=== PATIENT | male | born 1975 | race Caucasian/White ===

== ENCOUNTER 2016-05-02 13:30 | Inpatient (IN) | payer MEDICARE, MEDICAID ==
--- NOTE | 2016-05-02 14:08 | ED ---
General Adult HPI - General Chief complaint: Psychiatric Symptoms Stated complaint: mental health Time Seen by Provider: 05/02/16 14:00 Source: patient, RN notes reviewed Mode of arrival: ambulatory Limitations: no limitations - History of Present Illness Initial comments: Patient 41-year-old male who presents emergency room today with a chief complaint of suicidal ideation. He does admit this been hearing voices. He states started approximately 2-3 days ago. He states the voices are telling him that he can get away with murder. He states not having thoughts of specifically harming anyone. He states he is having thoughts of hurting himself. He states he would take a bunch of pills. Patient has been on his medications as prescribed. He states that he does have a therapist psychiatrist that he does see. Patient denies any other physical complaints. Patient denies any recent fever, chills, shortness of breath, chest pain, back pain, abdominal pain, nausea or vomiting, numbness or tingling, dysuria or hematuria, constipation or diarrhea, headaches or visual changes, or any other complaints. - Related Data Home Medications Medication Instructions Recorded Confirmed Mirtazapine [Remeron] 45 mg PO HS 02/28/16 05/02/16 Atorvastatin [Lipitor] 20 mg PO DAILY 05/02/16 05/02/16 Omeprazole 40 mg PO DAILY 05/02/16 05/02/16 Venlafaxine HCl ER [Effexor XR] 300 mg PO DAILY 05/02/16 05/02/16 Allergies Allergy/AdvReac Type Severity Reaction Status Date / Time codeine Allergy Swelling Verified 05/02/16 14:31 furosemide [From Lasix] Allergy Rash/Hives Verified 05/02/16 14:31 haloperidol [From Haldol] Allergy Unknown Verified 05/02/16 14:31 haloperidol lactate Allergy Unknown Verified 05/02/16 14:31 [From Haldol] prochlorperazine edisylate Allergy Swelling Verified 05/02/16 14:31 [From Compazine] prochlorperazine maleate Allergy Swelling Verified 05/02/16 14:31 [From Compazine] milk AdvReac Severe Diarrhea Verified 05/02/16 14:31 Milk Containing Products AdvReac Severe Diarrhea Verified 05/02/16 14:31 Review of Systems ROS Statement: Those systems with pertinent positive or pertinent negative responses have been documented in the HPI. ROS Other: All systems not noted in ROS Statement are negative. Past Medical History Past Medical History: COPD, Seizure Disorder Additional Past Medical History / Comment(s): History of seizures-per patient, his last seizure was in 2011, Hepatitis C, Degenerative disc disease in back, possible arthritis in knees, hips and arms. History of Any Multi-Drug Resistant Organisms: None Reported Past Surgical History: Appendectomy Additional Past Surgical History / Comment(s): Appendectomy-1996, eye surgery- 1998 Past Anesthesia/Blood Transfusion Reactions: No Reported Reaction Past Psychological History: Anxiety, Bipolar, Depression Smoking Status: Current every day smoker Past Alcohol Use History: Rare Additional Past Alcohol Use History / Comment(s): Patient reports he drinks approximately 4 times a year-last drink per patient was this passed wednesday. 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 pt states that he is buying them off the street - Past Family History Brother(s) Additional Family Medical History / Comment(s): Chronic alcoholism Sister(s) Additional Family Medical History / Comment(s): Chronic alcoholism Daughter(s) Additional Family Medical History / Comment(s): One daughter healthy Son(s) Additional Family Medical History / Comment(s): One son healthy Father History Unknown: Yes Family Medical History: AICD/Pacemaker, Myocardial Infarction ([place]) Additional Family Medical History / Comment(s): Schizophrenia. Per patient, his father at the age of 59 Mother History Unknown: Yes Family Medical History: No Reported History Additional Family Medical History / Comment(s): HPV General Exam - General Exam Comments Initial Comments: General: The patient is awake and alert, in no distress, and does not appear acutely ill. Eye: Pupils are equal, round and reactive to light, extra-ocular movements are intact. No nystagmus. There is normal conjunctiva bilaterally. No signs of icterus. Ears, nose, mouth and throat: There are moist mucous membranes and no oral lesions. Neck: The neck is supple, there is no tenderness or JVD. Cardiovascular: There is a regular rate and rhythm. No murmur, rub or gallop is appreciated. Respiratory: Lungs are clear to auscultation, respirations are non-labored, breath sounds are equal. No wheezes, stridor, rales, or rhonchi. Musculoskeletal: Normal ROM, no tenderness. Strength 5/5. Sensation intact. Pulses equal bilaterally 2+. Neurological: A&O x 3. CN II-XII intact, There are no obvious motor or sensory deficits. Coordination appears grossly intact. Speech is normal. Skin: Skin is warm and dry and no rashes or lesions are noted. Psychiatric: Cooperative, appropriate mood & affect, normal judgment. Limitations: no limitations Course Vital Signs 05/02/16 13:49 Temperature 98.5 F Pulse Rate 102 H Respiratory 20 Rate Blood Pressure 130/79 O2 Sat by Pulse 99 Oximetry Medical Decision Making - Medical Decision Making Patient's been seen by mental health. They recommend the patient be admitted. - Lab Data Lab Results 05/02/16 Range/Units 14:19 Urine Opiates Screen Not Detected (NotDetected) Ur Oxycodone Screen Not Detected (NotDetected) Urine Methadone Screen Not Detected (NotDetected) Ur Propoxyphene Screen Not Detected (NotDetected) Ur Barbiturates Screen Not Detected (NotDetected) U Tricyclic Antidepress Not Detected (NotDetected) Ur Phencyclidine Scrn Not Detected (NotDetected) Ur Amphetamines Screen Not Detected (NotDetected) U Methamphetamines Scrn Not Detected (NotDetected) U Benzodiazepines Scrn Detected H (NotDetected) Urine Cocaine Screen Not Detected (NotDetected) U Marijuana (THC) Screen Not Detected (NotDetected) Disposition Clinical Impression: Suicidal ideation Disposition: TRANSFER TO PSYCH HOSP/UNIT Condition: Stable Referrals: None,Stated [Primary Care Provider] - 1-2 days Time of Disposition: 15:46
[2016-05-02] MEDS ORDERED: ZIPRASIDONE 20 MG VIAL IM PRN (17:31)
[2016-05-02] MEDS ORDERED: MAGNESIUM HYDROXIDE 2,400 MG/10 ML CUP PO PRN (17:31)
[2016-05-02] MEDS ORDERED: ACETAMINOPHEN TAB 325 MG TAB PO PRN (17:31)
[2016-05-02] MEDS ORDERED: MAG HYDROX/AL HYDROX/SIMETH 30 ML CUP PO PRN (17:31)
[2016-05-02] MEDS: NICOTINE 14MG/24HR PATCH TRANSDERM SCH (18:13)
[2016-05-02] MEDS ORDERED: LORazepam 2 MG/ML SYRINGE IM PRN (23:39)
[2016-05-02] MEDS: MIRTAZAPINE 15 MG TAB PO SCH (23:41)
[2016-05-03] MEDS: LORazepam 1 MG TAB PO PRN ×3 (00:23→16:14)
[2016-05-03] MEDS: PANTOPRAZOLE 40 MG TABLET PO SCH (08:30)
[2016-05-03] MEDS: ATORVASTATIN 20 MG TAB PO SCH (08:30)
[2016-05-03] MEDS: NICOTINE 14MG/24HR PATCH TRANSDERM SCH (08:30)
[2016-05-03] MEDS: VENLAFAXINE HCL ER 150 MG CAP PO SCH (08:31)
[2016-05-03 10:56] LABS: Basophils # (A) 0.1 k/uL (0-0.2); Basophils % (A) 1 %; CH 29.3; CHCM 33.1; Eosinophils # (A) 0.7 k/uL (0-0.7); Eosinophils % (A) 5 %; HGB 13.7 gm/dL (13.0-17.5); Luc # (Auto) 0.14; Luc % (Auto) 1; Lymphocytes # (A) 3.1 k/uL (1.0-4.8); Lymphocytes % (A) 22 %; MCH 28.4 pg (25.0-35.0); MCHC 31.9 g/dL (31.0-37.0); MCV 88.9 fL (80.0-100.0); Mean Platelet Volume 9.6; Monocytes # (A) 0.7 k/uL (0-1.0); Monocytes % (A) 5 %; Neutrophils # (A) 9.4 k/uL (1.3-7.7); Neutrophils % (A) 67 %; RBC 4.84 m/uL (4.30-5.90); RDW 13.3 % (11.5-15.5); WBC 14.1 k/uL (3.8-10.6); WBC (Perox) 14.46
[2016-05-03 11:06] LABS: ALT 67 U/L (21-72); AST 34 U/L (17-59); Alkaline Phosphatase 146 U/L (38-126); Anion Gap 11 mmol/L; Blood Urea Nitrogen 13 mg/dL (9-20); Calcium 9.5 mg/dL (8.4-10.2); Carbon Dioxide 25 mmol/L (22-30); Chloride 107 mmol/L (98-107); Glucose 100 mg/dL (74-99); Non-African American GFR(MDRD) >60 (>60 ml/min/1.73 sqM); Potassium 4.2 mmol/L (3.5-5.1); Sodium 143 mmol/L (137-145); Total Bilirubin 0.4 mg/dL (0.2-1.3); Total Protein 7.1 g/dL (6.3-8.2)
--- NOTE | 2016-05-03 16:06 | P.HP ---
Psychiatric H&P - . H&P Date: 05/03/16 History & Physical: Allergies Allergy/AdvReac Type Severity Reaction Status Date / Time codeine Allergy Swelling Verified 05/03/16 08:58 furosemide [From Lasix] Allergy Rash/Hives Verified 05/03/16 08:58 haloperidol [From Haldol] Allergy Unknown Verified 05/03/16 08:58 haloperidol lactate Allergy Unknown Verified 05/03/16 08:58 [From Haldol] prochlorperazine edisylate Allergy Swelling Verified 05/03/16 08:58 [From Compazine] prochlorperazine maleate Allergy Swelling Verified 05/03/16 08:58 [From Compazine] milk AdvReac Severe Diarrhea Verified 05/03/16 08:58 Milk Containing Products AdvReac Severe Diarrhea Verified 05/03/16 08:58 Vital Signs Temp 98.1 F 05/03/16 06:31 Pulse 91 05/03/16 06:31 Resp 16 05/03/16 06:31 BP 125/74 05/03/16 06:31 Pulse Ox 99 05/02/16 13:49 Intake & Output 05/02/16 05/03/16 05/03/16 18:59 06:59 18:59 Weight 120.9 kg 121.6 kg Laboratory Last Values WBC 14.1 k/uL (3.8-10.6) H 05/03/16 10:32 RBC 4.84 m/uL (4.30-5.90) 05/03/16 10:32 Hgb 13.7 gm/dL (13.0-17.5) 05/03/16 10:32 Hct 43.0 % (39.0-53.0) 05/03/16 10:32 MCV 88.9 fL (80.0-100.0) 05/03/16 10:32 MCH 28.4 pg (25.0-35.0) 05/03/16 10:32 MCHC 31.9 g/dL (31.0-37.0) 05/03/16 10:32 RDW 13.3 % (11.5-15.5) 05/03/16 10:32 Plt Count 193 k/uL (150-450) 05/03/16 10:32 Neutrophils % 67 % 05/03/16 10:32 Lymphocytes % 22 % 05/03/16 10:32 Monocytes % 5 % 05/03/16 10:32 Eosinophils % 5 % 05/03/16 10:32 Basophils % 1 % 05/03/16 10:32 Neutrophils # 9.4 k/uL (1.3-7.7) H 05/03/16 10:32 Lymphocytes # 3.1 k/uL (1.0-4.8) 05/03/16 10:32 Monocytes # 0.7 k/uL (0-1.0) 05/03/16 10:32 Eosinophils # 0.7 k/uL (0-0.7) 05/03/16 10:32 Basophils # 0.1 k/uL (0-0.2) 05/03/16 10:32 Sodium 143 mmol/L (137-145) 05/03/16 10:32 Potassium 4.2 mmol/L (3.5-5.1) 05/03/16 10:32 Chloride 107 mmol/L (98-107) 05/03/16 10:32 Carbon Dioxide 25 mmol/L (22-30) 05/03/16 10:32 Anion Gap 11 mmol/L 05/03/16 10:32 BUN 13 mg/dL (9-20) 05/03/16 10:32 Creatinine 0.92 mg/dL (0.66-1.25) 05/03/16 10:32 Est GFR (MDRD) Af Amer >60 (>60 ml/min/1.73 sqM) 05/03/16 10:32 Est GFR (MDRD) Non-Af >60 (>60 ml/min/1.73 sqM) 05/03/16 10:32 Glucose 100 mg/dL (74-99) H 05/03/16 10:32 Calcium 9.5 mg/dL (8.4-10.2) 05/03/16 10:32 Total Bilirubin 0.4 mg/dL (0.2-1.3) 05/03/16 10:32 AST 34 U/L (17-59) 05/03/16 10:32 ALT 67 U/L (21-72) 05/03/16 10:32 Alkaline Phosphatase 146 U/L (38-126) H 05/03/16 10:32 Total Protein 7.1 g/dL (6.3-8.2) 05/03/16 10:32 Albumin 4.0 g/dL (3.5-5.0) 05/03/16 10:32 TSH 1.160 mIU/L (0.465-4.680) 05/03/16 10:32 Urine Opiates Screen Not Detected (NotDetected) 05/02/16 14:19 Ur Oxycodone Screen Not Detected (NotDetected) 05/02/16 14:19 Urine Methadone Screen Not Detected (NotDetected) 05/02/16 14:19 Ur Propoxyphene Screen Not Detected (NotDetected) 05/02/16 14:19 Ur Barbiturates Screen Not Detected (NotDetected) 05/02/16 14:19 U Tricyclic Antidepress Not Detected (NotDetected) 05/02/16 14:19 Ur Phencyclidine Scrn Not Detected (NotDetected) 05/02/16 14:19 Ur Amphetamines Screen Not Detected (NotDetected) 05/02/16 14:19 U Methamphetamines Scrn Not Detected (NotDetected) 05/02/16 14:19 U Benzodiazepines Scrn Detected (NotDetected) H 05/02/16 14:19 Urine Cocaine Screen Not Detected (NotDetected) 05/02/16 14:19 U Marijuana (THC) Screen Not Detected (NotDetected) 05/02/16 14:19 05/03/16 15:56 IDENTIFYING DATA: 41-year-old male patient HPI: Patient admitted to the inpatient psychiatric unit [facility] on a voluntary basis with depression and thoughts of suicide. Patient states he is that he's been depressed for over the last months time. He says life stressors are being away from his kids and his kids had recently gotten in a car accident, they are okay. He relays that he was starting to have thoughts of suicide. He admits to racing thoughts and has been hearing things like his name being called and voices telling him that he can get away with it and it won 't show up on his drug test. He states that the voices do not command him to do bad things. He says he is also feels like he's had no filter lately and he' s been impulsive. He does describe racing thoughts at night and difficulty with sleep. PAST PSYCHIATRIC HISTORY: Patient doesn't history of bipolar disorder, he states the depressive episodes greatly outnumber the manic episodes by about 10- 1. He is most recently been on Effexor XR 300 mg daily and Remeron 45 motives at bedtime. He was on Depakote in the past which she did not like because of side effects. Most recently is seeing Dr. Deena castanead at [facility] and a counselor Debby. He was on Suboxone and he's been off of that for about a month, he was tapered off. He has tried Seroquel in the past which did help him with sleep he took up to 300 mg which made him feel groggy. PMH: COPD, degenerative disc disease, gastroesophageal reflux disease, hypertension, hypercholesterolemia ALLERGIES: Codeine, Haldol, Lasix, Compazine, milk containing products MEDICATIONS: Tylenol when necessary, Maalox when necessary, Lipitor, Ativan when necessary, milk of magnesia when necessary, Remeron, Effexor XR, Habitrol, Geodon when necessary CHEMICAL DEPENDENCY HISTORY: Patient reports history of heroin use daily in the past, he's been clean for about 2 years. He plans on keeping his sobriety. FAMILY PSYCHIATRIC HISTORY: Dad with schizophrenia. FAMILY CHEMICAL DEPENDENCY HISTORY: Brothers with alcoholism SOCIAL HISTORY: He reports that he has 2 children who are in [place] with her mom. They are 18 and 16. He does keep in some contact with his daughter. He is , his is in snf. He does keep in contact with her. He has 2 previous marriages which ended in divorce. He lives in his own apartment. He is currently on disability for mental health. MENTAL STATUS EXAM: He is alert and cooperative with the interview. His speech is fluent, not rapid or pressured. Thought processes are organized. His mood is described as "pretty decent." He denies any thoughts of harm to self or others. He denies any current hallucinations. He does state that in his apartment he thought he saw a ghost/shadow. He also reports some recent auditory hallucinations as above in the history of present illness. Cognitively , he appears very grossly intact. His insight is adequate, judgment shows evidence of recent impairment. STRENGTHS/WEAKNESSES: Strengths-seeking treatment; weaknesses-coping skills INTELLECTUAL FUNCTIONING: average IMPRESSIONS: AXIS I : Bipolar disorder, depressed with recent psychosis symptoms; history of opioid use disorder AXIS II: deferred AXIS III: COPD, degenerative disc disease, gastroesophageal reflux disease, hypertension, hypercholesterolemia AXIS IV: family AXIS V: 30 PLAN: patient admitted to the inpatient psychiatric unit [facility] on a voluntary basis with depression and thoughts of suicide. We'll monitor regarding any suicidal ideations. He'll be on SP 15 minute precautions. Baseline laboratory workup will be done the patient and medical consultation will be ordered. We will maintain Effexor XR and Remeron is current for depression. We will add Abilify 5 mg at bedtime to help with mood stability, augmentation regarding depression and recent psychosis symptoms. We will trial Abilify instead of Seroquel due to concerns of drug interaction with Seroquel prolonged QT interval. We will look into support systems. Dr. Paniagua will initiate care this patient starting tomorrow. Estimated length of stay is 5-7 days. Prognosis is guarded.
--- NOTE | 2016-05-03 19:53 | CONS ---
DATE OF CONSULTATION: 05/02/2016 SUBJECTIVE: A 41-year-old white male who presents with suicidal ideations for medical management consult. He states that he has been living alone by himself and he became very depressed, hearing voices telling him to hurt himself or others at which time he was brought to the hospital for admission. Medications the psychiatrist has him on includes: 1. Remeron 45 q.h.s. 2. Effexor-XR 300 daily. 3. He takes omeprazole 40 daily. 4. Lipitor 20 for dyslipidemia. 5. He smokes he is requesting nicotine patch. ALLERGIES: CODEINE, LASIX, HALDOL, COMPAZINE, MILK. REVIEW OF SYSTEMS: 14 point review of systems negative except as stated in the HPI. PAST MEDICAL HISTORY: History of nicotine addiction, seizure disorder, COPD, hepatitis C and lumbar degenerative disc disease, osteoarthritis of knees, hips and arms. SURGERIES: Appendectomy, and eye surgery, history of anxiety, bipolar depression. FAMILY HISTORY: Brother with alcoholism, sister with alcoholism. Daughter is healthy. Son is healthy. Father AICD pacemaker myocardial infarction. VITAL SIGNS: Temperature 98.2, pulse is 90s to 100 hundreds, respiratory rate 16 to 20, blood pressure 120s to 130s over 70s. O2 99% on room air. CARDIOVASCULAR: S1, S2. LUNGS: Mild wheeze x4. ENDOCRINE: BMI is over 40. PSYCHIATRY: Giving appropriate answers. VASCULAR: Normal dorsalis pedis, posterior tibial, and radial pulse. ASSESSMENT: 1. Suicidal ideations. 2. Chronic obstructive pulmonary disease. 3. Nicotine addiction. 4. Gastroesophageal reflux disease. 5. Dyslipidemia. 6. Possible chronic obstructive pulmonary disease. Nicotine patch. Monitor for other medical problems. Continue on Lipitor and Prilosec p.r.n. He appears to be stable at this time.
[2016-05-03] MEDS: MIRTAZAPINE 15 MG TAB PO SCH (20:53)
[2016-05-03] MEDS: IBUPROFEN 400 MG TAB PO PRN (20:53)
[2016-05-03] MEDS: ARIPiprazole 5 MG TAB PO SCH (20:53)
[2016-05-04] MEDS: LORazepam 1 MG TAB PO PRN ×2 (02:14→10:23)
[2016-05-04] MEDS: ATORVASTATIN 20 MG TAB PO SCH (09:44)
[2016-05-04] MEDS: VENLAFAXINE HCL ER 150 MG CAP PO SCH (09:46)
[2016-05-04] MEDS: NICOTINE 14MG/24HR PATCH TRANSDERM SCH (09:46)
[2016-05-04] MEDS: IBUPROFEN 400 MG TAB PO PRN ×2 (09:46→21:06)
[2016-05-04] MEDS: PANTOPRAZOLE 40 MG TABLET PO SCH (09:46)
--- NOTE | 2016-05-04 16:17 | P.PN ---
Progress Note - Text CLINICAL PROBLEMS: Mr. Phillips is a 41-year-old male who presented to unit voluntarily with complaints of depression and thoughts of suicide. I reviewed the medical records from [facility]. He has a diagnosis of opiate use disorder, major depression, sedative, hypnotic and anxiolytic use disorder as well as unspecified housing and economic problems. His outpatient psychiatrist tapered and discontinued Suboxone on 04/21/2016 because Mr. Ralph's urine drug screen was persistently positive for nonprescribed benzodiazepines. He stated that he sought admission because he was feeling more depressed and lonely. He stated if he didn't take action he was afraid that he may act out and hurt himself. He denied that his presentation was related to the taper of Suboxone. 24 HOUR EVENTS: He remains on suicide precautions with 15 minute checks. He has not shown any self-harm or aggressive behaviors. He has been compliant with treatment. EXAMINATION: He presented as a casually groomed moderately obese 41-year-old male wearing a john over his head. He maintained eye contact and attended to the interview. He had no distinguishing features or prominent physical abnormalities. He had a blunted but bright facial expression. He was alert and oriented to person, place and time. He showed no abnormality of psychomotor behavior he had a slow and steady gait. His speech was spontaneous with normal rate, rhythm and volume. His affect was depressed but stable and appropriate. He denied current suicidal ideation or wishes. He denied homicidal ideation. He expressed depressive cognitions including hopelessness and helplessness. He denied obsessions or ruminations. He denied ideas of reference and did not express paranoid ideation. He expressed no delusional beliefs. His thinking was abstract and his clothes associations were coherent and logical. He denied hallucinations and did not appear to be responding to internal stimuli. PERTINENT DATA: His urine drug screen was positive for benzodiazepines. His alkaline phosphatase was elevated 146. Dr. Mccallum started Abilify for augmentation of his antidepressants; he denied side effects to the Abilify. ASSESSMENT: He is a 41-year-old man who has a history of opiate use disorder and sedatives, hypnotic and anxiolytic use disorder. He presented with complaints of depression and suicidal ideation that he attributes to loneliness and lack of social supports. Of depression and suicidal ideation rapidly remitted following admission. He is minimizing his substance use and denies he has a problem with benzodiazepines. PLAN: Continue Abilify 5 mg at bedtime, Remeron 45 mg at bedtime and Effexor 300 mg daily. Continue 15 minute checks. Encourage participation in therapeutic groups and activities. Evaluate clinical status and response to treatment on a daily basis.
[2016-05-04] MEDS: MIRTAZAPINE 15 MG TAB PO SCH (21:06)
[2016-05-04] MEDS: ARIPiprazole 5 MG TAB PO SCH (21:06)
[2016-05-05] MEDS: LORazepam 1 MG TAB PO PRN (02:40)
[2016-05-05 03:11] VITALS: BP 141/81; PULSE 84; RESP 20; TEMP 97.8
[2016-05-05] MEDS: VENLAFAXINE HCL ER 150 MG CAP PO SCH (08:34)
[2016-05-05] MEDS: ATORVASTATIN 20 MG TAB PO SCH (08:34)
[2016-05-05] MEDS: NICOTINE 14MG/24HR PATCH TRANSDERM SCH (08:34)
[2016-05-05] MEDS: PANTOPRAZOLE 40 MG TABLET PO SCH (08:34)
--- NOTE | 2016-05-05 11:18 | P.DS ---
Providers Date of admission: 05/02/16 16:38 Attending physician: Bandar Paniagua MD Consults: 05/02/16 17:31 Consult Physician Routine Consulting Provider: Bandar Camacho Consult Reason/Comments: follow up H & P Do you want consulting provider notified?: Yes 05/04/16 14:23 Consult Physician Routine Consulting Provider: Bandar Camacho Consult Reason/Comments: Patient requesting opiate pain medication for back pain. Do you want consulting provider notified?: Yes Primary care physician: Stated None - Discharge Diagnosis(es) (1) Sedative, hypnotic or anxiolytic abuse Current Visit: Yes Status: Chronic (2) Suicidal ideation Current Visit: Yes Status: Resolved (3) Major depressive disorder Current Visit: No Status: Resolved (4) Opiate abuse, episodic Current Visit: No Status: Chronic Hospital Course: He is a 41-year-old male who presented to the ED with complaints of depression and thoughts of suicide. He complained of being depressed for several months prior to admission and the depression becoming worse over the holidays. He attributes loneliness, social isolation and estrangement from his children as the contributors to his depression. He is established with [facility]. His diagnoses include opiate use disorder, major depression, sedative, hypnotic and anxiolytic use disorder as well as unspecified housing and economic problems. His outpatient psychiatrist recently tapered and discontinued Suboxone because his urine drug screen not persistently positive for nonprescribed benzodiazepines. We admitted him to the psychiatric unit care of this typewriter repairer. He received a biopsychosocial assessment. The windows consultant alarm adjuster completed a physical exam and medical history. The alarm adjuster diagnoses included chronic obstructive pulmonary disease, gastroesophageal reflux disease and dyslipidemia. We continued his outpatient prescriptions of mirtazapine 45 mg at bedtime and venlafaxine 300 mg daily. We added Abilify 5 mg at bedtime for augmentation of his antidepressants. He participated in therapeutic groups and activities. He posed no management problem and demonstrated no disruptive or self-harm behaviors. His mood quickly improved. At the time of discharge he denied feeling depressed or having thoughts of or suicide. He wished to be discharged apart because he enrolled in a computer class at [facility]. He plans to continue mental health treatment through [facility]. Patient Condition at Discharge: Good Plan - Discharge Summary New Discharge Prescriptions: ARIPiprazole [Abilify] 5 mg PO HS #30 tab Nicotine 14Mg/24Hr Patch [Habitrol] 1 patch TRANSDERM DAILY #7 patch Discharge Medication List Mirtazapine [Remeron] 45 mg PO HS 02/28/16 [History] Atorvastatin [Lipitor] 20 mg PO DAILY 05/02/16 [History] Omeprazole 40 mg PO DAILY 05/02/16 [History] Venlafaxine HCl ER [Effexor XR] 300 mg PO DAILY 05/02/16 [History] ARIPiprazole [Abilify] 5 mg PO HS #30 tab 05/05/16 [Rx] Nicotine 14Mg/24Hr Patch [Habitrol] 1 patch TRANSDERM DAILY #7 patch 05/05/16 [ Rx] Follow up Appointment(s)/Referral(s): None,Stated [Primary Care Provider] - 1-2 days Discharge Disposition: HOME SELF-CARE
== END 2016-05-05 13:34 | disposition home or self-care (01) | DRG 897 ==
LOC: EC 13:30 → 3MHU 16:38
PROVIDERS: ADMIT Psychiatry & Neurology Psychiatry; ATTEND Psychiatry & Neurology Psychiatry
DX: F13.10 Sedative, hypnotic or anxiolytic abuse, uncomplicated (principal); F11.10 Opioid abuse, uncomplicated; R45.851 Suicidal ideations; F31.9 Bipolar disorder, unspecified; J44.9 Chronic obstructive pulmonary disease, unspecified; K21.9 Gastro-esophageal reflux disease without esophagitis; E78.5 Hyperlipidemia, unspecified; E78.00 Pure hypercholesterolemia, unspecified; I10 Essential (primary) hypertension; F17.200 Nicotine dependence, unspecified, uncomplicated; M17.0 Bilateral primary osteoarthritis of knee; M16.0 Bilateral primary osteoarthritis of hip; G40.909 Epilepsy, unspecified, not intractable, without status epilepticus; B19.20 Unspecified viral hepatitis C without hepatic coma; M51.36 Other intervertebral disc degeneration, lumbar region; Z59.9 Problem related to housing and economic circumstances, unspecified; Z63.8 Other specified problems related to primary support group; Z81.8 Family history of other mental and behavioral disorders
CPT/HCPCS: 80053; 80306; 82075; 84443; 85025; 99285

== ENCOUNTER 2016-05-20 05:46 | Emergency (ER) | payer OTHER ==
[2016-05-20 05:52] VITALS: BP 130/76; PULSE 108; RESP 18; TEMP 98
--- NOTE | 2016-05-20 06:25 | ED ---
General Adult HPI - General Chief complaint: Extremity Injury, Upper Stated complaint: hand injury Time Seen by Provider: 05/20/16 06:20 Source: patient, RN notes reviewed, old records reviewed Mode of arrival: ambulatory Limitations: no limitations - History of Present Illness Initial comments: This is a 41-year-old male here for evaluation of hand pain. Patient didn't suffer right hand injury. Patient denies any other injury or trauma. Patient admits some alcohol intoxication but nothing specific. Patient has done this is before with no fractures noted. Patient took nothing for pain, injury happened a few hours prior to arrival - Related Data Home Medications Medication Instructions Recorded Confirmed Mirtazapine [Remeron] 45 mg PO HS 02/28/16 05/02/16 Atorvastatin [Lipitor] 20 mg PO DAILY 05/02/16 05/02/16 Omeprazole 40 mg PO DAILY 05/02/16 05/02/16 Venlafaxine HCl ER [Effexor XR] 300 mg PO DAILY 05/02/16 05/02/16 Previous Rx's Medication Instructions Recorded ARIPiprazole [Abilify] 5 mg PO HS #30 tab 05/05/16 Nicotine 14Mg/24Hr Patch [Habitrol] 1 patch TRANSDERM DAILY #7 patch 05/05/16 Allergies Allergy/AdvReac Type Severity Reaction Status Date / Time codeine Allergy Swelling Verified 05/20/16 05:52 furosemide [From Lasix] Allergy Rash/Hives Verified 05/20/16 05:52 haloperidol [From Haldol] Allergy Unknown Verified 05/20/16 05:52 haloperidol lactate Allergy Unknown Verified 05/20/16 05:52 [From Haldol] prochlorperazine edisylate Allergy Swelling Verified 05/20/16 05:52 [From Compazine] prochlorperazine maleate Allergy Swelling Verified 05/20/16 05:52 [From Compazine] milk AdvReac Severe Diarrhea Verified 05/20/16 05:52 Milk Containing Products AdvReac Severe Diarrhea Verified 05/20/16 05:52 Review of Systems ROS Statement: Those systems with pertinent positive or pertinent negative responses have been documented in the HPI. ROS Other: All systems not noted in ROS Statement are negative. Past Medical History Past Medical History: COPD, Seizure Disorder Additional Past Medical History / Comment(s): History of seizures-per patient, his last seizure was in 2011, Hepatitis C, Degenerative disc disease in back, possible arthritis in knees, hips and arms. History of Any Multi-Drug Resistant Organisms: None Reported Past Surgical History: Appendectomy Additional Past Surgical History / Comment(s): Appendectomy-1996, eye surgery- 1998 Past Anesthesia/Blood Transfusion Reactions: No Reported Reaction Past Psychological History: Anxiety, Bipolar, Depression Smoking Status: Current every day smoker Past Alcohol Use History: Rare Additional Past Alcohol Use History / Comment(s): Patient reports he drinks approximately 4 times a year-last drink per patient was this passed wednesday. 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 pt states that he is buying them off the street - Past Family History Brother(s) Additional Family Medical History / Comment(s): Chronic alcoholism Sister(s) Additional Family Medical History / Comment(s): Chronic alcoholism Daughter(s) Additional Family Medical History / Comment(s): One daughter healthy Son(s) Additional Family Medical History / Comment(s): One son healthy Father History Unknown: Yes Family Medical History: AICD/Pacemaker, Myocardial Infarction ([place]) Additional Family Medical History / Comment(s): Schizophrenia. Per patient, his father at the age of 59 Mother History Unknown: Yes Family Medical History: No Reported History Additional Family Medical History / Comment(s): HPV General Exam - General Exam Comments Initial Comments: Mild bruising right hand Limitations: no limitations General appearance: alert, in no apparent distress Head exam: Present: atraumatic, normocephalic, normal inspection Eye exam: Present: normal appearance, PERRL, EOMI. Absent: scleral icterus, conjunctival injection, periorbital swelling ENT exam: Present: normal exam, mucous membranes moist Neck exam: Present: normal inspection. Absent: tenderness, meningismus, lymphadenopathy Respiratory exam: Present: normal lung sounds bilaterally. Absent: respiratory distress, wheezes, rales, rhonchi, stridor Cardiovascular Exam: Present: regular rate, normal rhythm, normal heart sounds. Absent: systolic murmur, diastolic murmur, rubs, gallop, clicks GI/Abdominal exam: Present: soft, normal bowel sounds. Absent: distended, tenderness, guarding, rebound, rigid Extremities exam: Present: normal inspection, full ROM, normal capillary refill. Absent: tenderness, pedal edema, joint swelling, calf tenderness Back exam: Present: normal inspection Neurological exam: Present: alert, oriented X3, CN II-XII intact Psychiatric exam: Present: normal affect, normal mood Skin exam: Present: warm, dry, intact, normal color. Absent: rash Course Vital Signs 05/20/16 05:50 Temperature 98 F Pulse Rate 108 H Respiratory 18 Rate Blood Pressure 130/76 O2 Sat by Pulse 98 Oximetry Medical Decision Making - Medical Decision Making 41 LDR for evaluation of hand pain. Patient is right hand contusion, x-ray negative for fracture. Patient will be discharged home Motrin and Tylenol for pain - Radiology Data Radiology results: report reviewed (X-ray hand is negative for fracture), image reviewed Disposition Clinical Impression: Contusion of right hand Disposition: HOME SELF-CARE Condition: Good Instructions: Contusion in Adults (ED) Referrals: None,Stated [Primary Care Provider] - 1-2 days
--- NOTE | 2016-05-20 06:59 | XR ---
EXAMINATION TYPE: XR hand complete RT DATE OF EXAM: 05/20/2016 6:16 AM COMPARISON: NONE HISTORY: Pain TECHNIQUE: 3 views FINDINGS: I see no acute fracture nor dislocation. There is slight deformity of fifth metacarpal rela buddy to old healed fracture. There are no erosions. IMPRESSION: No acute abnormality of the right hand.
== END 2016-05-20 06:37 | disposition home or self-care (01) ==
LOC: EC 05:46
DX: S60.221A Contusion of right hand, initial encounter (principal); X58.XXXA Exposure to other specified factors, initial encounter; F32.9 Major depressive disorder, single episode, unspecified; Z79.899 Other long term (current) drug therapy; Z88.5 Allergy status to narcotic agent; Z88.8 Allergy status to other drugs, medicaments and biological substances; G40.909 Epilepsy, unspecified, not intractable, without status epilepticus; J44.9 Chronic obstructive pulmonary disease, unspecified; F41.9 Anxiety disorder, unspecified; F17.200 Nicotine dependence, unspecified, uncomplicated
CPT/HCPCS: 99284

== ENCOUNTER → 2016-06-04 | Outpatient (CLI) | payer OTHER ==
--- NOTE | 2016-06-04 10:45 | ECHOF ---
Referral Reason:R42 dizziness R06.02 sob MEASUREMENTS -------- HEIGHT: 177.8 cm WEIGHT: 120.2 kg BP: 141/85 RVIDd: 2.9 cm (< 3.3) IVSd: 1.0 cm (0.6 - 1.1) LVIDd: 2.9 cm (3.9 - 5.3) LVPWd: 1.2 cm (0.6 - 1.1) IVSs: 1.6 cm LVIDs: 2.1 cm LVPWs: 1.7 cm LA Diam: 3.4 cm (2.7 - 3.8) Ao Diam: 3.1 cm (2.0 - 3.7) AV Cusp: 2.3 cm (1.5 - 2.6) MV EXCURSION: 13.666 mm (> 18.000) MV EF SLOPE: 55 mm/s (70 - 150) EPSS: 0.6 cm MV E Suman: 0.77 m/s MV DecT: 253 ms MV A Suman: 0.93 m/s MV E/A Ratio: 0.83 FINDINGS -------- Sinus rhythm. This was a technically good study. The left ventricular size is normal. There is borderline concentric left ventricular hypertrophy. Overall left ventricular systolic function is normal with, an EF between 60 - 65 %. The right ventricle is normal in size and function. The left atrium is normal in size. The right atrium is normal in size. The aortic valve is trileaflet and appears structurally normal. Mild mitral annular calcification present. The tricuspid valve appears structurally normal. No regurgitation noted The pulmonic valve was not well visualized. CONCLUSIONS -------- 1. Sinus rhythm. 2. Mild mitral annular calcification present. 3. The tricuspid valve appears structurally normal. 4. The pulmonic valve was not well visualized. 5. This was a technically good study. 6. The left ventricular size is normal. 7. There is borderline concentric left ventricular hypertrophy. 8. Overall left ventricular systolic function is normal with, an EF between 60 - 65 %. 9. The right ventricle is normal in size and function. 10. The left atrium is normal in size. 11. The right atrium is normal in size. 12. The aortic valve is trileaflet and appears structurally normal. CLINICAL MARKETING MANAGER: Esther Fitzgerald [facility]
== END | disposition home or self-care (01) ==
LOC: RADECHMAIN 08:35
PROVIDERS: ATTEND Nurse Practitioner
DX: I34.0 Nonrheumatic mitral (valve) insufficiency (principal)
CPT/HCPCS: 93306

== ENCOUNTER 2016-07-01 00:44 | Inpatient (IN) | payer OTHER ==
[2016-07-01] MEDS ORDERED: ONDANSETRON 4 MG/2 ML VIAL IVP STA ×2 (00:58→02:28)
[2016-07-01] MEDS ORDERED: MORPHINE SULFATE 4 MG/ML SYRINGE IV STA ×2 (00:58→02:28)
[2016-07-01] MEDS ORDERED: RX INFO: IV CONTRAST WAS GIVEN 1 EACH MISC MISCELLANE PRN (00:58)
[2016-07-01] MEDS ORDERED: SODIUM CHLORIDE 0.9% 1,000 ML IV STA (00:58)
[2016-07-01 01:11] LABS: ALT 251 U/L (21-72); AST 187 U/L (17-59); Alkaline Phosphatase 366 U/L (38-126); Anion Gap 13 mmol/L; Blood Urea Nitrogen 16 mg/dL (9-20); Calcium 9.6 mg/dL (8.4-10.2); Carbon Dioxide 26 mmol/L (22-30); Chloride 105 mmol/L (98-107); Glucose 176 mg/dL (74-99); Non-African American GFR(MDRD) >60 (>60 ml/min/1.73 sqM); Potassium 3.5 mmol/L (3.5-5.1); Sodium 144 mmol/L (137-145); Total Bilirubin 1.9 mg/dL (0.2-1.3); Total Protein 7.5 g/dL (6.3-8.2)
[2016-07-01 01:23] LABS: CH 29.8; CHCM 33.7; HCT 45.3 % (39.0-53.0); HDW 2.36; HGB 15.1 gm/dL (13.0-17.5); MCH 29.5 pg (25.0-35.0); MCHC 33.3 g/dL (31.0-37.0); MCV 88.8 fL (80.0-100.0); Mean Platelet Volume 9.6; RDW 14.1 % (11.5-15.5); WBC (Perox) 31.69
--- NOTE | 2016-07-01 01:23 | ED ---
Abdominal Pain HPI - General Chief Complaint: Abdominal Pain Stated Complaint: Vomiting,abd pain Time Seen by Provider: 07/01/16 00:52 Source: patient, EMS Mode of arrival: EMS Limitations: no limitations - History of Present Illness Initial Comments: This patient is a 41-year-old man who presents to be evaluated for diffuse abdominal pain that started approximately 4 hours ago. The patient states that it came on while he was at rest. He indicates his entire abdomen. She states it feels like a severe cramping or aching. He states that its worse if he tries to move or if he touches his abdomen. Patient has not discovered anything that helps it. He has had some associated nausea but no vomiting. Patient has not noted any change in urination today. He has not had any change in bowel movements, he states the last one was just after the pain had started. MD Complaint: abdominal pain Onset/Timin -: hour(s) Location: diffuse Radiation: none Severity: severe Quality: cramping Consistency: constant Improves With: nothing Worsens With: nothing Associated Symptoms: nausea - Related Data Home Medications Medication Instructions Recorded Confirmed Mirtazapine [Remeron] 45 mg PO HS 02/28/16 05/02/16 Atorvastatin [Lipitor] 20 mg PO DAILY 05/02/16 05/02/16 Omeprazole 40 mg PO DAILY 05/02/16 05/02/16 Venlafaxine HCl ER [Effexor XR] 300 mg PO DAILY 05/02/16 05/02/16 Previous Rx's Medication Instructions Recorded ARIPiprazole [Abilify] 5 mg PO HS #30 tab 05/05/16 Nicotine 14Mg/24Hr Patch [Habitrol] 1 patch TRANSDERM DAILY #7 patch 05/05/16 Allergies Allergy/AdvReac Type Severity Reaction Status Date / Time codeine Allergy Swelling Verified 05/20/16 05:52 furosemide [From Lasix] Allergy Rash/Hives Verified 05/20/16 05:52 haloperidol [From Haldol] Allergy Unknown Verified 05/20/16 05:52 haloperidol lactate Allergy Unknown Verified 05/20/16 05:52 [From Haldol] prochlorperazine edisylate Allergy Swelling Verified 05/20/16 05:52 [From Compazine] prochlorperazine maleate Allergy Swelling Verified 05/20/16 05:52 [From Compazine] milk AdvReac Severe Diarrhea Verified 05/20/16 05:52 Milk Containing Products AdvReac Severe Diarrhea Verified 05/20/16 05:52 Review of Systems ROS Statement: Those systems with pertinent positive or pertinent negative responses have been documented in the HPI. ROS Other: All systems not noted in ROS Statement are negative. Constitutional: Denies: fever, chills Respiratory: Denies: cough, dyspnea Cardiovascular: Denies: chest pain, palpitations, edema, syncope Gastrointestinal: Reports: abdominal pain, nausea. Denies: vomiting, diarrhea, constipation, melena, hematochezia Genitourinary: Denies: dysuria, hematuria, testicular pain, testicular mass Musculoskeletal: Denies: back pain Skin: Denies: rash Neurological: Denies: headache, weakness, numbness Past Medical History Past Medical History: COPD, Seizure Disorder Additional Past Medical History / Comment(s): History of seizures-per patient, his last seizure was in 2011, Hepatitis C, Degenerative disc disease in back, possible arthritis in knees, hips and arms. History of Any Multi-Drug Resistant Organisms: None Reported Past Surgical History: Appendectomy Additional Past Surgical History / Comment(s): Appendectomy-1996, eye surgery- 1998 Past Anesthesia/Blood Transfusion Reactions: No Reported Reaction Past Psychological History: Anxiety, Bipolar, Depression Smoking Status: Current every day smoker Past Alcohol Use History: Rare Additional Past Alcohol Use History / Comment(s): Patient reports he drinks approximately 4 times a year-last drink per patient was this passed wednesday. 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 pt states that he is buying them off the street - Past Family History Brother(s) Additional Family Medical History / Comment(s): Chronic alcoholism Sister(s) Additional Family Medical History / Comment(s): Chronic alcoholism Daughter(s) Additional Family Medical History / Comment(s): One daughter healthy Son(s) Additional Family Medical History / Comment(s): One son healthy Father History Unknown: Yes Family Medical History: AICD/Pacemaker, Myocardial Infarction ([place]) Additional Family Medical History / Comment(s): Schizophrenia. Per patient, his father at the age of 59 Mother History Unknown: Yes Family Medical History: No Reported History Additional Family Medical History / Comment(s): HPV General Exam Limitations: no limitations General appearance: alert, in no apparent distress Head exam: Present: atraumatic, normocephalic Eye exam: Present: normal appearance. Absent: scleral icterus, conjunctival injection Respiratory exam: Present: normal lung sounds bilaterally. Absent: respiratory distress, wheezes, rales, rhonchi, stridor Cardiovascular Exam: Present: regular rate, normal rhythm, normal heart sounds. Absent: systolic murmur, diastolic murmur, rubs, gallop GI/Abdominal exam: Present: distended, tenderness (There is mild diffuse tenderness), guarding, diminished bowel sounds. Absent: rebound, mass, pulsatile mass, hernia Extremities exam: Present: normal inspection, normal capillary refill. Absent: pedal edema, calf tenderness Back exam: Present: normal inspection. Absent: CVA tenderness (R), CVA tenderness (L) Neurological exam: Present: alert Skin exam: Present: warm, dry, intact, normal color. Absent: rash, cyanosis, diaphoretic, erythema, petechiae, pallor, mottled Course Vital Signs 07/01/16 07/01/16 07/01/16 00:47 03:53 04:49 Temperature 97.4 F L Pulse Rate 98 103 H 98 Pulse Rate [ Pulse Oximetery ] Respiratory 18 18 16 Rate Blood Pressure 124/65 144/77 Blood Pressure [Left Arm] O2 Sat by Pulse 97 97 97 Oximetry 07/01/16 05:51 Temperature 97.0 F L Pulse Rate Pulse Rate [ 100 Pulse Oximetery ] Respiratory 16 Rate Blood Pressure Blood Pressure 137/95 [Left Arm] O2 Sat by Pulse 94 L Oximetry Medical Decision Making - Lab Data Result diagrams: 07/01/16 00:52 07/01/16 00:52 Lab Results 07/01/16 07/01/16 Range/Units 00:52 00:52 WBC 32.7 H* (3.8-10.6) k/uL RBC 5.10 (4.30-5.90) m/uL Hgb 15.1 (13.0-17.5) gm/dL Hct 45.3 (39.0-53.0) % MCV 88.8 (80.0-100.0) fL MCH 29.5 (25.0-35.0) pg MCHC 33.3 (31.0-37.0) g/dL RDW 14.1 (11.5-15.5) % Plt Count 378 (150-450) k/uL Neutrophils % (Manual) 63.0 % Band Neutrophils % 9.0 % Lymphocytes % (Manual) 17.0 % Monocytes % (Manual) 7.0 % Eosinophils % (Manual) 4.0 % Neutrophils # (Manual) 23.5 H (1.3-7.7) k/uL Lymphocytes # (Manual) 5.6 H (1.0-4.8) k/uL Monocytes # (Manual) 2.3 H (0-1.0) k/uL Eosinophils # (Manual) 1.3 H (0-0.7) k/uL Nucleated RBCs 0 (0-0) /100 WBC Manual Slide Review Performed Large Platelets Present Polychromasia Present Poikilocytosis (manual Present Anisocytosis (manual) Present Sodium 144 (137-145) mmol/L Potassium 3.5 (3.5-5.1) mmol/L Chloride 105 (98-107) mmol/L Carbon Dioxide 26 (22-30) mmol/L Anion Gap 13 mmol/L BUN 16 (9-20) mg/dL Creatinine 1.00 (0.66-1.25) mg/dL Est GFR (MDRD) Af Amer >60 (>60 ml/min/1.73 sqM) Est GFR (MDRD) Non-Af >60 (>60 ml/min/1.73 sqM) Glucose 176 H (74-99) mg/dL Calcium 9.6 (8.4-10.2) mg/dL Total Bilirubin 1.9 H (0.2-1.3) mg/dL AST 187 H (17-59) U/L ALT 251 H (21-72) U/L Alkaline Phosphatase 366 H (38-126) U/L Total Protein 7.5 (6.3-8.2) g/dL Albumin 4.3 (3.5-5.0) g/dL Amylase 7961 H* (30-110) U/L Lipase >59627 H (23-300) U/L Disposition Clinical Impression: Abdominal pain, Pancreatitis Disposition: ADMITTED IP TO THIS [facility] Condition: Fair
[2016-07-01 01:33] LABS: Amylase 7961 U/L (30-110)
[2016-07-01 01:47] LABS: WBC 32.7 k/uL (3.8-10.6)
[2016-07-01 01:50] LABS: Add Differential Manual Differential
[2016-07-01 01:52] LABS: Large Platelets Present; Nucleated Red Blood Cells 0 /100 WBC (0-0); Total Cells Counted 100
[2016-07-01 01:53] LABS: Polychromasia Present
[2016-07-01 01:54] LABS: Manual Review Performed
--- NOTE | 2016-07-01 02:13 | CT ---
EXAM: CT Abdomen and Pelvis With Intravenous Contrast. CLINICAL HISTORY: Reason: Pain TECHNIQUE: Axial computed tomography images of the abdomen and pelvis with intravenous contrast. CTDI is 44.30 mGy and DLP is 2090.20 mGy-cm COMPARISON: 12/24/15 right upper quadrant ultrasound FINDINGS: Lower thorax: Calcified granuloma is seen anteriorly at the right lung base. ABDOMEN: Liver: There is again diffuse hepatic steatosis along with mild cardiomegaly. Gallbladder and bile ducts: Unremarkable. No calcified stones. No ductal dilation. Pancreas: There is now diffuse peripancreatic inflammatory change with edematous appearance of the pancreas consistent with acute pancreatitis. Small amounts of peripancreatic fluid are present, tracking along the anterior pararenal fascia right greater than left. There is no ry evidence of pancreatic necrosis seen at this time. Spleen: Unremarkable. No splenomegaly. Adrenals: Unremarkable. No mass. Kidneys and ureters: Unremarkable. No hydronephrosis. No solid mass. PELVIS: Bladder: Unremarkable. No mass. Reproductive: Unremarkable as visualized. Appendix: No findings to suggest acute appendicitis. ABDOMEN + PELVIS: Stomach and bowel: Unremarkable. No obstruction. No mucosal thickening. Peritoneum: Unremarkable. No significant fluid collection. No free air. Lymph nodes: Unremarkable. No enlarged lymph nodes. Vasculature: Unremarkable. No aortic aneurysm. Bones: Slight anterior loss of height at T10-T12 appears chronic. No acute fracture. IMPRESSION: Findings consistent with acute pancreatitis. No associated ry necrosis or pseudocyst formation seen at this time.
[2016-07-01] MEDS ORDERED: SODIUM CHLORIDE 0.9% 500 ML IV STA (02:28)
[2016-07-01] MEDS ORDERED: ONDANSETRON 4 MG/2 ML VIAL IVP PRN (03:06)
[2016-07-01] MEDS ORDERED: NALOXONE 0.4 MG/ML 1 ML VIAL IV PRN (03:06)
[2016-07-01] MEDS ORDERED: LORazepam 2 MG/ML SYRINGE IV STA ×2 (03:42→05:32)
[2016-07-01] MEDS: HYDROmorphone 1 MG/ML 1 ML SYRINGE IV PRN ×5 (03:44→23:58)
[2016-07-01 04:00] LABS: Appearance,Urine Clear (Clear); Bilirubin,Urine Negative (Negative); Glucose,Urine (UA) Negative (Negative); Ketones,Urine Negative (Negative); Leukocyte Esterase,Urine Negative (Negative); Nitrite,Urine Negative (Negative); Particle Count 1606; Protein,Urine 1+ (Negative); RBC,Urine 1 /hpf (0-5); Squamous Epithelial Cell,Urine <1 /hpf (0-4); UA Billing (MACRO vs. MICRO) MICRO; WBC,Urine 1 /hpf (0-5)
[2016-07-01 04:15] LABS: Specific Gravity,Urine >1.050 (1.001-1.035)
[2016-07-01] MEDS ORDERED: HYDROmorphone 1 MG/ML 1 ML SYRINGE IVP STA (05:32)
[2016-07-01] MEDS: SODIUM CHLORIDE 0.9% 1,000 ML IV SCH ×4 (05:45→23:57)
[2016-07-01 05:58] VITALS: BMI 38.7
[2016-07-01] MEDS: PANTOPRAZOLE 40 MG/10 ML VIAL IV SCH (08:36)
[2016-07-01 08:52] LABS: Basophils % (A) 0 %; CH 29.7; CHCM 32.8; Eosinophils # (A) 0.1 k/uL (0-0.7); Eosinophils % (A) 0 %; HCT 49.2 % (39.0-53.0); HDW 2.32; HGB 15.6 gm/dL (13.0-17.5); Luc # (Auto) 0.12; Luc % (Auto) 1; Lymphocytes # (A) 0.9 k/uL (1.0-4.8); Lymphocytes % (A) 3 %; MCH 28.8 pg (25.0-35.0); MCHC 31.7 g/dL (31.0-37.0); MCV 90.9 fL (80.0-100.0); Mean Platelet Volume 8.2; Monocytes % (A) 4 %; Neutrophils # (A) 23.6 k/uL (1.3-7.7); Neutrophils % (A) 92 %; RBC 5.41 m/uL (4.30-5.90); RDW 14.2 % (11.5-15.5); WBC (Perox) 26.66
[2016-07-01 08:55] LABS: WBC 25.7 k/uL (3.8-10.6)
[2016-07-01 08:59] LABS: ALT 269 U/L (21-72); AST 203 U/L (17-59); Alkaline Phosphatase 320 U/L (38-126); Anion Gap 15 mmol/L; Blood Urea Nitrogen 16 mg/dL (9-20); Calcium 9.1 mg/dL (8.4-10.2); Carbon Dioxide 24 mmol/L (22-30); Chloride 102 mmol/L (98-107); Glucose 193 mg/dL (74-99); Non-African American GFR(MDRD) >60 (>60 ml/min/1.73 sqM); Potassium 3.8 mmol/L (3.5-5.1); Sodium 141 mmol/L (137-145); Total Bilirubin 2.3 mg/dL (0.2-1.3); Total Protein 7.3 g/dL (6.3-8.2)
[2016-07-01 09:34] LABS: Amylase 1791 U/L (30-110)
[2016-07-01] MEDS ORDERED: SODIUM CHLORIDE 0.9% 1,000 ML IV ONE (09:44)
--- NOTE | 2016-07-01 09:48 | P.CONS ---
History of Present Illness - Reason for Consult Consult date: 07/01/16 pancreatitis Requesting physician: Hilton Manzanares - History of Present Illness 41-year-old male with a history of intravenous drug abuse, hepatitis C, prescription drug abuse, seizure disorder, bipolar depression, nicotine cigarette dependency, COPD, and degenerative joint disease. Presents with acute abdominal pain nausea vomiting without fever. Admission white count 32.7. 9% bandemia. Current white count 25.7. Hemoglobin 15.6. Amylase 7961. Lipase greater than 20,000. Total bilirubin 1.9. AST 187. ALT 251. Alkaline phosphatase 366. Glucose 176. BUN 16. Creatinine 1.0. No history of pancreatitis. Quantitative measurement hepatitis C RNA not detected in 2016. Denies alcoholism or changes in medications. CT abdomen and pelvis IV contrast reported unremarkable gallbladder and bile ducts. No calcified stones. Peripancreatic inflammatory changes with edematous. Of the pancreas consistent with acute pancreatitis. Small amount of pancreatic pancreatic fluid tracking along the bilateral anterior pararenal fascia greater on right. No splenomegaly. Review of Systems Constitutional: Denies fever, chills, sweats, weight gain, or loss. HEENT: Negative for migraines, blurred vision or loss, earaches, drainage, tinnitus, oral mucosal lesions, dysphagia, or odynophagia. Cardiac: Negative for chest pain, arrhythmias, or palpitation. Respiratory: COPD. Nicotine cigarette dependency. Negative for shortness of breath, hemoptysis, cough, or sputum production. Gastrointestinal: See HPI for pertinent findings. Genitourinary: Negative for hematuria, urgency, frequency, polyuria, dysuria, or penile discharge. Musculoskeletal: Degenerative joint disease. Neurologic: Seizure disorder. Negative for stroke or TIA. Endocrine: Negative for thyroid problems. Skin: Negative for rash or itching. Psychiatric: Bipolar depression. All systems: negative (See HPI) Past Medical History Past Medical History: COPD, Seizure Disorder Additional Past Medical History / Comment(s): History of seizures-per patient, his last seizure was in 2011, Hepatitis C, Degenerative disc disease in back, possible arthritis in knees, hips and arms. History of Any Multi-Drug Resistant Organisms: None Reported Past Surgical History: Appendectomy Additional Past Surgical History / Comment(s): Appendectomy-1996, eye surgery- 1998 Past Anesthesia/Blood Transfusion Reactions: No Reported Reaction Past Psychological History: Anxiety, Bipolar, Depression Smoking Status: Current every day smoker Past Alcohol Use History: Rare Additional Past Alcohol Use History / Comment(s): Patient reports he drinks approximately 4 times a year-last drink per patient was this passed wednesday. 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 pt states that he is buying them off the street - Past Family History Brother(s) Additional Family Medical History / Comment(s): Chronic alcoholism Sister(s) Additional Family Medical History / Comment(s): Chronic alcoholism Daughter(s) Additional Family Medical History / Comment(s): One daughter healthy Son(s) Additional Family Medical History / Comment(s): One son healthy Father History Unknown: Yes Family Medical History: AICD/Pacemaker, Myocardial Infarction ([place]) Additional Family Medical History / Comment(s): Schizophrenia. Per patient, his father at the age of 59 Mother History Unknown: Yes Family Medical History: No Reported History Additional Family Medical History / Comment(s): HPV Medications and Allergies Home Medications Medication Instructions Recorded Confirmed Type Atorvastatin [Lipitor] 20 mg PO HS 05/02/16 07/01/16 History Omeprazole 40 mg PO HS 05/02/16 07/01/16 History Ibuprofen [Motrin] 800 mg PO Q8HR PRN 07/01/16 07/01/16 History Lisinopril [Zestril] 5 mg PO HS 07/01/16 07/01/16 History Mirtazapine [Remeron] 45 mg PO HS 07/01/16 07/01/16 History OLANZapine [ZyPREXA] 5 mg PO DAILY 07/01/16 07/01/16 History Allergies Allergy/AdvReac Type Severity Reaction Status Date / Time codeine Allergy Swelling Verified 07/01/16 09:27 furosemide [From Lasix] Allergy Rash/Hives Verified 07/01/16 09:27 haloperidol [From Haldol] Allergy Unknown Verified 07/01/16 09:27 haloperidol lactate Allergy Unknown Verified 07/01/16 09:27 [From Haldol] prochlorperazine edisylate Allergy Swelling Verified 07/01/16 09:27 [From Compazine] prochlorperazine maleate Allergy Swelling Verified 07/01/16 09:27 [From Compazine] milk AdvReac Severe Diarrhea Verified 07/01/16 09:27 Milk Containing Products AdvReac Severe Diarrhea Verified 07/01/16 09:27 Physical Exam Vitals: Vital Signs Temp Pulse Pulse Resp BP BP Pulse Ox 07/01/16 07:00 98.1 F 102 H 18 137/88 98 07/01/16 05:51 97.0 F L 100 16 137/95 94 L 07/01/16 04:49 98 16 97 07/01/16 03:53 103 H 18 144/77 97 Intake and Output 06/30/16 07/01/16 07/01/16 22:59 06:59 14:59 Other: Voiding Method Toilet Weight 122.4 kg General appearance: The patient is alert, oriented, in no acute distress. HET: Head is normocephalic and atraumatic. Pupils are equal and reactive. Oropharynx is clear without lesions. Neck: Supple without lymphadenopathy. Trachea midline. Heart: S1 S2. Regular rate and rhythm. Lungs: No crackles or wheezes are heard. Abdomen: Soft, obese, diffuse mild tenderness upper abdomen and epigastrium, nondistended with bowel sounds. No peritoneal signs. No palpable organomegaly or masses. Extremities: Normal skin color and turgor. No cyanosis, rash, ulceration, clubbing, or edema. Radial and pedal pulses are 2/4 bilaterally. Neurological: No focal deficits. Strength and sensation are grossly intact. Results CBC & Chem 7: 07/01/16 08:36 07/01/16 00:52 Labs: Abnormal Lab Results - Last 24 Hours (Table) 07/01/16 07/01/16 Range/Units 03:47 08:36 WBC 25.7 H* (3.8-10.6) k/uL Neutrophils # 23.6 H (1.3-7.7) k/uL Lymphocytes # 0.9 L (1.0-4.8) k/uL Ur Specific [place] >1.050 H (1.001-1.035) Urine Protein 1+ H (Negative) CT scan - abdomen: report reviewed (Reviewed by Dr. Herring) Assessment and Plan (1) Acute pancreatitis Narrative/Plan: 41-year-old male admitted with acute severe pancreatitis with leukocytosis and elevated transaminases hyperbilirubinemia suspected secondary to edema no evidence of biliary duct dilatation or cholelithiasis. Pancreatic enzymes leukocytosis improving. Status: Acute (2) Obesity (BMI 30-39.9) Status: Chronic (3) History of hepatitis C Status: Chronic (4) Opiate abuse, episodic Status: Chronic (5) Major depressive disorder Status: Chronic Plan: 1. Supportive measures. 2. Aggressive IV hydration. 1 L bolus of normal saline 1. Maintenance normal saline 150 mL an hour. 3. GI prophylaxis. Glycemic control. 4. Will check triglyceride level. 5. ERCP/MRCP not planned at this time. We'll continue to follow closely. No further imaging advised at this time. 6. General surgery consulted. Thank you for this kind referral and the opportunity to participate in the care of your patient. This consultation was discussed with Dr. Herring. The impression and plan of care have been directed as dictated.
[2016-07-01] MEDS: ACETAMINOPHEN IV (For NPO) 1,000 MG in EMPTY BAG 1 BAG IVPB SCH ×3 (10:16→23:09)
--- NOTE | 2016-07-01 11:43 | HP ---
DATE OF ADMISSION: CHIEF COMPLAINT: Abdominal pain and acute pancreatitis. HISTORY OF PRESENT ILLNESS: This is another admission for this 41-year-old white male who has an extensive history of substance abuse as well psychiatric disorders. He came to the emergency room with epigastric pain and his lipase was over ( ). REVIEW OF SYSTEMS: He denies any neurologic deficits, cough, hemoptysis, chest pain, murmurs, rheumatic fever, vomiting, diarrhea, hematemesis, melena, hematochezia, jaundice, hepatitis, etc. He has had no renal disease or diabetes. Past medical history, family history and personal and social histories are all essentially unremarkable. He is on Abilify 5 mg at bedtime, atorvastatin 20 at bedtime, mirtazapine 45 mg once a day, nicotine patch, venlafaxine 300 mg in the morning and 150s night, Prilosec 40 mg a day. PHYSICAL EXAMINATION: Blood pressure is 145/100 with the pulse of 90, respirations 38 and he is afebrile. GENERAL: He appeared to be pale and in quite a bit of discomfort. Head, ears, eyes, nose, mouth, and throat were normal. Chest is clear. Cardiac exam is normal,. The abdomen is tender over the epigastric and there are no masses. Extremities are normal. Neurologically, he is intact. IMPRESSION: 1. Pancreatitis. 2. History of narcotic and IV drug abuse. PLAN: 1. Bed rest. 2. N.p.o. 3. IV fluids. 4. HIV and ( ) profile.
--- NOTE | 2016-07-01 11:57 | P.HPIM ---
History of Present Illness H&P Date: 07/01/16 Chief Complaint: Vomiting abdominal pain 41-year-old male who activated EMS system presented to the emergency room on the day of admission to be evaluated for a chief complaint of developing persistent diffuse abdominal pain patient points to the epigastric area as to the reference point. Patient stated it started in the epigastric area then spread across the abdominal wall pain was unbearable. He stated it occurred approximately 4-6 hours prior to coming into the emergency room felt like a severe cramp in his abdomen patient stated seemed to get worse if he tried to move or touched his abdomen. Patient stated he felt nauseated poor oral intake but did not actually vomit. Patient additionally states that there have been no change in bowel habits had not been experiencing any loose stool or constipation issues patient has a significant past to mental history schizoaffective disorder states that he does see a [facility] psychiatrist Dr. Escamilla there has been no changes in his medication. Additionally patient has a history of chronic alcohol abuse with opiate prescription drug abuse. According to the patient he has been in treatment for opiate addiction. States he has not taken any opiates in the last several days and he usually buys them off the street he gives a history of IV heroin use but states he has not used heroin for at least 2 years he has no primary care provider according to the patient is last hospitalization to the mental health unit was in April 2016 for suicide ideation with depression. He states he's been compliant with following up with his psychiatrist in the outpatient setting. Patient does state that he lives in his own apartment and is on disability due to mental illness Patient is a current every day smoker 1 pack a day states he does not drink alcohol when questioning Patient gives no significant past surgical history stated that he did have an appendectomy in 1996 had eye surgery in 1998 Does have a history of IV drug use heroin last used 2 years ago with hepatitis C. Quantitative measurement hepatitis C RNA not detected 2016 On admission the white count was elevated at 32 lipase was greater than 20, 000. Amylase 7961 CAT scan of the abdomen pelvis with IV contrast the report unremarkable gallbladder and bile duct. No calcified stones. No splenomegaly. The pancreas was consistent with acute pancreatitis. The AST and ALT and alk phos were elevated in the emergency room the patient was afebrile Review of Systems Essentially unremarkable except as mentioned in the present illness Past Medical History Past Medical History: COPD, Seizure Disorder Additional Past Medical History / Comment(s): History of seizures-per patient, his last seizure was in 2011, Hepatitis C, Degenerative disc disease in back, possible arthritis in knees, hips and arms. History of Any Multi-Drug Resistant Organisms: None Reported Past Surgical History: Appendectomy Additional Past Surgical History / Comment(s): Appendectomy-1996, eye surgery- 1998 Past Anesthesia/Blood Transfusion Reactions: No Reported Reaction Past Psychological History: Anxiety, Bipolar, Depression Smoking Status: Current every day smoker Past Alcohol Use History: Rare Additional Past Alcohol Use History / Comment(s): Patient reports he drinks approximately 4 times a year-last drink per patient was this passed wednesday. 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 pt states that he is buying them off the street - Past Family History Brother(s) Additional Family Medical History / Comment(s): Chronic alcoholism Sister(s) Additional Family Medical History / Comment(s): Chronic alcoholism Daughter(s) Additional Family Medical History / Comment(s): One daughter healthy Son(s) Additional Family Medical History / Comment(s): One son healthy Father History Unknown: Yes Family Medical History: AICD/Pacemaker, Myocardial Infarction ([place]) Additional Family Medical History / Comment(s): Schizophrenia. Per patient, his father at the age of 59 Mother History Unknown: Yes Family Medical History: No Reported History Additional Family Medical History / Comment(s): HPV Medications and Allergies Home Medications Medication Instructions Recorded Confirmed Type Atorvastatin [Lipitor] 20 mg PO HS 05/02/16 07/01/16 History Omeprazole 40 mg PO HS 05/02/16 07/01/16 History Ibuprofen [Motrin] 800 mg PO Q8HR PRN 07/01/16 07/01/16 History Lisinopril [Zestril] 5 mg PO HS 07/01/16 07/01/16 History Mirtazapine [Remeron] 45 mg PO HS 07/01/16 07/01/16 History OLANZapine [ZyPREXA] 5 mg PO DAILY 07/01/16 07/01/16 History Allergies Allergy/AdvReac Type Severity Reaction Status Date / Time codeine Allergy Swelling Verified 07/01/16 09:27 furosemide [From Lasix] Allergy Rash/Hives Verified 07/01/16 09:27 haloperidol [From Haldol] Allergy Unknown Verified 07/01/16 09:27 haloperidol lactate Allergy Unknown Verified 07/01/16 09:27 [From Haldol] prochlorperazine edisylate Allergy Swelling Verified 07/01/16 09:27 [From Compazine] prochlorperazine maleate Allergy Swelling Verified 07/01/16 09:27 [From Compazine] milk AdvReac Severe Diarrhea Verified 07/01/16 09:27 Milk Containing Products AdvReac Severe Diarrhea Verified 07/01/16 09:27 Physical Exam Vitals: Vital Signs Temp Pulse Pulse Resp BP BP Pulse Ox 07/01/16 07:00 98.1 F 102 H 18 137/88 98 07/01/16 05:51 97.0 F L 100 16 137/95 94 L 07/01/16 04:49 98 16 97 07/01/16 03:53 103 H 18 144/77 97 Intake and Output 06/30/16 07/01/16 07/01/16 22:59 06:59 14:59 Other: Voiding Method Toilet Weight 122.4 kg GENERAL APPEARANCE: 41-year-old male patient is alert, oriented, in no acute distress. Easily agitated when attempting to interview the patient calms with reassurance VITAL SIGNS: Reviewed HEENT: Head is normocephalic and atraumatic. Pupils are equal and reactive. The nares are patent. Oropharynx is clear without lesions. NECK: Supple without lymphadenopathy. Traches midline. HEART: S1, S2. Regular rate and rhythm. No murmur noted denying chest pain LUNGS: No crackles or wheezes are heard. Adequate air movement bilaterally ABDOMEN: Soft, diffuse mild tenderness across the upper abdomen nonradiating, nondistended with good bowel sounds. No peritoneal signs. No palpable organomegaly or masses. EXTREMITIES: Normal skin color and turgor. No cyanosis, rash, ulceration, clubbing or edema. Radial pedal pulses are 2/4 bilaterally. NEUROLOGICAL: No focal deficits. Strength and sensation are grossly intact. Skin warm and dry no rash noted multiple skin tattoos on the arms and neck chest Results CBC & Chem 7: 07/01/16 08:36 07/01/16 08:36 Labs: Abnormal Lab Results - Last 24 Hours (Table) 07/01/16 07/01/16 07/01/16 Range/Units 03:47 08:36 08:36 WBC 25.7 H* (3.8-10.6) k/uL Neutrophils # 23.6 H (1.3-7.7) k/uL Lymphocytes # 0.9 L (1.0-4.8) k/uL Glucose 193 H (74-99) mg/dL Total Bilirubin 2.3 H (0.2-1.3) mg/dL AST 203 H (17-59) U/L ALT 269 H (21-72) U/L Alkaline Phosphatase 320 H (38-126) U/L Amylase 1791 H* (30-110) U/L Lipase 6596 H (23-300) U/L Ur Specific [place] >1.050 H (1.001-1.035) Urine Protein 1+ H (Negative) Thrombosis Risk Factor Assmnt - Choose All That Apply Each Factor Represents 1 point: Age 41-60 years Other Risk Factors: No Other congenital or acquired thrombophilia - If yes, enter type in comment: No Thrombosis Risk Factor Assessment Total Risk Factor Score: 1 Thrombosis Risk Factor Assessment Level: Low Risk Assessment and Plan Plan: impression Present on admission diffuse abdominal pain elevated lipase amylase consistent with acute severe pancreatitis Obesity BMI 38 Chronic hepatitis C Major depressive disorder History of opiate abuse prescription drugs episodic last used 2 weeks prior per patient history Current every day smoker 1 pack a day History of alcoholism in remission Present on admission leukocytosis and elevated transaminase Echocardiogram done May 2016 left ventricular systolic function normal EF between 65 and 60% no pulmonary hypertension Present on admission hyperbilirubinemia suspected secondary to edema no evidence of biliary duct dilatation or cholelithiasis History of chronic sedative, hypnotic or anxiolytic abuse History of a prior urine drug screen persistently positive for non-prescribed benzodiazepine last checked 05/02/2016 Mood disorder Essential hypertension Plan IV fluid at 115 hour Surgical eval pending GIs recommendations reviewed ERCP P MRCP not planned at this time We'll check triglyceride level GI prophylaxis Resume home meds as appropriate Further recommendations pending will follow The above dictated assessment and findings were discussed with dr mehta Impression and the plan of care have been dictated as directed. Ana Meredith nurse practitioner acting as a scribe for dr mehta
[2016-07-01 13:50] LABS: Cholesterol 141 mg/dL (<200); HDL Cholesterol 39 mg/dL (40-60); Triglycerides 153 mg/dL (<150)
--- NOTE | 2016-07-01 15:58 | P.GSCN ---
History of Present Illness Consult date: 07/01/16 Reason for Consult: Acute pancreatitis Requesting physician: Isael Soria History of present illness: Patient is a 41-year-old white male, patient of Dr. Manzanares in the outpatient setting, with medical history significant for hepatitis C diagnosed and treated approximately 5-6 years ago, IV drug abuse, prescription drug abuse, and seizure disorder. Patient presented to the emergency department with acute epigastric and right upper quadrant abdominal pain associated with nausea and vomiting. Patient reports that symptoms started at 9 PM last night. Patient denies history of similar symptoms. CT of abdomen and pelvis with evidence of acute pancreatitis. Admission labs with evidence of leukocytosis with white count of 32.7, amylase 7961, lipase greater than 20,000, total bilirubin 1.9, AST 187, ALT 251, alkaline phosphatase 366. No evidence of fevers. Patient does report cold and hot sweats. Surgical consult requested for acute pancreatitis. Past Medical History Past Medical History: COPD, Seizure Disorder Additional Past Medical History / Comment(s): History of seizures-per patient, his last seizure was in 2011, Hepatitis C, Degenerative disc disease in back, possible arthritis in knees, hips and arms. History of Any Multi-Drug Resistant Organisms: None Reported Past Surgical History: Appendectomy Additional Past Surgical History / Comment(s): Appendectomy-1996, eye surgery- 1998 Past Anesthesia/Blood Transfusion Reactions: No Reported Reaction Past Psychological History: Anxiety, Bipolar, Depression Smoking Status: Current every day smoker Past Alcohol Use History: Rare Additional Past Alcohol Use History / Comment(s): Patient reports he drinks approximately 4 times a year-last drink per patient was this passed wednesday. 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 pt states that he is buying them off the street - Past Family History Brother(s) Additional Family Medical History / Comment(s): Chronic alcoholism Sister(s) Additional Family Medical History / Comment(s): Chronic alcoholism Daughter(s) Additional Family Medical History / Comment(s): One daughter healthy Son(s) Additional Family Medical History / Comment(s): One son healthy Father History Unknown: Yes Family Medical History: AICD/Pacemaker, Myocardial Infarction ([place]) Additional Family Medical History / Comment(s): Schizophrenia. Per patient, his father at the age of 59 Mother History Unknown: Yes Family Medical History: No Reported History Additional Family Medical History / Comment(s): HPV Medications and Allergies Home Medications Medication Instructions Recorded Confirmed Type Atorvastatin [Lipitor] 20 mg PO HS 05/02/16 07/01/16 History Omeprazole 40 mg PO HS 05/02/16 07/01/16 History Ibuprofen [Motrin] 800 mg PO Q8HR PRN 07/01/16 07/01/16 History Lisinopril [Zestril] 5 mg PO HS 07/01/16 07/01/16 History Mirtazapine [Remeron] 45 mg PO HS 07/01/16 07/01/16 History OLANZapine [ZyPREXA] 5 mg PO DAILY 07/01/16 07/01/16 History Allergies Allergy/AdvReac Type Severity Reaction Status Date / Time codeine Allergy Swelling Verified 07/01/16 09:27 furosemide [From Lasix] Allergy Rash/Hives Verified 07/01/16 09:27 haloperidol [From Haldol] Allergy Unknown Verified 07/01/16 09:27 haloperidol lactate Allergy Unknown Verified 07/01/16 09:27 [From Haldol] prochlorperazine edisylate Allergy Swelling Verified 07/01/16 09:27 [From Compazine] prochlorperazine maleate Allergy Swelling Verified 07/01/16 09:27 [From Compazine] milk AdvReac Severe Diarrhea Verified 07/01/16 09:27 Milk Containing Products AdvReac Severe Diarrhea Verified 07/01/16 09:27 Surgical - Exam Vital Signs Temp Pulse Resp BP Pulse Ox 97.4 F L 98 18 124/65 97 07/01/16 00:47 07/01/16 00:47 07/01/16 00:47 07/01/16 00:47 07/01/16 00:47 GENERAL: Pt awake and alert, lying in bed, well-nourished, and in no acute distress. HEAD: Atraumatic, normocephalic. EYES: Pupils equal and round. Sclera anicteric. ENT: Moist mucous membranes. LUNGS: Breath sounds clear to auscultation bilaterally. No wheezes, rales, or rhonchi. HEART: Heart S1, S2, no S3 or S4. Regular rate and rhythm. No murmurs, rubs or gallops. ABDOMEN: Soft, moderate epigastric and right upper quadrant tenderness, mildly distended, normoactive bowel sounds. No guarding, no rebound. EXTREMITIES: Palpable peripheral pulses. NEUROLOGICAL: Pt oriented x 3. Results - Labs 07/01/16 08:36 07/01/16 08:36 Abnormal Lab Results - Last 24 Hours (Table) 07/01/16 07/01/16 07/01/16 Range/Units 03:47 08:36 08:36 WBC 25.7 H* (3.8-10.6) k/uL Neutrophils # 23.6 H (1.3-7.7) k/uL Lymphocytes # 0.9 L (1.0-4.8) k/uL Glucose 193 H (74-99) mg/dL Total Bilirubin 2.3 H (0.2-1.3) mg/dL AST 203 H (17-59) U/L ALT 269 H (21-72) U/L Alkaline Phosphatase 320 H (38-126) U/L Triglycerides (<150) mg/dL HDL Cholesterol (40-60) mg/dL Amylase 1791 H* (30-110) U/L Lipase 6596 H (23-300) U/L Ur Specific [place] >1.050 H (1.001-1.035) Urine Protein 1+ H (Negative) 07/01/16 Range/Units 08:36 WBC (3.8-10.6) k/uL Neutrophils # (1.3-7.7) k/uL Lymphocytes # (1.0-4.8) k/uL Glucose (74-99) mg/dL Total Bilirubin (0.2-1.3) mg/dL AST (17-59) U/L ALT (21-72) U/L Alkaline Phosphatase (38-126) U/L Triglycerides 153 H (<150) mg/dL HDL Cholesterol 39 L (40-60) mg/dL Amylase (30-110) U/L Lipase (23-300) U/L Ur Specific [place] (1.001-1.035) Urine Protein (Negative) Diabetes panel 07/01/16 07/01/16 Range/Units 08:36 08:36 Sodium 141 (137-145) mmol/L Potassium 3.8 (3.5-5.1) mmol/L Chloride 102 (98-107) mmol/L Carbon Dioxide 24 (22-30) mmol/L BUN 16 (9-20) mg/dL Creatinine 1.00 (0.66-1.25) mg/dL Glucose 193 H (74-99) mg/dL Calcium 9.1 (8.4-10.2) mg/dL AST 203 H (17-59) U/L ALT 269 H (21-72) U/L Alkaline Phosphatase 320 H (38-126) U/L Total Protein 7.3 (6.3-8.2) g/dL Albumin 4.2 (3.5-5.0) g/dL Triglycerides 153 H (<150) mg/dL HDL Cholesterol 39 L (40-60) mg/dL Calcium panel 07/01/16 Range/Units 08:36 Calcium 9.1 (8.4-10.2) mg/dL Albumin 4.2 (3.5-5.0) g/dL Pituitary panel 07/01/16 Range/Units 08:36 Sodium 141 (137-145) mmol/L Potassium 3.8 (3.5-5.1) mmol/L Chloride 102 (98-107) mmol/L Carbon Dioxide 24 (22-30) mmol/L BUN 16 (9-20) mg/dL Creatinine 1.00 (0.66-1.25) mg/dL Glucose 193 H (74-99) mg/dL Calcium 9.1 (8.4-10.2) mg/dL Adrenal panel 07/01/16 Range/Units 08:36 Sodium 141 (137-145) mmol/L Potassium 3.8 (3.5-5.1) mmol/L Chloride 102 (98-107) mmol/L Carbon Dioxide 24 (22-30) mmol/L BUN 16 (9-20) mg/dL Creatinine 1.00 (0.66-1.25) mg/dL Glucose 193 H (74-99) mg/dL Calcium 9.1 (8.4-10.2) mg/dL Total Bilirubin 2.3 H (0.2-1.3) mg/dL AST 203 H (17-59) U/L ALT 269 H (21-72) U/L Alkaline Phosphatase 320 H (38-126) U/L Total Protein 7.3 (6.3-8.2) g/dL Albumin 4.2 (3.5-5.0) g/dL - Imaging US - abdomen: report reviewed (Acute pancreatitis. No associated ry necrosis or pseudocyst formation seen at this time.) Assessment and Plan Plan: Impression: 1. Acute pancreatitis. Plan: Continue to monitor patient. Obtain ultrasound of gallbladder. Continue nothing by mouth diet except medications, ice chips, popsicles. Continue IV hydration. Continue supportive treatment and pain management. Continue GI and DVT prophylaxis. Continue to follow with primary and gastrointestinal service. Repeat CBC, CMP, amylase and lipase in a.m. The above impression and plan have been discussed and directed by Dr. Hicks. Chris MOLINA acting as scribe for Dr. Hicks.
--- NOTE | 2016-07-01 17:19 | US ---
EXAMINATION TYPE: US gallbladder DATE OF EXAM: 07/01/2016 5:01 PM COMPARISON: NONE CLINICAL HISTORY: Abdominal pain. Severe epigastric pain EXAM MEASUREMENTS: Liver Length: 17.5 cm Gallbladder Wall: 0.3 cm CBD: 0.9 cm Right Kidney: 11.8 x 4.9 x 5.7 cm TECHNOLOGIST IMPRESSION: Pancreas: not visualized due to bowel gas and body habitus Liver: measures upper limits of normal, difficult to penetrate, somewhat coarse echotexture Gallbladder: multiple small stones seen that did not fully move out of the neck area with patient ro lled LLD and [place]. Evidence for sonographic Dahl's sign: Yes CBD: dilated at 0.9 cm Right Kidney: No hydronephrosis or masses seen IMPRESSION: Numerous gallstones. Intrahepatic bile ducts are not dilated but the common bile duct benita sures 9 mm. This could relate to chronic gallbladder dysfunction. Acute common bile duct obstruction cannot be excluded.
[2016-07-01] MEDS: MIRTAZAPINE 45 MG TABLET PO SCH (20:00)
[2016-07-01] MEDS ORDERED: NON-FORMULARY DRUG (Omeprazole [Omeprazole] 40 MG) PO SCH (21:00)
[2016-07-02] MEDS: HYDROmorphone 1 MG/ML 1 ML SYRINGE IV PRN ×7 (03:01→22:30)
[2016-07-02] MEDS: ACETAMINOPHEN IV (For NPO) 1,000 MG in EMPTY BAG 1 BAG IVPB SCH (05:25)
[2016-07-02] MEDS: SODIUM CHLORIDE 0.9% 1,000 ML IV SCH ×3 (07:00→22:28)
[2016-07-02 08:06] LABS: CH 29.8; CHCM 32.6; HCT 45.8 % (39.0-53.0); HDW 2.26; Immature Gran Flag Marked; MCH 30.1 pg (25.0-35.0); MCHC 32.7 g/dL (31.0-37.0); Mean Platelet Volume 9.6; RBC 4.98 m/uL (4.30-5.90); RDW 14.2 % (11.5-15.5); WBC (Perox) 34.04
[2016-07-02 08:12] LABS: WBC 32.6 k/uL (3.8-10.6)
[2016-07-02 08:16] LABS: ALT 143 U/L (21-72); AST 74 U/L (17-59); Alkaline Phosphatase 180 U/L (38-126); Anion Gap 14 mmol/L; Carbon Dioxide 19 mmol/L (22-30); Chloride 103 mmol/L (98-107); Glucose 142 mg/dL (74-99); Non-African American GFR(MDRD) >60 (>60 ml/min/1.73 sqM); Potassium 3.8 mmol/L (3.5-5.1); Sodium 136 mmol/L (137-145); Total Bilirubin 2.5 mg/dL (0.2-1.3); Total Protein 6.4 g/dL (6.3-8.2)
[2016-07-02 08:20] LABS: INR 1.5 (<1.1); Prothrombin Time 14.8 sec (9.0-12.0)
[2016-07-02 08:25] LABS: Amylase 1199 U/L (30-110)
[2016-07-02 08:54] LABS: Add Differential Manual Differential; Blood Urea Nitrogen 17 mg/dL (9-20)
[2016-07-02 08:57] LABS: Band Neutrophils % 9.5 %; Nucleated Red Blood Cells 0 /100 WBC (0-0); Total Cells Counted 200
[2016-07-02 08:59] LABS: Toxic Vacuolation Present
[2016-07-02 09:00] LABS: Polychromasia Present; Toxic Granulation Present
[2016-07-02] MEDS: PANTOPRAZOLE 40 MG/10 ML VIAL IV SCH (09:00)
[2016-07-02] MEDS: OLANZapine 5 MG TAB PO SCH (09:00)
[2016-07-02] MEDS ORDERED: SODIUM CHLORIDE 0.9% 1,000 ML IV ONE (10:04)
--- NOTE | 2016-07-02 10:44 | P.PN ---
Subjective Principal diagnosis: Severe pancreatitis 41-year-old male admitted with severe pancreatitis, leukocytosis with elevated transaminases and hyperbilirubinemia. Patient has a history of hepatitis C, bipolar disorder as well as prescription narcotic abuse questionable alcoholism. CT on admission reported no evidence of cholelithiasis or biliary ductal abnormalities. Total bilirubin today is 2.5 however transaminases are improving AST 74. ALT 143. Alkaline phosphatase 180. Patient has been afebrile. Lipase improved to 3315. Amylase 1199. Lactic acid 2.4. Patient reporting dark colored urine and voiding small amounts. Still reports abdominal pain. INR is 1.5. Ultrasound abdomen yesterday reported evidence of cholelithiasis that did not move beyond the neck of the gallbladder. CBD dilated at 0.9 cm. White count persistently elevated currently 32.6. Objective - Vital Signs Vital signs: Vital Signs Temp 98.3 F 07/02/16 07:00 Pulse 121 H 07/02/16 08:00 Resp 20 07/02/16 08:00 BP 141/95 07/02/16 07:00 Pulse Ox 95 07/02/16 07:00 Intake & Output 07/01/16 07/02/16 07/02/16 18:59 06:59 18:59 Intake Total 1850 Balance 1850 Intake: Intake, IV Titration 1850 Amount ACETAMINOPHEN IV (For NPO 200 ) 1,000 mg In Empty Bag 1 bag @ 400 mls/hr IVPB Q6HR VINAYAK Rx#:[id number] Sodium Chloride 0.9% 1, 1650 000 ml @ 100 mls/hr IV . Q10H STA Rx#:[id number] Other: Voiding Method Toilet Urinal # Voids 2 1 - Exam General appearance: The patient is alert, oriented, in no acute distress. HET: Head is normocephalic and atraumatic. Pupils are equal and reactive. Oropharynx is clear without lesions. Neck: Supple without lymphadenopathy. Trachea midline. Heart: S1 S2. Regular rate and rhythm. Lungs: No crackles or wheezes are heard. Abdomen: Soft, diffuse tenderness bilateral upper abdomen midepigastrium with bowel sounds. No peritoneal signs. No palpable organomegaly or masses. Extremities: Normal skin color and turgor. No cyanosis, rash, ulceration, clubbing, or edema. Radial and pedal pulses are 2/4 bilaterally. Neurological: No focal deficits. Strength and sensation are grossly intact. - Labs CBC & Chem 7: 07/02/16 07:42 07/02/16 07:42 Labs: Abnormal Lab Results - Last 24 Hours (Table) 07/01/16 07/02/16 07/02/16 Range/Units 08:36 07:42 07:42 WBC 32.6 H* (3.8-10.6) k/uL Neutrophils # (Manual) 29.8 H (1.3-7.7) k/uL Monocytes # (Manual) 1.8 H (0-1.0) k/uL PT (9.0-12.0) sec Sodium 136 L (137-145) mmol/L Carbon Dioxide 19 L (22-30) mmol/L Glucose 142 H (74-99) mg/dL Plasma Lactic Acid [place] (0.7-2.0) mmol/L Calcium 8.0 L (8.4-10.2) mg/dL Total Bilirubin 2.5 H (0.2-1.3) mg/dL AST 74 H (17-59) U/L ALT 143 H (21-72) U/L Alkaline Phosphatase 180 H (38-126) U/L Triglycerides 153 H (<150) mg/dL HDL Cholesterol 39 L (40-60) mg/dL Amylase 1199 H* (30-110) U/L Lipase 3315 H (23-300) U/L 07/02/16 07/02/16 Range/Units 07:53 09:15 WBC (3.8-10.6) k/uL Neutrophils # (Manual) (1.3-7.7) k/uL Monocytes # (Manual) (0-1.0) k/uL PT 14.8 H (9.0-12.0) sec Sodium (137-145) mmol/L Carbon Dioxide (22-30) mmol/L Glucose (74-99) mg/dL Plasma Lactic Acid [place] 2.4 H* (0.7-2.0) mmol/L Calcium (8.4-10.2) mg/dL Total Bilirubin (0.2-1.3) mg/dL AST (17-59) U/L ALT (21-72) U/L Alkaline Phosphatase (38-126) U/L Triglycerides (<150) mg/dL HDL Cholesterol (40-60) mg/dL Amylase (30-110) U/L Lipase (23-300) U/L Assessment and Plan (1) Acute pancreatitis Narrative/Plan: 41-year-old male admitted with acute severe pancreatitis with leukocytosis and elevated transaminases hyperbilirubinemia initially suspected secondary to pancreatic edema. Possible sepsis. Interim ultrasound reported evidence of cholelithiasis and common bile duct dilatation 0.9 cm without intrahepatic dilatation or definitive CBD stone. Persistent leukocytosis with hyperbilirubinemia and improved transaminases. Etiology of pancreatitis is unclear possibly related to passage of gallstone possible underlying cholangitis despite absence of fever. With inconsistent reliability of patient' s history unsure if medications or alcohol prior to admission has contributed to his overall presentation. Status: Acute (2) Obesity (BMI 30-39.9) Status: Chronic (3) History of hepatitis C Status: Chronic (4) Opiate abuse, episodic Status: Chronic (5) Major depressive disorder Status: Chronic (6) Elevated lactic acid level Status: Acute Plan: 1. Infectious disease consultation has been requested. Case was discussed with Dr. Escamilla. We'll await his evaluation this afternoon to determine if antibiotics and/or ERCP is necessary. Dr. Escamilla we'll discuss his evaluation and recommendations with Dr. Herring later today. 2. Continue with nothing by mouth status except medications. 3. 0.9 normal saline 1 L bolus continue with IV fluids at 150 mL an hour. 4. Will obtain hepatitis C quantitative measurement to assess for reactivity. 5. We'll continue to follow with you. Assessment and plan a care discussed with Dr. Herring.
--- NOTE | 2016-07-02 14:11 | P.PN ---
Subjective Principal diagnosis: Acute pancreatitis Patient is a 41-year-old white male admitted with acute pancreatitis. Ultrasound of gallbladder with evidence of numerous gallstones not moving beyond the neck of the gallbladder.. Intrahepatic bile ducts are not dilated but the common bile duct measures 9 mm. Patient continues to report epigastric and right upper quadrant pain. Denies nausea or vomiting. Afebrile. Urine output dark. White count increased to 32.6 with neutrophil bandemia of 9.5. Total bilirubin increased to 2.5. Transaminases decreased. Plasma lactic acid venous 2.4. Amylase and lipase decreased. Gastrointestinal service has seen and evaluated patient, recommendations noted. Infectious disease consult in place, patient has been started on IV Zosyn. Objective - Vital Signs Vital signs: Vital Signs Temp 98.3 F 07/02/16 07:00 Pulse 121 H 07/02/16 08:00 Resp 20 07/02/16 08:00 BP 141/95 07/02/16 07:00 Pulse Ox 95 07/02/16 07:00 Intake & Output 07/01/16 07/02/16 07/02/16 18:59 06:59 18:59 Intake Total 1850 Output Total 150 Balance 1850 -150 Intake: Intake, IV Titration 1850 Amount ACETAMINOPHEN IV (For NPO 200 ) 1,000 mg In Empty Bag 1 bag @ 400 mls/hr IVPB Q6HR [facility]AK Rx#:[id number] Sodium Chloride 0.9% 1, 1650 000 ml @ 100 mls/hr IV . Q10H STA Rx#:[id number] Output: Urine 150 Other: Voiding Method Toilet Urinal # Voids 2 1 1 - Exam GENERAL: Pt awake and alert, lying in bed, well-nourished, and in no acute distress. ABDOMEN: Soft, moderate epigastric and right upper quadrant tenderness, mildly distended, normoactive bowel sounds. No guarding, no rebound. EXTREMITIES: Palpable peripheral pulses. NEUROLOGICAL: Pt oriented x 3. - Labs CBC & Chem 7: 07/02/16 07:42 07/02/16 07:42 Labs: Abnormal Lab Results - Last 24 Hours (Table) 07/01/16 07/02/16 07/02/16 Range/Units 08:36 07:42 07:42 WBC 32.6 H* (3.8-10.6) k/uL Neutrophils # (Manual) 29.8 H (1.3-7.7) k/uL Monocytes # (Manual) 1.8 H (0-1.0) k/uL PT (9.0-12.0) sec Sodium 136 L (137-145) mmol/L Carbon Dioxide 19 L (22-30) mmol/L Glucose 142 H (74-99) mg/dL Plasma Lactic Acid Mynor (0.7-2.0) mmol/L Calcium 8.0 L (8.4-10.2) mg/dL Total Bilirubin 2.5 H (0.2-1.3) mg/dL AST 74 H (17-59) U/L ALT 143 H (21-72) U/L Alkaline Phosphatase 180 H (38-126) U/L Triglycerides 153 H (<150) mg/dL HDL Cholesterol 39 L (40-60) mg/dL Amylase 1199 H* (30-110) U/L Lipase 3315 H (23-300) U/L 07/02/16 07/02/16 Range/Units 07:53 09:15 WBC (3.8-10.6) k/uL Neutrophils # (Manual) (1.3-7.7) k/uL Monocytes # (Manual) (0-1.0) k/uL PT 14.8 H (9.0-12.0) sec Sodium (137-145) mmol/L Carbon Dioxide (22-30) mmol/L Glucose (74-99) mg/dL Plasma Lactic Acid Mynor 2.4 H* (0.7-2.0) mmol/L Calcium (8.4-10.2) mg/dL Total Bilirubin (0.2-1.3) mg/dL AST (17-59) U/L ALT (21-72) U/L Alkaline Phosphatase (38-126) U/L Triglycerides (<150) mg/dL HDL Cholesterol (40-60) mg/dL Amylase (30-110) U/L Lipase (23-300) U/L Assessment and Plan Plan: Impression: 1. Sepsis suspect secondary to acute pancreatitis with cholelithiasis; possible choledocholithiasis with possible ascending cholangitis. Plan: Continue to monitor patient. Continue IV antibiotics per infectious disease recommendations. Continue nothing by mouth diet except medications, ice chips, popsicles. Continue IV hydration. Continue supportive treatment and pain management. Continue GI prophylaxis. Continue to follow with primary service, gastrointestinal service and infectious disease service. Patient will need laparoscopic cholecystectomy when medically stable. Repeat CBC, CMP, amylase and lipase in a.m. The above impression and plan have been discussed and directed by Dr. Hicks. Chris MOLINA acting as scribe for Dr. Hicks.
[2016-07-02] MEDS: PIPERACILLIN-TAZOBACTAM 3.375 GM in DEXTROSE/WATER 1 50ML.BAG IVPB SCH (15:04)
--- NOTE | 2016-07-02 15:45 | P.PN ---
Subjective 41-year-old being seen this morning on rounds sitting up on the edge of the bed easily agitated nursing reports the patient is requiring IV dilaudid 1 mg every 3 hours when necessary for severe pain patient states he's having right upper quadrant abdominal pain patient points to the abdomen as to the reference point no nausea no vomiting patient remains afebrile temp this morning is 96.9. IV fluid at 150 an hour patients being followed currently by GI and surgical and infectious disease service all recommendations noted appreciated and reviewed Imaging studies reviewed The labs were reviewed the amylase is down to 1199 lipase down to 3315 Objective - Vital Signs Vital signs: Vital Signs Temp 96.9 F L 07/02/16 15:00 Pulse 136 H 07/02/16 15:00 Resp 20 07/02/16 15:00 BP 157/80 07/02/16 15:00 Pulse Ox 96 07/02/16 15:00 Intake & Output 07/01/16 07/02/16 07/02/16 18:59 06:59 18:59 Intake Total 1850 Output Total 400 Balance 1850 -400 Intake: Intake, IV Titration 1850 Amount ACETAMINOPHEN IV (For NPO 200 ) 1,000 mg In Empty Bag 1 bag @ 400 mls/hr IVPB Q6HR [facility]AK Rx#:[id number] Sodium Chloride 0.9% 1, 1650 000 ml @ 100 mls/hr IV . Q10H STA Rx#:[id number] Output: Urine 400 Other: Voiding Method Toilet Urinal # Voids 2 1 1 - Exam Physical exam 41-year-old male sitting up on the edge the bed does not appear in any acute distress is oriented 3 Lungs essentially clear adequate air movement on room air no cough no shortness of breath Heart S1-S2 audible and regular denying chest pain no murmur Abdomen soft diffuse tenderness to the epigastric and right upper quadrant mildly distended bowel tones present no guarding no rebound Extremities no evidence of any edema - Labs CBC & Chem 7: 07/02/16 07:42 07/02/16 07:42 Labs: Abnormal Lab Results - Last 24 Hours (Table) 07/02/16 07/02/16 07/02/16 Range/Units 07:42 07:42 07:53 WBC 32.6 H* (3.8-10.6) k/uL Neutrophils # (Manual) 29.8 H (1.3-7.7) k/uL Monocytes # (Manual) 1.8 H (0-1.0) k/uL PT 14.8 H (9.0-12.0) sec Sodium 136 L (137-145) mmol/L Carbon Dioxide 19 L (22-30) mmol/L Glucose 142 H (74-99) mg/dL Plasma Lactic Acid Mynor (0.7-2.0) mmol/L Calcium 8.0 L (8.4-10.2) mg/dL Total Bilirubin 2.5 H (0.2-1.3) mg/dL AST 74 H (17-59) U/L ALT 143 H (21-72) U/L Alkaline Phosphatase 180 H (38-126) U/L Amylase 1199 H* (30-110) U/L Lipase 3315 H (23-300) U/L 07/02/16 Range/Units 09:15 WBC (3.8-10.6) k/uL Neutrophils # (Manual) (1.3-7.7) k/uL Monocytes # (Manual) (0-1.0) k/uL PT (9.0-12.0) sec Sodium (137-145) mmol/L Carbon Dioxide (22-30) mmol/L Glucose (74-99) mg/dL Plasma Lactic Acid Mynor 2.4 H* (0.7-2.0) mmol/L Calcium (8.4-10.2) mg/dL Total Bilirubin (0.2-1.3) mg/dL AST (17-59) U/L ALT (21-72) U/L Alkaline Phosphatase (38-126) U/L Amylase (30-110) U/L Lipase (23-300) U/L Assessment and Plan Plan: impression Present on admission diffuse abdominal pain elevated lipase amylase consistent with acute severe pancreatitis Obesity BMI 38 Chronic hepatitis C Major depressive disorder History of opiate abuse prescription drugs episodic last used 2 weeks prior per patient history Current every day smoker 1 pack a day History of alcoholism in remission Present on admission leukocytosis and elevated transaminase Echocardiogram done May 2016 left ventricular systolic function normal EF between 65 and 60% no pulmonary hypertension Present on admission hyperbilirubinemia suspected secondary to edema no evidence of biliary duct dilatation or cholelithiasis History of chronic sedative, hypnotic or anxiolytic abuse History of a prior urine drug screen persistently positive for non-prescribed benzodiazepine last checked 05/02/2016 Mood disorder Essential hypertension Present on admission leukocytosis tachycardic elevated lactic acid suspect sepsis due to severe acute pancreatitis with unclear etiology Plan IV fluid at 150 hour Surgical eval noted GIs recommendations reviewed ERCP MRCP not planned at this time Repeat labs GI prophylaxis Resume home meds as appropriate Further recommendations pending will follow Dr. Escamilla infectious disease initiated IV Zosyn await further input The above dictated assessment and findings were discussed with dr mehta Impression and the plan of care have been dictated as directed. Ana Meredith nurse practitioner acting as a scribe for dr mehta
--- NOTE | 2016-07-02 17:22 | PN ---
DATE OF SERVICE: 07/02/2016 CHIEF COMPLAINT: Pancreatitis. HISTORY OF PRESENT ILLNESS: This gentleman is still complaining of pain and actually says it is worse. He has had no vomiting and no fever, chills, etc. Labs are improving. Blood sugars are good. 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 CHEST: Chest clear. IMPRESSION: Acute on chronic pancreatitis. PLAN: Slowly progress activity and diet.
[2016-07-02 20:08] LABS: Glucose,Whole Blood 180 mg/dL (75-99)
[2016-07-02] MEDS ORDERED: FLUMAZENIL 0.1 MG/ML 5 ML VIAL IVP STA (20:13)
[2016-07-02 20:58] LABS: ALT 96 U/L (21-72); AST 77 U/L (17-59); Alkaline Phosphatase 124 U/L (38-126); Anion Gap 13 mmol/L; Blood Urea Nitrogen 13 mg/dL (9-20); Calcium 7.7 mg/dL (8.4-10.2); Carbon Dioxide 19 mmol/L (22-30); Chloride 99 mmol/L (98-107); Glucose 172 mg/dL (74-99); Magnesium 1.3 mg/dL (1.6-2.3); Non-African American GFR(MDRD) >60 (>60 ml/min/1.73 sqM); Sodium 131 mmol/L (137-145); Total Bilirubin 2.7 mg/dL (0.2-1.3); Total Protein 6.1 g/dL (6.3-8.2)
[2016-07-02 21:06] LABS: Potassium 5.3 mmol/L (3.5-5.1)
[2016-07-02 22:09] LABS: Basophils # (A) 0.1 k/uL (0-0.2); Basophils % (A) 1 %; CH 30.2; CHCM 33.4; Eosinophils # (A) 0.3 k/uL (0-0.7); Eosinophils % (A) 1 %; HCT 41.5 % (39.0-53.0); HDW 2.24; HGB 12.9 gm/dL (13.0-17.5); Immature Gran Flag Marked; Luc # (Auto) 0.33; Luc % (Auto) 1; Lymphocytes # (A) 1.5 k/uL (1.0-4.8); Lymphocytes % (A) 5 %; MCH 28.1 pg (25.0-35.0); MCV 90.6 fL (80.0-100.0); Mean Platelet Volume 10.9; Monocytes # (A) 1.2 k/uL (0-1.0); Monocytes % (A) 5 %; Neutrophils # (A) 23.7 k/uL (1.3-7.7); Neutrophils % (A) 87 %; RBC 4.58 m/uL (4.30-5.90); RDW 14.3 % (11.5-15.5); WBC (Perox) 26.05
[2016-07-02 22:10] LABS: WBC 27.1 k/uL (3.8-10.6)
[2016-07-02 22:21] LABS: Amorphous Sediment,Urine Rare /hpf; Appearance,Urine Clear (Clear); Bilirubin,Urine Negative (Negative); Glucose,Urine (UA) Negative (Negative); Ketones,Urine Trace (Negative); Leukocyte Esterase,Urine Negative (Negative); Nitrite,Urine Negative (Negative); Particle Count 7246; Protein,Urine 2+ (Negative); RBC,Urine 4 /hpf (0-5); Squamous Epithelial Cell,Urine 1 /hpf (0-4); UA Billing (MACRO vs. MICRO) MICRO; WBC,Urine 1 /hpf (0-5)
[2016-07-02] MEDS: MAGNESIUM SULFATE-D5W PMX 1 GM in DEXTROSE/WATER 1 100ML.BAG IVPB SCH ×2 (22:27→23:27)
[2016-07-02] MEDS: MIRTAZAPINE 45 MG TABLET PO SCH (22:27)
[2016-07-02 22:47] LABS: Manual Review Performed; Nucleated Red Blood Cells 0 /100 WBC (0-0); Total Cells Counted 100
[2016-07-03 00:33] LABS: ABG Base Excess -1.6 mmol/L; ABG HCO3 21 mmol/L (21-25); ABG PCO2 28 mmHg (35-45); ABG PH 7.49 (7.35-7.45); ABG PO2 67 mmHg (83-108); ABG TCO2 22 mmol/L (19-24)
[2016-07-03] MEDS: MAGNESIUM SULFATE-D5W PMX 1 GM in DEXTROSE/WATER 1 100ML.BAG IVPB SCH (00:49)
[2016-07-03] MEDS: PIPERACILLIN-TAZOBACTAM 3.375 GM in DEXTROSE/WATER 1 50ML.BAG IVPB SCH ×2 (00:49→08:30)
[2016-07-03] MEDS: HYDROmorphone 1 MG/ML 1 ML SYRINGE IV PRN (03:31)
[2016-07-03 04:43] LABS: CH 29.6; HCT 40.8 % (39.0-53.0); HDW 2.18; Immature Gran Flag Moderate; MCH 29.4 pg (25.0-35.0); MCHC 31.7 g/dL (31.0-37.0); MCV 92.8 fL (80.0-100.0); Mean Platelet Volume 8.9; RDW 14.1 % (11.5-15.5); WBC 24.5 k/uL (3.8-10.6); WBC (Perox) 26.48
[2016-07-03 04:52] LABS: ALT 91 U/L (21-72); AST 44 U/L (17-59); Alkaline Phosphatase 121 U/L (38-126); Anion Gap 10 mmol/L; Blood Urea Nitrogen 11 mg/dL (9-20); Calcium 7.6 mg/dL (8.4-10.2); Carbon Dioxide 21 mmol/L (22-30); Chloride 102 mmol/L (98-107); Glucose 134 mg/dL (74-99); Magnesium 2.1 mg/dL (1.6-2.3); Non-African American GFR(MDRD) >60 (>60 ml/min/1.73 sqM); Phosphorous 1.9 mg/dL (2.5-4.5); Potassium 3.6 mmol/L (3.5-5.1); Sodium 133 mmol/L (137-145); Total Bilirubin 2.2 mg/dL (0.2-1.3); Total Protein 5.3 g/dL (6.3-8.2)
[2016-07-03 05:03] LABS: Amylase 624 U/L (30-110)
[2016-07-03] MEDS: SODIUM CHLORIDE 0.9% 1,000 ML IV SCH ×3 (06:19→16:06)
[2016-07-03] MEDS: SODIUM PHOSPHATE 10 MMOL in SODIUM CHLORIDE 0.9% 250 ML IVPB SCH ×2 (06:20→08:30)
--- NOTE | 2016-07-03 07:04 | XR ---
INDICATION: Shortness of breath COMPARISON: CXR 02/28/16 FINDINGS: Single frontal view of the chest demonstrates hypoventilatory lungs with bibasilar atelectasis and bronchovascular crowding. There is cardiomegaly. There is no acute congestion. There is no pneumothorax. Trace left pleural effusion is suggested. There are no acute osseous findings. IMPRESSION: 1. Cardiomegaly. 2. Hypoventilatory lungs with bibasilar atelectasis and possible trace left pleural effusion.
--- NOTE | 2016-07-03 07:30 | CONS ---
DATE OF CONSULTATION: DATE OF SERVICE: 07/02/2016 REASON FOR CONSULTATION: Acute pancreatitis, leukocytosis and antibiotic recommendation. HISTORY OF PRESENT ILLNESS: The patient is a 41-year-old male presenting to the ER at [facility] on 07/01/2016 after midnight. The patient presented with abdominal pain. The patient said the pain started in the evening after eating a few of the hot dogs. Pain was sudden in onset and has been in the epigastric area describing to be sharp almost 9 out of 10. The patient has associated nausea and vomiting with it and no diarrhea. Patient did have some chills, but no high-grade fever. Subsequently, the patient presented to the ER where the patient has been evaluated the ER physician. Initial workup did show the patient's amylase was more than 7961 with lipase of more than 20,000. He did have an elevated liver enzymes with a bilirubin of 1.9. He did have an elevated white count 32.7. CT of abdomen and pelvis yesterday showed acute pancreatitis. Gallbladder was reported to be normal. Patient has been hydrated, but no antibiotic was started. He did have initial drop in his white count to 25.7; however, this morning the patient's white count did jump to 32.6. The patient remains to be afebrile. He continued complaining of abdominal pain, but has decreased intensity to about 7 out of 10 and no further vomiting. The patient denies having any chest pain or shortness of breath or cough. Currently the patient has been made n.p.o. I was asked to see the patient for further recommendation regarding need for antibiotic therapy. REVIEW OF SYSTEMS: CONSTITUTIONAL: Positive for weakness and chills. EYES: No complaint. ENT: No complaint. RESPIRATORY: No complaint. CARDIOVASCULAR: No complaint. : No complaint. GASTROINTESTINAL: As per HPI. MUSCULOSKELETAL: No complaint. INTEGUMENTARY: No complaint. PSYCHOLOGICAL: No complaint. ENDOCRINE: No complaint. NEUROLOGICAL: No complaint. Past medical history is significant for COPD, seizure disorder, chronic hepatitis C, osteoarthritis of the back. PAST SURGICAL HISTORY: Appendectomy and eye surgery. SOCIAL HISTORY: The patient is a current every day smoker, but denies any drinking or drug use. FAMILY HISTORY: Brother has history of chronic alcoholism , Father with history of [place] and schizophrenia. Allergies to CODEINE, LASIX, HALOPERIDOL. Medications include the patient is currently on IV fluid, Protonix, Zofran, Zyprexa, Narcan, Remeron, Dilaudid. On examination, blood pressure is 157/80 with a pulse 136, temperature 96.9. He is 96% on room air. General description is a middle-aged male lying in bed in no distress. No tachypnea or accessory muscle of respiration use. HEENT examination shows no pallor or scleral icterus. Oral mucous membrane is dry. NECK: Trachea central. No thyromegaly. LUNGS: Unlabored breathing. Clear to auscultation anteriorly. HEART: S1, S2, tachycardic. ABDOMEN: Soft. Patient is tender in the epigastric area. No guarding. Slight rigidity. No organomegaly. EXTREMITIES: No edema of feet. SKIN EXAMINATION: No rashes. No masses palpable. NEUROLOGICAL: The patient is awake, alert, oriented x3. Mood and affect normal. LABS: Hemoglobin is 15, white count 32.6. BUN of 17, creatinine 0.88. Electrolytes have been normal. Bilirubin is 2.5, AST 74, ALT 143, down from initial 251. His amylase is down to 1199 from admission of 7961 with lipase of 3315 down from initial high of more than 20,000. The CT of abdomen and pelvis with evidence of acute pancreatitis; however the gallbladder ultrasound showing multiple small stones they did not move out of the neck area with patient rolled. The intrahepatic bile ducts not dilated, but common bile duct measures 9 mm. DIAGNOSTIC IMPRESSION AND PLAN: Patient admitted to the hospital with abdominal pain with evidence of pancreatitis, more likely gallstone pancreatitis, now with the ultrasound of the gallbladder suggestive of multiple gallstones and question of possible acute cholecystitis the patient who did have a significant elevated white count, I am concern for possible cholangitis the likely organism will probably be the enteric gram-negative or likely anaerobes. PLAN: 1. Blood cultures x2 stat. 2. Patient started on Zosyn 3.375 grams q8 hours. 3. If the patient LFT remained elevated tomorrow, the patient will benefit from ERCP and possible cholecystectomy during this admission. 4. Aggressive IV fluid. 5. Will follow up on the clinical condition to further adjust the medication if needed. Thank you for this consultation. Will follow this patient along with you. Plan of care discussed in detail with the GI team. PINA
[2016-07-03 08:06] LABS: ABG Base Excess -2.8 mmol/L; ABG HCO3 21 mmol/L (21-25); ABG PCO2 30 mmHg (35-45); ABG PH 7.45 (7.35-7.45); ABG PO2 66 mmHg (83-108); ABG TCO2 22 mmol/L (19-24)
[2016-07-03 08:10] LABS: Add Differential Manual Differential
[2016-07-03 08:11] LABS: Manual Review Performed; Nucleated Red Blood Cells 0 /100 WBC (0-0); Total Cells Counted 100; Toxic Granulation Present
[2016-07-03 08:12] LABS: Toxic Vacuolation Present
[2016-07-03] MEDS: PANTOPRAZOLE 40 MG/10 ML VIAL IV SCH (08:31)
--- NOTE | 2016-07-03 08:47 | P.PN ---
Subjective Principal diagnosis: Severe pancreatitis 41-year-old male admitted with severe pancreatitis, leukocytosis with elevated transaminases and hyperbilirubinemia. Patient has a history of hepatitis C, bipolar disorder as well as prescription narcotic abuse questionable alcoholism. CT on admission reported no evidence of cholelithiasis or biliary ductal abnormalities. Yesterday patient had persistent leukocytosis without fever with elevated lactic acid. Infectious disease consultation recommendations are appreciated. Antibiotics started yesterday. Leukocytosis improved. ERCP discussed yesterday with infectious disease and decided to tentatively hold for another 24 hours pending repeat chemistries. Apparently yesterday evening he had an outside visitor bring him and undisclosed amount of drugs. According to the nursing staff patient consumed multiple tablets of Xanax not sure if he took any other substances. Urine screen positive for benzodiazepines. Received Romazicon. Patient was transferred to the ICU where he is currently tachycardic, tachypneic with a respiratory rate between 50 and 60, diaphoretic. Liver and pancreatic enzymes improving. Afebrile. Objective - Vital Signs Vital signs: Vital Signs Temp 98.8 F 07/03/16 08:00 Pulse 133 H 07/03/16 08:00 Resp 41 H 07/03/16 08:00 BP 141/91 07/03/16 08:00 Pulse Ox 93 L 07/03/16 08:08 Intake & Output 07/02/16 07/03/16 07/03/16 18:59 06:59 18:59 Intake Total 2435.0 687.5 Output Total 400 580 135 Balance -400 1855.0 552.5 Weight 129 kg Intake: IV 2375.0 687.5 Magnesium Sulfate-D5w Pmx 300 1 gm In Dextrose/Water 1 100ml.bag @ 100 mls/hr IVPB Q1H VINAYAK Rx#: [id number] Piperacillin-Tazobactam 3 50.0 12.5 .375 gm In Dextrose/Water 1 50ml.bag @ 12.5 mls/hr IVPB Q8HR VINAYAK Rx#: [id number] Sodium Chloride 0.9% 1, 1900 300 000 ml @ 150 mls/hr IV . Q6H40M VINAYAK Rx#:[id number] Sodium Phosphate 10 mmol 125 375 In Sodium Chloride 0.9% 250 ml @ 125 mls/hr IVPB Q2H VINAYAK Rx#:[id number] Oral 60 Output: Urine 400 580 135 Other: Voiding Method Urinal Indwelling Catheter # Voids 1 - Exam General appearance: The patient is anxious with elevated rest for a rate. Diaphoretic HET: Head is normocephalic and atraumatic. Pupils are equal and reactive. Oropharynx is clear without lesions. Neck: Supple without lymphadenopathy. Trachea midline. Heart: S1 S2. Regular rate and rhythm. Tachycardic. Lungs: Increased respiratory rate poor inspiratory effort shallow breathing.. Abdomen: Soft, diffuse tenderness bilateral upper abdomen midepigastrium with bowel sounds. No peritoneal signs. No palpable organomegaly or masses. Extremities: Normal skin color and turgor. No cyanosis, rash, ulceration, clubbing, or edema. Radial and pedal pulses are 2/4 bilaterally. Walker with celeste urine. Neurological: No focal deficits. Strength and sensation are grossly intact. - Labs CBC & Chem 7: 07/03/16 04:24 07/03/16 04:24 Labs: Abnormal Lab Results - Last 24 Hours (Table) 07/02/16 07/02/16 07/02/16 Range/Units 07:42 07:42 09:15 WBC 32.6 H* (3.8-10.6) k/uL Hgb (13.0-17.5) gm/dL Neutrophils # (1.3-7.7) k/uL Neutrophils # (Manual) 29.8 H (1.3-7.7) k/uL Lymphocytes # (Manual) (1.0-4.8) k/uL Monocytes # (0-1.0) k/uL Monocytes # (Manual) 1.8 H (0-1.0) k/uL ABG pH (7.35-7.45) ABG pCO2 (35-45) mmHg ABG pO2 (83-108) mmHg Sodium 136 L (137-145) mmol/L Potassium (3.5-5.1) mmol/L Carbon Dioxide 19 L (22-30) mmol/L Glucose 142 H (74-99) mg/dL POC Glucose (mg/dL) (75-99) mg/dL Plasma Lactic Acid Mynor 2.4 H* (0.7-2.0) mmol/L Calcium 8.0 L (8.4-10.2) mg/dL Phosphorus (2.5-4.5) mg/dL Magnesium (1.6-2.3) mg/dL Total Bilirubin 2.5 H (0.2-1.3) mg/dL AST 74 H (17-59) U/L ALT 143 H (21-72) U/L Alkaline Phosphatase 180 H (38-126) U/L Total Protein (6.3-8.2) g/dL Albumin (3.5-5.0) g/dL Amylase 1199 H* (30-110) U/L Lipase 3315 H (23-300) U/L Urine Protein (Negative) Urine Ketones (Negative) Urine Blood (Negative) Amorphous Sediment (None) /hpf Urine Opiates Screen (NotDetected) U Benzodiazepines Scrn (NotDetected) 07/02/16 07/02/16 07/02/16 Range/Units 19:54 20:25 20:25 WBC (3.8-10.6) k/uL Hgb (13.0-17.5) gm/dL Neutrophils # (1.3-7.7) k/uL Neutrophils # (Manual) (1.3-7.7) k/uL Lymphocytes # (Manual) (1.0-4.8) k/uL Monocytes # (0-1.0) k/uL Monocytes # (Manual) (0-1.0) k/uL ABG pH (7.35-7.45) ABG pCO2 (35-45) mmHg ABG pO2 (83-108) mmHg Sodium 131 L (137-145) mmol/L Potassium 5.3 H (3.5-5.1) mmol/L Carbon Dioxide 19 L (22-30) mmol/L Glucose 172 H (74-99) mg/dL POC Glucose (mg/dL) 180 H (75-99) mg/dL Plasma Lactic Acid Mynor 2.5 H* (0.7-2.0) mmol/L Calcium 7.7 L (8.4-10.2) mg/dL Phosphorus (2.5-4.5) mg/dL Magnesium 1.3 L (1.6-2.3) mg/dL Total Bilirubin 2.7 H (0.2-1.3) mg/dL AST 77 H (17-59) U/L ALT 96 H (21-72) U/L Alkaline Phosphatase (38-126) U/L Total Protein 6.1 L (6.3-8.2) g/dL Albumin 3.3 L (3.5-5.0) g/dL Amylase (30-110) U/L Lipase (23-300) U/L Urine Protein (Negative) Urine Ketones (Negative) Urine Blood (Negative) Amorphous Sediment (None) /hpf Urine Opiates Screen (NotDetected) U Benzodiazepines Scrn (NotDetected) 07/02/16 07/02/16 07/02/16 Range/Units 21:20 21:20 21:23 WBC 27.1 H* (3.8-10.6) k/uL Hgb 12.9 L (13.0-17.5) gm/dL Neutrophils # 23.7 H (1.3-7.7) k/uL Neutrophils # (Manual) 25.7 H (1.3-7.7) k/uL Lymphocytes # (Manual) (1.0-4.8) k/uL Monocytes # 1.2 H (0-1.0) k/uL Monocytes # (Manual) (0-1.0) k/uL ABG pH (7.35-7.45) ABG pCO2 (35-45) mmHg ABG pO2 (83-108) mmHg Sodium (137-145) mmol/L Potassium (3.5-5.1) mmol/L Carbon Dioxide (22-30) mmol/L Glucose (74-99) mg/dL POC Glucose (mg/dL) (75-99) mg/dL Plasma Lactic Acid Mynor (0.7-2.0) mmol/L Calcium (8.4-10.2) mg/dL Phosphorus (2.5-4.5) mg/dL Magnesium (1.6-2.3) mg/dL Total Bilirubin (0.2-1.3) mg/dL AST (17-59) U/L ALT (21-72) U/L Alkaline Phosphatase (38-126) U/L Total Protein (6.3-8.2) g/dL Albumin (3.5-5.0) g/dL Amylase (30-110) U/L Lipase (23-300) U/L Urine Protein 2+ H (Negative) Urine Ketones Trace H (Negative) Urine Blood Moderate H (Negative) Amorphous Sediment Rare H (None) /hpf Urine Opiates Screen Detected H (NotDetected) U Benzodiazepines Scrn Detected H (NotDetected) 07/03/16 07/03/16 07/03/16 Range/Units 00:24 04:24 04:24 WBC 24.5 H (3.8-10.6) k/uL Hgb (13.0-17.5) gm/dL Neutrophils # (1.3-7.7) k/uL Neutrophils # (Manual) 22.1 H (1.3-7.7) k/uL Lymphocytes # (Manual) 0.5 L (1.0-4.8) k/uL Monocytes # (0-1.0) k/uL Monocytes # (Manual) 2.0 H (0-1.0) k/uL ABG pH 7.49 H (7.35-7.45) ABG pCO2 28 L (35-45) mmHg ABG pO2 67 L (83-108) mmHg Sodium 133 L (137-145) mmol/L Potassium (3.5-5.1) mmol/L Carbon Dioxide 21 L (22-30) mmol/L Glucose 134 H (74-99) mg/dL POC Glucose (mg/dL) (75-99) mg/dL Plasma Lactic Acid Mynor (0.7-2.0) mmol/L Calcium 7.6 L (8.4-10.2) mg/dL Phosphorus 1.9 L (2.5-4.5) mg/dL Magnesium (1.6-2.3) mg/dL Total Bilirubin 2.2 H (0.2-1.3) mg/dL AST (17-59) U/L ALT 91 H (21-72) U/L Alkaline Phosphatase (38-126) U/L Total Protein 5.3 L (6.3-8.2) g/dL Albumin 2.7 L (3.5-5.0) g/dL Amylase 624 H* (30-110) U/L Lipase 1202 H (23-300) U/L Urine Protein (Negative) Urine Ketones (Negative) Urine Blood (Negative) Amorphous Sediment (None) /hpf Urine Opiates Screen (NotDetected) U Benzodiazepines Scrn (NotDetected) 07/03/16 Range/Units 07:45 WBC (3.8-10.6) k/uL Hgb (13.0-17.5) gm/dL Neutrophils # (1.3-7.7) k/uL Neutrophils # (Manual) (1.3-7.7) k/uL Lymphocytes # (Manual) (1.0-4.8) k/uL Monocytes # (0-1.0) k/uL Monocytes # (Manual) (0-1.0) k/uL ABG pH (7.35-7.45) ABG pCO2 30 L (35-45) mmHg ABG pO2 66 L (83-108) mmHg Sodium (137-145) mmol/L Potassium (3.5-5.1) mmol/L Carbon Dioxide (22-30) mmol/L Glucose (74-99) mg/dL POC Glucose (mg/dL) (75-99) mg/dL Plasma Lactic Acid Mynor (0.7-2.0) mmol/L Calcium (8.4-10.2) mg/dL Phosphorus (2.5-4.5) mg/dL Magnesium (1.6-2.3) mg/dL Total Bilirubin (0.2-1.3) mg/dL AST (17-59) U/L ALT (21-72) U/L Alkaline Phosphatase (38-126) U/L Total Protein (6.3-8.2) g/dL Albumin (3.5-5.0) g/dL Amylase (30-110) U/L Lipase (23-300) U/L Urine Protein (Negative) Urine Ketones (Negative) Urine Blood (Negative) Amorphous Sediment (None) /hpf Urine Opiates Screen (NotDetected) U Benzodiazepines Scrn (NotDetected) Microbiology - Last 24 Hours (Table) 07/02/16 21:20 Urine Culture - Preliminary Urine,Catheterized Assessment and Plan (1) Acute pancreatitis Narrative/Plan: 41-year-old male admitted with acute severe pancreatitis with leukocytosis and elevated transaminases hyperbilirubinemia initially suspected secondary to pancreatic edema. Possible sepsis. Interim ultrasound reported evidence of cholelithiasis and common bile duct dilatation 0.9 cm without intrahepatic dilatation or definitive CBD stone. Persistent leukocytosis with hyperbilirubinemia and improved transaminases. Etiology of pancreatitis is unclear possibly related to passage of gallstone possible medication possible drug induced possible alcohol; inconsistent reliability of patient's history and recent events over the last 24 hours consuming multiple tablets of Xanax. Acute cholangitis is felt to be less likely his overall presentation seems to be consistent with acute severe pancreatitis. Status: Acute (2) Obesity (BMI 30-39.9) Status: Chronic (3) History of hepatitis C Status: Chronic (4) Opiate abuse, episodic Status: Chronic (5) Major depressive disorder Status: Chronic (6) Elevated lactic acid level Status: Acute (7) Benzodiazepine (tranquilizer) overdose Narrative/Plan: Positive benzodiazepine urine screen Status: Acute (8) Acute respiratory distress Narrative/Plan: Benzodiazepine overdose Status: Acute Plan: 1. ERCP not indicated at this time considering enzymes are improving. Antibiotics per infectious disease. Blood cultures pending. 2. ICU/line welder monitoring. 3. Bedside sitter. Recommend psychiatry consult. Assessment and plan of care discussed with Dr. Herring.
[2016-07-03] MEDS ORDERED: Potassium Replacement Protocol 1 EACH MISC MISCELLANE PRN (08:56)
[2016-07-03] MEDS ORDERED: POTASSIUM CHLORIDE ER 20 MEQ TAB.ER PO ONE (09:00)
--- NOTE | 2016-07-03 09:00 | P.CNPUL ---
History of Present Illness Consult date: 07/03/16 Reason for consult: dyspnea, hypoxemia, other Chief complaint: Abdominal pain vomiting History of present illness: 41-year-old male who presented for abdominal pain. He presented to the emergency department. This was on July 01. He apparently came on suddenly while he was at rest. Entire it involved his entire abdomen. He described as severe cramping or aching pain. Anyway the patient was admitted to the hospital with a diagnosis of pancreatitis. I was called last night because the patient was on the floor. He apparently was thought to have taken some medications from home including some Xanax. An 18 was called. He was very groggy and sleepy. Dylan call me from the [facility] the patient was very lethargic. She is given some Romazicon and he woke woke up. She was concerned because the patient fell back asleep again of his various sonorous respirations very lethargic. I was obviously concerned because additional doses of Romazicon might stimulator potentiate seizure disorder. Therefore we decided to move the patient to the ICU for further observation. Currently the patient's on at 50% Venturi mask. He very agitated. He is pulling off the mask frequently. It a blood gases showed a pO2 of 66 a pCO2 of 30 0.45.Thisisconsistentwitharespiratoryalkalosisandhypoxemia.Thebloodgaswasapparen tlydoneonroomair. AsI[id number]. He' sbeenseenbyGI.Hisamylaseandlipasearereturningtonormal.Heapparentlyisanondrinker. ThereisapparentlynostoneandsoERCPisnotbeingconsideredatthistime. Heisveryconfused. ApparentlyaccordingtoJaimetakesalotofXanaxathome. Review of Systems The review of systems is very unreliable at this time. ROS unobtainable: due to mental status (Mental status related to prevent adequate review of systems.) Past Medical History Past Medical History: COPD, Seizure Disorder Additional Past Medical History / Comment(s): History of seizures-per patient, his last seizure was in 2011, Hepatitis C, Degenerative disc disease in back, possible arthritis in knees, hips and arms. History of Any Multi-Drug Resistant Organisms: None Reported Past Surgical History: Appendectomy Additional Past Surgical History / Comment(s): Appendectomy-1996, eye surgery- 1998 Past Anesthesia/Blood Transfusion Reactions: No Reported Reaction Past Psychological History: Anxiety, Bipolar, Depression Smoking Status: Current every day smoker Past Alcohol Use History: Rare Additional Past Alcohol Use History / Comment(s): Patient reports he drinks approximately 4 times a year-last drink per patient was this passed wednesday. 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 pt states that he is buying them off the street - Past Family History Brother(s) Additional Family Medical History / Comment(s): Chronic alcoholism Sister(s) Additional Family Medical History / Comment(s): Chronic alcoholism Daughter(s) Additional Family Medical History / Comment(s): One daughter healthy Son(s) Additional Family Medical History / Comment(s): One son healthy Father History Unknown: Yes Family Medical History: AICD/Pacemaker, Myocardial Infarction (MA) Additional Family Medical History / Comment(s): Schizophrenia. Per patient, his father at the age of 59 Mother History Unknown: Yes Family Medical History: No Reported History Additional Family Medical History / Comment(s): HPV Medications and Allergies Home Medications Medication Instructions Recorded Confirmed Type Atorvastatin [Lipitor] 20 mg PO HS 05/02/16 07/01/16 History Omeprazole 40 mg PO HS 05/02/16 07/01/16 History Ibuprofen [Motrin] 800 mg PO Q8HR PRN 07/01/16 07/01/16 History Lisinopril [Zestril] 5 mg PO HS 07/01/16 07/01/16 History Mirtazapine [Remeron] 45 mg PO HS 07/01/16 07/01/16 History OLANZapine [ZyPREXA] 5 mg PO DAILY 07/01/16 07/01/16 History Allergies Allergy/AdvReac Type Severity Reaction Status Date / Time codeine Allergy Swelling Verified 07/01/16 09:27 furosemide [From Lasix] Allergy Rash/Hives Verified 07/01/16 09:27 haloperidol [From Haldol] Allergy Unknown Verified 07/01/16 09:27 haloperidol lactate Allergy Unknown Verified 07/01/16 09:27 [From Haldol] prochlorperazine edisylate Allergy Swelling Verified 07/01/16 09:27 [From Compazine] prochlorperazine maleate Allergy Swelling Verified 07/01/16 09:27 [From Compazine] milk AdvReac Severe Diarrhea Verified 07/01/16 09:27 Milk Containing Products AdvReac Severe Diarrhea Verified 07/01/16 09:27 Physical Exam Osteopathic Statement: *. No significant issues noted on an osteopathic structural exam other than those noted in the History and Physical/Consult. Vitals: Vital Signs Temp Pulse Pulse Resp BP BP Pulse Ox 07/03/16 08:08 93 L 07/03/16 08:00 98.8 F 133 H 41 H 141/91 96 07/03/16 07:00 138 H 39 H 152/82 93 L 07/03/16 06:00 136 H 54 H 144/68 92 L 07/03/16 05:00 137 H 40 H 144/77 92 L 07/03/16 04:00 98.4 F 134 H 41 H 136/78 93 L 07/03/16 03:00 136 H 58 H 140/83 93 L 07/03/16 02:00 135 H 56 H 153/85 92 L 07/03/16 01:00 140 H 38 H 142/76 92 L 07/03/16 00:00 98.6 F 137 H 42 H 158/83 93 L 07/02/16 23:00 137 H 21 130/83 93 L 07/02/16 22:00 137 H 38 H 140/81 95 07/02/16 21:13 99.9 F H 133 H 34 H 141/86 94 L 07/02/16 19:50 100.5 F H 142 H 48 H 127/97 94 L 07/02/16 16:00 136 H 20 07/02/16 15:00 96.9 F L 136 H 20 157/80 96 Intake and Output 07/02/16 07/03/16 07/03/16 22:59 06:59 14:59 Intake Total 310 2125.0 687.5 Output Total 225 455 135 Balance 85 1670.0 552.5 Intake: IV 250 2125.0 687.5 Magnesium Sulfate-D5w Pmx 100 200 1 gm In Dextrose/Water 1 100ml.bag @ 100 mls/hr IVPB Q1H VINAYAK Rx#: [id number] Piperacillin-Tazobactam 3 50.0 12.5 .375 gm In Dextrose/Water 1 50ml.bag @ 12.5 mls/hr IVPB Q8HR VINAYAK Rx#: [id number] Sodium Chloride 0.9% 1, 150 1750 300 000 ml @ 150 mls/hr IV . Q6H40M VINAYAK Rx#:[id number] Sodium Phosphate 10 mmol 125 375 In Sodium Chloride 0.9% 250 ml @ 125 mls/hr IVPB Q2H VINAYAK Rx#:[id number] Oral 60 Output: Urine 225 455 135 Other: Voiding Method Urinal Indwelling Catheter Weight 129 kg Very agitated. Very tachypneic and dyspneic appearing. Respiratory rates probably in the 30s. HEENT examination is grossly unremarkable. Mixed membranes are dry. His get a mask in place but he keeps on getting It off. Next Neck supple. Cardiovascular examination reveals tachycardia. Heart rates in the 130s. Lungs reveal a few scattered rhonchi. Abdomen soft. Extremities are intact. Results - Laboratory Findings CBC and BMP: 07/03/16 04:24 07/03/16 04:24 ABG ABG pH 7.45 (7.35-7.45) 07/03/16 07:45 ABG pCO2 30 mmHg (35-45) L 07/03/16 07:45 ABG pO2 66 mmHg (83-108) L 07/03/16 07:45 ABG O2 Saturation 94.0 % (94-97) 07/03/16 07:45 PT/INR, D-dimer PT 14.8 sec (9.0-12.0) H 07/02/16 07:53 INR 1.5 (<1.1) 07/02/16 07:53 Abnormal lab findings: Abnormal Labs 07/01/16 07/01/16 07/01/16 03:47 08:36 08:36 WBC 25.7 H* Hgb Neutrophils # 23.6 H Neutrophils # (Manual) Lymphocytes # 0.9 L Lymphocytes # (Manual) Monocytes # Monocytes # (Manual) PT ABG pH ABG pCO2 ABG pO2 Sodium Potassium Carbon Dioxide Glucose 193 H POC Glucose (mg/dL) Plasma Lactic Acid Mynor Calcium Phosphorus Magnesium Total Bilirubin 2.3 H AST 203 H ALT 269 H Alkaline Phosphatase 320 H Total Protein Albumin Triglycerides HDL Cholesterol Amylase 1791 H* Lipase 6596 H Ur Specific Foley >1.050 H Urine Protein 1+ H Urine Ketones Urine Blood Amorphous Sediment Urine Opiates Screen U Benzodiazepines Scrn 07/01/16 07/02/16 07/02/16 08:36 07:42 07:42 WBC 32.6 H* Hgb Neutrophils # Neutrophils # (Manual) 29.8 H Lymphocytes # Lymphocytes # (Manual) Monocytes # Monocytes # (Manual) 1.8 H PT ABG pH ABG pCO2 ABG pO2 Sodium 136 L Potassium Carbon Dioxide 19 L Glucose 142 H POC Glucose (mg/dL) Plasma Lactic Acid Mynor Calcium 8.0 L Phosphorus Magnesium Total Bilirubin 2.5 H AST 74 H ALT 143 H Alkaline Phosphatase 180 H Total Protein Albumin Triglycerides 153 H HDL Cholesterol 39 L Amylase 1199 H* Lipase 3315 H Ur Specific Foley Urine Protein Urine Ketones Urine Blood Amorphous Sediment Urine Opiates Screen U Benzodiazepines Scrn 07/02/16 07/02/16 07/02/16 07:53 09:15 19:54 WBC Hgb Neutrophils # Neutrophils # (Manual) Lymphocytes # Lymphocytes # (Manual) Monocytes # Monocytes # (Manual) PT 14.8 H ABG pH ABG pCO2 ABG pO2 Sodium Potassium Carbon Dioxide Glucose POC Glucose (mg/dL) 180 H Plasma Lactic Acid Mynor 2.4 H* Calcium Phosphorus Magnesium Total Bilirubin AST ALT Alkaline Phosphatase Total Protein Albumin Triglycerides HDL Cholesterol Amylase Lipase Ur Specific Foley Urine Protein Urine Ketones Urine Blood Amorphous Sediment Urine Opiates Screen U Benzodiazepines Scrn 07/02/16 07/02/16 07/02/16 20:25 20:25 21:20 WBC Hgb Neutrophils # Neutrophils # (Manual) Lymphocytes # Lymphocytes # (Manual) Monocytes # Monocytes # (Manual) PT ABG pH ABG pCO2 ABG pO2 Sodium 131 L Potassium 5.3 H Carbon Dioxide 19 L Glucose 172 H POC Glucose (mg/dL) Plasma Lactic Acid Mynor 2.5 H* Calcium 7.7 L Phosphorus Magnesium 1.3 L Total Bilirubin 2.7 H AST 77 H ALT 96 H Alkaline Phosphatase Total Protein 6.1 L Albumin 3.3 L Triglycerides HDL Cholesterol Amylase Lipase Ur Specific Foley Urine Protein 2+ H Urine Ketones Trace H Urine Blood Moderate H Amorphous Sediment Rare H Urine Opiates Screen U Benzodiazepines Scrn 07/02/16 07/02/16 07/03/16 21:20 21:23 00:24 WBC 27.1 H* Hgb 12.9 L Neutrophils # 23.7 H Neutrophils # (Manual) 25.7 H Lymphocytes # Lymphocytes # (Manual) Monocytes # 1.2 H Monocytes # (Manual) PT ABG pH 7.49 H ABG pCO2 28 L ABG pO2 67 L Sodium Potassium Carbon Dioxide Glucose POC Glucose (mg/dL) Plasma Lactic Acid Mynor Calcium Phosphorus Magnesium Total Bilirubin AST ALT Alkaline Phosphatase Total Protein Albumin Triglycerides HDL Cholesterol Amylase Lipase Ur Specific Foley Urine Protein Urine Ketones Urine Blood Amorphous Sediment Urine Opiates Screen Detected H U Benzodiazepines Scrn Detected H 07/03/16 07/03/16 07/03/16 04:24 04:24 07:45 WBC 24.5 H Hgb Neutrophils # Neutrophils # (Manual) 22.1 H Lymphocytes # Lymphocytes # (Manual) 0.5 L Monocytes # Monocytes # (Manual) 2.0 H PT ABG pH ABG pCO2 30 L ABG pO2 66 L Sodium 133 L Potassium Carbon Dioxide 21 L Glucose 134 H POC Glucose (mg/dL) Plasma Lactic Acid Mynor Calcium 7.6 L Phosphorus 1.9 L Magnesium Total Bilirubin 2.2 H AST ALT 91 H Alkaline Phosphatase Total Protein 5.3 L Albumin 2.7 L Triglycerides HDL Cholesterol Amylase 624 H* Lipase 1202 H Ur Specific Foley Urine Protein Urine Ketones Urine Blood Amorphous Sediment Urine Opiates Screen U Benzodiazepines Scrn - Diagnostic Findings Chest x-ray: image reviewed (Chest x-ray labs and medications are all reviewed.) Assessment and Plan (1) Abdominal pain Status: Acute (2) Acute pancreatitis Status: Acute (3) Acute respiratory distress Status: Acute (4) Benzodiazepine (tranquilizer) overdose Status: Acute (5) Elevated lactic acid level Status: Acute (6) History of hepatitis C Status: Chronic (7) Opiate abuse, episodic Status: Chronic (8) Sedative, hypnotic or anxiolytic abuse Status: Chronic Plan: Plan Medications x-rays and labs all be reviewed. Additional recommendations suggestions are forthcoming. The patient is behaving like somebody with sepsis or systemic inflammatory response syndrome. We'll make sure he is cultures. We 'll check his medications. Additional recommendations suggestions are forthcoming. Apparently amylase and lipase levels are coming down. GI plans to do nothing at this point other than just observe. Time with Patient: Greater than 30
[2016-07-03] MEDS: OLANZapine 5 MG TAB PO SCH (09:38)
[2016-07-03] MEDS ORDERED: hydrALAZINE HCL 20 MG/ML 1 ML VIAL IVP PRN (10:14)
[2016-07-03] MEDS: ENOXAPARIN 40 MG/0.4 ML SYRINGE SQ SCH (11:03)
--- NOTE | 2016-07-03 12:07 | P.PN ---
Subjective Principal diagnosis: Acute pancreatitis Patient is a 41-year-old white male admitted with acute pancreatitis, cholelithiasis, and sepsis. Patient is evaluated in the intensive care unit where he was transferred last night for acute metabolic encephalopathy and respiratory distress after consuming an uncertain amount of Xanax that a friend had brought in for him. When asked why patient consumed Xanax he states "I just wanted to sleep." Patient did receive Romazicon prior to being transferred to the intensive care unit. Upon examination, patient is lying in bed currently agitated, states " I want to go home." Patient appears to be in respiratory distress and desaturates easily. Patient is currently on a 50% Ventimask. Patient reports improvement in abdominal pain currently rating the pain 4 out of 10. Patient denies nausea or vomiting. T-max 100.5 at 8 PM last night. WBC decreased to 24.5. Bandemia of 9. Bilirubin, and transaminases improved. Amylase and lipase improved. Urine output adequate. Gastrointestinal service has no plans for ERCP at this time. Objective - Vital Signs Vital signs: Vital Signs Temp 98.8 F 07/03/16 08:00 Pulse 134 H 07/03/16 11:00 Resp 42 H 07/03/16 11:00 BP 154/98 07/03/16 11:00 Pulse Ox 95 07/03/16 11:00 Intake & Output 07/02/16 07/03/16 07/03/16 18:59 06:59 18:59 Intake Total 2435.0 1175.0 Output Total 400 580 280 Balance -400 1855.0 895.0 Weight 129 kg Intake: IV 2375.0 1175.0 Magnesium Sulfate-D5w Pmx 300 1 gm In Dextrose/Water 1 100ml.bag @ 100 mls/hr IVPB Q1H [facility] Rx#: [id number] Piperacillin-Tazobactam 3 50.0 50.0 .375 gm In Dextrose/Water 1 50ml.bag @ 12.5 mls/hr IVPB Q8HR [facility]AYAK Rx#: [id number] Sodium Chloride 0.9% 1, 1900 750 000 ml @ 150 mls/hr IV . Q6H40M VINAYAK Rx#:[id number] Sodium Phosphate 10 mmol 125 375 In Sodium Chloride 0.9% 250 ml @ 125 mls/hr IVPB Q2H VINAYAK Rx#:[id number] Oral 60 Output: Urine 400 580 280 Other: Voiding Method Urinal Indwelling Catheter Indwelling Catheter # Voids 1 - Exam GENERAL: Pt awake and alert, lying in bed, appears in mild respiratory distress.. Cardiac: Heart sounds S1 and S2. Regular rate and rhythm. Tachycardia. Lungs: Lung sounds were coarse rhonchi and expiratory wheezing. Tachypnic. ABDOMEN: Soft, mild epigastric and right upper quadrant tenderness, mildly distended, normoactive bowel sounds. No guarding, no rebound. EXTREMITIES: Palpable peripheral pulses. NEUROLOGICAL: Pt oriented x 3. - Labs CBC & Chem 7: 07/03/16 04:24 07/03/16 04:24 Labs: Abnormal Lab Results - Last 24 Hours (Table) 07/02/16 07/02/16 07/02/16 Range/Units 19:54 20:25 20:25 WBC (3.8-10.6) k/uL Hgb (13.0-17.5) gm/dL Neutrophils # (1.3-7.7) k/uL Neutrophils # (Manual) (1.3-7.7) k/uL Lymphocytes # (Manual) (1.0-4.8) k/uL Monocytes # (0-1.0) k/uL Monocytes # (Manual) (0-1.0) k/uL ABG pH (7.35-7.45) ABG pCO2 (35-45) mmHg ABG pO2 (83-108) mmHg Sodium 131 L (137-145) mmol/L Potassium 5.3 H (3.5-5.1) mmol/L Carbon Dioxide 19 L (22-30) mmol/L Glucose 172 H (74-99) mg/dL POC Glucose (mg/dL) 180 H (75-99) mg/dL Plasma Lactic Acid Mynor 2.5 H* (0.7-2.0) mmol/L Calcium 7.7 L (8.4-10.2) mg/dL Phosphorus (2.5-4.5) mg/dL Magnesium 1.3 L (1.6-2.3) mg/dL Total Bilirubin 2.7 H (0.2-1.3) mg/dL AST 77 H (17-59) U/L ALT 96 H (21-72) U/L Total Protein 6.1 L (6.3-8.2) g/dL Albumin 3.3 L (3.5-5.0) g/dL Amylase (30-110) U/L Lipase (23-300) U/L Urine Protein (Negative) Urine Ketones (Negative) Urine Blood (Negative) Amorphous Sediment (None) /hpf Urine Opiates Screen (NotDetected) U Benzodiazepines Scrn (NotDetected) 07/02/16 07/02/16 07/02/16 Range/Units 21:20 21:20 21:23 WBC 27.1 H* (3.8-10.6) k/uL Hgb 12.9 L (13.0-17.5) gm/dL Neutrophils # 23.7 H (1.3-7.7) k/uL Neutrophils # (Manual) 25.7 H (1.3-7.7) k/uL Lymphocytes # (Manual) (1.0-4.8) k/uL Monocytes # 1.2 H (0-1.0) k/uL Monocytes # (Manual) (0-1.0) k/uL ABG pH (7.35-7.45) ABG pCO2 (35-45) mmHg ABG pO2 (83-108) mmHg Sodium (137-145) mmol/L Potassium (3.5-5.1) mmol/L Carbon Dioxide (22-30) mmol/L Glucose (74-99) mg/dL POC Glucose (mg/dL) (75-99) mg/dL Plasma Lactic Acid Mynor (0.7-2.0) mmol/L Calcium (8.4-10.2) mg/dL Phosphorus (2.5-4.5) mg/dL Magnesium (1.6-2.3) mg/dL Total Bilirubin (0.2-1.3) mg/dL AST (17-59) U/L ALT (21-72) U/L Total Protein (6.3-8.2) g/dL Albumin (3.5-5.0) g/dL Amylase (30-110) U/L Lipase (23-300) U/L Urine Protein 2+ H (Negative) Urine Ketones Trace H (Negative) Urine Blood Moderate H (Negative) Amorphous Sediment Rare H (None) /hpf Urine Opiates Screen Detected H (NotDetected) U Benzodiazepines Scrn Detected H (NotDetected) 07/03/16 07/03/16 07/03/16 Range/Units 00:24 04:24 04:24 WBC 24.5 H (3.8-10.6) k/uL Hgb (13.0-17.5) gm/dL Neutrophils # (1.3-7.7) k/uL Neutrophils # (Manual) 22.1 H (1.3-7.7) k/uL Lymphocytes # (Manual) 0.5 L (1.0-4.8) k/uL Monocytes # (0-1.0) k/uL Monocytes # (Manual) 2.0 H (0-1.0) k/uL ABG pH 7.49 H (7.35-7.45) ABG pCO2 28 L (35-45) mmHg ABG pO2 67 L (83-108) mmHg Sodium 133 L (137-145) mmol/L Potassium (3.5-5.1) mmol/L Carbon Dioxide 21 L (22-30) mmol/L Glucose 134 H (74-99) mg/dL POC Glucose (mg/dL) (75-99) mg/dL Plasma Lactic Acid Mynor (0.7-2.0) mmol/L Calcium 7.6 L (8.4-10.2) mg/dL Phosphorus 1.9 L (2.5-4.5) mg/dL Magnesium (1.6-2.3) mg/dL Total Bilirubin 2.2 H (0.2-1.3) mg/dL AST (17-59) U/L ALT 91 H (21-72) U/L Total Protein 5.3 L (6.3-8.2) g/dL Albumin 2.7 L (3.5-5.0) g/dL Amylase 624 H* (30-110) U/L Lipase 1202 H (23-300) U/L Urine Protein (Negative) Urine Ketones (Negative) Urine Blood (Negative) Amorphous Sediment (None) /hpf Urine Opiates Screen (NotDetected) U Benzodiazepines Scrn (NotDetected) 07/03/16 Range/Units 07:45 WBC (3.8-10.6) k/uL Hgb (13.0-17.5) gm/dL Neutrophils # (1.3-7.7) k/uL Neutrophils # (Manual) (1.3-7.7) k/uL Lymphocytes # (Manual) (1.0-4.8) k/uL Monocytes # (0-1.0) k/uL Monocytes # (Manual) (0-1.0) k/uL ABG pH (7.35-7.45) ABG pCO2 30 L (35-45) mmHg ABG pO2 66 L (83-108) mmHg Sodium (137-145) mmol/L Potassium (3.5-5.1) mmol/L Carbon Dioxide (22-30) mmol/L Glucose (74-99) mg/dL POC Glucose (mg/dL) (75-99) mg/dL Plasma Lactic Acid Mynor (0.7-2.0) mmol/L Calcium (8.4-10.2) mg/dL Phosphorus (2.5-4.5) mg/dL Magnesium (1.6-2.3) mg/dL Total Bilirubin (0.2-1.3) mg/dL AST (17-59) U/L ALT (21-72) U/L Total Protein (6.3-8.2) g/dL Albumin (3.5-5.0) g/dL Amylase (30-110) U/L Lipase (23-300) U/L Urine Protein (Negative) Urine Ketones (Negative) Urine Blood (Negative) Amorphous Sediment (None) /hpf Urine Opiates Screen (NotDetected) U Benzodiazepines Scrn (NotDetected) Microbiology - Last 24 Hours (Table) 07/02/16 21:20 Urine Culture - Preliminary Urine,Catheterized Assessment and Plan Plan: Impression: 1. Sepsis suspect secondary to acute pancreatitis with cholelithiasis; possible choledocholithiasis with possible ascending cholangitis. 2. Acute hypoxic respiratory failure. 3. Plan: Continue to monitor patient. Continue IV antibiotics per infectious disease recommendations. Continue ICU management by supervisor green end department. Diet per gastrointestinal service. Continue supportive treatment and pain management. Patient will need laparoscopic cholecystectomy when medically stable. The above impression and plan have been discussed and directed by Dr. Hicks. Chris MOLINA acting as scribe for Dr. Hicks.
--- NOTE | 2016-07-03 13:18 | PN ---
CHIEF COMPLAINT: Pancreatitis and respiratory failure. HISTORY OF PRESENT ILLNESS: This gentleman had a friend visitor yesterday and shortly thereafter became fairly lethargic, minimally responsive and hypoxic. He was moved to the ICU. He is now starting to wake up a little bit more. PHYSICAL EXAM: Chest is clear. Cardiac exam demonstrates tachycardia. ABDOMEN: Soft. IMPRESSION: 1. Mental status changes. 2. Probable drug ingestion. 3. Pancreatitis. PLAN: Continue to monitor him until he is stable ( ) unit.
[2016-07-03] MEDS ORDERED: LORazepam 2 MG/ML SYRINGE IV PRN (14:16)
[2016-07-03] MEDS ORDERED: CALCIUM CARBONATE 500 MG CHEWABLE PO PRN (15:27)
[2016-07-03] MEDS ORDERED: POTASSIUM CHLORIDE ER 20 MEQ TAB.ER PO STA (15:59)
[2016-07-03] MEDS: MEROPENEM 1 GM in SODIUM CHLORIDE 0.9% 100 ML IVPB SCH (16:06)
--- NOTE | 2016-07-03 17:11 | CONS ---
DATE OF CONSULTATION: 07/03/2016 REASON FOR CONSULTATION: Patient has history of mental illness. As the patient was confused, most of the history is from medical record and from his mother who was sitting at his bedside. Patient is a 41 white, male with extensive history of substance abuse and mental illness. Patient has been seen at [facility] by Dr. Escamilla and he did receive Vivitrol injection on June 23 for his addiction to opium. Patient was able to wake up and open his eyes, but he was talking about having a monster in front of him expressing visual hallucination, paranoia. He wants to leave AGAINST MEDICAL ADVICE; however, petition was filed by social media developer to guarantee that the patient will be on the ICU until he will be medically stable. Mother stated that the patient has 3 or 4 previous suicidal attempts and most of the attempt was for dropped either heroine, methadone or Fentanyl patch. 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 Patient presented to the emergency room on July 01. At that time he was complaining of abdominal pain and he was admitted for pancreatitis; however, on July 02 patient was visited by an outside visitor who brought with him some Xanax and according to the patient's mother she stated that patient told her this morning, that he took at least 5 Xanax each one, 2 mg dose. He told his mother that he was not sleeping for 2 days since his admission to the hospital and he was trying to relax, but according to her, he did not have any intention to kill himself. His psychotropic medication includin. Zyprexa 5 mg in the morning. 2. Remeron or mirtazapine 45 mg at bedtime. PAST PSYCHIATRIC HISTORY: Patient had at least between 5 to 6 previous inpatient psychiatric hospitalizations, most of admission for depression or suicide attempt. In 2007, patient overdosed on oxycodone and he was intubated due to his overdose. It was June 12, 2007. According to the patient's mother, his current outpatient treatment is very effective especially when he stayed clean from opium and sedative hypnotic. His last psychiatric admission was in our unit. He was admitted on May 02, [address] Bandar Paniagua and discharged May 04. Discharge diagnoses during his last visitation, it was sedative hypnotic abuse. At that time he was complaining of feeling depressed and lonely around the holidays and he was discharged on Remeron and Effexor. However, Dr. Escamilla discontinued the Effexor and start him on Zyprexa as augmentation with the Remeron. In the past, patient tried Abilify augmentation and it seems that they did address his sedative hypnotic use disorder during this last hospitalization in April 2016. Brief social history: Patient is currently . This is his third . His previous marriage ended by divorce and he has two children from the previous marriage, but he is not allowed to see them. They are age 18 and 15. He has 2 brothers. Currently he denied any legal program; however, he was incarcerated for drug related program. Family history of psychiatric illness: Father had schizophrenia. Brother is alcoholic and schizophrenic. Currently patient is living on his own and he is on Social Security disability. Regarding substance abuse history: Extensive history of opium use, methamphetamine, sedative, hypnotic. There is history of [facility] substance abuse treatment program in 2006 PAST MEDICAL HISTORY: There is history of COPD, history of seizure described by the patient's last seizure 2011, hepatitis C and degenerative disease, degenerative disc disease in his back, arthritis. Currently he has pancreatitis. His home medication: 1. Lipitor 20 mg at bedtime. 2. Prilosec 40 mg. 3. Motrin 800 every 4 hours p.r.n. 4. Restoril 5 mg at bedtime. 5. Remeron or Mirtazapine 45 mg at bedtime. 6. Zyprexa 5 mg daily in the morning. ALLERGIES: HALDOL, LASIX, CODEINE AND COMPAZINE, MILK. Mental status examination as the patient was confused and able to wake up when I called his name but not able to participate in complete mental status examination. Patient seems currently having visual hallucinations, but he was not agitated or combative when I saw him. IMPRESSION: 1. Accurate delirious reaction, multifactorial and metabolic, medication. 2. 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 3. Sedative hypnotic use disorder. 4. Opium use disorder. PLAN: I would hold on his psychotropic medication Zyprexa and Remeron until he will be able to be less confused, and more alert. Currently patient does not need any inpatient psychiatric hospitalization so if he is medically cleared, he can be referred back to [facility]. In the meantime, I will cover the patient for any withdrawal symptoms from Xanax and I will put him on low dose of Ativan IV for 1 or 2 days, then I do recommend to wean him off Ativan in 2 days and check his vital signs each shift. When he is medically cleared, you can restart him back on Remeron and Zyprexa. Thank you for this consult.
[2016-07-03] MEDS ORDERED: POTASSIUM CHLORIDE ORAL LIQUID 40 MEQ/30 ML CUP PO ONE (19:10)
--- NOTE | 2016-07-03 19:58 | PN ---
DATE OF SERVICE: 07/03/2016 Reason for follow-up: Acute pancreatitis with a question of possible cholangitis. INTERVAL HISTORY: The patient apparently took some drugs provided to him by his friend last night as the patient said he wanted to calm down. He did have a low fever of 100.5. The patient was tachypneic and tachycardic, hence the patient was transferred to the ICU where the patient is currently hemodynamically stable, not on any pressor support. Patient though denies having any chest pain. He has some shortness of breath though. His abdominal pain has improved. No nausea, no vomiting and no diarrhea. On examination, blood pressure 146/89 with a pulse of 134, temperature of 99, T-max of 100.5. He is 97% on Venti mask. General description is a middle-age male lying in the bed in no distress. RESPIRATORY SYSTEM: Unlabored breathing with decreased breath sounds at the base. No wheeze. HEART: S1, S2, tachycardic. ABDOMEN: Soft slightly distended. No guarding or rigidity. LABS: Hemoglobin is 13, His liver enzymes have improved as well with a BUN of 11, creatinine 0.80. Blood culture obtained yesterday has been negative so far. DIAGNOSTIC IMPRESSION AND PLAN: Patient with sepsis in a patient who did have component of low grade fever of 100.5. Did have an elevated white count, tachypnea and tachycardia meeting criteria for systemic inflammatory response syndrome, source is likely acute pancreatitis with a question of possible cholangitis. At this time antibiotics will be broadened up to Meropenem. The patient's respiratory status needs to be watched closely as the patient may be doing into acute respiratory distress syndrome. Cultures will be monitored closely. Continue supportive care. Overall prognosis remains to be guarded. MTDD
[2016-07-04] MEDS: MEROPENEM 1 GM in SODIUM CHLORIDE 0.9% 100 ML IVPB SCH ×3 (00:11→15:53)
[2016-07-04] MEDS: SODIUM CHLORIDE 0.9% 1,000 ML IV SCH ×4 (00:11→17:19)
[2016-07-04 07:05] LABS: Anion Gap 9 mmol/L; Blood Urea Nitrogen 13 mg/dL (9-20); CH 29.6; CHCM 31.9; Calcium 7.5 mg/dL (8.4-10.2); Carbon Dioxide 23 mmol/L (22-30); Chloride 105 mmol/L (98-107); Glucose 134 mg/dL (74-99); HCT 34.2 % (39.0-53.0); HDW 2.33; HGB 11.2 gm/dL (13.0-17.5); MCH 30.5 pg (25.0-35.0); MCHC 32.7 g/dL (31.0-37.0); MCV 93.3 fL (80.0-100.0); Magnesium 2.3 mg/dL (1.6-2.3); Mean Platelet Volume 10.3; Non-African American GFR(MDRD) >60 (>60 ml/min/1.73 sqM); Potassium 3.9 mmol/L (3.5-5.1); RBC 3.66 m/uL (4.30-5.90); RDW 14.2 % (11.5-15.5); Sodium 137 mmol/L (137-145)
[2016-07-04] MEDS ORDERED: Phosphorus Replacement Protoco 1 EACH MISC MISCELLANE PRN (08:49)
[2016-07-04] MEDS: ENOXAPARIN 40 MG/0.4 ML SYRINGE SQ SCH (08:50)
[2016-07-04] MEDS: PANTOPRAZOLE 40 MG/10 ML VIAL IV SCH (08:50)
[2016-07-04] MEDS: POTASSIUM CHLORIDE ORAL LIQUID 40 MEQ/30 ML CUP PO SCH ×2 (08:52→09:18)
[2016-07-04] MEDS ORDERED: POTASSIUM PHOSPHATE 10 MMOL in SODIUM CHLORIDE 0.9% 250 ML IV SCH (09:00)
[2016-07-04] MEDS: ACETAMINOPHEN TAB 325 MG TAB PO PRN ×2 (09:23→18:16)
[2016-07-04] MEDS: POTASSIUM PHOSPHATE 10 MMOL in SODIUM CHLORIDE 0.9% 250 ML IV SCH ×2 (09:52→11:54)
--- NOTE | 2016-07-04 11:30 | P.PN ---
Subjective Principal diagnosis: Gallstone pancreatitis Patient remains in the ICU. Per the nursing staff and also the inclinometer tester patient is doing better today. Patient himself states that he is having less pain. He is tachycardic and tachypneic however. He is still having fevers this morning of 11.7. Urine in the Walker catheter appears dark in color. White blood cell count is improved to 17. Morning liver enzymes are pending. Objective - Vital Signs Vital signs: Vital Signs Temp 101.7 F H 07/04/16 09:00 Pulse 128 H 07/04/16 11:00 Resp 41 H 07/04/16 11:00 BP 119/80 07/04/16 11:00 Pulse Ox 95 07/04/16 11:00 Intake & Output 07/03/16 07/04/16 07/04/16 18:59 06:59 18:59 Intake Total 2325.0 2050 650 Output Total 785 1012 525 Balance 1540.0 1038 125 Weight 131 kg Intake: IV 2325.0 2050 400 Meropenem 1 gm In Sodium 100 100 100 Chloride 0.9% 100 ml @ 200 mls/hr IVPB Q8HR [facility] Rx#:[id number] Piperacillin-Tazobactam 3 50.0 .375 gm In Dextrose/Water 1 50ml.bag @ 12.5 mls/hr IVPB Q8HR [facility]AK Rx#: [id number] Sodium Chloride 0.9% 1, 1800 1950 300 000 ml @ 150 mls/hr IV . Q6H40M [facility]AK Rx#:[id number] Sodium Phosphate 10 mmol 375 In Sodium Chloride 0.9% 250 ml @ 125 mls/hr IVPB Q2H [facility]AK Rx#:[id number] Intake, IV Titration 250 Amount Potassium Phosphate 10 250 mmol In Sodium Chloride 0 .9% 250 ml @ 125 mls/hr IV Q2H [facility]INAYAK Rx#:[id number] Output: Urine 785 1012 525 Other: Voiding Method Indwelling Catheter Indwelling Catheter Indwelling Catheter # Bowel Movements 1 - Exam Abdomen: Soft, distended, mild epigastric tenderness - Labs CBC & Chem 7: 07/04/16 05:33 07/04/16 05:33 Labs: Abnormal Lab Results - Last 24 Hours (Table) 07/04/16 07/04/16 07/04/16 Range/Units 05:33 05:33 05:33 WBC 17.0 H (3.8-10.6) k/uL RBC 3.66 L (4.30-5.90) m/uL Hgb 11.2 L (13.0-17.5) gm/dL Hct 34.2 L (39.0-53.0) % Glucose 134 H (74-99) mg/dL Calcium 7.5 L (8.4-10.2) mg/dL Phosphorus 1.3 L (2.5-4.5) mg/dL Microbiology - Last 24 Hours (Table) 07/02/16 21:20 Urine Culture - Final Urine,Catheterized 07/02/16 15:35 Blood Culture - Preliminary Blood No Growth after 24 hours 07/02/16 12:41 Blood Culture - Preliminary Blood No Growth after 24 hours Assessment and Plan Plan: Continue nothing by mouth. Continue supportive care. Follow liver enzymes. If fevers continue would need to reconsider ERCP and also possible repeat CAT scan of the abdomen.
--- NOTE | 2016-07-04 11:30 | P.PN ---
Subjective Principal diagnosis: Pancreatitis This is a 41-year-old male who presented for abdominal pain. He presented to the emergency department. This was on July 01. He described as severe cramping or aching pain. Anyway the patient was admitted to the hospital with a diagnosis of pancreatitis. He was initially on the regular medical floor. Apparently while there he took some Xanax that he had from home and became very lethargic. An A team was called and he was subsequently given Romazicon and transferred to the intensive care unit. His urine drug screen was positive for opiates and benzodiazepines. Arterial blood gases revealed a pO2 of 66, pCO2 30 pH 7.45 on room air. He is seen again today 07/04/2016 in follow-up. He is more awake and alert. He is in no acute distress. His abdominal discomfort has improved. His amylase and lipase are trending down. The patient does have a fever of 101.7. His white count has come down to 17.0 from 24.5 yesterday. He's been hemodynamically stable. He is tolerating a clear liquid diet. Objective - Vital Signs Vital signs: Vital Signs Temp 101.7 F H 07/04/16 09:00 Pulse 128 H 07/04/16 11:00 Resp 41 H 07/04/16 11:00 BP 119/80 07/04/16 11:00 Pulse Ox 95 07/04/16 11:00 Intake & Output 07/03/16 07/04/16 07/04/16 18:59 06:59 18:59 Intake Total 2325.0 2050 650 Output Total 785 1012 525 Balance 1540.0 1038 125 Weight 131 kg Intake: IV 2325.0 2050 400 Meropenem 1 gm In Sodium 100 100 100 Chloride 0.9% 100 ml @ 200 mls/hr IVPB Q8HR [facility] Rx#:[id number] Piperacillin-Tazobactam 3 50.0 .375 gm In Dextrose/Water 1 50ml.bag @ 12.5 mls/hr IVPB Q8HR [facility]AK Rx#: [id number] Sodium Chloride 0.9% 1, 1800 1950 300 000 ml @ 150 mls/hr IV . Q6H40M [facility]AK Rx#:[id number] Sodium Phosphate 10 mmol 375 In Sodium Chloride 0.9% 250 ml @ 125 mls/hr IVPB Q2H [facility] Rx#:[id number] Intake, IV Titration 250 Amount Potassium Phosphate 10 250 mmol In Sodium Chloride 0 .9% 250 ml @ 125 mls/hr IV Q2H [facility]AK Rx#:[id number] Output: Urine 785 1012 525 Other: Voiding Method Indwelling Catheter Indwelling Catheter Indwelling Catheter # Bowel Movements 1 - Exam GENERAL EXAM: Alert, fairly comfortable in no apparent distress. HEAD: Normocephalic. EYES: Normal reaction of pupils, equal size. NOSE: Clear with pink turbinates. THROAT: No erythema or exudates. NECK: No masses, no JVD. CHEST: No chest wall deformity. LUNGS: Equal air entry with no crackles, wheeze, rhonchi or dullness. CVS: S1 and S2 normal with no audible murmurs, regular rhythm. ABDOMEN: Slightly distended and tender, normal bowel sounds, no guarding or rigidity. SPINE: No scoliosis or deformity SKIN: No rashes CENTRAL NERVOUS SYSTEM: No focal deficits, tone is normal in all 4 extremities. Extremities: There is no significant peripheral edema. No clubbing, no cyanosis. Peripheral pulses are intact. - Labs CBC & Chem 7: 07/04/16 05:33 07/04/16 05:33 Labs: Abnormal Lab Results - Last 24 Hours (Table) 07/04/16 07/04/16 07/04/16 Range/Units 05:33 05:33 05:33 WBC 17.0 H (3.8-10.6) k/uL RBC 3.66 L (4.30-5.90) m/uL Hgb 11.2 L (13.0-17.5) gm/dL Hct 34.2 L (39.0-53.0) % Glucose 134 H (74-99) mg/dL Calcium 7.5 L (8.4-10.2) mg/dL Phosphorus 1.3 L (2.5-4.5) mg/dL Microbiology - Last 24 Hours (Table) 07/02/16 21:20 Urine Culture - Final Urine,Catheterized 07/02/16 15:35 Blood Culture - Preliminary Blood No Growth after 24 hours 07/02/16 12:41 Blood Culture - Preliminary Blood No Growth after 24 hours Assessment and Plan Plan: Impression: #1 Acute abdominal pain secondary to acute pancreatitis. #2 Acute hypoxic respiratory failure secondary to benzodiazepine overdose. #3 History of opiate and benzodiazepine abuse. #4 History of hepatitis C. #5 History of schizoaffective disorder versus major depression, recurrent and severe. #6 Chronic and ongoing tobacco dependence. Plan: The patient was seen and evaluated by Dr. Guillermo. He is much more awake and alert today. He is actually asking to go home. He denies any worsening abdominal discomfort. We will advance his diet. Surgical and GI services are following as well. He is cleared for transfer to the regular medical floor today. We'll continue to follow and make further recommendations based on his clinical status.
[2016-07-04 12:15] LABS: ALT 66 U/L (21-72); AST 40 U/L (17-59); Alkaline Phosphatase 112 U/L (38-126); Total Bilirubin 1.6 mg/dL (0.2-1.3); Total Protein 5.1 g/dL (6.3-8.2)
[2016-07-04] MEDS ORDERED: IPRATROPIUM-ALBUTEROL 3 ML NEB INHALATION PRN (12:47)
[2016-07-04] MEDS ORDERED: SODIUM PHOSPHATE 10 MMOL in SODIUM CHLORIDE 0.9% 250 ML IVPB ONE (15:48)
[2016-07-04] MEDS ORDERED: POTASSIUM PHOSPHATE 10 MMOL in SODIUM CHLORIDE 0.9% 250 ML IV ONE (15:48)
[2016-07-04] MEDS: IPRATROPIUM-ALBUTEROL 3 ML NEB INHALATION SCH ×2 (16:08→21:42)
--- NOTE | 2016-07-04 17:38 | PN ---
DATE OF SERVICE: 07/04/2016 CHIEF COMPLAINT: Pancreatitis and drug overdose. HISTORY OF PRESENT ILLNESS: This gentleman continues to be tachycardic, but alert. He has been seen by psych, apparently, is to be committed once he is stable. REVIEW OF SYSTEMS: He is awake and alert, but agitated. PHYSICAL EXAMINATION: Vital signs normal except for his tachycardia which were around one hundred to 120 beats a minute. Chest is clear and cardiac exam is otherwise normal. Abdomen soft. IMPRESSION: 1. Pancreatitis. 2. History of drug abuse. 3. Psychosis. PLAN: Continue to monitor in Intensive Care Unit until he is stable and can be moved out to a regular floor bed and then to the psych unit.
[2016-07-05] MEDS: MEROPENEM 1 GM in SODIUM CHLORIDE 0.9% 100 ML IVPB SCH ×4 (00:24→23:23)
[2016-07-05] MEDS: SODIUM CHLORIDE 0.9% 1,000 ML IV SCH ×4 (01:22→23:24)
[2016-07-05 07:45] LABS: ALT 64 U/L (21-72); AST 62 U/L (17-59); Alkaline Phosphatase 117 U/L (38-126); Anion Gap 10 mmol/L; Blood Urea Nitrogen 7 mg/dL (9-20); Calcium 7.5 mg/dL (8.4-10.2); Carbon Dioxide 22 mmol/L (22-30); Chloride 102 mmol/L (98-107); Glucose 118 mg/dL (74-99); Magnesium 2.1 mg/dL (1.6-2.3); Non-African American GFR(MDRD) >60 (>60 ml/min/1.73 sqM); Phosphorous 1.4 mg/dL (2.5-4.5); Potassium 3.6 mmol/L (3.5-5.1); Sodium 134 mmol/L (137-145); Total Bilirubin 1.2 mg/dL (0.2-1.3); Total Protein 5.1 g/dL (6.3-8.2)
[2016-07-05 07:56] LABS: Basophils # (A) 0.1 k/uL (0-0.2); Basophils % (A) 1 %; CH 29.5; CHCM 31.6; Eosinophils # (A) 0.1 k/uL (0-0.7); Eosinophils % (A) 1 %; HCT 34.5 % (39.0-53.0); HDW 2.34; HGB 10.8 gm/dL (13.0-17.5); Luc # (Auto) 0.44; Luc % (Auto) 2; Lymphocytes # (A) 1.3 k/uL (1.0-4.8); Lymphocytes % (A) 7 %; MCH 29.5 pg (25.0-35.0); MCHC 31.4 g/dL (31.0-37.0); MCV 93.8 fL (80.0-100.0); Mean Platelet Volume 9.1; Monocytes # (A) 1.2 k/uL (0-1.0); Monocytes % (A) 6 %; Neutrophils # (A) 16.9 k/uL (1.3-7.7); Neutrophils % (A) 84 %; RBC 3.68 m/uL (4.30-5.90); RDW 14.2 % (11.5-15.5); WBC 20.1 k/uL (3.8-10.6); WBC (Perox) 20.46
[2016-07-05] MEDS: ACETAMINOPHEN TAB 325 MG TAB PO PRN ×2 (07:56→20:33)
[2016-07-05] MEDS: ENOXAPARIN 40 MG/0.4 ML SYRINGE SQ SCH (07:57)
[2016-07-05] MEDS: PANTOPRAZOLE 40 MG/10 ML VIAL IV SCH (07:57)
[2016-07-05] MEDS: IPRATROPIUM-ALBUTEROL 3 ML NEB INHALATION SCH ×4 (08:24→19:36)
[2016-07-05] MEDS ORDERED: RX INFO: IV CONTRAST WAS GIVEN 1 EACH MISC MISCELLANE PRN (10:04)
[2016-07-05] MEDS ORDERED: IOHEXOL 350 MG/ML 25 ML BOTTLE (ORAL USE) PO PRN (10:04)
--- NOTE | 2016-07-05 10:06 | P.PN ---
Subjective Principal diagnosis: Gallstone pancreatitis Patient was transferred out of the ICU. He states he is feeling better. Has less pain. Shortness of breath seems improved. His vital signs are slightly better. White blood cell count up slightly. Liver enzymes are improved. He is hungry for solid food. He is tolerating his full liquid diet. Still having significant fevers however. Objective - Vital Signs Vital signs: Vital Signs Temp 101.8 F H 07/05/16 07:00 Pulse 100 07/05/16 08:35 Resp 32 H 07/05/16 07:00 BP 158/84 07/05/16 07:00 Pulse Ox 97 07/05/16 07:00 Intake & Output 07/04/16 07/05/16 07/05/16 17:59 06:59 18:59 Intake Total Output Total Balance Weight Intake: IV Meropenem 1 gm In Sodium Chloride 0.9% 100 ml @ 200 mls/hr IVPB Q8HR [facility] Rx#:[id number] Sodium Chloride 0.9% 1, 000 ml @ 150 mls/hr IV . Q6H40M [facility] Rx#:[id number] Intake, IV Titration Amount Potassium Phosphate 10 mmol In Sodium Chloride 0 .9% 250 ml @ 125 mls/hr IV Q2H [facility] Rx#:[id number] Potassium Phosphate 10 mmol In Sodium Chloride 0 .9% 250 ml @ 125 mls/hr IV Q2H [facility] Rx#:[id number] Sodium Chloride 0.9% 1, 000 ml @ 150 mls/hr IV . Q6H40M [facility]AK Rx#:[id number] Oral Output: Urine Other: Voiding Method Toilet # Voids # Bowel Movements - Exam Abdomen: Soft, distended, moderate upper abdominal tenderness persists - Labs CBC & Chem 7: 07/05/16 06:53 07/05/16 06:53 Labs: Abnormal Lab Results - Last 24 Hours (Table) 07/04/16 07/05/16 07/05/16 Range/Units 05:33 06:53 06:53 WBC 20.1 H (3.8-10.6) k/uL RBC 3.68 L (4.30-5.90) m/uL Hgb 10.8 L (13.0-17.5) gm/dL Hct 34.5 L (39.0-53.0) % Neutrophils # 16.9 H (1.3-7.7) k/uL Monocytes # 1.2 H (0-1.0) k/uL Sodium 134 L (137-145) mmol/L BUN 7 L (9-20) mg/dL Glucose 134 H 118 H (74-99) mg/dL Calcium 7.5 L 7.5 L (8.4-10.2) mg/dL Phosphorus 1.4 L (2.5-4.5) mg/dL Total Bilirubin 1.6 H (0.2-1.3) mg/dL AST 62 H (17-59) U/L Total Protein 5.1 L 5.1 L (6.3-8.2) g/dL Albumin 2.5 L 2.4 L (3.5-5.0) g/dL Microbiology - Last 24 Hours (Table) 07/02/16 15:35 Blood Culture - Preliminary Blood No Growth after 48 hours 07/02/16 12:41 Blood Culture - Preliminary Blood No Growth after 48 hours Assessment and Plan (1) Acute pancreatitis Narrative/Plan: Continue full liquid diet. Repeat abdominal CAT scan with pancreatic protocol tomorrow. Repeat labs in a.m. Status: Acute
--- NOTE | 2016-07-05 11:34 | P.PN ---
Subjective Progress note dated 07/05/2016 41-year-old with a history of pancreatitis. Doing better. Was transferred out of the ICU. He still is mildly to Tachycardic. Blood pressure stable. Feeling better. Wants to eat. Less abdominal pain. Denies alcohol abuse. Apparently took quite a bit of Xanax here in the hospital. It was apparently in one of this some backs or something like that. He was given Romazicon and seem to improve a bit. Subtotally transferred to the ICU. Transferred out yesterday. Objective - Vital Signs Vital signs: Vital Signs Temp 98.9 F 07/05/16 09:30 Pulse 100 07/05/16 08:35 Resp 32 H 07/05/16 07:00 BP 158/84 07/05/16 07:00 Pulse Ox 97 07/05/16 07:00 Intake & Output 07/04/16 07/05/16 07/05/16 17:59 06:59 18:59 Intake Total Output Total Balance Weight Intake: IV Meropenem 1 gm In Sodium Chloride 0.9% 100 ml @ 200 mls/hr IVPB Q8HR [facility] Rx#:[id number] Sodium Chloride 0.9% 1, 000 ml @ 150 mls/hr IV . Q6H40M [facility] Rx#:[id number] Intake, IV Titration Amount Potassium Phosphate 10 mmol In Sodium Chloride 0 .9% 250 ml @ 125 mls/hr IV Q2H [facility] Rx#:[id number] Potassium Phosphate 10 mmol In Sodium Chloride 0 .9% 250 ml @ 125 mls/hr IV Q2H [facility] Rx#:[id number] Sodium Chloride 0.9% 1, 000 ml @ 150 mls/hr IV . Q6H40M [facility] Rx#:[id number] Oral Output: Urine Other: Voiding Method Toilet # Voids # Bowel Movements - Exam No acute distress, oriented 3. Mildly tachypnea. HEENT examination is unremarkable. Mucous membranes are moist. Neck supple full range of motion. No adenopathy. His cardiovascular examination reveals mild tachycardia. Heart rate about 100 200 of 5 bpm. It Is regular. Lungs clear breath sounds equal. No wheezes rhonchi or crackles. Abdomen soft bowel sounds are heard. Extremities are intact. No cyanosis clubbing or edema. - Labs CBC & Chem 7: 07/05/16 06:53 07/05/16 06:53 Labs: Abnormal Lab Results - Last 24 Hours (Table) 07/04/16 07/05/16 07/05/16 Range/Units 05:33 06:53 06:53 WBC 20.1 H (3.8-10.6) k/uL RBC 3.68 L (4.30-5.90) m/uL Hgb 10.8 L (13.0-17.5) gm/dL Hct 34.5 L (39.0-53.0) % Neutrophils # 16.9 H (1.3-7.7) k/uL Monocytes # 1.2 H (0-1.0) k/uL Sodium 134 L (137-145) mmol/L BUN 7 L (9-20) mg/dL Glucose 134 H 118 H (74-99) mg/dL Calcium 7.5 L 7.5 L (8.4-10.2) mg/dL Phosphorus 1.4 L (2.5-4.5) mg/dL Total Bilirubin 1.6 H (0.2-1.3) mg/dL AST 62 H (17-59) U/L Total Protein 5.1 L 5.1 L (6.3-8.2) g/dL Albumin 2.5 L 2.4 L (3.5-5.0) g/dL Microbiology - Last 24 Hours (Table) 07/02/16 15:35 Blood Culture - Preliminary Blood No Growth after 48 hours 07/02/16 12:41 Blood Culture - Preliminary Blood No Growth after 48 hours Assessment and Plan (1) Abdominal pain Status: Acute (2) Acute pancreatitis Status: Acute (3) Acute respiratory distress Status: Acute (4) Benzodiazepine (tranquilizer) overdose Status: Acute (5) Elevated lactic acid level Status: Acute (6) History of hepatitis C Status: Chronic (7) Opiate abuse, episodic Status: Chronic (8) Sedative, hypnotic or anxiolytic abuse Status: Chronic Plan: Plan Medications x-rays and labs all be reviewed. Additional recommendations suggestions are forthcoming. The patient is behaving like somebody with sepsis or systemic inflammatory response syndrome. We'll make sure he is cultures. We 'll check his medications. Additional recommendations suggestions are forthcoming. Apparently amylase and lipase levels are coming down. GI plans to do nothing at this point other than just observe. Plan dated 07/05/2016 Medications labs x-rays are reviewed. Continue to see as needed. Labs are reviewed. Vital signs are more stable. Seen by surgery. Additional recommendations suggestions are forthcoming Time with Patient: Less than 30
[2016-07-05] MEDS: SODIUM PHOSPHATE 10 MMOL in SODIUM CHLORIDE 0.9% 250 ML IVPB SCH ×3 (11:51→17:03)
[2016-07-05] MEDS ORDERED: POTASSIUM CHLORIDE ER 20 MEQ TAB.ER PO SCH (12:00)
[2016-07-05] MEDS: HYDROmorphone 1 MG/ML 1 ML SYRINGE IV PRN (16:29)
--- NOTE | 2016-07-05 17:06 | P.PN ---
Subjective Principal diagnosis: pancreatitis 41-year-old male with a history of intravenous drug abuse, hepatitis C, prescription drug abuse, seizure disorder, bipolar depression, nicotine cigarette dependency, COPD, and degenerative joint disease. Presents with acute abdominal pain nausea vomiting without fever. Admission white count 32.7 : 9% bandemia. The patient is been evaluated by gastroenterology as well as surgery. The patient is without evidence of extensive pancreatitis. Evaluations reveal evidence of cholelithiasis however without evidence of any obstructive process. He did have evidence of mildly elevated liver enzymes at admission that have now normalized. Bilirubin is normal. Follow-up amylase and lipase were pending. Because of his fever there was concerns antibiotic therapy was initiated with meropenem. Patient did require some time in intensive care unit after a visitor brought him drugs and he became unresponsive. He is now better. He is given a clear picture of pancreatitis, the serious nature of this disorder and what he may expect over the next short period of time. Objective - Vital Signs Vital signs: Vital Signs Temp 99.1 F 07/05/16 15:00 Pulse 102 H 07/05/16 15:39 Resp 45 H 07/05/16 15:00 BP 142/85 07/05/16 15:00 Pulse Ox 94 L 07/05/16 15:00 Intake & Output 07/04/16 07/05/16 07/05/16 17:59 06:59 18:59 Intake Total Output Total 600 Balance -600 Weight Intake: IV Meropenem 1 gm In Sodium Chloride 0.9% 100 ml @ 200 mls/hr IVPB Q8HR [facility] Rx#:[id number] Sodium Chloride 0.9% 1, 000 ml @ 150 mls/hr IV . Q6H40M [facility] Rx#:[id number] Intake, IV Titration Amount Potassium Phosphate 10 mmol In Sodium Chloride 0 .9% 250 ml @ 125 mls/hr IV Q2H [facility] Rx#:[id number] Potassium Phosphate 10 mmol In Sodium Chloride 0 .9% 250 ml @ 125 mls/hr IV Q2H [facility] Rx#:[id number] Sodium Chloride 0.9% 1, 000 ml @ 150 mls/hr IV . Q6H40M [facility] Rx#:[id number] Oral Output: Urine 600 Other: Voiding Method Toilet # Voids # Bowel Movements - Exam 41-year-old male who suffers from obesity seems uncomfortable, has some mild wheezing and is not taking good deep breaths complaining of some ongoing abdominal pain. HEENT: Anicteric conjunctiva are pink and moist nasal mucosa grossly intact without significant lesions, there is no thrush. Neck: The neck is supple without significant lymphadenopathy or thyromegaly. Lungs: There is symmetrical air entry, there is evidence of expiratory wheezes, no bronchial sounds. No dullness or egophony. Heart: Regular rate and rhythm with an audible S1-S2, no S3 no S4. There is no significant murmur click or rub, PMI was nondisplaced. Abdomen: Obese with palpable fluid, it is soft and nonrigid. He has distinct epigastric tenderness. No organomegaly was noted. No flank tenderness. No bruising to the abdominal wall as noted. Extremities: The upper extremities have excellent pulses they are symmetric, no significant petechiae or telangiectasia. No splinter hemorrhages were noted. The lower extremities have only trace edema The peripheral pulses were 2+ and symmetric. Neuro: Awake alert oriented to person place and time. There are no acute new gross focal sensory motor deficits. - Labs CBC & Chem 7: 07/05/16 06:53 07/05/16 06:53 Labs: Abnormal Lab Results - Last 24 Hours (Table) 07/05/16 07/05/16 Range/Units 06:53 06:53 WBC 20.1 H (3.8-10.6) k/uL RBC 3.68 L (4.30-5.90) m/uL Hgb 10.8 L (13.0-17.5) gm/dL Hct 34.5 L (39.0-53.0) % Neutrophils # 16.9 H (1.3-7.7) k/uL Monocytes # 1.2 H (0-1.0) k/uL Sodium 134 L (137-145) mmol/L BUN 7 L (9-20) mg/dL Glucose 118 H (74-99) mg/dL Calcium 7.5 L (8.4-10.2) mg/dL Phosphorus 1.4 L (2.5-4.5) mg/dL AST 62 H (17-59) U/L Total Protein 5.1 L (6.3-8.2) g/dL Albumin 2.4 L (3.5-5.0) g/dL Microbiology - Last 24 Hours (Table) 07/02/16 12:41 Blood Culture - Preliminary Blood No Growth after 72 hours 07/04/16 10:01 Blood Culture - Preliminary Blood No Growth after 24 hours 07/04/16 10:01 Blood Culture - Preliminary Blood No Growth after 24 hours 07/02/16 15:35 Blood Culture - Preliminary Blood No Growth after 48 hours Laboratory Results WBC 20.1 k/uL (3.8-10.6) H 07/05/16 06:53 RBC 3.68 m/uL (4.30-5.90) L 07/05/16 06:53 Hgb 10.8 gm/dL (13.0-17.5) L 07/05/16 06:53 Hct 34.5 % (39.0-53.0) L 07/05/16 06:53 MCV 93.8 fL (80.0-100.0) 07/05/16 06:53 MCH 29.5 pg (25.0-35.0) 07/05/16 06:53 MCHC 31.4 g/dL (31.0-37.0) 07/05/16 06:53 RDW 14.2 % (11.5-15.5) 07/05/16 06:53 Plt Count 243 k/uL (150-450) 07/05/16 06:53 Neutrophils % 84 % 07/05/16 06:53 Neutrophils % (Manual) 81.0 % 07/03/16 04:24 Band Neutrophils % 9.0 % 07/03/16 04:24 Lymphocytes % 7 % 07/05/16 06:53 Lymphocytes % (Manual) 2.0 % 07/03/16 04:24 Monocytes % 6 % 07/05/16 06:53 Monocytes % (Manual) 8.0 % 07/03/16 04:24 Eosinophils % 1 % 07/05/16 06:53 Eosinophils % (Manual) 4.0 % 07/01/16 00:52 Basophils % 1 % 07/05/16 06:53 Neutrophils # 16.9 k/uL (1.3-7.7) H 07/05/16 06:53 Neutrophils # (Manual) 22.1 k/uL (1.3-7.7) H 07/03/16 04:24 Lymphocytes # 1.3 k/uL (1.0-4.8) 07/05/16 06:53 Lymphocytes # (Manual) 0.5 k/uL (1.0-4.8) L 07/03/16 04:24 Monocytes # 1.2 k/uL (0-1.0) H 07/05/16 06:53 Monocytes # (Manual) 2.0 k/uL (0-1.0) H 07/03/16 04:24 Eosinophils # 0.1 k/uL (0-0.7) 07/05/16 06:53 Eosinophils # (Manual) 1.3 k/uL (0-0.7) H 07/01/16 00:52 Basophils # 0.1 k/uL (0-0.2) 07/05/16 06:53 Nucleated RBCs 0 /100 WBC (0-0) 07/03/16 04:24 Manual Slide Review Performed 07/03/16 04:24 Toxic Granulation Present 07/03/16 04:24 Toxic Vacuolation Present 07/03/16 04:24 Large Platelets Present 07/01/16 00:52 Polychromasia Present 07/02/16 07:42 Poikilocytosis (manual Present 07/02/16 07:42 Anisocytosis (manual) Present 07/02/16 07:42 PT 14.8 sec (9.0-12.0) H 07/02/16 07:53 INR 1.5 (<1.1) 07/02/16 07:53 Sample Site LEFT RADIAL 07/03/16 07:45 ABG pH 7.45 (7.35-7.45) 07/03/16 07:45 ABG pCO2 30 mmHg (35-45) L 07/03/16 07:45 ABG pO2 66 mmHg (83-108) L 07/03/16 07:45 ABG HCO3 21 mmol/L (21-25) 07/03/16 07:45 ABG Total CO2 22 mmol/L (19-24) 07/03/16 07:45 ABG O2 Saturation 94.0 % (94-97) 07/03/16 07:45 ABG Base Excess -2.8 mmol/L 07/03/16 07:45 FiO2 21 % 07/03/16 07:45 Sodium 134 mmol/L (137-145) L 07/05/16 06:53 Potassium 3.6 mmol/L (3.5-5.1) 07/05/16 06:53 Chloride 102 mmol/L (98-107) 07/05/16 06:53 Carbon Dioxide 22 mmol/L (22-30) 07/05/16 06:53 Anion Gap 10 mmol/L 07/05/16 06:53 BUN 7 mg/dL (9-20) L 07/05/16 06:53 Creatinine 0.86 mg/dL (0.66-1.25) 07/05/16 06:53 Est GFR (MDRD) Af Amer >60 (>60 ml/min/1.73 sqM) 07/05/16 06:53 Est GFR (MDRD) Non-Af >60 (>60 ml/min/1.73 sqM) 07/05/16 06:53 Glucose 118 mg/dL (74-99) H 07/05/16 06:53 POC Glucose (mg/dL) 180 mg/dL (75-99) H 07/02/16 19:54 POC Glu Holiday Detector Operator СВЕТЛАНА Vaishali Benito 07/02/16 19:54 Plasma Lactic Acid [place] 1.3 mmol/L (0.7-2.0) 07/03/16 04:24 Calcium 7.5 mg/dL (8.4-10.2) L 07/05/16 06:53 Phosphorus 1.4 mg/dL (2.5-4.5) L 07/05/16 06:53 Magnesium 2.1 mg/dL (1.6-2.3) 07/05/16 06:53 Total Bilirubin 1.2 mg/dL (0.2-1.3) 07/05/16 06:53 AST 62 U/L (17-59) H 07/05/16 06:53 ALT 64 U/L (21-72) 07/05/16 06:53 Alkaline Phosphatase 117 U/L (38-126) 07/05/16 06:53 Total Protein 5.1 g/dL (6.3-8.2) L 07/05/16 06:53 Albumin 2.4 g/dL (3.5-5.0) L 07/05/16 06:53 Triglycerides 153 mg/dL (<150) H 07/01/16 08:36 Cholesterol 141 mg/dL (<200) 07/01/16 08:36 LDL Cholesterol, Calc 71 mg/dL (0-99) 07/01/16 08:36 HDL Cholesterol 39 mg/dL (40-60) L 07/01/16 08:36 Amylase 624 U/L (30-110) H* 07/03/16 04:24 Lipase 1202 U/L (23-300) H 07/03/16 04:24 Urine Color Yellow 07/02/16 21:20 Urine Appearance Clear (Clear) 07/02/16 21:20 Urine pH 6.0 (5.0-8.0) 07/02/16 21:20 Ur Specific [place] 1.030 (1.001-1.035) 07/02/16 21:20 Urine Protein 2+ (Negative) H 07/02/16 21:20 Urine Glucose (UA) Negative (Negative) 07/02/16 21:20 Urine Ketones Trace (Negative) H 07/02/16 21:20 Urine Blood Moderate (Negative) H 07/02/16 21:20 Urine Nitrate Negative (Negative) 07/02/16 21:20 Urine Bilirubin Negative (Negative) 07/02/16 21:20 Urine Urobilinogen 4.0 mg/dL (<2.0) 07/02/16 21:20 Ur Leukocyte Esterase Negative (Negative) 07/02/16 21:20 Urine RBC 4 /hpf (0-5) 07/02/16 21:20 Urine WBC 1 /hpf (0-5) 07/02/16 21:20 Ur Squamous Epith Cells 1 /hpf (0-4) 07/02/16 21:20 Amorphous Sediment Rare /hpf (None) H 07/02/16 21:20 Urine Opiates Screen Detected (NotDetected) H 07/02/16 21:20 Ur Oxycodone Screen Not Detected (NotDetected) 07/02/16 21:20 Urine Methadone Screen Not Detected (NotDetected) 07/02/16 21:20 Ur Propoxyphene Screen Not Detected (NotDetected) 07/02/16 21:20 Ur Barbiturates Screen Not Detected (NotDetected) 07/02/16 21:20 U Tricyclic Antidepress Not Detected (NotDetected) 07/02/16 21:20 Ur Phencyclidine Scrn Not Detected (NotDetected) 07/02/16 21:20 Ur Amphetamines Screen Not Detected (NotDetected) 07/02/16 21:20 U Methamphetamines Scrn Not Detected (NotDetected) 07/02/16 21:20 U Benzodiazepines Scrn Detected (NotDetected) H 07/02/16 21:20 Urine Cocaine Screen Not Detected (NotDetected) 07/02/16 21:20 U Marijuana (THC) Screen Not Detected (NotDetected) 07/02/16 21:20 Microbiology 07/02/16 12:41 Blood Blood Culture - Preliminary No Growth after 72 hours 07/04/16 10:01 Blood Blood Culture - Preliminary No Growth after 24 hours 07/04/16 10:01 Blood Blood Culture - Preliminary No Growth after 24 hours 07/02/16 15:35 Blood Blood Culture - Preliminary No Growth after 48 hours 07/02/16 21:20 Urine,Catheterized Urine Culture - Final Assessment and Plan (1) Acute pancreatitis Narrative/Plan: 41-year-old male who has a history of extensive substance abuse presents to Hospital with evidence of acute pancreatitis. It is very severe. This is noted by his fever and leukocytosis at admission. And now has evidence of a low calcium and evidence of some fluid sequestration to the abdominal cavity. Patient is having ongoing symptoms does appear to be slightly improved from what was described from a day ago. He's been evaluated by gastroenterology and it appears the patient has acute severe pancreatitis. Does not appear to have cholangitis. Fortunately the patient's liver enzymes and bilirubin have all improved. CT to admission showed evidence of the significant pancreatitis. However no evidence of necrosis or pseudocyst formation was seen. The patient continues to have difficulties reimaging should be performed to further evaluate any change of the structure of the organ. Meropenem is being utilized this point in time with concerns to infection of the pancreas as well as potential for cholangitis. The patient's biochemistry is improving but still had some fever last night. It is still most likely that his fevers and the basis of his acute severe pancreatitis. Status: Acute (2) Fever Status: Acute
--- NOTE | 2016-07-05 22:26 | PN ---
CHIEF COMPLAINT: Acute pancreatitis and drug abuse. HISTORY OF PRESENT ILLNESS: The gentleman is doing well. He has had no new problems. He is complaining of a lot of pain and we cannot give him narcotic analgesics. He has been seen by psychiatry. PHYSICAL EXAMINATION: Chest is clear. CARDIAC: Exam is normal. The abdomen is soft, nontender. IMPRESSION: 1. Pancreatitis. 2. Substance abuse. 3. Acute psychosis. PLAN: Continue on current program and work on discharge plan. He may be going to psych.
[2016-07-06] MEDS ORDERED: IOHEXOL 350 MG/ML 25 ML BOTTLE (ORAL USE) PO PRN (07:00)
[2016-07-06 07:58] VITALS: BP 168/85; RESP 35; TEMP 100.1
[2016-07-06] MEDS: IPRATROPIUM-ALBUTEROL 3 ML NEB INHALATION SCH ×2 (08:10→11:10)
[2016-07-06 08:11] LABS: CH 29.3; HCT 32.1 % (39.0-53.0); HDW 2.48; Hypochromasia Slight; MCH 29.6 pg (25.0-35.0); MCHC 31.2 g/dL (31.0-37.0); MCV 94.8 fL (80.0-100.0); Mean Platelet Volume 8.3; RBC 3.38 m/uL (4.30-5.90); RDW 14.4 % (11.5-15.5); WBC 23.4 k/uL (3.8-10.6)
[2016-07-06 08:22] LABS: Amylase 99 U/L (30-110); Anion Gap 9 mmol/L; Blood Urea Nitrogen 4 mg/dL (9-20); Calcium 7.4 mg/dL (8.4-10.2); Carbon Dioxide 23 mmol/L (22-30); Chloride 102 mmol/L (98-107); Glucose 114 mg/dL (74-99); Magnesium 1.9 mg/dL (1.6-2.3); Non-African American GFR(MDRD) >60 (>60 ml/min/1.73 sqM); Phosphorous 1.4 mg/dL (2.5-4.5); Potassium 3.3 mmol/L (3.5-5.1); Sodium 134 mmol/L (137-145)
--- NOTE | 2016-07-06 08:22 | CT ---
EXAMINATION TYPE: CT pancreas biphase DATE OF EXAM: 07/06/2016 7:44 AM COMPARISON: NONE HISTORY: fever, pancreatiitis, CT DLP: DLP 2419.6 mGycm CONTRAST: Biphasic contrast enhanced CT of the abdomen with attention to the pancreas was performed following t he injection of 100 cc Omnipaque 300. FINDINGS: LUNG BASES-: Small left greater than right pleural effusions with basilar atelectasis or infiltrates. Right basilar granuloma identified. LIVER/GB: No calcified gallstones. No space occupying hepatic lesion. Biliary tree is of normal ca liber. There is evidence of hepatic steatosis. PANCREAS: The pancreas is edematous primarily at its neck and body. There is nonenhancing low-attenua tion pancreatic tissue again involving the neck and body of the pancreas which could reflect early ne crosis. No evidence for air or abscess collection at this time. Increasing Peripancreatic stranding a nd fluid is again evident. No discrete pseudocyst at this point in time. Fluid is seen within the par acolic gutters. There is no evidence for thrombosis or pseudoaneurysm formation. SPLEEN: No splenic enlargement. No lesion seen. ADRENALS: No nodule. No thickening. KIDNEYS/BLADDER: No hydronephrosis. No nephrolithiasis. No disctinct renal mass. Urinary bladder g rossly unremarkable. BOWEL: Normal appendix. Normal bowel caliber. No inflammation. LYMPH NODES: No greater than 1cm abdominal or pelvic lymph nodes are appreciated. AORTA: No significant abnormality. OSSEOUS STRUCTURES: No significant abnormality is seen. OTHER: No significant additional abnormality is seen. IMPRESSION: 1. Findings compatible with progressive acute pancreatitis. As noted there is nonenhancing pancreatic tissue at its neck and body and early changes of necrosis would be difficult to exclude. No evidence for air or abscess at this time. 2. Increasing basilar effusions and basilar compressive atelectasis and/or infiltrates. 3. Fatty liver.
[2016-07-06] MEDS: MEROPENEM 1 GM in SODIUM CHLORIDE 0.9% 100 ML IVPB SCH (08:24)
[2016-07-06] MEDS: ENOXAPARIN 40 MG/0.4 ML SYRINGE SQ SCH (08:24)
[2016-07-06] MEDS: PANTOPRAZOLE 40 MG/10 ML VIAL IV SCH (08:25)
[2016-07-06] MEDS: ACETAMINOPHEN TAB 325 MG TAB PO PRN (08:41)
[2016-07-06] MEDS: SODIUM CHLORIDE 0.9% 1,000 ML IV SCH (10:10)
[2016-07-06 11:21] VITALS: PULSE 118
--- NOTE | 2016-07-06 12:38 | P.PN ---
Subjective 41-year-old male with a history of intravenous drug abuse, hepatitis C, prescription drug abuse, seizure disorder, bipolar depression, nicotine cigarette dependency, COPD, and degenerative joint disease. Presents with acute abdominal pain nausea vomiting without fever. Admission white count 32.7 : 9% bandemia. The patient is been evaluated by gastroenterology as well as surgery. The patient is without evidence of extensive pancreatitis. Evaluations reveal evidence of cholelithiasis however without evidence of any obstructive process. He did have evidence of mildly elevated liver enzymes at admission that have now normalized. Bilirubin is normal. Follow-up amylase and lipase were pending. Because of his fever there was concerns antibiotic therapy was initiated with meropenem. Patient did require some time in intensive care unit after a visitor brought him drugs and he became unresponsive. He is now better. He is given a clear picture of pancreatitis, the serious nature of this disorder and what he may expect over the next short period of time. The patient was initially on the regular medical floor. Apparently while there he took some Xanax that he had from home and became very lethargic. An A team was called and he was subsequently given Romazicon and transferred to the intensive care unit. His urine drug screen was positive for opiates and benzodiazepines. A patient had change in mental status with a combination of drugs and ultimately got transferred to the intensive care unit where he was monitored and then moved back to the medical floor. Currently is awake and alert and is talking and there is no confusion at all. He is on no oxygen. No shortness of breath. No chest pain. He has mild abdominal pain. No nausea. No vomiting. CAT scan of the abdomen and the pancreas was done and it showed some early pancreatic necrotic changes and general surgeries on the case in view of this nonenhancing pancreatic tissue at the neck and the body that is very much suggestive of necrosis. No evidence of any abscesses at this point. There is some increased bibasilar effusions and compression atelectatic changes in lung bases along with some fatty liver. Objective - Vital Signs Vital signs: Vital Signs Temp 100.1 F H 07/06/16 07:00 Pulse 118 H 07/06/16 11:21 Resp 35 H 07/06/16 07:00 BP 168/85 07/06/16 07:00 Pulse Ox 95 07/06/16 08:10 Intake & Output 07/05/16 07/06/16 07/06/16 18:59 06:59 18:59 Intake Total 1947 Output Total 600 1650 Balance -600 297 Weight 131 kg Intake: IV 1725 Sodium Chloride 0.9% 1, 1725 000 ml @ 150 mls/hr IV . Q6H40M [facility] Rx#:[id number] Oral 222 Output: Urine 600 1650 Other: Voiding Method Toilet Toilet Toilet Urinal Urinal # Voids 1 - Exam GENERAL EXAM: Alert, fairly comfortable in no apparent distress. HEAD: Normocephalic. EYES: Normal reaction of pupils, equal size. NOSE: Clear with pink turbinates. THROAT: No erythema or exudates. NECK: No masses, no JVD. CHEST: No chest wall deformity. LUNGS: Equal air entry with no crackles, wheeze, rhonchi or dullness. CVS: S1 and S2 normal with no audible murmurs, regular rhythm. ABDOMEN: Slightly distended and tender, normal bowel sounds, no guarding or rigidity. SPINE: No scoliosis or deformity SKIN: No rashes CENTRAL NERVOUS SYSTEM: No focal deficits, tone is normal in all 4 extremities. Extremities: There is no significant peripheral edema. No clubbing, no cyanosis. Peripheral pulses are intact. - Labs CBC & Chem 7: 07/06/16 07:42 07/06/16 07:42 Labs: Abnormal Lab Results - Last 24 Hours (Table) 07/06/16 07/06/16 Range/Units 07:42 07:42 WBC 23.4 H (3.8-10.6) k/uL RBC 3.38 L (4.30-5.90) m/uL Hgb 10.0 L (13.0-17.5) gm/dL Hct 32.1 L (39.0-53.0) % Sodium 134 L (137-145) mmol/L Potassium 3.3 L (3.5-5.1) mmol/L BUN 4 L (9-20) mg/dL Glucose 114 H (74-99) mg/dL Calcium 7.4 L (8.4-10.2) mg/dL Phosphorus 1.4 L (2.5-4.5) mg/dL Microbiology - Last 24 Hours (Table) 07/02/16 15:35 Blood Culture - Preliminary Blood No Growth after 72 hours 07/02/16 12:41 Blood Culture - Preliminary Blood No Growth after 72 hours 07/04/16 10:01 Blood Culture - Preliminary Blood No Growth after 24 hours 07/04/16 10:01 Blood Culture - Preliminary Blood No Growth after 24 hours Assessment and Plan Plan: Impression: #1 Acute abdominal pain secondary to acute pancreatitis. The CAT scan from today shows some nonenhancing pancreatic tissue of the neck in the body and this could potentially be early changes of necrosis. Clinically however the patient has mild abdominal pain and he is tolerating clear liquid diet. Gen. surgeries on the case. Lipase is down to 182 #2 Acute hypoxic respiratory failure secondary to benzodiazepine overdose. #3 History of opiate and benzodiazepine abuse. #4 History of hepatitis C. #5 History of schizoaffective disorder versus major depression, recurrent and severe. #6 Chronic and ongoing tobacco dependence. Plan Clinically stable. Advance diet as tolerated as recommended by general surgery. The pulmonary status is stable and there is some minor atelectatic changes in the lung bases bilaterally. Continued IV Merrem. We'll follow up this patient as needed depending on his overall clinical progress.
--- NOTE | 2016-07-06 13:10 | P.DS ---
Providers Date of admission: 07/01/16 03:06 Expected date of discharge: 07/06/16 Attending physician: Hilton Manzanares Consults: 07/02/16 09:28 Consult Physician Urgent Consulting Provider: Rocio Escamilla Consult Reason/Comments: ?abx recs Do you want consulting provider notified?: Yes 07/02/16 21:29 Consult Physician Routine Consulting Provider: Rudy Guillermo Consult Reason/Comments: icu management Do you want consulting provider notified?: Already Contacted 07/03/16 09:25 Consult Physician Routine Consulting Provider: Niurka Rodriguez Consult Reason/Comments: Psych consult-sees [facility] outpatient, OD on xanax, petitioned by mother Do you want consulting provider notified?: Already Contacted Primary care physician: Stated None Hospital Course: 41-year-old male with a history of intravenous drug abuse, hepatitis C, prescription drug abuse, seizure disorder, bipolar depression, nicotine cigarette dependency, COPD, and degenerative joint disease. Presents with acute abdominal pain nausea vomiting without fever. Admission white count 32.7 : 9% bandemia. The patient is been evaluated by gastroenterology as well as surgery. The patient is without evidence of extensive pancreatitis. Evaluations reveal evidence of cholelithiasis however without evidence of any obstructive process. He did have evidence of mildly elevated liver enzymes at admission that have now normalized. Bilirubin is normal. Follow-up amylase and lipase were pending. Because of his fever there was concerns antibiotic therapy was initiated with meropenem. Patient did require some time in intensive care unit after a visitor brought him drugs and he became unresponsive. He is now better. He was given a clear picture of pancreatitis, the serious nature of this disorder and what he may expect over the next short period of time. Patient did have a CAT scan of the pancreas on July 06 there was no discrete pseudocyst noted the findings were compatible with progressive acute pancreatitis. Also nonenhancing pancreatic tissue at the neck and body of the pancreas and early changes of necrosis would be difficult to exclude has been participating in the plan of care and recommended after reviewing the CAT scan of the pancreas that the patient be transferred to a tertiary center for higher level care given the CAT scan not being able to rule out necrosis involving the pancreas. The casey saw operator did set up for transfer to [facility] in [place] Impression discharge diagnosis Acute hypoxic respiratory failure secondary to benzodiazepine unintentional overdose visitor brought in Xanax gait to patient unknown amount necessitating a transfer to the intensive care unit History of opiate and benzodiazepine abuse Schizoaffective disorder Chronic and ongoing tobacco dependency Present on admission diffuse abdominal pain elevated lipase amylase consistent with acute severe pancreatitis Obesity BMI 38 Chronic hepatitis C Major depressive disorder History of opiate abuse prescription drugs episodic last used 2 weeks prior per patient history Current every day smoker 1 pack a day History of alcoholism in remission Present on admission leukocytosis and elevated transaminase Echocardiogram done May 2016 left ventricular systolic function normal EF between 65 and 60% no pulmonary hypertension Present on admission hyperbilirubinemia suspected secondary to edema no evidence of biliary duct dilatation or cholelithiasis History of chronic sedative, hypnotic or anxiolytic abuse History of a prior urine drug screen persistently positive for non-prescribed benzodiazepine last checked 05/02/2016 Mood disorder Essential hypertension Present on admission leukocytosis tachycardic elevated lactic acid suspect sepsis due to severe acute pancreatitis with unclear etiology Episodes of fever unclear etiology likely due to an acute severe pancreatitis CAT scan of the abdomen shows no evidence for pseudocyst formation The above dictated assessment and findings were discussed with dr manzanares . Impression and the plan of care have been dictated as directed. Ana Meredith nurse practitioner acting as a scribe for dr manzanares Patient Condition at Discharge: Fair Plan - Discharge Summary Discharge Medication List Atorvastatin [Lipitor] 20 mg PO HS 05/02/16 [History] Omeprazole 40 mg PO HS 05/02/16 [History] Ibuprofen [Motrin] 800 mg PO Q8HR PRN 07/01/16 [History] Lisinopril [Zestril] 5 mg PO HS 07/01/16 [History] Mirtazapine [Remeron] 45 mg PO HS 07/01/16 [History] OLANZapine [ZyPREXA] 5 mg PO DAILY 07/01/16 [History] Follow up Appointment(s)/Referral(s): None,Stated [Primary Care Provider] - 1-2 days Hilton Manzanares MD [STAFF PHYSICIAN] - 1 Week Patient Instructions/Handouts: Abdominal Pain (ED) Discharge Disposition: DC/[facility] INTERMEDIATE CARE FAC
--- NOTE | 2016-07-06 13:53 | P.PN ---
Subjective Principal diagnosis: Acute pancreatitis Patient is a 41-year-old male admitted with gallstone pancreatitis. Patient is evaluated on the medical floor. Patient complains of right upper and right lower abdominal pain, currently rated 8 out of 10 with activity, 0 out of 10 with rest. Denies nausea or vomiting. Reports improvement in breathing. Tolerated full liquid diet. WBC increased to 23.4. T-max the last 24 hours 100.1. Patient remains tachycardic. Repeat CT of pancreas from this morning with evidence of progressive acute pancreatitis with possible early changes of necrosis to pancreatic neck and body without evidence of free air or abscess. Objective - Vital Signs Vital signs: Vital Signs Temp 100.1 F H 07/06/16 07:00 Pulse 118 H 07/06/16 11:21 Resp 35 H 07/06/16 07:00 BP 168/85 07/06/16 07:00 Pulse Ox 95 07/06/16 08:10 Intake & Output 07/05/16 07/06/16 07/06/16 18:59 06:59 18:59 Intake Total 1947 Output Total 600 1650 Balance -600 297 Weight 131 kg Intake: IV 1725 Sodium Chloride 0.9% 1, 1725 000 ml @ 150 mls/hr IV . Q6H40M [facility] Rx#:[id number] Oral 222 Output: Urine 600 1650 Other: Voiding Method Toilet Toilet Toilet Urinal Urinal # Voids 1 - Exam GENERAL: Pt awake and alert, lying in bed, appears in no acute distress. Cardiac: Heart sounds S1 and S2. Regular rate and rhythm. Tachycardia. Lungs: Lung sounds were coarse rhonchi and expiratory wheezing. ABDOMEN: Soft, mild right upper and right lower quadrant tenderness, mildly distended, normoactive bowel sounds. No guarding, no rebound. EXTREMITIES: Palpable peripheral pulses. NEUROLOGICAL: Pt oriented x 3. - Labs CBC & Chem 7: 07/06/16 07:42 07/06/16 07:42 Labs: Abnormal Lab Results - Last 24 Hours (Table) 07/06/16 07/06/16 Range/Units 07:42 07:42 WBC 23.4 H (3.8-10.6) k/uL RBC 3.38 L (4.30-5.90) m/uL Hgb 10.0 L (13.0-17.5) gm/dL Hct 32.1 L (39.0-53.0) % Sodium 134 L (137-145) mmol/L Potassium 3.3 L (3.5-5.1) mmol/L BUN 4 L (9-20) mg/dL Glucose 114 H (74-99) mg/dL Calcium 7.4 L (8.4-10.2) mg/dL Phosphorus 1.4 L (2.5-4.5) mg/dL Microbiology - Last 24 Hours (Table) 07/04/16 10:01 Blood Culture - Preliminary Blood No Growth after 48 hours 07/04/16 10:01 Blood Culture - Preliminary Blood No Growth after 48 hours 07/02/16 15:35 Blood Culture - Preliminary Blood No Growth after 72 hours 07/02/16 12:41 Blood Culture - Preliminary Blood No Growth after 72 hours Assessment and Plan Plan: Impression: 1. Sepsis suspect secondary to acute pancreatitis with cholelithiasis and possible necrotic pancreatic neck and head. Plan: Recommend transfer to [facility] for tertiary care. Did discuss case with Ana Meredith, nurse practitioner for Dr. Manzanares. Continue IV antibiotics per infectious disease recommendations. Continue supportive treatment and pain management. Patient agreeable to transfer. The above impression and plan have been discussed and directed by Dr. Hicks. Chris MOLINA acting as scribe for Dr. Hicks.
--- NOTE | 2016-07-06 14:40 | PN ---
CHIEF COMPLAINT: 1. Acute pancreatitis. 2. Substance abuse. 3. Status post drug overdose. 4. Acute psychosis? HISTORY OF PRESENT ILLNESS: The gentleman is doing a bit better and pain is improved. He is probably to the point where he can go home, but it was thought that he was going to be committed to the psych unit. We will look into this. REVIEW OF SYSTEMS: He is having less pain. He has no chest pain or shortness of breath. He has had no vomiting. PHYSICAL EXAMINATION: He is a little bit tender over the epigastrium, but it is improving. IMPRESSION: 1. Pancreatitis. 2. Drug abuse. 3. Acute psychosis. PLAN: Either home or to the psych unit today and this will be arranged by the nurse practitioner.
--- NOTE | 2016-07-06 15:20 | P.PN ---
Progress Note - Text Interval history: The patient was seen for psychiatric follow-up ,mother was at his bed side ,talked with his RN ,patient denies any depressive symptoms , denies any psychotic features ,stated that his current psychotropic medications are effective ,he reports that he had been using Xanax"At least once a week , taking between 10 mg to 20 mg at a time",patient did not report his sedative- hypnotic use to his outpatient psychiatrist Mental status exam: The patient is a male,laying in bed calmly eye contact is appropriate speech is fluent. He is cooperative. He reports abdominal pain . He states he has no suicidal ideation intent or plan. No homicidal ideation intent or plan. He is endorsing no symptoms of psychosis hypomania or zoe or depression and there is no evidence of those symptoms. Thought process is linear and goal-directed. He is oriented to person place and date. No psychomotor agitation observed. Plan: The patient will continue on his current medication ,was instructed to seek senior care residential treatment for SA after medical clearance ,otherwise patient can follow-up with [facility]
[2016-07-06 15:52] LABS: Hepatits C Virus RNA, Quant <12 IU/mL (<12); LOG HCV IU/mL <1.08 (<1.08)
--- NOTE | 2016-07-06 16:21 | PN ---
DATE OF SERVICE: 07/06/2016 REASON FOR FOLLOWUP: Acute pancreatitis. INTERVAL HISTORY: The patient did spike a fever of 100.1 this morning. The patient has been afebrile since then. The patient overall is feeling better. His abdominal pain has improved. No nausea. No vomiting. The patient denies having any chest pain or shortness of breath or cough. On examination, blood pressure is 168/85 with a pulse of 129, temperature of 100.1. He is 95% on room air. General description is a middle-aged male lying in bed in no distress. RESPIRATORY SYSTEM: Unlabored breathing. Clear to auscultation anteriorly. HEART: S1, S2. Regular rate and rhythm. ABDOMEN: Soft. No significant tenderness, guarding or rigidity. LABS: Hemoglobin is 10 with a white count of 23.4, BUN of 4, creatinine 0.81. Blood cultures from 07/02 as well as 07/04 remain negative. The patient did have a pancreas CT which did show findings compatible with previous acute pancreatitis with some early changes of necrosis, but no evidence of air or abscess. DIAGNOSTIC IMPRESSION AND PLAN: Patient with acute severe pancreatitis, likely gallstone-related. Patient at this time is to continue on meropenem, as the patient has shown clinical improvement. If the patient spikes any fever or any further jump in the white count ( ) adjust antibiotics further. Continue supportive care.
[2016-07-06] MEDS ORDERED: MIRTAZAPINE 45 MG TABLET PO SCH (21:00)
[2016-07-06] MEDS ORDERED: OLANZapine 5 MG TAB PO SCH (21:00)
== END 2016-07-06 16:07 | disposition short-term general hospital (02) | DRG 871 ==
LOC: EC 00:44 → 4MS4W 03:06 → 6ICU 07-02 21:12 → 5MS5E 07-04 18:28
PROVIDERS: ADMIT Family Medicine; ATTEND Family Medicine
DX: A41.9 Sepsis, unspecified organism (principal); J96.01 Acute respiratory failure with hypoxia; G93.41 Metabolic encephalopathy; K85.91 Acute pancreatitis with uninfected necrosis, unspecified; F11.20 Opioid dependence, uncomplicated; F23 Brief psychotic disorder; J98.11 Atelectasis; I10 Essential (primary) hypertension; K80.20 Calculus of gallbladder without cholecystitis without obstruction; B18.2 Chronic viral hepatitis C; G40.909 Epilepsy, unspecified, not intractable, without status epilepticus; J44.9 Chronic obstructive pulmonary disease, unspecified; F25.9 Schizoaffective disorder, unspecified; F31.9 Bipolar disorder, unspecified; F41.9 Anxiety disorder, unspecified; K76.0 Fatty (change of) liver, not elsewhere classified; F10.21 Alcohol dependence, in remission; R00.0 Tachycardia, unspecified; R74.8 Abnormal levels of other serum enzymes; E66.9 Obesity, unspecified; F17.210 Nicotine dependence, cigarettes, uncomplicated; E80.6 Other disorders of bilirubin metabolism; T42.4X1A Poisoning by benzodiazepines, accidental (unintentional), initial encounter; F22 Delusional disorders; F19.10 Other psychoactive substance abuse, uncomplicated; R74.0 Nonspecific elevation of levels of transaminase and lactic acid dehydrogenase [LDH]; M16.10 Unilateral primary osteoarthritis, unspecified hip; M17.10 Unilateral primary osteoarthritis, unspecified knee; R53.1 Weakness; Z88.5 Allergy status to narcotic agent; Z88.8 Allergy status to other drugs, medicaments and biological substances; Z68.38 Body mass index [BMI] 38.0-38.9, adult; Z79.899 Other long term (current) drug therapy; Z81.8 Family history of other mental and behavioral disorders; Z82.49 Family history of ischemic heart disease and other diseases of the circulatory system; Z91.5 Personal history of self-harm; Z91.011 Allergy to milk products; Z81.1 Family history of alcohol abuse and dependence; Z90.49 Acquired absence of other specified parts of digestive tract; Z86.69 Personal history of other diseases of the nervous system and sense organs; Z79.1 Long term (current) use of non-steroidal anti-inflammatories (NSAID); Z63.5 Disruption of family by separation and divorce; Y92.230 Patient room in hospital as the place of occurrence of the external cause
CPT/HCPCS: 36415; 36600; 71010; 74160; 74177; 76705; 80048; 80053; 80061; 80306; 81001; 82150; 82805; 83605; 83690; 83735; 84100; 84132; 85025; 85027; 85610; 87040; 87086; 87522; 94640; 94760; 96361; 96374; 96375; 96376; 99285

== ENCOUNTER 2016-07-25 15:35 | Emergency (ER) | payer OTHER ==
[2016-07-25] MEDS ORDERED: SODIUM CHLORIDE 0.9% 500 ML IV ONE (17:37)
[2016-07-25] MEDS ORDERED: SODIUM CHLORIDE 0.9% 1,000 ML IV SCH (17:45)
[2016-07-25 18:01] LABS: CH 28.1; CHCM 31.4; HCT 30.6 % (39.0-53.0); HDW 2.83; HGB 9.5 gm/dL (13.0-17.5); Hypochromasia Slight; Immature Gran Flag Moderate; MCH 27.6 pg (25.0-35.0); MCHC 30.9 g/dL (31.0-37.0); Mean Platelet Volume 7.1; RBC 3.42 m/uL (4.30-5.90); RDW 14.2 % (11.5-15.5); WBC (Perox) 19.16
[2016-07-25 18:07] LABS: ALT 55 U/L (21-72); AST 76 U/L (17-59); Alkaline Phosphatase 141 U/L (38-126); Anion Gap 10 mmol/L; Blood Urea Nitrogen 6 mg/dL (9-20); Calcium 8.6 mg/dL (8.4-10.2); Carbon Dioxide 31 mmol/L (22-30); Chloride 94 mmol/L (98-107); Glucose 117 mg/dL (74-99); Non-African American GFR(MDRD) >60 (>60 ml/min/1.73 sqM); Potassium 4.1 mmol/L (3.5-5.1); Sodium 135 mmol/L (137-145); Total Bilirubin 0.5 mg/dL (0.2-1.3); Total Protein 6.7 g/dL (6.3-8.2)
--- NOTE | 2016-07-25 18:11 | ED ---
General Adult HPI - General Chief complaint: Skin/Abscess/Foreign Body Stated complaint: fever, weakness Time Seen by Provider: 07/25/16 16:12 Source: patient, family, EMS, RN notes reviewed, old records reviewed Mode of arrival: EMS Limitations: no limitations - History of Present Illness Initial comments: Chief complaint and history of present illness a 41-year-old male brought emergency room by ambulance. The patient had some blood in the tube this evacuating the area of the bed of the pancreas. Last month patient was admitted to hospital with acute severe pancreatitis with the possibility of necrosis of the pancreas. He was transferred to [facility] where he had a drain placed. This for the past several days the patient's been having slight greenish colored fluid and off milky colored fluid into the collecting bag. Today developed a temperature of 100 per his mother and it was noted that the patient had appeared to be some bloody colored material in the container. The visiting nurse had been in contact with the operating surgeon at [facility]. He instructed her as to how to clear the draining apparatus with normal saline. Small clots removed and then a large amount of grayish yellow fluid was evacuated. This is different in color than he had before. It appears to be pus without odor. - Related Data Home Medications Medication Instructions Recorded Confirmed Atorvastatin [Lipitor] 20 mg PO HS 05/02/16 07/25/16 Lisinopril [Zestril] 5 mg PO HS 07/01/16 07/25/16 Mirtazapine [Remeron] 45 mg PO HS 07/01/16 07/25/16 OLANZapine [ZyPREXA] 5 mg PO HS 07/01/16 07/25/16 Methocarbamol [Robaxin] 500 mg PO QID 07/25/16 07/25/16 oxyCODONE HCL 15 mg PO Q4H PRN 07/25/16 07/25/16 oxyCODONE HCL 20 mg PO Q4H PRN 07/25/16 07/25/16 Allergies Allergy/AdvReac Type Severity Reaction Status Date / Time codeine Allergy Swelling Verified 07/25/16 15:51 furosemide [From Lasix] Allergy Rash/Hives Verified 07/25/16 15:51 haloperidol [From Haldol] Allergy Unknown Verified 07/25/16 15:51 haloperidol lactate Allergy Unknown Verified 07/25/16 15:51 [From Haldol] prochlorperazine edisylate Allergy Swelling Verified 07/25/16 15:51 [From Compazine] prochlorperazine maleate Allergy Swelling Verified 07/25/16 15:51 [From Compazine] milk AdvReac Severe Diarrhea Verified 07/25/16 15:51 Milk Containing Products AdvReac Severe Diarrhea Verified 07/25/16 15:51 Review of Systems ROS Statement: Those systems with pertinent positive or pertinent negative responses have been documented in the HPI. Review of systems; patient is not complaining of any visual acuity or headache chest pain or shortness of breath he has persistent discomfort in the abdomen. Earlier today he appeared as though his drain was not functioning and material is coming around the drain through the opening in the skin. Once his home visiting nurse fixed the draining tube a large amount of grayish-colored material was removed he reports as a difficulty had before. It does appear to be puslike without significant odor. Past medical problems significant for polysubstance include abuse including benzodiazepines and opiates. Past medical problems psychological history includes schizoaffective disorder, chronic tobacco abuse and chronic hipc and pancreatitis. Patient was also diagnosed with cholelithiasis. Patient in transfer down [facility] [place] had a drain placed in the pancreatic bed and was discharged with a diagnosis of necrotic pancreas and cholelithiasis. Patient has ALLERGIES to codeine Lasix hollow. All Compazine and milk products. Continue to smoke cigarettes pack per day. Past history of alcoholism. Family history noncontributory ROS Other: All systems not noted in ROS Statement are negative. Past Medical History Past Medical History: COPD, Seizure Disorder Additional Past Medical History / Comment(s): History of seizures-per patient, his last seizure was in 2011, Hepatitis C, Degenerative disc disease in back, possible arthritis in knees, hips and arms. History of Any Multi-Drug Resistant Organisms: None Reported Past Surgical History: Appendectomy Additional Past Surgical History / Comment(s): Appendectomy-1996, eye surgery- 1998 Past Anesthesia/Blood Transfusion Reactions: No Reported Reaction Past Psychological History: Anxiety, Bipolar, Depression Smoking Status: Current every day smoker Past Alcohol Use History: Rare Additional Past Alcohol Use History / Comment(s): Patient reports he drinks approximately 4 times a year-last drink per patient was this passed wednesday. 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 pt states that he is buying them off the street - Past Family History Brother(s) Additional Family Medical History / Comment(s): Chronic alcoholism Sister(s) Additional Family Medical History / Comment(s): Chronic alcoholism Daughter(s) Additional Family Medical History / Comment(s): One daughter healthy Son(s) Additional Family Medical History / Comment(s): One son healthy Father History Unknown: Yes Family Medical History: AICD/Pacemaker, Myocardial Infarction (MD) Additional Family Medical History / Comment(s): Schizophrenia. Per patient, his father at the age of 59 Mother History Unknown: Yes Family Medical History: No Reported History Additional Family Medical History / Comment(s): HPV General Exam - General Exam Comments Initial Comments: General: The patient is awake and alert, he reportedly had a fever at home recorded by his mother at 100.1. Patient had significant amount of drainage from his previously placed pancreatic bed tube. Vital signs here 98.8 pulse 111 her story rate 20 pulse ox 90% room air with a blood pressure 129/70. Eye: Pupils are equal, round and reactive to light, extra-ocular movements are intact ; there is normal conjunctiva bilaterally. No signs of icterus. Ears, nose, mouth and throat: There are moist mucous membranes and no oral lesions. Neck: The neck is supple, there is no tenderness . Cardiovascular: Tachycardic heart rate, 111. No murmur, rub or gallop is appreciated. Respiratory: Lungs are clear to auscultation, respirations are non-labored, breath sounds are equal. No wheezes, stridor, rales, or rhonchi. Gastrointestinal: Epigastric discomfort. The patient has a draining tube into the bed of his pancreas. He reports he was diagnosed as having a necrotic pancreas. Initially it was draining greenish colored fluid now it's turned to a brownish whitish pus like material without odor. Also some small blood clots. Back: There is no tenderness to palpation in the midline. There is no obvious deformity. No rashes noted. Musculoskeletal: Normal ROM, no tenderness, There is no pedal edema. There is no calf tenderness or swelling. Sensation intact. Neurological: No neurological deficits appreciated. Skin: Skin is warm and dry and no rashes or lesions are noted. Psychiatric: Past history of depression, schizophrenia. No complaints at this time. Limitations: no limitations Course Vital Signs 07/25/16 07/25/16 15:40 19:10 Temperature 98.8 F 99.8 F H Pulse Rate 111 H 103 H Respiratory 20 16 Rate Blood Pressure 129/70 130/60 O2 Sat by Pulse 93 L 93 L Oximetry Medical Decision Making - Medical Decision Making Medical decision making; patient's white count is 19 hemoglobin 9.5 medical 30, potassium 4.1 with a BUN is 61 creatinine 0.73 to GFR greater than 60. AST mildly elevated at 76. Amylase normal 106 lipase normal at 90. Patient's chest x-ray is done one view Shows no acute pulmonary pathology. Awaiting radiologist's final impression. The patient's repeat vital signs shows temperature 99.8 pulse 103 respiratory rate 16 pulse ox 93% room air blood pressure 130/60 The case discussed with dr veloz at [facility] he accepts the patient for transfer. Ranges the made by ambulance to go. The patient has been started on Zosyn IV antibiotics. - Lab Data Result diagrams: 07/25/16 17:45 07/25/16 17:45 Lab Results 07/25/16 07/25/16 07/25/16 Range/Units 17:45 17:45 17:45 WBC 19.0 H (3.8-10.6) k/uL RBC 3.42 L (4.30-5.90) m/uL Hgb 9.5 L (13.0-17.5) gm/dL Hct 30.6 L (39.0-53.0) % MCV 89.5 D (80.0-100.0) fL MCH 27.6 (25.0-35.0) pg MCHC 30.9 L (31.0-37.0) g/dL RDW 14.2 (11.5-15.5) % Plt Count 509 H D (150-450) k/uL Neutrophils % (Manual) 64.0 % Band Neutrophils % 7.5 % Lymphocytes % (Manual) 18.5 % Monocytes % (Manual) 4.0 % Eosinophils % (Manual) 2.5 % Metamyelocytes % 2.5 % Myelocytes % 1.0 % Neutrophils # (Manual) 13.6 H (1.3-7.7) k/uL Lymphocytes # (Manual) 3.5 (1.0-4.8) k/uL Monocytes # (Manual) 0.8 (0-1.0) k/uL Eosinophils # (Manual) 0.5 (0-0.7) k/uL Nucleated RBCs 0 (0-0) /100 WBC Manual Slide Review Performed Toxic Granulation Present Hypochromasia Slight Sodium 135 L (137-145) mmol/L Potassium 4.1 (3.5-5.1) mmol/L Chloride 94 L (98-107) mmol/L Carbon Dioxide 31 H (22-30) mmol/L Anion Gap 10 mmol/L BUN 6 L (9-20) mg/dL Creatinine 0.73 (0.66-1.25) mg/dL Est GFR (MDRD) Af Amer >60 (>60 ml/min/1.73 sqM) Est GFR (MDRD) Non-Af >60 (>60 ml/min/1.73 sqM) Glucose 117 H (74-99) mg/dL Calcium 8.6 (8.4-10.2) mg/dL Total Bilirubin 0.5 (0.2-1.3) mg/dL AST 76 H (17-59) U/L ALT 55 (21-72) U/L Alkaline Phosphatase 141 H (38-126) U/L Total Protein 6.7 (6.3-8.2) g/dL Albumin 3.0 L (3.5-5.0) g/dL Amylase 106 (30-110) U/L Lipase 90 (23-300) U/L Disposition Clinical Impression: Post-operative infection Disposition: OTHER INSTITUTION NOT DEFINED Condition: Serious - Out of Hospital Transfer - Req. Specs Out of Hospital Transfer - Requested Specifics: Other Emergency Center (Being sent to [facility] emergency room)
[2016-07-25] MEDS ORDERED: HYDROmorphone 1 MG/ML 1 ML SYRINGE IVP STA (18:13)
[2016-07-25 18:18] LABS: Add Differential Manual Differential
[2016-07-25 18:23] LABS: Band Neutrophils % 7.5 %; Manual Review Performed; Metamyelocytes % 2.5 %; Nucleated Red Blood Cells 0 /100 WBC (0-0); Total Cells Counted 200; Toxic Granulation Present
[2016-07-25 18:24] LABS: MCV 89.5 fL (80.0-100.0)
[2016-07-25 18:55] LABS: Amylase 106 U/L (30-110)
[2016-07-25] MEDS ORDERED: PIPERACILLIN-TAZOBACTAM 3.375 GM in DEXTROSE/WATER 1 50ML.BAG IVPB STA (19:20)
--- NOTE | 2016-07-25 20:00 | XR ---
EXAMINATION TYPE: XR chest 1V DATE OF EXAM: 07/25/2016 7:56 PM COMPARISON: 02/28/2016 and 07/03/2016. HISTORY: Fever and weakness. TECHNIQUE: Single frontal view of the chest is obtained. FINDINGS: There is no focal air space opacity, pleural effusion, or pneumothorax seen. The cardiac silhouette size is within normal limits. The osseous structures are intact. IMPRESSION: No acute cardiopulmonary process.
[2016-07-25 20:11] VITALS: BP 101/60; PULSE 101; RESP 18; TEMP 99.6
== END 2016-07-25 20:30 | disposition other institution (70) ==
LOC: EC 15:35
DX: T81.4XXA Infection following a procedure, initial encounter (principal); J44.9 Chronic obstructive pulmonary disease, unspecified; G40.909 Epilepsy, unspecified, not intractable, without status epilepticus; F41.9 Anxiety disorder, unspecified; F31.9 Bipolar disorder, unspecified; F17.200 Nicotine dependence, unspecified, uncomplicated; Z79.899 Other long term (current) drug therapy; Z88.5 Allergy status to narcotic agent; Z91.011 Allergy to milk products; Z88.8 Allergy status to other drugs, medicaments and biological substances
CPT/HCPCS: 36415; 80053; 82150; 83690; 85025; 87040; 87070; 87205; 87077; 87186; 71010; 99285; 96365; 96375; 96361 ×3; J1170; J2543

== ENCOUNTER 2016-08-04 18:22 | Emergency (ER) | payer OTHER ==
[2016-08-04] MEDS ORDERED: ACETAMINOPHEN IV (For NPO) 1,000 MG in EMPTY BAG 1 BAG IVPB STA (19:10)
[2016-08-04] MEDS ORDERED: ONDANSETRON 4 MG/2 ML VIAL IVP STA (19:11)
[2016-08-04] MEDS ORDERED: MORPHINE SULFATE 4 MG/ML SYRINGE IV STA ×2 (19:11→21:17)
--- NOTE | 2016-08-04 19:16 | ED ---
General Adult HPI - General Chief complaint: Abdominal Pain Stated complaint: Abdominal pain Time Seen by Provider: 08/04/16 18:56 Source: patient, RN notes reviewed Mode of arrival: wheelchair Limitations: no limitations - History of Present Illness Initial comments: Patient is a pleasant 41-year-old male presenting to emergency Department with complaints of abdominal discomfort. Patient was discharged proximal he 1 week ago from [facility] for pancreatitis. Patient did have a drain placed however is unclear exactly why. Patient believes this was in the region of the pancreas. Patient has had slight decreased output today from the drain tube. Patient normally has 5-600 mL per day of output. Patient had fever yesterday of 101. Patient has had myalgias and chills. Patient has had nausea and decreased oral intake. No dysuria. No cough. No diarrhea. - Related Data Home Medications Medication Instructions Recorded Confirmed Atorvastatin [Lipitor] 20 mg PO HS 05/02/16 08/04/16 Lisinopril [Zestril] 5 mg PO HS 07/01/16 08/04/16 Mirtazapine [Remeron] 45 mg PO HS 07/01/16 08/04/16 OLANZapine [ZyPREXA] 5 mg PO HS 07/01/16 08/04/16 Methocarbamol [Robaxin-750] 750 mg PO QID 08/04/16 08/04/16 oxyCODONE HCL 10 mg PO Q6H PRN 08/04/16 08/04/16 Allergies Allergy/AdvReac Type Severity Reaction Status Date / Time codeine Allergy Swelling Verified 08/04/16 19:22 furosemide [From Lasix] Allergy Rash/Hives Verified 08/04/16 19:22 haloperidol [From Haldol] Allergy Unknown Verified 08/04/16 19:22 haloperidol lactate Allergy Unknown Verified 08/04/16 19:22 [From Haldol] prochlorperazine edisylate Allergy Swelling Verified 08/04/16 19:22 [From Compazine] prochlorperazine maleate Allergy Swelling Verified 08/04/16 19:22 [From Compazine] milk AdvReac Severe Diarrhea Verified 08/04/16 19:22 Milk Containing Products AdvReac Severe Diarrhea Verified 08/04/16 19:22 Review of Systems ROS Statement: Those systems with pertinent positive or pertinent negative responses have been documented in the HPI. ROS Other: All systems not noted in ROS Statement are negative. Constitutional: Reports: fever, chills Eyes: Denies: eye pain ENT: Denies: ear pain Respiratory: Denies: cough, dyspnea Cardiovascular: Denies: chest pain Endocrine: Reports: fatigue Gastrointestinal: Reports: abdominal pain, nausea. Denies: vomiting, diarrhea Genitourinary: Denies: dysuria Musculoskeletal: Denies: back pain Skin: Denies: rash Neurological: Denies: weakness Past Medical History Past Medical History: COPD, Seizure Disorder Additional Past Medical History / Comment(s): History of seizures-per patient, his last seizure was in 2011, Hepatitis C, Degenerative disc disease in back, possible arthritis in knees, hips and arms. , pancreastitis History of Any Multi-Drug Resistant Organisms: None Reported Past Surgical History: Appendectomy Additional Past Surgical History / Comment(s): Appendectomy-1996, eye surgery- 1998 Past Anesthesia/Blood Transfusion Reactions: No Reported Reaction Past Psychological History: Anxiety, Bipolar, Depression Smoking Status: Current every day smoker Past Alcohol Use History: None Reported Additional Past Alcohol Use History / Comment(s): Patient reports he drinks approximately 4 times a year-last drink per patient was this passed wednesday. 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 pt states that he is buying them off the street - Past Family History Brother(s) Additional Family Medical History / Comment(s): Chronic alcoholism Sister(s) Additional Family Medical History / Comment(s): Chronic alcoholism Daughter(s) Additional Family Medical History / Comment(s): One daughter healthy Son(s) Additional Family Medical History / Comment(s): One son healthy Father History Unknown: Yes Family Medical History: AICD/Pacemaker, Myocardial Infarction ([place]) Additional Family Medical History / Comment(s): Schizophrenia. Per patient, his father at the age of 59 Mother History Unknown: Yes Family Medical History: No Reported History Additional Family Medical History / Comment(s): HPV General Exam Limitations: no limitations General appearance: alert, in no apparent distress Head exam: Present: atraumatic Eye exam: Present: normal appearance, PERRL ENT exam: Present: normal oropharynx Neck exam: Present: normal inspection Respiratory exam: Present: normal lung sounds bilaterally Cardiovascular Exam: Present: tachycardia GI/Abdominal exam: Present: soft, tenderness (Left side of the abdomen), other ( Drain tube with white fluid which patient states has been persistent). Absent: distended, guarding, rebound, rigid Extremities exam: Present: normal inspection. Absent: pedal edema, calf tenderness Neurological exam: Present: alert Psychiatric exam: Present: normal affect, normal mood Skin exam: Absent: rash Course Vital Signs 08/04/16 18:31 Temperature 102.5 F H Pulse Rate 122 H Respiratory 16 Rate Blood Pressure 133/81 O2 Sat by Pulse 94 L Oximetry - Reevaluation(s) Reevaluation #1: 08/04/16 21:21 Patient reexamined and has continued symptoms. Patient updated on results and plan. EKG Findings - EKG Comments: EKG Findings:: Sinus tachycardia 110. AK 126. QRS 86. QT 328. QTC 443. Normal axis. Normal QRS. Normal ST-T. Medical Decision Making - Medical Decision Making Case discussed with Saloni at [facility] as well as Dr. Grande, who will accept transfer. - Lab Data Result diagrams: 08/04/16 19:30 08/04/16 19:30 Lab Results 08/04/16 08/04/16 08/04/16 Range/Units 19:30 19:30 19:30 WBC 21.7 H (3.8-10.6) k/uL RBC 3.96 L (4.30-5.90) m/uL Hgb 11.2 L (13.0-17.5) gm/dL Hct 34.1 L (39.0-53.0) % MCV 86.1 (80.0-100.0) fL MCH 28.2 (25.0-35.0) pg MCHC 32.7 (31.0-37.0) g/dL RDW 14.7 (11.5-15.5) % Plt Count 591 H (150-450) k/uL Neutrophils % 80 % Lymphocytes % 9 % Monocytes % 8 % Eosinophils % 1 % Basophils % 0 % Neutrophils # 17.3 H (1.3-7.7) k/uL Lymphocytes # 2.0 (1.0-4.8) k/uL Monocytes # 1.7 H (0-1.0) k/uL Eosinophils # 0.2 (0-0.7) k/uL Basophils # 0.1 (0-0.2) k/uL Hypochromasia Moderate PT (9.0-12.0) sec INR (<1.1) APTT (22.0-30.0) sec Sodium 131 L (137-145) mmol/L Potassium 4.2 (3.5-5.1) mmol/L Chloride 93 L (98-107) mmol/L Carbon Dioxide 24 (22-30) mmol/L Anion Gap 14 mmol/L BUN 7 L (9-20) mg/dL Creatinine 0.74 (0.66-1.25) mg/dL Est GFR (MDRD) Af Amer >60 (>60 ml/min/1.73 sqM) Est GFR (MDRD) Non-Af >60 (>60 ml/min/1.73 sqM) Glucose 123 H (74-99) mg/dL Plasma Lactic Acid Mynor 2.1 H (0.7-2.0) mmol/L Calcium 8.9 (8.4-10.2) mg/dL Total Bilirubin 0.6 (0.2-1.3) mg/dL AST 33 (17-59) U/L ALT 31 (21-72) U/L Alkaline Phosphatase 129 H (38-126) U/L Total Protein 7.5 (6.3-8.2) g/dL Albumin 3.4 L (3.5-5.0) g/dL Amylase 184 H (30-110) U/L Lipase 348 H (23-300) U/L Urine Color Urine Appearance (Clear) Urine pH (5.0-8.0) Ur Specific [place] (1.001-1.035) Urine Protein (Negative) Urine Glucose (UA) (Negative) Urine Ketones (Negative) Urine Blood (Negative) Urine Nitrite (Negative) Urine Bilirubin (Negative) Urine Urobilinogen (<2.0) mg/dL Ur Leukocyte Esterase (Negative) Urine RBC (0-5) /hpf Urine WBC (0-5) /hpf Ur Squamous Epith Cells (0-4) /hpf 08/04/16 08/04/16 Range/Units 19:30 19:30 WBC (3.8-10.6) k/uL RBC (4.30-5.90) m/uL Hgb (13.0-17.5) gm/dL Hct (39.0-53.0) % MCV (80.0-100.0) fL MCH (25.0-35.0) pg MCHC (31.0-37.0) g/dL RDW (11.5-15.5) % Plt Count (150-450) k/uL Neutrophils % % Lymphocytes % % Monocytes % % Eosinophils % % Basophils % % Neutrophils # (1.3-7.7) k/uL Lymphocytes # (1.0-4.8) k/uL Monocytes # (0-1.0) k/uL Eosinophils # (0-0.7) k/uL Basophils # (0-0.2) k/uL Hypochromasia PT 13.5 H (9.0-12.0) sec INR 1.4 (<1.1) APTT 25.0 (22.0-30.0) sec Sodium (137-145) mmol/L Potassium (3.5-5.1) mmol/L Chloride (98-107) mmol/L Carbon Dioxide (22-30) mmol/L Anion Gap mmol/L BUN (9-20) mg/dL Creatinine (0.66-1.25) mg/dL Est GFR (MDRD) Af Amer (>60 ml/min/1.73 sqM) Est GFR (MDRD) Non-Af (>60 ml/min/1.73 sqM) Glucose (74-99) mg/dL Plasma Lactic Acid Mynor (0.7-2.0) mmol/L Calcium (8.4-10.2) mg/dL Total Bilirubin (0.2-1.3) mg/dL AST (17-59) U/L ALT (21-72) U/L Alkaline Phosphatase (38-126) U/L Total Protein (6.3-8.2) g/dL Albumin (3.5-5.0) g/dL Amylase (30-110) U/L Lipase (23-300) U/L Urine Color Yellow Urine Appearance Clear (Clear) Urine pH 6.0 (5.0-8.0) Ur Specific [place] 1.007 (1.001-1.035) Urine Protein Trace H (Negative) Urine Glucose (UA) Negative (Negative) Urine Ketones Negative (Negative) Urine Blood Moderate H (Negative) Urine Nitrite Negative (Negative) Urine Bilirubin Negative (Negative) Urine Urobilinogen <2.0 (<2.0) mg/dL Ur Leukocyte Esterase Negative (Negative) Urine RBC 60 H (0-5) /hpf Urine WBC 5 (0-5) /hpf Ur Squamous Epith Cells 1 (0-4) /hpf - Radiology Data Radiology results: image reviewed (Computed tomography scan of the abdomen pelvis shows findings consistent with pancreatic necrosis with 10 x 8 x 7 cm fluid collection between the pancreas and the stomach. Chest x-ray shows no acute process.) Disposition Clinical Impression: Acute pancreatitis with infected necrosis Disposition: OTHER INSTITUTION NOT DEFINED Condition: Serious - Out of Hospital Transfer - Req. Specs Out of Hospital Transfer - Requested Specifics: Other Emergency Center
[2016-08-04] MEDS: SODIUM CHLORIDE 0.9% 500 ML IV SCH ×3 (19:39→22:50)
[2016-08-04 19:53] LABS: Basophils # (A) 0.1 k/uL (0-0.2); Basophils % (A) 0 %; CH 27.2; CHCM 31.7; Eosinophils # (A) 0.2 k/uL (0-0.7); Eosinophils % (A) 1 %; HCT 34.1 % (39.0-53.0); HGB 11.2 gm/dL (13.0-17.5); Hypochromasia Moderate; Luc # (Auto) 0.38; Luc % (Auto) 2; Lymphocytes % (A) 9 %; MCH 28.2 pg (25.0-35.0); MCHC 32.7 g/dL (31.0-37.0); MCV 86.1 fL (80.0-100.0); Mean Platelet Volume 7.1; Monocytes # (A) 1.7 k/uL (0-1.0); Monocytes % (A) 8 %; Neutrophils # (A) 17.3 k/uL (1.3-7.7); Neutrophils % (A) 80 %; RBC 3.96 m/uL (4.30-5.90); RDW 14.7 % (11.5-15.5); WBC 21.7 k/uL (3.8-10.6); WBC (Perox) 21.55
[2016-08-04 20:00] LABS: INR 1.4 (<1.1); Prothrombin Time 13.5 sec (9.0-12.0)
--- NOTE | 2016-08-04 20:33 | XR ---
EXAMINATION TYPE: XR chest 2V DATE OF EXAM: 08/04/2016 8:16 PM COMPARISON: July 25, 2016 HISTORY: Pain, fever TECHNIQUE: Frontal and lateral views of the chest are obtained. FINDINGS: There is no focal air space opacity, pleural effusion, or pneumothorax seen. The cardiac silhouette size is within normal limits. The osseous structures are intact. IMPRESSION: No acute cardiopulmonary process.
[2016-08-04 20:39] LABS: ALT 31 U/L (21-72); AST 33 U/L (17-59); Alkaline Phosphatase 129 U/L (38-126); Amylase 184 U/L (30-110); Anion Gap 14 mmol/L; Blood Urea Nitrogen 7 mg/dL (9-20); Calcium 8.9 mg/dL (8.4-10.2); Carbon Dioxide 24 mmol/L (22-30); Chloride 93 mmol/L (98-107); Glucose 123 mg/dL (74-99); Non-African American GFR(MDRD) >60 (>60 ml/min/1.73 sqM); Potassium 4.2 mmol/L (3.5-5.1); Sodium 131 mmol/L (137-145); Total Bilirubin 0.6 mg/dL (0.2-1.3); Total Protein 7.5 g/dL (6.3-8.2)
[2016-08-04 21:10] LABS: Appearance,Urine Clear (Clear); Bilirubin,Urine Negative (Negative); Glucose,Urine (UA) Negative (Negative); Ketones,Urine Negative (Negative); Leukocyte Esterase,Urine Negative (Negative); Nitrite,Urine Negative (Negative); Particle Count 1811; Protein,Urine Trace (Negative); RBC,Urine 60 /hpf (0-5); Specific Gravity,Urine 1.007 (1.001-1.035); Squamous Epithelial Cell,Urine 1 /hpf (0-4); UA Billing (MACRO vs. MICRO) MICRO; Urobilinogen,Urine <2.0 mg/dL (<2.0); WBC,Urine 5 /hpf (0-5)
--- NOTE | 2016-08-04 21:14 | CT ---
EXAMINATION TYPE: CT ABDOMEN PELVIS WO CON DATE OF EXAM: 08/04/2016 8:14 PM COMPARISON: NONE HISTORY: History of pancreatitis with drainage tube. Mid abdominal pain. CT DLP: 1230.00 mGycm. One view Automated exposure control for dose reduction was used. TECHNIQUE: Helical acquisition of images was performed from the lung bases through the pelvis. FINDINGS: LUNG BASES: No acute findings. LIVER/GB: The liver and biliary tree is unremarkable. PANCREAS: There is now an 10 x 8 x 7 cm fluid/gas attenuation collection emanating anteriorly from th e pancreatic parenchyma, at the bottom of which lies the percutaneous pigtail catheter which has been introduced in the interim from a left anterior approach. There is redemonstration of the inflammatory edematous changes throughout the extraperitoneal spaces of the abdomen and extending down into the pelvis, as seen on the prior study. SPLEEN: No splenic enlargement. No lesion seen. ADRENALS: No nodule. No thickening. KIDNEYS/BLADDER: No hydronephrosis. No nephrolithiasis. No distinct renal mass. Urinary bladder grossly unremarkable. BOWEL: Normal appendix. Normal bowel caliber. No inflammation. LYMPH NODES: No greater than 1cm abdominal or pelvic lymph nodes are appreciated. AORTA: No significant abnormality. OSSEOUS STRUCTURES: No significant abnormality is seen. Limitations of noncontrast CT include limited sensitivity for focal visceral lesions and for intravas cular pathology. IMPRESSION: FINDINGS CONSISTENT WITH PANCREATIC NECROSIS WITH 10 X 8 X 7 CM FLUID COLLECTION SITUATED BETWEEN THE PANCREAS AND THE STOMACH.
[2016-08-04] MEDS ORDERED: FAMOTIDINE 20 MG/2 ML VIAL IV STA (21:20)
[2016-08-04 21:27] VITALS: RESP 18
[2016-08-04] MEDS ORDERED: PIPERACILLIN-TAZOBACTAM 3.375 GM in DEXTROSE/WATER 1 50ML.BAG IVPB STA (21:28)
[2016-08-04 22:23] VITALS: BP 118/67; PULSE 90; TEMP 100.2
== END 2016-08-04 22:52 | disposition other institution (70) ==
LOC: EC 18:22
DX: K85.92 Acute pancreatitis with infected necrosis, unspecified (principal); F31.9 Bipolar disorder, unspecified; F41.9 Anxiety disorder, unspecified; F17.200 Nicotine dependence, unspecified, uncomplicated; Z79.899 Other long term (current) drug therapy; Z88.5 Allergy status to narcotic agent; Z88.8 Allergy status to other drugs, medicaments and biological substances; Z91.011 Allergy to milk products
CPT/HCPCS: 99285; 96365; 96375 ×4; 96376; 96361; 36415; 93005; 80053; 82150; 83605; 83690; 85025; 85610; 85730; 81001; 87040; 87086; 71020; 74176; J2270; J2405; J2543; J0131

== ENCOUNTER 2016-08-16 18:33 | Emergency (ER) | payer OTHER ==
[2016-08-16] MEDS ORDERED: HYDROmorphone 1 MG/ML 1 ML SYRINGE IVP STA (18:40)
[2016-08-16] MEDS ORDERED: ONDANSETRON 4 MG/2 ML VIAL IVP STA (18:40)
[2016-08-16] MEDS ORDERED: SODIUM CHLORIDE 0.9% 1,000 ML IV STA ×2 (18:40→18:47)
[2016-08-16] MEDS ORDERED: ACETAMINOPHEN IV (For NPO) 1,000 MG in SALINE 100 100ML.BAG IVPB STA (18:40)
--- NOTE | 2016-08-16 18:51 | ED ---
General Adult HPI - General Source: patient, RN notes reviewed Mode of arrival: EMS Limitations: no limitations <Leopoldo Caballero - Last Filed: 08/16/16 20:05> <Anish Dueñas - Last Filed: 08/16/16 21:53> - General Chief complaint: Abdominal Pain Stated complaint: abd pain Time Seen by Provider: 08/16/16 18:37 - History of Present Illness Initial comments: 41-year-old male who presents emergency room today by EMS, the chief complaint of increased abdominal pain. He does admit that it started last night. Patient does admit that it's worse in the lower quadrants. Patient admits to symptoms of nausea, vomiting, diarrhea. Denies any signs of blood. Denies any other complaints currently. Patient denies any recent fever, chills, shortness of breath, chest pain, back pain, numbness or tingling, dysuria or hematuria, constipation, headaches or visual changes, or any other complaints. (Leopoldo Caballero) - Related Data Home Medications Medication Instructions Recorded Confirmed Atorvastatin [Lipitor] 20 mg PO HS 05/02/16 08/16/16 Lisinopril [Zestril] 5 mg PO HS 07/01/16 08/16/16 Mirtazapine [Remeron] 45 mg PO HS 07/01/16 08/16/16 OLANZapine [ZyPREXA] 5 mg PO HS 07/01/16 08/16/16 Methocarbamol [Robaxin-750] 750 mg PO QID 08/04/16 08/16/16 oxyCODONE HCL 10 mg PO Q6H PRN 08/04/16 08/16/16 Previous Rx's Medication Instructions Recorded Amoxicillin/Potassium Clav 1 each PO Q12HR #20 tab 08/16/16 [Augmentin 875-125 Tablet] Azithromycin [Zithromax] 500 mg PO DAILY 5 Days 08/16/16 Ibuprofen [Motrin] 400 mg PO Q4H #10 tab 08/16/16 Allergies Allergy/AdvReac Type Severity Reaction Status Date / Time codeine Allergy Swelling Verified 08/16/16 19:04 furosemide [From Lasix] Allergy Rash/Hives Verified 08/16/16 19:04 haloperidol [From Haldol] Allergy Unknown Verified 08/16/16 19:04 haloperidol lactate Allergy Unknown Verified 08/16/16 19:04 [From Haldol] prochlorperazine edisylate Allergy Swelling Verified 08/16/16 19:04 [From Compazine] prochlorperazine maleate Allergy Swelling Verified 08/16/16 19:04 [From Compazine] milk AdvReac Severe Diarrhea Verified 08/16/16 19:04 Milk Containing Products AdvReac Severe Diarrhea Verified 08/16/16 19:04 Review of Systems ROS Other: All systems not noted in ROS Statement are negative. <Leopoldo Caballreo - Last Filed: 08/16/16 20:05> ROS Other: All systems not noted in ROS Statement are negative. <Anish Dueñas - Last Filed: 08/16/16 21:53> ROS Statement: Those systems with pertinent positive or pertinent negative responses have been documented in the HPI. Past Medical History Past Medical History: COPD, Seizure Disorder Additional Past Medical History / Comment(s): History of seizures-per patient, his last seizure was in 2011, Hepatitis C, Degenerative disc disease in back, possible arthritis in knees, hips and arms. , pancreastitis History of Any Multi-Drug Resistant Organisms: None Reported Past Surgical History: Appendectomy Additional Past Surgical History / Comment(s): Appendectomy-1996, eye surgery- 1998 Past Anesthesia/Blood Transfusion Reactions: No Reported Reaction Past Psychological History: Anxiety, Bipolar, Depression Smoking Status: Current every day smoker Past Alcohol Use History: None Reported Additional Past Alcohol Use History / Comment(s): Patient reports he drinks approximately 4 times a year-last drink per patient was this passed wednesday. 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 pt states that he is buying them off the street - Past Family History Brother(s) Additional Family Medical History / Comment(s): Chronic alcoholism Sister(s) Additional Family Medical History / Comment(s): Chronic alcoholism Daughter(s) Additional Family Medical History / Comment(s): One daughter healthy Son(s) Additional Family Medical History / Comment(s): One son healthy Father History Unknown: Yes Family Medical History: AICD/Pacemaker, Myocardial Infarction ([place]) Additional Family Medical History / Comment(s): Schizophrenia. Per patient, his father at the age of 59 Mother History Unknown: Yes Family Medical History: No Reported History Additional Family Medical History / Comment(s): HPV <Leopoldo Caballero - Last Filed: 08/16/16 20:05> General Exam Limitations: no limitations <Leopoldo Caballero - Last Filed: 08/16/16 20:05> <Anish Dueñas - Last Filed: 08/16/16 21:53> - General Exam Comments Initial Comments: General: The patient is awake and alert, in no distress, and does not appear acutely ill. Eye: Pupils are equal, round and reactive to light, extra-ocular movements are intact. No nystagmus. There is normal conjunctiva bilaterally. No signs of icterus. Ears, nose, mouth and throat: There are moist mucous membranes and no oral lesions. Neck: The neck is supple, there is no tenderness or JVD. Cardiovascular: There is a regular rate and rhythm. No murmur, rub or gallop is appreciated. Respiratory: Lungs are clear to auscultation, respirations are non-labored, breath sounds are equal. No wheezes, stridor, rales, or rhonchi. Gastrointestinal: Abdomen soft on palpation. Normal bowel sounds. Patient does have tenderness left upper quadrant. Tender in both left and right lower quadrants. No guarding. No CVA tenderness. Musculoskeletal: Normal ROM, no tenderness. Strength 5/5. Sensation intact. Pulses equal bilaterally 2+. Neurological: A&O x 3. CN II-XII intact, There are no obvious motor or sensory deficits. Coordination appears grossly intact. Speech is normal. Skin: Skin is warm and dry and no rashes or lesions are noted. Psychiatric: Cooperative, appropriate mood & affect, normal judgment. (Leopoldo Caballero) Course <Leopoldo Caballero - Last Filed: 08/16/16 20:05> <Anish Dueñas - Last Filed: 08/16/16 21:53> Vital Signs 08/16/16 08/16/16 08/16/16 18:41 19:24 20:45 Temperature 102.6 F H 98.8 F Pulse Rate 120 H 109 H 105 H Respiratory 20 18 16 Rate Blood Pressure 132/72 143/82 124/82 O2 Sat by Pulse 96 94 L 96 Oximetry - Reevaluation(s) Reevaluation #1: 08/16/16 20:[address] of the abdomen and pelvis currently pending at this time. Case discussed and signed the admitting physician Dr. Dueñas. (Leopoldo Caballero) Medical Decision Making - Lab Data Result diagrams: 08/16/16 19:10 <Leopoldo Caballero - Last Filed: 08/16/16 20:05> - Lab Data Result diagrams: 08/16/16 19:10 08/16/16 19:10 <Anish Dueñas - Last Filed: 08/16/16 21:53> - Medical Decision Making Medical decision making. I examined the patient patient's history includes nausea vomiting 3 times since last night fever increased since last night 102 here and came down to 98 after antipyretic use. The patient reports she took Tylenol at home. Pain is increased since last night. Again as noted the fever started last night. The patient has a history of chronic necrotic pancreas. He 's had a drain placed in the bed of the pancreas for several months. He sees a surgeon at [facility]. The patient's labs showed an increased white count today at 23.5. The patient had Zosyn started while in emergency room. Hemoglobin 11.8 hematocrit of 39 with platelets of 500. INR 1.3. Potassium 3.8 , BUN 8 creatinine 0.6 with GFR greater than 60. Amylase 166 lipase 634. Urine essentially clean and free of infection. Patient did have CAT scan of the abdomen and it was reviewed by the radiologist entire report was reviewed his final impression is recorded here. Impression; there has been interval increase in inflammatory change in the mesenteric fat and descending colon, correlate for colitis. There may be secondary inflammatory changes of the patient's pancreatitis and pancreatic fluid collection. As read by Dr. Goff. The patient's case discussed with Dr. Rivers at [facility] patient be transferred via ambulance to the emergency room. Dr. Dueñas (Anish Dueñas) - Lab Data Lab Results 08/16/16 08/16/16 08/16/16 Range/Units 19:10 19:10 19:10 WBC 23.5 H (3.8-10.6) k/uL RBC 4.56 (4.30-5.90) m/uL Hgb 11.8 L (13.0-17.5) gm/dL Hct 39.4 (39.0-53.0) % MCV 86.4 (80.0-100.0) fL MCH 25.9 (25.0-35.0) pg MCHC 30.0 L (31.0-37.0) g/dL RDW 15.6 H (11.5-15.5) % Plt Count 506 H (150-450) k/uL Neutrophils % (Manual) 80.0 % Lymphocytes % (Manual) 10.0 % Monocytes % (Manual) 10.0 % Neutrophils # (Manual) 18.8 H (1.3-7.7) k/uL Lymphocytes # (Manual) 2.4 (1.0-4.8) k/uL Monocytes # (Manual) 2.4 H (0-1.0) k/uL Nucleated RBCs 0 (0-0) /100 WBC Manual Slide Review Performed Polychromasia Present Hypochromasia Marked Anisocytosis (manual) Present Target Cells Present PT (9.0-12.0) sec INR (<1.1) APTT (22.0-30.0) sec Sodium 136 L (137-145) mmol/L Potassium 3.8 (3.5-5.1) mmol/L Chloride 101 (98-107) mmol/L Carbon Dioxide 25 (22-30) mmol/L Anion Gap 10 mmol/L BUN 8 L (9-20) mg/dL Creatinine 0.60 L (0.66-1.25) mg/dL Est GFR (MDRD) Af Amer >60 (>60 ml/min/1.73 sqM) Est GFR (MDRD) Non-Af >60 (>60 ml/min/1.73 sqM) Glucose 112 H (74-99) mg/dL Plasma Lactic Acid Mynor 1.3 (0.7-2.0) mmol/L Calcium 8.9 (8.4-10.2) mg/dL Total Bilirubin 0.7 (0.2-1.3) mg/dL AST 35 (17-59) U/L ALT 28 (21-72) U/L Alkaline Phosphatase 143 H (38-126) U/L Total Protein 6.9 (6.3-8.2) g/dL Albumin 3.3 L (3.5-5.0) g/dL Amylase 166 H (30-110) U/L Lipase 634 H (23-300) U/L Urine Color Urine Appearance (Clear) Urine pH (5.0-8.0) Ur Specific [place] (1.001-1.035) Urine Protein (Negative) Urine Glucose (UA) (Negative) Urine Ketones (Negative) Urine Blood (Negative) Urine Nitrite (Negative) Urine Bilirubin (Negative) Urine Urobilinogen (<2.0) mg/dL Ur Leukocyte Esterase (Negative) Urine RBC (0-5) /hpf Urine WBC (0-5) /hpf Ur Squamous Epith Cells (0-4) /hpf Amorphous Sediment (None) /hpf Hyaline Casts (0-2) /lpf Urine Mucus (None) /hpf 08/16/16 08/16/16 Range/Units 19:10 19:20 WBC (3.8-10.6) k/uL RBC (4.30-5.90) m/uL Hgb (13.0-17.5) gm/dL Hct (39.0-53.0) % MCV (80.0-100.0) fL MCH (25.0-35.0) pg MCHC (31.0-37.0) g/dL RDW (11.5-15.5) % Plt Count (150-450) k/uL Neutrophils % (Manual) % Lymphocytes % (Manual) % Monocytes % (Manual) % Neutrophils # (Manual) (1.3-7.7) k/uL Lymphocytes # (Manual) (1.0-4.8) k/uL Monocytes # (Manual) (0-1.0) k/uL Nucleated RBCs (0-0) /100 WBC Manual Slide Review Polychromasia Hypochromasia Anisocytosis (manual) Target Cells PT 13.3 H (9.0-12.0) sec INR 1.3 (<1.1) APTT 24.8 (22.0-30.0) sec Sodium (137-145) mmol/L Potassium (3.5-5.1) mmol/L Chloride (98-107) mmol/L Carbon Dioxide (22-30) mmol/L Anion Gap mmol/L BUN (9-20) mg/dL Creatinine (0.66-1.25) mg/dL Est GFR (MDRD) Af Amer (>60 ml/min/1.73 sqM) Est GFR (MDRD) Non-Af (>60 ml/min/1.73 sqM) Glucose (74-99) mg/dL Plasma Lactic Acid Mynor (0.7-2.0) mmol/L Calcium (8.4-10.2) mg/dL Total Bilirubin (0.2-1.3) mg/dL AST (17-59) U/L ALT (21-72) U/L Alkaline Phosphatase (38-126) U/L Total Protein (6.3-8.2) g/dL Albumin (3.5-5.0) g/dL Amylase (30-110) U/L Lipase (23-300) U/L Urine Color Yellow Urine Appearance Cloudy (Clear) Urine pH 6.0 (5.0-8.0) Ur Specific [place] 1.018 (1.001-1.035) Urine Protein 2+ H (Negative) Urine Glucose (UA) Negative (Negative) Urine Ketones Negative (Negative) Urine Blood Negative (Negative) Urine Nitrite Negative (Negative) Urine Bilirubin Negative (Negative) Urine Urobilinogen 2.0 (<2.0) mg/dL Ur Leukocyte Esterase Negative (Negative) Urine RBC <1 (0-5) /hpf Urine WBC 4 (0-5) /hpf Ur Squamous Epith Cells 1 (0-4) /hpf Amorphous Sediment Occasional H (None) /hpf Hyaline Casts 1 (0-2) /lpf Urine Mucus Few H (None) /hpf Disposition <Leopoldo Caballero - Last Filed: 08/16/16 20:05> - Out of Hospital Transfer - Req. Specs Out of Hospital Transfer - Requested Specifics: Other Emergency Center ([facility] main cat 2) <Anish Dueñas - Last Filed: 08/16/16 21:53> Clinical Impression: Chronic recurrent pancreatitis Disposition: OTHER INSTITUTION NOT DEFINED Condition: Serious Prescriptions: Amoxicillin/Potassium Clav [Augmentin 875-125 Tablet] 1 each PO Q12HR #20 tab Azithromycin [Zithromax] 500 mg PO DAILY 5 Days Ibuprofen [Motrin] 400 mg PO Q4H #10 tab Referrals: Hilton Manzanares MD [Primary Care Provider] - 1-2 days
[2016-08-16] MEDS ORDERED: RX INFO: IV CONTRAST WAS GIVEN 1 EACH MISC MISCELLANE PRN (19:48)
[2016-08-16 19:50] LABS: Amorphous Sediment,Urine Occasional /hpf; Appearance,Urine Cloudy (Clear); Bilirubin,Urine Negative (Negative); Glucose,Urine (UA) Negative (Negative); Ketones,Urine Negative (Negative); Leukocyte Esterase,Urine Negative (Negative); Mucus,Urine Few /hpf; Nitrite,Urine Negative (Negative); Particle Count 6680; Protein,Urine 2+ (Negative); RBC,Urine <1 /hpf (0-5); Specific Gravity,Urine 1.018 (1.001-1.035); Squamous Epithelial Cell,Urine 1 /hpf (0-4); UA Billing (MACRO vs. MICRO) MICRO; WBC,Urine 4 /hpf (0-5)
--- NOTE | 2016-08-16 19:50 | XR ---
Abdomen HISTORY: Pancreatitis, drainage tube, abdominal pain Frontal view of the abdomen on 2 images correlated to prior CT 04 August 2016 Drainage catheter is present in the left hemiabdomen. There is some minimal increased density present at the right costophrenic angle may be due to atelectatic change or scarring, granuloma is present. There is no bowel obstruction or pneumoperitoneum. Phleboliths are present within the pelvis. IMPRESSION: No acute abnormalities evident.
[2016-08-16 19:51] LABS: CH 26.7; CHCM 30.9; HCT 39.4 % (39.0-53.0); HDW 3.14; HGB 11.8 gm/dL (13.0-17.5); Hypochromasia Marked; MCH 25.9 pg (25.0-35.0); MCV 86.4 fL (80.0-100.0); Mean Platelet Volume 7.5; RBC 4.56 m/uL (4.30-5.90); RDW 15.6 % (11.5-15.5); WBC 23.5 k/uL (3.8-10.6); WBC (Perox) 23.28
[2016-08-16 19:57] LABS: ALT 28 U/L (21-72); AST 35 U/L (17-59); Alkaline Phosphatase 143 U/L (38-126); Amylase 166 U/L (30-110); Anion Gap 10 mmol/L; Blood Urea Nitrogen 8 mg/dL (9-20); Calcium 8.9 mg/dL (8.4-10.2); Carbon Dioxide 25 mmol/L (22-30); Chloride 101 mmol/L (98-107); Glucose 112 mg/dL (74-99); Non-African American GFR(MDRD) >60 (>60 ml/min/1.73 sqM); Potassium 3.8 mmol/L (3.5-5.1); Sodium 136 mmol/L (137-145); Total Bilirubin 0.7 mg/dL (0.2-1.3); Total Protein 6.9 g/dL (6.3-8.2)
[2016-08-16 20:10] LABS: Add Differential Manual Differential
[2016-08-16 20:12] LABS: Nucleated Red Blood Cells 0 /100 WBC (0-0); Polychromasia Present; Target Cells Present; Total Cells Counted 100
[2016-08-16 20:13] LABS: Manual Review Performed
[2016-08-16 20:15] LABS: INR 1.3 (<1.1); Partial Thromboplastin Time 24.8 sec (22.0-30.0); Prothrombin Time 13.3 sec (9.0-12.0)
[2016-08-16 20:47] VITALS: BP 124/82; PULSE 105; RESP 16; TEMP 98.8
--- NOTE | 2016-08-16 21:01 | CT ---
EXAMINATION TYPE: CT abdomen pelvis w con DATE OF EXAM: 08/16/2016 8:36 PM COMPARISON: Prior exam 04 August 2016 HISTORY: Pt states of abdominal pain with N/V/D. hx of pancreatic drain tube CT DLP: 1915.3 mGycm Automated exposure control for dose reduction was used. TECHNIQUE: Helical acquisition of images from the lung bases through the pelvis have been completed. CONTRAST: Performed without Oral Contrast and with IV Contrast, patient injected with 100 mL of Omnipaque 300. FINDINGS: LUNG BASES: No significant interval change is appreciated. AORTA: No significant interval change is appreciated. LIVER/GB: No significant interval change is appreciated. The liver shows low attenuation likely due t o fatty infiltration. Small amount of fluid is present adjacent to the liver. PANCREAS: There is a drainage tube within the peripancreatic fluid collection with some associated ar eas of lucency, the collection appears somewhat smaller SPLEEN: No significant abnormality is seen. ADRENALS: No significant abnormality is seen. KIDNEYS: No significant abnormality is seen. REPRODUCTIVE ORGANS: No significant abnormality is seen BOWEL: The descending colon shows wall thickening. There are inflammatory changes present in the lef t paracolic gutter, mesenteric fat which have increased in the interval, there is no bowel obstructio n FREE AIR: No Free Air visible. ASCITES: There is fluid adjacent to the spleen as well as the liver slightly increased from previous exam PELVIC ADENOPATHY: None visualized. RETROPERITONEAL ADENOPATHY: No Retroperitoneal Adenopathy visible. URINARY BLADDER: No significant abnormality is seen. OSSEOUS STRUCTURES: No significant interval change is seen. IMPRESSION: THERE IS BEEN INTERVAL INCREASE IN INFLAMMATORY CHANGE IN THE MESENTERIC FAT AND descending colon, co rrelate for colitis. There may be secondary inflammatory change to patient's pancreatitis and pancrea tic fluid collection.
[2016-08-16] MEDS ORDERED: PIPERACILLIN-TAZOBACTAM 3.375 GM in DEXTROSE/WATER 1 50ML.BAG IVPB STA (21:11)
== END 2016-08-16 22:17 | disposition short-term general hospital (02) ==
LOC: EC 18:33
DX: K86.1 Other chronic pancreatitis (principal); F32.9 Major depressive disorder, single episode, unspecified; F31.9 Bipolar disorder, unspecified; F17.200 Nicotine dependence, unspecified, uncomplicated; Z90.49 Acquired absence of other specified parts of digestive tract; Z88.5 Allergy status to narcotic agent; Z88.8 Allergy status to other drugs, medicaments and biological substances; Z91.011 Allergy to milk products; Z79.899 Other long term (current) drug therapy
CPT/HCPCS: 99285; 96365; 96366; 96375 ×2; 36415; 80053; 82150; 83605; 83690; 85025; 85610; 85730; 81001; 87040; 87077; 87186; 74000; 74177; J2405; J1170; J2543; Q9967; J0131

== ENCOUNTER 2016-08-25 16:35 | Emergency (ER) | payer OTHER ==
[2016-08-25] MEDS ORDERED: ACETAMINOPHEN IV (For NPO) 1,000 MG in EMPTY BAG 1 BAG IVPB STA (17:01)
[2016-08-25] MEDS ORDERED: RX INFO: IV CONTRAST WAS GIVEN 1 EACH MISC MISCELLANE PRN (17:02)
[2016-08-25] MEDS ORDERED: HYDROmorphone 1 MG/ML 1 ML SYRINGE IVP STA (17:02)
--- NOTE | 2016-08-25 17:05 | ED ---
General Adult HPI - General Chief complaint: Fever Stated complaint: Abd Pain, Fever Time Seen by Provider: 08/25/16 16:52 Source: patient, RN notes reviewed Mode of arrival: wheelchair Limitations: no limitations - History of Present Illness Initial comments: Patient is a pleasant 41-year-old male presenting to the emergency Department with complaints of fever. Patient does have a recent history of necrotic pancreatitis. Patient has known gallstones however surgery has been deferred at this time. Patient has been to [facility]. Patient does have drain tube in place. Patient states during tube has not had much drainage over the past week. Patient was just discharged from the hospital several days ago. Patient had fever again this morning. Patient does have continued abdominal discomfort however states this is been fairly steady for the past few weeks. - Related Data Home Medications Medication Instructions Recorded Confirmed Atorvastatin [Lipitor] 20 mg PO HS 05/02/16 08/25/16 Lisinopril [Zestril] 5 mg PO HS 07/01/16 08/25/16 Mirtazapine [Remeron] 45 mg PO HS 07/01/16 08/25/16 OLANZapine [ZyPREXA] 5 mg PO HS 07/01/16 08/25/16 oxyCODONE HCL 10 mg PO Q6H PRN 08/04/16 08/25/16 Omeprazole 40 mg PO DAILY 08/25/16 08/25/16 Allergies Allergy/AdvReac Type Severity Reaction Status Date / Time codeine Allergy Swelling Verified 08/25/16 17:23 furosemide [From Lasix] Allergy Rash/Hives Verified 08/25/16 17:23 haloperidol [From Haldol] Allergy Unknown Verified 08/25/16 17:23 haloperidol lactate Allergy Unknown Verified 08/25/16 17:23 [From Haldol] prochlorperazine edisylate Allergy Swelling Verified 08/25/16 17:23 [From Compazine] prochlorperazine maleate Allergy Swelling Verified 08/25/16 17:23 [From Compazine] milk AdvReac Severe Diarrhea Verified 08/25/16 17:23 Milk Containing Products AdvReac Severe Diarrhea Verified 08/25/16 17:23 Review of Systems ROS Statement: Those systems with pertinent positive or pertinent negative responses have been documented in the HPI. ROS Other: All systems not noted in ROS Statement are negative. Constitutional: Denies: fever Eyes: Denies: eye pain ENT: Denies: ear pain Respiratory: Denies: cough Cardiovascular: Denies: chest pain Endocrine: Denies: fatigue Gastrointestinal: Reports: abdominal pain, nausea, diarrhea Genitourinary: Denies: dysuria Musculoskeletal: Denies: back pain Skin: Denies: rash Neurological: Denies: headache Past Medical History Past Medical History: COPD, Seizure Disorder Additional Past Medical History / Comment(s): History of seizures-per patient, his last seizure was in 2011, Hepatitis C, Degenerative disc disease in back, possible arthritis in knees, hips and arms. , pancreastitis History of Any Multi-Drug Resistant Organisms: None Reported Past Surgical History: Appendectomy Additional Past Surgical History / Comment(s): Appendectomy-1996, eye surgery- 1998 Past Anesthesia/Blood Transfusion Reactions: No Reported Reaction Past Psychological History: Anxiety, Bipolar, Depression Smoking Status: Current every day smoker Past Alcohol Use History: None Reported Additional Past Alcohol Use History / Comment(s): Patient reports he drinks approximately 4 times a year-last drink per patient was this passed wednesday. 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 pt states that he is buying them off the street - Past Family History Brother(s) Additional Family Medical History / Comment(s): Chronic alcoholism Sister(s) Additional Family Medical History / Comment(s): Chronic alcoholism Daughter(s) Additional Family Medical History / Comment(s): One daughter healthy Son(s) Additional Family Medical History / Comment(s): One son healthy Father History Unknown: Yes Family Medical History: AICD/Pacemaker, Myocardial Infarction ([place]) Additional Family Medical History / Comment(s): Schizophrenia. Per patient, his father at the age of 59 Mother History Unknown: Yes Family Medical History: No Reported History Additional Family Medical History / Comment(s): HPV General Exam Limitations: no limitations General appearance: alert, in no apparent distress Head exam: Present: atraumatic Eye exam: Present: normal appearance ENT exam: Present: normal oropharynx Neck exam: Present: normal inspection Respiratory exam: Present: normal lung sounds bilaterally Cardiovascular Exam: Present: tachycardia Expanded Peripheral pulses: 2+: Dorsalis Pedis (R), Dorsalis Pedis (L) GI/Abdominal exam: Present: soft, tenderness (Mild to moderate diffuse tenderness), normal bowel sounds. Absent: distended Extremities exam: Present: normal inspection Neurological exam: Present: alert Psychiatric exam: Present: normal affect, normal mood Skin exam: Absent: rash Course Vital Signs 08/25/16 08/25/16 08/25/16 16:41 16:51 17:53 Temperature 103.2 F H 102.3 F H Pulse Rate 140 H 134 H 116 H Respiratory 20 18 18 Rate Blood Pressure 132/76 149/89 140/75 O2 Sat by Pulse 93 L 97 95 Oximetry 08/25/16 08/25/16 18:24 19:09 Temperature 101.5 F H 99.1 F Pulse Rate 103 H Respiratory 15 Rate Blood Pressure 122/63 O2 Sat by Pulse 95 Oximetry EKG Findings - EKG Comments: EKG Findings:: Sinus tachycardia 122. WI 120. QRS 86. QT 322. QTC 458. Normal axis. Normal QRS. Normal ST-T. Medical Decision Making - Medical Decision Making Patient reexamined and updated. Case was discussed with Dr. Manzanares who does prefer patient be transferred to [facility] for continued care. Case was discussed with Dr. Hart, who will accept transfer. - Lab Data Result diagrams: 08/25/16 17:10 08/25/16 17:10 Lab Results 08/25/16 08/25/16 08/25/16 Range/Units 17:10 17:10 17:10 WBC 24.9 H (3.8-10.6) k/uL RBC 3.90 L (4.30-5.90) m/uL Hgb 10.1 L (13.0-17.5) gm/dL Hct 32.0 L (39.0-53.0) % MCV 82.0 (80.0-100.0) fL MCH 25.8 (25.0-35.0) pg MCHC 31.5 (31.0-37.0) g/dL RDW 15.2 (11.5-15.5) % Plt Count 531 H (150-450) k/uL Neutrophils % 81 % Lymphocytes % 9 % Monocytes % 7 % Eosinophils % 1 % Basophils % 0 % Neutrophils # 20.1 H (1.3-7.7) k/uL Lymphocytes # 2.4 (1.0-4.8) k/uL Monocytes # 1.8 H (0-1.0) k/uL Eosinophils # 0.3 (0-0.7) k/uL Basophils # 0.1 (0-0.2) k/uL Manual Slide Review Performed Hypochromasia Moderate Poikilocytosis (manual Present PT (9.0-12.0) sec INR (<1.1) APTT (22.0-30.0) sec Sodium 130 L (137-145) mmol/L Potassium 4.0 (3.5-5.1) mmol/L Chloride 95 L (98-107) mmol/L Carbon Dioxide 23 (22-30) mmol/L Anion Gap 12 mmol/L BUN 6 L (9-20) mg/dL Creatinine 0.62 L (0.66-1.25) mg/dL Est GFR (MDRD) Af Amer >60 (>60 ml/min/1.73 sqM) Est GFR (MDRD) Non-Af >60 (>60 ml/min/1.73 sqM) Glucose 121 H (74-99) mg/dL Plasma Lactic Acid Mynro 1.8 (0.7-2.0) mmol/L Calcium 8.8 (8.4-10.2) mg/dL Total Bilirubin 0.5 (0.2-1.3) mg/dL AST 36 (17-59) U/L ALT 27 (21-72) U/L Alkaline Phosphatase 145 H (38-126) U/L Total Protein 7.0 (6.3-8.2) g/dL Albumin 3.3 L (3.5-5.0) g/dL Amylase 110 (30-110) U/L Lipase 346 H (23-300) U/L Urine Color Urine Appearance (Clear) Urine pH (5.0-8.0) Ur Specific [place] (1.001-1.035) Urine Protein (Negative) Urine Glucose (UA) (Negative) Urine Ketones (Negative) Urine Blood (Negative) Urine Nitrite (Negative) Urine Bilirubin (Negative) Urine Urobilinogen (<2.0) mg/dL Ur Leukocyte Esterase (Negative) Urine RBC (0-5) /hpf Urine WBC (0-5) /hpf 08/25/16 08/25/16 Range/Units 17:10 18:00 WBC (3.8-10.6) k/uL RBC (4.30-5.90) m/uL Hgb (13.0-17.5) gm/dL Hct (39.0-53.0) % MCV (80.0-100.0) fL MCH (25.0-35.0) pg MCHC (31.0-37.0) g/dL RDW (11.5-15.5) % Plt Count (150-450) k/uL Neutrophils % % Lymphocytes % % Monocytes % % Eosinophils % % Basophils % % Neutrophils # (1.3-7.7) k/uL Lymphocytes # (1.0-4.8) k/uL Monocytes # (0-1.0) k/uL Eosinophils # (0-0.7) k/uL Basophils # (0-0.2) k/uL Manual Slide Review Hypochromasia Poikilocytosis (manual PT 13.1 H (9.0-12.0) sec INR 1.3 (<1.1) APTT 25.8 (22.0-30.0) sec Sodium (137-145) mmol/L Potassium (3.5-5.1) mmol/L Chloride (98-107) mmol/L Carbon Dioxide (22-30) mmol/L Anion Gap mmol/L BUN (9-20) mg/dL Creatinine (0.66-1.25) mg/dL Est GFR (MDRD) Af Amer (>60 ml/min/1.73 sqM) Est GFR (MDRD) Non-Af (>60 ml/min/1.73 sqM) Glucose (74-99) mg/dL Plasma Lactic Acid Mynor (0.7-2.0) mmol/L Calcium (8.4-10.2) mg/dL Total Bilirubin (0.2-1.3) mg/dL AST (17-59) U/L ALT (21-72) U/L Alkaline Phosphatase (38-126) U/L Total Protein (6.3-8.2) g/dL Albumin (3.5-5.0) g/dL Amylase (30-110) U/L Lipase (23-300) U/L Urine Color Yellow Urine Appearance Clear (Clear) Urine pH 6.5 (5.0-8.0) Ur Specific [place] 1.025 (1.001-1.035) Urine Protein 1+ H (Negative) Urine Glucose (UA) Negative (Negative) Urine Ketones Negative (Negative) Urine Blood Negative (Negative) Urine Nitrite Negative (Negative) Urine Bilirubin Negative (Negative) Urine Urobilinogen <2.0 (<2.0) mg/dL Ur Leukocyte Esterase Negative (Negative) Urine RBC 1 (0-5) /hpf Urine WBC 2 (0-5) /hpf - Radiology Data Radiology results: report reviewed (Computed tomography scan of the abdomen pelvis shows severe acute pancreatitis remains present. Inflammation remained stable. Changed catheter redemonstrated. Collection may be slightly smaller. No new fluid collections identified.) Disposition Clinical Impression: Acute pancreatitis with infected necrosis Disposition: OTHER INSTITUTION NOT DEFINED Condition: Serious Time of Disposition: 19:17 - Out of Hospital Transfer - Req. Specs Out of Hospital Transfer - Requested Specifics: Other Emergency Center
[2016-08-25] MEDS: SODIUM CHLORIDE 0.9% 500 ML IV SCH ×2 (17:08→17:53)
[2016-08-25 17:34] LABS: INR 1.3 (<1.1); Prothrombin Time 13.1 sec (9.0-12.0)
[2016-08-25 17:35] LABS: Basophils # (A) 0.1 k/uL (0-0.2); Basophils % (A) 0 %; CHCM 31.7; Eosinophils # (A) 0.3 k/uL (0-0.7); Eosinophils % (A) 1 %; HDW 3.22; HGB 10.1 gm/dL (13.0-17.5); Hypochromasia Moderate; Luc # (Auto) 0.32; Luc % (Auto) 1; Lymphocytes # (A) 2.4 k/uL (1.0-4.8); Lymphocytes % (A) 9 %; MCH 25.8 pg (25.0-35.0); MCHC 31.5 g/dL (31.0-37.0); Mean Platelet Volume 7.2; Monocytes # (A) 1.8 k/uL (0-1.0); Monocytes % (A) 7 %; Neutrophils # (A) 20.1 k/uL (1.3-7.7); Neutrophils % (A) 81 %; RDW 15.2 % (11.5-15.5); WBC 24.9 k/uL (3.8-10.6); WBC (Perox) 23.41
[2016-08-25 17:38] LABS: ALT 27 U/L (21-72); AST 36 U/L (17-59); Alkaline Phosphatase 145 U/L (38-126); Amylase 110 U/L (30-110); Anion Gap 12 mmol/L; Blood Urea Nitrogen 6 mg/dL (9-20); Calcium 8.8 mg/dL (8.4-10.2); Carbon Dioxide 23 mmol/L (22-30); Chloride 95 mmol/L (98-107); Glucose 121 mg/dL (74-99); Non-African American GFR(MDRD) >60 (>60 ml/min/1.73 sqM); Sodium 130 mmol/L (137-145); Total Bilirubin 0.5 mg/dL (0.2-1.3)
[2016-08-25 17:45] LABS: Manual Review Performed
[2016-08-25 17:47] LABS: Partial Thromboplastin Time 25.8 sec (22.0-30.0)
--- NOTE | 2016-08-25 18:00 | CT ---
EXAMINATION TYPE: CT abdomen pelvis w con DATE OF EXAM: 08/25/2016 5:43 PM COMPARISON: CT abdomen pelvis less than 10 days ago. HISTORY: Fever and abdominal pain. hx of pancreatic drain tube. CT DLP: 1947 mGycm, Automated Exposure Control for Dose Reduction was Utilized. CONTRAST: CT scan of the abdomen and pelvis is performed without oral and with IV Contrast, patient injected wi th 100 mL of Omnipaque 300. FINDINGS: LUNG BASES: Calcified nodule right lung base anteriorly is redemonstrated. LIVER/GB: Liver remains diffusely low dense consistent with fatty infiltration. PANCREAS: There is persistent abnormal thick-walled complex fluid collection anterior to the pancreas with pigtail catheter along the left lateral margin this measures approximately 7.4 x 4.2 cm on axia l image 39. Fortine slightly smaller in size versus prior study axial image 39 measuring 7.9 x 4.5 cm. T here is surrounding ill-defined fluid and fat stranding that remains present. Heterogeneous enhanceme nt of pancreas is again seen. No areas of nonenhancement are clearly identified. Small focal 1.5 cm f luid collection posterior superior to this on axial image 30 is unchanged from prior exam. Ill-define d fluid extends into the left paracolic and infracolic gutter similar to prior study. SPLEEN: Splenomegaly is redemonstrated measuring 14.0 cm on long axis on axial image 31 felt stable. ADRENALS: No significant abnormality is seen. KIDNEYS: There is symmetric cortical medullary uptake from both kidneys, some delayed excretion from left kidney is felt present on current study. BOWEL: Persistent 1.4 cm there are focus in pancreatic groove likely reflects duodenal diverticulum o n axial image 39. Evaluation of bowel is suboptimal secondary to lack of enteric contrast. No suspici ous small or large bowel dilatation is seen. PROSTATE/SEMINAL VESICLES: No gross abnormality seen. LYMPH NODES: No greater than 1cm abdominal or pelvic lymph nodes are appreciated. OSSEOUS STRUCTURES: No significant abnormality is seen. OTHER: Small moderate free fluid in pelvis is slightly diminished in size as prior study on axial luis ge 91. IMPRESSION: CT findings consistent with a fairly severe acute pancreatitis remain present. Degree of inflammatory change felt stable. Drainage catheter in the adjacent anterior thick walled fluid collection or pseudocyst is redemonstra buddy, this collection is slightly smaller in size. No areas of nonenhancement or necrosis clearly seen . Second smaller pseudocyst is stable. No new fluid collections clearly identified.
[2016-08-25 18:15] LABS: Appearance,Urine Clear (Clear); Bilirubin,Urine Negative (Negative); Glucose,Urine (UA) Negative (Negative); Ketones,Urine Negative (Negative); Leukocyte Esterase,Urine Negative (Negative); Nitrite,Urine Negative (Negative); PH, Urine 6.5 (5.0-8.0); Particle Count 1477; Protein,Urine 1+ (Negative); RBC,Urine 1 /hpf (0-5); Specific Gravity,Urine 1.025 (1.001-1.035); UA Billing (MACRO vs. MICRO) MICRO; Urobilinogen,Urine <2.0 mg/dL (<2.0); WBC,Urine 2 /hpf (0-5)
[2016-08-25 18:25] VITALS: BP 122/63; PULSE 103; RESP 15
--- NOTE | 2016-08-25 18:27 | XR ---
EXAMINATION TYPE: XR chest 2V DATE OF EXAM: 08/25/2016 6:19 PM COMPARISON: Chest x-ray from 03/15/2017. HISTORY: Fever and nausea today. Known active acute pancreatitis and complications. TECHNIQUE: Front al and lateral views of the chest are obtained. FINDINGS: There is no focal air space opacity, pleural effusion, or pneumothorax seen. The cardiac silhouette size is within normal limits. The osseous structures are intact. IMPRESSION: No acute cardiopulmonary process. No significant change from prior.
[2016-08-25 19:09] VITALS: TEMP 99.1
[2016-08-25] MEDS ORDERED: PIPERACILLIN-TAZOBACTAM 3.375 GM in DEXTROSE/WATER 1 50ML.BAG IVPB STA (19:20)
[2016-08-25] MEDS ORDERED: SODIUM CHLORIDE 0.9% 1,000 ML IV STA ×2 (19:32)
[2016-08-25] MEDS ORDERED: SODIUM CHLORIDE 0.9% 60 ML IV STA (19:32)
== END 2016-08-25 20:25 | disposition other institution (70) ==
LOC: EC 16:35
DX: K85.92 Acute pancreatitis with infected necrosis, unspecified (principal); R50.9 Fever, unspecified; J44.9 Chronic obstructive pulmonary disease, unspecified; G40.909 Epilepsy, unspecified, not intractable, without status epilepticus; F31.9 Bipolar disorder, unspecified; F41.9 Anxiety disorder, unspecified; F17.200 Nicotine dependence, unspecified, uncomplicated; Z79.899 Other long term (current) drug therapy; Z88.5 Allergy status to narcotic agent; Z91.011 Allergy to milk products; Z88.8 Allergy status to other drugs, medicaments and biological substances
CPT/HCPCS: 36415; 93005; 80053; 82150; 83605; 83690; 85025; 85610; 85730; 81001; 87040; 87086; 71020; 74177; 99285; 96365; 96367; 96375; 96361 ×2; J1170; J2543; Q9967; J0131

== ENCOUNTER 2016-09-14 18:34 | Emergency (ER) | payer OTHER ==
[2016-09-14 19:27] VITALS: TEMP 98.2
[2016-09-14] MEDS ORDERED: HYDROmorphone 1 MG/ML 1 ML SYRINGE IM STA (19:59)
[2016-09-14] MEDS ORDERED: ONDANSETRON ODT 4 MG TAB PO STA (20:01)
--- NOTE | 2016-09-14 20:09 | ED ---
Abdominal Pain HPI - General Chief Complaint: Abdominal Pain Stated Complaint: ABDOMINAL PAIN Time Seen by Provider: 09/14/16 19:43 Source: patient Mode of arrival: ambulatory Limitations: no limitations - History of Present Illness Initial Comments: This 41-year-old white male presents with a complaint of some abdominal pain. He does have a history of pancreatitis. He actually said some necrotizing pancreatitis. He is unsure of the cause of his pancreatitis but apparently does have some gallstones there may have been a stone caught in a duct at one time. He has been dealing with this through [facility]. He was seen here earlier in the month and transferred to [facility]. They watch him for 3 nights. He states that they did discharge him on oxycodone but he ran out 4 days ago. He states that he is having significant pain. His only issue is that of pain control and nausea at this time. He states that otherwise his symptoms are fairly consistent with previous and that he feels like he is withdrawing from the pain medications. He has had some moderate nausea. He denies any fever or diarrhea. He does have a drain in place that is apparently in or around the pancreas coming out of the left abdomen. This is been draining quite well. He essentially is here for pain control. He states that he is unable to get ahold of his surgeon and [place]. His family doctor will not prescribe him any pain medications. No other complaints or modifying factors. Old records are reviewed and it does appear that he's had problems with pain medications in the past. - Related Data Home Medications Medication Instructions Recorded Confirmed Mirtazapine [Remeron] 45 mg PO HS 07/01/16 09/14/16 OLANZapine [ZyPREXA] 5 mg PO HS 07/01/16 09/14/16 oxyCODONE HCL 10 mg PO Q6H PRN 08/04/16 09/14/16 Omeprazole 40 mg PO DAILY 08/25/16 09/14/16 Previous Rx's Medication Instructions Recorded Hydrocodone/Acetaminophen [Dagmar 1 - 2 each PO Q4HR PRN #20 tab 09/14/16 5-325] Ondansetron [Zofran ODT] 8 mg PO Q8HR PRN #12 tab 09/14/16 Allergies Allergy/AdvReac Type Severity Reaction Status Date / Time codeine Allergy Swelling Verified 09/14/16 19:41 furosemide [From Lasix] Allergy Rash/Hives Verified 09/14/16 19:41 haloperidol [From Haldol] Allergy Unknown Verified 09/14/16 19:41 haloperidol lactate Allergy Unknown Verified 09/14/16 19:41 [From Haldol] prochlorperazine edisylate Allergy Swelling Verified 09/14/16 19:41 [From Compazine] prochlorperazine maleate Allergy Swelling Verified 09/14/16 19:41 [From Compazine] milk AdvReac Severe Diarrhea Verified 09/14/16 19:41 Milk Containing Products AdvReac Severe Diarrhea Verified 09/14/16 19:41 Review of Systems ROS Statement: Those systems with pertinent positive or pertinent negative responses have been documented in the HPI. ROS Other: All systems not noted in ROS Statement are negative. Past Medical History Past Medical History: COPD, Seizure Disorder Additional Past Medical History / Comment(s): History of seizures-per patient, his last seizure was in 2011, Hepatitis C, Degenerative disc disease in back, possible arthritis in knees, hips and arms. , pancreatitis History of Any Multi-Drug Resistant Organisms: None Reported Past Surgical History: Appendectomy Additional Past Surgical History / Comment(s): Appendectomy-1996, eye surgery- 1998, drain for pancreatitis Past Anesthesia/Blood Transfusion Reactions: No Reported Reaction Past Psychological History: Anxiety, Bipolar, Depression Smoking Status: Current every day smoker Past Alcohol Use History: None Reported Additional Past Alcohol Use History / Comment(s): Patient reports he drinks approximately 4 times a year-last drink per patient was this passed wednesday. 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 pt states that he is buying them off the street - Past Family History Brother(s) Additional Family Medical History / Comment(s): Chronic alcoholism Sister(s) Additional Family Medical History / Comment(s): Chronic alcoholism Daughter(s) Additional Family Medical History / Comment(s): One daughter healthy Son(s) Additional Family Medical History / Comment(s): One son healthy Father History Unknown: Yes Family Medical History: AICD/Pacemaker, Myocardial Infarction ([place]) Additional Family Medical History / Comment(s): Schizophrenia. Per patient, his father at the age of 59 Mother History Unknown: Yes Family Medical History: No Reported History Additional Family Medical History / Comment(s): HPV General Exam - General Exam Comments Initial Comments: GENERAL: The patient is well nourished and well hydrated. VITAL SIGNS: Heart rate, blood pressure, respiratory rate reviewed as recorded in nurse's notes. EYES: Pupils are round and reactive. Extraocular movements are intact. No conjunctival / lid redness or swelling. ENT: No external evidence of injury, swelling, or ecchymosis. Airway is patent. Throat is clear. NECK: Nontender. No swelling or evidence of injury. No subcutaneous emphysema. Trachea is midline. No thyroid mass. HEART: Regular rate and rhythm. Good peripheral pulses. LUNGS/CHEST: Breath sounds clear and equal bilaterally. No rales, rhonchi, or wheezes. No ecchymosis, subcutaneous emphysema, or tenderness. ABDOMEN: There is mild tenderness present in the mid abdomen as well as the left upper quadrant. There is a drain coming out of the left lateral upper abdomen that appears to be draining well. No palpable masses or organomegaly. No peritoneal signs. No abdominal wall swelling or ecchymosis. EXTREMITIES: No extremity tenderness. Normal muscle tone and function. No thoracolumbar tenderness. NEUROLOGIC: Sensation is grossly intact. Cranial nerve exam reveals face is symmetrical, tongue is midline, speech is clear. SKIN: No abrasions or ecchymosis is noted. No induration or masses noted. PSYCHIATRIC: Alert and oriented. Appropriate behavior and judgment. Limitations: no limitations Course Vital Signs 09/14/16 09/14/16 18:45 19:26 Temperature 98.7 F 98.2 F Pulse Rate 121 H 113 H Respiratory 18 14 Rate Blood Pressure 139/83 144/79 O2 Sat by Pulse 97 98 Oximetry Medical Decision Making - Medical Decision Making The patient was seen and examined. Old records were reviewed. He was offered workup in regard to his pancreatitis but states that he has been through a thorough workup in the past. His symptoms are quite stable at this time but he is essentially here for pain control. He does not want any further workup at this time. He states that he has an appointment with his surgeon out of [facility] in 4 days and is looking to obtain pain and nausea control until that time. He is given Dilaudid 1 mg IM as well as 8 mg of Zofran oral dissolving tablet. It is felt that he stable for discharge and close follow-up. He does understand that no further narcotics will be dispensed through the emergency department for his condition that he should obtain further refills through his physician or specialist. Disposition Clinical Impression: Abdominal pain, Chronic pain, Pancreatitis, Nausea Disposition: HOME SELF-CARE Condition: Good Instructions: Abdominal Pain (ED), Acute Nausea and Vomiting (ED), Pancreatitis (ED) Prescriptions: Hydrocodone/Acetaminophen [Dagmar 5-325] 1 - 2 each PO Q4HR PRN #20 tab PRN Reason: Pain Ondansetron [Zofran ODT] 8 mg PO Q8HR PRN #12 tab PRN Reason: Nausea Referrals: Hilton Manzanares MD [Primary Care Provider] - 1-2 days Time of Disposition: 20:07
[2016-09-14 20:33] VITALS: BP 124/86; PULSE 100; RESP 18
== END 2016-09-14 20:58 | disposition home or self-care (01) ==
LOC: EC 18:34
DX: G89.29 Other chronic pain (principal); R10.9 Unspecified abdominal pain; K85.90 Acute pancreatitis without necrosis or infection, unspecified; F32.9 Major depressive disorder, single episode, unspecified; F17.200 Nicotine dependence, unspecified, uncomplicated; Z88.5 Allergy status to narcotic agent; Z88.8 Allergy status to other drugs, medicaments and biological substances; Z91.011 Allergy to milk products; Z90.49 Acquired absence of other specified parts of digestive tract; Z79.899 Other long term (current) drug therapy
CPT/HCPCS: 99284; 96372; J1170

== ENCOUNTER 2016-09-20 15:38 | Emergency (ER) | payer OTHER ==
[2016-09-20] MEDS ORDERED: IOHEXOL 350 MG/ML 25 ML BOTTLE (ORAL USE) PO PRN (16:26)
[2016-09-20] MEDS ORDERED: ONDANSETRON 4 MG/2 ML VIAL IVP STA (16:33)
[2016-09-20] MEDS ORDERED: HYDROmorphone 1 MG/ML 1 ML SYRINGE IVP STA ×2 (16:33→18:08)
[2016-09-20] MEDS ORDERED: SODIUM CHLORIDE 0.9% 500 ML IV STA ×2 (16:33→18:08)
--- NOTE | 2016-09-20 16:43 | ED ---
General Adult HPI - General Chief complaint: Abdominal Pain Stated complaint: Blood in pancreatic bag Time Seen by Provider: 09/20/16 15:59 Source: patient, RN notes reviewed, old records reviewed Mode of arrival: ambulatory Limitations: no limitations - History of Present Illness Initial comments: Chief complaint history of present illness a 41-year-old male with a history of chronic pancreatitis. The patient's been following up with [facility] for the last year or longer. Patient has had a drain in the pancreatic bed for multiple months. Today is coming because he had blood in the bag. It does not happen before. When he was last down at [facility] his surgeon stated that causes his drainage bag continued to fill this many months after placement of the bags may have had his tubes erode into the stomach. When he developed bloodhad to come in to get this checked out. He also has a fever of 100.5 and chronic pain in the general area of the pancreas. - Related Data Home Medications Medication Instructions Recorded Confirmed Mirtazapine [Remeron] 45 mg PO HS 07/01/16 09/14/16 OLANZapine [ZyPREXA] 5 mg PO HS 07/01/16 09/14/16 oxyCODONE HCL 10 mg PO Q6H PRN 08/04/16 09/14/16 Omeprazole 40 mg PO DAILY 08/25/16 09/14/16 Previous Rx's Medication Instructions Recorded Hydrocodone/Acetaminophen [[place] 1 - 2 each PO Q4HR PRN #20 tab 09/14/16 5-325] Ondansetron [Zofran ODT] 8 mg PO Q8HR PRN #12 tab 09/14/16 Sulfamethox-Tmp 800-160Mg [Bactrim 1 each PO Q12HR #20 tab 09/20/16 DS 800-160 mg] metroNIDAZOLE [Flagyl] 500 mg PO QID #40 tab 09/20/16 Allergies Allergy/AdvReac Type Severity Reaction Status Date / Time codeine Allergy Swelling Verified 09/20/16 15:56 furosemide [From Lasix] Allergy Rash/Hives Verified 09/20/16 15:56 haloperidol [From Haldol] Allergy Unknown Verified 09/20/16 15:56 haloperidol lactate Allergy Unknown Verified 09/20/16 15:56 [From Haldol] prochlorperazine edisylate Allergy Swelling Verified 09/20/16 15:56 [From Compazine] prochlorperazine maleate Allergy Swelling Verified 09/20/16 15:56 [From Compazine] milk AdvReac Severe Diarrhea Verified 09/20/16 15:56 Milk Containing Products AdvReac Severe Diarrhea Verified 09/20/16 15:56 Review of Systems ROS Statement: Those systems with pertinent positive or pertinent negative responses have been documented in the HPI. review of systems. No headache or visual acuity changes denies any nausea vomiting. His chronic pain pancreatic area drains 600 ML's of fluid into his bag which he drains daily. Has continued to drain 600 for months. It was proposed to drain be removed because the CAT scan showed resolution of problems in the pancreatic bed but because a surgeon stated he continues to have 600 ML' s of fluid out of it might be stomach contents because possible the tube had eroded into the stomach. All systems reviewed.Past medical problems COPD the patient smokes seizures to his use of narcotics in the past and chronic alcohol issues. On last visit he stated he was drinking last month. Denies it now. Surgeries appendectomy. He' s had tubes placed in his pancreatic bed for multiple months. Family history noncontributory patient has multiple ALLERGIES as listed. ROS Other: All systems not noted in ROS Statement are negative. Past Medical History Past Medical History: COPD, Seizure Disorder Additional Past Medical History / Comment(s): History of seizures-per patient, his last seizure was in 2011, Hepatitis C, Degenerative disc disease in back, possible arthritis in knees, hips and arms. , pancreatitis History of Any Multi-Drug Resistant Organisms: None Reported Past Surgical History: Appendectomy Additional Past Surgical History / Comment(s): Appendectomy-1996, eye surgery- 1998, drain for pancreatitis Past Anesthesia/Blood Transfusion Reactions: No Reported Reaction Past Psychological History: Anxiety, Bipolar, Depression Smoking Status: Current every day smoker Past Alcohol Use History: None Reported Additional Past Alcohol Use History / Comment(s): Patient reports he drinks approximately 4 times a year-last drink per patient was this passed wednesday. 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 pt states that he is buying them off the street - Past Family History Brother(s) Additional Family Medical History / Comment(s): Chronic alcoholism Sister(s) Additional Family Medical History / Comment(s): Chronic alcoholism Daughter(s) Additional Family Medical History / Comment(s): One daughter healthy Son(s) Additional Family Medical History / Comment(s): One son healthy Father History Unknown: Yes Family Medical History: AICD/Pacemaker, Myocardial Infarction ([place]) Additional Family Medical History / Comment(s): Schizophrenia. Per patient, his father at the age of 59 Mother History Unknown: Yes Family Medical History: No Reported History Additional Family Medical History / Comment(s): HPV General Exam - General Exam Comments Initial Comments: General: The patient is awake and alert, which are connected tubes had delay in the pancreatic bed. A possibility includes erosion of the tube into the stomach. Vital signs temp 100.5 pulse 123 respiratory rate 20 pulse ox 90% room air blood pressure 140/87 Eye: Pupils are equal, round and reactive to light, extra-ocular movements are intact ; there is normal conjunctiva bilaterally. No signs of icterus. Ears, nose, mouth and throat: There are moist mucous membranes and no oral lesions. Neck: The neck is supple, there is no tenderness Cardiovascular: tachycardic heart rate, 123 No murmur, rub or gallop is appreciated. Respiratory: Lungs are clear to auscultation, respirations are non-labored, breath sounds are equal. No wheezes, stridor, rales, or rhonchi. Gastrointestinal: chronic pain from the pancreatic area through with the drains on exiting the left side of the abdomen. Active bowel sounds. Back: There is no tenderness to palpation in the midline. There is no obvious deformity. Musculoskeletal: Normal ROM, no tenderness, There is no pedal edema. There is no calf tenderness or swelling. Sensation intact. Neurological: no complaint of any neuro deficits. Skin: no skin rashes Limitations: no limitations Course Vital Signs 09/20/16 09/20/16 15:56 16:42 Temperature 100.5 F H 99.0 F Pulse Rate 123 H 114 H Respiratory 20 16 Rate Blood Pressure 148/87 140/89 O2 Sat by Pulse 98 99 Oximetry Medical Decision Making - Medical Decision Making CT of the abdomen was done without contrast for evaluation of whether or not the pancreatic draining tubes had eroded into the stomach. Radiologist's impression is there is a drainage catheter looped on the anterior aspect of the body of the pancreas. There is mild inflammatory changes around the pancreas. There is a complex air and fluid collection on the anterior aspect of the pancreas on the CAT scan of 09-09 and is essentially cleared on today's exam. There is no evidence of any new density in the abdomen since last exam. The catheter does not appear to be in contact with his stomach and there is no evidence of gastric perforation. As read by Dr. Galeas The patient presented with a serosanguineous slightly bloody discharge into the bag. He has since cleared. Patient's white count 78 hemoglobin 12 medical 39 amylase only 80 lipase slightly elevated at 372. Potassium 3.6 BUN 9 creatinine 0.8 GFR greater than 60 and a glucose 97. The patient's comfortably received IV fluids 1 dose of Dilaudid. the plan at this time as the patient be placed on Bactrim DS twice a day for 10 days was Flagyl 500 4 times a day for 10 hours. Advised to follow-up with his family physician and keep his appointment with his surgeon at [facility]. If in the meantime his condition changes he is return emergency room immediately - Lab Data Result diagrams: 09/20/16 17:00 09/20/16 17:00 Lab Results 09/20/16 09/20/16 Range/Units 17:00 17:00 WBC 17.0 H (3.8-10.6) k/uL RBC 4.65 (4.30-5.90) m/uL Hgb 12.2 L (13.0-17.5) gm/dL Hct 39.6 (39.0-53.0) % MCV 85.2 (80.0-100.0) fL MCH 26.2 (25.0-35.0) pg MCHC 30.8 L (31.0-37.0) g/dL RDW 16.6 H (11.5-15.5) % Plt Count 249 (150-450) k/uL Neutrophils % 77 % Lymphocytes % 12 % Monocytes % 5 % Eosinophils % 4 % Basophils % 0 % Neutrophils # 13.1 H (1.3-7.7) k/uL Lymphocytes # 2.0 (1.0-4.8) k/uL Monocytes # 0.9 (0-1.0) k/uL Eosinophils # 0.7 (0-0.7) k/uL Basophils # 0.1 (0-0.2) k/uL Hypochromasia Marked Anisocytosis Slight Sodium 143 (137-145) mmol/L Potassium 3.6 (3.5-5.1) mmol/L Chloride 106 (98-107) mmol/L Carbon Dioxide 25 (22-30) mmol/L Anion Gap 12 mmol/L BUN 9 (9-20) mg/dL Creatinine 0.80 (0.66-1.25) mg/dL Est GFR (MDRD) Af Amer >60 (>60 ml/min/1.73 sqM) Est GFR (MDRD) Non-Af >60 (>60 ml/min/1.73 sqM) Glucose 97 (74-99) mg/dL Calcium 9.9 (8.4-10.2) mg/dL Total Bilirubin 0.3 (0.2-1.3) mg/dL AST 62 H (17-59) U/L ALT 70 (21-72) U/L Alkaline Phosphatase 174 H (38-126) U/L Total Protein 7.7 (6.3-8.2) g/dL Albumin 4.4 (3.5-5.0) g/dL Amylase 80 (30-110) U/L Lipase 372 H (23-300) U/L Disposition Clinical Impression: Chronic pancreatitis Disposition: HOME SELF-CARE Condition: Stable Instructions: Pancreatitis (ED) Additional Instructions: Increase fluids. Continue home medications. Including Bactrim DS twice a day for 10 days and Flagyl 500 mg 4 times a day for 10 days. Follow up with your family doctor and your surgeon. Return emergency room if there are changes Prescriptions: metroNIDAZOLE [Flagyl] 500 mg PO QID #40 tab Sulfamethox-Tmp 800-160Mg [Bactrim DS 800-160 mg] 1 each PO Q12HR #20 tab Referrals: Hilton Manzanares MD [Primary Care Provider] - 1-2 days Time of Disposition: 18:22
[2016-09-20 16:50] VITALS: RESP 16
[2016-09-20 17:10] LABS: Anisocytosis Slight; Basophils # (A) 0.1 k/uL (0-0.2); Basophils % (A) 0 %; CH 25.5; CHCM 29.9; Eosinophils # (A) 0.7 k/uL (0-0.7); Eosinophils % (A) 4 %; HCT 39.6 % (39.0-53.0); HDW 2.68; HGB 12.2 gm/dL (13.0-17.5); Hypochromasia Marked; Luc # (Auto) 0.21; Luc % (Auto) 1; Lymphocytes % (A) 12 %; MCH 26.2 pg (25.0-35.0); MCHC 30.8 g/dL (31.0-37.0); MCV 85.2 fL (80.0-100.0); Mean Platelet Volume 8.3; Monocytes # (A) 0.9 k/uL (0-1.0); Monocytes % (A) 5 %; Neutrophils # (A) 13.1 k/uL (1.3-7.7); Neutrophils % (A) 77 %; RBC 4.65 m/uL (4.30-5.90); RDW 16.6 % (11.5-15.5); WBC (Perox) 15.95
[2016-09-20 17:19] LABS: ALT 70 U/L (21-72); AST 62 U/L (17-59); Alkaline Phosphatase 174 U/L (38-126); Amylase 80 U/L (30-110); Anion Gap 12 mmol/L; Blood Urea Nitrogen 9 mg/dL (9-20); Calcium 9.9 mg/dL (8.4-10.2); Carbon Dioxide 25 mmol/L (22-30); Chloride 106 mmol/L (98-107); Glucose 97 mg/dL (74-99); Non-African American GFR(MDRD) >60 (>60 ml/min/1.73 sqM); Potassium 3.6 mmol/L (3.5-5.1); Sodium 143 mmol/L (137-145); Total Bilirubin 0.3 mg/dL (0.2-1.3); Total Protein 7.7 g/dL (6.3-8.2)
--- NOTE | 2016-09-20 17:28 | CT ---
EXAMINATION TYPE: CT abdomen pelvis wo con DATE OF EXAM: 09/20/2016 5:17 PM COMPARISON: 08/25/2016 HISTORY: Patient has been having blood output from pancreatic drain x 3 hours. Questioning erosion in to stomach. CT DLP: 1070.40 mGycm Automated exposure control for dose reduction was used. TECHNIQUE: Helical acquisition of images was performed from the lung bases through the pelvis. FINDINGS: Lung bases are clear of consolidation. There is no pleural effusion. Liver spleen appear normal. Ther e is a drain on the anterior aspect of the pancreas. There is stranding around the pancreas. Gallblad lelo appears normal. Bile ducts are not dilated. There is no adrenal mass. Kidneys have normal size and contour. There is no hydronephrosis. Bladder d istends smoothly. I see no intestinal wall thickening. There are no dilated loops. I see no bony dest ructive process. IMPRESSION: THERE IS A DRAINAGE CATHETER LOOPED ON THE ANTERIOR ASPECT OF THE BODY OF THE PANCREAS. THERE IS MILD INFLAMMATORY CHANGES AROUND THE PANCREAS. THERE IS A COMPLEX AIR AND FLUID COLLECTION ON THE ANTERIO R ASPECT OF THE PANCREAS ON THE CT SCAN OF 08/25/2016 THAT IS ESSENTIALLY CLEARED ON TODAY'S EXAM. THER E IS NO EVIDENCE OF ANY NEW DENSITY IN THE ABDOMEN SINCE LAST EXAM. THE CATHETER DOES NOT APPEAR TO B E IN CONTACT WITH THE STOMACH AND THERE IS NO EVIDENCE OF GASTRIC PERFORATION.
[2016-09-20] MEDS ORDERED: SULFAMETH-TMP DS STARTER PACK 2 TAB BTL PO STA (18:19)
[2016-09-20] MEDS ORDERED: LEVOFLOXACIN 500 MG TAB PO STA (18:20)
[2016-09-20 18:48] VITALS: BP 126/82; TEMP 98.1
[2016-09-20 18:59] VITALS: PULSE 101
== END 2016-09-20 19:02 | disposition home or self-care (01) ==
LOC: EC 15:38
DX: K86.1 Other chronic pancreatitis (principal); J44.9 Chronic obstructive pulmonary disease, unspecified; G40.909 Epilepsy, unspecified, not intractable, without status epilepticus; F31.9 Bipolar disorder, unspecified; F41.9 Anxiety disorder, unspecified; F17.200 Nicotine dependence, unspecified, uncomplicated; Z79.899 Other long term (current) drug therapy; Z88.5 Allergy status to narcotic agent; Z91.011 Allergy to milk products; Z88.8 Allergy status to other drugs, medicaments and biological substances
CPT/HCPCS: 36415; 80053; 82150; 83690; 85025; 74176; 99284; 96374; 96375; 96361; J2405; J1170

== ENCOUNTER 2016-09-22 13:43 | Emergency (ER) | payer OTHER ==
[2016-09-22] MEDS ORDERED: SODIUM CHLORIDE 0.9% 1,000 ML IV STA ×2 (14:15)
[2016-09-22] MEDS ORDERED: HYDROmorphone 1 MG/ML 1 ML SYRINGE IVP STA (14:15)
[2016-09-22] MEDS ORDERED: FAMOTIDINE 20 MG/2 ML VIAL IV STA (14:17)
--- NOTE | 2016-09-22 14:24 | ED ---
Abdominal Pain HPI - General Chief Complaint: Abdominal Pain Stated Complaint: abdominal pain Time Seen by Provider: 09/22/16 14:05 Source: patient Mode of arrival: ambulatory Limitations: no limitations - History of Present Illness Initial Comments: This 41-year-old white male presents with a complaint of some abdominal pain. It is more towards his left upper quadrant in his midepigastric region. This is chronic in nature. He has a history of pancreatitis. 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 This has been in place for the last 3 months and was placed by a surgeon out of [facility]. He states that over the past 2 days he's had some bloody drainage come on out of the tube. He has approximately 500 mL per day. He denies any nausea or vomiting. He's been tolerating food and fluids well. He denies any diarrhea or constipation. He had a fever of 100.5 when he was in the ER days ago but no definite fever since. He had a computed tomography scan and laboratory analysis 2 days ago which did not show any overt significant abnormalities. The lipase was slightly increased. He has been taking oxycodone for the pain. He takes approximately 75 mg pills per day. He called his surgeon's office and they told him to come to our emergency department and potentially be transferred to [facility]. No other complaints or modifying factors. - Related Data Home Medications Medication Instructions Recorded Confirmed Mirtazapine [Remeron] 45 mg PO HS 07/01/16 09/22/16 OLANZapine [ZyPREXA] 5 mg PO HS 07/01/16 09/22/16 oxyCODONE HCL 10 mg PO Q6H PRN 08/04/16 09/22/16 Omeprazole 40 mg PO DAILY 08/25/16 09/22/16 Atorvastatin [Lipitor] 20 mg PO DAILY 09/22/16 09/22/16 Hydrocodone/Acetaminophen [[place] 1 - 2 tab PO Q4HR PRN 09/22/16 09/22/16 5-325] Lisinopril [Zestril] 5 mg PO DAILY 09/22/16 09/22/16 Sulfamethox-Tmp 800-160Mg [Bactrim 1 tab PO Q12HR 09/22/16 09/22/16 DS 800-160 mg] Previous Rx's Medication Instructions Recorded Ondansetron [Zofran ODT] 8 mg PO Q8HR PRN #12 tab 09/14/16 metroNIDAZOLE [Flagyl] 500 mg PO QID #40 tab 09/20/16 Allergies Allergy/AdvReac Type Severity Reaction Status Date / Time codeine Allergy Swelling Verified 09/22/16 14:06 furosemide [From Lasix] Allergy Rash/Hives Verified 09/22/16 14:06 haloperidol [From Haldol] Allergy Unknown Verified 09/22/16 14:06 haloperidol lactate Allergy Unknown Verified 09/22/16 14:06 [From Haldol] prochlorperazine edisylate Allergy Swelling Verified 09/22/16 14:06 [From Compazine] prochlorperazine maleate Allergy Swelling Verified 09/22/16 14:06 [From Compazine] milk AdvReac Severe Diarrhea Verified 09/22/16 14:06 Milk Containing Products AdvReac Severe Diarrhea Verified 09/22/16 14:06 Review of Systems ROS Statement: Those systems with pertinent positive or pertinent negative responses have been documented in the HPI. ROS Other: All systems not noted in ROS Statement are negative. Past Medical History Past Medical History: COPD, Seizure Disorder Additional Past Medical History / Comment(s): History of seizures-per patient, his last seizure was in 2011, Hepatitis C, Degenerative disc disease in back, possible arthritis in knees, hips and arms. , pancreatitis History of Any Multi-Drug Resistant Organisms: None Reported Past Surgical History: Appendectomy Additional Past Surgical History / Comment(s): Appendectomy-1996, eye surgery- 1998, drain for pancreatitis Past Anesthesia/Blood Transfusion Reactions: No Reported Reaction Past Psychological History: Anxiety, Bipolar, Depression Smoking Status: Current every day smoker Past Alcohol Use History: None Reported Additional Past Alcohol Use History / Comment(s): Patient reports he drinks approximately 4 times a year-last drink per patient was this passed wednesday. 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 pt states that he is buying them off the street - Past Family History Brother(s) Additional Family Medical History / Comment(s): Chronic alcoholism Sister(s) Additional Family Medical History / Comment(s): Chronic alcoholism Daughter(s) Additional Family Medical History / Comment(s): One daughter healthy Son(s) Additional Family Medical History / Comment(s): One son healthy Father History Unknown: Yes Family Medical History: AICD/Pacemaker, Myocardial Infarction ([place]) Additional Family Medical History / Comment(s): Schizophrenia. Per patient, his father at the age of 59 Mother History Unknown: Yes Family Medical History: No Reported History Additional Family Medical History / Comment(s): HPV General Exam - General Exam Comments Initial Comments: GENERAL: The patient is well nourished and well hydrated. VITAL SIGNS: Heart rate, blood pressure, respiratory rate reviewed as recorded in nurse's notes. EYES: Pupils are round and reactive. Extraocular movements are intact. No conjunctival / lid redness or swelling. ENT: No external evidence of injury, swelling, or ecchymosis. Airway is patent. Throat is clear. NECK: Nontender. No swelling or evidence of injury. No subcutaneous emphysema. Trachea is midline. No thyroid mass. HEART: Regular rate and rhythm. Good peripheral pulses. LUNGS/CHEST: Breath sounds clear and equal bilaterally. No rales, rhonchi, or wheezes. No ecchymosis, subcutaneous emphysema, or tenderness. ABDOMEN: There is some mild tenderness noted in the left upper quadrant and midepigastric region. There is a drain present in the left lateral abdomen without any drainage from around the site or evidence of any erythema. There is blood tinged drainage in the drainage system. No palpable masses or organomegaly. No peritoneal signs. No abdominal wall swelling or ecchymosis. EXTREMITIES: No extremity tenderness. Normal muscle tone and function. No thoracolumbar tenderness. NEUROLOGIC: Sensation is grossly intact. Cranial nerve exam reveals face is symmetrical, tongue is midline, speech is clear. SKIN: No abrasions or ecchymosis is noted. No induration or masses noted. PSYCHIATRIC: Alert and oriented. Appropriate behavior and judgment. Limitations: no limitations Course Vital Signs 09/22/16 09/22/16 09/22/16 13:44 14:27 15:16 Temperature 98.1 F 98.0 F 97.9 F Pulse Rate 108 H 77 88 Respiratory 20 18 18 Rate Blood Pressure 124/97 127/77 142/93 O2 Sat by Pulse 96 99 99 Oximetry Medical Decision Making - Medical Decision Making The patient was seen and examined. All diagnostics were reviewed. An IV was started and he is hydrated and received Pepcid and Dilaudid intravenously. The EKG is completed and shows a normal sinus rhythm at a rate of 89. There are no acute ST-T wave changes identified. The NE interval is 140, QRS duration is 90 , and QTC intervals 435. The acute abdominal series x-rays as does not show any acute process other than some slight right-sided atelectasis granuloma. The laboratory overall is fairly unremarkable with a hemoglobin of 12.3. The pancreatic studies are negative. Old records were reviewed from 2 days ago. Patient also was seen by myself earlier this month and these reports were reviewed. The case is discussed with Dr. Mondragon and she is agreeable with transfer. Appropriate transfer paperwork is completed. - Lab Data Result diagrams: 09/22/16 14:00 09/22/16 14:00 Lab Results 09/22/16 09/22/16 09/22/16 Range/Units 14:00 14:00 14:00 WBC 9.7 (3.8-10.6) k/uL RBC 4.71 (4.30-5.90) m/uL Hgb 12.3 L (13.0-17.5) gm/dL Hct 39.1 (39.0-53.0) % MCV 83.1 (80.0-100.0) fL MCH 26.2 (25.0-35.0) pg MCHC 31.5 (31.0-37.0) g/dL RDW 16.5 H (11.5-15.5) % Plt Count 270 (150-450) k/uL Neutrophils % 54 % Lymphocytes % 28 % Monocytes % 8 % Eosinophils % 6 % Basophils % 1 % Neutrophils # 5.2 (1.3-7.7) k/uL Lymphocytes # 2.7 (1.0-4.8) k/uL Monocytes # 0.7 (0-1.0) k/uL Eosinophils # 0.6 (0-0.7) k/uL Basophils # 0.1 (0-0.2) k/uL Hypochromasia Moderate Anisocytosis Slight PT (9.0-12.0) sec INR (<1.1) APTT (22.0-30.0) sec Sodium 143 (137-145) mmol/L Potassium 4.0 (3.5-5.1) mmol/L Chloride 107 (98-107) mmol/L Carbon Dioxide 23 (22-30) mmol/L Anion Gap 13 mmol/L BUN 7 L (9-20) mg/dL Creatinine 0.70 (0.66-1.25) mg/dL Est GFR (MDRD) Af Amer >60 (>60 ml/min/1.73 sqM) Est GFR (MDRD) Non-Af >60 (>60 ml/min/1.73 sqM) Glucose 115 H (74-99) mg/dL Plasma Lactic Acid [place] 1.5 (0.7-2.0) mmol/L Calcium 10.1 (8.4-10.2) mg/dL Total Bilirubin 0.5 (0.2-1.3) mg/dL AST 51 (17-59) U/L ALT 56 (21-72) U/L Alkaline Phosphatase 174 H (38-126) U/L Total Protein 7.7 (6.3-8.2) g/dL Albumin 4.2 (3.5-5.0) g/dL Amylase 61 (30-110) U/L Lipase 101 (23-300) U/L Urine Color Urine Appearance (Clear) Urine pH (5.0-8.0) Ur Specific [place] (1.001-1.035) Urine Protein (Negative) Urine Glucose (UA) (Negative) Urine Ketones (Negative) Urine Blood (Negative) Urine Nitrite (Negative) Urine Bilirubin (Negative) Urine Urobilinogen (<2.0) mg/dL Ur Leukocyte Esterase (Negative) Urine RBC (0-5) /hpf Urine WBC (0-5) /hpf Ur Squamous Epith Cells (0-4) /hpf Urine Mucus (None) /hpf Blood Type Blood Type Recheck Antibody Screen Spec Expiration Date 09/22/16 09/22/16 09/22/16 Range/Units 14:00 14:00 14:43 WBC (3.8-10.6) k/uL RBC (4.30-5.90) m/uL Hgb (13.0-17.5) gm/dL Hct (39.0-53.0) % MCV (80.0-100.0) fL MCH (25.0-35.0) pg MCHC (31.0-37.0) g/dL RDW (11.5-15.5) % Plt Count (150-450) k/uL Neutrophils % % Lymphocytes % % Monocytes % % Eosinophils % % Basophils % % Neutrophils # (1.3-7.7) k/uL Lymphocytes # (1.0-4.8) k/uL Monocytes # (0-1.0) k/uL Eosinophils # (0-0.7) k/uL Basophils # (0-0.2) k/uL Hypochromasia Anisocytosis PT 11.4 (9.0-12.0) sec INR 1.1 (<1.1) APTT 24.1 (22.0-30.0) sec Sodium (137-145) mmol/L Potassium (3.5-5.1) mmol/L Chloride (98-107) mmol/L Carbon Dioxide (22-30) mmol/L Anion Gap mmol/L BUN (9-20) mg/dL Creatinine (0.66-1.25) mg/dL Est GFR (MDRD) Af Amer (>60 ml/min/1.73 sqM) Est GFR (MDRD) Non-Af (>60 ml/min/1.73 sqM) Glucose (74-99) mg/dL Plasma Lactic Acid [place] (0.7-2.0) mmol/L Calcium (8.4-10.2) mg/dL Total Bilirubin (0.2-1.3) mg/dL AST (17-59) U/L ALT (21-72) U/L Alkaline Phosphatase (38-126) U/L Total Protein (6.3-8.2) g/dL Albumin (3.5-5.0) g/dL Amylase (30-110) U/L Lipase (23-300) U/L Urine Color Yellow Urine Appearance Cloudy (Clear) Urine pH 6.0 (5.0-8.0) Ur Specific [place] 1.016 (1.001-1.035) Urine Protein 1+ H (Negative) Urine Glucose (UA) Negative (Negative) Urine Ketones Negative (Negative) Urine Blood Negative (Negative) Urine Nitrite Negative (Negative) Urine Bilirubin Negative (Negative) Urine Urobilinogen <2.0 (<2.0) mg/dL Ur Leukocyte Esterase Negative (Negative) Urine RBC 1 (0-5) /hpf Urine WBC 1 (0-5) /hpf Ur Squamous Epith Cells <1 (0-4) /hpf Urine Mucus Many H (None) /hpf Blood Type O Positive Blood Type Recheck O Pos Antibody Screen NEGATIVE Spec Expiration Date 09/25/2016 - 2299 Disposition Clinical Impression: Acute abdominal pain, Chronic abdominal pain, Chronic pancreatitis Disposition: OTHER INSTITUTION NOT DEFINED Condition: Fair Time of Disposition: 16:24 - Out of Hospital Transfer - Req. Specs Out of Hospital Transfer - Requested Specifics: Other Emergency Center ([facility])
[2016-09-22 14:28] VITALS: RESP 18
[2016-09-22 14:31] LABS: Anisocytosis Slight; Basophils # (A) 0.1 k/uL (0-0.2); Basophils % (A) 1 %; CH 25.4; CHCM 30.6; Eosinophils # (A) 0.6 k/uL (0-0.7); Eosinophils % (A) 6 %; HCT 39.1 % (39.0-53.0); HDW 2.75; HGB 12.3 gm/dL (13.0-17.5); Hypochromasia Moderate; Luc # (Auto) 0.32; Luc % (Auto) 3; Lymphocytes # (A) 2.7 k/uL (1.0-4.8); Lymphocytes % (A) 28 %; MCH 26.2 pg (25.0-35.0); MCHC 31.5 g/dL (31.0-37.0); MCV 83.1 fL (80.0-100.0); Mean Platelet Volume 8.6; Monocytes # (A) 0.7 k/uL (0-1.0); Monocytes % (A) 8 %; Neutrophils # (A) 5.2 k/uL (1.3-7.7); Neutrophils % (A) 54 %; RBC 4.71 m/uL (4.30-5.90); RDW 16.5 % (11.5-15.5); WBC 9.7 k/uL (3.8-10.6); WBC (Perox) 9.78
[2016-09-22 14:37] LABS: Partial Thromboplastin Time 24.1 sec (22.0-30.0)
[2016-09-22 14:41] LABS: INR 1.1 (<1.1); Prothrombin Time 11.4 sec (9.0-12.0)
[2016-09-22 14:42] LABS: ALT 56 U/L (21-72); AST 51 U/L (17-59); Alkaline Phosphatase 174 U/L (38-126); Amylase 61 U/L (30-110); Anion Gap 13 mmol/L; Blood Urea Nitrogen 7 mg/dL (9-20); Calcium 10.1 mg/dL (8.4-10.2); Carbon Dioxide 23 mmol/L (22-30); Chloride 107 mmol/L (98-107); Glucose 115 mg/dL (74-99); Non-African American GFR(MDRD) >60 (>60 ml/min/1.73 sqM); Sodium 143 mmol/L (137-145); Total Bilirubin 0.5 mg/dL (0.2-1.3); Total Protein 7.7 g/dL (6.3-8.2)
--- NOTE | 2016-09-22 14:57 | XR ---
EXAMINATION TYPE: XR abdomen acute w cxr DATE OF EXAM: 09/22/2016 2:46 PM COMPARISON: Chest x-ray 08/25/2016, abdomen study 08/11/2012. HISTORY: Abdomen pain TECHNIQUE: Abdomen examination supine and upright views the abdomen and supplemented with a frontal c hest. FINDINGS: There is some scarring at the right base which is stable. Lung joyce are otherwise clear. No free air is present Catheter enters on the left with the tip in the mid abdomen. Normal colonic bowel gas is present. No suspicious air-fluid levels or differential air-fluid levels are present. No free air is present. IMPRESSION: 1. Drainage catheter on the left. 2. No acute abdominal process. 3. Atelectasis right lower lobe with adjacent granuloma
[2016-09-22 15:03] LABS: Appearance,Urine Cloudy (Clear); Bilirubin,Urine Negative (Negative); Glucose,Urine (UA) Negative (Negative); Ketones,Urine Negative (Negative); Leukocyte Esterase,Urine Negative (Negative); Mucus,Urine Many /hpf; Nitrite,Urine Negative (Negative); Particle Count 5186; Protein,Urine 1+ (Negative); RBC,Urine 1 /hpf (0-5); Specific Gravity,Urine 1.016 (1.001-1.035); Squamous Epithelial Cell,Urine <1 /hpf (0-4); UA Billing (MACRO vs. MICRO) MICRO; Urobilinogen,Urine <2.0 mg/dL (<2.0); WBC,Urine 1 /hpf (0-5)
[2016-09-22 16:41] VITALS: BP 119/79; PULSE 85; TEMP 97
== END 2016-09-22 17:16 | disposition short-term general hospital (02) ==
LOC: EC 13:43
DX: K86.1 Other chronic pancreatitis (principal); F31.9 Bipolar disorder, unspecified; F41.9 Anxiety disorder, unspecified; F17.200 Nicotine dependence, unspecified, uncomplicated; Z79.899 Other long term (current) drug therapy; Z88.5 Allergy status to narcotic agent; Z88.8 Allergy status to other drugs, medicaments and biological substances; Z91.011 Allergy to milk products; Z90.49 Acquired absence of other specified parts of digestive tract
CPT/HCPCS: 99285; 96374; 96375; 96361; 36415; 93005; 86900; 86901; 80053; 82150; 83605; 83690; 85025; 85610; 85730; 86850; 81001; 74022; J1170

== ENCOUNTER 2016-11-23 14:22 | Inpatient (IN) | payer OTHER ==
[2016-11-23] MEDS ORDERED: ONDANSETRON 4 MG/2 ML VIAL IVP STA (17:09)
[2016-11-23] MEDS ORDERED: HYDROmorphone 1 MG/ML 1 ML SYRINGE IVP STA ×2 (17:09→18:52)
[2016-11-23] MEDS ORDERED: SODIUM CHLORIDE 0.9% 1,000 ML IV ONE (17:09)
[2016-11-23 17:36] LABS: Anisocytosis Slight; Appearance,Urine Clear (Clear); Basophils # (A) 0.1 k/uL (0-0.2); Basophils % (A) 1 %; Bilirubin,Urine Negative (Negative); CH 26.5; CHCM 32.7; Eosinophils # (A) 0.7 k/uL (0-0.7); Eosinophils % (A) 6 %; Glucose,Urine (UA) Negative (Negative); HCT 45.7 % (39.0-53.0); HDW 2.62; HGB 15.2 gm/dL (13.0-17.5); Ketones,Urine Negative (Negative); Leukocyte Esterase,Urine Negative (Negative); Luc # (Auto) 0.14; Luc % (Auto) 1; Lymphocytes # (A) 2.3 k/uL (1.0-4.8); Lymphocytes % (A) 21 %; MCH 27.1 pg (25.0-35.0); MCHC 33.3 g/dL (31.0-37.0); MCV 81.2 fL (80.0-100.0); Mean Platelet Volume 9.5; Monocytes # (A) 0.6 k/uL (0-1.0); Monocytes % (A) 5 %; Neutrophils # (A) 7.4 k/uL (1.3-7.7); Neutrophils % (A) 66 %; Nitrite,Urine Negative (Negative); PH, Urine 5.5 (5.0-8.0); Protein,Urine Trace (Negative); RBC 5.63 m/uL (4.30-5.90); RDW 16.2 % (11.5-15.5); Specific Gravity,Urine 1.018 (1.001-1.035); UA Billing (MACRO vs. MICRO) CHEM; Urobilinogen,Urine <2.0 mg/dL (<2.0); WBC 11.2 k/uL (3.8-10.6); WBC (Perox) 10.96
[2016-11-23 17:47] LABS: ALT 44 U/L (21-72); AST 34 U/L (17-59); Alkaline Phosphatase 112 U/L (38-126); Anion Gap 9 mmol/L; Blood Urea Nitrogen 11 mg/dL (9-20); Calcium 9.7 mg/dL (8.4-10.2); Carbon Dioxide 28 mmol/L (22-30); Chloride 104 mmol/L (98-107); Glucose 80 mg/dL (74-99); Non-African American GFR(MDRD) >60 (>60 ml/min/1.73 sqM); Potassium 3.9 mmol/L (3.5-5.1); Sodium 141 mmol/L (137-145); Total Bilirubin 0.4 mg/dL (0.2-1.3); Total Protein 7.8 g/dL (6.3-8.2)
[2016-11-23] MEDS ORDERED: RX INFO: IV CONTRAST WAS GIVEN 1 EACH MISC MISCELLANE PRN (18:02)
--- NOTE | 2016-11-23 18:39 | CT ---
EXAMINATION TYPE: CT abdomen pelvis w con DATE OF EXAM: 11/23/2016 COMPARISON: 09/20/2016 HISTORY: abdominal pain, nausea, hx of panreatitis CT DLP: 1611.7 mGycm Automated exposure control for dose reduction was used. TECHNIQUE: Helical acquisition of images was performed from the lung bases through the pelvis. CONTRAST: Performed without Oral Contrast and with IV Contrast, patient injected with 100 mL of Omnipaque 300. FINDINGS: Lung bases are clear of consolidation. There is no pleural effusion. There is minimal pleural thicken ing at the posterior lung bases. Liver has normal size and contour. Spleen is borderline enlarged and measures 15 cm. There is fat str anding around the tail and body of the pancreas. There is fluid around the inferior spleen. There is thickening of the anterior pararenal space on the left side. There is no adrenal mass. Kidneys show satisfactory contrast opacification. There is no hydronephrosi s. There is no ascites. Bladder distends smoothly. I see no intestinal wall thickening. There are no dilated loops. Appendix is not seen. There is no sign of appendicitis. I see no bony destructive process. IMPRESSION: THERE IS FAT STRANDING AND FLUID AROUND THE BODY AND TAIL OF THE PANCREAS AND RETROPERITONEUM ON THE LEFT SIDE CONSISTENT WITH INFLAMMATORY DISEASE. THERE IS BEEN REMOVAL OF THE DRAINAGE CATHETER COMPAR ED TO OLD EXAM. I SEE NO NEW FLUID COLLECTION SINCE OLD EXAM. THERE IS PARTIAL CLEARING OF THE INFLAM MATORY CHANGES.
[2016-11-23] MEDS ORDERED: ONDANSETRON 4 MG/2 ML VIAL IVP PRN (19:39)
[2016-11-23] MEDS ORDERED: NALOXONE 0.4 MG/ML 1 ML VIAL IV PRN (19:39)
--- NOTE | 2016-11-23 19:39 | ED ---
Abdominal Pain HPI - General Chief Complaint: Abdominal Pain Stated Complaint: Abd Pain Source: patient Mode of arrival: ambulatory Limitations: no limitations - History of Present Illness Initial Comments: 41-year-old male who recently had a common bile duct stent and percutaneous drainage system removed after an admission for necrotizing pink otitis presented for evaluation of epigastric abdominal pain. He states that he had initially presented here with pancreatitis and had subsequently been sent to [facility] where he was treated by Dr. Avendaño. He was released and had been given appropriate pain control. However he has since run out and 4 days ago while eating he had sudden onset pain described as sharp without radiation that progressively worsened. Pain is similar to previous pancreatitis. Associated nausea without vomiting. - Related Data Home Medications Medication Instructions Recorded Confirmed oxyCODONE HCL 10 mg PO Q6H PRN 08/04/16 11/23/16 Omeprazole 40 mg PO HS 08/25/16 11/23/16 Buprenorphine HCl/Naloxone HCl 1 film SUBLINGUAL BID 11/23/16 11/23/16 [Suboxone 4 mg-1 mg Sl Film] Mirtazapine [Remeron] 15 mg PO HS 11/23/16 11/23/16 OLANZapine [ZyPREXA Zydis] 10 mg PO HS 11/23/16 11/23/16 lamoTRIgine [LaMICtal] 25 mg PO BID 11/23/16 11/23/16 Allergies Allergy/AdvReac Type Severity Reaction Status Date / Time codeine Allergy Swelling Verified 11/23/16 14:47 furosemide [From Lasix] Allergy Rash/Hives Verified 11/23/16 14:47 haloperidol [From Haldol] Allergy Unknown Verified 11/23/16 14:47 prochlorperazine Allergy Swelling Verified 11/23/16 16:42 Milk Containing Products AdvReac Severe Diarrhea Verified 11/23/16 14:47 Review of Systems ROS Statement: Those systems with pertinent positive or pertinent negative responses have been documented in the HPI. ROS Other: All systems not noted in ROS Statement are negative. Constitutional: Denies: fever, chills, weakness Eyes: Denies: eye pain, vision change ENT: Denies: ear pain, throat pain Respiratory: Denies: cough, dyspnea Cardiovascular: Denies: chest pain, palpitations Endocrine: Denies: fatigue, polydipsia, polyuria Gastrointestinal: Reports: abdominal pain, nausea. Denies: vomiting, diarrhea, constipation, hematemesis, melena, hematochezia Genitourinary: Denies: urgency, dysuria Musculoskeletal: Denies: back pain, arthralgia, myalgia Skin: Reports: other (drain entry site at left flank). Denies: rash, lesions Neurological: Denies: headache, weakness Psychiatric: Denies: anxiety, depression Hematological/Lymphatic: Denies: easy bleeding, easy bruising Past Medical History Past Medical History: COPD, Seizure Disorder Additional Past Medical History / Comment(s): History of seizures-per patient, his last seizure was in 2011, Hepatitis C, Degenerative disc disease in back, possible arthritis in knees, hips and arms. , pancreatitis History of Any Multi-Drug Resistant Organisms: None Reported Past Surgical History: Appendectomy Additional Past Surgical History / Comment(s): Appendectomy-1996, eye surgery- 1998, drain for pancreatitis Past Anesthesia/Blood Transfusion Reactions: No Reported Reaction Past Psychological History: Anxiety, Bipolar, Depression Smoking Status: Current every day smoker Past Alcohol Use History: None Reported Past Drug Use History: None Reported - Past Family History Brother(s) Additional Family Medical History / Comment(s): Chronic alcoholism Sister(s) Additional Family Medical History / Comment(s): Chronic alcoholism Daughter(s) Additional Family Medical History / Comment(s): One daughter healthy Son(s) Additional Family Medical History / Comment(s): One son healthy Father History Unknown: Yes Family Medical History: AICD/Pacemaker, Myocardial Infarction ([place]) Additional Family Medical History / Comment(s): Schizophrenia. Per patient, his father at the age of 59 Mother History Unknown: Yes Family Medical History: No Reported History Additional Family Medical History / Comment(s): HPV General Exam Limitations: no limitations General appearance: alert, in distress Head exam: Present: atraumatic, normocephalic, normal inspection Eye exam: Present: normal appearance, PERRL, EOMI. Absent: scleral icterus, conjunctival injection, periorbital swelling ENT exam: Present: normal exam, mucous membranes moist Neck exam: Present: normal inspection. Absent: tenderness, meningismus, lymphadenopathy Respiratory exam: Present: normal lung sounds bilaterally. Absent: respiratory distress, wheezes, rales, rhonchi, stridor Cardiovascular Exam: Present: regular rate, normal rhythm, normal heart sounds. Absent: systolic murmur, diastolic murmur, rubs, gallop, clicks GI/Abdominal exam: Present: soft, tenderness, other (left flank healing incision from drain). Absent: distended, guarding, rebound, rigid Rectal exam: Present: deferred Extremities exam: Present: normal inspection, full ROM, normal capillary refill. Absent: tenderness, pedal edema, joint swelling, calf tenderness Back exam: Present: normal inspection Neurological exam: Present: alert, oriented X3, CN II-XII intact Psychiatric exam: Present: normal affect, normal mood Skin exam: Present: warm, dry, intact, normal color. Absent: rash Course Vital Signs 11/23/16 11/23/16 11/23/16 14:44 19:49 20:28 Temperature 98.7 F 97.8 F 98.7 F Pulse Rate 98 68 80 Pulse Rate [ Pulse Oximetery ] Respiratory 18 16 16 Rate Blood Pressure 120/84 145/74 147/68 Blood Pressure [Right Arm] O2 Sat by Pulse 98 98 99 Oximetry 11/23/16 20:41 Temperature 98.6 F Pulse Rate Pulse Rate [ 79 Pulse Oximetery ] Respiratory 18 Rate Blood Pressure Blood Pressure 123/86 [Right Arm] O2 Sat by Pulse 97 Oximetry Medical Decision Making - Medical Decision Making 41 yo male with previous admission to [facility] for necrotizing pancreatitis and recent CBD stent & drain removal presenting for evaluation of epigastric/ LUQ abdominal pain for the last four days consistent with previous pancreatitis. States onset was with PO intake. On PE he appears to be in mild distress and although abdomen is soft without peritoneal signs of guarding, rigidity, or rebound he is tender to palpation in the above noted areas. There is a healing wound where the drain was removed. Concern for recurrent pancreatitis and will obtain labs, EKG, CT with IV contrast, and provide pain control IVF and zofran. Labs indicative of pancreatitis. Pt remains afebrile however there is a leukocytosis. Pt reevaluated and pain has continued and given another dose of pain control. Dr. Manzanares updated on the status of his pt and agreed with plan to admit with request to continue NPO status through the night. Admission order placed and bed request submitted. - Lab Data Result diagrams: 11/23/16 17:00 11/23/16 17:00 Lab Results 11/23/16 11/23/16 11/23/16 Range/Units 17:00 17:00 17:00 WBC (3.8-10.6) k/uL RBC (4.30-5.90) m/uL Hgb (13.0-17.5) gm/dL Hct (39.0-53.0) % MCV (80.0-100.0) fL MCH (25.0-35.0) pg MCHC (31.0-37.0) g/dL RDW (11.5-15.5) % Plt Count (150-450) k/uL Neutrophils % % Lymphocytes % % Monocytes % % Eosinophils % % Basophils % % Neutrophils # (1.3-7.7) k/uL Lymphocytes # (1.0-4.8) k/uL Monocytes # (0-1.0) k/uL Eosinophils # (0-0.7) k/uL Basophils # (0-0.2) k/uL Anisocytosis Sodium 141 (137-145) mmol/L Potassium 3.9 (3.5-5.1) mmol/L Chloride 104 (98-107) mmol/L Carbon Dioxide 28 (22-30) mmol/L Anion Gap 9 mmol/L BUN 11 (9-20) mg/dL Creatinine 0.75 (0.66-1.25) mg/dL Est GFR (MDRD) Af Amer >60 (>60 ml/min/1.73 sqM) Est GFR (MDRD) Non-Af >60 (>60 ml/min/1.73 sqM) Glucose 80 (74-99) mg/dL Plasma Lactic Acid Mynor 1.1 (0.7-2.0) mmol/L Calcium 9.7 (8.4-10.2) mg/dL Total Bilirubin 0.4 (0.2-1.3) mg/dL AST 34 (17-59) U/L ALT 44 (21-72) U/L Alkaline Phosphatase 112 (38-126) U/L Total Protein 7.8 (6.3-8.2) g/dL Albumin 4.5 (3.5-5.0) g/dL Lipase 1024 H (23-300) U/L Urine Color Yellow Urine Appearance Clear (Clear) Urine pH 5.5 (5.0-8.0) Ur Specific [place] 1.018 (1.001-1.035) Urine Protein Trace H (Negative) Urine Glucose (UA) Negative (Negative) Urine Ketones Negative (Negative) Urine Blood Negative (Negative) Urine Nitrite Negative (Negative) Urine Bilirubin Negative (Negative) Urine Urobilinogen <2.0 (<2.0) mg/dL Ur Leukocyte Esterase Negative (Negative) 11/23/16 Range/Units 17:00 WBC 11.2 H (3.8-10.6) k/uL RBC 5.63 (4.30-5.90) m/uL Hgb 15.2 (13.0-17.5) gm/dL Hct 45.7 (39.0-53.0) % MCV 81.2 (80.0-100.0) fL MCH 27.1 (25.0-35.0) pg MCHC 33.3 (31.0-37.0) g/dL RDW 16.2 H (11.5-15.5) % Plt Count 220 (150-450) k/uL Neutrophils % 66 % Lymphocytes % 21 % Monocytes % 5 % Eosinophils % 6 % Basophils % 1 % Neutrophils # 7.4 (1.3-7.7) k/uL Lymphocytes # 2.3 (1.0-4.8) k/uL Monocytes # 0.6 (0-1.0) k/uL Eosinophils # 0.7 (0-0.7) k/uL Basophils # 0.1 (0-0.2) k/uL Anisocytosis Slight Sodium (137-145) mmol/L Potassium (3.5-5.1) mmol/L Chloride (98-107) mmol/L Carbon Dioxide (22-30) mmol/L Anion Gap mmol/L BUN (9-20) mg/dL Creatinine (0.66-1.25) mg/dL Est GFR (MDRD) Af Amer (>60 ml/min/1.73 sqM) Est GFR (MDRD) Non-Af (>60 ml/min/1.73 sqM) Glucose (74-99) mg/dL Plasma Lactic Acid Mynor (0.7-2.0) mmol/L Calcium (8.4-10.2) mg/dL Total Bilirubin (0.2-1.3) mg/dL AST (17-59) U/L ALT (21-72) U/L Alkaline Phosphatase (38-126) U/L Total Protein (6.3-8.2) g/dL Albumin (3.5-5.0) g/dL Lipase (23-300) U/L Urine Color Urine Appearance (Clear) Urine pH (5.0-8.0) Ur Specific [place] (1.001-1.035) Urine Protein (Negative) Urine Glucose (UA) (Negative) Urine Ketones (Negative) Urine Blood (Negative) Urine Nitrite (Negative) Urine Bilirubin (Negative) Urine Urobilinogen (<2.0) mg/dL Ur Leukocyte Esterase (Negative) 11/23/16 20:03 Normal sinus rhythm with a ventricular rate of 74, JUAN RAMON 142, QRS 92, QT/QTC 392/ 435. Disposition Clinical Impression: Pancreatitis, Leukocytosis Disposition: ADMITTED IP TO [facility] Decision to Admit Reason: Admit from EC Decision Date: 11/23/16 Decision Time: 19:39
[2016-11-23] MEDS: MORPHINE SULFATE 4 MG/ML SYRINGE IV PRN (21:13)
[2016-11-23] MEDS: lamoTRIgine 25 MG TAB PO SCH (23:26)
[2016-11-23] MEDS: PANTOPRAZOLE 40 MG TABLET PO SCH (23:26)
[2016-11-23] MEDS: OLANZapine ODT 10 MG TAB PO SCH (23:26)
[2016-11-23] MEDS: MIRTAZAPINE 15 MG TAB PO SCH (23:26)
[2016-11-24] MEDS: MORPHINE SULFATE 4 MG/ML SYRINGE IV PRN ×6 (01:03→21:49)
[2016-11-24] MEDS: SODIUM CHLORIDE 0.9% 1,000 ML IV SCH ×4 (01:04→17:37)
[2016-11-24 08:24] LABS: Anisocytosis Slight; Basophils # (A) 0.1 k/uL (0-0.2); Basophils % (A) 1 %; CH 26.5; Eosinophils # (A) 0.4 k/uL (0-0.7); Eosinophils % (A) 5 %; HCT 42.4 % (39.0-53.0); HDW 2.51; HGB 13.4 gm/dL (13.0-17.5); Luc # (Auto) 0.14; Luc % (Auto) 2; Lymphocytes # (A) 2.2 k/uL (1.0-4.8); Lymphocytes % (A) 30 %; MCH 26.3 pg (25.0-35.0); MCHC 31.6 g/dL (31.0-37.0); MCV 83.2 fL (80.0-100.0); Mean Platelet Volume 9.2; Monocytes # (A) 0.5 k/uL (0-1.0); Monocytes % (A) 7 %; Neutrophils # (A) 4.1 k/uL (1.3-7.7); Neutrophils % (A) 56 %; RDW 16.3 % (11.5-15.5); WBC 7.3 k/uL (3.8-10.6); WBC (Perox) 7.78
[2016-11-24 08:36] LABS: ALT 32 U/L (21-72); AST 33 U/L (17-59); Alkaline Phosphatase 98 U/L (38-126); Amylase 143 U/L (30-110); Anion Gap 9 mmol/L; Blood Urea Nitrogen 13 mg/dL (9-20); Carbon Dioxide 24 mmol/L (22-30); Chloride 110 mmol/L (98-107); Glucose 79 mg/dL (74-99); Magnesium 1.7 mg/dL (1.6-2.3); Non-African American GFR(MDRD) >60 (>60 ml/min/1.73 sqM); Phosphorous 4.6 mg/dL (2.5-4.5); Potassium 4.3 mmol/L (3.5-5.1); Sodium 143 mmol/L (137-145); Total Bilirubin 0.4 mg/dL (0.2-1.3); Total Protein 6.7 g/dL (6.3-8.2)
[2016-11-24] MEDS: KETOROLAC 30 MG/ML 1 ML VIAL IVP PRN ×3 (09:13→23:10)
[2016-11-24] MEDS: lamoTRIgine 25 MG TAB PO SCH ×2 (09:15→21:51)
[2016-11-24] MEDS: NICOTINE 21MG/24HR PATCH TRANSDERM SCH (10:25)
[2016-11-24] MEDS: OLANZapine ODT 10 MG TAB PO SCH (21:51)
[2016-11-24] MEDS: PANTOPRAZOLE 40 MG TABLET PO SCH (21:51)
[2016-11-24] MEDS: MIRTAZAPINE 15 MG TAB PO SCH (21:51)
[2016-11-25] MEDS: MORPHINE SULFATE 4 MG/ML SYRINGE IV PRN ×2 (03:52→07:53)
[2016-11-25] MEDS: SODIUM CHLORIDE 0.9% 1,000 ML IV SCH ×3 (06:59→18:37)
[2016-11-25] MEDS: KETOROLAC 30 MG/ML 1 ML VIAL IVP PRN (07:03)
[2016-11-25] MEDS: NICOTINE 21MG/24HR PATCH TRANSDERM SCH (07:53)
[2016-11-25] MEDS: lamoTRIgine 25 MG TAB PO SCH ×2 (07:53→20:10)
[2016-11-25] MEDS ORDERED: MORPHINE SULFATE 4 MG/ML SYRINGE IV PRN (09:56)
[2016-11-25 10:30] LABS: ALT 37 U/L (21-72); AST 24 U/L (17-59); Alkaline Phosphatase 85 U/L (38-126); Amylase 173 U/L (30-110); Anion Gap 10 mmol/L; Blood Urea Nitrogen 12 mg/dL (9-20); Calcium 8.5 mg/dL (8.4-10.2); Carbon Dioxide 20 mmol/L (22-30); Chloride 112 mmol/L (98-107); Glucose 90 mg/dL (74-99); Non-African American GFR(MDRD) >60 (>60 ml/min/1.73 sqM); Potassium 3.7 mmol/L (3.5-5.1); Sodium 142 mmol/L (137-145); Total Bilirubin 0.3 mg/dL (0.2-1.3); Total Protein 5.9 g/dL (6.3-8.2)
--- NOTE | 2016-11-25 12:14 | P.PN ---
Subjective 41-year-old male being seen on rounds this morning. Patient states the pain has improved. Patient lipase is up this morning to 1215 was 791 the day before. Patient is denying any nausea vomiting when questioning Amylase 173 this morning was 143. AST and ALT are not elevated patient is being treated for pancreatitis. Patient does have a history of recently undergoing common bile duct stent and percutaneous drainage removed after admission for necrotizing pancreatitis. The procedure was done at [facility] in [place] were patient was treated by Dr. Avendaño. Patient apparently was released and was given appropriate pain control. However the patient ran out of his medication 4 days ago and while he was eating he had a sudden onset of pain described as sharp without radiation progressively worse return to the emergency room to be treated for the above-mentioned symptoms. The symptoms were also associated with nausea there were no vomiting. On admission to the emergency room the patient did have a CAT scan of the abdomen pelvis with contrast done on November 23 it did show no new fluid collection since the old exam partial clearing of the inflammatory changes Objective - Vital Signs Vital signs: Vital Signs Temp 96.7 F L 11/25/16 07:00 Pulse 59 L 11/25/16 07:00 Resp 16 11/25/16 07:00 BP 126/77 11/25/16 07:00 Pulse Ox 94 L 11/25/16 07:00 Intake & Output 11/24/16 11/25/16 11/25/16 18:59 06:59 18:59 Intake Total 360 Balance 360 Intake: Oral 360 Other: Voiding Method Toilet Toilet # Voids 1 0 1 # Bowel Movements 0 - Exam Physical exam 41-year-old male resting in bed states abdominal pain has improved reports no nausea vomiting currently tolerating the clear liquid diet Lungs essentially clear adequate air movement Heart S1-S2 audible regular Abdomen soft no facial grimacing with palpitation to the abdominal wall no frequent stooling no nausea no vomiting bowel tones present Extremities no edema noted - Labs CBC & Chem 7: 11/24/16 07:58 11/25/16 09:13 Labs: Abnormal Lab Results - Last 24 Hours (Table) 11/25/16 Range/Units 09:13 Chloride 112 H (98-107) mmol/L Carbon Dioxide 20 L (22-30) mmol/L Total Protein 5.9 L (6.3-8.2) g/dL Albumin 3.3 L (3.5-5.0) g/dL Amylase 173 H (30-110) U/L Lipase 1215 H (23-300) U/L Assessment and Plan Plan: Impression Present on admission nausea vomiting left upper quadrant abdominal pain onset 4 days prior consistent with suspect due to acute pancreatitis A recent common bile duct stent and percutaneous drainage system removed after being treated for necrotizing pancreatitis at [facility] in [place] by Dr. Avendaño Present on admission leukocytosis suspect reactive Chronic and ongoing tobacco dependency Schizoaffective disorder Chronic hepatitis C Major depressive disorder Obesity BMI 33 History of opiate abuse prescription drugs History of alcoholism in remission Current every day smoker 1 pack a day Echocardiogram done May 2016 left ventricular systolic function normal EF between 60 and 65% no evidence of pulmonary hypertension Plan Repeat labs in the morning Resume home meds DVT and GI prophylaxis Continue IV hydration as ordered Pain control The above impression and plan of care have been discussed and directed by signing physician. Ana Meredith nurse practitioner acting as scribe for signing physician.
--- NOTE | 2016-11-25 13:54 | HP ---
CHIEF COMPLAINT: Abdominal pain and pancreatitis. HISTORY OF PRESENT ILLNESS: This is another admission for this 41-year-old white male who has been getting care at [facility] for chronic relapsing pancreatitis. He has had surgery on drainage of pancreatic pseudocyst with infection. The drain was removed several days ago and he started to redevelop upper abdominal pain and came to the emergency room. He had no vomiting, fever, chills or jaundice. REVIEW OF SYSTEMS: He has had no neurologic problems, change in vision or hearing, chest pain, cough, shortness of breath, hypertension, murmurs, rheumatic fever, melena, hematochezia, acholic stools, steatorrhea, hematemesis , urinary complaints, diabetes, etc. He does have mental illness issues. PAST MEDICAL HISTORY, FAMILY HISTORY, PERSONAL AND SOCIAL HISTORY: Revealed that he is allergic to COMPAZINE, HALDOL, BUSPAR AND CODEINE. He has been on OxyContin 10 mg q6 p.r.n., omeprazole 40 mg once a day, atorvastatin 20 mg h.s. , Zyprexa 10 mg once a day, mirtazapine 45 mg h.s. He used to drink heavily but stopped. He does smoke. PHYSICAL EXAM: Blood pressure is 100/80 with a pulse of 94, respirations 35 and afebrile. GENERAL: Appeared to be slightly overweight and in no acute distress, but somewhat ill in chronic appearance. SKIN: Dry and there is no jaundice. HEENT: Normal. Neck veins are not distended. CHEST: Clear. CARDIAC: Demonstrated normal sinus rhythm. No murmurs or extra sounds. ABDOMEN: Found to be protuberant and a generalized tenderness across the upper abdomen. There were no definite masses or visceromegaly. Bowel sounds present. EXTREMITIES: Normal. NEUROLOGIC: Intact. IMPRESSION: 1. Abdominal pain. 2. Chronic pancreatitis with pseudocyst and recent removal of drainage tube. PLAN: 1. Bedrest. 2. IV fluids. 3. Analgesics. 4. Follow pancreatic enzymes and white count and make determination if necessary to return to [facility]. [facility]
--- NOTE | 2016-11-25 14:23 | PN ---
CHIEF COMPLAINT: Pancreatitis. HISTORY OF PRESENT ILLNESS: This gentleman is doing better. Pain is improving and we will slowly advance his diet. PHYSICAL EXAM: He is afebrile. CHEST: Clear. CARDIAC: Normal. ABDOMEN: Soft and nontender. IMPRESSION: Pancreatitis. PLAN: Progress activity and diet and possibly home tomorrow. PINA
--- NOTE | 2016-11-25 14:40 | DS ---
CHIEF COMPLAINT: Pancreatitis and abdominal pain. HISTORY OF PRESENT ILLNESS AND PHYSICAL EXAM: Details of this man's history and physical can be found in the initial workup. LABORATORY STUDIES: While he was in the hospital he had laboratory studies, the details of which can be found in the laboratory section of his chart. COURSE IN THE HOSPITAL: After admission he was placed on bedrest, on intravenous fluids and his amylase and lipase were watched and they came down. Abdominal pain disappeared and it was felt that he could go home on the . He will be seen in the office in a few days. FINAL DIAGNOSES: 1. Chronic pancreatitis. 2. Schizophrenia. OPERATIONS: None. CONSULTATION: None. He is improved. PINA
[2016-11-25] MEDS: MORPHINE SULFATE 2 MG/ML SYRINGE IV PRN ×2 (15:37→22:54)
[2016-11-25] MEDS: OLANZapine ODT 10 MG TAB PO SCH (20:11)
[2016-11-25] MEDS: PANTOPRAZOLE 40 MG TABLET PO SCH (20:11)
[2016-11-25] MEDS: MIRTAZAPINE 15 MG TAB PO SCH (20:11)
[2016-11-26] MEDS: SODIUM CHLORIDE 0.9% 1,000 ML IV SCH ×2 (02:46→09:56)
[2016-11-26] MEDS: MORPHINE SULFATE 2 MG/ML SYRINGE IV PRN (07:23)
[2016-11-26 07:55] VITALS: BP 121/69; PULSE 60; RESP 18; TEMP 97.4
[2016-11-26 08:57] LABS: ALT 30 U/L (21-72); AST 22 U/L (17-59); Alkaline Phosphatase 86 U/L (38-126); Amylase 141 U/L (30-110); Anion Gap 9 mmol/L; Blood Urea Nitrogen 7 mg/dL (9-20); Calcium 8.9 mg/dL (8.4-10.2); Carbon Dioxide 23 mmol/L (22-30); Chloride 111 mmol/L (98-107); Cholesterol 137 mg/dL (<200); Glucose 117 mg/dL (74-99); HDL Cholesterol 22 mg/dL (40-60); Non-African American GFR(MDRD) >60 (>60 ml/min/1.73 sqM); Potassium 3.7 mmol/L (3.5-5.1); Sodium 143 mmol/L (137-145); Total Bilirubin 0.3 mg/dL (0.2-1.3); Total Protein 6.2 g/dL (6.3-8.2); Triglycerides 297 mg/dL (<150)
[2016-11-26] MEDS: NICOTINE 21MG/24HR PATCH TRANSDERM SCH (09:47)
[2016-11-26] MEDS: lamoTRIgine 25 MG TAB PO SCH (09:47)
[2016-11-26] MEDS: NALOXONE HCL SUBLINGUAL SCH (10:19)
[2016-11-26] MEDS: BUPRENORPHINE HCL SUBLINGUAL SCH (10:19)
--- NOTE | 2016-11-26 11:33 | P.DS ---
Providers Date of admission: 11/23/16 19:41 Expected date of discharge: 11/26/16 Attending physician: Hilton Manzanares Primary care physician: Hilton Manzana[facility] Course: 41-year-old male being seen on rounds this morning. Patient states the pain has improved. Patient lipase is up this morning to 1215 was 791 the day before. Patient is denying any nausea vomiting when questioning Amylase 173 this morning was 143. AST and ALT are not elevated patient is being treated for pancreatitis. Patient does have a history of recently undergoing common bile duct stent and percutaneous drainage removed after admission for necrotizing pancreatitis. The procedure was done at [facility] in [place] were patient was treated by Dr. Avendaño. Patient apparently was released and was given appropriate pain control. However the patient ran out of his medication 4 days ago and while he was eating he had a sudden onset of pain described as sharp without radiation progressively worse return to the emergency room to be treated for the above-mentioned symptoms. The symptoms were also associated with nausea there were no vomiting. On admission to the emergency room the patient did have a CAT scan of the abdomen pelvis with contrast done on November 23 it did show no new fluid collection since the old exam partial clearing of the inflammatory changes The white count was down to 7.3 and the lipase was down to 788 and amylase 141. Patient's symptoms significantly improved patient was anxious to be discharged home reinforced to the patient no alcohol and take medication as prescribed the patient's diet was advanced and patient was tolerating with no further abdominal cramping Impression Present on admission nausea vomiting left upper quadrant abdominal pain onset 4 days prior consistent with suspect due to acute pancreatitis A recent common bile duct stent and percutaneous drainage system removed after being treated for necrotizing pancreatitis at [facility] in [place] by Dr. Avendaño Present on admission leukocytosis suspect reactive Chronic and ongoing tobacco dependency Schizoaffective disorder Chronic hepatitis C Major depressive disorder Obesity BMI 33 History of opiate abuse prescription drugs History of alcoholism in remission Current every day smoker 1 pack a day Echocardiogram done May 2016 left ventricular systolic function normal EF between 60 and 65% no evidence of pulmonary hypertension The above impression and plan of care have been discussed and directed by signing physician. Ana Meredith nurse practitioner acting as scribe for signing physician. Plan - Discharge Summary New Discharge Prescriptions: Continue oxyCODONE HCL 10 mg PO Q6H PRN PRN Reason: Pain Omeprazole 40 mg PO HS lamoTRIgine [LaMICtal] 25 mg PO BID OLANZapine [ZyPREXA Zydis] 10 mg PO HS Mirtazapine [Remeron] 15 mg PO HS Buprenorphine HCl/Naloxone HCl [Suboxone 4 mg-1 mg Sl Film] 1 film SUBLINGUAL BID Discharge Medication List oxyCODONE HCL 10 mg PO Q6H PRN 08/04/16 [History] Omeprazole 40 mg PO HS 08/25/16 [History] Buprenorphine HCl/Naloxone HCl [Suboxone 4 mg-1 mg Sl Film] 1 film SUBLINGUAL BID 11/23/16 [History] Mirtazapine [Remeron] 15 mg PO HS 11/23/16 [History] OLANZapine [ZyPREXA Zydis] 10 mg PO HS 11/23/16 [History] lamoTRIgine [LaMICtal] 25 mg PO BID 11/23/16 [History] Follow up Appointment(s)/Referral(s): Hilton Manzanares MD [Primary Care Provider] - 11/30/16 3:20 pm Patient Instructions/Handouts: Pancreatitis (DC) Activity/Diet/Wound Care/Special Instructions: Regular diet. NO smoking, cessation information provided. No alcohol or illegal drug use. Take medications as prescribed. Discharge Disposition: HOME SELF-CARE
--- NOTE | 2016-11-26 15:43 | PN ---
CHIEF COMPLAINT: Chronic necrotizing pancreatitis. HISTORY OF PRESENT ILLNESS: This gentleman feels fine. Apparently the enzymes went up a little bit yesterday, but he still feels well and he has had no fever , chills, pain, nausea, etc. PHYSICAL EXAM: He is slightly tender over the upper abdomen. Bowel sounds are present. IMPRESSION: Chronic necrotizing pancreatitis. PLAN: Try to discharge today, if possible. PINA
--- NOTE | 2016-11-28 09:21 | PN ---
DATE OF SERVICE: 11/26/16 CHIEF COMPLAINT: Chronic relapsing necrotizing pancreatitis. HISTORY OF PRESENT ILLNESS: This gentleman is improving and his pain is gone. We will let him go home today. We will follow-up with him in a few days in the office. FINAL DIAGNOSIS: Chronic relapsing necrotizing pancreatitis. PINA
== END 2016-11-26 13:26 | disposition home or self-care (01) | DRG 440 ==
LOC: EC 14:22 → 4MS4W 19:41
PROVIDERS: ADMIT Family Medicine; ATTEND Family Medicine
DX: K85.90 Acute pancreatitis without necrosis or infection, unspecified (principal); F25.9 Schizoaffective disorder, unspecified; F32.9 Major depressive disorder, single episode, unspecified; B18.2 Chronic viral hepatitis C; K86.1 Other chronic pancreatitis; E66.9 Obesity, unspecified; F10.21 Alcohol dependence, in remission; F17.210 Nicotine dependence, cigarettes, uncomplicated; G40.909 Epilepsy, unspecified, not intractable, without status epilepticus; J44.9 Chronic obstructive pulmonary disease, unspecified; F41.9 Anxiety disorder, unspecified; M15.9 Polyosteoarthritis, unspecified; Z68.33 Body mass index [BMI] 33.0-33.9, adult; Z79.899 Other long term (current) drug therapy; Z88.5 Allergy status to narcotic agent; Z88.8 Allergy status to other drugs, medicaments and biological substances; Z82.49 Family history of ischemic heart disease and other diseases of the circulatory system
CPT/HCPCS: 36415; 74177; 80053; 80061; 81003; 82150; 83605; 83690; 83735; 84100; 85025; 93005; 96361; 96374; 96375; 99285

== ENCOUNTER 2016-12-25 17:08 | Observation (INO) | payer OTHER ==
[2016-12-25] MEDS ORDERED: SODIUM CHLORIDE 0.9% 500 ML IV ONE (17:58)
--- NOTE | 2016-12-25 18:08 | ED ---
Altered Mental Status HPI - General Stated Complaint: HEADACHE/ALTERED MENTAL Time Seen by Provider: 12/25/16 17:47 Source: patient, family Mode of arrival: wheelchair Limitations: altered mental status - History of Present Illness Initial Comments: 41-year-old male patient presents to emergency department today with his mother for evaluation of altered mental status. Mother states that the patient has been missing for the last day and a half, states that she been unable to reach him or contact him. She states that she did finally get a hold of him on the phone today and went to pick him up. She states when she found him he had no memory of the last couple of days states that he was very confused and not acting like his normal self. When asked why he is here patient states that he is having abdominal pain, states he has been having this pain for the last month. Patient's mother states that he has been very paranoid states that the FBI is after him, that he is being hunted. Mother states the patient does take Suboxone and she is unsure if he may be has taken other drugs while he was missing. She denies any use of any other types of drugs or alcohol. Patient is complaining of headache and neck pain as well. Patient is unsure how long this has been present. Patient denies any visual disturbance, fever, chills, chest pain, shortness of breath, dizziness, weakness, abdominal pain, nausea, vomiting, difficulties with urination or bowel movements. - Related Data Home Medications Medication Instructions Recorded Confirmed Omeprazole 40 mg PO HS 08/25/16 12/25/16 Buprenorphine HCl/Naloxone HCl 1 film SUBLINGUAL BID 11/23/16 12/25/16 [Suboxone 4 mg-1 mg Sl Film] Mirtazapine [Remeron] 15 mg PO HS 11/23/16 12/25/16 OLANZapine [ZyPREXA Zydis] 10 mg PO HS 11/23/16 12/25/16 lamoTRIgine [LaMICtal] 25 mg PO BID 11/23/16 12/25/16 Allergies Allergy/AdvReac Type Severity Reaction Status Date / Time codeine Allergy Swelling Verified 12/25/16 23:49 furosemide [From Lasix] Allergy Rash/Hives Verified 12/25/16 23:49 haloperidol [From Haldol] Allergy Unknown Verified 12/25/16 23:49 prochlorperazine Allergy Swelling Verified 12/25/16 23:49 Milk Containing Products AdvReac Severe Diarrhea Verified 12/25/16 23:49 Review of Systems ROS Statement: Those systems with pertinent positive or pertinent negative responses have been documented in the HPI. ROS Other: All systems not noted in ROS Statement are negative. Past Medical History Past Medical History: COPD, Seizure Disorder Additional Past Medical History / Comment(s): History of seizures-per patient, his last seizure was in 2011, Hepatitis C, Degenerative disc disease in back, possible arthritis in knees, hips and arms. , pancreatitis History of Any Multi-Drug Resistant Organisms: None Reported Past Surgical History: Appendectomy Additional Past Surgical History / Comment(s): Appendectomy-1996, eye surgery- 1998, drain for pancreatitis Past Anesthesia/Blood Transfusion Reactions: No Reported Reaction Past Psychological History: Anxiety, Bipolar, Depression Smoking Status: Current every day smoker Past Alcohol Use History: None Reported Past Drug Use History: Prescription Drug Abuse - Past Family History Brother(s) Additional Family Medical History / Comment(s): Chronic alcoholism Sister(s) Additional Family Medical History / Comment(s): Chronic alcoholism Daughter(s) Additional Family Medical History / Comment(s): One daughter healthy Son(s) Additional Family Medical History / Comment(s): One son healthy Father History Unknown: Yes Family Medical History: AICD/Pacemaker, Myocardial Infarction ([place]) Additional Family Medical History / Comment(s): Schizophrenia. Per patient, his father at the age of 59 Mother History Unknown: Yes Family Medical History: No Reported History Additional Family Medical History / Comment(s): HPV General Exam Limitations: altered mental status General appearance: in no apparent distress, other (Drowsy; appears unkempt and unwashed.) Head exam: Present: atraumatic, normocephalic, normal inspection Eye exam: Present: PERRL, EOMI, nystagmus (present at rest). Absent: normal appearance (Pupils dilated 7mm in size), scleral icterus, conjunctival injection , periorbital swelling ENT exam: Present: normal exam, normal oropharynx, mucous membranes moist Neck exam: Present: normal inspection, full ROM. Absent: tenderness, meningismus, lymphadenopathy Respiratory exam: Present: wheezes (Coarse wheezes throughout all joyce). Absent: normal lung sounds bilaterally, respiratory distress, rales, rhonchi, stridor Cardiovascular Exam: Present: regular rate, normal rhythm, normal heart sounds. Absent: systolic murmur, diastolic murmur, rubs, gallop, clicks GI/Abdominal exam: Present: soft, normal bowel sounds. Absent: distended, tenderness, guarding, rebound, rigid Back exam: Present: normal inspection. Absent: tenderness Neurological exam: Present: alert, altered, CN II-XII intact, other (Speech is fluid without any slurring.). Absent: oriented X3 (Oriented to person and place ) Psychiatric exam: Present: normal mood, flat affect. Absent: normal affect Skin exam: Present: warm, dry, intact, normal color. Absent: rash Course Vital Signs 12/25/16 12/25/16 17:54 23:06 Temperature 98.7 F 96.8 F L Pulse Rate 105 H 89 Respiratory 18 20 Rate Blood Pressure 138/82 120/59 O2 Sat by Pulse 97 98 Oximetry Medical Decision Making - Medical Decision Making 41-year-old male patient presents to emergency department today with altered mental status and headache. Throughout visit patient remained confused and delusional. CT of the brain was performed and showed no acute intracranial abnormalities. Labs were performed and did show an elevated lipase at 819 consistent with patient's history of chronic pancreatitis, white blood cell count 12.2 with neutrophil count of 8.6, lactic acid was negative. Chest x-ray showed a right upper lobe pneumonia. Patient's vital signs remained stable patient was afebrile during visit. It is unclear if the patient's acute delirium is related to drug use, or possible Suboxone withdrawal. Patient is a poor historian regarding this matter. We were unable to obtain a urine sample. He will be admitted to Dr. Manzanares, my attending Dr. Soria spoke to Dr. Page who was covering for Dr. Manzanares at this time, he accepted patient. Consults place for pulmonology per Dr. Page's instruction. Consult also placed for psychiatry for altered mental status and possible Suboxone withdrawal. Consult placed to neurology for altered mental status as well. - Lab Data Result diagrams: 12/25/16 19:45 12/25/16 20:45 Lab Results 12/25/16 12/25/16 12/25/16 Range/Units 18:45 19:45 20:45 WBC 12.2 H (3.8-10.6) k/uL RBC 5.57 (4.30-5.90) m/uL Hgb 15.0 (13.0-17.5) gm/dL Hct 46.2 (39.0-53.0) % MCV 82.9 (80.0-100.0) fL MCH 27.0 (25.0-35.0) pg MCHC 32.6 (31.0-37.0) g/dL RDW 16.1 H (11.5-15.5) % Plt Count 160 (150-450) k/uL Neutrophils % 71 % Lymphocytes % 17 % Monocytes % 7 % Eosinophils % 4 % Basophils % 1 % Neutrophils # 8.6 H (1.3-7.7) k/uL Lymphocytes # 2.0 (1.0-4.8) k/uL Monocytes # 0.8 (0-1.0) k/uL Eosinophils # 0.4 (0-0.7) k/uL Basophils # 0.1 (0-0.2) k/uL Anisocytosis Slight PT 11.6 (9.0-12.0) sec INR 1.2 H (<1.2) APTT 22.5 (22.0-30.0) sec Sodium (137-145) mmol/L Potassium (3.5-5.1) mmol/L Chloride (98-107) mmol/L Carbon Dioxide (22-30) mmol/L Anion Gap mmol/L BUN (9-20) mg/dL Creatinine (0.66-1.25) mg/dL Est GFR (MDRD) Af Amer (>60 ml/min/1.73 sqM) Est GFR (MDRD) Non-Af (>60 ml/min/1.73 sqM) Glucose (74-99) mg/dL POC Glucose (mg/dL) 113 H (75-99) mg/dL POC Glu Certified Nurses' Aide ID Carla Plasma Lactic Acid Mynor (0.7-2.0) mmol/L Calcium (8.4-10.2) mg/dL Total Bilirubin (0.2-1.3) mg/dL AST (17-59) U/L ALT (21-72) U/L Alkaline Phosphatase (38-126) U/L Ammonia (<30) umol/L Total Creatine Kinase (55-170) U/L CK-MB (CK-2) (0.0-2.4) ng/mL CK-MB (CK-2) Rel Index Troponin I (0.000-0.034) ng/mL Total Protein (6.3-8.2) g/dL Albumin (3.5-5.0) g/dL Amylase (30-110) U/L Lipase (23-300) U/L Serum Alcohol mg/dL 12/25/16 12/25/16 12/25/16 Range/Units 20:45 20:45 20:45 WBC (3.8-10.6) k/uL RBC (4.30-5.90) m/uL Hgb (13.0-17.5) gm/dL Hct (39.0-53.0) % MCV (80.0-100.0) fL MCH (25.0-35.0) pg MCHC (31.0-37.0) g/dL RDW (11.5-15.5) % Plt Count (150-450) k/uL Neutrophils % % Lymphocytes % % Monocytes % % Eosinophils % % Basophils % % Neutrophils # (1.3-7.7) k/uL Lymphocytes # (1.0-4.8) k/uL Monocytes # (0-1.0) k/uL Eosinophils # (0-0.7) k/uL Basophils # (0-0.2) k/uL Anisocytosis PT (9.0-12.0) sec INR (<1.2) APTT (22.0-30.0) sec Sodium 141 (137-145) mmol/L Potassium 4.0 (3.5-5.1) mmol/L Chloride 107 (98-107) mmol/L Carbon Dioxide 20 L (22-30) mmol/L Anion Gap 14 mmol/L BUN 12 (9-20) mg/dL Creatinine 0.72 (0.66-1.25) mg/dL Est GFR (MDRD) Af Amer >60 (>60 ml/min/1.73 sqM) Est GFR (MDRD) Non-Af >60 (>60 ml/min/1.73 sqM) Glucose 92 (74-99) mg/dL POC Glucose (mg/dL) (75-99) mg/dL POC Glu Certified Nurses' Aide ID Plasma Lactic Acid Mynor (0.7-2.0) mmol/L Calcium 9.8 (8.4-10.2) mg/dL Total Bilirubin 1.1 (0.2-1.3) mg/dL AST 39 (17-59) U/L ALT 43 (21-72) U/L Alkaline Phosphatase 121 (38-126) U/L Ammonia 32 H (<30) umol/L Total Creatine Kinase 184 H (55-170) U/L CK-MB (CK-2) 1.6 (0.0-2.4) ng/mL CK-MB (CK-2) Rel Index 0.9 Troponin I <0.012 (0.000-0.034) ng/mL Total Protein 8.3 H (6.3-8.2) g/dL Albumin 4.9 (3.5-5.0) g/dL Amylase 167 H (30-110) U/L Lipase 819 H (23-300) U/L Serum Alcohol <10 mg/dL 12/25/16 Range/Units 20:45 WBC (3.8-10.6) k/uL RBC (4.30-5.90) m/uL Hgb (13.0-17.5) gm/dL Hct (39.0-53.0) % MCV (80.0-100.0) fL MCH (25.0-35.0) pg MCHC (31.0-37.0) g/dL RDW (11.5-15.5) % Plt Count (150-450) k/uL Neutrophils % % Lymphocytes % % Monocytes % % Eosinophils % % Basophils % % Neutrophils # (1.3-7.7) k/uL Lymphocytes # (1.0-4.8) k/uL Monocytes # (0-1.0) k/uL Eosinophils # (0-0.7) k/uL Basophils # (0-0.2) k/uL Anisocytosis PT (9.0-12.0) sec INR (<1.2) APTT (22.0-30.0) sec Sodium (137-145) mmol/L Potassium (3.5-5.1) mmol/L Chloride (98-107) mmol/L Carbon Dioxide (22-30) mmol/L Anion Gap mmol/L BUN (9-20) mg/dL Creatinine (0.66-1.25) mg/dL Est GFR (MDRD) Af Amer (>60 ml/min/1.73 sqM) Est GFR (MDRD) Non-Af (>60 ml/min/1.73 sqM) Glucose (74-99) mg/dL POC Glucose (mg/dL) (75-99) mg/dL POC Glu Certified Nurses' Aide ID Plasma Lactic Acid Mynor 0.8 (0.7-2.0) mmol/L Calcium (8.4-10.2) mg/dL Total Bilirubin (0.2-1.3) mg/dL AST (17-59) U/L ALT (21-72) U/L Alkaline Phosphatase (38-126) U/L Ammonia (<30) umol/L Total Creatine Kinase (55-170) U/L CK-MB (CK-2) (0.0-2.4) ng/mL CK-MB (CK-2) Rel Index Troponin I (0.000-0.034) ng/mL Total Protein (6.3-8.2) g/dL Albumin (3.5-5.0) g/dL Amylase (30-110) U/L Lipase (23-300) U/L Serum Alcohol mg/dL - Radiology Data Radiology results: report reviewed, image reviewed CT of the brain without contrast shows the ventricles of normal size. There is no mass effect or midline shift. There is no sign of intracranial hemorrhage. The calvarium is intact. Impression by Dr. Galeas shows negative computed tomography scan of the brain. Two-view x-ray of the chest is of the heart and mediastinum are normal. There is evidence of a small infiltrate in the right upper lobe. The other lung field are clear. There is no pleural effusion. Heart appears normal. Impression shows new right upper lobe pneumonia compared to old exam. Disposition Clinical Impression: Altered mental status, Right upper lobe pneumonia, Delusions Disposition: ADMITTED IP TO THIS [facility] Condition: Fair Decision to Admit Reason: Admit from EC Decision Date: 12/25/16 Decision Time: 22:17
[2016-12-25 18:47] LABS: Glucose,Whole Blood 113 mg/dL (75-99)
--- NOTE | 2016-12-25 19:22 | XR ---
EXAMINATION TYPE: XR chest 2V DATE OF EXAM: 12/25/2016 COMPARISON: 08/25/2016 HISTORY: Headache and altered mental status. Chest pain TECHNIQUE: Frontal and lateral views of the chest are obtained. FINDINGS: Heart and mediastinum are normal. There is evidence of a small infiltrate in the right upp er lobe. The other lung joyce are clear. There is no pleural effusion. Heart appears normal. IMPRESSION: New right upper lobe pneumonia compared to old exam.
--- NOTE | 2016-12-25 19:49 | CT ---
EXAMINATION TYPE: CT brain wo con DATE OF EXAM: 12/25/2016 COMPARISON: NONE HISTORY: Altered mental status. CT DLP: 955.20 mGycm. Automated Exposure Control for Dose Reduction was Utilized. TECHNIQUE: CT scan of the head is performed without contrast. FINDINGS: Ventricles have normal size. There is no mass effect nor midline shift. There is no sign of intracranial hemorrhage. The calvarium is intact. IMPRESSION: Negative CT scan of the brain.
[2016-12-25 20:25] LABS: Anisocytosis Slight; Basophils # (A) 0.1 k/uL (0-0.2); Basophils % (A) 1 %; CH 27.4; CHCM 33.2; Eosinophils # (A) 0.4 k/uL (0-0.7); Eosinophils % (A) 4 %; HCT 46.2 % (39.0-53.0); Luc # (Auto) 0.23; Luc % (Auto) 2; Lymphocytes % (A) 17 %; MCHC 32.6 g/dL (31.0-37.0); MCV 82.9 fL (80.0-100.0); Mean Platelet Volume 9.6; Monocytes # (A) 0.8 k/uL (0-1.0); Monocytes % (A) 7 %; Neutrophils # (A) 8.6 k/uL (1.3-7.7); Neutrophils % (A) 71 %; RBC 5.57 m/uL (4.30-5.90); RDW 16.1 % (11.5-15.5); WBC 12.2 k/uL (3.8-10.6); WBC (Perox) 12.07
[2016-12-25 21:12] LABS: INR 1.2 (<1.2); Prothrombin Time 11.6 sec (9.0-12.0)
[2016-12-25 21:15] LABS: ALT 43 U/L (21-72); AST 39 U/L (17-59); Alcohol <10 mg/dL; Alkaline Phosphatase 121 U/L (38-126); Amylase 167 U/L (30-110); Anion Gap 14 mmol/L; Blood Urea Nitrogen 12 mg/dL (9-20); Calcium 9.8 mg/dL (8.4-10.2); Carbon Dioxide 20 mmol/L (22-30); Chloride 107 mmol/L (98-107); Glucose 92 mg/dL (74-99); Non-African American GFR(MDRD) >60 (>60 ml/min/1.73 sqM); Sodium 141 mmol/L (137-145); Total Bilirubin 1.1 mg/dL (0.2-1.3); Total Protein 8.3 g/dL (6.3-8.2)
[2016-12-25 21:18] LABS: Partial Thromboplastin Time 22.5 sec (22.0-30.0)
[2016-12-25] MEDS ORDERED: SODIUM CHLORIDE 0.9% 1,000 ML IV ONE (21:31)
[2016-12-25 21:34] LABS: Creatine Kinase 184 U/L (55-170)
[2016-12-25 21:45] LABS: Creatine Kinase MB 1.6 ng/mL (0.0-2.4); Troponin I <0.012 ng/mL (0.000-0.034)
[2016-12-25] MEDS ORDERED: PNEUMONIA PROTOCOL UTILIZED 1 EACH MISC PO PRN (22:07)
[2016-12-26] MEDS: LEVOFLOXACIN 750MG-D5W PMX 750 MG in DEXTROSE/WATER 1 150ML.BAG IVPB SCH ×2 (00:58→21:15)
[2016-12-26] MEDS ORDERED: OLANZapine ODT 10 MG TAB PO SCH ×2 (01:26→21:00)
[2016-12-26] MEDS ORDERED: NON-FORMULARY DRUG (Omeprazole [Omeprazole] 40 MG) PO SCH (01:26)
[2016-12-26] MEDS ORDERED: MIRTAZAPINE 15 MG TAB PO SCH (01:26)
[2016-12-26] MEDS: PIPERACILLIN-TAZOBACTAM 3.375 GM in DEXTROSE/WATER 1 50ML.BAG IVPB SCH ×2 (02:34→09:41)
[2016-12-26] MEDS: LACTULOSE 20 GM/30 ML CUP PO SCH ×3 (03:49→21:15)
[2016-12-26] MEDS: IPRATROPIUM-ALBUTEROL 3 ML NEB INHALATION SCH ×4 (07:54→20:23)
[2016-12-26] MEDS ORDERED: SYMBICORT 160-4.5 MCG INHALER INHALATION SCH (08:00)
[2016-12-26 08:09] LABS: ALT 37 U/L (21-72); AST 36 U/L (17-59); Alkaline Phosphatase 125 U/L (38-126); Amylase 142 U/L (30-110); Anion Gap 11 mmol/L; Blood Urea Nitrogen 13 mg/dL (9-20); Calcium 9.5 mg/dL (8.4-10.2); Carbon Dioxide 23 mmol/L (22-30); Chloride 108 mmol/L (98-107); Glucose 89 mg/dL (74-99); Non-African American GFR(MDRD) >60 (>60 ml/min/1.73 sqM); Potassium 4.1 mmol/L (3.5-5.1); Sodium 142 mmol/L (137-145); Total Bilirubin 1.2 mg/dL (0.2-1.3); Total Protein 7.4 g/dL (6.3-8.2)
[2016-12-26] MEDS ORDERED: lamoTRIgine 25 MG TAB PO SCH (09:00)
--- NOTE | 2016-12-26 09:12 | XR ---
EXAMINATION TYPE: XR chest 2V DATE OF EXAM: 12/26/2016 COMPARISON: Chest x-ray from yesterday. HISTORY: Pneumonia prior.. TECHNIQUE: Frontal and lateral views of the chest are obtained. FINDINGS: There is patchy right upper lobe opacity. There is no new focal air space opacity, pleural effusion, or pneumothorax seen. The cardiac silhouette size is within normal limits. The osseous s tructures are intact. IMPRESSION: Stable patchy right upper lobe infiltrate and/or atelectasis. No new infiltrate is seen.
[2016-12-26] MEDS: HEPARIN SODIUM,PORCINE 5,000 UNIT/ML 1 ML VIAL SQ SCH ×2 (09:16→21:14)
[2016-12-26] MEDS: NICOTINE 21MG/24HR PATCH TRANSDERM SCH (09:16)
[2016-12-26] MEDS: lamoTRIgine 25 MG TAB PO SCH ×2 (09:17→21:15)
[2016-12-26 11:05] LABS: Appearance,Urine Clear (Clear); Bilirubin,Urine Negative (Negative); Glucose,Urine (UA) Negative (Negative); Ketones,Urine Trace (Negative); Leukocyte Esterase,Urine Negative (Negative); Nitrite,Urine Negative (Negative); PH, Urine 5.5 (5.0-8.0); Protein,Urine Trace (Negative); Specific Gravity,Urine 1.018 (1.001-1.035); UA Billing (MACRO vs. MICRO) CHEM; Urobilinogen,Urine <2.0 mg/dL (<2.0)
--- NOTE | 2016-12-26 12:29 | HP ---
HISTORY AND PHYSICAL DATE OF SERVICE: 12/25/2016 I am covering for Dr. Manzanares. CHIEF COMPLAINT: Change in mental status. HISTORY: This 41-year-old gentleman with past medical history of multiple medical problems including COPD, seizure disorder, history of hepatitis, history of degenerative joint disease, history of anxiety, bipolar, depression, history of nicotine dependence, history of prescription drug abuse being followed by Dr. Manzanares in the outpatient setting apparently was brought to [facility] by mother for psychiatric evaluation. Patient was confused. The patient was not able to be contacted and finally the mother found him with no memory for past couple of days and he was taken to [facility]. The patient was found to have right upper lobe pneumonia and admitted for further evaluation and treatment. Pneumonia is also slightly elevated. Of note the patient also had a recent history of necrotizing pancreatitis with a drainage at [facility]. Amylase and lipase were elevated. The patient is confused at this time and not very coherent, unable to provide a clear history. Most of the history is taken from my discussion with staff and discussion with ER physician, as well as review of the chart at this time. PAST MEDICAL HISTORY: History of seizure disorder, COPD, history of anxiety, bipolar, depression, history of prescription drug abuse and alcohol. MEDICATIONS: Prior to admission include: 1. Lamictal 25 mg p.o. b.i.d. 2. Omeprazole 40 mg q.h.s. 3. Zyprexa 10 mg q.h.s. 4. Remeron 50 mg q.h.s. 5. Suboxone b.i.d. ALLERGIES: CODEINE, LASIX, HALDOL, PROCHLORPERAZINE CONTAINING PRODUCTS. Family history, social history and review of systems could not be taken at length. Review of systems could not be obtained because of the mental status. Family history of myocardial infarctions, schizophrenia per chart. Smoking per chart. PHYSICAL EXAMINATION: The patient is conscious, confused. Pulse is 105, blood pressure 130/82, respiration 18, temp is 98.2, pulse ox 97% room air. HEENT: Conjunctivae normal. Oral mucosa moist. NECK: No jugular venous distention. No carotid bruit. No lymph node enlargement. CARDIOVASCULAR: S1, S2. RESPIRATORY: Breath sounds diminished at the bases. Bilateral scattered rhonchi, expiratory wheezing and crackles. ABDOMEN: Soft and nontender. No mass palpable. Obese. No ascites. LEGS: No edema. No swelling. NERVOUS SYSTEM: Higher function as mentioned earlier. Moves all four limbs. No focal motor or sensory deficits. LYMPHATICS: No lymphadenopathy in the neck, axillae or groin. SKIN: No rash, ulcer or bleeding. LABS: WBC 12.2. CMP shows a CO2 of 20, otherwise ammonia 32. Amylase is 169 and lipase 819. Chest x-ray showed right upper lobe pneumonia. ASSESSMENT: 1. Chronic obstructive pulmonary disease acute exacerbation with acute right upper lobe pneumonia, possible gram-negative with a possible sepsis. 2. Change in mental status, acute metabolic encephalopathy. 3. History of seizure disorder. 4. History of hepatitis C. 5. Possible acute pancreatitis. 6. Anxiety, bipolar, depression. 7. History of recent pancreatitis and as well as percutaneous drainage of common bile duct. 8. History of schizoaffective disorder. 9. History of ETOH. 10.History of prescription drug abuse. 11.Increased WBC. RECOMMENDATIONS AND DISCUSSION: In this 41-year-old gentleman who present with multiple complex medical issues, we will monitor the patient closely. Will recommend broad-spectrum IV antibiotics, bronchodilators and resume the home medications. Otherwise I would also recommend Pulmonary consultation as well as Neurology consultation as well. The prognosis is guarded because of multiple complex medical issues. See orders for details. Follow the cultures. Repeat labs will be ordered. Psychiatric evaluation has been also been sought. Further recommendations to follow. Copy of dictation forwarded to Dr. Manzanares who is the primary physician. MMODL / IJN: [id number] /
[2016-12-26] MEDS: LORazepam 2 MG/ML INJ IV PRN ×2 (14:37→19:42)
[2016-12-26] MEDS ORDERED: AMPICILLIN-SULBACTAM 1.5 GM in SODIUM CHLORIDE 0.9% 50 ML IVPB SCH (16:00)
--- NOTE | 2016-12-26 16:17 | CONS ---
CONSULTATION Juan Ralph is a 41-year-old male, who presented to the ED at [facility] when he apparently had some memory loss. His mother had been looking for him. He did not actually remember anything for about a day and a day and one half and subsequently came into the ED when he was brought in by his mother. He denied any fever, chills, or rigors. He does not actually remember whether he lost consciousness or not. He had a chest x-ray done which showed evidence of a right upper zone infiltrate. PAST MEDICAL HISTORY: Is positive for COPD and seizure disorder, hepatitis C, degenerative disc disease. History of heroin addiction. History of appendectomy and eye surgery. History of pancreatic procedure possibly some kind of ERCP. FAMILY HISTORY: Positive for severe COPD, asthma in his father. Asthma in his mother. SOCIAL HISTORY: Patient smoked about 2 packs of cigarettes per day. Used to use intravenous heroin. MEDICATIONS: Prior to admission were: 1. Lamictal. 2. Omeprazole. 3. Zyprexa. 4. Remeron. 5. Suboxone. REVIEW OF SYSTEMS: Is noncontributory other than for what is described in his present illness. ALLERGIC: CODEINE. FUROSEMIDE, HALOPERIDOL, PROCHLORPERAZINE AND MILK CONTAINING PRODUCTS. PHYSICAL EXAMINATION: Respiratory rate is 18, pulse is 66, temperature 97.3, blood pressure 106/64, O2 saturation on room is 97%. HEENT: Unremarkable. Chest reveals expiratory wheeze on the left. Right is relatively clear. Cardiovascular system: S1, S2. ABDOMEN: Soft. There is no pedal edema. LABS: Reveal a white count of 12.2, hemoglobin of 15, neutrophil count of 8.6, PT/INR of 1.2. Sodium 142, potassium 4.1, chloride 108, bicarb 20, BUN 12, creatinine 0.72, amylase 167, lipase 819. Chest x-ray showed right upper zone infiltrate. Ammonia 32. CPK 184. IMPRESSION: At this time. 1. Memory loss. Possibly secondary to metabolic encephalopathy. 2. Right upper lobe pneumonia versus other etiology. 3. Acute pancreatitis. 4. History of seizure disorder. 5. Bronchospasm secondary to asthma or chronic obstructive pulmonary disease with acute exacerbation. RECOMMENDATIONS: At this point in time from pulmonary standpoint, switch his antibiotics to Unasyn and Levaquin to cover for aspiration type organisms. Would keep him on bronchodilators. Would consider a short course of steroids if he does not start to improve. Would add inhalation budesonide by nebulizer. Keep him on GI and DVT prophylaxis. Depending on how he does we shall make further changes to his care. RANDY / LISA: [id number] /
--- NOTE | 2016-12-26 17:03 | CT ---
EXAMINATION TYPE: CT chest wo con DATE OF EXAM: 12/26/2016 COMPARISON: Chest x-ray earlier today. CT abdomen and pelvis from November 23, 2016. HISTORY: pneumonia per order. CT DLP: 408.6 mGycm. Automated Exposure Control for Dose Reduction was Utilized. TECHNIQUE: CT scan of the thorax is performed without IV contrast. FINDINGS: LUNGS: There is calcified 6 x 4 mm nodule posteriorly in the right upper lobe on axial image 14. Ther e is 11 x 5 mm noncalcified nodular opacity in the right midlung anterolaterally on axial image 28. T here is some linear scarring or atelectasis in the right lung base just above diaphragm. There is maddie cified 6 x 3 mm nodule in the posterior left upper lobe on axial image 16. Patchy dependent atelectas is is seen in the left lower lobe. No suspicious consolidation or groundglass opacity is seen. There is round 9 mm calcified nodule in the right lung base anteriorly on axial image 42. There is no pleur al effusion or pneumothorax seen. The tracheobronchial tree is patent. MEDIASTINUM: Lack of IV contrast is noted to limit evaluation for mediastinal and especially hilar ad enopathy. There are no definitive greater than 1 cm noncalcified hilar or mediastinal lymph nodes. T here are prominent but calcified right hilar, pericarinal, and subcarinal lymph nodes. No cardiomegal y or pericardial effusion is seen. OTHER: Liver is diffusely hypodense consistent with fatty infiltration. In the visualized upper abdom en there is persistent ill-defined fluid and fat stranding at level of pancreas worrisome for acute p ancreatitis. IMPRESSION: No suspicious acute infiltrate or pneumonia identified. Evidence of old granulomatous dis ease. Suspect persistent acute pancreatitis not significantly changed from November 23 CT. Clinical and p ancreatic lab correlation advised.
[2016-12-26] MEDS: BUDESONIDE 0.5 MG/2 ML NEBU INHALATION SCH (20:23)
[2016-12-26] MEDS ORDERED: PANTOPRAZOLE 40 MG TABLET PO SCH (21:00)
[2016-12-26] MEDS: MIRTAZAPINE 15 MG TAB PO SCH (21:15)
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
--- NOTE | 2016-12-27 01:17 | P.CNNES ---
History of Present Illness Consult date: 12/26/16 Requesting physician: Justine Blandon Reason for Consult: altered mental status Chief complaint: altered mental status History of Present Illness: Patient is a 41-year-old male being consult to by neurology for altered mental status. Patient presented at the ED with possible memory loss. His mother had been looking for him. He does not actually remember anything for about a day to day and a half from midmorning through Wednesday. Patient received his Suboxone and then left the area with friends. Sometime between / and his return Wednesday, the patient attempted to obtain Xanax, his preferred street drug with a normal use of up to 90 pills in 48 hours. Patient was unable to obtain any Xanax but was able to obtain methamphetamine and utilized 3-4 times. Patient states he has a drug history that began in his teen years. At contact, the patient was seated in bed eating lunch. Patient was alert and oriented 3 mildly diaphoretic. patient denied any focal neurological deficits and stated that he was approximately 85% returned to baseline. The only remaining symptom was his lack of complete recall of events while he was unable to be located, but his memory was returning. Review of Systems systems not noted in HPI or negative Past Medical History Past Medical History: COPD, Seizure Disorder Additional Past Medical History / Comment(s): History of seizures-per patient, his last seizure was in 2011, Hepatitis C, Degenerative disc disease in back, possible arthritis in knees, hips and arms. , pancreatitis History of Any Multi-Drug Resistant Organisms: None Reported Past Surgical History: Appendectomy Additional Past Surgical History / Comment(s): Appendectomy-1996, eye surgery- 1998, drain for pancreatitis Past Anesthesia/Blood Transfusion Reactions: No Reported Reaction Past Psychological History: Anxiety, Bipolar, Depression Smoking Status: Current every day smoker Past Alcohol Use History: None Reported Past Drug Use History: Methamphetamine, Prescription Drug Abuse - Past Family History Brother(s) Additional Family Medical History / Comment(s): Chronic alcoholism Sister(s) Additional Family Medical History / Comment(s): Chronic alcoholism Daughter(s) Additional Family Medical History / Comment(s): One daughter healthy Son(s) Additional Family Medical History / Comment(s): One son healthy Father History Unknown: Yes Family Medical History: AICD/Pacemaker, Myocardial Infarction (CT) Additional Family Medical History / Comment(s): Schizophrenia. Per patient, his father at the age of 59 Mother History Unknown: Yes Family Medical History: No Reported History Additional Family Medical History / Comment(s): HPV Medications and Allergies Home Medications Medication Instructions Recorded Confirmed Type Omeprazole 40 mg PO HS 08/25/16 12/25/16 History Buprenorphine HCl/Naloxone HCl 1 film SUBLINGUAL BID 11/23/16 12/25/16 History [Suboxone 4 mg-1 mg Sl Film] Mirtazapine [Remeron] 15 mg PO HS 11/23/16 12/25/16 History OLANZapine [ZyPREXA Zydis] 10 mg PO HS 11/23/16 12/25/16 History lamoTRIgine [LaMICtal] 25 mg PO BID 11/23/16 12/25/16 History Allergies Allergy/AdvReac Type Severity Reaction Status Date / Time codeine Allergy Swelling Verified 12/25/16 23:49 furosemide [From Lasix] Allergy Rash/Hives Verified 12/25/16 23:49 haloperidol [From Haldol] Allergy Unknown Verified 12/25/16 23:49 prochlorperazine Allergy Swelling Verified 12/25/16 23:49 Milk Containing Products AdvReac Severe Diarrhea Verified 12/25/16 23:49 Physical Examination - Vital Signs Vital Signs: Vital Signs Temp Pulse Pulse Resp BP Pulse Ox 12/26/16 23:00 97.7 F 78 18 112/66 95 12/26/16 14:08 97.5 F L 94 20 113/71 96 12/26/16 07:33 97.3 F L 66 18 106/64 97 12/26/16 04:00 97.6 F 85 16 103/73 98 Intake and Output 12/26/16 12/26/16 12/27/16 14:59 22:59 06:59 Other: # Voids 1 1 # Bowel Movements 1 Constitutional: AOx3, cooperative HEENT: NC/AT, no facial asymmetry is seen. Throat: Supple, no masses Respiratory: No increased work of breathing Cardiac: Regular rate and Rhythm GI: non tender, non distended Musculoskeletal: Nurse Ob strengths are equal bilaterally 5/5, Lower extremity strengths are equal bilaterally at 5/5. Neurological: CN II-XII in tact, patient was AOx3, speech and language are normal, no unilateralizing weakness, no seizure activity note on physical exam. Sensation was normal. Integementary: no rash, no erythema, diaphoretic Psychiatric: mood and affect appropriate Results - Laboratory Findings CBC and BMP: 12/25/16 19:45 12/26/16 06:56 Abnormal Lab Findings: Abnormal Labs 12/25/16 12/25/16 12/25/16 18:45 19:45 20:45 WBC 12.2 H RDW 16.1 H Neutrophils # 8.6 H INR 1.2 H Chloride Carbon Dioxide POC Glucose (mg/dL) 113 H Ammonia Total Creatine Kinase Total Protein Amylase Lipase Urine Protein Urine Ketones Ur Amphetamines Screen U Methamphetamines Scrn U Benzodiazepines Scrn 12/25/16 12/25/16 12/25/16 20:45 20:45 20:45 WBC RDW Neutrophils # INR Chloride Carbon Dioxide 20 L POC Glucose (mg/dL) Ammonia 32 H Total Creatine Kinase 184 H Total Protein 8.3 H Amylase 167 H Lipase 819 H Urine Protein Urine Ketones Ur Amphetamines Screen U Methamphetamines Scrn U Benzodiazepines Scrn 12/26/16 12/26/16 12/26/16 06:56 10:40 10:40 WBC RDW Neutrophils # INR Chloride 108 H Carbon Dioxide POC Glucose (mg/dL) Ammonia Total Creatine Kinase Total Protein Amylase 142 H Lipase 815 H Urine Protein Trace H Urine Ketones Trace H Ur Amphetamines Screen Detected H U Methamphetamines Scrn Detected H U Benzodiazepines Scrn Detected H Assessment and Plan (1) Altered mental status Status: Acute (2) Right upper lobe pneumonia Status: Acute (3) Acute pancreatitis Status: Acute (4) At risk for readmission to hospital Status: Acute (5) Pancreatitis Status: Acute (6) Opiate abuse, episodic Status: Chronic Plan: patient does appear to be experiencing prescription medication misuse/ withdrawal. Patient does not have a fever. Patient does have an extensive history of street drug use. Patient freely admits to using Suboxone by prescription and misusing methamphetamine during the occurrence. Patient also has finding of pneumonia. Patient CT of the brain was negative. At this time, patient's altered mental status/memory loss appears to be related to his medication misuse and abuse of street drugs. Psychiatric consult is recommended. No further neurological workup is needed at this time. Status: Cleared from a neurological standpoint. If patient's condition changes or further input is needed, please feel free to contact our office. I discussed the patient's pertinent medical information with Dr. Woodruff. He agrees with the plan of care as implemented.
[2016-12-27] MEDS: PIPERACILLIN-TAZOBACTAM 3.375 GM in DEXTROSE/WATER 1 50ML.BAG IVPB SCH ×2 (01:40→09:17)
[2016-12-27] MEDS: IPRATROPIUM-ALBUTEROL 3 ML NEB INHALATION SCH ×4 (07:55→20:49)
[2016-12-27] MEDS: BUDESONIDE 0.5 MG/2 ML NEBU INHALATION SCH ×2 (07:55→20:49)
[2016-12-27] MEDS: LACTULOSE 20 GM/30 ML CUP PO SCH ×2 (08:25→20:56)
[2016-12-27] MEDS: HEPARIN SODIUM,PORCINE 5,000 UNIT/ML 1 ML VIAL SQ SCH ×2 (08:25→20:56)
[2016-12-27] MEDS: LORazepam 2 MG/ML INJ IV PRN (08:30)
[2016-12-27] MEDS: NICOTINE 21MG/24HR PATCH TRANSDERM SCH (08:30)
[2016-12-27 08:53] LABS: Anisocytosis Slight; Basophils # (A) 0.1 k/uL (0-0.2); Basophils % (A) 1 %; CH 27.7; CHCM 33.2; Eosinophils # (A) 0.5 k/uL (0-0.7); Eosinophils % (A) 5 %; HCT 42.1 % (39.0-53.0); HDW 2.36; HGB 13.6 gm/dL (13.0-17.5); Luc # (Auto) 0.15; Luc % (Auto) 2; Lymphocytes # (A) 1.8 k/uL (1.0-4.8); Lymphocytes % (A) 19 %; MCH 26.9 pg (25.0-35.0); MCHC 32.2 g/dL (31.0-37.0); MCV 83.7 fL (80.0-100.0); Mean Platelet Volume 9.8; Monocytes # (A) 0.6 k/uL (0-1.0); Monocytes % (A) 7 %; Neutrophils # (A) 6.1 k/uL (1.3-7.7); Neutrophils % (A) 67 %; RBC 5.04 m/uL (4.30-5.90); RDW 16.3 % (11.5-15.5); WBC 9.1 k/uL (3.8-10.6); WBC (Perox) 8.91
--- NOTE | 2016-12-27 09:09 | CONS ---
CONSULTATION DATE OF SERVICE: 12/26/2016. REASON FOR CONSULTATION: Infection. HISTORY OF PRESENT ILLNESS: The patient is a 41-year-old, male, who recently he did have a history of necrotizing pancreatitis thought to be due to gallstone for with the patient was admitted to [facility]. The patient decided he did have a drainage tube and is being pumped with multiple antibiotic therapy. However by the time of discharge, he was told the infection was all gone. However, he did have a gallstone with concern for recurrent pancreatitis. He was brought in for that. The gallbladder needed to be removed at a later date. The patient apparently has been brought into the ER by the mother with concern for mental status changes. The patient apparently has not been answering his phone. The patient has no recollection of what happened yesterday , however, at time of my evaluation, the patient is awake, alert, oriented. He knows that he is in [facility]. The patient has been complaining of some headache but no photophobia. Denies significant chest pain or shortness of breath. He has had minimal cough. He did have some pain in the epigastric area, dull aching pain, 3 to 4/10 , and no radiation. Some nausea but no vomiting and no diarrhea. No fever since being admitted to the hospital, however, he did have an elevated white count of 12.2. The patient did have a chest x-ray followed by CT that was negative for pneumonia. ID was consulted. Workup and recommendation regarding infection. The patient did have a UA that was negative, though his urine drug screen was positive for amphetamines and benzos. The patient did have blood cultures, which are currently pending. sputum not collected. REVIEW OF SYSTEMS: CONSTITUTIONAL: Positive for weakness. EYES: No complaints. ENT: No complaints. RESPIRATORY: As per HPI. CARDIOVASCULAR: No complaints. GENITOURINARY: No complaints. RESPIRATORY: As per HPI. MUSCULOSKELETAL: No complaints. PSYCHOLOGICAL: No complaint. NEUROLOGICAL: No complaints. PAST MEDICAL HISTORY: Significant for necrotizing pancreatitis secondary to gallstone, COPD, seizure disorder, degenerative disk disease, chronic hepatitis C. PAST SURGICAL HISTORY: Appendectomy, eye surgery, drainage of the pancreatic abscess. SOCIAL HISTORY: The patient is currently a smoker. Denies any drug use. FAMILY HISTORY: Significantly positive for chronic alcoholism in siblings. ALLERGIES: Codeine, Lasix, allopurinol, chlorproethazine. MEDICATIONS: The patient is currently on Unasyn 1.5 every 8 hours, Pulmicort, heparin, Lamictal, levofloxacin, Ativan, Remeron, nicotine patch. PHYSICAL EXAMINATION: VITAL SIGNS: Blood pressure is 113/71, pulse of 94, temperature 97.5, he is 96% on room air. GENERAL DESCRIPTION: A middle aged male, lying in bed, in no distress. HEENT: Oral cavity normal. LUNGS: No accessory muscle of respiration use. HEENT: No pallor or scleral icterus. Oral mucosa is dry. NECK: Trachea is central. No thyromegaly. LUNGS: Unlabored breathing. Clear to auscultation anteriorly. No wheeze or crackle. HEART: S1, S2. Regular rate and rhythm. ABDOMEN: Soft, very minimal tenderness in the epigastric area. No guarding or rigidity. No organomegaly. EXTREMITIES: No edema of the feet. SKIN: No rash or mass. NEUROLOGICAL: Awake, alert, oriented, no signs of meningeal irritation. LABORATORY DATA: Hemoglobin is 15, white count 10.7, BUN of 13, creatinine 0.071. Electrolytes have been normal. Liver enzymes are normal. Urine has been negative. Chest CT and chest x- ray were negative. IMPRESSION: The patient is admitted to the hospital with mental status changes. The patient did have a slightly elevated white count. With a history of necrotizing pancreatitis , abdominal pain and tenderness in the epigastric area, underlying pancreatitis needs to be ruled out as the patient has no other clinical focus of infection. CT of chest negative for pneumonia. Urine has been negative. No evidence of any colitis. PLAN: 1. We will obtain a CT of the abdomen and pelvis with oral contrast. 2. We will discontinue Unasyn. 3. We will start the patient on Zosyn and continue Levaquin. 4. Will follow up on clinical condition and consider further adjustment of medication if needed. Thank you for this consultation. Will follow this patient along with you. MMODL / IJN: [id number] / MTDJermain
[2016-12-27] MEDS: lamoTRIgine 25 MG TAB PO SCH ×2 (09:17→20:57)
[2016-12-27] MEDS: IOHEXOL 350 MG/ML 25 ML BOTTLE (ORAL USE) PO PRN ×2 (09:18→10:08)
--- NOTE | 2016-12-27 09:19 | US ---
EXAMINATION TYPE: US abdomen limited DATE OF EXAM: 12/27/2016 COMPARISON: CT abdomen pelvis November 23, 2016. CT chest from yesterday. CLINICAL HISTORY: possible gallstones . hx pancreatitis and gallstones per pt EXAM MEASUREMENTS: Liver Length: 20.6 cm Gallbladder Wall: 0.2 cm CBD: 0.4 cm Right Kidney: 11.4 x 4.7 x 5.3 cm Limited due to overlying bowel gas and liver density. Pancreas: Obscured by bowel gas Liver: Measures large;Increased attenuation, decreased visualization of vessels suggestive of fatty infiltrate Gallbladder: mobile echogenic focus' with shadowing noted likely stones Evidence for sonographic Dahl's sign: No CBD: wnl Right Kidney: wnl Pancreas is suboptimally evaluated on images saved. Visualized liver is heterogeneously hyperechoic i n appearance consistent with diffuse fatty infiltration. Gallbladder is poorly distended with shadowi ng mobile luminal gallstones felt present. No pericholecystic fluid or abnormal gallbladder wall thic kening is seen. IMPRESSION: Suboptimal evaluation of pancreas. Diffuse fatty infiltration of liver redemonstrated. Ga llstones without secondary ultrasound evidence for acute cholecystitis.
[2016-12-27 09:41] LABS: ALT 36 U/L (21-72); AST 24 U/L (17-59); Alkaline Phosphatase 118 U/L (38-126); Amylase 77 U/L (30-110); Anion Gap 11 mmol/L; Blood Urea Nitrogen 19 mg/dL (9-20); Calcium 9.2 mg/dL (8.4-10.2); Carbon Dioxide 23 mmol/L (22-30); Chloride 108 mmol/L (98-107); Cholesterol 136 mg/dL (<200); Glucose 88 mg/dL (74-99); HDL Cholesterol 28 mg/dL (40-60); Magnesium 1.9 mg/dL (1.6-2.3); Non-African American GFR(MDRD) >60 (>60 ml/min/1.73 sqM); Potassium 3.9 mmol/L (3.5-5.1); Sodium 142 mmol/L (137-145); Total Bilirubin 0.5 mg/dL (0.2-1.3); Total Protein 6.7 g/dL (6.3-8.2)
--- NOTE | 2016-12-27 11:24 | CT ---
EXAMINATION TYPE: CT abdomen pelvis wo con DATE OF EXAM: 12/27/2016 HISTORY: Abdominal pain and pancreatitis. CT DLP: 905.4 mGycm. Automated Exposure Control for Dose Reduction was Utilized. TECHNIQUE: CT scan of the abdomen and pelvis is performed with oral but without IV contrast. COMPARISON: CT chest from yesterday. CT abdomen and pelvis from November 23, 2016. FINDINGS: Within the limitations of a non-contrast study, the following observations are made. LUNG BASES: There is redemonstration of calcified nodule or granuloma anteriorly in the right lung ba se. There is redemonstration of linear scarring and/or atelectatic change posteriorly in the right aurelio ng base. LIVER/GB: Liver remains diffusely low dense consistent with fatty infiltration. PANCREAS: Pancreas is not suspiciously enlarged. Similar to prior abdominal CT there is ill-defined f luid and fat stranding surrounding mid to distal body suggestive of acute pancreatitis. Some ill-defi jose alfredo fluid layers into the Gerota's fascia and left paracolic and infracolic gutter similar to prior C T. No well-formed fluid collection is present. SPLEEN: Spleen remains mildly enlarged measuring 14.1 cm on long axis on axial image 25. Small splenu le is redemonstrated anteriorly. ADRENALS: No significant abnormality is seen. KIDNEYS: No significant abnormality is seen. BOWEL: Contrast reaches level of the distal sigmoid colon. There is no suspicious small or large rebecca l dilatation. There are some diverticula in the sigmoid colon without CT evidence for acute diverticu litis. There is persistent diffuse mild to moderate wall thickening of stomach in which a diffuse gas tritis cannot be excluded. There is a small 1.3 cm duodenal diverticulum on axial image 37. GENITAL ORGANS: A few scattered left-sided pelvic phleboliths are noted. LYMPH NODES: No greater than 1cm abdominal or pelvic lymph nodes are appreciated. OSSEOUS STRUCTURES: No significant abnormality is seen. OTHER: No significant additional abnormality is seen. IMPRESSION: 1. CT findings suggestive of acute pancreatitis are redemonstrated without significant change from pr ior abdominal CT. No well-formed fluid collection is present.
[2016-12-27] MEDS: BUPRENORPHINE HCL SUBLINGUAL SCH ×2 (12:44→12:56)
[2016-12-27] MEDS: NALOXONE HCL SUBLINGUAL SCH ×2 (12:44→12:56)
--- NOTE | 2016-12-27 12:48 | PN ---
PROGRESS NOTE DATE OF SERVICE: 12/26/2016 INTERVAL HISTORY: This is a progress note. I am covering for Dr. Manzanares. This 41-year-old gentleman was admitted with change in mental status also had COPD and as well as pneumonia and possible sepsis also. CT scan of the chest was done which showed no suspicious infiltrates. Pulmonary and psych and neurology is also following the patient closely. The patient had extensive history of pancreatitis in [facility] also. PHYSICAL EXAM: Alert and oriented times three. Pulse 92, blood pressure 130/70, respiratory 20, temperature 97.4, pulse ox 97% room air. HEENT: Conjunctivae normal. NECK: No jugular venous distention. Cardiovascular: S1, S2. Respiratory: Breath sounds diminished in the bases. A few scattered rhonchi and crackles. ABDOMEN: Soft, nontender. Legs: No edema. No swelling. Central nervous system: No focal deficits. LABS: WBC 12.2, and amylase and lipase noted. Drug screen positive for amphetamines and methamphetamines, benzodiazepines. Alcohol less than 10. ASSESSMENT: 1. Chronic obstructive pulmonary disease acute exacerbation with possible right upper lobe pneumonia. Possible gram-negative with possibly early sepsis present on admission. 2. Change in mental status, acute metabolic encephalopathy present on admission. Improved with antibiotics. 3. History of seizure disorder. 4. History hepatitis C. 5. History of possible acute pancreatitis. 6. Anxiety, bipolar depression. 7. History of recent pancreatitis status post percutaneous drainage of common bile duct at [facility]. 8. Gastroesophageal reflux disorder. 9. History of ETOH. 10.History of prescription drug abuse. RECOMMENDATIONS AND DISCUSSION: Continue current medications, symptomatic treatment, otherwise, psychiatric and pulmonary evaluation appreciated. Continue antibiotics. Prognosis guarded because of multiple complex medical issues. Further recommendations to follow. Dyspnea office thank. MMODL / IJN: [id number] /
--- NOTE | 2016-12-27 12:58 | P.GSCN ---
History of Present Illness Consult date: 12/27/16 Reason for Consult: Pancreatitis History of present illness: Mr. Ralph is a 41-year-old male who was brought in with altered mental status. He states that he was using methamphetamines and took too much. He has an acute on chronic pancreatitis for which he is had some complications with in the past. He had a percutaneous drainage procedure performed at [facility] several months ago when he was hospitalized for his necrotizing pancreatitis. He also had a pancreatic stent placed which he states has been removed. He has known gallstones. He states his abdominal pain is present however is now brought him into the hospital. He states no worse than usual. No other complaints at this time denies nausea vomiting passing normal bowel movements he states he has had no alcohol intake.. Review of Systems Negative other than those noted in history of present illness Past Medical History Past Medical History: COPD, Seizure Disorder Additional Past Medical History / Comment(s): History of seizures-per patient, his last seizure was in 2011, Hepatitis C, Degenerative disc disease in back, possible arthritis in knees, hips and arms. , pancreatitis History of Any Multi-Drug Resistant Organisms: None Reported Past Surgical History: Appendectomy Additional Past Surgical History / Comment(s): Appendectomy-1996, eye surgery- 1998, drain for pancreatitis Past Anesthesia/Blood Transfusion Reactions: No Reported Reaction Past Psychological History: Anxiety, Bipolar, Depression Smoking Status: Current every day smoker Past Alcohol Use History: None Reported Past Drug Use History: Methamphetamine, Prescription Drug Abuse - Past Family History Brother(s) Additional Family Medical History / Comment(s): Chronic alcoholism Sister(s) Additional Family Medical History / Comment(s): Chronic alcoholism Daughter(s) Additional Family Medical History / Comment(s): One daughter healthy Son(s) Additional Family Medical History / Comment(s): One son healthy Father History Unknown: Yes Family Medical History: AICD/Pacemaker, Myocardial Infarction (MD) Additional Family Medical History / Comment(s): Schizophrenia. Per patient, his father at the age of 59 Mother History Unknown: Yes Family Medical History: No Reported History Additional Family Medical History / Comment(s): HPV Medications and Allergies Home Medications Medication Instructions Recorded Confirmed Type Omeprazole 40 mg PO HS 08/25/16 12/25/16 History Buprenorphine HCl/Naloxone HCl 1 film SUBLINGUAL BID 11/23/16 12/25/16 History [Suboxone 4 mg-1 mg Sl Film] Mirtazapine [Remeron] 15 mg PO HS 11/23/16 12/25/16 History OLANZapine [ZyPREXA Zydis] 10 mg PO HS 11/23/16 12/25/16 History lamoTRIgine [LaMICtal] 25 mg PO BID 11/23/16 12/25/16 History Allergies Allergy/AdvReac Type Severity Reaction Status Date / Time codeine Allergy Swelling Verified 12/25/16 23:49 furosemide [From Lasix] Allergy Rash/Hives Verified 12/25/16 23:49 haloperidol [From Haldol] Allergy Unknown Verified 12/25/16 23:49 prochlorperazine Allergy Swelling Verified 12/25/16 23:49 Milk Containing Products AdvReac Severe Diarrhea Verified 12/25/16 23:49 Surgical - Exam Osteopathic Statement: *. No significant issues noted on an osteopathic structural exam other than those noted in the History and Physical/Consult. Vital Signs Temp Pulse Resp BP Pulse Ox 98.7 F 105 H 18 138/82 97 12/25/16 17:54 12/25/16 17:54 12/25/16 17:54 12/25/16 17:54 12/25/16 17:54 - Eyes PERRL - Neck no masses - Respiratory normal expansion, normal respiratory effort - Cardiovascular Rhythm: regular - Abdomen Abdomen: soft, non tender - Integumentary no rash - Neurologic normal coordination, normal sensation - Psychiatric oriented to time, oriented to person, oriented to place Results - Labs 12/27/16 07:57 12/27/16 07:57 Abnormal Lab Results - Last 24 Hours (Table) 12/27/16 12/27/16 Range/Units 07:57 07:57 RDW 16.3 H (11.5-15.5) % Chloride 108 H (98-107) mmol/L Triglycerides 172 H (<150) mg/dL HDL Cholesterol 28 L (40-60) mg/dL Lipase 307 H (23-300) U/L Microbiology - Last 24 Hours (Table) 12/25/16 20:47 Blood Culture - Preliminary Blood No Growth after 24 hours 12/25/16 20:20 Blood Culture - Preliminary Blood No Growth after 24 hours Diabetes panel 12/27/16 Range/Units 07:57 Sodium 142 (137-145) mmol/L Potassium 3.9 (3.5-5.1) mmol/L Chloride 108 H (98-107) mmol/L Carbon Dioxide 23 (22-30) mmol/L BUN 19 (9-20) mg/dL Creatinine 0.84 (0.66-1.25) mg/dL Glucose 88 (74-99) mg/dL Calcium 9.2 (8.4-10.2) mg/dL AST 24 (17-59) U/L ALT 36 (21-72) U/L Alkaline Phosphatase 118 (38-126) U/L Total Protein 6.7 (6.3-8.2) g/dL Albumin 4.0 (3.5-5.0) g/dL Triglycerides 172 H (<150) mg/dL HDL Cholesterol 28 L (40-60) mg/dL Calcium panel 12/27/16 Range/Units 07:57 Calcium 9.2 (8.4-10.2) mg/dL Albumin 4.0 (3.5-5.0) g/dL Pituitary panel 12/27/16 Range/Units 07:57 Sodium 142 (137-145) mmol/L Potassium 3.9 (3.5-5.1) mmol/L Chloride 108 H (98-107) mmol/L Carbon Dioxide 23 (22-30) mmol/L BUN 19 (9-20) mg/dL Creatinine 0.84 (0.66-1.25) mg/dL Glucose 88 (74-99) mg/dL Calcium 9.2 (8.4-10.2) mg/dL Adrenal panel 12/27/16 Range/Units 07:57 Sodium 142 (137-145) mmol/L Potassium 3.9 (3.5-5.1) mmol/L Chloride 108 H (98-107) mmol/L Carbon Dioxide 23 (22-30) mmol/L BUN 19 (9-20) mg/dL Creatinine 0.84 (0.66-1.25) mg/dL Glucose 88 (74-99) mg/dL Calcium 9.2 (8.4-10.2) mg/dL Total Bilirubin 0.5 (0.2-1.3) mg/dL AST 24 (17-59) U/L ALT 36 (21-72) U/L Alkaline Phosphatase 118 (38-126) U/L Total Protein 6.7 (6.3-8.2) g/dL Albumin 4.0 (3.5-5.0) g/dL Assessment and Plan (1) Abdominal pain Status: Acute (2) Acute pancreatitis Status: Acute Plan: Patient has an acute on chronic pancreatitis with history of necrotizing pancreatitis which is treated at [facility]. His pancreatitis is possibly secondary to his gallstones however there is still some inflammation around his pancreas at this time and cholecystectomy is not urgent. Would recommend regular diet and outpatient follow-up with Dr. Smith when medically stable for discharge. No acute surgical intervention planned at this time.
[2016-12-27 14:14] VITALS: BMI 25.1
--- NOTE | 2016-12-27 14:21 | PN ---
PROGRESS NOTE DATE OF SERVICE: 12/27/2016 He has been hemodynamically stable. He has some abdominal pain. On physical examination, respiratory rate of 16, pulse rate 77, temperature 98.1, blood pressure 105/58, O2 saturation on room is 98%. HEENT is unremarkable. Chest reveals occasional wheeze. Cardiovascular system reveals S1, S2. Abdomen is soft. There is no pedal edema. Sodium is 142, potassium 3.9, chloride 108, bicarb 23, amylase 77, which has come down from a high of 167. Lipase is 307. IMPRESSION: 1. Metabolic encephalopathy. 2. CT scan of the chest shows no evidence of pneumonia. 3. Acute pancreatitis. 4. Bronchospasm secondary to asthma with chronic obstructive pulmonary disease with acute exacerbation. At this point in time continue him on Pulmicort, bronchodilators, Levaquin and Zosyn per ID. Nicotrol patch. Increase his activity level. Hopefully will be able to avoid systemic steroids. MMODL / IJN: [id number] /
[2016-12-27] MEDS: LORazepam 1 MG TAB PO PRN (19:02)
[2016-12-27] MEDS: MIRTAZAPINE 15 MG TAB PO SCH (20:57)
[2016-12-27] MEDS ORDERED: FAMOTIDINE 20 MG/2 ML VIAL IV ONE (21:27)
[2016-12-27] MEDS ORDERED: PANTOPRAZOLE 40 MG TABLET PO STA (22:17)
[2016-12-27] MEDS: ACETAMINOPHEN TAB 325 MG TAB PO PRN (22:35)
--- NOTE | 2016-12-28 02:53 | P.PN ---
Subjective Principal diagnosis: AMS Doing well. Tolerating diet. Abdominal pain improved Objective - Vital Signs Vital signs: Vital Signs Temp 97.8 F 12/27/16 23:00 Pulse 80 12/27/16 23:00 Resp 14 12/27/16 23:00 BP 100/48 12/27/16 23:00 Pulse Ox 94 L 12/27/16 23:00 Intake & Output 12/27/16 12/27/16 12/28/16 06:59 18:59 06:59 Intake Total 500 Balance 500 Weight 79.379 kg Intake: Oral 500 Other: Voiding Method Toilet Toilet # Voids 0 4 1 - Constitutional General appearance: Present: cooperative - EENT Eyes: Present: PERRLA - Respiratory Details: nonlabored - Cardiovascular Rhythm: regular - Gastrointestinal Gastrointestinal Comment(s): Soft/NT/ND - Integumentary Integumentary: Absent: calor, cellulitis, cyanotic - Musculoskeletal Musculoskeletal: Present: gait normal - Psychiatric Psychiatric: Present: A&O x's 3 - Labs CBC & Chem 7: 12/27/16 07:57 12/27/16 07:57 Labs: Abnormal Lab Results - Last 24 Hours (Table) 12/27/16 12/27/16 Range/Units 07:57 07:57 RDW 16.3 H (11.5-15.5) % Chloride 108 H (98-107) mmol/L Triglycerides 172 H (<150) mg/dL HDL Cholesterol 28 L (40-60) mg/dL Lipase 307 H (23-300) U/L Microbiology - Last 24 Hours (Table) 12/25/16 20:47 Blood Culture - Preliminary Blood No Growth after 48 hours 12/25/16 20:20 Blood Culture - Preliminary Blood No Growth after 48 hours Assessment and Plan (1) Abdominal pain Status: Acute (2) Acute pancreatitis Status: Acute Plan: Cont. regular diet and outpatient follow-up with Dr. Smith when medically stable for discharge. No acute surgical intervention planned at this time.
[2016-12-28] MEDS: BUDESONIDE 0.5 MG/2 ML NEBU INHALATION SCH ×2 (07:10→20:34)
[2016-12-28] MEDS: IPRATROPIUM-ALBUTEROL 3 ML NEB INHALATION SCH ×4 (07:10→20:34)
[2016-12-28] MEDS: LACTULOSE 20 GM/30 ML CUP PO SCH ×2 (08:10→20:20)
[2016-12-28] MEDS: HEPARIN SODIUM,PORCINE 5,000 UNIT/ML 1 ML VIAL SQ SCH ×2 (08:10→20:20)
[2016-12-28] MEDS: NICOTINE 21MG/24HR PATCH TRANSDERM SCH (08:14)
[2016-12-28] MEDS: lamoTRIgine 25 MG TAB PO SCH ×2 (08:14→20:21)
[2016-12-28] MEDS: AMOXIC-POT CLAV 875-125MG 1 EACH TAB PO SCH (08:15)
[2016-12-28] MEDS: LORazepam 1 MG TAB PO PRN ×2 (08:15→15:14)
[2016-12-28 08:17] LABS: Anisocytosis Slight; Basophils # (A) 0.1 k/uL (0-0.2); Basophils % (A) 1 %; CH 27.5; CHCM 32.6; Eosinophils # (A) 0.5 k/uL (0-0.7); Eosinophils % (A) 8 %; HCT 44.4 % (39.0-53.0); HDW 2.37; Luc # (Auto) 0.11; Luc % (Auto) 2; Lymphocytes % (A) 30 %; MCH 26.7 pg (25.0-35.0); MCHC 31.6 g/dL (31.0-37.0); MCV 84.5 fL (80.0-100.0); Monocytes # (A) 0.4 k/uL (0-1.0); Monocytes % (A) 6 %; Neutrophils # (A) 3.6 k/uL (1.3-7.7); Neutrophils % (A) 53 %; RBC 5.26 m/uL (4.30-5.90); RDW 16.2 % (11.5-15.5); WBC 6.7 k/uL (3.8-10.6); WBC (Perox) 6.89
[2016-12-28 08:30] LABS: ALT 38 U/L (21-72); AST 27 U/L (17-59); Alkaline Phosphatase 117 U/L (38-126); Amylase 76 U/L (30-110); Anion Gap 12 mmol/L; Blood Urea Nitrogen 16 mg/dL (9-20); Calcium 9.5 mg/dL (8.4-10.2); Carbon Dioxide 23 mmol/L (22-30); Chloride 109 mmol/L (98-107); Glucose 87 mg/dL (74-99); Non-African American GFR(MDRD) >60 (>60 ml/min/1.73 sqM); Potassium 4.1 mmol/L (3.5-5.1); Sodium 144 mmol/L (137-145); Total Bilirubin 0.3 mg/dL (0.2-1.3)
--- NOTE | 2016-12-28 11:06 | PN ---
PROGRESS NOTE DATE OF SERVICE: 12/27/2016 I am covering for Dr. Manzanares. HISTORY: This 41-year-old gentleman who was admitted COPD exacerbation, possible right upper lobe pneumonia, is improving significantly. Patient also expressed the desire to go to psych at this time. Pulmonary, Dr. Mccullough, is following the patient closely. Psych evaluation is in progress. Surgery has recommended continuing the current medications. Please note the patient had extensive evaluation and surgery at [facility], which included drainage, acute on chronic pancreatitis. REASON FOR CONSULTATION: CARDIOVASCULAR: As mentioned. GI: As mentioned. : As mentioned. PHYSICAL EXAM: GENERAL: Patient is alert, oriented x3. VITAL SIGN: Pulse 95, blood pressure 130/60, respirations 20, temperature 97.4, pulse ox 92% on room air. HEENT: Conjunctivae normal. NECK: No JVD. CARDIOVASCULAR: S1 and S2 muffled. LUNGS: Clear at the bases. Few scattered rhonchi and rales. ABDOMEN: Soft, nontender, no mass palpable. LYMPH: Diffusely weak. LABORATORY DATA: Amylase 77, lipase 307, sodium 140, potassium 3.9. REVIEW OF SYSTEMS: Cardio system is the patient is a mentioned no systems. MEDICATIONS: 1. DuoNeb q.i.d. and p.r.n. 2. Augmentin. 3. Pulmicort. 5. Lamictal. 6. Ativan. 7. Remeron. ASSESSMENT: 1. Chronic obstructive pulmonary disease acute exacerbation with possible right upper lobe pneumonia with possible gram-negative with early sepsis present on admission. 2. Change in mental status, acute metabolic encephalopathy present on admission, possibly secondary to sepsis, improving with antibiotics. 3. History of seizure disorder. 4. History of hepatitis C. 5. History of possible acute pancreatitis. 6. Acute on chronic pancreatitis. 7. Anxiety, bipolar, depression. 8. History of recent severe pancreatitis status post percutaneous drainage of common bile duct at [facility]. 9. Gastroesophageal reflux disease. 10.History of EtOH. 11.History of prescription drug abuse per chart. DISCUSSION AND RECOMMENDATIONS: Recommend to continued current medications and continue symptomatic treatment. Otherwise, continue the antibiotics at this time. The patient had significant medical issues and possibly early sepsis present on admission, which is improving rapidly with antibiotics. However, I would recommend at least hospital of more than 2 midnights to evaluate and treat the patient in a safe and efficient manner. Psychiatry will be consulted. Once again, as mentioned earlier, the patient has multiple medical issues including lung issues, change in mental status, history of complicated pancreatitis, and other issues. See orders and labs for further evaluation. Multiple consultants are following the patient closely as mentioned earlier. We will follow with surgery. Recommended inpatient admission. Dr. Manzanares will follow. RANDY / LISA: [id number] / PINA
--- NOTE | 2016-12-28 11:37 | CONS ---
PSYCHIATRIC CONSULTATION DATE OF SERVICE: 12/27/2016 PURPOSE FOR CONSULTATION: Evaluate for mental status change. INTERVAL HISTORY: Patient has been doing fair. He had a quiet evening last night. He says he slept fairly well. Today he has been up and about. He is distressed over the fact that he lost his entire monthly check. He apparently gets his check the of the month though received his monthly allotment on December 23. He believes that when he had a blackout somehow the money had disappeared. He was not aware that his drug analysis indicated positive for benzodiazepine and amphetamines and methamphetamines. When I discussed this with him he did say that he had used some Xanax over the last week a few different times. He was on clear about details. He had not previously indicate that he was on Xanax or any other benzodiazepine. He was vague about how and when amphetamines and methamphetamines may have come in the picture. He does suggest that the blackout may relate to his drug use as there is no other clear indications. He is trying to get in touch with his mother in regards to figuring out some support issues for discharge. He is mostly down today relating to his money issues, his psychotropic medications. When I saw the patient, he was in bed sitting up. He gave fair eye contact. Psychomotor activity was a little restless. Speech was clear. His thoughts were coherent and goal directed. His affect was anxious. His mood reserved. He was somewhat distressed. ASSESSMENT: I will continue the current diagnosis and treatment plan. I would continue psychotropic medications the same. The patient does say that he can get in touch with his outpatient psychiatrist, Dr. Orona. He has appointment in place with in 2 weeks though I suggested it might be good to see if he could get in this coming week. From a psychiatric standpoint, it is not clear at this point, that he warrants a psychiatric admission particularly given that he does have outpatient resources. MMODL / IJN: [id number] / PINA
--- NOTE | 2016-12-28 12:52 | PN ---
PROGRESS NOTE DATE OF SERVICE: 12/27/2016 REASON FOR FOLLOW UP: Infection, leukocytosis. INTERVAL HISTORY: The patient is afebrile. Has been breathing comfortably. Complaining of abdominal pain mostly in the epigastric area. Some nausea but no vomiting and no diarrhea. PHYSICAL EXAMINATION: Blood pressure is 113/63 with a pulse of 95, temperature 97.5. He is 95% on room air. General description is middle-aged male, lying in bed, in no distress. RESPIRATORY SYSTEM: Unlabored breathing. Clear to auscultation anteriorly. Heart S1, S2. Regular rate and rhythm. Abdomen: Soft, minimally tender in the epigastric area. LABS: Hemoglobin is 13.3, white count normalized to 9.1 with a BUN of 19, creatinine 0.84. CT abdomen and pelvis did show evidence of pancreatitis but no drainable abscess. IMPRESSION: The patient admitted to the hospital with mental status changes likely secondary to drug overdose in a patient who does have history of necrotizing pancreatitis with pseudocyst and drainage at [facility]. Did have some epigastric pain. A CT abdomen and pelvis shows findings of pancreatitis but no drainable abscess. Currently on Zosyn that will be continued. Continue to monitor closely. MMODL / IJN: [id number] /
[2016-12-28] MEDS: ACETAMINOPHEN TAB 325 MG TAB PO PRN (12:59)
[2016-12-28] MEDS: HYDROcodone/APAP 5-325MG 1 EACH TAB PO PRN (16:39)
--- NOTE | 2016-12-28 18:07 | PN ---
PROGRESS NOTE DATE OF SERVICE: 12/28/16 He was seen again on 12/28/16. He has been hemodynamically stable. He does not complain of any shortness of breath. Today on physical examination, his pulse rate is 60. Temperature 97.4. Respiratory rate 16. O2 sat is 95% on room air. HEENT: Reveals pupils that are equal. No jugular venous distention. Chest is clear. Cardiovascular reveals S1, S2. Abdomen is soft. There is no pedal edema. IMPRESSION: At this time is: 1. Mental status changes secondary to metabolic encephalopathy. 2. Asthma with chronic obstructive pulmonary disease with exacerbation. 3. Doubt pneumonia. 4. Acute pancreatitis. At this point in time from a pulmonary standpoint, we will continue him on current medications, increase activity level. Discharge planning at this time from a pulmonary standpoint is appropriate. RANDY / LISA: [id number] /
--- NOTE | 2016-12-28 19:34 | PN ---
PROGRESS NOTE DATE OF SERVICE: 12/28/2016. REASON FOR FOLLOW UP: Leukocytosis infection. INTERVAL HISTORY: The patient is afebrile. He is breathing comfortably. Complaining of pain mostly in the left lower abdominal area. No nausea or vomiting. He did have some diarrhea yesterday after the CT but does not have any today. No chest pain. Shortness of breath. No cough. EXAMINATION: Blood pressure 141/79 with a pulse of 57. Temperature 97.4. He is 96% on room air. General description is a middle aged male, lying in bed, in no distress. RESPIRATORY SYSTEM: Unlabored breathing. Clear to auscultation anteriorly. Heart is S1, S2. Regular rate and rhythm. ABDOMEN: Soft, tender in the left lower quadrant area, mild. No epigastric tenderness. LABS: Hemoglobin is 14, white count 6.7, BUN 15, creatinine 0.80. The patient blood cultures remained negative. DIAGNOSTIC IMPRESSION AND PLAN: Patient admitted to the hospital with unresponsiveness from drug overdose in a patient who did have a history of necrotizing pancreatitis. The patient culture so far negative. Antibiotic has been switched to Augmentin by the primary team. Need to monitor closely. Continue supportive care. MMODL / IJN: [id number] /
[2016-12-28] MEDS: PANTOPRAZOLE 40 MG TABLET PO SCH (20:21)
[2016-12-28] MEDS: MIRTAZAPINE 15 MG TAB PO SCH (20:22)
[2016-12-29] MEDS: AMOXIC-POT CLAV 875-125MG 1 EACH TAB PO SCH (08:21)
[2016-12-29] MEDS: LACTULOSE 20 GM/30 ML CUP PO SCH ×2 (08:21→21:07)
[2016-12-29] MEDS: LORazepam 1 MG TAB PO PRN ×2 (08:21→15:34)
[2016-12-29] MEDS: lamoTRIgine 25 MG TAB PO SCH ×2 (08:21→21:07)
[2016-12-29] MEDS: NICOTINE 21MG/24HR PATCH TRANSDERM SCH (08:21)
[2016-12-29] MEDS: HEPARIN SODIUM,PORCINE 5,000 UNIT/ML 1 ML VIAL SQ SCH ×2 (08:21→21:07)
[2016-12-29] MEDS: HYDROcodone/APAP 5-325MG 1 EACH TAB PO PRN ×2 (08:22→21:10)
[2016-12-29] MEDS: IPRATROPIUM-ALBUTEROL 3 ML NEB INHALATION SCH ×4 (08:50→20:19)
[2016-12-29] MEDS: BUDESONIDE 0.5 MG/2 ML NEBU INHALATION SCH ×2 (08:50→20:19)
--- NOTE | 2016-12-29 08:50 | PN ---
PROGRESS NOTE DATE OF SERVICE: 12/28/2016 I am covering for Dr. Manzanares. This 41-year-old gentleman who was admitted with chronic obstructive pulmonary disease acute exacerbation also had a possible right upper lobe pneumonia on admission, which is improving significantly. Patient also has some suicidal ideations per her mother who is going to petition for possible inpatient psych admission. Pulmonary Dr. Jolynn Mccullough is following the patient closely. Please note the patient also had extensive evaluation at [facility] regarding necrotizing pancreatitis including drainage at this time. The patient admits to using multiple substances including crystal meth at this time. Much more alert and oriented currently. EXAM: On exam, pulse 93, blood pressure 115/69, respirations 20, temperature 98.8, pulse ox 96% on room air. HEENT: Conjunctivae normal. NECK: No jugular venous distention. CARDIOVASCULAR: S1, S2 muffled. RESPIRATORY: Breath sounds diminished on the bases. A few scattered rhonchi and crackles. ABDOMEN: Soft. Mild diffuse discomfort. LEGS: No edema. NERVOUS SYSTEM: No focal deficits. LABS: CBC within normal limits. Sodium 144, otherwise albumin is 4.2. ASSESSMENT: 1. Chronic obstructive pulmonary disease acute exacerbation with a possible right upper lobe pneumonia with possibly gram-negative and early sepsis present on admission. 2. Change in mental status, acute metabolic acidosis present on admission, multifactorial, possibly sepsis, improved with antibiotics. 3. History of seizure disorder. 4. History of possible polysubstance abuse. 5. History of hepatitis C. 6. History of possible acute pancreatitis present on admission. 7. History of chronic pancreatitis. 8. History of anxiety and depression. 9. History of recent severe pancreatitis and status post percutaneous drainage of the common bile duct at [facility]. 10.Gastroesophageal reflux disease. 11.History of ETOH. 12.History of prescription drug abuse per chart. RECOMMENDATIONS AND DISCUSSION: I recommend to continue current medications, continue symptomatic treatment. Otherwise repeat labs. Dr. Manzanares will follow. As mentioned earlier, the mother is petitioning the patient. We will continue to follow with psych for possible inpatient psych referral. Further recommendations to follow. MMODL / IJN: [id number] /
[2016-12-29 09:26] LABS: Anisocytosis Slight; Basophils % (A) 1 %; CH 27.7; CHCM 33.6; Eosinophils # (A) 0.6 k/uL (0-0.7); Eosinophils % (A) 8 %; HDW 2.41; Luc # (Auto) 0.11; Luc % (Auto) 1; Lymphocytes # (A) 1.4 k/uL (1.0-4.8); Lymphocytes % (A) 18 %; MCHC 32.5 g/dL (31.0-37.0); MCV 82.8 fL (80.0-100.0); Mean Platelet Volume 9.6; Monocytes # (A) 0.3 k/uL (0-1.0); Monocytes % (A) 4 %; Neutrophils # (A) 5.5 k/uL (1.3-7.7); Neutrophils % (A) 69 %; RBC 5.19 m/uL (4.30-5.90); WBC (Perox) 8.04
[2016-12-29 09:37] LABS: ALT 36 U/L (21-72); AST 23 U/L (17-59); Alkaline Phosphatase 103 U/L (38-126); Amylase 160 U/L (30-110); Anion Gap 9 mmol/L; Blood Urea Nitrogen 14 mg/dL (9-20); Calcium 9.5 mg/dL (8.4-10.2); Carbon Dioxide 23 mmol/L (22-30); Chloride 110 mmol/L (98-107); Glucose 107 mg/dL (74-99); Non-African American GFR(MDRD) >60 (>60 ml/min/1.73 sqM); Sodium 142 mmol/L (137-145); Total Bilirubin 0.3 mg/dL (0.2-1.3)
--- NOTE | 2016-12-29 14:23 | PN ---
PROGRESS NOTE DATE OF SERVICE: 12/29/2016 He has been hemodynamically stable. He is less short of breath, but continues to complain of abdominal pain. PHYSICAL EXAMINATION: His vitals are stable. He is afebrile. His chest reveals occasional rhonchi on the left. Cardiovascular system reveals an S1, S2. Abdomen is soft. There is no edema. IMPRESSION: 1. Acute on chronic pancreatitis. 2. Metabolic encephalopathy. 3. No evidence of pneumonia. 4. Bronchospasm. Continue bronchodilators, aerosolized steroids, pain control. Increase his activity level. His prognosis at this time is fair. MMODL / IJN: [id number] /
--- NOTE | 2016-12-29 15:23 | P.PN ---
Progress Note - Text Interval History: Patient is a 41-year-old male who is being seen in follow-up to a consultation done by Dr. Mirza. Patient was admitted to the medical floor for respiratory problems. Patient states that he is unclear about what occurred prior to his admission. Patient states she been using methamphetamine for one week prior to admission. Patient had been on Suboxone due to his opiate abuse in the past and had been taking it for the last 8 months. Patient denies any history of benzodiazepine or alcohol abuse in the past. Patient states that he is feeling down now as he lost all of his rent money and all the money that he had from Social Security disability for the month of December prior to his admission he is unclear about how that occurred. Patient states he has been seeing a psychiatrist in the community is prescribing the Suboxone as well as Lamictal 25 mg twice a day, Zyprexa 10 mg at bedtime and Remeron 15 mg at bedtime for what he states is possibly bipolar disorder. Patient stated to me that he was not currently suicidal but states he lives alone and has no one to talk to and if he was discharged he would think about suicide and may make an attempt. Mental Status: Appearance/Attitude: Patient is lying in a hospital bed and in no acute distress, he was cooperative Behavior: Patient does not display any psychomotor agitation or retardation. Speech/Language: Patient's speech is spontaneous and of normal volume and rhythm and he is coherent Thought Process: Patient is goal directed, no circumstantial or tangential speech Thought Content: Patient denies any AH/VH and no delusions or paranoid ideation were elicited. Patient states that he lives alone and is feeling depressed due to losing all of his money for the month of December states he has no one to talk to and fears that if he goes home he will become suicidal and may act on his thoughts. Patient states he is sleeping and eating well. Suicidal/Homicidal Ideation: Patient denies any current suicidal or homicidal ideation but states if he goes home he may become suicidal and act on those thoughts. Sensorium/Cognition: Patient is alert and oriented to person, place, and time and his memory is grossly intact. Mood/Affect: Patient's mood is slightly depressed and his affect is appropriate. Insight/Judgement: Patient's insight and judgement are fair. Assessment: [Patient states that he is not feeling comfortable being discharged home because he lives alone and has no one to talk to and fears that if he goes home he will think of suicide and may act on his thoughts. Patient has been seen by a private psychiatrist in the community was been prescribing Suboxone for the patient for the last 8 months for his opiate abuse history. Patient abused methamphetamine for the last week prior to admission and has no recollection of the events occurred prior to his admission and states that he lost all of the money he received from Social Security disability for the month of December. Patient has also been treated with Lamictal 25 mg twice a day, Zyprexa 10 mg at bedtime and Remeron 15 mg at bedtime. Plan: Patient states that he is willing to sign into the hospital on a voluntary basis, his mother had filed a petition and he was aware of this. Patient is agreeable to sign a voluntary admission form and could benefit from hospitalization to stabilize his mood. Patient should be restarted on Lamictal 25 mg twice a day, Zyprexa 10 mg at bedtime and Remeron 15 mg at bedtime which were his prior medications. I discussed with the patient that we do not use Suboxone in the hospital and he was aware of this and I also reviewed with him that policy regarding pain medication on the inpatient psychiatric unit and that he would only be receiving Bolton 53 times a day on an as-needed basis. I would also recommend that when the patient is transferred to the psychiatric unit that he not be continued on Ativan when necessary.]
--- NOTE | 2016-12-29 20:59 | PN ---
PROGRESS NOTE DATE OF SERVICE: 12/29/2016. REASON FOR FOLLOWUP: Pancreatitis with leukocytosis. INTERVAL HISTORY: The patient is afebrile, has been breathing comfortably. Abdominal pain has been about the same with no worsening. No nausea or vomiting and no diarrhea. EXAMINATION: Blood pressure 136/60 with a pulse of 94, temperature 98.2. He is 94% on room air. General description is a middle-aged male, lying in bed in no distress. RESPIRATORY SYSTEM: Unlabored breathing. Clear to auscultation anteriorly. HEART: S1, S2. Regular rate and rhythm. ABDOMEN: Soft. Minimally on the left side. No guarding or rigidity. LABS: Hemoglobin is 14, white count 8.0 with a BUN of 14, creatinine 0.73. DIAGNOSTIC IMPRESSION AND PLAN: The patient admitted hospital with mental status changes likely from drug overdose. 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 Some inflammation was seen on the pancreatitis, although the patient is currently not running any fever. His slightly elevated white count, though, has normalized. Culture has been negative. Currently short course of oral Augmentin will be continued with outpatient follow up with Surgery. MMODL / IJN: [id number] /
[2016-12-29] MEDS: PANTOPRAZOLE 40 MG TABLET PO SCH (21:06)
[2016-12-29] MEDS: MIRTAZAPINE 15 MG TAB PO SCH (21:07)
[2016-12-30] MEDS: BUDESONIDE 0.5 MG/2 ML NEBU INHALATION SCH (08:02)
[2016-12-30] MEDS: IPRATROPIUM-ALBUTEROL 3 ML NEB INHALATION SCH (08:02)
[2016-12-30 08:04] VITALS: BP 112/67; PULSE 78; RESP 16; TEMP 97.2
[2016-12-30] MEDS: LORazepam 1 MG TAB PO PRN (08:28)
[2016-12-30] MEDS: HYDROcodone/APAP 5-325MG 1 EACH TAB PO PRN (08:28)
[2016-12-30] MEDS: LACTULOSE 20 GM/30 ML CUP PO SCH (08:29)
[2016-12-30] MEDS: HEPARIN SODIUM,PORCINE 5,000 UNIT/ML 1 ML VIAL SQ SCH (08:29)
[2016-12-30] MEDS: lamoTRIgine 25 MG TAB PO SCH (08:30)
[2016-12-30] MEDS: AMOXIC-POT CLAV 875-125MG 1 EACH TAB PO SCH (08:30)
[2016-12-30] MEDS: NICOTINE 21MG/24HR PATCH TRANSDERM SCH (08:30)
[2016-12-30 08:59] LABS: Basophils # (A) 0.1 k/uL (0-0.2); Basophils % (A) 1 %; CH 27.9; CHCM 33.8; Eosinophils # (A) 0.6 k/uL (0-0.7); Eosinophils % (A) 6 %; HCT 41.3 % (39.0-53.0); HDW 2.38; HGB 13.7 gm/dL (13.0-17.5); Luc # (Auto) 0.16; Luc % (Auto) 2; Lymphocytes # (A) 2.2 k/uL (1.0-4.8); Lymphocytes % (A) 23 %; MCH 27.4 pg (25.0-35.0); MCHC 33.1 g/dL (31.0-37.0); MCV 82.8 fL (80.0-100.0); Mean Platelet Volume 9.9; Monocytes # (A) 0.5 k/uL (0-1.0); Monocytes % (A) 5 %; Neutrophils # (A) 6.1 k/uL (1.3-7.7); Neutrophils % (A) 63 %; RBC 4.99 m/uL (4.30-5.90); RDW 15.9 % (11.5-15.5); WBC 9.6 k/uL (3.8-10.6)
[2016-12-30 09:34] LABS: ALT 34 U/L (21-72); AST 24 U/L (17-59); Alkaline Phosphatase 101 U/L (38-126); Amylase 153 U/L (30-110); Anion Gap 14 mmol/L; Blood Urea Nitrogen 18 mg/dL (9-20); Calcium 9.6 mg/dL (8.4-10.2); Carbon Dioxide 21 mmol/L (22-30); Chloride 108 mmol/L (98-107); Glucose 122 mg/dL (74-99); Non-African American GFR(MDRD) >60 (>60 ml/min/1.73 sqM); Potassium 4.1 mmol/L (3.5-5.1); Sodium 143 mmol/L (137-145); Total Bilirubin 0.3 mg/dL (0.2-1.3); Total Protein 7.3 g/dL (6.3-8.2)
--- NOTE | 2016-12-30 11:32 | PN ---
PROGRESS NOTE DATE OF SERVICE: 12/30/2016. REASON FOR FOLLOWUP: Leukocytosis and pancreatitis infection. INTERVAL HISTORY: The patient is afebrile. He is feeling better. Breathing comfortably. Denies significant chest pain, shortness of breath, no cough. Abdominal pain has improved. No nausea, vomiting and no diarrhea. PHYSICAL EXAMINATION: Blood pressure 112/67 with a pulse is 78, temperature 97.2. He is 94% on room air. General description is a middle-aged male lying in bed, in no distress. RESPIRATORY SYSTEM: Unlabored breathing. Clear to auscultation anteriorly. HEART: S1, S2. Regular rate and rhythm. ABDOMEN: Soft. Minimal tenderness. LABS: Hemoglobin 13.7, white count of 9.6 with a BUN of 18, creatinine 0.79. The lipase is down to 679. DIAGNOSTIC IMPRESSION AND PLAN: Patient admitted to the hospital with changes secondary to drug use. 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 The patient did have a elevated lipase was trending down. Currently on oral Augmentin. Patient with no fever and no elevated white count. Clinically doubt significant infective changes to the pancreatic bed. Will continue to monitor closely. Continue supportive care. MMODL / IJN: [id number] /
--- NOTE | 2017-01-05 14:19 | DS ---
DISCHARGE SUMMARY CHIEF COMPLAINT: Abdominal pain, altered mental status and major depression. HISTORY OF PRESENT ILLNESS AND PHYSICAL EXAM: Details of this man's history and physical can be found in the initial workup. LABORATORY STUDIES: While he was in the hospital he had laboratory studies, details of which can be found in the laboratory section of his chart. COURSE IN HOSPITAL: After admission, he was placed on bed rest, started on intravenous fluids and was seen in consultation by Psychiatry. It is felt that his problem was major depression and he was transferred to the psych unit. FINAL DIAGNOSES: 1. Abdominal pain. 2. Gastritis. 3. Mental status changes. 4. Major depression. OPERATIONS: None. CONSULTATION: Psychiatry. He is improved. MMODL / IJN: [id number] /
--- NOTE | 2017-01-13 09:25 | CDI ---
In responding to this query, please exercise your independent professional judgment. The [facility] Coding Staff and Clinical Documentation Specialists appreciate your assistance in clarifying documentation, maintaining compliance with coding guidelines, accurately documenting patients condition and capturing severity of illness. The fact that a question is asked does not imply that any particular answer is desired or expected. Communication forms are a method of clarifying documentation and are not made part of the Legal Health Record. Thank you in advance for your clarification. Last Revision, February [address] [facility] [place] [address] Documentation Clarification Form Date: 01/13/2017 8:46:00 AM From: Debby Lui Phone: Admit Date: 12/27/2016 3:26:00 PM Patient Name: Juan Ralph Visit Number: [id number] Discharge Date: Dr. Hilton Page documented possible early sepsis in the H&P and in his progress notes but it is not documented in the discharge summary. Patient history/risk factors: Per the H&P, the patient had a possible right upper lobe pneumonia possibly gram negative. Clinical Indicators: Metabolic encephalopathy Lab findings: WBC 12.2, lactic acid 0.8 Radiology findings: Chest X-ray on 12/25 shows New right upper lobe pneumonia compared to old exam. Vital Signs: T. 96.8, P. 94, R. 20, BP 122/70 Treatment: IV Levofloxacin, IV Piperacillin/Tazobactam Consults: Dr. Escamilla documents that CT of chest is negative for pneumonia. In your professional opinion, can you please clarify if Sepsis was Ruled In or Ruled Out? Other Unable to determine Please document in your discharge summary in order to capture severity of illness and risk of mortality. Include clinical findings that support your diagnosis. FYI: Press F11 to launch patient chart. If you have a question about this query, contact Sulma Laws, legal department manager at [phone] between 8am and 5pm. PINA
--- NOTE | 2017-01-18 08:25 | CDI ---
In responding to this query, please exercise your independent professional judgment. The [facility] Coding Staff and Clinical Documentation Specialists appreciate your assistance in clarifying documentation, maintaining compliance with coding guidelines, accurately documenting patients condition and capturing severity of illness. The fact that a question is asked does not imply that any particular answer is desired or expected. Communication forms are a method of clarifying documentation and are not made part of the Legal Health Record. Thank you in advance for your clarification. Last Revision, February 2015 Dudley Quintana [address] [facility] [address] Documentation Clarification Form Date: 01/13/2017 8:46:00 AM From: Debby Lui Phone: Admit Date: 12/27/2016 3:26:00 PM Patient Name: Juan Ralph Visit Number: [id number] Discharge Date: Dr. Hilton Manzanares Thank you for signing the previous query. Please document a response in your discharge summary before signing this query. Dr. Page documented possible early sepsis in the H&P and in his progress notes but it is not documented in the discharge summary. Patient history/risk factors: Per the H&P, the patient had a possible right upper lobe pneumonia possibly gram negative. Clinical Indicators: Metabolic encephalopathy Lab findings: WBC 12.2, lactic acid 0.8 Radiology findings: Chest X-ray on 12/25 shows New right upper lobe pneumonia compared to old exam. Vital Signs: T. 96.8, P. 94, R. 20, BP 122/70 Treatment: IV Levofloxacin, IV Piperacillin/Tazobactam Consults: Dr. Escamilla documents that CT of chest is negative for pneumonia. In your professional opinion, can you please clarify if Sepsis was Ruled In or Ruled Out? Other Unable to determine Please document in your progress notes and discharge summary in order to capture severity of illness and risk of mortality. Include clinical findings that support your diagnosis. FYI: Press F11 to launch patient chart. PINA
== END 2016-12-30 10:23 ==
LOC: EC 17:08 → 3OBS 22:36 → 4MS4W 12-26 03:13 → INTOOBSV 12-27 15:26 → OBSVTOIN 12-27 15:26 → 4MS4W 12-29 22:37 → UNDODISIN 12-30 10:23
PROVIDERS: ADMIT Family Medicine; ATTEND Family Medicine
DX: A41.9 Sepsis, unspecified organism (principal); G93.41 Metabolic encephalopathy; J15.6 Pneumonia due to other Gram-negative bacteria; K85.90 Acute pancreatitis without necrosis or infection, unspecified; E87.2 Acidosis; K86.1 Other chronic pancreatitis; J44.1 Chronic obstructive pulmonary disease with (acute) exacerbation; J44.0 Chronic obstructive pulmonary disease with (acute) lower respiratory infection; B18.2 Chronic viral hepatitis C; F25.9 Schizoaffective disorder, unspecified; F11.10 Opioid abuse, uncomplicated; F15.90 Other stimulant use, unspecified, uncomplicated; F17.200 Nicotine dependence, unspecified, uncomplicated; F41.9 Anxiety disorder, unspecified; G40.909 Epilepsy, unspecified, not intractable, without status epilepticus; K21.9 Gastro-esophageal reflux disease without esophagitis; K80.20 Calculus of gallbladder without cholecystitis without obstruction; M15.9 Polyosteoarthritis, unspecified; F32.9 Major depressive disorder, single episode, unspecified; Z79.899 Other long term (current) drug therapy; Z88.5 Allergy status to narcotic agent; Z88.8 Allergy status to other drugs, medicaments and biological substances; Z82.49 Family history of ischemic heart disease and other diseases of the circulatory system
CPT/HCPCS: 36415; 70450; 71020; 71250; 74176; 76705; 80053; 80061; 80306; 80320; 81003; 82140; 82150; 82550; 82553; 83605; 83690; 83735; 84484; 85025; 85610; 85730; 87040; 93005; 96360; 96361; 96365; 96366; 96367; 96375; 96376; 99285

== ENCOUNTER 2016-12-30 09:18 | Inpatient (IN) | payer MEDICAID, OTHER ==
[2016-12-30] MEDS ORDERED: MAG HYDROX/AL HYDROX/SIMETH 30 ML CUP PO PRN (10:46)
[2016-12-30] MEDS ORDERED: ACETAMINOPHEN TAB 325 MG TAB PO PRN (10:46)
[2016-12-30] MEDS ORDERED: MAGNESIUM HYDROXIDE 2,400 MG/10 ML CUP PO PRN (10:46)
[2016-12-30 11:13] VITALS: BMI 31.3
[2016-12-30] MEDS: IPRATROPIUM-ALBUTEROL 3 ML NEB INHALATION SCH ×3 (13:15→19:55)
--- NOTE | 2016-12-30 15:45 | P.HP ---
Psychiatric H&P - . H&P Date: 12/30/16 History & Physical: Allergies Allergy/AdvReac Type Severity Reaction Status Date / Time codeine Allergy Swelling Verified 12/30/16 11:27 furosemide [From Lasix] Allergy Rash/Hives Verified 12/30/16 11:27 haloperidol [From Haldol] Allergy Unknown Verified 12/30/16 11:27 prochlorperazine Allergy Swelling Verified 12/30/16 11:27 Milk Containing Products AdvReac Severe Diarrhea Verified 12/30/16 11:27 Vital Signs Temp 98.6 F 12/30/16 10:56 Pulse 85 12/30/16 10:56 Resp 20 12/30/16 10:56 BP 131/76 12/30/16 10:56 Pulse Ox Intake & Output 12/29/16 12/30/16 12/30/16 18:59 06:59 18:59 Weight 99.1 kg Laboratory Last Values Ammonia 12 umol/L (<30) 12/30/16 11:17 12/30/16 15:25 Identification: Patient is a 41-year-old male who came to the emergency room confused and was admitted to the hospital for treatment of a pneumonia. While on the inpatient unit he was seen and reported that he was having suicidal ideation and did not feel safe returning home and so was transferred to the History of Present Illness: patient states that he had been seeing a Dr. Ya for 3-4 months prior to that the patient had been followed at [facility]. Patient states that he was doing well on Lamictal 100 mg twice a day, olanzapine 10 mg at bedtime and Remeron 15 mg at bedtime. He states that the medications had been consistent for the last several months. Patient states he was also taking Suboxone and had been on it for 8 months. He states prior to admission he was lonely due to his being in [facility] and bored and decided it would be a good idea to do some methamphetamine and acid. States that he used methamphetamine for 3 days prior to his admission and acid Wednesday prior to admission. Patient has no recollection of what occurred on those days and states that he lost all of his money from Social Security disability for the month of December and is unclear what occurred with the money. Patient reports that he is feeling depressed with decrease in his motivation, wanting to stay in bed and his appetite is fair to poor due to pain that he has from his pancreatitis. Patient states that he is up frequently at night and not sleeping well. Patient reported to me that he has no current suicidal ideation, plan or intent to act but wonders if there is a point to his life. Patient is unable to endorse any manic symptoms currently or in the past and does not endorse any psychotic symptoms currently or in the past. Patient states when he was using medication in the past and was high he did have a lot of energy but that was always when he was using drugs.] Past Psychiatric History: patient states that he has been admitted at least 10 times in the last 8 years when he began seeking treatment for depression. Patient states that he had suicidal ideation that precipitated his first hospital admission in his most recent was here in April 2016. Patient reports no prior history of suicide attempts. Patient states that he was at [facility] for rehab for 5 days in 2003. Past Medical/Surgical History: Patient has a history of COPD, seizure disorder his last seizure occurred 2 years ago and he states that this was related to his opiate use, patient has chronic pancreatitis secondary to a biliary obstruction and recently had pseudocyst drained and had an infection and was admitted here the medical floor the beginning of November of this year for treatment. Patient states he has hepatitis C which was treated with interferon in the past. Home Medications Medication Instructions Recorded Confirmed Omeprazole 40 mg PO HS 08/25/16 12/30/16 Buprenorphine HCl/Naloxone HCl 1 film SUBLINGUAL BID 11/23/16 12/30/16 [Suboxone 4 mg-1 mg Sl Film] Mirtazapine [Remeron] 15 mg PO HS 11/23/16 12/30/16 OLANZapine [ZyPREXA Zydis] 5 - 10 mg PO HS 11/23/16 12/30/16 lamoTRIgine [LaMICtal] 100 mg PO BID 12/30/16 12/30/16 Family History: Patient states his father was diagnosed with schizophrenia, 2 brothers have alcohol problems and no one has completed suicide in the family. Social History: Patient states he was born and raised in [place], his father is and his mother is alive as are his 2 brothers. Patient completed high school and enlisted in the [employer] where he served for 4 years and was discharged after he bounced a check as a general discharge under honorable conditions. 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 Patient is supported on Social Security disability due to his diagnosis of depression. Patient has been 3 times his first marriage lasted for 7 years and he has 2 children ages 17 and 18 who are living in [place] with her mother, his second marriage lasted for 3 years and they had no children. His current marriage has been for 8 years there are no children from this marriage and his is in [facility] for selling crystal methamphetamine and will not be eligible for parole until 2019. Patient has been living alone in his apartment and is supported with Social Security disability. Patient denies any abuse history. Substance Use History: Patient states he began using alcohol at the age of 18 and used it once a month last use was 5 years ago. Patient began using marijuana at the age of 17 and last used 10 years ago. Patient has used methamphetamine for the last 2 weeks and this he states was the first time he ever used. Patient states that he used cocaine on and off in the past with last use was 7 years ago. Patient used heroin IV for 6 months 10 years ago. Patient states that he began using pain pills 15 years ago and was using them for the last 15 years until 8 months ago he was placed on Suboxone. Patient states that he also used benzodiazepines purchasing Xanax on the street and last used 8 months ago. He reports he used acid one time this was the day prior to his admission. Patient reports that he does use tobacco products. Legal History: Patient states he was in [facility] for 1 year for Manufacturing delivery of an analog drug and was released in October 2015. He has also been charged with possession of marijuana and paraphernalia. Patient also has one DUI Mental Status:Appearance/Attitude: Patient is appropriately dressed, makes good eye contact and is cooperative. Behavior: Patient does not display any psychomotor agitation or retardation. Speech/Language: Patient's speech is spontaneous and of normal volume and rhythm and he is coherent. Thought Process: Patient is goal-directed and there is no evidence of circumstantial or tangential thought and no loose associations or flight of ideas. Thought Content: Patient denies any auditory or visual hallucinations no delusions or paranoid ideation were elicited. Patient states that he has decreased and his motivation and energy and would like to stay in bed all day, he reports a poor appetite due to the pain secondary to his pancreatitis. Patient states his sleep is disrupted and he feels tired on awakening. Suicidal/Homicidal Ideation: Patient denies any current suicidal or homicidal ideation but states that he wonders if there is a point to his life. Sensorium/Cognition: Patient is alert and oriented to person, place, and time and his memory is grossly intact. Mood/Affect: Patient's mood is depressed and his affect is appropriate. Insight/Judgement: Patient's insight and judgment are fair. Intellectual Functioning: Patient's intellectual functioning appears average. Strength/Weaknesses: Patient has a place to live, source of financial support, compliance with follow-up care/use of drugs, minimal support Assessment: Patient presents after transfer from the medical floor where he was admitted for pneumonia and was treated with antibiotics and is continuing to be on them. Patient reports that he got the idea of using methamphetamine and acid due to feeling lonely and bored and wanting to get high for some excitement. Patient has no recollection of this event and states that he lost all of his money for the month of December when he went out to use drugs. Patient states that he was doing well on Suboxone and his prior medications. 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 Medical consultation was requested and the patient was placed on routine observations and was ordered group and activity therapy. Patient was continued on his prior medication of olanzapine 10 mg at bedtime and Remeron 15 mg at bedtime. Patient 's Lamictal dose had been decreased when he was admitted to the medical floor and he will be continued on Lamictal 25 mg twice a day and this will need to be titrated back to his prior dose once he is discharged from the hospital. Patient stated that he is not interested in going to rehab and wants to return to his private psychiatrist at the time of discharge and states he will live with his mother after he is discharged. Patient requires hospitalization to stabilize his mood
[2016-12-30] MEDS: BUDESONIDE 0.5 MG/2 ML NEBU INHALATION SCH (19:55)
[2016-12-30] MEDS ORDERED: OLANZapine ODT 10 MG TAB PO SCH (21:00)
[2016-12-30] MEDS: LACTULOSE 20 GM/30 ML CUP PO SCH (21:25)
[2016-12-30] MEDS: HYDROcodone/APAP 5-325MG 1 EACH TAB PO PRN (21:26)
[2016-12-30] MEDS: OLANZapine 10 MG TAB PO SCH (21:26)
[2016-12-30] MEDS: MIRTAZAPINE 15 MG TAB PO SCH (21:26)
[2016-12-30] MEDS: lamoTRIgine 25 MG TAB PO SCH (21:26)
[2016-12-30] MEDS: PANTOPRAZOLE 40 MG TABLET PO SCH (21:26)
[2016-12-31 07:03] VITALS: BP 109/50; PULSE 70; RESP 16; TEMP 97.9
[2016-12-31] MEDS: HYDROcodone/APAP 5-325MG 1 EACH TAB PO PRN ×3 (08:15→20:56)
[2016-12-31] MEDS: LACTULOSE 20 GM/30 ML CUP PO SCH ×2 (08:17→20:55)
[2016-12-31] MEDS: lamoTRIgine 25 MG TAB PO SCH ×2 (08:17→20:55)
[2016-12-31] MEDS: NICOTINE 21MG/24HR PATCH TRANSDERM SCH (08:17)
[2016-12-31] MEDS: IPRATROPIUM-ALBUTEROL 3 ML NEB INHALATION SCH ×4 (08:25→18:55)
[2016-12-31] MEDS: BUDESONIDE 0.5 MG/2 ML NEBU INHALATION SCH ×2 (08:25→18:55)
[2016-12-31] MEDS ORDERED: AMOXIC-POT CLAV 875-125MG 1 EACH TAB PO SCH (09:00)
--- NOTE | 2016-12-31 11:29 | P.PN ---
Progress Note - Text Interval History: Patient is a 41-year-old male who was seen today and he reports that he spent yesterday in bed due to feeling tired and feels more rested today. Patient reports his appetite is good but he continues to have some stomach pain after eating she states is been a persistent problem secondary to his pancreatitis. Patient reports that he is no longer feeling suicidal and did not have any psychotic symptoms. Patient states that he is feeling closer to his baseline and slept better last night once he was restarted on the Zyprexa. Patient states that upon discharge he will probably live with his mother for a week and then return to his apartment. He states that he is going to return to his prior physician to receive Suboxone and his other psychiatric medications. Mental Status: Appearance/Attitude: Patient was appropriately dressed and made good eye contact and was cooperative. Behavior: Patient did not display any psychomotor agitation or retardation. Speech/Language: Patient's speech is spontaneous and a normal volume and rhythm and he was coherent. Thought Process: Patient was goal-directed and there is no evidence of circumstantial or tangential thought loose associations or flight of ideas. Thought Content: Patient denied any auditory or visual hallucinations no delusions or paranoid ideation were elicited. Patient states that he feels rested this morning and slept better last evening. Patient states his appetite is good but he continues to have stomach pain secondary to his pancreatitis. Patient states he is not feeling hopeless or helpless. Suicidal/Homicidal Ideation: Patient denied any current suicidal or homicidal ideation. Sensorium/Cognition: Patient is alert and oriented to person, place, and time and his memory is grossly intact. Mood/Affect: Patient's mood is euthymic and his affect is appropriate. Insight/Judgement: Patient's insight and judgment are fair. Assessment: Patient is no longer feeling depressed and denies any suicidal ideation and states that he is sleeping much better. Patient reports continued stomach pain after eating secondary to his pancreatitis. Patient feels that he is feeling better and able to think about discharge. Plan: Patient will continue on Zyprexa 10 mg at bedtime, Lamictal 25 mg twice a day and Remeron 15 mg at bedtime. Patient and I discussed discharge and he was agreeable to return home tomorrow. Patient will continue with his prior physician Dr. Ornelas any states that he will continue on Suboxone as sufficient at home. Patient states he will probably live with his mother for one week prior to returning to his own apartment. We'll contact his primary care physician to find out how much longer the patient needs to continue on antibiotic treatment. Patient was also informed to contact his primary care physician and set up a follow-up appointment for next week.
[2016-12-31] MEDS: OLANZapine 10 MG TAB PO SCH (20:55)
[2016-12-31] MEDS: MIRTAZAPINE 15 MG TAB PO SCH (20:55)
[2016-12-31] MEDS: PANTOPRAZOLE 40 MG TABLET PO SCH (20:55)
[2016-12-31] MEDS: AMOXIC-POT CLAV 875-125MG 1 EACH TAB PO SCH (20:55)
[2017-01-01] MEDS: NICOTINE 21MG/24HR PATCH TRANSDERM SCH (08:06)
[2017-01-01] MEDS: AMOXIC-POT CLAV 875-125MG 1 EACH TAB PO SCH (08:07)
[2017-01-01] MEDS: LACTULOSE 20 GM/30 ML CUP PO SCH (08:07)
[2017-01-01] MEDS: lamoTRIgine 25 MG TAB PO SCH (08:07)
[2017-01-01] MEDS: HYDROcodone/APAP 5-325MG 1 EACH TAB PO PRN (08:09)
[2017-01-01] MEDS: BUDESONIDE 0.5 MG/2 ML NEBU INHALATION SCH (08:13)
[2017-01-01] MEDS: IPRATROPIUM-ALBUTEROL 3 ML NEB INHALATION SCH ×2 (08:14→11:28)
--- NOTE | 2017-01-01 08:36 | P.DS ---
Providers Date of admission: 12/30/16 10:07 Expected date of discharge: 01/01/17 Attending physician: Flor Pepper MD Consults: 12/30/16 10:46 Consult Physician Routine Consulting Provider: Hilton Manzanares Consult Reason/Comments: History and physical Do you want consulting provider notified?: Yes Primary care physician: Stated None Hospital Course: Discharge Diagnoses: Major depressive disorder, recurrent moderate severity; opiate use disorder in early remission on Suboxone; benzodiazepine use disorder in early remission. Reason for Admission: Patient is a 41-year-old male who was transferred from the medical floor after being admitted from the emergency room due to confusion and possible pneumonia. On the inpatient unit the patient was seen and reported he was having suicidal ideation did not feel safe returning home and so was transferred to the inpatient psychiatric unit. Patient states that he been seeing Dr. Ya for 3-4 months prior to his admission, patient had been seen at [facility]. Patient states he was doing well on Lamictal 100 mg twice a day, olanzapine 10 mg at bedtime and Remeron 50 mg at bedtime and he had been on these medications consistently for several months. Patient was also on Suboxone and had been on this for 8 months due to an opioid use disorder. Prior to admission the patient states he was lonely due to his being in penitentiary, being bored and decided it would be a good idea to do some methamphetamine and acid. He states that he used methamphetamine for 3 days prior to his admission and acid Wednesday prior to his admission to the medical floor. He has no recollection of what occurred on those days and states that he lost all of his money from Social Security disability for the month of December and is unclear what occurred with the money. Patient reports that he is feeling depressed, decrease in his motivation, wanting to stay in bed and his appetite is fair to poor due to pain secondary from his pancreatitis. Patient is not sleeping well and is up frequently at night. Patient reported no current suicidal ideation, plan or intent to act but wonders if there is a point to his life. Patient has a history of 10 prior admissions in the last 8 years and no prior history of suicide attempts. Patient has only one prior admission to [facility] for 5 days for rehab. Patient was recently treated for biliary obstruction was caused pancreatitis and he continues to have symptoms of this. Hospital Course: Patient was admitted on a voluntary basis, only an ammonia level was ordered his other laboratory studies were performed on the medical floor, medical consultation was obtained the patient was placed on routine precautions. Patient was ordered group and activity therapy and he was continued on his medications from the medical floor. Patient was continued on his Remeron 18 mg at bedtime and he was restarted on his Zyprexa 10 mg at bedtime and his Lamictal was maintained at 25 mg twice a day which had been reduced to this dose on his admission to the medical floor. Patient reported that he was no longer feeling suicidal and stated the first day he spent the entire day in bed sleeping because he was tired. Patient stated that he was no longer feeling depressed and at slept better and was feeling less tired. Patient stated that on discharge he would live with his mother for a week and then return to his own apartment. He reported that he was no longer feeling as depressed, no current suicidal ideation and stated he was ready to return home. Discharge Mental Status:Appearance/Attitude: Patient is appropriately dressed, makes good eye contact and is cooperative. Behavior: Patient does not display any psychomotor agitation or retardation. Speech/Language: Patient's speech is spontaneous and of normal volume and rhythm and he is coherent. Thought Process: Patient is goal-directed, there is no evidence of circumstantial or tangential thought and no loose associations or flight of ideas. Thought Content: Patient denies any auditory or visual hallucinations no delusions or paranoid ideation were elicited. Patient reports that he is no longer feeling depressed, states he is motivated, sleeping well and his appetite is good but he continues to complain of abdominal pain secondary to his pancreatitis. Patient states that he sees his use of methamphetamine and acid was not a good idea. Suicidal/Homicidal Ideation: Patient denies any current suicidal or homicidal ideation. Sensorium/Cognition: Patient is alert and oriented to person, place, and time and his memory is grossly intact Mood/Affect: Patient's mood is euthymic and his affect is appropriate. Insight/Judgement: Patient's insight and judgment are fair. Laboratory Last Values Ammonia 12 umol/L (<30) 12/30/16 11:17 Risk Assessment: Patient's risk assessment is low as he has no prior history of suicide attempts should he continue to remain sober and comply with follow-up treatment and medications Discharge Plan: Patient will return to live with his mother for the first week and then return to his own apartment. He will continue in follow-up with and has an appointment on January 06 at 11:30 with her. Patient will continue on Lamictal 25 mg twice a day for 7 days and then he will increase it to 50 mg twice a day. Patient will continue on Remeron 15 mg at bedtime and Zyprexa 10 mg at bedtime. Patient also completed a course of treatment with Augmentin for 3 more days and then discontinue. Patient states that he will restart his Suboxone at home as he has sufficient medication there as well as both of his inhalers, Protonix, Zyprexa and Remeron. He will be given prescriptions for Augmentin and Lamictal only. Patient will also return to see Dr. Russ next week.] Patient Condition at Discharge: Stable Plan - Discharge Summary New Discharge Prescriptions: New Amoxic-Pot Clav 875-125Mg [Augmentin 875-125] 1 each PO BID #7 tab lamoTRIgine [LaMICtal] 25 mg PO BID #42 tab Continue Omeprazole 40 mg PO HS OLANZapine [ZyPREXA Zydis] 5 - 10 mg PO HS Mirtazapine [Remeron] 15 mg PO HS Buprenorphine HCl/Naloxone HCl [Suboxone 4 mg-1 mg Sl Film] 1 film SUBLINGUAL BID Discontinued lamoTRIgine [LaMICtal] 100 mg PO BID Discharge Medication List Omeprazole 40 mg PO HS 08/25/16 [History] Buprenorphine HCl/Naloxone HCl [Suboxone 4 mg-1 mg Sl Film] 1 film SUBLINGUAL BID 11/23/16 [History] Mirtazapine [Remeron] 15 mg PO HS 11/23/16 [History] OLANZapine [ZyPREXA Zydis] 5 - 10 mg PO HS 11/23/16 [History] Amoxic-Pot Clav 875-125Mg [Augmentin 875-125] 1 each PO BID #7 tab 01/01/17 [Rx] lamoTRIgine [LaMICtal] 25 mg PO BID #42 tab 01/01/17 [Rx] Follow up Appointment(s)/Referral(s): Dr Bhakti appointment on January 06 @ 11:30am [Other] - 1 Week Discharge Disposition: HOME SELF-CARE
--- NOTE | 2017-01-04 17:44 | PN ---
PROGRESS NOTE CHIEF COMPLAINT: Major depression. HISTORY OF PRESENT ILLNESS: This gentleman was admitted to the psych service after he had an acute stay on . REVIEW OF SYSTEMS: He has had no headaches, chest pain, shortness of breath, abdominal pain, urinary complaints, diabetes, etc. Past medical history, family history, and personal and social histories are all detailed in that evaluation. PHYSICAL EXAMINATION: Blood pressure 138/78 with a pulse of 61, respiration 32, and he is afebrile. In general he appeared to be overweight and in no acute distress. Skin color is normal. Skin is warm and dry. Lymph nodes are not enlarged. Head, ears, eyes, nose, mouth and throat were normal. Neck veins were not distended. Thyroid was not enlarged. Chest was clear. Cardiac exam was normal. Abdomen was soft and non-tender. Extremities were normal. IMPRESSION: 1. Major depression. 2. History of bipolar disorder. 3. History of substance abuse. 4. History of alcoholism. RECOMMENDATIONS: Inpatient psych care. MMODL / IJN: [id number] /
--- NOTE | 2017-01-04 21:14 | CONS ---
CONSULTATION DATE OF CONSULTATION: 12/31/16 CHIEF COMPLAINT: Depression. HISTORY OF PRESENT ILLNESS: This 41-year-old, white male's history can be found in the documents accompanying him from the medical floor where he was admitted with abdominal pain and complained of depression and suicidal thoughts. REVIEW OF SYSTEMS: He has had no other problems other than the vague abdominal pain which is more epigastric pain. He has had no fever, chills, cough, vomiting, diarrhea, melena, hematochezia, etc. PAST MEDICAL HISTORY: Past Medical history, Family history, Personal and social history can all be found in his documents accompanying him from [facility]. PHYSICAL EXAM: Blood pressure 135/88 with a pulse of 78, respirations of 14. He is afebrile. In general he appeared to be overweight in no acute distress. Skin color is normal. Skin is warm, dry. Lymph nodes not enlarged. Head, ears, eyes, nose, mouth and throat were normal. Neck veins not distended. Thyroid was not enlarged. CHEST: Clear. Cardiac exam is normal. Abdomen soft and nontender. Extremities are normal. IMPRESSION: 1. Major depression with suicidal thoughts. 2. Abdominal pain. RECOMMENDATION: None. MMODL / IJN: [id number] /
== END 2016-12-31 12:11 | disposition home or self-care (01) | DRG 885 ==
LOC: 3MHU 10:07
PROVIDERS: ADMIT Psychiatry & Neurology Psychiatry; ATTEND Psychiatry & Neurology Psychiatry
DX: F33.1 Major depressive disorder, recurrent, moderate (principal); J18.9 Pneumonia, unspecified organism; J44.0 Chronic obstructive pulmonary disease with (acute) lower respiratory infection; K86.1 Other chronic pancreatitis; B19.20 Unspecified viral hepatitis C without hepatic coma; G40.909 Epilepsy, unspecified, not intractable, without status epilepticus; F17.200 Nicotine dependence, unspecified, uncomplicated; F11.10 Opioid abuse, uncomplicated; F13.10 Sedative, hypnotic or anxiolytic abuse, uncomplicated; Z79.899 Other long term (current) drug therapy; Z88.5 Allergy status to narcotic agent; Z88.8 Allergy status to other drugs, medicaments and biological substances; Z81.8 Family history of other mental and behavioral disorders
CPT/HCPCS: 82140

== ENCOUNTER 2017-03-13 13:50 | Emergency (ER) | payer MEDICARE, OTHER ==
--- NOTE | 2017-03-13 14:15 | ED ---
Abdominal Pain HPI - General Chief Complaint: Abdominal Pain Stated Complaint: abdominal pain Time Seen by Provider: 03/13/17 14:05 Source: patient Mode of arrival: ambulatory Limitations: no limitations - History of Present Illness Initial Comments: Is a 41-year-old male with history significant for chronic necrotizing pancreatitis secondary to acute pancreatitis that developed in the spring. Patient presents to the emergency department today with a complaint of 3 days of worsening epigastric abdominal pain which is not responsive to his by mouth Suboxone at home. Patient reports mild nausea but has been able to tolerate by mouth intake. He denies any vomiting. He denies any change in bowel or bladder habits. He denies any chest pain or shortness of breath. Patient reports he's been compliant with his by mouth Suboxone but continues to experience worsening pain. Patient reports she has frequent flares of this pancreatitis similar to this, he reports that he has not been hospitalized for 2 months. - Related Data Home Medications Medication Instructions Recorded Confirmed Omeprazole 40 mg PO HS 08/25/16 03/13/17 Buprenorphine HCl/Naloxone HCl 1 film SUBLINGUAL BID 11/23/16 03/13/17 [Suboxone 4 mg-1 mg Sl Film] Mirtazapine [Remeron] 15 mg PO HS 11/23/16 03/13/17 OLANZapine [ZyPREXA Zydis] 10 mg PO HS 11/23/16 03/13/17 lamoTRIgine [LaMICtal] 100 mg PO BID 03/13/17 03/13/17 Allergies Allergy/AdvReac Type Severity Reaction Status Date / Time codeine Allergy Swelling Verified 03/13/17 14:28 furosemide [From Lasix] Allergy Rash/Hives Verified 03/13/17 14:28 haloperidol [From Haldol] Allergy Unknown Verified 03/13/17 14:28 prochlorperazine Allergy Swelling Verified 03/13/17 14:28 Milk Containing Products AdvReac Severe Diarrhea Verified 03/13/17 14:28 Review of Systems ROS Statement: Those systems with pertinent positive or pertinent negative responses have been documented in the HPI. ROS Other: All systems not noted in ROS Statement are negative. Constitutional: Denies: fever, chills Respiratory: Reports: cough ("smokers cough"), wheezes (current everyday smoker) . Denies: dyspnea Cardiovascular: Denies: chest pain, palpitations, dyspnea on exertion, orthopnea Endocrine: Denies: fatigue Gastrointestinal: Reports: abdominal pain, nausea. Denies: vomiting, diarrhea, constipation, hematemesis, melena Genitourinary: Denies: urgency, dysuria, frequency Musculoskeletal: Denies: back pain Skin: Denies: rash, lesions Neurological: Denies: headache, weakness Psychiatric: Denies: anxiety, depression Hematological/Lymphatic: Denies: easy bleeding, easy bruising Past Medical History Past Medical History: COPD, Musculoskeletal Disorder, Seizure Disorder Additional Past Medical History / Comment(s): History of seizures-per patient, his last seizure was in 2011, Hepatitis C, Degenerative disc disease in back, possible arthritis in knees, hips and arms. , pancreatitis History of Any Multi-Drug Resistant Organisms: None Reported Past Surgical History: Appendectomy Additional Past Surgical History / Comment(s): Appendectomy-1996, eye surgery- 1998, drain for pancreatitis Past Anesthesia/Blood Transfusion Reactions: No Reported Reaction Past Psychological History: Anxiety, Bipolar, Depression Smoking Status: Current every day smoker Past Alcohol Use History: None Reported Past Drug Use History: Methamphetamine, Opiates, Prescription Drug Abuse - Past Family History Brother(s) Additional Family Medical History / Comment(s): Chronic alcoholism Sister(s) Additional Family Medical History / Comment(s): Chronic alcoholism Daughter(s) Additional Family Medical History / Comment(s): One daughter healthy Son(s) Additional Family Medical History / Comment(s): One son healthy Father History Unknown: Yes Family Medical History: AICD/Pacemaker, Myocardial Infarction ([place]) Additional Family Medical History / Comment(s): Schizophrenia. Per patient, his father at the age of 59 Mother History Unknown: Yes Family Medical History: No Reported History Additional Family Medical History / Comment(s): HPV General Exam Limitations: no limitations General appearance: alert, in no apparent distress Head exam: Present: atraumatic, normocephalic Eye exam: Present: normal appearance, PERRL ENT exam: Present: normal exam, normal oropharynx Neck exam: Present: normal inspection Respiratory exam: Present: wheezes. Absent: normal lung sounds bilaterally, respiratory distress Cardiovascular Exam: Present: regular rate, normal rhythm GI/Abdominal exam: Present: soft, tenderness, normal bowel sounds, other (well healed surgical incision secondary to perc drain). Absent: distended, guarding , rebound, rigid, mass Rectal exam: Present: deferred Extremities exam: Present: normal inspection Back exam: Present: normal inspection Neurological exam: Present: alert, oriented X3 Psychiatric exam: Present: normal affect Skin exam: Present: warm, dry, intact Course Vital Signs 03/13/17 03/13/17 13:57 16:50 Temperature 98.3 F 98.6 F Pulse Rate 99 81 Respiratory 20 16 Rate Blood Pressure 134/88 129/73 O2 Sat by Pulse 99 94 L Oximetry Medical Decision Making - Medical Decision Making Patient was seen and evaluated, history was obtained from the patient and review of medical record Labs, IV fluids and morphine were ordered for analgesia Labs reveal mildly elevated lipase in the 900s range, review of previous labs reveals the patient's lipase is usually 600-1000. These results were discussed with the patient who reports improvement in his symptoms after IV morphine. At this time I offered the patient admission for worsening abdominal pain in the setting of chronic pancreatitis, this time patient declined admission stating that he would prefer to manage his pain at home. Patient will have close follow -up with his primary care physician or return to the emergency department for any acute worsening of his condition. All questions pertaining to care were answered to the best of my ability and the patient was discharged home in stable condition. - Lab Data Result diagrams: 03/13/17 14:44 03/13/17 14:44 Lab Results 03/13/17 03/13/17 Range/Units 14:44 14:44 WBC 8.7 (3.8-10.6) k/uL RBC 4.93 (4.30-5.90) m/uL Hgb 13.9 (13.0-17.5) gm/dL Hct 42.8 (39.0-53.0) % MCV 86.8 (80.0-100.0) fL MCH 28.2 (25.0-35.0) pg MCHC 32.5 (31.0-37.0) g/dL RDW 14.9 (11.5-15.5) % Plt Count 148 L (150-450) k/uL Neutrophils % 58 % Lymphocytes % 27 % Monocytes % 6 % Eosinophils % 7 % Basophils % 1 % Neutrophils # 5.0 (1.3-7.7) k/uL Lymphocytes # 2.4 (1.0-4.8) k/uL Monocytes # 0.5 (0-1.0) k/uL Eosinophils # 0.6 (0-0.7) k/uL Basophils # 0.1 (0-0.2) k/uL Sodium 139 (137-145) mmol/L Potassium 4.0 (3.5-5.1) mmol/L Chloride 107 (98-107) mmol/L Carbon Dioxide 22 (22-30) mmol/L Anion Gap 10 mmol/L BUN 11 (9-20) mg/dL Creatinine 0.79 (0.66-1.25) mg/dL Est GFR (MDRD) Af Amer >60 (>60 ml/min/1.73 sqM) Est GFR (MDRD) Non-Af >60 (>60 ml/min/1.73 sqM) Glucose 109 H (74-99) mg/dL Calcium 9.5 (8.4-10.2) mg/dL Total Bilirubin 0.3 (0.2-1.3) mg/dL AST 44 (17-59) U/L ALT 45 (21-72) U/L Alkaline Phosphatase 118 (38-126) U/L Total Protein 7.3 (6.3-8.2) g/dL Albumin 4.1 (3.5-5.0) g/dL Lipase 916 H (23-300) U/L Disposition Clinical Impression: Chronic pancreatitis Disposition: HOME SELF-CARE Condition: Good Instructions: Pancreatitis (ED) Referrals: Hilton Manzanares MD [Primary Care Provider] - 1-2 days Time of Disposition: 16:18
[2017-03-13] MEDS ORDERED: MORPHINE SULFATE 4 MG/ML SYRINGE IV ONE (14:16)
[2017-03-13] MEDS ORDERED: SODIUM CHLORIDE 0.9% 1,000 ML IV ONE (14:16)
[2017-03-13 14:53] LABS: Basophils # (A) 0.1 k/uL (0-0.2); Basophils % (A) 1 %; CH 28.3; CHCM 32.8; Eosinophils # (A) 0.6 k/uL (0-0.7); Eosinophils % (A) 7 %; HCT 42.8 % (39.0-53.0); HDW 2.53; HGB 13.9 gm/dL (13.0-17.5); Luc # (Auto) 0.07; Luc % (Auto) 1; Lymphocytes # (A) 2.4 k/uL (1.0-4.8); Lymphocytes % (A) 27 %; MCH 28.2 pg (25.0-35.0); MCHC 32.5 g/dL (31.0-37.0); MCV 86.8 fL (80.0-100.0); Mean Platelet Volume 9.8; Monocytes # (A) 0.5 k/uL (0-1.0); Monocytes % (A) 6 %; Neutrophils % (A) 58 %; RBC 4.93 m/uL (4.30-5.90); RDW 14.9 % (11.5-15.5); WBC 8.7 k/uL (3.8-10.6); WBC (Perox) 8.77
[2017-03-13 15:07] LABS: ALT 45 U/L (21-72); AST 44 U/L (17-59); Alkaline Phosphatase 118 U/L (38-126); Anion Gap 10 mmol/L; Blood Urea Nitrogen 11 mg/dL (9-20); Calcium 9.5 mg/dL (8.4-10.2); Carbon Dioxide 22 mmol/L (22-30); Chloride 107 mmol/L (98-107); Glucose 109 mg/dL (74-99); Non-African American GFR(MDRD) >60 (>60 ml/min/1.73 sqM); Sodium 139 mmol/L (137-145); Total Bilirubin 0.3 mg/dL (0.2-1.3); Total Protein 7.3 g/dL (6.3-8.2)
[2017-03-13 16:51] VITALS: BP 129/73; PULSE 81; RESP 16; TEMP 98.6
== END 2017-03-13 16:51 | disposition home or self-care (01) ==
LOC: EC 13:50
DX: K86.1 Other chronic pancreatitis (principal); G40.909 Epilepsy, unspecified, not intractable, without status epilepticus; F31.9 Bipolar disorder, unspecified; F41.9 Anxiety disorder, unspecified; F17.200 Nicotine dependence, unspecified, uncomplicated; Z86.19 Personal history of other infectious and parasitic diseases; Z79.899 Other long term (current) drug therapy; Z88.5 Allergy status to narcotic agent; Z91.011 Allergy to milk products; Z88.8 Allergy status to other drugs, medicaments and biological substances; Z98.890 Other specified postprocedural states
CPT/HCPCS: 36415; 80053; 83690; 85025; 99285; 96374; 96361; J2270

== ENCOUNTER 2017-05-23 14:35 | Emergency (ER) | payer MEDICARE, OTHER ==
[2017-05-23] MEDS ORDERED: HYDROmorphone 0.5 MG/0.5 ML SYRINGE IVP STA (15:51)
[2017-05-23] MEDS ORDERED: PANTOPRAZOLE 40 MG/10 ML VIAL IVP STA (15:51)
[2017-05-23] MEDS ORDERED: SODIUM CHLORIDE 0.9% 1,000 ML IV STA (15:51)
[2017-05-23] MEDS ORDERED: HYDROmorphone 2 MG/ML 1 ML SYRINGE IVP STA (16:10)
[2017-05-23 16:14] LABS: Basophils # (A) 0.1 k/uL (0-0.2); Basophils % (A) 1 %; Eosinophils # (A) 0.6 k/uL (0-0.7); Eosinophils % (A) 6 %; HCT 44.9 % (39.0-53.0); HGB 14.4 gm/dL (13.0-17.5); Lymphocytes # (A) 2.9 k/uL (1.0-4.8); Lymphocytes % (A) 30 %; MCH 27.9 pg (25.0-35.0); Mean Platelet Volume 9.3; Monocytes # (A) 0.7 k/uL (0-1.0); Monocytes % (A) 7 %; Neutrophils # (A) 5.3 k/uL (1.3-7.7); Neutrophils % (A) 54 %; Platelet Count 188 k/uL (150-450); RBC 5.16 m/uL (4.30-5.90); RDW 13.8 % (11.5-15.5); WBC 9.7 k/uL (3.8-10.6)
[2017-05-23 16:26] LABS: ALT 52 U/L (21-72); AST 53 U/L (17-59); Albumin 4.5 g/dL (3.5-5.0); Alkaline Phosphatase 180 U/L (38-126); Amylase 252 U/L (30-110); Anion Gap 12 mmol/L; Blood Urea Nitrogen 20 mg/dL (9-20); Calcium 9.8 mg/dL (8.4-10.2); Carbon Dioxide 26 mmol/L (22-30); Chloride 105 mmol/L (98-107); Glucose 142 mg/dL (74-99); Lipase 1793 U/L (23-300); Potassium 4.4 mmol/L (3.5-5.1); Sodium 143 mmol/L (137-145); Total Bilirubin 0.3 mg/dL (0.2-1.3); Total Protein 7.5 g/dL (6.3-8.2)
--- NOTE | 2017-05-23 16:33 | ED ---
General Adult HPI - General Chief complaint: Abdominal Pain Stated complaint: abdominal pain Time Seen by Provider: 05/23/17 15:26 Source: patient, RN notes reviewed, old records reviewed Mode of arrival: ambulatory Limitations: no limitations - History of Present Illness Initial comments: Chief complaint and history of present illness is a 42-year-old male to complaint of epigastric pain goes through to the back. This started yesterday. 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 He had a percutaneous drain for 4 months last year until finally closed. Patient denies any drugs or alcohol use. - Related Data Home Medications Medication Instructions Recorded Confirmed Omeprazole 40 mg PO HS 08/25/16 05/23/17 Buprenorphine HCl/Naloxone HCl 1 film SUBLINGUAL DAILY 11/23/16 05/23/17 [Suboxone 4 mg-1 mg Sl Film] Mirtazapine [Remeron] 15 mg PO HS 11/23/16 05/23/17 OLANZapine [ZyPREXA Zydis] 10 mg PO HS 11/23/16 05/23/17 lamoTRIgine [LaMICtal] 100 mg PO BID 03/13/17 05/23/17 Allergies Allergy/AdvReac Type Severity Reaction Status Date / Time codeine Allergy Swelling Verified 05/23/17 15:12 furosemide [From Lasix] Allergy Rash/Hives Verified 05/23/17 15:12 haloperidol [From Haldol] Allergy Unknown Verified 05/23/17 15:12 prochlorperazine Allergy Swelling Verified 05/23/17 15:12 Milk Containing Products AdvReac Severe Diarrhea Verified 05/23/17 15:12 Review of Systems ROS Statement: Those systems with pertinent positive or pertinent negative responses have been documented in the HPI. Review of systems no headache or visual acuity changes no chest pain or shortness of breath. He has epigastric pain goes through to the back. Minimal nausea no vomiting no diarrhea. No skin rashes no neuro deficits. All systems are reviewed. Past medical problems significant for COPD, musculoskeletal disorder seizure disorder associated with drug use which she says is been clean of for years. 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 Other surgeries include appendectomy. Family history no cancers. Patient is a smoker strongly encouraged to stop denies alcohol use. Patient's ALLERGIES include codeine, Lasix, haloperidol, prochlorperazine and milk containing products. ROS Other: All systems not noted in ROS Statement are negative. Past Medical History Past Medical History: COPD, Musculoskeletal Disorder, Seizure Disorder Additional Past Medical History / Comment(s): History of seizures-per patient, his last seizure was in 2011, Hepatitis C, Degenerative disc disease in back, possible arthritis in knees, hips and arms. , pancreatitis History of Any Multi-Drug Resistant Organisms: None Reported Past Surgical History: Appendectomy Additional Past Surgical History / Comment(s): Appendectomy-1996, eye surgery- 1998, drain for pancreatitis Past Anesthesia/Blood Transfusion Reactions: No Reported Reaction Past Psychological History: Anxiety, Bipolar, Depression Smoking Status: Current every day smoker Past Alcohol Use History: None Reported Past Drug Use History: Methamphetamine, Opiates, Prescription Drug Abuse - Past Family History Brother(s) Additional Family Medical History / Comment(s): Chronic alcoholism Sister(s) Additional Family Medical History / Comment(s): Chronic alcoholism Daughter(s) Additional Family Medical History / Comment(s): One daughter healthy Son(s) Additional Family Medical History / Comment(s): One son healthy Father History Unknown: Yes Family Medical History: AICD/Pacemaker, Myocardial Infarction ([place]) Additional Family Medical History / Comment(s): Schizophrenia. Per patient, his father at the age of 59 Mother History Unknown: Yes Family Medical History: No Reported History Additional Family Medical History / Comment(s): HPV General Exam - General Exam Comments Initial Comments: General: The patient is awake and alert, mild distress. Complaining of epigastric pain that goes through to the back. Vital signs shows temperature 98.7 pulse 94 respiratory rate 18 pulse ox 99% room air blood pressure 142/86 Eye: Pupils are equal, round and reactive to light, extra-ocular movements are intact ; there is normal conjunctiva bilaterally. No signs of icterus. Ears, nose, mouth and throat: There are moist mucous membranes and no oral lesions. Neck: The neck is supple, there is no tenderness . Cardiovascular: There is a regular rate and rhythm. No murmur, rub or gallop is appreciated. Respiratory: Lungs are clear to auscultation, respirations are non-labored, breath sounds are equal. No wheezes, stridor, rales, or rhonchi. Gastrointestinal: Epigastric tenderness no masses palpable. Pain radiates through to the back. Back: Epigastric pain radiates through to the back. No evidence of any injury or rash. Early shingles was discussed. Musculoskeletal: Normal ROM, no tenderness, There is no pedal edema. There is no calf tenderness or swelling. Sensation intact. Pulses equal bilaterally 2+. Neurological: No numbness no tingling no balance problems. No evidence of any neuro deficits. Skin is warm and dry and no rashes or lesions are noted. Psychiatric: Cooperative, denies any drug abuse. States he's been clean for a prolonged period of time Limitations: no limitations Course Vital Signs 05/23/17 05/23/17 15:02 18:32 Temperature 98.7 F 98.4 F Pulse Rate 94 82 Respiratory 18 16 Rate Blood Pressure 142/86 127/64 O2 Sat by Pulse 99 96 Oximetry Medical Decision Making - Medical Decision Making Medical decision making; this is a 42-year-old male known past alcohol problems with known past necrotizing pancreatitis. He's been followed by the GI service at [facility]. The patient in had a drain in the abdomen draining the pancreatic bed for over 4 months. It was removed and this past October. Patient presents today with epigastric pain radiating through to the back. Labs show an elevated lipase of 1793. White count 29.7. Hemoglobin hematocrit stable glucose stable at 142. The patient's CAT scan shows evidence of fluid collection measuring 4 x 4 x 5 cm in the peripancreatic area. Suspicious for complication of acute interstitial E edematous pancreatitis or an acute necrotic collection of patient with history of necrotizing pancreatitis. Patient received medications in emergency room he is comfortable. The case discussed with a surgeon at [facility], Dr. Felix, surgical service. She accepts the patient for transfer for evaluation at their facility. The patient be transferred via ambulance. - Lab Data Result diagrams: 05/23/17 15:25 05/23/17 15:25 Lab Results 05/23/17 05/23/17 05/23/17 Range/Units 15:25 15:25 15:25 WBC 9.7 (3.8-10.6) k/uL RBC 5.16 (4.30-5.90) m/uL Hgb 14.4 (13.0-17.5) gm/dL Hct 44.9 (39.0-53.0) % MCV 87.0 (80.0-100.0) fL MCH 27.9 (25.0-35.0) pg MCHC 32.0 (31.0-37.0) g/dL RDW 13.8 (11.5-15.5) % Plt Count 188 (150-450) k/uL Neutrophils % 54 % Lymphocytes % 30 % Monocytes % 7 % Eosinophils % 6 % Basophils % 1 % Neutrophils # 5.3 (1.3-7.7) k/uL Lymphocytes # 2.9 (1.0-4.8) k/uL Monocytes # 0.7 (0-1.0) k/uL Eosinophils # 0.6 (0-0.7) k/uL Basophils # 0.1 (0-0.2) k/uL Sodium 143 (137-145) mmol/L Potassium 4.4 (3.5-5.1) mmol/L Chloride 105 (98-107) mmol/L Carbon Dioxide 26 (22-30) mmol/L Anion Gap 12 mmol/L BUN 20 (9-20) mg/dL Creatinine 0.80 (0.66-1.25) mg/dL Est GFR (MDRD) Af Amer >60 (>60 ml/min/1.73 sqM) Est GFR (MDRD) Non-Af >60 (>60 ml/min/1.73 sqM) Glucose 142 H (74-99) mg/dL Plasma Lactic Acid Mynor 1.7 (0.7-2.0) mmol/L Calcium 9.8 (8.4-10.2) mg/dL Total Bilirubin 0.3 (0.2-1.3) mg/dL AST 53 (17-59) U/L ALT 52 (21-72) U/L Alkaline Phosphatase 180 H (38-126) U/L Total Protein 7.5 (6.3-8.2) g/dL Albumin 4.5 (3.5-5.0) g/dL Amylase 252 H (30-110) U/L Lipase 1793 H (23-300) U/L Urine Color Urine Appearance (Clear) Urine pH (5.0-8.0) Ur Specific [place] (1.001-1.035) Urine Protein (Negative) Urine Glucose (UA) (Negative) Urine Ketones (Negative) Urine Blood (Negative) Urine Nitrite (Negative) Urine Bilirubin (Negative) Urine Urobilinogen (<2.0) mg/dL Ur Leukocyte Esterase (Negative) 05/23/17 Range/Units 16:20 WBC (3.8-10.6) k/uL RBC (4.30-5.90) m/uL Hgb (13.0-17.5) gm/dL Hct (39.0-53.0) % MCV (80.0-100.0) fL MCH (25.0-35.0) pg MCHC (31.0-37.0) g/dL RDW (11.5-15.5) % Plt Count (150-450) k/uL Neutrophils % % Lymphocytes % % Monocytes % % Eosinophils % % Basophils % % Neutrophils # (1.3-7.7) k/uL Lymphocytes # (1.0-4.8) k/uL Monocytes # (0-1.0) k/uL Eosinophils # (0-0.7) k/uL Basophils # (0-0.2) k/uL Sodium (137-145) mmol/L Potassium (3.5-5.1) mmol/L Chloride (98-107) mmol/L Carbon Dioxide (22-30) mmol/L Anion Gap mmol/L BUN (9-20) mg/dL Creatinine (0.66-1.25) mg/dL Est GFR (MDRD) Af Amer (>60 ml/min/1.73 sqM) Est GFR (MDRD) Non-Af (>60 ml/min/1.73 sqM) Glucose (74-99) mg/dL Plasma Lactic Acid Mynor (0.7-2.0) mmol/L Calcium (8.4-10.2) mg/dL Total Bilirubin (0.2-1.3) mg/dL AST (17-59) U/L ALT (21-72) U/L Alkaline Phosphatase (38-126) U/L Total Protein (6.3-8.2) g/dL Albumin (3.5-5.0) g/dL Amylase (30-110) U/L Lipase (23-300) U/L Urine Color Yellow Urine Appearance Clear (Clear) Urine pH 6.0 (5.0-8.0) Ur Specific [place] 1.022 (1.001-1.035) Urine Protein Trace H (Negative) Urine Glucose (UA) Negative (Negative) Urine Ketones Negative (Negative) Urine Blood Negative (Negative) Urine Nitrite Negative (Negative) Urine Bilirubin Negative (Negative) Urine Urobilinogen <2.0 (<2.0) mg/dL Ur Leukocyte Esterase Negative (Negative) Disposition Clinical Impression: Acute pancreatitis with uninfected necrosis, unspecified Disposition: OTHER INSTITUTION NOT DEFINED Condition: Serious Referrals: Hilton Manzanares MD [Primary Care Provider] - 1-2 days - Out of Hospital Transfer - Req. Specs Out of Hospital Transfer - Requested Specifics: Other Emergency Center ([facility] , cat two)
[2017-05-23 16:48] LABS: Appearance,Urine Clear (Clear); Bilirubin,Urine Negative (Negative); Blood,Urine Negative (Negative); Color,Urine Yellow; Glucose,Urine (UA) Negative (Negative); Ketones,Urine Negative (Negative); Leukocyte Esterase,Urine Negative (Negative); Nitrite,Urine Negative (Negative); Protein,Urine Trace (Negative); Specific Gravity,Urine 1.022 (1.001-1.035); Urobilinogen,Urine <2.0 mg/dL (<2.0)
--- NOTE | 2017-05-23 16:52 | XR ---
EXAMINATION TYPE: XR abdomen 2V DATE OF EXAM: 05/23/2017 4:41 PM CLINICAL HISTORY: Left lower quadrant abdominal pain for 2 days TECHNIQUE: Upright and supine abdominal radiographs were obtained. COMPARISON: 08/16/2016. FINDINGS: The previously seen left-sided pigtail catheter has been removed in the interim. Scattered gas is seen in non-distended small bowel loops. Gas and fecal material is seen in non-distended colon . There is no visceromegaly, pneumoperitoneum, or abnormal calcification appreciated. The lung bases are clear and the osseous structures are intact. Well-circumscribed right lower lung nodularity is un changed from the prior 08/16/2016 and thought to relate to a nipple shadow. Bilateral mild femoral philip tabular arthropathy is seen. IMPRESSION: Moderate amount of retained colonic stool in a nonobstructive bowel gas pattern.
[2017-05-23] MEDS ORDERED: RX INFO: IV CONTRAST WAS GIVEN 1 EACH MISC MISCELLANE PRN (17:24)
[2017-05-23] MEDS ORDERED: IOHEXOL 350 MG/ML 25 ML BOTTLE (ORAL USE) PO PRN (17:24)
--- NOTE | 2017-05-23 18:45 | CT ---
EXAMINATION TYPE: CT abdomen pelvis w con DATE OF EXAM: 05/23/2017 COMPARISON: NONE HISTORY: LUQ pain. CT DLP: 1914 mGycm Automated exposure control for dose reduction was used. TECHNIQUE: Helical acquisition of images was performed from the lung bases through the pelvis. CONTRAST: Performed without Oral Contrast and with IV Contrast, patient injected with 100ml mL of Omnipaque 300 . FINDINGS: LUNG BASES: Calcified benign granulomas seen within the right middle lobe. LIVER/GB: Hepatic parenchyma is diffusely hypoattenuated in comparison to that of the spleen, most co mmonly seen in hepatic steatosis. This finding limits evaluation for hepatic masses. Focal fatty spar ing is noted around the gallbladder fossa. No gross evidence of hepatic mass is seen. No intrahepatic biliary ductal dilatation. No cholelithiasis PANCREAS: There is a new peripancreatic fluid collection emanating from the pancreatic body measuring 4.5 x 4.0 x 5.4 cm. There is only minimal peripancreatic fat stranding, improved from the prior of . No pseudoaneurysm is seen of the splenic artery. No evidence of portal venous thrombus is se en. No peripancreatic lymph nodes and paraesophageal lymph nodes are noted, likely reactive. These ar e similar to the prior exam. SPLEEN: The spleen is decrease in size measuring 12.8 cm in craniocaudal dimension. Splenules are see n adjacent to the [place] spleen. ADRENALS: No significant abnormality is seen. KIDNEYS: No hydronephrosis. Encapsulated area of fat within the right midpole versus an elongated ang iomyolipoma is seen on series 3 image 47. FREE AIR: No free air is visualized. ADENOPATHY: As described above small peripancreatic and paraesophageal lymph nodes are seen that are likely reactive in similar to the exam of 12/27/2016. REPRODUCTIVE ORGANS: No significant abnormality is seen URINARY BLADDER: No significant abnormality is seen. OSSEOUS STRUCTURES: No significant abnormality is seen. BOWEL: No evidence of bowel enlargement. Again there is a small duodenal diverticulum. No evidence o f bowel obstruction. IMPRESSION: NEW PERIPANCREATIC FLUID COLLECTION MEASURING 4.5 X 4.0 X 5.4 CM. THIS IS FAVORED TO REPRESENT AN ACU TE PERIPANCREATIC FLUID COLLECTION, A COMPLICATION OF ACUTE INTERSTITIAL EDEMATOUS PANCREATITIS ALTHO UGH COULD REPRESENT AN ACUTE NECROTIC COLLECTION IN A PATIENT WITH A HISTORY OF NECROTIZING PANCREATI TIS. ONLY MILD PERIPANCREATIC FAT STRANDING CHANGES ARE SEEN AT THIS TIME, DECREASED FROM THE EXAM OF 12/27/2016.
[2017-05-23 20:30] VITALS: BP 115/57; PULSE 79; RESP 18; TEMP 98.8
== END 2017-05-23 21:20 | disposition other institution (70) ==
LOC: EC 14:35
DX: K85.91 Acute pancreatitis with uninfected necrosis, unspecified (principal); G40.909 Epilepsy, unspecified, not intractable, without status epilepticus; F32.9 Major depressive disorder, single episode, unspecified; F41.9 Anxiety disorder, unspecified; F17.200 Nicotine dependence, unspecified, uncomplicated; Z87.39 Personal history of other diseases of the musculoskeletal system and connective tissue; Z86.19 Personal history of other infectious and parasitic diseases; Z79.899 Other long term (current) drug therapy; Z88.5 Allergy status to narcotic agent; Z88.8 Allergy status to other drugs, medicaments and biological substances; Z91.011 Allergy to milk products; Z98.890 Other specified postprocedural states
CPT/HCPCS: 36415; 80053; 82150; 83605; 83690; 85025; 81003; 87086; 74019; 74177; 99285; 96374; 96375; 96376; 96361 ×5; J1170 ×2; Q9967; C9113

== ENCOUNTER 2017-07-18 17:46 | Inpatient (IN) | payer MEDICARE, OTHER ==
[2017-07-18] MEDS ORDERED: ONDANSETRON 4 MG/2 ML VIAL IVP STA (18:17)
[2017-07-18] MEDS ORDERED: SODIUM CHLORIDE 0.9% 1,000 ML IV STA ×2 (18:17)
[2017-07-18] MEDS ORDERED: fentaNYL (PF) 50 MCG/ML 2 ML AMP IV STA (18:18)
--- NOTE | 2017-07-18 18:22 | ED ---
Abdominal Pain HPI - General Chief Complaint: Abdominal Pain Stated Complaint: Abd.pain Time Seen by Provider: 07/18/17 18:05 Source: patient, RN notes reviewed Mode of arrival: ambulatory Limitations: no limitations - History of Present Illness Initial Comments: Is a 43-year-old male with a history of pancreatitis who presents with complaints of about 2-3 days of abdominal pain mostly epigastric in area radiating sometimes to the left side. Nausea vomiting and diarrhea he states the pain is 10/10 he states that sharp and feels like his previous episodes of pancreatitis. He also states he did decrease her own take for 2 days no fevers or chills. He states he original episode of pancreatitis was due to a common bile duct stone he states he still has his gallbladder. MD Complaint: abdominal pain - Related Data Home Medications Medication Instructions Recorded Confirmed Omeprazole 40 mg PO HS 08/25/16 07/18/17 Mirtazapine [Remeron] 15 mg PO HS 11/23/16 07/18/17 OLANZapine [ZyPREXA Zydis] 10 mg PO HS 11/23/16 07/18/17 lamoTRIgine [LaMICtal] 100 mg PO BID 03/13/17 07/18/17 Ibuprofen [Motrin Ib] 600 mg PO BID PRN 07/18/17 07/18/17 Allergies Allergy/AdvReac Type Severity Reaction Status Date / Time codeine Allergy Swelling Verified 07/18/17 18:02 furosemide [From Lasix] Allergy Rash/Hives Verified 07/18/17 18:02 haloperidol [From Haldol] Allergy Unknown Verified 07/18/17 18:02 prochlorperazine Allergy Swelling Verified 07/18/17 18:02 Milk Containing Products AdvReac Severe Diarrhea Verified 07/18/17 18:02 Review of Systems ROS Statement: Those systems with pertinent positive or pertinent negative responses have been documented in the HPI. ROS Other: All systems not noted in ROS Statement are negative. Past Medical History Past Medical History: COPD, Musculoskeletal Disorder, Seizure Disorder Additional Past Medical History / Comment(s): History of seizures-per patient, his last seizure was in 2011, Hepatitis C, Degenerative disc disease in back, possible arthritis in knees, hips and arms. , pancreatitis History of Any Multi-Drug Resistant Organisms: None Reported Past Surgical History: Appendectomy Additional Past Surgical History / Comment(s): Appendectomy-1996, eye surgery- 1998, drain for pancreatitis Past Anesthesia/Blood Transfusion Reactions: No Reported Reaction Past Psychological History: Bipolar, Depression Smoking Status: Current every day smoker Past Alcohol Use History: None Reported Past Drug Use History: Methamphetamine, Opiates, Prescription Drug Abuse - Past Family History Brother(s) Additional Family Medical History / Comment(s): Chronic alcoholism Sister(s) Additional Family Medical History / Comment(s): Chronic alcoholism Daughter(s) Additional Family Medical History / Comment(s): One daughter healthy Son(s) Additional Family Medical History / Comment(s): One son healthy Father History Unknown: Yes Family Medical History: AICD/Pacemaker, Myocardial Infarction ([place]) Additional Family Medical History / Comment(s): Schizophrenia. Per patient, his father at the age of 59 Mother History Unknown: Yes Family Medical History: No Reported History Additional Family Medical History / Comment(s): HPV General Exam - General Exam Comments Initial Comments: This is a well-developed well-nourished awake alert oriented 3 male Limitations: no limitations General appearance: alert, in no apparent distress Head exam: Present: atraumatic, normocephalic, normal inspection Eye exam: Present: normal appearance, PERRL, EOMI. Absent: scleral icterus, conjunctival injection, periorbital swelling ENT exam: Present: mucous membranes dry Neck exam: Present: normal inspection. Absent: tenderness, meningismus, lymphadenopathy Respiratory exam: Present: normal lung sounds bilaterally. Absent: respiratory distress, wheezes, rales, rhonchi, stridor Cardiovascular Exam: Present: normal rhythm, tachycardia, normal heart sounds. Absent: systolic murmur, diastolic murmur, rubs, gallop, clicks GI/Abdominal exam: Present: soft, tenderness (Positive epigastric tenderness palpation no guarding rebound masses or bruits), normal bowel sounds. Absent: distended, guarding, rebound, rigid, pulsatile mass, hernia Rectal exam: Present: deferred Extremities exam: Present: normal inspection, full ROM, normal capillary refill. Absent: tenderness, pedal edema, joint swelling, calf tenderness Back exam: Present: normal inspection Neurological exam: Present: alert, oriented X3, CN II-XII intact Psychiatric exam: Present: normal affect, normal mood Skin exam: Present: warm, dry, intact, normal color. Absent: rash Course Vital Signs 07/18/17 07/18/17 07/18/17 17:52 19:03 19:48 Temperature 99.1 F Pulse Rate 126 H 119 H 98 Respiratory 20 18 18 Rate Blood Pressure 136/87 127/84 130/78 O2 Sat by Pulse 97 98 97 Oximetry 07/18/17 20:30 Temperature Pulse Rate 103 H Respiratory 15 Rate Blood Pressure 127/78 O2 Sat by Pulse 97 Oximetry - Reevaluation(s) Reevaluation #1: 07/18/17 21:[address] Camacho was learned the patient does have a pancreatic pseudocyst. Medical Decision Making - Medical Decision Making I did discuss findings with the patient and with Dr. Camacho patient be admitted for IV fluids pain control and GI consultation - Lab Data Result diagrams: 07/18/17 18:37 07/18/17 18:37 Lab Results 07/18/17 07/18/17 07/18/17 Range/Units 18:37 18:37 18:37 WBC 16.7 H (3.8-10.6) k/uL RBC 5.24 (4.30-5.90) m/uL Hgb 14.1 (13.0-17.5) gm/dL Hct 44.0 (39.0-53.0) % MCV 83.9 (80.0-100.0) fL MCH 27.0 (25.0-35.0) pg MCHC 32.1 (31.0-37.0) g/dL RDW 13.7 (11.5-15.5) % Plt Count 351 (150-450) k/uL Neutrophils % 70 % Lymphocytes % 20 % Monocytes % 7 % Eosinophils % 2 % Basophils % 1 % Neutrophils # 11.7 H (1.3-7.7) k/uL Lymphocytes # 3.3 (1.0-4.8) k/uL Monocytes # 1.1 H (0-1.0) k/uL Eosinophils # 0.3 (0-0.7) k/uL Basophils # 0.1 (0-0.2) k/uL Sodium 146 H (137-145) mmol/L Potassium 3.7 (3.5-5.1) mmol/L Chloride 107 (98-107) mmol/L Carbon Dioxide 21 L (22-30) mmol/L Anion Gap 18 mmol/L BUN 18 (9-20) mg/dL Creatinine 0.90 (0.66-1.25) mg/dL Est GFR (CKD-EPI)AfAm >90 (>60 ml/min/1.73 sqM) Est GFR (CKD-EPI)NonAf >90 (>60 ml/min/1.73 sqM) Glucose 123 H (74-99) mg/dL Plasma Lactic Acid M[place] (0.7-2.0) mmol/L Calcium 10.1 (8.4-10.2) mg/dL Total Bilirubin 0.2 (0.2-1.3) mg/dL AST 36 (17-59) U/L ALT 35 (21-72) U/L Alkaline Phosphatase 150 H (38-126) U/L Total Creatine Kinase 35 L (55-170) U/L CK-MB (CK-2) 0.4 (0.0-2.4) ng/mL CK-MB (CK-2) Rel Index 1.1 Troponin I <0.012 (0.000-0.034) ng/mL Total Protein 7.6 (6.3-8.2) g/dL Albumin 4.3 (3.5-5.0) g/dL Amylase 178 H (30-110) U/L Lipase 628 H (23-300) U/L Urine Color Urine Appearance (Clear) Urine pH (5.0-8.0) Ur Specific [place] (1.001-1.035) Urine Protein (Negative) Urine Glucose (UA) (Negative) Urine Ketones (Negative) Urine Blood (Negative) Urine Nitrite (Negative) Urine Bilirubin (Negative) Urine Urobilinogen (<2.0) mg/dL Ur Leukocyte Esterase (Negative) Urine RBC (0-5) /hpf Urine WBC (0-5) /hpf Ur Squamous Epith Cells (0-4) /hpf Urine Mucus (None) /hpf 07/18/17 07/18/17 Range/Units 18:37 18:37 WBC (3.8-10.6) k/uL RBC (4.30-5.90) m/uL Hgb (13.0-17.5) gm/dL Hct (39.0-53.0) % MCV (80.0-100.0) fL MCH (25.0-35.0) pg MCHC (31.0-37.0) g/dL RDW (11.5-15.5) % Plt Count (150-450) k/uL Neutrophils % % Lymphocytes % % Monocytes % % Eosinophils % % Basophils % % Neutrophils # (1.3-7.7) k/uL Lymphocytes # (1.0-4.8) k/uL Monocytes # (0-1.0) k/uL Eosinophils # (0-0.7) k/uL Basophils # (0-0.2) k/uL Sodium (137-145) mmol/L Potassium (3.5-5.1) mmol/L Chloride (98-107) mmol/L Carbon Dioxide (22-30) mmol/L Anion Gap mmol/L BUN (9-20) mg/dL Creatinine (0.66-1.25) mg/dL Est GFR (CKD-EPI)AfAm (>60 ml/min/1.73 sqM) Est GFR (CKD-EPI)NonAf (>60 ml/min/1.73 sqM) Glucose (74-99) mg/dL Plasma Lactic Acid [place] 1.6 (0.7-2.0) mmol/L Calcium (8.4-10.2) mg/dL Total Bilirubin (0.2-1.3) mg/dL AST (17-59) U/L ALT (21-72) U/L Alkaline Phosphatase (38-126) U/L Total Creatine Kinase (55-170) U/L CK-MB (CK-2) (0.0-2.4) ng/mL CK-MB (CK-2) Rel Index Troponin I (0.000-0.034) ng/mL Total Protein (6.3-8.2) g/dL Albumin (3.5-5.0) g/dL Amylase (30-110) U/L Lipase (23-300) U/L Urine Color Yellow Urine Appearance Clear (Clear) Urine pH 6.0 (5.0-8.0) Ur Specific [place] 1.032 (1.001-1.035) Urine Protein 1+ H (Negative) Urine Glucose (UA) Negative (Negative) Urine Ketones Trace H (Negative) Urine Blood Negative (Negative) Urine Nitrite Negative (Negative) Urine Bilirubin Negative (Negative) Urine Urobilinogen 3.0 (<2.0) mg/dL Ur Leukocyte Esterase Negative (Negative) Urine RBC <1 (0-5) /hpf Urine WBC 1 (0-5) /hpf Ur Squamous Epith Cells 1 (0-4) /hpf Urine Mucus Many H (None) /hpf - Radiology Data Radiology results: report reviewed (I did review the imaging and reports no acute findings), image reviewed Disposition Clinical Impression: Abdominal pain, Pancreatitis, Pancreatic pseudocyst, Intractable nausea and vomiting Disposition: ADMITTED IP TO THIS [facility] Condition: Stable Referrals: Bandar Camacho MD [Primary Care Provider] - 1-2 days
[2017-07-18 18:56] LABS: Basophils # (A) 0.1 k/uL (0-0.2); Basophils % (A) 1 %; Eosinophils # (A) 0.3 k/uL (0-0.7); Eosinophils % (A) 2 %; HGB 14.1 gm/dL (13.0-17.5); Lymphocytes # (A) 3.3 k/uL (1.0-4.8); Lymphocytes % (A) 20 %; MCHC 32.1 g/dL (31.0-37.0); MCV 83.9 fL (80.0-100.0); Mean Platelet Volume 8.7; Monocytes # (A) 1.1 k/uL (0-1.0); Monocytes % (A) 7 %; Neutrophils # (A) 11.7 k/uL (1.3-7.7); Neutrophils % (A) 70 %; Platelet Count 351 k/uL (150-450); RBC 5.24 m/uL (4.30-5.90); RDW 13.7 % (11.5-15.5); WBC 16.7 k/uL (3.8-10.6)
[2017-07-18 19:01] LABS: Appearance,Urine Clear (Clear); Bilirubin,Urine Negative (Negative); Blood,Urine Negative (Negative); Color,Urine Yellow; Glucose,Urine (UA) Negative (Negative); Ketones,Urine Trace (Negative); Leukocyte Esterase,Urine Negative (Negative); Mucus,Urine Many /hpf; Nitrite,Urine Negative (Negative); Protein,Urine 1+ (Negative); RBC,Urine <1 /hpf (0-5); Specific Gravity,Urine 1.032 (1.001-1.035); Squamous Epithelial Cell,Urine 1 /hpf (0-4); WBC,Urine 1 /hpf (0-5)
[2017-07-18 19:10] LABS: ALT 35 U/L (21-72); AST 36 U/L (17-59); Albumin 4.3 g/dL (3.5-5.0); Alkaline Phosphatase 150 U/L (38-126); Amylase 178 U/L (30-110); Anion Gap 18 mmol/L; Blood Urea Nitrogen 18 mg/dL (9-20); Calcium 10.1 mg/dL (8.4-10.2); Carbon Dioxide 21 mmol/L (22-30); Chloride 107 mmol/L (98-107); Glucose 123 mg/dL (74-99); Lipase 628 U/L (23-300); Potassium 3.7 mmol/L (3.5-5.1); Sodium 146 mmol/L (137-145); Total Bilirubin 0.2 mg/dL (0.2-1.3); Total Protein 7.6 g/dL (6.3-8.2)
[2017-07-18 19:18] LABS: Creatine Kinase 35 U/L (55-170)
--- NOTE | 2017-07-18 19:30 | XR ---
EXAMINATION TYPE: XR KUB DATE OF EXAM: 07/18/2017 COMPARISON: 08/16/16 HISTORY: upper quadrant pain, bilateral TECHNIQUE: 2 upright views FINDINGS: Bowel gas pattern is normal. No pneumatosis or pneumoperitoneum. Soft tissues and skeletal structures are unremarkable. Visualized lung bases and pleural spaces and carotid silhouette unremarkable. IMPRESSION: Acute process.
[2017-07-18 19:31] LABS: Creatine Kinase MB 0.4 ng/mL (0.0-2.4); Troponin I <0.012 ng/mL (0.000-0.034)
[2017-07-18] MEDS ORDERED: MORPHINE SULFATE/PF 10MG/10ML VL IVP ONE (20:23)
[2017-07-18] MEDS ORDERED: MORPHINE SULFATE/PF 10MG/10ML VL ONE (20:26)
[2017-07-18] MEDS ORDERED: NALOXONE 0.4 MG/ML 1 ML VIAL IV PRN (21:27)
[2017-07-18] MEDS: SODIUM CHLORIDE 0.9% 1,000 ML IV SCH (22:44)
[2017-07-19] MEDS: MORPHINE SULFATE/PF 10MG/10ML VL IVP PRN ×6 (00:27→20:02)
[2017-07-19] MEDS: SODIUM CHLORIDE 0.9% 1,000 ML IV SCH ×2 (05:47→14:38)
[2017-07-19] MEDS: PANTOPRAZOLE 40 MG/10 ML VIAL IVP SCH ×2 (08:19→21:42)
[2017-07-19] MEDS: ONDANSETRON 4 MG/2 ML VIAL IVP PRN ×2 (08:20→15:56)
[2017-07-19 08:56] LABS: Basophils # (A) 0.1 k/uL (0-0.2); Basophils % (A) 1 %; Eosinophils # (A) 0.4 k/uL (0-0.7); Eosinophils % (A) 3 %; HCT 38.1 % (39.0-53.0); HGB 12.4 gm/dL (13.0-17.5); Lymphocytes # (A) 2.8 k/uL (1.0-4.8); Lymphocytes % (A) 23 %; MCH 27.8 pg (25.0-35.0); MCHC 32.4 g/dL (31.0-37.0); MCV 85.6 fL (80.0-100.0); Mean Platelet Volume 8.5; Monocytes # (A) 0.9 k/uL (0-1.0); Monocytes % (A) 7 %; Neutrophils # (A) 7.9 k/uL (1.3-7.7); Neutrophils % (A) 65 %; Platelet Count 254 k/uL (150-450); RBC 4.46 m/uL (4.30-5.90); RDW 13.8 % (11.5-15.5); WBC 12.3 k/uL (3.8-10.6)
[2017-07-19 09:11] LABS: ALT 37 U/L (21-72); AST 32 U/L (17-59); Albumin 3.5 g/dL (3.5-5.0); Alkaline Phosphatase 124 U/L (38-126); Anion Gap 12 mmol/L; Blood Urea Nitrogen 14 mg/dL (9-20); Calcium 9.3 mg/dL (8.4-10.2); Carbon Dioxide 23 mmol/L (22-30); Chloride 111 mmol/L (98-107); Glucose 103 mg/dL (74-99); Potassium 3.8 mmol/L (3.5-5.1); Sodium 146 mmol/L (137-145); Total Bilirubin 0.3 mg/dL (0.2-1.3); Total Protein 6.2 g/dL (6.3-8.2)
--- NOTE | 2017-07-19 11:16 | P.GSCN ---
<Ana Meredith - Last Filed: 07/19/17 11:18> History of Present Illness Consult date: 07/19/17 Reason for Consult: Pancreatitis abdominal pain History of present illness: 42-year-old male being seen for a surgical eval at the request of the attending for abdominal pain. Patient presented on the day of admission to the emergency room to be evaluated for chief complaint midepigastric abdominal pain radiating to the left side. Nausea vomiting frequent stooling with decrease appetite patient states the symptoms have been ongoing for "some time. Patient does have a significant history of pancreatitis and has been followed in the past by [facility] in [place]. stated that his recent hospitalization for treatment of pancreatitis was just last week at [facility]. Patient stated his treatment consists of pain control no intervention. a year ago was transferred to [facility] in [place] to be treated for a pseudocyst of his pancreas. Patient reportedly had the pseudocyst drained and was to follow-up. He states his last ERCP was 6-8 months ago at [facility]. states that he was told after the ERCP that he was to come back in 3-6 months and have his gallbladder taken out. states that it 's difficult to get down to [facility] he has no transportation. Additionally patient states he feels like he has been making monthly visits to the emergency room for pain involving his pancreas . States feeling overly anxious about why the pain continues to persist is anxious to have his gallbladder addressed. The original episode of pancreatitis according to the patient was due to common bile duct stones. Currently patient is resting in bed pain medication effective for pain control. Patient states that he feels like he is not getting the answers he needs that he is admitted to the hospital given pain medication and discharged with no pain medication. Which the patient states he agrees given his past history of prescription drug abuse states he does have drug use abuse prescription drugs, opiates, methamphetamine. Patient states he is a nondrinker. Current every day smoker Past medical history acute on chronic pancreatitis with a history of necrotizing pancreatitis treated at [facility] in [place] Bipolar disorder, hepatitis C diagnosed and treated approximate 6 years ago, IV drug abuse, prescription drug abuse, seizure disorder Past surgical history appendectomy 1996. Percutaneous drainage pancreatic cyst [facility] 1 year ago, pancreatic stent placed which patient states was removed Labs this morning the lipase is down to 370. On admission 628 Review of Systems Essentially unremarkable except as mentioned in the present illness Past Medical History Past Medical History: COPD, Musculoskeletal Disorder, Seizure Disorder Additional Past Medical History / Comment(s): History of seizures-per patient, his last seizure was in 2011, Hepatitis C, Degenerative disc disease in back, possible arthritis in knees, hips and arms. , pancreatitis History of Any Multi-Drug Resistant Organisms: None Reported Past Surgical History: Appendectomy Additional Past Surgical History / Comment(s): Appendectomy-1996, eye surgery- 1998, drain for pancreatitis Past Anesthesia/Blood Transfusion Reactions: No Reported Reaction Past Psychological History: Bipolar, Depression Smoking Status: Current every day smoker Past Alcohol Use History: None Reported Additional Past Alcohol Use History / Comment(s): Patient reports he drinks approximately 4 times a year-last drink per patient was this passed wednesday. 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 pt states that he is buying them off the street - Past Family History Brother(s) Additional Family Medical History / Comment(s): Chronic alcoholism Sister(s) Additional Family Medical History / Comment(s): Chronic alcoholism Daughter(s) Additional Family Medical History / Comment(s): One daughter healthy Son(s) Additional Family Medical History / Comment(s): One son healthy Father History Unknown: Yes Family Medical History: AICD/Pacemaker, Myocardial Infarction ([place]) Additional Family Medical History / Comment(s): Schizophrenia. Per patient, his father at the age of 59 Mother History Unknown: Yes Family Medical History: No Reported History Additional Family Medical History / Comment(s): HPV Medications and Allergies Home Medications Medication Instructions Recorded Confirmed Type Omeprazole 40 mg PO HS 08/25/16 07/18/17 History Mirtazapine [Remeron] 15 mg PO HS 11/23/16 07/18/17 History OLANZapine [ZyPREXA Zydis] 10 mg PO HS 11/23/16 07/18/17 History lamoTRIgine [LaMICtal] 100 mg PO BID 03/13/17 07/18/17 History Ibuprofen [Motrin Ib] 600 mg PO BID PRN 07/18/17 07/18/17 History Allergies Allergy/AdvReac Type Severity Reaction Status Date / Time codeine Allergy Swelling Verified 07/18/17 18:02 furosemide [From Lasix] Allergy Rash/Hives Verified 07/18/17 18:02 haloperidol [From Haldol] Allergy Unknown Verified 07/18/17 18:02 prochlorperazine Allergy Swelling Verified 07/18/17 18:02 Milk Containing Products AdvReac Severe Diarrhea Verified 07/18/17 18:02 Surgical - Exam Vital Signs Temp Pulse Resp BP Pulse Ox 99.1 F 126 H 20 136/87 97 07/18/17 17:52 07/18/17 17:52 07/18/17 17:52 07/18/17 17:52 07/18/17 17:52 GENERAL APPEARANCE: 42-year-old male patient is alert, oriented, in no acute distress. VITAL SIGNS: Reviewed HEENT: Head is normocephalic and atraumatic. Pupils are equal and reactive. The nares are patent. Oropharynx is clear without lesions. NECK: Supple without lymphadenopathy. Traches midline. HEART: S1, S2. Regular rate and rhythm. LUNGS: No crackles or wheezes are heard. ABDOMEN: Soft, nontender, nondistended with good bowel sounds. No peritoneal signs. No palpable organomegaly or masses. No facial grimacing with palpitation to the abdominal wall EXTREMITIES: Normal skin color and turgor. No cyanosis, rash, ulceration, clubbing or edema. Radial pedal pulses are 2/4 bilaterally. NEUROLOGICAL: No focal deficits. Strength and sensation are grossly intact. Results - Labs 07/19/17 08:38 07/19/17 08:38 Abnormal Lab Results - Last 24 Hours (Table) 07/18/17 07/18/17 07/18/17 Range/Units 18:37 18:37 18:37 WBC 16.7 H (3.8-10.6) k/uL Hgb (13.0-17.5) gm/dL Hct (39.0-53.0) % Neutrophils # 11.7 H (1.3-7.7) k/uL Monocytes # 1.1 H (0-1.0) k/uL Sodium 146 H (137-145) mmol/L Chloride (98-107) mmol/L Carbon Dioxide 21 L (22-30) mmol/L Glucose 123 H (74-99) mg/dL Alkaline Phosphatase 150 H (38-126) U/L Total Creatine Kinase 35 L (55-170) U/L Total Protein (6.3-8.2) g/dL Amylase 178 H (30-110) U/L Lipase 628 H (23-300) U/L Urine Protein (Negative) Urine Ketones (Negative) Urine Mucus (None) /hpf 07/18/17 07/19/17 07/19/17 Range/Units 18:37 08:38 08:38 WBC 12.3 H (3.8-10.6) k/uL Hgb 12.4 L (13.0-17.5) gm/dL Hct 38.1 L (39.0-53.0) % Neutrophils # 7.9 H (1.3-7.7) k/uL Monocytes # (0-1.0) k/uL Sodium 146 H (137-145) mmol/L Chloride 111 H (98-107) mmol/L Carbon Dioxide (22-30) mmol/L Glucose 103 H (74-99) mg/dL Alkaline Phosphatase (38-126) U/L Total Creatine Kinase (55-170) U/L Total Protein 6.2 L (6.3-8.2) g/dL Amylase (30-110) U/L Lipase (23-300) U/L Urine Protein 1+ H (Negative) Urine Ketones Trace H (Negative) Urine Mucus Many H (None) /hpf 07/19/17 Range/Units 08:38 WBC (3.8-10.6) k/uL Hgb (13.0-17.5) gm/dL Hct (39.0-53.0) % Neutrophils # (1.3-7.7) k/uL Monocytes # (0-1.0) k/uL Sodium (137-145) mmol/L Chloride (98-107) mmol/L Carbon Dioxide (22-30) mmol/L Glucose (74-99) mg/dL Alkaline Phosphatase (38-126) U/L Total Creatine Kinase (55-170) U/L Total Protein (6.3-8.2) g/dL Amylase (30-110) U/L Lipase 370 H (23-300) U/L Urine Protein (Negative) Urine Ketones (Negative) Urine Mucus (None) /hpf Diabetes panel 07/18/17 07/19/17 Range/Units 18:37 08:38 Sodium 146 H 146 H (137-145) mmol/L Potassium 3.7 3.8 (3.5-5.1) mmol/L Chloride 107 111 H (98-107) mmol/L Carbon Dioxide 21 L 23 (22-30) mmol/L BUN 18 14 (9-20) mg/dL Creatinine 0.90 0.71 (0.66-1.25) mg/dL Glucose 123 H 103 H (74-99) mg/dL Calcium 10.1 9.3 (8.4-10.2) mg/dL AST 36 32 (17-59) U/L ALT 35 37 (21-72) U/L Alkaline Phosphatase 150 H 124 (38-126) U/L Total Protein 7.6 6.2 L (6.3-8.2) g/dL Albumin 4.3 3.5 (3.5-5.0) g/dL Calcium panel 07/18/17 07/19/17 Range/Units 18:37 08:38 Calcium 10.1 9.3 (8.4-10.2) mg/dL Albumin 4.3 3.5 (3.5-5.0) g/dL Pituitary panel 07/18/17 07/19/17 Range/Units 18:37 08:38 Sodium 146 H 146 H (137-145) mmol/L Potassium 3.7 3.8 (3.5-5.1) mmol/L Chloride 107 111 H (98-107) mmol/L Carbon Dioxide 21 L 23 (22-30) mmol/L BUN 18 14 (9-20) mg/dL Creatinine 0.90 0.71 (0.66-1.25) mg/dL Glucose 123 H 103 H (74-99) mg/dL Calcium 10.1 9.3 (8.4-10.2) mg/dL Adrenal panel 07/18/17 07/19/17 Range/Units 18:37 08:38 Sodium 146 H 146 H (137-145) mmol/L Potassium 3.7 3.8 (3.5-5.1) mmol/L Chloride 107 111 H (98-107) mmol/L Carbon Dioxide 21 L 23 (22-30) mmol/L BUN 18 14 (9-20) mg/dL Creatinine 0.90 0.71 (0.66-1.25) mg/dL Glucose 123 H 103 H (74-99) mg/dL Calcium 10.1 9.3 (8.4-10.2) mg/dL Total Bilirubin 0.2 0.3 (0.2-1.3) mg/dL AST 36 32 (17-59) U/L ALT 35 37 (21-72) U/L Alkaline Phosphatase 150 H 124 (38-126) U/L Total Protein 7.6 6.2 L (6.3-8.2) g/dL Albumin 4.3 3.5 (3.5-5.0) g/dL Assessment and Plan Assessment: Impression Present on admission abdominal pain suspect due to acute pancreatitis Acute on chronic pancreatitis with a history of necrotizing hepatitis treated as [facility] History of necrotizing pancreatitis History of hepatitis C Obesity BMI 34 Episodic opiate abuse A major depressive disorder mood disorder bipolar History of a pancreatic stent placed which patient states has been removed History of a seizure disorder IV drug abuse in remission Plan Follow up on the ultrasound of the abdomen pending Continue IV hydration as ordered Pain control Monitor labs Further surgical recommendations pending will follow with you DVT and GI prophylaxis Obtain records from [facility] in [place] and [facility] in [place] Consult note dictated for Dr. frazier The above impression and plan of care have been discussed and directed by signing physician. Ana Meredith nurse practitioner acting as scribe for signing physician. <Donny Frazier - Last Filed: 07/19/17 16:18> Surgical - Exam Vital Signs Temp Pulse Resp BP Pulse Ox 99.1 F 126 H 20 136/87 97 07/18/17 17:52 07/18/17 17:52 07/18/17 17:52 07/18/17 17:52 07/18/17 17:52 Results - Labs 07/19/17 08:38 07/19/17 08:38 Abnormal Lab Results - Last 24 Hours (Table) 07/18/17 07/18/17 07/18/17 Range/Units 18:37 18:37 18:37 WBC 16.7 H (3.8-10.6) k/uL Hgb (13.0-17.5) gm/dL Hct (39.0-53.0) % Neutrophils # 11.7 H (1.3-7.7) k/uL Monocytes # 1.1 H (0-1.0) k/uL Sodium 146 H (137-145) mmol/L Chloride (98-107) mmol/L Carbon Dioxide 21 L (22-30) mmol/L Glucose 123 H (74-99) mg/dL Alkaline Phosphatase 150 H (38-126) U/L Total Creatine Kinase 35 L (55-170) U/L Total Protein (6.3-8.2) g/dL Amylase 178 H (30-110) U/L Lipase 628 H (23-300) U/L Urine Protein (Negative) Urine Ketones (Negative) Urine Mucus (None) /hpf 07/18/17 07/19/17 07/19/17 Range/Units 18:37 08:38 08:38 WBC 12.3 H (3.8-10.6) k/uL Hgb 12.4 L (13.0-17.5) gm/dL Hct 38.1 L (39.0-53.0) % Neutrophils # 7.9 H (1.3-7.7) k/uL Monocytes # (0-1.0) k/uL Sodium 146 H (137-145) mmol/L Chloride 111 H (98-107) mmol/L Carbon Dioxide (22-30) mmol/L Glucose 103 H (74-99) mg/dL Alkaline Phosphatase (38-126) U/L Total Creatine Kinase (55-170) U/L Total Protein 6.2 L (6.3-8.2) g/dL Amylase (30-110) U/L Lipase (23-300) U/L Urine Protein 1+ H (Negative) Urine Ketones Trace H (Negative) Urine Mucus Many H (None) /hpf 07/19/17 Range/Units 08:38 WBC (3.8-10.6) k/uL Hgb (13.0-17.5) gm/dL Hct (39.0-53.0) % Neutrophils # (1.3-7.7) k/uL Monocytes # (0-1.0) k/uL Sodium (137-145) mmol/L Chloride (98-107) mmol/L Carbon Dioxide (22-30) mmol/L Glucose (74-99) mg/dL Alkaline Phosphatase (38-126) U/L Total Creatine Kinase (55-170) U/L Total Protein (6.3-8.2) g/dL Amylase (30-110) U/L Lipase 370 H (23-300) U/L Urine Protein (Negative) Urine Ketones (Negative) Urine Mucus (None) /hpf Diabetes panel 07/18/17 07/19/17 Range/Units 18:37 08:38 Sodium 146 H 146 H (137-145) mmol/L Potassium 3.7 3.8 (3.5-5.1) mmol/L Chloride 107 111 H (98-107) mmol/L Carbon Dioxide 21 L 23 (22-30) mmol/L BUN 18 14 (9-20) mg/dL Creatinine 0.90 0.71 (0.66-1.25) mg/dL Glucose 123 H 103 H (74-99) mg/dL Calcium 10.1 9.3 (8.4-10.2) mg/dL AST 36 32 (17-59) U/L ALT 35 37 (21-72) U/L Alkaline Phosphatase 150 H 124 (38-126) U/L Total Protein 7.6 6.2 L (6.3-8.2) g/dL Albumin 4.3 3.5 (3.5-5.0) g/dL Calcium panel 07/18/17 07/19/17 Range/Units 18:37 08:38 Calcium 10.1 9.3 (8.4-10.2) mg/dL Albumin 4.3 3.5 (3.5-5.0) g/dL Pituitary panel 07/18/17 07/19/17 Range/Units 18:37 08:38 Sodium 146 H 146 H (137-145) mmol/L Potassium 3.7 3.8 (3.5-5.1) mmol/L Chloride 107 111 H (98-107) mmol/L Carbon Dioxide 21 L 23 (22-30) mmol/L BUN 18 14 (9-20) mg/dL Creatinine 0.90 0.71 (0.66-1.25) mg/dL Glucose 123 H 103 H (74-99) mg/dL Calcium 10.1 9.3 (8.4-10.2) mg/dL Adrenal panel 07/18/17 07/19/17 Range/Units 18:37 08:38 Sodium 146 H 146 H (137-145) mmol/L Potassium 3.7 3.8 (3.5-5.1) mmol/L Chloride 107 111 H (98-107) mmol/L Carbon Dioxide 21 L 23 (22-30) mmol/L BUN 18 14 (9-20) mg/dL Creatinine 0.90 0.71 (0.66-1.25) mg/dL Glucose 123 H 103 H (74-99) mg/dL Calcium 10.1 9.3 (8.4-10.2) mg/dL Total Bilirubin 0.2 0.3 (0.2-1.3) mg/dL AST 36 32 (17-59) U/L ALT 35 37 (21-72) U/L Alkaline Phosphatase 150 H 124 (38-126) U/L Total Protein 7.6 6.2 L (6.3-8.2) g/dL Albumin 4.3 3.5 (3.5-5.0) g/dL Assessment and Plan Assessment: Cholelithiasis, hydropic gallbladder. Patient will need laparoscopically stenting. Chronic patient had a pseudocyst. Patient will have repeat CAT scan performed. If the cyst is pressing on the posterior wall the stomach I may be able to perform a laparoscopic cyst gastrostomy. Patient will undergo repeat CAT scan of the abdomen today.
--- NOTE | 2017-07-19 11:36 | US ---
"EXAMINATION TYPE: US abdomen complete DATE OF EXAM: 07/19/2017 COMPARISON: CT abdomen and pelvis May 23, 2017 and older studies CLINICAL HISTORY: pseudocyst. Pancreatitis, history of ERCP 8 months ago EXAM MEASUREMENTS: Liver Length: 20.5 cm Gallbladder Wall: 0.2 cm CBD: 0.5 cm Spleen: 13.5 cm Right Kidney: 11.0 x 4.8 x 5.4 cm Left Kidney: 10.9 x 5.3 x 4.8 cm Pancreas: 8.1 x 5.8 x 7.8cm pseudocyst anterior body, visualization of pancreas limited by overlying midline bowel gas Liver: enlarged, heterogeneous with 2.7cm hypoechoic area adjacent to gallbladder, possible focal sp arring, increased attenuation, increased echogenicity Gallbladder: appears hydropic, multiple echogenic shadowing foci seen, possible small amount of norah cholecystic fluid seen, wall measures wnl Evidence for sonographic Dahl's sign: yes CBD: visualized portions wnl, limited by overlying bowel gas Spleen: wnl Right Kidney: wnl Left Kidney: wnl Upper IVC: wnl Abd Aorta: visualized portions wnl, limited by overlying midline bowel gas There is redemonstration of simple appearing thin-walled cyst measuring up to 8.1 cm in size in the c entral pancreas likely reflecting pseudocysts given review of prior CTs. There is perhaps slightly la rger in size on ultrasound as maximum measurement is 6.2 cm coronal image [address] There is suboptim al visualization of pancreas due to shadowing from overlying bowel gas per technologist's overall. Liver is heterogeneously hyperechoic correlates with fatty infiltration on multiple CTs. Within gallb ladder there are small mobile shadowing gallstones. Technologist identifies trace pericholecystic flu id near gallbladder fossa. No suspicious gallbladder wall thickening is seen. Sonographic Dahl's si gn is positive per technologist. Spleen is mildly enlarged at 13.5 cm on long axis, this correlates with CT. No suspicious focal intra splenic lesion is seen. Scanning of both kidneys is unremarkable. IMPRESSION: 1. Redemonstration of peripancreatic cystic lesion probable pseudocyst measuring up to 8.1 cm in size on ultrasound, felt slightly enlarged versus most recent CT. 2. Small gallstones and/or gallbladder sludge with tiny amount of adjacent pericholecystic fluid and positive sonographic Dahl's sign, acute cholecystitis cannot be excluded with suspected clinically. Consider HIDA scan to further evaluate. 3. Fatty infiltration of liver and mild splenomegaly redemonstrated. A Yellow level critical message alert has been initiated for Bandar Camacho MD via the [employer] 36 0 | Critical Results System on 07/19/2017 11:34 AM. This message alert has been sent to Bandar Camacho MD via the preferences provided by the clinician for the receipt of Radiology Critical Findings. [facility] – [place] [id number]."
[2017-07-19 12:05] LABS: Glucose,Whole Blood 99 mg/dL (75-99)
[2017-07-19] MEDS ORDERED: RX INFO: IV CONTRAST WAS GIVEN 1 EACH MISC MISCELLANE PRN (16:19)
[2017-07-19] MEDS: IOPAMIDOL-300 CONTRAST 30 ML VIAL (ORAL USE) PO PRN ×2 (17:16→18:05)
[2017-07-19 17:35] LABS: Glucose,Whole Blood 110 mg/dL (75-99)
--- NOTE | 2017-07-19 18:35 | CONS ---
CONSULTATION DATE OF CONSULTATION: 07/19/17 REASON FOR CONSULTATION: Abdominal pain, nausea, vomiting. HISTORY OF PRESENT ILLNESS: The patient is a 42-year-old white male presents to the hospital with abdominal pain for the last 2-3 weeks duration. The pain is mostly in the epigastric and left upper quadrant area. The pain has been progressively getting worse. He went to [facility] and was admitted for 3 days and was diagnosed with acute pancreatitis and was discharged home. Apparently, the pain continued to progressively get worse and hence he came to the emergency room at [facility] yesterday and subsequently admitted for further evaluation. He did have an ultrasound of the abdomen done this morning that showed 8 cm pseudocyst in the pancreas and hence we are consulted in regards to this issue. The patient state he had an episode of acute pancreatitis last year, which was complicated by a large pseudocyst. Initially it was percutaneously drained and in September of 2016, he had an ERCP with pancreatic stenting done as a part of management of pseudocyst. The patient states that 4 weeks later he went to [facility] and had a repeat ERCP with stent removal. He thinks that he follow up with GI at [facility], but is not sure whether the cyst was completely resolved at that time. In any event, he is now admitted to the hospital with worsening abdominal pain and recurrent pseudocyst formation. PAST MEDICAL HISTORY: Significant for recurrent acute pancreatitis complicated with pseudocyst formation as mentioned above, a year ago that was drained with ERCP and percutaneously, history of bipolar disorder, chronic hepatitis C infection that was treated 6 years ago, history of intravenous drug use and seizure disorder. PAST SURGICAL HISTORY: Appendectomy, eye surgery. SOCIAL HISTORY: No alcohol use. He only drinks socially. Intravenous drug use. FAMILY HISTORY: Brother had chronic alcoholism. Sister also has chronic alcoholism. MEDICATIONS: At home: Omeprazole, Remeron, Zyprexa; Lamictal and Motrin. ALLERGIES: ALLERGIES TO LASIX, HALDOL, PROCHLORPERAZINE, CODEINE. REVIEW OF SYSTEMS: Cardiopulmonary: Denies any chest pain, shortness of breath. GENITOURINARY: No dysuria or hematuria. Musculoskeletal unremarkable. Skin unremarkable. Endocrine unremarkable. Psychiatric: Bipolar disorder. Neurological: Unremarkable. ENT vision unremarkable. Constitutional: No recent weight loss. No fever, chills, night sweats. PHYSICAL EXAMINATION: Blood pressure 165/98, pulse rate 91, temperature 97. HEENT examination unremarkable. Conjunctivae pink. Sclerae anicteric. Oral cavity no lesions. Neck: No jugular venous distention or lymph node enlargement. Chest was clear to auscultation. HEART: Regular rate and rhythm. ABDOMEN: Soft. There was mild tenderness in the epigastric and left upper quadrant area. Bowel sounds are positive. No organomegaly. Extremities no pedal edema. Skin no rashes. NEUROLOGIC: Alert and oriented x3. No focal deficits. LAB: WBC 16.7, hemoglobin 14, platelets normal. Basic metabolic panel is normal limits. Amylase 178, lipase 628, ALT AST T-bilirubin normal, alkaline phosphatase 150. Ultrasound of the abdomen showed an 8.1 cm cyst in the pancreas. IMPRESSION: This is a patient with acute recurrent pancreatitis complicated with pseudocyst formation. Ultrasound of the abdomen showed an 8 cm cyst. He had a similar episode in September of 2016 at which time acute necrotizing pancreatitis was complicated with pseudocyst formation, which was drained percutaneously followed by ERCP with PD stenting at [facility], which was subsequently removed. Etiology of pancreatitis remains unclear. The patient denies any alcohol abuse. RECOMMENDATION: 1. Keep him n.p.o. 2. Pain medications as needed. 3. CT of the abdomen and pelvis to further define the cyst and based on that, we will give further recommendations if the cyst has to be drained. 4. We will follow with you closely. Thank you for this consultation. MMODL / IJN: [id number] /
--- NOTE | 2017-07-19 18:59 | CT ---
EXAMINATION TYPE: CT abdomen pelvis w con DATE OF EXAM: 07/19/2017 COMPARISON: 05/23/2017 HISTORY: Pancreatic pseudocyst pain CT DLP: mGycm Automated exposure control for dose reduction was used. TECHNIQUE: Helical acquisition of images was performed from the lung bases through the pelvis. CONTRAST: Omnipaque 100 mL. IV. FINDINGS: There is patchy linear density at the lung bases consistent with subsegmental atelectasis. There is n o pleural effusion. There is decreased density in the liver consistent with fatty infiltration. There is no evidence of a splenic mass. There is a 7.5 cm rounded cystic mass in the anterior aspect of th e body of the pancreas. Pancreatic duct does not appear dilated. Intrahepatic bile ducts are not dila buddy. Gallbladder appears normal. There is no adrenal mass. Kidneys show satisfactory contrast opacification. There is no hydronephrosi s. There is no retroperitoneal adenopathy. There is no ascites. Bladder distends smoothly. I see no intestinal wall thickening. There are no dilated loops. There is no sign of appendicitis. Robert ny structures are intact.: IMPRESSION: LARGE CYSTIC MASS IN THE ANTERIOR BODY OF THE PANCREAS CONSISTENT WITH A PSEUDOCYST THAT HAS INCREASE D COMPARED TO 05/23/2017. THE INCREASE IS FROM 5 CM TO 7.5 CM. I THINK THAT FOLLOW-UP IS WARRANTED TO SHOW STABILITY OR CLEARING. NO DILATED DUCTS. FATTY INFILTRATION OF THE LIVER. PATCHY SUBSEGMENTAL AT ELECTASIS AT THE LUNG BASES IS NEW COMPARED TO OLD EXAM.
[2017-07-19] MEDS: lamoTRIgine 100 MG TAB PO SCH (20:02)
[2017-07-19] MEDS: OLANZapine ODT 10 MG TAB PO SCH (20:02)
[2017-07-19] MEDS: MIRTAZAPINE 15 MG TAB PO SCH (20:02)
[2017-07-19 20:34] LABS: Glucose,Whole Blood 97 mg/dL (75-99)
[2017-07-20] MEDS: MORPHINE SULFATE/PF 10MG/10ML VL IVP PRN ×6 (00:11→20:26)
[2017-07-20] MEDS: ONDANSETRON 4 MG/2 ML VIAL IVP PRN (00:11)
[2017-07-20] MEDS: SODIUM CHLORIDE 0.9% 1,000 ML IV SCH ×3 (05:11→14:38)
[2017-07-20 07:02] LABS: Glucose,Whole Blood 106 mg/dL (75-99)
[2017-07-20] MEDS: lamoTRIgine 100 MG TAB PO SCH ×2 (08:24→20:38)
[2017-07-20] MEDS: PANTOPRAZOLE 40 MG/10 ML VIAL IVP SCH ×2 (08:24→20:40)
[2017-07-20 09:35] LABS: ALT 39 U/L (21-72); AST 40 U/L (17-59); Albumin 3.4 g/dL (3.5-5.0); Alkaline Phosphatase 124 U/L (38-126); Amylase 152 U/L (30-110); Anion Gap 11 mmol/L; Blood Urea Nitrogen 9 mg/dL (9-20); Calcium 8.9 mg/dL (8.4-10.2); Carbon Dioxide 23 mmol/L (22-30); Chloride 110 mmol/L (98-107); Glucose 98 mg/dL (74-99); Lipase 344 U/L (23-300); Potassium 4.1 mmol/L (3.5-5.1); Sodium 144 mmol/L (137-145); Total Bilirubin 0.3 mg/dL (0.2-1.3)
--- NOTE | 2017-07-20 10:59 | P.PN ---
Subjective Progress Note Date: 07/20/17 42-year-old male seen and examined at bedside. Continues to report having abdominal pain that he has been experiencing for several weeks. Patient points to the midepigastric area states it radiates to the left upper quadrant. Reports no nausea vomiting. CAT scan of the abdomen pelvis with contrast done yesterday reviewing the report indicate large cystic mass in the anterior body of the pancreas consistent with a pseudocyst that has increased compared to prior exam done in April 2017 the increases from 5 cm to 7.5 cm Objective - Vital Signs Vital signs: Vital Signs Temp 97.4 F L 07/20/17 05:59 Pulse 58 L 07/20/17 05:59 Resp 16 07/20/17 05:59 BP 128/76 07/20/17 05:59 Pulse Ox 96 07/20/17 05:59 Intake & Output 07/19/17 07/20/17 07/20/17 18:59 06:59 18:59 Other: # Voids 4 2 - Exam Physical exam 42-year-old male sitting up in bed talkative oriented 3 appears in no acute distress states pain medication effective for pain control Lungs adequate air movement bilaterally on room air Heart S1-S2 audible regular Abdomen nondistended tenderness to the epigastric area no nausea no vomiting no frequent stooling urinating no difficulty Extremities no edema - Labs CBC & Chem 7: 07/19/17 08:38 07/20/17 08:34 Labs: Abnormal Lab Results - Last 24 Hours (Table) 07/19/17 07/20/17 07/20/17 Range/Units 17:19 07:00 08:34 Chloride 110 H (98-107) mmol/L POC Glucose (mg/dL) 110 H 106 H (75-99) mg/dL Total Protein 6.0 L (6.3-8.2) g/dL Albumin 3.4 L (3.5-5.0) g/dL Amylase 152 H (30-110) U/L Lipase 344 H (23-300) U/L Assessment and Plan Assessment: Impression Present on admission abdominal pain suspect due to acute pancreatitis Acute on chronic pancreatitis with a history of necrotizing hepatitis treated as [facility] History of necrotizing pancreatitis History of hepatitis C Obesity BMI 34 Episodic opiate abuse A major depressive disorder mood disorder bipolar History of a pancreatic stent placed which patient states has been removed History of a seizure disorder IV drug abuse in remission CAT scan abdomen pelvis done on July 19 show large cystic mass increased from 5 cm to 7.5 compared to study done in April 2017 Plan Nothing by mouth after midnight for laparoscopic possible open cholecystectomy Continue IV hydration as ordered Pain control Monitor labs Further surgical recommendations pending will follow with you DVT and GI prophylaxis note dictated for Dr. frazier The above impression and plan of care have been discussed and directed by signing physician. Ana Meredith nurse practitioner acting as scribe for signing physician.
--- NOTE | 2017-07-20 11:11 | P.PN ---
Subjective Progress Note Date: 07/20/17 Principal diagnosis: Pancreatitis pseudocyst 42-year-old male with a history of pancreatitis pseudocyst admitted with pancreatitis. Still reports abdominal pain. CT reported large cystic mass of the pancreas consistent with pseudocyst about 7.5 cm. No dilated ducts. Lipase 344. LFTs within normal limits. Afebrile. Objective - Vital Signs Vital signs: Vital Signs Temp 97.4 F L 07/20/17 05:59 Pulse 58 L 07/20/17 05:59 Resp 16 07/20/17 05:59 BP 128/76 07/20/17 05:59 Pulse Ox 96 07/20/17 05:59 Intake & Output 07/19/17 07/20/17 07/20/17 18:59 06:59 18:59 Other: # Voids 4 2 - Exam General appearance: The patient is alert, oriented, in no acute distress. HET: Head is normocephalic and atraumatic. Pupils are equal and reactive. Oropharynx is clear without lesions. Neck: Supple without lymphadenopathy. Trachea midline. Heart: S1 S2. Regular rate and rhythm. Lungs: No crackles or wheezes are heard. Abdomen: Soft, tenderness midepigastrium left upper quadrant, nondistended with bowel sounds. No peritoneal signs. No palpable organomegaly or masses. Extremities: Normal skin color and turgor. No cyanosis, rash, ulceration, clubbing, or edema. Radial and pedal pulses are 2/4 bilaterally. Neurological: No focal deficits. Strength and sensation are grossly intact. - Labs CBC & Chem 7: 07/19/17 08:38 07/20/17 08:34 Labs: Abnormal Lab Results - Last 24 Hours (Table) 07/19/17 07/20/17 07/20/17 Range/Units 17:19 07:00 08:34 Chloride 110 H (98-107) mmol/L POC Glucose (mg/dL) 110 H 106 H (75-99) mg/dL Total Protein 6.0 L (6.3-8.2) g/dL Albumin 3.4 L (3.5-5.0) g/dL Amylase 152 H (30-110) U/L Lipase 344 H (23-300) U/L Assessment and Plan (1) Pancreatic pseudocyst Current Visit: Yes Status: Acute Code(s): K86.3 - PSEUDOCYST OF PANCREAS SNOMED Code(s): 438731639 (2) Pancreatitis Current Visit: Yes Status: Acute Code(s): K85.90 - ACUTE PANCREATITIS WITHOUT NECROSIS OR INFECTION, UNSP SNOMED Code(s): 72234562 Plan: 1. General surgery following patient closely tentative plans for OR later this week possible drainage of pseudocyst possible cholecystectomy. 2. Continue supportive measures. We'll follow as needed. Assessment and plan a care discussed with Dr. Quiroga
--- NOTE | 2017-07-20 12:58 | HP ---
HISTORY AND PHYSICAL DATE OF SERVICE: 07/19/2017. CHIEF COMPLAINT: This is a white male, admitted to hospital with pancreatic pseudocyst and pancreatitis. It looks like on ultrasound he has acute cholecystitis due to abnormal gallbladder function, which may be the cause of his chronic pancreatitis and pseudocyst he has had over the last year. He has history of bipolar. He is on multiple medications for psychiatric, otherwise he is having no chest pain, shortness of breath. No , syncope. Discussed the case with Dr. Hicks. Home medications, see less psychiatric drugs x3. 14 POINT REVIEW OF SYSTEM: Negative except for as mentioned in HPI. PHYSICAL EXAM: BP 120s/70s, respiratory 20 to 18. GI: Soft, mild tenderness to palpation, diffuse closer to mid abdomen, mild guarding, right upper quadrant tenderness. Positive Dahl sign. CARDIOVASCULAR: S1, S2. LUNGS: Clear. PSYCH: Fair mood and affect. NEUROLOGIC: Alert, orient x3. OPHTHALMOLOGIC: Pupils equal, round, react to light and accommodation. ASSESSMENT: Acute pancreatic pseudocyst, enlarging, 8 cm possibly percutaneous drainage or drainage during a cholecystectomy will be done by Dr. Hicks. Pain medications were given. Care reviewed with Dr. Hicks. Psych medications will be continued. MMODL / IJN: [id number] /
[2017-07-20 13:09] LABS: Glucose,Whole Blood 102 mg/dL (75-99)
[2017-07-20] MEDS: HEPARIN SODIUM,PORCINE 5,000 UNIT/ML 1 ML VIAL SQ SCH (17:15)
[2017-07-20 17:32] LABS: Glucose,Whole Blood 129 mg/dL (75-99)
[2017-07-20] MEDS: MIRTAZAPINE 15 MG TAB PO SCH (20:38)
[2017-07-20] MEDS: OLANZapine ODT 10 MG TAB PO SCH (20:39)
[2017-07-20 21:00] LABS: Glucose,Whole Blood 142 mg/dL (75-99)
[2017-07-21] MEDS: MORPHINE SULFATE/PF 10MG/10ML VL IVP PRN ×6 (00:04→20:55)
[2017-07-21] MEDS: SODIUM CHLORIDE 0.9% 1,000 ML IV SCH ×4 (01:23→20:45)
[2017-07-21] MEDS: HEPARIN SODIUM,PORCINE 5,000 UNIT/ML 1 ML VIAL SQ SCH ×5 (01:23→23:56)
[2017-07-21] MEDS ORDERED: MORPHINE SULFATE 4 MG/ML SYRINGE IV PRN (05:47)
[2017-07-21] MEDS: LACTATED RINGERS 1,000 ML IV SCH (07:36)
[2017-07-21 07:44] LABS: Glucose,Whole Blood 114 mg/dL (75-99)
[2017-07-21] MEDS: lamoTRIgine 100 MG TAB PO SCH ×2 (07:49→20:01)
[2017-07-21] MEDS: PANTOPRAZOLE 40 MG/10 ML VIAL IVP SCH ×2 (07:49→20:01)
[2017-07-21 09:35] LABS: Basophils % (A) 0 %; Eosinophils # (A) 0.3 k/uL (0-0.7); Eosinophils % (A) 4 %; HCT 37.6 % (39.0-53.0); Lymphocytes # (A) 1.5 k/uL (1.0-4.8); Lymphocytes % (A) 18 %; MCH 27.5 pg (25.0-35.0); Mean Platelet Volume 9.1; Monocytes # (A) 0.5 k/uL (0-1.0); Monocytes % (A) 6 %; Neutrophils # (A) 5.9 k/uL (1.3-7.7); Neutrophils % (A) 71 %; Platelet Count 181 k/uL (150-450); RBC 4.37 m/uL (4.30-5.90); RDW 13.6 % (11.5-15.5); WBC 8.3 k/uL (3.8-10.6)
[2017-07-21 10:08] LABS: ALT 36 U/L (21-72); AST 24 U/L (17-59); Albumin 3.3 g/dL (3.5-5.0); Alkaline Phosphatase 113 U/L (38-126); Anion Gap 15 mmol/L; Blood Urea Nitrogen 6 mg/dL (9-20); Calcium 8.9 mg/dL (8.4-10.2); Carbon Dioxide 20 mmol/L (22-30); Chloride 111 mmol/L (98-107); Glucose 98 mg/dL (74-99); Lipase 187 U/L (23-300); Potassium 3.7 mmol/L (3.5-5.1); Sodium 146 mmol/L (137-145); Total Bilirubin 0.3 mg/dL (0.2-1.3); Total Protein 5.9 g/dL (6.3-8.2)
[2017-07-21 12:09] LABS: Glucose,Whole Blood 110 mg/dL (75-99)
[2017-07-21] MEDS: ONDANSETRON 4 MG/2 ML VIAL IVP PRN (14:36)
[2017-07-21] MEDS ORDERED: DEXAMETHASONE SOD PHOSPHATE 10 MG/ML 1 ML VIAL IV ONE (14:37)
[2017-07-21] MEDS ORDERED: IV FLUID CONTINUATION 1,000 ML IV ONE ×2 (14:38)
[2017-07-21] MEDS ORDERED: PROPOFOL 10 MG/ML 20 ML VIAL IV ONE ×2 (14:56)
[2017-07-21] MEDS ORDERED: MIDAZOLAM 2 MG/2 ML VIAL ONE ×2 (14:56)
[2017-07-21] MEDS ORDERED: MORPHINE SULFATE 10 MG/ML SYRINGE ONE ×2 (14:56)
[2017-07-21] MEDS ORDERED: ROCURONIUM BROMIDE 10 MG/ML 10 ML VIAL IV ONE ×2 (14:56)
[2017-07-21] MEDS ORDERED: fentaNYL (PF) 50 MCG/ML 2 ML AMP ONE ×2 (14:56)
[2017-07-21] MEDS ORDERED: LIDOCAINE 1% INJ 10MG/ML (20 ML MDV) ONE ×2 (14:56)
[2017-07-21] MEDS ORDERED: GLYCOPYRROLATE 0.2 MG/ML 2 ML VIAL ONE ×2 (14:56)
[2017-07-21] MEDS ORDERED: SUCCINYLCHOLINE CHLORIDE 100 MG/5 ML SYR IV ONE ×2 (14:56)
[2017-07-21] MEDS ORDERED: NEOSTIGMINE 1 MG/ML 10 ML VIAL ONE ×2 (14:56)
[2017-07-21 15:04] VITALS: BMI 34.4
[2017-07-21] MEDS ORDERED: BUPIVACAINE (PF) 0.5% 30 ML VIAL SQ ONE (15:26)
[2017-07-21] MEDS ORDERED: LACTATED RINGERS 1,000 ML IV ONE (15:40)
[2017-07-21 17:34] LABS: Glucose,Whole Blood 137 mg/dL (75-99)
--- NOTE | 2017-07-21 17:57 | P.OP ---
Date of Procedure: 07/21/17 Preoperative Diagnosis: Cholelithiasis Postoperative Diagnosis: Cholelithiasis Cholecystitis Procedure(s) Performed: Laparoscopic cholecystectomy Anesthesia: MAC Surgeon: Donny Hicks Estimated Blood Loss (ml): 5 Pathology: other (Gallbladder) Condition: stable Disposition: PACU Description of Procedure: The patient was placed on the operating table. The patient received a general endotracheal tube anesthesia. The patients abdomen was prepped and draped in the usual sterile fashion. Through an infraumbilical stab incision, the fascia of the anterior abdominal wall was grasped with a pair of Kochers and then the Veress needle was placed in the peritoneal cavity. Position of the Veress needle was confirmed with positive drop test. The abdomen was then insufflated. After adequate insufflation, the 10 mm trocar was placed in the peritoneal cavity. Following this the laparoscope was placed in the peritoneal cavity. The patient was placed in the head-up, right side up position and then a 5 mm trocar was placed in the right lateral and right subcostal position under direct visualization. A 8 mm trocar was placed in the epigastric position. The gallbladder was grasped in the fundus and infundibulum. Traction on the gallbladder was placed in the lateral and the cephalad positions. The triangle of Calot was visualized.. The cystic duct was bluntly dissected until the union of the cystic duct and common bile duct was seen. The cystic duct was then divided and sealed with the Harmonic scissors. A PDS Endoloop was then placed throughout the cystic duct stump. The cystic artery divided and sealed with the Harmonic scissors. The gallbladder was then removed from the liver bed using Harmonic scissors. The gallbladder was then extracted through the epigastric port site. Operative field was checked for any bleeding spots and Harmonic scissors was used to coagulate the liver bed. The abdomen was irrigated. The trocars were removed. The skin was closed using interrupted 3-0 Vicryl suture. Dermabond dressing were applied. The patient tolerated the procedure well.
[2017-07-21] MEDS: MIRTAZAPINE 15 MG TAB PO SCH (20:01)
[2017-07-21] MEDS: OLANZapine ODT 10 MG TAB PO SCH (20:01)
[2017-07-21 21:37] LABS: Glucose,Whole Blood 198 mg/dL (75-99)
[2017-07-22] MEDS: MORPHINE SULFATE/PF 10MG/10ML VL IVP PRN ×3 (01:14→08:53)
[2017-07-22] MEDS: ACETAMINOPHEN TAB 325 MG TAB PO PRN ×2 (02:21→21:59)
[2017-07-22] MEDS: PIPERACILLIN-TAZOBACTAM 3.375 GM in DEXTROSE/WATER 1 50ML.BAG IVPB SCH ×3 (02:25→15:16)
[2017-07-22] MEDS: SODIUM CHLORIDE 0.9% 1,000 ML IV SCH ×3 (04:27→23:58)
[2017-07-22 04:43] LABS: Basophils % (A) 0 %; Eosinophils # (A) 0.1 k/uL (0-0.7); Eosinophils % (A) 1 %; HGB 12.4 gm/dL (13.0-17.5); Lymphocytes # (A) 1.8 k/uL (1.0-4.8); Lymphocytes % (A) 12 %; MCH 28.2 pg (25.0-35.0); MCHC 33.4 g/dL (31.0-37.0); MCV 84.3 fL (80.0-100.0); Mean Platelet Volume 8.3; Monocytes # (A) 0.6 k/uL (0-1.0); Monocytes % (A) 4 %; Neutrophils # (A) 11.9 k/uL (1.3-7.7); Neutrophils % (A) 81 %; Platelet Count 223 k/uL (150-450); RBC 4.39 m/uL (4.30-5.90); RDW 13.4 % (11.5-15.5); WBC 14.6 k/uL (3.8-10.6)
[2017-07-22 04:49] LABS: ALT 30 U/L (21-72); AST 27 U/L (17-59); Albumin 3.4 g/dL (3.5-5.0); Alkaline Phosphatase 100 U/L (38-126); Anion Gap 13 mmol/L; Blood Urea Nitrogen 4 mg/dL (9-20); Calcium 9.2 mg/dL (8.4-10.2); Carbon Dioxide 23 mmol/L (22-30); Chloride 106 mmol/L (98-107); Glucose 191 mg/dL (74-99); Lipase 372 U/L (23-300); Potassium 3.4 mmol/L (3.5-5.1); Sodium 142 mmol/L (137-145); Total Bilirubin 0.8 mg/dL (0.2-1.3); Total Protein 6.2 g/dL (6.3-8.2)
[2017-07-22] MEDS: LACTATED RINGERS 1,000 ML IV SCH (07:06)
[2017-07-22] MEDS: PANTOPRAZOLE 40 MG/10 ML VIAL IVP SCH (07:28)
[2017-07-22] MEDS: lamoTRIgine 100 MG TAB PO SCH ×2 (07:28→21:58)
[2017-07-22] MEDS: HEPARIN SODIUM,PORCINE 5,000 UNIT/ML 1 ML VIAL SQ SCH ×2 (07:29→15:16)
[2017-07-22 07:44] LABS: Glucose,Whole Blood 128 mg/dL (75-99)
--- NOTE | 2017-07-22 09:42 | PN ---
PROGRESS NOTE DATE OF SERVICE: 07/21/2017 SUBJECTIVE: This is a 42-year-old white male who has underwent cholecystectomy today and he will undergo pancreatic cyst removal in about 2 weeks. Continue with post cholecystitis surgery and recommendations per surgery. Cardiovascular S1-S2. Lungs clear. GI soft. Hematology negative Homans. Psych fair mood and affect. ASSESSMENT: 1. Acute cholecystitis. 2. Acute pancreatitis. 3. Pancreatic pseudocyst. 4. Abdominal pain secondary to pancreatic pseudocyst and cholecystitis. 5. Bipolar disorder. Possible discharge home tomorrow depending on Dr. Hicks, the surgeon's recommendations. Diet will be advanced after surgery. MMODL / IJN: [id number] /
--- NOTE | 2017-07-22 09:46 | P.PN ---
Subjective Progress Note Date: 07/22/17 42-year-old seen and examined at the bedside reportedly experiencing right lower quadrant pain. Heating pad to the abdominal wall. Patient reportedly had a temp of 101.1 at midnight last night current temp is 97.4. Patient does report having gas discomfort. Patient states he did ambulate in the hallway at 3 AM this morning. Patient states passing gas no stool tolerating diet surgical sites well approximated no redness. The white count is 14.6 this morning Postop July 21 laparoscopic cholecystectomy for cholelithiasis cholecystitis Objective - Vital Signs Vital signs: Vital Signs Temp 97.4 F L 07/22/17 06:29 Pulse 99 07/22/17 06:29 Resp 18 07/22/17 06:29 BP 127/70 07/22/17 06:29 Pulse Ox 95 07/22/17 06:29 Intake & Output 07/21/17 07/22/17 07/22/17 18:59 06:59 18:59 Intake Total 700 637 Output Total 305 1400 Balance 395 -763 Weight 108.862 kg Intake: IV 700 Oral 637 Output: Urine 300 1400 Estimated Blood Loss 5 Other: # Voids 1 2 - Exam Physical exam 42-year-old resting in bed requesting pain medication no reports of nausea vomiting reports having right lower quadrant abdominal discomfort Lungs adequate air movement bilaterally on room air no cough noted heart S1-S2 audible regular Abdomen surgical incision sites no redness dressings dry hypoactive bowel tones states urinating states passing gas tolerating diet no nausea no vomiting Extremities no edema - Labs CBC & Chem 7: 07/22/17 04:21 07/22/17 04:21 Labs: Abnormal Lab Results - Last 24 Hours (Table) 07/21/17 07/21/17 07/21/17 Range/Units 08:40 08:40 12:04 WBC (3.8-10.6) k/uL Hgb 12.0 L (13.0-17.5) gm/dL Hct 37.6 L (39.0-53.0) % Neutrophils # (1.3-7.7) k/uL Sodium 146 H (137-145) mmol/L Potassium (3.5-5.1) mmol/L Chloride 111 H (98-107) mmol/L Carbon Dioxide 20 L (22-30) mmol/L BUN 6 L (9-20) mg/dL Creatinine 0.64 L (0.66-1.25) mg/dL Glucose (74-99) mg/dL POC Glucose (mg/dL) 110 H (75-99) mg/dL Plasma Lactic Acid Mynor (0.7-2.0) mmol/L Total Protein 5.9 L (6.3-8.2) g/dL Albumin 3.3 L (3.5-5.0) g/dL Lipase (23-300) U/L 07/21/17 07/21/17 07/22/17 Range/Units 17:22 21:16 00:01 WBC (3.8-10.6) k/uL Hgb (13.0-17.5) gm/dL Hct (39.0-53.0) % Neutrophils # (1.3-7.7) k/uL Sodium (137-145) mmol/L Potassium (3.5-5.1) mmol/L Chloride (98-107) mmol/L Carbon Dioxide (22-30) mmol/L BUN (9-20) mg/dL Creatinine (0.66-1.25) mg/dL Glucose (74-99) mg/dL POC Glucose (mg/dL) 137 H 198 H (75-99) mg/dL Plasma Lactic Acid Mynor 3.5 H* (0.7-2.0) mmol/L Total Protein (6.3-8.2) g/dL Albumin (3.5-5.0) g/dL Lipase (23-300) U/L 07/22/17 07/22/17 07/22/17 Range/Units 04:21 04:21 04:21 WBC 14.6 H (3.8-10.6) k/uL Hgb 12.4 L (13.0-17.5) gm/dL Hct 37.0 L (39.0-53.0) % Neutrophils # 11.9 H (1.3-7.7) k/uL Sodium (137-145) mmol/L Potassium 3.4 L (3.5-5.1) mmol/L Chloride (98-107) mmol/L Carbon Dioxide (22-30) mmol/L BUN 4 L (9-20) mg/dL Creatinine (0.66-1.25) mg/dL Glucose 191 H (74-99) mg/dL POC Glucose (mg/dL) (75-99) mg/dL Plasma Lactic Acid Mynor 2.5 H* (0.7-2.0) mmol/L Total Protein 6.2 L (6.3-8.2) g/dL Albumin 3.4 L (3.5-5.0) g/dL Lipase 372 H (23-300) U/L 07/22/17 Range/Units 07:14 WBC (3.8-10.6) k/uL Hgb (13.0-17.5) gm/dL Hct (39.0-53.0) % Neutrophils # (1.3-7.7) k/uL Sodium (137-145) mmol/L Potassium (3.5-5.1) mmol/L Chloride (98-107) mmol/L Carbon Dioxide (22-30) mmol/L BUN (9-20) mg/dL Creatinine (0.66-1.25) mg/dL Glucose (74-99) mg/dL POC Glucose (mg/dL) 128 H (75-99) mg/dL Plasma Lactic Acid Mynor (0.7-2.0) mmol/L Total Protein (6.3-8.2) g/dL Albumin (3.5-5.0) g/dL Lipase (23-300) U/L Assessment and Plan Assessment: Impression Present on admission abdominal pain suspect due to acute pancreatitis Acute on chronic pancreatitis with a history of necrotizing hepatitis treated as [facility] History of necrotizing pancreatitis History of hepatitis C Obesity BMI 34 Episodic opiate abuse A major depressive disorder mood disorder bipolar History of a pancreatic stent placed which patient states has been removed History of a seizure disorder IV drug abuse in remission CAT scan abdomen pelvis done on July 19 show large cystic mass increased from 5 cm to 7.5 compared to study done in April 2017 Postop July 21 laparoscopic cholecystectomy for cholecystitis cholelithiasis Plan Continue postop surgical care Encourage ambulation Consult Dr. Escamilla Stop IV pain medication titrate oral Continue IV hydration as ordered Pain control Monitor labs Further surgical recommendations pending will follow with you DVT and GI prophylaxis note dictated for Dr. frazier The above impression and plan of care have been discussed and directed by signing physician. Ana Meredith nurse practitioner acting as scribe for signing physician.
[2017-07-22] MEDS ORDERED: ONDANSETRON 4 MG TAB PO PRN (09:50)
[2017-07-22] MEDS: KETOROLAC 30 MG/ML 1 ML VIAL IVP SCH ×3 (11:32→23:53)
[2017-07-22] MEDS ORDERED: SODIUM CHLORIDE 0.9% 1,000 ML IV ONE (11:42)
[2017-07-22 12:24] LABS: Glucose,Whole Blood 112 mg/dL (75-99)
[2017-07-22 16:44] LABS: Glucose,Whole Blood 143 mg/dL (75-99)
[2017-07-22 21:08] LABS: Glucose,Whole Blood 143 mg/dL (75-99)
[2017-07-22] MEDS: MIRTAZAPINE 15 MG TAB PO SCH (21:58)
[2017-07-22] MEDS: OLANZapine ODT 10 MG TAB PO SCH (21:58)
[2017-07-23] MEDS: HEPARIN SODIUM,PORCINE 5,000 UNIT/ML 1 ML VIAL SQ SCH ×3 (00:13→14:56)
[2017-07-23] MEDS: PIPERACILLIN-TAZOBACTAM 3.375 GM in DEXTROSE/WATER 1 50ML.BAG IVPB SCH ×4 (00:15→23:09)
[2017-07-23] MEDS: IBUPROFEN 600 MG TAB PO PRN (02:49)
[2017-07-23] MEDS: LACTATED RINGERS 1,000 ML IV SCH (05:40)
[2017-07-23] MEDS: KETOROLAC 30 MG/ML 1 ML VIAL IVP SCH ×4 (05:59→23:11)
[2017-07-23] MEDS: SODIUM CHLORIDE 0.9% 1,000 ML IV SCH ×3 (06:01→21:57)
--- NOTE | 2017-07-23 07:13 | PN ---
PROGRESS NOTE SUBJECTIVE: A 42-year-old white male who is admitted with pancreatic pseudocyst, status post cholecystectomy, scheduled for possible discharge home next 24 to 48 hours. Toradol for pain relief. VITAL SIGNS: Stable, afebrile. CARDIOVASCULAR: S1, S2. LUNGS: Clear. GI: Soft. Incision clean, dry, intact. ASSESSMENT: 1. Pancreatic pseudocyst, status post cholecystectomy. 2. Depression, mood disorder, bipolar. Continue current postop care. Possible discharge home in the next 24 to 48 hours. Continue broad-spectrum antibiotics for sepsis secondary to cholecystitis and pancreatic cyst. MMODL / IJN: [id number] /
[2017-07-23] MEDS: PANTOPRAZOLE 40 MG TABLET PO SCH (07:30)
[2017-07-23] MEDS: ACETAMINOPHEN TAB 325 MG TAB PO PRN (07:30)
[2017-07-23] MEDS: lamoTRIgine 100 MG TAB PO SCH ×2 (07:31→20:56)
[2017-07-23 07:35] LABS: Glucose,Whole Blood 145 mg/dL (75-99)
--- NOTE | 2017-07-23 08:28 | CONS ---
CONSULTATION DATE OF SERVICE: 07/22/2017 REASON FOR FOLLOWUP: Cholecystitis and postop fever. HISTORY OF PRESENT ILLNESS: The patient is a 42-year-old male with a past medical history significant for pancreatitis with a pancreatic pseudocyst the patient was seen back in April 2017 presenting to the ER at [facility] on 07/18/2017 with chief complaints of abdominal pain. Apparently the patient did have abdominal pain for about 2 to 3 days prior to presentation to hospital. The pain has been mostly in the epigastric area with some radiation to the left side with associated nausea, vomiting and the pain intensity was almost 10 out of 10 by the time he presented to the hospital. No high-grade fever. Patient subsequently evaluated by the ER physician including an abdominal ultrasound that was suspicious for a pancreatic pseudocyst with some gallbladder hydrops and minimal pericholecystic fluid. A CT abdominal pelvis was done which confirmed the pancreatic pseudocyst, but reported gallbladder to be normal. The patient subsequently has been evaluated both by GI and Surgical Services. He was taken to the OR yesterday and is status post laparoscopic cholecystectomy with evidence of possible cholecystitis. The patient has been afebrile since his admission. However, did spike a fever of 101.1 degrees Fahrenheit last night at 2345 hours. The patient said he was having some sweating and some chills. No fever since then. The patient also had a white count elevated at 16.7 on admission, but it came down to 8.3 as of yesterday, however, it did jump 14.6 today. The patient has been on Zosyn that has been started early this morning. However, no culture was done and subsequent resolution of his fever. REVIEW OF SYSTEMS: CONSTITUTIONAL: Positive for weakness and a fever postop. EYES: No complaint. ENT: No complaint. RESPIRATORY: No complaint. CARDIOVASCULAR: No complaint. GENITOURINARY: No complaint. GASTROINTESTINAL: As per HPI. MUSCULOSKELETAL: No complaint. INTEGUMENTARY: No complaint. PSYCHOLOGICAL: No complaint. ENDOCRINE: No complaint. NEUROLOGICAL: No complaint. PAST MEDICAL HISTORY: His past medical history is significant for COPD, seizure disorder, pancreatitis , chronic hepatitis C, bipolar, depression. PAST SURGICAL HISTORY: Appendectomy, eye surgery, and drain for pancreatitis. SOCIAL HISTORY: Current every day smoker. No drinking. Did admit to opiates and methamphetamine use. FAMILY HISTORY: Strongly positive for alcoholism. ALLERGIES: Allergies to CODEINE, LASIX, HALOPERIDOL, PROCHLORPERAZINE, MEDICATIONS: Medication include the patient is currently on Zosyn 3.375 grams q.8. He on Protonix, Zofran, Zyprexa, Narcan, Remeron, Lamictal, Toradol, Motrin, heparin, Tylenol. PHYSICAL EXAMINATION: On examination, blood pressure 126/63 with a pulse of 99, temperature of 98.3. He is 93% on room air. General description is a middle-aged male lying in bed in no distress. HEENT examination showed no pallor or scleral icterus. Oral mucous membrane is moist. No pharyngeal erythema or thrush. NECK: Trachea is central. No thyromegaly. LUNGS: Unlabored breathing, but decreased breath sounds at the bases, no wheeze. HEART: S1, S2. Regular rate and rhythm. ABDOMEN: Soft, mildly distended and tender in the right upper quadrant area. No organomegaly. EXTREMITIES: No edema of the feet. SKIN EXAMINATION: No rashes or masses palpable. NEUROLOGICAL: The patient is awake, alert, oriented x3. Mood and affect normal. LABS: Hemoglobin is 12.4, white count 14.6. BUN is 4, creatinine 0.70. Liver enzymes are normal. Lactic acid elevated at 3.5. Lipase is 372. Urine has been negative. Unfortunately no blood culture. DIAGNOSTIC IMPRESSION AND PLAN: Patient with postop fever in a patient who did have evidence of cholecystitis on the basis of operative finding, status post laparoscopic cholecystectomy with jump in white count. The likely organism need to cover will be enteric gram-negative more likely anaerobes and less likely anaerobes with overall fever responded to the Zosyn. Unfortunately no blood cultures were done. PLAN: 1. We will keep the patient on Zosyn 3.375 grams piggyback q.8 hours. 2. Repeat the CBC tomorrow. 3. If the patient spikes any fever, culture will be obtained before adjusting antibiotic further. 4. Depending upon the clinical response as well as cultures will adjust antibiotic further if needed. Thank you for this consultation. Will follow this patient along with you. MMODL / IJN: [id number] / PINA
[2017-07-23 09:26] LABS: Basophils % (A) 0 %; Eosinophils # (A) 0.2 k/uL (0-0.7); Eosinophils % (A) 2 %; HCT 37.2 % (39.0-53.0); Lymphocytes # (A) 1.2 k/uL (1.0-4.8); Lymphocytes % (A) 11 %; MCH 27.7 pg (25.0-35.0); MCHC 32.3 g/dL (31.0-37.0); Mean Platelet Volume 8.9; Monocytes # (A) 0.6 k/uL (0-1.0); Monocytes % (A) 6 %; Neutrophils # (A) 8.5 k/uL (1.3-7.7); Neutrophils % (A) 80 %; Platelet Count 156 k/uL (150-450); RBC 4.33 m/uL (4.30-5.90); RDW 13.9 % (11.5-15.5); WBC 10.7 k/uL (3.8-10.6)
[2017-07-23 09:35] LABS: ALT 49 U/L (21-72); AST 25 U/L (17-59); Albumin 3.1 g/dL (3.5-5.0); Alkaline Phosphatase 113 U/L (38-126); Anion Gap 12 mmol/L; Blood Urea Nitrogen 11 mg/dL (9-20); Calcium 8.5 mg/dL (8.4-10.2); Carbon Dioxide 23 mmol/L (22-30); Chloride 107 mmol/L (98-107); Glucose 145 mg/dL (74-99); Lipase 172 U/L (23-300); Potassium 3.6 mmol/L (3.5-5.1); Sodium 142 mmol/L (137-145); Total Bilirubin 0.8 mg/dL (0.2-1.3); Total Protein 5.8 g/dL (6.3-8.2)
--- NOTE | 2017-07-23 09:49 | P.PN ---
Subjective Progress Note Date: 07/23/17 42-year-old male seen at bedside patient reports having increased pain to the right abdominal wall spike a temp of 101.1 at midnight last night current temp 97.9 surgical incision site dry tenderness to the right lateral abdominal wall states passing gas has been up ambulating in the hallway is asking for morphine to be restarted for pain control white count this morning is 10.7 down from 14.6 Postop July 21 laparoscopic cholecystectomy for cholelithiasis cholecystitis Objective - Vital Signs Vital signs: Vital Signs Temp 97.9 F 07/23/17 07:00 Pulse 107 H 07/23/17 07:00 Resp 20 07/23/17 07:00 BP 129/77 07/23/17 07:00 Pulse Ox 97 07/23/17 07:00 Intake & Output 07/22/17 07/23/17 07/23/17 18:59 06:59 18:59 Intake Total 400 Balance 400 Intake: Oral 400 Other: # Voids 2 1 # Bowel Movements 0 - Exam physical exam 42-year-old male resting in bed reports having increase right lateral abdominal wall pain lungs adequate air movement bilaterally on room air no cough Heart S1-S2 audible regular Abdomen surgical incision sites dry no redness few hypoactive bowel tones states passing gas rectally no stool states urinating no difficulty reports tolerating a diet with no nausea vomiting continues to report having pain to the right lateral abdominal wall which patient states has increased from prior assessment Extremities no edema - Labs CBC & Chem 7: 07/23/17 09:08 07/22/17 04:21 Labs: Abnormal Lab Results - Last 24 Hours (Table) 07/22/17 07/22/17 07/22/17 Range/Units 09:21 12:16 16:42 WBC (3.8-10.6) k/uL Hgb (13.0-17.5) gm/dL Hct (39.0-53.0) % Neutrophils # (1.3-7.7) k/uL POC Glucose (mg/dL) 112 H 143 H (75-99) mg/dL Lipase 438 H (23-300) U/L 07/22/17 07/23/17 07/23/17 Range/Units 21:00 07:18 09:08 WBC 10.7 H (3.8-10.6) k/uL Hgb 12.0 L (13.0-17.5) gm/dL Hct 37.2 L (39.0-53.0) % Neutrophils # 8.5 H (1.3-7.7) k/uL POC Glucose (mg/dL) 143 H 145 H (75-99) mg/dL Lipase (23-300) U/L Assessment and Plan Assessment: Impression history of pancreatitis pseudocyst with a CAT scan of the abdomen reporting a large cystic mass consistent with a pseudocyst of the pancreas about 7.5 Present on admission abdominal pain suspect due to acute pancreatitis Acute on chronic pancreatitis with a history of necrotizing hepatitis treated as [facility] History of necrotizing pancreatitis History of hepatitis C Obesity BMI 34 Episodic opiate abuse A major depressive disorder mood disorder bipolar History of a pancreatic stent placed which patient states has been removed History of a seizure disorder IV drug abuse in remission CAT scan abdomen pelvis done on July 19 show large cystic mass increased from 5 cm to 7.5 compared to study done in April 2017 Postop July 21 laparoscopic cholecystectomy for cholecystitis cholelithiasis postop febrile unclear etiology Plan updated Dr. frazier regarding elevated temp and increased pain to the right abdominal wall Continue postop surgical care Encourage ambulation Consult Dr. Escamilla restart morphine IV for pain monitor the response Continue IV hydration as ordered Pain control Monitor labs Further surgical recommendations pending will follow with you DVT and GI prophylaxis note dictated for Dr. frazier The above impression and plan of care have been discussed and directed by signing physician. Ana Meredith nurse practitioner acting as scribe for signing physician.
[2017-07-23] MEDS: MORPHINE SULFATE/PF 10MG/10ML VL IVP PRN ×5 (11:46→23:37)
--- NOTE | 2017-07-23 13:29 | NM ---
EXAMINATION TYPE: NM hepatobiliary wo EF DATE OF EXAM: 07/23/2017 COMPARISON: CT abdomen pelvis from 4 days ago. HISTORY: Abdominal pain rule out bile leak or biloma. Cholecystectomy was performed 2 days ago. TECHNIQUE: After the intravenous administration of 5.32 mCi Tc 99m Mebrofenin hepatobiliary scintigra phy is performed. Immediate images post injection. FINDINGS: There is satisfactory initial accumulation of tracer by the liver on 2 minute images. The small bowel activity is noted within 20 minutes. After 60 minutes there is no suspicious accumulation of radiotracer in the right paracolic gutter to suggest biliary leak. IMPRESSION: No suspicious radiotracer accumulation to suggest intraperitoneal biliary leak.
[2017-07-23 17:38] LABS: Glucose,Whole Blood 101 mg/dL (75-99)
[2017-07-23 20:36] LABS: Glucose,Whole Blood 197 mg/dL (75-99)
[2017-07-23] MEDS: OLANZapine ODT 10 MG TAB PO SCH (20:56)
[2017-07-23] MEDS: MIRTAZAPINE 15 MG TAB PO SCH (20:56)
--- NOTE | 2017-07-23 21:16 | PN ---
PROGRESS NOTE DATE OF SERVICE: 07/23/2017. REASON FOR FOLLOWUP VISIT: Postop fever. INTERVAL HISTORY: The patient did have another fever last night of 101.9 close to midnight. Unfortunately, I was not notified. This morning, the patient has been afebrile. The patient continues to complain of pain mostly in the right upper quadrant area. The patient epigastric pain has currently resolved. No nausea, no vomiting and no diarrhea. EXAMINATION: Blood pressure 124/59 with a pulse of 77, temperature 97.4. He is 96% on room air. General description is a middle-aged female lying in bed in no distress. Respiratory system: Unlabored breathing. Clear to auscultation anteriorly. Heart S1, S2. Regular rate and rhythm. ABDOMEN: Soft. Slight distention. No guarding or rigidity. Extremities: No edema of the feet. LABS: Hemoglobin is 10.7, BUN of 11, creatinine 0.70. Electrolytes has been normal. Liver enzymes are normal. No cultures. DIAGNOSTIC IMPRESSION AND PLAN: Patient with a fever postop and did have elevated white count. White count has come down with Zosyn therapy. Likely intraabdominal source in a patient who did have a cholecystitis status post cholecystectomy, also with pancreatic pseudocyst from his drinking. The patient will be kept on Zosyn. Culture will be ordered. Those will be followed. He did have a HIDA scan that was negative for any leak adjust antibiotic further depending on the clinical response as well as cultures. Continue supportive care. MMODL / IJN: [id number] / PINA
--- NOTE | 2017-07-23 22:42 | PN ---
PROGRESS NOTE SUBJECTIVE: This is a 42-year-old white male with pancreatic pseudocyst, status post cholecystectomy. He had a fever of 101 last night. Remains on IV Zosyn. Cultures are pending. Dr. Escamilla's recommendations are pending. CARDIOVASCULAR: S1, S2. Lungs are clear. GI: There is tenderness to palpation, epigastric. HEMATOLOGY: Negative Homans. VASCULAR: Normal dorsalis pedis. Plus 2 radial pulse. ASSESSMENT: Pseudocyst, status post cholecystectomy negative for bile duct leak on the HIDA scan. Maintain for cultures. Continue with IV antibiotics for now. MMODL / IJN: [id number] /
[2017-07-24] MEDS: HEPARIN SODIUM,PORCINE 5,000 UNIT/ML 1 ML VIAL SQ SCH ×4 (00:58→23:26)
[2017-07-24] MEDS: MORPHINE SULFATE/PF 10MG/10ML VL IVP PRN ×8 (02:35→23:29)
[2017-07-24] MEDS: LACTATED RINGERS 1,000 ML IV SCH (05:29)
[2017-07-24] MEDS: KETOROLAC 30 MG/ML 1 ML VIAL IVP SCH ×4 (05:34→23:31)
[2017-07-24] MEDS: SODIUM CHLORIDE 0.9% 1,000 ML IV SCH ×3 (05:34→21:38)
[2017-07-24] MEDS: ACETAMINOPHEN TAB 325 MG TAB PO PRN ×2 (05:45→23:41)
[2017-07-24 07:39] LABS: Glucose,Whole Blood 116 mg/dL (75-99)
[2017-07-24] MEDS: PIPERACILLIN-TAZOBACTAM 3.375 GM in DEXTROSE/WATER 1 50ML.BAG IVPB SCH ×3 (08:33→23:31)
[2017-07-24] MEDS: PANTOPRAZOLE 40 MG TABLET PO SCH (08:34)
[2017-07-24] MEDS: lamoTRIgine 100 MG TAB PO SCH ×2 (08:34→20:33)
[2017-07-24 08:52] LABS: Basophils % (A) 0 %; Eosinophils # (A) 0.4 k/uL (0-0.7); Eosinophils % (A) 4 %; HCT 34.4 % (39.0-53.0); HGB 11.4 gm/dL (13.0-17.5); Lymphocytes # (A) 1.6 k/uL (1.0-4.8); Lymphocytes % (A) 16 %; MCH 28.3 pg (25.0-35.0); MCV 85.8 fL (80.0-100.0); Monocytes # (A) 0.7 k/uL (0-1.0); Monocytes % (A) 7 %; Neutrophils # (A) 7.2 k/uL (1.3-7.7); Neutrophils % (A) 71 %; Platelet Count 173 k/uL (150-450); RBC 4.01 m/uL (4.30-5.90); RDW 13.7 % (11.5-15.5); WBC 10.2 k/uL (3.8-10.6)
[2017-07-24 12:48] LABS: Glucose,Whole Blood 104 mg/dL (75-99)
--- NOTE | 2017-07-24 14:37 | PN ---
PROGRESS NOTE SUBJECTIVE: This is a white male, who is spiking fever of 101 degrees Fahrenheit at night. He has been diagnosis acute pancreatitis, abdominal sepsis, pancreatic pseudocyst, bipolar. He is on broad-spectrum antibiotics with IV. HIDA scan is negative for any bile duct leak. He is having right upper quadrant pain. Pain medicines insufficient, 8/10 pain levels. CARDIOVASCULAR: S1, S2. LUNGS: Clear. GI: Tenderness to palpation right upper quadrant. Mild guarding. HEMATOLOGY: Negative Homans. VASCULAR: Normal dorsalis pedis, posterior radial pulse. ASSESSMENT: Acute pancreatitis, sepsis, abdominal pancreatic pseudocyst, bipolar. Continue with IV antibiotics, broad spectrum, advance diet. Continue current treatment next 24-48 hours. MMODL / IJN: [id number] /
--- NOTE | 2017-07-24 15:09 | P.PN ---
Progress Note - Text Progress Note Date: 07/24/17 Patient seen and evaluated. He is having fevers and reports right upper quadrant pain; however, globally comfortable. He is being followed by ID. Continue hospitalization.
--- NOTE | 2017-07-24 18:01 | P.PN ---
Subjective Progress Note Date: 07/24/17 The patient is a 42-year-old gentleman status post cholecystectomy by Dr. Hicks. He is having fevers and reports right upper quadrant pain; however, globally comfortable. No acute nausea or vomiting. Objective - Vital Signs Vital signs: Vital Signs Temp 97.5 F L 07/24/17 15:00 Pulse 90 07/24/17 15:00 Resp 16 07/24/17 15:00 BP 128/77 07/24/17 15:00 Pulse Ox 95 07/24/17 15:00 Intake & Output 07/23/17 07/24/17 07/24/17 18:59 06:59 18:59 Intake Total 320 Balance 320 Weight 108.862 kg Intake: Oral 320 Other: Voiding Method Toilet # Voids 3 1 3 - Exam GENERAL: Well developed and in no acute distress. Pleasant. HEENT: No sclera icterus. Extraocular movements grossly intact. NECK: Supple without lymphadenopathy. CHEST: Non-labored respirations and equal bilateral excursions. CARDIOVASCULAR: Regular rate and rhythm. Palpable 2+ radial pulses. ABDOMEN: Soft. Nondistended. No peritonitis. Tenderness along the right upper quadrant. MUSCULOSKELETAL: No clubbing, cyanosis or edema. NEUROLOGIC: No focal or lateralizing signs. PSYCH: Appropriate affect. Alert and oriented to person, place and time. SKIN: Good skin turgor. Well perfused. - Labs CBC & Chem 7: 07/24/17 07:47 07/23/17 09:08 Labs: Abnormal Lab Results - Last 24 Hours (Table) 07/23/17 07/24/17 07/24/17 Range/Units 20:35 07:26 07:47 RBC 4.01 L (4.30-5.90) m/uL Hgb 11.4 L (13.0-17.5) gm/dL Hct 34.4 L (39.0-53.0) % POC Glucose (mg/dL) 197 H 116 H (75-99) mg/dL 07/24/17 Range/Units 12:20 RBC (4.30-5.90) m/uL Hgb (13.0-17.5) gm/dL Hct (39.0-53.0) % POC Glucose (mg/dL) 104 H (75-99) mg/dL Microbiology - Last 24 Hours (Table) 07/23/17 13:35 Blood Culture - Preliminary Blood No Growth after 24 hours 07/23/17 13:24 Blood Culture - Preliminary Blood No Growth after 24 hours Assessment and Plan (1) Pancreatic pseudocyst Current Visit: Yes Status: Acute Code(s): K86.3 - PSEUDOCYST OF PANCREAS SNOMED Code(s): 465813530 (2) Fever Current Visit: No Status: Acute Code(s): R50.9 - FEVER, UNSPECIFIED SNOMED Code(s): 321557907 (3) Leukocytosis Current Visit: No Status: Acute Code(s): D72.829 - ELEVATED WHITE BLOOD CELL COUNT, UNSPECIFIED SNOMED Code(s): 773415988 (4) Pancreatitis Current Visit: No Status: Acute Code(s): K85.90 - ACUTE PANCREATITIS WITHOUT NECROSIS OR INFECTION, UNSP SNOMED Code(s): 80517169 (5) Obesity (BMI 30-39.9) Current Visit: No Status: Chronic Code(s): E66.9 - OBESITY, UNSPECIFIED SNOMED Code(s): 707037428 Plan: 1. HIDA scan reviewed and negative for leaks. 2. Continue IV antibiotics 3. He is being followed by ID. 4. Continue hospitalization.
[2017-07-24] MEDS: OLANZapine ODT 10 MG TAB PO SCH (20:33)
[2017-07-24] MEDS: MIRTAZAPINE 15 MG TAB PO SCH (20:33)
--- NOTE | 2017-07-24 23:05 | PN ---
PROGRESS NOTE DATE OF SERVICE: 07/24/2017 REASON FOR FOLLOWUP: Fever, abdominal source. INTERVAL HISTORY: The patient did have did a little spike a fever of 101.8 this morning, afebrile afterward. He has been breathing comfortably. Denies having any chest pain, shortness of breath or cough. Pain in the right upper quadrant has improved. No nausea, vomiting or any diarrhea. EXAMINATION: Blood pressure 128/77 with a pulse of 90, temperature 97.5. He is 95% on room air. General description is a middle-aged male lying in bed in no distress. RESPIRATORY SYSTEM: Unlabored breathing. Clear to auscultation anteriorly. HEART: S1, S2. Regular rate and rhythm. ABDOMEN: Soft, mildly distended. No guarding or rigidity. LABS: Hemoglobin 11.4, white count 10.2. Blood cultures have been negative so far. DIAGNOSTIC IMPRESSION AND PLAN: Patient with fever. The patient admitted to hospital with abdominal pain, diagnosed with cholecystitis, status post cholecystectomy. HIDA scan was negative for any leak. The patient will be continued on Zosyn at this point, waiting for the culture to finalize. Continue supportive care condition. MMODL / IJN: [id number] /
[2017-07-25] MEDS: MORPHINE SULFATE/PF 10MG/10ML VL IVP PRN ×2 (02:34→05:28)
[2017-07-25] MEDS: LACTATED RINGERS 1,000 ML IV SCH (03:30)
[2017-07-25] MEDS: KETOROLAC 30 MG/ML 1 ML VIAL IVP SCH ×4 (05:29→23:41)
[2017-07-25] MEDS: SODIUM CHLORIDE 0.9% 1,000 ML IV SCH ×3 (05:31→23:42)
[2017-07-25] MEDS ORDERED: MORPHINE SULF 5MG/10ML VL IVP PRN (07:45)
[2017-07-25 08:14] LABS: Basophils % (A) 0 %; Eosinophils # (A) 0.6 k/uL (0-0.7); Eosinophils % (A) 6 %; HCT 33.6 % (39.0-53.0); HGB 10.8 gm/dL (13.0-17.5); Lymphocytes # (A) 1.2 k/uL (1.0-4.8); Lymphocytes % (A) 13 %; MCH 27.9 pg (25.0-35.0); MCHC 32.2 g/dL (31.0-37.0); MCV 86.9 fL (80.0-100.0); Mean Platelet Volume 9.5; Monocytes # (A) 0.6 k/uL (0-1.0); Monocytes % (A) 7 %; Neutrophils # (A) 6.7 k/uL (1.3-7.7); Neutrophils % (A) 73 %; Platelet Count 164 k/uL (150-450); RBC 3.86 m/uL (4.30-5.90); RDW 13.9 % (11.5-15.5); WBC 9.2 k/uL (3.8-10.6)
[2017-07-25] MEDS: MORPHINE SULF 5MG/10ML VL IVP PRN ×5 (08:51→21:32)
[2017-07-25] MEDS: PANTOPRAZOLE 40 MG TABLET PO SCH (10:06)
[2017-07-25] MEDS: lamoTRIgine 100 MG TAB PO SCH ×2 (10:06→20:27)
[2017-07-25] MEDS: PIPERACILLIN-TAZOBACTAM 3.375 GM in DEXTROSE/WATER 1 50ML.BAG IVPB SCH ×3 (10:07→23:41)
[2017-07-25] MEDS: HEPARIN SODIUM,PORCINE 5,000 UNIT/ML 1 ML VIAL SQ SCH ×3 (10:07→23:43)
--- NOTE | 2017-07-25 12:42 | PN ---
PROGRESS NOTE SUBJECTIVE: This is a 42-year-old white male with acute pancreatitis, sepsis, abdominal pain, pancreatic pseudocyst, bipolar. Continues to have right upper quadrant pain. Spiking fevers at night. He is on empiric antibiotics for abdominal sepsis. HIDA scan was negative for a bile duct leak. Pain control is being given. Continue on empiric antibiotics. Possible transfer down to [facility] if he does not improve. Depending on the culture reports, Dr. Escamilla's recommendation may have an infected pancreatic cyst that needs treatment. Vital signs stable, afebrile. PSYCH: Fair mood and affect. NEUROLOGIC: Alert and orient x3. CARDIOVASCULAR: S1, S2. LUNGS: Clear. GI: Tenderness to palpation right upper quadrant. Mild guarding. No rebound. PLAN: Continue with empiric antibiotics, follow up in the next 24-48 hours. Current treatment. MMODL / IJN: [id number] /
--- NOTE | 2017-07-25 14:57 | P.PN ---
Subjective Progress Note Date: 07/25/17 The patient is a 42-year-old gentleman status post cholecystectomy by Dr. Hicks. He is resting comfortably. Right upper quadrant abdominal pain improving. Fever curve improving. Objective - Vital Signs Vital signs: Vital Signs Temp 99.1 F 07/25/17 14:30 Pulse 111 H 07/25/17 14:30 Resp 18 07/25/17 14:30 BP 118/64 07/25/17 14:30 Pulse Ox 95 07/25/17 14:30 Intake & Output 07/24/17 07/25/17 07/25/17 18:59 06:59 18:59 Intake Total 320 711 Balance 320 711 Intake: Oral 320 711 Other: Voiding Method Toilet # Voids 3 2 2 - Exam GENERAL: Well developed and in no acute distress. Pleasant. HEENT: No sclera icterus. Extraocular movements grossly intact. NECK: Supple without lymphadenopathy. CHEST: Non-labored respirations and equal bilateral excursions. CARDIOVASCULAR: Tachycardic. Palpable 2+ radial pulses. ABDOMEN: Soft. Nondistended. No peritonitis. MUSCULOSKELETAL: No clubbing, cyanosis or edema. NEUROLOGIC: No focal or lateralizing signs. PSYCH: Appropriate affect. Alert and oriented to person, place and time. SKIN: Good skin turgor. Well perfused. - Labs CBC & Chem 7: 07/25/17 07:29 07/23/17 09:08 Labs: Abnormal Lab Results - Last 24 Hours (Table) 07/25/17 Range/Units 07:29 RBC 3.86 L (4.30-5.90) m/uL Hgb 10.8 L (13.0-17.5) gm/dL Hct 33.6 L (39.0-53.0) % Microbiology - Last 24 Hours (Table) 07/23/17 13:35 Blood Culture - Preliminary Blood No Growth after 24 hours 07/23/17 13:24 Blood Culture - Preliminary Blood No Growth after 24 hours Assessment and Plan (1) Pancreatic pseudocyst Current Visit: Yes Status: Acute Code(s): K86.3 - PSEUDOCYST OF PANCREAS SNOMED Code(s): 799652131 (2) Fever Current Visit: No Status: Acute Code(s): R50.9 - FEVER, UNSPECIFIED SNOMED Code(s): 639273057 (3) Leukocytosis Current Visit: No Status: Acute Code(s): D72.829 - ELEVATED WHITE BLOOD CELL COUNT, UNSPECIFIED SNOMED Code(s): 168361841 (4) Pancreatitis Current Visit: No Status: Acute Code(s): K85.90 - ACUTE PANCREATITIS WITHOUT NECROSIS OR INFECTION, UNSP SNOMED Code(s): 28710830 (5) Obesity (BMI 30-39.9) Current Visit: No Status: Chronic Code(s): E66.9 - OBESITY, UNSPECIFIED SNOMED Code(s): 572058093 Plan: 1. Continue IV antibiotics. 2. No additional surgical intervention at this time. 3. Continue with hospitalization.
[2017-07-25] MEDS: OLANZapine ODT 10 MG TAB PO SCH (20:27)
[2017-07-25] MEDS: MIRTAZAPINE 15 MG TAB PO SCH (20:27)
[2017-07-25 22:48] VITALS: RESP 20; TEMP 99.4
--- NOTE | 2017-07-25 23:15 | PN ---
PROGRESS NOTE DATE OF SERVICE: 07/25/2017. REASON FOR FOLLOW UP: 1. Cholecystitis. 2. Postop fever. INTERVAL HISTORY: The patient overall fever pattern has improved, last temperature she had last night was 100.8, afebrile since then. Overall, the patient is feeling better. The pain in the right upper quadrant area has improved denies having nausea or vomiting. No diarrhea. EXAMINATION: Blood pressure 118/64 with a pulse of 80, temperature of 99.1, he is 95% on room air. General description is a middle-aged male lying in bed in no distress. Respiratory system unlabored breathing. Lungs clear to auscultation anteriorly. Heart S1, S2 regular. Abdomen soft. No guarding or rigidity. Extremities, no edema of the feet. LABS: Hemoglobin 10.8, white count 9.2. Blood cultures have been negative. DIAGNOSTIC IMPRESSION AND PLAN: Patient with postop fever in a patient who is status post laparoscopic cholecystectomy for chronic cholecystitis. The patient also have underlying pancreatic pseudocyst. No evidence of pancreatitis. The patient's abdominal pain has improved and his HIDA scan was negative for any leak. Currently on Zosyn. As culture has been negative, he will be transitioned to oral Augmentin for short course tomorrow. Continue supportive care. MMODL / IJN: [id number] /
[2017-07-26] MEDS: MORPHINE SULF 5MG/10ML VL IVP PRN ×2 (03:37→08:18)
[2017-07-26] MEDS: LACTATED RINGERS 1,000 ML IV SCH (06:37)
[2017-07-26] MEDS: SODIUM CHLORIDE 0.9% 1,000 ML IV SCH (06:37)
[2017-07-26] MEDS: KETOROLAC 30 MG/ML 1 ML VIAL IVP SCH (06:37)
[2017-07-26 07:17] VITALS: BP 129/73; PULSE 105
[2017-07-26] MEDS: HEPARIN SODIUM,PORCINE 5,000 UNIT/ML 1 ML VIAL SQ SCH (08:14)
[2017-07-26] MEDS: PIPERACILLIN-TAZOBACTAM 3.375 GM in DEXTROSE/WATER 1 50ML.BAG IVPB SCH (08:14)
[2017-07-26] MEDS: lamoTRIgine 100 MG TAB PO SCH (08:15)
[2017-07-26] MEDS: PANTOPRAZOLE 40 MG TABLET PO SCH (08:15)
[2017-07-26 09:17] LABS: Basophils % (A) 0 %; Eosinophils # (A) 0.4 k/uL (0-0.7); Eosinophils % (A) 6 %; HCT 32.1 % (39.0-53.0); HGB 10.5 gm/dL (13.0-17.5); Lymphocytes # (A) 1.4 k/uL (1.0-4.8); Lymphocytes % (A) 17 %; MCH 28.5 pg (25.0-35.0); MCHC 32.8 g/dL (31.0-37.0); MCV 86.9 fL (80.0-100.0); Mean Platelet Volume 8.4; Monocytes # (A) 0.6 k/uL (0-1.0); Monocytes % (A) 7 %; Neutrophils # (A) 5.5 k/uL (1.3-7.7); Neutrophils % (A) 68 %; Platelet Count 222 k/uL (150-450); RDW 13.6 % (11.5-15.5); WBC 8.1 k/uL (3.8-10.6)
--- NOTE | 2017-07-26 10:34 | P.PN ---
Subjective Progress Note Date: 07/26/17 42-year-old male seen Examined at bedside patient states he has been up ambulating in the avila. Passing gas. No nausea no vomiting. Patient states anxious to be discharged home. Tolerating diet Postop July 21 laparoscopic cholecystectomy for cholelithiasis cholecystitis Objective - Vital Signs Vital signs: Vital Signs Temp 99.4 F 07/26/17 07:00 Pulse 105 H 07/26/17 07:00 Resp 20 07/26/17 07:00 BP 129/73 07/26/17 07:00 Pulse Ox 94 L 07/26/17 07:00 Intake & Output 07/25/17 07/26/17 07/26/17 18:59 06:59 18:59 Intake Total 675 480 Output Total 550 Balance 125 480 Intake: Oral 675 480 Output: Urine 550 Other: Voiding Method Toilet # Voids 2 1 - Exam physical exam 42-year-old male resting in bed reports an improvement in the abdominal pain has been up ambulating in the avila lungs adequate air movement bilaterally on room air no cough Heart S1-S2 audible regular Abdomen surgical incision sites dry no redness few hypoactive bowel tones states passing gas rectally no stool states urinating no difficulty reports tolerating a diet with no nausea vomiting passing gas had a bowel movement yesterday Extremities no edema - Labs CBC & Chem 7: 07/26/17 08:45 07/23/17 09:08 Labs: Abnormal Lab Results - Last 24 Hours (Table) 07/26/17 Range/Units 08:45 RBC 3.70 L (4.30-5.90) m/uL Hgb 10.5 L (13.0-17.5) gm/dL Hct 32.1 L (39.0-53.0) % Microbiology - Last 24 Hours (Table) 07/23/17 13:35 Blood Culture - Preliminary Blood No Growth after 48 hours 07/23/17 13:24 Blood Culture - Preliminary Blood No Growth after 48 hours Assessment and Plan Assessment: Impression history of pancreatitis pseudocyst with a CAT scan of the abdomen reporting a large cystic mass consistent with a pseudocyst of the pancreas about 7.5 Present on admission abdominal pain suspect due to acute pancreatitis Acute on chronic pancreatitis with a history of necrotizing hepatitis treated as [facility] History of necrotizing pancreatitis History of hepatitis C Obesity BMI 34 Episodic opiate abuse A major depressive disorder mood disorder bipolar History of a pancreatic stent placed which patient states has been removed History of a seizure disorder IV drug abuse in remission CAT scan abdomen pelvis done on July 19 show large cystic mass increased from 5 cm to 7.5 compared to study done in April 2017 Postop July 21 laparoscopic cholecystectomy for cholecystitis cholelithiasis postop febrile unclear etiology Plan From a surgical perspective is felt to be appropriate to be discharged home defer to the timing to the attending Continue postop surgical care Encourage ambulation DVT and GI prophylaxis note dictated for Dr. frazier The above impression and plan of care have been discussed and directed by signing physician. nAa Meredith nurse practitioner acting as scribe for signing physician.
[2017-07-26] MEDS: IBUPROFEN 600 MG TAB PO PRN (11:20)
--- NOTE | 2017-07-26 15:19 | PN ---
PROGRESS NOTE DATE OF SERVICE: 07/26/2017 REASON FOR FOLLOWUP: 1. Postop fever, cholecystitis. 2. Pancreatic pseudocyst. INTERVAL HISTORY: The patient overall feels better and has improved. The patient's pain in the right abdomen has improved as well. Patient tolerating his diet. Denies having any chest pain, shortness of breath or cough. No diarrhea. PHYSICAL EXAMINATION: Blood pressure 129/73 with a pulse of 105, temperature 98.4. He is 94% on room air. General description is a middle-aged male, lying in bed in no distress. RESPIRATORY SYSTEM: Unlabored breathing, clear to auscultation anteriorly. HEART: S1, S2. Regular rate and rhythm. ABDOMEN: Soft, no tenderness. EXTREMITIES: No edema of the feet. LABS: Hemoglobin 10.5, white count 8.1. Blood culture has been negative. DIAGNOSTIC IMPRESSION AND PLAN: Patient with post fever in a patient who did have cholecystitis, status post laparoscopic cholecystectomy with right upper quadrant pain. HIDA scan was negative for any leakage. Blood culture negative. Fever resolved. Plan to finish therapy with oral Augmentin for about a week. Plan of care discussed with the physician for the admitting team. MMODL / IJN: [id number] / [email or web address]
--- NOTE | 2017-07-27 10:15 | CDI ---
Documentation Clarification Form Date: 07/27/2017 12:00:00 AM From: PAWEL Roberts Deborah Biskner, [facility] Phone: If you have a question about this query, please contact Sulma Laws [facility] at [phone] between 8am and 5pm. Admit Date: 07/18/2017 9:27:00 PM Patient Name: Juan Ralph Visit Number: [id number] Discharge Date: 07/18/2017 ATTENTION: The Clinical Documentation Specialists (CDI) and [facility] Coding Staff appreciate your assistance in clarifying documentation. Please respond to the clarification below the line at the bottom and electronically sign. The CDI & [facility] Coding staff will review the response and follow-up if needed. Please note: Queries are made part of the Legal Health Record. If you have any questions, please contact the author of this message via ITS. Dr. Bandar Camacho The following has been documented in your progress notes; Sepsis starting 07/22. History/Risk Factors: Admitted with acute pancreatitis and acute cholecystitis. Clinical Indicators: ED: WBC 16.7, temp 99.1, pulse 126, resp 20, BP 136/87. Treatment: Zosyn Definition of Present on Admission (POA): A diagnosis present at the time the order for admission to inpatient status was written. For each diagnosis, documentation must be clear to determine if the condition was present at the time of the patients inpatient admission or developed during the hospital stay. Please clarify in progress notes and discharge summary as to whether SEPSIS was: Y = Yes, the condition was present at the time of the order for inpatient admission. N = No, the condition was not present at the time of the order for inpatient admission. W = Clinically undetermined if the condition was present at the time of the order for inpatient admission. MTDD
--- NOTE | 2017-08-05 16:26 | CDI ---
Documentation Clarification Form Date: 08/05/2017 12:00:00 AM From: PAWEL Roberts Deborah Biskner, [employer] Phone: If you have a question about this query, please contact Sulma Laws [employer] at [phone] between 8am and 5pm. Admit Date: 07/18/2017 9:27:00 PM Patient Name: Juan Ralph Visit Number: [id number] Discharge Date: 07/18/2017 ATTENTION: The Clinical Documentation Specialists (CDI) and [facility] Coding Staff appreciate your assistance in clarifying documentation. Please respond to the clarification below the line at the bottom and electronically sign. The CDI & [facility] Coding staff will review the response and follow-up if needed. Please note: Queries are made part of the Legal Health Record. If you have any questions, please contact the author of this message via ITS. Dr. Bandar Camacho The following has been documented in your progress notes; Sepsis starting 07/22. History/Risk Factors: Admitted with acute pancreatitis and acute cholecystitis. Clinical Indicators: ED: WBC 16.7, temp 99.1, pulse 126, resp 20, BP 136/87. Treatment: Zosyn Definition of Present on Admission (POA): A diagnosis present at the time the order for admission to inpatient status was written. For each diagnosis, documentation must be clear to determine if the condition was present at the time of the patients inpatient admission or developed during the hospital stay. Please clarify in progress notes and discharge summary as to whether SEPSIS was: Y = Yes, the condition was present at the time of the order for inpatient admission. N = No, the condition was not present at the time of the order for inpatient admission. W = Clinically undetermined if the condition was present at the time of the order for inpatient admission. MTDD
--- NOTE | 2017-08-10 16:33 | CDI ---
Documentation Clarification Form Date: 08/10/2017 12:00:00 AM From: PAWEL Roberts Deborah Biskner, Battery Installer Phone: If you have a question about this query, please contact Sulma Laws Battery Installer at [phone] between 8am and 5pm. Admit Date: 07/18/2017 9:27:00 PM Patient Name: Juan Ralph Visit Number: [id number] Discharge Date: 07/18/2017 ATTENTION: The Clinical Documentation Specialists (CDI) and [facility] Coding Staff appreciate your assistance in clarifying documentation. Please respond to the clarification below the line at the bottom and electronically sign. The CDI & [facility] Coding staff will review the response and follow-up if needed. Please note: Queries are made part of the Legal Health Record. If you have any questions, please contact the author of this message via ITS. Dr. Bandar Camacho The following has been documented in your progress notes; Sepsis starting 07/22. History/Risk Factors: Admitted with acute pancreatitis and acute cholecystitis. Clinical Indicators: ED: WBC 16.7, temp 99.1, pulse 126, resp 20, BP 136/87. Treatment: Zosyn Definition of Present on Admission (POA): A diagnosis present at the time the order for admission to inpatient status was written. For each diagnosis, documentation must be clear to determine if the condition was present at the time of the patients inpatient admission or developed during the hospital stay. Please clarify in progress notes and discharge summary as to whether SEPSIS was: Y = Yes, the condition was present at the time of the order for inpatient admission. N = No, the condition was not present at the time of the order for inpatient admission. W = Clinically undetermined if the condition was present at the time of the order for inpatient admission. MTDD
--- NOTE | 2017-08-18 09:55 | CDI ---
Last Revision, March 2017 Documentation Clarification Form Date: 08/18/2017 12:00:00 AM From: PAWEL Roberts Deborah Biskner, [employer] D[employer] Phone: If you have a question about this query, please contact Sulma Laws [employer]er at [phone] between 8am and 5pm. Admit Date: 07/18/2017 9:27:00 PM Patient Name: Juan Ralph Visit Number: [id number] Discharge Date: 07/18/2017 ATTENTION: The Clinical Documentation Specialists (CDI) and [facility] Coding Staff appreciate your assistance in clarifying documentation. Please respond to the clarification below the line at the bottom and electronically sign. The CDI & [facility] Coding staff will review the response and follow-up if needed. Please note: Queries are made part of the Legal Health Record. If you have any questions, please contact the author of this message via ITS. Dr. Bandar Camacho The following has been documented in your progress notes; Sepsis starting 07/22. History/Risk Factors: Admitted with acute pancreatitis and acute cholecystitis. Clinical Indicators: ED: WBC 16.7, temp 99.1, pulse 126, resp 20, BP 136/87. Treatment: Zosyn Definition of Present on Admission (POA): A diagnosis present at the time the order for admission to inpatient status was written. For each diagnosis, documentation must be clear to determine if the condition was present at the time of the patients inpatient admission or developed during the hospital stay. Please clarify in progress notes and discharge summary as to whether SEPSIS was: Y = Yes, the condition was present at the time of the order for inpatient admission. N = No, the condition was not present at the time of the order for inpatient admission. W = Clinically undetermined if the condition was present at the time of the order for inpatient admission. MTDD
--- NOTE | 2017-08-19 08:15 | CDI ---
Documentation Clarification Form Date: 08/19/2017 12:00:00 AM From: PAWEL Roberts Deborah Biskner, Satellite Installation Technician Phone: If you have a question about this query, please contact Sulma Laws Satellite Installation Technician at [phone] between 8am and 5pm. Admit Date: 07/18/2017 9:27:00 PM Patient Name: Juan Ralph Visit Number: [id number] Discharge Date: 07/18/2017 ATTENTION: The Clinical Documentation Specialists (CDI) and [facility] Coding Staff appreciate your assistance in clarifying documentation. Please respond to the clarification below the line at the bottom and electronically sign. The CDI & [facility] Coding staff will review the response and follow-up if needed. Please note: Queries are made part of the Legal Health Record. If you have any questions, please contact the author of this message via ITS. Dr. Bandar Camacho The following has been documented in your progress notes; Sepsis starting 07/22. History/Risk Factors: Admitted with acute pancreatitis and acute cholecystitis. Clinical Indicators: ED: WBC 16.7, temp 99.1, pulse 126, resp 20, BP 136/87. Treatment: Zosyn In your professional opinion, please clarify? Sepsis ruled in Sepsis ruled out If ruled in or suspected, was it POA? Unable to determine MTDD
--- NOTE | 2017-08-25 13:40 | CDI ---
Documentation Clarification Form Date:08/25/2017 12:00:00 AM From: PAWEL Roberts Deborah Biskner, Grease Maker Phone: If you have a question about this query, please contact Sulma Laws Grease Maker at [phone] between 8am and 5pm. Admit Date: 07/18/2017 9:27:00 PM Patient Name: Juan Ralph Visit Number: [id number] Discharge Date: 07/18/2017 ATTENTION: The Clinical Documentation Specialists (CDI) and [facility] Coding Staff appreciate your assistance in clarifying documentation. Please respond to the clarification below the line at the bottom and electronically sign. The CDI & [facility] Coding staff will review the response and follow-up if needed. Please note: Queries are made part of the Legal Health Record. If you have any questions, please contact the author of this message via ITS. Dr. Bandar Camacho The following has been documented in your progress notes; Sepsis starting 07/22. History/Risk Factors: Admitted with acute pancreatitis and acute cholecystitis. Clinical Indicators: ED: WBC 16.7, temp 99.1, pulse 126, resp 20, BP 136/87. Treatment: Zosyn In your professional opinion, please clarify? Sepsis ruled in Sepsis ruled out If ruled in or suspected, was it POA? Unable to determine MTDD
--- NOTE | 2017-08-25 20:03 | DS ---
DISCHARGE SUMMARY DISCHARGE DIAGNOSIS: Sepsis ruled in secondary to acute cholecystitis and acute pancreatitis and pancreatic pseudocyst. RANDY / WYATTN: [id number] /
== END 2017-07-26 15:21 | disposition home or self-care (01) | DRG 853 ==
LOC: EC 17:46 → 4MS4W 21:27
PROVIDERS: ADMIT Family Medicine; ATTEND Family Medicine
PROC: 0FT44ZZ Resection of Gallbladder, Percutaneous Endoscopic Approach (ICD-10-PCS; principal; 2017-07-18)
DX: A41.9 Sepsis, unspecified organism (principal); K85.91 Acute pancreatitis with uninfected necrosis, unspecified; K80.66 Calculus of gallbladder and bile duct with acute and chronic cholecystitis without obstruction; K82.1 Hydrops of gallbladder; K86.3 Pseudocyst of pancreas; K86.1 Other chronic pancreatitis; B18.2 Chronic viral hepatitis C; E66.9 Obesity, unspecified; F11.10 Opioid abuse, uncomplicated; F15.90 Other stimulant use, unspecified, uncomplicated; F17.200 Nicotine dependence, unspecified, uncomplicated; F19.11 Other psychoactive substance abuse, in remission; F31.9 Bipolar disorder, unspecified; G40.909 Epilepsy, unspecified, not intractable, without status epilepticus; J44.9 Chronic obstructive pulmonary disease, unspecified; Z68.34 Body mass index [BMI] 34.0-34.9, adult; Z79.899 Other long term (current) drug therapy; Z81.8 Family history of other mental and behavioral disorders; Z82.49 Family history of ischemic heart disease and other diseases of the circulatory system; Z79.1 Long term (current) use of non-steroidal anti-inflammatories (NSAID); Z88.5 Allergy status to narcotic agent; Z88.8 Allergy status to other drugs, medicaments and biological substances; Z91.011 Allergy to milk products
CPT/HCPCS: 36415; 74018; 74177; 76700; 78226; 80053; 81001; 82150; 82550; 82553; 83605; 83690; 84484; 85025; 87040; 88304; 96361; 96374; 96375; 99285

== ENCOUNTER 2017-08-09 14:38 | Inpatient (IN) | payer MEDICARE, OTHER ==
[2017-08-09] MEDS ORDERED: SODIUM CHLORIDE 0.9% 1,000 ML IV STA ×2 (16:31)
[2017-08-09] MEDS ORDERED: RX INFO: IV CONTRAST WAS GIVEN 1 EACH MISC MISCELLANE PRN (16:51)
[2017-08-09] MEDS ORDERED: ONDANSETRON 4 MG/2 ML VIAL IVP STA (16:52)
[2017-08-09 16:54] LABS: Appearance,Urine Cloudy (Clear); Bilirubin,Urine 1+ (Negative); Blood,Urine Negative (Negative); Color,Urine Orange; Glucose,Urine (UA) Negative (Negative); Ketones,Urine Negative (Negative); Leukocyte Esterase,Urine Negative (Negative); Mucus,Urine Many /hpf; Nitrite,Urine Negative (Negative); Protein,Urine 2+ (Negative); RBC,Urine 1 /hpf (0-5); Specific Gravity,Urine 1.025 (1.001-1.035); Squamous Epithelial Cell,Urine 1 /hpf (0-4); WBC,Urine 3 /hpf (0-5)
[2017-08-09] MEDS ORDERED: ACETAMINOPHEN TAB 500 MG TAB PO STA (17:19)
[2017-08-09] MEDS ORDERED: MORPHINE SULFATE 4MG/4ML SYRG IVP STA (17:19)
[2017-08-09] MEDS ORDERED: IBUPROFEN 600 MG TAB PO STA (17:19)
[2017-08-09 17:20] LABS: Basophils # (A) 0.1 k/uL (0-0.2); Basophils % (A) 1 %; Eosinophils # (A) 0.7 k/uL (0-0.7); Eosinophils % (A) 5 %; HCT 36.3 % (39.0-53.0); HGB 12.1 gm/dL (13.0-17.5); Lymphocytes # (A) 2.3 k/uL (1.0-4.8); Lymphocytes % (A) 16 %; MCH 28.3 pg (25.0-35.0); MCHC 33.5 g/dL (31.0-37.0); MCV 84.4 fL (80.0-100.0); Mean Platelet Volume 8.5; Monocytes # (A) 1.2 k/uL (0-1.0); Monocytes % (A) 8 %; Neutrophils % (A) 69 %; Platelet Count 282 k/uL (150-450); RDW 13.3 % (11.5-15.5); WBC 14.5 k/uL (3.8-10.6)
--- NOTE | 2017-08-09 17:26 | ED ---
Abdominal Pain HPI - General Chief Complaint: Abdominal Pain Stated Complaint: abd pain h/o pancreatitis Time Seen by Provider: 08/09/17 16:30 Source: patient, RN notes reviewed, old records reviewed Mode of arrival: ambulatory Limitations: no limitations - History of Present Illness Initial Comments: This patient's 42-year-old male with a history of chronic pancreatitis and recent cholecystectomy by Dr. Hicks presents emergency department today with a fever and 4 days of increasing abdominal pain. He reports that he was discharged from the hospital and finished his antibiotics 2 days ago. He reports that he's had dark urine, but he has not been and hydrating well. Normal bowel movements today. No vomiting, but does feel nauseated. He's had a poor appetite. He reports that his incision sites have been healing well. He reports is also had a minor cough. Denies any significant worsening shortness of breath.Patient denies any recent shortness of breath, chest pain, back pain, numbness or tingling, dysuria or hematuria, constipation or diarrhea , headaches or visual changes, or any other current symptoms - Related Data Home Medications Medication Instructions Recorded Confirmed Omeprazole 40 mg PO DAILY 08/25/16 08/09/17 Mirtazapine [Remeron] 15 mg PO HS 11/23/16 08/09/17 lamoTRIgine [LaMICtal] 100 mg PO BID 03/13/17 08/09/17 Ibuprofen [Motrin Ib] 600 mg PO BID PRN 07/18/17 08/09/17 Buprenorphine HCl/Naloxone HCl 0.5 film SL BID PRN 08/09/17 08/09/17 [Suboxone 8 mg-2 mg Sl Film] OLANZapine [ZyPREXA] 15 mg PO DAILY 08/09/17 08/09/17 Allergies Allergy/AdvReac Type Severity Reaction Status Date / Time codeine Allergy Swelling Verified 08/09/17 17:24 furosemide [From Lasix] Allergy Rash/Hives Verified 08/09/17 17:24 haloperidol [From Haldol] Allergy Unknown Verified 08/09/17 17:24 prochlorperazine Allergy Swelling Verified 08/09/17 17:24 Milk Containing Products AdvReac Severe Diarrhea Verified 08/09/17 17:24 Review of Systems ROS Statement: Those systems with pertinent positive or pertinent negative responses have been documented in the HPI. ROS Other: All systems not noted in ROS Statement are negative. Past Medical History Past Medical History: COPD, Musculoskeletal Disorder, Seizure Disorder Additional Past Medical History / Comment(s): History of seizures-per patient, his last seizure was in 2011, Hepatitis C, Degenerative disc disease in back, possible arthritis in knees, hips and arms. , pancreatitis History of Any Multi-Drug Resistant Organisms: None Reported Past Surgical History: Appendectomy Additional Past Surgical History / Comment(s): Appendectomy-1996, eye surgery- 1998, drain for pancreatitis Past Anesthesia/Blood Transfusion Reactions: No Reported Reaction Past Psychological History: Bipolar, Depression Smoking Status: Current every day smoker Past Alcohol Use History: None Reported Past Drug Use History: Methamphetamine, Opiates, Prescription Drug Abuse - Past Family History Brother(s) Additional Family Medical History / Comment(s): Chronic alcoholism Sister(s) Additional Family Medical History / Comment(s): Chronic alcoholism Daughter(s) Additional Family Medical History / Comment(s): One daughter healthy Son(s) Additional Family Medical History / Comment(s): One son healthy Father History Unknown: Yes Family Medical History: AICD/Pacemaker, Myocardial Infarction ([place]) Additional Family Medical History / Comment(s): Schizophrenia. Per patient, his father at the age of 59 Mother History Unknown: Yes Family Medical History: No Reported History Additional Family Medical History / Comment(s): HPV General Exam - General Exam Comments Initial Comments: 42-year-old male. Patient appears in moderate discomfort. Febrile at 101.5. Limitations: no limitations General appearance: alert, in no apparent distress Head exam: Present: atraumatic, normocephalic, normal inspection Eye exam: Present: normal appearance, PERRL, EOMI. Absent: scleral icterus, conjunctival injection, periorbital swelling ENT exam: Present: normal exam, mucous membranes moist Neck exam: Present: normal inspection. Absent: tenderness, meningismus, lymphadenopathy Respiratory exam: Present: wheezes (Patient has some minor wheezing some is a chronic smoker. He reports that his cough related to smoking.). Absent: normal lung sounds bilaterally, respiratory distress, rales, rhonchi, stridor Cardiovascular Exam: Present: regular rate, normal rhythm, normal heart sounds. Absent: systolic murmur, diastolic murmur, rubs, gallop, clicks GI/Abdominal exam: Present: soft, tenderness (Patient is well-appearing incision site. Left upper quadrant tenderness.), normal bowel sounds. Absent: distended, guarding, rebound, rigid Extremities exam: Present: normal inspection, full ROM, normal capillary refill. Absent: tenderness, pedal edema, joint swelling, calf tenderness Back exam: Present: normal inspection Neurological exam: Present: alert, oriented X3, CN II-XII intact Psychiatric exam: Present: normal affect, normal mood Skin exam: Present: warm, dry, intact, normal color. Absent: rash Course Vital Signs 08/09/17 08/09/17 08/09/17 16:00 17:15 18:22 Temperature 101.4 F H 100.6 F H Pulse Rate 112 H 100 89 Respiratory 18 18 18 Rate Blood Pressure 135/77 130/69 137/89 O2 Sat by Pulse 94 L 95 98 Oximetry 08/09/17 19:56 Temperature 98.5 F Pulse Rate 79 Respiratory 18 Rate Blood Pressure 100/56 O2 Sat by Pulse 95 Oximetry - Reevaluation(s) Reevaluation #1: 08/09/17 17:25 Pepcid patient meet sepsis criteria. Medical Decision Making - Medical Decision Making 42-year-old male presents emergency department today chief complaint worsening abdominal pain or fever. Had a cholecystectomy on 07/22/[address] Hicks. Was discharged on oral antibiotics. Finish them 2 days ago. Complains of fever. He arrives here 101.5. Lactic acid and blood cultures obtained. His white blood cell count 14.5. Meet sepsis criteria. 2 L bolus completed and started on maintenance fluids. Started on IV Zosyn. CT abdomen and pelvis shows stable 7.5 cm pancreatic cyst. Some inflammatory changes noted around it. . Given Zosyn emergency department. Discussed with Dr. Villeda, who will discuss with Dr. Hicks. We'll consult patient's primary care physician for medical management doctor Camacho. - Lab Data Result diagrams: 08/09/17 17:00 08/09/17 17:00 Lab Results 08/09/17 08/09/17 08/09/17 Range/Units 16:45 17:00 17:00 WBC 14.5 H (3.8-10.6) k/uL RBC 4.30 (4.30-5.90) m/uL Hgb 12.1 L (13.0-17.5) gm/dL Hct 36.3 L (39.0-53.0) % MCV 84.4 (80.0-100.0) fL MCH 28.3 (25.0-35.0) pg MCHC 33.5 (31.0-37.0) g/dL RDW 13.3 (11.5-15.5) % Plt Count 282 (150-450) k/uL Neutrophils % 69 % Lymphocytes % 16 % Monocytes % 8 % Eosinophils % 5 % Basophils % 1 % Neutrophils # 10.0 H (1.3-7.7) k/uL Lymphocytes # 2.3 (1.0-4.8) k/uL Monocytes # 1.2 H (0-1.0) k/uL Eosinophils # 0.7 (0-0.7) k/uL Basophils # 0.1 (0-0.2) k/uL Sodium 138 (137-145) mmol/L Potassium 4.2 (3.5-5.1) mmol/L Chloride 98 (98-107) mmol/L Carbon Dioxide 24 (22-30) mmol/L Anion Gap 16 mmol/L BUN 10 (9-20) mg/dL Creatinine 0.70 (0.66-1.25) mg/dL Est GFR (CKD-EPI)AfAm >90 (>60 ml/min/1.73 sqM) Est GFR (CKD-EPI)NonAf >90 (>60 ml/min/1.73 sqM) Glucose 148 H (74-99) mg/dL Plasma Lactic Acid [place] (0.7-2.0) mmol/L Calcium 9.0 (8.4-10.2) mg/dL Total Bilirubin 1.2 (0.2-1.3) mg/dL AST 59 (17-59) U/L ALT 62 (21-72) U/L Alkaline Phosphatase 207 H (38-126) U/L Total Protein 7.4 (6.3-8.2) g/dL Albumin 3.8 (3.5-5.0) g/dL Amylase 145 H (30-110) U/L Lipase 391 H (23-300) U/L Urine Color [place] Urine Appearance Cloudy (Clear) Urine pH 6.0 (5.0-8.0) Ur Specific [place] 1.025 (1.001-1.035) Urine Protein 2+ H (Negative) Urine Glucose (UA) Negative (Negative) Urine Ketones Negative (Negative) Urine Blood Negative (Negative) Urine Nitrite Negative (Negative) Urine Bilirubin 1+ H (Negative) Urine Urobilinogen 8.0 (<2.0) mg/dL Ur Leukocyte Esterase Negative (Negative) Urine RBC 1 (0-5) /hpf Urine WBC 3 (0-5) /hpf Ur Squamous Epith Cells 1 (0-4) /hpf Urine Mucus Many H (None) /hpf 08/09/17 Range/Units 17:00 WBC (3.8-10.6) k/uL RBC (4.30-5.90) m/uL Hgb (13.0-17.5) gm/dL Hct (39.0-53.0) % MCV (80.0-100.0) fL MCH (25.0-35.0) pg MCHC (31.0-37.0) g/dL RDW (11.5-15.5) % Plt Count (150-450) k/uL Neutrophils % % Lymphocytes % % Monocytes % % Eosinophils % % Basophils % % Neutrophils # (1.3-7.7) k/uL Lymphocytes # (1.0-4.8) k/uL Monocytes # (0-1.0) k/uL Eosinophils # (0-0.7) k/uL Basophils # (0-0.2) k/uL Sodium (137-145) mmol/L Potassium (3.5-5.1) mmol/L Chloride (98-107) mmol/L Carbon Dioxide (22-30) mmol/L Anion Gap mmol/L BUN (9-20) mg/dL Creatinine (0.66-1.25) mg/dL Est GFR (CKD-EPI)AfAm (>60 ml/min/1.73 sqM) Est GFR (CKD-EPI)NonAf (>60 ml/min/1.73 sqM) Glucose (74-99) mg/dL Plasma Lactic Acid [place] 1.2 (0.7-2.0) mmol/L Calcium (8.4-10.2) mg/dL Total Bilirubin (0.2-1.3) mg/dL AST (17-59) U/L ALT (21-72) U/L Alkaline Phosphatase (38-126) U/L Total Protein (6.3-8.2) g/dL Albumin (3.5-5.0) g/dL Amylase (30-110) U/L Lipase (23-300) U/L Urine Color Urine Appearance (Clear) Urine pH (5.0-8.0) Ur Specific [place] (1.001-1.035) Urine Protein (Negative) Urine Glucose (UA) (Negative) Urine Ketones (Negative) Urine Blood (Negative) Urine Nitrite (Negative) Urine Bilirubin (Negative) Urine Urobilinogen (<2.0) mg/dL Ur Leukocyte Esterase (Negative) Urine RBC (0-5) /hpf Urine WBC (0-5) /hpf Ur Squamous Epith Cells (0-4) /hpf Urine Mucus (None) /hpf - Radiology Data Radiology results: report reviewed Previously seen large cystic mass in the anterior body of the pancreas. It is similar in size. Mildly inflamed upper anterior margin currently. Right pleural effusion compared to prior study. Disposition Clinical Impression: Postoperative fever, Pleural effusion, Pancreatic pseudocyst, Abdominal pain, Sepsis Disposition: ADMITTED IP TO THIS [facility] Condition: Stable Is patient prescribed a controlled substance at discharge?: No If prescribed controlled substance>3 days was MAPS reviewed?: No When asked, does pt state using other controlled substances?: No Referrals: Bandar Camacho MD [Primary Care Provider] - 1-2 days Time of Disposition: 19:36
[2017-08-09 17:28] LABS: Albumin 3.8 g/dL (3.5-5.0); Glucose 148 mg/dL (74-99); Total Protein 7.4 g/dL (6.3-8.2)
[2017-08-09 17:29] LABS: ALT 62 U/L (21-72); AST 59 U/L (17-59); Alkaline Phosphatase 207 U/L (38-126); Amylase 145 U/L (30-110); Anion Gap 16 mmol/L; Blood Urea Nitrogen 10 mg/dL (9-20); Carbon Dioxide 24 mmol/L (22-30); Chloride 98 mmol/L (98-107); Lipase 391 U/L (23-300); Potassium 4.2 mmol/L (3.5-5.1); Sodium 138 mmol/L (137-145); Total Bilirubin 1.2 mg/dL (0.2-1.3)
--- NOTE | 2017-08-09 18:52 | CT ---
EXAMINATION TYPE: CT abdomen pelvis w con DATE OF EXAM: 08/09/2017 COMPARISON: 07/19/2017 HISTORY: Left side abdominal pain, fever CT DLP: 2070.3 mGycm Automated exposure control for dose reduction was used. TECHNIQUE: Helical acquisition of images was performed from the lung bases through the pelvis. CONTRAST: Performed without Oral Contrast and with IV Contrast, patient injected with 100 mL of Isovu e 300. FINDINGS: VISUALIZED LOWER CHEST: A relatively small right pleural effusion is new since the previous study. LIVER/GB: No significant abnormality is appreciated. PANCREAS: The previously seen 7.5 cm cystic mass anterior body of the pancreas is redemonstrated, wit h similar overall volume. Its upper-anterior margin is ill-defined consistent with edematous change, which could represent an acute or subacute relatively mild pancreatitis component currently. Otherwis e,the margins are similar to the prior study. SPLEEN: No significant abnormality is seen. ADRENALS: No significant abnormality is seen. KIDNEYS: No significant abnormality is seen. FREE AIR: No free air is visualized. RETROPERITONEAL ADENOPATHY: Redemonstrated borderline enlarged aortocaval nodes, stable in appearanc e. REPRODUCTIVE ORGANS: No significant abnormality is seen URINARY BLADDER: No significant abnormality is seen. PELVIC ADENOPATHY: None visualized. OSSEOUS STRUCTURES: No significant abnormality is seen. BOWEL: No significant abnormality is seen. VASCULATURE: Unremarkable. IMPRESSION: 1. PREVIOUSLY SEEN LARGE CYSTIC MASS IN THE ANTERIOR BODY OF THE PANCREAS IS SIMILAR IN SIZE, WITH WI LDLY INFLAMED UPPER-ANTERIOR MARGIN CURRENTLY. 2. NEW RIGHT PLEURAL EFFUSION COMPARED TO THE PRIOR STUDY.
[2017-08-09] MEDS ORDERED: PIPERACILLIN-TAZOBACTAM 3.375 GM in DEXTROSE/WATER 1 50ML.BAG IVPB STA (19:33)
[2017-08-09] MEDS ORDERED: ONDANSETRON 4 MG/2 ML VIAL IVP PRN (19:36)
[2017-08-09] MEDS ORDERED: NALOXONE 0.4 MG/ML 1 ML VIAL IV PRN (19:36)
[2017-08-09] MEDS ORDERED: IBUPROFEN 400 MG TAB PO PRN (19:36)
[2017-08-09] MEDS ORDERED: SODIUM CHLORIDE 0.9% 1,000 ML IV ONE (19:40)
[2017-08-09] MEDS ORDERED: NON-FORMULARY DRUG (Buprenorphine Hcl/Naloxone Hcl [Suboxone 8 Mg-2 Mg Sl Film] 0.5 FILM) SL PRN (22:53)
[2017-08-09] MEDS: SODIUM CHLORIDE 0.9% 1,000 ML IV SCH (22:59)
[2017-08-09] MEDS: lamoTRIgine 100 MG TAB PO SCH (23:44)
[2017-08-09] MEDS: MIRTAZAPINE 15 MG TAB PO SCH (23:44)
[2017-08-10] MEDS: MORPHINE SULFATE 4MG/4ML SYRG IV PRN ×4 (00:02→16:31)
[2017-08-10 01:06] LABS: Creatine Kinase 45 U/L (55-170)
[2017-08-10 01:17] LABS: Creatine Kinase MB 0.4 ng/mL (0.0-2.4); Troponin I <0.012 ng/mL (0.000-0.034)
[2017-08-10] MEDS: PIPERACILLIN-TAZOBACTAM 3.375 GM in DEXTROSE/WATER 1 50ML.BAG IVPB SCH ×3 (03:54→20:44)
[2017-08-10] MEDS: SODIUM CHLORIDE 0.9% 1,000 ML IV SCH ×3 (03:55→20:44)
[2017-08-10] MEDS: lamoTRIgine 100 MG TAB PO SCH ×2 (08:12→20:44)
[2017-08-10] MEDS: PANTOPRAZOLE 40 MG/10 ML VIAL IV SCH (08:12)
[2017-08-10] MEDS: OLANZapine 5 MG TAB PO SCH (08:12)
[2017-08-10 08:38] LABS: Creatine Kinase 33 U/L (55-170)
[2017-08-10 08:49] LABS: Creatine Kinase MB 0.3 ng/mL (0.0-2.4); Troponin I <0.012 ng/mL (0.000-0.034)
[2017-08-10] MEDS ORDERED: NON-FORMULARY DRUG (Omeprazole [Omeprazole] 40 MG) PO SCH (09:00)
[2017-08-10 09:29] LABS: Basophils % (A) 1 %; Eosinophils # (A) 0.4 k/uL (0-0.7); Eosinophils % (A) 4 %; HCT 34.1 % (39.0-53.0); HGB 10.7 gm/dL (13.0-17.5); Hypochromasia Slight; Lymphocytes # (A) 1.3 k/uL (1.0-4.8); Lymphocytes % (A) 15 %; MCH 27.6 pg (25.0-35.0); MCHC 31.4 g/dL (31.0-37.0); MCV 87.9 fL (80.0-100.0); Mean Platelet Volume 9.7; Monocytes # (A) 0.8 k/uL (0-1.0); Monocytes % (A) 9 %; Neutrophils # (A) 6.3 k/uL (1.3-7.7); Neutrophils % (A) 70 %; Platelet Count 208 k/uL (150-450); RBC 3.87 m/uL (4.30-5.90); RDW 13.8 % (11.5-15.5); WBC 8.9 k/uL (3.8-10.6)
--- NOTE | 2017-08-10 09:32 | P.GSHP ---
History of Present Illness H&P Date: 08/10/17 Chief Complaint: Pain abdominal 42-year-old male presented on the day of admission to the emergency room to be evaluated for abdominal pain onset 2-3 days prior. Patient states diffuse abdominal pain across the abdominal wall right lower quadrant greater than the left afebrile no abdominal distention nausea sensation poor oral intake no frequent stooling computed tomography scan abdomen and pelvis with contrast done this admission showed previously seen large cystic mass in the anterior body of the pancreas similar in size Right pleural effusion compared to prior study. Patient stated that he had seen in a postop office visit a week ago and had not been experiencing any pain at that time. Patient is postop laparoscopic cholecystectomy for acute cholelithiasis done on July 21 that admission the patient was hospitalized treated for pancreatitis and a pancreatic pseudocyst and cholelithiasis. Patient states this admission plan was for him to have an EGD with possible drainage of the pancreatic pseudocyst Patient does have a past medical history of bipolar acute on chronic pancreatitis with a history of necrotizing pancreatitis treated at [facility] in [place], IV drug abuse, prescription drug abuse, hepatitis C diagnosed and treated 6 years prior, seizure disorder,, Past surgical history a recent laparoscopic cholecystectomy July 21 2017, appendectomy 1996, pancreatic cyst percutaneous drainage one year prior, pink creatinine stent placed and removed. - Review of Systems Comment: Essentially unremarkable except as mentioned in the present illness Past Medical History Past Medical History: COPD, Musculoskeletal Disorder, Seizure Disorder Additional Past Medical History / Comment(s): History of seizures-per patient, his last seizure was in 2011, Hepatitis C, Degenerative disc disease in back, possible arthritis in knees, hips and arms. , pancreatitis History of Any Multi-Drug Resistant Organisms: None Reported Past Surgical History: Appendectomy Additional Past Surgical History / Comment(s): Appendectomy-1996, eye surgery- 1998, drain for pancreatitis Past Anesthesia/Blood Transfusion Reactions: No Reported Reaction Past Psychological History: Bipolar, Depression Smoking Status: Current every day smoker Past Alcohol Use History: None Reported Additional Past Alcohol Use History / Comment(s): Patient reports he drinks approximately 4 times a year-last drink per patient was this passed wednesday. 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 pt states that he is buying them off the street - Past Family History Brother(s) Additional Family Medical History / Comment(s): Chronic alcoholism Sister(s) Additional Family Medical History / Comment(s): Chronic alcoholism Daughter(s) Additional Family Medical History / Comment(s): One daughter healthy Son(s) Additional Family Medical History / Comment(s): One son healthy Father History Unknown: Yes Family Medical History: AICD/Pacemaker, Myocardial Infarction ([place]) Additional Family Medical History / Comment(s): Schizophrenia. Per patient, his father at the age of 59 Mother History Unknown: Yes Family Medical History: No Reported History Additional Family Medical History / Comment(s): HPV Medications and Allergies Home Medications Medication Instructions Recorded Confirmed Type Omeprazole 40 mg PO DAILY 08/25/16 08/09/17 History Mirtazapine [Remeron] 15 mg PO HS 11/23/16 08/09/17 History lamoTRIgine [LaMICtal] 100 mg PO BID 03/13/17 08/09/17 History Ibuprofen [Motrin Ib] 600 mg PO BID PRN 07/18/17 08/09/17 History Buprenorphine HCl/Naloxone HCl 0.5 film SL BID PRN 08/09/17 08/09/17 History [Suboxone 8 mg-2 mg Sl Film] OLANZapine [ZyPREXA] 15 mg PO DAILY 08/09/17 08/09/17 History Allergies Allergy/AdvReac Type Severity Reaction Status Date / Time codeine Allergy Swelling Verified 08/09/17 17:24 furosemide [From Lasix] Allergy Rash/Hives Verified 08/09/17 17:24 haloperidol [From Haldol] Allergy Unknown Verified 08/09/17 17:24 prochlorperazine Allergy Swelling Verified 08/09/17 17:24 Milk Containing Products AdvReac Severe Diarrhea Verified 08/09/17 17:24 Surgical - Exam Vital Signs Temp Pulse Resp BP Pulse Ox 101.4 F H 112 H 18 135/77 94 L 08/09/17 16:00 08/09/17 16:00 08/09/17 16:00 08/09/17 16:00 08/09/17 16:00 GENERAL APPEARANCE: 42-year-old male patient is alert, oriented, reports having diffuse abdominal cramping right greater than the left VITAL SIGNS: Reviewed HEENT: Head is normocephalic and atraumatic. Pupils are equal and reactive. The nares are patent. Oropharynx is clear without lesions. NECK: Supple without lymphadenopathy. Traches midline. HEART: S1, S2. Regular rate and rhythm. Denying any chest pain no murmur LUNGS: No crackles or wheezes are heard. On room air sats 94% ABDOMEN: Soft, diffuse tenderness across the lower abdominal wall nondistended with good bowel sounds. No peritoneal signs. No palpable organomegaly or masses. reports no nausea vomiting no stool EXTREMITIES: Normal skin color and turgor. No cyanosis, rash, ulceration, clubbing or edema. Radial pedal pulses are 2/4 bilaterally. NEUROLOGICAL: No focal deficits. Strength and sensation are grossly intact. Results - Labs 08/09/17 17:00 08/09/17 17:00 Abnormal Lab Results - Last 24 Hours (Table) 08/09/17 08/09/17 08/09/17 Range/Units 16:45 17:00 17:00 WBC 14.5 H (3.8-10.6) k/uL Hgb 12.1 L (13.0-17.5) gm/dL Hct 36.3 L (39.0-53.0) % Neutrophils # 10.0 H (1.3-7.7) k/uL Monocytes # 1.2 H (0-1.0) k/uL Glucose 148 H (74-99) mg/dL Alkaline Phosphatase 207 H (38-126) U/L Total Creatine Kinase (55-170) U/L Amylase 145 H (30-110) U/L Lipase 391 H (23-300) U/L Urine Protein 2+ H (Negative) Urine Bilirubin 1+ H (Negative) Urine Mucus Many H (None) /hpf 08/10/17 08/10/17 Range/Units 00:00 07:27 WBC (3.8-10.6) k/uL Hgb (13.0-17.5) gm/dL Hct (39.0-53.0) % Neutrophils # (1.3-7.7) k/uL Monocytes # (0-1.0) k/uL Glucose (74-99) mg/dL Alkaline Phosphatase (38-126) U/L Total Creatine Kinase 45 L 33 L (55-170) U/L Amylase (30-110) U/L Lipase (23-300) U/L Urine Protein (Negative) Urine Bilirubin (Negative) Urine Mucus (None) /hpf Diabetes panel 08/09/17 Range/Units 17:00 Sodium 138 (137-145) mmol/L Potassium 4.2 (3.5-5.1) mmol/L Chloride 98 (98-107) mmol/L Carbon Dioxide 24 (22-30) mmol/L BUN 10 (9-20) mg/dL Creatinine 0.70 (0.66-1.25) mg/dL Glucose 148 H (74-99) mg/dL Calcium 9.0 (8.4-10.2) mg/dL AST 59 (17-59) U/L ALT 62 (21-72) U/L Alkaline Phosphatase 207 H (38-126) U/L Total Protein 7.4 (6.3-8.2) g/dL Albumin 3.8 (3.5-5.0) g/dL Calcium panel 08/09/17 Range/Units 17:00 Calcium 9.0 (8.4-10.2) mg/dL Albumin 3.8 (3.5-5.0) g/dL Pituitary panel 08/09/17 Range/Units 17:00 Sodium 138 (137-145) mmol/L Potassium 4.2 (3.5-5.1) mmol/L Chloride 98 (98-107) mmol/L Carbon Dioxide 24 (22-30) mmol/L BUN 10 (9-20) mg/dL Creatinine 0.70 (0.66-1.25) mg/dL Glucose 148 H (74-99) mg/dL Calcium 9.0 (8.4-10.2) mg/dL Adrenal panel 08/09/17 Range/Units 17:00 Sodium 138 (137-145) mmol/L Potassium 4.2 (3.5-5.1) mmol/L Chloride 98 (98-107) mmol/L Carbon Dioxide 24 (22-30) mmol/L BUN 10 (9-20) mg/dL Creatinine 0.70 (0.66-1.25) mg/dL Glucose 148 H (74-99) mg/dL Calcium 9.0 (8.4-10.2) mg/dL Total Bilirubin 1.2 (0.2-1.3) mg/dL AST 59 (17-59) U/L ALT 62 (21-72) U/L Alkaline Phosphatase 207 H (38-126) U/L Total Protein 7.4 (6.3-8.2) g/dL Albumin 3.8 (3.5-5.0) g/dL Assessment and Plan Assessment: Impression Present on admission abdominal pain nausea suspect due to large pseudocyst as evident on a CAT scan of the abdomen pelvis CAT scan abdomen and pelvis report indicates large cystic mass in the anterior body of the pancreas similar in size to prior scan A recent laparoscopic cholecystectomy July 21 for acute cholelithiasis Major Depressive disorder treated in the mental health December 2016 Opiate use disorder in remission on Suboxone History of a recent ERCP 6 months prior [facility] Acute on chronic pancreatitis with a history of necrotizing pancreatitis treated at [facility] History of hepatitis C diagnosed and treated approximate 6 years ago IV drug abuse Prescription drug abuse opiates Current every day smoker Plan Consult medicine for medical management Keep nothing by mouth for planned EGD today IV fluid for hydration Follow-up on pending labs Pain control Home meds as appropriate Further recommendations pending findings from EGD Dictated for Dr. white The above impression and plan of care have been discussed and directed by signing physician. Ana Meredith nurse practitioner acting as scribe for signing physician.
[2017-08-10 09:47] LABS: ALT 59 U/L (21-72); AST 59 U/L (17-59); Albumin 2.9 g/dL (3.5-5.0); Alkaline Phosphatase 177 U/L (38-126); Anion Gap 11 mmol/L; Blood Urea Nitrogen 9 mg/dL (9-20); Calcium 8.6 mg/dL (8.4-10.2); Carbon Dioxide 27 mmol/L (22-30); Chloride 105 mmol/L (98-107); Glucose 119 mg/dL (74-99); Lipase 234 U/L (23-300); Potassium 4.2 mmol/L (3.5-5.1); Sodium 143 mmol/L (137-145); Total Bilirubin 0.9 mg/dL (0.2-1.3); Total Protein 5.7 g/dL (6.3-8.2)
[2017-08-10] MEDS ORDERED: PROPOFOL 10 MG/ML 20 ML VIAL IV ONE (12:38)
[2017-08-10] MEDS ORDERED: LIDOCAINE 1% INJ 10MG/ML (20 ML MDV) ONE (12:38)
[2017-08-10] MEDS ORDERED: IV FLUID CONTINUATION 150 ML IV ONE (12:39)
--- NOTE | 2017-08-10 12:50 | P.OP ---
Date of Procedure: 08/10/17 Preoperative Diagnosis: Pancreatic pseudocyst Postoperative Diagnosis: Mild antral gastritis Procedure(s) Performed: EGD Anesthesia: MAC Surgeon: Donny Hicks Pathology: other (Antrum) Condition: stable Description of Procedure: The patient's placed on the endoscopy table in the lateral position. He received IV sedation. The gastroscope placed oropharynx and passed into the esophagus and into the stomach. Scope was then placed through the pylorus. The first and second portion of the duodenum appeared normal. Scope was then brought back the antrum and this appeared mildly inflamed. A biopsies performed. The scope was unretroflexed and remainder of the stomach appeared normal. There was no visualization of the pancreas pseudocyst pushing on the stomach. The GE junction was at 40 cm. The distal esophagus appeared normal. The proximal esophagus appeared normal. Scope was then brought patient.
[2017-08-10] MEDS ORDERED: LACTATED RINGERS 1,000 ML IV ONE ×2 (12:56)
[2017-08-10 13:01] LABS: Creatine Kinase 32 U/L (55-170)
[2017-08-10 13:13] LABS: Creatine Kinase MB <0.2 ng/mL (0.0-2.4); Troponin I <0.012 ng/mL (0.000-0.034)
[2017-08-10] MEDS: ACETAMINOPHEN TAB 325 MG TAB PO PRN (13:46)
[2017-08-10] MEDS: KETOROLAC 30 MG/ML 1 ML VIAL IVP PRN (13:48)
--- NOTE | 2017-08-10 14:42 | CDI ---
Last Revision, March 2017 Documentation Clarification Form Date: 08/10/17 From: Berenice Colon RN,CCDS Admit Date: 08/09/2017 8:01:00 PM Patient Name: Juan Ralph Visit Number: [id number] Discharge Date: ATTENTION: The Clinical Documentation Specialists (CDI) and [facility] Coding Staff appreciate your assistance in clarifying documentation. Please respond to the clarification below the line at the bottom and electronically sign. The CDI & [facility] Coding staff will review the response and follow-up if needed. Please note: Queries are made part of the Legal Health Record. If you have any questions, please contact the author of this message via ITS. Dr. Donny Hicks Emergency department evaluation has documented that patient meet sepsis criteria. Pancreatic pseudocyst, abdominal pain, sepsis. History/Risk Factors: Chronic pancreatitis, Seizure Disorder, Hepatitis C with treatment 6 years ago, Current every day smoker Clinical Indicators: Present to emergency department with complaint of worsening abdominal pain and fever. WBC/Left Shift 14.5 Lactic acid: 1,2 Vitals signs on admission: 135/77 112/18 101.4 94 % RA CT abdomen and pelvis: stable 7.5 cm pancreatic cyst, some inflammatory changes noted around it. Treatment: 2/L bolus Zosyn IV IV Fluids@ 120/hr Monitor Labs In your professional opinion, please clarify if these findings signify one of the following conditions, whether the condition is POA, and cause, if known: Condition Sepsis ruled out Sepsis ruled in Other, please specify Unable to determine Present on Admission: Yes No Link or clarify if there is associated (due to/with): Please continue to document in your progress notes and discharge summary in order to capture severity of illness and risk of mortality. Include clinical findings that support your diagnosis. This patient had a pulmonary process causing his sepsis symptoms. Please defer to the pulmonary service and Dr. Bandar HELLER
[2017-08-10] MEDS ORDERED: SODIUM CHLORIDE 0.9% 1,000 ML IV ONE (14:51)
[2017-08-10 15:29] LABS: Glucose,Whole Blood 163 mg/dL (75-99)
--- NOTE | 2017-08-10 15:54 | XR ---
EXAMINATION TYPE: XR chest 1V DATE OF EXAM: 08/10/2017 COMPARISON: Prior chest x-ray 12/26/2016 HISTORY: Tremors of breath TECHNIQUE: Single frontal view of the chest is obtained. FINDINGS: There is been interval development of increased attenuation at the right lung base. Patien t is rotated. Cardiac mediastinal silhouette thought to be stable accounting for differences in techn ique. No pneumothorax evident. IMPRESSION: Correlate for right lower lobe pneumonia versus atelectasis and possible associated effu chana. Follow-up is recommended.
[2017-08-10 16:08] LABS: Basophils # (A) 0.1 k/uL (0-0.2); Basophils % (A) 0 %; Eosinophils # (A) 0.4 k/uL (0-0.7); Eosinophils % (A) 3 %; HCT 34.4 % (39.0-53.0); HGB 10.9 gm/dL (13.0-17.5); Hypochromasia Slight; Lymphocytes # (A) 1.3 k/uL (1.0-4.8); Lymphocytes % (A) 10 %; MCH 27.6 pg (25.0-35.0); MCHC 31.6 g/dL (31.0-37.0); MCV 87.6 fL (80.0-100.0); Mean Platelet Volume 8.6; Monocytes % (A) 7 %; Neutrophils # (A) 10.2 k/uL (1.3-7.7); Neutrophils % (A) 77 %; Platelet Count 244 k/uL (150-450); RBC 3.93 m/uL (4.30-5.90); RDW 13.4 % (11.5-15.5); WBC 13.3 k/uL (3.8-10.6)
[2017-08-10 16:10] LABS: INR 1.3 (<1.2); Prothrombin Time 12.5 sec (9.0-12.0)
[2017-08-10 16:14] LABS: ALT 49 U/L (21-72); AST 39 U/L (17-59); Albumin 2.7 g/dL (3.5-5.0); Alkaline Phosphatase 163 U/L (38-126); Anion Gap 11 mmol/L; Blood Urea Nitrogen 9 mg/dL (9-20); Carbon Dioxide 25 mmol/L (22-30); Chloride 105 mmol/L (98-107); Glucose 162 mg/dL (74-99); Potassium 3.5 mmol/L (3.5-5.1); Sodium 141 mmol/L (137-145); Total Bilirubin 0.9 mg/dL (0.2-1.3); Total Protein 5.2 g/dL (6.3-8.2)
--- NOTE | 2017-08-10 18:26 | CT ---
EXAMINATION TYPE: CT chest wo con DATE OF EXAM: 08/10/2017 COMPARISON: December 26, 2016 HISTORY: pneumonia CT DLP: 469.[address] of the chest was performed with lung and mediastinal window settings submitted. The la ck of contrast limits evaluation of the vascular, mediastinal and parenchymal structures including th e upper abdomen. LUNGS: Moderate partially loculated right-sided pleural effusion is a new finding. Other areas of pat los density which may reflect atelectasis or infiltrate. There is a discoid atelectasis left lower lo be. No sizable left-sided pleural effusion identified at this time. Calcified pulmonary nodules as we ll as calcified mediastinal lymph nodes indicate prior granulomatous infection. MEDIASTINUM/TAMELA: Thoracic aorta is of normal caliber with limited evaluation given lack of contrast . The heart is not enlarged. No evidence for mediastinal mass. No lymph nodes greater than 1cm. C alcified lymph nodes noted. UPPER ABDOMEN: Inflammatory changes upper abdomen. Cystic mass in the lesser sac. OTHER: No significant other abnormality. IMPRESSION: 1. Moderately large partially loculated right-sided pleural effusion. Areas of compressive atelectas is. Underlying infiltrate not its. 2. Remote granulomatous changes. 3. Upper abdominal findings have been described on recent CT abdomen pelvis.
[2017-08-10] MEDS ORDERED: VANCOMYCIN IV PER PHARMACY 1 EACH MISC MISCELLANE PRN (20:39)
[2017-08-10] MEDS: MIRTAZAPINE 15 MG TAB PO SCH (20:44)
--- NOTE | 2017-08-10 20:49 | P.CNPUL ---
History of Present Illness Consult date: 08/10/17 Requesting physician: Donny Hicks Reason for consult: dyspnea, other Chief complaint: Dyspnea, fever, pancreatic pseudocyst History of present illness: Juan is a 42-year-old white male patient of Dr. Bandar Camacho who presented to the emergency department on 08/09/2017 at 1438 with complaints of diffuse abdominal pain across the left upper quadrant, fever. Denied any nausea, denied any vomiting, or diarrhea or abdominal distention. Reports poor oral intake. Patient was recently hospitalized for chronic pancreatitis and underwent recent laparoscopic cholecystectomy for acute cholelithiasis on 2017 Dr. Hicks and discharged home on 07/26/2017 on oral antibiotics which the patient has completed. Patient was treated for pancreatitis, and a pancreatic pseudocyst and cholelithiasis. He was seen in the follow-up and an office visit a week ago and was feeling well at that time. The plan was to have an EGD with possible drainage of the pancreatic pseudocyst. 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 CT of abdomen and pelvis with contrast revealed previously seen large cystic mass in the anterior body of the pancreas, with mildly inflamed upper anterior margin, and a new right pleural effusion compared to the prior study. Patient was febrile, with a temp of 101.4F presentation and has been intermittently febrile during this admission. Hemodynamically stable. Tachycardic with a heart rate up to 110 BPM, and tachypneic at times. Lab work on admission showed WBC of 14.5, hemoglobin of 12.1, electrolytes were within normal limits, renal profile was within normal limits, alkaline phosphatase was 207, malaise was 145 which is down from 152 upon discharge on 07/20/2017, lipase was 391. Upon his were negative 3. Urinalysis showed 2+ protein, 1+ nitrites. Patient was given 2 L of IV fluid boluses of 0.9 normal saline in the emergency room, and his maintenance IV fluids were started at 120 ML per hour. Patient was started on Zosyn for antibiotic coverage, he was given IV Toradol and morphine pain control. Patient was seen by general surgery and had an EGD on 08/10/2017, and was found to have mild antral gastritis. There was no visualization of the pancreatic pseudocyst during the procedure. The distal and the proximal esophagus appeared normal. He was then transferred to a regular medical surgical room in stable condition. Patient continued to be intermittently febrile, slightly dyspneic, but in no respiratory distress. Blood cultures were collected and sent, patient was given an additional 1 L of 0.9 normal saline IV bolus, her a total of 3 L of IV 0.9 bolus. Infectious disease service consult was initiated who recommended to continue with Zosyn at this time for antibiotic coverage. Lactic acid was within normal at 1.9. Today's blood work shows WBC of 13.3, hemoglobin of 10.9, INR 1.3, electrolytes and renal profile remained within normal limits. Patient was seen sitting up on the edge of the bed, denying any acute distress. Denied any chest pain, denied any acute dyspnea. Slightly pale and diaphoretic, receiving IV bolus of 0.9 normal saline. Some left upper abdominal tenderness, but abdomen is soft. Chest x-ray was obtained and showed right lower lobe pneumonia versus atelectasis and possible associated effusion. S1 is followed by CT chest without contrast which showed moderately large partially loculated right-sided pleural effusion, areas of compressive atelectasis, or infiltrate. Remote granulomatous changes. Patient is currently on 2 L per nasal cannula with O2 sat 95%, most recent vitals include a temperature of 98.1F, heart rate of 100 bpm, respiratory rate of 18, and blood pressure 119/64. Review of Systems Constitutional: Reports fatigue, Reports fever, Reports night sweats, Reports weakness Eyes: denies blurred vision, denies bulging eye, denies decreased vision Ears: deny: decreased hearing, ear discharge, earache Ears, nose, mouth and throat: Denies headache, Denies sore throat Cardiovascular: Reports dyspnea on exertion Respiratory: Reports dyspnea Gastrointestinal: Reports as per HPI Genitourinary: Reports as per HPI Musculoskeletal: Denies myalgias Musculoskeletal: absent: ankle pain, ankle stiffness, ankle swelling Integumentary: Denies pruritus, Denies rash Neurological: Reports weakness, Denies numbness Psychiatric: Denies anxiety, Denies depression Endocrine: Reports fatigue Hematologic/Lymphatic: Reports as per HPI Allergic/Immunologic: Reports as per HPI Past Medical History Past Medical History: COPD, Musculoskeletal Disorder, Seizure Disorder Additional Past Medical History / Comment(s): History of seizures-per patient, his last seizure was in 2011, Hepatitis C, history of IV drug use, history of crack cocaine use, Degenerative disc disease in back, possible arthritis in knees, hips and arms. , History of chronic pancreatitis who presented status post cholecystectomy and the patient has history of pancreatitis and pancreatic pseudocyst formation and cholelithiasis and he was treated in the past. [facility]. History of Any Multi-Drug Resistant Organisms: None Reported Past Surgical History: Appendectomy Additional Past Surgical History / Comment(s): Appendectomy-1996, eye surgery- 1998, drain for pancreatitis Past Anesthesia/Blood Transfusion Reactions: No Reported Reaction Past Psychological History: Bipolar, Depression Smoking Status: Current every day smoker Past Alcohol Use History: None Reported Additional Past Alcohol Use History / Comment(s): Patient reports he drinks approximately 4 times a year-last drink per patient was this passed wednesday. 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 pt states that he is buying them off the street - Past Family History Brother(s) Additional Family Medical History / Comment(s): Chronic alcoholism Sister(s) Additional Family Medical History / Comment(s): Chronic alcoholism Daughter(s) Additional Family Medical History / Comment(s): One daughter healthy Son(s) Additional Family Medical History / Comment(s): One son healthy Father History Unknown: Yes Family Medical History: AICD/Pacemaker, Myocardial Infarction ([place]) Additional Family Medical History / Comment(s): Schizophrenia. Per patient, his father at the age of 59 Mother History Unknown: Yes Family Medical History: No Reported History Additional Family Medical History / Comment(s): HPV Medications and Allergies Home Medications Medication Instructions Recorded Confirmed Type Omeprazole 40 mg PO DAILY 08/25/16 08/09/17 History Mirtazapine [Remeron] 15 mg PO HS 11/23/16 08/09/17 History lamoTRIgine [LaMICtal] 100 mg PO BID 03/13/17 08/09/17 History Ibuprofen [Motrin Ib] 600 mg PO BID PRN 07/18/17 08/09/17 History Buprenorphine HCl/Naloxone HCl 0.5 film SL BID PRN 08/09/17 08/09/17 History [Suboxone 8 mg-2 mg Sl Film] OLANZapine [ZyPREXA] 15 mg PO DAILY 08/09/17 08/09/17 History Allergies Allergy/AdvReac Type Severity Reaction Status Date / Time codeine Allergy Swelling Verified 08/09/17 17:24 furosemide [From Lasix] Allergy Rash/Hives Verified 08/09/17 17:24 haloperidol [From Haldol] Allergy Unknown Verified 08/09/17 17:24 prochlorperazine Allergy Swelling Verified 08/09/17 17:24 Milk Containing Products AdvReac Severe Diarrhea Verified 08/09/17 17:24 Physical Exam Vitals: Vital Signs Temp Pulse Pulse Resp BP BP BP 08/10/17 16:00 20 08/10/17 15:10 98.1 F 100 18 119/64 08/10/17 14:45 100.5 F H 113 H 16 121/67 08/10/17 13:53 101 F H 08/10/17 13:45 103.1 F H 115 H 24 95/58 08/10/17 13:17 100.3 F H 117 H 22 108/72 08/10/17 06:44 97.6 F 90 22 96/53 08/09/17 22:30 97.0 F L 82 16 120/70 08/09/17 21:36 98.4 F 71 16 108/64 Pulse Ox 08/10/17 16:00 08/10/17 15:10 95 08/10/17 14:45 95 08/10/17 13:53 08/10/17 13:45 95 08/10/17 13:17 96 08/10/17 06:44 93 L 08/09/17 22:30 94 L 08/09/17 21:36 96 Intake and Output 08/10/17 08/10/17 08/10/17 06:59 14:59 22:59 Intake Total 100 Output Total 450 Balance -350 Intake: IV 100 Output: Urine 450 Other: Voiding Method Toilet Urinal Urinal # Voids 1 2 Weight 113.398 kg GENERAL APPEARANCE: 42-year-old male patient is alert, oriented, reports having diffuse abdominal cramping right greater than the left VITAL SIGNS: Reviewed HEENT: Head is normocephalic and atraumatic. Pupils are equal and reactive. The nares are patent. Oropharynx is clear without lesions. NECK: Supple without lymphadenopathy. Traches midline. HEART: S1, S2. Regular rate and rhythm. Denying any chest pain no murmur LUNGS: No crackles or wheezes are heard. The patient diminished breath on the right lung base along with some dullness to percussion. No wheezes. No rhonchi. ABDOMEN: Soft, diffuse tenderness across the lower abdominal wall nondistended with good bowel sounds. No peritoneal signs. No palpable organomegaly or masses. reports no nausea vomiting no stool EXTREMITIES: Normal skin color and turgor. No cyanosis, rash, ulceration, clubbing or edema. Radial pedal pulses are 2/4 bilaterally. NEUROLOGICAL: No focal deficits. Strength and sensation are grossly intact. Results - Laboratory Findings CBC and BMP: 08/10/17 15:47 08/10/17 15:47 PT/INR, D-dimer PT 12.5 sec (9.0-12.0) H 08/10/17 15:47 INR 1.3 (<1.2) H 08/10/17 15:47 Abnormal lab findings: Abnormal Labs 08/09/17 08/09/17 08/09/17 16:45 17:00 17:00 WBC 14.5 H RBC Hgb 12.1 L Hct 36.3 L Neutrophils # 10.0 H Monocytes # 1.2 H PT INR Creatinine Glucose 148 H POC Glucose (mg/dL) Calcium Alkaline Phosphatase 207 H Total Creatine Kinase Total Protein Albumin Amylase 145 H Lipase 391 H Urine Protein 2+ H Urine Bilirubin 1+ H Urine Mucus Many H 08/10/17 08/10/17 08/10/17 00:00 07:27 07:27 WBC RBC 3.87 L Hgb 10.7 L Hct 34.1 L Neutrophils # Monocytes # PT INR Creatinine Glucose POC Glucose (mg/dL) Calcium Alkaline Phosphatase Total Creatine Kinase 45 L 33 L Total Protein Albumin Amylase Lipase Urine Protein Urine Bilirubin Urine Mucus 08/10/17 08/10/17 08/10/17 07:27 12:10 15:27 WBC RBC Hgb Hct Neutrophils # Monocytes # PT INR Creatinine 0.62 L Glucose 119 H POC Glucose (mg/dL) 163 H Calcium Alkaline Phosphatase 177 H Total Creatine Kinase 32 L Total Protein 5.7 L Albumin 2.9 L Amylase Lipase Urine Protein Urine Bilirubin Urine Mucus 08/10/17 08/10/17 08/10/17 15:47 15:47 15:47 WBC 13.3 H RBC 3.93 L Hgb 10.9 L Hct 34.4 L Neutrophils # 10.2 H Monocytes # PT 12.5 H INR 1.3 H Creatinine Glucose 162 H POC Glucose (mg/dL) Calcium 8.0 L Alkaline Phosphatase 163 H Total Creatine Kinase Total Protein 5.2 L Albumin 2.7 L Amylase Lipase Urine Protein Urine Bilirubin Urine Mucus - Diagnostic Findings Chest x-ray: image reviewed CT scan - chest: image reviewed Assessment and Plan Plan: Assessment 1. Right-sided pleural effusion, loculated, likely ectopic a parapneumonic effusion related to possibly hospital-acquired pneumonia versus aspiration pneumonia. The patient is [place]ax[place] pleural effusion on admission and subsequent CAT scan of the chest that was obtained today showed further increase in the size of the effusion along with development of loculation. 2 acute hypoxic respiratory failure secondary to above 3 episodic fever, multifactorial. Could be related to underlying lung infection versus pancreatitis. Infected pancreatic pseudocyst is also possible boluses felt to be less likely. 4 chronic pancreatitis with formation of pancreatic pseudocyst, status post EGD 5 status post endoscopic cholecystectomy performed on 07/21/2017 6 hepatitis C viral infection secondary to IV drug use 7 history of drug abuse 8 major depression to the mental health facility December 2016 9 Chronic cholelithiasis status post cholecystectomy Current mild leukocytosis 11 anemia, mild, stable Plan Continue current antibiotic coverage with Zosyn and vancomycin for possible comprehensive hospital-acquired pneumonia. We will monitor the right-sided pleural effusion and likely the patient will need a drainage probably initially with a thoracentesis subsequently a drainage tube will be needed especially if the fluid itself resulted loculated and complicated later stage. Monitor fever pattern. Currently the patient on oxygen at 2 L per minute nasal cannula. We' ll provide him with incentive spirometer. We'll discuss the case with general surgery anxiety is also on the case. We'll continue to follow. I performed a history & physical examination of the patient and discussed their management with my nurse practitioner, Claudia Lopes. I reviewed the nurse practitioner's note and agree with the documented findings and plan of care. Lung sounds are diminished over right lower base. The findings and the impression was discussed with the patient. I attest to the documentation by the nurse practitioner. Time with Patient: Greater than 30
[2017-08-10] MEDS ORDERED: VANCOMYCIN 2,250 MG in SODIUM CHLORIDE 0.9% 500 ML IVPB ONE (21:00)
[2017-08-10] MEDS: MEROPENEM 1 GM in SODIUM CHLORIDE 0.9% 100 ML IVPB SCH (21:55)
[2017-08-11] MEDS ORDERED: VANCOMYCIN 2,250 MG in SODIUM CHLORIDE 0.9% 500 ML IVPB ONE ×2
[2017-08-11] MEDS ORDERED: MORPHINE SULFATE 4 MG/ML SYRINGE ONE ×2 (00:45)
--- NOTE | 2017-08-11 03:12 | CONS ---
CONSULTATION DATE OF SERVICE: 08/10/2017 REASON FOR CONSULTATION: Fever. HISTORY OF PRESENT ILLNESS: The patient is a 42-year-old male with a past medical history significant for pancreatitis and pancreatic pseudocyst that he has for a couple of months now. He was recently admitted to this facility and is status post laparoscopic cholecystectomy. Post cholecystectomy, the patient was having a problem with abdominal pain. He did have some fever, however, he did have a HIDA scan that was negative for any biliary leak. After stabilization, the patient was discharged home on oral antibiotic therapy, which the patient has completed. The patient has presented back to the [facility] ER yesterday with the chief complaints of abdominal pain. Pain has been mostly on the middle and left upper abdominal area described to be more of a sharp pain almost 7 to 8/10, and no radiation. The patient has been nauseated with no vomiting. The patient denies having any diarrhea or any constipation. With these symptoms, the patient has been evaluated by the ER physician. The patient did have a CT of abdomen and pelvis, which did show pancreatic pseudocyst without any significant increase in size but did show some inflammatory changes around it. The patient did have a fever. The patient has been started on Zosyn. He was taken to the OR this morning and is status post EGD with attempted drainage of this pseudocyst; however, the process was not completed with persistent fever. Infectious Disease was consulted for further recommendation of antibiotic therapy. The CT of the abdomen and pelvis did show evidence of a pleural effusion for which a CT scan was done of the chest, which did show a right-sided pleural effusion and pulmonary is planning of tapping of the fluid. Vancomycin was added and pending further evaluation. REVIEW OF SYSTEMS: CONSTITUTIONAL: Positive for fever along with weakness. EYES: No complaints. ENT: No complaint. RESPIRATORY: As per HPI. CARDIOVASCULAR: No complaint. GENITOURINARY: No complaint. GASTROINTESTINAL: As per HPI. MUSCULOSKELETAL: No complaint. INTEGUMENTARY: No complaint. PSYCHOLOGICAL: No complaint. ENDOCRINE: No complaint. NEUROLOGIC: No complaint. PAST MEDICAL HISTORY: Significant for bipolar disorder. He did have seizure disorder, necrotizing pancreatitis, COPD, hepatitis C, chronic back pain. PAST SURGICAL HISTORY: Appendectomy, eye surgery, and drainage of the pancreas. SOCIAL HISTORY: Current heavy smoker. Denies drinking or drug use. FAMILY HISTORY: Positive for alcoholism. ALLERGIES: CODEINE, FUROSEMIDE, HALOPERIDOL. MEDICATIONS: The patient is currently on Tylenol, Motrin, Toradol, Lamictal, Remeron, morphine sulfate, Zyprexa, Zofran, Protonix, vancomycin with pharmacy to dose. EXAMINATION: Blood pressure is 145/65, pulse of 99, temperature of 98.8. T-max is 103.1. He is 94% on 2 L nasal cannula. General description is an middle-aged male lying in bed in no distress. HEENT examination showed no pallor, no scleral icterus. Oral mucous membranes dry. No pharyngeal erythema or thrush. NECK: Trachea is central. No thyromegaly. LUNGS: Unlabored breathing, clear to auscultation anteriorly. No wheeze or crackle. HEART: S1, S2. Regular rate and rhythm. ABDOMEN: Soft. He is mildly distended and tender in the epigastric area. No guarding or rigidity. No organomegaly. EXTREMITIES: No edema of the feet. SKIN EXAMINATION: No rash or mass palpable. NEUROLOGIC: The patient is awake, alert, oriented x3. Mood and affect normal. LABS: Hemoglobin is 10.9, white count 13.3 with a BUN of 9 and creatinine 0.69. Blood culture obtained and currently pending. DIAGNOSTIC IMPRESSION AND PLAN: Patient with sepsis and the patient did have fever of 103. The patient did have tachycardia. Did have white count of 13,000 source is likely abdominal in a patient who does have a pancreatic pseudocyst with some inflammatory changes noted on the recent CAT scan. The patient also had right-sided pleural effusion, question of possible loculated underlying pneumonia not entirely excluded. However, the patient's predominant symptom has been abdominal pain rather than pulmonary. The patient has been in and out of the hospital, has been previously on Zosyn. We will need to cover for the resistant gram positive, as well as gram-negative pathogen. PLAN: 1. Discontinue the Zosyn. 2. We will start the patient on meropenem 1 g IV piggyback q.8 hours. 3. Vancomycin pharmacy to dose, target trough of 15. 4. We will try to obtain sputum for Gram stain culture and sensitivity. 5. Depending upon his clinical response, as well as cultures we will adjust antibiotic further if needed. Thank you for this consultation. MMODL / IJN: [id number] / PINA
[2017-08-11] MEDS: MEROPENEM 1 GM in SODIUM CHLORIDE 0.9% 100 ML IVPB SCH ×3 (06:34→22:32)
[2017-08-11] MEDS: SODIUM CHLORIDE 0.9% 1,000 ML IV SCH ×3 (08:04→23:10)
[2017-08-11] MEDS: PANTOPRAZOLE 40 MG/10 ML VIAL IV SCH (08:49)
[2017-08-11] MEDS: OLANZapine 5 MG TAB PO SCH (08:49)
[2017-08-11] MEDS: VANCOMYCIN 2,000 MG in SODIUM CHLORIDE 0.9% 500 ML IVPB SCH ×3 (08:49→23:10)
[2017-08-11] MEDS: lamoTRIgine 100 MG TAB PO SCH ×2 (08:50→20:13)
[2017-08-11] MEDS: MORPHINE SULFATE 4MG/4ML SYRG IV PRN (08:50)
[2017-08-11] MEDS: KETOROLAC 30 MG/ML 1 ML VIAL IVP PRN ×2 (08:51→17:32)
[2017-08-11 09:14] LABS: Basophils % (A) 0 %; Eosinophils # (A) 0.3 k/uL (0-0.7); Eosinophils % (A) 2 %; HCT 33.3 % (39.0-53.0); HGB 10.4 gm/dL (13.0-17.5); Hypochromasia Slight; Lymphocytes # (A) 1.6 k/uL (1.0-4.8); Lymphocytes % (A) 13 %; MCH 27.5 pg (25.0-35.0); MCHC 31.3 g/dL (31.0-37.0); Mean Platelet Volume 8.5; Monocytes # (A) 1.3 k/uL (0-1.0); Monocytes % (A) 10 %; Neutrophils # (A) 8.8 k/uL (1.3-7.7); Neutrophils % (A) 72 %; Platelet Count 252 k/uL (150-450); RBC 3.79 m/uL (4.30-5.90); RDW 13.4 % (11.5-15.5); WBC 12.2 k/uL (3.8-10.6)
[2017-08-11 09:40] LABS: ALT 46 U/L (21-72); AST 44 U/L (17-59); Albumin 2.7 g/dL (3.5-5.0); Alkaline Phosphatase 164 U/L (38-126); Anion Gap 10 mmol/L; Blood Urea Nitrogen 7 mg/dL (9-20); Calcium 7.9 mg/dL (8.4-10.2); Carbon Dioxide 24 mmol/L (22-30); Chloride 104 mmol/L (98-107); Glucose 115 mg/dL (74-99); Sodium 138 mmol/L (137-145); Total Bilirubin 1.3 mg/dL (0.2-1.3); Total Protein 5.4 g/dL (6.3-8.2)
--- NOTE | 2017-08-11 10:21 | CONS ---
CONSULTATION DATE OF SERVICE: 08/10/2017 CHIEF COMPLAINT: This is a 42-year-old white male with positive pneumonia on chest x-ray for medical management consult. He has been started on broad-spectrum antibiotics for pancreatitis and for possible pneumonia. States he cannot breathe, at this time is short of breath. Abdominal pain is improving. ALLERGIES: Allergies are to CODEINE, LASIX, HALDOL, PROCHLORPERAZINE. ACTIVE MEDICATIONS: Motrin, Toradol, Lamictal, meropenem, MS Contin IV, Zyprexa, Zofran, Protonix, vancomycin. HOME MEDICATIONS: Remeron, Lamictal, Zyprexa, omeprazole, Suboxone, ibuprofen. PHYSICAL EXAMINATION: Temp 98.1 to 98.6 with pulse rate is 100 to 109, respiratory 16 to 20, blood pressure is 112 to 119 over 60 to 65, O2 is 94% on 2 L. CARDIOVASCULAR: S1, S2. LUNGS: Scattered rhonchi and wheeze. GI: Distended due to obesity. Scattered tenderness, diffuse. HEMATOLOGIC: Negative Homans. VASCULAR: Normal dorsalis pedis, posterior tibial and radial pulse. OPHTHALMOLOGIC: Pupils equal, round, react to light and accommodation. LUNGS: Show rales and rhonchi x4. ASSESSMENT: Acute on chronic pancreatitis, status post gallbladder removal. He has sepsis secondary to possible pneumonia versus pancreatic pseudocyst inflammation. Will start him on Zosyn. Will do a CAT scan of his chest. MMODL / IJN: [id number] /
--- NOTE | 2017-08-11 11:51 | PN ---
PROGRESS NOTE DATE OF SERVICE: 08/11/2017 REASON FOR FOLLOWUP: Fever, likely infected pancreatic pseudocyst and plus-minus pneumonia. INTERVAL HISTORY: The patient overall feels better and has improved. No fever since yesterday afternoon. Patient is still complaining of abdominal pain, more of a dull aching pain 4 to 5/10 and no radiation. Patient denies having any vomiting. No diarrhea and breathing seemed to be baseline. He did have some cough and was able to provide a sputum sample. PHYSICAL EXAMINATION: Blood pressure 114/60 with a pulse of 109, temperature 98.6, he is 94% on 2 L nasal cannula. General description is a middle-aged male, up in the bed in no distress. RESPIRATORY SYSTEM: Unlabored breathing with decreased breath sounds at the base. No wheeze. HEART: S1, S2. Regular rate and rhythm. ABDOMEN: Soft, no tenderness. LABS: Hemoglobin is 10.4, white count of 12.2 with a BUN of 7, creatinine 0.68. Blood culture so far negative. DIAGNOSTIC IMPRESSION AND PLAN: Patient with a fever. The patient admitted to the hospital with abdominal pain. The patient did have chronic pancreatic pseudocyst that has been drained previously at [facility], now with size of the fluid is the same on the recent CT. However, some inflammatory changes were noticed with concern for possible infected pseudocyst. The patient also have evidence of a right-sided pleural effusion, questionably symptomatic to the abdominal process versus related to pneumonia. The patient did have some cough. At this point, currently covered with broad spectrum antibiotic in the form of meropenem and vancomycin. That will be continued. Will try to obtain his cultures to narrow his antibiotic. However, family is planning on possible transfer to tertiary care which may be appropriate for him, keeping in mind his complicated course. All their questions were answered. MMODL / IJN: [id number] / PINA
--- NOTE | 2017-08-11 12:46 | P.PN ---
Subjective Progress Note Date: 08/11/17 Principal diagnosis: Right-sided loculated pleural effusion, likely a parapneumonic effusion possibly related to hospital-acquired pneumonia versus aspiration pneumonia, acute hypoxic respiratory failure, episodic fever, chronic pancreatitis with formation of pancreatic pseudocysts, status post EGD Juan is a 42-year-old white male patient of Dr. Bandar Camacho who presented to the emergency department on 08/09/2017 at 1438 with complaints of diffuse abdominal pain across the left upper quadrant, fever. Denied any nausea, denied any vomiting, or diarrhea or abdominal distention. Reports poor oral intake. Patient was recently hospitalized for chronic pancreatitis and underwent recent laparoscopic cholecystectomy for acute cholelithiasis on 2017 Dr. Hicks and discharged home on 07/26/2017 on oral antibiotics which the patient has completed. Patient was treated for pancreatitis, and a pancreatic pseudocyst and cholelithiasis. He was seen in the follow-up and an office visit a week ago and was feeling well at that time. The plan was to have an EGD with possible drainage of the pancreatic pseudocyst. 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 CT of abdomen and pelvis with contrast revealed previously seen large cystic mass in the anterior body of the pancreas, with mildly inflamed upper anterior margin, and a new right pleural effusion compared to the prior study. Patient was febrile, with a temp of 101.4F presentation and has been intermittently febrile during this admission. Hemodynamically stable. Tachycardic with a heart rate up to 110 BPM, and tachypneic at times. Lab work on admission showed WBC of 14.5, hemoglobin of 12.1, electrolytes were within normal limits, renal profile was within normal limits, alkaline phosphatase was 207, malaise was 145 which is down from 152 upon discharge on 07/20/2017, lipase was 391. Upon his were negative 3. Urinalysis showed 2+ protein, 1+ nitrites. Patient was given 2 L of IV fluid boluses of 0.9 normal saline in the emergency room, and his maintenance IV fluids were started at 120 ML per hour. Patient was started on Zosyn for antibiotic coverage, he was given IV Toradol and morphine pain control. Patient was seen by general surgery and had an EGD on 08/10/2017, and was found to have mild antral gastritis. There was no visualization of the pancreatic pseudocyst during the procedure. The distal and the proximal esophagus appeared normal. He was then transferred to a regular medical surgical room in stable condition. Patient continued to be intermittently febrile, slightly dyspneic, but in no respiratory distress. Blood cultures were collected and sent, patient was given an additional 1 L of 0.9 normal saline IV bolus, her a total of 3 L of IV 0.9 bolus. Infectious disease service consult was initiated who recommended to continue with Zosyn at this time for antibiotic coverage. Lactic acid was within normal at 1.9. Today's blood work shows WBC of 13.3, hemoglobin of 10.9, INR 1.3, electrolytes and renal profile remained within normal limits. Patient was seen sitting up on the edge of the bed, denying any acute distress. Denied any chest pain, denied any acute dyspnea. Slightly pale and diaphoretic, receiving IV bolus of 0.9 normal saline. Some left upper abdominal tenderness, but abdomen is soft. Chest x-ray was obtained and showed right lower lobe pneumonia versus atelectasis and possible associated effusion. S1 is followed by CT chest without contrast which showed moderately large partially loculated right-sided pleural effusion, areas of compressive atelectasis, or infiltrate. Remote granulomatous changes. Patient is currently on 2 L per nasal cannula with O2 sat 95%, most recent vitals include a temperature of 98.1F, heart rate of 100 bpm, respiratory rate of 18, and blood pressure 119/64. On 08/11/2017 patient is seen in follow-up. He is resting in bed, mildly dyspneic, but in no acute distress. He is diaphoretic, does have some mild chest discomfort on deep inspiration over right posterior chest, lung sounds are diminished over right posterior lobe, and there are bibasilar crackles present. ID service has changed the patient's antibiotics from Zosyn to meropenem, yesterday we added vancomycin. Last fever was on 08/10/2017 at 1444 with a temp of 100.5F, no fevers overnight. Patient is hemodynamically stable , he was fluid resuscitated with 3 L of 0.9 normal saline fluid boluses, and his current IV is 0.9 normal saline at a rate of 120 ML per hour. His abdomen remains diffusely tender over upper bilateral quadrants, as well as the mid abdomen., Denies any nausea vomiting or diarrhea. He is receiving IV morphine pain control. Today's lab work was reviewed, WBC is 12.2, hemoglobin is 10.4, electrolytes within normal limits, BUN is 7, creatinine is 0.68, asthma lactic acid was within normal limits at 1.9, he is voiding. Continue current antibiotic coverage, we will potentially consult with interventional radiology in regards to drainage of his right-sided loculated pleural effusion, which is suspected to be parapneumonic in nature. Objective - Vital Signs Vital signs: Vital Signs Temp 98.6 F 08/11/17 06:00 Pulse 109 H 08/11/17 06:00 Resp 16 08/11/17 06:00 BP 114/60 08/11/17 06:00 Pulse Ox 94 L 08/11/17 06:00 Intake & Output 08/10/17 08/11/17 08/11/17 18:59 06:59 18:59 Intake Total 100 500 Output Total 450 450 Balance -350 50 Weight 113.398 kg Intake: IV 100 Intake, IV Titration 500 Amount Vancomycin 2,000 mg In 500 Sodium Chloride 0.9% 500 ml @ 167 mls/hr IVPB Q8H [facility] Rx#:[id number] Output: Urine 450 450 Other: Voiding Method Urinal Urinal # Voids 2 1 - Exam GENERAL EXAM: Alert, pleasant, 42-year-old white male patient, diaphoretic, reporting some diffuse abdominal cramping, over bilateral upper quadrants, and mid abdomen, resting in bed, does not appear to be in acute distress HEAD: Normocephalic/atraumatic. EYES: Normal reaction of pupils, equal size. Conjunctiva pink, sclera white. NOSE: Clear with pink turbinates. THROAT: No erythema or exudates. NECK: No masses, no JVD, no thyroid enlargement, no adenopathy. CHEST: No chest wall deformity. Symmetrical expansion. LUNGS: Diminished breath sounds over right lower lobe, with bibasilar crackles and scattered wheezes CVS: Regular rate and rhythm, normal S1 and S2, no gallops, no murmurs, no rubs ABDOMEN: Soft, nontender. No hepatosplenomegaly, normal bowel sounds, no guarding or rigidity. EXTREMITIES: No clubbing, no edema, no cyanosis, 2+ pulses and upper and lower extremities. MUSCULOSKELETAL: Muscle strength and tone normal. SPINE: No scoliosis or deformity SKIN: No rashes CENTRAL NERVOUS SYSTEM: Alert and oriented -3. No focal deficits, tone is normal in all 4 extremities. PSYCHIATRIC: Alert and oriented -3. Appropriate affect. Intact judgment and insight. - Labs CBC & Chem 7: 08/11/17 08:06 08/11/17 08:06 Labs: Abnormal Lab Results - Last 24 Hours (Table) 08/10/17 08/10/17 08/10/17 Range/Units 12:10 15:27 15:47 WBC 13.3 H (3.8-10.6) k/uL RBC 3.93 L (4.30-5.90) m/uL Hgb 10.9 L (13.0-17.5) gm/dL Hct 34.4 L (39.0-53.0) % Neutrophils # 10.2 H (1.3-7.7) k/uL Monocytes # (0-1.0) k/uL PT (9.0-12.0) sec INR (<1.2) BUN (9-20) mg/dL Glucose (74-99) mg/dL POC Glucose (mg/dL) 163 H (75-99) mg/dL Calcium (8.4-10.2) mg/dL Alkaline Phosphatase (38-126) U/L Total Creatine Kinase 32 L (55-170) U/L Total Protein (6.3-8.2) g/dL Albumin (3.5-5.0) g/dL 08/10/17 08/10/17 08/11/17 Range/Units 15:47 15:47 08:06 WBC 12.2 H (3.8-10.6) k/uL RBC 3.79 L (4.30-5.90) m/uL Hgb 10.4 L (13.0-17.5) gm/dL Hct 33.3 L (39.0-53.0) % Neutrophils # 8.8 H (1.3-7.7) k/uL Monocytes # 1.3 H (0-1.0) k/uL PT 12.5 H (9.0-12.0) sec INR 1.3 H (<1.2) BUN (9-20) mg/dL Glucose 162 H (74-99) mg/dL POC Glucose (mg/dL) (75-99) mg/dL Calcium 8.0 L (8.4-10.2) mg/dL Alkaline Phosphatase 163 H (38-126) U/L Total Creatine Kinase (55-170) U/L Total Protein 5.2 L (6.3-8.2) g/dL Albumin 2.7 L (3.5-5.0) g/dL 08/11/17 Range/Units 08:06 WBC (3.8-10.6) k/uL RBC (4.30-5.90) m/uL Hgb (13.0-17.5) gm/dL Hct (39.0-53.0) % Neutrophils # (1.3-7.7) k/uL Monocytes # (0-1.0) k/uL PT (9.0-12.0) sec INR (<1.2) BUN 7 L (9-20) mg/dL Glucose 115 H (74-99) mg/dL POC Glucose (mg/dL) (75-99) mg/dL Calcium 7.9 L (8.4-10.2) mg/dL Alkaline Phosphatase 164 H (38-126) U/L Total Creatine Kinase (55-170) U/L Total Protein 5.4 L (6.3-8.2) g/dL Albumin 2.7 L (3.5-5.0) g/dL Microbiology - Last 24 Hours (Table) 08/11/17 09:00 Sputum Culture - Preliminary Sputum 08/09/17 17:00 Blood Culture - Preliminary Blood No Growth after 24 hours Assessment and Plan Plan: Assessment 1. Right-sided pleural effusion, loculated, likely a parapneumonic effusion related to possibly hospital-acquired pneumonia versus aspiration pneumonia. The patient had a right pleural effusion on admission and subsequent CAT scan of the chest that was obtained today showed further increase in the size of the effusion along with development of loculation. 2 acute hypoxic respiratory failure secondary to above 3 episodic fever, multifactorial. Could be related to underlying lung infection versus pancreatitis. Infected pancreatic pseudocys felt to be less likely. 4 chronic pancreatitis with formation of pancreatic pseudocyst, status post EGD 5 status post endoscopic cholecystectomy performed on 07/21/2017 6 hepatitis C viral infection secondary to IV drug use 7 history of drug abuse 8 major depression to the mental health facility December 2016 9 Chronic cholelithiasis status post cholecystectomy Current mild leukocytosis 11 anemia, mild, stable Plan Continue with current antibiotic coverage, meropenem and vancomycin, we will add nebulized treatments. Continue with IV fluids. Sputum and blood cultures are pending at this time, patient has been afebrile overnight. Does complain of some mild to moderate amount of right posterior chest wall discomfort, this could probably related to the right sided pneumonia, hospital-acquired versus aspiration pneumonia. We will speak with the radiologist to inquire about draining the right pleural effusion, which is suspected to be parapneumonic in nature. We'll continue to follow I performed a history & physical examination of the patient and discussed their management with my nurse practitioner, Claudia Lopes. I reviewed the nurse practitioner's note and agree with the documented findings and plan of care. Lung sounds are diminished over right lower base bibasilar crackles. The findings and the impression was discussed with the patient. I attest to the documentation by the nurse practitioner. Time with Patient: Less than 30
--- NOTE | 2017-08-11 13:38 | P.PN ---
Subjective Progress Note Date: 08/11/17 42-year-old seen resting in bed status post 10 of August EGD done for eval pancreatic pseudocyst postop diagnosis findings mild antral gastritis. Operative report indicated biopsies were performed there was no visualization of the pancreas pseudocysts pushing on the stomach. Distal and proximal esophagus appeared normal. Patient states pain medication effective for pain control. . On admission febrile leukocytosis tachycardic meeting SIRS criteria for sepsis felt to be multifactorial right-sided pleural effusion loculated likely a parapneumonic effusion related to hospital acquired pneumonia or aspiration pneumonia. Patients being followed by pulmonary , infectious disease and medicine service Patient underwent a recent laparoscopic cholecystectomy 07/21/2017. Patient has known pancreatic pseudocyst Objective - Vital Signs Vital signs: Vital Signs Temp 98.6 F 08/11/17 06:00 Pulse 109 H 08/11/17 06:00 Resp 16 08/11/17 06:00 BP 114/60 08/11/17 06:00 Pulse Ox 94 L 08/11/17 06:00 Intake & Output 08/10/17 08/11/17 08/11/17 18:59 06:59 18:59 Intake Total 100 500 Output Total 450 450 Balance -350 50 Weight 113.398 kg Intake: IV 100 Intake, IV Titration 500 Amount Vancomycin 2,000 mg In 500 Sodium Chloride 0.9% 500 ml @ 167 mls/hr IVPB Q8H [facility] Rx#:[id number] Output: Urine 450 450 Other: Voiding Method Urinal Urinal # Voids 2 1 - Exam Physical exam 42-year-old male resting in bed appears in no acute distress Lungs posterior right lower lobe diminished no wheezing noted no crackles noted no cough noted no shortness of breath Heart S1-S2 audible regular Abdomen soft nontender surgical incision sites dry states bowel movement this morning urinating no difficulty tolerating diet no nausea no vomiting Extremities no edema - Labs CBC & Chem 7: 08/11/17 08:06 08/11/17 08:06 Labs: Abnormal Lab Results - Last 24 Hours (Table) 08/10/17 08/10/17 08/10/17 Range/Units 15:27 15:47 15:47 WBC 13.3 H (3.8-10.6) k/uL RBC 3.93 L (4.30-5.90) m/uL Hgb 10.9 L (13.0-17.5) gm/dL Hct 34.4 L (39.0-53.0) % Neutrophils # 10.2 H (1.3-7.7) k/uL Monocytes # (0-1.0) k/uL PT 12.5 H (9.0-12.0) sec INR 1.3 H (<1.2) BUN (9-20) mg/dL Glucose (74-99) mg/dL POC Glucose (mg/dL) 163 H (75-99) mg/dL Calcium (8.4-10.2) mg/dL Alkaline Phosphatase (38-126) U/L Total Protein (6.3-8.2) g/dL Albumin (3.5-5.0) g/dL 08/10/17 08/11/17 08/11/17 Range/Units 15:47 08:06 08:06 WBC 12.2 H (3.8-10.6) k/uL RBC 3.79 L (4.30-5.90) m/uL Hgb 10.4 L (13.0-17.5) gm/dL Hct 33.3 L (39.0-53.0) % Neutrophils # 8.8 H (1.3-7.7) k/uL Monocytes # 1.3 H (0-1.0) k/uL PT (9.0-12.0) sec INR (<1.2) BUN 7 L (9-20) mg/dL Glucose 162 H 115 H (74-99) mg/dL POC Glucose (mg/dL) (75-99) mg/dL Calcium 8.0 L 7.9 L (8.4-10.2) mg/dL Alkaline Phosphatase 163 H 164 H (38-126) U/L Total Protein 5.2 L 5.4 L (6.3-8.2) g/dL Albumin 2.7 L 2.7 L (3.5-5.0) g/dL Microbiology - Last 24 Hours (Table) 08/11/17 09:00 Sputum Culture - Preliminary Sputum 08/09/17 17:00 Blood Culture - Preliminary Blood No Growth after 24 hours Assessment and Plan Assessment: Impression Present on admission abdominal pain nausea suspect due to large pseudocyst as evident on a CAT scan of the abdomen pelvis CAT scan abdomen and pelvis report indicates large cystic mass in the anterior body of the pancreas similar in size to prior scan A recent laparoscopic cholecystectomy July 21 for acute cholelithiasis Major Depressive disorder treated in the mental health December 2016 Opiate use disorder in remission on Suboxone History of a recent ERCP 6 months prior [facility] Acute on chronic pancreatitis with a history of necrotizing pancreatitis treated at [facility] History of hepatitis C diagnosed and treated approximate 6 years ago IV drug abuse Prescription drug abuse opiates Current every day smoker Present on admission febrile leukocytosis tachycardia the sirs criteria sepsis likely multifactorial due to right sided pleural effusion loculated possible hospital-acquired pneumonia or aspiration pneumonia, pancreatic pseudocyst Plan Continue recommendations by pulmonary service possible interventional radiology to drain the right pleural effusion suspected to be parapneumonic in nature await decision Patient use incentive spirometer IV fluid for hydration Antibiotics per infectious disease Pain control DVT and GI prophylaxis Dictated for Dr. white The above impression and plan of care have been discussed and directed by signing physician. Ana Meredith nurse practitioner acting as scribe for signing physician.
[2017-08-11] MEDS: IPRATROPIUM-ALBUTEROL 3 ML NEB INHALATION SCH ×2 (13:50→20:21)
[2017-08-11] MEDS: MORPHINE ORAL SOLN 10 MG/5 ML CUP PO PRN ×3 (14:16→23:07)
--- NOTE | 2017-08-11 15:55 | XR ---
EXAMINATION TYPE: XR chest 1V portable DATE OF EXAM: 08/11/2017 Comparison: 08/10/2017 Clinical History: 42-year-old male with shortness of breath, post thoracentesis - right Findings: Right heart margin partially obscured by adjacent pleural parenchymal opacity. Density reaches up to the upper third aspect of the lung, this seems to be slightly increased from 08/10/2017. No appreciabl e pneumothorax. Left lung and pleural space are relatively clear. Impression: Continued right-sided pleural effusion with extensive consolidation/atelectasis extending up to the u pper third lung. This appears slightly increased from 08/10/2017. No appreciable pneumothorax.
[2017-08-11] MEDS: ACETAMINOPHEN TAB 325 MG TAB PO PRN (17:32)
[2017-08-11] MEDS: MIRTAZAPINE 15 MG TAB PO SCH (20:13)
[2017-08-11 20:34] LABS: Appearance,BF Bloody; Color,BF Orange; Nucleated Cells, Body Fluid 45 /uL
[2017-08-11 20:35] LABS: Mononuclear WBC,Body Fluid 66 %; Polynuclear WBC,Body Fluid 7 %
--- NOTE | 2017-08-11 23:06 | PN ---
PROGRESS NOTE SUBJECTIVE: A 42-year-old white male postop fever, pancreatitis, possible pneumonia. CT scan did not show pneumonia. Possible choledocholithiasis is present versus pancreatic pseudocyst infection. is being controlled. He remains afebrile in the last 24 hours. CARDIOVASCULAR: S1-S2. GI: Diffuse tenderness. HEMATOLOGY: Negative Homans. ASSESSMENT: Sepsis with pancreatic pseudocyst infection. Continue with current treatment. Remain on IV antibiotics. Continue current treatment. MMODL / IJN: [id number] /
[2017-08-12] MEDS: KETOROLAC 30 MG/ML 1 ML VIAL IVP PRN ×3 (01:35→18:37)
[2017-08-12] MEDS: MORPHINE ORAL SOLN 10 MG/5 ML CUP PO PRN ×4 (03:32→18:38)
[2017-08-12 03:37] LABS: Total Protein, Body Fluid 4350 mg/dL
[2017-08-12] MEDS: MEROPENEM 1 GM in SODIUM CHLORIDE 0.9% 100 ML IVPB SCH ×3 (05:44→21:53)
[2017-08-12] MEDS: SODIUM CHLORIDE 0.9% 1,000 ML IV SCH ×2 (05:44→08:29)
[2017-08-12] MEDS ORDERED: VANCOMYCIN TROUGH DUE 1 EACH MISC MISCELLANE ONE (07:00)
[2017-08-12] MEDS: IPRATROPIUM-ALBUTEROL 3 ML NEB INHALATION SCH ×3 (08:09→20:12)
[2017-08-12 08:29] LABS: Basophils % (A) 0 %; Eosinophils # (A) 0.3 k/uL (0-0.7); Eosinophils % (A) 3 %; HCT 32.2 % (39.0-53.0); HGB 9.8 gm/dL (13.0-17.5); Hypochromasia Marked; Lymphocytes # (A) 1.2 k/uL (1.0-4.8); Lymphocytes % (A) 12 %; MCH 27.2 pg (25.0-35.0); MCHC 30.4 g/dL (31.0-37.0); MCV 89.6 fL (80.0-100.0); Mean Platelet Volume 9.3; Monocytes % (A) 11 %; Neutrophils # (A) 6.7 k/uL (1.3-7.7); Neutrophils % (A) 72 %; Platelet Count 204 k/uL (150-450); RBC 3.59 m/uL (4.30-5.90); WBC 9.3 k/uL (3.8-10.6)
[2017-08-12] MEDS: VANCOMYCIN 2,000 MG in SODIUM CHLORIDE 0.9% 500 ML IVPB SCH ×2 (08:31→21:15)
[2017-08-12] MEDS: lamoTRIgine 100 MG TAB PO SCH ×2 (08:32→21:21)
[2017-08-12] MEDS: PANTOPRAZOLE 40 MG TABLET PO SCH (08:32)
[2017-08-12] MEDS: OLANZapine 5 MG TAB PO SCH (08:32)
[2017-08-12 08:43] LABS: Albumin 2.6 g/dL (3.5-5.0); Calcium 8.1 mg/dL (8.4-10.2); Potassium 3.9 mmol/L (3.5-5.1); Total Bilirubin 0.9 mg/dL (0.2-1.3)
--- NOTE | 2017-08-12 10:38 | US ---
EXAMINATION TYPE: US thoracentesis DATE OF EXAM: 08/11/2017 COMPARISON: Chest CT 08/10/2017 HISTORY: Pleural effusion. FINDINGS: Maximal barrier technique was utilized. The skin overlying a suitable pocket of fluid was localized and the overlying skin prepped and draped. Lidocaine was used for local anesthesia. Ultras ound was used with sterile technique. A 5 Khmer catheter over guide needle was advanced into the pl eural fluid collection using ultrasound guidance and the catheter advanced, needle removed. Approxim ately 60 mL of serous angriness fluid was removed. Catheter was withdrawn and hemostasis achieved. There is no immediate complication. The patient discharged in stable condition without complication. IMPRESSION: STATUS POST ULTRASOUND GUIDED THORACENTESIS, POST PROCEDURE CHEST X-RAY PENDING. THIS SD OCEDURE WAS PERFORMED BY THE UNDERSIGNED. Specimen sent for laboratory analysis.
--- NOTE | 2017-08-12 10:56 | P.PN ---
Subjective Progress Note Date: 08/12/17 42-year-old male seen and examined at the bedside. Status post thoracentesis done yesterday by interventional radiology 60 mL obtained cultures pending. Current temp is 98.7 did spike a temp of 101.2 at 4:00 yesterday evening currently documented room air sats 97% patient states breathing feels slightly improved. No cough noted no conversational dyspnea noted white count is 9.3 this morning reports less abdominal pain no nausea no vomiting patient being followed by pulmonary and infectious disease. Chest x-ray done yesterday report reviewed indicates no appreciable pneumothorax right-sided pleural effusion with extensive consolidation atelectasis extending up to the upper right lung Objective - Vital Signs Vital signs: Vital Signs Temp 98.7 F 08/12/17 07:00 Pulse 88 08/12/17 08:22 Resp 18 08/12/17 07:00 BP 99/63 08/12/17 07:00 Pulse Ox 97 08/12/17 07:00 Intake & Output 08/11/17 08/12/17 08/12/17 18:59 06:59 18:59 Intake Total 2160 Output Total 900 Balance 1260 Weight 113.398 kg Intake: Intake, IV Titration 1800 Amount Meropenem 1 gm In Sodium 100 Chloride 0.9% 100 ml @ 200 mls/hr IVPB Q8H VINAYAK Rx#:[id number] Sodium Chloride 0.9% 1, 700 000 ml @ 120 mls/hr IV . Q8H20M VINAYAK Rx#:[id number] Vancomycin 2,000 mg In 1000 Sodium Chloride 0.9% 500 ml @ 167 mls/hr IVPB Q8H VINAYAK Rx#:[id number] Oral 360 Output: Urine 900 Other: Voiding Method Toilet Toilet Urinal # Voids 1 - Exam Physical exam 42-year-old male resting in bed states less abdominal discomfort and breathing feels slightly improved Lungs posterior right lower lobe diminished otherwise adequate air movement no wheezing noted no cough noted no conversational dyspnea noted Heart S1-S2 audible regular denying chest pain Abdomen surgical incision sites remained dry. Urinating no difficulty. Tolerating diet no nausea vomiting. Soft not distended nontender Extremities no edema - Labs CBC & Chem 7: 08/12/17 07:52 08/12/17 07:52 Labs: Abnormal Lab Results - Last 24 Hours (Table) 08/11/17 08/12/17 08/12/17 Range/Units 16:28 07:52 07:52 RBC 3.59 L (4.30-5.90) m/uL Hgb 9.8 L (13.0-17.5) gm/dL Hct 32.2 L (39.0-53.0) % MCHC 30.4 L (31.0-37.0) g/dL Chloride (98-107) mmol/L Glucose (74-99) mg/dL Calcium (8.4-10.2) mg/dL Alkaline Phosphatase (38-126) U/L Lactate Dehydrogenase 296 L (313-618) U/L Total Protein 5.0 L (6.3-8.2) g/dL Albumin (3.5-5.0) g/dL Vancomycin Trough 32.2 H* ug/mL 08/12/17 Range/Units 07:52 RBC (4.30-5.90) m/uL Hgb (13.0-17.5) gm/dL Hct (39.0-53.0) % MCHC (31.0-37.0) g/dL Chloride 108 H (98-107) mmol/L Glucose 125 H (74-99) mg/dL Calcium 8.1 L (8.4-10.2) mg/dL Alkaline Phosphatase 172 H (38-126) U/L Lactate Dehydrogenase (313-618) U/L Total Protein 5.0 L (6.3-8.2) g/dL Albumin 2.6 L (3.5-5.0) g/dL Vancomycin Trough ug/mL Microbiology - Last 24 Hours (Table) 08/11/17 09:00 Gram Stain - Preliminary Sputum Sputum Culture - Preliminary 08/11/17 15:20 Gram Stain - Preliminary Pleural Fluid Body Fluid Culture - Preliminary 08/11/17 15:20 Anaerobic Culture - Preliminary Pleural Fluid 08/09/17 17:00 Blood Culture - Preliminary Blood No Growth after 48 hours 08/10/17 15:06 Blood Culture - Preliminary Blood No Growth after 24 hours Assessment and Plan Assessment: Impression Present on admission abdominal pain nausea suspect due to large pseudocyst as evident on a CAT scan of the abdomen pelvis CAT scan abdomen and pelvis report indicates large cystic mass in the anterior body of the pancreas similar in size to prior scan A recent laparoscopic cholecystectomy July 21 for acute cholelithiasis Major Depressive disorder treated in the mental health December 2016 Opiate use disorder in remission on Suboxone History of a recent ERCP 6 months prior [facility] Acute on chronic pancreatitis with a history of necrotizing pancreatitis treated at [facility] History of hepatitis C diagnosed and treated approximate 6 years ago IV drug abuse Prescription drug abuse opiates Current every day smoker Present on admission febrile leukocytosis tachycardia sepsis likely multifactorial due to right sided pleural effusion loculated possible hospital- acquired pneumonia or aspiration pneumonia, pancreatic pseudocyst Status post right thoracentesis 11 of August with 60 mL obtain done for right pleural effusion Plan Continue clear liquid diet pseudocyst of the pancreas will be addressed once patient's pulmonary issues resolved likely follow-up outpatient visit to discuss the timing of treatment Patient use incentive spirometer IV fluid for hydration Antibiotics per infectious disease Pain control attempt to titrate down the frequency of the morphine defer to the attending DVT and GI prophylaxis Respiratory treatments as ordered Encourage ambulation Dictated for Dr. white The above impression and plan of care have been discussed and directed by signing physician. Ana Meredith nurse practitioner acting as scribe for signing physician.
[2017-08-12 11:08] LABS: Amylase 98 U/L (30-110); Lipase 137 U/L (23-300)
--- NOTE | 2017-08-12 11:25 | XR ---
EXAMINATION TYPE: XR chest 2V DATE OF EXAM: 08/12/2017 COMPARISON: Prior chest 08/11/2017 HISTORY: Right lower lobe pneumonia TECHNIQUE: Frontal and lateral views of the chest are obtained. FINDINGS: Findings are similar. IMPRESSION: Findings compatible with right lower lobe pneumonia and parapneumonic effusion. Follow-u p recommended.
--- NOTE | 2017-08-12 13:47 | P.PN ---
Subjective Progress Note Date: 08/12/17 Principal diagnosis: Right-sided loculated pleural effusion, likely a parapneumonic effusion secondary to hospital-acquired pneumonia versus aspiration pneumoniaVale Martinez is a 42-year-old white male patient of Dr. Bandar Camacho who presented to the emergency department on 08/09/2017 at 1438 with complaints of diffuse abdominal pain across the left upper quadrant, fever. Denied any nausea, denied any vomiting, or diarrhea or abdominal distention. Reports poor oral intake. Patient was recently hospitalized for chronic pancreatitis and underwent recent laparoscopic cholecystectomy for acute cholelithiasis on 2017 Dr. Hicks and discharged home on 07/26/2017 on oral antibiotics which the patient has completed. Patient was treated for pancreatitis, and a pancreatic pseudocyst and cholelithiasis. He was seen in the follow-up and an office visit a week ago and was feeling well at that time. The plan was to have an EGD with possible drainage of the pancreatic pseudocyst. 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 CT of abdomen and pelvis with contrast revealed previously seen large cystic mass in the anterior body of the pancreas, with mildly inflamed upper anterior margin, and a new right pleural effusion compared to the prior study. Patient was febrile, with a temp of 101.4F presentation and has been intermittently febrile during this admission. Hemodynamically stable. Tachycardic with a heart rate up to 110 BPM, and tachypneic at times. Lab work on admission showed WBC of 14.5, hemoglobin of 12.1, electrolytes were within normal limits, renal profile was within normal limits, alkaline phosphatase was 207, malaise was 145 which is down from 152 upon discharge on 07/20/2017, lipase was 391. Upon his were negative 3. Urinalysis showed 2+ protein, 1+ nitrites. Patient was given 2 L of IV fluid boluses of 0.9 normal saline in the emergency room, and his maintenance IV fluids were started at 120 ML per hour. Patient was started on Zosyn for antibiotic coverage, he was given IV Toradol and morphine pain control. Patient was seen by general surgery and had an EGD on 08/10/2017, and was found to have mild antral gastritis. There was no visualization of the pancreatic pseudocyst during the procedure. The distal and the proximal esophagus appeared normal. He was then transferred to a regular medical surgical room in stable condition. Patient continued to be intermittently febrile, slightly dyspneic, but in no respiratory distress. Blood cultures were collected and sent, patient was given an additional 1 L of 0.9 normal saline IV bolus, her a total of 3 L of IV 0.9 bolus. Infectious disease service consult was initiated who recommended to continue with Zosyn at this time for antibiotic coverage. Lactic acid was within normal at 1.9. Today's blood work shows WBC of 13.3, hemoglobin of 10.9, INR 1.3, electrolytes and renal profile remained within normal limits. Patient was seen sitting up on the edge of the bed, denying any acute distress. Denied any chest pain, denied any acute dyspnea. Slightly pale and diaphoretic, receiving IV bolus of 0.9 normal saline. Some left upper abdominal tenderness, but abdomen is soft. Chest x-ray was obtained and showed right lower lobe pneumonia versus atelectasis and possible associated effusion. S1 is followed by CT chest without contrast which showed moderately large partially loculated right-sided pleural effusion, areas of compressive atelectasis, or infiltrate. Remote granulomatous changes. Patient is currently on 2 L per nasal cannula with O2 sat 95%, most recent vitals include a temperature of 98.1F, heart rate of 100 bpm, respiratory rate of 18, and blood pressure 119/64. On 08/11/2017 patient is seen in follow-up. He is resting in bed, mildly dyspneic, but in no acute distress. He is diaphoretic, does have some mild chest discomfort on deep inspiration over right posterior chest, lung sounds are diminished over right posterior lobe, and there are bibasilar crackles present. ID service has changed the patient's antibiotics from Zosyn to meropenem, yesterday we added vancomycin. Last fever was on 08/10/2017 at 1444 with a temp of 100.5F, no fevers overnight. Patient is hemodynamically stable , he was fluid resuscitated with 3 L of 0.9 normal saline fluid boluses, and his current IV is 0.9 normal saline at a rate of 120 ML per hour. His abdomen remains diffusely tender over upper bilateral quadrants, as well as the mid abdomen., Denies any nausea vomiting or diarrhea. He is receiving IV morphine pain control. Today's lab work was reviewed, WBC is 12.2, hemoglobin is 10.4, electrolytes within normal limits, BUN is 7, creatinine is 0.68, asthma lactic acid was within normal limits at 1.9, he is voiding. Continue current antibiotic coverage, we will potentially consult with interventional radiology in regards to drainage of his right-sided loculated pleural effusion, which is suspected to be parapneumonic in nature. The patient is seen again today 08/12/2017 in follow-up on the regular medical floor. He is awake and alert. He remains somewhat diaphoretic. Quite dyspneic on minimal exertion. He is maintaining O2 saturations in the low 90s when checked on room air. He's been up and bleeding in the room. He did undergo a ultrasound guided thoracentesis for diagnosis yesterday by IR. Cultures are pending. The fluid was bloody with total protein 4.3 and an LDH of 901. White count today 9.3. Hemoglobin 9.8. Creatinine 1.18. He remains covered with vancomycin and meropenem. Objective - Vital Signs Vital signs: Vital Signs Temp 98.7 F 08/12/17 07:00 Pulse 88 08/12/17 08:22 Resp 18 08/12/17 07:00 BP 99/63 08/12/17 07:00 Pulse Ox 97 08/12/17 07:00 Intake & Output 08/11/17 08/12/17 08/12/17 18:59 06:59 18:59 Intake Total 2160 Output Total 900 Balance 1260 Weight 113.398 kg 113.398 kg Intake: Intake, IV Titration 1800 Amount Meropenem 1 gm In Sodium 100 Chloride 0.9% 100 ml @ 200 mls/hr IVPB Q8H VINAYAK Rx#:[id number] Sodium Chloride 0.9% 1, 700 000 ml @ 120 mls/hr IV . Q8H20M VINAYKA Rx#:[id number] Vancomycin 2,000 mg In 1000 Sodium Chloride 0.9% 500 ml @ 167 mls/hr IVPB Q8H VINAYAK Rx#:[id number] Oral 360 Output: Urine 900 Other: Voiding Method Toilet Toilet Toilet Urinal # Voids 1 - Exam GENERAL EXAM: Alert, pleasant, 42-year-old white male patient, diaphoretic, reporting some diffuse abdominal cramping, over bilateral upper quadrants, and mid abdomen, resting in bed, does not appear to be in acute distress HEAD: Normocephalic/atraumatic. EYES: Normal reaction of pupils, equal size. Conjunctiva pink, sclera white. NOSE: Clear with pink turbinates. THROAT: No erythema or exudates. NECK: No masses, no JVD, no thyroid enlargement, no adenopathy. CHEST: No chest wall deformity. Symmetrical expansion. LUNGS: Diminished breath sounds over right lower lobe, with bibasilar crackles and scattered wheezes CVS: Regular rate and rhythm, normal S1 and S2, no gallops, no murmurs, no rubs ABDOMEN: Soft, nontender. No hepatosplenomegaly, normal bowel sounds, no guarding or rigidity. EXTREMITIES: No clubbing, no edema, no cyanosis, 2+ pulses and upper and lower extremities. MUSCULOSKELETAL: Muscle strength and tone normal. SPINE: No scoliosis or deformity SKIN: No rashes CENTRAL NERVOUS SYSTEM: Alert and oriented -3. No focal deficits, tone is normal in all 4 extremities. PSYCHIATRIC: Alert and oriented -3. Appropriate affect. Intact judgment and insight. - Labs CBC & Chem 7: 08/12/17 07:52 08/12/17 07:52 Labs: Abnormal Lab Results - Last 24 Hours (Table) 08/11/17 08/12/17 08/12/17 Range/Units 16:28 07:52 07:52 RBC 3.59 L (4.30-5.90) m/uL Hgb 9.8 L (13.0-17.5) gm/dL Hct 32.2 L (39.0-53.0) % MCHC 30.4 L (31.0-37.0) g/dL Chloride (98-107) mmol/L Glucose (74-99) mg/dL Calcium (8.4-10.2) mg/dL Alkaline Phosphatase (38-126) U/L Lactate Dehydrogenase 296 L (313-618) U/L Total Protein 5.0 L (6.3-8.2) g/dL Albumin (3.5-5.0) g/dL Vancomycin Trough 32.2 H* ug/mL 08/12/17 Range/Units 07:52 RBC (4.30-5.90) m/uL Hgb (13.0-17.5) gm/dL Hct (39.0-53.0) % MCHC (31.0-37.0) g/dL Chloride 108 H (98-107) mmol/L Glucose 125 H (74-99) mg/dL Calcium 8.1 L (8.4-10.2) mg/dL Alkaline Phosphatase 172 H (38-126) U/L Lactate Dehydrogenase (313-618) U/L Total Protein 5.0 L (6.3-8.2) g/dL Albumin 2.6 L (3.5-5.0) g/dL Vancomycin Trough ug/mL Microbiology - Last 24 Hours (Table) 08/11/17 09:00 Gram Stain - Preliminary Sputum Sputum Culture - Preliminary Fidelia albicans Yeast species 08/11/17 15:20 Gram Stain - Preliminary Pleural Fluid Body Fluid Culture - Preliminary 08/11/17 15:20 Anaerobic Culture - Preliminary Pleural Fluid 08/09/17 17:00 Blood Culture - Preliminary Blood No Growth after 48 hours 08/10/17 15:06 Blood Culture - Preliminary Blood No Growth after 24 hours Assessment and Plan Assessment: Assessment 1. Right-sided pleural effusion, loculated, likely a parapneumonic effusion related to possibly hospital-acquired pneumonia versus aspiration pneumonia. The patient had a right pleural effusion on admission and subsequent CAT scan of the chest that was obtained today showed further increase in the size of the effusion along with development of loculation. 2 acute hypoxic respiratory failure secondary to above 3 episodic fever, multifactorial. Could be related to underlying lung infection versus pancreatitis. Infected pancreatic pseudocys felt to be less likely. 4 chronic pancreatitis with formation of pancreatic pseudocyst, status post EGD 5 status post endoscopic cholecystectomy performed on 07/21/2017 6 hepatitis C viral infection secondary to IV drug use 7 history of drug abuse 8 major depression to the mental health facility December 2016 9 Chronic cholelithiasis status post cholecystectomy Current mild leukocytosis 11 anemia, mild, stable Plan: The patient was seen and evaluated by Dr. Washington. He is still having ongoing issues with shortness of breath, cough and congestion. We'll continue with his current medications for now. We'll await for results of the thoracentesis. We will increase his activity as tolerated. We'll continue to follow make further recommendations based on his clinical status. I, the cosigning physician, performed a history & physical examination of the patient. Lungs sounds have bilateral end expiratory wheeze. Few scattered rhonchi.. Maintaining good O2 saturations in the 90s on room air. I discussed the assessment and plan of care with my nurse practitioner, Carmen Caldera. I attest to the above note as dictated by her.
[2017-08-12 14:32] LABS: RBC, Body Fluid 40000 /uL
--- NOTE | 2017-08-12 15:16 | PN ---
PROGRESS NOTE DATE OF SERVICE: 08/12/2017. REASON FOR FOLLOWUP: Fever and a question of infected pancreatic pseudocyst versus pneumonia. INTERVAL HISTORY: The patient is afebrile. He seemed to be breathing slightly comfortably. He did have a complaint of some yellow sputum and sputum sample has been provided. No chest pain. Has abdominal pain that is currently controlled with pain medication. Denies any nausea, vomiting and no diarrhea. EXAMINATION: Blood pressure 113/58 with a pulse of 101, temperature 98.7. He is 97% on room air. General description is a middle-aged male lying in bed in no distress. RESPIRATORY SYSTEM: Unlabored breathing with decreased breath sounds in the bases. No wheeze. HEART: S1, S2. Regular rate and rhythm and rhythm. ABDOMEN: Soft, mildly distended. No guarding rigidity. EXTREMITIES: No edema of feet. LABS: Hemoglobin is 9.8, white count 9.3 with a BUN of 9, creatinine 1.18. Vancomycin trough to be on the high side. Pleural fluid culture currently pending. Sputum so far Fidelia albicans. DIAGNOSTIC IMPRESSION AND PLAN: Patient with fever, abdominal pain and the patient does have underlying pancreatic pseudocyst. Concern for possible infected pseudocyst with attempted drainage through the ET that was unsuccessful. Recommend either CT-guided drainage or a transfer to tertiary care for drainage of this infected fluid and should be sent for culture and adjust antibiotic based on those reports. Currently on meropenem and Vanco. Vanco dose will be cut back to keep the goal around 15. Monitor his kidney function closely. Overall prognosis remains to be guarded. Continue supportive care. MMODL / IJN: [id number] /
[2017-08-12] MEDS: MIRTAZAPINE 15 MG TAB PO SCH (21:21)
--- NOTE | 2017-08-12 23:49 | PN ---
PROGRESS NOTE SUBJECTIVE: This is a 42-year-old white male, postop fever, pancreatitis, pancreatic pseudocyst that need to be resolved from pulmonary effusion in the fdc. He is too sick to go home. He is very low ambulation. He is short of breath. He is spiking fever. He has abdominal pain. Dr. Hicks will drain his pancreatic pseudocyst in 2 weeks. Await fdc placement tomorrow. Continue with current medical treatment. LUNGS: Scattered rhonchi, wheeze. CARDIOVASCULAR: S1, S2. Abdomen is distended, tender to palpation. PLAN: Continue with broad-spectrum antibiotics, pain control, updraft treatments. Please see further orders. MMODL / IJN: [id number] /
[2017-08-13] MEDS: MORPHINE ORAL SOLN 10 MG/5 ML CUP PO PRN ×6 (00:41→23:27)
[2017-08-13] MEDS: MEROPENEM 1 GM in SODIUM CHLORIDE 0.9% 100 ML IVPB SCH ×3 (06:19→21:02)
[2017-08-13] MEDS: SODIUM CHLORIDE 0.9% 1,000 ML IV SCH ×3 (06:19→15:43)
[2017-08-13] MEDS: IPRATROPIUM-ALBUTEROL 3 ML NEB INHALATION SCH ×3 (07:56→19:05)
[2017-08-13] MEDS: OLANZapine 5 MG TAB PO SCH (08:22)
[2017-08-13] MEDS: PANTOPRAZOLE 40 MG TABLET PO SCH (08:22)
[2017-08-13] MEDS: VANCOMYCIN 2,000 MG in SODIUM CHLORIDE 0.9% 500 ML IVPB SCH (08:22)
[2017-08-13] MEDS: lamoTRIgine 100 MG TAB PO SCH ×2 (08:22→21:01)
[2017-08-13 09:05] LABS: Basophils % (A) 0 %; Eosinophils # (A) 0.4 k/uL (0-0.7); Eosinophils % (A) 5 %; HCT 31.1 % (39.0-53.0); HGB 9.2 gm/dL (13.0-17.5); Hypochromasia Marked; Lymphocytes # (A) 1.4 k/uL (1.0-4.8); Lymphocytes % (A) 16 %; MCHC 29.7 g/dL (31.0-37.0); MCV 90.9 fL (80.0-100.0); Monocytes # (A) 0.7 k/uL (0-1.0); Monocytes % (A) 7 %; Neutrophils # (A) 5.9 k/uL (1.3-7.7); Neutrophils % (A) 68 %; Platelet Count 243 k/uL (150-450); RBC 3.42 m/uL (4.30-5.90); RDW 13.4 % (11.5-15.5); WBC 8.7 k/uL (3.8-10.6)
[2017-08-13 09:19] LABS: Potassium 3.5 mmol/L (3.5-5.1)
--- NOTE | 2017-08-13 11:31 | CT ---
EXAMINATION TYPE: CT chest wo con DATE OF EXAM: 08/13/2017 COMPARISON: 08/10/2017 HISTORY: Worsening symptoms CT DLP: 611.[address] of the chest was performed with lung and mediastinal window settings submitted. The la ck of contrast limits evaluation of the vascular, mediastinal and parenchymal structures including th e upper abdomen. LUNGS: Large right-sided pleural effusion increased from prior examination only a small amount of aer ated lung seen centrally. Portions of the pleural effusion are loculated. There is underlying atelect atic lung as well as a possible infiltrate. Air bronchograms are noted. Trace left-sided pleural effu chana with mild left basilar atelectasis. Evidence of remote granulomatous disease. MEDIASTINUM/TAMELA: Thoracic aorta is of normal caliber with limited evaluation given lack of contrast . The heart is enlarged. No evidence for mediastinal mass. No lymph nodes greater than 1cm. UPPER ABDOMEN: Inflammatory changes upper abdomen. Cystic mass in the lesser sac. Fatty liver. OTHER: No significant other abnormality. IMPRESSION: 1. Increasing right-sided pleural effusion, volume loss and underlying infiltrate. Portions of the p leural effusion are loculated.
--- NOTE | 2017-08-13 11:35 | P.PN ---
Subjective Progress Note Date: 08/13/17 42-year-old male seen and examined at the bedside sitting up on the edge of the bed. Nursing reports patient has had periods of confusion during the night. With encouragement can use the incentive spirometer can achieve 1000. No cough noted. Patient does report having left lower quadrant abdominal discomfort. Pulmonary at the bedside discuss plan of care with the patient and patient's mother at the bedside temp this morning 98.8 temp maxed 101.2 at 4:00 yesterday the white count is down to 8.7 this morning. Sats currently on 2 L are documented 96% on room air at rest 92% patient is status post guided thoracentesis by IR 60 obtained. patient being treated for right side loculated pleural effusion suspect to be parapneumonic in nature currently on IV antibiotics per infectious disease vancomycin and meropenem cultures pending Status post August 10 EGD mild antral gastritis Objective - Vital Signs Vital signs: Vital Signs Temp 98.8 F 08/13/17 06:55 Pulse 101 H 08/13/17 08:08 Resp 16 08/13/17 08:08 BP 106/60 08/13/17 06:55 Pulse Ox 96 08/13/17 07:57 Intake & Output 08/12/17 08/13/17 08/13/17 18:59 06:59 18:59 Intake Total 240 Balance 240 Weight 113.398 kg Intake: Oral 240 Other: Voiding Method Toilet Toilet Urinal # Voids 4 2 # Bowel Movements 1 - Exam Physical exam 42-year-old male sitting up in bed oriented 3 Lungs posterior right lower lobe diminished otherwise adequate air movement no wheezing noted no cough noted no conversational dyspnea noted continues the incentive spirometer achieving 500- 1000 needs encouragement no cough noted Heart S1-S2 audible regular denying chest pain Abdomen surgical incision sites remained dry. Slightly distended Tolerating diet no nausea vomiting. Soft not distended nontender Extremities no edema - Labs CBC & Chem 7: 08/13/17 08:39 08/13/17 08:39 Labs: Abnormal Lab Results - Last 24 Hours (Table) 08/13/17 08/13/17 Range/Units 08:39 08:39 RBC 3.42 L (4.30-5.90) m/uL Hgb 9.2 L (13.0-17.5) gm/dL Hct 31.1 L (39.0-53.0) % MCHC 29.7 L (31.0-37.0) g/dL Chloride 110 H (98-107) mmol/L Creatinine 1.58 H (0.66-1.25) mg/dL Glucose 117 H (74-99) mg/dL Calcium 8.0 L (8.4-10.2) mg/dL Microbiology - Last 24 Hours (Table) 08/11/17 09:00 Gram Stain - Final Sputum Sputum Culture - Final Fidelia albicans Fidelia glabrata 08/09/17 17:00 Blood Culture - Preliminary Blood No Growth after 72 hours 08/11/17 16:28 Blood Culture - Preliminary Blood No Growth after 24 hours 08/11/17 16:20 Blood Culture - Preliminary Blood No Growth after 24 hours 08/10/17 15:06 Blood Culture - Preliminary Blood No Growth after 48 hours 08/11/17 15:20 Gram Stain - Preliminary Pleural Fluid Body Fluid Culture - Preliminary Assessment and Plan Assessment: Impression Present on admission abdominal pain nausea suspect due to large pseudocyst as evident on a CAT scan of the abdomen pelvis CAT scan abdomen and pelvis report indicates large cystic mass in the anterior body of the pancreas similar in size to prior scan A recent laparoscopic cholecystectomy July 21 for acute cholelithiasis Major Depressive disorder treated in the mental health December 2016 Opiate use disorder in remission on Suboxone History of a recent ERCP 6 months prior [facility] Acute on chronic pancreatitis with a history of necrotizing pancreatitis treated at [facility] History of hepatitis C diagnosed and treated approximate 6 years ago IV drug abuse Prescription drug abuse opiates Current every day smoker Present on admission febrile leukocytosis tachycardia sepsis likely multifactorial due to right sided pleural effusion loculated possible hospital- acquired pneumonia or aspiration pneumonia, with a pancreatic pseudocyst Status post right thoracentesis 11 of August with 60 mL obtain done for right pleural effusion Status post EGD 10 of August mild antral gastritis Plan Computed tomography scan of the chest pending follow up on results Await further recommendations by pulmonary service after review the computed tomography scan chest Continue clear liquid diet pseudocyst of the pancreas will be addressed once patient's pulmonary issues resolved likely follow-up outpatient visit to discuss the timing of treatment Patient use incentive spirometer IV fluid for hydration Antibiotics per infectious disease Pain control attempt to titrate down the frequency of the morphine defer to the attending DVT and GI prophylaxis Respiratory treatments as ordered Encourage ambulation Dictated for Dr. white The above impression and plan of care have been discussed and directed by signing physician. Ana Meredith nurse practitioner acting as scribe for signing physician.
--- NOTE | 2017-08-13 14:05 | P.PN ---
Subjective Progress Note Date: 08/13/17 Principal diagnosis: Right-sided loculated pleural effusion, likely a parapneumonic effusion possibly related to hospital-acquired pneumonia versus aspiration pneumonia, acute hypoxic respiratory failure, episodic fever, chronic pancreatitis with formation of pancreatic pseudocysts, status post EGD Juan is a 42-year-old white male patient of Dr. Bandar Camacho who presented to the emergency department on 08/09/2017 at 1438 with complaints of diffuse abdominal pain across the left upper quadrant, fever. Denied any nausea, denied any vomiting, or diarrhea or abdominal distention. Reports poor oral intake. Patient was recently hospitalized for chronic pancreatitis and underwent recent laparoscopic cholecystectomy for acute cholelithiasis on 2017 Dr. Hicks and discharged home on 07/26/2017 on oral antibiotics which the patient has completed. Patient was treated for pancreatitis, and a pancreatic pseudocyst and cholelithiasis. He was seen in the follow-up and an office visit a week ago and was feeling well at that time. The plan was to have an EGD with possible drainage of the pancreatic pseudocyst. 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 CT of abdomen and pelvis with contrast revealed previously seen large cystic mass in the anterior body of the pancreas, with mildly inflamed upper anterior margin, and a new right pleural effusion compared to the prior study. Patient was febrile, with a temp of 101.4F presentation and has been intermittently febrile during this admission. Hemodynamically stable. Tachycardic with a heart rate up to 110 BPM, and tachypneic at times. Lab work on admission showed WBC of 14.5, hemoglobin of 12.1, electrolytes were within normal limits, renal profile was within normal limits, alkaline phosphatase was 207, malaise was 145 which is down from 152 upon discharge on 07/20/2017, lipase was 391. Upon his were negative 3. Urinalysis showed 2+ protein, 1+ nitrites. Patient was given 2 L of IV fluid boluses of 0.9 normal saline in the emergency room, and his maintenance IV fluids were started at 120 ML per hour. Patient was started on Zosyn for antibiotic coverage, he was given IV Toradol and morphine pain control. Patient was seen by general surgery and had an EGD on 08/10/2017, and was found to have mild antral gastritis. There was no visualization of the pancreatic pseudocyst during the procedure. The distal and the proximal esophagus appeared normal. He was then transferred to a regular medical surgical room in stable condition. Patient continued to be intermittently febrile, slightly dyspneic, but in no respiratory distress. Blood cultures were collected and sent, patient was given an additional 1 L of 0.9 normal saline IV bolus, her a total of 3 L of IV 0.9 bolus. Infectious disease service consult was initiated who recommended to continue with Zosyn at this time for antibiotic coverage. Lactic acid was within normal at 1.9. Today's blood work shows WBC of 13.3, hemoglobin of 10.9, INR 1.3, electrolytes and renal profile remained within normal limits. Patient was seen sitting up on the edge of the bed, denying any acute distress. Denied any chest pain, denied any acute dyspnea. Slightly pale and diaphoretic, receiving IV bolus of 0.9 normal saline. Some left upper abdominal tenderness, but abdomen is soft. Chest x-ray was obtained and showed right lower lobe pneumonia versus atelectasis and possible associated effusion. S1 is followed by CT chest without contrast which showed moderately large partially loculated right-sided pleural effusion, areas of compressive atelectasis, or infiltrate. Remote granulomatous changes. Patient is currently on 2 L per nasal cannula with O2 sat 95%, most recent vitals include a temperature of 98.1F, heart rate of 100 bpm, respiratory rate of 18, and blood pressure 119/64. On 08/11/2017 patient is seen in follow-up. He is resting in bed, mildly dyspneic, but in no acute distress. He is diaphoretic, does have some mild chest discomfort on deep inspiration over right posterior chest, lung sounds are diminished over right posterior lobe, and there are bibasilar crackles present. ID service has changed the patient's antibiotics from Zosyn to meropenem, yesterday we added vancomycin. Last fever was on 08/10/2017 at 1444 with a temp of 100.5F, no fevers overnight. Patient is hemodynamically stable , he was fluid resuscitated with 3 L of 0.9 normal saline fluid boluses, and his current IV is 0.9 normal saline at a rate of 120 ML per hour. His abdomen remains diffusely tender over upper bilateral quadrants, as well as the mid abdomen., Denies any nausea vomiting or diarrhea. He is receiving IV morphine pain control. Today's lab work was reviewed, WBC is 12.2, hemoglobin is 10.4, electrolytes within normal limits, BUN is 7, creatinine is 0.68, asthma lactic acid was within normal limits at 1.9, he is voiding. Continue current antibiotic coverage, we will potentially consult with interventional radiology in regards to drainage of his right-sided loculated pleural effusion, which is suspected to be parapneumonic in nature. The patient is seen again today 08/12/2017 in follow-up on the regular medical floor. He is awake and alert. He remains somewhat diaphoretic. Quite dyspneic on minimal exertion. He is maintaining O2 saturations in the low 90s when checked on room air. He's been up and bleeding in the room. He did undergo a ultrasound guided thoracentesis for diagnosis yesterday by IR. Cultures are pending. The fluid was bloody with total protein 4.3 and an LDH of 901. White count today 9.3. Hemoglobin 9.8. Creatinine 1.18. He remains covered with vancomycin and meropenem. On 08/13/2017 patient seen in follow-up. Today's chest x-ray shows increasing right-sided pleural effusion, volume loss and underlying infiltrate. Ultrasound guided right thoracentesis, on 08/11/2017 with drainage of 60 mL of pleural fluid. Urinalysis is consistent with exudative plural effusion secondary to pneumonia. We will obtain CT chest today to assess the loculation of the right pleural fluid. His abdominal pain is improving, although he still has persistent left-sided abdominal discomfort. Has been afebrile over the last 24 hours, and 2 L per nasal cannula O2 sat 96%. Hemodynamically stable. His amylase and lipase are now within normal limits. And accommodation of meropenem and vancomycin, pleural fluid culture is negative for any growth so far, will await the results of the final cultures, blood cultures are negative. Sputum cultures positive for Fidelia albicans and Fidelia glabrata, which is most likely contaminated by oral fortino. Surgery is following, and was discussed with the patient whether he would want to be transferred to a tertiary institution, patient's amylase and lipase are coming down, and his bone pain is improving. Objective - Vital Signs Vital signs: Vital Signs Temp 98.8 F 08/13/17 06:55 Pulse 100 08/13/17 13:32 Resp 16 08/13/17 13:32 BP 106/60 08/13/17 06:55 Pulse Ox 96 08/13/17 07:57 Intake & Output 08/12/17 08/13/17 08/13/17 18:59 06:59 18:59 Intake Total 240 Balance 240 Weight 113.398 kg Intake: Oral 240 Other: Voiding Method Toilet Toilet Urinal # Voids 4 2 # Bowel Movements 1 - Exam GENERAL EXAM: Alert, pleasant, 42-year-old white male patient, diaphoretic, reporting some diffuse abdominal cramping, over bilateral upper quadrants, and mid abdomen, resting in bed, does not appear to be in acute distress HEAD: Normocephalic/atraumatic. EYES: Normal reaction of pupils, equal size. Conjunctiva pink, sclera white. NOSE: Clear with pink turbinates. THROAT: No erythema or exudates. NECK: No masses, no JVD, no thyroid enlargement, no adenopathy. CHEST: No chest wall deformity. Symmetrical expansion. LUNGS: Diminished breath sounds over right lower lobe, with bibasilar crackles CVS: Regular rate and rhythm, normal S1 and S2, no gallops, no murmurs, no rubs ABDOMEN: Soft, nontender. No hepatosplenomegaly, normal bowel sounds, no guarding or rigidity. EXTREMITIES: No clubbing, no edema, no cyanosis, 2+ pulses and upper and lower extremities. MUSCULOSKELETAL: Muscle strength and tone normal. SPINE: No scoliosis or deformity SKIN: No rashes CENTRAL NERVOUS SYSTEM: Alert and oriented -3. No focal deficits, tone is normal in all 4 extremities. PSYCHIATRIC: Alert and oriented -3. Appropriate affect. Intact judgment and insight. - Labs CBC & Chem 7: 08/13/17 08:39 08/13/17 08:39 Labs: Abnormal Lab Results - Last 24 Hours (Table) 08/13/17 08/13/17 Range/Units 08:39 08:39 RBC 3.42 L (4.30-5.90) m/uL Hgb 9.2 L (13.0-17.5) gm/dL Hct 31.1 L (39.0-53.0) % MCHC 29.7 L (31.0-37.0) g/dL Chloride 110 H (98-107) mmol/L Creatinine 1.58 H (0.66-1.25) mg/dL Glucose 117 H (74-99) mg/dL Calcium 8.0 L (8.4-10.2) mg/dL Microbiology - Last 24 Hours (Table) 08/11/17 09:00 Gram Stain - Final Sputum Sputum Culture - Final Fidelia albicans Fidelia glabrata 08/09/17 17:00 Blood Culture - Preliminary Blood No Growth after 72 hours 08/11/17 16:28 Blood Culture - Preliminary Blood No Growth after 24 hours 08/11/17 16:20 Blood Culture - Preliminary Blood No Growth after 24 hours 08/10/17 15:06 Blood Culture - Preliminary Blood No Growth after 48 hours 08/11/17 15:20 Gram Stain - Preliminary Pleural Fluid Body Fluid Culture - Preliminary Assessment and Plan Plan: Assessment 1. Right-sided pleural effusion, loculated, likely a parapneumonic effusion related to possibly hospital-acquired pneumonia versus aspiration pneumonia. The patient had a right pleural effusion on admission and subsequent CAT scan of the chest that was obtained today showed further increase in the size of the effusion along with development of loculation. 2 acute hypoxic respiratory failure secondary to above 3 episodic fever, multifactorial. Could be related to underlying lung infection versus pancreatitis. Infected pancreatic pseudocyst felt to be less likely. 4 chronic pancreatitis with formation of pancreatic pseudocyst, status post EGD 5 status post endoscopic cholecystectomy performed on 07/21/2017 6 hepatitis C viral infection secondary to IV drug use 7 history of drug abuse 8 major depression to the mental health facility December 2016 9 Chronic cholelithiasis status post cholecystectomy 10 Current mild leukocytosis, resolved 11 anemia, mild, stable Plan: Obtain follow-up CT chest to characterize the right-sided loculated effusion. The fluid analysis shows exudative pleural effusion, likely parapneumonic in nature, secondary to hospital-acquired pneumonia. Consult cardiothoracic surgery in regards to possible VATS procedure. Continue current antibiotic coverage, meropenem and vancomycin, pleural fluid cultures are negative, will await the final culture results. Vitals are stable, patient is afebrile, is ambulating, is fairly comfortable at rest, we'll transfer the patient to selective care unit for closer monitoring. Will continue to follow. Case was discussed with radiology, and cardiothoracic surgery I performed a history & physical examination of the patient and discussed their management with my nurse practitioner, Claudia Lopes. I reviewed the nurse practitioner's note and agree with the documented findings and plan of care. Lung sounds are diminished over right lower base bibasilar crackles. The findings and the impression was discussed with the patient. I attest to the documentation by the nurse practitioner. Time with Patient: Less than 30
[2017-08-13] MEDS: ACETAMINOPHEN TAB 325 MG TAB PO PRN (14:22)
--- NOTE | 2017-08-13 15:29 | PN ---
PROGRESS NOTE SUBJECTIVE: 42-year-old white male with pancreatic pseudocyst, chronic abdominal pain, pleural effusion. Labs reviewed today. I want her to go to rehab center until we get this pancreatic cyst drained 2 weeks from now now. Pulse rate is 99-106, respiratory 16-18, O2 of 96% on 2 L. CARDIOVASCULAR: S1, S2. She has diffuse tenderness. PSYCH: Lethargic. Status post right-sided loculated pleural effusion. Parapneumonic effusions related to hospital-acquired pneumonia versus aspiration pneumonia. Plan is a rehab center. Parapneumonic effusion related to acquired pneumonia versus aspiration pneumonia. Possible treatment with long-term antibiotics will be done. Pancreatic pseudocyst drainage in a couple weeks. MMODL / IJN: [id number] /
--- NOTE | 2017-08-13 16:01 | P.GSCN ---
<Nella Jara - Last Filed: 08/13/17 15:37> History of Present Illness Consult date: 08/13/17 Reason for Consult: Loculated right-sided pleural effusion, need for VATS Requesting physician: Mckay Washington History of present illness: This 42-year-old patient who follows on an outpatient basis with Dr. Bandar Camacho. He has a previous medical history of chronic pancreatitis, COPD, seizure disorder, hepatitis C, bipolar disorder, current tobacco dependence, previous IV drug abuse as well as prescription drug abuse, ERCP at [facility] 6 months ago, and cholecystectomy on July [address] Hicks. Apparently after his discharge from the hospital from his cholecystectomy he was feeling okay at home, he finished his antibiotics, he did follow up with Dr. Roy and everything was going well until a few days ago when he developed abdominal pain and fever along with nausea. He presented to [facility] emergency room. He had an EGD done August 09 which demonstrated antral gastritis. He had a chest CT completed August 10 which demonstrated a loculated right pleural effusion. On August 11 he had an ultrasound-guided thoracentesis by interventional radiology where they drained 60 mL of fluid which was exudative in nature secondary to hospital acquired pneumonia. Repeat CT of the chest on August 13 demonstrated increased right pleural effusion again with loculated portions as well as volume loss. Dr. Sargent from cardiothoracic surgery was consulted for possibility of VATS procedure. Review of Systems 14 point review systems was completed and was negative except as noted. - Constitutional Reports as per HPI, Reports chills, Reports fever - Respiratory Reports as per HPI, Reports dyspnea - Gastrointestinal Reports as per HPI, Reports nausea Past Medical History Past Medical History: COPD, Musculoskeletal Disorder, Seizure Disorder Additional Past Medical History / Comment(s): History of seizures-per patient, his last seizure was in 2011, Hepatitis C, history of IV drug use, history of crack cocaine use, Degenerative disc disease in back, possible arthritis in knees, hips and arms. , History of chronic pancreatitis who presented status post cholecystectomy and the patient has history of pancreatitis and pancreatic pseudocyst formation and cholelithiasis and he was treated in the past. [facility]. History of Any Multi-Drug Resistant Organisms: None Reported Past Surgical History: Appendectomy Additional Past Surgical History / Comment(s): Appendectomy-1996, eye surgery- 1998, drain for pancreatitis Past Anesthesia/Blood Transfusion Reactions: No Reported Reaction Past Psychological History: Bipolar, Depression Smoking Status: Current every day smoker Past Alcohol Use History: None Reported Additional Past Alcohol Use History / Comment(s): Patient reports he drinks approximately 4 times a year-last drink per patient was this passed wednesday. 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 pt states that he is buying them off the street - Past Family History Brother(s) Additional Family Medical History / Comment(s): Chronic alcoholism Sister(s) Additional Family Medical History / Comment(s): Chronic alcoholism Daughter(s) Additional Family Medical History / Comment(s): One daughter healthy Son(s) Additional Family Medical History / Comment(s): One son healthy Father History Unknown: Yes Family Medical History: AICD/Pacemaker, Myocardial Infarction ([place]) Additional Family Medical History / Comment(s): Schizophrenia. Per patient, his father at the age of 59 Mother History Unknown: Yes Family Medical History: No Reported History Additional Family Medical History / Comment(s): HPV Medications and Allergies Home Medications Medication Instructions Recorded Confirmed Type Omeprazole 40 mg PO DAILY 08/25/16 08/09/17 History Mirtazapine [Remeron] 15 mg PO HS 11/23/16 08/09/17 History lamoTRIgine [LaMICtal] 100 mg PO BID 03/13/17 08/09/17 History Ibuprofen [Motrin Ib] 600 mg PO BID PRN 07/18/17 08/09/17 History Buprenorphine HCl/Naloxone HCl 0.5 film SL BID PRN 08/09/17 08/09/17 History [Suboxone 8 mg-2 mg Sl Film] OLANZapine [ZyPREXA] 15 mg PO DAILY 08/09/17 08/09/17 History Allergies Allergy/AdvReac Type Severity Reaction Status Date / Time codeine Allergy Swelling Verified 08/09/17 17:24 furosemide [From Lasix] Allergy Rash/Hives Verified 08/09/17 17:24 haloperidol [From Haldol] Allergy Unknown Verified 08/09/17 17:24 prochlorperazine Allergy Swelling Verified 08/09/17 17:24 lactose AdvReac Diarrhea Verified 08/12/17 12:32 Surgical - Exam Vital Signs Temp Pulse Resp BP Pulse Ox 101.4 F H 112 H 18 135/77 94 L 08/09/17 16:00 08/09/17 16:00 08/09/17 16:00 08/09/17 16:00 08/09/17 16:00 - General well developed, well nourished, no distress, chronically ill, obese - Eyes PERRL, normal ocular movement - ENT no hearing loss - Neck no masses, no bruits, trachea midline - Respiratory Lungs sounds diminished bilaterally, right greater than left. Respirations even , nonlabored. Currently on 2 L nasal cannula with oxygen saturation 92%. Achieving between 500-1000 mL on his incentive spirometry. - Cardiovascular S1, S2 present. Tachycardic, regular rate and rhythm, sinus tach on telemetry. Palpable peripheral pulses bilaterally. No edema present. No calf pain or tenderness noted. - Abdomen Abdomen: soft, tender, bowel sounds, surgical scars - Genitourinary Deferred - Rectum Deferred - Integumentary Multiple tattoos. no rash, no growths - Neurologic normal coordination, normal sensation - Psychiatric oriented to time, oriented to person, oriented to place, speech is normal, memory intact Results - Labs 08/13/17 08:39 08/13/17 08:39 Abnormal Lab Results - Last 24 Hours (Table) 08/13/17 08/13/17 Range/Units 08:39 08:39 RBC 3.42 L (4.30-5.90) m/uL Hgb 9.2 L (13.0-17.5) gm/dL Hct 31.1 L (39.0-53.0) % MCHC 29.7 L (31.0-37.0) g/dL Chloride 110 H (98-107) mmol/L Creatinine 1.58 H (0.66-1.25) mg/dL Glucose 117 H (74-99) mg/dL Calcium 8.0 L (8.4-10.2) mg/dL Microbiology - Last 24 Hours (Table) 08/11/17 09:00 Gram Stain - Final Sputum Sputum Culture - Final Fidelia albicans Fidelia glabrata 08/09/17 17:00 Blood Culture - Preliminary Blood No Growth after 72 hours 08/11/17 16:28 Blood Culture - Preliminary Blood No Growth after 24 hours 08/11/17 16:20 Blood Culture - Preliminary Blood No Growth after 24 hours 08/10/17 15:06 Blood Culture - Preliminary Blood No Growth after 48 hours 08/11/17 15:20 Gram Stain - Preliminary Pleural Fluid Body Fluid Culture - Preliminary Diabetes panel 08/13/17 Range/Units 08:39 Sodium 143 (137-145) mmol/L Potassium 3.5 (3.5-5.1) mmol/L Chloride 110 H (98-107) mmol/L Carbon Dioxide 22 (22-30) mmol/L BUN 9 (9-20) mg/dL Creatinine 1.58 H (0.66-1.25) mg/dL Glucose 117 H (74-99) mg/dL Calcium 8.0 L (8.4-10.2) mg/dL Calcium panel 08/13/17 Range/Units 08:39 Calcium 8.0 L (8.4-10.2) mg/dL Pituitary panel 08/13/17 Range/Units 08:39 Sodium 143 (137-145) mmol/L Potassium 3.5 (3.5-5.1) mmol/L Chloride 110 H (98-107) mmol/L Carbon Dioxide 22 (22-30) mmol/L BUN 9 (9-20) mg/dL Creatinine 1.58 H (0.66-1.25) mg/dL Glucose 117 H (74-99) mg/dL Calcium 8.0 L (8.4-10.2) mg/dL Adrenal panel 08/13/17 Range/Units 08:39 Sodium 143 (137-145) mmol/L Potassium 3.5 (3.5-5.1) mmol/L Chloride 110 H (98-107) mmol/L Carbon Dioxide 22 (22-30) mmol/L BUN 9 (9-20) mg/dL Creatinine 1.58 H (0.66-1.25) mg/dL Glucose 117 H (74-99) mg/dL Calcium 8.0 L (8.4-10.2) mg/dL - Imaging Chest x-ray: report reviewed, image reviewed CT scan - chest: report reviewed, image reviewed Assessment and Plan (1) Abdominal pain Current Visit: Yes Status: Acute Code(s): R10.9 - UNSPECIFIED ABDOMINAL PAIN SNOMED Code(s): 23273801 (2) Pancreatic pseudocyst Current Visit: Yes Status: Acute Code(s): K86.3 - PSEUDOCYST OF PANCREAS SNOMED Code(s): 142227382 (3) Pleural effusion Current Visit: Yes Status: Acute Code(s): J90 - PLEURAL EFFUSION, NOT ELSEWHERE CLASSIFIED SNOMED Code(s): 19339041 (4) Fever Current Visit: Yes Status: Acute Code(s): R50.9 - FEVER, UNSPECIFIED SNOMED Code(s): 666070684 (5) Pancreatitis Current Visit: Yes Status: Chronic Code(s): K85.90 - ACUTE PANCREATITIS WITHOUT NECROSIS OR INFECTION, UNSP SNOMED Code(s): 24078166 (6) History of hepatitis C Current Visit: No Status: Resolved Code(s): Z86.19 - PERSONAL HISTORY OF OTHER INFECTIOUS AND PARASITIC DISEASES SNOMED Code(s): 50411347408676 (7) Obesity (BMI 30-39.9) Current Visit: Yes Status: Chronic Code(s): E66.9 - OBESITY, UNSPECIFIED SNOMED Code(s): 677874468 Plan: The patient was seen and examined at the bedside with mother present. Chart/ diagnostics reviewed. Discussed case with Dr. Washington. Will discuss the case with Dr. Sargent. At this time continue current medical management per primary/ pulmonology/general surgery. Encourage incentive spirometry use 10 times every hour while awake. Continue IV antibiotics. Pain management per ordered regimen. More recommendations to follow. Thank you Dr. Washington for this consult. We looked forward to working with you in the care of your patient. Time with Patient: Greater than 30 <Silviano Sargent R - Last Filed: 08/14/17 13:35> Surgical - Exam Vital Signs Temp Pulse Resp BP Pulse Ox 101.4 F H 112 H 18 135/77 94 L 08/09/17 16:00 08/09/17 16:00 08/09/17 16:00 08/09/17 16:00 08/09/17 16:00 Results - Labs 08/13/17 08:39 08/14/17 05:40 Abnormal Lab Results - Last 24 Hours (Table) 08/14/17 Range/Units 05:40 Sodium 146 H (137-145) mmol/L Chloride 111 H (98-107) mmol/L BUN 7 L (9-20) mg/dL Creatinine 1.60 H (0.66-1.25) mg/dL Calcium 8.0 L (8.4-10.2) mg/dL Microbiology - Last 24 Hours (Table) 08/11/17 15:20 Anaerobic Culture - Preliminary Pleural Fluid 08/09/17 17:00 Blood Culture - Preliminary Blood No Growth after 96 hours 08/11/17 15:20 Gram Stain - Preliminary Pleural Fluid Body Fluid Culture - Preliminary 08/11/17 16:28 Blood Culture - Preliminary Blood No Growth after 48 hours 08/11/17 16:20 Blood Culture - Preliminary Blood No Growth after 48 hours 08/10/17 15:06 Blood Culture - Preliminary Blood No Growth after 72 hours Diabetes panel 08/14/17 Range/Units 05:40 Sodium 146 H (137-145) mmol/L Potassium 3.7 (3.5-5.1) mmol/L Chloride 111 H (98-107) mmol/L Carbon Dioxide 24 (22-30) mmol/L BUN 7 L (9-20) mg/dL Creatinine 1.60 H (0.66-1.25) mg/dL Glucose 86 (74-99) mg/dL Calcium 8.0 L (8.4-10.2) mg/dL Calcium panel 08/14/17 Range/Units 05:40 Calcium 8.0 L (8.4-10.2) mg/dL Pituitary panel 08/14/17 Range/Units 05:40 Sodium 146 H (137-145) mmol/L Potassium 3.7 (3.5-5.1) mmol/L Chloride 111 H (98-107) mmol/L Carbon Dioxide 24 (22-30) mmol/L BUN 7 L (9-20) mg/dL Creatinine 1.60 H (0.66-1.25) mg/dL Glucose 86 (74-99) mg/dL Calcium 8.0 L (8.4-10.2) mg/dL Adrenal panel 08/14/17 Range/Units 05:40 Sodium 146 H (137-145) mmol/L Potassium 3.7 (3.5-5.1) mmol/L Chloride 111 H (98-107) mmol/L Carbon Dioxide 24 (22-30) mmol/L BUN 7 L (9-20) mg/dL Creatinine 1.60 H (0.66-1.25) mg/dL Glucose 86 (74-99) mg/dL Calcium 8.0 L (8.4-10.2) mg/dL Assessment and Plan Assessment: Chart reviewed, patient evaluated and examined, radiologic studies reviewed. Case discussed with nurse practitioner. Agree with her assessment and evaluation as documented. Patient will require right-sided thoracoscopy for multiloculated effusion possible open thoracotomy and decortication. We'll schedule.
--- NOTE | 2017-08-13 17:23 | PN ---
PROGRESS NOTE DATE OF SERVICE: 08/13/2017. REASON FOR FOLLOWUP: 1. Possible infected pancreatic pseudocyst. 2. Pneumonia with parapneumonic effusion. INTERVAL HISTORY: The patient is currently afebrile. He is still complaining of some shortness of breath. He did have some cough but not bringing up any sputum. The patient denies having any worsening abdominal pain. No nausea, vomiting or diarrhea. EXAMINATION: Blood pressure is 115/68 with a pulse of 99, temperature 98. He is 92% on 2 L nasal cannula. General description is a middle-aged male lying in bed in no distress. RESPIRATORY SYSTEM: Unlabored breathing with decreased breath sounds. No wheeze. HEART: S1, S2. Regular rate and rhythm. ABDOMEN: Soft, no tenderness. Slightly distended. LABS: Hemoglobin 9.8, white count 8.7 with a BUN of 9, creatinine 1.58. DIAGNOSTIC IMPRESSION AND PLAN: Patient with a fever with concern for possible infected pancreatic pseudocyst with also right-sided pneumonia, now with a parapneumonic effusion which is multiloculated for which the patient will need possible thoracotomy. Pulmonary is on the case. May benefit from transfer to tertiary care. Vancomycin dose needs to be adjusted further down as there has been slight jump in his creatinine to prevent any nephrotoxicity from it. Continue meropenem. Discussed in detail with pharmacy. Continue supportive care. MMODL / IJN: [id number] /
[2017-08-13] MEDS: KETOROLAC 30 MG/ML 1 ML VIAL IVP PRN (17:43)
[2017-08-13] MEDS: MIRTAZAPINE 15 MG TAB PO SCH (21:01)
[2017-08-14] MEDS ORDERED: VANCOMYCIN 2,000 MG in SODIUM CHLORIDE 0.9% 500 ML IVPB SCH ×2
[2017-08-14] MEDS: SODIUM CHLORIDE 0.9% 1,000 ML IV SCH ×3 (00:46→17:17)
[2017-08-14] MEDS: ACETAMINOPHEN TAB 325 MG TAB PO PRN ×3 (01:37→21:23)
[2017-08-14] MEDS: IPRATROPIUM-ALBUTEROL 3 ML NEB INHALATION PRN (01:45)
[2017-08-14] MEDS: MEROPENEM 1 GM in SODIUM CHLORIDE 0.9% 100 ML IVPB SCH ×3 (06:34→21:24)
[2017-08-14] MEDS: MORPHINE ORAL SOLN 10 MG/5 ML CUP PO PRN ×4 (06:38→22:19)
[2017-08-14 06:47] LABS: Potassium 3.7 mmol/L (3.5-5.1)
--- NOTE | 2017-08-14 07:22 | XR ---
EXAMINATION TYPE: XR chest 1V portable DATE OF EXAM: 08/14/2017 HISTORY: pleural effusion. REFERENCE: Previous study dated 08/12/2017. FINDINGS: There is worsening opacity of the right hemithorax. Heart size is obscured. There is vascul ar congestion and mild edema. IMPRESSION: 1. WORSENING RIGHT-SIDED PNEUMONIA/CONSOLIDATION. 2. MILD CHANGES OF PULMONARY EDEMA.
[2017-08-14] MEDS: PANTOPRAZOLE 40 MG TABLET PO SCH (07:33)
[2017-08-14] MEDS: IPRATROPIUM-ALBUTEROL 3 ML NEB INHALATION SCH ×3 (07:37→20:26)
[2017-08-14] MEDS: OLANZapine 5 MG TAB PO SCH (08:22)
[2017-08-14] MEDS: lamoTRIgine 100 MG TAB PO SCH ×2 (08:23→20:11)
[2017-08-14] MEDS: VANCOMYCIN 2,000 MG in SODIUM CHLORIDE 0.9% 500 ML IVPB SCH (08:25)
--- NOTE | 2017-08-14 09:01 | P.PN ---
Subjective Progress Note Date: 08/14/17 (Patient seen and evaluated examined while covering for Dr. Bandar Camacho) 08/14/2017, patient seen eval examined has mild degree or shortness of breath and expiratory wheezing patient is currently nothing by mouth for anticipated VATS procedure by thoracic surgery This 42-year-old patient who follows on an outpatient basis with Dr. Bandar Camacho. He has a previous medical history of chronic pancreatitis, COPD, seizure disorder, hepatitis C, bipolar disorder, current tobacco dependence, previous IV drug abuse as well as prescription drug abuse, ERCP at [facility] 6 months ago, and cholecystectomy on July [address] Hicks. Apparently after his discharge from the hospital from his cholecystectomy he was feeling okay at home, he finished his antibiotics, he did follow up with Dr. Roy and everything was going well until a few days ago when he developed abdominal pain and fever along with nausea. He presented to [facility] emergency room. He had an EGD done August 09 which demonstrated antral gastritis. He had a chest CT completed August 10 which demonstrated a loculated right pleural effusion. On August 11 he had an ultrasound-guided thoracentesis by interventional radiology where they drained 60 mL of fluid which was exudative in nature secondary to hospital acquired pneumonia. Repeat CT of the chest on August 13 demonstrated increased right pleural effusion again with loculated portions as well as volume loss. Dr. Sargent from cardiothoracic surgery was consulted for possibility of VATS procedure. Objective - Vital Signs Vital signs: Vital Signs Temp 98.9 F 08/14/17 03:24 Pulse 100 08/14/17 07:49 Resp 19 08/14/17 03:26 BP 131/75 08/14/17 03:24 Pulse Ox 95 08/14/17 03:24 Intake & Output 08/13/17 08/14/17 08/14/17 18:59 06:59 18:59 Intake Total 860 Output Total 225 Balance -225 860 Weight 122.4 kg Intake: Intake, IV Titration 360 Amount Sodium Chloride 0.9% 1, 360 000 ml @ 120 mls/hr IV . Q8H20M [facility] Rx#:[id number] Oral 500 Output: Urine 225 Other: Voiding Method Toilet Toilet Urinal Urinal # Voids 1 1 - Exam - General well developed, well nourished, no distress, chronically ill, obese - Eyes PERRL, normal ocular movement - ENT no hearing loss - Neck no masses, no bruits, trachea midline - Respiratory Lungs sounds diminished bilaterally, right greater than left. Respirations even , nonlabored. Fine wheezing on fours expiration they do improve with breathing treatments Currently on 2 L nasal cannula with oxygen saturation 92%. Achieving between 500-1000 mL on his incentive spirometry. - Cardiovascular S1, S2 present. Tachycardic, regular rate and rhythm, sinus tach on telemetry. Palpable peripheral pulses bilaterally. No edema present. No calf pain or tenderness noted. - Abdomen Abdomen: soft, tender, bowel sounds, surgical scars - Genitourinary Deferred - Rectum Deferred - Integumentary Multiple tattoos. no rash, no growths - Neurologic normal coordination, normal sensation - Psychiatric oriented to time, oriented to person, oriented to place, speech is normal, memory intact - Labs CBC & Chem 7: 08/13/17 08:39 08/14/17 05:40 Labs: Abnormal Lab Results - Last 24 Hours (Table) 08/13/17 08/13/17 08/14/17 Range/Units 08:39 08:39 05:40 RBC 3.42 L (4.30-5.90) m/uL Hgb 9.2 L (13.0-17.5) gm/dL Hct 31.1 L (39.0-53.0) % MCHC 29.7 L (31.0-37.0) g/dL Sodium 146 H (137-145) mmol/L Chloride 110 H 111 H (98-107) mmol/L BUN 7 L (9-20) mg/dL Creatinine 1.58 H 1.60 H (0.66-1.25) mg/dL Glucose 117 H (74-99) mg/dL Calcium 8.0 L 8.0 L (8.4-10.2) mg/dL Microbiology - Last 24 Hours (Table) 08/11/17 15:20 Anaerobic Culture - Preliminary Pleural Fluid 08/09/17 17:00 Blood Culture - Preliminary Blood No Growth after 96 hours 08/11/17 15:20 Gram Stain - Preliminary Pleural Fluid Body Fluid Culture - Preliminary 08/11/17 16:28 Blood Culture - Preliminary Blood No Growth after 48 hours 08/11/17 16:20 Blood Culture - Preliminary Blood No Growth after 48 hours 08/10/17 15:06 Blood Culture - Preliminary Blood No Growth after 72 hours 08/11/17 09:00 Gram Stain - Final Sputum Sputum Culture - Final Fidelia albicans Fidelia glabrata Assessment and Plan Assessment: Acute on chronic pancreatitis Pancreatic pseudocyst Right-sided parapneumonic effusion and loculated effusion Right-sided pneumonia Chronic recurrent pancreatitis Chronic hepatitis C Plan: Nothing by mouth as per surgical recommendation Continue breathing exercise nebulizer and broad-spectrum antibiotics VATS procedure as per thoracic surgery Repeat labs and x-ray tomorrow further recommendations pending plan of care as per clinical response of the patient Time with Patient: Greater than 30
--- NOTE | 2017-08-14 11:32 | P.PN ---
Subjective Progress Note Date: 08/14/17 Patient is a 42-year-old white male who presented to the hospital with a history of chronic pancreatitis, pseudocyst, COPD, seizure disorder, hepatitis C , bipolar disorder, tobacco dependence, previous IV drug abuse, prescription drug abuse. He underwent an ERCP at [facility] 6 months ago, and a cholecystectomy July 22 at [place]. Following his discharge he developed abdominal pain fever and nausea. An EGD was done August 09 which demonstrated astral gastritis. A chest CT done August 10 demonstrated a loculated right pleural effusion. I August 11 he had an ultrasound-guided thoracentesis and 60 mL of fluid which were exudative in nature felt to be secondary hospital- acquired pneumonia were drained. Repeat computed tomography scan August 13 demonstrated increased right pleural effusion a can with loculated portions and volume loss. Dr. Sargent from cardiothoracic surgery will see the patient regarding possible VATS procedure. A CAT scan performed on 08/09/2017 revealed a 7.5 cm cystic mass in the anterior body of the pancreas. The blood cell count 8.7, hemoglobin 9.2 Patient is currently on meropenem, vancomycin Objective - Vital Signs Vital signs: Vital Signs Temp 99.3 F 08/14/17 08:00 Pulse 107 H 08/14/17 08:00 Resp 16 08/14/17 08:00 BP 134/74 08/14/17 08:00 Pulse Ox 94 L 08/14/17 08:00 Intake & Output 08/13/17 08/14/17 08/14/17 18:59 06:59 18:59 Intake Total 860 Output Total 225 Balance -225 860 Weight 122.4 kg Intake: Intake, IV Titration 360 Amount Sodium Chloride 0.9% 1, 360 000 ml @ 120 mls/hr IV . Q8H20M [facility] Rx#:[id number] Oral 500 Output: Urine 225 Other: Voiding Method Toilet Toilet Urinal Urinal # Voids 1 1 2 - Constitutional General appearance: Present: obese - Respiratory Details: Decreased breath sounds at the bases Respiratory: bilateral: diminished - Cardiovascular Rhythm: regular Heart sounds: normal: S1, S2 - Gastrointestinal Gastrointestinal Comment(s): Mild tenderness midepigastric area No guarding or rebound General gastrointestinal: Present: normal bowel sounds, soft - Psychiatric Psychiatric: Present: A&O x's 3, appropriate affect, intact judgment & insight - Labs CBC & Chem 7: 08/13/17 08:39 08/14/17 05:40 Labs: Abnormal Lab Results - Last 24 Hours (Table) 08/14/17 Range/Units 05:40 Sodium 146 H (137-145) mmol/L Chloride 111 H (98-107) mmol/L BUN 7 L (9-20) mg/dL Creatinine 1.60 H (0.66-1.25) mg/dL Calcium 8.0 L (8.4-10.2) mg/dL Microbiology - Last 24 Hours (Table) 08/11/17 15:20 Anaerobic Culture - Preliminary Pleural Fluid 08/09/17 17:00 Blood Culture - Preliminary Blood No Growth after 96 hours 08/11/17 15:20 Gram Stain - Preliminary Pleural Fluid Body Fluid Culture - Preliminary 08/11/17 16:28 Blood Culture - Preliminary Blood No Growth after 48 hours 08/11/17 16:20 Blood Culture - Preliminary Blood No Growth after 48 hours 08/10/17 15:06 Blood Culture - Preliminary Blood No Growth after 72 hours 08/11/17 09:00 Gram Stain - Final Sputum Sputum Culture - Final Fidelia albicans Fidelia glabrata Assessment and Plan Assessment: Impression/plan: 1. Acute and chronic pancreatitis 2. Pancreatic pseudocyst 3. Right-sided pneumonia/pleural effusion 2. Chronic hepatitis C 5. History of drug abuse 6. Major depressive disorder Plan: 1. Await recommendation as per Dr. Sargent 2. Continue IV antibiotic therapy as per infectious disease 3. Probable drainage of pseudocyst per Dr. Royal area in near future
--- NOTE | 2017-08-14 12:19 | P.PN ---
Subjective Progress Note Date: 08/14/17 Principal diagnosis: Loculated right-sided pleural effusion. Previous medical history of chronic pancreatitis, COPD, seizure disorder, hepatitis C, bipolar disorder, current tobacco dependence, previous IV drug abuse as well as prescription drug abuse, ERCP 6 months ago, cholecystectomy on July 22. Patient is currently laying in bed in no acute distress. Does still complain of shortness of breath with activity. Was transferred to [address] [place] [address] yesterday for closer monitoring. Objective - Vital Signs Vital signs: Vital Signs Temp 99.3 F 08/14/17 08:00 Pulse 107 H 08/14/17 08:00 Resp 16 08/14/17 08:00 BP 134/74 08/14/17 08:00 Pulse Ox 94 L 08/14/17 08:00 Intake & Output 08/13/17 08/14/17 08/14/17 18:59 06:59 18:59 Intake Total 860 Output Total 225 Balance -225 860 Weight 122.4 kg Intake: Intake, IV Titration 360 Amount Sodium Chloride 0.9% 1, 360 000 ml @ 120 mls/hr IV . Q8H20M [facility] Rx#:[id number] Oral 500 Output: Urine 225 Other: Voiding Method Toilet Toilet Urinal Urinal # Voids 1 1 1 # Bowel Movements 0 - Constitutional General appearance: Present: cooperative, no acute distress, obese - Respiratory Details: Lungs sounds diminished bilaterally, right greater than left. Respirations even , nonlabored. Currently on 2 L nasal cannula with oxygen saturation 95%. Achieving between 750-1000 mL on his incentive spirometry. - Cardiovascular Details: S1, S2 present. Tachycardic, regular rate and rhythm, sinus tach on telemetry. Palpable peripheral pulses bilaterally. No edema present. No calf pain or tenderness noted. - Gastrointestinal Gastrointestinal Comment(s): Abdomen soft, tender to palpitation, nondistended. Active bowel sounds present 4 quadrants. Nothing by mouth currently but does tolerate clear liquids. - Genitourinary Genitourinary Comment(s): Continues to void yellow urine. - Integumentary Integumentary Comment(s): Skin is warm and dry with evidence of good perfusion. Multiple tattoos present. - Neurologic Neurologic: Present: CNII-XII intact - Musculoskeletal Musculoskeletal: Present: strength equal bilaterally - Psychiatric Psychiatric: Present: A&O x's 3, appropriate affect, intact judgment & insight - Allied health notes Allied health notes reviewed: nursing - Labs CBC & Chem 7: 08/13/17 08:39 08/14/17 05:40 Labs: Abnormal Lab Results - Last 24 Hours (Table) 08/14/17 Range/Units 05:40 Sodium 146 H (137-145) mmol/L Chloride 111 H (98-107) mmol/L BUN 7 L (9-20) mg/dL Creatinine 1.60 H (0.66-1.25) mg/dL Calcium 8.0 L (8.4-10.2) mg/dL Microbiology - Last 24 Hours (Table) 08/11/17 15:20 Anaerobic Culture - Preliminary Pleural Fluid 08/09/17 17:00 Blood Culture - Preliminary Blood No Growth after 96 hours 08/11/17 15:20 Gram Stain - Preliminary Pleural Fluid Body Fluid Culture - Preliminary 08/11/17 16:28 Blood Culture - Preliminary Blood No Growth after 48 hours 08/11/17 16:20 Blood Culture - Preliminary Blood No Growth after 48 hours 08/10/17 15:06 Blood Culture - Preliminary Blood No Growth after 72 hours 08/11/17 09:00 Gram Stain - Final Sputum Sputum Culture - Final Fidelia albicans Fidelia glabrata - Imaging and Cardiology Chest x-ray: report reviewed, image reviewed Assessment and Plan (1) Abdominal pain Current Visit: Yes Status: Acute Code(s): R10.9 - UNSPECIFIED ABDOMINAL PAIN SNOMED Code(s): 64060918 (2) Pancreatic pseudocyst Current Visit: Yes Status: Acute Code(s): K86.3 - PSEUDOCYST OF PANCREAS SNOMED Code(s): 446924023 (3) Pleural effusion Current Visit: Yes Status: Acute Code(s): J90 - PLEURAL EFFUSION, NOT ELSEWHERE CLASSIFIED SNOMED Code(s): 32011181 (4) Fever Current Visit: Yes Status: Acute Code(s): R50.9 - FEVER, UNSPECIFIED SNOMED Code(s): 049369329 (5) Pancreatitis Current Visit: Yes Status: Chronic Code(s): K85.90 - ACUTE PANCREATITIS WITHOUT NECROSIS OR INFECTION, UNSP SNOMED Code(s): 35132009 (6) History of hepatitis C Current Visit: No Status: Resolved Code(s): Z86.19 - PERSONAL HISTORY OF OTHER INFECTIOUS AND PARASITIC DISEASES SNOMED Code(s): 42586273610034 (7) Obesity (BMI 30-39.9) Current Visit: Yes Status: Chronic Code(s): E66.9 - OBESITY, UNSPECIFIED SNOMED Code(s): 446214893 Plan: 1. Encourage incentive spirometry use 10 times every hour while awake. Wean O2 as tolerated. 2. Continue IV antibiotics. 3. Pain management with ordered regimen. 4. Medical comorbidities to be managed her primary care, pulmonology, general surgery. 5. Will discuss the case with Dr. Sargent as to timing/appropriateness of surgery. Patient is currently stable and not in significant distress. 6. More recommendations to follow. Time with Patient: Greater than 30
[2017-08-14] MEDS: HYDROmorphone 2 MG TAB PO PRN ×2 (14:11→20:11)
[2017-08-14] MEDS ORDERED: VANCOMYCIN TROUGH DUE 1 EACH MISC MISCELLANE ONE (15:00)
--- NOTE | 2017-08-14 15:01 | P.PN ---
Subjective Progress Note Date: 08/14/17 Juan is a 42-year-old white male patient of Dr. Bandar Camacho who presented to the emergency department on 08/09/2017 at 1438 with complaints of diffuse abdominal pain across the left upper quadrant, fever. Denied any nausea, denied any vomiting, or diarrhea or abdominal distention. Reports poor oral intake. Patient was recently hospitalized for chronic pancreatitis and underwent recent laparoscopic cholecystectomy for acute cholelithiasis on 2017 Dr. Hicks and discharged home on 07/26/2017 on oral antibiotics which the patient has completed. Patient was treated for pancreatitis, and a pancreatic pseudocyst and cholelithiasis. He was seen in the follow-up and an office visit a week ago and was feeling well at that time. The plan was to have an EGD with possible drainage of the pancreatic pseudocyst. 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 CT of abdomen and pelvis with contrast revealed previously seen large cystic mass in the anterior body of the pancreas, with mildly inflamed upper anterior margin, and a new right pleural effusion compared to the prior study. Patient was febrile, with a temp of 101.4F presentation and has been intermittently febrile during this admission. Hemodynamically stable. Tachycardic with a heart rate up to 110 BPM, and tachypneic at times. Lab work on admission showed WBC of 14.5, hemoglobin of 12.1, electrolytes were within normal limits, renal profile was within normal limits, alkaline phosphatase was 207, malaise was 145 which is down from 152 upon discharge on 07/20/2017, lipase was 391. Upon his were negative 3. Urinalysis showed 2+ protein, 1+ nitrites. Patient was given 2 L of IV fluid boluses of 0.9 normal saline in the emergency room, and his maintenance IV fluids were started at 120 ML per hour. Patient was started on Zosyn for antibiotic coverage, he was given IV Toradol and morphine pain control. Patient was seen by general surgery and had an EGD on 08/10/2017, and was found to have mild antral gastritis. There was no visualization of the pancreatic pseudocyst during the procedure. The distal and the proximal esophagus appeared normal. He was then transferred to a regular medical surgical room in stable condition. Patient continued to be intermittently febrile, slightly dyspneic, but in no respiratory distress. Blood cultures were collected and sent, patient was given an additional 1 L of 0.9 normal saline IV bolus, her a total of 3 L of IV 0.9 bolus. Infectious disease service consult was initiated who recommended to continue with Zosyn at this time for antibiotic coverage. Lactic acid was within normal at 1.9. Today's blood work shows WBC of 13.3, hemoglobin of 10.9, INR 1.3, electrolytes and renal profile remained within normal limits. Patient was seen sitting up on the edge of the bed, denying any acute distress. Denied any chest pain, denied any acute dyspnea. Slightly pale and diaphoretic, receiving IV bolus of 0.9 normal saline. Some left upper abdominal tenderness, but abdomen is soft. Chest x-ray was obtained and showed right lower lobe pneumonia versus atelectasis and possible associated effusion. S1 is followed by CT chest without contrast which showed moderately large partially loculated right-sided pleural effusion, areas of compressive atelectasis, or infiltrate. Remote granulomatous changes. Patient is currently on 2 L per nasal cannula with O2 sat 95%, most recent vitals include a temperature of 98.1F, heart rate of 100 bpm, respiratory rate of 18, and blood pressure 119/64. On 08/11/2017 patient is seen in follow-up. He is resting in bed, mildly dyspneic, but in no acute distress. He is diaphoretic, does have some mild chest discomfort on deep inspiration over right posterior chest, lung sounds are diminished over right posterior lobe, and there are bibasilar crackles present. ID service has changed the patient's antibiotics from Zosyn to meropenem, yesterday we added vancomycin. Last fever was on 08/10/2017 at 1444 with a temp of 100.5F, no fevers overnight. Patient is hemodynamically stable , he was fluid resuscitated with 3 L of 0.9 normal saline fluid boluses, and his current IV is 0.9 normal saline at a rate of 120 ML per hour. His abdomen remains diffusely tender over upper bilateral quadrants, as well as the mid abdomen., Denies any nausea vomiting or diarrhea. He is receiving IV morphine pain control. Today's lab work was reviewed, WBC is 12.2, hemoglobin is 10.4, electrolytes within normal limits, BUN is 7, creatinine is 0.68, asthma lactic acid was within normal limits at 1.9, he is voiding. Continue current antibiotic coverage, we will potentially consult with interventional radiology in regards to drainage of his right-sided loculated pleural effusion, which is suspected to be parapneumonic in nature. The patient is seen again today 08/12/2017 in follow-up on the regular medical floor. He is awake and alert. He remains somewhat diaphoretic. Quite dyspneic on minimal exertion. He is maintaining O2 saturations in the low 90s when checked on room air. He's been up and bleeding in the room. He did undergo a ultrasound guided thoracentesis for diagnosis yesterday by IR. Cultures are pending. The fluid was bloody with total protein 4.3 and an LDH of 901. White count today 9.3. Hemoglobin 9.8. Creatinine 1.18. He remains covered with vancomycin and meropenem. On 08/13/2017 patient seen in follow-up. Today's chest x-ray shows increasing right-sided pleural effusion, volume loss and underlying infiltrate. Ultrasound guided right thoracentesis, on 08/11/2017 with drainage of 60 mL of pleural fluid. Urinalysis is consistent with exudative plural effusion secondary to pneumonia. We will obtain CT chest today to assess the loculation of the right pleural fluid. His abdominal pain is improving, although he still has persistent left-sided abdominal discomfort. Has been afebrile over the last 24 hours, and 2 L per nasal cannula O2 sat 96%. Hemodynamically stable. His amylase and lipase are now within normal limits. And accommodation of meropenem and vancomycin, pleural fluid culture is negative for any growth so far, will await the results of the final cultures, blood cultures are negative. Sputum cultures positive for Fidelia albicans and Fidelia glabrata, which is most likely contaminated by oral fortino. Surgery is following, and was discussed with the patient whether he would want to be transferred to a tertiary institution, patient's amylase and lipase are coming down, and his bone pain is improving. On 08/14/2017 and I'm seeing this patient for a follow-up his condition is decompensated significantly over the past few days and the patient got transferred to a telemetry unit. He is doing poorly. He has become progressively more short of breath and the CAT scan of the chest done yesterday showed increasing right-sided pleural effusion along with volume loss and progressive infiltration of the right lung is along with atelectatic changes and some loculation of the right-sided pleural effusion. The findings are consistent withinfection and possible empyema. The pleural fluid that was drained earlier for diagnostic purposes was complicated parapneumonic effusion with elevated LDH and protein in the fluid culture was negative for any bacterial growth. Previous sputum analysis at time of admission showed a combination of Fidelia albicans and glabrata.A subsequent chest x-ray from today shows worsening of the right sided pneumonia/consolidation and there is obvious loculation of the pleural fluid based on the CAT scan findings. I discussed this case with a thoracic surgeon and the patient will be taken to the operating room tomorrow for a video-assisted thoracoscopic evaluation, and possible decortication. I also noted that the patient's renal function has been progressively getting worse. Creatinine is up to 1.6. Stop all nonsteroidal anti-inflammatory medication. Vancomycin level is toxic and this is currently on hold for now. He is also on IV Merrem. Afebrile. Oral intake is diminished specially his underlying pneumonia. No nausea. No vomiting. No significant abdominal pain for now. Objective - Vital Signs Vital signs: Vital Signs Temp 101 F H 08/14/17 11:30 Pulse 106 H 08/14/17 13:50 Resp 18 08/14/17 11:30 BP 127/60 08/14/17 11:30 Pulse Ox 93 L 08/14/17 11:30 Intake & Output 08/13/17 08/14/17 08/14/17 18:59 06:59 18:59 Intake Total 860 Output Total 225 Balance -225 860 Weight 122.4 kg Intake: Intake, IV Titration 360 Amount Sodium Chloride 0.9% 1, 360 000 ml @ 120 mls/hr IV . Q8H20M [facility] Rx#:[id number] Oral 500 Output: Urine 225 Other: Voiding Method Toilet Toilet Urinal Urinal # Voids 1 1 1 # Bowel Movements 0 - Exam GENERAL EXAM: Alert, pleasant, 42-year-old white male patient, diaphoretic, reporting some diffuse abdominal cramping, over bilateral upper quadrants, and mid abdomen, and the patient is a mild degree of respiratory distress and oxygen 2 L/m nasal cannula. He is obese with a BMI of 38.7. HEAD: Normocephalic/atraumatic. EYES: Normal reaction of pupils, equal size. Conjunctiva pink, sclera white. NOSE: Clear with pink turbinates. THROAT: No erythema or exudates. NECK: No masses, no JVD, no thyroid enlargement, no adenopathy. CHEST: No chest wall deformity. Symmetrical expansion. LUNGS: Diminished breath sounds over right lower lobe, with bibasilar crackles on today's evaluation there is further diminishment of the right lung breath sounds. There is some limited contact in the right lung base. For the most part the right chest is becoming more and more silent. CVS: Regular rate and rhythm, normal S1 and S2, no gallops, no murmurs, no rubs ABDOMEN: Soft, nontender. No hepatosplenomegaly, normal bowel sounds, no guarding or rigidity. EXTREMITIES: No clubbing, no edema, no cyanosis, 2+ pulses and upper and lower extremities. MUSCULOSKELETAL: Muscle strength and tone normal. SPINE: No scoliosis or deformity SKIN: No rashes CENTRAL NERVOUS SYSTEM: Alert and oriented -3. No focal deficits, tone is normal in all 4 extremities. PSYCHIATRIC: Alert and oriented -3. Appropriate affect. Intact judgment and insight. - Labs CBC & Chem 7: 08/13/17 08:39 08/14/17 05:40 Labs: Abnormal Lab Results - Last 24 Hours (Table) 08/14/17 Range/Units 05:40 Sodium 146 H (137-145) mmol/L Chloride 111 H (98-107) mmol/L BUN 7 L (9-20) mg/dL Creatinine 1.60 H (0.66-1.25) mg/dL Calcium 8.0 L (8.4-10.2) mg/dL Microbiology - Last 24 Hours (Table) 08/11/17 15:20 Anaerobic Culture - Preliminary Pleural Fluid 08/09/17 17:00 Blood Culture - Preliminary Blood No Growth after 96 hours 08/11/17 15:20 Gram Stain - Preliminary Pleural Fluid Body Fluid Culture - Preliminary 08/11/17 16:28 Blood Culture - Preliminary Blood No Growth after 48 hours 08/11/17 16:20 Blood Culture - Preliminary Blood No Growth after 48 hours 08/10/17 15:06 Blood Culture - Preliminary Blood No Growth after 72 hours Assessment and Plan Plan: Assessment 1. Right lung pneumonia complicated by development of a parapneumonic effusion which is complicated and possibly there may be a component of empyema. The pleural fluid analysis that was done through a diagnostic thoracentesis showed elevated LDH and protein. Cultures of been negative. The patient has progressive worsening and opacification of the right lung and the patient will need a video-assisted thoracoscopic surgery/decortication. I have talked to Dr. Silviano Sargent and the patient will be taken to the operating room tomorrow. Meanwhile continue the current supportive care with oxygen antibiotic treatment. 2 acute hypoxic respiratory failure secondary to above 3 episodic fever, multifactorial. 4 chronic pancreatitis with formation of pancreatic pseudocyst, status post EGD 5 status post endoscopic cholecystectomy performed on 07/21/2017 6 hepatitis C viral infection secondary to IV drug use 7 acute kidney injury probably rates to pneumonia and sepsis. Rule out also possibility of vancomycin toxicity. The patient has been taking nonsteroidal anti-inflammatory medications for pain 8 major depression to the [facility] facility December 2016 9 Chronic cholelithiasis status post cholecystectomy 10 Current mild leukocytosis, resolved 11 anemia, mild, stable Plan The patient will be taken to the operating room tomorrow. Continue IV fluids at 125 mL an hour of normal saline. Monitor renal function. Hold vancomycin and monitor the levels. He is producing adequate amount of urine output. Continue IV Merrem. Reviewed the chest x-ray from today. Overall pulmonary status is poor and the patient will need a thoracoscopic surgery/possible decortication. We'll continue to follow. Meanwhile, stop the nonsteroidal anti -inflammatory medication including a combination of ibuprofen and Toradol. Spoke to the patient and the daughter and also spoke to the surgeon
[2017-08-14] MEDS: MIRTAZAPINE 15 MG TAB PO SCH (20:11)
[2017-08-15] MEDS: SODIUM CHLORIDE 0.9% 1,000 ML IV SCH ×3 (01:37→20:09)
[2017-08-15] MEDS: HYDROmorphone 2 MG TAB PO PRN (04:54)
[2017-08-15] MEDS ORDERED: VANCOMYCIN TROUGH DUE 1 EACH MISC MISCELLANE ONE (05:00)
[2017-08-15] MEDS: MEROPENEM 1 GM in SODIUM CHLORIDE 0.9% 100 ML IVPB SCH ×3 (05:21→22:37)
[2017-08-15] MEDS: IPRATROPIUM-ALBUTEROL 3 ML NEB INHALATION PRN (05:28)
[2017-08-15 06:29] LABS: Albumin 2.8 g/dL (3.5-5.0); Calcium 8.1 mg/dL (8.4-10.2); Potassium 3.6 mmol/L (3.5-5.1); Total Bilirubin 0.4 mg/dL (0.2-1.3); Total Protein 5.3 g/dL (6.3-8.2)
[2017-08-15 06:30] LABS: Basophils % (A) 0 %; Eosinophils # (A) 0.4 k/uL (0-0.7); Eosinophils % (A) 5 %; HCT 29.6 % (39.0-53.0); HGB 9.2 gm/dL (13.0-17.5); Hypochromasia Slight; Lymphocytes # (A) 1.1 k/uL (1.0-4.8); Lymphocytes % (A) 14 %; MCH 27.3 pg (25.0-35.0); Mean Platelet Volume 8.2; Monocytes # (A) 0.8 k/uL (0-1.0); Monocytes % (A) 10 %; Neutrophils # (A) 5.3 k/uL (1.3-7.7); Neutrophils % (A) 69 %; Platelet Count 256 k/uL (150-450); RBC 3.36 m/uL (4.30-5.90); RDW 13.4 % (11.5-15.5); WBC 7.7 k/uL (3.8-10.6)
[2017-08-15] MEDS: PANTOPRAZOLE 40 MG TABLET PO SCH (06:41)
[2017-08-15] MEDS: VANCOMYCIN 2,000 MG in SODIUM CHLORIDE 0.9% 500 ML IVPB SCH (07:00)
[2017-08-15] MEDS: OLANZapine 5 MG TAB PO SCH (08:00)
[2017-08-15] MEDS: lamoTRIgine 100 MG TAB PO SCH ×2 (08:00→21:02)
[2017-08-15] MEDS: MORPHINE ORAL SOLN 10 MG/5 ML CUP PO PRN (08:00)
[2017-08-15] MEDS: IPRATROPIUM-ALBUTEROL 3 ML NEB INHALATION SCH ×3 (08:38→21:20)
[2017-08-15] MEDS: ACETAMINOPHEN TAB 325 MG TAB PO PRN ×2 (09:39→22:05)
--- NOTE | 2017-08-15 11:38 | P.PN ---
Subjective Progress Note Date: 08/15/17 Patient is a 42-year-old white male who presented to the hospital with a history of chronic pancreatitis, pseudocyst, COPD, seizure disorder, hepatitis C , bipolar disorder, tobacco dependence, previous IV drug abuse, prescription drug abuse. He underwent an ERCP at [facility] 6 months ago, and a cholecystectomy July 22 at [facility]. Following his discharge he developed abdominal pain fever and nausea. An EGD was done August 09 which demonstrated astral gastritis. A chest CT done August 10 demonstrated a loculated right pleural effusion. On August 11 he had an ultrasound-guided thoracentesis and 60 mL of fluid which were exudative in nature felt to be secondary hospital- acquired pneumonia were drained. Repeat computed tomography scan August 13 demonstrated increased right pleural effusion with loculated portions and volume loss. The patient was evaluated by cardiothoracic surgery and the plan is for a VATS procedure. I discussed the case with infectious disease as well and the plan is for pseudocyst drainage in the near future as per Dr. Hicks. A CAT scan performed on 08/09/2017 revealed a 7.5 cm cystic mass in the anterior body of the pancreas. The blood cell count 8.7, hemoglobin 9.2 Patient is currently on meropenem, vancomycin Objective - Vital Signs Vital signs: Vital Signs Temp 99.1 F 08/15/17 08:00 Pulse 94 08/15/17 08:38 Resp 18 08/15/17 08:00 BP 125/74 08/15/17 08:00 Pulse Ox 94 L 08/15/17 08:00 Intake & Output 08/14/17 08/15/17 08/15/17 18:59 06:59 18:59 Intake Total 100 Output Total 200 Balance -200 100 Weight 122.2 kg Intake: Intake, IV Titration 100 Amount Meropenem 1 gm In Sodium 100 Chloride 0.9% 100 ml @ 200 mls/hr IVPB Q8H [facility] Rx#:[id number] Output: Urine 200 Other: Voiding Method Toilet Toilet Urinal Urinal # Voids 1 2 # Bowel Movements 0 0 - Constitutional General appearance: Present: obese - Respiratory Respiratory: bilateral: diminished - Cardiovascular Rhythm: regular Heart sounds: normal: S1, S2 - Gastrointestinal Gastrointestinal Comment(s): Incisions well-healed No guarding or rebound General gastrointestinal: Present: decreased bowel sounds - Labs CBC & Chem 7: 08/15/17 05:22 08/15/17 05:22 Labs: Abnormal Lab Results - Last 24 Hours (Table) 08/15/17 08/15/17 Range/Units 05:22 05:22 RBC 3.36 L (4.30-5.90) m/uL Hgb 9.2 L (13.0-17.5) gm/dL Hct 29.6 L (39.0-53.0) % Sodium 147 H (137-145) mmol/L Chloride 110 H (98-107) mmol/L BUN 7 L (9-20) mg/dL Creatinine 1.50 H (0.66-1.25) mg/dL Calcium 8.1 L (8.4-10.2) mg/dL Alkaline Phosphatase 170 H (38-126) U/L Total Protein 5.3 L (6.3-8.2) g/dL Albumin 2.8 L (3.5-5.0) g/dL Microbiology - Last 24 Hours (Table) 08/11/17 15:20 Gram Stain - Preliminary Pleural Fluid Body Fluid Culture - Preliminary 08/09/17 17:00 Blood Culture - Preliminary Blood No Growth after 120 hours 08/11/17 16:28 Blood Culture - Preliminary Blood No Growth after 72 hours 08/11/17 16:20 Blood Culture - Preliminary Blood No Growth after 72 hours 08/10/17 15:06 Blood Culture - Preliminary Blood No Growth after 96 hours Assessment and Plan Assessment: Impression/plan: 1. Acute and chronic pancreatitis 2. Pancreatic pseudocyst 3. Right-sided pneumonia/pleural effusion 2. Chronic hepatitis C 5. History of drug abuse 6. Major depressive disorder Plan: 1. Operative intervention as per Dr. Sargent 2. Continue IV antibiotic therapy as per infectious disease 3. Probable drainage of pseudocyst per Dr. Royal area in near future
--- NOTE | 2017-08-15 11:59 | P.PN ---
Subjective Progress Note Date: 08/15/17 Juan is a 42-year-old white male patient of Dr. Bandar Camacho who presented to the emergency department on 08/09/2017 at 1438 with complaints of diffuse abdominal pain across the left upper quadrant, fever. Denied any nausea, denied any vomiting, or diarrhea or abdominal distention. Reports poor oral intake. Patient was recently hospitalized for chronic pancreatitis and underwent recent laparoscopic cholecystectomy for acute cholelithiasis on 2017 Dr. Hicks and discharged home on 07/26/2017 on oral antibiotics which the patient has completed. Patient was treated for pancreatitis, and a pancreatic pseudocyst and cholelithiasis. He was seen in the follow-up and an office visit a week ago and was feeling well at that time. The plan was to have an EGD with possible drainage of the pancreatic pseudocyst. 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 CT of abdomen and pelvis with contrast revealed previously seen large cystic mass in the anterior body of the pancreas, with mildly inflamed upper anterior margin, and a new right pleural effusion compared to the prior study. Patient was febrile, with a temp of 101.4F presentation and has been intermittently febrile during this admission. Hemodynamically stable. Tachycardic with a heart rate up to 110 BPM, and tachypneic at times. Lab work on admission showed WBC of 14.5, hemoglobin of 12.1, electrolytes were within normal limits, renal profile was within normal limits, alkaline phosphatase was 207, malaise was 145 which is down from 152 upon discharge on 07/20/2017, lipase was 391. Upon his were negative 3. Urinalysis showed 2+ protein, 1+ nitrites. Patient was given 2 L of IV fluid boluses of 0.9 normal saline in the emergency room, and his maintenance IV fluids were started at 120 ML per hour. Patient was started on Zosyn for antibiotic coverage, he was given IV Toradol and morphine pain control. Patient was seen by general surgery and had an EGD on 08/10/2017, and was found to have mild antral gastritis. There was no visualization of the pancreatic pseudocyst during the procedure. The distal and the proximal esophagus appeared normal. He was then transferred to a regular medical surgical room in stable condition. Patient continued to be intermittently febrile, slightly dyspneic, but in no respiratory distress. Blood cultures were collected and sent, patient was given an additional 1 L of 0.9 normal saline IV bolus, her a total of 3 L of IV 0.9 bolus. Infectious disease service consult was initiated who recommended to continue with Zosyn at this time for antibiotic coverage. Lactic acid was within normal at 1.9. Today's blood work shows WBC of 13.3, hemoglobin of 10.9, INR 1.3, electrolytes and renal profile remained within normal limits. Patient was seen sitting up on the edge of the bed, denying any acute distress. Denied any chest pain, denied any acute dyspnea. Slightly pale and diaphoretic, receiving IV bolus of 0.9 normal saline. Some left upper abdominal tenderness, but abdomen is soft. Chest x-ray was obtained and showed right lower lobe pneumonia versus atelectasis and possible associated effusion. S1 is followed by CT chest without contrast which showed moderately large partially loculated right-sided pleural effusion, areas of compressive atelectasis, or infiltrate. Remote granulomatous changes. Patient is currently on 2 L per nasal cannula with O2 sat 95%, most recent vitals include a temperature of 98.1F, heart rate of 100 bpm, respiratory rate of 18, and blood pressure 119/64. On 08/11/2017 patient is seen in follow-up. He is resting in bed, mildly dyspneic, but in no acute distress. He is diaphoretic, does have some mild chest discomfort on deep inspiration over right posterior chest, lung sounds are diminished over right posterior lobe, and there are bibasilar crackles present. ID service has changed the patient's antibiotics from Zosyn to meropenem, yesterday we added vancomycin. Last fever was on 08/10/2017 at 1444 with a temp of 100.5F, no fevers overnight. Patient is hemodynamically stable , he was fluid resuscitated with 3 L of 0.9 normal saline fluid boluses, and his current IV is 0.9 normal saline at a rate of 120 ML per hour. His abdomen remains diffusely tender over upper bilateral quadrants, as well as the mid abdomen., Denies any nausea vomiting or diarrhea. He is receiving IV morphine pain control. Today's lab work was reviewed, WBC is 12.2, hemoglobin is 10.4, electrolytes within normal limits, BUN is 7, creatinine is 0.68, asthma lactic acid was within normal limits at 1.9, he is voiding. Continue current antibiotic coverage, we will potentially consult with interventional radiology in regards to drainage of his right-sided loculated pleural effusion, which is suspected to be parapneumonic in nature. The patient is seen again today 08/12/2017 in follow-up on the regular medical floor. He is awake and alert. He remains somewhat diaphoretic. Quite dyspneic on minimal exertion. He is maintaining O2 saturations in the low 90s when checked on room air. He's been up and bleeding in the room. He did undergo a ultrasound guided thoracentesis for diagnosis yesterday by IR. Cultures are pending. The fluid was bloody with total protein 4.3 and an LDH of 901. White count today 9.3. Hemoglobin 9.8. Creatinine 1.18. He remains covered with vancomycin and meropenem. On 08/13/2017 patient seen in follow-up. Today's chest x-ray shows increasing right-sided pleural effusion, volume loss and underlying infiltrate. Ultrasound guided right thoracentesis, on 08/11/2017 with drainage of 60 mL of pleural fluid. Urinalysis is consistent with exudative plural effusion secondary to pneumonia. We will obtain CT chest today to assess the loculation of the right pleural fluid. His abdominal pain is improving, although he still has persistent left-sided abdominal discomfort. Has been afebrile over the last 24 hours, and 2 L per nasal cannula O2 sat 96%. Hemodynamically stable. His amylase and lipase are now within normal limits. And accommodation of meropenem and vancomycin, pleural fluid culture is negative for any growth so far, will await the results of the final cultures, blood cultures are negative. Sputum cultures positive for Fidelia albicans and Fidelia glabrata, which is most likely contaminated by oral fortino. Surgery is following, and was discussed with the patient whether he would want to be transferred to a tertiary institution, patient's amylase and lipase are coming down, and his bone pain is improving. On 08/14/2017 and I'm seeing this patient for a follow-up his condition is decompensated significantly over the past few days and the patient got transferred to a telemetry unit. He is doing poorly. He has become progressively more short of breath and the CAT scan of the chest done yesterday showed increasing right-sided pleural effusion along with volume loss and progressive infiltration of the right lung is along with atelectatic changes and some loculation of the right-sided pleural effusion. The findings are consistent withinfection and possible empyema. The pleural fluid that was drained earlier for diagnostic purposes was complicated parapneumonic effusion with elevated LDH and protein in the fluid culture was negative for any bacterial growth. Previous sputum analysis at time of admission showed a combination of Fidelia albicans and glabrata.A subsequent chest x-ray from today shows worsening of the right sided pneumonia/consolidation and there is obvious loculation of the pleural fluid based on the CAT scan findings. I discussed this case with a thoracic surgeon and the patient will be taken to the operating room tomorrow for a video-assisted thoracoscopic evaluation, and possible decortication. I also noted that the patient's renal function has been progressively getting worse. Creatinine is up to 1.6. Stop all nonsteroidal anti-inflammatory medication. Vancomycin level is toxic and this is currently on hold for now. He is also on IV Merrem. Afebrile. Oral intake is diminished specially his underlying pneumonia. No nausea. No vomiting. No significant abdominal pain for now. On 08/15/2017, the patient is quite short of breath. He is uncomfortable even at rest. He is currently on 3 L of oxygen by nasal cannula and his pulse ox is 99%. He is still spiking on and off temperature in the last temperature spike was yesterday evening when he spike a temperature of 101.4. Otherwise, he is nothing by mouth for now and the plan is for this patient to be taken to the operating room for a video-assisted thoracoscopy and possible decortication. He remains on a combination of meropenem and vancomycin. Vanco trough was quite elevated at was toxic and this could've contributed to his acute kidney injury. His creatinine is stable for now and the values at 1.5. Hemoglobin stable at 9.2. White cell count is not elevated. The patient was taken off the nonsteroidal anti-inflammatory medication. This subsequently vancomycin level is down to 20. Otherwise is producing adequate amount of urine output and the patient is being well hydrated. I suspect that he may end up going to the ICU following his thoracic surgery and this will largely depend on his overall progress. I have spoken to this patient at length. I also discussed the case with his mother the bedside. No nausea. No vomiting. No significant abdominal pain. No altered mentation. Objective - Vital Signs Vital signs: Vital Signs Temp 99.1 F 08/15/17 08:00 Pulse 94 08/15/17 08:38 Resp 18 08/15/17 08:00 BP 125/74 08/15/17 08:00 Pulse Ox 94 L 08/15/17 08:00 Intake & Output 08/14/17 08/15/17 08/15/17 18:59 06:59 18:59 Intake Total 100 Output Total 200 Balance -200 100 Weight 122.2 kg Intake: Intake, IV Titration 100 Amount Meropenem 1 gm In Sodium 100 Chloride 0.9% 100 ml @ 200 mls/hr IVPB Q8H [facility] Rx#:[id number] Output: Urine 200 Other: Voiding Method Toilet Toilet Urinal Urinal # Voids 1 2 # Bowel Movements 0 0 - Exam GENERAL EXAM: Alert, pleasant, 42-year-old white male patient, diaphoretic, reporting some diffuse abdominal cramping, over bilateral upper quadrants, and mid abdomen, and the patient is a mild degree of respiratory distress and oxygen 3 L/m nasal cannula. He is obese with a BMI of 38.7. HEAD: Normocephalic/atraumatic. EYES: Normal reaction of pupils, equal size. Conjunctiva pink, sclera white. NOSE: Clear with pink turbinates. THROAT: No erythema or exudates. NECK: No masses, no JVD, no thyroid enlargement, no adenopathy. CHEST: No chest wall deformity. Symmetrical expansion. LUNGS: Diminished breath sounds over right lower lobe, with bibasilar crackles on today's evaluation there is further diminishment of the right lung breath sounds. There is some limited contact in the right lung base. For the most part the right chest is becoming more and more silent. CVS: Regular rate and rhythm, normal S1 and S2, no gallops, no murmurs, no rubs ABDOMEN: Soft, nontender. No hepatosplenomegaly, normal bowel sounds, no guarding or rigidity. EXTREMITIES: No clubbing, no edema, no cyanosis, 2+ pulses and upper and lower extremities. MUSCULOSKELETAL: Muscle strength and tone normal. SPINE: No scoliosis or deformity SKIN: No rashes CENTRAL NERVOUS SYSTEM: Alert and oriented -3. No focal deficits, tone is normal in all 4 extremities. PSYCHIATRIC: Alert and oriented -3. Appropriate affect. Intact judgment and insight. - Labs CBC & Chem 7: 08/15/17 05:22 08/15/17 05:22 Labs: Abnormal Lab Results - Last 24 Hours (Table) 08/15/17 08/15/17 Range/Units 05:22 05:22 RBC 3.36 L (4.30-5.90) m/uL Hgb 9.2 L (13.0-17.5) gm/dL Hct 29.6 L (39.0-53.0) % Sodium 147 H (137-145) mmol/L Chloride 110 H (98-107) mmol/L BUN 7 L (9-20) mg/dL Creatinine 1.50 H (0.66-1.25) mg/dL Calcium 8.1 L (8.4-10.2) mg/dL Alkaline Phosphatase 170 H (38-126) U/L Total Protein 5.3 L (6.3-8.2) g/dL Albumin 2.8 L (3.5-5.0) g/dL Microbiology - Last 24 Hours (Table) 08/11/17 15:20 Gram Stain - Preliminary Pleural Fluid Body Fluid Culture - Preliminary 08/09/17 17:00 Blood Culture - Preliminary Blood No Growth after 120 hours 08/11/17 16:28 Blood Culture - Preliminary Blood No Growth after 72 hours 08/11/17 16:20 Blood Culture - Preliminary Blood No Growth after 72 hours 08/10/17 15:06 Blood Culture - Preliminary Blood No Growth after 96 hours Assessment and Plan Plan: Assessment 1. Right lung pneumonia complicated by development of a parapneumonic effusion which is complicated and possibly there may be a component of empyema. The pleural fluid analysis that was done through a diagnostic thoracentesis showed elevated LDH and protein. Cultures of been negative. The patient has progressive worsening and opacification of the right lung. The patient will be taken to the operating room today for a video-assisted thoracoscopic surgery and possible decortication. He will likely need chest tube insertion and he will likely need postop ICU management should there be any respiratory difficulties following the surgery. He is currently on phase of oxygen nasal cannula. His to having Is a fever. He is on a combination of vancomycin and meropenem. The plan is to proceed with surgery today and I discussed this with the surgeon and with the family at the bedside. 2 acute hypoxic respiratory failure secondary to above 3 episodic fever, multifactorial. This is possibility dripinfection. Cultures obtained previously from a thoracentesis came back negative for any microbial growth. Another source of infection could be a pancreatic cyst. This does not seem to be an infected on clinical grounds. Abdominal exam is soft. 4 chronic pancreatitis with formation of pancreatic pseudocyst, status post EGD 5 status post endoscopic cholecystectomy performed on 07/21/2017 6 hepatitis C viral infection secondary to IV drug use 7 acute kidney injury probably rates to pneumonia and sepsis. Rule out also possibility of vancomycin toxicity. The patient has been taking nonsteroidal anti-inflammatory medications for pain 8 major depression to the [facility] facility December 2016 9 Chronic cholelithiasis status post cholecystectomy 10 Current mild leukocytosis, resolved 11 anemia, mild, stable Plan Continue IV fluids. Keep the patient treats of oxygen nasal cannula. He is nothing by mouth for now. Is awaiting for the surgery. Reviewed his blood work. Creatinine is stable at 1.6. He is producing adequate amount of urine output. We are monitoring the vancomycin trough. Continue IV Merrem. The patient be taken to the operating room for a video-assisted thoracoscopic surgery and decortication. He will likely need chest tube. He will likely need a ICU monitoring following his surgery. This will largely depend on his progress. No active pain. No nausea or vomiting. Monitor fever pattern. Continue to follow.
[2017-08-15] MEDS ORDERED: GLYCOPYRROLATE 0.2 MG/ML 2 ML VIAL ONE (13:17)
[2017-08-15] MEDS ORDERED: LIDOCAINE 1% INJ 10MG/ML (20 ML MDV) ONE (13:17)
[2017-08-15] MEDS ORDERED: NEOSTIGMINE 1 MG/ML 10 ML VIAL ONE (13:17)
[2017-08-15] MEDS ORDERED: fentaNYL (PF) 50 MCG/ML 2 ML AMP ONE (13:17)
[2017-08-15] MEDS ORDERED: PROPOFOL 10 MG/ML 20 ML VIAL IV ONE (13:17)
[2017-08-15] MEDS ORDERED: LACTATED RINGERS 1,000 ML IV ONE ×3 (13:17→14:15)
[2017-08-15] MEDS ORDERED: MIDAZOLAM 2 MG/2 ML VIAL ONE (13:17)
[2017-08-15] MEDS ORDERED: SUCCINYLCHOLINE CHLORIDE 100 MG/5 ML SYR IV ONE (13:17)
[2017-08-15] MEDS ORDERED: VECURONIUM 10 MG VIAL IV ONE (13:17)
[2017-08-15] MEDS ORDERED: BUPIVACAINE (PF) 0.5% 30 ML VIAL SQ ONE (14:15)
[2017-08-15] MEDS ORDERED: IPRATROPIUM-ALBUTEROL 3 ML NEB IH PRN (14:34)
[2017-08-15] MEDS ORDERED: MAGNESIUM HYDROXIDE 2,400 MG/10 ML CUP PO PRN (14:34)
[2017-08-15] MEDS ORDERED: ONDANSETRON 4 MG/2 ML VIAL IVP PRN (14:39)
--- NOTE | 2017-08-15 14:41 | P.OP ---
Date of Procedure: 08/15/17 Preoperative Diagnosis: Multiloculated right pleural effusion Postoperative Diagnosis: Same Procedure(s) Performed: Right thoracoscopic total lung decortication Anesthesia: MUNA Surgeon: Silviano Sargent Biometrics Experimentalist #1: Kieran Phillips Estimated Blood Loss (ml): 20 IV fluids (ml): 500 Urine output (ml): 500 Pathology: other (Right pleural fluid for culture and chemistry and cell count, right pleural content and peel for pathology) Condition: stable Disposition: PACU Indications for Procedure: 42-year-old male who presents with 5 days of shortness of breath. He was noted to have multiloculated right pleural effusion by chest x-ray and computed tomography scan. Thoracoscopic decortication was indicated. Operative Findings: There were multiloculated collections of serous fluid with filmy adhesions covering the entire lung and pleural space. There were no purulent collections. Description of Procedure: The patient was brought to the operating room, placed supine on the operating table, anesthetized and intubated. Double lumen endotracheal tube was positioned with fiberoptic bronchoscopic visualization. Tube was secured. The patient was turned in the left lateral decubitus position. The right chest was sterilely prepped and draped. Initial incision was made in the seventh interspace in the midaxillary line. This was carried down through skin and subcutaneous tissue through the muscle and into the pleural space. There were diffuse adhesions present throughout the pleural space. There were multiloculated collections of fluid. On entering the pleural space, serous pleural fluid exuded from the wound. Finger was used to take down the adhesions in the immediate vicinity of the initial incision and posteriorly. A second incision was made approximately 10 cm anterior to the first and carried into the pleural space. The 2 intrapleural dissections were connected with finger dissection. Thoracoscope was placed through the more posterior port and using gentle dissection with ring forceps adhesions throughout the pleural space were taken down and all the pleural fluid collections were drained. Some intrapleural content was debrided and collected and sent for pathology. Once we had taken down all the adhesions and completely freed the lung of its investing adhesions, 3 chest tubes were placed in the pleural space through separate stab incisions. A 32-Burmese tube was placed anteriorly toward the apex , a 36-Burmese chest tube was placed posteriorly toward the apex, and a 36 right angle tube was placed posteriorly toward the diaphragmatic sulcus. The tubes in place and the lung freed and well drained, bilateral lung ventilation was initiated and good lung expansion was noted. Rib blocks were performed at the level of the incisions with half percent Marcaine posteriorly. Incisions were closed with layers of Vicryl suture. Skin glue dressing were applied and and Band-Aid dressings and drain sponges on the chest tube sites. Chest tubes were connected to Pleur-evac drainage. The patient was turned supine and extubated and transferred to recovery in stable condition.
[2017-08-15 14:52] LABS: Glucose,Whole Blood 90 mg/dL (75-99)
[2017-08-15] MEDS ORDERED: fentaNYL (PF) 50 MCG/ML 2 ML AMP IV ONE (15:15)
[2017-08-15] MEDS ORDERED: fentaNYL (PF) 50 MCG/ML 2 ML AMP IVP ONE (15:30)
[2017-08-15] MEDS ORDERED: MORPHINE SULFATE 4MG/4ML SYRG IVP ONE ×2 (15:45→16:25)
[2017-08-15 15:49] LABS: ABG HCO3 24 mmol/L (21-25); ABG PCO2 52 mmHg (35-45); ABG PH 7.27 (7.35-7.45); ABG PO2 89 mmHg (83-108)
[2017-08-15 15:50] LABS: ABG Base Excess -3.3 mmol/L; ABG TCO2 25 mmol/L (19-24)
--- NOTE | 2017-08-15 16:46 | XR ---
EXAMINATION TYPE: XR chest 1V portable DATE OF EXAM: 08/15/2017 COMPARISON: 08/14/2017 HISTORY: Chest pain TECHNIQUE: Single frontal view of the chest is obtained. FINDINGS: Multiple right-sided chest tubes are in place. No sizable pneumothorax. Improving aeration right upper lobe. Continued large pleural effusion and underlying infiltrate and/o r atelectasis. Left lung is clear. Cardiomediastinal silhouette is stable. IMPRESSION: 1. Improving aeration right upper lobe. 2. Persistent large right-sided pleural effusion and underlying atelectasis and/or infiltrate.
[2017-08-15] MEDS: HYDROmorphone PCA 5 MG/25 ML SYRINGE IV PRN (17:09)
--- NOTE | 2017-08-15 17:12 | PN ---
PROGRESS NOTE SUBJECTIVE: A 42-year-old white male with pleural perfusion, pancreatic pseudocyst, possibly infected. Remains on broad-spectrum IV antibiotics and had right thoracostomy total lung decortication today by Dr. Sargent. Remains on broad-spectrum antibiotics at this time. Cardiovascular S1, S2. Lungs are clear. GI is diffuse tenderness to palpation. Hematology negative Homans. ASSESSMENT: 1. Pleural effusion. 2. Pancreatic pseudocyst. Please see further orders. [place]ibly [place]. Depends on patient's improvement. MMODL / IJN: [id number] /
[2017-08-15] MEDS: IPRATROPIUM-ALBUTEROL 3 ML NEB IH SCH ×2 (19:28→20:09)
[2017-08-15] MEDS: DEXTROSE 5%-0.45% NACL 1,000 ML IV SCH (19:39)
[2017-08-15] MEDS: HEPARIN SODIUM,PORCINE 5,000 UNIT/ML 1 ML VIAL SQ SCH (19:40)
[2017-08-15] MEDS: KETOROLAC 30 MG/ML 1 ML VIAL IVP SCH (19:40)
[2017-08-15] MEDS: MIRTAZAPINE 15 MG TAB PO SCH (21:03)
[2017-08-15] MEDS: SENNOSIDES-DOCUSATE SODIUM 1 EACH TAB PO SCH (21:04)
[2017-08-15 22:21] LABS: Appearance,BF Hazy; Color,BF Yellow; Mononuclear WBC,Body Fluid 36 %; Nucleated Cells, Body Fluid 180 /uL; Polynuclear WBC,Body Fluid 62 %; RBC, Body Fluid 2050 /uL
[2017-08-15 22:25] LABS: Total Protein, Body Fluid 2600 mg/dL
--- NOTE | 2017-08-15 23:34 | PN ---
PROGRESS NOTE DATE OF SERVICE: 08/15/2017 REASON FOR FOLLOW UP: 1. Right-sided multiloculated pleural fluid/empyema. 2. Possible infected pancreatic pseudocyst. INTERVAL HISTORY: The patient is afebrile. The patient is status post VATS procedure today by CT Surgery. The patient tolerated the procedure currently. No complaint of the right lower chest area well controlled with pain medication. No nausea, vomiting, abdominal pain has improved and no diarrhea. EXAMINATION: Blood pressure 122/70 with a pulse of 92, temperature 98.7. He is 96% on 3 L nasal cannula. General description is a middle aged male lying in bed in no distress. RESPIRATORY SYSTEM: Unlabored breathing with decreased breath sounds at the bases. No wheeze. HEART: S1, S2. Regular rate and rhythm. ABDOMEN: Soft, mildly distended. No guarding or rigidity. LABS: Hemoglobin 9.2 with white count 7.7, BUN of 7, creatinine 1.50. Sputum and pleural fluid culture currently pending. DIAGNOSTIC IMPRESSION AND PLAN: Patient admitted to the hospital with fever, abdominal pain with concern for possible infected pancreatic pseudocyst, failed endoscopic drainage with right-sided pleural effusion status post thoracotomy. We are waiting for those cultures to finalize. The patient is currently on meropenem and vancomycin pharmacy to dose. Watching his kidney function closely. The patient has shown improvement compared to yesterday. Continue with supportive care. MMODL / IJN: [id number] / MTDD
[2017-08-16] MEDS: HYDROmorphone PCA 5 MG/25 ML SYRINGE IV PRN ×3 (01:30→18:49)
[2017-08-16] MEDS: KETOROLAC 30 MG/ML 1 ML VIAL IVP SCH ×5 (01:55→23:07)
[2017-08-16] MEDS: SODIUM CHLORIDE 0.9% 1,000 ML IV SCH ×3 (01:55→18:52)
[2017-08-16] MEDS: HEPARIN SODIUM,PORCINE 5,000 UNIT/ML 1 ML VIAL SQ SCH ×5 (01:55→23:09)
[2017-08-16] MEDS: MEROPENEM 1 GM in SODIUM CHLORIDE 0.9% 100 ML IVPB SCH ×3 (06:06→21:09)
[2017-08-16 06:27] LABS: Basophils % (A) 0 %; Eosinophils # (A) 0.4 k/uL (0-0.7); Eosinophils % (A) 5 %; HCT 29.9 % (39.0-53.0); Hypochromasia Moderate; Lymphocytes # (A) 1.1 k/uL (1.0-4.8); Lymphocytes % (A) 14 %; MCH 26.8 pg (25.0-35.0); MCHC 30.2 g/dL (31.0-37.0); MCV 88.8 fL (80.0-100.0); Monocytes # (A) 0.7 k/uL (0-1.0); Monocytes % (A) 9 %; Neutrophils # (A) 5.5 k/uL (1.3-7.7); Neutrophils % (A) 69 %; Platelet Count 264 k/uL (150-450); RBC 3.36 m/uL (4.30-5.90); RDW 13.3 % (11.5-15.5); WBC 7.9 k/uL (3.8-10.6)
[2017-08-16 06:41] LABS: Potassium 3.9 mmol/L (3.5-5.1)
[2017-08-16] MEDS: VANCOMYCIN 2,000 MG in SODIUM CHLORIDE 0.9% 500 ML IVPB SCH (06:45)
[2017-08-16] MEDS: IPRATROPIUM-ALBUTEROL 3 ML NEB IH SCH ×4 (08:05→20:09)
--- NOTE | 2017-08-16 08:24 | XR ---
EXAMINATION TYPE: XR chest 1V DATE OF EXAM: 08/16/2017 COMPARISON: Prior chest x-ray 08/15/2017 HISTORY: Post VATS, right chest tubes TECHNIQUE: Single frontal view of the chest is obtained. FINDINGS: 2 right-sided chest tubes are in place, there is some improvement in aeration, persistent pneumonia noted on the right. Heart size may be accentuated by rotation. No evident pneumothorax. Min imal subcutaneous emphysema IMPRESSION: Suspect some improvement in aeration.
[2017-08-16] MEDS: lamoTRIgine 100 MG TAB PO SCH ×2 (09:33→20:22)
[2017-08-16] MEDS: OLANZapine 5 MG TAB PO SCH (09:33)
[2017-08-16] MEDS: PANTOPRAZOLE 40 MG TABLET PO SCH (09:33)
[2017-08-16] MEDS: HYDROmorphone 2 MG TAB PO PRN (10:18)
[2017-08-16 11:02] VITALS: BMI 38.2
--- NOTE | 2017-08-16 14:40 | P.PN ---
Subjective Progress Note Date: 08/16/17 Principal diagnosis: Multiloculated right pleural effusion, status post right thoracoscopic total lung decortication Juan is a 42-year-old white male patient of Dr. Bandar Camacho who presented to the emergency department on 08/09/2017 at 1438 with complaints of diffuse abdominal pain across the left upper quadrant, fever. Denied any nausea, denied any vomiting, or diarrhea or abdominal distention. Reports poor oral intake. Patient was recently hospitalized for chronic pancreatitis and underwent recent laparoscopic cholecystectomy for acute cholelithiasis on 2017 Dr. Hicks and discharged home on 07/26/2017 on oral antibiotics which the patient has completed. Patient was treated for pancreatitis, and a pancreatic pseudocyst and cholelithiasis. He was seen in the follow-up and an office visit a week ago and was feeling well at that time. The plan was to have an EGD with possible drainage of the pancreatic pseudocyst. 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 CT of abdomen and pelvis with contrast revealed previously seen large cystic mass in the anterior body of the pancreas, with mildly inflamed upper anterior margin, and a new right pleural effusion compared to the prior study. Patient was febrile, with a temp of 101.4F presentation and has been intermittently febrile during this admission. Hemodynamically stable. Tachycardic with a heart rate up to 110 BPM, and tachypneic at times. Lab work on admission showed WBC of 14.5, hemoglobin of 12.1, electrolytes were within normal limits, renal profile was within normal limits, alkaline phosphatase was 207, malaise was 145 which is down from 152 upon discharge on 07/20/2017, lipase was 391. Upon his were negative 3. Urinalysis showed 2+ protein, 1+ nitrites. Patient was given 2 L of IV fluid boluses of 0.9 normal saline in the emergency room, and his maintenance IV fluids were started at 120 ML per hour. Patient was started on Zosyn for antibiotic coverage, he was given IV Toradol and morphine pain control. Patient was seen by general surgery and had an EGD on 08/10/2017, and was found to have mild antral gastritis. There was no visualization of the pancreatic pseudocyst during the procedure. The distal and the proximal esophagus appeared normal. He was then transferred to a regular medical surgical room in stable condition. Patient continued to be intermittently febrile, slightly dyspneic, but in no respiratory distress. Blood cultures were collected and sent, patient was given an additional 1 L of 0.9 normal saline IV bolus, her a total of 3 L of IV 0.9 bolus. Infectious disease service consult was initiated who recommended to continue with Zosyn at this time for antibiotic coverage. Lactic acid was within normal at 1.9. Today's blood work shows WBC of 13.3, hemoglobin of 10.9, INR 1.3, electrolytes and renal profile remained within normal limits. Patient was seen sitting up on the edge of the bed, denying any acute distress. Denied any chest pain, denied any acute dyspnea. Slightly pale and diaphoretic, receiving IV bolus of 0.9 normal saline. Some left upper abdominal tenderness, but abdomen is soft. Chest x-ray was obtained and showed right lower lobe pneumonia versus atelectasis and possible associated effusion. S1 is followed by CT chest without contrast which showed moderately large partially loculated right-sided pleural effusion, areas of compressive atelectasis, or infiltrate. Remote granulomatous changes. Patient is currently on 2 L per nasal cannula with O2 sat 95%, most recent vitals include a temperature of 98.1F, heart rate of 100 bpm, respiratory rate of 18, and blood pressure 119/64. On 08/11/2017 patient is seen in follow-up. He is resting in bed, mildly dyspneic, but in no acute distress. He is diaphoretic, does have some mild chest discomfort on deep inspiration over right posterior chest, lung sounds are diminished over right posterior lobe, and there are bibasilar crackles present. ID service has changed the patient's antibiotics from Zosyn to meropenem, yesterday we added vancomycin. Last fever was on 08/10/2017 at 1444 with a temp of 100.5F, no fevers overnight. Patient is hemodynamically stable , he was fluid resuscitated with 3 L of 0.9 normal saline fluid boluses, and his current IV is 0.9 normal saline at a rate of 120 ML per hour. His abdomen remains diffusely tender over upper bilateral quadrants, as well as the mid abdomen., Denies any nausea vomiting or diarrhea. He is receiving IV morphine pain control. Today's lab work was reviewed, WBC is 12.2, hemoglobin is 10.4, electrolytes within normal limits, BUN is 7, creatinine is 0.68, asthma lactic acid was within normal limits at 1.9, he is voiding. Continue current antibiotic coverage, we will potentially consult with interventional radiology in regards to drainage of his right-sided loculated pleural effusion, which is suspected to be parapneumonic in nature. The patient is seen again today 08/12/2017 in follow-up on the regular medical floor. He is awake and alert. He remains somewhat diaphoretic. Quite dyspneic on minimal exertion. He is maintaining O2 saturations in the low 90s when checked on room air. He's been up and bleeding in the room. He did undergo a ultrasound guided thoracentesis for diagnosis yesterday by IR. Cultures are pending. The fluid was bloody with total protein 4.3 and an LDH of 901. White count today 9.3. Hemoglobin 9.8. Creatinine 1.18. He remains covered with vancomycin and meropenem. On 08/13/2017 patient seen in follow-up. Today's chest x-ray shows increasing right-sided pleural effusion, volume loss and underlying infiltrate. Ultrasound guided right thoracentesis, on 08/11/2017 with drainage of 60 mL of pleural fluid. Urinalysis is consistent with exudative plural effusion secondary to pneumonia. We will obtain CT chest today to assess the loculation of the right pleural fluid. His abdominal pain is improving, although he still has persistent left-sided abdominal discomfort. Has been afebrile over the last 24 hours, and 2 L per nasal cannula O2 sat 96%. Hemodynamically stable. His amylase and lipase are now within normal limits. And accommodation of meropenem and vancomycin, pleural fluid culture is negative for any growth so far, will await the results of the final cultures, blood cultures are negative. Sputum cultures positive for Fidelia albicans and Fidelia glabrata, which is most likely contaminated by oral fortino. Surgery is following, and was discussed with the patient whether he would want to be transferred to a tertiary institution, patient's amylase and lipase are coming down, and his bone pain is improving. On 08/14/2017 and I'm seeing this patient for a follow-up his condition is decompensated significantly over the past few days and the patient got transferred to a telemetry unit. He is doing poorly. He has become progressively more short of breath and the CAT scan of the chest done yesterday showed increasing right-sided pleural effusion along with volume loss and progressive infiltration of the right lung is along with atelectatic changes and some loculation of the right-sided pleural effusion. The findings are consistent withinfection and possible empyema. The pleural fluid that was drained earlier for diagnostic purposes was complicated parapneumonic effusion with elevated LDH and protein in the fluid culture was negative for any bacterial growth. Previous sputum analysis at time of admission showed a combination of Fidelia albicans and glabrata.A subsequent chest x-ray from today shows worsening of the right sided pneumonia/consolidation and there is obvious loculation of the pleural fluid based on the CAT scan findings. I discussed this case with a thoracic surgeon and the patient will be taken to the operating room tomorrow for a video-assisted thoracoscopic evaluation, and possible decortication. I also noted that the patient's renal function has been progressively getting worse. Creatinine is up to 1.6. Stop all nonsteroidal anti-inflammatory medication. Vancomycin level is toxic and this is currently on hold for now. He is also on IV Merrem. Afebrile. Oral intake is diminished specially his underlying pneumonia. No nausea. No vomiting. No significant abdominal pain for now. On 08/15/2017, the patient is quite short of breath. He is uncomfortable even at rest. He is currently on 3 L of oxygen by nasal cannula and his pulse ox is 99%. He is still spiking on and off temperature in the last temperature spike was yesterday evening when he spike a temperature of 101.4. Otherwise, he is nothing by mouth for now and the plan is for this patient to be taken to the operating room for a video-assisted thoracoscopy and possible decortication. He remains on a combination of meropenem and vancomycin. Vanco trough was quite elevated at was toxic and this could've contributed to his acute kidney injury. His creatinine is stable for now and the values at 1.5. Hemoglobin stable at 9.2. White cell count is not elevated. The patient was taken off the nonsteroidal anti-inflammatory medication. This subsequently vancomycin level is down to 20. Otherwise is producing adequate amount of urine output and the patient is being well hydrated. I suspect that he may end up going to the ICU following his thoracic surgery and this will largely depend on his overall progress. I have spoken to this patient at length. I also discussed the case with his mother the bedside. No nausea. No vomiting. No significant abdominal pain. No altered mentation. Reevaluated today on 08/16/2017, patient is doing relatively well, off oxygen, relatively asymptomatic, his chest x-ray continues to show significant right lower lobe consolidation. But overall there has been significant improvement since his surgery there is no evidence of pneumothorax. There is minimal subcutaneous emphysema. Pathology from the decortication is still pending. CBC is relatively normal and his basic metabolic profile is showing improvement in his creatinine down to 1.40. Sodium is a bit improved at 146 today. Objective - Vital Signs Vital signs: Vital Signs Temp 99 F 08/16/17 04:00 Pulse 96 08/16/17 12:54 Resp 19 08/16/17 04:00 BP 129/70 08/16/17 04:00 Pulse Ox 95 08/16/17 04:00 Intake & Output 08/15/17 08/16/17 08/16/17 18:59 06:59 18:59 Intake Total 960 500 480 Output Total 575 1350 Balance 385 -850 480 Weight 121.1 kg Intake: IV 600 Oral 360 500 480 Output: Chest Tube Drainage 450 right lateral 140 right medial y-connection 310 Urine 550 900 Estimated Blood Loss 25 Other: Voiding Method Urinal # Voids 2 1 # Bowel Movements 0 - Exam GENERAL EXAM: Alert, pleasant, 42-year-old white male patient, pleasant, in no form of respiratory distress. HEAD: Normocephalic/atraumatic. EYES: Normal reaction of pupils, equal size. Conjunctiva pink, sclera white. NOSE: Clear with pink turbinates. THROAT: No erythema or exudates. NECK: No masses, no JVD, no thyroid enlargement, no adenopathy. CHEST: No chest wall deformity. Symmetrical expansion. LUNGS: Diminished breath sounds over right lower lobe, with bibasilar crackles on today's evaluation there is further diminishment of the right lung breath sounds. Right sided chest tube was noted. CVS: Regular rate and rhythm, normal S1 and S2, no gallops, no murmurs, no rubs ABDOMEN: Soft, nontender. No hepatosplenomegaly, normal bowel sounds, no guarding or rigidity. EXTREMITIES: No clubbing, no edema, no cyanosis, 2+ pulses and upper and lower extremities. MUSCULOSKELETAL: Muscle strength and tone normal. SPINE: No scoliosis or deformity SKIN: No rashes CENTRAL NERVOUS SYSTEM: Alert and oriented -3. No focal deficits, tone is normal in all 4 extremities. PSYCHIATRIC: Alert and oriented -3. Appropriate affect. Intact judgment and insight. - Labs CBC & Chem 7: 08/16/17 05:45 08/16/17 05:45 Labs: Abnormal Lab Results - Last 24 Hours (Table) 08/15/17 08/16/17 08/16/17 Range/Units 15:30 05:45 05:45 RBC 3.36 L (4.30-5.90) m/uL Hgb 9.0 L (13.0-17.5) gm/dL Hct 29.9 L (39.0-53.0) % MCHC 30.2 L (31.0-37.0) g/dL ABG pH 7.27 L (7.35-7.45) ABG pCO2 52 H (35-45) mmHg ABG Total CO2 25 H (19-24) mmol/L Sodium 146 H (137-145) mmol/L Chloride 109 H (98-107) mmol/L Creatinine 1.40 H (0.66-1.25) mg/dL Glucose 107 H (74-99) mg/dL Calcium 8.0 L (8.4-10.2) mg/dL Microbiology - Last 24 Hours (Table) 08/15/17 14:30 Gram Stain - Preliminary Pleural Fluid Body Fluid Culture - Preliminary 08/15/17 14:30 Gram Stain - Preliminary Pleural Fluid Tissue Culture - Preliminary 08/15/17 14:30 Acid Fast Bacilli Culture - Preliminary Pleural Fluid 08/15/17 14:30 Fungal Culture - Preliminary Pleural Fluid 08/15/17 14:30 Fungal Culture - Preliminary Pleural Fluid 08/15/17 14:30 Acid Fast Bacilli Culture - Preliminary Pleural Fluid 08/15/17 14:30 Anaerobic Culture - Preliminary Pleural Fluid 08/15/17 14:30 Anaerobic Culture - Preliminary Pleural Fluid 08/11/17 15:20 Anaerobic Culture - Final Pleural Fluid 08/11/17 15:20 Gram Stain - Final Pleural Fluid Body Fluid Culture - Final 08/09/17 17:00 Blood Culture - Final Blood No Growth after 144 hours 08/11/17 16:28 Blood Culture - Preliminary Blood No Growth after 96 hours 08/11/17 16:20 Blood Culture - Preliminary Blood No Growth after 96 hours 08/10/17 15:06 Blood Culture - Preliminary Blood No Growth after 120 hours Assessment and Plan Assessment: 1. Right lung pneumonia complicated by development of a parapneumonic effusion which is complicated and possibly there may be a component of empyema. The pleural fluid analysis that was done through a diagnostic thoracentesis showed elevated LDH and protein. Cultures of been negative. The patient has progressive worsening and opacification of the right lung. Patient is status post decortication, pathology from the pleural effusion is pending and pathology from the pleural tissue is pending. 2 acute hypoxic respiratory failure secondary to above 3 episodic fever, multifactorial. However is most likely related to his loculated pleural effusion/empyema. 4 chronic pancreatitis with formation of pancreatic pseudocyst, . that is also another contributing factor to intermittent fever. 5 status post endoscopic cholecystectomy performed on 07/21/2017 6 hepatitis C viral infection secondary to IV drug use 7 acute kidney injury probably rates to pneumonia and sepsis. Rule out also possibility of vancomycin toxicity. The patient has been taking nonsteroidal anti-inflammatory medications for pain 8 major depression to the mental health facility December 2016 9 Chronic cholelithiasis status post cholecystectomy 10 Current mild leukocytosis, resolved 11 anemia, mild, stable Plan: Continue present treatment plan, continue incentive spirometry, clinically the patient is doing great compared to the last few days. Time with Patient: Less than 30
--- NOTE | 2017-08-16 15:14 | P.PN ---
Subjective Progress Note Date: 08/16/17 Principal diagnosis: Multiloculated right pleural effusion, chronic pancreatitis, COPD, seizure disorder, hepatitis C, bipolar disorder, current tobacco dependence, previous IV drug abuse as well as prescription drug abuse, ERCP at [facility] 6 months ago, and history of cholecystectomy on 07/22/2017. POD #1 right thoracoscopic total lung decortication. Patient is sitting up to the bedside chair. He is in no acute distress. He is alert and oriented 3. He states his pain is well controlled with the Dilaudid UNBUNDLER. His oxygen saturations are 96% on 2 L nasal cannula. He is achieving 750 mL on his incentive spirometry. Objective - Vital Signs Vital signs: Vital Signs Temp 99 F 08/16/17 04:00 Pulse 96 08/16/17 12:54 Resp 19 08/16/17 04:00 BP 129/70 08/16/17 04:00 Pulse Ox 95 08/16/17 04:00 Intake & Output 08/15/17 08/16/17 08/16/17 18:59 06:59 18:59 Intake Total 960 500 480 Output Total 575 1350 Balance 385 -850 480 Weight 121.1 kg Intake: IV 600 Oral 360 500 480 Output: Chest Tube Drainage 450 right lateral 140 right medial y-connection 310 Urine 550 900 Estimated Blood Loss 25 Other: Voiding Method Urinal # Voids 2 1 # Bowel Movements 0 - Constitutional General appearance: Present: cooperative, no acute distress, obese - Respiratory Details: Lungs sounds essentially with few scattered crackles to his right lobe and left lobes, diminished to his right lower lobe. Respirations are symmetrical and nonlabored. Right pleural chest tubes to low continuous wall suction -20 cm H2O. No air leak is present. His chest tubes are draining thin serosanguineous drainage. His right anterior chest tubes with 80 mL output in the last 8 hours, 250 mL output since surgery. His right posterior chest tubes with 220 mL output in the last 8 hours, 600 mL output since surgery. Oxygen saturation are 96% on 2 L nasal cannula. He is achieving 750 mL on his incentive spirometry. - Cardiovascular Details: Regular rhythm and rate. S1 and S2 present, negative for S3, gallop or murmur. Remote telemetry showing sinus tachycardia heart rate 102. +1 edema to his bilateral lower extremities. Knee-high sequential compression devices in place to his bilateral lower extremities. - Gastrointestinal Gastrointestinal Comment(s): Abdomen is soft, nontender and nondistended. Obese. Hypoactive bowel sounds all 4 abdominal quadrants. Tolerating oral intake. Passing flatus. - Genitourinary Genitourinary Comment(s): Voiding clear celeste urine. Adequate urine output. 900 mL output in the last 8 hours. - Integumentary Integumentary Comment(s): Skin is warm and dry. No clubbing or cyanosis present. Right chest incisions clean dry and approximated. No drainage or redness present. - Neurologic Neurologic: Present: CNII-XII intact - Musculoskeletal Musculoskeletal: Present: gait normal, strength equal bilaterally - Psychiatric Psychiatric: Present: A&O x's 3, appropriate affect, intact judgment & insight - Allied health notes Allied health notes reviewed: nursing - Labs CBC & Chem 7: 08/16/17 05:45 08/16/17 05:45 Labs: Abnormal Lab Results - Last 24 Hours (Table) 08/15/17 08/16/17 08/16/17 Range/Units 15:30 05:45 05:45 RBC 3.36 L (4.30-5.90) m/uL Hgb 9.0 L (13.0-17.5) gm/dL Hct 29.9 L (39.0-53.0) % MCHC 30.2 L (31.0-37.0) g/dL ABG pH 7.27 L (7.35-7.45) ABG pCO2 52 H (35-45) mmHg ABG Total CO2 25 H (19-24) mmol/L Sodium 146 H (137-145) mmol/L Chloride 109 H (98-107) mmol/L Creatinine 1.40 H (0.66-1.25) mg/dL Glucose 107 H (74-99) mg/dL Calcium 8.0 L (8.4-10.2) mg/dL Microbiology - Last 24 Hours (Table) 08/15/17 14:30 Gram Stain - Preliminary Pleural Fluid Body Fluid Culture - Preliminary 08/15/17 14:30 Gram Stain - Preliminary Pleural Fluid Tissue Culture - Preliminary 08/15/17 14:30 Acid Fast Bacilli Culture - Preliminary Pleural Fluid 08/15/17 14:30 Fungal Culture - Preliminary Pleural Fluid 08/15/17 14:30 Fungal Culture - Preliminary Pleural Fluid 08/15/17 14:30 Acid Fast Bacilli Culture - Preliminary Pleural Fluid 08/15/17 14:30 Anaerobic Culture - Preliminary Pleural Fluid 08/15/17 14:30 Anaerobic Culture - Preliminary Pleural Fluid 08/11/17 15:20 Anaerobic Culture - Final Pleural Fluid 08/11/17 15:20 Gram Stain - Final Pleural Fluid Body Fluid Culture - Final 08/09/17 17:00 Blood Culture - Final Blood No Growth after 144 hours 08/11/17 16:28 Blood Culture - Preliminary Blood No Growth after 96 hours 08/11/17 16:20 Blood Culture - Preliminary Blood No Growth after 96 hours 08/10/17 15:06 Blood Culture - Preliminary Blood No Growth after 120 hours - Imaging and Cardiology Chest x-ray: report reviewed, image reviewed Assessment and Plan (1) Abdominal pain Current Visit: Yes Status: Acute Code(s): R10.9 - UNSPECIFIED ABDOMINAL PAIN SNOMED Code(s): 70430407 (2) Fever Current Visit: Yes Status: Acute Code(s): R50.9 - FEVER, UNSPECIFIED SNOMED Code(s): 503756078 (3) Pancreatic pseudocyst Current Visit: Yes Status: Acute Code(s): K86.3 - PSEUDOCYST OF PANCREAS SNOMED Code(s): 202275105 (4) Pleural effusion Current Visit: Yes Status: Acute Code(s): J90 - PLEURAL EFFUSION, NOT ELSEWHERE CLASSIFIED SNOMED Code(s): 99843786 (5) Obesity (BMI 30-39.9) Current Visit: Yes Status: Chronic Code(s): E66.9 - OBESITY, UNSPECIFIED SNOMED Code(s): 157311045 (6) History of hepatitis C Current Visit: No Status: Resolved Code(s): Z86.19 - PERSONAL HISTORY OF OTHER INFECTIOUS AND PARASITIC DISEASES SNOMED Code(s): 45672189467390 Plan: 1. We will place his chest tubes to water seal. 2. Encourage use of his incentive spirometry every hour while awake. Dr. Finley for pulmonary management recommendations. 3. Pain control per when necessary orders, continue UNBUNDLER pump. 4. Monitor daily chest x-rays. 5. Medical management recommendations per primary care service. 6. Out of bed for all meals, increase activity as tolerated. 7. More recommendations to follow based on the patient's clinical course. Time with Patient: Greater than 30
--- NOTE | 2017-08-16 16:29 | P.PN ---
Progress Note - Text Progress Note Date: 08/16/17 The patient is resting comfortably in his bed. He underwent right lung decortication over the weekend. He denies any significant abdominal pain. On exam is lesser stable. His evidence soft. The patient is healing from his right lung decortication. We will plan for outpatient treatment of his pancreatic pseudocyst. When he is stable we will consider laparoscopic cyst gastrostomy for internal drainage of a pseudocyst.
[2017-08-16] MEDS: DEXTROSE 5%-0.45% NACL 1,000 ML IV SCH (17:31)
[2017-08-16] MEDS: SENNOSIDES-DOCUSATE SODIUM 1 EACH TAB PO SCH (20:22)
[2017-08-16] MEDS: MIRTAZAPINE 15 MG TAB PO SCH (20:22)
[2017-08-16] MEDS: ACETAMINOPHEN TAB 325 MG TAB PO PRN (21:22)
--- NOTE | 2017-08-16 21:44 | PN ---
PROGRESS NOTE SUBJECTIVE: Llcym-com-wpcz-old white male, postoperative fever, pancreatitis. He is feeling better, status post thoracotomy, drainage. CARDIOVASCULAR: S1, S2. LUNGS: Clear. GI: Soft. HEMATOLOGY: Negative Homans. PSYCH: Fair mood and affect. Pancreatic cirrhosis. Thoracotomy, status post right lung decortication. Drainage of pancreatic cirrhosis. Otherwise once he is clear, he will have to go to a rehab center for future treatment because he is too weak to go home, he states. Will try to get him into a rehab center this week. Right lung pneumonia complicated with parapneumonic effusion, possible empyema. Hypoxemic respiratory failure. Empyema versus pancreatic pseudocyst with fevers. Chronic pancreatitis, cirrhosis, hepatitis C infection. Acute renal injury. Depression. Bipolar. Anemia. Continue postoperative thoracotomy care and skilled nursing placement. will send him to a rehab placement until he gets pancreatic pseudocyst drained. MMODL / IJN: [id number] /
--- NOTE | 2017-08-16 22:34 | PN ---
PROGRESS NOTE DATE OF SERVICE: 08/16/2017 REASON FOR FOLLOWUP: 1. Right-sided empyema, status post VATS procedure. 2. Pancreatic pseudocyst. INTERVAL HISTORY: The patient is afebrile. He seems to be breathing more comfortably. Chest pain is currently controlled. No nausea, vomiting. Abdominal pain has improved. No diarrhea. PHYSICAL EXAMINATION: Blood pressure is 133/75, pulse 101, temperature 97. He is 94% on room air. General description is a middle-aged male up in the chair in no distress. RESPIRATORY SYSTEM: Unlabored breathing with decreased breath sounds in the base. No wheeze. HEART: S1, S2. Regular rate and rhythm. ABDOMEN: Soft. No tenderness. No guarding or rigidity. LABS: Hemoglobin is 9, white count 7.9, BUN of 10, creatinine 1.40. Pleural fluid cultures are so far pending. DIAGNOSTIC IMPRESSION AND PLAN: Patient with right-sided pneumonia with parapneumonic effusion, multi-loculated, status post VATS procedure. While waiting for the culture to finalize, keep the patient on meropenem and vancomycin, watching his kidney function very closely. Continue with supportive care. MMODL / IJN: [id number] /
[2017-08-17] MEDS: MEROPENEM 1 GM in SODIUM CHLORIDE 0.9% 100 ML IVPB SCH ×3 (06:03→22:08)
[2017-08-17] MEDS: SODIUM CHLORIDE 0.9% 1,000 ML IV SCH (06:03)
[2017-08-17 06:04] LABS: Basophils % (A) 0 %; Eosinophils # (A) 0.6 k/uL (0-0.7); Eosinophils % (A) 7 %; HCT 29.9 % (39.0-53.0); Hypochromasia Moderate; Lymphocytes # (A) 1.1 k/uL (1.0-4.8); Lymphocytes % (A) 15 %; MCHC 29.9 g/dL (31.0-37.0); Mean Platelet Volume 8.8; Monocytes # (A) 0.6 k/uL (0-1.0); Monocytes % (A) 8 %; Neutrophils # (A) 5.1 k/uL (1.3-7.7); Neutrophils % (A) 68 %; Platelet Count 248 k/uL (150-450); RBC 3.44 m/uL (4.30-5.90); RDW 13.8 % (11.5-15.5); WBC 7.6 k/uL (3.8-10.6)
[2017-08-17] MEDS: HYDROmorphone PCA 5 MG/25 ML SYRINGE IV PRN (06:04)
[2017-08-17 06:13] LABS: Albumin 2.6 g/dL (3.5-5.0); Potassium 3.8 mmol/L (3.5-5.1); Total Bilirubin 0.3 mg/dL (0.2-1.3)
[2017-08-17] MEDS: KETOROLAC 30 MG/ML 1 ML VIAL IVP SCH ×3 (06:33→17:32)
[2017-08-17] MEDS: PANTOPRAZOLE 40 MG TABLET PO SCH (06:34)
[2017-08-17] MEDS: VANCOMYCIN 2,000 MG in SODIUM CHLORIDE 0.9% 500 ML IVPB SCH (06:56)
[2017-08-17] MEDS: HEPARIN SODIUM,PORCINE 5,000 UNIT/ML 1 ML VIAL SQ SCH ×3 (07:53→23:20)
[2017-08-17] MEDS: lamoTRIgine 100 MG TAB PO SCH ×2 (07:53→20:17)
[2017-08-17] MEDS: OLANZapine 5 MG TAB PO SCH (07:53)
[2017-08-17] MEDS: ACETAMINOPHEN TAB 325 MG TAB PO PRN (07:58)
--- NOTE | 2017-08-17 08:40 | XR ---
EXAMINATION TYPE: XR chest 1V portable DATE OF EXAM: 08/17/2017 COMPARISON: 08/16/2017 HISTORY: Postoperative changes TECHNIQUE: Single frontal view of the chest is obtained. FINDINGS: Right-sided consolidation and pleural effusion noted. 2 right-sided chest tube seen with s ubcutaneous emphysema. Left lung clear. Heart is prominent. Mild central interstitial changes noted. Rib deformities on the right appear stable. IMPRESSION: 1. Stable right-sided consolidation and pleural effusion.
[2017-08-17] MEDS: IPRATROPIUM-ALBUTEROL 3 ML NEB IH SCH ×4 (08:42→19:53)
[2017-08-17] MEDS: HYDROmorphone 2 MG TAB PO PRN ×3 (10:08→23:06)
--- NOTE | 2017-08-17 11:55 | P.PN ---
Subjective Progress Note Date: 08/17/17 Principal diagnosis: Loculated right-sided pleural effusion. Previous medical history of chronic pancreatitis, COPD, seizure disorder, hepatitis C, bipolar disorder, current tobacco dependence, previous IV drug abuse as well as prescription drug abuse, ERCP 6 months ago, cholecystectomy on July 22. POD #2 right thoracoscopic total lung decortication Patient is currently laying in bed in no acute distress. States pain is well controlled on ordered medications. Denies shortness of breath. Objective - Vital Signs Vital signs: Vital Signs Temp 98.2 F 08/17/17 08:00 Pulse 98 08/17/17 08:00 Resp 18 08/17/17 08:00 BP 133/72 08/17/17 08:00 Pulse Ox 97 08/17/17 08:46 Intake & Output 08/16/17 08/17/17 08/17/17 18:59 06:59 18:59 Intake Total 720 240 Output Total 110 125 Balance 610 115 Weight 121.1 kg 123.2 kg Intake: Oral 720 240 Output: Chest Tube Drainage 110 125 right lateral 80 75 right medial y-connection 30 50 Other: Voiding Method Urinal Urinal Urinal # Voids 1 0 # Bowel Movements 0 - Constitutional General appearance: Present: cooperative, no acute distress, obese - Respiratory Details: Lungs sounds diminished bilaterally, right greater than left. Respirations even , nonlabored. Currently on 2 L nasal cannula with oxygen saturation 97%. Achieving 1000 mL on his incentive spirometry. Anterior right pleural chest tubes to water seal, 100 mL serous drainage in the last 24 hours. Posterior right pleural chest tubes to water seal, 200 mL serous drainage in the last 24 hours. No air leaks present. - Cardiovascular Details: S1, S2 present. Regular rate and rhythm, sinus rhythm on telemetry. Palpable peripheral pulses bilaterally. No edema present. No calf pain or tenderness noted. - Gastrointestinal Gastrointestinal Comment(s): Abdomen soft, nontender, nondistended. Active bowel sounds 4 quadrants. Tolerating diet. - Genitourinary Genitourinary Comment(s): Continues to void yellow urine. - Integumentary Integumentary Comment(s): Skin is warm and dry with evidence of good perfusion. Right chest tube sites covered with dry intact dressing. Multiple tattoos present. - Neurologic Neurologic: Present: CNII-XII intact - Musculoskeletal Musculoskeletal: Present: gait normal, strength equal bilaterally - Psychiatric Psychiatric: Present: A&O x's 3, appropriate affect, intact judgment & insight - Allied health notes Allied health notes reviewed: nursing - Labs CBC & Chem 7: 08/17/17 05:28 08/17/17 05:28 Labs: Abnormal Lab Results - Last 24 Hours (Table) 08/17/17 08/17/17 Range/Units 05:28 05:28 RBC 3.44 L (4.30-5.90) m/uL Hgb 9.0 L (13.0-17.5) gm/dL Hct 29.9 L (39.0-53.0) % MCHC 29.9 L (31.0-37.0) g/dL Sodium 147 H (137-145) mmol/L Chloride 110 H (98-107) mmol/L Creatinine 1.49 H (0.66-1.25) mg/dL Glucose 110 H (74-99) mg/dL Calcium 8.0 L (8.4-10.2) mg/dL ALT 17 L (21-72) U/L Alkaline Phosphatase 147 H (38-126) U/L Total Protein 5.0 L (6.3-8.2) g/dL Albumin 2.6 L (3.5-5.0) g/dL Microbiology - Last 24 Hours (Table) 08/15/17 14:30 Acid Fast Bacilli Smear - Final Pleural Fluid Acid Fast Bacilli Culture - Preliminary 08/15/17 14:30 Acid Fast Bacilli Smear - Final Pleural Fluid Acid Fast Bacilli Culture - Preliminary 08/11/17 16:28 Blood Culture - Preliminary Blood No Growth after 120 hours 08/11/17 16:20 Blood Culture - Preliminary Blood No Growth after 120 hours 08/15/17 14:30 Gram Stain - Preliminary Pleural Fluid Tissue Culture - Preliminary 08/10/17 15:06 Blood Culture - Final Blood No Growth after 144 hours 08/15/17 14:30 Gram Stain - Preliminary Pleural Fluid Body Fluid Culture - Preliminary - Imaging and Cardiology Chest x-ray: report reviewed, image reviewed Assessment and Plan (1) Abdominal pain Current Visit: Yes Status: Acute Code(s): R10.9 - UNSPECIFIED ABDOMINAL PAIN SNOMED Code(s): 20368122 (2) Pancreatic pseudocyst Current Visit: Yes Status: Acute Code(s): K86.3 - PSEUDOCYST OF PANCREAS SNOMED Code(s): 311850816 (3) Pleural effusion Current Visit: Yes Status: Acute Code(s): J90 - PLEURAL EFFUSION, NOT ELSEWHERE CLASSIFIED SNOMED Code(s): 96005961 (4) Fever Current Visit: Yes Status: Acute Code(s): R50.9 - FEVER, UNSPECIFIED SNOMED Code(s): 722767684 (5) Pancreatitis Current Visit: Yes Status: Chronic Code(s): K85.90 - ACUTE PANCREATITIS WITHOUT NECROSIS OR INFECTION, UNSP SNOMED Code(s): 20983773 (6) History of hepatitis C Current Visit: No Status: Resolved Code(s): Z86.19 - PERSONAL HISTORY OF OTHER INFECTIOUS AND PARASITIC DISEASES SNOMED Code(s): 41816745983118 (7) Obesity (BMI 30-39.9) Current Visit: Yes Status: Chronic Code(s): E66.9 - OBESITY, UNSPECIFIED SNOMED Code(s): 505427028 Plan: 1. Right anterior chest tubes discontinued. Will continue posterior chest tubes for the 24 hours, monitor for air leak and drainage amount. 2. Encourage incentive spirometry use 10 times every hour while awake. Wean O2 as tolerated. Encourage smoking cessation. 3. Continue IV antibiotics per infectious disease. 4. Discontinue DOVETAILER pump. Pain management with oral medications. 5. Medical comorbidities to be managed his primary care, pulmonology, general surgery. 6. Increase activity, ambulate in hallway as tolerated. 7. More recommendations to follow. Time with Patient: Greater than 30
--- NOTE | 2017-08-17 12:01 | P.PN ---
Subjective Progress Note Date: 08/17/17 Principal diagnosis: Right-sided loculated pleural effusion, likely a parapneumonic effusion secondary to hospital-acquired pneumonia versus aspiration pneumoniaVale Martinez is a 42-year-old white male patient of Dr. Bandar Camacho who presented to the emergency department on 08/09/2017 at 1438 with complaints of diffuse abdominal pain across the left upper quadrant, fever. Denied any nausea, denied any vomiting, or diarrhea or abdominal distention. Reports poor oral intake. Patient was recently hospitalized for chronic pancreatitis and underwent recent laparoscopic cholecystectomy for acute cholelithiasis on 2017 Dr. Hicks and discharged home on 07/26/2017 on oral antibiotics which the patient has completed. Patient was treated for pancreatitis, and a pancreatic pseudocyst and cholelithiasis. He was seen in the follow-up and an office visit a week ago and was feeling well at that time. The plan was to have an EGD with possible drainage of the pancreatic pseudocyst. 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 CT of abdomen and pelvis with contrast revealed previously seen large cystic mass in the anterior body of the pancreas, with mildly inflamed upper anterior margin, and a new right pleural effusion compared to the prior study. Patient was febrile, with a temp of 101.4F presentation and has been intermittently febrile during this admission. Hemodynamically stable. Tachycardic with a heart rate up to 110 BPM, and tachypneic at times. Lab work on admission showed WBC of 14.5, hemoglobin of 12.1, electrolytes were within normal limits, renal profile was within normal limits, alkaline phosphatase was 207, malaise was 145 which is down from 152 upon discharge on 07/20/2017, lipase was 391. Upon his were negative 3. Urinalysis showed 2+ protein, 1+ nitrites. Patient was given 2 L of IV fluid boluses of 0.9 normal saline in the emergency room, and his maintenance IV fluids were started at 120 ML per hour. Patient was started on Zosyn for antibiotic coverage, he was given IV Toradol and morphine pain control. Patient was seen by general surgery and had an EGD on 08/10/2017, and was found to have mild antral gastritis. There was no visualization of the pancreatic pseudocyst during the procedure. The distal and the proximal esophagus appeared normal. He was then transferred to a regular medical surgical room in stable condition. Patient continued to be intermittently febrile, slightly dyspneic, but in no respiratory distress. Blood cultures were collected and sent, patient was given an additional 1 L of 0.9 normal saline IV bolus, her a total of 3 L of IV 0.9 bolus. Infectious disease service consult was initiated who recommended to continue with Zosyn at this time for antibiotic coverage. Lactic acid was within normal at 1.9. Today's blood work shows WBC of 13.3, hemoglobin of 10.9, INR 1.3, electrolytes and renal profile remained within normal limits. Patient was seen sitting up on the edge of the bed, denying any acute distress. Denied any chest pain, denied any acute dyspnea. Slightly pale and diaphoretic, receiving IV bolus of 0.9 normal saline. Some left upper abdominal tenderness, but abdomen is soft. Chest x-ray was obtained and showed right lower lobe pneumonia versus atelectasis and possible associated effusion. S1 is followed by CT chest without contrast which showed moderately large partially loculated right-sided pleural effusion, areas of compressive atelectasis, or infiltrate. Remote granulomatous changes. Patient is currently on 2 L per nasal cannula with O2 sat 95%, most recent vitals include a temperature of 98.1F, heart rate of 100 bpm, respiratory rate of 18, and blood pressure 119/64. On 08/11/2017 patient is seen in follow-up. He is resting in bed, mildly dyspneic, but in no acute distress. He is diaphoretic, does have some mild chest discomfort on deep inspiration over right posterior chest, lung sounds are diminished over right posterior lobe, and there are bibasilar crackles present. ID service has changed the patient's antibiotics from Zosyn to meropenem, yesterday we added vancomycin. Last fever was on 08/10/2017 at 1444 with a temp of 100.5F, no fevers overnight. Patient is hemodynamically stable , he was fluid resuscitated with 3 L of 0.9 normal saline fluid boluses, and his current IV is 0.9 normal saline at a rate of 120 ML per hour. His abdomen remains diffusely tender over upper bilateral quadrants, as well as the mid abdomen., Denies any nausea vomiting or diarrhea. He is receiving IV morphine pain control. Today's lab work was reviewed, WBC is 12.2, hemoglobin is 10.4, electrolytes within normal limits, BUN is 7, creatinine is 0.68, asthma lactic acid was within normal limits at 1.9, he is voiding. Continue current antibiotic coverage, we will potentially consult with interventional radiology in regards to drainage of his right-sided loculated pleural effusion, which is suspected to be parapneumonic in nature. The patient is seen again today 08/12/2017 in follow-up on the regular medical floor. He is awake and alert. He remains somewhat diaphoretic. Quite dyspneic on minimal exertion. He is maintaining O2 saturations in the low 90s when checked on room air. He's been up and bleeding in the room. He did undergo a ultrasound guided thoracentesis for diagnosis yesterday by IR. Cultures are pending. The fluid was bloody with total protein 4.3 and an LDH of 901. White count today 9.3. Hemoglobin 9.8. Creatinine 1.18. He remains covered with vancomycin and meropenem. On 08/13/2017 patient seen in follow-up. Today's chest x-ray shows increasing right-sided pleural effusion, volume loss and underlying infiltrate. Ultrasound guided right thoracentesis, on 08/11/2017 with drainage of 60 mL of pleural fluid. Urinalysis is consistent with exudative plural effusion secondary to pneumonia. We will obtain CT chest today to assess the loculation of the right pleural fluid. His abdominal pain is improving, although he still has persistent left-sided abdominal discomfort. Has been afebrile over the last 24 hours, and 2 L per nasal cannula O2 sat 96%. Hemodynamically stable. His amylase and lipase are now within normal limits. And accommodation of meropenem and vancomycin, pleural fluid culture is negative for any growth so far, will await the results of the final cultures, blood cultures are negative. Sputum cultures positive for Fidelia albicans and Fidelia glabrata, which is most likely contaminated by oral fortino. Surgery is following, and was discussed with the patient whether he would want to be transferred to a tertiary institution, patient's amylase and lipase are coming down, and his bone pain is improving. On 08/14/2017 and I'm seeing this patient for a follow-up his condition is decompensated significantly over the past few days and the patient got transferred to a telemetry unit. He is doing poorly. He has become progressively more short of breath and the CAT scan of the chest done yesterday showed increasing right-sided pleural effusion along with volume loss and progressive infiltration of the right lung is along with atelectatic changes and some loculation of the right-sided pleural effusion. The findings are consistent withinfection and possible empyema. The pleural fluid that was drained earlier for diagnostic purposes was complicated parapneumonic effusion with elevated LDH and protein in the fluid culture was negative for any bacterial growth. Previous sputum analysis at time of admission showed a combination of Fidelia albicans and glabrata.A subsequent chest x-ray from today shows worsening of the right sided pneumonia/consolidation and there is obvious loculation of the pleural fluid based on the CAT scan findings. I discussed this case with a thoracic surgeon and the patient will be taken to the operating room tomorrow for a video-assisted thoracoscopic evaluation, and possible decortication. I also noted that the patient's renal function has been progressively getting worse. Creatinine is up to 1.6. Stop all nonsteroidal anti-inflammatory medication. Vancomycin level is toxic and this is currently on hold for now. He is also on IV Merrem. Afebrile. Oral intake is diminished specially his underlying pneumonia. No nausea. No vomiting. No significant abdominal pain for now. On 08/15/2017, the patient is quite short of breath. He is uncomfortable even at rest. He is currently on 3 L of oxygen by nasal cannula and his pulse ox is 99%. He is still spiking on and off temperature in the last temperature spike was yesterday evening when he spike a temperature of 101.4. Otherwise, he is nothing by mouth for now and the plan is for this patient to be taken to the operating room for a video-assisted thoracoscopy and possible decortication. He remains on a combination of meropenem and vancomycin. Vanco trough was quite elevated at was toxic and this could've contributed to his acute kidney injury. His creatinine is stable for now and the values at 1.5. Hemoglobin stable at 9.2. White cell count is not elevated. The patient was taken off the nonsteroidal anti-inflammatory medication. This subsequently vancomycin level is down to 20. Otherwise is producing adequate amount of urine output and the patient is being well hydrated. I suspect that he may end up going to the ICU following his thoracic surgery and this will largely depend on his overall progress. I have spoken to this patient at length. I also discussed the case with his mother the bedside. No nausea. No vomiting. No significant abdominal pain. No altered mentation. Reevaluated today on 08/16/2017, patient is doing relatively well, off oxygen, relatively asymptomatic, his chest x-ray continues to show significant right lower lobe consolidation. But overall there has been significant improvement since his surgery there is no evidence of pneumothorax. There is minimal subcutaneous emphysema. Pathology from the decortication is still pending. CBC is relatively normal and his basic metabolic profile is showing improvement in his creatinine down to 1.40. Sodium is a bit improved at 146 today. The patient is seen again today 08/17/2017 in follow-up on the selective care unit. He is currently awake and alert in no acute distress. Chest x-ray shows stable right-sided consolidation and pleural effusion. Minimal subcutaneous emphysema. He is maintaining good O2 saturations in the upper 90s on 2 L/m per nasal cannula. He's been afebrile. He is status post right thorascopic total lung decortication on 08/15/2017. Fluid cultures pending. Pathology is pending. White count 7.6. Hemoglobin 9.0. Sodium 147. Creatinine 1.49. Objective - Vital Signs Vital signs: Vital Signs Temp 98.2 F 08/17/17 08:00 Pulse 98 08/17/17 08:00 Resp 18 08/17/17 08:00 BP 133/72 08/17/17 08:00 Pulse Ox 97 08/17/17 08:46 Intake & Output 08/16/17 08/17/17 08/17/17 18:59 06:59 18:59 Intake Total 720 240 Output Total 110 125 Balance 610 115 Weight 121.1 kg 123.2 kg Intake: Oral 720 240 Output: Chest Tube Drainage 110 125 right lateral 80 75 right medial y-connection 30 50 Other: Voiding Method Urinal Urinal Urinal # Voids 1 0 # Bowel Movements 0 - Exam GENERAL EXAM: Alert, pleasant, 42-year-old white male patient, does not appear to be in acute distress HEAD: Normocephalic/atraumatic. EYES: Normal reaction of pupils, equal size. Conjunctiva pink, sclera white. NOSE: Clear with pink turbinates. THROAT: No erythema or exudates. NECK: No masses, no JVD, no thyroid enlargement, no adenopathy. CHEST: No chest wall deformity. Symmetrical expansion. LUNGS: Diminished breath sounds over right lower lobe, with bibasilar crackles and scattered wheezes CVS: Regular rate and rhythm, normal S1 and S2, no gallops, no murmurs, no rubs ABDOMEN: Soft, nontender. No hepatosplenomegaly, normal bowel sounds, no guarding or rigidity. EXTREMITIES: No clubbing, no edema, no cyanosis, 2+ pulses and upper and lower extremities. MUSCULOSKELETAL: Muscle strength and tone normal. SPINE: No scoliosis or deformity SKIN: No rashes CENTRAL NERVOUS SYSTEM: Alert and oriented -3. No focal deficits, tone is normal in all 4 extremities. PSYCHIATRIC: Alert and oriented -3. Appropriate affect. Intact judgment and insight. - Labs CBC & Chem 7: 08/17/17 05:28 08/17/17 05:28 Labs: Abnormal Lab Results - Last 24 Hours (Table) 08/17/17 08/17/17 Range/Units 05:28 05:28 RBC 3.44 L (4.30-5.90) m/uL Hgb 9.0 L (13.0-17.5) gm/dL Hct 29.9 L (39.0-53.0) % MCHC 29.9 L (31.0-37.0) g/dL Sodium 147 H (137-145) mmol/L Chloride 110 H (98-107) mmol/L Creatinine 1.49 H (0.66-1.25) mg/dL Glucose 110 H (74-99) mg/dL Calcium 8.0 L (8.4-10.2) mg/dL ALT 17 L (21-72) U/L Alkaline Phosphatase 147 H (38-126) U/L Total Protein 5.0 L (6.3-8.2) g/dL Albumin 2.6 L (3.5-5.0) g/dL Microbiology - Last 24 Hours (Table) 08/15/17 14:30 Acid Fast Bacilli Smear - Final Pleural Fluid Acid Fast Bacilli Culture - Preliminary 08/15/17 14:30 Acid Fast Bacilli Smear - Final Pleural Fluid Acid Fast Bacilli Culture - Preliminary 08/11/17 16:28 Blood Culture - Preliminary Blood No Growth after 120 hours 08/11/17 16:20 Blood Culture - Preliminary Blood No Growth after 120 hours 08/15/17 14:30 Gram Stain - Preliminary Pleural Fluid Tissue Culture - Preliminary 08/10/17 15:06 Blood Culture - Final Blood No Growth after 144 hours 08/15/17 14:30 Gram Stain - Preliminary Pleural Fluid Body Fluid Culture - Preliminary Assessment and Plan Assessment: Assessment 1. Right lung pneumonia complicated by development of a parapneumonic effusion which is complicated and possibly there may be a component of empyema. The pleural fluid analysis that was done through a diagnostic thoracentesis showed elevated LDH and protein. Cultures of been negative. The patient has progressive worsening and opacification of the right lung. Patient is status post decortication, pathology from the pleural effusion is pending and pathology from the pleural tissue is pending. 2 acute hypoxic respiratory failure secondary to above 3 episodic fever, multifactorial. Could be related to underlying lung infection versus pancreatitis. Infected pancreatic pseudocys felt to be less likely. 4 chronic pancreatitis with formation of pancreatic pseudocyst, status post EGD 5 status post endoscopic cholecystectomy performed on 07/21/2017 6 hepatitis C viral infection secondary to IV drug use 7 history of drug abuse 8 major depression to the mental health facility December 2016 9 Chronic cholelithiasis status post cholecystectomy 10 Current mild leukocytosis 11 anemia, mild, stable Plan: The patient was seen and evaluated by Dr. Finley. Chest x-ray and labs were reviewed. We'll continue with his current treatment plan. Again encourage increased use of the incentive spirometer and cough and deep breathing exercises. He remains on antibiotics in form of vancomycin and meropenem. Continue bronchodilators. Heparin for DVT prophylaxis. Increase his activity as tolerated. We will continue to follow and make further recommendations based on his clinical status. I, the cosigning physician, performed a history & physical examination of the patient. Lungs sounds have bilateral end expiratory wheeze. Few scattered rhonchi.. Maintaining good O2 saturations in the 90s on 2 L/m per nasal cannula. I discussed the assessment and plan of care with my nurse practitioner , Carmen Caldera. I attest to the above note as dictated by her.
[2017-08-17] MEDS: MORPHINE ORAL SOLN 10 MG/5 ML CUP PO PRN ×3 (14:41→22:08)
--- NOTE | 2017-08-17 15:14 | PN ---
PROGRESS NOTE DATE OF SERVICE: 08/17/2017. REASON FOR FOLLOW UP: 1. A right-sided multiloculated effusion, question of empyema. 2. Pseudocyst. INTERVAL HISTORY: The patient is afebrile, has been breathing comfortably. His chest tube has been removed this morning. Overall pain to the chest wall is currently controlled. The patient did mention that the abdominal pain has resolved as well. Denies having any chest pain, shortness of breath, occasional cough. No diarrhea. EXAMINATION: Blood pressure 124/60 with a pulse of 96 temperature is 97.6 and 95% on room air. General description is a middle aged male up in the bed in no distress. RESPIRATORY SYSTEM: Unlabored breathing with decreased breath sounds in the base. No wheeze. HEART: S1, S2. Regular rate and rhythm. ABDOMEN: Soft, no tenderness. EXTREMITIES: Some trace edema of feet. LABS: Hemoglobin 9, white count 7.6 with a BUN of 11, creatinine 1.49. Pleural fluid cultures currently pending. DIAGNOSTIC IMPRESSION AND PLAN: Patient with right-sided multiloculated fluid collection of concern for possible empyema. The patient is currently covered with meropenem, Vanco that will be continued while waiting for the culture to finalize. Continue supportive care. MMODL / IJN: [id number] /
--- NOTE | 2017-08-17 15:59 | CDI ---
Last Revision, March 2017 Documentation Clarification Form Date: 08/17/17 From: Berenice Colon RN, CCDS Admit Date: 08/09/2017 8:01:00 PM Patient Name: Juan Ralph Visit Number: [id number] Discharge Date: ATTENTION: The Clinical Documentation Specialists (CDI) and [facility] Coding Staff appreciate your assistance in clarifying documentation. Please respond to the clarification below the line at the bottom and electronically sign. The CDI & [facility] Coding staff will review the response and follow-up if needed. Please note: Queries are made part of the Legal Health Record. If you have any questions, please contact the author of this message via ITS. Dr. Bandar Camacho A diagnosis of anemia lacks specificity to accurately reflect your patients severity of condition and clarification is needed. History/Risk Factors: Chronic pancreatitis, COPD, Seizure disorder, Hepatitis C , Current every day smoker, Perscription Drug Abuse, Clinical indicators: Present with complaints of abdominal pain, dark urine Vital signs on admission: 135/77 112 18 101.4 94 % RA CT Abdomen/Pelvis: 7.5 cm pancreatic cyst. Some inflammatory changes around it. 08/10/17 EGD: Mild antral gastritis. No visualization of the pancreas pseudocyst pushing on the stomach 08/10/17 US Thoracentesis 60 mL of serousangrinesis fluid removed. 08/15/17 Right thoracoscopic total lung decortication estimated blood loss: 20 ml Hemoglobin: on admission 12.1, HGB 08/15/17 9.2, HGB 08/17/17 9.0 Hematocrit: on admission 36.3, HCT 08/15/17 29.6 HCT 08/17/17 29.9 Treatment: Monitoring labs In order to capture the severity of condition, please clarify the type of anemia and etiology if known: Acute blood loss anemia (specify possible cause) Acute on chronic blood loss anemia (specify possible cause Chronic blood loss anemia Iron deficiency anemia Unable to determine Other, please specify Please continue to document in your progress notes and discharge summary in order to capture severity of illness and risk of mortality. Include clinical findings that support your diagnosis. MTDD
[2017-08-17] MEDS: MIRTAZAPINE 15 MG TAB PO SCH (20:17)
[2017-08-17] MEDS: SENNOSIDES-DOCUSATE SODIUM 1 EACH TAB PO SCH (20:18)
[2017-08-18] MEDS: MORPHINE ORAL SOLN 10 MG/5 ML CUP PO PRN ×4 (02:55→23:54)
[2017-08-18] MEDS: HYDROmorphone 2 MG TAB PO PRN ×3 (05:53→19:44)
[2017-08-18] MEDS: MEROPENEM 1 GM in SODIUM CHLORIDE 0.9% 100 ML IVPB SCH ×3 (05:53→20:07)
[2017-08-18] MEDS: VANCOMYCIN 2,000 MG in SODIUM CHLORIDE 0.9% 500 ML IVPB SCH (06:44)
[2017-08-18] MEDS: PANTOPRAZOLE 40 MG TABLET PO SCH (06:44)
[2017-08-18 07:15] LABS: Potassium 3.8 mmol/L (3.5-5.1)
--- NOTE | 2017-08-18 08:03 | P.PN ---
Subjective Progress Note Date: 08/18/17 Principal diagnosis: Loculated right-sided pleural effusion. Previous medical history of chronic pancreatitis, COPD, seizure disorder, hepatitis C, bipolar disorder, current tobacco dependence, previous IV drug abuse as well as prescription drug abuse, ERCP 6 months ago, cholecystectomy on July 22. POD #3 right thoracoscopic total lung decortication Patient is currently sitting up in bed in no acute distress. States pain is controlled on oral medication. Denies shortness of breath. Patient has been ambulatory in the room. Anterior right-sided chest tube, one posterior right- sided chest tube discontinued yesterday. One posterior right-sided chest tube remains. Objective - Vital Signs Vital signs: Vital Signs Temp 100.7 F H 08/18/17 04:00 Pulse 107 H 08/18/17 04:00 Resp 18 08/18/17 04:00 BP 115/58 08/18/17 04:00 Pulse Ox 91 L 08/18/17 04:00 Intake & Output 08/17/17 08/18/17 08/18/17 18:59 06:59 18:59 Intake Total 240 Output Total 480 150 Balance -240 -150 Weight 121.3 kg Intake: Oral 240 Output: Chest Tube Drainage 125 right lateral 75 right medial y-connection 50 Drainage 80 150 Right 80 150 Urine 275 Other: Voiding Method Toilet Toilet # Voids 1 1 # Bowel Movements 0 - Constitutional General appearance: Present: cooperative, no acute distress, obese - Respiratory Details: Lungs sounds diminished bilaterally, right greater than left but better than yesterday. Respirations even, nonlabored. Currently on room air with oxygen saturation 91%. Achieving 1500 mL on his incentive spirometry. Posterior right pleural chest tubes to water seal, 150 mL serous drainage overnight, 350 mL drainage in the last 24 hours. No air leak present. - Cardiovascular Details: S1, S2 present. Regular rate and rhythm, sinus rhythm to sinus tach on telemetry. Palpable peripheral pulses bilaterally. No edema present. No calf pain or tenderness noted. - Gastrointestinal Gastrointestinal Comment(s): Abdomen soft, nontender, nondistended. Active bowel sounds 4 quadrants. Tolerating diet. Positive bowel movement this morning. - Genitourinary Genitourinary Comment(s): Continues to void yellow urine. - Integumentary Integumentary Comment(s): Skin is warm and dry with evidence of good perfusion. Right chest tube sites covered with dry intact dressing. Multiple tattoos present. - Neurologic Neurologic: Present: CNII-XII intact - Musculoskeletal Musculoskeletal: Present: gait normal, strength equal bilaterally - Psychiatric Psychiatric: Present: A&O x's 3, appropriate affect - Allied health notes Allied health notes reviewed: nursing - Labs CBC & Chem 7: 08/17/17 05:28 08/18/17 05:53 Labs: Abnormal Lab Results - Last 24 Hours (Table) 08/18/17 Range/Units 05:53 Chloride 108 H (98-107) mmol/L Glucose 100 H (74-99) mg/dL Calcium 8.0 L (8.4-10.2) mg/dL Microbiology - Last 24 Hours (Table) 08/15/17 14:30 Anaerobic Culture - Preliminary Pleural Fluid 08/11/17 16:28 Blood Culture - Final Blood No Growth after 144 hours 08/11/17 16:20 Blood Culture - Final Blood No Growth after 144 hours 08/15/17 14:30 Gram Stain - Preliminary Pleural Fluid Body Fluid Culture - Preliminary 08/15/17 14:30 Gram Stain - Preliminary Pleural Fluid Tissue Culture - Preliminary - Imaging and Cardiology Chest x-ray: image reviewed Assessment and Plan (1) Abdominal pain Current Visit: Yes Status: Acute Code(s): R10.9 - UNSPECIFIED ABDOMINAL PAIN SNOMED Code(s): 71592171 (2) Pancreatic pseudocyst Current Visit: Yes Status: Acute Code(s): K86.3 - PSEUDOCYST OF PANCREAS SNOMED Code(s): 038054189 (3) Pleural effusion Current Visit: Yes Status: Acute Code(s): J90 - PLEURAL EFFUSION, NOT ELSEWHERE CLASSIFIED SNOMED Code(s): 82366447 (4) Fever Current Visit: Yes Status: Acute Code(s): R50.9 - FEVER, UNSPECIFIED SNOMED Code(s): 487688624 (5) Pancreatitis Current Visit: Yes Status: Chronic Code(s): K85.90 - ACUTE PANCREATITIS WITHOUT NECROSIS OR INFECTION, UNSP SNOMED Code(s): 11191238 (6) History of hepatitis C Current Visit: No Status: Resolved Code(s): Z86.19 - PERSONAL HISTORY OF OTHER INFECTIOUS AND PARASITIC DISEASES SNOMED Code(s): 74690265470792 (7) Obesity (BMI 30-39.9) Current Visit: Yes Status: Chronic Code(s): E66.9 - OBESITY, UNSPECIFIED SNOMED Code(s): 007468325 Plan: 1. Will continue posterior chest tube for the 24 hours, monitor for air leak and drainage amount. 2. Encourage incentive spirometry use 10 times every hour while awake. Encourage smoking cessation. 3. Continue IV antibiotics per infectious disease. 4. Pain management with current medication regimen. 5. Medical comorbidities to be managed his primary care, pulmonology, general surgery. 6. Increase activity, ambulate in hallway as tolerated. 7. More recommendations to follow. Time with Patient: Greater than 30
[2017-08-18] MEDS: IPRATROPIUM-ALBUTEROL 3 ML NEB IH SCH ×4 (08:24→19:45)
--- NOTE | 2017-08-18 08:29 | XR ---
EXAMINATION TYPE: XR chest 1V portable DATE OF EXAM: 08/18/2017 COMPARISON: Prior chest x-ray 08/17/2017 HISTORY: Status post VATS TECHNIQUE: Single frontal view of the chest is obtained. FINDINGS: Right-sided chest tube remains in place, 2 right-sided chest tubes have been removed. Subc utaneous emphysema and overlying cardiac leads are again noted. No evident pneumothorax. Pleural pare nchymal changes are similar. Heart size is stable. IMPRESSION: Interval chest tube removal. There is likely residual pneumonia. Additional follow-up re commended.
[2017-08-18] MEDS: OLANZapine 5 MG TAB PO SCH (08:56)
[2017-08-18] MEDS: lamoTRIgine 100 MG TAB PO SCH ×2 (08:56→19:46)
[2017-08-18] MEDS: HEPARIN SODIUM,PORCINE 5,000 UNIT/ML 1 ML VIAL SQ SCH ×2 (08:56→15:41)
--- NOTE | 2017-08-18 12:09 | P.PN ---
Subjective Progress Note Date: 08/18/17 Principal diagnosis: Right-sided loculated pleural effusion, status post decorticationVale Martinez is a 42-year-old white male patient of Dr. Bandar Camacho who presented to the emergency department on 08/09/2017 at 1438 with complaints of diffuse abdominal pain across the left upper quadrant, fever. Denied any nausea, denied any vomiting, or diarrhea or abdominal distention. Reports poor oral intake. Patient was recently hospitalized for chronic pancreatitis and underwent recent laparoscopic cholecystectomy for acute cholelithiasis on 2017 Dr. Hicks and discharged home on 07/26/2017 on oral antibiotics which the patient has completed. Patient was treated for pancreatitis, and a pancreatic pseudocyst and cholelithiasis. He was seen in the follow-up and an office visit a week ago and was feeling well at that time. The plan was to have an EGD with possible drainage of the pancreatic pseudocyst. 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 CT of abdomen and pelvis with contrast revealed previously seen large cystic mass in the anterior body of the pancreas, with mildly inflamed upper anterior margin, and a new right pleural effusion compared to the prior study. Patient was febrile, with a temp of 101.4F presentation and has been intermittently febrile during this admission. Hemodynamically stable. Tachycardic with a heart rate up to 110 BPM, and tachypneic at times. Lab work on admission showed WBC of 14.5, hemoglobin of 12.1, electrolytes were within normal limits, renal profile was within normal limits, alkaline phosphatase was 207, malaise was 145 which is down from 152 upon discharge on 07/20/2017, lipase was 391. Upon his were negative 3. Urinalysis showed 2+ protein, 1+ nitrites. Patient was given 2 L of IV fluid boluses of 0.9 normal saline in the emergency room, and his maintenance IV fluids were started at 120 ML per hour. Patient was started on Zosyn for antibiotic coverage, he was given IV Toradol and morphine pain control. Patient was seen by general surgery and had an EGD on 08/10/2017, and was found to have mild antral gastritis. There was no visualization of the pancreatic pseudocyst during the procedure. The distal and the proximal esophagus appeared normal. He was then transferred to a regular medical surgical room in stable condition. Patient continued to be intermittently febrile, slightly dyspneic, but in no respiratory distress. Blood cultures were collected and sent, patient was given an additional 1 L of 0.9 normal saline IV bolus, her a total of 3 L of IV 0.9 bolus. Infectious disease service consult was initiated who recommended to continue with Zosyn at this time for antibiotic coverage. Lactic acid was within normal at 1.9. Today's blood work shows WBC of 13.3, hemoglobin of 10.9, INR 1.3, electrolytes and renal profile remained within normal limits. Patient was seen sitting up on the edge of the bed, denying any acute distress. Denied any chest pain, denied any acute dyspnea. Slightly pale and diaphoretic, receiving IV bolus of 0.9 normal saline. Some left upper abdominal tenderness, but abdomen is soft. Chest x-ray was obtained and showed right lower lobe pneumonia versus atelectasis and possible associated effusion. S1 is followed by CT chest without contrast which showed moderately large partially loculated right-sided pleural effusion, areas of compressive atelectasis, or infiltrate. Remote granulomatous changes. Patient is currently on 2 L per nasal cannula with O2 sat 95%, most recent vitals include a temperature of 98.1F, heart rate of 100 bpm, respiratory rate of 18, and blood pressure 119/64. On 08/11/2017 patient is seen in follow-up. He is resting in bed, mildly dyspneic, but in no acute distress. He is diaphoretic, does have some mild chest discomfort on deep inspiration over right posterior chest, lung sounds are diminished over right posterior lobe, and there are bibasilar crackles present. ID service has changed the patient's antibiotics from Zosyn to meropenem, yesterday we added vancomycin. Last fever was on 08/10/2017 at 1444 with a temp of 100.5F, no fevers overnight. Patient is hemodynamically stable , he was fluid resuscitated with 3 L of 0.9 normal saline fluid boluses, and his current IV is 0.9 normal saline at a rate of 120 ML per hour. His abdomen remains diffusely tender over upper bilateral quadrants, as well as the mid abdomen., Denies any nausea vomiting or diarrhea. He is receiving IV morphine pain control. Today's lab work was reviewed, WBC is 12.2, hemoglobin is 10.4, electrolytes within normal limits, BUN is 7, creatinine is 0.68, asthma lactic acid was within normal limits at 1.9, he is voiding. Continue current antibiotic coverage, we will potentially consult with interventional radiology in regards to drainage of his right-sided loculated pleural effusion, which is suspected to be parapneumonic in nature. The patient is seen again today 08/12/2017 in follow-up on the regular medical floor. He is awake and alert. He remains somewhat diaphoretic. Quite dyspneic on minimal exertion. He is maintaining O2 saturations in the low 90s when checked on room air. He's been up and bleeding in the room. He did undergo a ultrasound guided thoracentesis for diagnosis yesterday by IR. Cultures are pending. The fluid was bloody with total protein 4.3 and an LDH of 901. White count today 9.3. Hemoglobin 9.8. Creatinine 1.18. He remains covered with vancomycin and meropenem. On 08/13/2017 patient seen in follow-up. Today's chest x-ray shows increasing right-sided pleural effusion, volume loss and underlying infiltrate. Ultrasound guided right thoracentesis, on 08/11/2017 with drainage of 60 mL of pleural fluid. Urinalysis is consistent with exudative plural effusion secondary to pneumonia. We will obtain CT chest today to assess the loculation of the right pleural fluid. His abdominal pain is improving, although he still has persistent left-sided abdominal discomfort. Has been afebrile over the last 24 hours, and 2 L per nasal cannula O2 sat 96%. Hemodynamically stable. His amylase and lipase are now within normal limits. And accommodation of meropenem and vancomycin, pleural fluid culture is negative for any growth so far, will await the results of the final cultures, blood cultures are negative. Sputum cultures positive for Fidelia albicans and Fidelia glabrata, which is most likely contaminated by oral fortino. Surgery is following, and was discussed with the patient whether he would want to be transferred to a tertiary institution, patient's amylase and lipase are coming down, and his bone pain is improving. On 08/14/2017 and I'm seeing this patient for a follow-up his condition is decompensated significantly over the past few days and the patient got transferred to a telemetry unit. He is doing poorly. He has become progressively more short of breath and the CAT scan of the chest done yesterday showed increasing right-sided pleural effusion along with volume loss and progressive infiltration of the right lung is along with atelectatic changes and some loculation of the right-sided pleural effusion. The findings are consistent withinfection and possible empyema. The pleural fluid that was drained earlier for diagnostic purposes was complicated parapneumonic effusion with elevated LDH and protein in the fluid culture was negative for any bacterial growth. Previous sputum analysis at time of admission showed a combination of Fidelia albicans and glabrata.A subsequent chest x-ray from today shows worsening of the right sided pneumonia/consolidation and there is obvious loculation of the pleural fluid based on the CAT scan findings. I discussed this case with a thoracic surgeon and the patient will be taken to the operating room tomorrow for a video-assisted thoracoscopic evaluation, and possible decortication. I also noted that the patient's renal function has been progressively getting worse. Creatinine is up to 1.6. Stop all nonsteroidal anti-inflammatory medication. Vancomycin level is toxic and this is currently on hold for now. He is also on IV Merrem. Afebrile. Oral intake is diminished specially his underlying pneumonia. No nausea. No vomiting. No significant abdominal pain for now. On 08/15/2017, the patient is quite short of breath. He is uncomfortable even at rest. He is currently on 3 L of oxygen by nasal cannula and his pulse ox is 99%. He is still spiking on and off temperature in the last temperature spike was yesterday evening when he spike a temperature of 101.4. Otherwise, he is nothing by mouth for now and the plan is for this patient to be taken to the operating room for a video-assisted thoracoscopy and possible decortication. He remains on a combination of meropenem and vancomycin. Vanco trough was quite elevated at was toxic and this could've contributed to his acute kidney injury. His creatinine is stable for now and the values at 1.5. Hemoglobin stable at 9.2. White cell count is not elevated. The patient was taken off the nonsteroidal anti-inflammatory medication. This subsequently vancomycin level is down to 20. Otherwise is producing adequate amount of urine output and the patient is being well hydrated. I suspect that he may end up going to the ICU following his thoracic surgery and this will largely depend on his overall progress. I have spoken to this patient at length. I also discussed the case with his mother the bedside. No nausea. No vomiting. No significant abdominal pain. No altered mentation. Reevaluated today on 08/16/2017, patient is doing relatively well, off oxygen, relatively asymptomatic, his chest x-ray continues to show significant right lower lobe consolidation. But overall there has been significant improvement since his surgery there is no evidence of pneumothorax. There is minimal subcutaneous emphysema. Pathology from the decortication is still pending. CBC is relatively normal and his basic metabolic profile is showing improvement in his creatinine down to 1.40. Sodium is a bit improved at 146 today. The patient is seen again today 08/17/2017 in follow-up on the selective care unit. He is currently awake and alert in no acute distress. Chest x-ray shows stable right-sided consolidation and pleural effusion. Minimal subcutaneous emphysema. He is maintaining good O2 saturations in the upper 90s on 2 L/m per nasal cannula. He's been afebrile. He is status post right thorascopic total lung decortication on 08/15/2017. Fluid cultures pending. Pathology is pending. White count 7.6. Hemoglobin 9.0. Sodium 147. Creatinine 1.49. Reevaluated today on 08/18/2017, patient seems to be doing quite well, he is postoperative day #3 right-sided thoracoscopic total lung decortication. Patient is relatively asymptomatic, in no distress, chest tube remains in place , and chest x-ray is showing definite improvement over the last couple of days. CBC is relatively unremarkable hemoglobin is 9, basic metabolic profile is relatively normal with significant improvement in his renal status over the last couple of days. Objective - Vital Signs Vital signs: Vital Signs Temp 98.8 F 08/18/17 11:49 Pulse 100 08/18/17 12:00 Resp 18 08/18/17 11:49 BP 116/55 08/18/17 11:49 Pulse Ox 92 L 08/18/17 11:49 Intake & Output 08/17/17 08/18/17 08/18/17 18:59 06:59 18:59 Intake Total 240 222 Output Total 480 150 Balance -240 -150 222 Weight 121.3 kg Intake: Oral 240 222 Output: Chest Tube Drainage 125 right lateral 75 right medial y-connection 50 Drainage 80 150 Right 80 150 Urine 275 Other: Voiding Method Toilet Toilet # Voids 1 1 # Bowel Movements 0 - Exam GENERAL EXAM: Alert, pleasant, 42-year-old white male patient, does not appear to be in acute distress HEAD: Normocephalic/atraumatic. EYES: Normal reaction of pupils, equal size. Conjunctiva pink, sclera white. NOSE: Clear with pink turbinates. THROAT: No erythema or exudates. NECK: No masses, no JVD, no thyroid enlargement, no adenopathy. CHEST: No chest wall deformity. Symmetrical expansion. LUNGS: Diminished breath sounds over right lower lobe, with bibasilar crackles and scattered wheezes CVS: Regular rate and rhythm, normal S1 and S2, no gallops, no murmurs, no rubs ABDOMEN: Soft, nontender. No hepatosplenomegaly, normal bowel sounds, no guarding or rigidity. EXTREMITIES: No clubbing, no edema, no cyanosis, 2+ pulses and upper and lower extremities. MUSCULOSKELETAL: Muscle strength and tone normal. SPINE: No scoliosis or deformity SKIN: No rashes CENTRAL NERVOUS SYSTEM: Alert and oriented -3. No focal deficits, tone is normal in all 4 extremities. PSYCHIATRIC: Alert and oriented -3. Appropriate affect. Intact judgment and insight. - Labs CBC & Chem 7: 08/17/17 05:28 08/18/17 05:53 Labs: Abnormal Lab Results - Last 24 Hours (Table) 08/18/17 Range/Units 05:53 Chloride 108 H (98-107) mmol/L Glucose 100 H (74-99) mg/dL Calcium 8.0 L (8.4-10.2) mg/dL Microbiology - Last 24 Hours (Table) 08/15/17 14:30 Anaerobic Culture - Preliminary Pleural Fluid 08/11/17 16:28 Blood Culture - Final Blood No Growth after 144 hours 08/11/17 16:20 Blood Culture - Final Blood No Growth after 144 hours 08/15/17 14:30 Gram Stain - Preliminary Pleural Fluid Body Fluid Culture - Preliminary 08/15/17 14:30 Gram Stain - Preliminary Pleural Fluid Tissue Culture - Preliminary Assessment and Plan Assessment: 1. Right lung pneumonia complicated by development of a parapneumonic effusion which is complicated and possibly there may be a component of empyema. The pleural fluid analysis that was done through a diagnostic thoracentesis showed elevated LDH and protein. Cultures of been negative. The patient has progressive worsening and opacification of the right lung. Patient is status post decortication, pathology showed benign mesothelial tissue, reactive hyperplasia fibrosis and fat necrosis with inflamed granulation tissue. No malignancy was noted. 2 acute hypoxic respiratory failure secondary to above 3 episodic fever, multifactorial. Could be related to underlying lung infection versus pancreatitis. Infected pancreatic pseudocys felt to be less likely. 4 chronic pancreatitis with formation of pancreatic pseudocyst, status post EGD 5 status post endoscopic cholecystectomy performed on 07/21/2017 6 hepatitis C viral infection secondary to IV drug use 7 history of drug abuse 8 major depression to the mental health facility December 2016 9 Chronic cholelithiasis status post cholecystectomy 10 Current mild leukocytosis 11 anemia, mild, stable Recommendation: Continue present supportive care measures, continue incentive spirometry, bronchodilators, ambulation, possible discharge planning once the chest tube has been removed. We'll continue to follow. Time with Patient: Less than 30
--- NOTE | 2017-08-18 12:56 | PN ---
PROGRESS NOTE DATE OF SERVICE: 08/18/2017 REASON FOR FOLLOWUP: 1. Right-sided complicated pleural fluid/empyema. 2. Pancreatic pseudocyst. INTERVAL HISTORY: The patient did spike a low-grade fever last night and early this morning; however, the patient afebrile since then. He has been breathing more comfortably. Patient denies any worsening chest pain. Cough minimal. No abdominal pain. No nausea, vomiting, or any diarrhea. PHYSICAL EXAMINATION: On examination, blood pressure 116/55, pulse 94, temperature 98.8. He is 92% room air. General description is a middle aged male up in the chair in no distress. RESPIRATORY SYSTEM: Unlabored breathing with decreased breath sounds in the bases, no wheeze. HEART: S1, S2. Regular rate and rhythm. ABDOMEN: Soft, no tenderness. LABS: Hemoglobin 9, white count 7.6, BUN of 11, creatinine 1.23. DIAGNOSTIC IMPRESSION AND PLAN: Patient with right-sided complicated pleural fluid, possibly empyema, status post decortication. Culture has been negative so far. Currently on broad-spectrum antibiotic. Will continue while waiting for his condition to stabilize. Continue supportive care. MMODL / IJN: [id number] /
--- NOTE | 2017-08-18 17:00 | PN ---
PROGRESS NOTE SUBJECTIVE: This is a 42-year-old white male with pancreatic pseudocyst, hemopneumothorax. His white count today is 7.6, hemoglobin 9.1. His chest tube is still in place, in the process of pulling it. Sodium is 135, potassium 3.8. BUN is 11, creatinine 1.23. Creatinine is down from 1.49 to 1.23. He has a pancreatitis pseudocyst that will need drainage as an outpatient, being seen by Pulmonary. When he is cleared by Pulmonary he will need to go to a rehab facility. FINAL DIAGNOSES: 1. Sepsis secondary to hemopneumothorax versus pneumonia; possible infected pancreatic pseudocyst. 2. Chronic renal disease, stage III. 3. Chronic pancreatitis. 4. Bipolar disorder. 5. Dehydration. 6. Anemia secondary to chronic medical disease. Will monitor his hemoglobin. Continue with broad-spectrum IV antibiotics. Possible discharge to rehab when cleared by Pulmonology and chest surgeon. MMODL / IJN: [id number] /
[2017-08-18] MEDS: SENNOSIDES-DOCUSATE SODIUM 1 EACH TAB PO SCH (19:45)
[2017-08-18] MEDS: MIRTAZAPINE 15 MG TAB PO SCH (19:46)
[2017-08-19] MEDS: HEPARIN SODIUM,PORCINE 5,000 UNIT/ML 1 ML VIAL SQ SCH ×3 (00:26→15:28)
[2017-08-19] MEDS: HYDROmorphone 2 MG TAB PO PRN ×4 (02:08→20:56)
[2017-08-19] MEDS: MEROPENEM 1 GM in SODIUM CHLORIDE 0.9% 100 ML IVPB SCH (04:04)
[2017-08-19] MEDS ORDERED: VANCOMYCIN TROUGH DUE 1 EACH MISC MISCELLANE ONE (05:00)
[2017-08-19] MEDS: VANCOMYCIN 2,000 MG in SODIUM CHLORIDE 0.9% 500 ML IVPB SCH (05:26)
[2017-08-19] MEDS: MORPHINE ORAL SOLN 10 MG/5 ML CUP PO PRN ×3 (06:06→16:34)
[2017-08-19] MEDS: PANTOPRAZOLE 40 MG TABLET PO SCH (06:07)
[2017-08-19 06:49] LABS: Calcium 7.8 mg/dL (8.4-10.2); Potassium 3.5 mmol/L (3.5-5.1)
[2017-08-19] MEDS: IPRATROPIUM-ALBUTEROL 3 ML NEB IH SCH ×4 (07:33→19:20)
--- NOTE | 2017-08-19 07:46 | XR ---
EXAMINATION TYPE: XR chest 1V portable DATE OF EXAM: 08/19/2017 COMPARISON: Prior chest x-ray 08/18/2017 HISTORY: Chest tube TECHNIQUE: Single frontal view of the chest is obtained. FINDINGS: Right-sided chest tube present at the lower hemithorax. There is improvement in aeration a s compared to prior exam. No evident pneumothorax. There are overlying cardiac leads. Heart size is s table. IMPRESSION: Improvement in aeration.
[2017-08-19] MEDS: lamoTRIgine 100 MG TAB PO SCH ×2 (08:01→20:50)
[2017-08-19] MEDS: OLANZapine 5 MG TAB PO SCH (08:01)
[2017-08-19] MEDS: ACETAMINOPHEN TAB 325 MG TAB PO PRN (08:05)
[2017-08-19 09:11] LABS: HCT 26.7 % (39.0-53.0); Hypochromasia Moderate; MCH 26.1 pg (25.0-35.0); MCHC 29.9 g/dL (31.0-37.0); Mean Platelet Volume 10.1; Platelet Count 247 k/uL (150-450); RBC 3.07 m/uL (4.30-5.90); RDW 13.7 % (11.5-15.5); WBC 8.5 k/uL (3.8-10.6)
--- NOTE | 2017-08-19 11:18 | P.PN ---
Subjective Progress Note Date: 08/19/17 Principal diagnosis: Right-sided loculated pleural effusion, likely a parapneumonic effusion secondary to hospital-acquired pneumonia versus aspiration pneumoniaVale Martinez is a 42-year-old white male patient of Dr. Bandar Camacho who presented to the emergency department on 08/09/2017 at 1438 with complaints of diffuse abdominal pain across the left upper quadrant, fever. Denied any nausea, denied any vomiting, or diarrhea or abdominal distention. Reports poor oral intake. Patient was recently hospitalized for chronic pancreatitis and underwent recent laparoscopic cholecystectomy for acute cholelithiasis on 2017 Dr. Hicks and discharged home on 07/26/2017 on oral antibiotics which the patient has completed. Patient was treated for pancreatitis, and a pancreatic pseudocyst and cholelithiasis. He was seen in the follow-up and an office visit a week ago and was feeling well at that time. The plan was to have an EGD with possible drainage of the pancreatic pseudocyst. 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 CT of abdomen and pelvis with contrast revealed previously seen large cystic mass in the anterior body of the pancreas, with mildly inflamed upper anterior margin, and a new right pleural effusion compared to the prior study. Patient was febrile, with a temp of 101.4F presentation and has been intermittently febrile during this admission. Hemodynamically stable. Tachycardic with a heart rate up to 110 BPM, and tachypneic at times. Lab work on admission showed WBC of 14.5, hemoglobin of 12.1, electrolytes were within normal limits, renal profile was within normal limits, alkaline phosphatase was 207, malaise was 145 which is down from 152 upon discharge on 07/20/2017, lipase was 391. Upon his were negative 3. Urinalysis showed 2+ protein, 1+ nitrites. Patient was given 2 L of IV fluid boluses of 0.9 normal saline in the emergency room, and his maintenance IV fluids were started at 120 ML per hour. Patient was started on Zosyn for antibiotic coverage, he was given IV Toradol and morphine pain control. Patient was seen by general surgery and had an EGD on 08/10/2017, and was found to have mild antral gastritis. There was no visualization of the pancreatic pseudocyst during the procedure. The distal and the proximal esophagus appeared normal. He was then transferred to a regular medical surgical room in stable condition. Patient continued to be intermittently febrile, slightly dyspneic, but in no respiratory distress. Blood cultures were collected and sent, patient was given an additional 1 L of 0.9 normal saline IV bolus, her a total of 3 L of IV 0.9 bolus. Infectious disease service consult was initiated who recommended to continue with Zosyn at this time for antibiotic coverage. Lactic acid was within normal at 1.9. Today's blood work shows WBC of 13.3, hemoglobin of 10.9, INR 1.3, electrolytes and renal profile remained within normal limits. Patient was seen sitting up on the edge of the bed, denying any acute distress. Denied any chest pain, denied any acute dyspnea. Slightly pale and diaphoretic, receiving IV bolus of 0.9 normal saline. Some left upper abdominal tenderness, but abdomen is soft. Chest x-ray was obtained and showed right lower lobe pneumonia versus atelectasis and possible associated effusion. S1 is followed by CT chest without contrast which showed moderately large partially loculated right-sided pleural effusion, areas of compressive atelectasis, or infiltrate. Remote granulomatous changes. Patient is currently on 2 L per nasal cannula with O2 sat 95%, most recent vitals include a temperature of 98.1F, heart rate of 100 bpm, respiratory rate of 18, and blood pressure 119/64. On 08/11/2017 patient is seen in follow-up. He is resting in bed, mildly dyspneic, but in no acute distress. He is diaphoretic, does have some mild chest discomfort on deep inspiration over right posterior chest, lung sounds are diminished over right posterior lobe, and there are bibasilar crackles present. ID service has changed the patient's antibiotics from Zosyn to meropenem, yesterday we added vancomycin. Last fever was on 08/10/2017 at 1444 with a temp of 100.5F, no fevers overnight. Patient is hemodynamically stable , he was fluid resuscitated with 3 L of 0.9 normal saline fluid boluses, and his current IV is 0.9 normal saline at a rate of 120 ML per hour. His abdomen remains diffusely tender over upper bilateral quadrants, as well as the mid abdomen., Denies any nausea vomiting or diarrhea. He is receiving IV morphine pain control. Today's lab work was reviewed, WBC is 12.2, hemoglobin is 10.4, electrolytes within normal limits, BUN is 7, creatinine is 0.68, asthma lactic acid was within normal limits at 1.9, he is voiding. Continue current antibiotic coverage, we will potentially consult with interventional radiology in regards to drainage of his right-sided loculated pleural effusion, which is suspected to be parapneumonic in nature. The patient is seen again today 08/12/2017 in follow-up on the regular medical floor. He is awake and alert. He remains somewhat diaphoretic. Quite dyspneic on minimal exertion. He is maintaining O2 saturations in the low 90s when checked on room air. He's been up and bleeding in the room. He did undergo a ultrasound guided thoracentesis for diagnosis yesterday by IR. Cultures are pending. The fluid was bloody with total protein 4.3 and an LDH of 901. White count today 9.3. Hemoglobin 9.8. Creatinine 1.18. He remains covered with vancomycin and meropenem. On 08/13/2017 patient seen in follow-up. Today's chest x-ray shows increasing right-sided pleural effusion, volume loss and underlying infiltrate. Ultrasound guided right thoracentesis, on 08/11/2017 with drainage of 60 mL of pleural fluid. Urinalysis is consistent with exudative plural effusion secondary to pneumonia. We will obtain CT chest today to assess the loculation of the right pleural fluid. His abdominal pain is improving, although he still has persistent left-sided abdominal discomfort. Has been afebrile over the last 24 hours, and 2 L per nasal cannula O2 sat 96%. Hemodynamically stable. His amylase and lipase are now within normal limits. And accommodation of meropenem and vancomycin, pleural fluid culture is negative for any growth so far, will await the results of the final cultures, blood cultures are negative. Sputum cultures positive for Fidelia albicans and Fidelia glabrata, which is most likely contaminated by oral fortino. Surgery is following, and was discussed with the patient whether he would want to be transferred to a tertiary institution, patient's amylase and lipase are coming down, and his bone pain is improving. On 08/14/2017 and I'm seeing this patient for a follow-up his condition is decompensated significantly over the past few days and the patient got transferred to a telemetry unit. He is doing poorly. He has become progressively more short of breath and the CAT scan of the chest done yesterday showed increasing right-sided pleural effusion along with volume loss and progressive infiltration of the right lung is along with atelectatic changes and some loculation of the right-sided pleural effusion. The findings are consistent withinfection and possible empyema. The pleural fluid that was drained earlier for diagnostic purposes was complicated parapneumonic effusion with elevated LDH and protein in the fluid culture was negative for any bacterial growth. Previous sputum analysis at time of admission showed a combination of Fidelia albicans and glabrata.A subsequent chest x-ray from today shows worsening of the right sided pneumonia/consolidation and there is obvious loculation of the pleural fluid based on the CAT scan findings. I discussed this case with a thoracic surgeon and the patient will be taken to the operating room tomorrow for a video-assisted thoracoscopic evaluation, and possible decortication. I also noted that the patient's renal function has been progressively getting worse. Creatinine is up to 1.6. Stop all nonsteroidal anti-inflammatory medication. Vancomycin level is toxic and this is currently on hold for now. He is also on IV Merrem. Afebrile. Oral intake is diminished specially his underlying pneumonia. No nausea. No vomiting. No significant abdominal pain for now. On 08/15/2017, the patient is quite short of breath. He is uncomfortable even at rest. He is currently on 3 L of oxygen by nasal cannula and his pulse ox is 99%. He is still spiking on and off temperature in the last temperature spike was yesterday evening when he spike a temperature of 101.4. Otherwise, he is nothing by mouth for now and the plan is for this patient to be taken to the operating room for a video-assisted thoracoscopy and possible decortication. He remains on a combination of meropenem and vancomycin. Vanco trough was quite elevated at was toxic and this could've contributed to his acute kidney injury. His creatinine is stable for now and the values at 1.5. Hemoglobin stable at 9.2. White cell count is not elevated. The patient was taken off the nonsteroidal anti-inflammatory medication. This subsequently vancomycin level is down to 20. Otherwise is producing adequate amount of urine output and the patient is being well hydrated. I suspect that he may end up going to the ICU following his thoracic surgery and this will largely depend on his overall progress. I have spoken to this patient at length. I also discussed the case with his mother the bedside. No nausea. No vomiting. No significant abdominal pain. No altered mentation. Reevaluated today on 08/16/2017, patient is doing relatively well, off oxygen, relatively asymptomatic, his chest x-ray continues to show significant right lower lobe consolidation. But overall there has been significant improvement since his surgery there is no evidence of pneumothorax. There is minimal subcutaneous emphysema. Pathology from the decortication is still pending. CBC is relatively normal and his basic metabolic profile is showing improvement in his creatinine down to 1.40. Sodium is a bit improved at 146 today. The patient is seen again today 08/17/2017 in follow-up on the selective care unit. He is currently awake and alert in no acute distress. Chest x-ray shows stable right-sided consolidation and pleural effusion. Minimal subcutaneous emphysema. He is maintaining good O2 saturations in the upper 90s on 2 L/m per nasal cannula. He's been afebrile. He is status post right thorascopic total lung decortication on 08/15/2017. Fluid cultures pending. Pathology is pending. White count 7.6. Hemoglobin 9.0. Sodium 147. Creatinine 1.49. Reevaluated today on 08/18/2017, patient seems to be doing quite well, he is postoperative day #3 right-sided thoracoscopic total lung decortication. Patient is relatively asymptomatic, in no distress, chest tube remains in place , and chest x-ray is showing definite improvement over the last couple of days. CBC is relatively unremarkable hemoglobin is 9, basic metabolic profile is relatively normal with significant improvement in his renal status over the last couple of days. The patient is seen again today 08/19/2017 in follow-up on the selective care unit. This is postoperative day #4 of her right thigh sided thorascopic total lung decortication. Patient is resting quite comfortably in bed. He is awake and alert in no acute distress. He states he is breathing easier every day. No worsening shortness of breath, cough or congestion. Chest x-ray shows improved aeration. Chest tube remains in place. He continues to maintain good O2 saturations in the 90s on room air. He's been afebrile. Hemodynamically stable. Pathology is pending. Cultures reveal no growth. White count 8.5. Hemoglobin 8.0. Creatinine 1.26. Antibiotics were discontinued today. Steroids were initiated. Objective - Vital Signs Vital signs: Vital Signs Temp 98.8 F 08/19/17 04:00 Pulse 106 H 08/19/17 07:46 Resp 18 08/19/17 04:00 BP 150/70 08/19/17 04:00 Pulse Ox 91 L 08/19/17 07:35 Intake & Output 08/18/17 08/19/17 08/19/17 18:59 06:59 18:59 Intake Total 372 0 Output Total 200 300 Balance 172 -300 0 Weight 119.2 kg Intake: Oral 372 0 Output: Chest Tube Drainage 200 right lateral 150 right medial y-connection 50 Urine 300 Other: Voiding Method Toilet Toilet # Voids 1 - Exam GENERAL EXAM: Alert, pleasant, 42-year-old white male patient, does not appear to be in acute distress HEAD: Normocephalic/atraumatic. EYES: Normal reaction of pupils, equal size. Conjunctiva pink, sclera white. NOSE: Clear with pink turbinates. THROAT: No erythema or exudates. NECK: No masses, no JVD, no thyroid enlargement, no adenopathy. CHEST: No chest wall deformity. Symmetrical expansion. Right-sided chest tube remains in place. LUNGS: Diminished breath sounds over right lower lobe, with bibasilar crackles and scattered wheezes CVS: Regular rate and rhythm, normal S1 and S2, no gallops, no murmurs, no rubs ABDOMEN: Soft, nontender. No hepatosplenomegaly, normal bowel sounds, no guarding or rigidity. EXTREMITIES: No clubbing, no edema, no cyanosis, 2+ pulses and upper and lower extremities. MUSCULOSKELETAL: Muscle strength and tone normal. SPINE: No scoliosis or deformity SKIN: No rashes CENTRAL NERVOUS SYSTEM: Alert and oriented -3. No focal deficits, tone is normal in all 4 extremities. PSYCHIATRIC: Alert and oriented -3. Appropriate affect. Intact judgment and insight. - Labs CBC & Chem 7: 08/19/17 05:18 08/19/17 05:18 Labs: Abnormal Lab Results - Last 24 Hours (Table) 08/19/17 08/19/17 Range/Units 05:18 05:18 RBC 3.07 L (4.30-5.90) m/uL Hgb 8.0 L (13.0-17.5) gm/dL Hct 26.7 L (39.0-53.0) % MCHC 29.9 L (31.0-37.0) g/dL Creatinine 1.26 H (0.66-1.25) mg/dL Glucose 104 H (74-99) mg/dL Calcium 7.8 L (8.4-10.2) mg/dL Microbiology - Last 24 Hours (Table) 08/15/17 14:30 Anaerobic Culture - Preliminary Pleural Fluid 08/15/17 14:30 Gram Stain - Preliminary Pleural Fluid Tissue Culture - Preliminary 08/15/17 14:30 Gram Stain - Preliminary Pleural Fluid Body Fluid Culture - Preliminary Assessment and Plan Assessment: Assessment 1. Right lung pneumonia complicated by development of a parapneumonic effusion which is complicated and possibly there may be a component of empyema. The pleural fluid analysis that was done through a diagnostic thoracentesis showed elevated LDH and protein. Cultures of been negative. The patient has progressive worsening and opacification of the right lung. Patient is status post decortication, pathology from the pleural effusion shows no evidence of malignancy and pathology from the pleural tissue is pending. 2 acute hypoxic respiratory failure secondary to above 3 episodic fever, multifactorial. Could be related to underlying lung infection versus pancreatitis. Infected pancreatic pseudocys felt to be less likely. 4 chronic pancreatitis with formation of pancreatic pseudocyst, status post EGD 5 status post endoscopic cholecystectomy performed on 07/21/2017 6 hepatitis C viral infection secondary to IV drug use 7 history of drug abuse 8 major depression to the mental health facility December 2016 9 Chronic cholelithiasis status post cholecystectomy 10 Current mild leukocytosis 11 anemia, mild, stable Plan: The patient was seen and evaluated by Dr. Finley. Chest x-ray and labs were reviewed. We'll continue with his current treatment plan. Again encourage increased use of the incentive spirometer and cough and deep breathing exercises. Antibiotics were discontinued. Initiated on Medrol Dosepak. Continue bronchodilators. Heparin for DVT prophylaxis. Increase his activity as tolerated. We will continue to follow and make further recommendations based on his clinical status. I, the cosigning physician, performed a history & physical examination of the patient. Lungs sounds have bilateral end expiratory wheeze. Few scattered rhonchi.. Maintaining good O2 saturations in the 90s on room air. I discussed the assessment and plan of care with my nurse practitioner, Carmen Caldera. I attest to the above note as dictated by her.
--- NOTE | 2017-08-19 11:19 | P.PN ---
Subjective Progress Note Date: 08/19/17 Principal diagnosis: Multiloculated right pleural effusion, chronic pancreatitis, COPD, seizure disorder, hepatitis C, bipolar disorder, current tobacco dependence, previous IV drug abuse as well as prescription drug abuse, ERCP at [facility] 6 months ago, and history of cholecystectomy on 07/22/2017. POD #4 right thoracoscopic total lung decortication. Patient is sitting up to the bedside chair. He is in no acute distress. He is alert and oriented 3. He states his pain is well controlled. His oxygen saturations are 95% on room air. He is achieving 1000 mL on his incentive spirometry. His right pleural chest tube remains in place on waterseal. Chest tube is draining thin serous drainage. Objective - Vital Signs Vital signs: Vital Signs Temp 98.8 F 08/19/17 04:00 Pulse 106 H 08/19/17 07:46 Resp 18 08/19/17 04:00 BP 150/70 08/19/17 04:00 Pulse Ox 91 L 08/19/17 07:35 Intake & Output 08/18/17 08/19/17 08/19/17 18:59 06:59 18:59 Intake Total 372 0 Output Total 200 300 Balance 172 -300 0 Weight 119.2 kg Intake: Oral 372 0 Output: Chest Tube Drainage 200 right lateral 150 right medial y-connection 50 Urine 300 Other: Voiding Method Toilet Toilet # Voids 1 - Constitutional General appearance: Present: cooperative, no acute distress, obese - Respiratory Details: Lung sounds with few scattered crackles and expiratory wheezes throughout. Diminished to his bilateral bases. Respirations are symmetrical and nonlabored. Oxygen saturation are 95% on room air. He is achieving 1000 mL on his incentive spirometry with encouragement. Right pleural chest tube remains to waterseal. No air leak present. Draining thin serous drainage. 150 mL output in the last 8 hours, 350 mL output in the last 24 hours. - Cardiovascular Details: Regular rhythm and tachycardic rate. S1 and S2 present, negative for S3, gallop or murmur. Remote telemetry showing sinus tachycardia heart rate 103 BPM. Trace edema to his bilateral lower extremities. Knee-high sequential compression devices in place to his bilateral lower extremities. - Gastrointestinal Gastrointestinal Comment(s): Abdomen is soft, nontender and nondistended. Active bowel sounds to all 4 abdominal quadrants. Bowel movement yesterday 08/18/2017. - Genitourinary Genitourinary Comment(s): Urine output adequate, voiding clear yellow urine. - Integumentary Integumentary Comment(s): Skin is warm and dry. No clubbing or cyanosis present. Right chest tube incisions clean dry and approximated. Scant serous drainage. Multiple tattoos. - Neurologic Neurologic: Present: CNII-XII intact - Musculoskeletal Musculoskeletal: Present: gait normal, strength equal bilaterally - Psychiatric Psychiatric: Present: A&O x's 3, appropriate affect, intact judgment & insight - Allied health notes Allied health notes reviewed: nursing - Labs CBC & Chem 7: 08/19/17 05:18 08/19/17 05:18 Labs: Abnormal Lab Results - Last 24 Hours (Table) 08/19/17 08/19/17 Range/Units 05:18 05:18 RBC 3.07 L (4.30-5.90) m/uL Hgb 8.0 L (13.0-17.5) gm/dL Hct 26.7 L (39.0-53.0) % MCHC 29.9 L (31.0-37.0) g/dL Creatinine 1.26 H (0.66-1.25) mg/dL Glucose 104 H (74-99) mg/dL Calcium 7.8 L (8.4-10.2) mg/dL Microbiology - Last 24 Hours (Table) 08/15/17 14:30 Anaerobic Culture - Preliminary Pleural Fluid 08/15/17 14:30 Gram Stain - Preliminary Pleural Fluid Tissue Culture - Preliminary 08/15/17 14:30 Gram Stain - Preliminary Pleural Fluid Body Fluid Culture - Preliminary - Imaging and Cardiology Chest x-ray: report reviewed, image reviewed Assessment and Plan (1) Abdominal pain Current Visit: Yes Status: Acute Code(s): R10.9 - UNSPECIFIED ABDOMINAL PAIN SNOMED Code(s): 00715089 (2) Fever Current Visit: Yes Status: Acute Code(s): R50.9 - FEVER, UNSPECIFIED SNOMED Code(s): 071807260 (3) Pancreatic pseudocyst Current Visit: Yes Status: Acute Code(s): K86.3 - PSEUDOCYST OF PANCREAS SNOMED Code(s): 847493525 (4) Pleural effusion Current Visit: Yes Status: Acute Code(s): J90 - PLEURAL EFFUSION, NOT ELSEWHERE CLASSIFIED SNOMED Code(s): 94172461 (5) Obesity (BMI 30-39.9) Current Visit: Yes Status: Chronic Code(s): E66.9 - OBESITY, UNSPECIFIED SNOMED Code(s): 575791174 (6) History of hepatitis C Current Visit: No Status: Resolved Code(s): Z86.19 - PERSONAL HISTORY OF OTHER INFECTIOUS AND PARASITIC DISEASES SNOMED Code(s): 36547348966363 Plan: 1. We will keep his right pleural chest tube in place to water seal. We will monitor the amount of drainage from the chest tube over the next 24 hours and possibly discontinue the chest tube tomorrow a.m. 2. Encourage use of his incentive spirometry every hour while awake. Dr. Finley for pulmonary management recommendations. 3. Pain control per when necessary orders. 4. Monitor daily chest x-rays. 5. Medical management recommendations per primary care service. 6. Out of bed for all meals, increase activity as tolerated. 7. Dr. Sargent has reviewed the patient's case with Dr. Escamilla from infectious disease and we will discontinue his IV antibiotics at this time. We will start the patient on a Medrol Dosepak today. 8. More recommendations to follow based on the patient's clinical course. Time with Patient: Greater than 30
[2017-08-19] MEDS: methylPREDNISolone 4 MG TAB PO SCH (11:59)
[2017-08-19] MEDS: MIRTAZAPINE 15 MG TAB PO SCH (20:50)
[2017-08-19] MEDS: SENNOSIDES-DOCUSATE SODIUM 1 EACH TAB PO SCH (20:50)
--- NOTE | 2017-08-19 22:28 | PN ---
PROGRESS NOTE SUBJECTIVE: 42-year-old white male with chest tube still in place the right lung. He is up and ambulating more. Remains on updraft treatments. Physical therapy is ordered. Hemoglobin is down to 8.0. White count is 8.5. CARDIOVASCULAR: S1, S2. LUNGS: Transmitted upper sounds. GI Soft. HEMATOLOGY: Negative Homans. ENDOCRINE: BMI is over 40. Psych fair mood and affect. ASSESSMENT: 1. Acute on chronic anemia, worsening. 2. Status post multiloculated right pleural effusion. 3. Chronic pancreatitis. 4. pseudocyst. 5. Chronic obstructive pulmonary disease. 6. Seizure disorder. 7. Hepatitis C. 8. Bipolar. 9. Nicotine addiction. 10.IV drug abuse. 11.Possible prescription drug abuse. 12.He [facility] 6 months ago. 13.History of cholecystectomy 07/22/2017. 14.Pancreatic pseudocyst. 15.He is status post lung decortication. Vital signs show pulse is low 100s, temp 98.5, respiratory 16 to 18, blood pressure 150s/70s, O2 91% on 2 L. cardiovascular S1, S2. LUNGS: Transmitted upper sounds. GI soft, distended obesity. Hematology negative Homans. Psych: Fair mood and affect. Chest wall in place. Labs are reviewed. DIAGNOSES: 1. Anemia, chronic, possible slow blood-loss anemia versus metabolic anemia. 2. Abdominal pain, pancreatic pseudocyst, fever. 3. Pleural effusion status post decortication. Continue PT/OT. Possible discharge home in the next 24 to 48 hours. Possible iron infusion. MMODL / IJN: [id number] /
--- NOTE | 2017-08-19 22:55 | PN ---
PROGRESS NOTE DATE OF SERVICE: 08/19/2017 REASON FOR FOLLOWUP: 1. Right-sided pleural fluid. 2. Patient with a pancreatic pseudocyst. INTERVAL HISTORY: The patient did spike a fever this morning of 101.3; however, the patient has been afebrile since then. Patient has been breathing more comfortably. Chest pain has improved. Occasional cough, not bringing up any sputum. His abdominal pain has resolved. No nausea. No vomiting or any diarrhea. PHYSICAL EXAMINATION: Blood pressure 128/57 with a pulse of 82, temperature 98.8. He is 93% on room air. General description is a middle-aged male lying in bed in no distress. RESPIRATORY SYSTEM: Unlabored breathing with decreased breath sounds in the bases. No wheeze. HEART: S1, S2. Regular rate and rhythm. ABDOMEN: Soft. No tenderness. No guarding or rigidity. EXTREMITIES: Trace edema of the feet. LABS: Hemoglobin 8 with a white count of 8.5, BUN of 13, creatinine 1.26. DIAGNOSTIC IMPRESSION AND PLAN: 1. Patient with right-sided pleural fluid, loculated, status post post VATS procedure. However, it has been mostly serous fluid per the CT surgeon who performed the procedure, with all the cultures negative. Recommended the antibiotic to be discontinued. Patient will be monitored closely off antibiotic therapy. If any fever or change in his clinical condition, appropriate cultures will be obtained before settling on different antibiotics. 2. Patient with a pancreatic pseudocyst, less likely infectious, as the patient is currently with no abdominal pain and no elevated white count. Will be monitored closely. Mother was present at bedside. All her questions and concerns were answered. MMODL / IJN: [id number] /
[2017-08-20] MEDS: SODIUM FERRIC GLUCONAT-SUCROSE 125 MG in SODIUM CHLORIDE 0.9% 100 ML IVPB SCH ×2 (01:16→08:50)
[2017-08-20] MEDS: HEPARIN SODIUM,PORCINE 5,000 UNIT/ML 1 ML VIAL SQ SCH ×5 (01:21→22:33)
[2017-08-20] MEDS ORDERED: VANCOMYCIN 2,250 MG in SODIUM CHLORIDE 0.9% 500 ML IVPB SCH (06:00)
[2017-08-20] MEDS: PANTOPRAZOLE 40 MG TABLET PO SCH (06:09)
[2017-08-20 06:10] LABS: Basophils % (A) 0 %; Eosinophils % (A) 0 %; HCT 26.4 % (39.0-53.0); Hypochromasia Moderate; Lymphocytes # (A) 1.2 k/uL (1.0-4.8); Lymphocytes % (A) 14 %; MCHC 30.3 g/dL (31.0-37.0); MCV 85.9 fL (80.0-100.0); Monocytes # (A) 0.6 k/uL (0-1.0); Monocytes % (A) 7 %; Neutrophils # (A) 6.3 k/uL (1.3-7.7); Neutrophils % (A) 76 %; Platelet Count 279 k/uL (150-450); RBC 3.07 m/uL (4.30-5.90); RDW 13.7 % (11.5-15.5); WBC 8.3 k/uL (3.8-10.6)
[2017-08-20 06:18] LABS: ALT 22 U/L (21-72); AST 25 U/L (17-59); Albumin 2.6 g/dL (3.5-5.0); Alkaline Phosphatase 131 U/L (38-126); Anion Gap 11 mmol/L; Blood Urea Nitrogen 18 mg/dL (9-20); Calcium 8.3 mg/dL (8.4-10.2); Carbon Dioxide 28 mmol/L (22-30); Chloride 108 mmol/L (98-107); Glucose 125 mg/dL (74-99); Potassium 4.1 mmol/L (3.5-5.1); Sodium 147 mmol/L (137-145); Total Bilirubin 0.2 mg/dL (0.2-1.3); Total Protein 5.1 g/dL (6.3-8.2)
[2017-08-20] MEDS: HYDROmorphone 2 MG TAB PO PRN ×3 (07:50→20:22)
[2017-08-20] MEDS: OLANZapine 5 MG TAB PO SCH (07:51)
[2017-08-20] MEDS: lamoTRIgine 100 MG TAB PO SCH ×2 (07:51→20:23)
[2017-08-20] MEDS: IPRATROPIUM-ALBUTEROL 3 ML NEB IH SCH ×4 (08:01→19:35)
[2017-08-20] MEDS: methylPREDNISolone 4 MG TAB PO SCH (08:50)
--- NOTE | 2017-08-20 09:15 | XR ---
EXAMINATION TYPE: XR chest 2V DATE OF EXAM: 08/20/2017 COMPARISON: 08/19/2017 TECHNIQUE: PA and lateral views submitted. HISTORY: Post VATS FINDINGS: Right-sided consolidation and pleural effusion noted. Pleural-based density of the right lung likely related to fluid within the fissure. Subsegmental atelectasis or infiltrate the left lung base. Heart size stable. No sizable pneumothorax. Small amount subcutaneous emphysema on the right noted. IMPRESSION: 1. Pleural parenchymal changes bilaterally greater on the right. Likely representing a combination of consolidated lung and small pleural effusion.
--- NOTE | 2017-08-20 09:36 | P.PN ---
Subjective Progress Note Date: 08/20/17 Principal diagnosis: Loculated right-sided pleural effusion. Previous medical history of chronic pancreatitis, COPD, seizure disorder, hepatitis C, bipolar disorder, current tobacco dependence, previous IV drug abuse as well as prescription drug abuse, ERCP 6 months ago, cholecystectomy on July 22. POD #5 right thoracoscopic total lung decortication Patient is currently sitting up in bed in no acute distress. States pain is controlled on oral medication. Denies shortness of breath. Patient has been ambulatory in the hallway. Continues to have a lot of drainage from his right- sided posterior chest tube. Objective - Vital Signs Vital signs: Vital Signs Temp 97.8 F 08/20/17 07:49 Pulse 88 08/20/17 08:11 Resp 17 08/20/17 08:00 BP 140/81 08/20/17 07:49 Pulse Ox 93 L 08/20/17 07:49 Intake & Output 08/19/17 08/20/17 08/20/17 18:59 06:59 18:59 Intake Total 480 100 Output Total 1200 1000 Balance -720 -900 Weight 119.3 kg Intake: Intake, IV Titration 100 Amount Sodium Ferric Gluconat- 100 Sucrose 125 mg In Sodium Chloride 0.9% 100 ml @ 100 mls/hr IVPB DAILY [facility] Rx#:[id number] Oral 480 Output: Chest Tube Drainage 700 right lateral 700 Urine 1200 300 Other: Voiding Method Toilet Toilet # Voids 1 - Constitutional General appearance: Present: cooperative, no acute distress, obese - Respiratory Details: Lungs sounds diminished bilaterally. Respirations even, nonlabored. Currently on room air with oxygen saturation 94%. Achieving 1000 mL on his incentive spirometry. Posterior right pleural chest tubes to water seal, 350 mL serous drainage overnight, 500 mL drainage in the last 24 hours. No air leak present. - Cardiovascular Details: S1, S2 present. Regular rate and rhythm, sinus rhythm to sinus tach on telemetry. Palpable peripheral pulses bilaterally. No edema present. No calf pain or tenderness noted. - Gastrointestinal Gastrointestinal Comment(s): Abdomen soft, nontender, nondistended. Active bowel sounds 4 quadrants. Tolerating diet. Positive bowel. - Genitourinary Genitourinary Comment(s): Continues to void yellow urine. - Integumentary Integumentary Comment(s): Skin is warm and dry with evidence of good perfusion. Right chest tube sites covered with intact dressing. Multiple tattoos present. - Neurologic Neurologic: Present: CNII-XII intact - Musculoskeletal Musculoskeletal: Present: gait normal, strength equal bilaterally - Psychiatric Psychiatric: Present: A&O x's 3, appropriate affect, intact judgment & insight - Allied health notes Allied health notes reviewed: nursing - Labs CBC & Chem 7: 08/20/17 05:44 08/20/17 05:44 Labs: Abnormal Lab Results - Last 24 Hours (Table) 08/20/17 08/20/17 Range/Units 05:44 05:44 RBC 3.07 L (4.30-5.90) m/uL Hgb 8.0 L (13.0-17.5) gm/dL Hct 26.4 L (39.0-53.0) % MCHC 30.3 L (31.0-37.0) g/dL Sodium 147 H (137-145) mmol/L Chloride 108 H (98-107) mmol/L Glucose 125 H (74-99) mg/dL Calcium 8.3 L (8.4-10.2) mg/dL Alkaline Phosphatase 131 H (38-126) U/L Total Protein 5.1 L (6.3-8.2) g/dL Albumin 2.6 L (3.5-5.0) g/dL Microbiology - Last 24 Hours (Table) 08/15/17 14:30 Anaerobic Culture - Final Pleural Fluid 08/15/17 14:30 Anaerobic Culture - Final Pleural Fluid 08/15/17 14:30 Gram Stain - Final Pleural Fluid Body Fluid Culture - Final 08/15/17 14:30 Gram Stain - Final Pleural Fluid Tissue Culture - Final - Imaging and Cardiology Chest x-ray: report reviewed, image reviewed Assessment and Plan (1) Abdominal pain Current Visit: Yes Status: Acute Code(s): R10.9 - UNSPECIFIED ABDOMINAL PAIN SNOMED Code(s): 04467062 (2) Pancreatic pseudocyst Current Visit: Yes Status: Acute Code(s): K86.3 - PSEUDOCYST OF PANCREAS SNOMED Code(s): 158732838 (3) Pleural effusion Current Visit: Yes Status: Acute Code(s): J90 - PLEURAL EFFUSION, NOT ELSEWHERE CLASSIFIED SNOMED Code(s): 00429639 (4) Fever Current Visit: Yes Status: Acute Code(s): R50.9 - FEVER, UNSPECIFIED SNOMED Code(s): 285599360 (5) Pancreatitis Current Visit: Yes Status: Chronic Code(s): K85.90 - ACUTE PANCREATITIS WITHOUT NECROSIS OR INFECTION, UNSP SNOMED Code(s): 52871581 (6) History of hepatitis C Current Visit: No Status: Resolved Code(s): Z86.19 - PERSONAL HISTORY OF OTHER INFECTIOUS AND PARASITIC DISEASES SNOMED Code(s): 67055564741693 (7) Obesity (BMI 30-39.9) Current Visit: Yes Status: Chronic Code(s): E66.9 - OBESITY, UNSPECIFIED SNOMED Code(s): 615459651 Plan: 1. Will continue posterior chest tube secondary to high output, monitor for air leak and drainage amount. 2. Encourage incentive spirometry use 10 times every hour while awake. Encourage smoking cessation. Continue Medrol dose pack. 3. Pain management with current medication regimen. 4. Medical comorbidities to be managed his primary care, pulmonology, general surgery. 5. Increase activity, ambulate in hallway as tolerated. 6. More recommendations to follow. Time with Patient: Greater than 30
[2017-08-20] MEDS: MORPHINE ORAL SOLN 10 MG/5 ML CUP PO PRN ×3 (11:04→22:31)
--- NOTE | 2017-08-20 11:42 | P.PN ---
Subjective Progress Note Date: 08/20/17 Principal diagnosis: Right-sided loculated pleural effusion, status post decorticationVale Martinez is a 42-year-old white male patient of Dr. Bandar Camacho who presented to the emergency department on 08/09/2017 at 1438 with complaints of diffuse abdominal pain across the left upper quadrant, fever. Denied any nausea, denied any vomiting, or diarrhea or abdominal distention. Reports poor oral intake. Patient was recently hospitalized for chronic pancreatitis and underwent recent laparoscopic cholecystectomy for acute cholelithiasis on 2017 Dr. Hicks and discharged home on 07/26/2017 on oral antibiotics which the patient has completed. Patient was treated for pancreatitis, and a pancreatic pseudocyst and cholelithiasis. He was seen in the follow-up and an office visit a week ago and was feeling well at that time. The plan was to have an EGD with possible drainage of the pancreatic pseudocyst. 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 CT of abdomen and pelvis with contrast revealed previously seen large cystic mass in the anterior body of the pancreas, with mildly inflamed upper anterior margin, and a new right pleural effusion compared to the prior study. Patient was febrile, with a temp of 101.4F presentation and has been intermittently febrile during this admission. Hemodynamically stable. Tachycardic with a heart rate up to 110 BPM, and tachypneic at times. Lab work on admission showed WBC of 14.5, hemoglobin of 12.1, electrolytes were within normal limits, renal profile was within normal limits, alkaline phosphatase was 207, malaise was 145 which is down from 152 upon discharge on 07/20/2017, lipase was 391. Upon his were negative 3. Urinalysis showed 2+ protein, 1+ nitrites. Patient was given 2 L of IV fluid boluses of 0.9 normal saline in the emergency room, and his maintenance IV fluids were started at 120 ML per hour. Patient was started on Zosyn for antibiotic coverage, he was given IV Toradol and morphine pain control. Patient was seen by general surgery and had an EGD on 08/10/2017, and was found to have mild antral gastritis. There was no visualization of the pancreatic pseudocyst during the procedure. The distal and the proximal esophagus appeared normal. He was then transferred to a regular medical surgical room in stable condition. Patient continued to be intermittently febrile, slightly dyspneic, but in no respiratory distress. Blood cultures were collected and sent, patient was given an additional 1 L of 0.9 normal saline IV bolus, her a total of 3 L of IV 0.9 bolus. Infectious disease service consult was initiated who recommended to continue with Zosyn at this time for antibiotic coverage. Lactic acid was within normal at 1.9. Today's blood work shows WBC of 13.3, hemoglobin of 10.9, INR 1.3, electrolytes and renal profile remained within normal limits. Patient was seen sitting up on the edge of the bed, denying any acute distress. Denied any chest pain, denied any acute dyspnea. Slightly pale and diaphoretic, receiving IV bolus of 0.9 normal saline. Some left upper abdominal tenderness, but abdomen is soft. Chest x-ray was obtained and showed right lower lobe pneumonia versus atelectasis and possible associated effusion. S1 is followed by CT chest without contrast which showed moderately large partially loculated right-sided pleural effusion, areas of compressive atelectasis, or infiltrate. Remote granulomatous changes. Patient is currently on 2 L per nasal cannula with O2 sat 95%, most recent vitals include a temperature of 98.1F, heart rate of 100 bpm, respiratory rate of 18, and blood pressure 119/64. On 08/11/2017 patient is seen in follow-up. He is resting in bed, mildly dyspneic, but in no acute distress. He is diaphoretic, does have some mild chest discomfort on deep inspiration over right posterior chest, lung sounds are diminished over right posterior lobe, and there are bibasilar crackles present. ID service has changed the patient's antibiotics from Zosyn to meropenem, yesterday we added vancomycin. Last fever was on 08/10/2017 at 1444 with a temp of 100.5F, no fevers overnight. Patient is hemodynamically stable , he was fluid resuscitated with 3 L of 0.9 normal saline fluid boluses, and his current IV is 0.9 normal saline at a rate of 120 ML per hour. His abdomen remains diffusely tender over upper bilateral quadrants, as well as the mid abdomen., Denies any nausea vomiting or diarrhea. He is receiving IV morphine pain control. Today's lab work was reviewed, WBC is 12.2, hemoglobin is 10.4, electrolytes within normal limits, BUN is 7, creatinine is 0.68, asthma lactic acid was within normal limits at 1.9, he is voiding. Continue current antibiotic coverage, we will potentially consult with interventional radiology in regards to drainage of his right-sided loculated pleural effusion, which is suspected to be parapneumonic in nature. The patient is seen again today 08/12/2017 in follow-up on the regular medical floor. He is awake and alert. He remains somewhat diaphoretic. Quite dyspneic on minimal exertion. He is maintaining O2 saturations in the low 90s when checked on room air. He's been up and bleeding in the room. He did undergo a ultrasound guided thoracentesis for diagnosis yesterday by IR. Cultures are pending. The fluid was bloody with total protein 4.3 and an LDH of 901. White count today 9.3. Hemoglobin 9.8. Creatinine 1.18. He remains covered with vancomycin and meropenem. On 08/13/2017 patient seen in follow-up. Today's chest x-ray shows increasing right-sided pleural effusion, volume loss and underlying infiltrate. Ultrasound guided right thoracentesis, on 08/11/2017 with drainage of 60 mL of pleural fluid. Urinalysis is consistent with exudative plural effusion secondary to pneumonia. We will obtain CT chest today to assess the loculation of the right pleural fluid. His abdominal pain is improving, although he still has persistent left-sided abdominal discomfort. Has been afebrile over the last 24 hours, and 2 L per nasal cannula O2 sat 96%. Hemodynamically stable. His amylase and lipase are now within normal limits. And accommodation of meropenem and vancomycin, pleural fluid culture is negative for any growth so far, will await the results of the final cultures, blood cultures are negative. Sputum cultures positive for Fidelia albicans and Fidelia glabrata, which is most likely contaminated by oral fortino. Surgery is following, and was discussed with the patient whether he would want to be transferred to a tertiary institution, patient's amylase and lipase are coming down, and his bone pain is improving. On 08/14/2017 and I'm seeing this patient for a follow-up his condition is decompensated significantly over the past few days and the patient got transferred to a telemetry unit. He is doing poorly. He has become progressively more short of breath and the CAT scan of the chest done yesterday showed increasing right-sided pleural effusion along with volume loss and progressive infiltration of the right lung is along with atelectatic changes and some loculation of the right-sided pleural effusion. The findings are consistent withinfection and possible empyema. The pleural fluid that was drained earlier for diagnostic purposes was complicated parapneumonic effusion with elevated LDH and protein in the fluid culture was negative for any bacterial growth. Previous sputum analysis at time of admission showed a combination of Fidelia albicans and glabrata.A subsequent chest x-ray from today shows worsening of the right sided pneumonia/consolidation and there is obvious loculation of the pleural fluid based on the CAT scan findings. I discussed this case with a thoracic surgeon and the patient will be taken to the operating room tomorrow for a video-assisted thoracoscopic evaluation, and possible decortication. I also noted that the patient's renal function has been progressively getting worse. Creatinine is up to 1.6. Stop all nonsteroidal anti-inflammatory medication. Vancomycin level is toxic and this is currently on hold for now. He is also on IV Merrem. Afebrile. Oral intake is diminished specially his underlying pneumonia. No nausea. No vomiting. No significant abdominal pain for now. On 08/15/2017, the patient is quite short of breath. He is uncomfortable even at rest. He is currently on 3 L of oxygen by nasal cannula and his pulse ox is 99%. He is still spiking on and off temperature in the last temperature spike was yesterday evening when he spike a temperature of 101.4. Otherwise, he is nothing by mouth for now and the plan is for this patient to be taken to the operating room for a video-assisted thoracoscopy and possible decortication. He remains on a combination of meropenem and vancomycin. Vanco trough was quite elevated at was toxic and this could've contributed to his acute kidney injury. His creatinine is stable for now and the values at 1.5. Hemoglobin stable at 9.2. White cell count is not elevated. The patient was taken off the nonsteroidal anti-inflammatory medication. This subsequently vancomycin level is down to 20. Otherwise is producing adequate amount of urine output and the patient is being well hydrated. I suspect that he may end up going to the ICU following his thoracic surgery and this will largely depend on his overall progress. I have spoken to this patient at length. I also discussed the case with his mother the bedside. No nausea. No vomiting. No significant abdominal pain. No altered mentation. Reevaluated today on 08/16/2017, patient is doing relatively well, off oxygen, relatively asymptomatic, his chest x-ray continues to show significant right lower lobe consolidation. But overall there has been significant improvement since his surgery there is no evidence of pneumothorax. There is minimal subcutaneous emphysema. Pathology from the decortication is still pending. CBC is relatively normal and his basic metabolic profile is showing improvement in his creatinine down to 1.40. Sodium is a bit improved at 146 today. The patient is seen again today 08/17/2017 in follow-up on the selective care unit. He is currently awake and alert in no acute distress. Chest x-ray shows stable right-sided consolidation and pleural effusion. Minimal subcutaneous emphysema. He is maintaining good O2 saturations in the upper 90s on 2 L/m per nasal cannula. He's been afebrile. He is status post right thorascopic total lung decortication on 08/15/2017. Fluid cultures pending. Pathology is pending. White count 7.6. Hemoglobin 9.0. Sodium 147. Creatinine 1.49. Reevaluated today on 08/18/2017, patient seems to be doing quite well, he is postoperative day #3 right-sided thoracoscopic total lung decortication. Patient is relatively asymptomatic, in no distress, chest tube remains in place , and chest x-ray is showing definite improvement over the last couple of days. CBC is relatively unremarkable hemoglobin is 9, basic metabolic profile is relatively normal with significant improvement in his renal status over the last couple of days. The patient is seen again today 08/19/2017 in follow-up on the selective care unit. This is postoperative day #4 of her right thigh sided thorascopic total lung decortication. Patient is resting quite comfortably in bed. He is awake and alert in no acute distress. He states he is breathing easier every day. No worsening shortness of breath, cough or congestion. Chest x-ray shows improved aeration. Chest tube remains in place. He continues to maintain good O2 saturations in the 90s on room air. He's been afebrile. Hemodynamically stable. Pathology is pending. Cultures reveal no growth. White count 8.5. Hemoglobin 8.0. Creatinine 1.26. Antibiotics were discontinued today. Steroids were initiated. Reevaluated today on 08/20/2017, patient is postoperative day #5, doing well, continues to have significant significant amount of drainage from the chest tube. Hence the chest tube will remain in place, he was evaluated by thoracic surgery, and the plan is to move the chest tube in the next 24 hours. Patient is relatively asymptomatic, no cough no wheezing no shortness of breath. Labs were reviewed and they seem to be relatively unremarkable including significant improvement noted in his renal profile and his hemoglobin is still 8.0. Objective - Vital Signs Vital signs: Vital Signs Temp 97.8 F 08/20/17 07:49 Pulse 88 08/20/17 11:11 Resp 16 08/20/17 11:11 BP 145/80 08/20/17 11:11 Pulse Ox 97 08/20/17 11:11 Intake & Output 08/19/17 08/20/17 08/20/17 18:59 06:59 18:59 Intake Total 480 100 Output Total 1200 1000 25 Balance -720 -900 -25 Weight 119.3 kg Intake: Intake, IV Titration 100 Amount Sodium Ferric Gluconat- 100 Sucrose 125 mg In Sodium Chloride 0.9% 100 ml @ 100 mls/hr IVPB DAILY [facility] Rx#:[id number] Oral 480 Output: Chest Tube Drainage 700 25 right lateral 700 25 Urine 1200 300 Other: Voiding Method Toilet Toilet # Voids 1 - Exam GENERAL EXAM: Alert, pleasant, 42-year-old white male patient, does not appear to be in acute distress HEAD: Normocephalic/atraumatic. EYES: Normal reaction of pupils, equal size. Conjunctiva pink, sclera white. NOSE: Clear with pink turbinates. THROAT: No erythema or exudates. NECK: No masses, no JVD, no thyroid enlargement, no adenopathy. CHEST: No chest wall deformity. Symmetrical expansion. LUNGS: Diminished breath sounds over right lower lobe, no crackles nor rhonchi no wheezes chest tube was noted. CVS: Regular rate and rhythm, normal S1 and S2, no gallops, no murmurs, no rubs ABDOMEN: Soft, nontender. No hepatosplenomegaly, normal bowel sounds, no guarding or rigidity. EXTREMITIES: No clubbing, no edema, no cyanosis, 2+ pulses and upper and lower extremities. MUSCULOSKELETAL: Muscle strength and tone normal. SPINE: No scoliosis or deformity SKIN: No rashes CENTRAL NERVOUS SYSTEM: Alert and oriented -3. No focal deficits, tone is normal in all 4 extremities. PSYCHIATRIC: Alert and oriented -3. Appropriate affect. Intact judgment and insight. - Labs CBC & Chem 7: 08/20/17 05:44 08/20/17 05:44 Labs: Abnormal Lab Results - Last 24 Hours (Table) 08/20/17 08/20/17 Range/Units 05:44 05:44 RBC 3.07 L (4.30-5.90) m/uL Hgb 8.0 L (13.0-17.5) gm/dL Hct 26.4 L (39.0-53.0) % MCHC 30.3 L (31.0-37.0) g/dL Sodium 147 H (137-145) mmol/L Chloride 108 H (98-107) mmol/L Glucose 125 H (74-99) mg/dL Calcium 8.3 L (8.4-10.2) mg/dL Alkaline Phosphatase 131 H (38-126) U/L Total Protein 5.1 L (6.3-8.2) g/dL Albumin 2.6 L (3.5-5.0) g/dL Microbiology - Last 24 Hours (Table) 08/15/17 14:30 Anaerobic Culture - Final Pleural Fluid 08/15/17 14:30 Anaerobic Culture - Final Pleural Fluid 08/15/17 14:30 Gram Stain - Final Pleural Fluid Body Fluid Culture - Final 08/15/17 14:30 Gram Stain - Final Pleural Fluid Tissue Culture - Final Assessment and Plan Assessment: 1. Right lung pneumonia complicated by development of a parapneumonic effusion which is complicated , cultures have been negative. The pleural fluid analysis that was done through a diagnostic thoracentesis showed elevated LDH and protein. Cultures of been negative. The patient has progressive worsening and opacification of the right lung. Patient is status post decortication, pathology showed benign mesothelial tissue, reactive hyperplasia fibrosis and fat necrosis with inflamed granulation tissue. No malignancy was noted. 2 acute hypoxic respiratory failure secondary to above 3 episodic fever, multifactorial. Could be related to underlying lung infection versus pancreatitis. Infected pancreatic pseudocys felt to be less likely. 4 chronic pancreatitis with formation of pancreatic pseudocyst, status post EGD 5 status post endoscopic cholecystectomy performed on 07/21/2017 6 hepatitis C viral infection secondary to IV drug use 7 history of drug abuse 8 major depression to the mental health facility December 2016 9 Chronic cholelithiasis status post cholecystectomy 10 Current mild leukocytosis 11 anemia, mild, stable Recommendation: Continue present supportive care measures, continue incentive spirometry, bronchodilators, ambulation, possible discharge planning once the chest tube has been removed. Discussed his condition with thoracic surgery on the case. The plan is to remove the chest tube tomorrow, and arrange for discharge planning over the weekend. Time with Patient: Less than 30
--- NOTE | 2017-08-20 18:23 | PN ---
PROGRESS NOTE SUBJECTIVE: 42-year-old white male postop fever, pancreatitis, pancreatic pseudocyst, status post hemopneumothorax for which a chest tube may be pulled tomorrow, wheezing, ambulation is increasing. Abdominal pain is decreasing. Family is requesting a CT scan of his abdomen prior to discharge. Psych: Fair mood and affect. Neurologic: Alert and oriented x3, GI soft. Hematology: Negative Homans. Vascular normal dorsalis pedis, posterior tibial, radial pulse. Ophthalmologic: Pupils equal, round, reactive to accommodation. PLAN: Remove chest tube tomorrow. Do CT scan of the abdomen prior to discharge. Continue current treatment. Await chest tube removal and possibly discharge home. MMODL / IJN: [id number] /
--- NOTE | 2017-08-20 18:31 | CT ---
EXAMINATION TYPE: CT abdomen wo con DATE OF EXAM: 08/20/2017 COMPARISON: 08/09/2017 HISTORY: f/u pancreatic cyst CT DLP: 875 mGycm Automated exposure control for dose reduction was used. TECHNIQUE: Helical acquisition of images was performed from the lung bases through the top of iliac crest to include entire abdomen. CONTRAST: Performed without Oral Contrast and without IV contrast. FINDINGS: There is a right chest tube. There are bilateral pleural effusions. There is a small pneumothorax at the right lung base. There is low-attenuation throughout the liver consistent with fatty infiltration. Heart appears enlar ged. The spleen is large and measures 16 cm. The bile ducts are not dilated. There is a 6 x 3 cm cyst in the body of the pancreas. I see no solid pancreatic mass. There is some fluid in the anterior pararenal space bilaterally. The kidneys show no hydronephrosis. Kidneys have normal size and contour. There is no adrenal mass. There is no retroperitoneal adenopath y. I see no intestinal wall thickening. There is no sign of a bowel obstruction. IMPRESSION: THERE IS A PANCREATIC CYST CONSISTENT WITH PSEUDOCYST THAT IS SLIGHTLY SMALLER THAN THE OLD CT SCAN O F 08/09/2017. MODERATE HEPATOSPLENOMEGALY. FATTY INFILTRATION OF THE LIVER. THERE IS A NEW LEFT PLEURAL EFFUSION AND LEFT BASILAR INCREASED ATELECTASIS COMPARED TO OLD EXAM. THE RE IS SLIGHT DECREASED RIGHT PLEURAL EFFUSION. THERE IS NEW RIGHT CHEST TUBE. THERE IS NEW SUBCUTANEO US EDEMA OVER THE LOWER LUMBAR SPINE.
[2017-08-20] MEDS: MIRTAZAPINE 15 MG TAB PO SCH (20:22)
[2017-08-20] MEDS: SENNOSIDES-DOCUSATE SODIUM 1 EACH TAB PO SCH (20:23)
--- NOTE | 2017-08-21 00:05 | PN ---
PROGRESS NOTE DATE OF SERVICE: 08/20/2017. REASON FOR FOLLOWUP: 1. Right-sided pleural effusion, culture negative. 2. Pancreatic pseudocyst. INTERVAL HISTORY: The patient is afebrile. He has been breathing comfortably. Denies any chest pain, has improved. No abdominal pain. No nausea, vomiting or any diarrhea. EXAMINATION: Blood pressure is 144/80 with a pulse of 90, temperature 97.6. He is 94% on room air. General description is a middle-aged male lying in bed in no distress. RESPIRATORY SYSTEM: Unlabored breathing with decreased breath sounds in the base. No wheeze. HEART: S1, S2. Regular rate and rhythm. ABDOMEN: Soft. No tenderness. Extremities have trace edema of feet. LABS: Hemoglobin 8, white count of 8.3 with a BUN of 18, creatinine 1.10. All his cultures remain to be negative. DIAGNOSTIC IMPRESSION AND PLAN: Patient with a right-sided multiloculated fluid, status post a video-assisted thoracoscopic surgery, mostly serous drainage and those cultures have been negative. The patient also has a pancreatic pseudocyst with a CT scan repeat that showed overall decrease in size of that fluid. Currently off antibiotic therapy per CT Surgery with no fever, no white count. We will continue to monitor closely off antibiotics. Continue supportive care. MMODL / IJN: [id number] /
[2017-08-21] MEDS: HYDROmorphone 2 MG TAB PO PRN ×4 (03:38→23:32)
[2017-08-21] MEDS: PANTOPRAZOLE 40 MG TABLET PO SCH (06:33)
--- NOTE | 2017-08-21 06:35 | XR ---
EXAMINATION TYPE: XR chest 2V DATE OF EXAM: 08/21/2017 HISTORY: post vats. REFERENCE: Previous study dated 08/20/2017. FINDINGS: The right pleural drain remains in place. There are bilateral effusions. There is bibasilar airspace disease. Opacity in the periphery of the r ight lung is decreased in size. Pulmonary vasculature has improved. IMPRESSION: IMPROVING POSTOPERATIVE CHANGE.
[2017-08-21] MEDS: MORPHINE ORAL SOLN 10 MG/5 ML CUP PO PRN ×4 (06:37→19:57)
[2017-08-21 06:41] LABS: Anion Gap 12 mmol/L; Blood Urea Nitrogen 19 mg/dL (9-20); Calcium 8.2 mg/dL (8.4-10.2); Carbon Dioxide 27 mmol/L (22-30); Chloride 107 mmol/L (98-107); Glucose 83 mg/dL (74-99); Potassium 3.4 mmol/L (3.5-5.1); Sodium 146 mmol/L (137-145)
[2017-08-21] MEDS: IPRATROPIUM-ALBUTEROL 3 ML NEB IH SCH ×4 (07:53→19:23)
[2017-08-21] MEDS: HEPARIN SODIUM,PORCINE 5,000 UNIT/ML 1 ML VIAL SQ SCH ×3 (08:11→23:34)
[2017-08-21] MEDS: OLANZapine 5 MG TAB PO SCH (08:12)
[2017-08-21] MEDS: lamoTRIgine 100 MG TAB PO SCH ×2 (08:12→20:49)
[2017-08-21] MEDS: SODIUM FERRIC GLUCONAT-SUCROSE 125 MG in SODIUM CHLORIDE 0.9% 100 ML IVPB SCH (08:24)
[2017-08-21] MEDS: methylPREDNISolone 4 MG TAB PO SCH (08:33)
[2017-08-21] MEDS ORDERED: POTASSIUM CHLORIDE ER 20 MEQ TAB.ER PO STA (08:34)
--- NOTE | 2017-08-21 08:53 | P.PN ---
Subjective Progress Note Date: 08/21/17 Principal diagnosis: Loculated right-sided pleural effusion. Previous medical history of chronic pancreatitis, COPD, seizure disorder, hepatitis C, bipolar disorder, current tobacco dependence, previous IV drug abuse as well as prescription drug abuse, ERCP 6 months ago, cholecystectomy on July 22. POD #6 right thoracoscopic total lung decortication Patient is currently sitting up in bed in no acute distress. States pain is controlled on oral medication. Denies shortness of breath. Patient has been ambulatory in the hallway. Drainage into the right chest tube has slowed considerably. Objective - Vital Signs Vital signs: Vital Signs Temp 97 F L 08/21/17 08:12 Pulse 93 08/21/17 08:12 Resp 18 08/21/17 08:12 BP 139/70 08/21/17 08:12 Pulse Ox 92 L 08/21/17 08:12 Intake & Output 08/20/17 08/21/17 08/21/17 18:59 06:59 18:59 Intake Total 790 710 Output Total 50 10 Balance 740 -10 710 Weight 112.4 kg Intake: Oral 790 710 Output: Chest Tube Drainage 50 10 right lateral 50 10 Other: Voiding Method Toilet Toilet Toilet # Voids 3 - Constitutional General appearance: Present: cooperative, no acute distress, obese - Respiratory Details: Lungs sounds diminished bilaterally, right greater than left. Respirations even , nonlabored. Currently on room air with oxygen saturation 92%. Achieving 1500 mL on his incentive spirometry. Posterior right pleural chest tubes to water seal, 5 mL serous drainage overnight, 100 mL drainage in the last 24 hours. No air leak present. - Cardiovascular Details: S1, S2 present. Regular rate and rhythm, sinus rhythm to sinus tach on telemetry. Palpable peripheral pulses bilaterally. No edema present. No calf pain or tenderness noted. - Gastrointestinal Gastrointestinal Comment(s): Abdomen soft, nontender, nondistended. Active bowel sounds 4 quadrants. Tolerating diet. Positive bowel. - Genitourinary Genitourinary Comment(s): Continues to void yellow urine. - Integumentary Integumentary Comment(s): Skin is warm and dry with evidence of good perfusion. Right chest tube sites covered with intact dressing. Multiple tattoos present. - Neurologic Neurologic: Present: CNII-XII intact - Musculoskeletal Musculoskeletal: Present: gait normal, strength equal bilaterally - Psychiatric Psychiatric: Present: A&O x's 3, appropriate affect, intact judgment & insight - Allied health notes Allied health notes reviewed: nursing - Labs CBC & Chem 7: 08/20/17 05:44 08/21/17 05:54 Labs: Abnormal Lab Results - Last 24 Hours (Table) 08/21/17 Range/Units 05:54 Sodium 146 H (137-145) mmol/L Potassium 3.4 L (3.5-5.1) mmol/L Calcium 8.2 L (8.4-10.2) mg/dL - Imaging and Cardiology Chest x-ray: report reviewed, image reviewed Assessment and Plan (1) Abdominal pain Current Visit: Yes Status: Acute Code(s): R10.9 - UNSPECIFIED ABDOMINAL PAIN SNOMED Code(s): 19247972 (2) Pancreatic pseudocyst Current Visit: Yes Status: Acute Code(s): K86.3 - PSEUDOCYST OF PANCREAS SNOMED Code(s): 670351157 (3) Pleural effusion Current Visit: Yes Status: Acute Code(s): J90 - PLEURAL EFFUSION, NOT ELSEWHERE CLASSIFIED SNOMED Code(s): 18074177 (4) Fever Current Visit: Yes Status: Acute Code(s): R50.9 - FEVER, UNSPECIFIED SNOMED Code(s): 854316002 (5) Pancreatitis Current Visit: Yes Status: Chronic Code(s): K85.90 - ACUTE PANCREATITIS WITHOUT NECROSIS OR INFECTION, UNSP SNOMED Code(s): 95605806 (6) History of hepatitis C Current Visit: No Status: Resolved Code(s): Z86.19 - PERSONAL HISTORY OF OTHER INFECTIOUS AND PARASITIC DISEASES SNOMED Code(s): 48020416514684 (7) Obesity (BMI 30-39.9) Current Visit: Yes Status: Chronic Code(s): E66.9 - OBESITY, UNSPECIFIED SNOMED Code(s): 294452062 Plan: 1. Likely will discontinue right posterior chest tube today. Chest x-ray in the morning. 2. Encourage incentive spirometry use 10 times every hour while awake. Encourage smoking cessation. Continue Medrol dose pack. 3. Pain management with current medication regimen. 4. Medical comorbidities to be managed his primary care, pulmonology, general surgery. 5. Increase activity, ambulate in hallway as tolerated. 6. More recommendations to follow. Time with Patient: Greater than 30
--- NOTE | 2017-08-21 12:03 | PN ---
PROGRESS NOTE SUBJECTIVE: This is a 42-year-old white male with chest tube, postop gallbladder surgery with pancreatic pseudocyst and a right chest effusion hemopneumothorax. He has been feeling better as the chest tube has been placed in and is being weaned off the chest tube over the last next 24 to 48 hours. When he gets chest tube out, we will get him ambulating and we will get him discharged home to follow up as an outpatient for pancreatic pseudocyst drainage in 2-3 weeks. Cardiovascular S1, S2. Lungs are clear except at the right lung base. Hematology negative Homans. Psych fair mood and affect. IMPRESSION: 1. Pancreatitis pseudocyst. 2. Pulmonary hemopneumothorax. 3. Postop fever. 4. Bipolar disorder. 5. Obesity. Please see further orders. Possible discharge if the chest tube is removed and the patient improves. RANDY / WYATTN: [id number] /
--- NOTE | 2017-08-21 13:49 | P.PN ---
Subjective Progress Note Date: 08/21/17 Principal diagnosis: Right-sided loculated pleural effusion, likely a parapneumonic effusion secondary to hospital-acquired pneumonia versus aspiration pneumoniaVale Martinez is a 42-year-old white male patient of Dr. Bandar Camacho who presented to the emergency department on 08/09/2017 at 1438 with complaints of diffuse abdominal pain across the left upper quadrant, fever. Denied any nausea, denied any vomiting, or diarrhea or abdominal distention. Reports poor oral intake. Patient was recently hospitalized for chronic pancreatitis and underwent recent laparoscopic cholecystectomy for acute cholelithiasis on 2017 Dr. Hicks and discharged home on 07/26/2017 on oral antibiotics which the patient has completed. Patient was treated for pancreatitis, and a pancreatic pseudocyst and cholelithiasis. He was seen in the follow-up and an office visit a week ago and was feeling well at that time. The plan was to have an EGD with possible drainage of the pancreatic pseudocyst. 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 CT of abdomen and pelvis with contrast revealed previously seen large cystic mass in the anterior body of the pancreas, with mildly inflamed upper anterior margin, and a new right pleural effusion compared to the prior study. Patient was febrile, with a temp of 101.4F presentation and has been intermittently febrile during this admission. Hemodynamically stable. Tachycardic with a heart rate up to 110 BPM, and tachypneic at times. Lab work on admission showed WBC of 14.5, hemoglobin of 12.1, electrolytes were within normal limits, renal profile was within normal limits, alkaline phosphatase was 207, malaise was 145 which is down from 152 upon discharge on 07/20/2017, lipase was 391. Upon his were negative 3. Urinalysis showed 2+ protein, 1+ nitrites. Patient was given 2 L of IV fluid boluses of 0.9 normal saline in the emergency room, and his maintenance IV fluids were started at 120 ML per hour. Patient was started on Zosyn for antibiotic coverage, he was given IV Toradol and morphine pain control. Patient was seen by general surgery and had an EGD on 08/10/2017, and was found to have mild antral gastritis. There was no visualization of the pancreatic pseudocyst during the procedure. The distal and the proximal esophagus appeared normal. He was then transferred to a regular medical surgical room in stable condition. Patient continued to be intermittently febrile, slightly dyspneic, but in no respiratory distress. Blood cultures were collected and sent, patient was given an additional 1 L of 0.9 normal saline IV bolus, her a total of 3 L of IV 0.9 bolus. Infectious disease service consult was initiated who recommended to continue with Zosyn at this time for antibiotic coverage. Lactic acid was within normal at 1.9. Today's blood work shows WBC of 13.3, hemoglobin of 10.9, INR 1.3, electrolytes and renal profile remained within normal limits. Patient was seen sitting up on the edge of the bed, denying any acute distress. Denied any chest pain, denied any acute dyspnea. Slightly pale and diaphoretic, receiving IV bolus of 0.9 normal saline. Some left upper abdominal tenderness, but abdomen is soft. Chest x-ray was obtained and showed right lower lobe pneumonia versus atelectasis and possible associated effusion. S1 is followed by CT chest without contrast which showed moderately large partially loculated right-sided pleural effusion, areas of compressive atelectasis, or infiltrate. Remote granulomatous changes. Patient is currently on 2 L per nasal cannula with O2 sat 95%, most recent vitals include a temperature of 98.1F, heart rate of 100 bpm, respiratory rate of 18, and blood pressure 119/64. On 08/11/2017 patient is seen in follow-up. He is resting in bed, mildly dyspneic, but in no acute distress. He is diaphoretic, does have some mild chest discomfort on deep inspiration over right posterior chest, lung sounds are diminished over right posterior lobe, and there are bibasilar crackles present. ID service has changed the patient's antibiotics from Zosyn to meropenem, yesterday we added vancomycin. Last fever was on 08/10/2017 at 1444 with a temp of 100.5F, no fevers overnight. Patient is hemodynamically stable , he was fluid resuscitated with 3 L of 0.9 normal saline fluid boluses, and his current IV is 0.9 normal saline at a rate of 120 ML per hour. His abdomen remains diffusely tender over upper bilateral quadrants, as well as the mid abdomen., Denies any nausea vomiting or diarrhea. He is receiving IV morphine pain control. Today's lab work was reviewed, WBC is 12.2, hemoglobin is 10.4, electrolytes within normal limits, BUN is 7, creatinine is 0.68, asthma lactic acid was within normal limits at 1.9, he is voiding. Continue current antibiotic coverage, we will potentially consult with interventional radiology in regards to drainage of his right-sided loculated pleural effusion, which is suspected to be parapneumonic in nature. The patient is seen again today 08/12/2017 in follow-up on the regular medical floor. He is awake and alert. He remains somewhat diaphoretic. Quite dyspneic on minimal exertion. He is maintaining O2 saturations in the low 90s when checked on room air. He's been up and bleeding in the room. He did undergo a ultrasound guided thoracentesis for diagnosis yesterday by IR. Cultures are pending. The fluid was bloody with total protein 4.3 and an LDH of 901. White count today 9.3. Hemoglobin 9.8. Creatinine 1.18. He remains covered with vancomycin and meropenem. On 08/13/2017 patient seen in follow-up. Today's chest x-ray shows increasing right-sided pleural effusion, volume loss and underlying infiltrate. Ultrasound guided right thoracentesis, on 08/11/2017 with drainage of 60 mL of pleural fluid. Urinalysis is consistent with exudative plural effusion secondary to pneumonia. We will obtain CT chest today to assess the loculation of the right pleural fluid. His abdominal pain is improving, although he still has persistent left-sided abdominal discomfort. Has been afebrile over the last 24 hours, and 2 L per nasal cannula O2 sat 96%. Hemodynamically stable. His amylase and lipase are now within normal limits. And accommodation of meropenem and vancomycin, pleural fluid culture is negative for any growth so far, will await the results of the final cultures, blood cultures are negative. Sputum cultures positive for Fidelia albicans and Fidelia glabrata, which is most likely contaminated by oral fortino. Surgery is following, and was discussed with the patient whether he would want to be transferred to a tertiary institution, patient's amylase and lipase are coming down, and his bone pain is improving. On 08/14/2017 and I'm seeing this patient for a follow-up his condition is decompensated significantly over the past few days and the patient got transferred to a telemetry unit. He is doing poorly. He has become progressively more short of breath and the CAT scan of the chest done yesterday showed increasing right-sided pleural effusion along with volume loss and progressive infiltration of the right lung is along with atelectatic changes and some loculation of the right-sided pleural effusion. The findings are consistent withinfection and possible empyema. The pleural fluid that was drained earlier for diagnostic purposes was complicated parapneumonic effusion with elevated LDH and protein in the fluid culture was negative for any bacterial growth. Previous sputum analysis at time of admission showed a combination of Fidelia albicans and glabrata.A subsequent chest x-ray from today shows worsening of the right sided pneumonia/consolidation and there is obvious loculation of the pleural fluid based on the CAT scan findings. I discussed this case with a thoracic surgeon and the patient will be taken to the operating room tomorrow for a video-assisted thoracoscopic evaluation, and possible decortication. I also noted that the patient's renal function has been progressively getting worse. Creatinine is up to 1.6. Stop all nonsteroidal anti-inflammatory medication. Vancomycin level is toxic and this is currently on hold for now. He is also on IV Merrem. Afebrile. Oral intake is diminished specially his underlying pneumonia. No nausea. No vomiting. No significant abdominal pain for now. On 08/15/2017, the patient is quite short of breath. He is uncomfortable even at rest. He is currently on 3 L of oxygen by nasal cannula and his pulse ox is 99%. He is still spiking on and off temperature in the last temperature spike was yesterday evening when he spike a temperature of 101.4. Otherwise, he is nothing by mouth for now and the plan is for this patient to be taken to the operating room for a video-assisted thoracoscopy and possible decortication. He remains on a combination of meropenem and vancomycin. Vanco trough was quite elevated at was toxic and this could've contributed to his acute kidney injury. His creatinine is stable for now and the values at 1.5. Hemoglobin stable at 9.2. White cell count is not elevated. The patient was taken off the nonsteroidal anti-inflammatory medication. This subsequently vancomycin level is down to 20. Otherwise is producing adequate amount of urine output and the patient is being well hydrated. I suspect that he may end up going to the ICU following his thoracic surgery and this will largely depend on his overall progress. I have spoken to this patient at length. I also discussed the case with his mother the bedside. No nausea. No vomiting. No significant abdominal pain. No altered mentation. Reevaluated today on 08/16/2017, patient is doing relatively well, off oxygen, relatively asymptomatic, his chest x-ray continues to show significant right lower lobe consolidation. But overall there has been significant improvement since his surgery there is no evidence of pneumothorax. There is minimal subcutaneous emphysema. Pathology from the decortication is still pending. CBC is relatively normal and his basic metabolic profile is showing improvement in his creatinine down to 1.40. Sodium is a bit improved at 146 today. The patient is seen again today 08/17/2017 in follow-up on the selective care unit. He is currently awake and alert in no acute distress. Chest x-ray shows stable right-sided consolidation and pleural effusion. Minimal subcutaneous emphysema. He is maintaining good O2 saturations in the upper 90s on 2 L/m per nasal cannula. He's been afebrile. He is status post right thorascopic total lung decortication on 08/15/2017. Fluid cultures pending. Pathology is pending. White count 7.6. Hemoglobin 9.0. Sodium 147. Creatinine 1.49. Reevaluated today on 08/18/2017, patient seems to be doing quite well, he is postoperative day #3 right-sided thoracoscopic total lung decortication. Patient is relatively asymptomatic, in no distress, chest tube remains in place , and chest x-ray is showing definite improvement over the last couple of days. CBC is relatively unremarkable hemoglobin is 9, basic metabolic profile is relatively normal with significant improvement in his renal status over the last couple of days. The patient is seen again today 08/19/2017 in follow-up on the selective care unit. This is postoperative day #4 of her right thigh sided thorascopic total lung decortication. Patient is resting quite comfortably in bed. He is awake and alert in no acute distress. He states he is breathing easier every day. No worsening shortness of breath, cough or congestion. Chest x-ray shows improved aeration. Chest tube remains in place. He continues to maintain good O2 saturations in the 90s on room air. He's been afebrile. Hemodynamically stable. Pathology is pending. Cultures reveal no growth. White count 8.5. Hemoglobin 8.0. Creatinine 1.26. Antibiotics were discontinued today. Steroids were initiated. Reevaluated today on 08/20/2017, patient is postoperative day #5, doing well, continues to have significant significant amount of drainage from the chest tube. Hence the chest tube will remain in place, he was evaluated by thoracic surgery, and the plan is to move the chest tube in the next 24 hours. Patient is relatively asymptomatic, no cough no wheezing no shortness of breath. Labs were reviewed and they seem to be relatively unremarkable including significant improvement noted in his renal profile and his hemoglobin is still 8.0. She is seen again today 08/21/2017, postoperative day #6. His chest x-ray was reviewed. Chest tube was removed. Doing quite well. He's been up ambulating without any significant shortness of breath. Continue good O2 saturations in the 90s on room air. No worsening cough or congestion. Pathology was negative. Cultures reveal no growth. He is currently afebrile. 146, potassium 3.4, creatinine 1.10. Objective - Vital Signs Vital signs: Vital Signs Temp 98.2 F 08/21/17 09:31 Pulse 81 08/21/17 12:30 Resp 16 08/21/17 12:30 BP 149/84 08/21/17 09:31 Pulse Ox 94 L 08/21/17 09:31 Intake & Output 08/20/17 08/21/17 08/21/17 18:59 06:59 18:59 Intake Total 790 710 Output Total 50 10 Balance 740 -10 710 Weight 112.4 kg Intake: Oral 790 710 Output: Chest Tube Drainage 50 10 right lateral 50 10 Other: Voiding Method Toilet Toilet Toilet # Voids 3 - Exam GENERAL EXAM: Alert, pleasant, 42-year-old white male patient, does not appear to be in acute distress HEAD: Normocephalic/atraumatic. EYES: Normal reaction of pupils, equal size. Conjunctiva pink, sclera white. NOSE: Clear with pink turbinates. THROAT: No erythema or exudates. NECK: No masses, no JVD, no thyroid enlargement, no adenopathy. CHEST: No chest wall deformity. Symmetrical expansion. LUNGS: Diminished breath sounds over right lower lobe, with bibasilar crackles CVS: Regular rate and rhythm, normal S1 and S2, no gallops, no murmurs, no rubs ABDOMEN: Soft, nontender. No hepatosplenomegaly, normal bowel sounds, no guarding or rigidity. EXTREMITIES: No clubbing, no edema, no cyanosis, 2+ pulses and upper and lower extremities. MUSCULOSKELETAL: Muscle strength and tone normal. SPINE: No scoliosis or deformity SKIN: No rashes CENTRAL NERVOUS SYSTEM: Alert and oriented -3. No focal deficits, tone is normal in all 4 extremities. PSYCHIATRIC: Alert and oriented -3. Appropriate affect. Intact judgment and insight. - Labs CBC & Chem 7: 08/20/17 05:44 08/21/17 05:54 Labs: Abnormal Lab Results - Last 24 Hours (Table) 08/21/17 Range/Units 05:54 Sodium 146 H (137-145) mmol/L Potassium 3.4 L (3.5-5.1) mmol/L Calcium 8.2 L (8.4-10.2) mg/dL Assessment and Plan Assessment: Assessment 1. Right lung pneumonia complicated by development of a parapneumonic effusion which is complicated and possibly there may be a component of empyema. The pleural fluid analysis that was done through a diagnostic thoracentesis showed elevated LDH and protein. Cultures negative. Patient is status post decortication, pathology from the pleural effusion shows no evidence of malignancy and pathology from the pleural tissue is negative. 2 acute hypoxic respiratory failure secondary to above,recovered and currently on room air. 3 episodic fever, multifactorial. Could be related to underlying lung infection versus pancreatitis. Infected pancreatic pseudocys felt to be less likely. 4 chronic pancreatitis with formation of pancreatic pseudocyst, status post EGD 5 status post endoscopic cholecystectomy performed on 07/21/2017 6 hepatitis C viral infection secondary to IV drug use 7 history of drug abuse 8 major depression to the mental health facility December 2016 9 Chronic cholelithiasis status post cholecystectomy 10 Current mild leukocytosis 11 anemia, mild, stable Plan: The patient was seen and evaluated by Dr. Guillermo. Chest x-ray and labs were reviewed. Chest tube was removed today. We'll continue with his current treatment plan. Again encourage increased use of the incentive spirometer and cough and deep breathing exercises. Continue Medrol Dosepak. Continue bronchodilators. Heparin for DVT prophylaxis. Increase his activity as tolerated. We will continue to follow and make further recommendations based on his clinical status. I, the cosigning physician, performed a history & physical examination of the patient. Lungs sounds with few scattered rhonchi.. Maintaining good O2 saturations in the 90s on room air. I discussed the assessment and plan of care with my nurse practitioner, Carmen Caldera. I attest to the above note as dictated by her.
--- NOTE | 2017-08-21 16:21 | PN ---
PROGRESS NOTE DATE OF SERVICE: 08/21/2017. REASON FOR FOLLOWUP: Pleural effusion and pancreatic pseudocyst. INTERVAL HISTORY: The patient is afebrile, has been breathing comfortably. His breathing has much improved. Cough is mostly dry in nature. No chest pain. Abdominal pain has improved and no diarrhea. EXAMINATION: Blood pressure 106/67, pulse of 90, temperature 96.8. He is 94% on room air. General description is a middle-aged male lying in bed in no distress. RESPIRATORY SYSTEM: Unlabored breathing. Clear to auscultation anteriorly. HEART: S1, S2. Regular rate and rhythm. ABDOMEN: Soft, no tenderness. LABS: BUN of 19, creatinine 1.10. All his cultures were negative. DIAGNOSTIC IMPRESSION AND PLAN: 1. Patient admitted with pleural effusion, status post video-assisted thoracoscopic procedure. Culture has been negative; however mostly serous. With currently off antibiotic therapy for more than 48 hours, the patient remains to be afebrile and white count normal. Hence, no need for any antibiotics. 2. Patient with pancreatic pseudocyst, likely not infected. Continue supportive care. MMODL / IJN: [id number] /
[2017-08-21] MEDS: SENNOSIDES-DOCUSATE SODIUM 1 EACH TAB PO SCH (19:58)
[2017-08-21] MEDS: MIRTAZAPINE 15 MG TAB PO SCH (20:50)
[2017-08-22] MEDS: MORPHINE ORAL SOLN 10 MG/5 ML CUP PO PRN ×4 (01:57→20:06)
[2017-08-22] MEDS: HYDROmorphone 2 MG TAB PO PRN ×3 (06:51→18:45)
--- NOTE | 2017-08-22 06:58 | XR ---
EXAMINATION TYPE: XR chest 2V DATE OF EXAM: 08/22/2017 HISTORY: post vats. REFERENCE: Previous study dated 08/13/2017. FINDINGS: There is an enlarging, lobulated density in the lateral chest on the right. This likely rep resents some loculated fluid. There is also blunting of the right CP angle. There is atelectasis at t he left lung base. The heart is mildly enlarged. There are bilateral effusions, greater on the right than the left. The patient's right pleural drain has been removed. There is mild vascular congestion without ry edema. IMPRESSION: 1. ENLARGING, LOBULATED OPACITY IN THE LATERAL CHEST ON THE RIGHT LIKELY REPRESENTING LOBULATED FLUID . 2. BILATERAL PLEURAL EFFUSIONS, GREATER RIGHT THAN LEFT. 3. MILD CARDIOMEGALY. 4. BIBASILAR AIRSPACE DISEASE.
[2017-08-22] MEDS: IPRATROPIUM-ALBUTEROL 3 ML NEB IH SCH ×4 (07:32→20:13)
[2017-08-22] MEDS: lamoTRIgine 100 MG TAB PO SCH ×2 (08:37→20:41)
[2017-08-22] MEDS: OLANZapine 5 MG TAB PO SCH (08:37)
[2017-08-22] MEDS: HEPARIN SODIUM,PORCINE 5,000 UNIT/ML 1 ML VIAL SQ SCH ×3 (08:38→23:19)
[2017-08-22] MEDS: PANTOPRAZOLE 40 MG TABLET PO SCH (08:38)
[2017-08-22 08:41] LABS: HCT 28.4 % (39.0-53.0); HGB 8.8 gm/dL (13.0-17.5); Hypochromasia Slight; MCH 26.4 pg (25.0-35.0); MCV 85.2 fL (80.0-100.0); Mean Platelet Volume 8.9; Platelet Count 326 k/uL (150-450); RBC 3.33 m/uL (4.30-5.90); WBC 10.6 k/uL (3.8-10.6)
[2017-08-22] MEDS: SODIUM FERRIC GLUCONAT-SUCROSE 125 MG in SODIUM CHLORIDE 0.9% 100 ML IVPB SCH (08:47)
[2017-08-22 08:52] LABS: Anion Gap 13 mmol/L; Blood Urea Nitrogen 17 mg/dL (9-20); Calcium 8.4 mg/dL (8.4-10.2); Carbon Dioxide 28 mmol/L (22-30); Chloride 107 mmol/L (98-107); Glucose 91 mg/dL (74-99); Potassium 3.6 mmol/L (3.5-5.1); Sodium 148 mmol/L (137-145)
--- NOTE | 2017-08-22 09:11 | P.PN ---
Subjective Progress Note Date: 08/22/17 Principal diagnosis: Loculated right-sided pleural effusion. Previous medical history of chronic pancreatitis, COPD, seizure disorder, hepatitis C, bipolar disorder, current tobacco dependence, previous IV drug abuse as well as prescription drug abuse, ERCP 6 months ago, cholecystectomy on July 22. POD #7 right thoracoscopic total lung decortication Patient is currently sitting up in bed in no acute distress. States pain is controlled on oral medication. Denies shortness of breath. Patient has been ambulatory in the hallway. Right pleural chest tube was discontinued yesterday. Patient continues to have drainage from the site. States he is feeling better everyday. Objective - Vital Signs Vital signs: Vital Signs Temp 97.7 F 08/22/17 05:55 Pulse 79 08/22/17 05:55 Resp 16 08/22/17 05:55 BP 141/74 08/22/17 05:55 Pulse Ox 94 L 08/21/17 22:20 Intake & Output 08/21/17 08/22/17 08/22/17 18:59 06:59 18:59 Intake Total 710 460 Balance 710 460 Weight 109.5 kg Intake: Oral 710 460 Other: Voiding Method Toilet # Voids 1 - Constitutional General appearance: Present: cooperative, no acute distress, obese - Respiratory Details: Lungs sounds diminished bilaterally, right greater than left. Respirations even , nonlabored. Currently on room air with oxygen saturation 94%. Achieving 1500 mL on his incentive spirometry. - Cardiovascular Details: S1, S2 present. Regular rate and rhythm, sinus rhythm to sinus tach on telemetry. Palpable peripheral pulses bilaterally. No edema present. No calf pain or tenderness noted. - Gastrointestinal Gastrointestinal Comment(s): Abdomen soft, nontender, nondistended. Active bowel sounds 4 quadrants. Tolerating diet. Positive bowel movement yesterday morning per patient. - Genitourinary Genitourinary Comment(s): Continues to void yellow urine. - Integumentary Integumentary Comment(s): Skin is warm and dry with evidence of good perfusion. Right chest tube sites covered with intact dressing, reinforced as needed. Multiple tattoos present. - Neurologic Neurologic: Present: CNII-XII intact - Musculoskeletal Musculoskeletal: Present: gait normal, strength equal bilaterally - Psychiatric Psychiatric: Present: A&O x's 3, appropriate affect, intact judgment & insight - Allied health notes Allied health notes reviewed: nursing - Labs CBC & Chem 7: 08/22/17 08:13 08/22/17 08:13 Labs: Abnormal Lab Results - Last 24 Hours (Table) 08/22/17 08/22/17 Range/Units 08:13 08:13 RBC 3.33 L (4.30-5.90) m/uL Hgb 8.8 L (13.0-17.5) gm/dL Hct 28.4 L (39.0-53.0) % Sodium 148 H (137-145) mmol/L - Imaging and Cardiology Chest x-ray: report reviewed, image reviewed Assessment and Plan (1) Abdominal pain Current Visit: Yes Status: Acute Code(s): R10.9 - UNSPECIFIED ABDOMINAL PAIN SNOMED Code(s): 61994769 (2) Pancreatic pseudocyst Current Visit: Yes Status: Acute Code(s): K86.3 - PSEUDOCYST OF PANCREAS SNOMED Code(s): 014857893 (3) Pleural effusion Current Visit: Yes Status: Acute Code(s): J90 - PLEURAL EFFUSION, NOT ELSEWHERE CLASSIFIED SNOMED Code(s): 78778399 (4) Fever Current Visit: Yes Status: Acute Code(s): R50.9 - FEVER, UNSPECIFIED SNOMED Code(s): 285960346 (5) Pancreatitis Current Visit: Yes Status: Chronic Code(s): K85.90 - ACUTE PANCREATITIS WITHOUT NECROSIS OR INFECTION, UNSP SNOMED Code(s): 41185849 (6) History of hepatitis C Current Visit: No Status: Resolved Code(s): Z86.19 - PERSONAL HISTORY OF OTHER INFECTIOUS AND PARASITIC DISEASES SNOMED Code(s): 12546321392921 (7) Obesity (BMI 30-39.9) Current Visit: Yes Status: Chronic Code(s): E66.9 - OBESITY, UNSPECIFIED SNOMED Code(s): 928777276 Plan: 1. Post chest tube removal x-ray reviewed. Lobulated opacity present in the right chest. Continue to monitor, does not require another chest tube, stable. 2. Encourage incentive spirometry use 10 times every hour while awake. Encourage smoking cessation. Continue Medrol dose pack. 3. Pain management with current medication regimen. 4. Medical comorbidities to be managed his primary care, pulmonology, general surgery. 5. Increase activity, ambulate in hallway as tolerated. 6. Will see as needed. Please call us with any questions. Time with Patient: Greater than 30
[2017-08-22] MEDS: methylPREDNISolone 4 MG TAB PO SCH (11:00)
--- NOTE | 2017-08-22 19:52 | PN ---
PROGRESS NOTE SUBJECTIVE: 42-year-old white male, post postop fever, pancreatitis, pseudocyst, right pleural effusion, hemopneumothorax. Cardiovascular S1, S2. Lungs decreased breath sounds at the bases. Hematology negative Homans. GI soft. ASSESSMENT: 1. Pancreatic pseudocyst. 2. Pleural effusion on the right side of his lungs. 3. Pulmonary hemopneumothorax. Continue current treatments. Increase ambulation. Possible discharge home next 24-48 hours. MMODL / IJN: [id number] /
[2017-08-22] MEDS: SENNOSIDES-DOCUSATE SODIUM 1 EACH TAB PO SCH (20:40)
[2017-08-22] MEDS: MIRTAZAPINE 15 MG TAB PO SCH (20:41)
--- NOTE | 2017-08-22 23:34 | PN ---
PROGRESS NOTE DATE OF SERVICE: 08/22/2017. REASON FOR FOLLOWUP: Right sided local infiltration and pancreatic pseudocysts. INTERVAL HISTORY: The patient has been afebrile for more than 3 days now, has been breathing comfortably. The patient denies having any chest pain. Occasional cough. No abdominal pain. No nausea, vomiting, or any diarrhea. Tolerating a regular diet. EXAMINATION: Blood pressure 127/73 with a pulse of 90, temperature 98.2. He is 93% on room air. General description is a middle aged male up in the bed in no distress. Respiratory system: Unlabored breathing with decreased breath sounds. No wheeze. Heart S1, S2. Regular rate and rhythm. Abdomen soft, no tenderness. Extremities: No edema of the feet. LABS: Hemoglobin 8.8, white count 10.6 with a BUN of 17, creatinine 1.12. DIAGNOSTIC IMPRESSION AND PLAN: 1. Patient with fever and leukocytosis felt to be related to the right-sided pleural fluid loculated, status post VATS procedure, however, those culture were negative. No evidence of any purulence. Hence, antibiotic has been discussed. Currently off antibiotics for almost 3 days now in a patient who did not have any recurrence of fever or elevated white count. Hence we will continue to hold antibiotic therapy at this point. The patient did have an x-ray done today which did shows some loculated fluid. However, CT Surgery has evaluated the patient. Recommend no further chest tube at this point. 2. Patient has pancreatic pseudocyst, more likely not infected as the patient currently with no fever or elevated white count while the patient is off antibiotic therapy. We will continue to monitor closely. MMODL / IJN: [id number] /
[2017-08-23] MEDS: HYDROmorphone 2 MG TAB PO PRN ×3 (00:45→13:25)
[2017-08-23] MEDS: IPRATROPIUM-ALBUTEROL 3 ML NEB IH SCH ×2 (07:17→11:01)
[2017-08-23 07:33] VITALS: BP 143/70; RESP 18; TEMP 98.1
[2017-08-23] MEDS: HEPARIN SODIUM,PORCINE 5,000 UNIT/ML 1 ML VIAL SQ SCH ×2 (07:36→10:21)
[2017-08-23] MEDS: PANTOPRAZOLE 40 MG TABLET PO SCH (07:52)
[2017-08-23] MEDS: SODIUM FERRIC GLUCONAT-SUCROSE 125 MG in SODIUM CHLORIDE 0.9% 100 ML IVPB SCH (09:00)
[2017-08-23] MEDS: lamoTRIgine 100 MG TAB PO SCH (09:01)
[2017-08-23] MEDS: MORPHINE ORAL SOLN 10 MG/5 ML CUP PO PRN (09:01)
[2017-08-23] MEDS: OLANZapine 5 MG TAB PO SCH (09:01)
[2017-08-23] MEDS: methylPREDNISolone 4 MG TAB PO SCH (09:01)
[2017-08-23 11:03] VITALS: PULSE 76
--- NOTE | 2017-08-23 12:23 | PN ---
PROGRESS NOTE DATE OF SERVICE: 08/23/2017. REASON FOR FOLLOWUP: 1. Right sided loculated pleural fluid, culture negative. 2. Pancreatic pseudocyst, likely not infected. INTERVAL HISTORY: The patient remains to be afebrile for more than 4 days now. He is breathing comfortably. Denies having any chest pain. Very minimal cough which is dry in nature. No abdominal pain. No nausea, no vomiting. No diarrhea. The patient is all dressed up and says he is ready to go home. EXAMINATION: Blood pressure 143/70 with a pulse of 84, temperature 98.1. He is 95% on room air. General description is a middle-aged male lying in bed in no distress. Respiratory system: Unlabored breathing with decreased breath sounds in the bases. No wheeze. Heart S1, S2 regular rate and rhythm. Abdomen soft. No tenderness. No guarding. No rigidity. LABS: Hemoglobin 8.8, white count 10.6 with a BUN of 17, creatinine 1.12. All his cultures remain to be negative. DIAGNOSTIC IMPRESSION AND PLAN: 1. Patient with right-sided loculated pleural fluid concern for empyema. Initially he was treated both antibiotic and did have a VATS procedure, however, was mostly serous fluid and all the cultures were negative. Hence antibiotic were discontinued and the patient is currently off antibiotic for more than 4 days with no recurrence of any fever or elevated white count. Hence, no need for antibiotic on discharge. Continue steroids per CT surgeon. 2. Patient with pancreatic pseudocyst, likely not infected as the patient with no fever and no jump in the white count after antibiotic was discontinued. Continue supportive care. MMODL / IJN: [id number] / [email or web address]
--- NOTE | 2017-09-26 23:49 | DS ---
DISCHARGE SUMMARY DISCHARGE MEDICATIONS: 1. Omeprazole 40 mg daily. 2. Remeron 15 daily. 3. Lamictal 100 mg b.i.d. 4. Motrin 600 mg b.i.d. 5. Suboxone 8 mg/2 mg b.i.d. sublingually. DISCHARGE DIAGNOSES: Parapneumonic effusion secondary to hospital-acquired pneumonia versus aspiration pneumonia. A chest tube was placed while he was in the hospital which would prolong hospital stay with a chest tube in his chest, draining pneumohemothorax. IV antibiotics were given for prolonged period of time. He had a right lung pneumonia complicated parapneumonic effusion and empyema for which the chest tube was placed. The prolonged antibiotics were given for multiple days. He has hepatitis C with chronic viral infection, chronic pancreatitis, pancreatic pseudocyst and chronic cholelithiasis. MMODL / IJN: [id number] /
== END 2017-08-23 13:54 | disposition home or self-care (01) | DRG 853 ==
LOC: EC 14:38 → 4MS4W 20:01 → 6SEL 08-13 16:54 → 4MS4W 08-21 09:11
PROVIDERS: ADMIT Family Medicine; ATTEND Family Medicine
PROC: 0W993ZX Drainage of Right Pleural Cavity, Percutaneous Approach, Diagnostic (ICD-10-PCS; 2017-08-10)
PROC: 0DB78ZX Excision of Stomach, Pylorus, Via Natural or Artificial Opening Endoscopic, Diagnostic (ICD-10-PCS; 2017-08-10)
PROC: 0BNK4ZZ Release Right Lung, Percutaneous Endoscopic Approach (ICD-10-PCS; principal; 2017-08-15 13:17)
DX: A41.9 Sepsis, unspecified organism (principal); J86.9 Pyothorax without fistula; J96.01 Acute respiratory failure with hypoxia; J69.0 Pneumonitis due to inhalation of food and vomit; J18.9 Pneumonia, unspecified organism; N17.9 Acute kidney failure, unspecified; J90 Pleural effusion, not elsewhere classified; J94.2 Hemothorax; K86.3 Pseudocyst of pancreas; K86.1 Other chronic pancreatitis; J98.11 Atelectasis; N18.3 Chronic kidney disease, stage 3 (moderate); B18.2 Chronic viral hepatitis C; E66.9 Obesity, unspecified; E86.0 Dehydration; F11.11 Opioid abuse, in remission; G40.909 Epilepsy, unspecified, not intractable, without status epilepticus; G89.29 Other chronic pain; J44.9 Chronic obstructive pulmonary disease, unspecified; K29.60 Other gastritis without bleeding; Y95 Nosocomial condition; M15.9 Polyosteoarthritis, unspecified; T36.8X5A Adverse effect of other systemic antibiotics, initial encounter; K21.9 Gastro-esophageal reflux disease without esophagitis; F32.9 Major depressive disorder, single episode, unspecified; Z90.49 Acquired absence of other specified parts of digestive tract; Z79.899 Other long term (current) drug therapy; Z88.5 Allergy status to narcotic agent; Z88.8 Allergy status to other drugs, medicaments and biological substances; Z91.011 Allergy to milk products; Z68.38 Body mass index [BMI] 38.0-38.9, adult; Z81.8 Family history of other mental and behavioral disorders; Z82.49 Family history of ischemic heart disease and other diseases of the circulatory system; Z81.1 Family history of alcohol abuse and dependence; F17.210 Nicotine dependence, cigarettes, uncomplicated; Y92.239 Unspecified place in hospital as the place of occurrence of the external cause
CPT/HCPCS: 32555; 36415; 43239; 71045; 71046; 71250; 74150; 74177; 80048; 80053; 80202; 81001; 82150; 82550; 82553; 82805; 82945; 83605; 83615; 83690; 84155; 84157; 84484; 85025; 85027; 85610; 86850; 86900; 86901; 87040; 87070; 87075; 87102; 87116; 87205; 87206; 88108; 88305; 89050; 93005; 94640; 94760; 96361; 96365; 96366; 96375; 99285

== ENCOUNTER 2017-09-04 06:45 | Emergency (ER) | payer MEDICARE, OTHER ==
[2017-09-04] MEDS ORDERED: MORPHINE SULFATE 4 MG/ML SYRINGE IVP STA (07:34)
[2017-09-04] MEDS ORDERED: SODIUM CHLORIDE 0.9% 1,000 ML IV STA (07:34)
[2017-09-04] MEDS ORDERED: ONDANSETRON 4 MG/2 ML VIAL IVP STA (07:34)
[2017-09-04] MEDS ORDERED: RX INFO: IV CONTRAST WAS GIVEN 1 EACH MISC MISCELLANE PRN (07:35)
--- NOTE | 2017-09-04 07:38 | ED ---
Abdominal Pain HPI - General Chief Complaint: Abdominal Pain Stated Complaint: Abdominal Pain Time Seen by Provider: 09/04/17 07:15 Source: patient, RN notes reviewed, old records reviewed Mode of arrival: ambulatory Limitations: no limitations - History of Present Illness Initial Comments: This is a 43-year-old male with a history of bipolar disorder a cholecystectomy about a month ago and pancreatitis in the past who presents with complaints of left sided abdominal pain for the past couple days. He states that sharp in nature 9/10 severity he had some associated sweats with it no dysuria no hematuria no cough he has had sweats no fever or chills he has had some nausea. No other complaints no other modifying factors at this time MD Complaint: abdominal pain - Related Data Home Medications Medication Instructions Recorded Confirmed Omeprazole 40 mg PO DAILY 08/25/16 08/09/17 Mirtazapine [Remeron] 15 mg PO HS 11/23/16 08/09/17 lamoTRIgine [LaMICtal] 100 mg PO BID 03/13/17 08/09/17 Ibuprofen [Motrin Ib] 600 mg PO BID PRN 07/18/17 08/09/17 Buprenorphine HCl/Naloxone HCl 0.5 film SL BID PRN 08/09/17 08/09/17 [Suboxone 8 mg-2 mg Sl Film] OLANZapine [ZyPREXA] 15 mg PO DAILY 08/09/17 08/09/17 Allergies Allergy/AdvReac Type Severity Reaction Status Date / Time codeine Allergy Swelling Verified 09/04/17 06:51 furosemide [From Lasix] Allergy Rash/Hives Verified 09/04/17 06:51 haloperidol [From Haldol] Allergy Unknown Verified 09/04/17 06:51 prochlorperazine Allergy Swelling Verified 09/04/17 06:51 lactose AdvReac Diarrhea Verified 09/04/17 06:51 Review of Systems ROS Statement: Those systems with pertinent positive or pertinent negative responses have been documented in the HPI. ROS Other: All systems not noted in ROS Statement are negative. Past Medical History Past Medical History: COPD, Musculoskeletal Disorder, Seizure Disorder Additional Past Medical History / Comment(s): History of seizures-per patient, his last seizure was in 2011, Hepatitis C, history of IV drug use, history of crack cocaine use, Degenerative disc disease in back, possible arthritis in knees, hips and arms. , History of chronic pancreatitis who presented status post cholecystectomy and the patient has history of pancreatitis and pancreatic pseudocyst formation and cholelithiasis and he was treated in the past. [facility]. History of Any Multi-Drug Resistant Organisms: None Reported Past Surgical History: Appendectomy Additional Past Surgical History / Comment(s): Appendectomy-1996, eye surgery- 1998, drain for pancreatitis Past Anesthesia/Blood Transfusion Reactions: No Reported Reaction Past Psychological History: Bipolar, Depression Smoking Status: Current every day smoker Past Alcohol Use History: None Reported Past Drug Use History: Methamphetamine, Opiates, Prescription Drug Abuse - Past Family History Brother(s) Additional Family Medical History / Comment(s): Chronic alcoholism Sister(s) Additional Family Medical History / Comment(s): Chronic alcoholism Daughter(s) Additional Family Medical History / Comment(s): One daughter healthy Son(s) Additional Family Medical History / Comment(s): One son healthy Father History Unknown: Yes Family Medical History: AICD/Pacemaker, Myocardial Infarction ([place]) Additional Family Medical History / Comment(s): Schizophrenia. Per patient, his father at the age of 59 Mother History Unknown: Yes Family Medical History: No Reported History Additional Family Medical History / Comment(s): HPV General Exam - General Exam Comments Initial Comments: This is a well-developed well-nourished awake alert oriented 3 male Limitations: no limitations General appearance: alert, anxious Head exam: Present: atraumatic, normocephalic, normal inspection Eye exam: Present: normal appearance, PERRL, EOMI. Absent: scleral icterus, conjunctival injection, periorbital swelling ENT exam: Present: normal exam, mucous membranes moist Neck exam: Present: normal inspection. Absent: tenderness, meningismus, lymphadenopathy Respiratory exam: Present: wheezes, other (Scattered occasional wheezes in the lower lung joyce). Absent: respiratory distress, rales, rhonchi, stridor Cardiovascular Exam: Present: regular rate, normal rhythm, normal heart sounds. Absent: systolic murmur, diastolic murmur, rubs, gallop, clicks GI/Abdominal exam: Present: soft, tenderness (Tenderness over left flank and lower quadrant area some voluntary guarding no rebound), normal bowel sounds. Absent: distended, guarding, rebound, rigid, bruit, pulsatile mass, hernia (Well -healed surgical scars from the previous surgery) Extremities exam: Present: normal inspection, full ROM, normal capillary refill. Absent: tenderness, pedal edema, joint swelling, calf tenderness Back exam: Present: normal inspection Neurological exam: Present: alert, oriented X3, CN II-XII intact Psychiatric exam: Present: normal affect, normal mood Skin exam: Present: warm, dry, intact, normal color. Absent: rash Course Vital Signs 09/04/17 09/04/17 09/04/17 06:49 09:20 11:28 Temperature 99.2 F Pulse Rate 105 H 65 83 Respiratory 18 18 18 Rate Blood Pressure 155/95 132/74 118/67 O2 Sat by Pulse 97 95 96 Oximetry 09/04/17 12:27 Temperature 98.5 F Pulse Rate 82 Respiratory 16 Rate Blood Pressure 127/68 O2 Sat by Pulse 97 Oximetry - Reevaluation(s) Reevaluation #1: 09/04/17 12:58 Hgb require pain medication and to different occasions his pain is under control amylase lipase are normal he would like to go home he was informed about his CAT scan results. He'll follow-up with his doctor return when necessary Medical Decision Making - Lab Data Result diagrams: 09/04/17 07:18 09/04/17 07:18 Lab Results 09/04/17 09/04/17 09/04/17 Range/Units 07:18 07:18 07:18 WBC 13.6 H (3.8-10.6) k/uL RBC 4.76 (4.30-5.90) m/uL Hgb 12.6 L D (13.0-17.5) gm/dL Hct 39.2 (39.0-53.0) % MCV 82.5 (80.0-100.0) fL MCH 26.6 (25.0-35.0) pg MCHC 32.2 (31.0-37.0) g/dL RDW 15.0 (11.5-15.5) % Plt Count 253 (150-450) k/uL Neutrophils % 67 % Lymphocytes % 19 % Monocytes % 8 % Eosinophils % 4 % Basophils % 0 % Neutrophils # 9.1 H (1.3-7.7) k/uL Lymphocytes # 2.6 (1.0-4.8) k/uL Monocytes # 1.1 H (0-1.0) k/uL Eosinophils # 0.6 (0-0.7) k/uL Basophils # 0.1 (0-0.2) k/uL PT (9.0-12.0) sec INR (<1.2) APTT (22.0-30.0) sec Sodium 143 (137-145) mmol/L Potassium 3.7 (3.5-5.1) mmol/L Chloride 103 (98-107) mmol/L Carbon Dioxide 22 (22-30) mmol/L Anion Gap 18 mmol/L BUN 13 (9-20) mg/dL Creatinine 0.89 (0.66-1.25) mg/dL Est GFR (CKD-EPI)AfAm >90 (>60 ml/min/1.73 sqM) Est GFR (CKD-EPI)NonAf >90 (>60 ml/min/1.73 sqM) Glucose 138 H (74-99) mg/dL Plasma Lactic Acid Mynor (0.7-2.0) mmol/L Calcium 9.6 (8.4-10.2) mg/dL Total Bilirubin 1.0 (0.2-1.3) mg/dL AST 47 (17-59) U/L ALT 61 (21-72) U/L Alkaline Phosphatase 229 H (38-126) U/L Total Creatine Kinase <20 L (55-170) U/L CK-MB (CK-2) 0.3 (0.0-2.4) ng/mL CK-MB (CK-2) Rel Index Troponin I <0.012 (0.000-0.034) ng/mL Total Protein 7.1 (6.3-8.2) g/dL Albumin 4.3 (3.5-5.0) g/dL Amylase 130 H (30-110) U/L Lipase 152 (23-300) U/L Urine Color Urine Appearance (Clear) Urine pH (5.0-8.0) Ur Specific Hamilton (1.001-1.035) Urine Protein (Negative) Urine Glucose (UA) (Negative) Urine Ketones (Negative) Urine Blood (Negative) Urine Nitrite (Negative) Urine Bilirubin (Negative) Urine Urobilinogen (<2.0) mg/dL Ur Leukocyte Esterase (Negative) Urine RBC (0-5) /hpf Urine WBC (0-5) /hpf Ur Squamous Epith Cells (0-4) /hpf Hyaline Casts (0-2) /lpf Urine Mucus (None) /hpf 09/04/17 09/04/17 09/04/17 Range/Units 07:18 08:56 09:30 WBC (3.8-10.6) k/uL RBC (4.30-5.90) m/uL Hgb (13.0-17.5) gm/dL Hct (39.0-53.0) % MCV (80.0-100.0) fL MCH (25.0-35.0) pg MCHC (31.0-37.0) g/dL RDW (11.5-15.5) % Plt Count (150-450) k/uL Neutrophils % % Lymphocytes % % Monocytes % % Eosinophils % % Basophils % % Neutrophils # (1.3-7.7) k/uL Lymphocytes # (1.0-4.8) k/uL Monocytes # (0-1.0) k/uL Eosinophils # (0-0.7) k/uL Basophils # (0-0.2) k/uL PT 11.5 (9.0-12.0) sec INR 1.2 H (<1.2) APTT 23.8 (22.0-30.0) sec Sodium (137-145) mmol/L Potassium (3.5-5.1) mmol/L Chloride (98-107) mmol/L Carbon Dioxide (22-30) mmol/L Anion Gap mmol/L BUN (9-20) mg/dL Creatinine (0.66-1.25) mg/dL Est GFR (CKD-EPI)AfAm (>60 ml/min/1.73 sqM) Est GFR (CKD-EPI)NonAf (>60 ml/min/1.73 sqM) Glucose (74-99) mg/dL Plasma Lactic Acid Mynor 0.6 L (0.7-2.0) mmol/L Calcium (8.4-10.2) mg/dL Total Bilirubin (0.2-1.3) mg/dL AST (17-59) U/L ALT (21-72) U/L Alkaline Phosphatase (38-126) U/L Total Creatine Kinase (55-170) U/L CK-MB (CK-2) (0.0-2.4) ng/mL CK-MB (CK-2) Rel Index Troponin I (0.000-0.034) ng/mL Total Protein (6.3-8.2) g/dL Albumin (3.5-5.0) g/dL Amylase (30-110) U/L Lipase (23-300) U/L Urine Color Yellow Urine Appearance Clear (Clear) Urine pH 6.5 (5.0-8.0) Ur Specific Hamilton 1.018 (1.001-1.035) Urine Protein 1+ H (Negative) Urine Glucose (UA) Negative (Negative) Urine Ketones Negative (Negative) Urine Blood Negative (Negative) Urine Nitrite Negative (Negative) Urine Bilirubin Negative (Negative) Urine Urobilinogen 3.0 (<2.0) mg/dL Ur Leukocyte Esterase Small H (Negative) Urine RBC 1 (0-5) /hpf Urine WBC 13 H (0-5) /hpf Ur Squamous Epith Cells 1 (0-4) /hpf Hyaline Casts 1 (0-2) /lpf Urine Mucus Rare H (None) /hpf Disposition Clinical Impression: Abdominal pain, Pancreatitis Disposition: HOME SELF-CARE Condition: Good Instructions: Abdominal Pain (ED), Pancreatitis (ED) Is patient prescribed a controlled substance at d/c from ED?: No Referrals: Bandar Camacho MD [Primary Care Provider] - 1-2 days
[2017-09-04 07:47] LABS: Basophils # (A) 0.1 k/uL (0-0.2); Basophils % (A) 0 %; Eosinophils # (A) 0.6 k/uL (0-0.7); Eosinophils % (A) 4 %; HCT 39.2 % (39.0-53.0); Lymphocytes # (A) 2.6 k/uL (1.0-4.8); Lymphocytes % (A) 19 %; MCH 26.6 pg (25.0-35.0); MCHC 32.2 g/dL (31.0-37.0); MCV 82.5 fL (80.0-100.0); Mean Platelet Volume 9.1; Monocytes # (A) 1.1 k/uL (0-1.0); Monocytes % (A) 8 %; Neutrophils # (A) 9.1 k/uL (1.3-7.7); Neutrophils % (A) 67 %; Platelet Count 253 k/uL (150-450); RBC 4.76 m/uL (4.30-5.90); WBC 13.6 k/uL (3.8-10.6)
[2017-09-04 07:56] LABS: INR 1.2 (<1.2); Partial Thromboplastin Time 23.8 sec (22.0-30.0); Prothrombin Time 11.5 sec (9.0-12.0)
[2017-09-04 08:00] LABS: HGB 12.6 gm/dL (13.0-17.5)
[2017-09-04 08:03] LABS: ALT 61 U/L (21-72); AST 47 U/L (17-59); Albumin 4.3 g/dL (3.5-5.0); Alkaline Phosphatase 229 U/L (38-126); Amylase 130 U/L (30-110); Anion Gap 18 mmol/L; Blood Urea Nitrogen 13 mg/dL (9-20); Calcium 9.6 mg/dL (8.4-10.2); Carbon Dioxide 22 mmol/L (22-30); Chloride 103 mmol/L (98-107); Glucose 138 mg/dL (74-99); Lipase 152 U/L (23-300); Potassium 3.7 mmol/L (3.5-5.1); Sodium 143 mmol/L (137-145); Total Protein 7.1 g/dL (6.3-8.2)
[2017-09-04 08:06] LABS: Creatine Kinase <20 U/L (55-170)
[2017-09-04 08:19] LABS: Creatine Kinase MB 0.3 ng/mL (0.0-2.4); Troponin I <0.012 ng/mL (0.000-0.034)
--- NOTE | 2017-09-04 09:26 | XR ---
EXAMINATION TYPE: XR KUB , 2 VIEWS DATE OF EXAM ORDERED: 09/04/2017 HISTORY: abdominal pain. COMPARISON: Previous study dated 07/18/2017. FINDINGS: The lung bases are clear. Within the abdomen, the abdominal gas pattern is normal. There is no evidence of obstruction or free air. No unusual calcifications are seen. IMPRESSION: NO ACUTE INTRA-ABDOMINAL ABNORMALITY.
[2017-09-04 09:53] LABS: Appearance,Urine Clear (Clear); Bilirubin,Urine Negative (Negative); Blood,Urine Negative (Negative); Color,Urine Yellow; Glucose,Urine (UA) Negative (Negative); Hyaline Casts,Urine 1 /lpf (0-2); Ketones,Urine Negative (Negative); Leukocyte Esterase,Urine Small (Negative); Mucus,Urine Rare /hpf; Nitrite,Urine Negative (Negative); PH, Urine 6.5 (5.0-8.0); Protein,Urine 1+ (Negative); RBC,Urine 1 /hpf (0-5); Specific Gravity,Urine 1.018 (1.001-1.035); Squamous Epithelial Cell,Urine 1 /hpf (0-4); WBC,Urine 13 /hpf (0-5)
--- NOTE | 2017-09-04 10:31 | CT ---
EXAMINATION TYPE: CT abdomen pelvis w con DATE OF EXAM: 09/04/2017 REFERENCE: Previous study dated 08/20/2017. HISTORY: Pain HISTORY: LUQ pain REFERENCE: NONE CT DLP: 1859.4 mGy Automated exposure control for dose reduction was used. TECHNIQUE: Helical acquisition through the abdomen and pelvis was obtained following the oral ingesti on of without Oral Contrast and following intravenous administration of 100 mL of Isovue 300. The nicole a was reformatted in axial, coronal and sagittal projections. FINDINGS: There is some atelectasis at the right lung base. There continue to be small effusions. Th davida have decreased in size from previous. There is a calcified granuloma in the right middle lobe. Lungs otherwise clear. Within the abdomen, the liver is enlarged measuring 25 cm. Is fatty infiltrated. The gallbladder is n ot identified. There is an enlarging cystic lesion adjacent to the body of the pancreas which measures 5.7 cm. Previ ously this measured 5.4 cm. There is inflammation adjacent to the head of the pancreas consistent wit h acute pancreatitis. Both adrenal glands are normal. Both kidneys demonstrate function and appear morphologically normal. The spleen is unremarkable. There is no significant retroperitoneal, iliac or inguinal adenopathy. The bladder is unremarkable. There is no significant diverticular change and there is no radiographic evidence of diverticulitis. The appendix is not visualized with certainty. Small bowel loops are normal in caliber. There is no free fluid and no free air. There is mild facet arthropathy in the lower lumbar spine. There is degenerative disc disease and mil d hypertrophic spondylosis in the lower dorsal spine. IMPRESSION: 1. FINDINGS CONSISTENT WITH ACUTE PANCREATITIS. 2. ENLARGING CYSTIC LESION ADJACENT TO THE BODY OF THE PANCREAS, PRESUMABLY A PSEUDOCYST. 3. HEPATOMEGALY AND FATTY INFILTRATION OF THE LIVER. 4. DECREASING PLEURAL EFFUSIONS WITH ADJACENT ATELECTATIC CHANGE. 5. EVIDENCE OF OLD GRANULOMATOUS DISEASE. 6. MILD DEGENERATIVE CHANGE IN THE SPINE.
[2017-09-04] MEDS ORDERED: fentaNYL (PF) 50 MCG/ML 2 ML AMP IV STA (11:53)
[2017-09-04 12:27] VITALS: BP 127/68; PULSE 82; RESP 16; TEMP 98.5
== END 2017-09-04 13:05 | disposition home or self-care (01) ==
LOC: EC 06:45
DX: K85.90 Acute pancreatitis without necrosis or infection, unspecified (principal); G40.909 Epilepsy, unspecified, not intractable, without status epilepticus; F31.9 Bipolar disorder, unspecified; F17.200 Nicotine dependence, unspecified, uncomplicated; Z86.19 Personal history of other infectious and parasitic diseases; Z79.899 Other long term (current) drug therapy; Z88.5 Allergy status to narcotic agent; Z91.011 Allergy to milk products; Z88.8 Allergy status to other drugs, medicaments and biological substances; Z90.49 Acquired absence of other specified parts of digestive tract
CPT/HCPCS: 36415; 80053; 82150; 82550; 82553; 83605; 83690; 84484; 85025; 85610; 85730; 81001; 87040; 74018; 74177; 99285; 96374; 96375 ×2; 96361 ×5; J2270; J2405; J3010; Q9967

== ENCOUNTER 2017-11-16 15:07 | Inpatient (IN) | payer MEDICARE ==
[2017-11-16] MEDS ORDERED: ONDANSETRON 4 MG/2 ML VIAL IVP STA (15:52)
[2017-11-16] MEDS ORDERED: SODIUM CHLORIDE 0.9% 1,000 ML IV STA (15:52)
[2017-11-16] MEDS ORDERED: MORPHINE SULFATE 4 MG/ML SYRINGE IVP STA (15:54)
--- NOTE | 2017-11-16 15:58 | ED ---
Abdominal Pain HPI - General Chief Complaint: Abdominal Pain Stated Complaint: Abd.pain Time Seen by Provider: 11/16/17 15:44 Source: patient, RN notes reviewed Mode of arrival: ambulatory Limitations: no limitations - History of Present Illness Initial Comments: This is a 42-year-old male with history of chronic necrotizing pancreatitis who presents to the emergency department with chief complaint of abdominal pain. Patient states that 3 days ago he developed sharp, stabbing epigastric pain that wraps around to his back. Patient states that he feels as if he is having a flareup of his pancreatitis. He denies fevers or chills, chest pain or shortness of breath, diarrhea or constipation, dysuria or hematuria. Patient states that he has not had any nausea or vomiting but has not eaten anything all day. Patient reports cholecystectomy 3 months ago without complications. - Related Data Home Medications Medication Instructions Recorded Confirmed Mirtazapine [Remeron] 15 mg PO HS 11/23/16 11/16/17 lamoTRIgine [LaMICtal] 100 mg PO BID 03/13/17 11/16/17 Buprenorphine HCl/Naloxone HCl 0.5 film SL BID PRN 08/09/17 11/16/17 [Suboxone 8 mg-2 mg Sl Film] OLANZapine [ZyPREXA] 15 mg PO DAILY 08/09/17 11/16/17 Omeprazole Magnesium [PriLOSEC OTC] 20 mg PO HS 11/16/17 11/16/17 Allergies Allergy/AdvReac Type Severity Reaction Status Date / Time codeine Allergy Swelling Verified 11/16/17 15:48 furosemide [From Lasix] Allergy Rash/Hives Verified 11/16/17 15:48 haloperidol [From Haldol] Allergy Unknown Verified 11/16/17 15:48 prochlorperazine Allergy Swelling Verified 11/16/17 15:48 lactose AdvReac Diarrhea Verified 11/16/17 15:48 Review of Systems ROS Statement: Those systems with pertinent positive or pertinent negative responses have been documented in the HPI. ROS Other: All systems not noted in ROS Statement are negative. Past Medical History Past Medical History: COPD, Musculoskeletal Disorder, Seizure Disorder Additional Past Medical History / Comment(s): History of seizures-per patient, his last seizure was in 2011, Hepatitis C, history of IV drug use, history of crack cocaine use, Degenerative disc disease in back, possible arthritis in knees, hips and arms. , History of chronic pancreatitis who presented status post cholecystectomy and the patient has history of pancreatitis and pancreatic pseudocyst formation and cholelithiasis and he was treated in the past. [facility]. History of Any Multi-Drug Resistant Organisms: None Reported Past Surgical History: Appendectomy Additional Past Surgical History / Comment(s): Appendectomy-1996, eye surgery- 1998, drain for pancreatitis Past Anesthesia/Blood Transfusion Reactions: No Reported Reaction Past Psychological History: Bipolar, Depression Smoking Status: Current every day smoker Past Alcohol Use History: None Reported Past Drug Use History: Methamphetamine, Opiates, Prescription Drug Abuse - Past Family History Brother(s) Additional Family Medical History / Comment(s): Chronic alcoholism Sister(s) Additional Family Medical History / Comment(s): Chronic alcoholism Daughter(s) Additional Family Medical History / Comment(s): One daughter healthy Son(s) Additional Family Medical History / Comment(s): One son healthy Father History Unknown: Yes Family Medical History: AICD/Pacemaker, Myocardial Infarction ([place]) Additional Family Medical History / Comment(s): Schizophrenia. Per patient, his father at the age of 59 Mother History Unknown: Yes Family Medical History: No Reported History Additional Family Medical History / Comment(s): HPV General Exam - General Exam Comments Initial Comments: General: Awake and alert, well-developed; in no apparent distress. HEENT: Head atraumatic, normocephalic. Pupils are equal, round and reactive to light. Extraocular movements intact. Oropharynx moist without erythema or exudate. Neck: Supple. Normal ROM. Cardiovascular: Regular rate and rhythm. No murmurs, rubs or gallops. Chest symmetrical. Respiratory: Lungs clear to auscultation bilaterally. No wheezes, rales or rhonchi. Normal respiratory effort with no use of accessory muscles. Abdomen: Soft, non-distended. Tenderness on palpation of the epigastrium with guarding. No rigidity or rebound. Normal bowel sounds in all 4 quadrants. Musculoskeletal: Normal ROM, no tenderness bilateral upper and lower extremities. Skin: Yellow hue to skin. Warm and dry. Neurological: Alert and oriented x3. CN II-XII grossly intact. Speech is fluent and answers are appropriate. No focal neuro deficits. Psychiatric: Normal mood and affect. No overt signs of depression or anxiety noted. Limitations: no limitations Course Vital Signs 11/16/17 11/16/17 15:24 17:08 Temperature 98.6 F Pulse Rate 108 H 94 Respiratory 18 18 Rate Blood Pressure 126/70 109/63 O2 Sat by Pulse 95 99 Oximetry Medical Decision Making - Medical Decision Making 6 is a 42-year-old male who presents to the emergency department with chief complaint of epigastric abdominal pain. Patient reports a history of chronic necrotizing pancreatitis. On physical examination, patient is in no distress. There is tenderness with guarding on palpation of the epigastrium. CBC revealed an elevated white count at 19.3 with a left shift of 15.0. CMP revealed normal lipase at 80 and a normal amylase of 79. Alkaline phosphatase was mildly elevated at 199, however this is always elevated as demonstrated by previous laboratory studies. UA is unremarkable. Patient was sent for computed tomography scan of the abdomen and pelvis with contrast. This revealed inflammatory changes consistent with acute on chronic pancreatitis. This also revealed a new pseudocyst at the pancreatic head and enlargement of the pseudocyst at the pancreatic body. Findings were discussed with patient. He is in agreement for admission. He will be admitted to Dr. Bandar Camacho with consult to Dr. Hicks. Vital signs are stable and patient is in no acute distress. Pain is controlled at this time. Patient will be given a one-time dose of Levaquin and Flagyl. - Lab Data Result diagrams: 11/16/17 16:15 11/16/17 16:15 Lab Results 11/16/17 11/16/17 11/16/17 Range/Units 16:15 16:15 16:15 WBC 19.3 H (3.8-10.6) k/uL RBC 5.36 (4.30-5.90) m/uL Hgb 13.5 (13.0-17.5) gm/dL Hct 42.7 (39.0-53.0) % MCV 79.7 L (80.0-100.0) fL MCH 25.2 (25.0-35.0) pg MCHC 31.6 (31.0-37.0) g/dL RDW 15.2 (11.5-15.5) % Plt Count 347 (150-450) k/uL Neutrophils % 78 % Lymphocytes % 11 % Monocytes % 6 % Eosinophils % 4 % Basophils % 1 % Neutrophils # 15.0 H (1.3-7.7) k/uL Lymphocytes # 2.1 (1.0-4.8) k/uL Monocytes # 1.1 H (0-1.0) k/uL Eosinophils # 0.8 H (0-0.7) k/uL Basophils # 0.1 (0-0.2) k/uL PT 12.3 H (9.0-12.0) sec INR 1.3 H (<1.2) APTT 25.0 (22.0-30.0) sec Sodium 137 (137-145) mmol/L Potassium 4.4 (3.5-5.1) mmol/L Chloride 102 (98-107) mmol/L Carbon Dioxide 22 (22-30) mmol/L Anion Gap 13 mmol/L BUN 11 (9-20) mg/dL Creatinine 0.69 (0.66-1.25) mg/dL Est GFR (CKD-EPI)AfAm >90 (>60 ml/min/1.73 sqM) Est GFR (CKD-EPI)NonAf >90 (>60 ml/min/1.73 sqM) Glucose 113 H (74-99) mg/dL Calcium 9.5 (8.4-10.2) mg/dL Total Bilirubin 0.8 (0.2-1.3) mg/dL AST 37 (17-59) U/L ALT 28 (21-72) U/L Alkaline Phosphatase 199 H (38-126) U/L Total Protein 7.7 (6.3-8.2) g/dL Albumin 4.3 (3.5-5.0) g/dL Amylase 79 (30-110) U/L Lipase 80 (23-300) U/L Urine Color Urine Appearance (Clear) Urine pH (5.0-8.0) Ur Specific [place] (1.001-1.035) Urine Protein (Negative) Urine Glucose (UA) (Negative) Urine Ketones (Negative) Urine Blood (Negative) Urine Nitrite (Negative) Urine Bilirubin (Negative) Urine Urobilinogen (<2.0) mg/dL Ur Leukocyte Esterase (Negative) Urine RBC (0-5) /hpf Urine WBC (0-5) /hpf Ur Squamous Epith Cells (0-4) /hpf Urine Mucus (None) /hpf 11/16/17 Range/Units 16:15 WBC (3.8-10.6) k/uL RBC (4.30-5.90) m/uL Hgb (13.0-17.5) gm/dL Hct (39.0-53.0) % MCV (80.0-100.0) fL MCH (25.0-35.0) pg MCHC (31.0-37.0) g/dL RDW (11.5-15.5) % Plt Count (150-450) k/uL Neutrophils % % Lymphocytes % % Monocytes % % Eosinophils % % Basophils % % Neutrophils # (1.3-7.7) k/uL Lymphocytes # (1.0-4.8) k/uL Monocytes # (0-1.0) k/uL Eosinophils # (0-0.7) k/uL Basophils # (0-0.2) k/uL PT (9.0-12.0) sec INR (<1.2) APTT (22.0-30.0) sec Sodium (137-145) mmol/L Potassium (3.5-5.1) mmol/L Chloride (98-107) mmol/L Carbon Dioxide (22-30) mmol/L Anion Gap mmol/L BUN (9-20) mg/dL Creatinine (0.66-1.25) mg/dL Est GFR (CKD-EPI)AfAm (>60 ml/min/1.73 sqM) Est GFR (CKD-EPI)NonAf (>60 ml/min/1.73 sqM) Glucose (74-99) mg/dL Calcium (8.4-10.2) mg/dL Total Bilirubin (0.2-1.3) mg/dL AST (17-59) U/L ALT (21-72) U/L Alkaline Phosphatase (38-126) U/L Total Protein (6.3-8.2) g/dL Albumin (3.5-5.0) g/dL Amylase (30-110) U/L Lipase (23-300) U/L Urine Color Yellow Urine Appearance Clear (Clear) Urine pH 6.0 (5.0-8.0) Ur Specific [place] 1.021 (1.001-1.035) Urine Protein 1+ H (Negative) Urine Glucose (UA) Negative (Negative) Urine Ketones Negative (Negative) Urine Blood Negative (Negative) Urine Nitrite Negative (Negative) Urine Bilirubin Negative (Negative) Urine Urobilinogen 6.0 (<2.0) mg/dL Ur Leukocyte Esterase Negative (Negative) Urine RBC 2 (0-5) /hpf Urine WBC 2 (0-5) /hpf Ur Squamous Epith Cells <1 (0-4) /hpf Urine Mucus Many H (None) /hpf - Radiology Data Radiology results: report reviewed, image reviewed CT abdomen and pelvis with contrast: There are inflammatory changes in the pancreas consistent with acute and chronic pancreatitis. There are pseudocyst that have increased compared to last exam. Cyst at the anterior pancreatic head is new. Cyst at the body has increased from 5.7 cm to 6.6 cm. There is no significant change in the fluid in the anterior perirenal space. There is clearing of the pleural fluid at the right lung base compared old exam. There is splenomegaly that is slightly worse than old exam. There is fatty infiltration of the liver. Disposition Clinical Impression: Acute on chronic pancreatitis, Pancreatic pseudocyst Disposition: ADMITTED IP TO THIS HOSP Condition: Fair Is patient prescribed a controlled substance at d/c from ED?: No Referrals: Bandar Camacho MD [Primary Care Provider] - 1-2 days Time of Disposition: 18:44
[2017-11-16 16:41] LABS: Basophils # (A) 0.1 k/uL (0-0.2); Basophils % (A) 1 %; Eosinophils # (A) 0.8 k/uL (0-0.7); Eosinophils % (A) 4 %; HCT 42.7 % (39.0-53.0); HGB 13.5 gm/dL (13.0-17.5); Lymphocytes # (A) 2.1 k/uL (1.0-4.8); Lymphocytes % (A) 11 %; MCH 25.2 pg (25.0-35.0); MCHC 31.6 g/dL (31.0-37.0); MCV 79.7 fL (80.0-100.0); Mean Platelet Volume 8.4; Monocytes # (A) 1.1 k/uL (0-1.0); Monocytes % (A) 6 %; Neutrophils % (A) 78 %; Platelet Count 347 k/uL (150-450); RBC 5.36 m/uL (4.30-5.90); RDW 15.2 % (11.5-15.5); WBC 19.3 k/uL (3.8-10.6)
[2017-11-16 16:42] LABS: Appearance,Urine Clear (Clear); Bilirubin,Urine Negative (Negative); Blood,Urine Negative (Negative); Color,Urine Yellow; Glucose,Urine (UA) Negative (Negative); Ketones,Urine Negative (Negative); Leukocyte Esterase,Urine Negative (Negative); Mucus,Urine Many /hpf; Nitrite,Urine Negative (Negative); Protein,Urine 1+ (Negative); RBC,Urine 2 /hpf (0-5); Specific Gravity,Urine 1.021 (1.001-1.035); Squamous Epithelial Cell,Urine <1 /hpf (0-4); WBC,Urine 2 /hpf (0-5)
[2017-11-16 16:48] LABS: ALT 28 U/L (21-72); AST 37 U/L (17-59); Albumin 4.3 g/dL (3.5-5.0); Alkaline Phosphatase 199 U/L (38-126); Amylase 79 U/L (30-110); Anion Gap 13 mmol/L; Blood Urea Nitrogen 11 mg/dL (9-20); Calcium 9.5 mg/dL (8.4-10.2); Carbon Dioxide 22 mmol/L (22-30); Chloride 102 mmol/L (98-107); Glucose 113 mg/dL (74-99); Lipase 80 U/L (23-300); Sodium 137 mmol/L (137-145); Total Bilirubin 0.8 mg/dL (0.2-1.3); Total Protein 7.7 g/dL (6.3-8.2)
[2017-11-16 16:56] LABS: INR 1.3 (<1.2); Prothrombin Time 12.3 sec (9.0-12.0)
[2017-11-16 17:12] LABS: Potassium 4.4 mmol/L (3.5-5.1)
--- NOTE | 2017-11-16 18:31 | CT ---
EXAMINATION TYPE: CT abdomen pelvis w con DATE OF EXAM: 11/16/2017 COMPARISON: 09/04/2017 HISTORY: Abdominal pain, hx of pancreatitis CT DLP: 1545.8 mGycm Automated exposure control for dose reduction was used. TECHNIQUE: Helical acquisition of images was performed from the lung bases through the pelvis. CONTRAST: Performed without Oral Contrast and with IV Contrast, patient injected with 100 mL of Isovue 300. FINDINGS: Lung bases are clear. There is no pleural effusion. Heart size is normal. There is no pericardial eff usion. There is fatty replacement of the liver. Spleen is large and measures 15.5 cm. There are some cystic fluid collections along the tail and body of the pancreas. The largest measures 6.6 cm. There is also a 4 cm cystic area on the anterior pancreatic head. There are clips from cholecystectomy. Johnson e ducts are not dilated. There is minimal fluid in the left anterior pararenal space. There is no adrenal mass. Kidneys show satisfactory contrast opacification. There is no hydronephrosi s. There is no retroperitoneal adenopathy. The bladder distends smoothly. I see no intestinal wall th ickening. There are no dilated loops. There is no free fluid in the pelvis. The appendix is not seen. There is no sign of appendicitis. The bony structures appear intact. There is a large Schmorl node o n the superior aspect of T11 vertebral body. IMPRESSION: THERE ARE INFLAMMATORY CHANGES IN THE PANCREAS CONSISTENT WITH ACUTE AND CHRONIC PANCREATITIS. THERE ARE PSEUDOCYSTS THAT HAVE INCREASED COMPARED TO LAST EXAM. CYST AT THE ANTERIOR PANCREATIC HEAD IS NE W. THE CYST AT THE BODY HAS INCREASED FROM 5.7 CM to 6.6 CM. THERE IS NO SIGNIFICANT CHANGE IN THE FL UID IN THE ANTERIOR PERIRENAL SPACE. THERE IS CLEARING OF THE PLEURAL FLUID AT THE RIGHT LUNG BASE COMPARED TO OLD EXAM. THERE IS SPLENOMEGALY THAT IS SLIGHTLY WORSE THAN OLD EXAM. THERE IS FATTY INFILTRATION OF THE LIVER.
[2017-11-16] MEDS ORDERED: ACETAMINOPHEN TAB 325 MG TAB PO PRN (18:45)
[2017-11-16] MEDS ORDERED: NALOXONE 0.4 MG/ML 1 ML VIAL IV PRN (18:45)
[2017-11-16] MEDS ORDERED: ONDANSETRON 4 MG/2 ML VIAL IVP PRN (18:45)
[2017-11-16] MEDS ORDERED: metroNIDAZOLE-NS PMX 500 MG in SALINE 1 100ML.BAG IVPB STA (18:47)
[2017-11-16] MEDS ORDERED: LEVOFLOXACIN 750MG-D5W PMX 750 MG in DEXTROSE/WATER 1 150ML.BAG IVPB STA (18:47)
[2017-11-16] MEDS: MORPHINE SULFATE 4 MG/ML SYRINGE IV PRN ×2 (19:49→23:33)
[2017-11-16] MEDS: SODIUM CHLORIDE 0.9% 1,000 ML IV SCH (22:03)
[2017-11-16] MEDS: MIRTAZAPINE 15 MG TAB PO SCH (22:03)
[2017-11-16] MEDS: PANTOPRAZOLE 40 MG TABLET PO SCH (22:03)
[2017-11-16] MEDS: lamoTRIgine 100 MG TAB PO SCH (22:03)
[2017-11-17] MEDS: MORPHINE SULFATE 4 MG/ML SYRINGE IV PRN ×5 (03:50→21:13)
[2017-11-17] MEDS: SODIUM CHLORIDE 0.9% 1,000 ML IV SCH ×2 (04:42→16:58)
[2017-11-17] MEDS: OLANZapine 5 MG TAB PO SCH (08:23)
[2017-11-17] MEDS: lamoTRIgine 100 MG TAB PO SCH ×2 (08:23→21:13)
[2017-11-17 09:38] LABS: Basophils # (A) 0.1 k/uL (0-0.2); Basophils % (A) 1 %; Eosinophils # (A) 0.3 k/uL (0-0.7); Eosinophils % (A) 3 %; HCT 40.6 % (39.0-53.0); HGB 12.3 gm/dL (13.0-17.5); Hypochromasia Slight; Lymphocytes # (A) 1.5 k/uL (1.0-4.8); Lymphocytes % (A) 14 %; MCH 25.2 pg (25.0-35.0); MCHC 30.3 g/dL (31.0-37.0); MCV 83.1 fL (80.0-100.0); Monocytes # (A) 0.6 k/uL (0-1.0); Monocytes % (A) 6 %; Neutrophils # (A) 7.6 k/uL (1.3-7.7); Neutrophils % (A) 74 %; Platelet Count 233 k/uL (150-450); RBC 4.88 m/uL (4.30-5.90); RDW 14.9 % (11.5-15.5); WBC 10.2 k/uL (3.8-10.6)
[2017-11-17 10:04] LABS: ALT 32 U/L (21-72); AST 41 U/L (17-59); Albumin 3.3 g/dL (3.5-5.0); Alkaline Phosphatase 193 U/L (38-126); Anion Gap 8 mmol/L; Blood Urea Nitrogen 10 mg/dL (9-20); Calcium 8.9 mg/dL (8.4-10.2); Carbon Dioxide 24 mmol/L (22-30); Chloride 107 mmol/L (98-107); Glucose 95 mg/dL (74-99); Potassium 3.6 mmol/L (3.5-5.1); Sodium 139 mmol/L (137-145); Total Bilirubin 0.5 mg/dL (0.2-1.3); Total Protein 5.9 g/dL (6.3-8.2)
--- NOTE | 2017-11-17 15:24 | P.GSCN ---
History of Present Illness Consult date: 11/17/17 Reason for Consult: Chronic pancreatitis History of present illness: This a 42-year-old male with a history of chronic pancreatitis. Patient had complaints of abdominal pain and was admitted through the emergency room yesterday. Patient has known pancreatic pseudocyst. On his recent CAT scan is evidence of a new pseudocyst formation. Past Medical History Past Medical History: COPD, Musculoskeletal Disorder, Seizure Disorder Additional Past Medical History / Comment(s): History of seizures-per patient, his last seizure was in 2011, Hepatitis C, history of IV drug use, history of crack cocaine use, Degenerative disc disease in back, possible arthritis in knees, hips and arms. , History of chronic pancreatitis who presented status post cholecystectomy and the patient has history of pancreatitis and pancreatic pseudocyst formation and cholelithiasis and he was treated in the past. [facility]. History of Any Multi-Drug Resistant Organisms: None Reported Past Surgical History: Appendectomy Additional Past Surgical History / Comment(s): Appendectomy-1996, eye surgery- 1998, drain for pancreatitis Past Anesthesia/Blood Transfusion Reactions: No Reported Reaction Past Psychological History: Bipolar, Depression Smoking Status: Current every day smoker Past Alcohol Use History: None Reported Additional Past Alcohol Use History / Comment(s): Patient reports he drinks approximately 4 times a year-last drink per patient was this passed wednesday. 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 pt states that he is buying them off the street - Past Family History Brother(s) Additional Family Medical History / Comment(s): Chronic alcoholism Sister(s) Additional Family Medical History / Comment(s): Chronic alcoholism Daughter(s) Additional Family Medical History / Comment(s): One daughter healthy Son(s) Additional Family Medical History / Comment(s): One son healthy Father History Unknown: Yes Family Medical History: AICD/Pacemaker, Myocardial Infarction ([place]) Additional Family Medical History / Comment(s): Schizophrenia. Per patient, his father at the age of 59 Mother History Unknown: Yes Family Medical History: No Reported History Additional Family Medical History / Comment(s): HPV Medications and Allergies Home Medications Medication Instructions Recorded Confirmed Type Mirtazapine [Remeron] 15 mg PO HS 11/23/16 11/16/17 History lamoTRIgine [LaMICtal] 100 mg PO BID 03/13/17 11/16/17 History Buprenorphine HCl/Naloxone HCl 0.5 film SL BID PRN 08/09/17 11/16/17 History [Suboxone 8 mg-2 mg Sl Film] OLANZapine [ZyPREXA] 15 mg PO DAILY 08/09/17 11/16/17 History Omeprazole Magnesium [PriLOSEC OTC] 20 mg PO HS 11/16/17 11/16/17 History Allergies Allergy/AdvReac Type Severity Reaction Status Date / Time codeine Allergy Swelling Verified 11/16/17 15:48 furosemide [From Lasix] Allergy Rash/Hives Verified 11/16/17 15:48 haloperidol [From Haldol] Allergy Unknown Verified 11/16/17 15:48 prochlorperazine Allergy Swelling Verified 11/16/17 15:48 lactose AdvReac Diarrhea Verified 11/16/17 15:48 Surgical - Exam Vital Signs Temp Pulse Resp BP Pulse Ox 98.6 F 108 H 18 126/70 95 11/16/17 15:24 11/16/17 15:24 11/16/17 15:24 11/16/17 15:24 11/16/17 15:24 - General well developed, no distress - Eyes PERRL - Respiratory normal expansion - Cardiovascular Rhythm: regular - Abdomen Mild epigastric tenderness. There is no rebound or guarding. Abdomen: soft Results - Labs 11/17/17 08:54 11/17/17 08:54 Abnormal Lab Results - Last 24 Hours (Table) 11/16/17 11/16/17 11/16/17 Range/Units 16:15 16:15 16:15 WBC 19.3 H (3.8-10.6) k/uL Hgb (13.0-17.5) gm/dL MCV 79.7 L (80.0-100.0) fL MCHC (31.0-37.0) g/dL Neutrophils # 15.0 H (1.3-7.7) k/uL Monocytes # 1.1 H (0-1.0) k/uL Eosinophils # 0.8 H (0-0.7) k/uL PT 12.3 H (9.0-12.0) sec INR 1.3 H (<1.2) Glucose 113 H (74-99) mg/dL Alkaline Phosphatase 199 H (38-126) U/L Total Protein (6.3-8.2) g/dL Albumin (3.5-5.0) g/dL Urine Protein (Negative) Urine Mucus (None) /hpf 11/16/17 11/17/17 11/17/17 Range/Units 16:15 08:54 08:54 WBC (3.8-10.6) k/uL Hgb 12.3 L (13.0-17.5) gm/dL MCV (80.0-100.0) fL MCHC 30.3 L (31.0-37.0) g/dL Neutrophils # (1.3-7.7) k/uL Monocytes # (0-1.0) k/uL Eosinophils # (0-0.7) k/uL PT (9.0-12.0) sec INR (<1.2) Glucose (74-99) mg/dL Alkaline Phosphatase 193 H (38-126) U/L Total Protein 5.9 L (6.3-8.2) g/dL Albumin 3.3 L (3.5-5.0) g/dL Urine Protein 1+ H (Negative) Urine Mucus Many H (None) /hpf Diabetes panel 11/16/17 11/17/17 Range/Units 16:15 08:54 Sodium 137 139 (137-145) mmol/L Potassium 4.4 3.6 (3.5-5.1) mmol/L Chloride 102 107 (98-107) mmol/L Carbon Dioxide 22 24 (22-30) mmol/L BUN 11 10 (9-20) mg/dL Creatinine 0.69 0.77 (0.66-1.25) mg/dL Glucose 113 H 95 (74-99) mg/dL Calcium 9.5 8.9 (8.4-10.2) mg/dL AST 37 41 (17-59) U/L ALT 28 32 (21-72) U/L Alkaline Phosphatase 199 H 193 H (38-126) U/L Total Protein 7.7 5.9 L (6.3-8.2) g/dL Albumin 4.3 3.3 L (3.5-5.0) g/dL Calcium panel 11/16/17 11/17/17 Range/Units 16:15 08:54 Calcium 9.5 8.9 (8.4-10.2) mg/dL Albumin 4.3 3.3 L (3.5-5.0) g/dL Pituitary panel 11/16/17 11/17/17 Range/Units 16:15 08:54 Sodium 137 139 (137-145) mmol/L Potassium 4.4 3.6 (3.5-5.1) mmol/L Chloride 102 107 (98-107) mmol/L Carbon Dioxide 22 24 (22-30) mmol/L BUN 11 10 (9-20) mg/dL Creatinine 0.69 0.77 (0.66-1.25) mg/dL Glucose 113 H 95 (74-99) mg/dL Calcium 9.5 8.9 (8.4-10.2) mg/dL Adrenal panel 11/16/17 11/17/17 Range/Units 16:15 08:54 Sodium 137 139 (137-145) mmol/L Potassium 4.4 3.6 (3.5-5.1) mmol/L Chloride 102 107 (98-107) mmol/L Carbon Dioxide 22 24 (22-30) mmol/L BUN 11 10 (9-20) mg/dL Creatinine 0.69 0.77 (0.66-1.25) mg/dL Glucose 113 H 95 (74-99) mg/dL Calcium 9.5 8.9 (8.4-10.2) mg/dL Total Bilirubin 0.8 0.5 (0.2-1.3) mg/dL AST 37 41 (17-59) U/L ALT 28 32 (21-72) U/L Alkaline Phosphatase 199 H 193 H (38-126) U/L Total Protein 7.7 5.9 L (6.3-8.2) g/dL Albumin 4.3 3.3 L (3.5-5.0) g/dL Assessment and Plan Assessment: History of chronic pancreatitis with pseudocyst formation. Patient's CAT scan will be reviewed. When he has improved. We may consider cyst gastrostomy for internal drainage of his pancreatic pseudocyst.
[2017-11-17] MEDS: MIRTAZAPINE 15 MG TAB PO SCH (21:13)
[2017-11-17] MEDS: PANTOPRAZOLE 40 MG TABLET PO SCH (21:13)
--- NOTE | 2017-11-17 23:29 | HP ---
HISTORY AND PHYSICAL CHIEF COMPLAINT: A 42-year-old white male with abdominal pain. HISTORY OF PRESENT ILLNESS: A 42-year-old white male was admitted with acute pancreatitis and pseudocyst x2 in the abdomen for which Surgery has been consulted and Infectious Disease for possible sepsis. Also complaining of shortness of breath with possible pleural effusion. He had a thoracotomy prior. Pulmonology will also be consulted. MEDICATIONS: See list. PAST MEDICAL HISTORY: Chronic pancreatitis and pseudocysts. SOCIAL HISTORY: Denies alcohol and does smoke long-term. He is single. REVIEW OF SYSTEMS: Negative except for mentioned in HPI 14 point. VITAL SIGNS: Reviewed. CARDIOVASCULAR: S1, S2. LUNGS: Clear. Some rhonchi and rales at the right lower base. HEMATOLOGY: Negative Homans'. GI: Soft. PSYCH: Fair mood and affect. OPHTHALMOLOGIC: Pupils equal, round, react to light and accommodation. NEUROLOGIC: Alert and oriented x3. PSYCH: Fair mood and affect. ASSESSMENT: 1. Acute pancreatitis. 2. Pseudocyst x2. 3. Acute abdominal pain secondary to 1 and 2. 4. Dehydration. 5. Chronic pain. 6. Bipolar disorder. Continue with current medications, pain control, bowel rest, IV antibiotics for possible infected pancreatic pseudocysts. Pulmonary to reassess for possible hemopneumothorax. MMODL / IJN: [id number] /
[2017-11-18] MEDS ORDERED: MORPHINE SULFATE 4 MG/ML SYRINGE ONE (01:42)
[2017-11-18] MEDS: SODIUM CHLORIDE 0.9% 1,000 ML IV SCH ×3 (05:06→21:51)
[2017-11-18] MEDS: MORPHINE SULFATE 4 MG/ML SYRINGE IV PRN ×5 (05:43→21:49)
[2017-11-18] MEDS: PIPERACILLIN-TAZOBACTAM 3.375 GM in DEXTROSE/WATER 1 50ML.BAG IVPB SCH ×3 (08:18→23:12)
[2017-11-18] MEDS: lamoTRIgine 100 MG TAB PO SCH ×2 (08:18→21:17)
[2017-11-18] MEDS: OLANZapine 5 MG TAB PO SCH (08:18)
--- NOTE | 2017-11-18 09:27 | CONS ---
CONSULTATION DATE OF SERVICE: 11/17/2017. REASON FOR CONSULTATION: Fever. HISTORY OF PRESENT ILLNESS: The patient is a 42-year-old male with a past medical history significant for chronic recurrent pancreatitis with pseudocyst formation. The patient did have drainage of this pseudocyst drained at [facility] and was recently admitted to this facility with sepsis. The patient was discharged back on 08/23/2017 and has been doing well for the last almost 3 months now. However, 3 days ago the patient started having pain mostly in the epigastric area. Pain described to be sharp in nature almost 7 to 8 out of 10, and no radiation. The patient felt nauseated, but no vomiting. The patient denies any high-grade fever. However, on arrival to the ER, the patient did have a fever of 100.8. The patient did have an elevated white count of 19.3. The patient did have a CT of abdomen and pelvis completed, which did show inflammatory changes around the pancreas with a pseudocyst formation which has increased in size compared to the last exam. The patient did have blood cultures drawn. He has been admitted hospital. Infectious Disease was consulted for further recommendation regarding antibiotic therapy. REVIEW OF SYSTEMS: CONSTITUTIONAL: Positive for weakness and fever on admission. EYES: No complaint. ENT: No complaint. RESPIRATORY: No complaint. CARDIOVASCULAR: No complaint. GENITOURINARY: No complaint. GASTROINTESTINAL: As per HPI. MUSCULOSKELETAL: No complaint. INTEGUMENTARY: No complaint. PSYCHOLOGICAL: No complaint. ENDOCRINE: No complaint. NEUROLOGICAL: No complaint. PAST MEDICAL HISTORY: Past medical history significant for bipolar disorder, hepatitis C, COPD, chronic necrotizing pancreatitis and chronic back pain. PAST SURGICAL HISTORY: Appendectomy, eye surgery, drainage of the pseudocyst. SOCIAL HISTORY: Positive for smoking. Denies drinking or drug use. FAMILY HISTORY: no pertinent findings noticed ALLERGIES: Allergies to FUROSEMIDE, HALOPERIDOL, CODEINE. MEDICATIONS: Medications include the patient is currently on Tylenol, Lamictal, Remeron, morphine sulfate, Narcan, Zyprexa, Zofran, Protonix. PHYSICAL EXAMINATION: On examination, blood pressure is 127/71 with a pulse of 87, temperature 98.6. He is 95% on room air. General description is a middle-aged male lying in bed in no distress. No tachypnea or accessory muscle of respiration use. HEENT examination shows no pallor or scleral icterus. Oral mucous membrane is dry. No pharyngeal erythema or thrush. NECK: Trachea central. No thyromegaly. LUNGS: Unlabored breathing with decreased breath sounds at the bases. No wheeze or crackle. HEART: S1, S2. Regular rate and rhythm. ABDOMEN: Soft, mildly distended. No guarding or rigidity. No organomegaly. EXTREMITIES: No edema of feet. SKIN EXAMINATION: No rash or mass palpable. NEUROLOGIC: The patient is awake, alert, oriented x3. Mood and affect normal. LABS: Hemoglobin 12.3, white count 10.2, admission white count was 19.3 with a BUN of 10, creatinine 0.77. Liver enzymes are normal. Urine is negative. Blood culture so far negative. DIAGNOSTIC IMPRESSION AND PLAN: Patient admitted to the hospital with abdominal pain in a patient who did have a component of sepsis and did have a fever of 100.8, did have elevated white count in a patient who did have chronic necrotizing pancreatitis now with pseudocyst formation that has increased in size with concern for possible infected pseudocyst to be on the top of list in few of the fever and elevated white count and will likely need to cover for the enteric gram-negative both aerobes and anaerobes. PLAN: 1. Zosyn 3.375 grams q.8 hours. 2. The patient will benefit from drainage of this abscess and the fluid should be sent for culture, both aerobic and anaerobic. 3. Depending upon his clinical response as well as cultures, will adjust his medication further if needed. Thank you for this consultation. Will follow this patient along with you. MMODL / IJN: [id number] / PINA
[2017-11-18] MEDS: MIRTAZAPINE 15 MG TAB PO SCH (21:17)
[2017-11-18] MEDS: PANTOPRAZOLE 40 MG TABLET PO SCH (21:17)
--- NOTE | 2017-11-18 22:54 | PN ---
PROGRESS NOTE DATE OF SERVICE: 11/18/2017. REASON FOR FOLLOWUP: Sepsis, question of possible infection. INTERVAL HISTORY: The patient overall fever pattern has improved. She has been breathing comfortably. The patient complaining of feeling hungry and wants to eat. Denies having any chest pain or shortness of breath, cough and no diarrhea. EXAMINATION: His blood pressure is 110/70 with a pulse of 77, temperature 97.3. He is 92% on room air. General description is a middle-aged male lying in bed in no distress. Respiratory system: Unlabored breathing. Clear to auscultation anteriorly. Heart S1, S2. Regular rate and rhythm soft. Abdomen soft. No guarding or rigidity. LABS: White count 10.2, blood culture negative so far. DIAGNOSTIC IMPRESSION AND PLAN: Patient admitted to the hospital with a fever and elevated white count. He did have abdominal pain in a patient who did have a CT abdominal and pelvis suspicious for increase in the size of his pancreatic pseudocyst with Concern for possible infectious pseudocyst. The patient to continue Zosyn while watching his clinical course closely. Continue supportive care. MMODL / IJN: [id number] / [email or web address]
--- NOTE | 2017-11-18 23:12 | PN ---
PROGRESS NOTE SUBJECTIVE: 42-year-old white male with pancreatitis, pseudocyst, pancreatitis. IV Zosyn at this time. Await for surgical recommendations. Cardiovascular: S1-S2. Lungs clear. GI soft. Tenderness to palpation. Diffuse abdomen. Hematology: Negative Homans. ASSESSMENT: 1. Acute pancreatitis. 2. Pancreatic pseudocyst x2. 3. Bipolar. 4. Possible perfusion. Get Pulmonary consulted. Await for surgical recommendations. MMODL / IJN: [id number] /
[2017-11-19] MEDS: MORPHINE SULFATE 4 MG/ML SYRINGE IV PRN ×6 (01:49→21:43)
[2017-11-19] MEDS: SODIUM CHLORIDE 0.9% 1,000 ML IV SCH ×3 (05:58→23:06)
--- NOTE | 2017-11-19 07:20 | P.PN ---
Progress Note - Text Progress Note Date: 11/18/17 the patient feels slightly improved. He has had decreased pain. He currently is hungry. He is requesting something to eat. On exam his vital signs are stable. His abdomen is soft. There is some mild epigastric pain. History of chronic pericarditis. Patient will have his diet advanced to clear liquid diet. I discussed with him that he needs toy optimized prior to considering laparoscopic cyst gastrostomy. The patient will eventually discharged home. He'll follow-up in the office in outpatient to have this procedure scheduled.
[2017-11-19] MEDS: PIPERACILLIN-TAZOBACTAM 3.375 GM in DEXTROSE/WATER 1 50ML.BAG IVPB SCH ×3 (07:49→23:06)
[2017-11-19] MEDS: OLANZapine 5 MG TAB PO SCH (07:50)
[2017-11-19] MEDS: lamoTRIgine 100 MG TAB PO SCH ×2 (07:50→20:01)
--- NOTE | 2017-11-19 08:45 | P.PN ---
Subjective Progress Note Date: 11/19/17 Principal diagnosis: Pancreatitis 11/19/2017: Patient seen and examined covering for Dr. Camacho. Patient states she is feeling much better. His abdominal pain is improving. He is tolerating clear liquid diet. He states he would like to try eating more food today. He has been hemodynamically stable. He is currently on room air. Objective - Vital Signs Vital signs: Vital Signs Temp 97.0 F L 11/19/17 07:00 Pulse 74 11/19/17 07:00 Resp 16 11/19/17 07:00 BP 99/68 11/19/17 07:00 Pulse Ox 97 11/19/17 07:00 Intake & Output 11/18/17 11/19/17 11/19/17 18:59 06:59 18:59 Other: Voiding Method Toilet # Voids 3 3 - Exam Gen.: Patient is alert and oriented 3, no acute distress Cardiovascular: Regular rate and rhythm, S1/S2 Lungs: Clear to auscultation bilaterally no wheezes rales or rhonchi Abdomen: Soft nontender nondistended positive bowel sounds Extremities: No edema - Labs CBC & Chem 7: 11/17/17 08:54 11/17/17 08:54 Labs: Microbiology - Last 24 Hours (Table) 11/16/17 19:33 Blood Culture - Preliminary Blood No Growth after 48 hours Assessment and Plan Assessment: Acute on chronic pancreatitis, possibly infected 2/4 SIRS POA Pancreatic pseudocyst Splenomegaly Fatty liver Bipolar disorder Mild PCM GERD Tobacco abuse History of seizure disorder Hepatitis C History of IVDA use Advance diet as tolerated Pain control ABX per ID: Adriann Pulmonary consulted CXR today Smoking cessation Surgery recommendations Incentive spirometry and pulmonary hygiene Continue patient's home medications GI and DVT prophylaxis Decrease IVF Patient seen and examined covering for Dr. Camacho.
[2017-11-19 09:16] VITALS: BMI 31.5
--- NOTE | 2017-11-19 09:16 | XR ---
EXAMINATION TYPE: XR chest 1V portable DATE OF EXAM: 11/19/2017 COMPARISON: 08/22/2017 HISTORY: Cough TECHNIQUE: Single frontal view of the chest is obtained. FINDINGS: Subsegmental changes along the right lung base. Calcified granulomas involving the apex. N o overt failure. No pneumothorax or pleural effusion. Hypertrophic and degenerative change of the spi ne incidentally noted. IMPRESSION: Basilar atelectasis or early infiltrate.
[2017-11-19] MEDS: HEPARIN SODIUM,PORCINE 5,000 UNIT/ML 1 ML VIAL SQ SCH ×3 (09:40→23:06)
--- NOTE | 2017-11-19 14:04 | P.CNPUL ---
History of Present Illness Consult date: 11/19/17 Reason for consult: dyspnea, chest pain, other Chief complaint: Sharp chest pain History of present illness: Pulmonary consult dated 11/19/2017 This is a 42-year-old male who was recently here in the hospital back in July. He has a history of chronic necrotizing pancreatitis who presented to the emergency department with chief complaint of abdominal pain. He also describes some chest pain which I believe is being caused by findings in his abdomen. The patient has a history of pseudocyst formation in the pancreas which have worsened. The patient also has worsening splenomegaly. About 3 days prior to admission he developed a sharp pain in his abdomen and chest area. It appears to be a sharp pain worse with deep breathing or yawning. It appears to be either pleuritic in nature though I doubt that versus an intra-abdominal pain was by his current pancreatic situation. He denies any fever or chills. He denies any shortness of breath per se. This no diarrhea or constipation. No urinary complaints. The patient has not had any nausea or vomiting. Has not really eaten very much. The patient previously had a video-assisted thoracoscopic decortication of a right lung/pleural space abscess/infection. This was done by Dr. Dr. Sargent. When he was here the last time, he saw my partner Dr. Washington. His past medical history is positive for pancreatitis pancreatic pseudocyst seizures hepatitis C IV drug use crack cocaine use degenerative disc disease arthritic changes in the knees hips and arms status post cholecystectomy cholelithiasis and appendectomy. Review of Systems The patient describes a sharp pleuritic-like pain on deep breathing and yawning. I believe is being caused by her emanating from the abdomen. There may be diaphragmatic irritation from his chronic pancreatitis and pancreatic pseudocyst. I don't believe is a lung issue. Chest x-ray looks pretty normal and the computed tomography scan of the abdomen which reveals the bases of the lungs show no abnormality. Past Medical History Past Medical History: COPD, Musculoskeletal Disorder, Seizure Disorder Additional Past Medical History / Comment(s): History of seizures-per patient, his last seizure was in 2011, Hepatitis C, history of IV drug use, history of crack cocaine use, Degenerative disc disease in back, possible arthritis in knees, hips and arms. , History of chronic pancreatitis who presented status post cholecystectomy and the patient has history of pancreatitis and pancreatic pseudocyst formation and cholelithiasis and he was treated in the past. [facility]. History of Any Multi-Drug Resistant Organisms: None Reported Past Surgical History: Appendectomy Additional Past Surgical History / Comment(s): Appendectomy-1996, eye surgery- 1998, drain for pancreatitis Past Anesthesia/Blood Transfusion Reactions: No Reported Reaction Past Psychological History: Bipolar, Depression Smoking Status: Current every day smoker Past Alcohol Use History: None Reported Additional Past Alcohol Use History / Comment(s): Patient reports he drinks approximately 4 times a year-last drink per patient was this passed wednesday. 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 pt states that he is buying them off the street - Past Family History Brother(s) Additional Family Medical History / Comment(s): Chronic alcoholism Sister(s) Additional Family Medical History / Comment(s): Chronic alcoholism Daughter(s) Additional Family Medical History / Comment(s): One daughter healthy Son(s) Additional Family Medical History / Comment(s): One son healthy Father History Unknown: Yes Family Medical History: AICD/Pacemaker, Myocardial Infarction ([place]) Additional Family Medical History / Comment(s): Schizophrenia. Per patient, his father at the age of 59 Mother History Unknown: Yes Family Medical History: No Reported History Additional Family Medical History / Comment(s): HPV Medications and Allergies Home Medications Medication Instructions Recorded Confirmed Type Mirtazapine [Remeron] 15 mg PO HS 11/23/16 11/16/17 History lamoTRIgine [LaMICtal] 100 mg PO BID 03/13/17 11/16/17 History Buprenorphine HCl/Naloxone HCl 0.5 film SL BID PRN 08/09/17 11/16/17 History [Suboxone 8 mg-2 mg Sl Film] OLANZapine [ZyPREXA] 15 mg PO DAILY 08/09/17 11/16/17 History Omeprazole Magnesium [PriLOSEC OTC] 20 mg PO HS 11/16/17 11/16/17 History Allergies Allergy/AdvReac Type Severity Reaction Status Date / Time codeine Allergy Swelling Verified 11/16/17 15:48 furosemide [From Lasix] Allergy Rash/Hives Verified 11/16/17 15:48 haloperidol [From Haldol] Allergy Unknown Verified 11/16/17 15:48 prochlorperazine Allergy Swelling Verified 11/16/17 15:48 lactose AdvReac Diarrhea Verified 11/16/17 15:48 Physical Exam Osteopathic Statement: *. No significant issues noted on an osteopathic structural exam other than those noted in the History and Physical/Consult. Vitals: Vital Signs Temp Pulse Resp BP BP Pulse Ox 11/19/17 07:00 97.0 F L 74 16 99/68 97 11/18/17 22:50 98.9 F 83 20 118/61 94 L 11/18/17 15:05 16 11/18/17 14:40 97.3 F L 77 16 110/70 96 Intake and Output 11/18/17 11/19/17 11/19/17 22:59 06:59 14:59 Other: Voiding Method Toilet # Voids 2 3 Weight 99.79 kg No acute distress, oriented 3. HEENT examination is grossly unremarkable. Mucous membranes are moist. No oral lesions. Neck supple. Full range of motion. No adenopathy thyromegaly or neck vein distention. Cardiovascular examination reveals regular rhythm rate. S1-S2 normal. No S3 or S4. No discernible murmur noted. Lungs reveal mostly clear breath sounds. His breath sounds are equal bilaterally. A few minimal basilar crackles are appreciated. Abdomen soft bowel sounds are heard. No masses or tenderness. Extremities are intact. No cyanosis clubbing or edema. Skin is without rash or lesion. Neurologic examination is brief but nonfocal. Results - Laboratory Findings CBC and BMP: 11/17/17 08:54 11/17/17 08:54 PT/INR, D-dimer PT 12.3 sec (9.0-12.0) H 11/16/17 16:15 INR 1.3 (<1.2) H 11/16/17 16:15 Abnormal lab findings: Abnormal Labs 11/16/17 11/16/17 11/16/17 16:15 16:15 16:15 WBC 19.3 H Hgb MCV 79.7 L MCHC Neutrophils # 15.0 H Monocytes # 1.1 H Eosinophils # 0.8 H PT 12.3 H INR 1.3 H Glucose 113 H Alkaline Phosphatase 199 H Total Protein Albumin Urine Protein Urine Mucus 11/16/17 11/17/17 11/17/17 16:15 08:54 08:54 WBC Hgb 12.3 L MCV MCHC 30.3 L Neutrophils # Monocytes # Eosinophils # PT INR Glucose Alkaline Phosphatase 193 H Total Protein 5.9 L Albumin 3.3 L Urine Protein 1+ H Urine Mucus Many H - Diagnostic Findings Chest x-ray: report reviewed (Chest x-ray, labs and medications are reviewed.), image reviewed Assessment and Plan Assessment: Assessment Shortness of breath and sharp pain on deep inspiration, likely related to an intra-abdominal process and unrelated to the intrathoracic abnormality. History of chronic pancreatitis with pseudocyst formation History of seizures History of hepatitis C History of illicit drug use including IV drug use and crack cocaine Degenerative disc disease DJD Status post cholecystectomy History of depression History of ongoing tobacco use and nicotine addiction Plan: Plan dated 11/19/2017 I don't believe the patient has an active pulmonary process at this time. I believe his pain which is mostly abdominal in nature relates to the chronic pancreatitis and pseudocyst formation. The pain does have a pleuritic component but I believe it is created by the chronic pancreatitis/diaphragmatic irritation. The patient's pulmonary status at this time is stable. Chest x- ray showed some minimal atelectasis in the right lung base but computed tomography scan of the abdomen revealed no abnormalities in the lung bases. The patient is not producing any phlegm. The patient doesn't have any wheezing or tightness in the chest. Time with Patient: Greater than 30
--- NOTE | 2017-11-19 18:12 | P.PN ---
Progress Note - Text Progress Note Date: 11/19/17 The patient is resting comfortably in his bed. He is requesting 48. On exam his vital signs are stable. Abdomen soft. Chronic pancreatitis with pseudocyst formation. He is improving. Patient will most likely be discharged home the next day or so. We'll plan for outpatient laparoscopic cyst gastrostomy.
[2017-11-19] MEDS: PANTOPRAZOLE 40 MG TABLET PO SCH (20:01)
[2017-11-19] MEDS: MIRTAZAPINE 15 MG TAB PO SCH (20:01)
--- NOTE | 2017-11-19 22:49 | PN ---
PROGRESS NOTE DATE OF SERVICE: 11/19/2017. REASON FOR FOLLOWUP: Pancreatic pseudocyst, question of infected cyst. INTERVAL HISTORY: The patient is afebrile. His abdominal pain currently controlled. He has been started on a clear liquid diet. He has been tolerating with no abdominal pain. No nausea, no vomiting and no diarrhea. EXAMINATION: Blood pressure 101/57 with a pulse of 75, temperature 98.8. He is 97% on room air. General description is a middle-aged male lying in bed in no distress. RESPIRATORY SYSTEM: Unlabored breathing. Clear to auscultation anteriorly. HEART: S1, S2. Regular rate and rhythm. ABDOMEN: Soft. Mild tenderness. No guarding. No rigidity. EXTREMITIES: No edema of feet. LABS: No new labs have been obtained today. Blood culture has been negative. DIAGNOSTIC IMPRESSION AND PLAN: Patient admitted to the hospital with a fever and elevated white count. The patient did have abdominal pain with concern for worsening of his pancreatic pseudocyst, question of possible infection. Currently on empiric Zosyn, will be continued. Waiting for surgical drainage of the same, which should be sent for culture. Continue with supportive care. MMODL / IJN: [id number] /
[2017-11-20] MEDS: MORPHINE SULFATE 4 MG/ML SYRINGE IV PRN ×6 (02:05→22:07)
[2017-11-20] MEDS: HEPARIN SODIUM,PORCINE 5,000 UNIT/ML 1 ML VIAL SQ SCH ×3 (07:56→23:21)
[2017-11-20] MEDS: PIPERACILLIN-TAZOBACTAM 3.375 GM in DEXTROSE/WATER 1 50ML.BAG IVPB SCH ×3 (08:01→23:38)
[2017-11-20] MEDS: OLANZapine 5 MG TAB PO SCH (08:01)
[2017-11-20] MEDS: lamoTRIgine 100 MG TAB PO SCH ×2 (08:01→20:18)
--- NOTE | 2017-11-20 08:31 | P.PN ---
Subjective Progress Note Date: 11/20/17 Principal diagnosis: Pancreatitis Patient feels better today. Pain is decreased. His diet was advanced. Possible discharge later today or tomorrow. Objective - Vital Signs Vital signs: Vital Signs Temp 97.8 F 11/20/17 07:20 Pulse 63 11/20/17 07:20 Resp 16 11/20/17 07:20 BP 115/58 11/20/17 07:20 Pulse Ox 98 11/20/17 07:20 Intake & Output 11/19/17 11/20/17 11/20/17 18:59 06:59 18:59 Intake Total 600 Balance 600 Weight 99.79 kg 99.79 kg Intake: Oral 600 Other: Voiding Method Toilet # Voids 3 2 # Bowel Movements 0 0 - Exam Abdomen: Soft, nondistended, mild epigastric tenderness - Labs CBC & Chem 7: 11/17/17 08:54 11/17/17 08:54 Labs: Microbiology - Last 24 Hours (Table) 11/16/17 19:33 Blood Culture - Preliminary Blood No Growth after 72 hours Assessment and Plan (1) Acute pancreatitis Narrative/Plan: Continue advancing diet. Follow-up with Dr. Hicks next week as outpatient. Current Visit: No Status: Acute Code(s): K85.90 - ACUTE PANCREATITIS WITHOUT NECROSIS OR INFECTION, UNSP SNOMED Code(s): 005953326
--- NOTE | 2017-11-20 14:23 | PN ---
PROGRESS NOTE DATE OF SERVICE: 11/20/2017 He has been hemodynamically stable. He has less shortness of breath on physical examination. Respiratory rate is 16, pulse rate of 63, temperature 97.8, blood pressure 150/58, O2 SAT on room air is 98%. HEENT is unremarkable. Chest reveals decreased breath sounds. Cardiovascular system with an S1, S2. Abdomen is soft. There is no pedal edema. IMPRESSION: 1. Acute on chronic pancreatitis. 2. Pancreatic pseudocyst. 3. Bipolar disorder. 4. History of IV drug abuse. Keep his pain under control. Increase his activity level. Advance his diet. Depending on how he does, we shall make further changes to his care. MMODL / IJN: [id number] /
[2017-11-20] MEDS: MIRTAZAPINE 15 MG TAB PO SCH (20:18)
[2017-11-20] MEDS: PANTOPRAZOLE 40 MG TABLET PO SCH (20:18)
[2017-11-21 00:28] VITALS: RESP 18
[2017-11-21] MEDS: MORPHINE SULFATE 4 MG/ML SYRINGE IV PRN ×3 (02:42→10:23)
[2017-11-21 06:31] VITALS: BP 106/62; PULSE 76; TEMP 96.9
[2017-11-21] MEDS: HEPARIN SODIUM,PORCINE 5,000 UNIT/ML 1 ML VIAL SQ SCH (07:16)
[2017-11-21] MEDS: OLANZapine 5 MG TAB PO SCH (07:17)
[2017-11-21] MEDS: lamoTRIgine 100 MG TAB PO SCH (07:17)
[2017-11-21] MEDS: PIPERACILLIN-TAZOBACTAM 3.375 GM in DEXTROSE/WATER 1 50ML.BAG IVPB SCH (07:17)
--- NOTE | 2017-11-21 10:55 | P.PN ---
Subjective Progress Note Date: 11/21/17 Principal diagnosis: Pancreatitis Patient doing well today. Pain is improved. Tolerating diet. Objective - Vital Signs Vital signs: Vital Signs Temp 96.9 F L 11/21/17 06:30 Pulse 76 11/21/17 06:30 Resp 18 11/21/17 06:30 BP 106/62 11/21/17 06:30 Pulse Ox 96 11/21/17 06:30 Intake & Output 11/20/17 11/21/17 11/21/17 18:59 06:59 18:59 Intake Total 1000 480 Balance 1000 480 Weight 99.79 kg Intake: Oral 1000 480 Other: Voiding Method Toilet Toilet Toilet # Voids 3 1 # Bowel Movements 0 - Exam Abdomen: Soft, nondistended, mild epigastric tenderness - Labs CBC & Chem 7: 11/17/17 08:54 11/17/17 08:54 Labs: Microbiology - Last 24 Hours (Table) 11/16/17 19:33 Blood Culture - Preliminary Blood No Growth after 96 hours Assessment and Plan (1) Acute pancreatitis Narrative/Plan: Continue diet as tolerated at this point. Follow-up with Dr. Hicks postdischarge. Current Visit: No Status: Acute Code(s): K85.90 - ACUTE PANCREATITIS WITHOUT NECROSIS OR INFECTION, UNSP SNOMED Code(s): 126163164
--- NOTE | 2017-11-23 09:56 | CDI ---
Last Revision, March 2017 Documentation Clarification Form Date: 11/23/2017 12:00:00 AM From: Gina Gilmore Phone: If you have a question about this query, please contact Sulma Laws Technical Expert at [phone] between 8am and 5pm. Admit Date: 11/16/2017 6:41:00 PM Patient Name: Jaun Ralph Visit Number: [id number] Discharge Date: 11/21/17 ATTENTION: The Clinical Documentation Specialists (CDI) and [facility] Coding Staff appreciate your assistance in clarifying documentation. Please respond to the clarification below the line at the bottom and electronically sign. The CDI & [facility] Coding staff will review the response and follow-up if needed. Please note: Queries are made part of the Legal Health Record. If you have any questions, please contact the author of this message via ITS. Dr. Bandar Camacho Documentation in H and P states consult for possible sepsis. Consult states "a component of sepsis". Please clarify if patient had sepsis. History/Risk Factors: pseudocyst, acute and chronic pancreatitis In your professional opinion, please clarify if these findings signify one of the following conditions, whether the condition is POA, and cause, if known: Condition Sepsis ruled out SIRS, without underlying infectious process Sepsis Severe Sepsis Present on Admission: Yes No ____ MTDD
--- NOTE | 2017-11-26 04:34 | CDI ---
Last Revision, March 2017 Documentation Clarification Form Date: 11/26/2017 4:07:00 AM From: Gina Gilmore Phone: If you have a question about this query, please contact Sulma Laws Medical Insurance Coder at [phone] between 8am and 5pm. Admit Date: 11/16/2017 6:41:00 PM Patient Name: Juan Ralph Visit Number: [id number] Discharge Date: 11/21/2017 ATTENTION: The Clinical Documentation Specialists (CDI) and [facility] Coding Staff appreciate your assistance in clarifying documentation. Please respond to the clarification below the line at the bottom and electronically sign. The CDI & [facility] Coding staff will review the response and follow-up if needed. Please note: Queries are made part of the Legal Health Record. If you have any questions, please contact the author of this message via ITS. Bandar Jimenez MD H and P documents consult needed for sepsis. Consult documents a component of sepsis. History/Risk Factors: infected pseudocyst, necrotizing pancreatiti WBC/Left Shift 19.3 Vitals signs on admission: 98.6 F 100.8 F, 108 94, 18 18, 126/70 109/63. 95 RA 99 RA Treatment: Antibiotics ID Consult: component of sepsis Antibiotics: Zosyn In your professional opinion, please clarify if these findings signify one of the following conditions, whether the condition is POA, and cause, if known: Condition Sepsis ruled out Sepsis Severe Sepsis Other, please specify Unable to determine Present on Admission: Yes No MTDD
--- NOTE | 2017-12-03 12:25 | CDI ---
Last Revision, March 2017 Documentation Clarification Form Date: 11/26/2017 4:07:00 AM From: Gina Gilmore Phone: If you have a question about this query, please contact Sulma Laws Army Ranger at [phone] between 8am and 5pm. Admit Date: 11/16/2017 6:41:00 PM Patient Name: Juan Ralph Visit Number: [id number] Discharge Date: 11/21/17 ATTENTION: The Clinical Documentation Specialists (CDI) and [facility] Coding Staff appreciate your assistance in clarifying documentation. Please respond to the clarification below the line at the bottom and electronically sign. The CDI & [facility] Coding staff will review the response and follow-up if needed. Please note: Queries are made part of the Legal Health Record. If you have any questions, please contact the author of this message via ITS. Bandar Jimenez MD H and P documents consult needed for sepsis. Consult documents a component of sepsis. History/Risk Factors: infected pseudocyst, necrotizing pancreatitis Clinical Indicators: WBC/Left Shift 19.3 Vitals signs on admission: 98.6 F 100.8 F, 108 94, 18 18, 126/70 109/63. 95 RA 99 RA Treatment: Antibiotics ID Consult: component of sepsis Antibiotics: Zosyn In your professional opinion, please clarify if these findings signify one of the following conditions, whether the condition is POA, and cause, if known: Condition Sepsis ruled out Sepsis Severe Sepsis Other, please specify Unable to determine Present on Admission: Yes No MTDD
--- NOTE | 2017-12-06 09:32 | CDI ---
Documentation Clarification Form Date: 12/06/17 From: Sulma Laws/Gina Gilmore Admit Date: 11/16/2017 6:41:00 PM Patient Name: Juan Ralph Visit Number: [id number] Discharge Date: 11/21/17 ATTENTION: The Clinical Documentation Specialists (CDI) and [facility] Coding Staff appreciate your assistance in clarifying documentation. Please respond to the clarification below the line at the bottom and electronically sign. The CDI & [facility] Coding staff will review the response and follow-up if needed. Please note: Queries are made part of the Legal Health Record. If you have any questions, please contact the author of this message via ITS. Dr. Camacho, H & P documents: consult needed for sepsis. Andi Consult documents: a component of sepsis. History/Risk Factors: infected pseudocyst, necrotizing chronic pancreatitis, acute & chronic pancreatitis. WBC/Left Shift 19.3 Vitals signs on admission: 98.6 F 100.8 F, 108 94, 18 18, 126/70 109/63. 95 RA 99 RA Treatment: Antibiotics ID Consult: component of sepsis Antibiotics: Zosyn In your professional opinion, please clarify if these findings signify one of the following conditions, and cause, if known: Sepsis ruled out Sepsis due to infectious pancreatitis Sepsis due to non-infectious pancreatitis Other, please specify Unable to determine MTDD
--- NOTE | 2017-12-10 10:46 | CDI ---
Last Revision, March 2017 Documentation Clarification Form Date: 11/26/2017 4:07:00 AM From: Gina Gilmore Phone: If you have a question about this query, please contact Sulma Laws Telephone Order Clerk Room Service at [phone] between 8am and 5pm. Admit Date: 11/16/2017 6:41:00 PM Patient Name: Juan Ralph Visit Number: [id number] Discharge Date:11/21/17 ATTENTION: The Clinical Documentation Specialists (CDI) and [facility] Coding Staff appreciate your assistance in clarifying documentation. Please respond to the clarification below the line at the bottom and electronically sign. The CDI & [facility] Coding staff will review the response and follow-up if needed. Please note: Queries are made part of the Legal Health Record. If you have any questions, please contact the author of this message via ITS. Bandar Jimenez MD H & P documents: consult needed for sepsis. Consult documents: a component of sepsis. History/Risk Factors: infected pseudocyst, necrotizing pancreatitis, acute & chronic pancreatitis Clinical Indicators: WBC/Left Shift 19.3 Vitals signs on admission: 98.6 F 100.8 F, 108 94, 18 18, 126/70 109/63. 95 RA 99 RA Treatment: Antibiotics ID Consult: component of sepsis Antibiotics: Zosyn In your professional opinion, please clarify if these findings signify one of the following conditions, and cause, if known: Sepsis ruled out Sepsis due to infectious pancreatitis Sepsis due to non infectious pancreatitis Severe Sepsis Other, please specify Unable to determine MTDD
--- NOTE | 2017-12-12 05:47 | DS ---
DISCHARGE SUMMARY ADDENDUM: Please add to discharge summary: Sepsis due to infectious pancreatitis. MMLETICIAL / IJN: [id number] /
== END 2017-11-21 11:28 | disposition home or self-care (01) | DRG 871 ==
LOC: EC 15:07 → 4MS4W 18:41
PROVIDERS: ADMIT Family Medicine; ATTEND Family Medicine
DX: A41.9 Sepsis, unspecified organism (principal); K85.91 Acute pancreatitis with uninfected necrosis, unspecified; E44.1 Mild protein-calorie malnutrition; K86.1 Other chronic pancreatitis; K86.3 Pseudocyst of pancreas; B19.20 Unspecified viral hepatitis C without hepatic coma; E86.0 Dehydration; F17.200 Nicotine dependence, unspecified, uncomplicated; F31.9 Bipolar disorder, unspecified; G40.909 Epilepsy, unspecified, not intractable, without status epilepticus; G89.29 Other chronic pain; J44.9 Chronic obstructive pulmonary disease, unspecified; K21.9 Gastro-esophageal reflux disease without esophagitis; K76.0 Fatty (change of) liver, not elsewhere classified; M17.0 Bilateral primary osteoarthritis of knee; M16.0 Bilateral primary osteoarthritis of hip; M47.9 Spondylosis, unspecified; Z81.8 Family history of other mental and behavioral disorders; Z82.49 Family history of ischemic heart disease and other diseases of the circulatory system; Z88.5 Allergy status to narcotic agent; Z88.8 Allergy status to other drugs, medicaments and biological substances; Z79.899 Other long term (current) drug therapy; F11.11 Opioid abuse, in remission; F14.11 Cocaine abuse, in remission; F15.11 Other stimulant abuse, in remission; Z81.1 Family history of alcohol abuse and dependence
CPT/HCPCS: 36415; 71045; 74177; 80053; 81001; 82150; 83690; 85025; 85610; 85730; 87040; 96361; 96365; 96375; 96376; 99285

== ENCOUNTER → 2017-12-10 | Outpatient (CLI) | payer MEDICARE ==
--- NOTE | 2017-12-12 22:57 | CT ---
EXAMINATION TYPE: CT abdomen w con DATE OF EXAM: 12/10/2017 COMPARISON: Most recent CT abdomen and pelvis November 16, 2017 and older studies. HISTORY: Pancreatitis per order. Prior abnormal CT with pancreatic cysts. CT DLP: 1306 mGycm, Automated Exposure Control for Dose Reduction was Utilized. CONTRAST: CT scan of the abdomen is performed with oral water and with IV Contrast, patient injected with 100 m L of Isovue 370. Pancreas protocol. FINDINGS: LUNG BASES: There is persistent anterior 1.0 cm calcified granuloma right lung base axial image 7. Th ere is bibasilar linear scarring and/or atelectasis redemonstrated. There are stable prominent border line 1 cm right pericardial lymph node axial image 6. LIVER/GB: Liver remains diffusely low density consistent with fatty infiltration. Liver remains enlar ged. PANCREAS: There is interval improvement in cystic lesion mid body of pancreas seen anteriorly now benita suring 5.0 x 3.4 cm axial image 37. There is persistent moderate to severe ill-defined fluid and fat stranding near head of pancreas extending into the marley hepatis and surrounding first portion of duo denum. There is heterogeneous enhancement of the pancreas. There is slightly better enhancement of th e uncinate process inferiorly seen best coronal image 45. There is suspicious air-fluid level with bl urring of fat planes posterior to the gastroduodenal junction axial image 36 anterior to head of panc reas which is poorly visualized. This likely reflects diminishing size pseudocyst based on prior stud y axial image 33. SPLEEN: Splenomegaly is redemonstrated measuring 15.5 cm long axis axial image 26. ADRENALS: No significant abnormality is seen. KIDNEYS: No significant abnormality is seen. BOWEL: No significant abnormality is seen. LYMPH NODES: No greater than 1cm abdominal lymph nodes are appreciated. OSSEOUS STRUCTURES: Prominent Schmorl node superior T11 endplate is redemonstrated. OTHER: No significant additional abnormality is seen. IMPRESSION: Continued improvement or diminished in size in cystic lesions surrounding pancreas consis tent with improving pseudocysts or areas of walled off necrosis. Cannot exclude increasing or more pr ominent acute pancreatitis near level of pancreatic head however.
== END | disposition home or self-care (01) ==
LOC: RADCTMAIN 17:25
PROVIDERS: ATTEND Surgery
DX: K86.1 Other chronic pancreatitis (principal)
CPT/HCPCS: 74160; Q9967

== ENCOUNTER 2017-12-15 07:54 | Day surgery (SDC) | payer MEDICARE ==
[2017-12-13 09:58] VITALS: BMI 31.5
[~2017-12-15 07:54] MED LIST: LACTATED RINGERS 1,000 ML IV SCH; LIDOCAINE 1% 20 ML VIAL (10MG/ML) FOR IV START INTRADERMA PRN
[2017-12-15 08:20] VITALS: RESP 16; TEMP 97.9
--- NOTE | 2017-12-15 09:01 | P.GSHP ---
History of Present Illness H&P Date: 12/15/17 Chief Complaint: Epigastric abdominal pain This a 42-year-old male who's had chronic epigastric abdominal pain related to pancreatic pseudocyst. Patient presents today for EGD. He is scheduled for laparoscopic cyst gastrostomy tomorrow. Past Medical History Past Medical History: COPD, Musculoskeletal Disorder, Seizure Disorder Additional Past Medical History / Comment(s): History of seizures-per patient, his last seizure 2011, Hepatitis C, history of IV drug use, history of crack cocaine use, Degenerative disc disease in back, possible arthritis in knees, hips and arms, History of chronic pancreatitis, pancreatic pseudocyst formation History of Any Multi-Drug Resistant Organisms: None Reported Past Surgical History: Appendectomy, Cholecystectomy Additional Past Surgical History / Comment(s): RK eye surgery-1998, drain for pancreatitis, RT LUNG THOROSCOPIC DECOTICATION Past Anesthesia/Blood Transfusion Reactions: No Reported Reaction Smoking Status: Current every day smoker - Past Family History Brother(s) Additional Family Medical History / Comment(s): Chronic alcoholism Sister(s) Additional Family Medical History / Comment(s): Chronic alcoholism Daughter(s) Additional Family Medical History / Comment(s): One daughter healthy Son(s) Additional Family Medical History / Comment(s): One son healthy Father History Unknown: Yes Family Medical History: AICD/Pacemaker, Myocardial Infarction ([place]) Additional Family Medical History / Comment(s): Schizophrenia. Per patient, his father at the age of 59 Mother History Unknown: Yes Family Medical History: No Reported History Additional Family Medical History / Comment(s): HPV Medications and Allergies Home Medications Medication Instructions Recorded Confirmed Type Mirtazapine [Remeron] 15 mg PO HS 11/23/16 12/15/17 History lamoTRIgine [LaMICtal] 100 mg PO BID 03/13/17 12/15/17 History Buprenorphine HCl/Naloxone HCl 0.5 film SL BID PRN 08/09/17 12/15/17 History [Suboxone 8 mg-2 mg Sl Film] OLANZapine [ZyPREXA] 15 mg PO HS 08/09/17 12/15/17 History Omeprazole Magnesium [PriLOSEC OTC] 20 mg PO HS 11/16/17 12/15/17 History Allergies Allergy/AdvReac Type Severity Reaction Status Date / Time codeine Allergy Swelling Verified 12/15/17 08:23 furosemide [From Lasix] Allergy Rash/Hives Verified 12/15/17 08:23 haloperidol [From Haldol] Allergy Unknown Verified 12/15/17 08:23 prochlorperazine Allergy Swelling Verified 12/15/17 08:23 lactose AdvReac Diarrhea Verified 12/15/17 08:23 Surgical - Exam Vital Signs Temp Pulse Resp BP Pulse Ox 97.9 F 109 H 16 124/77 93 L 12/15/17 08:18 12/15/17 08:18 12/15/17 08:18 12/15/17 08:18 12/15/17 08:18 - General well developed, no distress - Eyes PERRL - ENT normal pinna, normal mucosa - Neck no masses - Respiratory normal expansion - Cardiovascular Rhythm: regular - Abdomen Mild epigastric pain Abdomen: soft Assessment and Plan Assessment: Chronic pancreatitis pseudocyst. Patient will undergo EGD.
[2017-12-15] MEDS ORDERED: PROPOFOL 10 MG/ML 20 ML VIAL IV ONE (09:06)
[2017-12-15] MEDS ORDERED: LIDOCAINE 1% INJ 10MG/ML (20 ML MDV) ONE (09:06)
--- NOTE | 2017-12-15 09:22 | P.OP ---
Date of Procedure: 12/15/17 Preoperative Diagnosis: Pancreatic pseudocyst Postoperative Diagnosis: Pancreatic pseudocyst Procedure(s) Performed: EGD Anesthesia: MAC Surgeon: Donny Hicks Pathology: none sent Condition: stable Disposition: PACU Description of Procedure: The patient's placed on the endoscopy table in the lateral position. He received IV sedation. The gastric was placed oropharynx and passed in the esophagus and into the stomach. Scope was then placed through the pylorus. The first and second portion of the duodenum appeared normal. Scope was then brought back the antrum and this appeared without any significant inflammation. Scope was unretroflexed the remainder some appeared normal. There is a questionable area of the stomach with appeared to be the area the pseudocyst. There is known 70 erosions or inflammation. The GE junction was at 38 cm. The distal esophagus appeared normal. The proximal esophagus appeared normal. Scope was withdrawn for patient.
[2017-12-15 09:39] VITALS: BP 115/56; PULSE 85
== END 2017-12-15 09:54 | disposition home or self-care (01) ==
LOC: ORWHC2ENDO 07:54
PROVIDERS: ATTEND Surgery
DX: K86.3 Pseudocyst of pancreas (principal); J44.9 Chronic obstructive pulmonary disease, unspecified; K86.1 Other chronic pancreatitis; G89.29 Other chronic pain; G40.909 Epilepsy, unspecified, not intractable, without status epilepticus; Z86.19 Personal history of other infectious and parasitic diseases; F17.210 Nicotine dependence, cigarettes, uncomplicated; Z90.49 Acquired absence of other specified parts of digestive tract; Z79.899 Other long term (current) drug therapy; Z88.5 Allergy status to narcotic agent
CPT/HCPCS: 43235; J2001; J2704

== ENCOUNTER 2017-12-16 06:15 | Inpatient (IN) | payer MEDICARE ==
[2017-12-13 09:50] VITALS: BMI 31.5
[~2017-12-16 06:15] MED LIST changes: +DEXAMETHASONE SOD PHOSPHATE 10 MG/ML 1 ML VIAL IV ONE; +HEPARIN SODIUM,PORCINE 5,000 UNIT/ML 1 ML VIAL SQ ONE; -LIDOCAINE 1% 20 ML VIAL (10MG/ML) FOR IV START INTRADERMA PRN; +ONDANSETRON 4 MG/2 ML VIAL IVP ONE; +ceFAZolin IN SWFI 2 GM/20 ML SYRINGE IVP ONE
--- NOTE | 2017-12-16 07:50 | P.GSHP ---
History of Present Illness H&P Date: 12/16/17 Chief Complaint: Chronic pancreatitis, pancreatic pseudocyst This a 42-year-old male with history of chronic pancreatitis. Patient presents today for laparoscopic cyst gastrostomy. Patient has had issues with a chronic pancreatic pseudocyst. Dissected with epigastric pain. Past Medical History Past Medical History: COPD, Musculoskeletal Disorder, Seizure Disorder Additional Past Medical History / Comment(s): History of seizures-per patient, his last seizure 2011, Hepatitis C, history of IV drug use, history of crack cocaine use, Degenerative disc disease in back, possible arthritis in knees, hips and arms, History of chronic pancreatitis, pancreatic pseudocyst formation History of Any Multi-Drug Resistant Organisms: None Reported Past Surgical History: Appendectomy, Cholecystectomy Additional Past Surgical History / Comment(s): RK eye surgery-1998, drain for pancreatitis, RT LUNG THOROSCOPIC DECOTICATION Past Anesthesia/Blood Transfusion Reactions: No Reported Reaction Smoking Status: Current every day smoker - Past Family History Brother(s) Additional Family Medical History / Comment(s): Chronic alcoholism Sister(s) Additional Family Medical History / Comment(s): Chronic alcoholism Daughter(s) Additional Family Medical History / Comment(s): One daughter healthy Son(s) Additional Family Medical History / Comment(s): One son healthy Father History Unknown: Yes Family Medical History: AICD/Pacemaker, Myocardial Infarction ([place]) Additional Family Medical History / Comment(s): Schizophrenia. Per patient, his father at the age of 59 Mother History Unknown: Yes Family Medical History: No Reported History Additional Family Medical History / Comment(s): HPV Medications and Allergies Home Medications Medication Instructions Recorded Confirmed Type Mirtazapine [Remeron] 15 mg PO HS 11/23/16 12/15/17 History lamoTRIgine [LaMICtal] 100 mg PO BID 03/13/17 12/16/17 History Buprenorphine HCl/Naloxone HCl 0.5 film SL BID PRN 08/09/17 12/15/17 History [Suboxone 8 mg-2 mg Sl Film] OLANZapine [ZyPREXA] 15 mg PO HS 08/09/17 12/15/17 History Omeprazole Magnesium [PriLOSEC OTC] 20 mg PO HS 11/16/17 12/15/17 History Allergies Allergy/AdvReac Type Severity Reaction Status Date / Time codeine Allergy Swelling Verified 12/16/17 06:45 furosemide [From Lasix] Allergy Rash/Hives Verified 12/16/17 06:45 haloperidol [From Haldol] Allergy Unknown Verified 12/16/17 06:45 prochlorperazine Allergy Swelling Verified 12/16/17 06:45 lactose AdvReac Diarrhea Verified 12/16/17 06:45 Surgical - Exam Vital Signs Temp Pulse Resp BP Pulse Ox 97.5 F L 85 16 119/64 98 12/16/17 07:14 12/16/17 07:14 12/16/17 07:14 12/16/17 07:14 12/16/17 07:14 - General well developed, no distress - Eyes PERRL - ENT normal pinna - Neck no masses - Respiratory normal expansion - Cardiovascular Rhythm: regular - Abdomen Mild epigastric pain Abdomen: soft Assessment and Plan Assessment: Chronic peritonitis Pancreatic pseudocyst We'll perform cystogastrostomy laparoscopic. Patient aware the risks of conversion to the open procedure, bleeding and recurrent pancreatitis
[2017-12-16] MEDS ORDERED: NEOSTIGMINE 1 MG/ML 10 ML VIAL ONE (07:55)
[2017-12-16] MEDS ORDERED: LIDOCAINE 1% INJ 10MG/ML (20 ML MDV) ONE (07:55)
[2017-12-16] MEDS ORDERED: GLYCOPYRROLATE 0.2 MG/ML 2 ML VIAL ONE (07:55)
[2017-12-16] MEDS ORDERED: ESMOLOL 100 MG/10 ML VIAL ONE (07:55)
[2017-12-16] MEDS ORDERED: fentaNYL (PF) 50 MCG/ML 2 ML AMP ONE (07:55)
[2017-12-16] MEDS ORDERED: ROCURONIUM BROMIDE 10 MG/ML 10 ML VIAL IV ONE (07:55)
[2017-12-16] MEDS ORDERED: LABETALOL 5 MG/ML VIAL MDV ONE (07:55)
[2017-12-16] MEDS ORDERED: MIDAZOLAM 2 MG/2 ML VIAL ONE (07:55)
[2017-12-16] MEDS ORDERED: SUCCINYLCHOLINE CHLORIDE 100 MG/5 ML SYR IV ONE (07:55)
[2017-12-16] MEDS ORDERED: HYDROmorphone (PF) 1 MG/ML ONE (07:55)
[2017-12-16] MEDS ORDERED: PROPOFOL 10 MG/ML 20 ML VIAL IV ONE (07:55)
[2017-12-16] MEDS ORDERED: BUPIVACAIN-EPI 0.5%-1:200,000 30 ML VIAL SQ ONE (08:39)
[2017-12-16] MEDS ORDERED: LACTATED RINGERS 1,000 ML IV ONE ×3 (10:00→11:01)
[2017-12-16] MEDS ORDERED: ACETAMINOPHEN TAB 325 MG TAB PO PRN (11:01)
[2017-12-16] MEDS ORDERED: ONDANSETRON 4 MG/2 ML VIAL IVP PRN (11:01)
[2017-12-16] MEDS ORDERED: NALOXONE 0.4 MG/ML 1 ML VIAL IV PRN (11:01)
[2017-12-16] MEDS ORDERED: METOCLOPRAMIDE 5 MG/ML 2 ML VIAL IVP PRN (11:01)
[2017-12-16] MEDS: HYDROmorphone 0.5 MG/0.5 ML SYRINGE IVP PRN ×6 (11:30→21:00)
[2017-12-16 12:21] LABS: Basophils % (A) 0 %; Eosinophils # (A) 0.1 k/uL (0-0.7); Eosinophils % (A) 0 %; HCT 38.1 % (39.0-53.0); Hypochromasia Moderate; Lymphocytes # (A) 1.2 k/uL (1.0-4.8); Lymphocytes % (A) 6 %; MCH 26.5 pg (25.0-35.0); MCHC 31.5 g/dL (31.0-37.0); Mean Platelet Volume 8.4; Monocytes # (A) 0.3 k/uL (0-1.0); Monocytes % (A) 2 %; Neutrophils # (A) 17.1 k/uL (1.3-7.7); Neutrophils % (A) 91 %; Platelet Count 371 k/uL (150-450); RBC 4.53 m/uL (4.30-5.90); RDW 15.5 % (11.5-15.5); WBC 18.7 k/uL (3.8-10.6)
[2017-12-16] MEDS: KETOROLAC 30 MG/ML 1 ML VIAL IVP SCH ×2 (15:15→20:01)
--- NOTE | 2017-12-16 16:45 | P.PN ---
Subjective Progress Note Date: 12/16/17 Principal diagnosis: Chronic pancreatitis with pancreatic pseudocyst, status post laparoscopic cystogastrostomy and lysis of adhesions. Open laparotomy with partial gastrectomy. This is a very pleasant 42-year-old gentleman who follows with Dr. Bandar Camacho as his primary care physician. He has a history of chronic pancreatitis with pancreatic pseudocyst and previous episode of necrotizing pancreatitis. Previous cholecystectomy. He has a history of bipolar disorder, IV drug abuse including crack cocaine and heroin, hepatitis C treated with interferon 6 years ago, seizure disorder. He was admitted here today for an elective surgery with Dr. Olivera regarding the pancreatic pseudocyst. He had subsequently undergone a laparoscopic cyst gastrostomy and lysis of adhesions. Subsequent open laparotomy with partial gastrectomy. Postoperative day #0. The patient is seen today in consultation on the surgical floor. He is currently awake and alert. His pain is fairly well controlled. He denies any significant shortness of breath, cough or congestion. He is educated regarding the incentive spirometer at the importance of cough and deep breathing exercises. He is currently afebrile. Maintaining O2 saturations in the mid 90s on 2 L/m per nasal cannula. Hemodynamically stable. White count 18.7. Hemoglobin 12.0. He is currently receiving lactated Ringer's at 150 ML' s per hour. He's been initiated on Protonix for GI prophylaxis. Lovenox for DVT prophylaxis. He had received 2 g of Kefzol. Objective - Vital Signs Vital signs: Vital Signs Temp 97.7 F 12/16/17 12:00 Pulse 110 H 12/16/17 14:15 Resp 16 12/16/17 12:00 BP 116/75 12/16/17 14:15 Pulse Ox 94 L 12/16/17 12:00 Intake & Output 12/15/17 12/16/17 12/16/17 18:59 06:59 18:59 Intake Total 1500 Output Total 200 Balance 1300 Weight 99.79 kg Intake: IV 1500 Output: Estimated Blood Loss 200 - Exam GENERAL EXAM: Alert, fairly comfortable in no apparent distress. HEAD: Normocephalic. EYES: Normal reaction of pupils, equal size. NOSE: Clear with pink turbinates. THROAT: No erythema or exudates. NECK: No masses, no JVD. CHEST: No chest wall deformity. LUNGS: Equal air entry with no crackles, wheeze, rhonchi or dullness. CVS: S1 and S2 normal with no audible murmur, regular rhythm. ABDOMEN: Abdominal dressings are dry and intact. ERICA drain in place. Laparoscopic punctures and midline laparotomy SPINE: No scoliosis or deformity SKIN: No rashes CENTRAL NERVOUS SYSTEM: No focal deficits, tone is normal in all 4 extremities. EXTREMITIES: There is no peripheral edema. No clubbing, no cyanosis. Peripheral pulses are intact. - Labs CBC & Chem 7: 12/16/17 12:05 Labs: Abnormal Lab Results - Last 24 Hours (Table) 12/16/17 Range/Units 12:05 WBC 18.7 H (3.8-10.6) k/uL Hgb 12.0 L (13.0-17.5) gm/dL Hct 38.1 L (39.0-53.0) % Neutrophils # 17.1 H (1.3-7.7) k/uL Assessment and Plan Assessment: Pression: #1 Chronic pancreatitis with pancreatic pseudocyst. Status post laparoscopic cyst gastrostomy with lysis of adhesions and subsequent laparotomy with partial gastrectomy. Postoperative day #0. #2 History of acute hypoxic respiratory failure secondary to right-sided pleural effusion. #3 History of cholelithiasis status post cholecystectomy. #4 History of hepatitis C viral infection secondary to IV drug use. #5 History of IV drug use. #6 History of major depression. Plan: The patient was seen and evaluated by Dr. Washington. He is currently stable from the pulmonary standpoint. Initiate incentive spirometer and encourage increased cough and deep breathing exercises. Pain management. Lovenox for DVT prophylaxis. Protonix for GI prophylaxis. Increase his activity as tolerated. We will continue to follow make further recommendations based on his clinical status. I, the cosigning physician, performed a history & physical examination of the patient. Lungs sounds are clear. Maintaining good O2 saturations in the 90s on 2 L/m per nasal cannula. I discussed the assessment and plan of care with my nurse practitioner, Carmen Caldera. I attest to the above consultation as dictated by her. Time with Patient: Greater than 30
[2017-12-16 19:48] LABS: Hepatitis B Core IgM Non-Reactive (Non-Reactive); Hepatitis C IgG Antibody Reactive (Non-Reactive)
[2017-12-16] MEDS: lamoTRIgine 100 MG TAB PO SCH (21:51)
[2017-12-17] MEDS: KETOROLAC 30 MG/ML 1 ML VIAL IVP SCH ×4 (01:11→18:21)
[2017-12-17] MEDS: HYDROmorphone 0.5 MG/0.5 ML SYRINGE IVP PRN ×2 (03:03→05:58)
[2017-12-17 07:53] LABS: Basophils % (A) 0 %; Eosinophils # (A) 0.1 k/uL (0-0.7); Eosinophils % (A) 1 %; HCT 29.1 % (39.0-53.0); Hypochromasia Slight; Lymphocytes # (A) 1.9 k/uL (1.0-4.8); Lymphocytes % (A) 19 %; MCH 25.6 pg (25.0-35.0); MCV 82.8 fL (80.0-100.0); Mean Platelet Volume 7.9; Monocytes # (A) 0.6 k/uL (0-1.0); Monocytes % (A) 6 %; Neutrophils # (A) 7.2 k/uL (1.3-7.7); Neutrophils % (A) 72 %; Platelet Count 289 k/uL (150-450); RBC 3.52 m/uL (4.30-5.90); RDW 15.4 % (11.5-15.5); WBC 9.9 k/uL (3.8-10.6)
[2017-12-17 08:06] LABS: ALT 34 U/L (21-72); AST 54 U/L (17-59); Albumin 2.6 g/dL (3.5-5.0); Alkaline Phosphatase 206 U/L (38-126); Anion Gap 5 mmol/L; Blood Urea Nitrogen 13 mg/dL (9-20); Calcium 8.3 mg/dL (8.4-10.2); Carbon Dioxide 27 mmol/L (22-30); Chloride 107 mmol/L (98-107); Glucose 106 mg/dL (74-99); Potassium 3.5 mmol/L (3.5-5.1); Sodium 139 mmol/L (137-145); Total Bilirubin 0.5 mg/dL (0.2-1.3); Total Protein 5.2 g/dL (6.3-8.2)
--- NOTE | 2017-12-17 09:22 | P.PN ---
Subjective Progress Note Date: 12/17/17 Seen this morning resting in bed she reports the patient is taking IV pain medication for pain relief. Currently has an abdominal binder in place with a ERICA drain. Has remained afebrile nasal cannula on 2 L the white counts THIS morning 9.9 being followed by pulmonary service. Patient does have history of chronic bronchitis with a pancreatic pseudocyst and has had numerous episodes of necrotizing pancreatitis. Had a previous cholecystectomy done. Postop December 16 open laparotomy and partial gastrectomy lysis of adhesions Objective - Vital Signs Vital signs: Vital Signs Temp 98.4 F 12/17/17 00:43 Pulse 81 12/17/17 00:43 Resp 20 12/17/17 00:43 BP 91/55 12/17/17 00:43 Pulse Ox 94 L 12/16/17 12:00 Intake & Output 12/16/17 12/17/17 12/17/17 18:59 06:59 18:59 Intake Total 1500 1500 Output Total 200 585 Balance 1300 915 Weight 99.79 kg Intake: IV 1500 Intake, IV Titration 1500 Amount Lactated Ringers 1,000 ml 1500 @ 150 mls/hr IV .[id number] ONE Rx#:[id number] Output: Drainage 0 60 Abdomen 0 60 Urine 525 Estimated Blood Loss 200 - Exam GENERAL APPEARANCE: Awake resting in bed patient is alert, oriented, in no acute distress. VITAL SIGNS: Reviewed HEENT: Head is normocephalic and atraumatic. Pupils are equal and reactive. The nares are patent. Oropharynx is clear without lesions. NECK: Supple without lymphadenopathy. Traches midline. HEART: S1, S2. Regular rate and rhythm. No murmur noted LUNGS: No crackles or wheezes are heard. Diminished at the bases otherwise adequate air movement ABDOMEN: Soft, surgical tenderness appropriate, nondistended with few hypoactive bowel sounds. No peritoneal signs. No palpable organomegaly or masses. Abdominal binder in place ERICA drain in place states not passing gas no reports of nausea vomiting currently nothing by mouth EXTREMITIES: Normal skin color and turgor. No cyanosis, rash, ulceration, clubbing or edema. Radial pedal pulses are 2/4 bilaterally. NEUROLOGICAL: No focal deficits. Strength and sensation are grossly intact. - Labs CBC & Chem 7: 12/17/17 07:19 12/17/17 07:19 Labs: Abnormal Lab Results - Last 24 Hours (Table) 12/16/17 12/16/17 12/17/17 Range/Units 12:05 12:05 07:19 WBC 18.7 H (3.8-10.6) k/uL RBC 3.52 L (4.30-5.90) m/uL Hgb 12.0 L 9.0 L D (13.0-17.5) gm/dL Hct 38.1 L 29.1 L (39.0-53.0) % Neutrophils # 17.1 H (1.3-7.7) k/uL Glucose (74-99) mg/dL Calcium (8.4-10.2) mg/dL Alkaline Phosphatase (38-126) U/L Total Protein (6.3-8.2) g/dL Albumin (3.5-5.0) g/dL Hep C IgG Ab Reactive H (Non-Reactive) 12/17/17 Range/Units 07:19 WBC (3.8-10.6) k/uL RBC (4.30-5.90) m/uL Hgb (13.0-17.5) gm/dL Hct (39.0-53.0) % Neutrophils # (1.3-7.7) k/uL Glucose 106 H (74-99) mg/dL Calcium 8.3 L (8.4-10.2) mg/dL Alkaline Phosphatase 206 H (38-126) U/L Total Protein 5.2 L (6.3-8.2) g/dL Albumin 2.6 L (3.5-5.0) g/dL Hep C IgG Ab (Non-Reactive) Assessment and Plan Assessment: Impression Postop December 16 laparoscopic laparotomy with partial gastrectomy Chronic hepatitis with episodes of reoccurring pancreatic pseudocyst History of hepatitis C with chronic viral infection History of IV drug abuse Depressive disorder with bipolar History of prior acute hypoxic respiratory failure due to a right-sided pleural effusion History of a cholelithiasis with cholecystectomy Chronic pancreatitis Plan Continue recommendations by pulmonary Encourage use of incentive spirometer Keep nothing by mouth IV fluid hydration Pain control Ambulation DVT and GI prophylaxis Continue postop surgical care The above impression and plan of care have been discussed and directed by signing physician. Ana Meredith nurse practitioner acting as scribe for signing physician.
[2017-12-17] MEDS: HYDROcodone/APAP 5-325MG 1 EACH TAB PO PRN ×3 (09:31→21:12)
[2017-12-17] MEDS: LACTATED RINGERS 1,000 ML IV SCH (09:36)
[2017-12-17] MEDS: PIPERACILLIN-TAZOBACTAM 3.375 GM in DEXTROSE/WATER 1 50ML.BAG IVPB SCH ×2 (11:36→18:20)
[2017-12-17] MEDS: ENOXAPARIN 40 MG/0.4 ML SYRINGE SQ SCH (11:37)
[2017-12-17] MEDS: lamoTRIgine 100 MG TAB PO SCH ×2 (11:37→21:12)
[2017-12-17] MEDS: PANTOPRAZOLE 40 MG/10 ML VIAL IV SCH (11:37)
[2017-12-17 13:19] LABS: Hepatitis BE Antigen NEG (Negative)
[2017-12-17 13:25] LABS: Hepatitis BE Antibody NEG (Negative)
[2017-12-17 15:04] LABS: Hepatits C Virus RNA Not detected (Not detected); Hepatits C Virus RNA, Quant <12 IU/mL (<12); LOG HCV IU/mL <1.08 (<1.08)
--- NOTE | 2017-12-17 15:17 | P.PN ---
Subjective Progress Note Date: 12/17/17 Principal diagnosis: Chronic pancreatitis with pancreatic pseudocyst, status post laparoscopic cystogastrostomy and lysis of adhesions. Open laparotomy with partial gastrectomy. This is a very pleasant 42-year-old gentleman who follows with Dr. Bandar Camacho as his primary care physician. He has a history of chronic pancreatitis with pancreatic pseudocyst and previous episode of necrotizing pancreatitis. Previous cholecystectomy. He has a history of bipolar disorder, IV drug abuse including crack cocaine and heroin, hepatitis C treated with interferon 6 years ago, seizure disorder. He was admitted here today for an elective surgery with Dr. Olivera regarding the pancreatic pseudocyst. He had subsequently undergone a laparoscopic cyst gastrostomy and lysis of adhesions. Subsequent open laparotomy with partial gastrectomy. Postoperative day #0. The patient is seen today in consultation on the surgical floor. He is currently awake and alert. His pain is fairly well controlled. He denies any significant shortness of breath, cough or congestion. He is educated regarding the incentive spirometer at the importance of cough and deep breathing exercises. He is currently afebrile. Maintaining O2 saturations in the mid 90s on 2 L/m per nasal cannula. Hemodynamically stable. White count 18.7. Hemoglobin 12.0. He is currently receiving lactated Ringer's at 150 ML' s per hour. He's been initiated on Protonix for GI prophylaxis. Lovenox for DVT prophylaxis. He had received 2 g of Kefzol. The patient is seen again today 12/17/2017 in follow-up on the surgical floor. He is currently awake and alert in no acute distress. His pain is well managed. He denies any worsening shortness of breath, cough or congestion. He is working well with the incentive spirometer. He is currently on Zosyn. White count 9.9. Hemoglobin 9.0. Creatinine 0.85. Hepatitis C positive. Abdominal dressings are dry and intact. ERICA drain remains in place. Objective - Vital Signs Vital signs: Vital Signs Temp 97.8 F 12/17/17 14:14 Pulse 90 12/17/17 14:14 Resp 16 12/17/17 14:14 BP 94/58 12/17/17 14:14 Pulse Ox 95 12/17/17 14:14 Intake & Output 12/16/17 12/17/17 12/17/17 18:59 06:59 18:59 Intake Total 1500 1500 Output Total 200 585 Balance 1300 915 Weight 99.79 kg Intake: IV 1500 Intake, IV Titration 1500 Amount Lactated Ringers 1,000 ml 1500 @ 150 mls/hr IV .[id number] [facility] Rx#:[id number] Output: Drainage 0 60 Abdomen 0 60 Urine 525 Estimated Blood Loss 200 - Exam GENERAL EXAM: Alert, fairly comfortable in no apparent distress. HEAD: Normocephalic. EYES: Normal reaction of pupils, equal size. NOSE: Clear with pink turbinates. THROAT: No erythema or exudates. NECK: No masses, no JVD. CHEST: No chest wall deformity. LUNGS: Equal air entry with no crackles, wheeze, rhonchi or dullness. CVS: S1 and S2 normal with no audible murmur, regular rhythm. ABDOMEN: Abdominal dressings are dry and intact. ERICA drain in place. Laparoscopic punctures and midline laparotomy SPINE: No scoliosis or deformity SKIN: No rashes CENTRAL NERVOUS SYSTEM: No focal deficits, tone is normal in all 4 extremities. EXTREMITIES: There is no peripheral edema. No clubbing, no cyanosis. Peripheral pulses are intact. - Labs CBC & Chem 7: 12/17/17 07:19 12/17/17 07:19 Labs: Abnormal Lab Results - Last 24 Hours (Table) 12/16/17 12/17/17 12/17/17 Range/Units 12:05 07:19 07:19 RBC 3.52 L (4.30-5.90) m/uL Hgb 9.0 L D (13.0-17.5) gm/dL Hct 29.1 L (39.0-53.0) % Glucose 106 H (74-99) mg/dL Calcium 8.3 L (8.4-10.2) mg/dL Alkaline Phosphatase 206 H (38-126) U/L Total Protein 5.2 L (6.3-8.2) g/dL Albumin 2.6 L (3.5-5.0) g/dL Hep C IgG Ab Reactive H (Non-Reactive) Assessment and Plan Assessment: Pression: #1 Chronic pancreatitis with pancreatic pseudocyst. Status post laparoscopic cyst gastrostomy with lysis of adhesions and subsequent laparotomy with partial gastrectomy. Postoperative day #1. #2 History of acute hypoxic respiratory failure secondary to right-sided pleural effusion. #3 History of cholelithiasis status post cholecystectomy. #4 History of hepatitis C viral infection secondary to IV drug use. #5 History of IV drug use. #6 History of major depression. Plan: The patient was seen and evaluated by Dr. Washington. He is currently stable from the pulmonary standpoint. Continue incentive spirometer and encourage increased cough and deep breathing exercises. Pain management. Lovenox for DVT prophylaxis. Protonix for GI prophylaxis. Increase his activity as tolerated. We will all of the patient on as-needed basis. I, the cosigning physician, performed a history & physical examination of the patient. Lungs sounds are clear. Maintaining good O2 saturations in the 90s on 2 L/m per nasal cannula. I discussed the assessment and plan of care with my nurse practitioner, Carmen Caldera. I attest to the above consultation as dictated by her.
--- NOTE | 2017-12-17 18:02 | CONS ---
CONSULTATION CHIEF COMPLAINT: 42-year-old white male status post pancreatic pseudocyst removal by surgery. He is complaining of abdominal pain. He has a wide open incision. He was placed on prophylactic antibiotics. Home medications have been reordered: Lamictal, Zyprexa and mirtazapine and omeprazole. Surgical consultations pending. His systems review negative except for mentioned above. 14-point review of systems negative. Vital signs stable. PHYSICAL EXAM: Vital signs stable. Afebrile. CARDIOVASCULAR: S1, S2. LUNGS: Clear. GI soft. Incision has bandage over it. EXTREMITIES: No cyanosis, clubbing, edema. Psych: Fair mood and affect. NEUROLOGIC: Alert and orient x3. ASSESSMENT: Status post pancreatic pseudocyst removal, bipolar disorder, history of chronic pancreatitis and history of possible bipolar. Continue with home medications. Possible discharge home when cleared by surgery. Follow electrolytes. MMODL / IJN: [id number] /
[2017-12-17] MEDS ORDERED: NON-FORMULARY DRUG (Omeprazole Magnesium [Prilosec Otc] 20 MG) PO SCH (21:00)
[2017-12-17] MEDS: OLANZapine 5 MG TAB PO SCH (21:12)
[2017-12-18] MEDS: PIPERACILLIN-TAZOBACTAM 3.375 GM in DEXTROSE/WATER 1 50ML.BAG IVPB SCH ×3 (00:15→16:00)
[2017-12-18] MEDS: KETOROLAC 30 MG/ML 1 ML VIAL IVP SCH ×2 (00:16→08:11)
[2017-12-18] MEDS: HYDROcodone/APAP 5-325MG 1 EACH TAB PO PRN ×4 (04:04→21:56)
--- NOTE | 2017-12-18 07:00 | PN ---
PROGRESS NOTE He is improving from a clinical standpoint at this time. Wants his diet advanced. I told him to discuss the case with Dr. Hicks. Vital signs appear to be stable. He is on lactated Ringer's. He is on his home Zyprexa, he is on Protonix. He is on IV Zosyn. Temp is 97-98, pulse is 90, respiratory 16 to 18, blood pressure is 94 to 120s over 70s, 94% on 2 L. Pulse is 79. Cardiovascular S1, S2. He has hepatitis C positive. Hemoglobin is 9. ASSESSMENT: 1. Chronic pancreatitis status post pancreatic pseudocyst removal. 2. Status post cyst gastrostomy. 3. Hepatitis C. 4. History of IV drug use. 5. Bipolar depression. 6. Right-sided pleural effusion. Possibly discharge home soon pending infection clears up. Otherwise he is pretty stable at this time. MMODL / IJN: [id number] /
[2017-12-18 07:12] LABS: Basophils % (A) 0 %; Eosinophils # (A) 0.1 k/uL (0-0.7); Eosinophils % (A) 1 %; HCT 26.3 % (39.0-53.0); HGB 8.4 gm/dL (13.0-17.5); Hypochromasia Slight; Lymphocytes # (A) 1.1 k/uL (1.0-4.8); Lymphocytes % (A) 13 %; MCH 26.1 pg (25.0-35.0); MCHC 31.8 g/dL (31.0-37.0); MCV 82.3 fL (80.0-100.0); Mean Platelet Volume 8.3; Monocytes # (A) 0.5 k/uL (0-1.0); Monocytes % (A) 6 %; Neutrophils # (A) 6.6 k/uL (1.3-7.7); Neutrophils % (A) 79 %; Platelet Count 234 k/uL (150-450); RDW 15.7 % (11.5-15.5); WBC 8.3 k/uL (3.8-10.6)
[2017-12-18 07:29] LABS: ALT 33 U/L (21-72); AST 50 U/L (17-59); Albumin 2.5 g/dL (3.5-5.0); Alkaline Phosphatase 209 U/L (38-126); Anion Gap 5 mmol/L; Blood Urea Nitrogen 11 mg/dL (9-20); Calcium 8.2 mg/dL (8.4-10.2); Carbon Dioxide 27 mmol/L (22-30); Chloride 109 mmol/L (98-107); Glucose 90 mg/dL (74-99); Potassium 3.4 mmol/L (3.5-5.1); Sodium 141 mmol/L (137-145); Total Protein 5.1 g/dL (6.3-8.2)
[2017-12-18] MEDS: PANTOPRAZOLE 40 MG/10 ML VIAL IV SCH (08:10)
[2017-12-18] MEDS: lamoTRIgine 100 MG TAB PO SCH ×2 (08:10→20:54)
[2017-12-18] MEDS: ENOXAPARIN 40 MG/0.4 ML SYRINGE SQ SCH (08:11)
--- NOTE | 2017-12-18 13:04 | P.PN ---
Subjective Progress Note Date: 12/18/17 Patient's pain is unchanged from yesterday. He tolerating ice chips. "I want something more to eat.". No fevers or chills noted. Objective - Vital Signs Vital signs: Vital Signs Temp 98.3 F 12/18/17 07:00 Pulse 96 12/18/17 07:00 Resp 17 12/18/17 07:00 BP 102/66 12/18/17 07:00 Pulse Ox 95 12/18/17 07:00 Intake & Output 12/17/17 12/18/17 12/18/17 18:59 06:59 18:59 Intake Total 1320 Output Total 20 5 Balance -20 1315 Intake: Intake, IV Titration 1300 Amount Lactated Ringers 1,000 ml 1200 @ 75 mls/hr IV .[id number] [facility] Rx#:[id number] Piperacillin-Tazobactam 3 100 .375 gm In Dextrose/Water 1 50ml.bag @ 12.5 mls/hr IVPB Q8HR [facility] Rx#: [id number] Oral 20 Output: Drainage 20 5 Abdomen 20 5 Other: Voiding Method Toilet # Voids 3 # Bowel Movements 1 - Exam GENERAL: Well developed and in no acute distress. Pleasant. HEENT: No sclera icterus. Extraocular movements grossly intact. Moist buccal mucosa. Head is atraumatic, normocephalic. Hears conversational speech. No nasal drainage. NECK: Supple without lymphadenopathy. No JV distention. CHEST: Non-labored respirations and equal bilateral excursions. CARDIOVASCULAR: Regular rate and rhythm. Palpable 2+ radial pulses. ABDOMEN: Abdominal binder intact. Dressing clean dry and intact. MUSCULOSKELETAL: No clubbing, cyanosis or edema. NEUROLOGIC: No focal or lateralizing signs. PSYCH: Appropriate affect. Alert and oriented to person, place and time. SKIN: Good skin turgor. Well perfused. - Labs CBC & Chem 7: 12/18/17 06:43 12/18/17 06:43 Labs: Abnormal Lab Results - Last 24 Hours (Table) 12/18/17 12/18/17 Range/Units 06:43 06:43 RBC 3.20 L (4.30-5.90) m/uL Hgb 8.4 L (13.0-17.5) gm/dL Hct 26.3 L (39.0-53.0) % RDW 15.7 H (11.5-15.5) % Potassium 3.4 L (3.5-5.1) mmol/L Chloride 109 H (98-107) mmol/L Calcium 8.2 L (8.4-10.2) mg/dL Alkaline Phosphatase 209 H (38-126) U/L Total Protein 5.1 L (6.3-8.2) g/dL Albumin 2.5 L (3.5-5.0) g/dL Assessment and Plan (1) S/P gastrointestinal surgery Current Visit: Yes Status: Acute Code(s): Z98.890 - OTHER SPECIFIED POSTPROCEDURAL STATES SNOMED Code(s): 640149686 (2) Pancreatic pseudocyst Current Visit: No Status: Acute Code(s): K86.3 - PSEUDOCYST OF PANCREAS SNOMED Code(s): 466872693 Plan: 1. Patient will remain on ice chips and popsicles in the interim. 2. Per discussion with the surgeon, he is pending an upper GI study for Wednesday.
[2017-12-18] MEDS: LACTATED RINGERS 1,000 ML IV SCH ×2 (14:03→14:04)
[2017-12-18] MEDS: OLANZapine 5 MG TAB PO SCH (20:54)
[2017-12-19] MEDS: PIPERACILLIN-TAZOBACTAM 3.375 GM in DEXTROSE/WATER 1 50ML.BAG IVPB SCH ×4 (00:04→23:57)
[2017-12-19] MEDS: LACTATED RINGERS 1,000 ML IV SCH ×2 (02:47→18:27)
[2017-12-19] MEDS: HYDROcodone/APAP 5-325MG 1 EACH TAB PO PRN ×4 (03:52→21:07)
[2017-12-19] MEDS: ENOXAPARIN 40 MG/0.4 ML SYRINGE SQ SCH (09:10)
[2017-12-19] MEDS: PANTOPRAZOLE 40 MG/10 ML VIAL IV SCH (09:10)
[2017-12-19] MEDS: lamoTRIgine 100 MG TAB PO SCH ×2 (09:10→21:07)
--- NOTE | 2017-12-19 13:19 | P.PN ---
Subjective Progress Note Date: 12/19/17 Patient currently on medications only per operating surgeon. He's pending upper GI tomorrow. He complains of discomfort from his abdominal binder primarily from sweating. Objective - Vital Signs Vital signs: Vital Signs Temp 98.9 F 12/19/17 00:00 Pulse 95 12/19/17 00:00 Resp 16 12/19/17 00:00 BP 102/70 12/19/17 00:00 Pulse Ox 95 12/19/17 00:00 Intake & Output 12/18/17 12/19/17 12/19/17 18:59 06:59 18:59 Intake Total 650 900 Output Total 460 20 Balance 190 880 Intake: Intake, IV Titration 650 900 Amount Lactated Ringers 1,000 ml 600 900 @ 75 mls/hr IV .[id number] [facility] Rx#:[id number] Piperacillin-Tazobactam 3 50 .375 gm In Dextrose/Water 1 50ml.bag @ 12.5 mls/hr IVPB Q8HR [facility] Rx#: [id number] Output: Drainage 60 20 Abdomen 60 20 Urine 400 Other: # Voids 1 # Bowel Movements 1 - Exam GENERAL: Well developed and in no acute distress. Pleasant. HEENT: No sclera icterus. Extraocular movements grossly intact. Moist buccal mucosa. Head is atraumatic, normocephalic. Hears conversational speech. No nasal drainage. NECK: Supple without lymphadenopathy. No JV distention. CHEST: Non-labored respirations and equal bilateral excursions. CARDIOVASCULAR: Regular rate and rhythm. Palpable 2+ radial pulses. ABDOMEN: Abdominal binder intact. Dressing clean dry and intact. MUSCULOSKELETAL: No clubbing, cyanosis or edema. NEUROLOGIC: No focal or lateralizing signs. PSYCH: Appropriate affect. Alert and oriented to person, place and time. SKIN: Good skin turgor. Well perfused. - Labs CBC & Chem 7: 12/18/17 06:43 12/18/17 06:43 Assessment and Plan (1) S/P gastrointestinal surgery Current Visit: Yes Status: Acute Code(s): Z98.890 - OTHER SPECIFIED POSTPROCEDURAL STATES SNOMED Code(s): 984568108 (2) Pancreatic pseudocyst Current Visit: No Status: Acute Code(s): K86.3 - PSEUDOCYST OF PANCREAS SNOMED Code(s): 059858670 Plan: 1. Patient may temporarily undo abdominal binder. 2. Upper GI tomorrow 3. Continue on medications only
[2017-12-20] MEDS: OLANZapine 5 MG TAB PO SCH ×2 (00:34→22:11)
[2017-12-20] MEDS: HYDROcodone/APAP 5-325MG 1 EACH TAB PO PRN ×4 (04:02→21:34)
[2017-12-20] MEDS: LACTATED RINGERS 1,000 ML IV SCH ×2 (05:40→17:34)
[2017-12-20] MEDS: PANTOPRAZOLE 40 MG/10 ML VIAL IV SCH (09:06)
[2017-12-20] MEDS: ENOXAPARIN 40 MG/0.4 ML SYRINGE SQ SCH (09:06)
[2017-12-20] MEDS: lamoTRIgine 100 MG TAB PO SCH ×2 (09:06→21:34)
--- NOTE | 2017-12-20 09:54 | PN ---
PROGRESS NOTE SUBJECTIVE: This is a 42-year-old white male, status post pancreatic pseudocyst surgery. He is breathing better. His vital signs are stable. His abdominal incisional pain still persists. He is going to be started back on clear liquid diet today. CARDIOVASCULAR: S1, S2. LUNGS: Clear. GI: Soft. Psych fair mood and affect. He has incisional tenderness. ASSESSMENT: 1. Status post pancreatic pseudocyst removal. 2. Status post chronic pancreatitis. 3. Status post prior hemopneumothorax. Appears to be improving. Diet will be advanced. Possibly home soon. Home medications for bipolar are stable. MMODL / IJN: [id number] /
[2017-12-20] MEDS: PIPERACILLIN-TAZOBACTAM 3.375 GM in DEXTROSE/WATER 1 50ML.BAG IVPB SCH ×3 (09:57→23:39)
--- NOTE | 2017-12-20 10:56 | P.PN ---
Subjective Progress Note Date: 12/20/17 42-year-old male seen at bedside chief complaint "I'm hungry and wants something to drink" continues to report having surgical discomfort requiring pain medication. No other new events noted. Abdominal incision dressings are dry ERICA drain in place patient states he had a bowel movement urinating no difficulty reports no nausea vomiting No labs Postop December 16 open laparotomy and partial gastrectomy lysis of adhesions Objective - Vital Signs Vital signs: Vital Signs Temp 98.3 F 12/20/17 08:02 Pulse 107 H 12/20/17 08:02 Resp 18 12/20/17 08:02 BP 101/68 12/20/17 08:02 Pulse Ox 96 12/20/17 08:02 Intake & Output 12/19/17 12/20/17 12/20/17 18:59 06:59 18:59 Intake Total 600 Output Total 25 Balance 575 Intake: Intake, IV Titration 600 Amount Lactated Ringers 1,000 ml 600 @ 75 mls/hr IV .[id number] [facility] Rx#:[id number] Output: Drainage 25 Abdomen 25 Other: # Voids 3 2 - Exam GENERAL APPEARANCE: Awake resting in bed patient is alert, in no acute distress. has ambulated in the hallway this morning VITAL SIGNS: Reviewed reviewed HEENT: Head is normocephalic and atraumatic. Pupils are equal and reactive. The nares are patent. Oropharynx is clear without lesions. NECK: Supple without lymphadenopathy. Traches midline. HEART: S1, S2. Regular rate and rhythm. No murmur noted no chest LUNGS: No crackles or wheezes are heard. Clear at 96% on room air ABDOMEN: Soft, surgical tenderness appropriate, nondistended with few hypoactive bowel sounds. No peritoneal signs. No palpable organomegaly or masses. Abdominal binder in place ERICA drain in place surgical dressings dry few hypoactive bowel sounds no nausea no vomiting EXTREMITIES: Normal skin color and turgor. No cyanosis, rash, ulceration, clubbing or edema. Radial pedal pulses are 2/4 bilaterally. NEUROLOGICAL: No focal deficits. Strength and sensation are grossly intact. - Labs CBC & Chem 7: 12/18/17 06:43 12/18/17 06:43 Assessment and Plan Assessment: Impression Postop December 16 laparoscopic laparotomy with partial gastrectomy Chronic hepatitis with episodes of reoccurring pancreatic pseudocyst History of hepatitis C with chronic viral infection History of IV drug abuse Depressive disorder with bipolar History of prior acute hypoxic respiratory failure due to a right-sided pleural effusion History of a cholelithiasis with cholecystectomy Chronic pancreatitis Plan Continue recommendations by pulmonary Encourage use of incentive spirometer Dark clear liquid diet IV fluid hydration Pain control Ambulation DVT and GI prophylaxis Continue postop surgical care The above impression and plan of care have been discussed and directed by signing physician. Ana Meredith nurse practitioner acting as scribe for signing physician.
[2017-12-21] MEDS: LACTATED RINGERS 1,000 ML IV SCH (06:51)
[2017-12-21] MEDS: lamoTRIgine 100 MG TAB PO SCH ×2 (08:04→20:22)
[2017-12-21] MEDS: ENOXAPARIN 40 MG/0.4 ML SYRINGE SQ SCH (08:04)
[2017-12-21] MEDS: PIPERACILLIN-TAZOBACTAM 3.375 GM in DEXTROSE/WATER 1 50ML.BAG IVPB SCH (08:07)
--- NOTE | 2017-12-21 08:17 | P.PN ---
Subjective Progress Note Date: 12/21/17 42-year-old male sitting up in bed. Tolerating clear liquid diet. Pain medication effective pain control. No nausea no vomiting G Dorene and place appears drainage surgical incision dressing dry Postop December 16 open laparotomy and partial gastrectomy lysis of adhesions Objective - Vital Signs Vital signs: Vital Signs Temp 98.2 F 12/21/17 07:25 Pulse 81 12/21/17 07:25 Resp 18 12/21/17 07:25 BP 105/66 12/21/17 07:25 Pulse Ox 94 L 12/21/17 07:25 Intake & Output 12/20/17 12/21/17 12/21/17 18:59 06:59 18:59 Intake Total 762 570 Output Total 20 Balance 742 570 Weight 99.79 kg Intake: Intake, IV Titration 450 Amount Lactated Ringers 1,000 ml 450 @ 75 mls/hr IV .[id number] [facility] Rx#:[id number] Oral 762 120 Output: Drainage 20 Abdomen 20 Other: Voiding Method Toilet # Voids 2 2 - Exam Exam Abdomen surgical dressings dry ERICA drain right lower quadrant serous drainage soft active bowel tones urinating no difficulty tolerating diet no nausea no vomiting - Labs CBC & Chem 7: 12/18/17 06:43 12/18/17 06:43 Assessment and Plan Assessment: Impression Postop December 16 laparoscopic laparotomy with partial gastrectomy Chronic hepatitis with episodes of reoccurring pancreatic pseudocyst History of hepatitis C with chronic viral infection History of IV drug abuse Depressive disorder with bipolar History of prior acute hypoxic respiratory failure due to a right-sided pleural effusion History of a cholelithiasis with cholecystectomy Chronic pancreatitis Plan Continue recommendations by pulmonary Encourage use of incentive spirometer Advance diet Anticipate discharge in 24 hours Pain control Ambulation DVT and GI prophylaxis Continue postop surgical care The above impression and plan of care have been discussed and directed by signing physician. Ana Meredith nurse practitioner acting as scribe for signing physician.
[2017-12-21] MEDS: PANTOPRAZOLE 40 MG TABLET PO SCH (08:28)
[2017-12-21] MEDS: HYDROcodone/APAP 5-325MG 1 EACH TAB PO PRN ×3 (09:24→20:57)
--- NOTE | 2017-12-21 09:25 | P.OP ---
Date of Procedure: 12/16/17 Preoperative Diagnosis: chronic pancreatitis Pancreatic pseudocyst Postoperative Diagnosis: chronic pancreatitis Pancreatic pseudocyst Procedure(s) Performed: laparoscopic lysis of adhesions. Partial omentectomy Cyst gastrostomy Anesthesia: MUNA Surgeon: Donny Hicks Estimated Blood Loss (ml): 100 Pathology: other (stomach) Condition: stable Description of Procedure: the patient was placed on the operating room table in the supine position. He received general anesthesia. He was then placed in the dorsal lithotomy position. His abdomen was prepped and draped in the usual sterile fashion. A 5 mm optical trocar was placed into the perineal cavity in the left periumbilical area under bdomen was insufflated. Next the laparoscope was placed into the pelvic cavity. And then 5 mm trochars were placed in the right epigastric, right lateral, left lateral and the left epigastric position. The left lateral lobe of the liver was enlarged. The left lateral lobe of liver was retracted. There were adhesions between the stomach and omentum. These were lysed using the Harmonic scissors. [id number] minutes of operative time was used to lyse the adhesions. A small portion of the omentum was transected.ons. The greater curvature of stomach was found. The greater curvature of the stomach was dissected using the Harmonic scissors. At this point a enterotomy was made into the stomach. The Harmonic scissors were used to make the enterotomy. This was made on the anterior gastric wall all near the greater curvature of stomach. Several attempts to find the pseudocyst was made with an aspirator needle. This was impossible. At this point the procedure was converted to the open procedure. A Familia retractor was placed in the wound after the abdomen was opened in the midline. The trochars withdrawn. Babcocks were placed on the gastric enterotomy opening. Using an 18-gauge needle the pseudocyst was found. And then using the Harmonic scissors a cystogastrostomy was performed between the pancreatic pseudocyst in the posterior gastric wall. There was no bleeding seen. The gastrotomy was then closed using the TA stapler. The staple line was then oversewn with 3-0 Prolene suture. The abdomen was irrigated. A ERICA drain was placed next to the stomach. Rashid brought out through a separate stab incisionb incision. The fascia was closed with looped #1 PDS suture. The skin was closed. The patient was sent to the recovery room in stable condition.
[2017-12-21] MEDS ORDERED: SODIUM FERRIC GLUCONAT-SUCROSE 125 MG in SODIUM CHLORIDE 0.9% 100 ML IVPB SCH (16:00)
--- NOTE | 2017-12-21 17:29 | PN ---
PROGRESS NOTE SUBJECTIVE: A 42-year-old white male with pancreatic pseudocyst, status post surgery. The patient is improving. Diet will be advanced to soft diet at this time. VITAL SIGNS: Stable, afebrile. CARDIOVASCULAR: S1, S2. LUNGS: Clear. GI: Soft. HEMATOLOGY: Negative Homans'. PSYCH: Fair mood and affect. ASSESSMENT: 1. Status post pancreatic pseudocyst removal. 2. Bipolar disorder. 3. Pleural effusions. 4. Acute on chronic anemia. Hemoglobin is down to 8.4. Possibly give him an iron infusion. Monitor for any signs of bleeding. Give him a ferritin infusion today. MMODL / IJN: [id number] /
[2017-12-21] MEDS: OLANZapine 5 MG TAB PO SCH (20:22)
[2017-12-22] MEDS: HYDROcodone/APAP 5-325MG 1 EACH TAB PO PRN ×2 (02:57→09:17)
[2017-12-22 07:47] VITALS: BP 109/70; PULSE 86; RESP 17; TEMP 98.3
[2017-12-22] MEDS: ENOXAPARIN 40 MG/0.4 ML SYRINGE SQ SCH (07:48)
[2017-12-22] MEDS: PANTOPRAZOLE 40 MG TABLET PO SCH (07:48)
[2017-12-22] MEDS: lamoTRIgine 100 MG TAB PO SCH (07:49)
[2017-12-22 09:06] LABS: ALT 25 U/L (21-72); AST 35 U/L (17-59); Albumin 2.8 g/dL (3.5-5.0); Alkaline Phosphatase 239 U/L (38-126); Anion Gap 11 mmol/L; Blood Urea Nitrogen <2 mg/dL (9-20); Calcium 8.3 mg/dL (8.4-10.2); Carbon Dioxide 24 mmol/L (22-30); Chloride 106 mmol/L (98-107); Glucose 99 mg/dL (74-99); Potassium 3.2 mmol/L (3.5-5.1); Sodium 141 mmol/L (137-145); Total Bilirubin 0.7 mg/dL (0.2-1.3); Total Protein 5.6 g/dL (6.3-8.2)
[2017-12-22 09:37] LABS: Basophils % (A) 0 %; Eosinophils # (A) 0.2 k/uL (0-0.7); Eosinophils % (A) 2 %; HCT 29.5 % (39.0-53.0); HGB 8.8 gm/dL (13.0-17.5); Hypochromasia Marked; Lymphocytes # (A) 1.6 k/uL (1.0-4.8); Lymphocytes % (A) 21 %; MCHC 29.8 g/dL (31.0-37.0); MCV 87.1 fL (80.0-100.0); Mean Platelet Volume 10.7; Monocytes # (A) 0.6 k/uL (0-1.0); Monocytes % (A) 8 %; Neutrophils # (A) 5.1 k/uL (1.3-7.7); Neutrophils % (A) 67 %; Platelet Count 162 k/uL (150-450); RBC 3.39 m/uL (4.30-5.90); RDW 15.9 % (11.5-15.5); WBC 7.7 k/uL (3.8-10.6)
[2017-12-22] MEDS: POTASSIUM CHLORIDE ER 20 MEQ TAB.ER PO SCH ×2 (10:18→12:55)
--- NOTE | 2017-12-22 10:28 | P.DS ---
<Ana Meredith - Last Filed: 12/22/17 10:17> Providers Date of admission: 12/16/17 13:51 Expected date of discharge: 12/22/17 Attending physician: Donny Hicks Consults: 12/16/17 11:01 Consult Physician Routine Consulting Provider: Mckay Washington Consult Reason/Comments: Medical management Do you want consulting provider notified?: Yes Consult Physician Routine Consulting Provider: Bandar Camacho Consult Reason/Comments: Medical management Do you want consulting provider notified?: Yes Primary care physician: Stated None Hospital Course: 42-year-old male underwent an elective laparoscopic lysis of adhesions. Partial omentectomy, cystogastrostomy for chronic pancreatitis. Patient has history of chronic pancreatitis with pancreatic pseudocyst. Patient has had numerous admissions. Additionally patient had a previous episode of necrotizing pancreatitis. Prior cholecystectomy done. Patient has a history of a bipolar disorder, IV drug abuse including crack cocaine, heroin, hepatitis C treated with interferon 6 years ago, seizure disorder. Patient underwent the elective procedure there were no postop events tolerated it well was able to be discharged on December 22 Impression discharge diagnosis Postop December 16 laparoscopic laparotomy with partial gastrectomy Chronic pancreatitis with episodes of reoccurring pancreatic pseudocyst History of hepatitis C with chronic viral infection History of IV drug abuse in remission Depressive disorder with bipolar History of prior acute hypoxic respiratory failure due to a right-sided pleural effusion History of a cholelithiasis with cholecystectomy Chronic pancreatitis Major depressive disorder Electrolyte imbalance hypokalemia corrected resolved Discharge summary dictated for Dr. gold rock on behalf of The above impression and plan of care have been discussed and directed by signing physician. Ana Meredith nurse practitioner acting as scribe for signing physician. Plan - Discharge Summary Discharge Rx Participant: No New Discharge Prescriptions: New HYDROcodone/APAP 5-325MG [Amigo 5-325] 1 each PO Q6HR PRN #18 tab PRN Reason: Moderate To Severe Pain Continue Mirtazapine [Remeron] 15 mg PO HS lamoTRIgine [LaMICtal] 100 mg PO BID OLANZapine [ZyPREXA] 15 mg PO HS Buprenorphine HCl/Naloxone HCl [Suboxone 8 mg-2 mg Sl Film] 0.5 film SL BID PRN PRN Reason: Pain Omeprazole Magnesium [PriLOSEC OTC] 20 mg PO HS Discharge Medication List Mirtazapine [Remeron] 15 mg PO HS 11/23/16 [History] lamoTRIgine [LaMICtal] 100 mg PO BID 03/13/17 [History] Buprenorphine HCl/Naloxone HCl [Suboxone 8 mg-2 mg Sl Film] 0.5 film SL BID PRN 08/09/17 [History] OLANZapine [ZyPREXA] 15 mg PO HS 08/09/17 [History] Omeprazole Magnesium [PriLOSEC OTC] 20 mg PO HS 11/16/17 [History] HYDROcodone/APAP 5-325MG [Amigo 5-325] 1 each PO Q6HR PRN #18 tab 12/22/17 [Rx] Follow up Appointment(s)/Referral(s): Bandar Camacho MD [STAFF PHYSICIAN] - 1 Week (Please call the office to schedule an appointment.) Donny Hicks MD [STAFF PHYSICIAN] - 12/28/17 1:25 pm Patient Instructions/Handouts: Pancreatitis (DC), [place] Drain Care (DC) , Gastrectomy (DC) Activity/Diet/Wound Care/Special Instructions: No tub bath for six weeks. Shower daily. Do not soak surgical dressings No lifting over 10 pounds for the next 6 weeks. Monitor ERICA drain and record. May use ice packs to surgical site. No driving while taking narcotic for pain. Discharge Disposition: HOME SELF-CARE <Leopoldo Shaffer - Last Filed: 12/22/17 22:10> Hospital Course: As above. Patient doing well. No pain. Tolerating diet. Follow-up with Dr. Royal 1 week.
== END 2017-12-22 13:40 | disposition home or self-care (01) | DRG 421 ==
LOC: OR 06:15 → 3SUR 10:53 → OR 13:51 → 3SUR 12-21 12:04
PROVIDERS: ADMIT Surgery; ATTEND Surgery
PROC: 0DBU4ZZ Excision of Omentum, Percutaneous Endoscopic Approach (ICD-10-PCS; 2017-12-16)
PROC: 0F9G0ZX Drainage of Pancreas, Open Approach, Diagnostic (ICD-10-PCS; principal; 2017-12-16 08:00)
DX: K86.3 Pseudocyst of pancreas (principal); J90 Pleural effusion, not elsewhere classified; K86.1 Other chronic pancreatitis; J44.9 Chronic obstructive pulmonary disease, unspecified; G40.909 Epilepsy, unspecified, not intractable, without status epilepticus; F19.11 Other psychoactive substance abuse, in remission; E87.6 Hypokalemia; D64.9 Anemia, unspecified; F17.210 Nicotine dependence, cigarettes, uncomplicated; B18.2 Chronic viral hepatitis C; K21.9 Gastro-esophageal reflux disease without esophagitis; F32.9 Major depressive disorder, single episode, unspecified; Z90.49 Acquired absence of other specified parts of digestive tract; Z79.899 Other long term (current) drug therapy; Z88.5 Allergy status to narcotic agent; Z88.8 Allergy status to other drugs, medicaments and biological substances; Z82.49 Family history of ischemic heart disease and other diseases of the circulatory system; Z81.8 Family history of other mental and behavioral disorders; Z81.1 Family history of alcohol abuse and dependence; Z53.31 Laparoscopic surgical procedure converted to open procedure
CPT/HCPCS: 80053; 85025; 86704; 86705; 86707; 86803; 87350; 87522; 88305; 88307

== ENCOUNTER 2018-03-28 14:03 | Emergency (ER) | payer MEDICARE ==
[2018-03-28] MEDS ORDERED: PANTOPRAZOLE 40 MG/10 ML VIAL IVP STA (14:41)
[2018-03-28] MEDS ORDERED: ONDANSETRON 4 MG/2 ML VIAL IVP STA (14:41)
[2018-03-28] MEDS ORDERED: MORPHINE SULFATE 4 MG/ML SYRINGE IV STA (14:41)
[2018-03-28] MEDS ORDERED: SODIUM CHLORIDE 0.9% 1,000 ML IV STA (14:41)
--- NOTE | 2018-03-28 14:45 | ED ---
Abdominal Pain HPI - General Chief Complaint: Abdominal Pain Stated Complaint: abdominal pain Time Seen by Provider: 03/28/18 14:43 Source: patient, RN notes reviewed, old records reviewed Mode of arrival: ambulatory Limitations: no limitations - History of Present Illness Initial Comments: This is a 42-year-old male to the ER for evaluation presents today for evaluation regards to abdominal pain. History of chronic pain otitis acute on chronic pancreatitis. Patient states he has nausea vomiting and feels like he has current pancreatitis. Patient is taking medications at home, symptoms have been improving no recent hospital admissions for pancreatitis he does have recent surgery abdominal surgery, no fevers. No diarrhea MD Complaint: abdominal pain -: unknown Location: periumbilical, epigastric Radiation: epigastric, back Migration to: epigastric Severity: severe Severity scale (1-10): 8 Quality: stabbing Consistency: constant Improves With: nothing Associated Symptoms: nausea - Related Data Home Medications Medication Instructions Recorded Confirmed Mirtazapine [Remeron] 15 mg PO HS 11/23/16 03/28/18 lamoTRIgine [LaMICtal] 100 mg PO BID 03/13/17 03/28/18 Omeprazole Magnesium [PriLOSEC OTC] 20 mg PO HS 11/16/17 03/28/18 Buprenorphine HCl/Naloxone HCl 1 tab SL DAILY 03/28/18 03/28/18 [Buprenorphin-Naloxon 8-2 mg Sl] OLANZapine [ZyPREXA] 10 mg PO HS 03/28/18 03/28/18 Allergies Allergy/AdvReac Type Severity Reaction Status Date / Time codeine Allergy Swelling Verified 03/28/18 14:33 furosemide [From Lasix] Allergy Rash/Hives Verified 03/28/18 14:33 haloperidol [From Haldol] Allergy Unknown Verified 03/28/18 14:33 prochlorperazine Allergy Swelling Verified 03/28/18 14:33 lactose AdvReac Diarrhea Verified 03/28/18 14:33 Review of Systems ROS Statement: Those systems with pertinent positive or pertinent negative responses have been documented in the HPI. ROS Other: All systems not noted in ROS Statement are negative. Past Medical History Past Medical History: COPD, Musculoskeletal Disorder, Seizure Disorder Additional Past Medical History / Comment(s): History of seizures-per patient, his last seizure 2011, Hepatitis C, history of IV drug use, history of crack cocaine use, Degenerative disc disease in back, possible arthritis in knees, hips and arms, History of chronic pancreatitis, pancreatic pseudocyst formation History of Any Multi-Drug Resistant Organisms: None Reported Past Surgical History: Appendectomy, Cholecystectomy Additional Past Surgical History / Comment(s): RK eye surgery-1998, drain for pancreatitis, RT LUNG THOROSCOPIC DECOTICATION, partial gastrectomy/removal of pancreatic psuedocyst and lysis of adhesions 12-16-2017 Past Anesthesia/Blood Transfusion Reactions: No Reported Reaction Past Psychological History: Bipolar, Depression Smoking Status: Current every day smoker Past Alcohol Use History: None Reported Past Drug Use History: None Reported - Past Family History Brother(s) Additional Family Medical History / Comment(s): Chronic alcoholism Sister(s) Additional Family Medical History / Comment(s): Chronic alcoholism Daughter(s) Additional Family Medical History / Comment(s): One daughter healthy Son(s) Additional Family Medical History / Comment(s): One son healthy Father History Unknown: Yes Family Medical History: AICD/Pacemaker, Myocardial Infarction ([place]) Additional Family Medical History / Comment(s): Schizophrenia. Per patient, his father at the age of 59 Mother History Unknown: Yes Family Medical History: No Reported History Additional Family Medical History / Comment(s): HPV General Exam Limitations: no limitations General appearance: alert, in no apparent distress Head exam: Present: atraumatic, normocephalic, normal inspection Eye exam: Present: normal appearance, PERRL, EOMI. Absent: scleral icterus, conjunctival injection, periorbital swelling ENT exam: Present: normal exam, mucous membranes moist Neck exam: Present: normal inspection. Absent: tenderness, meningismus, lymphadenopathy Respiratory exam: Present: normal lung sounds bilaterally. Absent: respiratory distress, wheezes, rales, rhonchi, stridor Cardiovascular Exam: Present: regular rate, normal rhythm, normal heart sounds. Absent: systolic murmur, diastolic murmur, rubs, gallop, clicks GI/Abdominal exam: Present: soft, normal bowel sounds. Absent: distended, tenderness, guarding, rebound, rigid Extremities exam: Present: normal inspection, full ROM, normal capillary refill. Absent: tenderness, pedal edema, joint swelling, calf tenderness Back exam: Present: normal inspection Neurological exam: Present: alert, oriented X3, CN II-XII intact Psychiatric exam: Present: normal affect, normal mood Skin exam: Present: warm, dry, intact, normal color. Absent: rash Course Vital Signs 03/28/18 03/28/18 03/28/18 14:07 15:10 16:10 Temperature 97.5 F L Pulse Rate 101 H 93 82 Respiratory 18 18 16 Rate Blood Pressure 129/84 108/78 123/86 O2 Sat by Pulse 97 97 99 Oximetry 03/28/18 03/28/18 03/28/18 16:20 16:30 17:04 Temperature 98.4 F Pulse Rate 75 Respiratory 18 Rate Blood Pressure 123/86 123/86 127/77 O2 Sat by Pulse 98 97 98 Oximetry Medical Decision Making - Medical Decision Making 42 male the ER for evaluation presents today for evaluation regards to abdominal pain, no packet tenderness appreciated bilaterally, patient's pain is improved and can be discharged home - Lab Data Result diagrams: 03/28/18 14:44 03/28/18 14:44 Lab Results 03/28/18 03/28/18 03/28/18 Range/Units 14:44 14:44 14:44 WBC 7.2 (3.8-10.6) k/uL RBC 5.36 (4.30-5.90) m/uL Hgb 13.7 (13.0-17.5) gm/dL Hct 41.6 (39.0-53.0) % MCV 77.7 L (80.0-100.0) fL MCH 25.5 (25.0-35.0) pg MCHC 32.8 (31.0-37.0) g/dL RDW 15.9 H (11.5-15.5) % Plt Count 127 L (150-450) k/uL Neutrophils % 62 % Lymphocytes % 24 % Monocytes % 8 % Eosinophils % 4 % Basophils % 1 % Neutrophils # 4.5 (1.3-7.7) k/uL Lymphocytes # 1.7 (1.0-4.8) k/uL Monocytes # 0.6 (0-1.0) k/uL Eosinophils # 0.3 (0-0.7) k/uL Basophils # 0.1 (0-0.2) k/uL Microcytosis Slight Sodium 142 (137-145) mmol/L Potassium 3.6 (3.5-5.1) mmol/L Chloride 109 H (98-107) mmol/L Carbon Dioxide 23 (22-30) mmol/L Anion Gap 10 mmol/L BUN 14 (9-20) mg/dL Creatinine 0.58 L (0.66-1.25) mg/dL Est GFR (CKD-EPI)AfAm >90 (>60 ml/min/1.73 sqM) Est GFR (CKD-EPI)NonAf >90 (>60 ml/min/1.73 sqM) Glucose 89 (74-99) mg/dL Plasma Lactic Acid [place] (0.7-2.0) mmol/L Calcium 8.9 (8.4-10.2) mg/dL Total Bilirubin 0.2 (0.2-1.3) mg/dL AST 31 (17-59) U/L ALT 33 (21-72) U/L Alkaline Phosphatase 149 H (38-126) U/L Total Creatine Kinase 52 L (55-170) U/L CK-MB (CK-2) 1.9 (0.0-2.4) ng/mL CK-MB (CK-2) Rel Index 3.7 Troponin I <0.012 (0.000-0.034) ng/mL Total Protein 6.7 (6.3-8.2) g/dL Albumin 3.9 (3.5-5.0) g/dL Amylase 85 (30-110) U/L Lipase 145 (23-300) U/L 03/28/18 Range/Units 14:44 WBC (3.8-10.6) k/uL RBC (4.30-5.90) m/uL Hgb (13.0-17.5) gm/dL Hct (39.0-53.0) % MCV (80.0-100.0) fL MCH (25.0-35.0) pg MCHC (31.0-37.0) g/dL RDW (11.5-15.5) % Plt Count (150-450) k/uL Neutrophils % % Lymphocytes % % Monocytes % % Eosinophils % % Basophils % % Neutrophils # (1.3-7.7) k/uL Lymphocytes # (1.0-4.8) k/uL Monocytes # (0-1.0) k/uL Eosinophils # (0-0.7) k/uL Basophils # (0-0.2) k/uL Microcytosis Sodium (137-145) mmol/L Potassium (3.5-5.1) mmol/L Chloride (98-107) mmol/L Carbon Dioxide (22-30) mmol/L Anion Gap mmol/L BUN (9-20) mg/dL Creatinine (0.66-1.25) mg/dL Est GFR (CKD-EPI)AfAm (>60 ml/min/1.73 sqM) Est GFR (CKD-EPI)NonAf (>60 ml/min/1.73 sqM) Glucose (74-99) mg/dL Plasma Lactic Acid [place] 1.3 (0.7-2.0) mmol/L Calcium (8.4-10.2) mg/dL Total Bilirubin (0.2-1.3) mg/dL AST (17-59) U/L ALT (21-72) U/L Alkaline Phosphatase (38-126) U/L Total Creatine Kinase (55-170) U/L CK-MB (CK-2) (0.0-2.4) ng/mL CK-MB (CK-2) Rel Index Troponin I (0.000-0.034) ng/mL Total Protein (6.3-8.2) g/dL Albumin (3.5-5.0) g/dL Amylase (30-110) U/L Lipase (23-300) U/L Disposition Clinical Impression: Abdominal pain Disposition: HOME SELF-CARE Condition: Good Instructions: Abdominal Pain (ED) Is patient prescribed a controlled substance at d/c from ED?: No Referrals: Bandar Camacho MD [Primary Care Provider] - 1-2 days
[2018-03-28 16:06] LABS: ALT 33 U/L (21-72); AST 31 U/L (17-59); Albumin 3.9 g/dL (3.5-5.0); Alkaline Phosphatase 149 U/L (38-126); Amylase 85 U/L (30-110); Anion Gap 10 mmol/L; Blood Urea Nitrogen 14 mg/dL (9-20); Calcium 8.9 mg/dL (8.4-10.2); Carbon Dioxide 23 mmol/L (22-30); Chloride 109 mmol/L (98-107); Glucose 89 mg/dL (74-99); Lipase 145 U/L (23-300); Potassium 3.6 mmol/L (3.5-5.1); Sodium 142 mmol/L (137-145); Total Bilirubin 0.2 mg/dL (0.2-1.3); Total Protein 6.7 g/dL (6.3-8.2)
[2018-03-28 16:22] LABS: Creatine Kinase 52 U/L (55-170)
[2018-03-28 16:32] LABS: Basophils # (A) 0.1 k/uL (0-0.2); Basophils % (A) 1 %; Eosinophils # (A) 0.3 k/uL (0-0.7); Eosinophils % (A) 4 %; HCT 41.6 % (39.0-53.0); HGB 13.7 gm/dL (13.0-17.5); Lymphocytes # (A) 1.7 k/uL (1.0-4.8); Lymphocytes % (A) 24 %; MCH 25.5 pg (25.0-35.0); MCHC 32.8 g/dL (31.0-37.0); MCV 77.7 fL (80.0-100.0); Mean Platelet Volume 10.6; Microcytosis Slight; Monocytes # (A) 0.6 k/uL (0-1.0); Monocytes % (A) 8 %; Neutrophils # (A) 4.5 k/uL (1.3-7.7); Neutrophils % (A) 62 %; Platelet Count 127 k/uL (150-450); RBC 5.36 m/uL (4.30-5.90); RDW 15.9 % (11.5-15.5); WBC 7.2 k/uL (3.8-10.6)
[2018-03-28 16:35] LABS: Creatine Kinase MB 1.9 ng/mL (0.0-2.4); Troponin I <0.012 ng/mL (0.000-0.034)
[2018-03-28 17:05] VITALS: BP 127/77; PULSE 75; RESP 18; TEMP 98.4
== END 2018-03-28 17:04 | disposition home or self-care (01) ==
LOC: EC 14:03
DX: R10.13 Epigastric pain (principal); R10.33 Periumbilical pain; R11.2 Nausea with vomiting, unspecified; M54.9 Dorsalgia, unspecified; K86.1 Other chronic pancreatitis; G40.909 Epilepsy, unspecified, not intractable, without status epilepticus; F31.9 Bipolar disorder, unspecified; F17.200 Nicotine dependence, unspecified, uncomplicated; Z88.5 Allergy status to narcotic agent; Z88.8 Allergy status to other drugs, medicaments and biological substances; Z91.018 Allergy to other foods; Z79.899 Other long term (current) drug therapy; Z90.49 Acquired absence of other specified parts of digestive tract; Z98.890 Other specified postprocedural states
CPT/HCPCS: 36415; 80053; 82150; 82550; 82553; 83605; 83690; 84484; 85025; 99284; 96374; 96375 ×2; 96361; J2270; J2405; C9113

== ENCOUNTER 2018-04-07 17:03 | Inpatient (IN) | payer MEDICARE ==
[2018-04-07] MEDS ORDERED: SODIUM CHLORIDE 0.9% 500 ML 500 ML IV STA (18:44)
[2018-04-07] MEDS ORDERED: HYDROmorphone 1 MG/ML 1 ML SYRINGE IVP STA (18:44)
[2018-04-07] MEDS ORDERED: ONDANSETRON 4 MG/2 ML VIAL IVP STA (18:44)
--- NOTE | 2018-04-07 19:07 | ED ---
General Adult HPI - General Chief complaint: Abdominal Pain Stated complaint: ABDOMINAL PAIN Time Seen by Provider: 04/07/18 18:00 Source: patient, RN notes reviewed Mode of arrival: ambulatory Limitations: no limitations - History of Present Illness Initial comments: This is a 42-year-old male presents emergency Department with a past medical history significant for chronic pancreatitis. Patient presents emergency department today with left-sided pain. Patient states pain started 3:00 suddenly and has been ongoing ever since. Patient states it's more in the upper left side of his abdomen. Patient denies any nausea vomiting. Patient denies diarrhea. Patient denies any fever chills. Patient denies chest pain difficulty breathing or shortness of breath per patient denies any recent injury or trauma. Patient states this is not typical of his chronic pancreatitis. - Related Data Home Medications Medication Instructions Recorded Confirmed Mirtazapine [Remeron] 15 mg PO HS 11/23/16 04/07/18 lamoTRIgine [LaMICtal] 100 mg PO BID 03/13/17 04/07/18 Omeprazole Magnesium [PriLOSEC OTC] 20 mg PO HS 11/16/17 04/07/18 OLANZapine [ZyPREXA] 10 mg PO HS 03/28/18 04/07/18 Allergies Allergy/AdvReac Type Severity Reaction Status Date / Time codeine Allergy Swelling Verified 04/07/18 18:12 furosemide [From Lasix] Allergy Rash/Hives Verified 04/07/18 18:12 haloperidol [From Haldol] Allergy Unknown Verified 04/07/18 18:12 prochlorperazine Allergy Swelling Verified 04/07/18 18:12 lactose AdvReac Diarrhea Verified 04/07/18 18:12 Review of Systems ROS Statement: Those systems with pertinent positive or pertinent negative responses have been documented in the HPI. ROS Other: All systems not noted in ROS Statement are negative. Past Medical History Past Medical History: COPD, Musculoskeletal Disorder, Seizure Disorder Additional Past Medical History / Comment(s): History of seizures-per patient, his last seizure 2011, Hepatitis C, history of IV drug use, history of crack cocaine use, Degenerative disc disease in back, possible arthritis in knees, hips and arms, History of chronic pancreatitis, pancreatic pseudocyst formation History of Any Multi-Drug Resistant Organisms: None Reported Past Surgical History: Appendectomy, Cholecystectomy Additional Past Surgical History / Comment(s): RK eye surgery-1998, drain for pancreatitis, RT LUNG THOROSCOPIC DECOTICATION, partial gastrectomy/removal of pancreatic psuedocyst and lysis of adhesions 12-16-2017 Past Anesthesia/Blood Transfusion Reactions: No Reported Reaction Past Psychological History: Bipolar, Depression Smoking Status: Current every day smoker Past Alcohol Use History: None Reported Past Drug Use History: None Reported - Past Family History Brother(s) Additional Family Medical History / Comment(s): Chronic alcoholism Sister(s) Additional Family Medical History / Comment(s): Chronic alcoholism Daughter(s) Additional Family Medical History / Comment(s): One daughter healthy Son(s) Additional Family Medical History / Comment(s): One son healthy Father History Unknown: Yes Family Medical History: AICD/Pacemaker, Myocardial Infarction ([place]) Additional Family Medical History / Comment(s): Schizophrenia. Per patient, his father at the age of 59 Mother History Unknown: Yes Family Medical History: No Reported History Additional Family Medical History / Comment(s): HPV General Exam - General Exam Comments Initial Comments: GENERAL: Patient is well-developed and well-nourished. Patient is nontoxic and well- hydrated and is in mild distress. ENT: Neck is soft and supple. No significant lymphadenopathy is noted. Oropharynx is clear. Moist mucous membranes. Neck has full range of motion without eliciting any pain. EYES: The sclera were anicteric and conjunctiva were pink and moist. Extraocular movements were intact and pupils were equal round and reactive to light. Eyelids were unremarkable. PULMONARY: Unlabored respirations. Good breath sounds bilaterally. No audible rales rhonchi or wheezing was noted. CARDIOVASCULAR: There is a regular rate and rhythm without any murmurs gallops or rubs. ABDOMEN: Abdomen is tender left upper quadrant patient does have some guarding. SKIN: Skin is clear with no lesions or rashes and otherwise unremarkable. NEUROLOGIC: Patient is alert and oriented x3. Cranial nerves II through XII are grossly intact. Motor and sensory are also intact. Normal speech, volume and content. Symmetrical smile. MUSCULOSKELETAL: Normal extremities with adequate strength and full range of motion. No lower extremity swelling or edema. No calf tenderness. LYMPHATICS: No significant lymphadenopathy is noted PSYCHIATRIC: Normal psychiatric evaluation. Limitations: no limitations Course Vital Signs 04/07/18 04/07/18 17:33 19:06 Temperature 98.1 F Pulse Rate 122 H 103 H Respiratory 24 20 Rate Blood Pressure 114/85 121/80 O2 Sat by Pulse 97 95 Oximetry Medical Decision Making - Lab Data Result diagrams: 04/07/18 18:50 04/07/18 18:50 Lab Results 04/07/18 04/07/18 04/07/18 Range/Units 18:50 18:50 19:10 WBC 12.5 H (3.8-10.6) k/uL RBC 5.71 (4.30-5.90) m/uL Hgb 14.7 (13.0-17.5) gm/dL Hct 45.0 (39.0-53.0) % MCV 78.9 L (80.0-100.0) fL MCH 25.8 (25.0-35.0) pg MCHC 32.6 (31.0-37.0) g/dL RDW 16.5 H (11.5-15.5) % Plt Count 183 (150-450) k/uL Neutrophils % 71 % Lymphocytes % 18 % Monocytes % 5 % Eosinophils % 4 % Basophils % 1 % Neutrophils # 8.9 H (1.3-7.7) k/uL Lymphocytes # 2.3 (1.0-4.8) k/uL Monocytes # 0.7 (0-1.0) k/uL Eosinophils # 0.5 (0-0.7) k/uL Basophils # 0.1 (0-0.2) k/uL Anisocytosis Slight Microcytosis Slight Sodium 139 (137-145) mmol/L Potassium 4.1 (3.5-5.1) mmol/L Chloride 104 (98-107) mmol/L Carbon Dioxide 22 (22-30) mmol/L Anion Gap 13 mmol/L BUN 17 (9-20) mg/dL Creatinine 0.61 L (0.66-1.25) mg/dL Est GFR (CKD-EPI)AfAm >90 (>60 ml/min/1.73 sqM) Est GFR (CKD-EPI)NonAf >90 (>60 ml/min/1.73 sqM) Glucose 123 H (74-99) mg/dL Calcium 9.4 (8.4-10.2) mg/dL Total Bilirubin 0.3 (0.2-1.3) mg/dL AST 42 (17-59) U/L ALT 31 (21-72) U/L Alkaline Phosphatase 149 H (38-126) U/L Total Protein 7.1 (6.3-8.2) g/dL Albumin 4.3 (3.5-5.0) g/dL Amylase 101 (30-110) U/L Lipase 62 (23-300) U/L Urine Color Yellow Urine Appearance Clear (Clear) Urine pH 6.0 (5.0-8.0) Ur Specific [place] 1.018 (1.001-1.035) Urine Protein Trace H (Negative) Urine Glucose (UA) Negative (Negative) Urine Ketones Negative (Negative) Urine Blood Negative (Negative) Urine Nitrite Negative (Negative) Urine Bilirubin Negative (Negative) Urine Urobilinogen <2.0 (<2.0) mg/dL Ur Leukocyte Esterase Negative (Negative) Disposition Clinical Impression: Pancreatitis Disposition: ADMITTED IP TO THIS [facility] Condition: Good
[2018-04-07 19:14] LABS: Anisocytosis Slight; Basophils # (A) 0.1 k/uL (0-0.2); Basophils % (A) 1 %; Eosinophils # (A) 0.5 k/uL (0-0.7); Eosinophils % (A) 4 %; HGB 14.7 gm/dL (13.0-17.5); Lymphocytes # (A) 2.3 k/uL (1.0-4.8); Lymphocytes % (A) 18 %; MCH 25.8 pg (25.0-35.0); MCHC 32.6 g/dL (31.0-37.0); MCV 78.9 fL (80.0-100.0); Microcytosis Slight; Monocytes # (A) 0.7 k/uL (0-1.0); Monocytes % (A) 5 %; Neutrophils # (A) 8.9 k/uL (1.3-7.7); Neutrophils % (A) 71 %; Platelet Count 183 k/uL (150-450); RBC 5.71 m/uL (4.30-5.90); RDW 16.5 % (11.5-15.5); WBC 12.5 k/uL (3.8-10.6)
[2018-04-07 19:29] LABS: Appearance,Urine Clear (Clear); Bilirubin,Urine Negative (Negative); Blood,Urine Negative (Negative); Color,Urine Yellow; Glucose,Urine (UA) Negative (Negative); Ketones,Urine Negative (Negative); Leukocyte Esterase,Urine Negative (Negative); Nitrite,Urine Negative (Negative); Protein,Urine Trace (Negative); Specific Gravity,Urine 1.018 (1.001-1.035); Urobilinogen,Urine <2.0 mg/dL (<2.0)
[2018-04-07 19:34] LABS: ALT 31 U/L (21-72); AST 42 U/L (17-59); Albumin 4.3 g/dL (3.5-5.0); Alkaline Phosphatase 149 U/L (38-126); Amylase 101 U/L (30-110); Anion Gap 13 mmol/L; Blood Urea Nitrogen 17 mg/dL (9-20); Calcium 9.4 mg/dL (8.4-10.2); Carbon Dioxide 22 mmol/L (22-30); Chloride 104 mmol/L (98-107); Glucose 123 mg/dL (74-99); Lipase 62 U/L (23-300); Potassium 4.1 mmol/L (3.5-5.1); Sodium 139 mmol/L (137-145); Total Bilirubin 0.3 mg/dL (0.2-1.3); Total Protein 7.1 g/dL (6.3-8.2)
--- NOTE | 2018-04-07 20:56 | CT ---
EXAMINATION TYPE: CT abdomen pelvis w con DATE OF EXAM: 04/07/2018 COMPARISON: 12/10/2017 HISTORY: abdominal pain, hx of pancreatitis CT DLP: 1151.7 mGycm Automated exposure control for dose reduction was used. TECHNIQUE: Helical acquisition of images was performed from the lung bases through the pelvis. CONTRAST: Performed with Oral Contrast and with IV Contrast, patient injected with 100 mL of Isovue 300. FINDINGS: Lung bases are clear. There is 1 cm calcified granuloma in the right middle lobe. There is no pleural effusion. Heart size is normal. There is no pericardial effusion. Liver shows no focal defect. Spleen is large and measures 14.5 cm. There is an irregular cyst in the tail of the pancreas that measures 5 cm. There is mild fat stranding around the tail of the pancreas and adjacent to the stomach. The bile ducts are not dilated. Gallbladder is absent. There is no adrenal mass. Kidneys show satisfactory contrast opacification. There is no hydronephrosi s. There are a few enlarged periaortic lymph nodes. These measure up to 1.5 cm. There is 1 cm hepatog astric lymph node. There are scattered enlarged mesenteric lymph nodes in the mid abdomen. The bladder distends smoothly. There is no inguinal hernia. There is mild free fluid in the pelvis. A ppendix is not seen. There is no sign of appendicitis. There is some fluid around the spleen and at t he splenic hilum. IMPRESSION: THERE IS A MODERATE-SIZED PSEUDOCYST IN THE TAIL OF THE PANCREAS CONSISTENT WITH CHRONIC PANCREATITIS . THIS IS SLIGHTLY SMALLER THAN OLD CT SCAN OF 12/10/2017. THIS IS MORE TOWARDS THE TAIL OF THE PANCRE COMPARED TO OLD EXAM. THERE IS FAT STRANDING AROUND THE PANCREAS CONSISTENT WITH ACUTE INFLAMMATOR Y PROCESS. MILD ASCITES FLUID IS INCREASED SLIGHTLY COMPARED TO OLD EXAM. There is stable retroperito eber and mesenteric lymphadenopathy.
[2018-04-08] MEDS ORDERED: ONDANSETRON 4 MG/2 ML VIAL IVP PRN (02:47)
[2018-04-08] MEDS: HYDROmorphone 1 MG/ML 1 ML SYRINGE IVP PRN ×5 (04:27→21:25)
[2018-04-08] MEDS: SODIUM CHLORIDE 0.9% 1,000 ML IV SCH ×3 (04:29→23:24)
--- NOTE | 2018-04-08 10:07 | HP ---
HISTORY AND PHYSICAL CHIEF COMPLAINT: White male admitted with acute abdominal pain, pancreatitis, unable to keep anything down by mouth. He came in due to recurrent pancreatitis and abdominal pain and dehydration. He was found to have pseudocyst on a CAT scan and was admitted for surgical consult. Denies chest pain or shortness of breath at this time. No injury or trauma. HOME MEDICATIONS: 1. Remeron. 2. Lamictal. 3. Zyprexa. 4. Prilosec. There is a history of bipolar and recurrent pancreatitis. Allergies are to CODEINE, LASIX, HALDOL, PROCHLORPERAZINE, LACTOSE. COPD and seizures, history of crack cocaine usage. History of degenerative disc disease, osteoarthritis. PAST FAMILY HISTORY: Brother with chronic alcoholism, sister with same thing. Daughter healthy, sons, healthy. Father, AICD, schizophrenia, myocardial infarction in mother. PHYSICAL EXAM: White male, obese, appears in mild discomfort in his abdomen. NEUROLOGIC: Cranial nerves are intact. PSYCH: Fair mood and affect. LUNGS: Transmitted upper sounds. CARDIOVASCULAR: S1, S2. HEMATOLOGY: Negative Homans. GI: There is diffuse tenderness. LABS: Reviewed. He has tachycardia secondary to pancreatitis. Labs show acute pancreatitis. He has history of bipolar, pancreatic pseudocyst, leukocytosis secondary to pancreatitis. UA is negative. Will get a consult with Surgery. Keep fluid hydrations going. Please see further orders. MMODL / IJN: [id number] /
--- NOTE | 2018-04-08 11:17 | P.GSCN ---
History of Present Illness Consult date: 04/08/18 Reason for Consult: Abdominal pain History of present illness: 42-year-old male known to Dr. frazier service presented to the emergency room with sudden onset of left lower quadrant pain patient stated was a sudden onset. Had been in Dr. frazier office Wednesday of this week for follow-up surgical visit had not been experiencing any abdominal pain. CAT scan of the abdomen pelvis was obtained in the emergency room reviewing the report indicate moderate sized pseudocyst in the tail the pancreas consistent with chronic pancreatitis slightly smaller than the old CAT scan done in November 2017 mild ascites noted that straining around the pancreas consistent with an inflammatory process acute currently patient states the only thing that seems to help the abdominal pain the IV pain medication reports no nausea no vomiting no stooling patient had December 16 2017 undergone laparoscopic lysis of adhesions, partial omentectomy, cyst gastrostomy for chronic pancreatitis Review of Systems Essentially unremarkable except as mentioned in the present illness Past Medical History Past Medical History: COPD, Musculoskeletal Disorder, Seizure Disorder Additional Past Medical History / Comment(s): History of seizures-per patient, his last seizure 2011, Hepatitis C, history of IV drug use, history of crack cocaine use, Degenerative disc disease in back, possible arthritis in knees, hips and arms, History of chronic pancreatitis, pancreatic pseudocyst formation History of Any Multi-Drug Resistant Organisms: None Reported Past Surgical History: Appendectomy, Cholecystectomy Additional Past Surgical History / Comment(s): RK eye surgery-1998, drain for pancreatitis, RT LUNG THOROSCOPIC DECOTICATION, partial gastrectomy/removal of pancreatic psuedocyst and lysis of adhesions 12-16-2017 Past Anesthesia/Blood Transfusion Reactions: No Reported Reaction Past Psychological History: Bipolar, Depression Smoking Status: Current every day smoker Past Alcohol Use History: None Reported Additional Past Alcohol Use History / Comment(s): Patient reports he drinks approximately 4 times a year-last drink per patient was this passed wednesday. Past Drug Use History: None Reported Additional Drug Use History / Comment(s): STATES NO CURRENT USE - Past Family History Brother(s) Additional Family Medical History / Comment(s): Chronic alcoholism Sister(s) Additional Family Medical History / Comment(s): Chronic alcoholism Daughter(s) Additional Family Medical History / Comment(s): One daughter healthy Son(s) Additional Family Medical History / Comment(s): One son healthy Father History Unknown: Yes Family Medical History: AICD/Pacemaker, Myocardial Infarction ([place]) Additional Family Medical History / Comment(s): Schizophrenia. Per patient, his father at the age of 59 Mother History Unknown: Yes Family Medical History: No Reported History Additional Family Medical History / Comment(s): HPV Medications and Allergies Home Medications Medication Instructions Recorded Confirmed Type Mirtazapine [Remeron] 15 mg PO HS 11/23/16 04/07/18 History lamoTRIgine [LaMICtal] 100 mg PO BID 03/13/17 04/07/18 History Omeprazole Magnesium [PriLOSEC OTC] 20 mg PO HS 11/16/17 04/07/18 History OLANZapine [ZyPREXA] 10 mg PO HS 03/28/18 04/07/18 History Allergies Allergy/AdvReac Type Severity Reaction Status Date / Time codeine Allergy Swelling Verified 04/07/18 18:12 furosemide [From Lasix] Allergy Rash/Hives Verified 04/07/18 18:12 haloperidol [From Haldol] Allergy Unknown Verified 04/07/18 18:12 prochlorperazine Allergy Swelling Verified 04/07/18 18:12 lactose AdvReac Diarrhea Verified 04/07/18 18:12 Surgical - Exam Vital Signs Temp Pulse Resp BP Pulse Ox 98.1 F 122 H 24 114/85 97 04/07/18 17:33 04/07/18 17:33 04/07/18 17:33 04/07/18 17:33 04/07/18 17:33 GENERAL APPEARANCE: Reports having left lower quadrant abdominal discomfort patient is alert, oriented, in no acute distress. VITAL SIGNS: Reviewed HEENT: Head is normocephalic and atraumatic. Pupils are equal and reactive. The nares are patent. Oropharynx is clear without lesions. NECK: Supple without lymphadenopathy. Traches midline. HEART: S1, S2. Regular rate and rhythm. No murmur denying chest pain LUNGS: No crackles or wheezes are heard. On room air ABDOMEN: Soft, mild tenderness to the left lower quadrant nondistended with good bowel sounds. No peritoneal signs. No palpable organomegaly or masses. EXTREMITIES: Normal skin color and turgor. No cyanosis, rash, ulceration, clubbing or edema. Radial pedal pulses are 2/4 bilaterally. NEUROLOGICAL: No focal deficits. Strength and sensation are grossly intact. Results - Labs 04/07/18 18:50 04/07/18 18:50 Abnormal Lab Results - Last 24 Hours (Table) 04/07/18 04/07/18 04/07/18 Range/Units 18:50 18:50 19:10 WBC 12.5 H (3.8-10.6) k/uL MCV 78.9 L (80.0-100.0) fL RDW 16.5 H (11.5-15.5) % Neutrophils # 8.9 H (1.3-7.7) k/uL Creatinine 0.61 L (0.66-1.25) mg/dL Glucose 123 H (74-99) mg/dL Alkaline Phosphatase 149 H (38-126) U/L Urine Protein Trace H (Negative) Diabetes panel 04/07/18 Range/Units 18:50 Sodium 139 (137-145) mmol/L Potassium 4.1 (3.5-5.1) mmol/L Chloride 104 (98-107) mmol/L Carbon Dioxide 22 (22-30) mmol/L BUN 17 (9-20) mg/dL Creatinine 0.61 L (0.66-1.25) mg/dL Glucose 123 H (74-99) mg/dL Calcium 9.4 (8.4-10.2) mg/dL AST 42 (17-59) U/L ALT 31 (21-72) U/L Alkaline Phosphatase 149 H (38-126) U/L Total Protein 7.1 (6.3-8.2) g/dL Albumin 4.3 (3.5-5.0) g/dL Calcium panel 04/07/18 Range/Units 18:50 Calcium 9.4 (8.4-10.2) mg/dL Albumin 4.3 (3.5-5.0) g/dL Pituitary panel 04/07/18 Range/Units 18:50 Sodium 139 (137-145) mmol/L Potassium 4.1 (3.5-5.1) mmol/L Chloride 104 (98-107) mmol/L Carbon Dioxide 22 (22-30) mmol/L BUN 17 (9-20) mg/dL Creatinine 0.61 L (0.66-1.25) mg/dL Glucose 123 H (74-99) mg/dL Calcium 9.4 (8.4-10.2) mg/dL Adrenal panel 04/07/18 Range/Units 18:50 Sodium 139 (137-145) mmol/L Potassium 4.1 (3.5-5.1) mmol/L Chloride 104 (98-107) mmol/L Carbon Dioxide 22 (22-30) mmol/L BUN 17 (9-20) mg/dL Creatinine 0.61 L (0.66-1.25) mg/dL Glucose 123 H (74-99) mg/dL Calcium 9.4 (8.4-10.2) mg/dL Total Bilirubin 0.3 (0.2-1.3) mg/dL AST 42 (17-59) U/L ALT 31 (21-72) U/L Alkaline Phosphatase 149 H (38-126) U/L Total Protein 7.1 (6.3-8.2) g/dL Albumin 4.3 (3.5-5.0) g/dL Assessment and Plan Assessment: Impression present on admission left lower quadrant abdominal pain likely due to a pseudocyst in the pancreas 12/16/2017 laparoscopic lysis of adhesions, partial omentectomy, cyst gastrostomy for chronic pancreatitis with pancreatic pseudocyst Major depressive disorder History of IV drug abuse in remission Depressive disorder with bipolar Chronic pancreatitis with episodes of reoccurring pancreatic pseudocyst Present on admission leukocytosis suspect reactive Plan Continue IV hydration Pain control No evidence of an acute surgical abdomen at this time We'll follow with you with further surgical recommendations Home meds as appropriate DVT and GI prophylaxis Surgical consultation dictated for Dr. frazier The above impression and plan of care have been discussed and directed by signing physician. Ana Meredith nurse practitioner acting as scribe for signing physician.
[2018-04-08] MEDS ORDERED: IPRATROPIUM-ALBUTEROL 3 ML NEB INHALATION PRN (21:28)
[2018-04-08 21:36] VITALS: RESP 18
[2018-04-08] MEDS: NICOTINE 21MG/24HR PATCH TRANSDERM SCH (23:24)
[2018-04-09] MEDS: HYDROmorphone 1 MG/ML 1 ML SYRINGE IVP PRN ×3 (01:02→08:52)
--- NOTE | 2018-04-09 06:49 | P.CONS ---
History of Present Illness - Reason for Consult Consult date: 04/08/18 Pancreatitis, abdominal pain Requesting physician: Bandar Camacho - Chief Complaint Abdominal pain - History of Present Illness The patient is a pleasant 42-year-old male with a medical history significant for COPD, hepatitis C and pancreatitis who presented to the hospital with complaints of abdominal pain. The patient has had multiple episodes of pancreatitis in the past which have been complicated by the formation of pseudocysts. He reports that initial episode of pancreatitis was secondary to choledocholithiasis. The patient underwent cholecystectomy and was sent to [facility] for ERCP with stone removal. The patient subsequently developed a pancreatic pseudocyst and underwent surgical cyst gastrostomy. He reports back to the hospital with similar abdominal pain described as sharp in nature with radiation to the back. He had associated nausea and vomiting. She denies any alcohol use but is a current user of tobacco products. On presentation to the hospital the patient had a computed tomography scan which showed a moderate pancreatic tail pseudocyst decreased in size from prior imaging in November 2017 with fat stranding around the pancreas noted. Amylase on presentation was 101 and lipase was 62. The patient had a mildly elevated white count on the CBC lab draw with a WBC 12.5, hemoglobin was found to be 14.7 and platelets 183. Liver enzymes were normal with a total bilirubin 0.3, alkaline phosphatase 149, AST 42 and ALT 31. The patient also reports multiple endoscopic evaluations in the past with EGD and colonoscopy with the last endoscopies occurring approximately 10 years ago for which she is not completely clear on what the results were. Review of Systems REVIEW OF SYSTEMS: CARDIO: Denies any chest pain or palpitations. PULMONARY: Denies any shortness of breath or wheezing. GENITOURINARY: No dysuria or hematuria. MUSCULOSKELETAL: No weakness reported. SKIN: Denies any new rashes or lesions, jaundice or pallor. PSYCHIATRIC: Denies any depression or anxiety. NEUROLOGY: Denies headache, denies any new focal deficits. EARS: No tinnitus, discharge or new hearing loss. NOSE: No discharge or congestion. EYES: No pain in eyes or change in vision. CONSTITUTIONAL: No recent weight loss. No fever, chills, night sweats. Past Medical History Past Medical History: COPD, Musculoskeletal Disorder, Seizure Disorder Additional Past Medical History / Comment(s): History of seizures-per patient, his last seizure 2011, Hepatitis C, history of IV drug use, history of crack cocaine use, Degenerative disc disease in back, possible arthritis in knees, hips and arms, History of chronic pancreatitis, pancreatic pseudocyst formation History of Any Multi-Drug Resistant Organisms: None Reported Past Surgical History: Appendectomy, Cholecystectomy Additional Past Surgical History / Comment(s): RK eye surgery-1998, drain for pancreatitis, RT LUNG THOROSCOPIC DECOTICATION, partial gastrectomy/removal of pancreatic psuedocyst and lysis of adhesions 12-16-2017 Past Anesthesia/Blood Transfusion Reactions: No Reported Reaction Past Psychological History: Bipolar, Depression Smoking Status: Current every day smoker Past Alcohol Use History: None Reported Additional Past Alcohol Use History / Comment(s): Patient reports he drinks approximately 4 times a year-last drink per patient was this passed wednesday. Past Drug Use History: None Reported Additional Drug Use History / Comment(s): STATES NO CURRENT USE - Past Family History Brother(s) Additional Family Medical History / Comment(s): Chronic alcoholism Sister(s) Additional Family Medical History / Comment(s): Chronic alcoholism Daughter(s) Additional Family Medical History / Comment(s): One daughter healthy Son(s) Additional Family Medical History / Comment(s): One son healthy Father History Unknown: Yes Family Medical History: AICD/Pacemaker, Myocardial Infarction ([place]) Additional Family Medical History / Comment(s): Schizophrenia. Per patient, his father at the age of 59 Mother History Unknown: Yes Family Medical History: No Reported History Additional Family Medical History / Comment(s): HPV Medications and Allergies Home Medications Medication Instructions Recorded Confirmed Type Mirtazapine [Remeron] 15 mg PO HS 11/23/16 04/07/18 History lamoTRIgine [LaMICtal] 100 mg PO BID 03/13/17 04/07/18 History Omeprazole Magnesium [PriLOSEC OTC] 20 mg PO HS 11/16/17 04/07/18 History OLANZapine [ZyPREXA] 10 mg PO HS 03/28/18 04/07/18 History Allergies Allergy/AdvReac Type Severity Reaction Status Date / Time codeine Allergy Swelling Verified 04/07/18 18:12 furosemide [From Lasix] Allergy Rash/Hives Verified 04/07/18 18:12 haloperidol [From Haldol] Allergy Unknown Verified 04/07/18 18:12 prochlorperazine Allergy Swelling Verified 04/07/18 18:12 lactose AdvReac Diarrhea Verified 04/07/18 18:12 Physical Exam Vitals: Vital Signs Temp Pulse Pulse Resp BP Pulse Ox 04/08/18 23:00 99.2 F 90 18 95/58 90 L 04/08/18 21:42 72 18 04/08/18 21:35 68 18 04/08/18 16:00 16 04/08/18 15:00 98.3 F 80 16 90/46 92 L 04/08/18 06:31 97.7 F 81 17 99/58 92 L Intake and Output 04/08/18 04/08/18 04/09/18 14:59 22:59 06:59 Other: Voiding Method Toilet # Voids 2 2 On physical examination, patient appears comfortable in no apparent distress. HEAD: Normocephalic, atraumatic. EYES: No scleral icterus. No conjunctival injection. MOUTH: No lesions, tongue midline. NECK: Trachea midline, no gross abnormalities. CHEST: Clear to auscultation with no wheezing or rhonchi appreciated. HEART: Regular rate and rhythm. ABDOMEN: Soft, diffusely tender. Scarring consistent with prior surgeries which is well-healed. Bowel sounds are positive. No organomegaly. No guarding or rigidity. EXTREMITIES: No pedal edema. SKIN: No rashes, no jaundice. NEUROLOGIC: Alert and oriented x3. No focal deficits. Results CBC & Chem 7: 04/07/18 18:50 04/07/18 18:50 CT scan - abdomen: report reviewed (computed tomography scan which showed a moderate pancreatic tail pseudocyst decreased in size from prior imaging in November 2017 with fat stranding around the pancreas noted) Assessment and Plan (1) Acute on chronic pancreatitis Narrative/Plan: Patient presenting with abdominal pain, nausea and vomiting with computed tomography scan which showed a moderate pancreatic tail pseudocyst decreased in size from prior imaging in November 2017 with fat stranding around the pancreas noted. The patient initially reports pancreatitis secondary to gallstone pancreatitis. Currently denying any alcohol use however he is a current smoker. Current Visit: No Status: Acute Code(s): K85.90 - ACUTE PANCREATITIS WITHOUT NECROSIS OR INFECTION, UNSP; K86.1 - OTHER CHRONIC PANCREATITIS SNOMED Code(s): 666724155 (2) Pancreatic pseudocyst Current Visit: No Status: Acute Code(s): K86.3 - PSEUDOCYST OF PANCREAS SNOMED Code(s): 582801234 (3) History of hepatitis C Current Visit: No Status: Resolved Code(s): Z86.19 - PERSONAL HISTORY OF OTHER INFECTIOUS AND PARASITIC DISEASES SNOMED Code(s): 30582647794541 Plan: Supportive care Fluid hydration Nothing by mouth, advance diet as tolerated Pain control Appreciate surgical recommendations No plan for endoscopic intervention at this time Emphasized the need for tobacco cessation Thank you for allowing us to participate in the care of this patient we will continue to follow
[2018-04-09 07:14] VITALS: BP 100/68; PULSE 80; TEMP 98
[2018-04-09] MEDS: NICOTINE 21MG/24HR PATCH TRANSDERM SCH (08:51)
[2018-04-09] MEDS: SODIUM CHLORIDE 0.9% 1,000 ML IV SCH (08:52)
== END 2018-04-09 11:42 | disposition home or self-care (01) | DRG 439 ==
LOC: EC 17:03 → 4MS4W 22:00
PROVIDERS: ADMIT Family Medicine; ATTEND Family Medicine
DX: K85.90 Acute pancreatitis without necrosis or infection, unspecified (principal); K86.3 Pseudocyst of pancreas; R18.8 Other ascites; E86.0 Dehydration; F17.200 Nicotine dependence, unspecified, uncomplicated; F19.11 Other psychoactive substance abuse, in remission; F32.9 Major depressive disorder, single episode, unspecified; G40.909 Epilepsy, unspecified, not intractable, without status epilepticus; J44.9 Chronic obstructive pulmonary disease, unspecified; K86.1 Other chronic pancreatitis; Z79.899 Other long term (current) drug therapy; Z81.8 Family history of other mental and behavioral disorders; Z82.49 Family history of ischemic heart disease and other diseases of the circulatory system; Z90.3 Acquired absence of stomach [part of]; Z88.5 Allergy status to narcotic agent; Z88.8 Allergy status to other drugs, medicaments and biological substances; Z91.040 Latex allergy status; Z86.19 Personal history of other infectious and parasitic diseases
CPT/HCPCS: 36415; 74177; 80053; 81003; 82150; 83690; 85025; 94640; 96361; 96374; 96375; 99285

== ENCOUNTER 2018-04-17 14:51 | Emergency (ER) | payer MEDICARE ==
[2018-04-17 15:06] VITALS: RESP 18
[2018-04-17] MEDS ORDERED: HYDROmorphone 0.5 MG/0.5 ML SYRINGE IVP STA (15:32)
[2018-04-17] MEDS ORDERED: ONDANSETRON 4 MG/2 ML VIAL IVP STA (15:32)
[2018-04-17] MEDS ORDERED: SODIUM CHLORIDE 0.9% 1,000 ML IV STA (15:33)
--- NOTE | 2018-04-17 15:46 | ED ---
General Adult HPI - General Chief complaint: Abdominal Pain Stated complaint: Abd pain Time Seen by Provider: 04/17/18 15:08 Source: patient, RN notes reviewed Mode of arrival: ambulatory Limitations: no limitations - History of Present Illness Initial comments: Patient 42-year-old male significant past medical history for pancreatitis, presenting to the emergency room today with a chief complaint of abdominal pain that is consistent with pancreatitis that is had in the past. Patient does admit that he was seen here in emergency room Department 10 days ago admitted. Patient states he still expressing pain in the upper abdomen. States mostly on the left side. Patient does admit to decreased appetite and difficult time eating. He does admit that he's had some nausea vomiting. Patient denies any other complaints or symptoms. Patient denies any recent fever, chills, shortness of breath, chest pain, back pain, numbness or tingling, headaches or visual changes, or any other complaints. - Related Data Home Medications Medication Instructions Recorded Confirmed Mirtazapine [Remeron] 15 mg PO HS 11/23/16 04/17/18 lamoTRIgine [LaMICtal] 100 mg PO BID 03/13/17 04/17/18 OLANZapine [ZyPREXA] 10 mg PO HS 03/28/18 04/17/18 Buprenorphine HCl/Naloxone HCl 1 tab SL DAILY 04/17/18 04/17/18 [Buprenorphin-Naloxon 8-2 mg Sl] Allergies Allergy/AdvReac Type Severity Reaction Status Date / Time codeine Allergy Swelling Verified 04/17/18 15:39 furosemide [From Lasix] Allergy Rash/Hives Verified 04/17/18 15:39 haloperidol [From Haldol] Allergy Unknown Verified 04/17/18 15:39 prochlorperazine Allergy Swelling Verified 04/17/18 15:39 lactose AdvReac Diarrhea Verified 04/17/18 15:39 Review of Systems ROS Statement: Those systems with pertinent positive or pertinent negative responses have been documented in the HPI. ROS Other: All systems not noted in ROS Statement are negative. Past Medical History Past Medical History: COPD, Musculoskeletal Disorder, Seizure Disorder Additional Past Medical History / Comment(s): History of seizures-per patient, his last seizure 2011, Hepatitis C, history of IV drug use, history of crack cocaine use, Degenerative disc disease in back, possible arthritis in knees, hips and arms, History of chronic pancreatitis, pancreatic pseudocyst formation History of Any Multi-Drug Resistant Organisms: None Reported Past Surgical History: Appendectomy, Cholecystectomy Additional Past Surgical History / Comment(s): RK eye surgery-1998, drain for pancreatitis, RT LUNG THOROSCOPIC DECOTICATION, partial gastrectomy/removal of pancreatic psuedocyst and lysis of adhesions 12-16-2017 Past Anesthesia/Blood Transfusion Reactions: No Reported Reaction Past Psychological History: Bipolar, Depression Smoking Status: Current every day smoker Past Alcohol Use History: None Reported Past Drug Use History: None Reported - Past Family History Brother(s) Additional Family Medical History / Comment(s): Chronic alcoholism Sister(s) Additional Family Medical History / Comment(s): Chronic alcoholism Daughter(s) Additional Family Medical History / Comment(s): One daughter healthy Son(s) Additional Family Medical History / Comment(s): One son healthy Father History Unknown: Yes Family Medical History: AICD/Pacemaker, Myocardial Infarction ([place]) Additional Family Medical History / Comment(s): Schizophrenia. Per patient, his father at the age of 59 Mother History Unknown: Yes Family Medical History: No Reported History Additional Family Medical History / Comment(s): HPV General Exam - General Exam Comments Initial Comments: General: The patient is awake and alert, in no distress, and does not appear acutely ill. Ears, nose, mouth and throat: There are moist mucous membranes and no oral lesions. Neck: The neck is supple, there is no tenderness or JVD. Cardiovascular: There is a regular rate and rhythm. No murmur, rub or gallop is appreciated. Respiratory: Lungs are clear to auscultation, respirations are non-labored, breath sounds are equal. No wheezes, stridor, rales, or rhonchi. Gastrointestinal: Admits to palpation. Patient does have tenderness epigastric and left upper quadrant. No rebound, guarding or CVA tenderness. Musculoskeletal: Normal ROM, no tenderness. Neurological: A&O x 3. CN II-XII intact, There are no obvious motor or sensory deficits. Coordination appears grossly intact. Speech is normal. Skin: Skin is warm and dry and no rashes or lesions are noted. Psychiatric: Cooperative, appropriate mood & affect, normal judgment. Limitations: no limitations Course Vital Signs 04/17/18 15:03 Temperature 98.5 F Pulse Rate 93 Respiratory 18 Rate Blood Pressure 114/71 O2 Sat by Pulse 97 Oximetry Medical Decision Making - Medical Decision Making Case discussed in detail with attending physician Dr. Manzanares. Patient's blood work reviewed and are unremarkable. Patient was recently seen here in the hospital 10 days ago admitted for observation. Vision to have CT at that time which did show pseudocyst in the tail of pancreas. Was seen by both GI and his surgeon. Discussed with patient and they did advise him to follow-up with GI and possibly seen Antonio Shore for this pseudocyst. Patient currently resting comfortably he does admit to improvement. Patient feels comfortable being discharged home at this time. Will be given nausea medication for symptoms. He is advised following up with GI. Advised return if symptoms increase or worsen or for any other concerns. - Lab Data Result diagrams: 04/17/18 15:42 04/17/18 15:42 Lab Results 04/17/18 04/17/18 04/17/18 Range/Units 15:42 15:42 15:45 WBC 8.8 (3.8-10.6) k/uL RBC 5.42 (4.30-5.90) m/uL Hgb 13.7 (13.0-17.5) gm/dL Hct 42.7 (39.0-53.0) % MCV 78.9 L (80.0-100.0) fL MCH 25.3 (25.0-35.0) pg MCHC 32.0 (31.0-37.0) g/dL RDW 16.2 H (11.5-15.5) % Plt Count 191 (150-450) k/uL Neutrophils % 62 % Lymphocytes % 25 % Monocytes % 6 % Eosinophils % 5 % Basophils % 1 % Neutrophils # 5.5 (1.3-7.7) k/uL Lymphocytes # 2.2 (1.0-4.8) k/uL Monocytes # 0.5 (0-1.0) k/uL Eosinophils # 0.5 (0-0.7) k/uL Basophils # 0.0 (0-0.2) k/uL Anisocytosis Slight Microcytosis Slight Sodium 140 (137-145) mmol/L Potassium 4.4 (3.5-5.1) mmol/L Chloride 105 (98-107) mmol/L Carbon Dioxide 24 (22-30) mmol/L Anion Gap 11 mmol/L BUN 12 (9-20) mg/dL Creatinine 0.60 L (0.66-1.25) mg/dL Est GFR (CKD-EPI)AfAm >90 (>60 ml/min/1.73 sqM) Est GFR (CKD-EPI)NonAf >90 (>60 ml/min/1.73 sqM) Glucose 100 H (74-99) mg/dL Calcium 9.7 (8.4-10.2) mg/dL Total Bilirubin 0.4 (0.2-1.3) mg/dL AST 24 (17-59) U/L ALT 26 (21-72) U/L Alkaline Phosphatase 155 H (38-126) U/L Total Protein 7.2 (6.3-8.2) g/dL Albumin 4.2 (3.5-5.0) g/dL Amylase 114 H (30-110) U/L Lipase 82 (23-300) U/L Urine Color Yellow Urine Appearance Clear (Clear) Urine pH 6.0 (5.0-8.0) Ur Specific [place] 1.013 (1.001-1.035) Urine Protein Negative (Negative) Urine Glucose (UA) Negative (Negative) Urine Ketones Negative (Negative) Urine Blood Negative (Negative) Urine Nitrite Negative (Negative) Urine Bilirubin Negative (Negative) Urine Urobilinogen <2.0 (<2.0) mg/dL Ur Leukocyte Esterase Negative (Negative) Disposition Clinical Impression: Chronic pancreatitis Disposition: HOME SELF-CARE Condition: Good Instructions: Pancreatitis (ED) Additional Instructions: Please use medication as discussed. Please follow-up with GI/family doctor in the next 2 days of symptoms have not improved. Please return to emergency room if the symptoms increase or worsen or for any other concerns. Is patient prescribed a controlled substance at d/c from ED?: No Referrals: None,Stated [Primary Care Provider] - 1-2 days Gato De Leon MD [STAFF PHYSICIAN] - 1-2 days Time of Disposition: 16:37
[2018-04-17 16:02] LABS: Anisocytosis Slight; Basophils % (A) 1 %; Eosinophils # (A) 0.5 k/uL (0-0.7); Eosinophils % (A) 5 %; HCT 42.7 % (39.0-53.0); HGB 13.7 gm/dL (13.0-17.5); Lymphocytes # (A) 2.2 k/uL (1.0-4.8); Lymphocytes % (A) 25 %; MCH 25.3 pg (25.0-35.0); MCV 78.9 fL (80.0-100.0); Mean Platelet Volume 8.7; Microcytosis Slight; Monocytes # (A) 0.5 k/uL (0-1.0); Monocytes % (A) 6 %; Neutrophils # (A) 5.5 k/uL (1.3-7.7); Neutrophils % (A) 62 %; Platelet Count 191 k/uL (150-450); RBC 5.42 m/uL (4.30-5.90); RDW 16.2 % (11.5-15.5); WBC 8.8 k/uL (3.8-10.6)
[2018-04-17 16:03] LABS: Appearance,Urine Clear (Clear); Bilirubin,Urine Negative (Negative); Blood,Urine Negative (Negative); Color,Urine Yellow; Glucose,Urine (UA) Negative (Negative); Ketones,Urine Negative (Negative); Leukocyte Esterase,Urine Negative (Negative); Nitrite,Urine Negative (Negative); Protein,Urine Negative (Negative); Specific Gravity,Urine 1.013 (1.001-1.035); Urobilinogen,Urine <2.0 mg/dL (<2.0)
[2018-04-17 16:12] LABS: ALT 26 U/L (21-72); AST 24 U/L (17-59); Albumin 4.2 g/dL (3.5-5.0); Alkaline Phosphatase 155 U/L (38-126); Amylase 114 U/L (30-110); Anion Gap 11 mmol/L; Blood Urea Nitrogen 12 mg/dL (9-20); Calcium 9.7 mg/dL (8.4-10.2); Carbon Dioxide 24 mmol/L (22-30); Chloride 105 mmol/L (98-107); Glucose 100 mg/dL (74-99); Lipase 82 U/L (23-300); Potassium 4.4 mmol/L (3.5-5.1); Sodium 140 mmol/L (137-145); Total Bilirubin 0.4 mg/dL (0.2-1.3); Total Protein 7.2 g/dL (6.3-8.2)
[2018-04-17 16:57] VITALS: BP 115/69; PULSE 75; TEMP 98.4
== END 2018-04-17 16:57 | disposition home or self-care (01) ==
LOC: EC 14:51
DX: K86.1 Other chronic pancreatitis (principal); K86.3 Pseudocyst of pancreas; G40.909 Epilepsy, unspecified, not intractable, without status epilepticus; F31.9 Bipolar disorder, unspecified; F17.200 Nicotine dependence, unspecified, uncomplicated; Z86.19 Personal history of other infectious and parasitic diseases; Z79.899 Other long term (current) drug therapy; Z88.5 Allergy status to narcotic agent; Z91.011 Allergy to milk products; Z88.8 Allergy status to other drugs, medicaments and biological substances; Z90.49 Acquired absence of other specified parts of digestive tract
CPT/HCPCS: 36415; 80053; 82150; 83690; 85025; 81003; 99284; 96374; 96375; 96361; J2405; J1170

== ENCOUNTER 2018-10-28 13:30 | Observation (INO) | payer MEDICARE ==
[2018-10-28] MEDS ORDERED: PANTOPRAZOLE 40 MG/10 ML VIAL IVP STA (14:08)
[2018-10-28] MEDS ORDERED: MORPHINE SULFATE 4 MG/ML SYRINGE IVP STA (14:08)
[2018-10-28] MEDS ORDERED: ONDANSETRON 4 MG/2 ML VIAL IVP STA (14:08)
[2018-10-28] MEDS ORDERED: SODIUM CHLORIDE 0.9% 500 ML 500 ML IV STA (14:08)
[2018-10-28] MEDS ORDERED: SODIUM CHLORIDE 0.9% 1,000 ML IV STA ×2 (14:08)
--- NOTE | 2018-10-28 14:09 | ED ---
Abdominal Pain HPI - General Chief Complaint: Abdominal Pain Stated Complaint: Abdominal Pain Time Seen by Provider: 10/28/18 14:08 Source: patient, RN notes reviewed, old records reviewed Mode of arrival: ambulatory Limitations: no limitations - History of Present Illness Initial Comments: This is a 43-year-old male the ER for evaluation. Said he presents today for evaluation regarding abdominal pain hepatitis history of pancreatitis. Patient has increased urination lately feels he may have diabetes. Family history of diabetes. Bowel pain is chronic. Feels like prior pancreatitis. Mild nausea no vomiting no other change in symptoms. No drug or alcohol abuse MD Complaint: abdominal pain -: unknown Location: diffuse (As well as a cath), epigastric ( with) Radiation: epigastric Migration to: no migration Severity: moderate Severity scale (1-10): 5 (Does state) Consistency: constant Improves With: nothing ( for) Worsens With: nothing Associated Symptoms: nausea, vomiting - Related Data Home Medications Medication Instructions Recorded Confirmed Mirtazapine [Remeron] 15 mg PO HS 11/23/16 10/28/18 lamoTRIgine [LaMICtal] 100 mg PO BID 03/13/17 10/28/18 OLANZapine [ZyPREXA] 10 mg PO HS 03/28/18 10/28/18 Buprenorphine HCl/Naloxone HCl 1 tab SL DAILY 04/17/18 10/28/18 [Buprenorphin-Naloxon 8-2 mg Sl] Allergies Allergy/AdvReac Type Severity Reaction Status Date / Time codeine Allergy Swelling Verified 10/28/18 15:02 furosemide [From Lasix] Allergy Rash/Hives Verified 10/28/18 15:02 haloperidol [From Haldol] Allergy Unknown Verified 10/28/18 15:02 prochlorperazine Allergy Swelling Verified 10/28/18 15:02 lactose AdvReac Diarrhea Verified 10/28/18 15:02 Review of Systems ROS Statement: Those systems with pertinent positive or pertinent negative responses have been documented in the HPI. ROS Other: All systems not noted in ROS Statement are negative. Past Medical History Past Medical History: COPD, Musculoskeletal Disorder, Seizure Disorder Additional Past Medical History / Comment(s): History of seizures-per patient, his last seizure 2011, Hepatitis C, history of IV drug use, history of crack cocaine use, Degenerative disc disease in back, possible arthritis in knees, hips and arms, History of chronic pancreatitis, pancreatic pseudocyst formation History of Any Multi-Drug Resistant Organisms: None Reported Past Surgical History: Appendectomy, Cholecystectomy Additional Past Surgical History / Comment(s): RK eye surgery-1998, drain for pancreatitis, RT LUNG THOROSCOPIC DECOTICATION, partial gastrectomy/removal of pancreatic psuedocyst and lysis of adhesions 12-16-2017 Past Anesthesia/Blood Transfusion Reactions: No Reported Reaction Past Psychological History: Bipolar, Depression Smoking Status: Current every day smoker Past Alcohol Use History: None Reported Past Drug Use History: None Reported - Past Family History Brother(s) Additional Family Medical History / Comment(s): Chronic alcoholism Sister(s) Additional Family Medical History / Comment(s): Chronic alcoholism Daughter(s) Additional Family Medical History / Comment(s): One daughter healthy Son(s) Additional Family Medical History / Comment(s): One son healthy Father History Unknown: Yes Family Medical History: AICD/Pacemaker, Myocardial Infarction ([place]) Additional Family Medical History / Comment(s): Schizophrenia. Per patient, his father at the age of 59 Mother History Unknown: Yes Family Medical History: No Reported History Additional Family Medical History / Comment(s): HPV General Exam Limitations: no limitations General appearance: alert, in no apparent distress Head exam: Present: atraumatic, normocephalic, normal inspection Eye exam: Present: normal appearance, PERRL, EOMI. Absent: scleral icterus, conjunctival injection, periorbital swelling ENT exam: Present: normal exam, mucous membranes moist Neck exam: Present: normal inspection. Absent: tenderness, meningismus, lymphadenopathy Respiratory exam: Present: normal lung sounds bilaterally. Absent: respiratory distress, wheezes, rales, rhonchi, stridor Cardiovascular Exam: Present: normal rhythm, tachycardia, normal heart sounds. Absent: systolic murmur, diastolic murmur, rubs, gallop, clicks GI/Abdominal exam: Present: soft, normal bowel sounds. Absent: distended, tenderness, guarding, rebound, rigid Extremities exam: Present: normal inspection, full ROM, normal capillary refill. Absent: tenderness, pedal edema, joint swelling, calf tenderness Back exam: Present: normal inspection Neurological exam: Present: alert, oriented X3, CN II-XII intact Psychiatric exam: Present: normal affect, normal mood Skin exam: Present: warm, dry, intact, normal color. Absent: rash Course Vital Signs 10/28/18 13:53 Temperature 98.1 F Pulse Rate 104 H Respiratory 20 Rate Blood Pressure 141/70 O2 Sat by Pulse 95 Oximetry - Reevaluation(s) Reevaluation #1: 10/28/18 15:22 Medical record is reviewed Reevaluation #2: 10/28/18 15:22 Blood sugar is improving with hydration Medical Decision Making - Medical Decision Making 40 female the ER for evaluation acute a car. His. With hypoglycemia new-onset diabetes. We'll admit for diabetic education blood sugar control - Lab Data Result diagrams: 10/28/18 14:00 10/28/18 14:00 Lab Results 10/28/18 10/28/18 10/28/18 Range/Units 14:00 14:00 14:00 WBC 8.6 (3.8-10.6) k/uL RBC 4.51 (4.30-5.90) m/uL Hgb 12.6 L (13.0-17.5) gm/dL Hct 38.8 L (39.0-53.0) % MCV 85.9 (80.0-100.0) fL MCH 28.0 (25.0-35.0) pg MCHC 32.6 (31.0-37.0) g/dL RDW 14.4 (11.5-15.5) % Plt Count 154 (150-450) k/uL Neutrophils % 71 % Lymphocytes % 20 % Monocytes % 4 % Eosinophils % 3 % Basophils % 1 % Neutrophils # 6.1 (1.3-7.7) k/uL Lymphocytes # 1.8 (1.0-4.8) k/uL Monocytes # 0.3 (0-1.0) k/uL Eosinophils # 0.2 (0-0.7) k/uL Basophils # 0.1 (0-0.2) k/uL Sodium 130 L (137-145) mmol/L Potassium 3.7 (3.5-5.1) mmol/L Chloride 93 L (98-107) mmol/L Carbon Dioxide 25 (22-30) mmol/L Anion Gap 12 mmol/L BUN 7 L (9-20) mg/dL Creatinine 0.53 L (0.66-1.25) mg/dL Est GFR (CKD-EPI)AfAm >90 (>60 ml/min/1.73 sqM) Est GFR (CKD-EPI)NonAf >90 (>60 ml/min/1.73 sqM) Glucose 658 H* (74-99) mg/dL Calcium 9.2 (8.4-10.2) mg/dL Phosphorus (2.5-4.5) mg/dL Magnesium (1.6-2.3) mg/dL Total Bilirubin 0.5 (0.2-1.3) mg/dL AST 34 (17-59) U/L ALT 34 (21-72) U/L Alkaline Phosphatase 249 H (38-126) U/L Total Protein 6.7 (6.3-8.2) g/dL Albumin 4.1 (3.5-5.0) g/dL Amylase 44 (30-110) U/L Lipase 144 (23-300) U/L Urine Color Light Yellow Urine Appearance Clear (Clear) Urine pH 6.0 (5.0-8.0) Ur Specific Nelson 1.035 (1.001-1.035) Urine Protein Negative (Negative) Urine Glucose (UA) 4+ H (Negative) Urine Ketones Negative (Negative) Urine Blood Negative (Negative) Urine Nitrite Negative (Negative) Urine Bilirubin Negative (Negative) Urine Urobilinogen <2.0 (<2.0) mg/dL Ur Leukocyte Esterase Negative (Negative) Serum Alcohol mg/dL 10/28/18 Range/Units 14:00 WBC (3.8-10.6) k/uL RBC (4.30-5.90) m/uL Hgb (13.0-17.5) gm/dL Hct (39.0-53.0) % MCV (80.0-100.0) fL MCH (25.0-35.0) pg MCHC (31.0-37.0) g/dL RDW (11.5-15.5) % Plt Count (150-450) k/uL Neutrophils % % Lymphocytes % % Monocytes % % Eosinophils % % Basophils % % Neutrophils # (1.3-7.7) k/uL Lymphocytes # (1.0-4.8) k/uL Monocytes # (0-1.0) k/uL Eosinophils # (0-0.7) k/uL Basophils # (0-0.2) k/uL Sodium (137-145) mmol/L Potassium (3.5-5.1) mmol/L Chloride (98-107) mmol/L Carbon Dioxide (22-30) mmol/L Anion Gap mmol/L BUN (9-20) mg/dL Creatinine (0.66-1.25) mg/dL Est GFR (CKD-EPI)AfAm (>60 ml/min/1.73 sqM) Est GFR (CKD-EPI)NonAf (>60 ml/min/1.73 sqM) Glucose (74-99) mg/dL Calcium (8.4-10.2) mg/dL Phosphorus 3.8 (2.5-4.5) mg/dL Magnesium 1.6 (1.6-2.3) mg/dL Total Bilirubin (0.2-1.3) mg/dL AST (17-59) U/L ALT (21-72) U/L Alkaline Phosphatase (38-126) U/L Total Protein (6.3-8.2) g/dL Albumin (3.5-5.0) g/dL Amylase (30-110) U/L Lipase (23-300) U/L Urine Color Urine Appearance (Clear) Urine pH (5.0-8.0) Ur Specific Nelson (1.001-1.035) Urine Protein (Negative) Urine Glucose (UA) (Negative) Urine Ketones (Negative) Urine Blood (Negative) Urine Nitrite (Negative) Urine Bilirubin (Negative) Urine Urobilinogen (<2.0) mg/dL Ur Leukocyte Esterase (Negative) Serum Alcohol <10 mg/dL Disposition Clinical Impression: Pancreatitis, Acute on chronic pancreatitis, Hyperglycemia, New onset type 2 diabetes mellitus Disposition: ADMITTED IP TO THIS HOSP Condition: Fair Is patient prescribed a controlled substance at d/c from ED?: No Referrals: None,Stated [Primary Care Provider] - 1-2 days
[2018-10-28 14:20] LABS: Appearance,Urine Clear (Clear); Basophils # (A) 0.1 k/uL (0-0.2); Basophils % (A) 1 %; Bilirubin,Urine Negative (Negative); Blood,Urine Negative (Negative); Color,Urine Light Yellow; Eosinophils # (A) 0.2 k/uL (0-0.7); Eosinophils % (A) 3 %; Glucose,Urine (UA) 4+ (Negative); HCT 38.8 % (39.0-53.0); HGB 12.6 gm/dL (13.0-17.5); Ketones,Urine Negative (Negative); Leukocyte Esterase,Urine Negative (Negative); Lymphocytes # (A) 1.8 k/uL (1.0-4.8); Lymphocytes % (A) 20 %; MCHC 32.6 g/dL (31.0-37.0); MCV 85.9 fL (80.0-100.0); Mean Platelet Volume 9.7; Monocytes # (A) 0.3 k/uL (0-1.0); Monocytes % (A) 4 %; Neutrophils # (A) 6.1 k/uL (1.3-7.7); Neutrophils % (A) 71 %; Nitrite,Urine Negative (Negative); Platelet Count 154 k/uL (150-450); Protein,Urine Negative (Negative); RBC 4.51 m/uL (4.30-5.90); RDW 14.4 % (11.5-15.5); Specific Gravity,Urine 1.035 (1.001-1.035); Urobilinogen,Urine <2.0 mg/dL (<2.0); WBC 8.6 k/uL (3.8-10.6)
[2018-10-28 14:22] LABS: Alcohol <10 mg/dL; Magnesium 1.6 mg/dL (1.6-2.3); Phosphorus 3.8 mg/dL (2.5-4.5)
[2018-10-28 14:23] LABS: ALT 34 U/L (21-72); AST 34 U/L (17-59); African American GFR (CKD) >90 (>60 ml/min/1.73 sqM); Albumin 4.1 g/dL (3.5-5.0); Alkaline Phosphatase 249 U/L (38-126); Amylase 44 U/L (30-110); Anion Gap 12 mmol/L; Blood Urea Nitrogen 7 mg/dL (9-20); Calcium 9.2 mg/dL (8.4-10.2); Carbon Dioxide 25 mmol/L (22-30); Chloride 93 mmol/L (98-107); Lipase 144 U/L (23-300); Potassium 3.7 mmol/L (3.5-5.1); Sodium 130 mmol/L (137-145); Total Bilirubin 0.5 mg/dL (0.2-1.3); Total Protein 6.7 g/dL (6.3-8.2)
[2018-10-28 14:38] LABS: Glucose 658 mg/dL (74-99)
[2018-10-28] MEDS ORDERED: INSULIN REGULAR 100 UNIT/ML VIAL IV ONE (15:02)
[2018-10-28] MEDS ORDERED: MORPHINE SULFATE 4 MG/ML SYRINGE IVP PRN (15:04)
[2018-10-28] MEDS ORDERED: ONDANSETRON 4 MG/2 ML VIAL IVP PRN (15:04)
[2018-10-28 15:21] LABS: Glucose,Whole Blood 483 mg/dL (75-99)
[2018-10-28 16:29] LABS: Glucose,Whole Blood 239 mg/dL (75-99)
[2018-10-28 17:01] LABS: Glucose,Whole Blood 214 mg/dL (75-99)
[2018-10-28] MEDS: INSULIN ASPART (NovoLOG) 100 UNIT/ML VIAL SQ SCH (17:16)
[2018-10-28] MEDS ORDERED: ACETAMINOPHEN TAB 325 MG TAB PO PRN (17:18)
[2018-10-28] MEDS ORDERED: NALOXONE 0.4 MG/ML 1 ML VIAL IV PRN (17:18)
[2018-10-28 17:24] VITALS: BMI 31.8
[2018-10-28] MEDS: HYDROcodone/APAP 5-325MG 1 EACH TAB PO PRN (18:02)
--- NOTE | 2018-10-28 18:15 | P.HPIM ---
History of Present Illness H&P Date: 10/28/18 Chief Complaint: Acute on chronic pancreatitis, hyperglycemia 43-year-old male with PMH of hepatitis C, COPD, history of IV drug use, chronic necrotizing pancreatitis complicated with pseudocyst presents to the ED for abdominal pain. Patient reports abdominal pain that has been ongoing for the past 2-1/2 years. He was initially diagnosed with necrotizing pancreatitis and was transferred to [facility] for drainage of the pseudocyst at that time. Patient was recently se en in 2018 at [facility] and had drainage of the pseudocyst. Since his diagnosis, patient complains of chronic abdominal pain that comes and goes, worsened with food intake. Pain can get aggravated to the point where he has to come to the hospital 1-2 times a week for pain control. Patient states that he has generally been feeling well, last hospital visit was 4-5 months ago. Pain is 8 out of 10 in severity currently, stabbing in nature and nonradiating. Patient also reports frequent urination. States that he needs to use the washroom every 15 minutes and is able to empty his bladder completely. Mom noticed that the patient was confused over the last day with slurred speech and thought that he was "buzzed off Xanax". Patient denies any headache, lower extremity edema, nausea or vomiting, fever or chills, cough, chest pain, shortness of breath, changes in bowel habits. No changes in appetite or weight. Patient denies any dizziness, numbness/weakness/tingling of the extremities. Patient reports a history of hepatitis C for which he received interferon for one year and was told that his viral load was too low for further treatment. Patient also reports being off of drugs over the last couple of years, currently on Suboxone takes a full tablet at midnight, half tablet at 11 AM and half tablet at 3 PM. In the ED, vital signs were stable. CBC showed an anemia with hemoglobin of 12.6. CMP showed a sodium of 1:30, chloride of 93, glucose of 658. Urinalysis showed 4+ glucose. Serum alcohol was negative. Amylase and lipase was within normal limits. Patient is admitted for hyperglycemia and abdominal pain. Review of Systems Pertinent positives and negatives as discussed in HPI, a complete review of systems was performed and all other systems are negative. Past Medical History Past Medical History: COPD, Musculoskeletal Disorder, Seizure Disorder Additional Past Medical History / Comment(s): History of seizures-per patient, his last seizure 2011, Hepatitis C, history of IV drug use, history of crack cocaine use, Degenerative disc disease in back, possible arthritis in knees, hips and arms, History of chronic pancreatitis, pancreatic pseudocyst formation, cyst on pancreas History of Any Multi-Drug Resistant Organisms: None Reported Past Surgical History: Appendectomy, Cholecystectomy Additional Past Surgical History / Comment(s): RK eye surgery-1998, drain for pancreatitis, RT LUNG THOROSCOPIC DECOTICATION, partial gastrectomy/removal of pancreatic psuedocyst and lysis of adhesions 12-16-2017 Past Anesthesia/Blood Transfusion Reactions: No Reported Reaction Past Psychological History: Bipolar, Depression Smoking Status: Current every day smoker Past Alcohol Use History: None Reported Additional Past Alcohol Use History / Comment(s): Patient reports he drinks approximately 4 times a year-last drink per patient was this passed wednesday. Past Drug Use History: None Reported Additional Drug Use History / Comment(s): STATES NO CURRENT USE - Past Family History Brother(s) Additional Family Medical History / Comment(s): Chronic alcoholism Sister(s) Additional Family Medical History / Comment(s): Chronic alcoholism Daughter(s) Additional Family Medical History / Comment(s): One daughter healthy Son(s) Additional Family Medical History / Comment(s): One son healthy Father History Unknown: Yes Family Medical History: AICD/Pacemaker, Myocardial Infarction ([place]) Additional Family Medical History / Comment(s): Schizophrenia. Per patient, his father at the age of 59 Mother History Unknown: Yes Family Medical History: No Reported History Additional Family Medical History / Comment(s): HPV Medications and Allergies Home Medications Medication Instructions Recorded Confirmed Type Mirtazapine [Remeron] 15 mg PO HS 11/23/16 10/28/18 History lamoTRIgine [LaMICtal] 100 mg PO BID 03/13/17 10/28/18 History OLANZapine [ZyPREXA] 10 mg PO HS 03/28/18 10/28/18 History Buprenorphine HCl/Naloxone HCl 1 tab SL DAILY 04/17/18 10/28/18 History [Buprenorphin-Naloxon 8-2 mg Sl] Allergies Allergy/AdvReac Type Severity Reaction Status Date / Time codeine Allergy Swelling Verified 10/28/18 15:02 furosemide [From Lasix] Allergy Rash/Hives Verified 10/28/18 15:02 haloperidol [From Haldol] Allergy Unknown Verified 10/28/18 15:02 prochlorperazine Allergy Swelling Verified 10/28/18 15:02 lactose AdvReac Diarrhea Verified 10/28/18 15:02 Physical Exam Vitals: Vital Signs Temp Pulse Pulse Resp BP BP Pulse Ox 10/28/18 16:43 97.3 F L 77 18 124/79 97 10/28/18 15:28 87 18 117/70 99 10/28/18 13:53 98.1 F 104 H 20 141/70 95 Intake and Output 10/28/18 10/28/18 10/28/18 06:59 14:59 22:59 Other: Weight 100.834 kg General: [non toxic], [no distress], [appears at stated age] Derm: [warm], [dry] Head: [atraumatic], [normocephalic], [symmetric] Eyes: [EOMI], [no lid lag], [anicteric sclera] Mouth: [no lip lesion], [mucus membranes moist] Cardiovascular: [S1S2 reg], [no murmur], [positive DP pulse bilateral], Lungs: [CTA bilateral], [no rhonchi, no rales] , [no accessory muscle use] Abdominal: [soft], [tenderness to palpation of the left upper and lower quadrant without rebound, Dahl's negative], [no guarding], [no appreciable organomegaly] Ext: [no gross muscle atrophy], [no edema], [no contractures] Neuro: [ CN II-XI grossly intact], [no focal neuro deficits] Psych: [Alert], [oriented], [appropriate affect] Results CBC & Chem 7: 10/28/18 14:00 10/28/18 14:00 Labs: Abnormal Lab Results - Last 24 Hours (Table) 10/28/18 10/28/18 10/28/18 Range/Units 14:00 14:00 14:00 Hgb 12.6 L (13.0-17.5) gm/dL Hct 38.8 L (39.0-53.0) % Sodium 130 L (137-145) mmol/L Chloride 93 L (98-107) mmol/L BUN 7 L (9-20) mg/dL Creatinine 0.53 L (0.66-1.25) mg/dL Glucose 658 H* (74-99) mg/dL POC Glucose (mg/dL) (75-99) mg/dL Alkaline Phosphatase 249 H (38-126) U/L Urine Glucose (UA) 4+ H (Negative) 10/28/18 10/28/18 10/28/18 Range/Units 15:20 16:27 17:00 Hgb (13.0-17.5) gm/dL Hct (39.0-53.0) % Sodium (137-145) mmol/L Chloride (98-107) mmol/L BUN (9-20) mg/dL Creatinine (0.66-1.25) mg/dL Glucose (74-99) mg/dL POC Glucose (mg/dL) 483 H 239 H 214 H (75-99) mg/dL Alkaline Phosphatase (38-126) U/L Urine Glucose (UA) (Negative) Thrombosis Risk Factor Assmnt - Choose All That Apply Each Factor Represents 1 point: Abnormal pulmonary function (COPD), Age 41-60 years, Obesity (BMI >25) Thrombosis Risk Factor Assessment Total Risk Factor Score: 3 Thrombosis Risk Factor Assessment Level: Moderate Risk Assessment and Plan Assessment: Acute metabolic encephalopathy likely secondary to hyperglycemia, resolving Hyperglycemia, possibly from type 2 diabetes mellitus or chronic pancreatitis with normal anion gap Acute on chronic pancreatitis Hyponatremia History of hepatitis C History of IV drug use Bipolar disorder and depression Lasted for 1 day as per mom. Likely secondary to hyperglycemia. Plans: Fall and seizure precautions. Check ammonia level. Control blood glucose. Blood glucose on admission 658. [id number] glucose 214. Has family history of diabetes. Has a history of necrotizing pancreatitis with pseudocyst formation. Plans: Insulin sliding scale. Levemir 10 units at bedtime. Regular Accu-Cheks. Hypoglycemic precautions. Follow A1c. Patient reports abdominal pain that is similar to previous episodes of chronic pancreatitis. Amylase and lipase is within normal limits. March 2018 CT abdomen and pelvis shows moderate-sized pseudocyst in the tail the pancreas. Plans: Continue normal saline at 100 mL/h. Zofran as needed for nausea or vomiting. Pain control with [place], Tylenol or morphine. Follow CT abdomen and pelvis. Sodium 130. Likely secondary to hyperglycemia. Plans: Daily BMP. Patient reports being treated with interferon for one year. Does not follow in the outpatient setting. Plans: Follow hep C antibody. Will need adequate outpatient follow-up. Has been sober for the last 2 years. Plans: Continue Suboxone. Plans: Continue Zyprexa and Lamictal. Patient admitted for hypoglycemia, possible new onset diabetes mellitus. Found to have abdominal pain with history of necrotizing chronic pancreatitis complicated with pseudocyst. Patient is pending clinical improvement. Patient names his mom Nancy decision-maker in the case I can make decisions for himself. Patient reiterates wanting to remain full code at this time. DVT prophylaxis: [SCD boots] Discussed with: [Patient and mom] Anticipated discharge: [1-2 days] Anticipated discharge place: [Home] A total of [45] minutes was spent on the care of this complex patient more than 50% of the time was spent in counseling and care coordination.
--- NOTE | 2018-10-28 19:44 | CT ---
EXAMINATION TYPE: CT abdomen pelvis w con DATE OF EXAM: 10/28/2018 COMPARISON: 04/07/2018 HISTORY: Chronic pancreatitis. CT DLP: 1477.2 mGycm Automated exposure control for dose reduction was used. TECHNIQUE: Helical acquisition of images was performed from the lung bases through the pelvis. CONTRAST: Performed without Oral Contrast and with IV Contrast, patient injected with 100ml mL of Isovue 300. FINDINGS: There is patchy mild subsegmental atelectasis at the lung bases. There is no pericardial effusion. Th ere is no pleural effusion. There is diffuse fatty infiltration of the liver. Stomach has normal size . There are apparent surgical clips at the greater curvature of the stomach. The spleen is large and measures 16.5 cm. There is mild fat stranding around the tail of the pancreas. I see no discrete panc reatic mass. The bile ducts are not dilated. There is a clip from cholecystectomy. There is no adrenal mass. Kidneys show satisfactory contrast opacification. There is no hydronephrosi s. Ureters are not dilated. There is no retroperitoneal adenopathy. Bladder distends smoothly. There is no inguinal hernia. There is no free fluid in the pelvis. There is no mesenteric edema. Appendix i s not seen. There is no sign of appendicitis. Lumbar spine is intact. Bony pelvis appears intact. There is no evidence of a pelvic mass. There is n o evidence of free air. There is no ascites. IMPRESSION: THERE IS SOME MILD FAT STRANDING AROUND THE TAIL OF THE PANCREAS. THIS IS CONSISTENT WITH CHRONIC BRAY CREATITIS. MOST OF THE PSEUDOCYST FLUID IS CLEARED AT THE TAIL OF THE PANCREAS COMPARED TO OLD EXAM. NO EVIDENCE OF ACUTE PANCREATITIS. STABLE SPLENOMEGALY.
[2018-10-28 20:27] LABS: Glucose,Whole Blood 456 mg/dL (75-99)
[2018-10-28] MEDS ORDERED: INSULIN ASPART (NovoLOG) 100 UNIT/ML VIAL SQ ONE ×2 (20:41→23:15)
[2018-10-28] MEDS ORDERED: INSULIN DETEMIR (LEVEMIR) 100 UNIT/ML SYR SQ SCH (21:00)
[2018-10-28] MEDS: NICOTINE 14MG/24HR PATCH TRANSDERM SCH (21:09)
[2018-10-28] MEDS: lamoTRIgine 100 MG TAB PO SCH (21:09)
[2018-10-28] MEDS: MIRTAZAPINE 15 MG TAB PO SCH (21:09)
[2018-10-28] MEDS: OLANZapine 10 MG TAB PO SCH (21:10)
[2018-10-28 23:06] LABS: Glucose,Whole Blood 432 mg/dL (75-99)
[2018-10-28] MEDS: BUPRENORPHINE HCL SUBLINGUAL SCH (23:38)
[2018-10-28] MEDS: NALOXONE HCL SUBLINGUAL SCH (23:38)
[2018-10-29 01:03] LABS: Glucose,Whole Blood 359 mg/dL (75-99)
[2018-10-29] MEDS ORDERED: INSULIN ASPART (NovoLOG) 100 UNIT/ML VIAL SQ ONE ×2 (01:27→20:43)
[2018-10-29 03:04] LABS: Glucose,Whole Blood 190 mg/dL (75-99)
[2018-10-29 06:54] LABS: Glucose,Whole Blood 121 mg/dL (75-99)
[2018-10-29] MEDS: INSULIN ASPART (NovoLOG) 100 UNIT/ML VIAL SQ SCH ×5 (06:55→16:43)
[2018-10-29] MEDS: lamoTRIgine 100 MG TAB PO SCH ×2 (07:04→20:50)
[2018-10-29] MEDS: NICOTINE 14MG/24HR PATCH TRANSDERM SCH (07:05)
[2018-10-29] MEDS: HYDROcodone/APAP 5-325MG 1 EACH TAB PO PRN ×3 (07:07→15:43)
[2018-10-29 08:43] LABS: African American GFR (CKD) >90 (>60 ml/min/1.73 sqM); Anion Gap 6 mmol/L; Blood Urea Nitrogen 7 mg/dL (9-20); Calcium 8.9 mg/dL (8.4-10.2); Carbon Dioxide 27 mmol/L (22-30); Chloride 108 mmol/L (98-107); Glucose 113 mg/dL (74-99); Potassium 3.3 mmol/L (3.5-5.1); Sodium 141 mmol/L (137-145)
[2018-10-29] MEDS ORDERED: BUPRENORPHINE HCL SL SCH (09:00)
[2018-10-29] MEDS ORDERED: NALOXONE HCL SL SCH (09:00)
[2018-10-29] MEDS ORDERED: POTASSIUM CHLORIDE ER 20 MEQ TAB.ER PO STA (09:54)
--- NOTE | 2018-10-29 10:21 | P.PN ---
Subjective Progress Note Date: 10/29/18 Principal diagnosis: Hyperglycemia Patient was seen and examined. No acute events overnight. Patient reports better controlled abdominal pain. He denies any chest pain, shortness of breath or palpitations. No nausea or vomiting. No fever or chills. Objective - Vital Signs Vital signs: Vital Signs Temp 97.5 F L 10/29/18 02:21 Pulse 75 10/29/18 07:45 Resp 15 10/29/18 07:45 BP 108/71 10/29/18 07:45 Pulse Ox 96 10/29/18 07:45 Intake & Output 10/28/18 10/29/18 10/29/18 18:59 06:59 18:59 Intake Total 320 480 240 Balance 320 480 240 Weight 100.834 kg Intake: Oral 320 480 240 Other: Voiding Method Toilet Toilet - Exam General: [non toxic], [no distress], [appears at stated age] Derm: [warm], [dry] Head: [atraumatic], [normocephalic], [symmetric] Eyes: [EOMI], [no lid lag], [anicteric sclera] Mouth: [no lip lesion], [mucus membranes moist] Cardiovascular: [S1S2 reg], [no murmur], [positive DP pulse bilateral] Lungs: [CTA bilateral], [no rhonchi, no rales] , [no accessory muscle use] Abdominal: [soft], [tenderness to palpation of the left upper and lower quadrant without rebound, which has improved from yesterday], [no guarding], [no appreciable organomegaly] Ext: [no gross muscle atrophy], [no edema], [no contractures] Neuro: [no focal neuro deficits] Psych: [Alert], [oriented], [appropriate affect] - Labs CBC & Chem 7: 10/28/18 14:00 10/29/18 06:55 Labs: Abnormal Lab Results - Last 24 Hours (Table) 10/28/18 10/28/18 10/28/18 Range/Units 14:00 14:00 14:00 Hgb 12.6 L (13.0-17.5) gm/dL Hct 38.8 L (39.0-53.0) % Sodium 130 L (137-145) mmol/L Potassium (3.5-5.1) mmol/L Chloride 93 L (98-107) mmol/L BUN 7 L (9-20) mg/dL Creatinine 0.53 L (0.66-1.25) mg/dL Glucose 658 H* (74-99) mg/dL POC Glucose (mg/dL) (75-99) mg/dL Alkaline Phosphatase 249 H (38-126) U/L Urine Glucose (UA) 4+ H (Negative) 10/28/18 10/28/18 10/28/18 Range/Units 15:20 16:27 17:00 Hgb (13.0-17.5) gm/dL Hct (39.0-53.0) % Sodium (137-145) mmol/L Potassium (3.5-5.1) mmol/L Chloride (98-107) mmol/L BUN (9-20) mg/dL Creatinine (0.66-1.25) mg/dL Glucose (74-99) mg/dL POC Glucose (mg/dL) 483 H 239 H 214 H (75-99) mg/dL Alkaline Phosphatase (38-126) U/L Urine Glucose (UA) (Negative) 10/28/18 10/28/18 10/29/18 Range/Units 20:24 23:03 01:01 Hgb (13.0-17.5) gm/dL Hct (39.0-53.0) % Sodium (137-145) mmol/L Potassium (3.5-5.1) mmol/L Chloride (98-107) mmol/L BUN (9-20) mg/dL Creatinine (0.66-1.25) mg/dL Glucose (74-99) mg/dL POC Glucose (mg/dL) 456 H 432 H 359 H (75-99) mg/dL Alkaline Phosphatase (38-126) U/L Urine Glucose (UA) (Negative) 10/29/18 10/29/18 10/29/18 Range/Units 03:02 06:52 06:55 Hgb (13.0-17.5) gm/dL Hct (39.0-53.0) % Sodium (137-145) mmol/L Potassium 3.3 L (3.5-5.1) mmol/L Chloride 108 H (98-107) mmol/L BUN 7 L (9-20) mg/dL Creatinine 0.49 L (0.66-1.25) mg/dL Glucose 113 H (74-99) mg/dL POC Glucose (mg/dL) 190 H 121 H (75-99) mg/dL Alkaline Phosphatase (38-126) U/L Urine Glucose (UA) (Negative) Assessment and Plan Assessment: Hyperglycemia, possibly from type 2 diabetes mellitus or chronic pancreatitis with normal anion gap Acute on chronic pancreatitis Hyponatremia History of hepatitis C History of IV drug use Bipolar disorder and depression Resolved: Acute metabolic encephalopathy likely secondary to hyperglycemia, hyponatremia Blood glucose on admission 658. [id number] glucose 121. Has family history of diabetes. Has a history of necrotizing pancreatitis with pseudocyst formation. Plans: Insulin sliding scale. Levemir 10 units at bedtime. Regular Accu-Cheks. Hypoglycemic precautions. Follow A1c. Patient reports abdominal pain that is similar to previous episodes of chronic pancreatitis. Amylase and lipase is within normal limits. March 2018 CT abdomen and pelvis shows moderate-sized pseudocyst in the tail the pancreas. CT abdomen and pelvis this admission shows fat stranding around the tail of the pancreas consistent with chronic pancreatitis, most of the pseudocyst fluid cleared and the tail of the pancreas. Plans: Continue normal saline at 100 mL/h. Zofran as needed for nausea or vomiting. Pain control with [place], Tylenol or morphine. Patient reports being treated with interferon for one year. Does not follow in the outpatient setting. Plans: Follow hep C antibody. Will need adequate outpatient follow-up. Has been sober for the last 2 years. Plans: Continue Suboxone. Plans: Continue Zyprexa and Lamictal. Patient admitted for hypoglycemia, possible new onset diabetes mellitus. Will continue to monitor blood glucose over the next 24H to assess for insulin requirements. Possible DC tomorrow.
[2018-10-29] MEDS: BUPRENORPHINE SUBLINGUAL SCH ×2 (10:25→15:43)
[2018-10-29] MEDS: NALOXONE SUBLINGUAL SCH ×2 (10:25→15:43)
[2018-10-29 11:33] LABS: Glucose,Whole Blood 496 mg/dL (75-99)
[2018-10-29 14:17] LABS: Glucose,Whole Blood 353 mg/dL (75-99)
[2018-10-29 16:26] LABS: Glucose,Whole Blood 256 mg/dL (75-99)
[2018-10-29 20:23] LABS: Glucose,Whole Blood 363 mg/dL (75-99)
[2018-10-29 20:37] LABS: Hemoglobin A1C 15.3 % (4.0-6.0)
[2018-10-29] MEDS: OLANZapine 10 MG TAB PO SCH (20:50)
[2018-10-29] MEDS: MIRTAZAPINE 15 MG TAB PO SCH (20:50)
[2018-10-29] MEDS ORDERED: INSULIN DETEMIR (LEVEMIR) 100 UNIT/ML SYR SQ SCH (21:00)
[2018-10-29 23:01] LABS: Glucose,Whole Blood 290 mg/dL (75-99)
[2018-10-30] MEDS: NALOXONE HCL SUBLINGUAL SCH (01:31)
[2018-10-30] MEDS: BUPRENORPHINE HCL SUBLINGUAL SCH (01:31)
[2018-10-30 01:57] LABS: Glucose,Whole Blood 298 mg/dL (75-99)
[2018-10-30 07:02] LABS: Glucose,Whole Blood 359 mg/dL (75-99)
[2018-10-30] MEDS: HYDROcodone/APAP 5-325MG 1 EACH TAB PO PRN ×2 (07:05→11:08)
[2018-10-30] MEDS: INSULIN ASPART (NovoLOG) 100 UNIT/ML VIAL SQ SCH ×4 (07:06→11:48)
[2018-10-30] MEDS: lamoTRIgine 100 MG TAB PO SCH (07:06)
[2018-10-30] MEDS: NICOTINE 14MG/24HR PATCH TRANSDERM SCH (07:08)
[2018-10-30 07:29] VITALS: BP 137/78; PULSE 90; RESP 16; TEMP 97.9
--- NOTE | 2018-10-30 08:29 | P.DS ---
Providers Date of admission: 10/28/18 15:02 Expected date of discharge: 10/30/18 Attending physician: Thomas Lamb MD Primary care physician: Stated None Hospital Course: 43-year-old male with PMH of hepatitis C, COPD, history of IV drug use, chronic necrotizing pancreatitis complicated with pseudocyst presents to the ED for abdominal pain. Patient reports abdominal pain that has been ongoing for the past 2-1/2 years. He was initially diagnosed with necrotizing pancreatitis and was transferred to [facility] for drainage of the pseudocyst at that time. Patient was recently seen in 2018 at [facility] and had drainage of the pseudocyst. Since his diagnosis, patient complains of chronic abdominal pain that comes and goes, worsened with food intake. Pain can get aggravated to the point where he has to come to the hospital 1-2 times a week for pain control. Patient states that he has generally been feeling well, last hospital visit was 4-5 months ago. Pain is 8 out of 10 in severity currently, stabbing in nature and nonradiating. Patient also reports frequent urination. States that he needs to use the washroom every 15 minutes and is able to empty his bladder completely. Mom noticed that the patient was confused over the last day with slurred speech and thought that he was "buzzed off Xanax". Patient denies any headache, lower extremity edema, nausea or vomiting, fever or chills, cough, chest pain, shortness of breath, changes in bowel habits. No changes in appetite or weight. Patient denies any dizziness, numbness/weakness/tingling of the extremities. Patient reports a history of hepatitis C for which he received interferon for one year and was told that his viral load was too low for further treatment. Patient also reports being off of drugs over the last couple of years, currently on Suboxone takes a full tablet at midnight, half tablet at 11 AM and half tablet at 3 PM. In the ED, vital signs were stable. CBC showed an anemia with hemoglobin of 12.6. CMP showed a sodium of 1:30, chloride of 93, glucose of 658. Urinalysis showed 4+ glucose. Serum alcohol was negative. Amylase and lipase was within normal limits. Patient is admitted for hyperglycemia and abdominal pain. Patient had a blood glucose of 658 on admission. Patient reported a family history of diabetes. Patient reported a history of necrotizing pancreatitis with pseudocyst formation. Patient was initially started on Levemir 10 units at bedtime. His Levemir was increased to 15 units on day 2, 5 units NovoLog with meals along with sliding scale. His blood sugars ranged from 290-363 after the insulin adjustment. Patient was given an additional 28 units on sliding scale. Patient was also admitted for acute on chronic pancreatitis. Amylase and lipase was within normal limits. Patient is computed tomography scan from March 2018 which showed moderate-sized pseudocyst and the pigtail of the pancreas. CT of the abdomen and pelvis this admission showed fat stranding around the tail of the pancreas consistent with chronic pancreatitis, most of the pseudocyst fluid cleared from the tail of the pancreas. He was given Zofran for nausea or vomiting. Pain was controlled with Hadley, Tylenol or morphine. Patient was hydrated with normal saline. Patient was seen and examined prior to discharge. No acute events overnight. Patient reports significant improvement in his abdominal pain. Tolerating diet well. No nausea or vomiting. No chest pain, shortness of breath or palpitations. General: [non toxic], [no distress], [appears at stated age] Derm: [warm], [dry] Head: [atraumatic], [normocephalic], [symmetric] Eyes: [EOMI], [no lid lag], [anicteric sclera] Mouth: [no lip lesion], [mucus membranes moist] Cardiovascular: [S1S2 reg], [no murmur], [positive DP pulse bilateral] Lungs: [CTA bilateral], [no rhonchi, no rales] , [no accessory muscle use] Abdominal: [soft], [no tenderness to palpation], [no guarding], [no appreciable organomegaly] Ext: [no gross muscle atrophy], [no edema], [no contractures] Neuro: [no focal neuro deficits] Psych: [Alert], [oriented], [appropriate affect] Hyperglycemia, possibly from type 2 diabetes mellitus or chronic pancreatitis with normal anion gap Acute on chronic pancreatitis Hyponatremia History of hepatitis C History of IV drug use Bipolar disorder and depression Resolved: Acute metabolic encephalopathy likely secondary to hyperglycemia, hyponatremia Blood glucose on admission 658. [id number] glucose 359. Has family history of diabetes. Has a history of necrotizing pancreatitis with pseudocyst formation. A1c is 15.3. Plans: Insulin sliding scale. Levemir 15 units at bedtime along with NovoLog 5 units 3 times a day. Regular Accu-Cheks. Hypoglycemic precautions. Patient reports abdominal pain that is similar to previous episodes of chronic pancreatitis. Amylase and lipase is within normal limits. March 2018 CT abdomen and pelvis shows moderate-sized pseudocyst in the tail the pancreas. CT abdomen and pelvis this admission shows fat stranding around the tail of the pancreas consistent with chronic pancreatitis, most of the pseudocyst fluid cleared and the tail of the pancreas. Plans: Continue normal saline at 100 mL/h. Zofran as needed for nausea or vomiting. Pain control with Hadley, Tylenol or morphine. Patient reports being treated with interferon for one year. Does not follow in the outpatient setting. Plans: Follow hep C antibody. Will need adequate outpatient follow-up. Will give appointment with infectious disease. Has been sober for the last 2 years. Plans: Continue Suboxone. Plans: Continue Zyprexa and Lamictal. Patient admitted for hypoglycemia, possible new onset diabetes mellitus. We will readjust insulin. Initially dosed on 0.3 units/kg, we will increase that to 0.5 units/kg given his high blood glucose. Plans to DC patient on Levemir 25 units and Novolog 10 units TID. Will discuss with RN regarding insulin teaching. Will discuss with BARBARA regarding insulin supplies. Patient advised of hypoglycemic symptoms. DC today with close follow up with PCP. Pertinent Studies: CT abdomen and pelvis Patient Condition at Discharge: Fair Plan - Discharge Summary Discharge Rx Participant: Yes New Discharge Prescriptions: New Alcohol Antiseptic Pads [Alcohol Swabs] 1 each PC-TID #90 med..pad Syringe and Needle,Insulin,1Ml [Insulin Syringe 29G 1/2" 1ml] 1 syr SQ QID #120 syr Lancets 1 each PC-TID #90 each Insulin Detemir (Levemir) [Levemir] 25 unit SQ HS #8 syr INSULIN ASPART (NovoLOG) [NovoLOG (formulary)] 10 unit SQ AC-TID #9 vial Blood Sugar Diagnostic [Test Strips] 1 each PC-TID #90 strip Continue Mirtazapine [Remeron] 15 mg PO HS lamoTRIgine [LaMICtal] 100 mg PO BID OLANZapine [ZyPREXA] 10 mg PO HS Buprenorphine HCl/Naloxone HCl [Buprenorphin-Naloxon 8-2 mg Sl] 1 tab SL DAILY Discharge Medication List Mirtazapine [Remeron] 15 mg PO HS 11/23/16 [History] lamoTRIgine [LaMICtal] 100 mg PO BID 03/13/17 [History] OLANZapine [ZyPREXA] 10 mg PO HS 03/28/18 [History] Buprenorphine HCl/Naloxone HCl [Buprenorphin-Naloxon 8-2 mg Sl] 1 tab SL DAILY 04/17/18 [History] Alcohol Antiseptic Pads [Alcohol Swabs] 1 each TP PC-TID #90 med..pad 10/30/18 [Rx] Blood Sugar Diagnostic [Test Strips] 1 each MC PC-TID #90 strip 10/30/18 [Rx] INSULIN ASPART (NovoLOG) [NovoLOG (formulary)] 10 unit SQ AC-TID #9 vial 10/30/18 [Rx] Insulin Detemir (Levemir) [Levemir] 25 unit SQ HS #8 syr 10/30/18 [Rx] Lancets 1 each PC-TID #90 each 10/30/18 [Rx] Syringe and Needle,Insulin,1Ml [Insulin Syringe 29G 1/2" 1ml] 1 syr SQ QID #120 syr 10/30/18 [Rx] Follow up Appointment(s)/Referral(s): None,Stated [Primary Care Provider] - 1-2 days Gato De Leon MD [STAFF PHYSICIAN] - 1 Week Latoya Ryan MD [STAFF PHYSICIAN] - 1 Week Bandar White MD [STAFF PHYSICIAN] - 1 Week Activity/Diet/Wound Care/Special Instructions: Diet: Diabetic diet Follow-up with PCP within 1-2 days of discharge. You will need adjustments in your insulin. Follow-up with endocrinology within 1 week of discharge. You will need adjustments in your insulin. Follow-up with GI within 1 week of discharge. Regarding history of chronic pancreatitis with history of pseudocyst formation. Follow-up with infectious disease within 1 week of discharge. Regarding her history of hepatitis C. Please take all medications as advised. Please make sure you check your blood sugars 4 times a day. Please be advised of warning symptoms of hypoglycemia, shakiness, dizziness, sweating, irritability, palpitations. Discharge Disposition: HOME SELF-CARE
[2018-10-30] MEDS: BUPRENORPHINE SUBLINGUAL SCH (09:36)
[2018-10-30] MEDS: NALOXONE SUBLINGUAL SCH (09:36)
[2018-10-30 10:17] LABS: Glucose,Whole Blood 451 mg/dL (75-99)
[2018-10-30] MEDS ORDERED: INSULIN ASPART (NovoLOG) 100 UNIT/ML VIAL SQ ONE (10:26)
[2018-10-30 11:28] LABS: Glucose,Whole Blood 387 mg/dL (75-99)
[2018-10-30 13:08] LABS: Glucose,Whole Blood 254 mg/dL (75-99)
[2018-10-31 14:28] LABS: LOG HCV IU/mL <1.08 (<1.08)
== END 2018-10-30 14:53 | disposition home or self-care (01) ==
LOC: EC 13:30 → 4SSUR 15:02
PROVIDERS: ADMIT Family Medicine; ATTEND Family Medicine
DX: R73.9 Hyperglycemia, unspecified (principal); G93.41 Metabolic encephalopathy; K85.90 Acute pancreatitis without necrosis or infection, unspecified; K86.1 Other chronic pancreatitis; B19.20 Unspecified viral hepatitis C without hepatic coma; E87.1 Hypo-osmolality and hyponatremia; J44.9 Chronic obstructive pulmonary disease, unspecified; G40.909 Epilepsy, unspecified, not intractable, without status epilepticus; D64.9 Anemia, unspecified; E66.9 Obesity, unspecified; Z68.31 Body mass index [BMI] 31.0-31.9, adult; R35.0 Frequency of micturition; F31.9 Bipolar disorder, unspecified; F17.200 Nicotine dependence, unspecified, uncomplicated; K86.3 Pseudocyst of pancreas; Z79.899 Other long term (current) drug therapy; Z91.011 Allergy to milk products; Z88.5 Allergy status to narcotic agent; Z88.8 Allergy status to other drugs, medicaments and biological substances; Z87.898 Personal history of other specified conditions; Z90.49 Acquired absence of other specified parts of digestive tract; Z81.8 Family history of other mental and behavioral disorders; Z82.49 Family history of ischemic heart disease and other diseases of the circulatory system; Z83.3 Family history of diabetes mellitus; Z81.1 Family history of alcohol abuse and dependence; Z83.1 Family history of other infectious and parasitic diseases
CPT/HCPCS: 96361 ×3; 96374; 96375; 99285; 36415; 86803; 87522; 80053; 80048; 82140; 82150; 83690; 83735; 84100; 84132; 85025; 81003; 83036; 74177; G0378 ×3; G0480; S4990 ×3; J2270; J2405; C9113; Q9967; 80320

== ENCOUNTER → 2018-11-09 | Outpatient (CLI) | payer MEDICARE | END | disposition home or self-care (01) | LOC: LABWHC1 14:15 | PROVIDERS: ATTEND Internal Medicine Endocrinology, Diabetes & Metabolism | DX: E11.65 Type 2 diabetes mellitus with hyperglycemia (principal); K21.9 Gastro-esophageal reflux disease without esophagitis; R53.83 Other fatigue; Z11.3 Encounter for screening for infections with a predominantly sexual mode of transmission; Z13.0 Encounter for screening for diseases of the blood and blood-forming organs and certain disorders involving the immune mechanism | CPT/HCPCS: 36415; 82607; 82947; 84443; 84681; 87661 ==

== ENCOUNTER → 2018-12-27 | Outpatient (CLI) | payer MEDICARE ==
[2018-12-27 09:39] LABS: Basophils # (A) 0.1 k/uL (0-0.2); Basophils % (A) 1 %; Eosinophils # (A) 0.3 k/uL (0-0.7); Eosinophils % (A) 5 %; HCT 40.5 % (39.0-53.0); HGB 12.7 gm/dL (13.0-17.5); Lymphocytes # (A) 1.6 k/uL (1.0-4.8); Lymphocytes % (A) 27 %; MCH 28.1 pg (25.0-35.0); MCHC 31.3 g/dL (31.0-37.0); MCV 89.8 fL (80.0-100.0); Mean Platelet Volume 9.3; Monocytes # (A) 0.4 k/uL (0-1.0); Monocytes % (A) 6 %; Neutrophils # (A) 3.6 k/uL (1.3-7.7); Neutrophils % (A) 60 %; Platelet Count 112 k/uL (150-450); RBC 4.51 m/uL (4.30-5.90); RDW 14.6 % (11.5-15.5)
== END | disposition home or self-care (01) ==
LOC: LABPAT 07:52
PROVIDERS: ATTEND Surgery
DX: Z01.812 Encounter for preprocedural laboratory examination (principal); K43.2 Incisional hernia without obstruction or gangrene
CPT/HCPCS: 85025

== ENCOUNTER → 2019-01-02 | Outpatient (CLI) | payer MEDICARE ==
[2019-01-02 09:06] LABS: INR 0.9 (<1.2); Partial Thromboplastin Time 24.5 sec (22.0-30.0); Prothrombin Time 10.2 sec (9.0-12.0)
[2019-01-02 09:08] LABS: Albumin 4.5 g/dL (3.5-5.0); Potassium 3.9 mmol/L (3.5-5.1)
== END | disposition home or self-care (01) ==
LOC: LABPAT 07:39
PROVIDERS: ATTEND Anesthesiology
DX: Z01.810 Encounter for preprocedural cardiovascular examination (principal); Z01.812 Encounter for preprocedural laboratory examination; B18.2 Chronic viral hepatitis C; K43.2 Incisional hernia without obstruction or gangrene
CPT/HCPCS: 36415; 80051; 82040; 85610; 85730; 93005

== ENCOUNTER 2019-01-05 07:26 | Day surgery (SDC) | payer MEDICARE ==
[~2019-01-05 07:26] MED LIST changes: -DEXAMETHASONE SOD PHOSPHATE 10 MG/ML 1 ML VIAL IV ONE; -LACTATED RINGERS 1,000 ML IV SCH; -ONDANSETRON 4 MG/2 ML VIAL IVP ONE; -ceFAZolin IN SWFI 2 GM/20 ML SYRINGE IVP ONE
[2019-01-05 08:17] LABS: Glucose,Whole Blood 135 mg/dL (75-99)
[2019-01-05] MEDS ORDERED: LACTATED RINGERS 1,000 ML IV ONE ×4 (08:17→10:53)
[2019-01-05] MEDS ORDERED: fentaNYL (PF) 50 MCG/ML 2 ML AMP IV ONE (08:33)
[2019-01-05] MEDS ORDERED: MIDAZOLAM (PF) 2 MG/2 ML VIAL IV ONE (08:33)
--- NOTE | 2019-01-05 08:39 | P.GSHP ---
History of Present Illness H&P Date: 01/05/19 Chief Complaint: Incisional hernia This a 43-year-old male has developed an incisional hernia after laparotomy. Patient rents today for open repair with mesh. Past Medical History Past Medical History: COPD, Musculoskeletal Disorder, Seizure Disorder Additional Past Medical History / Comment(s): History of seizures-per patient, his last seizure 2011, Hepatitis C, history of IV drug use, history of crack [place] use, Degenerative disc disease in back, possible arthritis in knees, hips and arms, History of chronic pancreatitis, pancreatic pseudocyst formation, cyst on pancreas History of Any Multi-Drug Resistant Organisms: None Reported Past Surgical History: Appendectomy, Cholecystectomy Additional Past Surgical History / Comment(s): RK eye surgery-1998, drain for pancreatitis, RT LUNG THOROSCOPIC DECOTICATION, partial gastrectomy/removal of pancreatic psuedocyst and lysis of adhesions 12-16-2017 Past Anesthesia/Blood Transfusion Reactions: No Reported Reaction Additional Past Alcohol Use History / Comment(s): Patient reports he drinks approximately 4 times a year-last drink per patient was this passed wednesday. Past Drug Use History: None Reported Additional Drug Use History / Comment(s): STATES NO CURRENT USE - Past Family History Brother(s) Additional Family Medical History / Comment(s): Chronic alcoholism Sister(s) Additional Family Medical History / Comment(s): Chronic alcoholism Daughter(s) Family Medical History: No Reported History Additional Family Medical History / Comment(s): One daughter healthy Son(s) Family Medical History: No Reported History Additional Family Medical History / Comment(s): One son healthy Father History Unknown: Yes Family Medical History: AICD/Pacemaker, Myocardial Infarction ([place]) Additional Family Medical History / Comment(s): Schizophrenia. Per patient, his father at the age of 59 Mother History Unknown: Yes Family Medical History: No Reported History Additional Family Medical History / Comment(s): HPV Medications and Allergies Home Medications Medication Instructions Recorded Confirmed Type Mirtazapine [Remeron] 15 mg PO HS 11/23/16 01/05/19 History lamoTRIgine [LaMICtal] 100 mg PO BID 03/13/17 01/05/19 History OLANZapine [ZyPREXA] 10 mg PO HS 03/28/18 01/05/19 History Buprenorphine HCl/Naloxone HCl 1 film SL BID 04/17/18 01/05/19 History [Buprenorphin-Naloxon 8-2 mg Sl] INSULIN ASPART (NovoLOG) [NovoLOG 14 unit SQ AC-TID 11/09/18 01/05/19 History (formulary)] Famotidine [Pepcid AC] 20 mg PO HS 12/29/18 01/05/19 History Insulin Glargine [Lantus] 50 unit SQ HS 12/29/18 01/05/19 History metFORMIN HCL [Glucophage] 500 mg PO BID 12/29/18 01/05/19 History Allergies Allergy/AdvReac Type Severity Reaction Status Date / Time codeine Allergy Swelling Verified 01/05/19 07:36 furosemide [From Lasix] Allergy Rash/Hives Verified 01/05/19 07:36 haloperidol [From Haldol] Allergy Unknown Verified 01/05/19 07:36 prochlorperazine Allergy Swelling Verified 01/05/19 07:36 lactose AdvReac Diarrhea Verified 01/05/19 07:36 Surgical - Exam Vital Signs Temp Pulse Resp BP Pulse Ox 98.4 F 87 16 117/69 96 01/05/19 07:44 01/05/19 07:44 01/05/19 07:44 01/05/19 07:44 01/05/19 07:44 - General well developed, no distress - Eyes PERRL - ENT normal pinna - Neck no masses - Respiratory normal expansion - Cardiovascular Rhythm: regular - Abdomen Abdomen: soft, non tender Hernia: incisional (Large incisional hernia located on epigastric scar) Results - Labs Abnormal Lab Results - Last 24 Hours (Table) 01/05/19 Range/Units 08:00 POC Glucose (mg/dL) 135 H (75-99) mg/dL Assessment and Plan Assessment: Incisional hernia. We'll perform open repair.
[2019-01-05] MEDS ORDERED: HEPARIN SODIUM,PORCINE 5,000 UNIT/ML 1 ML VIAL IV ONE (09:01)
--- NOTE | 2019-01-05 10:24 | P.ANPRN ---
Procedure Note - Anesthesia - Nerve Block Performed Bilateral Rectus Abdominis Single Time Out Performed: Yes Date of Procedure: 01/05/19 Location of Patient Procedure: PreOp Indication: Acute Post-Operative Pain Specifically requested for management of pain by DrVale: Donny Hicks Sedation Type: Sedate with meaningful contact maintained Preparation: Sterile Prep Position: Supine Catheter: None Needle Types: Pajunk Needle Gauge: 20, 21 Ultrasound used to visualize needle placement: Yes Ultrasound used to observe medication spread: Yes Injectate: Other (see comment) (0.25% ropivacaine/0.5% lidocaine 30 mL each side) Adjunct: Epinephrine (see comment for dilution ratio) (1:200,000) Blood Aspirated: No Pain Paresthesia on Injection Noted: No Resistance on Injection: Normal Image Stored and Saved: Yes Events: Uneventful and Well Tolerated
[2019-01-05] MEDS: HYDROmorphone 1 MG/ML 1 ML SYRINGE IVP ONE ×2 (10:35→10:40)
[2019-01-05] MEDS ORDERED: NALOXONE 0.4 MG/ML 1 ML VIAL IV PRN (10:53)
[2019-01-05] MEDS ORDERED: traMADol 50 MG TAB PO PRN (10:53)
[2019-01-05] MEDS ORDERED: HYDROmorphone 1 MG/ML 1 ML SYRINGE IVP ONE (10:55)
--- NOTE | 2019-01-05 10:59 | P.OP ---
Date of Procedure: 01/05/19 Preoperative Diagnosis: Incisional hernia Postoperative Diagnosis: Incisional hernia Procedure(s) Performed: Open repair of incisional hernia with mesh Anesthesia: MUNA Surgeon: Donny Hicks Estimated Blood Loss (ml): 10 Pathology: none sent Condition: stable Disposition: PACU Description of Procedure: The patient's placed on the operative table in supine position. He received general anesthesia. His abdomen was prepped and draped usual fashion. The skin was incised midline. Using blunt and sharp dissection with cautery the fascia external oblique was exposed. The patient had an incisional hernia. The fascia was repaired using oh strata fixed suture. And then a Prolene mesh was cut to appropriate size and secured with a secure strap tacker. The ERICA drain is placed over top of the mesh and brought through separate stab incision. Dolores's fascia closed 0 Vicryl. Skin was closed with anel. Patient top she will was sent to recovery room in stable condition.
[2019-01-05 11:02] LABS: Glucose,Whole Blood 131 mg/dL (75-99)
[2019-01-05] MEDS: HYDROmorphone 0.5 MG/0.5 ML SYRINGE IVP PRN ×5 (11:02→21:33)
[2019-01-05] MEDS: KETOROLAC 30 MG/ML 1 ML VIAL IVP SCH ×3 (11:58→23:23)
[2019-01-05 12:14] LABS: Glucose,Whole Blood 127 mg/dL (75-99)
[2019-01-05 12:20] VITALS: BMI 36.3
[2019-01-05] MEDS: NICOTINE 14MG/24HR PATCH TRANSDERM SCH (13:00)
--- NOTE | 2019-01-05 13:47 | P.CONS ---
History of Present Illness - Reason for Consult Consult date: 01/05/19 Medical management Requesting physician: Donny Hicks - History of Present Illness This is a 43-year-old who presented today for an open repair of incisional hernia with mesh s/p laporotomy. Patient states hernia has been present for 1 year. Past medical history of COPD, musculoskeletal disorder ,hepatitis C, IVDA, seizure disorder, last seizure 2011, (not currently taking seizure medicines) c hronic pancreatitis, pancreatic pseudocyst and DM II. Upon examination patient denies history PE, atrial fibrillation, and heart failure. Denies nausea/vomiting, chest pain, and shortness of breath. He is a current every day smoker 1 pack per day and has requested a nicotine patch. Patient is alert and interactive, oriented 3. Sitting up in bed eating lunch patient complaining of mild pain from surgical site. Review of Systems Please refer to HPI otherwise unremarkable Past Medical History Past Medical History: COPD, Musculoskeletal Disorder, Seizure Disorder Additional Past Medical History / Comment(s): History of seizures-per patient, his last seizure 2011, Hepatitis C, history of IV drug use, history of crack cocaine use, Degenerative disc disease in back, possible arthritis in knees, hips and arms, History of chronic pancreatitis, pancreatic pseudocyst formation, cyst on pancreas History of Any Multi-Drug Resistant Organisms: None Reported Past Surgical History: Appendectomy, Cholecystectomy Additional Past Surgical History / Comment(s): Bilat eye surgery-1998, drain for pancreatitis, RT LUNG THOROSCOPIC DECOTICATION, partial gastrectomy/removal of pancreatic psuedocyst and lysis of adhesions 12-16-2017 Past Anesthesia/Blood Transfusion Reactions: No Reported Reaction Past Psychological History: Bipolar, Depression Smoking Status: Current every day smoker Past Alcohol Use History: None Reported Additional Past Alcohol Use History / Comment(s): . Past Drug Use History: None Reported Additional Drug Use History / Comment(s): STATES NO CURRENT USE - Past Family History Brother(s) Additional Family Medical History / Comment(s): Chronic alcoholism Sister(s) Additional Family Medical History / Comment(s): Chronic alcoholism Daughter(s) Family Medical History: No Reported History Additional Family Medical History / Comment(s): One daughter healthy Son(s) Family Medical History: No Reported History Additional Family Medical History / Comment(s): One son healthy Father History Unknown: Yes Family Medical History: AICD/Pacemaker, Myocardial Infarction ([place]) Additional Family Medical History / Comment(s): Schizophrenia. Per patient, his father at the age of 59 Mother History Unknown: Yes Family Medical History: No Reported History Additional Family Medical History / Comment(s): HPV Medications and Allergies Home Medications Medication Instructions Recorded Confirmed Type Mirtazapine [Remeron] 15 mg PO HS 11/23/16 01/05/19 History lamoTRIgine [LaMICtal] 100 mg PO BID 03/13/17 01/05/19 History OLANZapine [ZyPREXA] 10 mg PO HS 03/28/18 01/05/19 History Buprenorphine HCl/Naloxone HCl 1 film SL BID 04/17/18 01/05/19 History [Buprenorphin-Naloxon 8-2 mg Sl] INSULIN ASPART (NovoLOG) [NovoLOG 14 unit SQ AC-TID 11/09/18 01/05/19 History (formulary)] Famotidine [Pepcid AC] 20 mg PO HS 12/29/18 01/05/19 History Insulin Glargine [Lantus] 50 unit SQ HS 12/29/18 01/05/19 History metFORMIN HCL [Glucophage] 500 mg PO BID 12/29/18 01/05/19 History Allergies Allergy/AdvReac Type Severity Reaction Status Date / Time codeine Allergy Swelling Verified 01/05/19 07:36 furosemide [From Lasix] Allergy Rash/Hives Verified 01/05/19 07:36 haloperidol [From Haldol] Allergy Unknown Verified 01/05/19 07:36 prochlorperazine Allergy Swelling Verified 01/05/19 07:36 lactose AdvReac Diarrhea Verified 01/05/19 07:36 Physical Exam Vitals: Vital Signs Temp Pulse Resp BP Pulse Ox 01/05/19 12:00 97.8 F 80 14 137/86 94 L 01/05/19 11:30 87 16 125/60 94 L 01/05/19 11:15 77 16 122/61 95 01/05/19 11:00 78 16 127/63 95 01/05/19 10:43 81 16 119/59 97 01/05/19 10:28 90 16 129/78 95 01/05/19 07:44 98.4 F 87 16 117/69 96 Intake and Output 01/04/19 01/05/19 01/05/19 22:59 06:59 14:59 Intake Total 1650 Output Total 20 Balance 1630 Intake: IV 1650 Output: Estimated Blood Loss 20 Head normocephalic Neck supple Lungs clear to auscultation bilaterally no wheezing or crackles Heart regular rate and rhythm S1-S2, no rub or gallop Abdomen is tender, ecchymosis noted at base of abdomen, bowel sounds hypoactive. ABD binder in place. ERICA drain present with serosanguineous ouput. No hepatosplenomegaly Extremities no edema Neuro alert and orientated to 3 Results Labs: Abnormal Lab Results - Last 24 Hours (Table) 01/05/19 01/05/19 01/05/19 Range/Units 08:00 11:00 11:59 POC Glucose (mg/dL) 135 H 131 H 127 H (75-99) mg/dL Assessment and Plan Assessment: 1. S/P open incisional hernia repair with mesh with Dr. Hicks. Postop day 0. Pain medication per surgical services 2. Diabetes mellitus type 2. Home medications resumed. Metformin on hold. Sliding scale added 3. Nicotine dependence. patient educated on smoking cessation Greater than 3 minutes. Nicotine patch ordered 4. History of COPD. No exacerbation at this time no exacerbation at this time 5. History of seizure disorder. Not currently taking medication last 2011 6. History of chronic pancreatitis. partial gastrectomy/removal of pancreatic pseudocysts and lysis of adhesions and November 2017 7. History of IV drug abuse 8. Hepatitis C 9. History of bipolar and depression DVT prophylaxis on Lovenox. GI prophylaxis Pepcid Thank you for this consultation. We will continue to follow patient closely throughout stay Time with Patient: Greater than 30 (Greater than 60% of the total time spent in counseling and coordination of care. I performed an examination of the patient and discussed their management with the Nurse Practitioner. I have reviewed the Nurse Practitioner's notes and agree with the documented findings and plan of care)
[2019-01-05 13:59] LABS: Basophils # (A) 0.1 k/uL (0-0.2); Basophils % (A) 1 %; Eosinophils # (A) 0.3 k/uL (0-0.7); Eosinophils % (A) 4 %; HCT 38.6 % (39.0-53.0); HGB 12.5 gm/dL (13.0-17.5); Lymphocytes # (A) 1.2 k/uL (1.0-4.8); Lymphocytes % (A) 15 %; MCH 28.7 pg (25.0-35.0); MCHC 32.3 g/dL (31.0-37.0); MCV 88.8 fL (80.0-100.0); Mean Platelet Volume 9.5; Monocytes # (A) 0.4 k/uL (0-1.0); Monocytes % (A) 5 %; Neutrophils # (A) 5.9 k/uL (1.3-7.7); Neutrophils % (A) 74 %; Platelet Count 119 k/uL (150-450); RBC 4.34 m/uL (4.30-5.90); RDW 14.7 % (11.5-15.5)
[2019-01-05 14:02] LABS: ALT 95 U/L (21-72); AST 156 U/L (17-59); African American GFR (CKD) >90 (>60 ml/min/1.73 sqM); Albumin 4.1 g/dL (3.5-5.0); Alkaline Phosphatase 148 U/L (38-126); Anion Gap 9 mmol/L; Blood Urea Nitrogen 17 mg/dL (9-20); Carbon Dioxide 26 mmol/L (22-30); Chloride 105 mmol/L (98-107); Glucose 155 mg/dL (74-99); Potassium 3.8 mmol/L (3.5-5.1); Sodium 140 mmol/L (137-145); Total Bilirubin 0.6 mg/dL (0.2-1.3); Total Protein 6.8 g/dL (6.3-8.2)
[2019-01-05 16:53] LABS: Glucose,Whole Blood 133 mg/dL (75-99)
[2019-01-05] MEDS: INSULIN ASPART (NovoLOG) 100 UNIT/ML VIAL SQ SCH ×2 (17:15→21:05)
[2019-01-05] MEDS: lamoTRIgine 100 MG TAB PO SCH (20:46)
[2019-01-05] MEDS ORDERED: INSULIN DETEMIR (LEVEMIR) 100 UNIT/ML SYR SQ SCH (21:00)
[2019-01-05] MEDS ORDERED: OLANZapine 10 MG TAB PO SCH (21:00)
[2019-01-05] MEDS ORDERED: MIRTAZAPINE 15 MG TAB PO SCH (21:00)
[2019-01-05 21:02] LABS: Glucose,Whole Blood 107 mg/dL (75-99)
[2019-01-06] MEDS: HYDROmorphone 0.5 MG/0.5 ML SYRINGE IVP PRN (00:59)
[2019-01-06] MEDS: KETOROLAC 30 MG/ML 1 ML VIAL IVP SCH ×3 (04:18→15:49)
[2019-01-06] MEDS: INSULIN ASPART (NovoLOG) 100 UNIT/ML VIAL SQ SCH ×2 (07:08→13:21)
[2019-01-06 07:09] LABS: Glucose,Whole Blood 120 mg/dL (75-99)
[2019-01-06] MEDS: lamoTRIgine 100 MG TAB PO SCH (07:12)
[2019-01-06] MEDS: HYDROcodone/APAP 5-325MG 1 EACH TAB PO PRN ×2 (07:12→12:15)
[2019-01-06] MEDS: NICOTINE 14MG/24HR PATCH TRANSDERM SCH (07:13)
[2019-01-06 08:20] LABS: Basophils # (A) 0.2 k/uL (0-0.2); Basophils % (A) 3 %; Eosinophils # (A) 0.3 k/uL (0-0.7); Eosinophils % (A) 3 %; HCT 34.2 % (39.0-53.0); HGB 11.5 gm/dL (13.0-17.5); Lymphocytes # (A) 1.3 k/uL (1.0-4.8); Lymphocytes % (A) 15 %; MCH 29.7 pg (25.0-35.0); MCHC 33.5 g/dL (31.0-37.0); MCV 88.6 fL (80.0-100.0); Monocytes # (A) 0.6 k/uL (0-1.0); Monocytes % (A) 7 %; Neutrophils # (A) 6.3 k/uL (1.3-7.7); Neutrophils % (A) 73 %; RBC 3.87 m/uL (4.30-5.90); RDW 13.7 % (11.5-15.5); WBC 8.7 k/uL (3.8-10.6)
[2019-01-06 08:34] LABS: ALT 63 U/L (21-72); AST 63 U/L (17-59); African American GFR (CKD) >90 (>60 ml/min/1.73 sqM); Albumin 3.4 g/dL (3.5-5.0); Alkaline Phosphatase 133 U/L (38-126); Anion Gap 8 mmol/L; Blood Urea Nitrogen 18 mg/dL (9-20); Calcium 8.5 mg/dL (8.4-10.2); Carbon Dioxide 28 mmol/L (22-30); Chloride 104 mmol/L (98-107); Glucose 125 mg/dL (74-99); Potassium 3.9 mmol/L (3.5-5.1); Sodium 140 mmol/L (137-145); Total Bilirubin 1.1 mg/dL (0.2-1.3)
[2019-01-06] MEDS ORDERED: SODIUM CHLORIDE 0.9% 1,000 ML IV ONE (08:58)
[2019-01-06] MEDS ORDERED: ENOXAPARIN 40 MG/0.4 ML SYRINGE SQ SCH (09:00)
[2019-01-06] MEDS ORDERED: FAMOTIDINE 20 MG TAB PO SCH (09:00)
--- NOTE | 2019-01-06 09:17 | P.PN ---
Subjective Progress Note Date: 01/06/19 This is a 43-year-old who presented today for an open repair of incisional hernia with mesh s/p laporotomy. Patient states hernia has been present for 1 year. Past medical history of COPD, musculoskeletal disorder ,hepatitis C, IVDA, seizure disorder, last seizure 2011, (not currently taking seizure medicines) chronic pancreatitis, pancreatic pseudocyst and DM II. Upon examination patient denies history PE, atrial fibrillation, and heart failure. Denies nausea/vomiting, chest pain, and shortness of breath. He is a current every day smoker 1 pack per day and has requested a nicotine patch. Patient is alert and interactive, oriented 3. Sitting up in bed eating lunch patient complaining of mild pain from surgical site. On 01/06/2019 patient is alert and oriented 3. Patient having some discomfort at abdominal site. Patient has been up ambulating. Incentive spirometer ordered. Patient denies chest pain or shortness of breath. Patient denies nausea vomiting or diarrhea. Patient denies any urinary burning or frequency Objective - Vital Signs Vital signs: Vital Signs Temp 98.4 F 01/06/19 07:00 Pulse 97 01/06/19 07:00 Resp 18 01/06/19 07:00 BP 129/84 01/06/19 07:00 Pulse Ox 96 01/06/19 07:00 Intake & Output 01/05/19 01/06/19 01/06/19 18:59 06:59 18:59 Intake Total 1950 1480 200 Output Total 20 280 Balance 1930 1200 200 Intake: IV 1650 Intake, IV Titration 300 1000 Amount Lactated Ringers 1,000 ml 200 1000 @ 100 mls/hr IV .Q10H ONE Rx#:[id number] ceFAZolin 2 gm In Sodium 100 Chloride 0.9% 50 ml @ 100 mls/hr IVPB ONCE ONE Rx# :[id number] Oral 480 200 Output: Drainage 280 Right Abdomen 280 Estimated Blood Loss 20 - Exam Head normocephalic Neck supple Lungs clear to auscultation bilaterally no wheezing or crackles Heart regular rate and rhythm S1-S2, no rub or gallop Abdomen is tender, ecchymosis noted at base of abdomen, bowel sounds hypoactive. ABD binder in place. ERICA drain present with serosanguineous ouput. No hepatosple nomegaly Extremities no edema Neuro alert and orientated to 3 - Labs CBC & Chem 7: 01/06/19 06:57 01/06/19 06:57 Labs: Abnormal Lab Results - Last 24 Hours (Table) 01/05/19 01/05/19 01/05/19 Range/Units 11:00 11:59 13:15 RBC (4.30-5.90) m/uL Hgb 12.5 L (13.0-17.5) gm/dL Hct 38.6 L (39.0-53.0) % Plt Count 119 L (150-450) k/uL Glucose (74-99) mg/dL POC Glucose (mg/dL) 131 H 127 H (75-99) mg/dL AST (17-59) U/L ALT (21-72) U/L Alkaline Phosphatase (38-126) U/L Total Protein (6.3-8.2) g/dL Albumin (3.5-5.0) g/dL 01/05/19 01/05/19 01/05/19 Range/Units 13:15 16:42 20:51 RBC (4.30-5.90) m/uL Hgb (13.0-17.5) gm/dL Hct (39.0-53.0) % Plt Count (150-450) k/uL Glucose 155 H (74-99) mg/dL POC Glucose (mg/dL) 133 H 107 H (75-99) mg/dL AST 156 H (17-59) U/L ALT 95 H (21-72) U/L Alkaline Phosphatase 148 H (38-126) U/L Total Protein (6.3-8.2) g/dL Albumin (3.5-5.0) g/dL 01/06/19 01/06/19 01/06/19 Range/Units 06:57 06:57 06:58 RBC 3.87 L (4.30-5.90) m/uL Hgb 11.5 L (13.0-17.5) gm/dL Hct 34.2 L (39.0-53.0) % Plt Count (150-450) k/uL Glucose 125 H (74-99) mg/dL POC Glucose (mg/dL) 120 H (75-99) mg/dL AST 63 H (17-59) U/L ALT (21-72) U/L Alkaline Phosphatase 133 H (38-126) U/L Total Protein 6.0 L (6.3-8.2) g/dL Albumin 3.4 L (3.5-5.0) g/dL Assessment and Plan Assessment: 1. S/P open incisional hernia repair with mesh with Dr. Hicks. Postop day 1. Pain medication per surgical services 2. Diabetes mellitus type 2. Home medications resumed. Metformin on hold. Sliding scale added 3. Nicotine dependence. patient educated on smoking cessation Greater than 3 minutes. Nicotine patch ordered 4. History of COPD. No exacerbation at this time no exacerbation at this time 5. History of seizure disorder. Not currently taking medication last 2011 6. History of chronic pancreatitis. partial gastrectomy/removal of pancreatic pseudocysts and lysis of adhesions and November 2017 7. History of IV drug abuse. 8. Hepatitis C 9. History of bipolar and depression 10. Elevated liver enzymes. These do appear to be trending down we'll continue to monitor DVT prophylaxis on Lovenox. GI prophylaxis Pepcid Thank you for this consultation. We will continue to follow patient closely throughout stay I performed an examination of the patient and discussed their management with the Nurse Practitioner. I have reviewed the Nurse Practitioner's notes and agree with the documented findings and plan of care
--- NOTE | 2019-01-06 10:35 | P.DS ---
Providers Expected date of discharge: 01/06/19 Attending physician: Donny Hicks Consults: 01/05/19 10:53 Consult Physician Routine Consulting Provider: Marialuisa Espinoza Consult Reason/Comments: Medical management Do you want consulting provider notified?: Yes Primary care physician: Marialuisa Espinoza [facility] Course: 43-year-old male who underwent open repair of incisional hernia with mesh. Patient is doing well postoperatively. He is tolerating diet without nausea or vomiting. He reports pain is controlled with current regimen. Vital signs have been stable. He is stable for discharge home today with ERICA drain. Please see EMR for further hospital course details. Discharge diagnosis 1. Incisional hernia, status post open repair of incisional hernia with mesh Nurse practitioner note has been reviewed by physician. Signing provider agrees with the documented findings, assessment, and plan of care. Patient Condition at Discharge: Stable Plan - Discharge Summary Discharge Rx Participant: Yes New Discharge Prescriptions: New Hydrocodone/Acetaminophen [[place] 5-325] 1 tab PO Q6HR PRN 3 Days #12 tab PRN Reason: Pain No Action Mirtazapine [Remeron] 15 mg PO HS lamoTRIgine [LaMICtal] 100 mg PO BID OLANZapine [ZyPREXA] 10 mg PO HS Buprenorphine HCl/Naloxone HCl [Buprenorphin-Naloxon 8-2 mg Sl] 1 film SL BID INSULIN ASPART (NovoLOG) [NovoLOG (formulary)] 14 unit SQ AC-TID metFORMIN HCL [Glucophage] 500 mg PO BID Insulin Glargine [Lantus] 50 unit SQ HS Famotidine [Pepcid AC] 20 mg PO HS Discharge Medication List Mirtazapine [Remeron] 15 mg PO HS 11/23/16 [History] lamoTRIgine [LaMICtal] 100 mg PO BID 03/13/17 [History] OLANZapine [ZyPREXA] 10 mg PO HS 03/28/18 [History] Buprenorphine HCl/Naloxone HCl [Buprenorphin-Naloxon 8-2 mg Sl] 1 film SL BID 04/17/18 [History] INSULIN ASPART (NovoLOG) [NovoLOG (formulary)] 14 unit SQ AC-TID 11/09/18 [History] Famotidine [Pepcid AC] 20 mg PO HS 12/29/18 [History] Insulin Glargine [Lantus] 50 unit SQ HS 12/29/18 [History] metFORMIN HCL [Glucophage] 500 mg PO BID 12/29/18 [History] Hydrocodone/Acetaminophen [[place] 5-325] 1 tab PO Q6HR PRN 3 Days #12 tab 01/06/19 [Rx] Follow up Appointment(s)/Referral(s): Donny Hicks MD [STAFF PHYSICIAN] - 01/12/19 3:20 pm Marialuisa Espinoza MD [Primary Care Provider] - 1 Week Activity/Diet/Wound Care/Special Instructions: No driving while taking [place] No lifting over 10 pounds You may shower. No soaking or tub baths Very light activity until you are reevaluated at your follow up appointment with your surgeon
[2019-01-06 10:39] LABS: Platelet Count 96 k/uL (150-450)
[2019-01-06 12:04] LABS: Glucose,Whole Blood 123 mg/dL (75-99)
[2019-01-06 14:43] VITALS: BP 118/79; PULSE 85; RESP 16; TEMP 98.3
[2019-01-06 17:35] LABS: Hepatitis C IgG Antibody Reactive (Non-Reactive)
== END 2019-01-06 16:03 | disposition home or self-care (01) ==
LOC: OR 07:26 → 4SSUR 10:28 → OR 01-06 16:03
PROVIDERS: ATTEND Surgery
DX: K43.2 Incisional hernia without obstruction or gangrene (principal); J44.9 Chronic obstructive pulmonary disease, unspecified; G40.909 Epilepsy, unspecified, not intractable, without status epilepticus; K86.1 Other chronic pancreatitis; F17.210 Nicotine dependence, cigarettes, uncomplicated; F31.9 Bipolar disorder, unspecified; E11.9 Type 2 diabetes mellitus without complications; R94.5 Abnormal results of liver function studies; B19.20 Unspecified viral hepatitis C without hepatic coma; Z79.4 Long term (current) use of insulin; Z79.899 Other long term (current) drug therapy; Z87.19 Personal history of other diseases of the digestive system; Z90.49 Acquired absence of other specified parts of digestive tract; Z98.890 Other specified postprocedural states; Z81.1 Family history of alcohol abuse and dependence; Z82.49 Family history of ischemic heart disease and other diseases of the circulatory system; Z88.5 Allergy status to narcotic agent; Z88.8 Allergy status to other drugs, medicaments and biological substances; Z91.011 Allergy to milk products; Z90.3 Acquired absence of stomach [part of]; Z79.01 Long term (current) use of anticoagulants; Z87.898 Personal history of other specified conditions; Z86.718 Personal history of other venous thrombosis and embolism
CPT/HCPCS: 64486; 86803; 87522; 80053 ×2; 85025 ×2; 86706; 87340; 49560; 49568; C1781; S4990 ×2; J1644; J0690; J1650; J3010; J1885 ×2; J1170 ×3; J2250; 36415; 86850; 86900; 86901

== ENCOUNTER → 2019-04-05 | Outpatient (CLI) | payer MEDICARE ==
[2019-04-05 19:10] LABS: African American GFR (CKD) 120.8 (60.0-200.0); Albumin 4.5 g/dL (3.80-4.90); Albumin/Globulin Ratio 2.05 (1.60-3.17); Anion Gap 8.5 mmol/L (4.00-12.00); BUN/Creat Ratio 16.67 Ratio (12.00-20.00); Calcium 9.2 mg/dL (8.7-10.3); Carbon Dioxide 26.5 mmol/L (21.6-31.8); Chol/HDL Ratio 3.87; Globulin 2.2 g/dL (1.6-3.3); LDL Cholesterol,Calculated 77.4 mg/dL (0.0-131.0); Non-African American GFR(CKD) 104.2 (60.0-200.0); Potassium 3.8 mmol/L (3.5-5.5); Total Bilirubin 0.4 mg/dL (0.3-1.2); Total Protein 6.7 g/dL (6.2-8.2); VLDL Calculation 34.6 mg/dL (5.00-40.00)
[2019-04-05 19:24] LABS: Hemoglobin A1C 5.7 % (4.0-6.0)
== END | disposition home or self-care (01) ==
LOC: LABWHC1 13:59
PROVIDERS: ATTEND Internal Medicine Endocrinology, Diabetes & Metabolism
DX: E11.65 Type 2 diabetes mellitus with hyperglycemia (principal)
CPT/HCPCS: 36415; 80053; 80061; 82043; 82570; 83036; 84443

== ENCOUNTER 2019-06-19 20:12 | Emergency (ER) | payer MEDICARE ==
[2019-06-19] MEDS ORDERED: ONDANSETRON 4 MG/2 ML VIAL IVP STA (20:45)
[2019-06-19] MEDS ORDERED: SODIUM CHLORIDE 0.9% 1,000 ML IV STA (20:45)
[2019-06-19] MEDS ORDERED: HYDROmorphone 1 MG/ML 1 ML SYRINGE IVP STA (20:45)
--- NOTE | 2019-06-19 20:48 | ED ---
Abdominal Pain HPI - General Chief Complaint: Abdominal Pain Stated Complaint: Abd Pain Time Seen by Provider: 06/19/19 20:32 Source: patient Mode of arrival: ambulatory Limitations: no limitations - History of Present Illness Initial Comments: Patient is a 44-year-old male with history of recurrent pancreatitis presenting to the emergency department with a chief complaint of abdominal pain. States he developed epigastric abdominal pain about 2 days ago with constant nausea but not his vomiting. States this feels like his typical bout with pancreatitis. Patient states his last bout with recurrent pancreatitis was about a year ago and he's been doing fairly well. Denies any abdominal bloating or constipation. Denies hematuria, hematochezia melena. Denies any testicular pain and swelling. Penile discharge or swelling. Denies taking any medications to alleviate his symptoms. No fever or chills, chest pain or back pain. - Related Data Home Medications Medication Instructions Recorded Confirmed Mirtazapine [Remeron] 15 mg PO HS 11/23/16 01/05/19 lamoTRIgine [LaMICtal] 100 mg PO BID 03/13/17 01/05/19 OLANZapine [ZyPREXA] 10 mg PO HS 03/28/18 01/05/19 INSULIN ASPART (NovoLOG) [NovoLOG 14 unit SQ AC-TID 11/09/18 01/05/19 (formulary)] Famotidine [Pepcid AC] 20 mg PO HS 12/29/18 01/05/19 Insulin Glargine [Lantus] 50 unit SQ HS 12/29/18 01/05/19 metFORMIN HCL [Glucophage] 500 mg PO BID 12/29/18 01/05/19 Previous Rx's Medication Instructions Recorded Hydrocodone/Acetaminophen [[place] 1 tab PO Q6HR PRN 3 Days #12 tab 01/06/19 5-325] Allergies Allergy/AdvReac Type Severity Reaction Status Date / Time codeine Allergy Swelling Verified 06/19/19 20:27 furosemide [From Lasix] Allergy Rash/Hives Verified 06/19/19 20:27 haloperidol [From Haldol] Allergy Unknown Verified 06/19/19 20:27 prochlorperazine Allergy Swelling Verified 06/19/19 20:27 lactose AdvReac Diarrhea Verified 06/19/19 20:27 Review of Systems ROS Statement: Those systems with pertinent positive or pertinent negative responses have been documented in the HPI. ROS Other: All systems not noted in ROS Statement are negative. Past Medical History Past Medical History: COPD, Musculoskeletal Disorder, Seizure Disorder Additional Past Medical History / Comment(s): History of seizures-per patient, his last seizure 2011, Hepatitis C, history of IV drug use, history of crack cocaine use, Degenerative disc disease in back, possible arthritis in knees, hips and arms, History of chronic pancreatitis, pancreatic pseudocyst formation, cyst on pancreas History of Any Multi-Drug Resistant Organisms: None Reported Past Surgical History: Appendectomy, Cholecystectomy Additional Past Surgical History / Comment(s): Bilat eye surgery-1998, drain for pancreatitis, RT LUNG THOROSCOPIC DECOTICATION, partial gastrectomy/removal of pancreatic psuedocyst and lysis of adhesions 12-16-2017 Past Anesthesia/Blood Transfusion Reactions: No Reported Reaction Past Psychological History: Bipolar, Depression Smoking Status: Current every day smoker Past Alcohol Use History: None Reported Past Drug Use History: None Reported - Past Family History Brother(s) Additional Family Medical History / Comment(s): Chronic alcoholism Sister(s) Additional Family Medical History / Comment(s): Chronic alcoholism Daughter(s) Family Medical History: No Reported History Additional Family Medical History / Comment(s): One daughter healthy Son(s) Family Medical History: No Reported History Additional Family Medical History / Comment(s): One son healthy Father History Unknown: Yes Family Medical History: AICD/Pacemaker, Myocardial Infarction ([place]) Additional Family Medical History / Comment(s): Schizophrenia. Per patient, his father at the age of 59 Mother History Unknown: Yes Family Medical History: No Reported History Additional Family Medical History / Comment(s): HPV General Exam Limitations: no limitations General appearance: alert, in no apparent distress Head exam: Present: atraumatic, normocephalic, normal inspection Eye exam: Present: normal appearance, PERRL, EOMI Pupils: Present: normal accommodation ENT exam: Present: normal exam, TM's normal bilaterally Neck exam: Present: normal inspection, full ROM Respiratory exam: Present: normal lung sounds bilaterally Cardiovascular Exam: Present: regular rate, normal rhythm, normal heart sounds GI/Abdominal exam: Present: soft, tenderness (Epigastric abdominal tenderness negative Dahl sign.), other (Scarring from previous abdominal surgery). Absent: distended Extremities exam: Present: normal inspection, full ROM Back exam: Present: normal inspection, full ROM Neurological exam: Present: alert, oriented X3 Psychiatric exam: Present: normal affect, normal mood Skin exam: Present: warm, dry, intact, normal color Course Vital Signs 06/19/19 20:22 Temperature 98.8 F Pulse Rate 92 Respiratory 20 Rate Blood Pressure 138/84 O2 Sat by Pulse 97 Oximetry Medical Decision Making - Medical Decision Making Patient is a 44-year-old male with history of recurrent pancreatitis and diabetes presenting to emergency Department with a chief complaint of abdominal pain. Epigastric abdominal pain that resembles his Marquez take symptoms. Blood nausea but no vomiting. Physical examination patient does have epigastric abdominal pain. Negative Dahl sign. Patient given antiemetics, analgesia and IV fluids. Evaluation patient reports improvement in symptoms. CBC is unr emarkable. Lipase and amylase within normal limits. UA is unremarkable. No signs of dehydration. Patient will be discharged with a prescription Zofran. Return parameters were thoroughly discussed with patient was understanding and agreeable. EKG shows normal sinus rhythm and no ST changes or T-wave inversions. No chest pain and back pain. Case discussed with physician. - Lab Data Result diagrams: 06/19/19 21:10 06/19/19 21:10 Lab Results 06/19/19 06/19/19 06/19/19 Range/Units 21:10 21:10 21:10 WBC 9.4 (3.8-10.6) k/uL RBC 4.72 (4.30-5.90) m/uL Hgb 13.1 (13.0-17.5) gm/dL Hct 41.1 (39.0-53.0) % MCV 87.0 (80.0-100.0) fL MCH 27.6 (25.0-35.0) pg MCHC 31.8 (31.0-37.0) g/dL RDW 14.1 (11.5-15.5) % Plt Count 116 L (150-450) k/uL Neutrophils % 66 % Lymphocytes % 22 % Monocytes % 6 % Eosinophils % 5 % Basophils % 0 % Neutrophils # 6.2 (1.3-7.7) k/uL Lymphocytes # 2.1 (1.0-4.8) k/uL Monocytes # 0.6 (0-1.0) k/uL Eosinophils # 0.4 (0-0.7) k/uL Basophils # 0.0 (0-0.2) k/uL Sodium 136 L (137-145) mmol/L Potassium 3.6 (3.5-5.1) mmol/L Chloride 103 (98-107) mmol/L Carbon Dioxide 26 (22-30) mmol/L Anion Gap 7 mmol/L BUN 9 (9-20) mg/dL Creatinine 0.60 L (0.66-1.25) mg/dL Est GFR (CKD-EPI)AfAm >90 (>60 ml/min/1.73 sqM) Est GFR (CKD-EPI)NonAf >90 (>60 ml/min/1.73 sqM) Glucose 215 H (74-99) mg/dL Calcium 8.7 (8.4-10.2) mg/dL Total Bilirubin 0.3 (0.2-1.3) mg/dL AST 78 H (17-59) U/L ALT 56 H (4-49) U/L Alkaline Phosphatase 209 H (38-126) U/L Total Protein 6.7 (6.3-8.2) g/dL Albumin 3.8 (3.5-5.0) g/dL Amylase 33 (30-110) U/L Lipase 65 (23-300) U/L Urine Color Yellow Urine Appearance Clear (Clear) Urine pH 6.5 (5.0-8.0) Ur Specific [place] 1.013 (1.001-1.035) Urine Protein Negative (Negative) Urine Glucose (UA) Negative (Negative) Urine Ketones Negative (Negative) Urine Blood Negative (Negative) Urine Nitrite Negative (Negative) Urine Bilirubin Negative (Negative) Urine Urobilinogen <2.0 (<2.0) mg/dL Ur Leukocyte Esterase Negative (Negative) - EKG Data EKG Comments: Normal sinus rhythm, no ST changes or T-wave inversions. Matriculate rate 83, TN 140, QR S 90, QTC 448. Disposition Clinical Impression: Abdominal pain, Nausea Disposition: HOME SELF-CARE Condition: Stable Instructions (If sedation given, give patient instructions): Abdominal Pain (ED) Additional Instructions: Take prescribed medication as directed. Follow with primary care. Return to emergency department if symptoms worsen. Is patient prescribed a controlled substance at d/c from ED?: No Referrals: Marialuisa Espinoza MD [Primary Care Provider] - 1-2 days Time of Disposition: 22:35
[2019-06-19 22:09] LABS: Basophils % (A) 0 %; Eosinophils # (A) 0.4 k/uL (0-0.7); Eosinophils % (A) 5 %; HCT 41.1 % (39.0-53.0); HGB 13.1 gm/dL (13.0-17.5); Lymphocytes # (A) 2.1 k/uL (1.0-4.8); Lymphocytes % (A) 22 %; MCH 27.6 pg (25.0-35.0); MCHC 31.8 g/dL (31.0-37.0); Mean Platelet Volume 11.1; Monocytes # (A) 0.6 k/uL (0-1.0); Monocytes % (A) 6 %; Neutrophils # (A) 6.2 k/uL (1.3-7.7); Neutrophils % (A) 66 %; Platelet Count 116 k/uL (150-450); RBC 4.72 m/uL (4.30-5.90); RDW 14.1 % (11.5-15.5); WBC 9.4 k/uL (3.8-10.6)
[2019-06-19 22:11] LABS: Appearance,Urine Clear (Clear); Bilirubin,Urine Negative (Negative); Blood,Urine Negative (Negative); Color,Urine Yellow; Glucose,Urine (UA) Negative (Negative); Ketones,Urine Negative (Negative); Leukocyte Esterase,Urine Negative (Negative); Nitrite,Urine Negative (Negative); PH, Urine 6.5 (5.0-8.0); Protein,Urine Negative (Negative); Specific Gravity,Urine 1.013 (1.001-1.035); Urobilinogen,Urine <2.0 mg/dL (<2.0)
[2019-06-19 22:14] LABS: ALT 56 U/L (4-49); AST 78 U/L (17-59); African American GFR (CKD) >90 (>60 ml/min/1.73 sqM); Albumin 3.8 g/dL (3.5-5.0); Alkaline Phosphatase 209 U/L (38-126); Amylase 33 U/L (30-110); Anion Gap 7 mmol/L; Blood Urea Nitrogen 9 mg/dL (9-20); Calcium 8.7 mg/dL (8.4-10.2); Carbon Dioxide 26 mmol/L (22-30); Chloride 103 mmol/L (98-107); Glucose 215 mg/dL (74-99); Non-African American GFR(CKD) >90 (>60 ml/min/1.73 sqM); Potassium 3.6 mmol/L (3.5-5.1); Sodium 136 mmol/L (137-145); Total Bilirubin 0.3 mg/dL (0.2-1.3); Total Protein 6.7 g/dL (6.3-8.2)
[2019-06-19 22:47] VITALS: BP 117/78; PULSE 68; RESP 18; TEMP 98.5
== END 2019-06-19 22:58 | disposition home or self-care (01) ==
LOC: EC 20:12
DX: R10.13 Epigastric pain (principal); R11.0 Nausea; R10.816 Epigastric abdominal tenderness; K86.1 Other chronic pancreatitis; E11.9 Type 2 diabetes mellitus without complications; F31.9 Bipolar disorder, unspecified; G40.909 Epilepsy, unspecified, not intractable, without status epilepticus; B19.20 Unspecified viral hepatitis C without hepatic coma; F17.200 Nicotine dependence, unspecified, uncomplicated; Z79.4 Long term (current) use of insulin; Z79.899 Other long term (current) drug therapy; Z88.5 Allergy status to narcotic agent; Z88.8 Allergy status to other drugs, medicaments and biological substances; Z91.011 Allergy to milk products; Z86.59 Personal history of other mental and behavioral disorders; Z90.49 Acquired absence of other specified parts of digestive tract; Z98.890 Other specified postprocedural states
CPT/HCPCS: 36415; 93005; 80053; 82150; 83690; 85025; 81003; 99284; 96374; 96375; 96361 ×2; J2405; J1170

== ENCOUNTER → 2019-09-20 | Outpatient (CLI) | payer MEDICARE ==
[2019-09-20 14:20] LABS: Basophils # (A) 0.1 k/uL (0-0.2); Basophils % (A) 1 %; Eosinophils # (A) 0.3 k/uL (0-0.7); Eosinophils % (A) 3 %; HCT 47.5 % (39.0-53.0); HGB 15.1 gm/dL (13.0-17.5); Lymphocytes # (A) 2.3 k/uL (1.0-4.8); Lymphocytes % (A) 19 %; MCH 28.8 pg (25.0-35.0); MCHC 31.8 g/dL (31.0-37.0); MCV 90.6 fL (80.0-100.0); Mean Platelet Volume 10.8; Monocytes # (A) 0.6 k/uL (0-1.0); Monocytes % (A) 5 %; Neutrophils % (A) 72 %; Platelet Count 175 k/uL (150-450); RBC 5.25 m/uL (4.30-5.90); RDW 13.3 % (11.5-15.5); WBC 12.4 k/uL (3.8-10.6)
[2019-09-20 14:26] LABS: Prothrombin Time 10.8 sec (9.0-12.0)
[2019-09-20 23:05] LABS: Non-African American GFR(CKD) 114.8 (60.0-200.0)
[2019-09-20 23:13] LABS: Albumin 4.4 g/dL (3.80-4.90); Albumin/Globulin Ratio 1.57 (1.60-3.17); Bilirubin, Conjugated 0.3 mg/dL (0.20-0.40); Bilirubin,Unconjugated 0.2 mg/dL; Globulin 2.8 g/dL (1.6-3.3); Total Bilirubin 0.5 mg/dL (0.3-1.2); Total Protein 7.2 g/dL (6.2-8.2)
[2019-09-21 21:56] LABS: HCV Qualitative Result Not detected (Not detected); HCV Quant Log <1.08 (<1.08); HCV Quantitative Result <12 IU/mL (<12)
== END | disposition home or self-care (01) ==
LOC: LABWHC1 12:10
PROVIDERS: ATTEND Physician Assistant
DX: B18.2 Chronic viral hepatitis C (principal)
CPT/HCPCS: 36415; 80076; 82565; 84520; 85025; 85610; 87522

== ENCOUNTER 2019-10-25 06:18 | Emergency (ER) | payer MEDICARE ==
[2019-10-25 06:28] LABS: Glucose,Whole Blood 385 mg/dL (75-99)
[2019-10-25] MEDS ORDERED: SODIUM CHLORIDE 0.9% 2,000 ML IV STA (06:37)
--- NOTE | 2019-10-25 06:42 | ED ---
Recheck HPI - General Chief Complaint: Recheck/Abnormal Lab/Rx Stated Complaint: hyperglycemia Time Seen by Provider: 10/25/19 06:32 Source: patient, RN notes reviewed Mode of arrival: ambulatory Limitations: no limitations - History of Present Illness Initial Comments: This a 44-year-old male presents emergency Department chief complaint of hyperglycemia. Patient states blood sugar has been elevated over the last week or so. Patient states it's averaging between 5 and 600. Patient states he woke up this morning and states that it was over 600 and then gave self 28 units of NovoLog along with eating a bowl of cereal. Patient states that he normally takes 60 units of Lantus at nighttime and 14 units of NovoLog with each meal he states recently he is been increasing his Lantus at nighttime to 80 units and has not been helping. Patient states his barrel drainer is Dr. Ryan. He denies any recent infections denies fever, chills, cough, shortness breath, abdominal pain, nausea or vomiting. Denies any dysuria or hematuria. - Related Data Home Medications Medication Instructions Recorded Confirmed Mirtazapine [Remeron] 15 mg PO HS 11/23/16 10/25/19 lamoTRIgine [LaMICtal] 100 mg PO BID 03/13/17 10/25/19 OLANZapine [ZyPREXA] 10 mg PO HS 03/28/18 10/25/19 INSULIN ASPART (NovoLOG) [NovoLOG 14 unit SQ AC-TID 11/09/18 10/25/19 (formulary)] Insulin Glargine [Lantus] 60 unit SQ HS 12/29/18 10/25/19 Omeprazole Magnesium [PriLOSEC OTC] 20 mg PO HS 10/25/19 10/25/19 Allergies Allergy/AdvReac Type Severity Reaction Status Date / Time codeine Allergy Swelling Verified 10/25/19 07:39 furosemide [From Lasix] Allergy Rash/Hives Verified 10/25/19 07:39 haloperidol [From Haldol] Allergy Unknown Verified 10/25/19 07:39 prochlorperazine Allergy Swelling Verified 10/25/19 07:39 lactose AdvReac Diarrhea Verified 10/25/19 07:39 Review of Systems ROS Statement: Those systems with pertinent positive or pertinent negative responses have been documented in the HPI. ROS Other: All systems not noted in ROS Statement are negative. Past Medical History Past Medical History: COPD, Diabetes Mellitus, Musculoskeletal Disorder, Seizure Disorder Additional Past Medical History / Comment(s): History of seizures-per patient, his last seizure 2011, Hepatitis C, history of IV drug use, history of crack cocaine use, Degenerative disc disease in back, possible arthritis in knees, hips and arms, History of chronic pancreatitis, pancreatic pseudocyst formation, cyst on pancreas History of Any Multi-Drug Resistant Organisms: None Reported Past Surgical History: Appendectomy, Cholecystectomy Additional Past Surgical History / Comment(s): Bilat eye surgery-1998, drain for pancreatitis, RT LUNG THOROSCOPIC DECOTICATION, partial gastrectomy/removal of pancreatic psuedocyst and lysis of adhesions 12-16-2017 Past Anesthesia/Blood Transfusion Reactions: No Reported Reaction Past Psychological History: Bipolar, Depression Smoking Status: Current every day smoker Past Alcohol Use History: None Reported Past Drug Use History: None Reported - Past Family History Brother(s) Additional Family Medical History / Comment(s): Chronic alcoholism Sister(s) Additional Family Medical History / Comment(s): Chronic alcoholism Daughter(s) Family Medical History: No Reported History Additional Family Medical History / Comment(s): One daughter healthy Son(s) Family Medical History: No Reported History Additional Family Medical History / Comment(s): One son healthy Father History Unknown: Yes Family Medical History: AICD/Pacemaker, Myocardial Infarction ([place]) Additional Family Medical History / Comment(s): Schizophrenia. Per patient, his father at the age of 59 Mother History Unknown: Yes Family Medical History: No Reported History Additional Family Medical History / Comment(s): HPV General Exam Limitations: no limitations General appearance: alert, in no apparent distress Head exam: Present: atraumatic, normocephalic, normal inspection Eye exam: Present: normal appearance, PERRL, EOMI. Absent: scleral icterus, conjunctival injection, periorbital swelling ENT exam: Present: mucous membranes moist, TM's normal bilaterally, normal external ear exam. Absent: normal oropharynx (Poor dentition) Neck exam: Present: normal inspection, full ROM. Absent: tenderness, meningismus, lymphadenopathy Respiratory exam: Present: normal lung sounds bilaterally. Absent: respiratory distress, wheezes, rales, rhonchi, stridor Cardiovascular Exam: Present: normal rhythm, tachycardia, normal heart sounds. Absent: systolic murmur, diastolic murmur, rubs, gallop, clicks GI/Abdominal exam: Present: soft, normal bowel sounds. Absent: distended, tenderness, guarding, rebound, rigid Neurological exam: Present: alert, oriented X3 Skin exam: Present: warm, dry, intact, normal color. Absent: rash Course Vital Signs 10/25/19 10/25/19 06:27 07:37 Temperature 98.3 F 98.0 F Pulse Rate 105 H 91 Respiratory 20 18 Rate Blood Pressure 132/87 130/83 O2 Sat by Pulse 96 94 L Oximetry Medical Decision Making - Medical Decision Making 44-year-old male present emergency dept for hyperglycemia. Patient's blood sugar has improved. Labs otherwise no significant abnormality's. Patient advised to call his barrel drainer today for close follow-up. Patient will monitor blood glucose and keep a log. Return parameters were discussed. Dietary changes were discussed. - Lab Data Result diagrams: 10/25/19 06:51 10/25/19 06:51 Lab Results 10/25/19 10/25/19 10/25/19 Range/Units 06:27 06:51 06:51 WBC 8.4 (3.8-10.6) k/uL RBC 5.09 (4.30-5.90) m/uL Hgb 14.5 (13.0-17.5) gm/dL Hct 45.8 (39.0-53.0) % MCV 89.8 (80.0-100.0) fL MCH 28.4 (25.0-35.0) pg MCHC 31.6 (31.0-37.0) g/dL RDW 13.1 (11.5-15.5) % Plt Count 118 L (150-450) k/uL Neutrophils % 69 % Lymphocytes % 22 % Monocytes % 4 % Eosinophils % 4 % Basophils % 1 % Neutrophils # 5.7 (1.3-7.7) k/uL Lymphocytes # 1.8 (1.0-4.8) k/uL Monocytes # 0.4 (0-1.0) k/uL Eosinophils # 0.3 (0-0.7) k/uL Basophils # 0.1 (0-0.2) k/uL Manual Slide Review Performed Large Platelets Present Hypochromasia Slight VBG pH (7.31-7.41) VBG pCO2 (37-51) mmHg VBG HCO3 (24-28) mmol/L Sodium 136 L (137-145) mmol/L Potassium 3.8 (3.5-5.1) mmol/L Chloride 98 (98-107) mmol/L Carbon Dioxide 29 (22-30) mmol/L Anion Gap 9 mmol/L BUN 8 L (9-20) mg/dL Creatinine 0.63 L (0.66-1.25) mg/dL Est GFR (CKD-EPI)AfAm >90 (>60 ml/min/1.73 sqM) Est GFR (CKD-EPI)NonAf >90 (>60 ml/min/1.73 sqM) Glucose 374 H (74-99) mg/dL POC Glucose (mg/dL) 385 H (75-99) mg/dL POC Glu Member Services Coordinator ID Nhi Pineda Plasma Lactic Acid Mynor (0.7-2.0) mmol/L Calcium 8.9 (8.4-10.2) mg/dL Magnesium 1.7 (1.6-2.3) mg/dL Total Bilirubin 0.5 (0.2-1.3) mg/dL AST 69 H (17-59) U/L ALT 69 H (4-49) U/L Alkaline Phosphatase 266 H (38-126) U/L Total Protein 7.0 (6.3-8.2) g/dL Albumin 3.8 (3.5-5.0) g/dL Lipase 111 (23-300) U/L Urine Color Urine Appearance (Clear) Urine pH (5.0-8.0) Ur Specific [place] (1.001-1.035) Urine Protein (Negative) Urine Glucose (UA) (Negative) Urine Ketones (Negative) Urine Blood (Negative) Urine Nitrite (Negative) Urine Bilirubin (Negative) Urine Urobilinogen (<2.0) mg/dL Ur Leukocyte Esterase (Negative) Acetone, Qual Negative (Negative) 10/25/19 10/25/19 10/25/19 Range/Units 06:51 06:51 08:11 WBC (3.8-10.6) k/uL RBC (4.30-5.90) m/uL Hgb (13.0-17.5) gm/dL Hct (39.0-53.0) % MCV (80.0-100.0) fL MCH (25.0-35.0) pg MCHC (31.0-37.0) g/dL RDW (11.5-15.5) % Plt Count (150-450) k/uL Neutrophils % % Lymphocytes % % Monocytes % % Eosinophils % % Basophils % % Neutrophils # (1.3-7.7) k/uL Lymphocytes # (1.0-4.8) k/uL Monocytes # (0-1.0) k/uL Eosinophils # (0-0.7) k/uL Basophils # (0-0.2) k/uL Manual Slide Review Large Platelets Hypochromasia VBG pH 7.35 (7.31-7.41) VBG pCO2 56 H (37-51) mmHg VBG HCO3 30 H (24-28) mmol/L Sodium (137-145) mmol/L Potassium (3.5-5.1) mmol/L Chloride (98-107) mmol/L Carbon Dioxide (22-30) mmol/L Anion Gap mmol/L BUN (9-20) mg/dL Creatinine (0.66-1.25) mg/dL Est GFR (CKD-EPI)AfAm (>60 ml/min/1.73 sqM) Est GFR (CKD-EPI)NonAf (>60 ml/min/1.73 sqM) Glucose (74-99) mg/dL POC Glucose (mg/dL) 314 H (75-99) mg/dL POC Glu Member Services Coordinator Maya Reyes Plasma Lactic Acid Mynor 1.9 (0.7-2.0) mmol/L Calcium (8.4-10.2) mg/dL Magnesium (1.6-2.3) mg/dL Total Bilirubin (0.2-1.3) mg/dL AST (17-59) U/L ALT (4-49) U/L Alkaline Phosphatase (38-126) U/L Total Protein (6.3-8.2) g/dL Albumin (3.5-5.0) g/dL Lipase (23-300) U/L Urine Color Urine Appearance (Clear) Urine pH (5.0-8.0) Ur Specific [place] (1.001-1.035) Urine Protein (Negative) Urine Glucose (UA) (Negative) Urine Ketones (Negative) Urine Blood (Negative) Urine Nitrite (Negative) Urine Bilirubin (Negative) Urine Urobilinogen (<2.0) mg/dL Ur Leukocyte Esterase (Negative) Acetone, Qual (Negative) 10/25/19 10/25/19 Range/Units 08:45 09:22 WBC (3.8-10.6) k/uL RBC (4.30-5.90) m/uL Hgb (13.0-17.5) gm/dL Hct (39.0-53.0) % MCV (80.0-100.0) fL MCH (25.0-35.0) pg MCHC (31.0-37.0) g/dL RDW (11.5-15.5) % Plt Count (150-450) k/uL Neutrophils % % Lymphocytes % % Monocytes % % Eosinophils % % Basophils % % Neutrophils # (1.3-7.7) k/uL Lymphocytes # (1.0-4.8) k/uL Monocytes # (0-1.0) k/uL Eosinophils # (0-0.7) k/uL Basophils # (0-0.2) k/uL Manual Slide Review Large Platelets Hypochromasia VBG pH (7.31-7.41) VBG pCO2 (37-51) mmHg VBG HCO3 (24-28) mmol/L Sodium (137-145) mmol/L Potassium (3.5-5.1) mmol/L Chloride (98-107) mmol/L Carbon Dioxide (22-30) mmol/L Anion Gap mmol/L BUN (9-20) mg/dL Creatinine (0.66-1.25) mg/dL Est GFR (CKD-EPI)AfAm (>60 ml/min/1.73 sqM) Est GFR (CKD-EPI)NonAf (>60 ml/min/1.73 sqM) Glucose (74-99) mg/dL POC Glucose (mg/dL) 243 H (75-99) mg/dL POC Glu Member Services Coordinator ID Lois Traylor Plasma Lactic Acid Mynor (0.7-2.0) mmol/L Calcium (8.4-10.2) mg/dL Magnesium (1.6-2.3) mg/dL Total Bilirubin (0.2-1.3) mg/dL AST (17-59) U/L ALT (4-49) U/L Alkaline Phosphatase (38-126) U/L Total Protein (6.3-8.2) g/dL Albumin (3.5-5.0) g/dL Lipase (23-300) U/L Urine Color Yellow Urine Appearance Clear (Clear) Urine pH 6.5 (5.0-8.0) Ur Specific [place] 1.026 (1.001-1.035) Urine Protein Negative (Negative) Urine Glucose (UA) 4+ H (Negative) Urine Ketones Negative (Negative) Urine Blood Negative (Negative) Urine Nitrite Negative (Negative) Urine Bilirubin Negative (Negative) Urine Urobilinogen <2.0 (<2.0) mg/dL Ur Leukocyte Esterase Negative (Negative) Acetone, Qual (Negative) Disposition Clinical Impression: Hyperglycemia Disposition: HOME SELF-CARE Condition: Stable Instructions (If sedation given, give patient instructions): Diabetic Hyperglycemia (ED) Additional Instructions: Please return to the Emergency Department if symptoms worsen or any other concerns. Is patient prescribed a controlled substance at d/c from ED?: No Referrals: Marialuisa Espinoza MD [Primary Care Provider] - 1-2 days Time of Disposition: 09:37
[2019-10-25 06:58] LABS: VBG PH 7.35 (7.31-7.41)
[2019-10-25 07:07] LABS: ALT 69 U/L (4-49); AST 69 U/L (17-59); African American GFR (CKD) >90 (>60 ml/min/1.73 sqM); Albumin 3.8 g/dL (3.5-5.0); Alkaline Phosphatase 266 U/L (38-126); Anion Gap 9 mmol/L; Blood Urea Nitrogen 8 mg/dL (9-20); Calcium 8.9 mg/dL (8.4-10.2); Carbon Dioxide 29 mmol/L (22-30); Chloride 98 mmol/L (98-107); Glucose 374 mg/dL (74-99); Magnesium 1.7 mg/dL (1.6-2.3); Non-African American GFR(CKD) >90 (>60 ml/min/1.73 sqM); Potassium 3.8 mmol/L (3.5-5.1); Sodium 136 mmol/L (137-145); Total Bilirubin 0.5 mg/dL (0.2-1.3)
[2019-10-25 07:38] VITALS: BP 130/83; PULSE 91; RESP 18; TEMP 98
[2019-10-25 07:43] LABS: Basophils # (A) 0.1 k/uL (0-0.2); Basophils % (A) 1 %; Eosinophils # (A) 0.3 k/uL (0-0.7); Eosinophils % (A) 4 %; HCT 45.8 % (39.0-53.0); HGB 14.5 gm/dL (13.0-17.5); Hypochromasia Slight; Lymphocytes # (A) 1.8 k/uL (1.0-4.8); Lymphocytes % (A) 22 %; MCH 28.4 pg (25.0-35.0); MCHC 31.6 g/dL (31.0-37.0); MCV 89.8 fL (80.0-100.0); Monocytes # (A) 0.4 k/uL (0-1.0); Monocytes % (A) 4 %; Neutrophils # (A) 5.7 k/uL (1.3-7.7); Neutrophils % (A) 69 %; Platelet Count 118 k/uL (150-450); RBC 5.09 m/uL (4.30-5.90); RDW 13.1 % (11.5-15.5); WBC 8.4 k/uL (3.8-10.6)
[2019-10-25 08:04] LABS: Large Platelets Present
[2019-10-25 08:13] LABS: Glucose,Whole Blood 314 mg/dL (75-99)
[2019-10-25] MEDS ORDERED: INSULIN REGULAR 100 UNIT/ML VIAL IV ONE (08:13)
[2019-10-25 08:54] LABS: Appearance,Urine Clear (Clear); Bilirubin,Urine Negative (Negative); Blood,Urine Negative (Negative); Color,Urine Yellow; Glucose,Urine (UA) 4+ (Negative); Ketones,Urine Negative (Negative); Leukocyte Esterase,Urine Negative (Negative); Nitrite,Urine Negative (Negative); PH, Urine 6.5 (5.0-8.0); Protein,Urine Negative (Negative); Specific Gravity,Urine 1.026 (1.001-1.035); Urobilinogen,Urine <2.0 mg/dL (<2.0)
[2019-10-25 09:24] LABS: Glucose,Whole Blood 243 mg/dL (75-99)
== END 2019-10-25 10:03 | disposition home or self-care (01) ==
LOC: EC 06:18
DX: E11.65 Type 2 diabetes mellitus with hyperglycemia (principal); F31.9 Bipolar disorder, unspecified; G40.909 Epilepsy, unspecified, not intractable, without status epilepticus; F17.200 Nicotine dependence, unspecified, uncomplicated; Z79.4 Long term (current) use of insulin; Z79.899 Other long term (current) drug therapy; Z88.5 Allergy status to narcotic agent; Z88.8 Allergy status to other drugs, medicaments and biological substances; Z91.011 Allergy to milk products; R00.0 Tachycardia, unspecified
CPT/HCPCS: 36415; 80053; 81003; 82009; 82803; 83605; 83690; 83735; 85025; 96360; 96361; 99283

== ENCOUNTER 2020-01-27 11:59 | Emergency (ER) | payer MEDICARE, OTHER ==
[2020-01-27 12:05] VITALS: RESP 18
--- NOTE | 2020-01-27 12:28 | ED ---
General Adult HPI - General Chief complaint: Skin/Abscess/Foreign Body Stated complaint: infection Time Seen by Provider: 01/27/20 12:12 Source: patient Mode of arrival: ambulatory Limitations: no limitations - History of Present Illness Initial comments: Dictation was produced using [employer] dictation software. please excuse any grammatical, word or spelling errors. This patient was cared for during a federal and state declared state of emergenc y secondary to Covid 19 Chief Complaint: 44-year-old male with past medical history of necrotizing pancreatitis, incisional hernia presents with drainage from abdominal wound. History of Present Illness: 44-year-old male who was last operated on in December of last year. Patient states that this morning he woke up noticing that there was drainage coming from his surgical site. Patient states that after his procedure last year he had several days of abdominal wound drainage. Patient states he does have some mild surgical site pain. Is a diabetic and has been having difficulties managing her sugar for the last several days. Patient has any nausea vomiting. Does complain of some mild drainage site discomfort. Patient's rest of his abdomen feels otherwise well. The ROS documented in this emergency department record has been reviewed and confirmed by me. Those systems with pertinent positive or negative responses have been documented in the HPI. All other systems are other negative and/or noncontributory. PHYSICAL EXAM: General Impression: Alert and oriented x3, not in acute distress HEENT: Normocephalic atraumatic, extra-ocular movements intact, pupils equal and reactive to light bilaterally, mucous membranes moist. Cardiovascular: Heart regular rate and rhythm Chest: Able to complete full sentences, no retractions, no tachypnea Abdomen: abdomen soft, non-distended, no organomegaly, mild erythema around the inferior portion of patient's surgical scar. There is serous drainage coming from a pinpoint lesion. Musculoskeletal: Pulses present and equal in all extremities, no peripheral edema Motor: no focal deficits noted Neurological: CN II-XII grossly intact, no focal motor or sensory deficits noted Skin: Intact with no visualized rashes Psych: Normal affect and mood ED course: 44-year-old male with drainage coming from surgical site operated on last year. Vital signs upon arrival shows heart rate of 110, 94% on room air, rest of vital signs within acceptable limits. Chart review was performed. December last year patient had incisional hernia repair with mesh. [facility] care bedside ultrasound was performed showing no obvious anechoic area to suggest fluid collection. There isn't significant amount of cobblestoning to suggest cellulitic findings. Of note however there is a suspicion of communication of the skin with the peritoneal cavity. CBC is unremarkable. Metabolic panel shows glucose 527. Diffuse mild pseudohyponatremia with a sodium 132. Rest of labs unremarkable. She given 10 units of IV insulin. Repeat glucose is 265. Computed tomography scan of the abdomen and pelvis shows some intervenous fluid over the midline anterior abdomen could relate to hematoma seroma versus abscess. Consider patient's clinical presentation highly doubt abscess however considering that patient has uncontrolled diabetes with mild redness around the site of interest is concern of a infection. Patient given a dose of ceftriaxone and Bactrim. Case is discussed with Dr. Hicks who is patient's primary surgeon. He is agreeable for patient be discharged to follow-up in clinic on Wednesday. Patient prescription for Keflex and Bactrim. Return parameters discussed. Patient agreeable with discharge. - Related Data Home Medications Medication Instructions Recorded Confirmed Mirtazapine [Remeron] 15 mg PO HS 11/23/16 01/27/20 lamoTRIgine [LaMICtal] 100 mg PO BID 03/13/17 01/27/20 OLANZapine [ZyPREXA] 10 mg PO HS 03/28/18 01/27/20 Buprenorphine HCl/Naloxone HCl 1 tab SL BID 01/27/20 01/27/20 [Buprenorphin-Naloxon 8-2 mg Sl] Previous Rx's Medication Instructions Recorded Cephalexin [Keflex] 500 mg PO Q6HR 7 Days #28 cap 01/27/20 Sulfamethox-Tmp 800-160Mg [Bactrim 1 tab PO Q12HR 7 Days #14 tab 01/27/20 DS 800-160 mg] Allergies Allergy/AdvReac Type Severity Reaction Status Date / Time codeine Allergy Swelling Verified 01/27/20 12:59 furosemide [From Lasix] Allergy Rash/Hives Verified 01/27/20 12:59 haloperidol [From Haldol] Allergy Unknown Verified 01/27/20 12:59 prochlorperazine Allergy Swelling Verified 01/27/20 12:59 lactose AdvReac Diarrhea Verified 01/27/20 12:59 Review of Systems ROS Statement: Those systems with pertinent positive or pertinent negative responses have been documented in the HPI. ROS Other: All systems not noted in ROS Statement are negative. Past Medical History Past Medical History: COPD, Diabetes Mellitus, Musculoskeletal Disorder, Seizure Disorder Additional Past Medical History / Comment(s): History of seizures-per patient, his last seizure 2011, Hepatitis C, history of IV drug use, history of crack cocaine use, Degenerative disc disease in back, possible arthritis in knees, hips and arms, History of chronic pancreatitis, pancreatic pseudocyst formation, cyst on pancreas History of Any Multi-Drug Resistant Organisms: None Reported Past Surgical History: Appendectomy, Cholecystectomy Additional Past Surgical History / Comment(s): Bilat eye surgery-1998, drain for pancreatitis, RT LUNG THOROSCOPIC DECOTICATION, partial gastrectomy/removal of pancreatic psuedocyst and lysis of adhesions 12-16-2017 Past Anesthesia/Blood Transfusion Reactions: No Reported Reaction Past Psychological History: Bipolar, Depression Smoking Status: Current every day smoker Past Alcohol Use History: None Reported Past Drug Use History: None Reported - Past Family History Brother(s) Additional Family Medical History / Comment(s): Chronic alcoholism Sister(s) Additional Family Medical History / Comment(s): Chronic alcoholism Daughter(s) Family Medical History: No Reported History Additional Family Medical History / Comment(s): One daughter healthy Son(s) Family Medical History: No Reported History Additional Family Medical History / Comment(s): One son healthy Father History Unknown: Yes Family Medical History: AICD/Pacemaker, Myocardial Infarction ([place]) Additional Family Medical History / Comment(s): Schizophrenia. Per patient, his father at the age of 59 Mother History Unknown: Yes Family Medical History: No Reported History Additional Family Medical History / Comment(s): HPV General Exam Limitations: no limitations Course Vital Signs 01/27/20 01/27/20 12:01 14:00 Temperature 97.8 F Pulse Rate 110 H 92 Respiratory 18 18 Rate Blood Pressure 122/75 121/76 O2 Sat by Pulse 94 L 99 Oximetry Medical Decision Making - Lab Data Result diagrams: 01/27/20 12:24 01/27/20 12:24 Lab Results 01/27/20 01/27/20 01/27/20 Range/Units 12:24 12:24 12:24 WBC 7.4 (3.8-10.6) k/uL RBC 4.81 (4.30-5.90) m/uL Hgb 13.0 (13.0-17.5) gm/dL Hct 42.3 (39.0-53.0) % MCV 88.0 (80.0-100.0) fL MCH 27.0 (25.0-35.0) pg MCHC 30.7 L (31.0-37.0) g/dL RDW 13.8 (11.5-15.5) % Plt Count 110 L (150-450) k/uL Neutrophils % 68 % Lymphocytes % 21 % Monocytes % 4 % Eosinophils % 4 % Basophils % 1 % Neutrophils # 5.0 (1.3-7.7) k/uL Lymphocytes # 1.6 (1.0-4.8) k/uL Monocytes # 0.3 (0-1.0) k/uL Eosinophils # 0.3 (0-0.7) k/uL Basophils # 0.1 (0-0.2) k/uL Hypochromasia Slight Sodium 132 L (137-145) mmol/L Potassium 3.6 (3.5-5.1) mmol/L Chloride 97 L (98-107) mmol/L Carbon Dioxide 28 (22-30) mmol/L Anion Gap 7 mmol/L BUN 8 L (9-20) mg/dL Creatinine 0.55 L (0.66-1.25) mg/dL Est GFR (CKD-EPI)AfAm >90 (>60 ml/min/1.73 sqM) Est GFR (CKD-EPI)NonAf >90 (>60 ml/min/1.73 sqM) Glucose 527 H* (74-99) mg/dL POC Glucose (mg/dL) (75-99) mg/dL POC Glu Visual Developer ID Plasma Lactic Acid Myn[place] 1.6 (0.7-2.0) mmol/L Calcium 8.9 (8.4-10.2) mg/dL Total Bilirubin 0.6 (0.2-1.3) mg/dL AST 55 (17-59) U/L ALT 30 (4-49) U/L Alkaline Phosphatase 275 H (38-126) U/L Total Protein 6.7 (6.3-8.2) g/dL Albumin 3.6 (3.5-5.0) g/dL 01/27/20 Range/Units 14:47 WBC (3.8-10.6) k/uL RBC (4.30-5.90) m/uL Hgb (13.0-17.5) gm/dL Hct (39.0-53.0) % MCV (80.0-100.0) fL MCH (25.0-35.0) pg MCHC (31.0-37.0) g/dL RDW (11.5-15.5) % Plt Count (150-450) k/uL Neutrophils % % Lymphocytes % % Monocytes % % Eosinophils % % Basophils % % Neutrophils # (1.3-7.7) k/uL Lymphocytes # (1.0-4.8) k/uL Monocytes # (0-1.0) k/uL Eosinophils # (0-0.7) k/uL Basophils # (0-0.2) k/uL Hypochromasia Sodium (137-145) mmol/L Potassium (3.5-5.1) mmol/L Chloride (98-107) mmol/L Carbon Dioxide (22-30) mmol/L Anion Gap mmol/L BUN (9-20) mg/dL Creatinine (0.66-1.25) mg/dL Est GFR (CKD-EPI)AfAm (>60 ml/min/1.73 sqM) Est GFR (CKD-EPI)NonAf (>60 ml/min/1.73 sqM) Glucose (74-99) mg/dL POC Glucose (mg/dL) 265 H (75-99) mg/dL POC Glu Visual Developer ID Lois Traylor Plasma Lactic Acid M[place]or (0.7-2.0) mmol/L Calcium (8.4-10.2) mg/dL Total Bilirubin (0.2-1.3) mg/dL AST (17-59) U/L ALT (4-49) U/L Alkaline Phosphatase (38-126) U/L Total Protein (6.3-8.2) g/dL Albumin (3.5-5.0) g/dL Disposition Clinical Impression: Cellulitis Disposition: HOME SELF-CARE Condition: Fair Instructions (If sedation given, give patient instructions): Abscess (ED) Additional Instructions: Your prescriptions were sent to preferred pharmacy ready for pickup. Prescriptions: Sulfamethox-Tmp 800-160Mg [Bactrim DS 800-160 mg] 1 tab PO Q12HR 7 Days #14 tab Cephalexin [Keflex] 500 mg PO Q6HR 7 Days #28 cap Is patient prescribed a controlled substance at d/c from ED?: No Referrals: Donny Hicks MD [STAFF PHYSICIAN] - 1-2 days Time of Disposition: 15:07
[2020-01-27 12:56] LABS: Basophils # (A) 0.1 k/uL (0-0.2); Basophils % (A) 1 %; Eosinophils # (A) 0.3 k/uL (0-0.7); Eosinophils % (A) 4 %; HCT 42.3 % (39.0-53.0); Hypochromasia Slight; Lymphocytes # (A) 1.6 k/uL (1.0-4.8); Lymphocytes % (A) 21 %; MCHC 30.7 g/dL (31.0-37.0); Mean Platelet Volume 10.7; Monocytes # (A) 0.3 k/uL (0-1.0); Monocytes % (A) 4 %; Neutrophils % (A) 68 %; Platelet Count 110 k/uL (150-450); RBC 4.81 m/uL (4.30-5.90); RDW 13.8 % (11.5-15.5); WBC 7.4 k/uL (3.8-10.6)
[2020-01-27 13:02] LABS: ALT 30 U/L (4-49); AST 55 U/L (17-59); African American GFR (CKD) >90 (>60 ml/min/1.73 sqM); Albumin 3.6 g/dL (3.5-5.0); Alkaline Phosphatase 275 U/L (38-126); Anion Gap 7 mmol/L; Blood Urea Nitrogen 8 mg/dL (9-20); Calcium 8.9 mg/dL (8.4-10.2); Carbon Dioxide 28 mmol/L (22-30); Chloride 97 mmol/L (98-107); Non-African American GFR(CKD) >90 (>60 ml/min/1.73 sqM); Potassium 3.6 mmol/L (3.5-5.1); Sodium 132 mmol/L (137-145); Total Bilirubin 0.6 mg/dL (0.2-1.3); Total Protein 6.7 g/dL (6.3-8.2)
[2020-01-27 13:04] LABS: Glucose 527 mg/dL (74-99)
[2020-01-27] MEDS ORDERED: INSULIN REGULAR 100 UNIT/ML VIAL IV ONE (13:10)
--- NOTE | 2020-01-27 14:33 | CT ---
EXAMINATION TYPE: CT abdomen pelvis w con DATE OF EXAM: 01/27/2020 COMPARISON: 10/28/2018 HISTORY: infection CT DLP: 2304 mGycm Automated exposure control for dose reduction was used. CONTRAST: Performed with IV Contrast, patient injected with 100 ml mL of Isovue 300. Images obtained from the diaphragm to the floor the pelvis with IV contrast. The lung bases show mild subsegmental atelectasis. There is 1.5 cm calcified granuloma in the right m iddle lobe. There is no pleural effusion. There is no pericardial effusion. Heart size is normal. Liver appears normal. There is cholecystectomy. Spleen is enlarged and measures 18 cm. There are scat tered calcified splenic granulomata. There is surgical clips at the greater curvature of the stomach. There is 2 cm cystic area in the anterior body of the pancreas. There is some mild fat stranding at the tail of the pancreas at the splenic hilum. There is no adrenal mass. Kidneys show satisfactory contrast opacification. There is no hydronephrosi s. Ureters are not dilated. Delayed images show normal renal excretion. There is no retroperitoneal a denopathy. Bladder distends smoothly. There are bilateral inguinal hernias that contain fat. There is no mesenteric edema. There is no ascites. There is fat stranding and fluid collection along the midline anterior abdominal wall in the subcutaneous tissues. Lumbar vertebra have normal spacing and alignment. The posterior elements are intact. The bony pelvis is intact. Appendix is not seen. IMPRESSION: Changes in the pancreas could relate to chronic pancreatitis and pseudocyst formation. There is sligh t decrease in the fat stranding at the tail of the pancreas compared to old exam. There is new gastric bariatric surgery. There is moderately severe splenomegaly slightly increased compared to old exam. Spleen increased fro m 16 cm to 18 cm. Anterior abdominal wall hernia surgery. Subcutaneous fluid over the midline anterior abdomen could re late to hematoma or seroma that is new compared to old exam. Abscess not excluded.
[2020-01-27] MEDS ORDERED: SULFAMETHOX-TMP 800-160MG 1 EACH TAB PO STA (14:38)
[2020-01-27] MEDS ORDERED: cefTRIAXone IN SWFI 1,000 MG/10 ML SYRINGE IVP STA (14:38)
[2020-01-27 14:48] LABS: Glucose,Whole Blood 265 mg/dL (75-99)
[2020-01-27 15:19] VITALS: BP 133/83; PULSE 94; TEMP 98.8
== END 2020-01-27 15:17 | disposition home or self-care (01) ==
LOC: EC 11:59
DX: T81.49XA Infection following a procedure, other surgical site, initial encounter (principal); E11.9 Type 2 diabetes mellitus without complications; E87.1 Hypo-osmolality and hyponatremia; F31.9 Bipolar disorder, unspecified; G40.909 Epilepsy, unspecified, not intractable, without status epilepticus; F17.200 Nicotine dependence, unspecified, uncomplicated; Z79.891 Long term (current) use of opiate analgesic; Z79.899 Other long term (current) drug therapy; Z88.8 Allergy status to other drugs, medicaments and biological substances; Z88.5 Allergy status to narcotic agent; Z91.011 Allergy to milk products; Z90.89 Acquired absence of other organs; Z90.49 Acquired absence of other specified parts of digestive tract
CPT/HCPCS: 36415; 80053; 83605; 85025; 87040; 74177; 99284; 96374; 96375; J0696; Q9967

== ENCOUNTER 2020-02-02 07:16 | Inpatient (IN) | payer MEDICARE, OTHER ==
[2020-02-02] MEDS ORDERED: NALOXONE 0.4 MG/ML 1 ML VIAL IVP STA ×3 (07:20→09:22)
[2020-02-02] MEDS ORDERED: IPRATROPIUM 0.5 MG/2.5 ML NEBU INHALATION STA (07:22)
[2020-02-02] MEDS ORDERED: methylPREDNISolone SOD SUCCI 125 MG/2 ML VIAL IV STA (07:22)
[2020-02-02] MEDS ORDERED: ALBUTEROL NEBULIZED 2.5 MG/3 ML INHALATION STA (07:22)
--- NOTE | 2020-02-02 07:28 | ED ---
General Adult HPI - General Stated complaint: Weakness, SOB Time Seen by Provider: 02/02/20 07:16 Source: patient, EMS, RN notes reviewed, old records reviewed Mode of arrival: EMS Limitations: language barrier - History of Present Illness Initial comments: This is a 44-year-old male who presents emergency Department via EMS. EMS gave most of the report. They stated that the patient has a history of COPD and had some sort of pancreatic surgery 2 days ago and has an open wound in his abdomen. Patient was found on the floor next to his bed he believe he is trying to get out of bed patient states he remembers going to the floor he denies any pain. Patient denies a headache. Patient denies any neck pain. Patient does state he is finding it more difficult to breathe. Patient states is on Suboxone. Patient was 88% on room air when EMS arrived. Patient denies any chest pain. Patient states his abdominal pain is typical for his surgery it is not any worse. Patient denies any fever. - Related Data Home Medications Medication Instructions Recorded Confirmed Mirtazapine [Remeron] 15 mg PO HS 11/23/16 02/02/20 lamoTRIgine [LaMICtal] 100 mg PO BID 03/13/17 02/02/20 OLANZapine [ZyPREXA] 10 mg PO HS 03/28/18 02/02/20 Buprenorphine HCl/Naloxone HCl 1 tab SL BID 01/27/20 02/02/20 [Buprenorphin-Naloxon 8-2 mg Sl] Previous Rx's Medication Instructions Recorded Cephalexin [Keflex] 500 mg PO Q6HR 7 Days #28 cap 01/27/20 Sulfamethox-Tmp 800-160Mg [Bactrim 1 tab PO Q12HR 7 Days #14 tab 01/27/20 DS 800-160 mg] Allergies Allergy/AdvReac Type Severity Reaction Status Date / Time codeine Allergy Swelling Verified 02/02/20 09:44 furosemide [From Lasix] Allergy Rash/Hives Verified 02/02/20 09:44 haloperidol [From Haldol] Allergy Unknown Verified 02/02/20 09:44 prochlorperazine Allergy Swelling Verified 02/02/20 09:44 lactose AdvReac Diarrhea Verified 02/02/20 09:44 Review of Systems ROS Statement: Those systems with pertinent positive or pertinent negative responses have been documented in the HPI. ROS Other: All systems not noted in ROS Statement are negative. Past Medical History Past Medical History: COPD, Diabetes Mellitus, Musculoskeletal Disorder, Seizure Disorder Additional Past Medical History / Comment(s): History of seizures-per patient, his last seizure 2011, Hepatitis C, history of IV drug use, history of crack cocaine use, Degenerative disc disease in back, possible arthritis in knees, hips and arms, History of chronic pancreatitis, pancreatic pseudocyst formation, cyst on pancreas History of Any Multi-Drug Resistant Organisms: None Reported Past Surgical History: Appendectomy, Cholecystectomy Additional Past Surgical History / Comment(s): Bilat eye surgery-1998, drain for pancreatitis, RT LUNG THOROSCOPIC DECOTICATION, partial gastrectomy/removal of pancreatic psuedocyst and lysis of adhesions 12-16-2017 Past Anesthesia/Blood Transfusion Reactions: No Reported Reaction Past Psychological History: Bipolar, Depression Smoking Status: Current every day smoker Past Alcohol Use History: None Reported Past Drug Use History: None Reported - Past Family History Brother(s) Additional Family Medical History / Comment(s): Chronic alcoholism Sister(s) Additional Family Medical History / Comment(s): Chronic alcoholism Daughter(s) Family Medical History: No Reported History Additional Family Medical History / Comment(s): One daughter healthy Son(s) Family Medical History: No Reported History Additional Family Medical History / Comment(s): One son healthy Father History Unknown: Yes Family Medical History: AICD/Pacemaker, Myocardial Infarction ([place]) Additional Family Medical History / Comment(s): Schizophrenia. Per patient, his father at the age of 59 Mother History Unknown: Yes Family Medical History: No Reported History Additional Family Medical History / Comment(s): HPV General Exam - General Exam Comments Initial Comments: GENERAL: Patient is well-developed and well-nourished. Patient is nontoxic and well-hydrated and is in mild distress. Patient is very lethargic but is able to answer questions ENT: Neck is soft and supple. No significant lymphadenopathy is noted. Oropharynx is clear. Moist mucous membranes. Neck has full range of motion without eliciting any pain. EYES: The sclera were anicteric and conjunctiva were pink and moist. Extraocular movements were intact and pupils were equal round and reactive to light. Eyelids were unremarkable. PULMONARY: Unlabored respirations. Good breath sounds bilaterally. No audible rales rhonchi or wheezing was noted. CARDIOVASCULAR: There is a regular rate and rhythm without any murmurs gallops or rubs. ABDOMEN: Patient has crackles in both bases but a very poor inspiratory effort and has wheezing throughout. SKIN: Skin is clear with no lesions or rashes and otherwise unremarkable. NEUROLOGIC: Patient is alert and oriented x3. Cranial nerves II through XII are grossly intact. Motor and sensory are also intact. Normal speech, volume and content. Symmetrical smile. MUSCULOSKELETAL: Normal extremities with adequate strength and full range of motion. 1+ LYMPHATICS: No significant lymphadenopathy is noted PSYCHIATRIC: Difficult to assess secondary to the patient's medical status. Limitations: language barrier Course Vital Signs 02/02/20 02/02/20 02/02/20 07:18 07:29 07:38 Temperature 97.9 F Pulse Rate 100 100 Respiratory 18 22 Rate Blood Pressure 130/78 O2 Sat by Pulse 96 Oximetry 02/02/20 02/02/20 02/02/20 07:53 07:57 08:36 Temperature Pulse Rate 104 H 102 H Respiratory 20 28 H Rate Blood Pressure 124/82 O2 Sat by Pulse 100 Oximetry 02/02/20 02/02/20 09:25 09:51 Temperature Pulse Rate 98 Respiratory 18 20 Rate Blood Pressure 130/84 O2 Sat by Pulse 97 Oximetry Medical Decision Making - Medical Decision Making EKG shows normal sinus rhythm at 90 bpm NC interval is 146 QRS is 80 QT interval 376 QTC is 482. Patient's EKG shows no ST segment elevation or depression. Brother showed up and stated that he may have overdosed on Xanax because he often will take 10 or 15 at a time when he gets them from the neighbor. Brother also states the patient did not have surgery 2 days ago but about a year and a half ago. At 920 the brother stated the mother called him and stated that his Suboxone is missing and she thinks maybe he overdosed on Suboxone. Chest x-ray shows no acute abnormality. I spoke with Dr. Espinoza he wanted the patient admitted admitted the patient wrote admitting orders. Dr. Washington was contacted this patient going to the ICU and he agreed to accept the patient Patient was given 2 mg of Narcan and he took a while to respond but after about 10-15 minutes he was awake and oriented and oxygenating 98-99% - Lab Data Result diagrams: 02/02/20 07:31 02/02/20 07:31 Lab Results 02/02/20 02/02/20 02/02/20 Range/Units 07:28 07:31 07:31 WBC 10.6 (3.8-10.6) k/uL RBC 5.13 (4.30-5.90) m/uL Hgb 13.8 (13.0-17.5) gm/dL Hct 44.5 (39.0-53.0) % MCV 86.7 (80.0-100.0) fL MCH 27.0 (25.0-35.0) pg MCHC 31.1 (31.0-37.0) g/dL RDW 13.8 (11.5-15.5) % Plt Count 141 L (150-450) k/uL Neutrophils % 73 % Lymphocytes % 18 % Monocytes % 4 % Eosinophils % 4 % Basophils % 0 % Neutrophils # 7.8 H (1.3-7.7) k/uL Lymphocytes # 1.9 (1.0-4.8) k/uL Monocytes # 0.4 (0-1.0) k/uL Eosinophils # 0.4 (0-0.7) k/uL Basophils # 0.0 (0-0.2) k/uL Hypochromasia Slight PT 11.1 (9.0-12.0) sec INR 1.1 (<1.2) APTT 25.0 (22.0-30.0) sec Sample Site RRAD ABG pH 7.33 L (7.35-7.45) ABG pCO2 53 H (35-45) mmHg ABG pO2 73 L (83-108) mmHg ABG HCO3 28 H (21-25) mmol/L ABG Total CO2 30 H (19-24) mmol/L ABG O2 Saturation 94.0 (94-97) % ABG Base Excess 2.5 mmol/L Hugo Test Yes FiO2 50 % Sodium (137-145) mmol/L Potassium (3.5-5.1) mmol/L Chloride (98-107) mmol/L Carbon Dioxide (22-30) mmol/L Anion Gap mmol/L BUN (9-20) mg/dL Creatinine (0.66-1.25) mg/dL Est GFR (CKD-EPI)AfAm (>60 ml/min/1.73 sqM) Est GFR (CKD-EPI)NonAf (>60 ml/min/1.73 sqM) Glucose (74-99) mg/dL POC Glucose (mg/dL) (75-99) mg/dL POC Glu [employer] Maker ID Calcium (8.4-10.2) mg/dL Total Bilirubin (0.2-1.3) mg/dL AST (17-59) U/L ALT (4-49) U/L Alkaline Phosphatase (38-126) U/L Ammonia (<30) umol/L Troponin I (0.000-0.034) ng/mL NT-Pro-B Natriuret Pep pg/mL Total Protein (6.3-8.2) g/dL Albumin (3.5-5.0) g/dL Urine Color Urine Appearance (Clear) Urine pH (5.0-8.0) Ur Specific [place] (1.001-1.035) Urine Protein (Negative) Urine Glucose (UA) (Negative) Urine Ketones (Negative) Urine Blood (Negative) Urine Nitrite (Negative) Urine Bilirubin (Negative) Urine Urobilinogen (<2.0) mg/dL Ur Leukocyte Esterase (Negative) Urine WBC (0-5) /hpf Ur Squamous Epith Cells (0-4) /hpf Urine Mucus (None) /hpf Urine Opiates Screen (NotDetected) Ur Oxycodone Screen (NotDetected) Urine Methadone Screen (NotDetected) Ur Propoxyphene Screen (NotDetected) Ur Barbiturates Screen (NotDetected) U Tricyclic Antidepress (NotDetected) Ur Phencyclidine Scrn (NotDetected) Ur Amphetamines Screen (NotDetected) U Methamphetamines Scrn (NotDetected) U Benzodiazepines Scrn (NotDetected) Urine Cocaine Screen (NotDetected) U Marijuana (THC) Screen (NotDetected) Serum Alcohol mg/dL 02/02/20 02/02/20 02/02/20 Range/Units 07:31 07:31 07:31 WBC (3.8-10.6) k/uL RBC (4.30-5.90) m/uL Hgb (13.0-17.5) gm/dL Hct (39.0-53.0) % MCV (80.0-100.0) fL MCH (25.0-35.0) pg MCHC (31.0-37.0) g/dL RDW (11.5-15.5) % Plt Count (150-450) k/uL Neutrophils % % Lymphocytes % % Monocytes % % Eosinophils % % Basophils % % Neutrophils # (1.3-7.7) k/uL Lymphocytes # (1.0-4.8) k/uL Monocytes # (0-1.0) k/uL Eosinophils # (0-0.7) k/uL Basophils # (0-0.2) k/uL Hypochromasia PT (9.0-12.0) sec INR (<1.2) APTT (22.0-30.0) sec Sample Site ABG pH (7.35-7.45) ABG pCO2 (35-45) mmHg ABG pO2 (83-108) mmHg ABG HCO3 (21-25) mmol/L ABG Total CO2 (19-24) mmol/L ABG O2 Saturation (94-97) % ABG Base Excess mmol/L Hugo Test FiO2 % Sodium 137 (137-145) mmol/L Potassium 4.8 (3.5-5.1) mmol/L Chloride 103 (98-107) mmol/L Carbon Dioxide 27 (22-30) mmol/L Anion Gap 7 mmol/L BUN 12 (9-20) mg/dL Creatinine 0.58 L (0.66-1.25) mg/dL Est GFR (CKD-EPI)AfAm >90 (>60 ml/min/1.73 sqM) Est GFR (CKD-EPI)NonAf >90 (>60 ml/min/1.73 sqM) Glucose 265 H (74-99) mg/dL POC Glucose (mg/dL) (75-99) mg/dL POC Glu [employer] ID Calcium 9.0 (8.4-10.2) mg/dL Total Bilirubin 0.8 (0.2-1.3) mg/dL AST 73 H (17-59) U/L ALT 36 (4-49) U/L Alkaline Phosphatase 290 H (38-126) U/L Ammonia (<30) umol/L Troponin I <0.012 (0.000-0.034) ng/mL NT-Pro-B Natriuret Pep 16 pg/mL Total Protein 7.4 (6.3-8.2) g/dL Albumin 4.1 (3.5-5.0) g/dL Urine Color Urine Appearance (Clear) Urine pH (5.0-8.0) Ur Specific [place] (1.001-1.035) Urine Protein (Negative) Urine Glucose (UA) (Negative) Urine Ketones (Negative) Urine Blood (Negative) Urine Nitrite (Negative) Urine Bilirubin (Negative) Urine Urobilinogen (<2.0) mg/dL Ur Leukocyte Esterase (Negative) Urine WBC (0-5) /hpf Ur Squamous Epith Cells (0-4) /hpf Urine Mucus (None) /hpf Urine Opiates Screen (NotDetected) Ur Oxycodone Screen (NotDetected) Urine Methadone Screen (NotDetected) Ur Propoxyphene Screen (NotDetected) Ur Barbiturates Screen (NotDetected) U Tricyclic Antidepress (NotDetected) Ur Phencyclidine Scrn (NotDetected) Ur Amphetamines Screen (NotDetected) U Methamphetamines Scrn (NotDetected) U Benzodiazepines Scrn (NotDetected) Urine Cocaine Screen (NotDetected) U Marijuana (THC) Screen (NotDetected) Serum Alcohol <10 mg/dL 02/02/20 02/02/20 02/02/20 Range/Units 07:32 07:35 08:35 WBC (3.8-10.6) k/uL RBC (4.30-5.90) m/uL Hgb (13.0-17.5) gm/dL Hct (39.0-53.0) % MCV (80.0-100.0) fL MCH (25.0-35.0) pg MCHC (31.0-37.0) g/dL RDW (11.5-15.5) % Plt Count (150-450) k/uL Neutrophils % % Lymphocytes % % Monocytes % % Eosinophils % % Basophils % % Neutrophils # (1.3-7.7) k/uL Lymphocytes # (1.0-4.8) k/uL Monocytes # (0-1.0) k/uL Eosinophils # (0-0.7) k/uL Basophils # (0-0.2) k/uL Hypochromasia PT (9.0-12.0) sec INR (<1.2) APTT (22.0-30.0) sec Sample Site ABG pH (7.35-7.45) ABG pCO2 (35-45) mmHg ABG pO2 (83-108) mmHg ABG HCO3 (21-25) mmol/L ABG Total CO2 (19-24) mmol/L ABG O2 Saturation (94-97) % ABG Base Excess mmol/L Hugo Test FiO2 % Sodium (137-145) mmol/L Potassium (3.5-5.1) mmol/L Chloride (98-107) mmol/L Carbon Dioxide (22-30) mmol/L Anion Gap mmol/L BUN (9-20) mg/dL Creatinine (0.66-1.25) mg/dL Est GFR (CKD-EPI)AfAm (>60 ml/min/1.73 sqM) Est GFR (CKD-EPI)NonAf (>60 ml/min/1.73 sqM) Glucose (74-99) mg/dL POC Glucose (mg/dL) 315 H (75-99) mg/dL POC Glu [employer] Maker ID Svacha, II, [place] Calcium (8.4-10.2) mg/dL Total Bilirubin (0.2-1.3) mg/dL AST (17-59) U/L ALT (4-49) U/L Alkaline Phosphatase (38-126) U/L Ammonia 51 H (<30) umol/L Troponin I (0.000-0.034) ng/mL NT-Pro-B Natriuret Pep pg/mL Total Protein (6.3-8.2) g/dL Albumin (3.5-5.0) g/dL Urine Color Yellow Urine Appearance Clear (Clear) Urine pH 6.0 (5.0-8.0) Ur Specific [place] 1.027 (1.001-1.035) Urine Protein 1+ H (Negative) Urine Glucose (UA) Negative (Negative) Urine Ketones Negative (Negative) Urine Blood Negative (Negative) Urine Nitrite Negative (Negative) Urine Bilirubin Negative (Negative) Urine Urobilinogen 2.0 (<2.0) mg/dL Ur Leukocyte Esterase Negative (Negative) Urine WBC 1 (0-5) /hpf Ur Squamous Epith Cells <1 (0-4) /hpf Urine Mucus Many H (None) /hpf Urine Opiates Screen Not Detected (NotDetected) Ur Oxycodone Screen Not Detected (NotDetected) Urine Methadone Screen Not Detected (NotDetected) Ur Propoxyphene Screen Not Detected (NotDetected) Ur Barbiturates Screen Not Detected (NotDetected) U Tricyclic Antidepress Not Detected (NotDetected) Ur Phencyclidine Scrn Not Detected (NotDetected) Ur Amphetamines Screen Not Detected (NotDetected) U Methamphetamines Scrn Not Detected (NotDetected) U Benzodiazepines Scrn Detected H (NotDetected) Urine Cocaine Screen Not Detected (NotDetected) U Marijuana (THC) Screen Not Detected (NotDetected) Serum Alcohol mg/dL Critical Care Time Critical Care Time: Yes Total Critical Care Time: 35 Disposition Clinical Impression: Hypoxia, Lethargy, Hyperammonemia, Benzodiazepine overdose, Acute bronchospasm Disposition: ADMITTED IP TO THIS [facility] Time of Disposition: 09:35
[2020-02-02 07:31] LABS: ABG Base Excess 2.5 mmol/L; ABG HCO3 28 mmol/L (21-25); ABG PCO2 53 mmHg (35-45); ABG PH 7.33 (7.35-7.45); ABG PO2 73 mmHg (83-108); ABG TCO2 30 mmol/L (19-24); Allen Test Performed? Yes
[2020-02-02 07:37] LABS: Glucose,Whole Blood 315 mg/dL (75-99)
[2020-02-02 07:41] LABS: Basophils % (A) 0 %; Eosinophils # (A) 0.4 k/uL (0-0.7); Eosinophils % (A) 4 %; HCT 44.5 % (39.0-53.0); HGB 13.8 gm/dL (13.0-17.5); Hypochromasia Slight; Lymphocytes # (A) 1.9 k/uL (1.0-4.8); Lymphocytes % (A) 18 %; MCHC 31.1 g/dL (31.0-37.0); MCV 86.7 fL (80.0-100.0); Mean Platelet Volume 10.1; Monocytes # (A) 0.4 k/uL (0-1.0); Monocytes % (A) 4 %; Neutrophils # (A) 7.8 k/uL (1.3-7.7); Neutrophils % (A) 73 %; Platelet Count 141 k/uL (150-450); RBC 5.13 m/uL (4.30-5.90); RDW 13.8 % (11.5-15.5); WBC 10.6 k/uL (3.8-10.6)
[2020-02-02 07:53] LABS: ALT 36 U/L (4-49); AST 73 U/L (17-59); African American GFR (CKD) >90 (>60 ml/min/1.73 sqM); Albumin 4.1 g/dL (3.5-5.0); Alcohol <10 mg/dL; Alkaline Phosphatase 290 U/L (38-126); Anion Gap 7 mmol/L; Blood Urea Nitrogen 12 mg/dL (9-20); Carbon Dioxide 27 mmol/L (22-30); Chloride 103 mmol/L (98-107); Glucose 265 mg/dL (74-99); Non-African American GFR(CKD) >90 (>60 ml/min/1.73 sqM); Potassium 4.8 mmol/L (3.5-5.1); Sodium 137 mmol/L (137-145); Total Bilirubin 0.8 mg/dL (0.2-1.3); Total Protein 7.4 g/dL (6.3-8.2)
[2020-02-02 07:54] LABS: INR 1.1 (<1.2); Prothrombin Time 11.1 sec (9.0-12.0)
--- NOTE | 2020-02-02 08:19 | XR ---
EXAMINATION TYPE: XR chest 2V DATE OF EXAM: 02/02/2020 COMPARISON: Prior chest x-ray 11/19/2017 HISTORY: Altered mental status TECHNIQUE: Frontal and lateral views of the chest are obtained. FINDINGS: Patient is rotated. No significant interval change is evident. Lung volumes are low. IMPRESSION: Rotated expiratory exam. Probable subsegmental basilar atelectatic changes, follow-up as indicated
--- NOTE | 2020-02-02 08:35 | CT ---
EXAMINATION TYPE: CT brain cspine wo con DATE OF EXAM: 02/02/2020 COMPARISON: CT brain 05/15/2016 HISTORY: Pt was found on the floor not responding, possible fall. Altered mental status. Neck pain. CT DLP: 1752.1 mGycm. Automated Exposure Control for Dose Reduction was Utilized. TECHNIQUE: CT scan of the head and cervical spine are performed without contrast. FINDINGS: There is no acute intracranial hemorrhage or midline shift identified. Mild ventricular a nd sulcal prominence. Kauffman-white matter differentiation maintained. The globes are intact and the vis ualized sinuses are clear. The calvarium intact. Cervical spine is visualized in its entirety from C1 through upper thoracic levels and demonstrates m otion artifact degradation making evaluation suboptimal. No obvious acute fracture or dislocation. C1 -C2 articulation satisfactory and coronal images. There is dextroconvex scoliotic curvature positioni ng. Spinal canal grossly preserved. Vertebral body heights and disc space heights fairly well maintai jose alfredo. Visualized lungs show respiratory motion artifact degradation without pneumothorax. IMPRESSION: 1. Motion artifact degradation without acute fracture or dislocation in the cervical spine. 2. No acute intracranial hemorrhage or midline shift is seen. Mild diffuse cerebral atrophy noted.
[2020-02-02 08:52] LABS: Appearance,Urine Clear (Clear); Bilirubin,Urine Negative (Negative); Blood,Urine Negative (Negative); Color,Urine Yellow; Glucose,Urine (UA) Negative (Negative); Ketones,Urine Negative (Negative); Leukocyte Esterase,Urine Negative (Negative); Mucus,Urine Many /hpf; Nitrite,Urine Negative (Negative); Protein,Urine 1+ (Negative); Specific Gravity,Urine 1.027 (1.001-1.035); Squamous Epithelial Cell,Urine <1 /hpf (0-4); WBC,Urine 1 /hpf (0-5)
[2020-02-02 09:02] LABS: Amphetamine Screen,Urine Not Detected (NotDetected); Barbiturate Screen,Urine Not Detected (NotDetected); Benzodiazepines Screen,Urine Detected (NotDetected); Cocaine Screen,Urine Not Detected (NotDetected); Methadone Screen, Urine Not Detected (NotDetected); Opiate Screen,Urine Not Detected (NotDetected); Oxycodone Screen, Urine Not Detected (NotDetected); Phencyclidine Screen,Urine Not Detected (NotDetected); Tricyclic Antidepressant,Urine Not Detected (NotDetected); Urn Cannabinoid Scrn Not Detected (NotDetected)
[2020-02-02] MEDS ORDERED: NALOXONE 0.4 MG/ML 1 ML VIAL IV PRN (09:37)
[2020-02-02] MEDS: NALOXONE (MDV) 2 MG in SODIUM CHLORIDE 0.9% 250 ML IV SCH ×3 (10:18→20:16)
[2020-02-02 11:10] LABS: Amylase 36 U/L (30-110)
[2020-02-02 11:20] LABS: Glucose,Whole Blood 324 mg/dL (75-99)
[2020-02-02] MEDS: INSULIN ASPART (NovoLOG) 100 UNIT/ML VIAL SQ SCH (11:37)
[2020-02-02] MEDS: LACTULOSE 20 GM/30 ML CUP PO SCH ×2 (11:59→20:18)
[2020-02-02] MEDS: SODIUM CHLORIDE 0.9% 1,000 ML IV SCH (12:02)
--- NOTE | 2020-02-02 13:47 | P.GSCN ---
History of Present Illness Consult date: 02/02/20 Reason for Consult: Abdominal wall wound History of present illness: This a 44-year-old male. Patient was admitted through the emergency room. He hasn't overdoses Xanax. Patient had a recent seroma drained in the office to days ago. Patient is extensive drug abuse history. He is hepatitis C positive. Past Medical History Past Medical History: Asthma, COPD, Diabetes Mellitus, GERD/Reflux, Musculo skeletal Disorder, Seizure Disorder Additional Past Medical History / Comment(s): 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 with surgery/difficulty with incision healing/currently tx for cellulitis abdomin, IDDM type II, bronchitis, R lung spontaneous pneumo with surgery, last seizure 2011, hepatitis C with interferon over 6 yrs ago, past IV drug abuse-no drugs for one year/on suboxone, DDD, occasional low back pain, History of Any Multi-Drug Resistant Organisms: None Reported Past Surgical History: Appendectomy, Cholecystectomy Additional Past Surgical History / Comment(s): 2018 lap/laparotomy/partial omenectomy/cystogastrectomy/lysis of adhesions, 2019 open incision hernia repair with mesh-difficulty with incision healing since, EGD, colonoscopy, R lung thorascopy/decortication, bilateral eye RK for vision correction. Past Anesthesia/Blood Transfusion Reactions: No Reported Reaction Smoking Status: Current every day smoker - Past Family History Brother(s) Additional Family Medical History / Comment(s): Chronic alcoholism in 2 brothers Sister(s) Additional Family Medical History / Comment(s): Chronic alcoholism Daughter(s) Family Medical History: No Reported History Additional Family Medical History / Comment(s): One daughter healthy Son(s) Family Medical History: No Reported History Additional Family Medical History / Comment(s): One son healthy Father History Unknown: Yes Family Medical History: AICD/Pacemaker, Myocardial Infarction ([place]), Renal D isease Additional Family Medical History / Comment(s): Schizophrenia. Per patient, his father at the age of 59 from renal failure. Mother History Unknown: Yes Family Medical History: Hypertension Additional Family Medical History / Comment(s): HPV Medications and Allergies Home Medications Medication Instructions Recorded Confirmed Type Mirtazapine [Remeron] 15 mg PO HS 11/23/16 02/02/20 History lamoTRIgine [LaMICtal] 100 mg PO BID 03/13/17 02/02/20 History OLANZapine [ZyPREXA] 10 mg PO HS 03/28/18 02/02/20 History Buprenorphine HCl/Naloxone HCl 1 tab SL BID 01/27/20 02/02/20 History [Buprenorphin-Naloxon 8-2 mg Sl] Cephalexin [Keflex] 500 mg PO Q6HR 7 Days #28 cap 01/27/20 02/02/20 Rx Sulfamethox-Tmp 800-160Mg [Bactrim 1 tab PO Q12HR 7 Days #14 tab 01/27/20 02/02/20 Rx DS 800-160 mg] Allergies Allergy/AdvReac Type Severity Reaction Status Date / Time codeine Allergy Swelling Verified 02/02/20 09:44 furosemide [From Lasix] Allergy Rash/Hives Verified 02/02/20 09:44 haloperidol [From Haldol] Allergy Unknown Verified 02/02/20 09:44 prochlorperazine Allergy Swelling Verified 02/02/20 09:44 lactose AdvReac Diarrhea Verified 02/02/20 09:44 Surgical - Exam Vital Signs Temp Pulse Resp BP Pulse Ox 97.9 F 100 18 130/78 96 02/02/20 07:18 02/02/20 07:18 02/02/20 07:18 02/02/20 07:18 02/02/20 07:18 - General Patient's obtunded well developed, well nourished, no distress - Eyes PERRL - ENT normal pinna - Neck no masses - Respiratory normal expansion - Cardiovascular Rhythm: regular - Abdomen There is a 3 cm skin incision which is packed at the lower aspect of his abdominal wall scar. Abdomen: soft, non tender Results - Labs 02/02/20 07:31 02/02/20 07:31 Abnormal Lab Results - Last 24 Hours (Table) 02/02/20 02/02/20 02/02/20 Range/Units 07:28 07:31 07:31 Plt Count 141 L (150-450) k/uL Neutrophils # 7.8 H (1.3-7.7) k/uL ABG pH 7.33 L (7.35-7.45) ABG pCO2 53 H (35-45) mmHg ABG pO2 73 L (83-108) mmHg ABG HCO3 28 H (21-25) mmol/L ABG Total CO2 30 H (19-24) mmol/L Creatinine 0.58 L (0.66-1.25) mg/dL Glucose 265 H (74-99) mg/dL POC Glucose (mg/dL) (75-99) mg/dL AST 73 H (17-59) U/L Alkaline Phosphatase 290 H (38-126) U/L Ammonia (<30) umol/L Urine Protein (Negative) Urine Mucus (None) /hpf U Benzodiazepines Scrn (NotDetected) 02/02/20 02/02/20 02/02/20 Range/Units 07:32 07:35 08:35 Plt Count (150-450) k/uL Neutrophils # (1.3-7.7) k/uL ABG pH (7.35-7.45) ABG pCO2 (35-45) mmHg ABG pO2 (83-108) mmHg ABG HCO3 (21-25) mmol/L ABG Total CO2 (19-24) mmol/L Creatinine (0.66-1.25) mg/dL Glucose (74-99) mg/dL POC Glucose (mg/dL) 315 H (75-99) mg/dL AST (17-59) U/L Alkaline Phosphatase (38-126) U/L Ammonia 51 H (<30) umol/L Urine Protein 1+ H (Negative) Urine Mucus Many H (None) /hpf U Benzodiazepines Scrn Detected H (NotDetected) 02/02/20 Range/Units 11:18 Plt Count (150-450) k/uL Neutrophils # (1.3-7.7) k/uL ABG pH (7.35-7.45) ABG pCO2 (35-45) mmHg ABG pO2 (83-108) mmHg ABG HCO3 (21-25) mmol/L ABG Total CO2 (19-24) mmol/L Creatinine (0.66-1.25) mg/dL Glucose (74-99) mg/dL POC Glucose (mg/dL) 324 H (75-99) mg/dL AST (17-59) U/L Alkaline Phosphatase (38-126) U/L Ammonia (<30) umol/L Urine Protein (Negative) Urine Mucus (None) /hpf U Benzodiazepines Scrn (NotDetected) Diabetes panel 02/02/20 Range/Units 07:31 Sodium 137 (137-145) mmol/L Potassium 4.8 (3.5-5.1) mmol/L Chloride 103 (98-107) mmol/L Carbon Dioxide 27 (22-30) mmol/L BUN 12 (9-20) mg/dL Creatinine 0.58 L (0.66-1.25) mg/dL Glucose 265 H (74-99) mg/dL Calcium 9.0 (8.4-10.2) mg/dL AST 73 H (17-59) U/L ALT 36 (4-49) U/L Alkaline Phosphatase 290 H (38-126) U/L Total Protein 7.4 (6.3-8.2) g/dL Albumin 4.1 (3.5-5.0) g/dL Calcium panel 02/02/20 Range/Units 07:31 Calcium 9.0 (8.4-10.2) mg/dL Albumin 4.1 (3.5-5.0) g/dL Pituitary panel 02/02/20 Range/Units 07:31 Sodium 137 (137-145) mmol/L Potassium 4.8 (3.5-5.1) mmol/L Chloride 103 (98-107) mmol/L Carbon Dioxide 27 (22-30) mmol/L BUN 12 (9-20) mg/dL Creatinine 0.58 L (0.66-1.25) mg/dL Glucose 265 H (74-99) mg/dL Calcium 9.0 (8.4-10.2) mg/dL Adrenal panel 02/02/20 Range/Units 07:31 Sodium 137 (137-145) mmol/L Potassium 4.8 (3.5-5.1) mmol/L Chloride 103 (98-107) mmol/L Carbon Dioxide 27 (22-30) mmol/L BUN 12 (9-20) mg/dL Creatinine 0.58 L (0.66-1.25) mg/dL Glucose 265 H (74-99) mg/dL Calcium 9.0 (8.4-10.2) mg/dL Total Bilirubin 0.8 (0.2-1.3) mg/dL AST 73 H (17-59) U/L ALT 36 (4-49) U/L Alkaline Phosphatase 290 H (38-126) U/L Total Protein 7.4 (6.3-8.2) g/dL Albumin 4.1 (3.5-5.0) g/dL Assessment and Plan Assessment: Drug overdose. Patient will receive supportive care. Patient's wound is clean. He'll have what to dry dressings perform daily. We will consult the wound care clinic.
--- NOTE | 2020-02-02 13:58 | P.CNPUL ---
History of Present Illness Consult date: 02/02/20 Requesting physician: Marialuisa Espinoza Reason for consult: other (Drug overdose) Chief complaint: Altered mental status History of present illness: This is a 44-year-old gentleman who follows with Dr. Espinoza as his primary care provider. He has a history of previous partial gastrectomy, removal pancreatic pseudocyst and lysis of adhesions in November 2017. He is having ongoing issues with an open wound in the incision that his been packed and being followed by surgical services. He also has a history of COPD, chronic and ongoing tobacco dependence, bipolar disorder, seizure disorder, hepatitis C, history of IV drug abuse, history of crack cocaine use. He was brought into the emergency room this morning He presented to the emergency room after being found on the floor next to his bed. He admitted to taking someone else's Suboxone. Unclear as to how many tablets was taken. He was 88% on room air when EMS arrived. In the emergency room he denied any worsening shortness of breath, cough or congestion. He is somewhat obtunded. Arterial blood gases on 50% FiO2 revealed a pO2 73, pCO2 53, pH 7.33. He was initiated on Narcan drip. He is seen today in consultation in the intensive care unit. He is arousable. He drifts off easily. He denies suicide attempt. He states he was trying" to get high" declines to admit where he got this Suboxone. Unsure of how my tablets he took. He is currently maintaining O2 saturation is low 90s on 6 L/m per nasal cannula. She's been afebrile. Hemodynamically stable. White count 10.6. Hemoglobin 13.8. Sodium 137. Potassium 4.8. Creatinine 0.58. Ammonia level LI. Urine drug screen positive for benzodiazepines. Serum alcohol less than 10. Currently receiving 0.9 normal saline at 75 ML's per hour. Narcan drip is at 1 mg per hour. Review of Systems ROS unobtainable: due to mental status 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 with surgery/difficulty with incision healing/currently tx for cellulitis abdomin, IDDM type II, bronchitis, R lung spontaneous pneumo with surgery, last seizure 2011, hepatitis C with interferon over 6 yrs ago, past IV drug abuse-no drugs for one year/on suboxone, DDD, occasional low back pain, History of Any Multi-Drug Resistant Organisms: None Reported Past Surgical History: Appendectomy, Cholecystectomy Additional Past Surgical History / Comment(s): 2018 lap/laparotomy/partial omenectomy/cystogastrectomy/lysis of adhesions, 2019 open incision hernia repair with mesh-difficulty with incision healing since, EGD, colonoscopy, R lung thorascopy/decortication, bilateral eye RK for vision correction. Past Anesthesia/Blood Transfusion Reactions: No Reported Reaction Smoking Status: Current every day smoker - Past Family History Brother(s) Additional Family Medical History / Comment(s): Chronic alcoholism in 2 brothers Sister(s) Additional Family Medical History / Comment(s): Chronic alcoholism Daughter(s) Family Medical History: No Reported History Additional Family Medical History / Comment(s): One daughter healthy Son(s) Family Medical History: No Reported History Additional Family Medical History / Comment(s): One son healthy Father History Unknown: Yes Family Medical History: AICD/Pacemaker, Myocardial Infarction ([place]), Renal Disease Additional Family Medical History / Comment(s): Schizophrenia. Per patient, his father at the age of 59 from renal failure. Mother History Unknown: Yes Family Medical History: Hypertension Additional Family Medical History / Comment(s): HPV Medications and Allergies Home Medications Medication Instructions Recorded Confirmed Type Mirtazapine [Remeron] 15 mg PO HS 11/23/16 02/02/20 History lamoTRIgine [LaMICtal] 100 mg PO BID 03/13/17 02/02/20 History OLANZapine [ZyPREXA] 10 mg PO HS 03/28/18 02/02/20 History Buprenorphine HCl/Naloxone HCl 1 tab SL BID 01/27/20 02/02/20 History [Buprenorphin-Naloxon 8-2 mg Sl] Cephalexin [Keflex] 500 mg PO Q6HR 7 Days #28 cap 01/27/20 02/02/20 Rx Sulfamethox-Tmp 800-160Mg [Bactrim 1 tab PO Q12HR 7 Days #14 tab 01/27/20 02/02/20 Rx DS 800-160 mg] Allergies Allergy/AdvReac Type Severity Reaction Status Date / Time codeine Allergy Swelling Verified 02/02/20 09:44 furosemide [From Lasix] Allergy Rash/Hives Verified 02/02/20 09:44 haloperidol [From Haldol] Allergy Unknown Verified 02/02/20 09:44 prochlorperazine Allergy Swelling Verified 02/02/20 09:44 lactose AdvReac Diarrhea Verified 02/02/20 09:44 Physical Exam Vitals: Vital Signs Temp Pulse Resp BP Pulse Ox 02/02/20 12:00 91 18 109/65 92 L 02/02/20 11:30 93 21 121/67 90 L 02/02/20 11:20 98.1 F 98 24 124/64 92 L 02/02/20 11:03 98.9 F 87 19 133/86 98 02/02/20 10:18 17 02/02/20 09:51 98 20 130/84 97 02/02/20 09:25 18 02/02/20 08:36 102 H 28 H 124/82 100 02/02/20 07:57 104 H 02/02/20 07:53 20 02/02/20 07:38 100 02/02/20 07:29 22 02/02/20 07:18 97.9 F 100 18 130/78 96 Intake and Output 02/01/20 02/02/20 02/02/20 22:59 06:59 14:59 Intake Total 310 Output Total 0 Balance 310 Intake: IV 250 Naloxone (Mdv) 2 mg In 250 Sodium Chloride 0.9% 250 ml @ 1 MG/HR 125 mls/hr IV .Q2H [facility] Rx#:[id number] Oral 60 Output: Urine 0 Other: Weight 119.748 kg GENERAL EXAM: Arousable, soft asleep easily, 44-year-old gentleman, on 5 L nasal cannula, O2 saturation 92% HEAD: Normocephalic. EYES: Normal reaction of pupils, equal size. NOSE: Clear with pink turbinates. THROAT: No erythema or exudates. NECK: No masses, no JVD. CHEST: No chest wall deformity. LUNGS: Equal air entry with no crackles, wheeze, rhonchi or dullness. CVS: S1 and S2 normal with no audible murmur, regular rhythm. ABDOMEN: No hepatosplenomegaly, normal bowel sounds, no guarding or rigidity. SPINE: No scoliosis or deformity SKIN: No rashes CENTRAL NERVOUS SYSTEM: No focal deficits, tone is normal in all 4 extremities. EXTREMITIES: There is no peripheral edema. No clubbing, no cyanosis. Peripheral pulses are intact. Results - Laboratory Findings CBC and BMP: 02/02/20 07:31 02/02/20 07:31 ABG ABG pH 7.33 (7.35-7.45) L 02/02/20 07:28 ABG pCO2 53 mmHg (35-45) H 02/02/20 07:28 ABG pO2 73 mmHg (83-108) L 02/02/20 07:28 ABG O2 Saturation 94.0 % (94-97) 02/02/20 07:28 PT/INR, D-dimer PT 11.1 sec (9.0-12.0) 02/02/20 07:31 INR 1.1 (<1.2) 02/02/20 07:31 Abnormal lab findings: Abnormal Labs 02/02/20 02/02/20 02/02/20 07:28 07:31 07:31 Plt Count 141 L Neutrophils # 7.8 H ABG pH 7.33 L ABG pCO2 53 H ABG pO2 73 L ABG HCO3 28 H ABG Total CO2 30 H Creatinine 0.58 L Glucose 265 H POC Glucose (mg/dL) AST 73 H Alkaline Phosphatase 290 H Ammonia Urine Protein Urine Mucus U Benzodiazepines Scrn 02/02/20 02/02/20 02/02/20 07:32 07:35 08:35 Plt Count Neutrophils # ABG pH ABG pCO2 ABG pO2 ABG HCO3 ABG Total CO2 Creatinine Glucose POC Glucose (mg/dL) 315 H AST Alkaline Phosphatase Ammonia 51 H Urine Protein 1+ H Urine Mucus Many H U Benzodiazepines Scrn Detected H 02/02/20 11:18 Plt Count Neutrophils # ABG pH ABG pCO2 ABG pO2 ABG HCO3 ABG Total CO2 Creatinine Glucose POC Glucose (mg/dL) 324 H AST Alkaline Phosphatase Ammonia Urine Protein Urine Mucus U Benzodiazepines Scrn - Diagnostic Findings Chest x-ray: image reviewed Assessment and Plan Assessment: 1 Altered mental status secondary to Suboxone overdose 2 Acute hypoxemic/hypercapnic respiratory failure secondary to above 3 History of IV drug abuse, multiple drug abuse including crack cocaine 4 History of hepatitis C 5 History of partial gastrectomy/removal of pancreatic pseudocyst and lysis of adhesions in November 2017 with continuing ongoing open wound 6 History of right lung thorascopic decortication 7 Chronic obstructive pulmonary disease 8 Chronic tobacco dependence 9 Bipolar disorder 10 History of seizure disorder Plan: The patient was seen and evaluated by Dr. Washington Chest x-ray, drug screen, labs reviewed Continue Narcan drip for now Repeat ABGs this evening We will continue to monitor closely in the intensive care unit Titrate the FiO2 as tolerated Consult Dr. Hicks due to chronic open wound We will continue to follow and make further recommendations based on his clinical status I, the cosigning physician, performed a history & physical examination of the patient. Lungs sounds are clear. Maintaining good O2 saturations in the 90s on 6 L high flow nasal cannula. I discussed the assessment and plan of care with my nurse practitioner, Carmen Caldera. I attest to the above consultation as dictated by her.
--- NOTE | 2020-02-02 14:47 | P.HPIM ---
History of Present Illness H&P Date: 02/02/20 Juan Ralph, is a 44-year-old female who presented to [facility] emergency room, after being found unresponsive at home he was evaluated in the emergency room he was somnolent he told the emergency room physician that he took multiple pills of Suboxone and Xanax in an attempt to "get high", he denies any suicidal attempt or ideation. Patient was evaluated in the emergency room his temperature was 97.9 pulse 100 respiration 18 blood pressure 130/78 pulse ox 96% on 10 L mask, He was very somnolent but responsive to stimuli and answering a few questions before he returned to sleep, his laboratory data were significant for a white blood count of 10.6 hemoglobin 13.8 platelet count 141 pH 7.33 pCO2 53 by mouth to 73 sodium 137 potassium 4.8 chloride 103 CO2 27 BUN 12 creatinine 0.58 glucose level 265 AST 73 a LT 36 alkaline phosphatase 219 and ammonia level 51 patient was admitted to intensive care unit, critical care consultation was requested. Patient has a known history of diabetes mellitus, bipolar disorder, COPD, chronic pancreatitis with pancreatic pseudocyst in the past requiring surgery, history of hepatitis C with interferon treatment 6 years ago, history of drug abuse, patient has been maintained on Suboxone from an outside clinic. His past surgical history is significant for appendectomy, cholecystectomy, laparotomy with partial omentumectomy and lysis of adhesions in 2018, and the open incision hernia repair in 2019, at this time patient is still having an open wound in the lower part of the mid abdomen about 2 inch in diameter and 1 inch in depth he is followed by Dr. Hicks as outpatient and receives wound care from him. Review of systems is difficult to obtain due to somnolence, patient is denying any pain, he is denying any suicide attempt, he is requesting to be a no code. 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 with surgery/difficulty with incision healing/currently tx for cellulitis abdomin, IDDM type II, bronchitis, R lung spontaneous pneumo with surgery, last seizure 2011, hepatitis C with interferon over 6 yrs ago, past IV drug abuse-no drugs for one year/on suboxone, DDD, occasional low back pain, History of Any Multi-Drug Resistant Organisms: None Reported Past Surgical History: Appendectomy, Cholecystectomy Additional Past Surgical History / Comment(s): 2018 lap/laparotomy/partial omenectomy/cystogastrectomy/lysis of adhesions, 2019 open incision hernia repair with mesh-difficulty with incision healing since, EGD, colonoscopy, R lung thorascopy/decortication, bilateral eye RK for vision correction. Past Anesthesia/Blood Transfusion Reactions: No Reported Reaction Smoking Status: Current every day smoker - Past Family History Brother(s) Additional Family Medical History / Comment(s): Chronic alcoholism in 2 brothers Sister(s) Additional Family Medical History / Comment(s): Chronic alcoholism Daughter(s) Family Medical History: No Reported History Additional Family Medical History / Comment(s): One daughter healthy Son(s) Family Medical History: No Reported History Additional Family Medical History / Comment(s): One son healthy Father History Unknown: Yes Family Medical History: AICD/Pacemaker, Myocardial Infarction ([place]), Renal Disease Additional Family Medical History / Comment(s): Schizophrenia. Per patient, his father at the age of 59 from renal failure. Mother History Unknown: Yes Family Medical History: Hypertension Additional Family Medical History / Comment(s): HPV Medications and Allergies Home Medications Medication Instructions Recorded Confirmed Type Mirtazapine [Remeron] 15 mg PO HS 11/23/16 02/02/20 History lamoTRIgine [LaMICtal] 100 mg PO BID 03/13/17 02/02/20 History OLANZapine [ZyPREXA] 10 mg PO HS 03/28/18 02/02/20 History Buprenorphine HCl/Naloxone HCl 1 tab SL BID 01/27/20 02/02/20 History [Buprenorphin-Naloxon 8-2 mg Sl] Cephalexin [Keflex] 500 mg PO Q6HR 7 Days #28 cap 01/27/20 02/02/20 Rx Sulfamethox-Tmp 800-160Mg [Bactrim 1 tab PO Q12HR 7 Days #14 tab 01/27/20 02/02/20 Rx DS 800-160 mg] Allergies Allergy/AdvReac Type Severity Reaction Status Date / Time codeine Allergy Swelling Verified 02/02/20 09:44 furosemide [From Lasix] Allergy Rash/Hives Verified 02/02/20 09:44 haloperidol [From Haldol] Allergy Unknown Verified 02/02/20 09:44 prochlorperazine Allergy Swelling Verified 02/02/20 09:44 lactose AdvReac Diarrhea Verified 02/02/20 09:44 Physical Exam Vitals: Vital Signs Temp Pulse Resp BP Pulse Ox 02/02/20 12:00 91 18 109/65 92 L 02/02/20 11:30 93 21 121/67 90 L 02/02/20 11:20 98.1 F 98 24 124/64 92 L 02/02/20 11:03 98.9 F 87 19 133/86 98 02/02/20 10:18 17 02/02/20 09:51 98 20 130/84 97 02/02/20 09:25 18 02/02/20 08:36 102 H 28 H 124/82 100 02/02/20 07:57 104 H 02/02/20 07:53 20 02/02/20 07:38 100 02/02/20 07:29 22 02/02/20 07:18 97.9 F 100 18 130/78 96 Intake and Output 02/01/20 02/02/20 02/02/20 22:59 06:59 14:59 Intake Total 310 Output Total 0 Balance 310 Intake: IV 250 Naloxone (Mdv) 2 mg In 250 Sodium Chloride 0.9% 250 ml @ 1 MG/HR 125 mls/hr IV .Q2H [facility] Rx#:[id number] Oral 60 Output: Urine 0 Other: Weight 119.748 kg In general patient is somnolent arousable in no apparent distress HEENT head normocephalic and atraumatic Neck is supple no JVD no goiter no lymphadenopathy Chest exam reveals a few scattered rhonchi bilaterally no wheezing Cardiac exam reveals regular heart sounds no gallops no murmurs Abdomen is soft nontender no organomegaly with normal bowel sounds, there is a large open ulcer without any drainage in the middle lower abdomen as above Extremity exam reveals no edema no cyanosis or clubbing Neurological examination reveals no gross focal deficits Results CBC & Chem 7: 02/02/20 07:31 02/02/20 07:31 Labs: Abnormal Lab Results - Last 24 Hours (Table) 02/02/20 02/02/20 02/02/20 Range/Units 07:28 07:31 07:31 Plt Count 141 L (150-450) k/uL Neutrophils # 7.8 H (1.3-7.7) k/uL ABG pH 7.33 L (7.35-7.45) ABG pCO2 53 H (35-45) mmHg ABG pO2 73 L (83-108) mmHg ABG HCO3 28 H (21-25) mmol/L ABG Total CO2 30 H (19-24) mmol/L Creatinine 0.58 L (0.66-1.25) mg/dL Glucose 265 H (74-99) mg/dL POC Glucose (mg/dL) (75-99) mg/dL AST 73 H (17-59) U/L Alkaline Phosphatase 290 H (38-126) U/L Ammonia (<30) umol/L Urine Protein (Negative) Urine Mucus (None) /hpf U Benzodiazepines Scrn (NotDetected) 02/02/20 02/02/20 02/02/20 Range/Units 07:32 07:35 08:35 Plt Count (150-450) k/uL Neutrophils # (1.3-7.7) k/uL ABG pH (7.35-7.45) ABG pCO2 (35-45) mmHg ABG pO2 (83-108) mmHg ABG HCO3 (21-25) mmol/L ABG Total CO2 (19-24) mmol/L Creatinine (0.66-1.25) mg/dL Glucose (74-99) mg/dL POC Glucose (mg/dL) 315 H (75-99) mg/dL AST (17-59) U/L Alkaline Phosphatase (38-126) U/L Ammonia 51 H (<30) umol/L Urine Protein 1+ H (Negative) Urine Mucus Many H (None) /hpf U Benzodiazepines Scrn Detected H (NotDetected) 02/02/20 Range/Units 11:18 Plt Count (150-450) k/uL Neutrophils # (1.3-7.7) k/uL ABG pH (7.35-7.45) ABG pCO2 (35-45) mmHg ABG pO2 (83-108) mmHg ABG HCO3 (21-25) mmol/L ABG Total CO2 (19-24) mmol/L Creatinine (0.66-1.25) mg/dL Glucose (74-99) mg/dL POC Glucose (mg/dL) 324 H (75-99) mg/dL AST (17-59) U/L Alkaline Phosphatase (38-126) U/L Ammonia (<30) umol/L Urine Protein (Negative) Urine Mucus (None) /hpf U Benzodiazepines Scrn (NotDetected) Thrombosis Risk Factor Assmnt - Choose All That Apply Any of the Below Risk Factors Present?: Yes Each Factor Represents 1 point: Age 41-60 years, Medical pt on bed rest, Obesity (BMI >25), Serious lung disease incl. pneumonia (< 1month) Other Risk Factors: Yes Each Risk Factor Represents 2 Points: Patient confined to bed Other congenital or acquired thrombophilia - If yes, enter type in comment: No Thrombosis Risk Factor Assessment Total Risk Factor Score: 6 Thrombosis Risk Factor Assessment Level: High Risk Assessment and Plan Plan: 1. Somnolence secondary to old for dose of Suboxone and possibly Xanax, patient is somnolent arousable in no apparent distress, he will be kept nothing by mouth at this time will monitor closely in ICU 2. Elevated liver enzymes with history of hepatitis C treated in the past 3. Underlying history of multiple abdominal surgeries as discussed above, there is an open wound in the mid abdomen followed by surgery, no evidence of infection at this time 4. Acute hypoxic and hypercapnic respiratory failure secondary to drug overdose 5. Underlying history of bipolar disorder 6. History of pancreatic pseudocyst with surgery in the past. 7. Previous history of drug abuse. At this time patient is admitted to intensive care unit, pulmonary critical care and surgical consult requested Will check liver ultrasound and gastroenterology consultation in regard to elevated liver enzymes Will add psychiatry consult Will Lovenox for DVT prophylaxis and Protonix for GI prophylaxis Will follow closely
[2020-02-02] MEDS: IPRATROPIUM-ALBUTEROL 3 ML NEB INHALATION PRN (17:19)
[2020-02-02 18:05] LABS: Glucose,Whole Blood 423 mg/dL (75-99)
[2020-02-02] MEDS ORDERED: INSULIN REGULAR BOLUS (FROM DRIP BAG) IV PRN (18:05)
--- NOTE | 2020-02-02 18:15 | US ---
EXAMINATION TYPE: US liver DATE OF EXAM: 02/02/2020 COMPARISON: CT CLINICAL HISTORY: elevated liver enzymes. Gallbladder removed; prior hernia repair; possible pancreat ic pseudocyst. EXAM MEASUREMENTS: Liver Length: 21.4 cm Gallbladder Wall: surgically removed CBD: 0.6 cm Right Kidney: 10.4 x 5.3 x 4.9 cm US exam is technically due to overlying bowel gas. Pancreas: mid and tail obscured by overlying bowel gas Liver: enlarged, hyperechoic to right renal cortex and attenuated posteriorly is suggestive of fatty liver Gallbladder: recent surgical removal per [employer] Evidence for sonographic Dahl's sign: no CBD: size is wnl post laparoscopy cholecystectomy Right Kidney: No hydronephrosis or masses seen IMPRESSION: There is mild hepatomegaly. Mild fatty infiltration of the liver. No focal defect in the liver. No dilated ducts.
[2020-02-02] MEDS: INSULIN REGULAR 100 UNIT in SODIUM CHLORIDE 0.9% 100 ML IV SCH (18:48)
[2020-02-02 19:04] LABS: ABG Base Excess 1.6 mmol/L; ABG HCO3 26 mmol/L (21-25); ABG Oxygen Saturation 87.6 % (94-97); ABG PCO2 39 mmHg (35-45); ABG PH 7.43 (7.35-7.45); ABG TCO2 27 mmol/L (19-24); Allen Test Performed? Yes
[2020-02-02 19:06] LABS: ABG PO2 51 mmHg (83-108)
[2020-02-02 19:33] LABS: Glucose,Whole Blood 455 mg/dL (75-99)
[2020-02-02 20:12] LABS: Glucose,Whole Blood 376 mg/dL (75-99)
[2020-02-02 21:01] LABS: Glucose,Whole Blood 344 mg/dL (75-99)
[2020-02-02 22:04] LABS: Glucose,Whole Blood 224 mg/dL (75-99)
[2020-02-02 23:04] LABS: Glucose,Whole Blood 175 mg/dL (75-99)
[2020-02-02 23:54] LABS: Glucose,Whole Blood 157 mg/dL (75-99)
[2020-02-03 01:00] LABS: Glucose,Whole Blood 140 mg/dL (75-99)
[2020-02-03] MEDS: SODIUM CHLORIDE 0.9% 1,000 ML IV SCH ×3 (01:00→15:34)
[2020-02-03 02:16] LABS: Glucose,Whole Blood 146 mg/dL (75-99)
[2020-02-03 03:03] LABS: Glucose,Whole Blood 156 mg/dL (75-99)
[2020-02-03] MEDS: INSULIN REGULAR 100 UNIT in SODIUM CHLORIDE 0.9% 100 ML IV SCH (03:07)
[2020-02-03 04:05] LABS: Glucose,Whole Blood 176 mg/dL (75-99)
[2020-02-03 04:58] LABS: Basophils # (A) 0.1 k/uL (0-0.2); Basophils % (A) 1 %; Eosinophils # (A) 0.1 k/uL (0-0.7); Eosinophils % (A) 1 %; HCT 39.2 % (39.0-53.0); HGB 12.3 gm/dL (13.0-17.5); Hypochromasia Slight; Lymphocytes # (A) 1.4 k/uL (1.0-4.8); Lymphocytes % (A) 15 %; MCH 28.2 pg (25.0-35.0); MCHC 31.5 g/dL (31.0-37.0); MCV 89.5 fL (80.0-100.0); Mean Platelet Volume 9.8; Monocytes # (A) 0.4 k/uL (0-1.0); Monocytes % (A) 4 %; Neutrophils # (A) 7.2 k/uL (1.3-7.7); Neutrophils % (A) 78 %; Platelet Count 122 k/uL (150-450); RBC 4.38 m/uL (4.30-5.90); RDW 13.9 % (11.5-15.5); WBC 9.2 k/uL (3.8-10.6)
[2020-02-03 05:01] LABS: Glucose,Whole Blood 166 mg/dL (75-99)
[2020-02-03 05:10] LABS: ALT 27 U/L (4-49); AST 52 U/L (17-59); African American GFR (CKD) >90 (>60 ml/min/1.73 sqM); Albumin 3.1 g/dL (3.5-5.0); Alkaline Phosphatase 203 U/L (38-126); Anion Gap 4 mmol/L; Blood Urea Nitrogen 12 mg/dL (9-20); Calcium 8.7 mg/dL (8.4-10.2); Carbon Dioxide 26 mmol/L (22-30); Chloride 108 mmol/L (98-107); Glucose 190 mg/dL (74-99); Non-African American GFR(CKD) >90 (>60 ml/min/1.73 sqM); Potassium 4.7 mmol/L (3.5-5.1); Sodium 138 mmol/L (137-145); Total Bilirubin 0.4 mg/dL (0.2-1.3); Total Protein 5.9 g/dL (6.3-8.2)
[2020-02-03 05:59] LABS: Glucose,Whole Blood 155 mg/dL (75-99)
[2020-02-03 07:01] LABS: Glucose,Whole Blood 143 mg/dL (75-99)
--- NOTE | 2020-02-03 07:03 | XR ---
EXAMINATION TYPE: XR chest 1V portable DATE OF EXAM: 02/03/2020 COMPARISON: 02/12/2020 HISTORY: Altered mental status TECHNIQUE: Single frontal view of the chest is obtained. FINDINGS: There is bilateral lower lobe infiltrate and small effusion. Findings greater on the left. No overt failure or pneumothorax. Biapical pleural thickening. Heart size stable. IMPRESSION: 1. Bilateral infiltrate and small effusion greater on the left. Correlate for pneumonia.
[2020-02-03 08:00] LABS: Glucose,Whole Blood 141 mg/dL (75-99)
[2020-02-03 09:11] LABS: Glucose,Whole Blood 291 mg/dL (75-99)
[2020-02-03] MEDS: LACTULOSE 20 GM/30 ML CUP PO SCH ×2 (09:27→20:10)
[2020-02-03] MEDS: PANTOPRAZOLE 40 MG/10 ML VIAL IVP SCH (09:29)
[2020-02-03] MEDS: ENOXAPARIN 40 MG/0.4 ML SYRINGE SQ SCH (09:44)
[2020-02-03] MEDS: INSULIN DETEMIR (LEVEMIR) 100 UNIT/ML SYR SQ SCH (09:46)
[2020-02-03] MEDS: lamoTRIgine 100 MG TAB PO SCH ×2 (09:48→20:10)
--- NOTE | 2020-02-03 10:54 | P.PN ---
Subjective Progress Note Date: 02/03/20 Juan Ralph, is a 44-year-old female who presented to [facility] emergency room, after being found unresponsive at home he was evaluated in the emergency room he was somnolent he told the emergency room physician that he took multiple pills of Suboxone and Xanax in an attempt to "get high", he denies any suicidal attempt or ideation. Patient was evaluated in the emergency room his temperature was 97.9 pulse 100 respiration 18 blood pressure 130/78 pulse ox 96% on 10 L mask, He was very somnolent but responsive to stimuli and answering a few questions before he returned to sleep, his laboratory data were significant for a white blood count of 10.6 hemoglobin 13.8 platelet count 141 pH 7.33 pCO2 53 by mouth to 73 sodium 137 potassium 4.8 chloride 103 CO2 27 BUN 12 creatinine 0.58 glucose level 265 AST 73 a LT 36 alkaline phosphatase 219 and ammonia level 51 patient was admitted to intensive care unit, critical care consultation was requested. Patient has a known history of diabetes mellitus, bipolar disorder, COPD, chronic pancreatitis with pancreatic pseudocyst in the past requiring surgery, history of hepatitis C with interferon treatment 6 years ago, history of drug abuse, patient has been maintained on Suboxone from an outside clinic. His past surgical history is significant for appendectomy, cholecystectomy, laparotomy with partial omentumectomy and lysis of adhesions in 2018, and the open incision hernia repair in 2019, at this time patient is still having an open wound in the lower part of the mid abdomen about 2 inch in diameter and 1 inch in depth he is followed by Dr. Hicks as outpatient and receives wound care from him. Review of systems is difficult to obtain due to somnolence, patient is denying any pain, he is denying any suicide attempt, he is requesting to be a no code. On 02/03/2020 patient was seen and examined in the ICU he is alert and oriented 3 in no apparent distress there is no fever or chills no headache or dizziness no chest pain no shortness of breath no cough no nausea or vomiting no abdominal pain no diarrhea no blood in the stools no burning with urination no frequency or urgency and no hematuria. Patient is more alert today he is stating again that he took some pills in an attempt to get high he denies any suicidal ideation or attempts. He will be transferred out of ICU today. Objective - Vital Signs Vital signs: Vital Signs Temp 97.9 F 02/03/20 08:00 Pulse 94 02/03/20 09:00 Resp 22 02/03/20 09:00 BP 105/66 02/03/20 09:00 Pulse Ox 97 02/03/20 08:00 Intake & Output 02/02/20 02/03/20 02/03/20 18:59 06:59 18:59 Intake Total 1510 2549.698 469.175 Output Total 550 1350 0 Balance 960 1199.698 469.175 Weight 119.748 kg 124.7 kg Intake: IV 1450 1025 225 Naloxone (Mdv) 2 mg In 1000 125 Sodium Chloride 0.9% 250 ml @ 1 MG/HR 125 mls/hr IV .Q2H VINAYAK Rx#:[id number] Sodium Chloride 0.9% 1, 450 900 225 000 ml @ 10 mls/hr IV . Q24H VINAYAK Rx#:[id number] Intake, IV Titration 84.698 4.175 Amount Insulin Regular 100 unit 84.698 4.175 In Sodium Chloride 0.9% 100 ml @ Per Protocol IV .Q0M VINAYAK Rx#:[id number] Oral 60 1440 240 Output: Urine 550 1350 0 Other: Voiding Method Urinal Urinal Urinal # Voids 1 # Bowel Movements 1 - Exam In general patient is somnolent arousable in no apparent distress HEENT head normocephalic and atraumatic Neck is supple no JVD no goiter no lymphadenopathy Chest exam reveals a few scattered rhonchi bilaterally no wheezing Cardiac exam reveals regular heart sounds no gallops no murmurs Abdomen is soft nontender no organomegaly with normal bowel sounds, there is a large open ulcer without any drainage in the middle lower abdomen as above Extremity exam reveals no edema no cyanosis or clubbing Neurological examination reveals no gross focal deficits - Labs CBC & Chem 7: 02/03/20 04:42 02/03/20 04:42 Labs: Abnormal Lab Results - Last 24 Hours (Table) 02/02/20 02/02/20 02/02/20 Range/Units 11:18 18:03 19:01 Hgb (13.0-17.5) gm/dL Plt Count (150-450) k/uL ABG pO2 51 L* (83-108) mmHg ABG HCO3 26 H (21-25) mmol/L ABG Total CO2 27 H (19-24) mmol/L ABG O2 Saturation 87.6 L (94-97) % Chloride (98-107) mmol/L Creatinine (0.66-1.25) mg/dL Glucose (74-99) mg/dL POC Glucose (mg/dL) 324 H 423 H (75-99) mg/dL Alkaline Phosphatase (38-126) U/L Ammonia (<30) umol/L Total Protein (6.3-8.2) g/dL Albumin (3.5-5.0) g/dL 02/02/20 02/02/20 02/02/20 Range/Units 19:31 20:10 21:00 Hgb (13.0-17.5) gm/dL Plt Count (150-450) k/uL ABG pO2 (83-108) mmHg ABG HCO3 (21-25) mmol/L ABG Total CO2 (19-24) mmol/L ABG O2 Saturation (94-97) % Chloride (98-107) mmol/L Creatinine (0.66-1.25) mg/dL Glucose (74-99) mg/dL POC Glucose (mg/dL) 455 H 376 H 344 H (75-99) mg/dL Alkaline Phosphatase (38-126) U/L Ammonia (<30) umol/L Total Protein (6.3-8.2) g/dL Albumin (3.5-5.0) g/dL 02/02/20 02/02/20 02/02/20 Range/Units 22:03 23:03 23:53 Hgb (13.0-17.5) gm/dL Plt Count (150-450) k/uL ABG pO2 (83-108) mmHg ABG HCO3 (21-25) mmol/L ABG Total CO2 (19-24) mmol/L ABG O2 Saturation (94-97) % Chloride (98-107) mmol/L Creatinine (0.66-1.25) mg/dL Glucose (74-99) mg/dL POC Glucose (mg/dL) 224 H 175 H 157 H (75-99) mg/dL Alkaline Phosphatase (38-126) U/L Ammonia (<30) umol/L Total Protein (6.3-8.2) g/dL Albumin (3.5-5.0) g/dL 02/03/20 02/03/20 02/03/20 Range/Units 00:59 02:14 03:01 Hgb (13.0-17.5) gm/dL Plt Count (150-450) k/uL ABG pO2 (83-108) mmHg ABG HCO3 (21-25) mmol/L ABG Total CO2 (19-24) mmol/L ABG O2 Saturation (94-97) % Chloride (98-107) mmol/L Creatinine (0.66-1.25) mg/dL Glucose (74-99) mg/dL POC Glucose (mg/dL) 140 H 146 H 156 H (75-99) mg/dL Alkaline Phosphatase (38-126) U/L Ammonia (<30) umol/L Total Protein (6.3-8.2) g/dL Albumin (3.5-5.0) g/dL 02/03/20 02/03/20 02/03/20 Range/Units 04:03 04:42 04:42 Hgb 12.3 L (13.0-17.5) gm/dL Plt Count 122 L (150-450) k/uL ABG pO2 (83-108) mmHg ABG HCO3 (21-25) mmol/L ABG Total CO2 (19-24) mmol/L ABG O2 Saturation (94-97) % Chloride 108 H (98-107) mmol/L Creatinine 0.56 L (0.66-1.25) mg/dL Glucose 190 H (74-99) mg/dL POC Glucose (mg/dL) 176 H (75-99) mg/dL Alkaline Phosphatase 203 H (38-126) U/L Ammonia (<30) umol/L Total Protein 5.9 L (6.3-8.2) g/dL Albumin 3.1 L (3.5-5.0) g/dL 02/03/20 02/03/20 02/03/20 Range/Units 04:42 04:59 05:58 Hgb (13.0-17.5) gm/dL Plt Count (150-450) k/uL ABG pO2 (83-108) mmHg ABG HCO3 (21-25) mmol/L ABG Total CO2 (19-24) mmol/L ABG O2 Saturation (94-97) % Chloride (98-107) mmol/L Creatinine (0.66-1.25) mg/dL Glucose (74-99) mg/dL POC Glucose (mg/dL) 166 H 155 H (75-99) mg/dL Alkaline Phosphatase (38-126) U/L Ammonia 48 H (<30) umol/L Total Protein (6.3-8.2) g/dL Albumin (3.5-5.0) g/dL 02/03/20 02/03/20 02/03/20 Range/Units 07:00 07:59 09:08 Hgb (13.0-17.5) gm/dL Plt Count (150-450) k/uL ABG pO2 (83-108) mmHg ABG HCO3 (21-25) mmol/L ABG Total CO2 (19-24) mmol/L ABG O2 Saturation (94-97) % Chloride (98-107) mmol/L Creatinine (0.66-1.25) mg/dL Glucose (74-99) mg/dL POC Glucose (mg/dL) 143 H 141 H 291 H (75-99) mg/dL Alkaline Phosphatase (38-126) U/L Ammonia (<30) umol/L Total Protein (6.3-8.2) g/dL Albumin (3.5-5.0) g/dL Assessment and Plan Plan: 1. Somnolence secondary to overdose of Suboxone and possibly Xanax, patient is more alert today, he was started on diet and is tolerating well 2. Elevated liver enzymes with history of hepatitis C treated in the past, liver ultrasound results reviewed no acute abnormality seen with consult gastroenterology in regard to elevated liver enzymes 3. Underlying history of multiple abdominal surgeries as discussed above, there is an open wound in the mid abdomen followed by surgery, no evidence of infec tion at this time 4. Acute hypoxic and hypercapnic respiratory failure secondary to drug overdose 5. Underlying history of bipolar disorder 6. History of pancreatic pseudocyst with surgery in the past. 7. Previous history of drug abuse. At this time patient is admitted to intensive care unit, pulmonary critical care and surgical consult requested Will check liver ultrasound and gastroenterology consultation in regard to elevated liver enzymes Will add psychiatry consult Will Lovenox for DVT prophylaxis and Protonix for GI prophylaxis Will follow closely
[2020-02-03 12:10] LABS: Glucose,Whole Blood 170 mg/dL (75-99)
--- NOTE | 2020-02-03 12:13 | P.PN ---
Subjective Progress Note Date: 02/03/20 This is a 44-year-old gentleman who follows with Dr. Espinoza as his primary care provider. He has a history of previous partial gastrectomy, removal pancreatic pseudocyst and lysis of adhesions in November 2017. He is having ongoing issues with an open wound in the incision that his been packed and being followed by surgical services. He also has a history of COPD, chronic and ongoing tobacco dependence, bipolar disorder, seizure disorder, hepatitis C, history of IV drug abuse, history of crack cocaine use. He was brought into the emergency room this morning He presented to the emergency room after being found on the floor next to his bed. He admitted to taking someone else's Suboxone. Unclear as to how many tablets was taken. He was 88% on room air when EMS arrived. In the emergency room he denied any worsening shortness of breath, cough or congestion. He is somewhat obtunded. Arterial blood gases on 50% FiO2 revealed a pO2 73, pCO2 53, pH 7.33. He was initiated on Narcan drip. He is seen today in consultation in the intensive care unit. He is arousable. He drifts off easily. He denies suicide attempt. He states he was trying" to get high" declines to admit where he got this Suboxone. Unsure of how my tablets he took. He is currently maintaining O2 saturation is low 90s on 6 L/m per nasal cannula. She's been afebrile. Hemodynamically stable. White count 10.6. Hemoglobin 13.8. Sodium 137. Potassium 4.8. Creatinine 0.58. Ammonia level LI. Urine drug screen positive for benzodiazepines. Serum alcohol less than 10. Currently receiving 0.9 normal saline at 75 ML's per hour. Narcan drip is at 1 mg per hour. On 02/03/2020, the patient is fully awake and alert. Overnight the patient was taken off the Narcan drip and his mental status remained quite alert and oriented. He is currently on 2 L of oxygen by nasal cannula. He was seen by general surgery and the abdominal wound was obviously noninfected and the patient needed some further wound care. Appropriate packing was applied. The patient's ammonia level is down to 48. The patient's blood sugar was quite elevated earlier this morning. Overnight he was started on insulin 3.5 units an hour. He is currently on normal saline at the rate of 75 mL an hour. He will need to go back to long-acting insulin. He is tolerating diet. No nausea. No vomiting. No abdominal pain. No chest pain. No other complaints otherwise for now. Objective - Vital Signs Vital signs: Vital Signs Temp 97.9 F 02/03/20 08:00 Pulse 94 02/03/20 09:00 Resp 22 02/03/20 09:00 BP 105/66 02/03/20 09:00 Pulse Ox 97 02/03/20 08:00 Intake & Output 02/02/20 02/03/20 02/03/20 18:59 06:59 18:59 Intake Total 1510 2549.698 469.175 Output Total 550 1350 0 Balance 960 1199.698 469.175 Weight 119.748 kg 124.7 kg Intake: IV 1450 1025 225 Naloxone (Mdv) 2 mg In 1000 125 Sodium Chloride 0.9% 250 ml @ 1 MG/HR 125 mls/hr IV .Q2H [facility]AYAK Rx#:[id number] Sodium Chloride 0.9% 1, 450 900 225 000 ml @ 10 mls/hr IV . Q24H [facility]AK Rx#:[id number] Intake, IV Titration 84.698 4.175 Amount Insulin Regular 100 unit 84.698 4.175 In Sodium Chloride 0.9% 100 ml @ Per Protocol IV .Q0M [facility]AYAK Rx#:[id number] Oral 60 1440 240 Output: Urine 550 1350 0 Other: Voiding Method Urinal Urinal Urinal # Voids 1 # Bowel Movements 1 - Exam GENERAL EXAM: Arousable, soft asleep easily, 44-year-old gentleman, on 2 L nasal cannula, O2 saturation 92% HEAD: Normocephalic. EYES: Normal reaction of pupils, equal size. NOSE: Clear with pink turbinates. THROAT: No erythema or exudates. NECK: No masses, no JVD. CHEST: No chest wall deformity. LUNGS: Equal air entry with no crackles, wheeze, rhonchi or dullness. CVS: S1 and S2 normal with no audible murmur, regular rhythm. ABDOMEN: No hepatosplenomegaly, normal bowel sounds, no guarding or rigidity. SPINE: No scoliosis or deformity SKIN: No rashes CENTRAL NERVOUS SYSTEM: No focal deficits, tone is normal in all 4 extremities. EXTREMITIES: There is no peripheral edema. No clubbing, no cyanosis. Peripheral pulses are intact. - Labs CBC & Chem 7: 02/03/20 04:42 02/03/20 04:42 Labs: Abnormal Lab Results - Last 24 Hours (Table) 02/02/20 02/02/20 02/02/20 Range/Units 18:03 19:01 19:31 Hgb (13.0-17.5) gm/dL Plt Count (150-450) k/uL ABG pO2 51 L* (83-108) mmHg ABG HCO3 26 H (21-25) mmol/L ABG Total CO2 27 H (19-24) mmol/L ABG O2 Saturation 87.6 L (94-97) % Chloride (98-107) mmol/L Creatinine (0.66-1.25) mg/dL Glucose (74-99) mg/dL POC Glucose (mg/dL) 423 H 455 H (75-99) mg/dL Alkaline Phosphatase (38-126) U/L Ammonia (<30) umol/L Total Protein (6.3-8.2) g/dL Albumin (3.5-5.0) g/dL 02/02/20 02/02/20 02/02/20 Range/Units 20:10 21:00 22:03 Hgb (13.0-17.5) gm/dL Plt Count (150-450) k/uL ABG pO2 (83-108) mmHg ABG HCO3 (21-25) mmol/L ABG Total CO2 (19-24) mmol/L ABG O2 Saturation (94-97) % Chloride (98-107) mmol/L Creatinine (0.66-1.25) mg/dL Glucose (74-99) mg/dL POC Glucose (mg/dL) 376 H 344 H 224 H (75-99) mg/dL Alkaline Phosphatase (38-126) U/L Ammonia (<30) umol/L Total Protein (6.3-8.2) g/dL Albumin (3.5-5.0) g/dL 02/02/20 02/02/20 02/03/20 Range/Units 23:03 23:53 00:59 Hgb (13.0-17.5) gm/dL Plt Count (150-450) k/uL ABG pO2 (83-108) mmHg ABG HCO3 (21-25) mmol/L ABG Total CO2 (19-24) mmol/L ABG O2 Saturation (94-97) % Chloride (98-107) mmol/L Creatinine (0.66-1.25) mg/dL Glucose (74-99) mg/dL POC Glucose (mg/dL) 175 H 157 H 140 H (75-99) mg/dL Alkaline Phosphatase (38-126) U/L Ammonia (<30) umol/L Total Protein (6.3-8.2) g/dL Albumin (3.5-5.0) g/dL 02/03/20 02/03/20 02/03/20 Range/Units 02:14 03:01 04:03 Hgb (13.0-17.5) gm/dL Plt Count (150-450) k/uL ABG pO2 (83-108) mmHg ABG HCO3 (21-25) mmol/L ABG Total CO2 (19-24) mmol/L ABG O2 Saturation (94-97) % Chloride (98-107) mmol/L Creatinine (0.66-1.25) mg/dL Glucose (74-99) mg/dL POC Glucose (mg/dL) 146 H 156 H 176 H (75-99) mg/dL Alkaline Phosphatase (38-126) U/L Ammonia (<30) umol/L Total Protein (6.3-8.2) g/dL Albumin (3.5-5.0) g/dL 02/03/20 02/03/20 02/03/20 Range/Units 04:42 04:42 04:42 Hgb 12.3 L (13.0-17.5) gm/dL Plt Count 122 L (150-450) k/uL ABG pO2 (83-108) mmHg ABG HCO3 (21-25) mmol/L ABG Total CO2 (19-24) mmol/L ABG O2 Saturation (94-97) % Chloride 108 H (98-107) mmol/L Creatinine 0.56 L (0.66-1.25) mg/dL Glucose 190 H (74-99) mg/dL POC Glucose (mg/dL) (75-99) mg/dL Alkaline Phosphatase 203 H (38-126) U/L Ammonia 48 H (<30) umol/L Total Protein 5.9 L (6.3-8.2) g/dL Albumin 3.1 L (3.5-5.0) g/dL 02/03/20 02/03/20 02/03/20 Range/Units 04:59 05:58 07:00 Hgb (13.0-17.5) gm/dL Plt Count (150-450) k/uL ABG pO2 (83-108) mmHg ABG HCO3 (21-25) mmol/L ABG Total CO2 (19-24) mmol/L ABG O2 Saturation (94-97) % Chloride (98-107) mmol/L Creatinine (0.66-1.25) mg/dL Glucose (74-99) mg/dL POC Glucose (mg/dL) 166 H 155 H 143 H (75-99) mg/dL Alkaline Phosphatase (38-126) U/L Ammonia (<30) umol/L Total Protein (6.3-8.2) g/dL Albumin (3.5-5.0) g/dL 02/03/20 02/03/20 Range/Units 07:59 09:08 Hgb (13.0-17.5) gm/dL Plt Count (150-450) k/uL ABG pO2 (83-108) mmHg ABG HCO3 (21-25) mmol/L ABG Total CO2 (19-24) mmol/L ABG O2 Saturation (94-97) % Chloride (98-107) mmol/L Creatinine (0.66-1.25) mg/dL Glucose (74-99) mg/dL POC Glucose (mg/dL) 141 H 291 H (75-99) mg/dL Alkaline Phosphatase (38-126) U/L Ammonia (<30) umol/L Total Protein (6.3-8.2) g/dL Albumin (3.5-5.0) g/dL Assessment and Plan Plan: 1 Altered mental status secondary to Suboxone overdose, recovered and the patient was treated with Narcan. This was ultimately discontinued and the patient's mental status is normal and there are no signs of hypoventilation or respiratory insufficiency at this point in time. 2 Acute hypoxemic/hypercapnic respiratory failure secondary to above, recovered and the patient is currently on 2 L of oxygen by nasal cannula 3 History of IV drug abuse, multiple drug abuse including crack cocaine 4 History of hepatitis C 5 History of partial gastrectomy/removal of pancreatic pseudocyst and lysis of adhesions in November 2017 with continuing ongoing open wound 6 History of right lung thorascopic decortication 7 Chronic obstructive pulmonary disease 8 Chronic tobacco dependence 9 Bipolar disorder 10 History of seizure disorder 11 diabetes mellitus and the patient currently is on insulin drip at 3.5 units an hour 12 abdominal wounds, postsurgical without any acute drainage or infection Plan Start the patient on 50 units of Lantus along with fracture coverage and discontinue the insulin drip. Resumed home medications which included Zyprexa Remeron and limited fell Surgical consult was obtained and appreciated in regards to his abdominal wound and the appropriate packing has been applied Lovenox for DVT prophylaxis Lactulose for hepatic encephalopathy Psychiatric medication will be resumed We'll continue to follow. Can leave the ICU at a later stage.
[2020-02-03] MEDS: IPRATROPIUM-ALBUTEROL 3 ML NEB INHALATION PRN ×3 (12:16→20:17)
--- NOTE | 2020-02-03 12:28 | P.CN ---
Psychiatric Consult - . Consult date: 02/03/20 Consult:: IDENTIFYING DATA: This patient is a 44-year-old male with significant history of major depressive disorder and opiate use disorder who presented to [facility] after being found unresponsive in his home. HISTORY OF PRESENT ILLNESS: The patient presented to the hospital on 02/02/2020 after being found unresponsive in his home. Patient reports that he bought some illicit Xanax and decided to take some Xanax and Suboxone to "get high." Patient vehemently denies that this was a suicide attempt. He is not endorsing any significant symptoms of depression at this time. He reports no issues with sleep, appetite, hopelessness, helplessness, or anhedonia. In regards to hypomanic/manic symptoms he denies any racing thoughts, increased goal-directed behavior, grandiosity, or increased energy. He denies any auditory or visual hallucinations. He denies any paranoia or delusions. He reports a strong desire to live for his children. He reports that he has been adherent with his medications at home and have not caused him any side effects. PAST PSYCHIATRIC HISTORY: Patient has a a history of major depressive disorder, bipolar 2 disorder, and polysubstance use. His home psychiatric medications include Remeron, Lamictal, and Zyprexa. He is also prescribed Suboxone for opiate use disorder. He endorses medication adherence and denies any side effects. He has had other multiple trials of psychotropic medications including Haldol, prochlorperazine, Effexor, Abilify and Xanax. He has had multiple psychiatric inpatient hospitalizations. He reports a total of 7 at least. His last psychiatric hospitalization was in 2017 where he was treated for a depressive disorder with suicidal ideation. He currently follows with Dr. Ya for psychiatric outpatient treatment. Reports past attempts of suicide by overdose. PAST MEDICAL HISTORY: Asthma, COPD, diabetes, GERD, seizure disorder. ALLERGIES: as per EMR. CHEMICAL DEPENDENCY HISTORY: as per HPI. FAMILY PSYCHIATRIC/SUBSTANCE USE HISTORY: Other diagnosed with schizophrenia SOCIAL HISTORY: Patient was born and raised in [place]. He reports he has 2 children who are in [place]. He is currently . He has been twice previously. He lives in [place] by himself with his brother living in the same building. He receives Social Security disability. MENTAL STATUS EXAM: General Appearance: Patient appears to be stated age is alert, pleasant, and cooperative. Patient appears to have fair hygiene and grooming wearing hospital gown with fair eye contact. Behavior: Patient is calmly lying in bed without any agitated behavior. Speech: Patient's speech is fluent and nonpressured. Mood/Affect: Patient reports their mood is "doing great", affect is congruent, bright. Suicidality/Homicidality: Patient denies having any suicidal or homicidal ideation intent or plan. Perceptions: Patient denies any visual hallucinations and denies any auditory hallucinations Though content/process: There is no evidence of any delusional thought content and thought process is linear and goal-directed. Memory and concentration: AOX3, grossly intact for the purposes of this session. Can spell "WORLD" backwards Judgment and insight: Insight is fair. Judgment is poor. IMPRESSIONS: Bipolar disorder, type II Opiate use disorder Benzodiazepine use disorder PLAN: -At this time patient DOES NOT meet criteria for inpatient psychiatric admission. -Would recommend the following medication changes/additions: May continue patient's home psychotropic medications including Zyprexa 10 mg by mouth at bedtime, Lamictal 100 mg by mouth twice a day, and Remeron 15 mg by mouth at bedtime. -No need for suicide precautions at this time. -Psychiatry will sign off at this point, please contact with any questions. 02/03/20 12:18
[2020-02-03] MEDS: INSULIN ASPART (NovoLOG) 100 UNIT/ML VIAL SQ SCH ×4 (12:51→20:10)
--- NOTE | 2020-02-03 13:24 | P.CONS ---
History of Present Illness - Reason for Consult Consult date: 02/03/20 elevated liver enzymes Requesting physician: Brianda Manzanares - Chief Complaint overdose with Suboxone - History of Present Illness 44-year-old male with a medical history significant for tobacco dependence, bipolar disorder, seizure disorder, hepatitis C status post treatment with pegylated interferon and ribavirin with clearance of the virus, and history of COPD and IV drug abuse who presented to the hospital via EMS after being found on the floor next to his bed after taking Suboxone. The patient reports she took the medication trying "to get high". Patient has a surgical history significant for prior partial gastrectomy with removal of pancreatic pseudocyst and lysis of adhesions in 2018. Patient was found to have an elevated ammonia level on presentation. Currently he is seen resting comfortably in the ICU with no acute complaints with ammonia level of 51 today. Patient has been following up with the GI service in the outpatient setting. He denies any signs or symptoms of decompensated liver disease with no prior variceal bleeding, paracentesis for ascites or fluid overload or encephalopathy. He denies any significant history of alcohol abuse. No acute complaints at this time. Review of Systems REVIEW OF SYSTEMS: CONSTITUTIONAL: Denies any fevers, chills, weight change or fatigue. CARDIOVASCULAR: Denies any chest pain, palpitations high or low blood pressures RESPIRATORY: Denies any shortness of breath, hemoptysis or cough. GENITOURINARY: No dysuria or hematuria. MUSCULOSKELETAL: No weakness reported. SKIN: Denies any new rashes or lesions, jaundice or pallor. PSYCHIATRIC: Denies any current depression and mood but does have a history of bipolar disorder and substance abuse. NEUROLOGY: Denies headache, denies any new focal deficits. EARS/NOSE/THROAT: No recent hearing change, congestion, nasal discharge or sore throat. EYES: No pain in eyes, discharge or change in vision. GASTROINTESTINAL: As per HPI. 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 with surgery/difficulty with incision healing/ currently tx for cellulitis abdomin, IDDM type II, bronchitis, R lung spontaneous pneumo with surgery, last seizure 2011, hepatitis C with interferon over 6 yrs ago, past IV drug abuse-no drugs for one year/on suboxone, DDD, occasional low back pain, History of Any Multi-Drug Resistant Organisms: None Reported Past Surgical History: Appendectomy, Cholecystectomy Additional Past Surgical History / Comment(s): 2018 lap/laparotomy/partial omenectomy/cystogastrectomy/lysis of adhesions, 2019 open incision hernia repair with mesh-difficulty with incision healing since, EGD, colonoscopy, R lung thorascopy/decortication, bilateral eye RK for vision correction. Past Anesthesia/Blood Transfusion Reactions: No Reported Reaction Smoking Status: Current every day smoker - Past Family History Brother(s) Additional Family Medical History / Comment(s): Chronic alcoholism in 2 brothers Sister(s) Additional Family Medical History / Comment(s): Chronic alcoholism Daughter(s) Family Medical History: No Reported History Additional Family Medical History / Comment(s): One daughter healthy Son(s) Family Medical History: No Reported History Additional Family Medical History / Comment(s): One son healthy Father History Unknown: Yes Family Medical History: AICD/Pacemaker, Myocardial Infarction ([facility]), Renal Disease Additional Family Medical History / Comment(s): Schizophrenia. Per patient, his father at the age of 59 from renal failure. Mother History Unknown: Yes Family Medical History: Hypertension Additional Family Medical History / Comment(s): HPV Medications and Allergies Home Medications Medication Instructions Recorded Confirmed Type Mirtazapine [Remeron] 15 mg PO HS 11/23/16 02/02/20 History lamoTRIgine [LaMICtal] 100 mg PO BID 03/13/17 02/02/20 History OLANZapine [ZyPREXA] 10 mg PO HS 03/28/18 02/02/20 History Buprenorphine HCl/Naloxone HCl 1 tab SL BID 01/27/20 02/02/20 History [Buprenorphin-Naloxon 8-2 mg Sl] Cephalexin [Keflex] 500 mg PO Q6HR 7 Days #28 cap 01/27/20 02/02/20 Rx Sulfamethox-Tmp 800-160Mg [Bactrim 1 tab PO Q12HR 7 Days #14 tab 01/27/20 02/02/20 Rx DS 800-160 mg] Allergies Allergy/AdvReac Type Severity Reaction Status Date / Time codeine Allergy Swelling Verified 02/02/20 09:44 furosemide [From Lasix] Allergy Rash/Hives Verified 02/02/20 09:44 haloperidol [From Haldol] Allergy Unknown Verified 02/02/20 09:44 prochlorperazine Allergy Swelling Verified 02/02/20 09:44 lactose AdvReac Diarrhea Verified 02/02/20 09:44 Physical Exam Vitals: Vital Signs Temp Pulse Resp BP Pulse Ox 02/03/20 09:00 94 22 105/66 02/03/20 08:00 97.9 F 81 17 92/57 97 02/03/20 07:45 22 02/03/20 07:00 75 14 92/59 95 02/03/20 06:00 80 17 93/58 97 02/03/20 05:00 78 16 99/60 96 02/03/20 04:00 98 F 82 17 104/68 97 02/03/20 03:00 81 17 99/62 96 02/03/20 02:00 77 15 107/67 97 02/03/20 01:00 74 18 115/75 94 L 02/03/20 00:02 85 17 97 02/03/20 00:00 97.9 F 86 20 95/49 100 02/02/20 23:00 86 13 119/65 94 L 02/02/20 22:00 92 12 115/66 94 L 02/02/20 21:00 102 H 22 115/67 92 L 02/02/20 20:00 98.2 F 101 H 28 H 115/67 95 02/02/20 19:00 97 19 94/66 93 L 02/02/20 18:00 99 22 102/69 91 L 02/02/20 17:27 94 02/02/20 17:18 94 02/02/20 17:00 96 31 H 102/69 93 L 02/02/20 16:45 19 93 L 02/02/20 16:00 97.7 F 85 20 104/69 93 L 02/02/20 15:00 94 13 104/69 91 L 02/02/20 14:00 88 22 106/68 92 L 02/02/20 13:00 84 18 105/62 91 L 02/02/20 12:00 91 18 109/65 92 L 02/02/20 11:30 93 31 H 121/67 93 L 02/02/20 11:20 98.1 F 98 24 124/64 92 L 02/02/20 11:03 98.9 F 87 19 133/86 98 Intake and Output 02/02/20 02/03/20 02/03/20 22:59 06:59 14:59 Intake Total 3668.520 6047.875 469.175 Output Total 875 1025 0 Balance 593.156 2127.875 469.175 Intake: IV 1225 600 225 Naloxone (Mdv) 2 mg In 625 Sodium Chloride 0.9% 250 ml @ 1 MG/HR 125 mls/hr IV .Q2H [facility]AK Rx#:[id number] Sodium Chloride 0.9% 1, 600 600 225 000 ml @ 10 mls/hr IV . Q24H [facility]AK Rx#:[id number] Intake, IV Titration 47.823 36.875 4.175 Amount Insulin Regular 100 unit 47.823 36.875 4.175 In Sodium Chloride 0.9% 100 ml @ Per Protocol IV .Q0M [facility]AK Rx#:[id number] Oral 1440 240 Output: Urine 875 1025 0 Other: Voiding Method Urinal Urinal Urinal # Bowel Movements 1 Weight 124.7 kg On physical examination, patient appears comfortable in no apparent distress. HEAD: Normocephalic, atraumatic. EYES: No scleral icterus. No conjunctival injection. MOUTH: No lesions, tongue midline. NECK: Trachea midline, no gross abnormalities. CHEST: Clear to auscultation with no wheezing or rhonchi appreciated. HEART: Regular rate and rhythm. ABDOMEN: Soft, obese, and nontender to palpation. Patient reports straining wounds from prior surgeries currently wrapped. Bowel sounds are positive. No organomegaly. No guarding or rigidity. EXTREMITIES: No pedal edema. SKIN: No rashes, no jaundice. NEUROLOGIC: Alert and oriented x3with no evidence of asterixis. No focal defici ts. Results CBC & Chem 7: 02/03/20 04:42 02/03/20 04:42 Labs: Abnormal Lab Results - Last 24 Hours (Table) 02/02/20 02/02/20 02/02/20 Range/Units 11:18 18:03 19:01 Hgb (13.0-17.5) gm/dL Plt Count (150-450) k/uL ABG pO2 51 L* (83-108) mmHg ABG HCO3 26 H (21-25) mmol/L ABG Total CO2 27 H (19-24) mmol/L ABG O2 Saturation 87.6 L (94-97) % Chloride (98-107) mmol/L Creatinine (0.66-1.25) mg/dL Glucose (74-99) mg/dL POC Glucose (mg/dL) 324 H 423 H (75-99) mg/dL Alkaline Phosphatase (38-126) U/L Ammonia (<30) umol/L Total Protein (6.3-8.2) g/dL Albumin (3.5-5.0) g/dL 02/02/20 02/02/20 02/02/20 Range/Units 19:31 20:10 21:00 Hgb (13.0-17.5) gm/dL Plt Count (150-450) k/uL ABG pO2 (83-108) mmHg ABG HCO3 (21-25) mmol/L ABG Total CO2 (19-24) mmol/L ABG O2 Saturation (94-97) % Chloride (98-107) mmol/L Creatinine (0.66-1.25) mg/dL Glucose (74-99) mg/dL POC Glucose (mg/dL) 455 H 376 H 344 H (75-99) mg/dL Alkaline Phosphatase (38-126) U/L Ammonia (<30) umol/L Total Protein (6.3-8.2) g/dL Albumin (3.5-5.0) g/dL 02/02/20 02/02/20 02/02/20 Range/Units 22:03 23:03 23:53 Hgb (13.0-17.5) gm/dL Plt Count (150-450) k/uL ABG pO2 (83-108) mmHg ABG HCO3 (21-25) mmol/L ABG Total CO2 (19-24) mmol/L ABG O2 Saturation (94-97) % Chloride (98-107) mmol/L Creatinine (0.66-1.25) mg/dL Glucose (74-99) mg/dL POC Glucose (mg/dL) 224 H 175 H 157 H (75-99) mg/dL Alkaline Phosphatase (38-126) U/L Ammonia (<30) umol/L Total Protein (6.3-8.2) g/dL Albumin (3.5-5.0) g/dL 02/03/20 02/03/20 02/03/20 Range/Units 00:59 02:14 03:01 Hgb (13.0-17.5) gm/dL Plt Count (150-450) k/uL ABG pO2 (83-108) mmHg ABG HCO3 (21-25) mmol/L ABG Total CO2 (19-24) mmol/L ABG O2 Saturation (94-97) % Chloride (98-107) mmol/L Creatinine (0.66-1.25) mg/dL Glucose (74-99) mg/dL POC Glucose (mg/dL) 140 H 146 H 156 H (75-99) mg/dL Alkaline Phosphatase (38-126) U/L Ammonia (<30) umol/L Total Protein (6.3-8.2) g/dL Albumin (3.5-5.0) g/dL 02/03/20 02/03/20 02/03/20 Range/Units 04:03 04:42 04:42 Hgb 12.3 L (13.0-17.5) gm/dL Plt Count 122 L (150-450) k/uL ABG pO2 (83-108) mmHg ABG HCO3 (21-25) mmol/L ABG Total CO2 (19-24) mmol/L ABG O2 Saturation (94-97) % Chloride 108 H (98-107) mmol/L Creatinine 0.56 L (0.66-1.25) mg/dL Glucose 190 H (74-99) mg/dL POC Glucose (mg/dL) 176 H (75-99) mg/dL Alkaline Phosphatase 203 H (38-126) U/L Ammonia (<30) umol/L Total Protein 5.9 L (6.3-8.2) g/dL Albumin 3.1 L (3.5-5.0) g/dL 02/03/20 02/03/20 02/03/20 Range/Units 04:42 04:59 05:58 Hgb (13.0-17.5) gm/dL Plt Count (150-450) k/uL ABG pO2 (83-108) mmHg ABG HCO3 (21-25) mmol/L ABG Total CO2 (19-24) mmol/L ABG O2 Saturation (94-97) % Chloride (98-107) mmol/L Creatinine (0.66-1.25) mg/dL Glucose (74-99) mg/dL POC Glucose (mg/dL) 166 H 155 H (75-99) mg/dL Alkaline Phosphatase (38-126) U/L Ammonia 48 H (<30) umol/L Total Protein (6.3-8.2) g/dL Albumin (3.5-5.0) g/dL 02/03/20 02/03/20 02/03/20 Range/Units 07:00 07:59 09:08 Hgb (13.0-17.5) gm/dL Plt Count (150-450) k/uL ABG pO2 (83-108) mmHg ABG HCO3 (21-25) mmol/L ABG Total CO2 (19-24) mmol/L ABG O2 Saturation (94-97) % Chloride (98-107) mmol/L Creatinine (0.66-1.25) mg/dL Glucose (74-99) mg/dL POC Glucose (mg/dL) 143 H 141 H 291 H (75-99) mg/dL Alkaline Phosphatase (38-126) U/L Ammonia (<30) umol/L Total Protein (6.3-8.2) g/dL Albumin (3.5-5.0) g/dL Chest x-ray: report reviewed (bilateral effusions and infiltrate on chest x-ray) Assessment and Plan (1) Hyperammonemia Narrative/Plan: 44-year-old male presenting to the hospital for evaluation after what he states was an unintentional overdose with Suboxone. Patient has a history of hepatitis C for which she reports [facility] of [facility] with ribavir[facility] and PEG interferon. He denies any prior decompensated liver disease with no encephalopathy reported, variceal bleeding or fluid overl oad requiring paracentesis or diuretic therapy. Hyperammonemia may be related to multiple medications, and currently patient is not appearing encephalopathic with no signs of asterixis on physical exam, although he has been receiving lactulose therapy. He denies any history of cirrhosis. Current Visit: Yes Status: Acute Code(s): E72.20 - DISORDER OF UREA CYCLE METABOLISM, UNSPECIFIED SNOMED Code(s): 5347264 (2) S/P gastrointestinal surgery Current Visit: No Status: Acute Code(s): Z98.890 - OTHER SPECIFIED POSTPROCEDURAL STATES SNOMED Code(s): 566025221 (3) History of hepatitis C Current Visit: No Status: Resolved Code(s): Z86.19 - PERSONAL HISTORY OF OTHER INFECTIOUS AND PARASITIC DISEASES SNOMED Code(s): 45734975071429 Plan: supportive care Okay for sodium restricted diet Continue ICU management Continue monitor CBC, BMP, LFTs and ammonia Ultrasound of the abdomen ordered for assessment of ascites Okay to continue lactulose therapy for now Thank you for allowing us to participate in the care of the patient
[2020-02-03 13:45] LABS: Hemoglobin A1C 10.7 % (4.0-6.0)
--- NOTE | 2020-02-03 14:07 | US ---
EXAMINATION TYPE: US abdomen limited DATE OF EXAM: 02/03/2020 COMPARISON: US & CT CLINICAL HISTORY: Evaluate for ascites. All four quadrants scanned, no free fluid seen. IMPRESSION: 1. Limited ultrasound demonstrates no diagnostic evidence of ascites.
--- NOTE | 2020-02-03 15:11 | P.PN ---
Subjective Progress Note Date: 02/03/20 CHIEF COMPLAINT: Draining abdominal wound HISTORY OF PRESENT ILLNESS: The patient is a 44-year-old male who over a year ago had an open incisional hernia repair. He presented to the emergency room with spontaneous drainage from his wound. He presented with difficulty with breathing after taking Suboxone. He had acute hypoxic event with drug overdose and taken to the intensive care unit for observation. Now, he is sitting up in chair watching football game. No reports of acute abdominal pain. Currently wound is being packed. ROS: No reports of nausea and vomiting. No fevers or chills. No new chest pain. No productive sputum PHYSICAL EXAM: VITAL SIGNS: Reviewed CONSTITUTIONAL: Well developed and in no acute distress. EYES: Conjuctivae without sclera icterus. Extraocular movements grossly intact. HEAD, EARS, NOSE, THROAT: Moist buccal mucosa. Head is atraumatic, normocephalic. Hears conversational speech. No nasal drainage. Poor dentition. NECK: Supple. No thyroidomegaly. RESPIRATORY: Non-labored respirations and equal bilateral excursions. CARDIOVASCULAR: Palpable 2+ radial pulses. ABDOMEN: Three separate dressings along the abdomen without active infection. MUSCULOSKELETAL: No gross deformity of the lower extremities noted. No clubbing. No cyanosis. SKIN: Good skin turgor. Well perfused. NEUROLOGIC: Cranial nerves II through XII grossly intact. No focal or lateralizing signs. PSYCH: Appropriate affect. Alert and oriented to person, place and time. CLINICAL LABS: White blood cell count normal, 9.2 ASSESSMENT: 1. Draining abdominal wound. 2. Drug overdose PLAN: 1. Continue with wound packing. 2. No acute surgical intervention at this time. 3. Diet as tolerated. Objective - Vital Signs Vital signs: Vital Signs Temp 98 F 02/03/20 12:00 Pulse 89 02/03/20 13:00 Resp 20 02/03/20 13:00 BP 103/76 02/03/20 13:00 Pulse Ox 93 L 02/03/20 13:00 Intake & Output 02/02/20 02/03/20 02/03/20 18:59 06:59 18:59 Intake Total 1510 2549.698 479.175 Output Total 550 1350 0 Balance 960 1199.698 479.175 Weight 119.748 kg 124.7 kg Intake: IV 1450 1025 235 Naloxone (Mdv) 2 mg In 1000 125 Sodium Chloride 0.9% 250 ml @ 1 MG/HR 125 mls/hr IV .Q2H [facility] Rx#:[id number] Sodium Chloride 0.9% 1, 450 900 235 000 ml @ 10 mls/hr IV . Q24H [facility] Rx#:[id number] Intake, IV Titration 84.698 4.175 Amount Insulin Regular 100 unit 84.698 4.175 In Sodium Chloride 0.9% 100 ml @ Per Protocol IV .Q0M [facility] Rx#:[id number] Oral 60 1440 240 Output: Urine 550 1350 0 Other: Voiding Method Urinal Urinal Urinal # Voids 1 1 # Bowel Movements 1 1 - Labs CBC & Chem 7: 02/03/20 04:42 02/03/20 04:42 Labs: Abnormal Lab Results - Last 24 Hours (Table) 02/02/20 02/02/20 02/02/20 Range/Units 18:03 19:01 19:31 Hgb (13.0-17.5) gm/dL Plt Count (150-450) k/uL ABG pO2 51 L* (83-108) mmHg ABG HCO3 26 H (21-25) mmol/L ABG Total CO2 27 H (19-24) mmol/L ABG O2 Saturation 87.6 L (94-97) % Chloride (98-107) mmol/L Creatinine (0.66-1.25) mg/dL Glucose (74-99) mg/dL POC Glucose (mg/dL) 423 H 455 H (75-99) mg/dL Hemoglobin A1c (4.0-6.0) % Alkaline Phosphatase (38-126) U/L Ammonia (<30) umol/L Total Protein (6.3-8.2) g/dL Albumin (3.5-5.0) g/dL 02/02/20 02/02/20 02/02/20 Range/Units 20:10 21:00 22:03 Hgb (13.0-17.5) gm/dL Plt Count (150-450) k/uL ABG pO2 (83-108) mmHg ABG HCO3 (21-25) mmol/L ABG Total CO2 (19-24) mmol/L ABG O2 Saturation (94-97) % Chloride (98-107) mmol/L Creatinine (0.66-1.25) mg/dL Glucose (74-99) mg/dL POC Glucose (mg/dL) 376 H 344 H 224 H (75-99) mg/dL Hemoglobin A1c (4.0-6.0) % Alkaline Phosphatase (38-126) U/L Ammonia (<30) umol/L Total Protein (6.3-8.2) g/dL Albumin (3.5-5.0) g/dL 02/02/20 02/02/20 02/03/20 Range/Units 23:03 23:53 00:59 Hgb (13.0-17.5) gm/dL Plt Count (150-450) k/uL ABG pO2 (83-108) mmHg ABG HCO3 (21-25) mmol/L ABG Total CO2 (19-24) mmol/L ABG O2 Saturation (94-97) % Chloride (98-107) mmol/L Creatinine (0.66-1.25) mg/dL Glucose (74-99) mg/dL POC Glucose (mg/dL) 175 H 157 H 140 H (75-99) mg/dL Hemoglobin A1c (4.0-6.0) % Alkaline Phosphatase (38-126) U/L Ammonia (<30) umol/L Total Protein (6.3-8.2) g/dL Albumin (3.5-5.0) g/dL 02/03/20 02/03/20 02/03/20 Range/Units 02:14 03:01 04:03 Hgb (13.0-17.5) gm/dL Plt Count (150-450) k/uL ABG pO2 (83-108) mmHg ABG HCO3 (21-25) mmol/L ABG Total CO2 (19-24) mmol/L ABG O2 Saturation (94-97) % Chloride (98-107) mmol/L Creatinine (0.66-1.25) mg/dL Glucose (74-99) mg/dL POC Glucose (mg/dL) 146 H 156 H 176 H (75-99) mg/dL Hemoglobin A1c (4.0-6.0) % Alkaline Phosphatase (38-126) U/L Ammonia (<30) umol/L Total Protein (6.3-8.2) g/dL Albumin (3.5-5.0) g/dL 02/03/20 02/03/20 02/03/20 Range/Units 04:42 04:42 04:42 Hgb 12.3 L (13.0-17.5) gm/dL Plt Count 122 L (150-450) k/uL ABG pO2 (83-108) mmHg ABG HCO3 (21-25) mmol/L ABG Total CO2 (19-24) mmol/L ABG O2 Saturation (94-97) % Chloride 108 H (98-107) mmol/L Creatinine 0.56 L (0.66-1.25) mg/dL Glucose 190 H (74-99) mg/dL POC Glucose (mg/dL) (75-99) mg/dL Hemoglobin A1c 10.7 H (4.0-6.0) % Alkaline Phosphatase 203 H (38-126) U/L Ammonia (<30) umol/L Total Protein 5.9 L (6.3-8.2) g/dL Albumin 3.1 L (3.5-5.0) g/dL 02/03/20 02/03/20 02/03/20 Range/Units 04:42 04:59 05:58 Hgb (13.0-17.5) gm/dL Plt Count (150-450) k/uL ABG pO2 (83-108) mmHg ABG HCO3 (21-25) mmol/L ABG Total CO2 (19-24) mmol/L ABG O2 Saturation (94-97) % Chloride (98-107) mmol/L Creatinine (0.66-1.25) mg/dL Glucose (74-99) mg/dL POC Glucose (mg/dL) 166 H 155 H (75-99) mg/dL Hemoglobin A1c (4.0-6.0) % Alkaline Phosphatase (38-126) U/L Ammonia 48 H (<30) umol/L Total Protein (6.3-8.2) g/dL Albumin (3.5-5.0) g/dL 02/03/20 02/03/20 02/03/20 Range/Units 07:00 07:59 09:08 Hgb (13.0-17.5) gm/dL Plt Count (150-450) k/uL ABG pO2 (83-108) mmHg ABG HCO3 (21-25) mmol/L ABG Total CO2 (19-24) mmol/L ABG O2 Saturation (94-97) % Chloride (98-107) mmol/L Creatinine (0.66-1.25) mg/dL Glucose (74-99) mg/dL POC Glucose (mg/dL) 143 H 141 H 291 H (75-99) mg/dL Hemoglobin A1c (4.0-6.0) % Alkaline Phosphatase (38-126) U/L Ammonia (<30) umol/L Total Protein (6.3-8.2) g/dL Albumin (3.5-5.0) g/dL 02/03/20 Range/Units 12:08 Hgb (13.0-17.5) gm/dL Plt Count (150-450) k/uL ABG pO2 (83-108) mmHg ABG HCO3 (21-25) mmol/L ABG Total CO2 (19-24) mmol/L ABG O2 Saturation (94-97) % Chloride (98-107) mmol/L Creatinine (0.66-1.25) mg/dL Glucose (74-99) mg/dL POC Glucose (mg/dL) 170 H (75-99) mg/dL Hemoglobin A1c (4.0-6.0) % Alkaline Phosphatase (38-126) U/L Ammonia (<30) umol/L Total Protein (6.3-8.2) g/dL Albumin (3.5-5.0) g/dL
[2020-02-03 16:56] LABS: Glucose,Whole Blood 234 mg/dL (75-99)
[2020-02-03 19:54] LABS: Glucose,Whole Blood 224 mg/dL (75-99)
[2020-02-03] MEDS: OLANZapine 10 MG TAB PO SCH (20:10)
[2020-02-03] MEDS: MIRTAZAPINE 15 MG TAB PO SCH (20:10)
[2020-02-04 06:15] LABS: Basophils % (A) 0 %; Eosinophils # (A) 0.1 k/uL (0-0.7); Eosinophils % (A) 1 %; HCT 39.4 % (39.0-53.0); HGB 12.4 gm/dL (13.0-17.5); Hypochromasia Slight; Lymphocytes % (A) 30 %; MCHC 31.6 g/dL (31.0-37.0); MCV 88.7 fL (80.0-100.0); Monocytes # (A) 0.4 k/uL (0-1.0); Monocytes % (A) 5 %; Neutrophils # (A) 4.2 k/uL (1.3-7.7); Neutrophils % (A) 62 %; Platelet Count 129 k/uL (150-450); RBC 4.44 m/uL (4.30-5.90); RDW 14.2 % (11.5-15.5); WBC 6.7 k/uL (3.8-10.6)
[2020-02-04] MEDS ORDERED: INSULIN DETEMIR (LEVEMIR) 100 UNIT/ML SYR SQ SCH (07:00)
[2020-02-04 07:03] LABS: Glucose,Whole Blood 129 mg/dL (75-99)
[2020-02-04] MEDS: IPRATROPIUM-ALBUTEROL 3 ML NEB INHALATION PRN ×4 (07:15→20:03)
[2020-02-04] MEDS: INSULIN ASPART (NovoLOG) 100 UNIT/ML VIAL SQ SCH ×4 (07:39→21:01)
[2020-02-04] MEDS: lamoTRIgine 100 MG TAB PO SCH ×2 (07:44→21:01)
[2020-02-04] MEDS: ENOXAPARIN 40 MG/0.4 ML SYRINGE SQ SCH (07:44)
[2020-02-04] MEDS: PANTOPRAZOLE 40 MG/10 ML VIAL IVP SCH (07:45)
[2020-02-04] MEDS: INSULIN DETEMIR (LEVEMIR) 100 UNIT/ML SYR SQ SCH (07:45)
[2020-02-04 09:47] LABS: Albumin 3.3 g/dL (3.80-4.90); Albumin/Globulin Ratio 1.57 (1.60-3.17); Anion Gap 6.2 mmol/L (4.00-12.00); BUN/Creat Ratio 21.43 Ratio (12.00-20.00); Calcium 8.5 mg/dL (8.7-10.3); Carbon Dioxide 27.8 mmol/L (21.6-31.8); Globulin 2.1 g/dL (1.6-3.3); Non-African American GFR(CKD) 114.8 (60.0-200.0); Potassium 3.9 mmol/L (3.5-5.5); Total Bilirubin 0.3 mg/dL (0.3-1.2); Total Protein 5.4 g/dL (6.2-8.2)
--- NOTE | 2020-02-04 10:58 | P.PN ---
Subjective Progress Note Date: 02/04/20 Principal diagnosis: Accidental overdose This is a 44-year-old gentleman who follows with Dr. Espinoza as his primary care provider. He has a history of previous partial gastrectomy, removal pancreatic pseudocyst and lysis of adhesions in November 2017. He is having ongoing issues with an open wound in the incision that his been packed and being followed by surgical services. He also has a history of COPD, chronic and ongoing tobacco dependence, bipolar disorder, seizure disorder, hepatitis C, history of IV drug abuse, history of crack cocaine use. He was brought into the emergency room this morning He presented to the emergency room after being found on the floor next to his bed. He admitted to taking someone else's Suboxone. Unclear as to how many tablets was taken. He was 88% on room air when EMS arrived. In the emergency room he denied any worsening shortness of breath, cough or congestion. He is somewhat obtunded. Arterial blood gases on 50% FiO2 revealed a pO2 73, pCO2 53, pH 7.33. He was initiated on Narcan drip. He is seen today in consultation in the intensive care unit. He is arousable. He drifts off easily. He denies suicide attempt. He states he was trying" to get high" declines to admit where he got this Suboxone. Unsure of how my tablets he took. He is currently maintaining O2 saturation is low 90s on 6 L/m per nasal cannula. She's been afebrile. Hemodynamically stable. White count 10.6. Hemoglobin 13.8. Sodium 137. Potassium 4.8. Creatinine 0.58. Ammonia level LI. Urine drug screen positive for benzodiazepines. Serum alcohol less than 10. Currently receiving 0.9 normal saline at 75 ML's per hour. Narcan drip is at 1 mg per hour. On 02/03/2020, the patient is fully awake and alert. Overnight the patient was taken off the Narcan drip and his mental status remained quite alert and oriented. He is currently on 2 L of oxygen by nasal cannula. He was seen by general surgery and the abdominal wound was obviously noninfected and the patient needed some further wound care. Appropriate packing was applied. The patient's ammonia level is down to 48. The patient's blood sugar was quite elevated earlier this morning. Overnight he was started on insulin 3.5 units an hour. He is currently on normal saline at the rate of 75 mL an hour. He will need to go back to long-acting insulin. He is tolerating diet. No nausea. No vomiting. No abdominal pain. No chest pain. No other complaints otherwise for now. Patient is seen today 02/04/2020 in follow-up on the regular medical floor. He is awake and alert in no acute distress. Maintaining O2 saturations in the 90s on room air. He's been afebrile. Hemodynamically stable. White count 6.7. Hemoglobin 12.4. Platelets 129. Sodium 142. Potassium 3.9. Creatinine 0.7. Blood glucose 129. He remains on lactulose. Objective - Vital Signs Vital signs: Vital Signs Temp 97.8 F 02/04/20 06:55 Pulse 88 02/04/20 07:25 Resp 14 02/04/20 06:55 BP 127/83 02/04/20 06:55 Pulse Ox 93 L 02/04/20 06:55 Intake & Output 02/03/20 02/04/20 02/04/20 18:59 06:59 18:59 Intake Total 479.175 Output Total 0 0 Balance 479.175 0 Intake: IV 235 Sodium Chloride 0.9% 1, 235 000 ml @ 10 mls/hr IV . Q24H [facility]AK Rx#:[id number] Intake, IV Titration 4.175 Amount Insulin Regular 100 unit 4.175 In Sodium Chloride 0.9% 100 ml @ Per Protocol IV .Q0M VINAYAK Rx#:[id number] Oral 240 Output: Urine 0 0 Other: Voiding Method Urinal Urinal # Voids 1 3 # Bowel Movements 1 - Exam GENERAL EXAM: Awake alert, 44-year-old gentleman, on room air HEAD: Normocephalic. EYES: Normal reaction of pupils, equal size. NOSE: Clear with pink turbinates. THROAT: No erythema or exudates. NECK: No masses, no JVD. CHEST: No chest wall deformity. LUNGS: Equal air entry with no crackles, wheeze, rhonchi or dullness. CVS: S1 and S2 normal with no audible murmur, regular rhythm. ABDOMEN: No hepatosplenomegaly, normal bowel sounds, no guarding or rigidity. SPINE: No scoliosis or deformity SKIN: No rashes CENTRAL NERVOUS SYSTEM: No focal deficits, tone is normal in all 4 extremities. EXTREMITIES: There is no peripheral edema. No clubbing, no cyanosis. Peripheral pulses are intact. - Labs CBC & Chem 7: 02/04/20 05:16 02/04/20 05:16 Labs: Abnormal Lab Results - Last 24 Hours (Table) 02/03/20 02/03/20 02/03/20 Range/Units 04:42 12:08 16:54 Hgb (13.0-17.5) gm/dL Plt Count (150-450) k/uL BUN/Creatinine Ratio (12.00-20.00) Ratio Glucose (70-110) mg/dL POC Glucose (mg/dL) 170 H 234 H (75-99) mg/dL Hemoglobin A1c 10.7 H (4.0-6.0) % Calcium (8.7-10.3) mg/dL AST (14-35) U/L Alkaline Phosphatase (41-126) U/L Total Protein (6.2-8.2) g/dL Albumin (3.80-4.90) g/dL Albumin/Globulin Ratio (1.60-3.17) g/dL 02/03/20 02/04/20 02/04/20 Range/Units 19:53 05:16 05:16 Hgb 12.4 L (13.0-17.5) gm/dL Plt Count 129 L (150-450) k/uL BUN/Creatinine Ratio 21.43 H (12.00-20.00) Ratio Glucose 139 H (70-110) mg/dL POC Glucose (mg/dL) 224 H (75-99) mg/dL Hemoglobin A1c (4.0-6.0) % Calcium 8.5 L (8.7-10.3) mg/dL AST 63 H (14-35) U/L Alkaline Phosphatase 199 H (41-126) U/L Total Protein 5.4 L (6.2-8.2) g/dL Albumin 3.30 L (3.80-4.90) g/dL Albumin/Globulin Ratio 1.57 L (1.60-3.17) g/dL 02/04/20 Range/Units 07:01 Hgb (13.0-17.5) gm/dL Plt Count (150-450) k/uL BUN/Creatinine Ratio (12.00-20.00) Ratio Glucose (70-110) mg/dL POC Glucose (mg/dL) 129 H (75-99) mg/dL Hemoglobin A1c (4.0-6.0) % Calcium (8.7-10.3) mg/dL AST (14-35) U/L Alkaline Phosphatase (41-126) U/L Total Protein (6.2-8.2) g/dL Albumin (3.80-4.90) g/dL Albumin/Globulin Ratio (1.60-3.17) g/dL Assessment and Plan Assessment: 1 Altered mental status secondary to Suboxone overdose, recovered, recovered 2 Acute hypoxemic/hypercapnic respiratory failure secondary to above 3 History of IV drug abuse, multiple drug abuse including crack cocaine 4 History of hepatitis C 5 History of partial gastrectomy/removal of pancreatic pseudocyst and lysis of adhesions in November 2017 with continuing ongoing open wound 6 History of right lung thorascopic decortication 7 Chronic obstructive pulmonary disease 8 Chronic tobacco dependence 9 Bipolar disorder 10 History of seizure disorder Plan: The patient was seen and evaluated by Dr. Washington He is cleared for discharge from the pulmonary critical care standpoint I, the cosigning physician, performed a history & physical examination of the patient. Lungs sounds are clear. Maintaining good O2 saturations in the 90s on room air. I discussed the assessment and plan of care with my nurse practitioner, Carmen Caldera. I attest to the above consultation as dictated by her.
[2020-02-04] MEDS: LACTULOSE 20 GM/30 ML CUP PO SCH ×2 (11:53→21:01)
[2020-02-04 11:54] LABS: Glucose,Whole Blood 150 mg/dL (75-99)
--- NOTE | 2020-02-04 12:09 | P.PN ---
Subjective Progress Note Date: 02/04/20 Juan Ralph, is a 44-year-old female who presented to [facility] emergency room, after being found unresponsive at home he was evaluated in the emergency room he was somnolent he told the emergency room physician that he took multiple pills of Suboxone and Xanax in an attempt to "get high", he denies any suicidal attempt or ideation. Patient was evaluated in the emergency room his temperature was 97.9 pulse 100 respiration 18 blood pressure 130/78 pulse ox 96% on 10 L mask, He was very somnolent but responsive to stimuli and answering a few questions before he returned to sleep, his laboratory data were significant for a white blood count of 10.6 hemoglobin 13.8 platelet count 141 pH 7.33 pCO2 53 by mouth to 73 sodium 137 potassium 4.8 chloride 103 CO2 27 BUN 12 creatinine 0.58 glucose level 265 AST 73 a LT 36 alkaline phosphatase 219 and ammonia level 51 patient was admitted to intensive care unit, critical care consultation was requested. Patient has a known history of diabetes mellitus, bipolar disorder, COPD, chronic pancreatitis with pancreatic pseudocyst in the past requiring surgery, history of hepatitis C with interferon treatment 6 years ago, history of drug abuse, patient has been maintained on Suboxone from an outside clinic. His past surgical history is significant for appendectomy, cholecystectomy, laparotomy with partial omentumectomy and lysis of adhesions in 2018, and the open incision hernia repair in 2019, at this time patient is still having an open wound in the lower part of the mid abdomen about 2 inch in diameter and 1 inch in depth he is followed by Dr. Hicks as outpatient and receives wound care from him. Review of systems is difficult to obtain due to somnolence, patient is denying any pain, he is denying any suicide attempt, he is requesting to be a no code. On 02/03/2020 patient was seen and examined in the ICU he is alert and oriented 3 in no apparent distress there is no fever or chills no headache or dizziness no chest pain no shortness of breath no cough no nausea or vomiting no abdominal pain no diarrhea no blood in the stools no burning with urination no frequency or urgency and no hematuria. Patient is more alert today he is stating again that he took some pills in an attempt to get high he denies any suicidal ideation or attempts. He will be transferred out of ICU today. on 02/04/2020 patient was seen and examined on the medical floor he is alert and oriented 3 in no distress, he is sitting up in a chair and answering questions appropriately, there is no fever or chills no headache or dizziness no chest pain no shortness of breath no cough no nausea or vomiting no abdominal pain no diarrhea no blood in the stools no burning with urination no frequency or urgency no hematuria. at this time medication and labs were reviewed, psychiatry consultation were reviewed, Will monitor possible discharge to home tomorrow. Objective - Vital Signs Vital signs: Vital Signs Temp 97.8 F 02/04/20 06:55 Pulse 82 02/04/20 06:55 Resp 14 02/04/20 06:55 BP 127/83 02/04/20 06:55 Pulse Ox 93 L 02/04/20 06:55 Intake & Output 02/03/20 02/04/20 02/04/20 18:59 06:59 18:59 Intake Total 479.175 Output Total 0 0 Balance 479.175 0 Intake: IV 235 Sodium Chloride 0.9% 1, 235 000 ml @ 10 mls/hr IV . Q24H [facility] Rx#:[id number] Intake, IV Titration 4.175 Amount Insulin Regular 100 unit 4.175 In Sodium Chloride 0.9% 100 ml @ Per Protocol IV .Q0M [facility]AK Rx#:[id number] Oral 240 Output: Urine 0 0 Other: Voiding Method Urinal # Voids 1 3 # Bowel Movements 1 - Exam In general patient is somnolent arousable in no apparent distress HEENT head normocephalic and atraumatic Neck is supple no JVD no goiter no lymphadenopathy Chest exam reveals a few scattered rhonchi bilaterally no wheezing Cardiac exam reveals regular heart sounds no gallops no murmurs Abdomen is soft nontender no organomegaly with normal bowel sounds, there is a large open ulcer without any drainage in the middle lower abdomen as above Extremity exam reveals no edema no cyanosis or clubbing Neurological examination reveals no gross focal deficits - Labs CBC & Chem 7: 02/04/20 05:16 02/04/20 05:16 Labs: Abnormal Lab Results - Last 24 Hours (Table) 02/03/20 02/03/20 02/03/20 Range/Units 04:42 09:08 12:08 Hgb (13.0-17.5) gm/dL Plt Count (150-450) k/uL POC Glucose (mg/dL) 291 H 170 H (75-99) mg/dL Hemoglobin A1c 10.7 H (4.0-6.0) % 02/03/20 02/03/20 02/04/20 Range/Units 16:54 19:53 05:16 Hgb 12.4 L (13.0-17.5) gm/dL Plt Count 129 L (150-450) k/uL POC Glucose (mg/dL) 234 H 224 H (75-99) mg/dL Hemoglobin A1c (4.0-6.0) % 02/04/20 Range/Units 07:01 Hgb (13.0-17.5) gm/dL Plt Count (150-450) k/uL POC Glucose (mg/dL) 129 H (75-99) mg/dL Hemoglobin A1c (4.0-6.0) % Assessment and Plan Plan: 1. Somnolence secondary to overdose of Suboxone and possibly Xanax, patient is more alert today, he was started on diet and is tolerating well 2. Elevated liver enzymes with history of hepatitis C treated in the past, liver ultrasound results reviewed no acute abnormality seen with consult gastroenterology in regard to elevated liver enzymes 3. Underlying history of multiple abdominal surgeries as discussed above, there is an open wound in the mid abdomen followed by surgery, no evidence of infection at this time 4. Acute hypoxic and hypercapnic respiratory failure secondary to drug overdose 5. Underlying history of bipolar disorder 6. History of pancreatic pseudocyst with surgery in the past. 7. Previous history of drug abuse. At this time patient is admitted to intensive care unit, pulmonary critical care and surgical consult requested Will check liver ultrasound and gastroenterology consultation in regard to elevated liver enzymes Will add psychiatry consult Will Lovenox for DVT prophylaxis and Protonix for GI prophylaxis Will follow closely
[2020-02-04] MEDS: SODIUM CHLORIDE 0.9% 1,000 ML IV SCH (12:25)
[2020-02-04 13:13] VITALS: BMI 39.4
--- NOTE | 2020-02-04 15:01 | P.PN ---
Subjective Progress Note Date: 02/04/20 Principal diagnosis: Hyperammonemia, history of hepatitis C Patient is seen sitting up beside tolerating diet. No reports of confusion. No abdominal pain. No signs or symptoms of GI bleeding. Objective - Vital Signs Vital signs: Vital Signs Temp 97.8 F 02/04/20 06:55 Pulse 88 02/04/20 07:25 Resp 14 02/04/20 06:55 BP 127/83 02/04/20 06:55 Pulse Ox 93 L 02/04/20 06:55 Intake & Output 02/03/20 02/04/20 02/04/20 18:59 06:59 18:59 Intake Total 479.175 Output Total 0 0 Balance 479.175 0 Intake: IV 235 Sodium Chloride 0.9% 1, 235 000 ml @ 10 mls/hr IV . Q24H [facility]AK Rx#:[id number] Intake, IV Titration 4.175 Amount Insulin Regular 100 unit 4.175 In Sodium Chloride 0.9% 100 ml @ Per Protocol IV .Q0M [facility]AYAK Rx#:[id number] Oral 240 Output: Urine 0 0 Other: Voiding Method Urinal Urinal # Voids 1 3 # Bowel Movements 1 - Exam On physical examination, patient appears comfortable in no apparent distress. HEAD: Normocephalic, atraumatic. EYES: No scleral icterus. No conjunctival injection. MOUTH: No lesions, tongue midline. NECK: Trachea midline, no gross abnormalities. ABDOMEN: Soft, obese, abdominal wounds currently dressed. Bowel sounds are positive. No organomegaly. No guarding or rigidity. EXTREMITIES: No pedal edema. SKIN: No rashes, no jaundice. NEUROLOGIC: Alert and oriented x3, with no asterixis noted. No focal deficits. - Labs CBC & Chem 7: 02/04/20 05:16 02/04/20 05:16 Labs: Abnormal Lab Results - Last 24 Hours (Table) 02/03/20 02/03/20 02/03/20 Range/Units 04:42 12:08 16:54 Hgb (13.0-17.5) gm/dL Plt Count (150-450) k/uL BUN/Creatinine Ratio (12.00-20.00) Ratio Glucose (70-110) mg/dL POC Glucose (mg/dL) 170 H 234 H (75-99) mg/dL Hemoglobin A1c 10.7 H (4.0-6.0) % Calcium (8.7-10.3) mg/dL AST (14-35) U/L Alkaline Phosphatase (41-126) U/L Total Protein (6.2-8.2) g/dL Albumin (3.80-4.90) g/dL Albumin/Globulin Ratio (1.60-3.17) g/dL 02/03/20 02/04/20 02/04/20 Range/Units 19:53 05:16 05:16 Hgb 12.4 L (13.0-17.5) gm/dL Plt Count 129 L (150-450) k/uL BUN/Creatinine Ratio 21.43 H (12.00-20.00) Ratio Glucose 139 H (70-110) mg/dL POC Glucose (mg/dL) 224 H (75-99) mg/dL Hemoglobin A1c (4.0-6.0) % Calcium 8.5 L (8.7-10.3) mg/dL AST 63 H (14-35) U/L Alkaline Phosphatase 199 H (41-126) U/L Total Protein 5.4 L (6.2-8.2) g/dL Albumin 3.30 L (3.80-4.90) g/dL Albumin/Globulin Ratio 1.57 L (1.60-3.17) g/dL 02/04/20 Range/Units 07:01 Hgb (13.0-17.5) gm/dL Plt Count (150-450) k/uL BUN/Creatinine Ratio (12.00-20.00) Ratio Glucose (70-110) mg/dL POC Glucose (mg/dL) 129 H (75-99) mg/dL Hemoglobin A1c (4.0-6.0) % Calcium (8.7-10.3) mg/dL AST (14-35) U/L Alkaline Phosphatase (41-126) U/L Total Protein (6.2-8.2) g/dL Albumin (3.80-4.90) g/dL Albumin/Globulin Ratio (1.60-3.17) g/dL Assessment and Plan (1) Hyperammonemia Narrative/Plan: 44-year-old male presenting to the hospital for evaluation after what he states was an unintentional overdose with Suboxone. Patient has a history of hepatitis C for which she reports she was treated successfully at the [facility] with one year of treatment with ribavirin and PEG interferon. He denies any prior decompensated liver disease with no encephalopathy reported, variceal bleeding or fluid overload requiring paracentesis or diuretic therapy. Hyperammonemia may be related to multiple medications, and currently patient is not appearing encephalopathic with no signs of asterixis on physical exam, although he has been receiving lactulose therapy. He denies any history of cirrhosis. Current Visit: Yes Status: Acute Code(s): E72.20 - DISORDER OF UREA CYCLE METABOLISM, UNSPECIFIED SNOMED Code(s): 0229958 (2) S/P gastrointestinal surgery Current Visit: No Status: Acute Code(s): Z98.890 - OTHER SPECIFIED POSTPROCEDURAL STATES SNOMED Code(s): 137349050 (3) History of hepatitis C Current Visit: No Status: Resolved Code(s): Z86.19 - PERSONAL HISTORY OF OTHER INFECTIOUS AND PARASITIC DISEASES SNOMED Code(s): 75081313585253 Plan: supportive care Okay for sodium restricted diet Continue ICU management Continue monitor CBC, BMP, LFTs and ammonia Ultrasound of the abdomen with no evidence of ascites noted Okay to continue lactulose therapy, titrated for 2-3 bowel movements daily Thank you for allowing us to participate in the care of the patient
[2020-02-04 16:38] LABS: Glucose,Whole Blood 126 mg/dL (75-99)
--- NOTE | 2020-02-04 17:57 | P.PN ---
Subjective Progress Note Date: 02/04/20 CHIEF COMPLAINT: Draining abdominal wound HISTORY OF PRESENT ILLNESS: The patient is a 44-year-old male who presents following drug overdose including seroma following incisional hernia repair over one year ago. He has been transferred from the ICU to the floor. He is sitting up in the chair on his cell phone. Earlier he had declined lactulose for elevated ammonia levels. He is now willing to take his medications. No new abdominal pain. No fevers or chills. ROS: No reports of nausea and vomiting. No fevers or chills. No new chest pain. No productive sputum PHYSICAL EXAM: VITAL SIGNS: Reviewed CONSTITUTIONAL: Well developed and in no acute distress. EYES: Conjuctivae without sclera icterus. Extraocular movements grossly intact. HEAD, EARS, NOSE, THROAT: Moist buccal mucosa. Head is atraumatic, normocephalic. Hears conversational speech. No nasal drainage. Poor dentition. NECK: Supple. No thyroidomegaly. RESPIRATORY: Non-labored respirations and equal bilateral excursions. CARDIOVASCULAR: Palpable 2+ radial pulses. ABDOMEN: Dressing intact. No peritonitis. MUSCULOSKELETAL: No gross deformity of the lower extremities noted. No clubbing. No cyanosis. SKIN: Good skin turgor. Well perfused. NEUROLOGIC: Cranial nerves II through XII grossly intact. No focal or la teralizing signs. PSYCH: Appropriate affect. Alert and oriented to person, place and time. CLINICAL LABS: White blood cell count normal, 9.2, now 6.7 ASSESSMENT: 1. Draining abdominal wound. 2. Drug overdose PLAN: 1. Hold discharge. He is pending evaluation of wound care center. 2. Patient advised to take lactulose for elevated ammonia levels. Objective - Vital Signs Vital signs: Vital Signs Temp 98.1 F 02/04/20 15:00 Pulse 84 02/04/20 15:17 Resp 16 02/04/20 15:00 BP 143/84 02/04/20 15:00 Pulse Ox 94 L 02/04/20 15:00 Intake & Output 02/03/20 02/04/20 02/04/20 18:59 06:59 18:59 Intake Total 241.304 2451 Output Total 0 0 3 Balance 479.175 0 1877 Weight 124.7 kg Intake: IV 235 Sodium Chloride 0.9% 1, 235 000 ml @ 10 mls/hr IV . Q24H [facility]AK Rx#:[id number] Intake, IV Titration 4.175 Amount Insulin Regular 100 unit 4.175 In Sodium Chloride 0.9% 100 ml @ Per Protocol IV .Q0M [facility]AK Rx#:[id number] Oral 240 1880 Output: Urine 0 0 3 Other: Voiding Method Urinal Urinal # Voids 1 3 # Bowel Movements 1 3 - Labs CBC & Chem 7: 02/04/20 05:16 02/04/20 05:16 Labs: Abnormal Lab Results - Last 24 Hours (Table) 02/03/20 02/04/20 02/04/20 Range/Units 19:53 05:16 05:16 Hgb 12.4 L (13.0-17.5) gm/dL Plt Count 129 L (150-450) k/uL BUN/Creatinine Ratio 21.43 H (12.00-20.00) Ratio Glucose 139 H (70-110) mg/dL POC Glucose (mg/dL) 224 H (75-99) mg/dL Calcium 8.5 L (8.7-10.3) mg/dL AST 63 H (14-35) U/L Alkaline Phosphatase 199 H (41-126) U/L Total Protein 5.4 L (6.2-8.2) g/dL Albumin 3.30 L (3.80-4.90) g/dL Albumin/Globulin Ratio 1.57 L (1.60-3.17) g/dL 02/04/20 02/04/20 02/04/20 Range/Units 07:01 11:52 16:37 Hgb (13.0-17.5) gm/dL Plt Count (150-450) k/uL BUN/Creatinine Ratio (12.00-20.00) Ratio Glucose (70-110) mg/dL POC Glucose (mg/dL) 129 H 150 H 126 H (75-99) mg/dL Calcium (8.7-10.3) mg/dL AST (14-35) U/L Alkaline Phosphatase (41-126) U/L Total Protein (6.2-8.2) g/dL Albumin (3.80-4.90) g/dL Albumin/Globulin Ratio (1.60-3.17) g/dL
[2020-02-04 20:38] LABS: Glucose,Whole Blood 202 mg/dL (75-99)
[2020-02-04] MEDS: OLANZapine 10 MG TAB PO SCH (21:01)
[2020-02-04] MEDS: MIRTAZAPINE 15 MG TAB PO SCH (21:01)
[2020-02-05] MEDS: IPRATROPIUM-ALBUTEROL 3 ML NEB INHALATION PRN ×3 (01:58→15:12)
[2020-02-05 07:11] LABS: Glucose,Whole Blood 139 mg/dL (75-99)
[2020-02-05] MEDS: ENOXAPARIN 40 MG/0.4 ML SYRINGE SQ SCH (07:28)
[2020-02-05] MEDS: lamoTRIgine 100 MG TAB PO SCH (07:28)
[2020-02-05] MEDS: INSULIN ASPART (NovoLOG) 100 UNIT/ML VIAL SQ SCH ×2 (07:28→11:42)
[2020-02-05] MEDS: LACTULOSE 20 GM/30 ML CUP PO SCH (07:29)
[2020-02-05] MEDS: INSULIN DETEMIR (LEVEMIR) 100 UNIT/ML SYR SQ SCH (07:29)
[2020-02-05] MEDS ORDERED: PANTOPRAZOLE 40 MG TABLET PO SCH (09:00)
--- NOTE | 2020-02-05 10:31 | P.PN ---
Subjective Progress Note Date: 02/05/20 CHIEF COMPLAINT: Draining abdominal wound HISTORY OF PRESENT ILLNESS: The patient is a 44-year-old male who presents following drug overdose including seroma following incisional hernia repair over one year ago. Patient is awaiting to be seen by wound care nurse. He does have an appointment with Dr. Hicks scheduled for tomorrow. He is still having some serous drainage from the wound. He denies any nausea or vomiting. Denies any pain. He did have multiple bowel movements with lactulose. Lactulose was given for elevated ammonia level. Denies any nausea or vomiting. He is afebrile. PHYSICAL EXAM: VITAL SIGNS: Reviewed. GENERAL: Well-developed in no acute distress. HEENT: No sclera icterus. Extraocular movements grossly intact. Moist buccal mucosa. Head is atraumatic, normocephalic. ABDOMEN: Soft. Nondistended. Nontender. Abdominal wound some serous drainage noted on dressing. The wound itself no evidence of cellulitis. NEUROLOGIC: Alert and oriented. Cranial nerves II through XII grossly intact. ASSESSMENT: 1. Draining abdominal wound. 2. Drug overdose PLAN: -Patient to follow-up with Dr. Hicks -Patient to be seen by wound care service before discharge Physician Family Law Mediator note has been reviewed by physician. Signing provider agrees with the documented findings, assessment, and plan of care. Objective - Vital Signs Vital signs: Vital Signs Temp 98 F 02/05/20 07:00 Pulse 80 02/05/20 07:28 Resp 18 02/05/20 07:00 BP 99/64 02/05/20 07:00 Pulse Ox 94 L 02/05/20 07:00 Intake & Output 02/04/20 02/05/20 02/05/20 18:59 06:59 18:59 Intake Total 1880 180 Output Total 3 Balance 1877 180 Weight 124.7 kg Intake: Oral 1880 180 Output: Urine 3 Other: Voiding Method Urinal Urinal # Voids 2 # Bowel Movements 3 - Labs CBC & Chem 7: 02/04/20 05:16 02/04/20 05:16 Labs: Abnormal Lab Results - Last 24 Hours (Table) 02/04/20 02/04/20 02/04/20 Range/Units 11:52 16:37 20:37 POC Glucose (mg/dL) 150 H 126 H 202 H (75-99) mg/dL 02/05/20 Range/Units 07:10 POC Glucose (mg/dL) 139 H (75-99) mg/dL
[2020-02-05 11:04] LABS: HGB 13.1 gm/dL (13.0-17.5); MCH 28.7 pg (25.0-35.0); MCHC 32.9 g/dL (31.0-37.0); MCV 87.2 fL (80.0-100.0); Mean Platelet Volume 9.5; Platelet Count 139 k/uL (150-450); RBC 4.58 m/uL (4.30-5.90)
[2020-02-05 11:21] LABS: ALT 28 U/L (4-49); AST 98 U/L (17-59); African American GFR (CKD) >90 (>60 ml/min/1.73 sqM); Albumin 3.6 g/dL (3.5-5.0); Albumin/Globulin Ratio 1.2; Alkaline Phosphatase 201 U/L (38-126); Anion Gap 5 mmol/L; Blood Urea Nitrogen 10 mg/dL (9-20); Carbon Dioxide 29 mmol/L (22-30); Chloride 104 mmol/L (98-107); Glucose 133 mg/dL (74-99); Non-African American GFR(CKD) >90 (>60 ml/min/1.73 sqM); Sodium 138 mmol/L (137-145); Total Bilirubin 0.9 mg/dL (0.2-1.3); Total Protein 6.6 g/dL (6.3-8.2)
[2020-02-05 11:29] LABS: Glucose,Whole Blood 117 mg/dL (75-99)
[2020-02-05] MEDS: SODIUM CHLORIDE 0.9% 1,000 ML IV SCH (11:42)
--- NOTE | 2020-02-05 12:42 | P.CONS ---
History of Present Illness - Reason for Consult Consult date: 02/05/20 Wound care - History of Present Illness This is a 44-year-old patient being seen by the wound care center on [address] for nonhealing ulceration to the midline abdomen. Patient underwent a seroma drainage and Dr. Cash office at the beginning of the week. He has been utilizing gauze and AVD dressings to the site changing daily. Patient has history of diabetes and nicotine dependence. Patient's past history is also significant for asthma COPD seizures chronic pancreatitis. Patient has had surgeries in the past for hernia repair utilizing mesh. Review of Systems Review Of Systems: Constitutional: No fever, no chills, no night sweats. No weight change. No weakness, fatigue or lethargy. No daytime sleepiness. Integumentary:reports wounds, no lesions. No rash or pruritus. No unusual bruising. No change in hair or nails. Past Medical History Past Medical History: Asthma, COPD, Diabetes Mellitus, GERD/Reflux, Musculoskele edith Disorder, Seizure Disorder Additional Past Medical History / Comment(s): 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 with surgery/difficulty with incision healing/currently tx for cellulitis abdomin, IDDM type II, bronchitis, R lung spontaneous pneumo with surgery, last seizure 2011, hepatitis C with interferon over 6 yrs ago, past IV drug abuse-no drugs for one year/on suboxone, DDD, occasional low back pain, History of Any Multi-Drug Resistant Organisms: None Reported Past Surgical History: Appendectomy, Cholecystectomy Additional Past Surgical History / Comment(s): 2018 lap/laparotomy/partial omenectomy/cystogastrectomy/lysis of adhesions, 2019 open incision hernia repair with mesh-difficulty with incision healing since, EGD, colonoscopy, R lung thorascopy/decortication, bilateral eye RK for vision correction. Past Anesthesia/Blood Transfusion Reactions: No Reported Reaction Smoking Status: Current every day smoker - Past Family History Brother(s) Additional Family Medical History / Comment(s): Chronic alcoholism in 2 brothers Sister(s) Additional Family Medical History / Comment(s): Chronic alcoholism Daughter(s) Family Medical History: No Reported History Additional Family Medical History / Comment(s): One daughter healthy Son(s) Family Medical History: No Reported History Additional Family Medical History / Comment(s): One son healthy Father History Unknown: Yes Family Medical History: AICD/Pacemaker, Myocardial Infarction ([place]), Renal Diseas e Additional Family Medical History / Comment(s): Schizophrenia. Per patient, his father at the age of 59 from renal failure. Mother History Unknown: Yes Family Medical History: Hypertension Additional Family Medical History / Comment(s): HPV Medications and Allergies Home Medications Medication Instructions Recorded Confirmed Type Mirtazapine [Remeron] 15 mg PO HS 11/23/16 02/02/20 History lamoTRIgine [LaMICtal] 100 mg PO BID 03/13/17 02/02/20 History OLANZapine [ZyPREXA] 10 mg PO HS 03/28/18 02/02/20 History Buprenorphine HCl/Naloxone HCl 1 tab SL BID 01/27/20 02/02/20 History [Buprenorphin-Naloxon 8-2 mg Sl] Cephalexin [Keflex] 500 mg PO Q6HR 7 Days #28 cap 01/27/20 02/02/20 Rx Sulfamethox-Tmp 800-160Mg [Bactrim 1 tab PO Q12HR 7 Days #14 tab 01/27/20 02/02/20 Rx DS 800-160 mg] Allergies Allergy/AdvReac Type Severity Reaction Status Date / Time codeine Allergy Swelling Verified 02/02/20 09:44 furosemide [From Lasix] Allergy Rash/Hives Verified 02/02/20 09:44 haloperidol [From Haldol] Allergy Unknown Verified 02/02/20 09:44 prochlorperazine Allergy Swelling Verified 02/02/20 09:44 lactose AdvReac Diarrhea Verified 02/02/20 09:44 Physical Exam Vitals: Vital Signs Temp Pulse Pulse Resp BP BP Pulse Ox 02/05/20 07:28 80 02/05/20 07:20 76 02/05/20 07:00 98 F 78 18 99/64 94 L 02/05/20 02:08 90 02/05/20 01:58 90 02/05/20 01:00 98.8 F 86 18 93/55 02/04/20 20:14 100 02/04/20 20:03 100 18 95 02/04/20 19:17 98.2 F 89 22 103/68 93 L 02/04/20 15:17 84 02/04/20 15:10 80 02/04/20 15:00 98.1 F 101 H 16 143/84 94 L Intake and Output 02/04/20 02/05/20 02/05/20 22:59 06:59 14:59 Intake Total 180 Balance 180 Intake: Oral 180 Other: Voiding Method Urinal # Voids 1 2 Physical exam: General Appearance: Alert, cooperative, no distress, appears stated age. Skin: Full-thickness nonhealing ulceration related to surgical procedure. Patient has muscle involvement without necrosis. Able to visualize mesh. Ulceration measures approximately 2.5 x 2.0 x 6.0 cm granulation seen throughout the wound bed with minimal slough. Periwound show scarring area all other Skin color, texture, tugor normal, no rashes or lesions. Neurologic: Alert oriented x3 Results CBC & Chem 7: 02/05/20 10:46 02/05/20 10:46 Labs: Abnormal Lab Results - Last 24 Hours (Table) 02/04/20 02/04/20 02/05/20 Range/Units 16:37 20:37 07:10 Plt Count (150-450) k/uL Creatinine (0.66-1.25) mg/dL Glucose (74-99) mg/dL POC Glucose (mg/dL) 126 H 202 H 139 H (75-99) mg/dL AST (17-59) U/L Alkaline Phosphatase (38-126) U/L 02/05/20 02/05/20 02/05/20 Range/Units 10:46 10:46 11:28 Plt Count 139 L (150-450) k/uL Creatinine 0.61 L (0.66-1.25) mg/dL Glucose 133 H (74-99) mg/dL POC Glucose (mg/dL) 117 H (75-99) mg/dL AST 98 H (17-59) U/L Alkaline Phosphatase 201 H (38-126) U/L Assessment and Plan (1) Non-pressure chronic ulcer of skin of other sites with muscle involvement without evidence of necrosis Current Visit: Yes Status: Acute Code(s): L98.495 - NON-PRS [facility] SKIN/ OTH SITE WITH MSL INVL W/O EVD OF NECR SNOMED Code(s): 22328580 (2) Diabetes with skin ulcer Current Visit: Yes Status: Acute Code(s): E11.622 - TYPE 2 DIABETES MELLITUS WITH OTHER SKIN ULCER; L98.499 - NON-PRESSURE CHRONIC ULCER OF SKIN OF SITES W UNSP SEVERITY SNOMED Code(s): 28812797 Plan: Utilize absorptive silver moistened, dry gauze, ABDs secure with paper tape. Change dressing Wednesday. Patient will be set up with home care for dressing changes. When the patient is at home we will utilize and negative pressure wound VAC with black foam and continuous suction 125 mmHg change Wednesday. Patient was set up to be seen in the wound care center. Patient is requesting to be seen by Dr. White. Wound care center will call patient with appointment once it is scheduled. May utilizing barrier cream to the area wound to abrasions as needed. Rest with patient the importance of keeping blood sugars under control and smoking cessation. Patient verbalized understanding. Patient may be discharged today if cleared by surgery and medic ine Thank you kindly for the consultation any questions please contact the wound care center. . DNP note has been reviewed and discussed with Dr. Hernandez and the impression and plan of care has been directed as dictated.
--- NOTE | 2020-02-05 13:38 | P.PN ---
Subjective Progress Note Date: 02/05/20 Principal diagnosis: Hyperammonemia, history of hepatitis C Patient seen and examined at the bedside. The patient sitting up on the bench by the window. He denies any abdominal pain, nausea, or vomiting. He is alert and orientated able to follow commands and answer questions. He states he has had 3 bowel movements today. He denies any confusion. Objective - Vital Signs Vital signs: Vital Signs Temp 98 F 02/05/20 07:00 Pulse 80 02/05/20 07:28 Resp 18 02/05/20 07:00 BP 99/64 02/05/20 07:00 Pulse Ox 94 L 02/05/20 07:00 Intake & Output 02/04/20 02/05/20 02/05/20 18:59 06:59 18:59 Intake Total 1880 476 Output Total 3 Balance 1877 476 Weight 124.7 kg Intake: Oral 1880 476 Output: Urine 3 Other: Voiding Method Urinal Urinal # Voids 2 # Bowel Movements 3 - Exam General appearance: The patient is alert, oriented, in no acute distress. HET: Head is normocephalic and atraumatic. Conjunctiva pink. Sclera and icteric. Neck: Supple without lymphadenopathy. Abdomen: Soft, nontender, nondistended with bowel sounds. No guarding or rigidity. Extremities: Normal skin color and turgor. No pedal edema Neurological: No focal deficits. Alert and oriented 3. - Labs CBC & Chem 7: 02/05/20 10:46 02/05/20 10:46 Labs: Abnormal Lab Results - Last 24 Hours (Table) 02/04/20 02/04/20 02/05/20 Range/Units 16:37 20:37 07:10 Plt Count (150-450) k/uL Creatinine (0.66-1.25) mg/dL Glucose (74-99) mg/dL POC Glucose (mg/dL) 126 H 202 H 139 H (75-99) mg/dL AST (17-59) U/L Alkaline Phosphatase (38-126) U/L 02/05/20 02/05/20 02/05/20 Range/Units 10:46 10:46 11:28 Plt Count 139 L (150-450) k/uL Creatinine 0.61 L (0.66-1.25) mg/dL Glucose 133 H (74-99) mg/dL POC Glucose (mg/dL) 117 H (75-99) mg/dL AST 98 H (17-59) U/L Alkaline Phosphatase 201 H (38-126) U/L Assessment and Plan (1) Hyperammonemia Narrative/Plan: Narrative/Plan: 44-year-old male presenting to the hospital for evaluation after what he states was an unintentional overdose with Suboxone. Patient has a history of hepatitis C for which she reports she was treated successfully at the [place] with one year of treatment with ribavirin and PEG interferon. He denies any prior decompensated liver disease with no encephalopathy reported, variceal bleeding or fluid overlo ad requiring paracentesis or diuretic therapy. Hyperammonemia may be related to multiple medications, and currently patient is not appearing encephalopathic with no signs of asterixis on physical exam, although he has been receiving lactulose therapy. He denies any history of cirrhosis. Current Visit: Yes Status: Acute Code(s): E72.20 - DISORDER OF UREA CYCLE METABOLISM, UNSPECIFIED SNOMED Code(s): 5006393 (2) S/P gastrointestinal surgery Current Visit: No Status: Acute Code(s): Z98.890 - OTHER SPECIFIED POSTPROCEDURAL STATES SNOMED Code(s): 765528775 (3) History of hepatitis C Current Visit: No Status: Resolved Code(s): Z86.19 - PERSONAL HISTORY OF OTHER INFECTIOUS AND PARASITIC DISEASES SNOMED Code(s): 74273677040236 Plan: supportive care Okay for sodium restricted diet Continue monitor CBC, BMP, LFTs and ammonia Ultrasound of the abdomen with no evidence of ascites noted Okay to continue lactulose therapy, titrated for 2-3 bowel movements daily Continue with recommendations from wound care for her abdominal wound Patient to follow-up with Hollie Perez for history of hepatitis C. Thank you for allowing us to participate in the care of the patient The impression and plan of care has been dictated as directed. Dr. Susan Quiroga I performed a history and examination of this patient, discussed the same with the dictator. I agree with the dictator's note ,documented as a scribe. Any additional findings or plans will be noted.
[2020-02-05 14:45] VITALS: BP 100/61; RESP 16; TEMP 98.2
[2020-02-05 15:14] VITALS: PULSE 80
--- NOTE | 2020-02-05 19:09 | P.DS ---
Providers Date of admission: 02/02/20 09:37 Expected date of discharge: 02/05/20 Attending physician: Marialuisa Espinoza Consults: 02/02/20 09:37 Consult Physician Stat Consulting Provider: Mckay Washington Consult Reason/Comments: Critical care management Do you want consulting provider notified?: Yes 02/02/20 11:49 Consult Physician Routine Consulting Provider: Donny Hicks Consult Reason/Comments: Open abdominal wound, known to you Do you want consulting provider notified?: Yes 02/03/20 10:14 Consult Physician Routine Consulting Provider: Kianna Quiroga Consult Reason/Comments: elevated liver enzymes Do you want consulting provider notified?: Yes 02/03/20 10:54 Consult Physician Routine Consulting Provider: Gustavo Zambrano Consult Reason/Comments: Medication overdose Do you want consulting provider notified?: Yes Primary care physician: Marialuisa Olga [facility] Course: Diagnosis on discharge: 1. Somnolence secondary to overdose of Suboxone and possibly Xanax, patient is more alert today, he was started on diet and is tolerating well 2. Elevated liver enzymes with history of hepatitis C treated in the past, liver ultrasound results reviewed no acute abnormality seen with consult gastroenterology in regard to elevated liver enzymes 3. Underlying history of multiple abdominal surgeries as discussed above, there is an open wound in the mid abdomen followed by surgery, no evidence of infection at this time 4. Acute hypoxic and hypercapnic respiratory failure secondary to drug overdose 5. Underlying history of bipolar disorder 6. History of pancreatic pseudocyst with surgery in the past. 7. Previous history of drug abuse. Hospital course: Juan Ralph, is a 44-year-old female who presented to [facility] emergency room, after being found unresponsive at home he was evaluated in the emergency room he was somnolent he told the emergency room physician that he took multiple pills of Suboxone and Xanax in an attempt to "get high", he denies any suicidal attempt or ideation. Patient was evaluated in the emergency room his temperature was 97.9 pulse 100 respiration 18 blood pressure 130/78 pulse ox 96% on 10 L mask, He was very somnolent but responsive to stimuli and answering a few questions before he returned to sleep, his laboratory data were significant for a white blood count of 10.6 hemoglobin 13.8 platelet count 141 pH 7.33 pCO2 53 by mouth to 73 sodium 137 potassium 4.8 chloride 103 CO2 27 BUN 12 creatinine 0.58 glucose level 265 AST 73 a LT 36 alkaline phosphatase 219 and ammonia level 51 patient was admitted to intensive care unit, critical care consultation was requested. Patient has a known history of diabetes mellitus, bipolar disorder, COPD, chronic pancreatitis with pancreatic pseudocyst in the past requiring surgery, history of hepatitis C with interferon treatment 6 years ago, history of drug abuse, patient has been maintained on Suboxone from an outside clinic. His past surgical history is significant for appendectomy, cholecystectomy, laparotomy with partial omentumectomy and lysis of adhesions in 2018, and the open incision hernia repair in 2019, at this time patient is still having an open wound in the lower part of the mid abdomen about 2 inch in diameter and 1 inch in depth he is followed by Dr. Hicks as outpatient and receives wound care from him. Review of systems is difficult to obtain due to somnolence, patient is denying any pain, he is denying any suicide attempt, he is requesting to be a no code. On 02/03/2020 patient was seen and examined in the ICU he is alert and oriented 3 in no apparent distress there is no fever or chills no headache or dizziness no chest pain no shortness of breath no cough no nausea or vomiting no abdominal pain no diarrhea no blood in the stools no burning with urination no frequency or urgency and no hematuria. Patient is more alert today he is stating again that he took some pills in an attempt to get high he denies any suicidal ideation or attempts. He will be transferred out of ICU today. on 02/04/2020 patient was seen and examined on the medical floor he is alert and oriented 3 in no distress, he is sitting up in a chair and answering questions appropriately, there is no fever or chills no headache or dizziness no chest pain no shortness of breath no cough no nausea or vomiting no abdominal pain no diarrhea no blood in the stools no burning with urination no frequency or urgency no hematuria. at this time medication and labs were reviewed, psychiatry consultation were reviewed, Will monitor possible discharge to home tomorrow. On 02/05/2020 patient was seen and examined on the medical floor he is alert and oriented 3 in no apparent distress he is sitting up in a chair and denying any symptoms he is eager to be discharged home he denies any suicidal ideation or attempt he is stating again that he was experimenting with medication and trying to get high he denies any thoughts of suicide. Clinically there is no fever or chills no headache or dizziness no chest pain no shortness of breath no cough no nausea or vomiting no abdominal pain no diarrhea no blood in the stools no burning with urination no frequency or urgency and no hematuria. Time will discharge patient to home will follow as outpatient closely for further e valuation and treatment. Plan - Discharge Summary Discharge Rx Participant: No New Discharge Prescriptions: New Lactulose [Cephulac] 30 gm PO BID ml Insulin Detemir (Levemir) [Levemir] 50 unit SQ DAILY@0700 syr Continue Mirtazapine [Remeron] 15 mg PO HS lamoTRIgine [LaMICtal] 100 mg PO BID OLANZapine [ZyPREXA] 10 mg PO HS Buprenorphine HCl/Naloxone HCl [Buprenorphin-Naloxon 8-2 mg Sl] 1 tab SL BID Sulfamethox-Tmp 800-160Mg [Bactrim DS 800-160 mg] 1 tab PO Q12HR 7 Days #14 tab Cephalexin [Keflex] 500 mg PO Q6HR 7 Days #28 cap Discharge Medication List Mirtazapine [Remeron] 15 mg PO HS 11/23/16 [History] lamoTRIgine [LaMICtal] 100 mg PO BID 03/13/17 [History] OLANZapine [ZyPREXA] 10 mg PO HS 03/28/18 [History] Buprenorphine HCl/Naloxone HCl [Buprenorphin-Naloxon 8-2 mg Sl] 1 tab SL BID 01/27/20 [History] Cephalexin [Keflex] 500 mg PO Q6HR 7 Days #28 cap 01/27/20 [Rx] Sulfamethox-Tmp 800-160Mg [Bactrim DS 800-160 mg] 1 tab PO Q12HR 7 Days #14 tab 01/27/20 [Rx] Insulin Detemir (Levemir) [Levemir] 50 unit SQ DAILY@0700 syr 02/05/20 [Rx] Lactulose [Cephulac] 30 gm PO BID ml 02/05/20 [Rx] Follow up Appointment(s)/Referral(s): Hollie Perez PAC [REFERRING] - 1 Week (office closed Please call to make appointment) [facility], [NON-STAFF] - As Needed Marialuisa Espinoza MD [Primary Care Provider] - 1-2 days (office closed at time of discharge. Please call to make appointment) Donny Hicks MD [STAFF PHYSICIAN] - 1 Week (office closed at time of discharge. Please call to make appointment) Patient Instructions/Handouts: Benzodiazepine Overdose (DC), Chronic Wounds (DC) Activity/Diet/Wound Care/Special Instructions: Wound vac ordered through [facility]: #[phone]. Utilize absorptive silver rope moistened. Apply dry gauze, and than ABD pad, Secure with tape. Change Wednesday, Wednesday, and Wednesday. Wound Vac will be utilized at home with setting of 125mmg pressure. Change Wed, Wed, and Wed. Discharge Disposition: HOME WITH HOME HEALTH SERVICES Plan of Treatment: Follow up in Wound Center. Office will call with appt.
== END 2020-02-05 16:48 | disposition home health service (06) | DRG 917 ==
LOC: EC 07:16 → 2SICU 09:37 → 4SSUR 02-03 15:25
PROVIDERS: ADMIT Internal Medicine; ATTEND Internal Medicine
DX: T50.7X1A Poisoning by analeptics and opioid receptor antagonists, accidental (unintentional), initial encounter (principal); J96.02 Acute respiratory failure with hypercapnia; J96.01 Acute respiratory failure with hypoxia; E72.20 Disorder of urea cycle metabolism, unspecified; K86.1 Other chronic pancreatitis; L98.495 Non-pressure chronic ulcer of skin of other sites with muscle involvement without evidence of necrosis; T40.491A Poisoning by other synthetic narcotics, accidental (unintentional), initial encounter; F31.9 Bipolar disorder, unspecified; T81.89XA Other complications of procedures, not elsewhere classified, initial encounter; E11.622 Type 2 diabetes mellitus with other skin ulcer; T42.4X1A Poisoning by benzodiazepines, accidental (unintentional), initial encounter; F17.200 Nicotine dependence, unspecified, uncomplicated; G40.909 Epilepsy, unspecified, not intractable, without status epilepticus; J44.9 Chronic obstructive pulmonary disease, unspecified; J98.01 Acute bronchospasm; K21.9 Gastro-esophageal reflux disease without esophagitis; Z79.899 Other long term (current) drug therapy; Z90.3 Acquired absence of stomach [part of]; Z86.39 Personal history of other endocrine, nutritional and metabolic disease; Z87.19 Personal history of other diseases of the digestive system; Z88.5 Allergy status to narcotic agent; Z88.8 Allergy status to other drugs, medicaments and biological substances; Z91.018 Allergy to other foods; Z90.49 Acquired absence of other specified parts of digestive tract; Z98.890 Other specified postprocedural states; Z86.19 Personal history of other infectious and parasitic diseases; Z81.8 Family history of other mental and behavioral disorders; Z82.49 Family history of ischemic heart disease and other diseases of the circulatory system; Z81.1 Family history of alcohol abuse and dependence; Z83.1 Family history of other infectious and parasitic diseases
CPT/HCPCS: 36415; 36600; 70450; 71045; 71046; 72125; 76705; 80053; 80306; 80320; 81001; 82140; 82150; 82805; 83036; 83690; 83880; 84484; 85025; 85027; 85610; 85730; 93005; 94640; 96374; 96375; 96376; 99291

== ENCOUNTER 2020-07-21 13:52 | Inpatient (IN) | payer MEDICARE ==
[2020-07-21] MEDS ORDERED: IPRATROPIUM-ALBUTEROL 3 ML NEB INHALATION STA (14:53)
[2020-07-21] MEDS ORDERED: methylPREDNISolone SOD SUCCI 125 MG/2 ML VIAL IV STA (14:53)
[2020-07-21 15:20] LABS: Basophils # (A) 0.1 k/uL (0-0.2); Basophils % (A) 1 %; Eosinophils # (A) 0.5 k/uL (0-0.7); Eosinophils % (A) 5 %; HCT 42.5 % (39.0-53.0); HGB 13.6 gm/dL (13.0-17.5); Lymphocytes # (A) 1.9 k/uL (1.0-4.8); Lymphocytes % (A) 19 %; MCH 28.5 pg (25.0-35.0); MCHC 31.9 g/dL (31.0-37.0); MCV 89.1 fL (80.0-100.0); Monocytes # (A) 0.6 k/uL (0-1.0); Monocytes % (A) 6 %; Neutrophils % (A) 70 %; Platelet Count 118 k/uL (150-450); RBC 4.77 m/uL (4.30-5.90); RDW 14.2 % (11.5-15.5)
--- NOTE | 2020-07-21 15:23 | ED ---
General Adult HPI - General Source: patient, RN notes reviewed Mode of arrival: ambulatory Limitations: no limitations <Lior Crooks - Last Filed: 07/21/20 16:32> <Marcy Reyes - Last Filed: 07/22/20 14:48> - General Chief complaint: Shortness of Breath Stated complaint: SOB Time Seen by Provider: 07/21/20 14:34 - History of Present Illness Initial comments: 45-year-old male presents emergency department shortness breath. Patient had increasing shortness with the last 2-3 days. Patient does have known COPD. Denies any fevers or chills he has nonproductive dry type cough. He has no covid exposure no history of covid. Patient denies any change in his chronic abdominal issues. He denies any leg swelling, leg pain no history PE DVT or CHF. (Lior Crooks) - Related Data Home Medications Medication Instructions Recorded Confirmed Mirtazapine [Remeron] 15 mg PO HS 11/23/16 07/21/20 lamoTRIgine [LaMICtal] 100 mg PO HS 03/13/17 07/21/20 OLANZapine [ZyPREXA] 10 mg PO HS 03/28/18 07/21/20 Buprenorphine HCl/Naloxone HCl 1 tab SL BID 01/27/20 07/21/20 [Buprenorphin-Naloxon 8-2 mg Sl] INSULIN ASPART (NovoLOG) [NovoLOG 21 unit SQ AC-TID 07/21/20 07/21/20 (formulary)] Insulin Glargine [Lantus] 60 unit SQ HS 07/21/20 07/21/20 Nystatin 100,000Unit/gm Cream 1 applic TOPICAL DAILY PRN 07/21/20 07/21/20 [Mycostatin Cream] Omeprazole 20 mg PO BID 07/21/20 07/21/20 Allergies Allergy/AdvReac Type Severity Reaction Status Date / Time codeine Allergy Swelling Verified 07/21/20 15:16 furosemide [From Lasix] Allergy Rash/Hives Verified 07/21/20 15:16 haloperidol [From Haldol] Allergy Unknown Verified 07/21/20 15:16 prochlorperazine Allergy Swelling Verified 07/21/20 15:16 lactose AdvReac Diarrhea Verified 07/21/20 15:16 Review of Systems ROS Other: All systems not noted in ROS Statement are negative. <Lior Crooks - Last Filed: 07/21/20 16:32> ROS Other: All systems not noted in ROS Statement are negative. <Marcy Reyes Mitra - Last Filed: 07/22/20 14:48> ROS Statement: Those systems with pertinent positive or pertinent negative responses have been documented in the HPI. 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 with surgery/difficulty with incision healing/currently tx for cellulitis abdomin, IDDM type II, bronchitis, R lung spontaneous pneumo with surgery, last seizure 2011, hepatitis C with interferon over 6 yrs ago, past IV drug abuse-no drugs for one year/on suboxone, DDD, occasional low back pain, History of Any Multi-Drug Resistant Organisms: None Reported Past Surgical History: Appendectomy, Cholecystectomy Additional Past Surgical History / Comment(s): 2018 lap/laparotomy/partial omene ctomy/cystogastrectomy/lysis of adhesions, 2019 open incision hernia repair with mesh-difficulty with incision healing since, EGD, colonoscopy, R lung thorascopy/decortication, bilateral eye RK for vision correction. Past Anesthesia/Blood Transfusion Reactions: No Reported Reaction Past Psychological History: Anxiety, Bipolar, Depression Smoking Status: Current every day smoker Past Alcohol Use History: None Reported Past Drug Use History: None Reported - Past Family History Brother(s) Additional Family Medical History / Comment(s): Chronic alcoholism in 2 brothers Sister(s) Additional Family Medical History / Comment(s): Chronic alcoholism Daughter(s) Family Medical History: No Reported History Additional Family Medical History / Comment(s): One daughter healthy Son(s) Family Medical History: No Reported History Additional Family Medical History / Comment(s): One son healthy Father History Unknown: Yes Family Medical History: AICD/Pacemaker, Myocardial Infarction ([place]), Renal Disease Additional Family Medical History / Comment(s): Schizophrenia. Per patient, his father at the age of 59 from renal failure. Mother History Unknown: Yes Family Medical History: Hypertension Additional Family Medical History / Comment(s): HPV <Lior Crooks - Last Filed: 07/21/20 16:32> General Exam Limitations: no limitations General appearance: alert, in no apparent distress Head exam: Present: atraumatic, normocephalic, normal inspection Eye exam: Present: normal appearance, PERRL, EOMI. Absent: scleral icterus, conjunctival injection, periorbital swelling ENT exam: Present: normal exam, normal oropharynx, mucous membranes moist Neck exam: Present: normal inspection. Absent: tenderness, meningismus, lymphadenopathy Respiratory exam: Present: wheezes, rhonchi. Absent: respiratory distress, rales, stridor Cardiovascular Exam: Present: regular rate, normal rhythm, normal heart sounds. Absent: systolic murmur, diastolic murmur, rubs, gallop, clicks GI/Abdominal exam: Present: soft, normal bowel sounds. Absent: distended, tenderness, guarding, rebound, rigid Neurological exam: Present: alert Skin exam: Present: warm, dry, intact, normal color. Absent: rash <Dedoe,Lior M - Last Filed: 07/21/20 16:32> Course Vital Signs 07/21/20 07/21/20 07/21/20 14:10 14:37 15:25 Temperature 98.8 F Pulse Rate 99 108 H Respiratory 22 Rate Blood Pressure 158/96 O2 Sat by Pulse 82 L 93 L Oximetry 07/21/20 07/21/20 07/21/20 15:43 17:01 19:45 Temperature Pulse Rate 104 H 107 H 98 Respiratory 24 Rate Blood Pressure 125/71 O2 Sat by Pulse 93 L Oximetry 07/21/20 07/21/20 07/22/20 19:57 20:00 04:48 Temperature Pulse Rate 98 78 Respiratory 24 22 Rate Blood Pressure 125/68 O2 Sat by Pulse 94 L Oximetry 07/22/20 07/22/20 07/22/20 07:37 07:41 08:15 Temperature 97.7 F Pulse Rate 79 96 Respiratory 18 18 Rate Blood Pressure 130/81 O2 Sat by Pulse 89 L Oximetry 07/22/20 07/22/20 07/22/20 08:31 10:02 10:12 Temperature Pulse Rate 94 Respiratory Rate Blood Pressure O2 Sat by Pulse 86 L 90 L Oximetry 07/22/20 07/22/20 12:04 12:16 Temperature Pulse Rate 89 90 Respiratory Rate Blood Pressure O2 Sat by Pulse Oximetry EKG Findings - EKG Comments: EKG Findings:: EKG performed at 15:01 cm tachycardia rate of 108 VA 150 QRS 98 Q T/QTc is 378/497 <Lior Crooks - Last Filed: 07/21/20 16:32> Medical Decision Making - Lab Data Result diagrams: 07/21/20 15:01 07/21/20 15:01 <Lior Crooks - Last Filed: 07/21/20 16:32> - Lab Data Result diagrams: 07/21/20 15:01 07/21/20 15:01 <Marcy Reyes - Last Filed: 07/22/20 14:48> - Medical Decision Making 44-year-old male presented for shortness of breath. Patient's had persistent hypoxia off oxygen. Saturations x-ray shows atelectasis. Patient most likely having COPD exacerbation. Patient will be admitted for further steroids breathing treatments and glucose control. (Lior Crooks) I was available for consultation in the emergency department. The history and physical exam were done by the midlevel provider. I was consulted for this patients care. I reviewed the case with the midlevel provider and based on their presentation of the patient, I agree with the assessment, medical decision making and plan of care as documented. Chart was dictated using wireWAX dictation software. Attempts were made to correct any dictation errors however some typographical errors may persist. Patient was seen during a national state of emergency due to the Covid-19 pandemic. (Marcy Reyes) - Lab Data Lab Results 07/21/20 07/21/20 07/21/20 Range/Units 14:26 15:01 15:01 WBC 10.0 (3.8-10.6) k/uL RBC 4.77 (4.30-5.90) m/uL Hgb 13.6 (13.0-17.5) gm/dL Hct 42.5 (39.0-53.0) % MCV 89.1 (80.0-100.0) fL MCH 28.5 (25.0-35.0) pg MCHC 31.9 (31.0-37.0) g/dL RDW 14.2 (11.5-15.5) % Plt Count 118 L (150-450) k/uL MPV 10.0 Neutrophils % 70 % Lymphocytes % 19 % Monocytes % 6 % Eosinophils % 5 % Basophils % 1 % Neutrophils # 7.0 (1.3-7.7) k/uL Lymphocytes # 1.9 (1.0-4.8) k/uL Monocytes # 0.6 (0-1.0) k/uL Eosinophils # 0.5 (0-0.7) k/uL Basophils # 0.1 (0-0.2) k/uL PT 11.9 (9.0-12.0) sec INR 1.1 (<1.2) APTT 25.8 (22.0-30.0) sec Sodium (137-145) mmol/L Potassium (3.5-5.1) mmol/L Chloride (98-107) mmol/L Carbon Dioxide (22-30) mmol/L Anion Gap mmol/L BUN (9-20) mg/dL Creatinine (0.66-1.25) mg/dL Est GFR (CKD-EPI)AfAm (>60 ml/min/1.73 sqM) Est GFR (CKD-EPI)NonAf (>60 ml/min/1.73 sqM) Glucose (74-99) mg/dL Plasma Lactic Acid Mynor (0.7-2.0) mmol/L Calcium (8.4-10.2) mg/dL Magnesium (1.6-2.3) mg/dL Total Bilirubin (0.2-1.3) mg/dL AST (17-59) U/L ALT (4-49) U/L Alkaline Phosphatase (38-126) U/L Troponin I (0.000-0.034) ng/mL NT-Pro-B Natriuret Pep pg/mL Total Protein (6.3-8.2) g/dL Albumin (3.5-5.0) g/dL Coronavirus (PCR) Not Detected (Not Detectd) 07/21/20 07/21/20 07/21/20 Range/Units 15:01 15:01 15:01 WBC (3.8-10.6) k/uL RBC (4.30-5.90) m/uL Hgb (13.0-17.5) gm/dL Hct (39.0-53.0) % MCV (80.0-100.0) fL MCH (25.0-35.0) pg MCHC (31.0-37.0) g/dL RDW (11.5-15.5) % Plt Count (150-450) k/uL MPV Neutrophils % % Lymphocytes % % Monocytes % % Eosinophils % % Basophils % % Neutrophils # (1.3-7.7) k/uL Lymphocytes # (1.0-4.8) k/uL Monocytes # (0-1.0) k/uL Eosinophils # (0-0.7) k/uL Basophils # (0-0.2) k/uL PT (9.0-12.0) sec INR (<1.2) APTT (22.0-30.0) sec Sodium 140 (137-145) mmol/L Potassium 4.0 (3.5-5.1) mmol/L Chloride 100 (98-107) mmol/L Carbon Dioxide 35 H (22-30) mmol/L Anion Gap 5 mmol/L BUN 9 (9-20) mg/dL Creatinine 0.55 L (0.66-1.25) mg/dL Est GFR (CKD-EPI)AfAm >90 (>60 ml/min/1.73 sqM) Est GFR (CKD-EPI)NonAf >90 (>60 ml/min/1.73 sqM) Glucose 103 H (74-99) mg/dL Plasma Lactic Acid Mynor 1.4 (0.7-2.0) mmol/L Calcium 8.6 (8.4-10.2) mg/dL Magnesium 2.0 (1.6-2.3) mg/dL Total Bilirubin 0.9 (0.2-1.3) mg/dL AST 56 (17-59) U/L ALT 21 (4-49) U/L Alkaline Phosphatase 244 H (38-126) U/L Troponin I <0.012 (0.000-0.034) ng/mL NT-Pro-B Natriuret Pep pg/mL Total Protein 7.4 (6.3-8.2) g/dL Albumin 4.0 (3.5-5.0) g/dL Coronavirus (PCR) (Not Detectd) 07/21/20 Range/Units 15:01 WBC (3.8-10.6) k/uL RBC (4.30-5.90) m/uL Hgb (13.0-17.5) gm/dL Hct (39.0-53.0) % MCV (80.0-100.0) fL MCH (25.0-35.0) pg MCHC (31.0-37.0) g/dL RDW (11.5-15.5) % Plt Count (150-450) k/uL MPV Neutrophils % % Lymphocytes % % Monocytes % % Eosinophils % % Basophils % % Neutrophils # (1.3-7.7) k/uL Lymphocytes # (1.0-4.8) k/uL Monocytes # (0-1.0) k/uL Eosinophils # (0-0.7) k/uL Basophils # (0-0.2) k/uL PT (9.0-12.0) sec INR (<1.2) APTT (22.0-30.0) sec Sodium (137-145) mmol/L Potassium (3.5-5.1) mmol/L Chloride (98-107) mmol/L Carbon Dioxide (22-30) mmol/L Anion Gap mmol/L BUN (9-20) mg/dL Creatinine (0.66-1.25) mg/dL Est GFR (CKD-EPI)AfAm (>60 ml/min/1.73 sqM) Est GFR (CKD-EPI)NonAf (>60 ml/min/1.73 sqM) Glucose (74-99) mg/dL Plasma Lactic Acid Mynor (0.7-2.0) mmol/L Calcium (8.4-10.2) mg/dL Magnesium (1.6-2.3) mg/dL Total Bilirubin (0.2-1.3) mg/dL AST (17-59) U/L ALT (4-49) U/L Alkaline Phosphatase (38-126) U/L Troponin I (0.000-0.034) ng/mL NT-Pro-B Natriuret Pep 87 pg/mL Total Protein (6.3-8.2) g/dL Albumin (3.5-5.0) g/dL Coronavirus (PCR) (Not Detectd) Disposition <Lior Crooks - Last Filed: 07/21/20 16:32> <Marcy Reyes - Last Filed: 07/22/20 14:48> Clinical Impression: COPD exacerbation, Hypoxia Disposition: ADMITTED IP TO THIS HOSP
[2020-07-21 15:31] LABS: INR 1.1 (<1.2); Partial Thromboplastin Time 25.8 sec (22.0-30.0); Prothrombin Time 11.9 sec (9.0-12.0)
[2020-07-21 15:32] LABS: ALT 21 U/L (4-49); AST 56 U/L (17-59); African American GFR (CKD) >90 (>60 ml/min/1.73 sqM); Alkaline Phosphatase 244 U/L (38-126); Anion Gap 5 mmol/L; Blood Urea Nitrogen 9 mg/dL (9-20); Calcium 8.6 mg/dL (8.4-10.2); Carbon Dioxide 35 mmol/L (22-30); Chloride 100 mmol/L (98-107); Glucose 103 mg/dL (74-99); Non-African American GFR(CKD) >90 (>60 ml/min/1.73 sqM); Sodium 140 mmol/L (137-145); Total Bilirubin 0.9 mg/dL (0.2-1.3); Total Protein 7.4 g/dL (6.3-8.2)
--- NOTE | 2020-07-21 15:58 | XR ---
EXAMINATION TYPE: XR chest 2V DATE OF EXAM: 07/21/2020 COMPARISON: 02/03/2020. HISTORY: Shortness of breath. TECHNIQUE: Frontal and lateral views of the chest are obtained. FINDINGS: There is mild left basilar platelike opacity. No pleural effusion, or pneumothorax seen. The cardiac silhouette size is within normal limits. The osseous structures are intact. IMPRESSION: Left basilar atelectasis.
[2020-07-21 18:17] LABS: Glucose,Whole Blood 217 mg/dL (75-99)
[2020-07-21] MEDS: INSULIN ASPART (NovoLOG) 100 UNIT/ML VIAL SQ SCH ×2 (18:24→21:26)
[2020-07-21] MEDS: IPRATROPIUM-ALBUTEROL 3 ML NEB INHALATION SCH (19:45)
[2020-07-22] MEDS: methylPREDNISolone SOD SUCCI 125 MG/2 ML VIAL IV SCH ×4 (00:35→21:59)
[2020-07-22 06:20] LABS: Glucose,Whole Blood 226 mg/dL (75-99)
[2020-07-22] MEDS: INSULIN ASPART (NovoLOG) 100 UNIT/ML VIAL SQ SCH ×6 (06:38→21:57)
[2020-07-22] MEDS: IPRATROPIUM-ALBUTEROL 3 ML NEB INHALATION SCH ×4 (08:15→21:13)
[2020-07-22] MEDS ORDERED: NYSTATIN 100,000UNIT/GM CREAM 30 GM TUBE TOPICAL PRN (10:19)
--- NOTE | 2020-07-22 11:57 | XR ---
EXAMINATION TYPE: XR chest 2V DATE OF EXAM: 07/22/2020 COMPARISON: Chest x-ray 07/21/2020 HISTORY: Shortness of breath, Covid positive TECHNIQUE: Frontal and lateral views of the chest are obtained. FINDINGS: Findings are similar to prior exam. No evident pneumothorax or pleural effusion. Cardiomed iastinal silhouette is stable. There are overlying leads. Lung volumes are low. Suspect a prominent e picardial fat pad, possible lingular atelectasis. IMPRESSION: There may be some lingular atelectasis
--- NOTE | 2020-07-22 12:28 | P.CNPUL ---
History of Present Illness Consult date: 07/22/20 Requesting physician: Marialuisa Espinoza Reason for consult: dyspnea, COPD, hypoxemia, abnormal CXR/CT Chief complaint: Shortness of breath. History of present illness: This is a 45-year-old male who presents to the emergency department on July 21, with complaints of shortness of breath. The patient has had increasing shortness of breath for the last 2 or 3 days prior to admission. He does have a known history of COPD. He denied any fever or chills. He denies chest pain or chest discomfort. He did have a complaint of nonproductive cough. He has no recent exposure to aldana virus. He denies any chest pain or chest discomfort. He denies palpitations and fluttering in the chest. He denies any nausea, vomiting, diarrhea, or abdominal pain. He also denies all genitourinary complaints. White count was 10, hemoglobin 13.6, hematocrit 42.5, and platelet count was 118,000. PT INR and PTT were all normal. Sodium was 140 potassium 4 chloride is 100 CO2 35, anion gap 5, BUN 9, and creatinine 0.55. Coronavirus testing was negative. Chest x-rays from July 21 and July 22 show some l ingular atelectasis. Review of Systems REVIEW OF SYSTEMS: CONSTITUTIONAL: [Negative.] NEUROLOGIC: [ Negative.] HEENT: [ Negative.] CARDIAC: [Negative.] PULMONARY: Shortness of breath, nonproductive cough. GI: [Negative.] : [Negative.] RHEUMATOLOGIC: [ Negative.] IMMUNOLOGIC: [ Negative.] ENDOCRINE: [Negative. ] DERMATOLOGIC: [Negative.] 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 with surgery/difficulty with incision healing/currently tx for cellulitis abdomin, IDDM type II, bronchitis, R lung spontaneous pneumo with surgery, last seizure 2011, hepatitis C with interferon over 6 yrs ago, past IV drug abuse-no drugs for one year/on suboxone, DDD, occasional low back pain, History of Any Multi-Drug Resistant Organisms: None Reported Past Surgical History: Appendectomy, Cholecystectomy Additional Past Surgical History / Comment(s): 2018 lap/laparotomy/partial omenectomy/cystogastrectomy/lysis of adhesions, 2019 open incision hernia repair with mesh-difficulty with incision healing since, EGD, colonoscopy, R lung thorascopy/decortication, bilateral eye RK for vision correction. Past Anesthesia/Blood Transfusion Reactions: No Reported Reaction Past Psychological History: Anxiety, Bipolar, Depression Smoking Status: Current every day smoker Past Alcohol Use History: None Reported Past Drug Use History: None Reported - Past Family History Brother(s) Additional Family Medical History / Comment(s): Chronic alcoholism in 2 brothers Sister(s) Additional Family Medical History / Comment(s): Chronic alcoholism Daughter(s) Family Medical History: No Reported History Additional Family Medical History / Comment(s): One daughter healthy Son(s) Family Medical History: No Reported History Additional Family Medical History / Comment(s): One son healthy Father History Unknown: Yes Family Medical History: AICD/Pacemaker, Myocardial Infarction ([place]), Renal Disease Additional Family Medical History / Comment(s): Schizophrenia. Per patient, his father at the age of 59 from renal failure. Mother History Unknown: Yes Family Medical History: Hypertension Additional Family Medical History / Comment(s): HPV Medications and Allergies Home Medications Medication Instructions Recorded Confirmed Type Mirtazapine [Remeron] 15 mg PO HS 11/23/16 07/21/20 History lamoTRIgine [LaMICtal] 100 mg PO HS 03/13/17 07/21/20 History OLANZapine [ZyPREXA] 10 mg PO HS 03/28/18 07/21/20 History Buprenorphine HCl/Naloxone HCl 1 tab SL BID 01/27/20 07/21/20 History [Buprenorphin-Naloxon 8-2 mg Sl] INSULIN ASPART (NovoLOG) [NovoLOG 21 unit SQ AC-TID 07/21/20 07/21/20 History (formulary)] Insulin Glargine [Lantus] 60 unit SQ HS 07/21/20 07/21/20 History Nystatin 100,000Unit/gm Cream 1 applic TOPICAL DAILY PRN 07/21/20 07/21/20 History [Mycostatin Cream] Omeprazole 20 mg PO BID 07/21/20 07/21/20 History Allergies Allergy/AdvReac Type Severity Reaction Status Date / Time codeine Allergy Swelling Verified 07/21/20 15:16 furosemide [From Lasix] Allergy Rash/Hives Verified 07/21/20 15:16 haloperidol [From Haldol] Allergy Unknown Verified 07/21/20 15:16 prochlorperazine Allergy Swelling Verified 07/21/20 15:16 lactose AdvReac Diarrhea Verified 07/21/20 15:16 Physical Exam Osteopathic Statement: *. No significant issues noted on an osteopathic structural exam other than those noted in the History and Physical/Consult. Vitals: Vital Signs Temp Pulse Resp BP Pulse Ox 07/22/20 12:16 90 07/22/20 12:04 89 07/22/20 10:12 90 L 07/22/20 10:02 86 L 07/22/20 08:31 94 07/22/20 08:15 96 07/22/20 07:41 18 07/22/20 07:37 97.7 F 79 18 130/81 89 L 07/22/20 04:48 78 22 125/68 94 L 07/21/20 20:00 24 07/21/20 19:57 98 07/21/20 19:45 98 07/21/20 17:01 107 H 24 125/71 93 L 07/21/20 15:43 104 H 07/21/20 15:25 108 H 07/21/20 14:37 93 L 07/21/20 14:10 98.8 F 99 22 158/96 82 L Intake and Output 07/21/20 07/22/20 07/22/20 22:59 06:59 14:59 Intake Total 550 Balance 550 Intake: Oral 550 No acute distress, oriented 3. Nasal O2 noted at 5 L. HEENT examination is grossly unremarkable. Mucous membranes are moist. No oral lesions. Neck supple. Full range of motion. No adenopathy thyromegaly or neck vein distention. Cardiovascular examination reveals regular rhythm rate. S1-S2 normal. No S3 or S4. No discernible murmur noted. Heart rate 90 bpm. Lungs reveal bilateral diffuse expiratory rhonchi and expiratory wheezes. There is prolongation on forced maneuver. No crackles. Breath sounds equal bilaterally. Abdomen soft bowel sounds are heard. No masses or tenderness. Extremities are intact. No cyanosis clubbing or edema. Skin is without rash or lesion. Neurologic examination is brief but nonfocal. Results - Laboratory Findings CBC and BMP: 07/21/20 15:01 07/21/20 15:01 PT/INR, D-dimer PT 11.9 sec (9.0-12.0) 07/21/20 15:01 INR 1.1 (<1.2) 07/21/20 15:01 Abnormal lab findings: Abnormal Labs 07/21/20 07/21/20 07/21/20 15:01 15:01 18:16 Plt Count 118 L Carbon Dioxide 35 H Creatinine 0.55 L Glucose 103 H POC Glucose (mg/dL) 217 H Alkaline Phosphatase 244 H 07/22/20 06:17 Plt Count Carbon Dioxide Creatinine Glucose POC Glucose (mg/dL) 226 H Alkaline Phosphatase - Diagnostic Findings Chest x-ray: image reviewed Assessment and Plan Assessment: Acute exacerbation of COPD, without ry pneumonia. History of diabetes mellitus. History of gastroesophageal reflux disease. Ongoing tobacco use and nicotine addiction. History of seizure disorder. History of chronic pancreatitis with pancreatic pseudocyst. Prior history of right sided pneumothorax. History of hepatitis C. Past history of IV drug abuse. Degenerative disc disease. Plan: Plan dated 07/22/2020. Currently, the patient's on Rocephin and azithromycin. These antibiotics could likely be de-escalated. The patient remains on DuoNeb, and Solu-Medrol. I will add Symbicort 160/4.5, 2 puffs twice a day. We will continue to follow make recommendations were appropriate. I will order a pro-calcitonin level as well. Prognosis is guarded. Time with Patient: Greater than 30
[2020-07-22] MEDS: SUBOXONE 8MG/2MG PO SCH ×2 (12:31→22:00)
--- NOTE | 2020-07-22 13:31 | P.HPIM ---
History of Present Illness H&P Date: 07/22/20 Juan Ralph, is a 45-year-old male who presented to [facility] emergency room with a chief complaint of cough and worsening shortness of breath he states his symptoms started 1 week ago and has been worsening. He was evaluated in the emergency room vital examination on presentation revealed a temperature of 98.8 pulse 99 respiration 22 blood pressure 158/96 pulse ox 82% on room air, white blood count was 10.0 hemoglobin 13.6 platelet count 118 BUN 9 creatinine 0.55 glucose 103 troponin less than 0.012 coronavirus PCR was negative EKG done in the emergency room revealed sinus tachycardia otherwise normal chest x-ray revealed left basilar atelectasis. Preliminary diagnosis was acute exacerbation of COPD he was started on IV steroids IV antibiotics and inhaled bronchodilators and was admitted to medical floor pulmonary consultation was requested. His past medical history is significant for history of COPD, history of diabetes mellitus, history of seizure disorder, history of chronic pancreatitis with pancreatic pseudocyst, previous history of right sided pneumothorax, history of hepatitis C, previous history of IV drug abuse, and history of gastroesophageal reflux disease. Patient smokes 1 pack per day and has been smoking for more than 20 years. 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 with surgery/difficulty with incision healing/currently tx for cellulitis abdomin, IDDM type II, bronchitis, R lung spontaneous pneumo with surgery, last seizure 2011, hepatitis C with interferon over 6 yrs ago, past IV drug abuse-no drugs for one year/on suboxone, DDD, occasional low back pain, History of Any Multi-Drug Resistant Organisms: None Reported Past Surgical History: Appendectomy, Cholecystectomy Additional Past Surgical History / Comment(s): 2018 lap/laparotomy/partial omenectomy/cystogastrectomy/lysis of adhesions, 2019 open incision hernia repair with mesh-difficulty with incision healing since, EGD, colonoscopy, R lung thorascopy/decortication, bilateral eye RK for vision correction. Past Anesthesia/Blood Transfusion Reactions: No Reported Reaction Past Psychological History: Anxiety, Bipolar, Depression Smoking Status: Current every day smoker Past Alcohol Use History: None Reported Past Drug Use History: None Reported - Past Family History Brother(s) Additional Family Medical History / Comment(s): Chronic alcoholism in 2 brothers Sister(s) Additional Family Medical History / Comment(s): Chronic alcoholism Daughter(s) Family Medical History: No Reported History Additional Family Medical History / Comment(s): One daughter healthy Son(s) Family Medical History: No Reported History Additional Family Medical History / Comment(s): One son healthy Father History Unknown: Yes Family Medical History: AICD/Pacemaker, Myocardial Infarction ([place]), Renal Disease Additional Family Medical History / Comment(s): Schizophrenia. Per patient, his father at the age of 59 from renal failure. Mother History Unknown: Yes Family Medical History: Hypertension Additional Family Medical History / Comment(s): HPV Medications and Allergies Home Medications Medication Instructions Recorded Confirmed Type Mirtazapine [Remeron] 15 mg PO HS 11/23/16 07/21/20 History lamoTRIgine [LaMICtal] 100 mg PO HS 03/13/17 07/21/20 History OLANZapine [ZyPREXA] 10 mg PO HS 03/28/18 07/21/20 History Buprenorphine HCl/Naloxone HCl 1 tab SL BID 01/27/20 07/21/20 History [Buprenorphin-Naloxon 8-2 mg Sl] INSULIN ASPART (NovoLOG) [NovoLOG 21 unit SQ AC-TID 07/21/20 07/21/20 History (formulary)] Insulin Glargine [Lantus] 60 unit SQ HS 07/21/20 07/21/20 History Nystatin 100,000Unit/gm Cream 1 applic TOPICAL DAILY PRN 07/21/20 07/21/20 History [Mycostatin Cream] Omeprazole 20 mg PO BID 07/21/20 07/21/20 History Allergies Allergy/AdvReac Type Severity Reaction Status Date / Time codeine Allergy Swelling Verified 07/21/20 15:16 furosemide [From Lasix] Allergy Rash/Hives Verified 07/21/20 15:16 haloperidol [From Haldol] Allergy Unknown Verified 07/21/20 15:16 prochlorperazine Allergy Swelling Verified 07/21/20 15:16 lactose AdvReac Diarrhea Verified 07/21/20 15:16 Physical Exam Vitals: Vital Signs Temp Pulse Resp BP Pulse Ox 07/22/20 10:12 90 L 07/22/20 10:02 86 L 07/22/20 08:31 94 07/22/20 08:15 96 07/22/20 07:41 18 07/22/20 07:37 97.7 F 79 18 130/81 89 L 07/22/20 04:48 78 22 125/68 94 L 07/21/20 20:00 24 07/21/20 19:57 98 07/21/20 19:45 98 07/21/20 17:01 107 H 24 125/71 93 L 07/21/20 15:43 104 H 07/21/20 15:25 108 H 07/21/20 14:37 93 L 07/21/20 14:10 98.8 F 99 22 158/96 82 L Intake and Output 07/21/20 07/22/20 07/22/20 22:59 06:59 14:59 Intake Total 550 Balance 550 Intake: Oral 550 In general patient is alert and oriented 3 in no apparent distress HEENT head normocephalic and atraumatic Neck is supple no JVD no goiter no lymphadenopathy Chest exam reveals a few scattered crackles bilaterally with prolonged expiratory phase and severe wheezing Cardiac exam reveals regular heart sounds S1 and S2 no gallops no murmurs Abdomen is soft nontender no organomegaly with normal bowel sounds Extremity exam reveals no edema no cyanosis or clubbing Neurological examination reveals no gross focal deficit Results CBC & Chem 7: 07/21/20 15:01 07/21/20 15:01 Labs: Abnormal Lab Results - Last 24 Hours (Table) 07/21/20 07/21/20 07/21/20 Range/Units 15:01 15:01 18:16 Plt Count 118 L (150-450) k/uL Carbon Dioxide 35 H (22-30) mmol/L Creatinine 0.55 L (0.66-1.25) mg/dL Glucose 103 H (74-99) mg/dL POC Glucose (mg/dL) 217 H (75-99) mg/dL Alkaline Phosphatase 244 H (38-126) U/L 07/22/20 Range/Units 06:17 Plt Count (150-450) k/uL Carbon Dioxide (22-30) mmol/L Creatinine (0.66-1.25) mg/dL Glucose (74-99) mg/dL POC Glucose (mg/dL) 226 H (75-99) mg/dL Alkaline Phosphatase (38-126) U/L Assessment and Plan Plan: Acute exacerbation of chronic obstructive pulmonary disease Acute hypoxic respiratory failure requiring oxygen use Acute purulent bronchitis first x-ray done in the emergency room 1 view did not reveal any evidence of pneumonia repeat chest x-ray 2 views was ordered for today Will obtain sputum culture continue IV antibiotic at this point Tobacco abuse patient was counseled in length in regard to smoking cessation counseling more than 5 minutes today started on nicotine patch 21 g every 24 hours Underlying history of diabetes mellitus Underlying history of seizure disorder At this time home medication reviewed and reordered Repeat chest x-ray ordered will check sputum culture Continue with IV antibiotics IV steroids and inhaled bronchodilators Pulmonary consultation requested will follow closely
[2020-07-22] MEDS: AZITHROMYCIN 500 MG in SODIUM CHLORIDE 0.9% 250 ML IVPB SCH (16:48)
[2020-07-22 16:56] LABS: Glucose,Whole Blood 392 mg/dL (75-99)
[2020-07-22] MEDS ORDERED: NON FORMULARY DRUG (Insulin Glargine 100 UNIT/ML Vial) SQ SCH (21:00)
[2020-07-22] MEDS: SYMBICORT 160-4.5 MCG INHALER INHALATION SCH (21:13)
[2020-07-22 21:30] LABS: Glucose,Whole Blood 100 mg/dL (75-99)
[2020-07-22] MEDS: INSULIN DETEMIR (LEVEMIR) 100 UNIT/ML SYR SQ SCH (22:01)
[2020-07-22] MEDS: NICOTINE 21MG/24HR PATCH TRANSDERM SCH (22:03)
[2020-07-22] MEDS: OLANZapine 10 MG TAB PO SCH (23:13)
[2020-07-22] MEDS: MIRTAZAPINE 15 MG TAB PO SCH (23:13)
[2020-07-22] MEDS: lamoTRIgine 100 MG TAB PO SCH (23:13)
[2020-07-23] MEDS: IPRATROPIUM-ALBUTEROL 3 ML NEB INHALATION PRN (04:56)
[2020-07-23] MEDS: methylPREDNISolone SOD SUCCI 125 MG/2 ML VIAL IV SCH ×5 (04:57→22:49)
[2020-07-23] MEDS: SYMBICORT 160-4.5 MCG INHALER INHALATION SCH ×2 (07:48→19:52)
[2020-07-23] MEDS: IPRATROPIUM-ALBUTEROL 3 ML NEB INHALATION SCH ×4 (07:48→19:52)
[2020-07-23 08:29] LABS: Glucose,Whole Blood 366 mg/dL (75-99)
[2020-07-23] MEDS: INSULIN ASPART (NovoLOG) 100 UNIT/ML VIAL SQ SCH ×7 (08:44→22:15)
[2020-07-23] MEDS: PANTOPRAZOLE 40 MG TABLET PO SCH (08:45)
[2020-07-23] MEDS: NICOTINE 21MG/24HR PATCH TRANSDERM SCH (08:45)
[2020-07-23] MEDS: AZITHROMYCIN 500 MG in SODIUM CHLORIDE 0.9% 250 ML IVPB SCH (09:30)
--- NOTE | 2020-07-23 11:09 | P.PN ---
Subjective Progress Note Date: 07/23/20 Principal diagnosis: Shortness of breath. This is a 45-year-old male who presents to the emergency department on July 21, with complaints of shortness of breath. The patient has had increasing shortness of breath for the last 2 or 3 days prior to admission. He does have a known history of COPD. He denied any fever or chills. He denies chest pain or chest discomfort. He did have a complaint of nonproductive cough. He has no recent exposure to aldana virus. He denies any chest pain or chest discomfort. He denies palpitations and fluttering in the chest. He denies any nausea, vomiting, diarrhea, or abdominal pain. He also denies all genitourinary complaints. White count was 10, hemoglobin 13.6, hematocrit 42.5, and platelet count was 118,000. PT INR and PTT were all normal. Sodium was 140 potassium 4 chloride is 100 CO2 35, anion gap 5, BUN 9, and creatinine 0.55. Coronavirus testing was negative. Chest x-rays from July 21 and July 22 show some lingu lar atelectasis. Progress note dated 07/23/2020. 45-year-old gentleman, seen yesterday in the emergency department. The patient's currently in the observation unit. He is in room 152. Currently, the patient's on 5 L nasal cannula. He is not receiving any IV fluids. He only uses albuterol sulfate and ipratropium bromide at home and his nebulizer machine. He does not use oxygen at home. Unfortunately, the patient continues to smoke cigarettes. He states that he is not feeling much or any better today. No new blood work today. His pro-calcitonin level was 0.25. Objective - Vital Signs Vital signs: Vital Signs Temp 97.7 F 07/23/20 09:51 Pulse 86 07/23/20 09:51 Resp 24 07/23/20 09:51 BP 133/85 07/23/20 09:51 Pulse Ox 91 L 07/23/20 09:51 Intake & Output 07/22/20 07/23/20 07/23/20 18:59 06:59 18:59 Output Total 800 Balance -800 Weight 120.202 kg Output: Urine 800 - Exam No acute distress, oriented 3. Nasal O2 noted at 5 L. Laying on his right side. No conversational dyspnea or audible wheezing. HEENT examination is grossly unremarkable. Mucous membranes are moist. No oral lesions. Neck supple. Full range of motion. No adenopathy thyromegaly or neck vein distention. Cardiovascular examination reveals regular rhythm rate. S1-S2 normal. No S3 or S4. No discernible murmur noted. Heart rate 84 bpm. Lungs reveal bilateral diffuse expiratory rhonchi and expiratory wheezes. There is prolongation on forced maneuver. No crackles. Breath sounds equal bilaterally. Abdomen soft bowel sounds are heard. No masses or tenderness. Extremities are intact. No cyanosis clubbing or edema. Skin is without rash or lesion. Neurologic examination is brief but nonfocal. - Labs CBC & Chem 7: 07/21/20 15:01 07/21/20 15:01 Labs: Abnormal Lab Results - Last 24 Hours (Table) 07/22/20 07/22/20 07/22/20 Range/Units 12:55 16:47 21:27 POC Glucose (mg/dL) 392 H 100 H (75-99) mg/dL Procalcitonin 0.25 H (0.02-0.09) ng/mL 07/23/20 Range/Units 08:27 POC Glucose (mg/dL) 366 H (75-99) mg/dL Procalcitonin (0.02-0.09) ng/mL Assessment and Plan Assessment: Acute exacerbation of COPD, without ry pneumonia. History of diabetes mellitus. History of gastroesophageal reflux disease. Ongoing tobacco use and nicotine addiction. History of seizure disorder. History of chronic pancreatitis with pancreatic pseudocyst. Prior history of right sided pneumothorax. History of hepatitis C. Past history of IV drug abuse. Degenerative disc disease. Plan: Plan dated 07/22/2020. Currently, the patient's on Rocephin and azithromycin. These antibiotics could likely be de-escalated. The patient remains on DuoNeb, and Solu-Medrol. I will add Symbicort 160/4.5, 2 puffs twice a day. We will continue to follow make recommendations were appropriate. I will order a pro-calcitonin level as well. Prognosis is guarded. Plan dated 07/23/2020. Currently, the patient is unchanged. He remains on 5 L nasal cannula. He takes albuterol sulfate and ipratropium bromide at home via nebulizer machine. Does not use oxygen at home. Unfortunately, the patient continues to smoke cig arettes despite counseling. Currently, his lung exam is unchanged. He is currently on Symbicort, Solu-Medrol, and doing nebs. Additional recommendations and suggestions are forthcoming. Chest x-ray only shows lingular atelectasis, and antibiotics could be de-escalated. Time with Patient: Less than 30
[2020-07-23 11:21] LABS: Glucose,Whole Blood 142 mg/dL (75-99)
[2020-07-23 11:35] LABS: African American GFR (CKD) 132.1 (60.0-200.0); Albumin/Globulin Ratio 1.6 (1.60-3.17); BUN/Creat Ratio 22.86 Ratio (12.00-20.00); Calcium 8.9 mg/dL (8.7-10.3); Globulin 2.5 g/dL (1.6-3.3); Potassium 4.6 mmol/L (3.5-5.5); Total Bilirubin 0.4 mg/dL (0.3-1.2); Total Protein 6.5 g/dL (6.2-8.2)
[2020-07-23 12:47] LABS: Basophils # (A) 0.01 X 10*3/uL (0.00-0.10); Basophils % (A) 0.1 %; Eosinophils # (A) 0 X 10*3/uL (0.04-0.35); Eosinophils % (A) 0 %; HCT 44.6 % (39.6-50.0); HGB 13.1 g/dL (13.0-17.0); Lymphocytes # (A) 1.33 X 10*3/uL (0.90-5.00); Lymphocytes % (A) 10.8 %; MCH 27.8 pg (27.0-32.0); MCHC 29.4 g/dL (32.0-37.0); MCV 94.5 fL (80.0-97.0); Mean Platelet Volume 12.9 fL (9.5-12.2); Monocytes # (A) 0.26 X 10*3/uL (0.20-1.00); Monocytes % (A) 2.1 %; Neutrophils # (A) 10.61 X 10*3/uL (1.80-7.70); Neutrophils % (A) 86.3 %; Platelet Count 144 X 10*3/uL (140-440); RBC 4.72 X 10*6/uL (4.40-5.60); RDW 14.9 % (11.5-14.5)
[2020-07-23 17:09] LABS: Glucose,Whole Blood 295 mg/dL (75-99)
--- NOTE | 2020-07-23 18:28 | P.PN ---
Subjective Progress Note Date: 07/23/20 Juan Ralph, is a 45-year-old male who presented to [facility] emergency room with a chief complaint of cough and worsening shortness of breath he states his symptoms started 1 week ago and has been worsening. He was evaluated in the emergency room vital examination on presentation revealed a temperature of 98.8 pulse 99 respiration 22 blood pressure 158/96 pulse ox 82% on room air, white blood count was 10.0 hemoglobin 13.6 platelet count 118 BUN 9 creatinine 0.55 glucose 103 troponin less than 0.012 coronavirus PCR was negative EKG done in the emergency room revealed sinus tachycardia otherwise normal chest x-ray revealed left basilar atelectasis. Preliminary diagnosis was acute exacerbation of COPD he was started on IV steroids IV antibiotics and inhaled bronchodilators and was admitted to medical floor pulmonary consultation was requested. His past medical history is significant for history of COPD, history of diabetes mellitus, history of seizure disorder, history of chronic pancreatitis with pancreatic pseudocyst, previous history of right sided pneumothorax, history of hepatitis C, previous history of IV drug abuse, and history of gastroesophageal reflux disease. Patient smokes 1 pack per day and has been smoking for more than 20 years. On 07/23/2020 patient was seen and examined on the medical floor he is alert and oriented 3 in no distress, he is still complaining of cough and shortness of breath IV liters of oxygen via nasal cannula otherwise there is no complaints, there is no fever or chills no headache or dizziness no chest pain no palpitati on no nausea or vomiting no abdominal pain no diarrhea no blood in the stools no burning with urination no frequency or urgency and no hematuria is still has significant wheezing on chest exam Objective - Vital Signs Vital signs: Vital Signs Temp 97.7 F 07/23/20 09:51 Pulse 86 07/23/20 09:51 Resp 24 07/23/20 09:51 BP 133/85 07/23/20 09:51 Pulse Ox 91 L 07/23/20 09:51 Intake & Output 07/22/20 07/23/20 07/23/20 18:59 06:59 18:59 Output Total 800 Balance -800 Weight 120.202 kg Output: Urine 800 - Exam In general patient is alert and oriented 3 in no apparent distress HEENT head normocephalic and atraumatic Neck is supple no JVD no goiter no lymphadenopathy Chest exam reveals a few scattered crackles bilaterally with prolonged expiratory phase and severe wheezing Cardiac exam reveals regular heart sounds S1 and S2 no gallops no murmurs Abdomen is soft nontender no organomegaly with normal bowel sounds Extremity exam reveals no edema no cyanosis or clubbing Neurological examination reveals no gross focal deficit - Labs CBC & Chem 7: 07/23/20 06:42 07/23/20 06:42 Labs: Abnormal Lab Results - Last 24 Hours (Table) 07/22/20 07/22/20 07/22/20 Range/Units 12:55 16:47 21:27 POC Glucose (mg/dL) 392 H 100 H (75-99) mg/dL Procalcitonin 0.25 H (0.02-0.09) ng/mL 07/23/20 Range/Units 08:27 POC Glucose (mg/dL) 366 H (75-99) mg/dL Procalcitonin (0.02-0.09) ng/mL Assessment and Plan Plan: Acute exacerbation of chronic obstructive pulmonary disease Acute hypoxic respiratory failure requiring oxygen use Acute purulent bronchitis first x-ray done in the emergency room 1 view did not reveal any evidence of pneumonia repeat chest x-ray 2 views was ordered for today Will obtain sputum culture continue IV antibiotic at this point Tobacco abuse patient was counseled in length in regard to smoking cessation counseling more than 5 minutes today started on nicotine patch 21 g every 24 hours Underlying history of diabetes mellitus Underlying history of seizure disorder At this time home medication reviewed and reordered Repeat chest x-ray ordered will check sputum culture Continue with IV antibiotics IV steroids and inhaled bronchodilators Pulmonary consultation requested will follow closely
[2020-07-23 21:20] LABS: Glucose,Whole Blood 126 mg/dL (75-99)
[2020-07-23] MEDS: lamoTRIgine 100 MG TAB PO SCH (22:15)
[2020-07-23] MEDS: SUBOXONE 8MG/2MG PO SCH (22:15)
[2020-07-23] MEDS: INSULIN DETEMIR (LEVEMIR) 100 UNIT/ML SYR SQ SCH (22:15)
[2020-07-23] MEDS: CEFDINIR 300 MG CAP PO SCH (22:15)
[2020-07-23] MEDS: OLANZapine 10 MG TAB PO SCH (22:48)
[2020-07-23] MEDS: MIRTAZAPINE 15 MG TAB PO SCH (22:49)
[2020-07-24] MEDS: methylPREDNISolone SOD SUCCI 125 MG/2 ML VIAL IV SCH ×4 (05:52→23:52)
[2020-07-24 06:53] LABS: Glucose,Whole Blood 271 mg/dL (75-99)
[2020-07-24] MEDS: INSULIN ASPART (NovoLOG) 100 UNIT/ML VIAL SQ SCH ×7 (07:28→21:29)
[2020-07-24] MEDS: CEFDINIR 300 MG CAP PO SCH ×2 (07:29→21:44)
[2020-07-24] MEDS: PANTOPRAZOLE 40 MG TABLET PO SCH (07:29)
[2020-07-24] MEDS: IPRATROPIUM-ALBUTEROL 3 ML NEB INHALATION SCH ×4 (08:05→20:27)
[2020-07-24] MEDS: SYMBICORT 160-4.5 MCG INHALER INHALATION SCH ×2 (08:05→20:27)
[2020-07-24] MEDS: NICOTINE 21MG/24HR PATCH TRANSDERM SCH (08:38)
[2020-07-24] MEDS: SUBOXONE 8MG/2MG PO SCH ×3 (09:11→21:44)
[2020-07-24 10:42] LABS: INR 1.2 (<1.2); Prothrombin Time 12.3 sec (9.0-12.0)
[2020-07-24 10:50] LABS: ALT 15 U/L (4-49); AST 22 U/L (17-59); African American GFR (CKD) >90 (>60 ml/min/1.73 sqM); Albumin 3.7 g/dL (3.5-5.0); Albumin/Globulin Ratio 1.2; Alkaline Phosphatase 171 U/L (38-126); Anion Gap 7 mmol/L; Blood Urea Nitrogen 22 mg/dL (9-20); Calcium 8.9 mg/dL (8.4-10.2); Carbon Dioxide 33 mmol/L (22-30); Chloride 101 mmol/L (98-107); Globulin 3.2 g/dL; Glucose 178 mg/dL (74-99); Non-African American GFR(CKD) >90 (>60 ml/min/1.73 sqM); Potassium 4.4 mmol/L (3.5-5.1); Sodium 141 mmol/L (137-145); Total Bilirubin 0.3 mg/dL (0.2-1.3); Total Protein 6.9 g/dL (6.3-8.2)
[2020-07-24 11:20] LABS: Glucose,Whole Blood 115 mg/dL (75-99)
--- NOTE | 2020-07-24 12:43 | P.PN ---
Subjective Progress Note Date: 07/24/20 Juan Ralph, is a 45-year-old male who presented to [facility] emergency room with a chief complaint of cough and worsening shortness of breath he states his symptoms started 1 week ago and has been worsening. He was evaluated in the emergency room vital examination on presentation revealed a temperature of 98.8 pulse 99 respiration 22 blood pressure 158/96 pulse ox 82% on room air, white blood count was 10.0 hemoglobin 13.6 platelet count 118 BUN 9 creatinine 0.55 glucose 103 troponin less than 0.012 coronavirus PCR was negative EKG done in the emergency room revealed sinus tachycardia otherwise normal chest x-ray revealed left basilar atelectasis. Preliminary diagnosis was acute exacerbation of COPD he was started on IV steroids IV antibiotics and inhaled bronchodilators and was admitted to medical floor pulmonary consultation was requested. His past medical history is significant for history of COPD, history of diabetes mellitus, history of seizure disorder, history of chronic pancreatitis with pancreatic pseudocyst, previous history of right sided pneumothorax, history of hepatitis C, previous history of IV drug abuse, and history of gastroesophageal reflux disease. Patient smokes 1 pack per day and has been smoking for more than 20 years. On 07/23/2020 patient was seen and examined on the medical floor he is alert and oriented 3 in no distress, he is still complaining of cough and shortness of breath IV liters of oxygen via nasal cannula otherwise there is no complaints, there is no fever or chills no headache or dizziness no chest pain no palpitati on no nausea or vomiting no abdominal pain no diarrhea no blood in the stools no burning with urination no frequency or urgency and no hematuria is still has significant wheezing on chest exam On 07/24/2020 patient is alert and oriented 3. Patient currently on high flow increasing to 8 L. patient remains on IV steroids. Pulmonary services are following. Patient still have wheezing to auscultation. Patient denies chest pain. Patient denies nausea vomiting or diarrhea. Patient denies any urinary burning or frequency Objective - Vital Signs Vital signs: Vital Signs Temp 97.9 F 07/24/20 09:38 Pulse 96 07/24/20 12:02 Resp 18 07/24/20 09:38 BP 132/70 07/24/20 09:38 Pulse Ox 95 07/24/20 09:38 Intake & Output 0307/24/20 07/24/20 18:59 06:59 18:59 Intake Total 1150 600 Output Total 150 Balance 1000 600 Weight 120.202 kg Intake: Oral 1150 600 Output: Urine 150 Other: Voiding Method Urinal Urinal # Voids 2 - Exam In general patient is alert and oriented 3 in no apparent distress HEENT head normocephalic and atraumatic Neck is supple no JVD no goiter no lymphadenopathy Chest exam reveals a few scattered crackles bilaterally with prolonged expiratory phase and severe wheezing Cardiac exam reveals regular heart sounds S1 and S2 no gallops no murmurs Abdomen is soft nontender no organomegaly with normal bowel sounds Extremity exam reveals no edema no cyanosis or clubbing Neurological examination reveals no gross focal deficit - Labs CBC & Chem 7: 07/23/20 06:42 07/24/20 10:06 Labs: Abnormal Lab Results - Last 24 Hours (Table) 07/23/20 07/23/20 07/23/20 Range/Units 06:42 17:08 21:18 WBC 12.30 H (4.50-10.00) X 10*3/uL MCHC 29.4 L (32.0-37.0) g/dL RDW 14.9 H (11.5-14.5) % MPV 12.9 H (9.5-12.2) fL Immature Gran # 0.09 H (0.00-0.04) X 10*3/uL Neutrophils # 10.61 H (1.80-7.70) X 10*3/uL Eosinophils # 0 L (0.04-0.35) X 10*3/uL PT (9.0-12.0) sec INR (<1.2) Carbon Dioxide (22-30) mmol/L BUN (9-20) mg/dL Creatinine (0.66-1.25) mg/dL Glucose (74-99) mg/dL POC Glucose (mg/dL) 295 H 126 H (75-99) mg/dL Alkaline Phosphatase (38-126) U/L 07/24/20 07/24/20 07/24/20 Range/Units 06:50 10:06 10:06 WBC (4.50-10.00) X 10*3/uL MCHC (32.0-37.0) g/dL RDW (11.5-14.5) % MPV (9.5-12.2) fL Immature Gran # (0.00-0.04) X 10*3/uL Neutrophils # (1.80-7.70) X 10*3/uL Eosinophils # (0.04-0.35) X 10*3/uL PT 12.3 H (9.0-12.0) sec INR 1.2 H (<1.2) Carbon Dioxide 33 H (22-30) mmol/L BUN 22 H (9-20) mg/dL Creatinine 0.59 L (0.66-1.25) mg/dL Glucose 178 H (74-99) mg/dL POC Glucose (mg/dL) 271 H (75-99) mg/dL Alkaline Phosphatase 171 H (38-126) U/L 07/24/20 Range/Units 11:18 WBC (4.50-10.00) X 10*3/uL MCHC (32.0-37.0) g/dL RDW (11.5-14.5) % MPV (9.5-12.2) fL Immature Gran # (0.00-0.04) X 10*3/uL Neutrophils # (1.80-7.70) X 10*3/uL Eosinophils # (0.04-0.35) X 10*3/uL PT (9.0-12.0) sec INR (<1.2) Carbon Dioxide (22-30) mmol/L BUN (9-20) mg/dL Creatinine (0.66-1.25) mg/dL Glucose (74-99) mg/dL POC Glucose (mg/dL) 115 H (75-99) mg/dL Alkaline Phosphatase (38-126) U/L Assessment and Plan Plan: Acute exacerbation of chronic obstructive pulmonary disease Acute hypoxic respiratory failure requiring oxygen use Acute purulent bronchitis first x-ray done in the emergency room 1 view did not reveal any evidence of pneumonia repeat chest x-ray 2 views was ordered for brenda hollins Will obtain sputum culture continue IV antibiotic at this point Tobacco abuse patient was counseled in length in regard to smoking cessation counseling more than 5 minutes today started on nicotine patch 21 g every 24 hours Underlying history of diabetes mellitus Underlying history of seizure disorder At this time home medication reviewed and reordered Repeat chest x-ray ordered will check sputum culture Continue with IV antibiotics IV steroids and inhaled bronchodilators Pulmonary service is following
[2020-07-24 16:52] LABS: Glucose,Whole Blood 126 mg/dL (75-99)
--- NOTE | 2020-07-24 18:20 | P.PN ---
Subjective Progress Note Date: 07/24/20 Principal diagnosis: Acute exacerbation of chronic obstructive pulmonary disease This is a 45-year-old male who presents to the emergency department on July 21, with complaints of shortness of breath. The patient has had increasing shortness of breath for the last 2 or 3 days prior to admission. He does have a known history of COPD. He denied any fever or chills. He denies chest pain or chest discomfort. He did have a complaint of nonproductive cough. He has no recent exposure to aldana virus. He denies any chest pain or chest discomfort. He denies palpitations and fluttering in the chest. He denies any nausea, vomiting, diarrhea, or abdominal pain. He also denies all genitourinary complaints. White count was 10, hemoglobin 13.6, hematocrit 42.5, and platelet count was 118,000. PT INR and PTT were all normal. Sodium was 140 potassium 4 chloride is 100 CO2 35, anion gap 5, BUN 9, and creatinine 0.55. Coronavirus testing was negative. Chest x-rays from July 21 and July 22 show some lingular atelectasis. Progress note dated 07/23/2020. 45-year-old gentleman, seen yesterday in the emergency department. The patient's currently in the observation unit. He is in room 152. Currently, the patient's on 5 L nasal cannula. He is not receiving any IV fluids. He only uses albuterol sulfate and ipratropium bromide at home and his nebulizer machine . He does not use oxygen at home. Unfortunately, the patient continues to smoke cigarettes. He states that he is not feeling much or any better today. No new blood work today. His pro-calcitonin level was 0.25. The patient is seen today 07/24/2020 in follow-up on the regular medical floor. He is currently resting comfortably in bed. Awake and alert in no acute distress. Breathing a bit easier today compared to yesterday. Not quite back to his baseline. Still dyspneic with minimal exertion. Cough, congestion, chest tightness and wheezing. He is on 8 L high flow nasal cannula to maintain O2 saturation in the 90s. Sodium 141. Potassium 4.4. Creatinine 0.59. Continue on Symbicort, DuoNeb inhalations, IV Solu-Medrol, NicoDerm patch in place Objective - Vital Signs Vital signs: Vital Signs Temp 97.6 F 07/24/20 13:50 Pulse 88 07/24/20 16:35 Resp 18 07/24/20 13:50 BP 156/77 07/24/20 13:50 Pulse Ox 91 L 07/24/20 13:50 Intake & Output 07/23/20 07/24/20 07/24/20 18:59 06:59 18:59 Intake Total 1150 600 Output Total 150 Balance 1000 600 Weight 120.202 kg Intake: Oral 1150 600 Output: Urine 150 Other: Voiding Method Urinal Urinal # Voids 2 - Exam GENERAL EXAM: Alert, pleasant 45-year-old gentleman, on 8 L high flow nasal cannula. comfortable in no apparent distress. HEAD: Normocephalic. EYES: Normal reaction of pupils, equal size. NOSE: Clear with pink turbinates. THROAT: No erythema or exudates. NECK: No masses, no JVD. CHEST: No chest wall deformity. LUNGS: Equal air entry with bilateral end expiratory wheeze, diminished. CVS: S1 and S2 normal with no audible murmur, regular rhythm. ABDOMEN: No hepatosplenomegaly, normal bowel sounds, no guarding or rigidity. SPINE: No scoliosis or deformity SKIN: No rashes CENTRAL NERVOUS SYSTEM: No focal deficits, tone is normal in all 4 extremities. EXTREMITIES: There is no peripheral edema. No clubbing, no cyanosis. Peripheral pulses are intact. - Labs CBC & Chem 7: 07/23/20 06:42 07/24/20 10:06 Labs: Abnormal Lab Results - Last 24 Hours (Table) 07/23/20 07/24/20 07/24/20 Range/Units 21:18 06:50 10:06 PT (9.0-12.0) sec INR (<1.2) Carbon Dioxide 33 H (22-30) mmol/L BUN 22 H (9-20) mg/dL Creatinine 0.59 L (0.66-1.25) mg/dL Glucose 178 H (74-99) mg/dL POC Glucose (mg/dL) 126 H 271 H (75-99) mg/dL Alkaline Phosphatase 171 H (38-126) U/L 07/24/20 07/24/20 07/24/20 Range/Units 10:06 11:18 16:50 PT 12.3 H (9.0-12.0) sec INR 1.2 H (<1.2) Carbon Dioxide (22-30) mmol/L BUN (9-20) mg/dL Creatinine (0.66-1.25) mg/dL Glucose (74-99) mg/dL POC Glucose (mg/dL) 115 H 126 H (75-99) mg/dL Alkaline Phosphatase (38-126) U/L Assessment and Plan Assessment: 1 Acute exacerbation of chronic obstructive pulmonary disease 2 Chronic and ongoing tobacco dependence 3 History of IV drug abuse 4 History of hepatitis C 5 History of seizure disorder 6 History of chronic pancreatitis with pancreatic pseudocyst 7 History of right-sided pneumothorax 8 Degenerative disc disease 9 Gastroesophageal reflux disease 10 Diabetes mellitus Plan: The patient was seen and evaluated by Dr. Finley Continue with the current treatment plan Titrate down the FiO2 as tolerated Educated regarding the importance of complete smoking cessation We will continue to follow I, the cosigning physician, performed a history & physical examination of the patient. Lungs sounds with bilateral end expiratory wheeze, diminished. Maintaining good O2 saturations in the 90s on 8 L high flow nasal cannula. I discussed the assessment and plan of care with my nurse practitioner, Carmen Caldera. I attest to the above note as dictated by her.
[2020-07-24 20:34] LABS: Glucose,Whole Blood 198 mg/dL (75-99)
[2020-07-24] MEDS: lamoTRIgine 100 MG TAB PO SCH (21:22)
[2020-07-24] MEDS: MIRTAZAPINE 15 MG TAB PO SCH (21:22)
[2020-07-24] MEDS: INSULIN DETEMIR (LEVEMIR) 100 UNIT/ML SYR SQ SCH (21:22)
[2020-07-24] MEDS: OLANZapine 10 MG TAB PO SCH (21:22)
[2020-07-25] MEDS: methylPREDNISolone SOD SUCCI 125 MG/2 ML VIAL IV SCH ×3 (05:46→17:26)
[2020-07-25 07:09] LABS: Glucose,Whole Blood 327 mg/dL (75-99)
[2020-07-25] MEDS: IPRATROPIUM-ALBUTEROL 3 ML NEB INHALATION SCH ×4 (07:46→20:23)
[2020-07-25] MEDS: SYMBICORT 160-4.5 MCG INHALER INHALATION SCH ×2 (07:47→20:23)
[2020-07-25 09:08] LABS: ALT 16 U/L (4-49); AST 31 U/L (17-59); African American GFR (CKD) >90 (>60 ml/min/1.73 sqM); Albumin 3.6 g/dL (3.5-5.0); Albumin/Globulin Ratio 1.2; Alkaline Phosphatase 166 U/L (38-126); Anion Gap 4 mmol/L; Calcium 8.8 mg/dL (8.4-10.2); Carbon Dioxide 32 mmol/L (22-30); Chloride 100 mmol/L (98-107); Glucose 327 mg/dL (74-99); Non-African American GFR(CKD) >90 (>60 ml/min/1.73 sqM); Sodium 136 mmol/L (137-145); Total Bilirubin 0.3 mg/dL (0.2-1.3); Total Protein 6.6 g/dL (6.3-8.2)
[2020-07-25] MEDS: PANTOPRAZOLE 40 MG TABLET PO SCH (09:12)
[2020-07-25] MEDS: OLANZapine 10 MG TAB PO SCH (09:12)
[2020-07-25] MEDS: CEFDINIR 300 MG CAP PO SCH ×2 (09:12→20:45)
[2020-07-25] MEDS: NICOTINE 21MG/24HR PATCH TRANSDERM SCH (09:13)
[2020-07-25] MEDS: INSULIN ASPART (NovoLOG) 100 UNIT/ML VIAL SQ SCH ×7 (09:14→20:46)
[2020-07-25] MEDS: SUBOXONE 8MG/2MG PO SCH ×2 (09:42→20:45)
[2020-07-25 09:48] LABS: Blood Urea Nitrogen 23 mg/dL (9-20)
[2020-07-25 11:11] LABS: Basophils # (A) 0.01 X 10*3/uL (0.00-0.10); Basophils % (A) 0.2 %; Eosinophils # (A) 0 X 10*3/uL (0.04-0.35); Eosinophils % (A) 0 %; HCT 44.4 % (39.6-50.0); Lymphocytes # (A) 0.87 X 10*3/uL (0.90-5.00); Lymphocytes % (A) 13.1 %; MCH 27.2 pg (27.0-32.0); MCHC 29.3 g/dL (32.0-37.0); MCV 92.9 fL (80.0-97.0); Mean Platelet Volume 12.7 fL (9.5-12.2); Monocytes # (A) 0.27 X 10*3/uL (0.20-1.00); Monocytes % (A) 4.1 %; Neutrophils # (A) 5.44 X 10*3/uL (1.80-7.70); Neutrophils % (A) 81.7 %; Platelet Count 118 X 10*3/uL (140-440); RBC 4.78 X 10*6/uL (4.40-5.60); RDW 14.8 % (11.5-14.5); WBC 6.65 X 10*3/uL (4.50-10.00)
[2020-07-25 11:31] LABS: Glucose,Whole Blood 226 mg/dL (75-99)
--- NOTE | 2020-07-25 15:27 | P.PN ---
Subjective Progress Note Date: 07/25/20 Principal diagnosis: Acute exacerbation of chronic obstructive pulmonary disease This is a 45-year-old male who presents to the emergency department on July 21, with complaints of shortness of breath. The patient has had increasing shortness of breath for the last 2 or 3 days prior to admission. He does have a known history of COPD. He denied any fever or chills. He denies chest pain or chest discomfort. He did have a complaint of nonproductive cough. He has no recent exposure to aldana virus. He denies any chest pain or chest discomfort. He denies palpitations and fluttering in the chest. He denies any nausea, vomiting, diarrhea, or abdominal pain. He also denies all genitourinary complaints. White count was 10, hemoglobin 13.6, hematocrit 42.5, and platelet count was 118,000. PT INR and PTT were all normal. Sodium was 140 potassium 4 chloride is 100 CO2 35, anion gap 5, BUN 9, and creatinine 0.55. Coronavirus testing was negative. Chest x-rays from July 21 and July 22 show some lingular atelectasis. Progress note dated 07/23/2020. 45-year-old gentleman, seen yesterday in the emergency department. The patient's currently in the observation unit. He is in room 152. Currently, the patient's on 5 L nasal cannula. He is not receiving any IV fluids. He only uses albuterol sulfate and ipratropium bromide at home and his nebulizer machine . He does not use oxygen at home. Unfortunately, the patient continues to smoke cigarettes. He states that he is not feeling much or any better today. No new blood work today. His pro-calcitonin level was 0.25. The patient is seen today 07/24/2020 in follow-up on the regular medical floor. He is currently resting comfortably in bed. Awake and alert in no acute distress. Breathing a bit easier today compared to yesterday. Not quite back to his baseline. Still dyspneic with minimal exertion. Cough, congestion, chest tightness and wheezing. He is on 8 L high flow nasal cannula to maintain O2 saturation in the 90s. Sodium 141. Potassium 4.4. Creatinine 0.59. Continue on Symbicort, DuoNeb inhalations, IV Solu-Medrol, NicoDerm patch in place The patient is seen today 07/25/2020 in follow-up on the regular medical floor. He is currently resting comfortably in bed. Awake and alert in no acute distress. Breathing a bit easier today compared to yesterday. Continue O2 saturations in the 90s on 4 L now. He is afebrile. Hemodynamically stable. Sputum culture pending. White count 6.6. Hemoglobin 13.0. Sodium 136. Potassium 5.0. Bicarb 32. Creatinine 0.64. He remains on DuoNeb inhalations, Symbicort, IV Solu-Medrol. Antibiotics in the form of Omnicef. NicoDerm patch in place. Objective - Vital Signs Vital signs: Vital Signs Temp 97.4 F L 07/25/20 14:13 Pulse 69 07/25/20 14:13 Resp 18 07/25/20 14:13 BP 148/85 07/25/20 14:13 Pulse Ox 94 L 07/25/20 14:13 Intake & Output 07/24/20 07/25/20 07/25/20 18:59 06:59 18:59 Intake Total 600 Balance 600 Intake: Oral 600 Other: Voiding Method Urinal Urinal # Voids 3 - Exam GENERAL EXAM: Alert, pleasant 45-year-old gentleman, on 4 L high flow nasal ca nnula. comfortable in no apparent distress. HEAD: Normocephalic. EYES: Normal reaction of pupils, equal size. NOSE: Clear with pink turbinates. THROAT: No erythema or exudates. NECK: No masses, no JVD. CHEST: No chest wall deformity. LUNGS: Equal air entry with bilateral end expiratory wheeze, diminished. CVS: S1 and S2 normal with no audible murmur, regular rhythm. ABDOMEN: No hepatosplenomegaly, normal bowel sounds, no guarding or rigidity. SPINE: No scoliosis or deformity SKIN: No rashes CENTRAL NERVOUS SYSTEM: No focal deficits, tone is normal in all 4 extremities. EXTREMITIES: There is no peripheral edema. No clubbing, no cyanosis. Peripheral pulses are intact. - Labs CBC & Chem 7: 07/25/20 08:12 07/25/20 08:12 Labs: Abnormal Lab Results - Last 24 Hours (Table) 07/24/20 07/24/20 07/25/20 Range/Units 16:50 20:33 07:06 MCHC (32.0-37.0) g/dL RDW (11.5-14.5) % Plt Count (140-440) X 10*3/uL MPV (9.5-12.2) fL Immature Gran # (0.00-0.04) X 10*3/uL Lymphocytes # (0.90-5.00) X 10*3/uL Eosinophils # (0.04-0.35) X 10*3/uL Sodium (137-145) mmol/L Carbon Dioxide (22-30) mmol/L BUN (9-20) mg/dL Creatinine (0.66-1.25) mg/dL Glucose (74-99) mg/dL POC Glucose (mg/dL) 126 H 198 H 327 H (75-99) mg/dL Alkaline Phosphatase (38-126) U/L 07/25/20 07/25/20 07/25/20 Range/Units 08:12 08:12 11:29 MCHC 29.3 L (32.0-37.0) g/dL RDW 14.8 H (11.5-14.5) % Plt Count 118 L (140-440) X 10*3/uL MPV 12.7 H (9.5-12.2) fL Immature Gran # 0.06 H (0.00-0.04) X 10*3/uL Lymphocytes # 0.87 L (0.90-5.00) X 10*3/uL Eosinophils # 0 L (0.04-0.35) X 10*3/uL Sodium 136 L (137-145) mmol/L Carbon Dioxide 32 H (22-30) mmol/L BUN 23 H (9-20) mg/dL Creatinine 0.64 L (0.66-1.25) mg/dL Glucose 327 H (74-99) mg/dL POC Glucose (mg/dL) 226 H (75-99) mg/dL Alkaline Phosphatase 166 H (38-126) U/L Microbiology - Last 24 Hours (Table) 07/25/20 08:00 Sputum Culture - Preliminary Sputum Assessment and Plan Assessment: 1 Acute exacerbation of chronic obstructive pulmonary disease 2 Chronic and ongoing tobacco dependence 3 History of IV drug abuse 4 History of hepatitis C 5 History of seizure disorder 6 History of chronic pancreatitis with pancreatic pseudocyst 7 History of right-sided pneumothorax 8 Degenerative disc disease 9 Gastroesophageal reflux disease 10 Diabetes mellitus Plan: The patient was seen and evaluated by Dr. Finley Continue with the current treatment plan Titrate down the FiO2 as tolerated Again educated regarding the importance of complete smoking cessation Probable discharge in the next 24-48 hours We will continue to follow I, the cosigning physician, performed a history & physical examination of the patient. Lungs sounds with bilateral end expiratory wheeze, diminished. Maintaining good O2 saturations in the 90s on 4 L high flow nasal cannula. I discussed the assessment and plan of care with my nurse practitioner, Carmen Caldera. I attest to the above note as dictated by her.
[2020-07-25 16:47] LABS: Glucose,Whole Blood 173 mg/dL (75-99)
--- NOTE | 2020-07-25 18:56 | P.PN ---
Subjective Progress Note Date: 07/25/20 Juan Ralph, is a 45-year-old male who presented to [facility] emergency room with a chief complaint of cough and worsening shortness of breath he states his symptoms started 1 week ago and has been worsening. He was evaluated in the emergency room vital examination on presentation revealed a temperature of 98.8 pulse 99 respiration 22 blood pressure 158/96 pulse ox 82% on room air, white blood count was 10.0 hemoglobin 13.6 platelet count 118 BUN 9 creatinine 0.55 glucose 103 troponin less than 0.012 coronavirus PCR was negative EKG done in the emergency room revealed sinus tachycardia otherwise normal chest x-ray revealed left basilar atelectasis. Preliminary diagnosis was acute exacerbation of COPD he was started on IV steroids IV antibiotics and inhaled bronchodilators and was admitted to medical floor pulmonary consultation was requested. His past medical history is significant for history of COPD, history of diabetes mellitus, history of seizure disorder, history of chronic pancreatitis with pancreatic pseudocyst, previous history of right sided pneumothorax, history of hepatitis C, previous history of IV drug abuse, and history of gastroesophageal reflux disease. Patient smokes 1 pack per day and has been smoking for more than 20 years. On 07/23/2020 patient was seen and examined on the medical floor he is alert and oriented 3 in no distress, he is still complaining of cough and shortness of breath IV liters of oxygen via nasal cannula otherwise there is no complaints, there is no fever or chills no headache or dizziness no chest pain no palpitati on no nausea or vomiting no abdominal pain no diarrhea no blood in the stools no burning with urination no frequency or urgency and no hematuria is still has significant wheezing on chest exam On 07/24/2020 patient is alert and oriented 3. Patient currently on high flow increasing to 8 L. patient remains on IV steroids. Pulmonary services are following. Patient still have wheezing to auscultation. Patient denies chest pain. Patient denies nausea vomiting or diarrhea. Patient denies any urinary burning or frequency On 07/25/2020 patient was seen and examined on the medical floor he is alert and oriented 3 in no apparent distress he is still complaining of cough and shortness of breath he still has significant wheezing on exam otherwise no change in condition there is no fever or chills no headache or dizziness no chest pain no palpitation no nausea or vomiting no abdominal pain no diarrhea no blood in the stools no burning with urination no frequency or urgency and no hematuria Objective - Vital Signs Vital signs: Vital Signs Temp 98.8 F 07/25/20 07:11 Pulse 81 07/25/20 07:11 Resp 20 07/25/20 07:11 BP 128/68 07/25/20 07:11 Pulse Ox 95 07/25/20 07:11 Intake & Output 07/24/20 07/25/20 07/25/20 18:59 06:59 18:59 Intake Total 600 Balance 600 Intake: Oral 600 Other: Voiding Method Urinal Urinal # Voids 3 - Exam In general patient is alert and oriented 3 in no apparent distress HEENT head normocephalic and atraumatic Neck is supple no JVD no goiter no lymphadenopathy Chest exam reveals a few scattered crackles bilaterally with prolonged expiratory phase and severe wheezing Cardiac exam reveals regular heart sounds S1 and S2 no gallops no murmurs Abdomen is soft nontender no organomegaly with normal bowel sounds Extremity exam reveals no edema no cyanosis or clubbing Neurological examination reveals no gross focal deficit - Labs CBC & Chem 7: 07/25/20 08:12 07/25/20 08:12 Labs: Abnormal Lab Results - Last 24 Hours (Table) 07/24/20 07/24/20 07/24/20 Range/Units 10:06 10:06 11:18 PT 12.3 H (9.0-12.0) sec INR 1.2 H (<1.2) Carbon Dioxide 33 H (22-30) mmol/L BUN 22 H (9-20) mg/dL Creatinine 0.59 L (0.66-1.25) mg/dL Glucose 178 H (74-99) mg/dL POC Glucose (mg/dL) 115 H (75-99) mg/dL Alkaline Phosphatase 171 H (38-126) U/L 07/24/20 07/24/20 07/25/20 Range/Units 16:50 20:33 07:06 PT (9.0-12.0) sec INR (<1.2) Carbon Dioxide (22-30) mmol/L BUN (9-20) mg/dL Creatinine (0.66-1.25) mg/dL Glucose (74-99) mg/dL POC Glucose (mg/dL) 126 H 198 H 327 H (75-99) mg/dL Alkaline Phosphatase (38-126) U/L Assessment and Plan Plan: Acute exacerbation of chronic obstructive pulmonary disease Acute hypoxic respiratory failure requiring oxygen use Acute purulent bronchitis first x-ray done in the emergency room 1 view did not reveal any evidence of pneumonia repeat chest x-ray 2 views was ordered for today Will obtain sputum culture continue IV antibiotic at this point Tobacco abuse patient was counseled in length in regard to smoking cessation counseling more than 5 minutes today started on nicotine patch 21 g every 24 hours Underlying history of diabetes mellitus Underlying history of seizure disorder At this time home medication reviewed and reordered Repeat chest x-ray ordered will check sputum culture Continue with IV antibiotics IV steroids and inhaled bronchodilators Pulmonary service is following
[2020-07-25 20:33] LABS: Glucose,Whole Blood 207 mg/dL (75-99)
[2020-07-25] MEDS: lamoTRIgine 100 MG TAB PO SCH (20:45)
[2020-07-25] MEDS: MIRTAZAPINE 15 MG TAB PO SCH (20:45)
[2020-07-25] MEDS: INSULIN DETEMIR (LEVEMIR) 100 UNIT/ML SYR SQ SCH (20:45)
[2020-07-26] MEDS: methylPREDNISolone SOD SUCCI 125 MG/2 ML VIAL IV SCH ×3 (00:49→12:41)
[2020-07-26] MEDS: IPRATROPIUM-ALBUTEROL 3 ML NEB INHALATION PRN (01:20)
[2020-07-26 07:04] LABS: Glucose,Whole Blood 306 mg/dL (75-99)
[2020-07-26] MEDS: PANTOPRAZOLE 40 MG TABLET PO SCH (07:33)
[2020-07-26] MEDS: INSULIN ASPART (NovoLOG) 100 UNIT/ML VIAL SQ SCH ×4 (07:36→12:43)
[2020-07-26] MEDS: SYMBICORT 160-4.5 MCG INHALER INHALATION SCH (08:39)
[2020-07-26] MEDS: IPRATROPIUM-ALBUTEROL 3 ML NEB INHALATION SCH ×2 (08:39→12:23)
[2020-07-26] MEDS: NICOTINE 21MG/24HR PATCH TRANSDERM SCH (09:08)
[2020-07-26] MEDS: CEFDINIR 300 MG CAP PO SCH (09:32)
[2020-07-26] MEDS: SUBOXONE 8MG/2MG PO SCH (09:33)
[2020-07-26 10:27] LABS: Basophils # (A) 0.1 k/uL (0-0.2); Basophils % (A) 1 %; Eosinophils # (A) 0.1 k/uL (0-0.7); Eosinophils % (A) 2 %; HCT 41.9 % (39.0-53.0); HGB 13.8 gm/dL (13.0-17.5); Lymphocytes # (A) 0.9 k/uL (1.0-4.8); Lymphocytes % (A) 11 %; MCH 29.3 pg (25.0-35.0); MCHC 32.8 g/dL (31.0-37.0); MCV 89.1 fL (80.0-100.0); Mean Platelet Volume 9.2; Monocytes # (A) 0.3 k/uL (0-1.0); Monocytes % (A) 3 %; Neutrophils # (A) 7.4 k/uL (1.3-7.7); Neutrophils % (A) 84 %; Platelet Count 110 k/uL (150-450); WBC 8.9 k/uL (3.8-10.6)
[2020-07-26 10:31] VITALS: RESP 18
[2020-07-26 10:37] LABS: ALT 26 U/L (4-49); AST 52 U/L (17-59); African American GFR (CKD) >90 (>60 ml/min/1.73 sqM); Albumin 3.6 g/dL (3.5-5.0); Albumin/Globulin Ratio 1.2; Alkaline Phosphatase 143 U/L (38-126); Anion Gap 3 mmol/L; Blood Urea Nitrogen 22 mg/dL (9-20); Calcium 8.6 mg/dL (8.4-10.2); Carbon Dioxide 33 mmol/L (22-30); Chloride 102 mmol/L (98-107); Globulin 2.9 g/dL; Glucose 173 mg/dL (74-99); Non-African American GFR(CKD) >90 (>60 ml/min/1.73 sqM); Potassium 4.1 mmol/L (3.5-5.1); Sodium 138 mmol/L (137-145); Total Bilirubin 0.4 mg/dL (0.2-1.3); Total Protein 6.5 g/dL (6.3-8.2)
--- NOTE | 2020-07-26 11:27 | P.DS ---
Providers Date of admission: 07/21/20 17:12 Expected date of discharge: 07/26/20 Attending physician: Marialuisa Espinoza Consults: 07/22/20 10:21 Consult Physician Routine Consulting Provider: Shelby Finley Consult Reason/Comments: shortness of breath Do you want consulting provider notified?: Yes Primary care physician: Marialuisa Espinoza [facility] Course: Discharge diagnosis Acute exacerbation of chronic obstructive pulmonary disease Acute hypoxic respiratory failure requiring oxygen use Acute purulent bronchitis first x-ray done in the emergency room 1 view did not reveal any evidence of pneumonia repeat chest x-ray 2 views was ordered for today Will obtain sputum culture continue IV antibiotic at this point Tobacco abuse patient was counseled in length in regard to smoking cessation counseling more than 5 minutes today started on nicotine patch 21 g every 24 hours Underlying history of diabetes mellitus Underlying history of seizure disorder Hospital course Juan Ralph, is a 45-year-old male who presented to [facility] emergency room with a chief complaint of cough and worsening shortness of breath he states his symptoms started 1 week ago and has been worsening. He was evaluated in the emergency room vital examination on presentation revealed a temperature of 98.8 pulse 99 respiration 22 blood pressure 158/96 pulse ox 82% on room air, white blood count was 10.0 hemoglobin 13.6 platelet count 118 BUN 9 creatinine 0.55 glucose 103 troponin less than 0.012 coronavirus PCR was negative EKG done in the emergency room revealed sinus tachycardia otherwise normal chest x-ray revealed left basilar atelectasis. Preliminary diagnosis was acute exacerbation of COPD he was started on IV steroids IV antibiotics and inhaled bronchodilators and was admitted to medical floor pulmonary consultation was requested. His past medical history is significant for history of COPD, history of diabetes mellitus, history of seizure disorder, history of chronic pancreatitis with pancreatic pseudocyst, previous history of right sided pneumothorax, history of hepatitis C, previous history of IV drug abuse, and history of gastroesophageal reflux disease. Patient smokes 1 pack per day and has been smoking for more than 20 years. On 07/23/2020 patient was seen and examined on the medical floor he is alert and oriented 3 in no distress, he is still complaining of cough and shortness of breath IV liters of oxygen via nasal cannula otherwise there is no complaints, there is no fever or chills no headache or dizziness no chest pain no palpitation no nausea or vomiting no abdominal pain no diarrhea no blood in the stools no burning with urination no frequency or urgency and no hematuria is sti ll has significant wheezing on chest exam On 07/24/2020 patient is alert and oriented 3. Patient currently on high flow increasing to 8 L. patient remains on IV steroids. Pulmonary services are fo llowing. Patient still have wheezing to auscultation. Patient denies chest pain. Patient denies nausea vomiting or diarrhea. Patient denies any urinary burning or frequency On 07/25/2020 patient was seen and examined on the medical floor he is alert and oriented 3 in no apparent distress he is still complaining of cough and shortness of breath he still has significant wheezing on exam otherwise no change in condition there is no fever or chills no headache or dizziness no chest pain no palpitation no nausea or vomiting no abdominal pain no diarrhea no blood in the stools no burning with urination no frequency or urgency and no hematuria On 07/26/2020 patient alert and oriented 3. Patient reports significant improvement and expresses that he is eager to go home. Discussed with pulmonary team cleared for discharge. Patient will be DC'd on prednisone tapering IV antibiotic along with Symbicort and rescue inhaler. Patient advised follow up with PCP and pulmonary services for further management. Patient advised again on the importance of smoking cessation. Patient denies chest pain or shortness breath. Patient denies nausea vomiting or diarrhea. Patient denies any urinary burning or frequency. Home oxygen test to be done to assess if patient needs home O2 Patient Condition at Discharge: Stable Plan - Discharge Summary Discharge Rx Participant: No New Discharge Prescriptions: New Cefdinir [Omnicef] 300 mg PO BID 7 Days #14 cap Budesonide-Formot 160-4.5 Mcg [Symbicort 160-4.5 Mcg Inhaler] 2 puff INHALATION BID 30 Days #1 inhaler Albuterol Inhaler [Ventolin Hfa Inhaler] 1 puff INHALATION QID PRN #1 inhaler PRN Reason: Shortness Of Breath Nicotine 21Mg/24Hr Patch [Habitrol] 1 patch TRANSDERM DAILY 30 Days #30 patch predniSONE 10 mg PO DIRECTED 12 Days #30 tab Continue Mirtazapine [Remeron] 15 mg PO HS lamoTRIgine [LaMICtal] 100 mg PO HS OLANZapine [ZyPREXA] 10 mg PO HS Buprenorphine HCl/Naloxone HCl [Buprenorphin-Naloxon 8-2 mg Sl] 1 tab SL BID Omeprazole 20 mg PO BID Insulin Glargine [Lantus] 60 unit SQ HS INSULIN ASPART (NovoLOG) [NovoLOG (formulary)] 21 unit SQ AC-TID Nystatin 100,000Unit/gm Cream [Mycostatin Cream] 1 applic TOPICAL DAILY PRN PRN Reason: Rash Discharge Medication List Mirtazapine [Remeron] 15 mg PO HS 11/23/16 [History] lamoTRIgine [LaMICtal] 100 mg PO HS 03/13/17 [History] OLANZapine [ZyPREXA] 10 mg PO HS 03/28/18 [History] Buprenorphine HCl/Naloxone HCl [Buprenorphin-Naloxon 8-2 mg Sl] 1 tab SL BID 01/27/20 [History] INSULIN ASPART (NovoLOG) [NovoLOG (formulary)] 21 unit SQ AC-TID 07/21/20 [History] Insulin Glargine [Lantus] 60 unit SQ HS 07/21/20 [History] Nystatin 100,000Unit/gm Cream [Mycostatin Cream] 1 applic TOPICAL DAILY PRN 07/21/20 [History] Omeprazole 20 mg PO BID 07/21/20 [History] Albuterol Inhaler [Ventolin Hfa Inhaler] 1 puff INHALATION QID PRN #1 inhaler 07/26/20 [Rx] Budesonide-Formot 160-4.5 Mcg [Symbicort 160-4.5 Mcg Inhaler] 2 puff INHALATION BID 30 Days #1 inhaler 07/26/20 [Rx] Cefdinir [Omnicef] 300 mg PO BID 7 Days #14 cap 07/26/20 [Rx] Nicotine 21Mg/24Hr Patch [Habitrol] 1 patch TRANSDERM DAILY 30 Days #30 patch 07/26/20 [Rx] predniSONE 10 mg PO DIRECTED 12 Days #30 tab 07/26/20 [Rx] Follow up Appointment(s)/Referral(s): [facility],Equipment [NON-STAFF] - ([facility] will deliver a portable oxygen tank to your bedside before discharge. Please call [facility] once home to arrange delivery of the oxygen concentrator) Marialuisa Espinoza MD [Primary Care Provider] - 1-2 days Rudy Guillermo DO [Doctor of Osteopathic Medicine] - 1 Week Activity/Diet/Wound Care/Special Instructions: Activity as tolerated Diet heart healthy Discharge Disposition: HOME SELF-CARE
[2020-07-26 11:29] LABS: Glucose,Whole Blood 146 mg/dL (75-99)
[2020-07-26 11:51] VITALS: BP 131/80; TEMP 97.4
[2020-07-26 12:34] VITALS: PULSE 87
== END 2020-07-26 13:26 | disposition home or self-care (01) | DRG 190 ==
LOC: EC 13:52 → 4SSUR 17:12 → 1SOBS 07-23 08:07 → 4SSUR 07-23 14:05
PROVIDERS: ADMIT Internal Medicine; ATTEND Internal Medicine
DX: J44.1 Chronic obstructive pulmonary disease with (acute) exacerbation (principal); J96.01 Acute respiratory failure with hypoxia; J98.11 Atelectasis; K86.3 Pseudocyst of pancreas; I10 Essential (primary) hypertension; J44.0 Chronic obstructive pulmonary disease with (acute) lower respiratory infection; F17.210 Nicotine dependence, cigarettes, uncomplicated; F41.9 Anxiety disorder, unspecified; K21.9 Gastro-esophageal reflux disease without esophagitis; G40.909 Epilepsy, unspecified, not intractable, without status epilepticus; E11.9 Type 2 diabetes mellitus without complications; J20.9 Acute bronchitis, unspecified; F31.9 Bipolar disorder, unspecified; Z86.19 Personal history of other infectious and parasitic diseases; Z81.8 Family history of other mental and behavioral disorders; Z82.49 Family history of ischemic heart disease and other diseases of the circulatory system; Z81.1 Family history of alcohol abuse and dependence; Z71.6 Tobacco abuse counseling; Z90.49 Acquired absence of other specified parts of digestive tract; R00.0 Tachycardia, unspecified; I25.2 Old myocardial infarction; Z20.822 Contact with and (suspected) exposure to COVID-19; Z88.5 Allergy status to narcotic agent; Z88.8 Allergy status to other drugs, medicaments and biological substances; Z90.3 Acquired absence of stomach [part of]; Z95.810 Presence of automatic (implantable) cardiac defibrillator; F11.11 Opioid abuse, in remission
CPT/HCPCS: 36415; 71046; 80053; 83605; 83735; 83880; 84145; 84484; 85025; 85610; 85730; 87070; 87205; 87635; 93005; 94640; 94760; 96374; 99285

== ENCOUNTER 2020-07-27 16:17 | Inpatient (IN) | payer MEDICARE ==
--- NOTE | 2020-07-27 16:48 | ED ---
General Adult HPI - General Chief complaint: Shortness of Breath Stated complaint: GENE Time Seen by Provider: 07/27/20 16:46 Source: patient Mode of arrival: ambulatory Limitations: no limitations - History of Present Illness Initial comments: Patient presents the ED with his cousin for evaluation. Patient was just discharged from the hospital yesterday after being admitted for COPD exacerbation. Patient was discharged home on a course of prednisone, as well as an antibiotic course. Patient states that he has been taking his prednisone and antibiotics as prescribed, including today. Patient states that his dyspnea has become worse today, and that is why he has returned to the ED. Patient also admits to having a nonproductive cough. Patient states that he has been giving himself albuterol neb treatments, and he states that he last gave himself one about 1.5 hours ago. Patient denies having any pain, fever or chills, headache, focal neuro deficit, chest pain, hemoptysis, palpitations, dizziness, abdominal pain, nausea/vomiting/diarrhea, bloody or melanotic stool, dysuria or urinary symptoms, decreased urine output, leg or calf swelling or pain, or any other symptoms or complaints. - Related Data Home Medications Medication Instructions Recorded Confirmed Mirtazapine [Remeron] 15 mg PO HS 11/23/16 07/27/20 lamoTRIgine [LaMICtal] 100 mg PO HS 03/13/17 07/27/20 OLANZapine [ZyPREXA] 10 mg PO HS 03/28/18 07/27/20 Buprenorphine HCl/Naloxone HCl 1 tab SL BID 01/27/20 07/27/20 [Buprenorphin-Naloxon 8-2 mg Sl] INSULIN ASPART (NovoLOG) [NovoLOG 21 unit SQ AC-TID 07/21/20 07/27/20 (formulary)] Insulin Glargine [Lantus] 60 unit SQ HS 07/21/20 07/27/20 Nystatin 100,000Unit/gm Cream 1 applic TOPICAL DAILY PRN 07/21/20 07/27/20 [Mycostatin Cream] Omeprazole 20 mg PO BID 07/21/20 07/27/20 Albuterol Inhaler [Ventolin Hfa 1 puff INHALATION RT-QID PRN 07/27/20 07/27/20 Inhaler] Budesonide-Formot 160-4.5 Mcg 2 puff INHALATION RT-BID 07/27/20 07/27/20 [Symbicort 160-4.5 Mcg Inhaler] predniSONE See Taper PO DIRECTED 07/27/20 07/27/20 Previous Rx's Medication Instructions Recorded Cefdinir [Omnicef] 300 mg PO BID 7 Days #14 cap 07/26/20 Nicotine 21Mg/24Hr Patch [Habitrol] 1 patch TRANSDERM DAILY 30 Days 07/26/20 #30 patch Allergies Allergy/AdvReac Type Severity Reaction Status Date / Time codeine Allergy Swelling Verified 07/27/20 19:42 furosemide [From Lasix] Allergy Rash/Hives Verified 07/27/20 19:42 haloperidol [From Haldol] Allergy Unknown Verified 07/27/20 19:42 prochlorperazine Allergy Swelling Verified 07/27/20 19:42 lactose AdvReac Diarrhea Verified 07/27/20 19:42 Review of Systems ROS Statement: Those systems with pertinent positive or pertinent negative responses have been documented in the HPI. ROS Other: All systems not noted in ROS Statement are negative. 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 with surgery/difficulty with incision healing/past cellulitis abdomin, IDDM type II, bronchitis, R lung spontaneous pneumo with surgery, last seizure 2011, hepatitis C with interferon over 6 yrs ago, past IV drug abuse-no drugs for over one year except for one slip/on suboxone, DDD, occasional low back pain, History of Any Multi-Drug Resistant Organisms: None Reported Past Surgical History: Appendectomy, Cholecystectomy Additional Past Surgical History / Comment(s): 2018 lap/laparotomy/partial omenectomy/cystogastrectomy/lysis of adhesions, 2019 open incision hernia repair with mesh-difficulty with incision healing since, EGD, colonoscopy, R lung thorascopy/decortication, bilateral eye RK for vision correction. Past Anesthesia/Blood Transfusion Reactions: No Reported Reaction Past Psychological History: Anxiety, Bipolar, Depression Smoking Status: Current every day smoker Past Alcohol Use History: None Reported Past Drug Use History: None Reported - Past Family History Brother(s) Additional Family Medical History / Comment(s): Chronic alcoholism in 2 brothers Sister(s) Additional Family Medical History / Comment(s): Chronic alcoholism Daughter(s) Family Medical History: No Reported History Additional Family Medical History / Comment(s): One daughter healthy Son(s) Family Medical History: No Reported History Additional Family Medical History / Comment(s): One son healthy Father History Unknown: Yes Family Medical History: AICD/Pacemaker, Myocardial Infarction ([place]), Renal Disease Additional Family Medical History / Comment(s): Schizophrenia. Per patient, his father at the age of 59 from renal failure. Mother History Unknown: Yes Family Medical History: Hypertension Additional Family Medical History / Comment(s): HPV General Exam Limitations: no limitations General appearance: alert, in no apparent distress Head exam: Present: atraumatic, normocephalic Eye exam: Present: normal appearance, EOMI ENT exam: Present: mucous membranes moist Neck exam: Present: other (Trachea is in midline) Respiratory exam: Present: wheezes, other (Equal breath sounds bilaterally). Absent: respiratory distress, rales, rhonchi, stridor Cardiovascular Exam: Present: regular rate, normal rhythm, normal heart sounds, other (Normal radial pulses bilaterally) GI/Abdominal exam: Present: soft. Absent: distended, tenderness, guarding Extremities exam: Present: other (Negative Homans sign bilaterally). Absent: tenderness, pedal edema, calf tenderness Neurological exam: Present: alert, oriented X3. Absent: motor sensory deficit Psychiatric exam: Present: normal affect, normal mood Skin exam: Present: warm, dry, intact, normal color Course Vital Signs 07/27/20 07/27/20 07/27/20 16:26 16:55 17:29 Temperature 98.8 F Pulse Rate 87 92 88 Respiratory 24 22 22 Rate Blood Pressure 160/81 142/72 141/84 O2 Sat by Pulse 96 95 98 Oximetry 07/27/20 07/27/20 07/27/20 18:00 19:09 19:12 Temperature Pulse Rate 86 86 78 Respiratory 22 20 Rate Blood Pressure 143/77 138/78 O2 Sat by Pulse 96 95 Oximetry 07/27/20 19:25 Temperature Pulse Rate 78 Respiratory Rate Blood Pressure O2 Sat by Pulse Oximetry - Reevaluation(s) Reevaluation #1: 07/27/20 20:07 Case, H&P, test results and ED/home management were discussed with Dr. Page. He accepts hospital admission. He has no further recommendations at this time. EKG Findings - EKG Comments: EKG Findings:: Normal sinus rhythm, ventricular rate of 81 bpm, normal NE and QRS intervals, normal QT interval, normal axis, no ST or T-wave abnormality Medical Decision Making - Medical Decision Making Patient's imaging findings are suggestive of pneumonia. Patient has a mild leukocytosis and an elevated lactate level of 2.8. I suspect that COPD is also contributing to the patient's dyspnea. Patient states that he took a dose of oral prednisone prior to coming to the ED today, so no steroids were given in the ED. Patient was treated for hospital-acquired pneumonia with IV cefepime and IV azithromycin, as well as IV fluids. Patient's Covid study is negative. Patient is not hypotensive and does not meet criteria for severe sepsis or septic shock. Patient is hyperglycemic but not acidotic. Dr. Page has accepted hospital admission. - Lab Data Result diagrams: 07/27/20 17:36 07/27/20 17:36 Lab Results 07/27/20 07/27/20 07/27/20 Range/Units 17:36 17:36 17:36 WBC 12.7 H (3.8-10.6) k/uL RBC 4.94 (4.30-5.90) m/uL Hgb 14.2 (13.0-17.5) gm/dL Hct 44.6 (39.0-53.0) % MCV 90.4 (80.0-100.0) fL MCH 28.8 (25.0-35.0) pg MCHC 31.9 (31.0-37.0) g/dL RDW 13.9 (11.5-15.5) % Plt Count 100 L (150-450) k/uL MPV 9.4 Neutrophils % 86 % Lymphocytes % 8 % Monocytes % 5 % Eosinophils % 1 % Basophils % 1 % Neutrophils # 10.9 H (1.3-7.7) k/uL Lymphocytes # 1.0 (1.0-4.8) k/uL Monocytes # 0.6 (0-1.0) k/uL Eosinophils # 0.1 (0-0.7) k/uL Basophils # 0.1 (0-0.2) k/uL Hypochromasia Slight PT 11.6 (9.0-12.0) sec INR 1.1 (<1.2) APTT 19.6 L (22.0-30.0) sec D-Dimer 0.88 H (<0.60) mg/L FEU Sodium 137 (137-145) mmol/L Potassium 4.2 (3.5-5.1) mmol/L Chloride 102 (98-107) mmol/L Carbon Dioxide 32 H (22-30) mmol/L Anion Gap 3 mmol/L BUN 16 (9-20) mg/dL Creatinine 0.63 L (0.66-1.25) mg/dL Est GFR (CKD-EPI)AfAm >90 (>60 ml/min/1.73 sqM) Est GFR (CKD-EPI)NonAf >90 (>60 ml/min/1.73 sqM) Glucose 398 H (74-99) mg/dL Plasma Lactic Acid Mynor (0.7-2.0) mmol/L Calcium 8.4 (8.4-10.2) mg/dL Total Bilirubin 0.3 (0.2-1.3) mg/dL AST 79 H (17-59) U/L ALT 55 H (4-49) U/L Alkaline Phosphatase 239 H (38-126) U/L Troponin I (0.000-0.034) ng/mL NT-Pro-B Natriuret Pep pg/mL Total Protein 6.0 L (6.3-8.2) g/dL Albumin 3.5 (3.5-5.0) g/dL Coronavirus (PCR) (Not Detectd) 07/27/20 07/27/20 07/27/20 Range/Units 17:36 17:36 17:36 WBC (3.8-10.6) k/uL RBC (4.30-5.90) m/uL Hgb (13.0-17.5) gm/dL Hct (39.0-53.0) % MCV (80.0-100.0) fL MCH (25.0-35.0) pg MCHC (31.0-37.0) g/dL RDW (11.5-15.5) % Plt Count (150-450) k/uL MPV Neutrophils % % Lymphocytes % % Monocytes % % Eosinophils % % Basophils % % Neutrophils # (1.3-7.7) k/uL Lymphocytes # (1.0-4.8) k/uL Monocytes # (0-1.0) k/uL Eosinophils # (0-0.7) k/uL Basophils # (0-0.2) k/uL Hypochromasia PT (9.0-12.0) sec INR (<1.2) APTT (22.0-30.0) sec D-Dimer (<0.60) mg/L FEU Sodium (137-145) mmol/L Potassium (3.5-5.1) mmol/L Chloride (98-107) mmol/L Carbon Dioxide (22-30) mmol/L Anion Gap mmol/L BUN (9-20) mg/dL Creatinine (0.66-1.25) mg/dL Est GFR (CKD-EPI)AfAm (>60 ml/min/1.73 sqM) Est GFR (CKD-EPI)NonAf (>60 ml/min/1.73 sqM) Glucose (74-99) mg/dL Plasma Lactic Acid Mynor 2.8 H* (0.7-2.0) mmol/L Calcium (8.4-10.2) mg/dL Total Bilirubin (0.2-1.3) mg/dL AST (17-59) U/L ALT (4-49) U/L Alkaline Phosphatase (38-126) U/L Troponin I <0.012 (0.000-0.034) ng/mL NT-Pro-B Natriuret Pep 65 pg/mL Total Protein (6.3-8.2) g/dL Albumin (3.5-5.0) g/dL Coronavirus (PCR) (Not Detectd) 07/27/20 Range/Units 17:36 WBC (3.8-10.6) k/uL RBC (4.30-5.90) m/uL Hgb (13.0-17.5) gm/dL Hct (39.0-53.0) % MCV (80.0-100.0) fL MCH (25.0-35.0) pg MCHC (31.0-37.0) g/dL RDW (11.5-15.5) % Plt Count (150-450) k/uL MPV Neutrophils % % Lymphocytes % % Monocytes % % Eosinophils % % Basophils % % Neutrophils # (1.3-7.7) k/uL Lymphocytes # (1.0-4.8) k/uL Monocytes # (0-1.0) k/uL Eosinophils # (0-0.7) k/uL Basophils # (0-0.2) k/uL Hypochromasia PT (9.0-12.0) sec INR (<1.2) APTT (22.0-30.0) sec D-Dimer (<0.60) mg/L FEU Sodium (137-145) mmol/L Potassium (3.5-5.1) mmol/L Chloride (98-107) mmol/L Carbon Dioxide (22-30) mmol/L Anion Gap mmol/L BUN (9-20) mg/dL Creatinine (0.66-1.25) mg/dL Est GFR (CKD-EPI)AfAm (>60 ml/min/1.73 sqM) Est GFR (CKD-EPI)NonAf (>60 ml/min/1.73 sqM) Glucose (74-99) mg/dL Plasma Lactic Acid Mynor (0.7-2.0) mmol/L Calcium (8.4-10.2) mg/dL Total Bilirubin (0.2-1.3) mg/dL AST (17-59) U/L ALT (4-49) U/L Alkaline Phosphatase (38-126) U/L Troponin I (0.000-0.034) ng/mL NT-Pro-B Natriuret Pep pg/mL Total Protein (6.3-8.2) g/dL Albumin (3.5-5.0) g/dL Coronavirus (PCR) Not Detected (Not Detectd) - Radiology Data Radiology results: report reviewed (Chest x-ray: Increased lingula infiltrate and atelectasis compared to recent exam, normal heart; CT angiography chest: No evidence of pulmonary embolism, there is lingula pneumonia and atelectasis, there is minimal right middle lobe pneumonia, no suspicious pulmonary mass) Disposition Clinical Impression: COPD exacerbation, Hyperglycemia, Pneumonia, Sepsis Disposition: ADMITTED IP TO THIS HOSP Condition: Stable Is patient prescribed a controlled substance at d/c from ED?: No Referrals: Marialuisa Espinoza MD [Primary Care Provider] - 1-2 days Time of Disposition: 20:10
[2020-07-27] MEDS ORDERED: IPRATROPIUM-ALBUTEROL 3 ML NEB INHALATION STA (16:55)
[2020-07-27 17:49] LABS: Basophils # (A) 0.1 k/uL (0-0.2); Basophils % (A) 1 %; Eosinophils # (A) 0.1 k/uL (0-0.7); Eosinophils % (A) 1 %; HCT 44.6 % (39.0-53.0); HGB 14.2 gm/dL (13.0-17.5); Hypochromasia Slight; Lymphocytes % (A) 8 %; MCH 28.8 pg (25.0-35.0); MCHC 31.9 g/dL (31.0-37.0); MCV 90.4 fL (80.0-100.0); Mean Platelet Volume 9.4; Monocytes # (A) 0.6 k/uL (0-1.0); Monocytes % (A) 5 %; Neutrophils # (A) 10.9 k/uL (1.3-7.7); Neutrophils % (A) 86 %; Platelet Count 100 k/uL (150-450); RBC 4.94 m/uL (4.30-5.90); RDW 13.9 % (11.5-15.5); WBC 12.7 k/uL (3.8-10.6)
[2020-07-27 18:03] LABS: ALT 55 U/L (4-49); AST 79 U/L (17-59); African American GFR (CKD) >90 (>60 ml/min/1.73 sqM); Albumin 3.5 g/dL (3.5-5.0); Alkaline Phosphatase 239 U/L (38-126); Anion Gap 3 mmol/L; Blood Urea Nitrogen 16 mg/dL (9-20); Calcium 8.4 mg/dL (8.4-10.2); Carbon Dioxide 32 mmol/L (22-30); Chloride 102 mmol/L (98-107); Glucose 398 mg/dL (74-99); Non-African American GFR(CKD) >90 (>60 ml/min/1.73 sqM); Potassium 4.2 mmol/L (3.5-5.1); Sodium 137 mmol/L (137-145); Total Bilirubin 0.3 mg/dL (0.2-1.3)
--- NOTE | 2020-07-27 18:12 | XR ---
EXAMINATION TYPE: XR chest 2V DATE OF EXAM: 07/27/2020 COMPARISON: 07/22/2020 HISTORY: Short of breath TECHNIQUE: 2 views FINDINGS: There is increased density in the lingula left upper lobe consistent with infiltrate and at electasis. There is no heart failure. Heart size is normal. There is no pleural effusion. IMPRESSION: Increased lingula infiltrate and atelectasis compared to recent exam. Normal heart.
[2020-07-27 18:14] LABS: INR 1.1 (<1.2); Prothrombin Time 11.6 sec (9.0-12.0)
[2020-07-27 18:24] LABS: D-Dimer 0.88 mg/L FEU (<0.60); Partial Thromboplastin Time 19.6 sec (22.0-30.0)
[2020-07-27] MEDS ORDERED: SODIUM CHLORIDE 0.9% 1,000 ML IV ONE (18:35)
--- NOTE | 2020-07-27 19:48 | CT ---
EXAMINATION TYPE: CT chest angio for PE DATE OF EXAM: 07/27/2020 COMPARISON: 08/13/2017 HISTORY: Dyspnea and elevated d-dimer. CT DLP: 626.5 mGycm Automated exposure control for dose reduction was used. CONTRAST: Performed with IV Contrast, patient injected with 78ml mL of Isovue 370. Images obtained from the thoracic inlet to the diaphragm with IV contrast. There are 3-D post process ed images. There is some linear infiltrate and atelectasis in the lingula left upper lobe. Heart is probably enl arged. There is no pericardial effusion. There is some minimal infiltrate right middle lobe with calc ification There is no mediastinal adenopathy. There are no hilar masses. I see no filling defect in the pulmonary arteries. Thoracic aorta is intact. There is no aneurysm or dissection. The thoracic spine shows no focal bony destructive process. There is T5-6 developmental n arrowing of the disc space. There is some mild biconcave change of the T4 vertebral body that could r elate to some osteomalacia. Spleen is moderately enlarged and measures 18 cm. IMPRESSION: No evidence of pulmonary embolism. There is lingula pneumonia and atelectasis. There is minimal right middle lobe pneumonia. No suspicious pulmonary mass. Moderately severe splenomegaly.
[2020-07-27] MEDS ORDERED: CEFEPIME 2 GM in SODIUM CHLORIDE 0.9% 100 ML IVPB STA (19:54)
[2020-07-27] MEDS ORDERED: AZITHROMYCIN 500 MG in SODIUM CHLORIDE 0.9% 250 ML IVPB STA (19:54)
[2020-07-27] MEDS ORDERED: NALOXONE 0.4 MG/ML 1 ML VIAL IV PRN (20:06)
[2020-07-27] MEDS: SODIUM CHLORIDE 0.9% 1,000 ML IV SCH (20:40)
[2020-07-27 21:24] LABS: Glucose,Whole Blood 182 mg/dL (75-99)
[2020-07-27] MEDS: OLANZapine 10 MG TAB PO SCH (21:47)
[2020-07-27] MEDS: INSULIN DETEMIR (LEVEMIR) 100 UNIT/ML SYR SQ SCH (21:48)
[2020-07-27] MEDS: lamoTRIgine 100 MG TAB PO SCH (21:48)
[2020-07-28] MEDS: IPRATROPIUM-ALBUTEROL 3 ML NEB INHALATION SCH ×6 (00:33→21:18)
[2020-07-28 08:04] LABS: Glucose,Whole Blood 125 mg/dL (75-99)
[2020-07-28] MEDS: INSULIN ASPART (NovoLOG) 100 UNIT/ML VIAL SQ SCH ×4 (09:06→22:32)
[2020-07-28] MEDS: SODIUM CHLORIDE 0.9% 1,000 ML IV SCH ×2 (09:14→20:21)
[2020-07-28 09:57] LABS: Basophils # (A) 0.01 X 10*3/uL (0.00-0.10); Basophils % (A) 0.1 %; Eosinophils # (A) 0.01 X 10*3/uL (0.04-0.35); Eosinophils % (A) 0.1 %; HCT 43.3 % (39.6-50.0); Lymphocytes # (A) 2.04 X 10*3/uL (0.90-5.00); Lymphocytes % (A) 17.2 %; MCV 93.1 fL (80.0-97.0); Monocytes # (A) 0.67 X 10*3/uL (0.20-1.00); Monocytes % (A) 5.7 %; Neutrophils # (A) 8.99 X 10*3/uL (1.80-7.70); Neutrophils % (A) 75.9 %; Platelet Count 101 X 10*3/uL (140-440); RBC 4.65 X 10*6/uL (4.40-5.60); RDW 14.7 % (11.5-14.5); WBC 11.84 X 10*3/uL (4.50-10.00)
[2020-07-28 10:23] LABS: African American GFR (CKD) 140.7 (60.0-200.0); Albumin 3.6 g/dL (3.80-4.90); Albumin/Globulin Ratio 1.89 (1.60-3.17); Anion Gap 2.7 mmol/L (4.00-12.00); BUN/Creat Ratio 21.67 Ratio (12.00-20.00); Calcium 8.3 mg/dL (8.7-10.3); Carbon Dioxide 33.3 mmol/L (21.6-31.8); Globulin 1.9 g/dL (1.6-3.3); Non-African American GFR(CKD) 121.4 (60.0-200.0); Total Bilirubin 0.3 mg/dL (0.2-1.2); Total Protein 5.5 g/dL (6.2-8.2)
[2020-07-28 12:45] LABS: Glucose,Whole Blood 64 mg/dL (75-99)
[2020-07-28 13:05] LABS: Glucose,Whole Blood 63 mg/dL (75-99)
--- NOTE | 2020-07-28 13:22 | CT ---
EXAMINATION TYPE: CT brain wo con DATE OF EXAM: 07/28/2020 COMPARISON: 02/02/2020 HISTORY: 45 year-old male mental status changes, Confusion TECHNIQUE: Examination was done in axial plane without intravenous contrast. Coronal and sagittal r econstructions performed. CT DLP: 1144.7 mGycm Automated exposure control for dose reduction was used. FINDINGS: There is no evidence of acute intracranial hemorrhage, acute ischemic changes, mass, mass-effect, or extra-axial fluid collection. There is no effacement of cerebral sulci or basal subarachnoid cister ns. There is no hydrocephalus. There is no midline shift. Kauffman-white matter distinction is preserv ed. Very mild bifrontal cortical volume loss. Slight leftward nasal septal deviation. Trace mucosal thickening ethmoid air cells. Mastoid air cells well pneumatized. The globes are intact. IMPRESSION: Similar mild bifrontal cortical volume loss. No acute intracranial abnormality seen.
[2020-07-28] MEDS ORDERED: NYSTATIN 100,000UNIT/GM CREAM 30 GM TUBE TOPICAL PRN (13:25)
[2020-07-28 14:00] LABS: Glucose,Whole Blood 109 mg/dL (75-99)
[2020-07-28 18:00] LABS: Glucose,Whole Blood 263 mg/dL (75-99)
[2020-07-28] MEDS ORDERED: NICOTINE 21MG/24HR PATCH TRANSDERM STA (18:08)
[2020-07-28] MEDS ORDERED: VANCOMYCIN IV PER PHARMACY 1 EACH MISC MISCELLANE PRN (19:14)
[2020-07-28] MEDS ORDERED: VANCOMYCIN 1,800 MG in SODIUM CHLORIDE 0.9% 250 ML IVPB ONE (19:14)
[2020-07-28] MEDS ORDERED: VANCOMYCIN 2,250 MG in SODIUM CHLORIDE 0.9% 500 ML 500 ML IVPB ONE (20:00)
[2020-07-28] MEDS: ENOXAPARIN 40 MG/0.4 ML SYRINGE SQ SCH (20:25)
[2020-07-28] MEDS: PANTOPRAZOLE 40 MG TABLET PO SCH (20:26)
[2020-07-28] MEDS: INSULIN DETEMIR (LEVEMIR) 100 UNIT/ML SYR SQ SCH (20:26)
[2020-07-28] MEDS: OLANZapine 10 MG TAB PO SCH (20:27)
[2020-07-28] MEDS: lamoTRIgine 100 MG TAB PO SCH (20:27)
[2020-07-28] MEDS: MIRTAZAPINE 15 MG TAB PO SCH (20:27)
[2020-07-28] MEDS: PIPERACILLIN-TAZOBACTAM 3.375 GM in SODIUM CHLORIDE 0.9% 100 ML IVPB SCH (20:36)
[2020-07-28] MEDS: SUBOXONE SUBLINGUAL SCH (20:36)
[2020-07-28 21:06] LABS: Glucose,Whole Blood 138 mg/dL (75-99)
[2020-07-28] MEDS: SYMBICORT 160-4.5 MCG INHALER INHALATION SCH (21:18)
--- NOTE | 2020-07-28 22:31 | HP ---
HISTORY AND PHYSICAL I am covering for Dr. Espinoza. DATE OF SERVICE: 07/28/2020. CHIEF COMPLAINT: Shortness of breath. HISTORY OF PRESENT ILLNESS: This 45-year-old gentleman with past medical history of asthma, COPD, diabetes, GERD, seizure disorder, history of chronic pancreatitis, appendectomy, cholecystectomy, anxiety, bipolar depression, followed by Dr. Espinoza in the outpatient setting was recently admitted to [facility] with COPD acute exacerbation, acute hypoxic respiratory failure. Patient improved significantly. The patient was subsequently discharged. After going home, the patient reports that the patient had increased shortness of breath and patient also mildly confused and shortness of breath is worse and the patient came back to the emergency room and the patient also had nonproductive cough and the patient was admitted for evaluation and treatment. Evaluation in the ER showed elevated blood glucose, elevated white count, thrombocytopenia, elevated D- dimer. The patient also had a chest CTA in the ER which I reviewed personally and showed no evidence of any pulmonary embolism and right lower lobe pneumonia suspected. There is no history of any fever, rigors or chills. No history of headache, loss of consciousness, seizures at this time. PAST MEDICAL HISTORY: Past medical history of asthma, COPD, history of diabetes, GERD, DJD, seizure disorder, chronic pancreatitis, anxiety, bipolar depression. MEDICATIONS: Home medications are prednisone, Habitrol 14, Lamictal, omeprazole, Zyprexa, Remeron, Ceftin. ALLERGIES: CODEINE, FUROSEMIDE, lactose. FAMILY HISTORY: History of AICD, myocardial infarction, renal disease in the family. SOCIAL HISTORY: History of smoking, continued ongoing. REVIEW OF SYSTEMS: ENT: No diminished vision. No diminished hearing. Cardiovascular as mentioned earlier. Respiratory as mentioned earlier. GI no nausea or vomiting. : No dysuria. Nervous system: No numbness, weakness. Allergy/Immunology: As mentioned earlier. Hematology/Oncology: No history of anemia. ENDOCRINE: As mentioned earlier. CONSTITUTIONAL: As mentioned earlier. DERMATOLOGY: Negative. RHEUMATOLOGY: Negative. PSYCHIATRIC: As mentioned earlier. PHYSICAL EXAMINATION: Alert and oriented x3. Pulse is 88, blood pressure 117/70, respirations 16, temperature 97.2, pulse ox 93% on room air. HEENT: Conjunctivae normal. NECK: No JVD. Cardiovascular: S1, S2 muffled. RESPIRATION: Breath sounds diminished in bases. A few scattered rhonchi and crackles. ABDOMEN: Soft, nontender. LEGS are no edema. No swelling. NERVOUS SYSTEM: Higher functions as mentioned earlier. Moves all 4 limbs. No focal motor or sensory deficits. LYMPHATICS: No lymph nodes palpable in the neck, axillae or groin. SKIN: No ulcer, no rash and no bleeding. JOINTS: No active deforming arthropathy. LABS: WBC 11.4, platelets 100. D-dimer is 0.88. ASSESSMENT: 1. Chronic obstructive pulmonary disease acute exacerbation with acute right lower lobe pneumonia possibly gram-negative with failure of outpatient treatment. 2. Increased WBC. 3. Thrombocytopenia. 4. Change in mental status acute metabolic encephalopathy multifactorial. No acute abnormalities detected on CT scan. 5. Elevated D-dimer without any evidence of pulmonary embolism. 6. Increased CO2. 7. Diabetes mellitus type 2 with hyperglycemia, uncontrolled blood sugars. 8. Elevated AST/ALT with possibly mild hepatitis. 9. Obesity with body mass index of 38. 10.History of asthma, chronic obstructive pulmonary disease. 11.History of gastroesophageal reflux disease. 12.History of degenerative joint disease. 13.History of seizure disorder. 14.History of chronic pancreatitis and pancreatic pseudocyst necrotizing pancreatitis with surgery with difficulty incisional healing. 15.History of hepatitis C status post interferon. 16.Remote history of IV drug abuse. 17.Appendectomy. 18.Cholecystectomy. 19.History of omentectomy and gastrectomy. 20.History of anxiety, bipolar, depression. 21.History of nicotine dependence, continued ongoing. 22.FULL CODE. RECOMMENDATIONS AND DISCUSSION: In this 45-year-old gentleman who presented with multiple complex medical issues, we will monitor the patient closely, continue the current medications, management and symptomatic treatment. We will initiate intensive bronchodilator treatment. Otherwise, I would recommend pulmonary consultation. Empiric antibiotics. Guarded prognosis because of multiple complex medical issues. Further recommendations to follow. The patient is started on cefepime. I will recommend combination Zosyn, Vanco and obtain the cultures to rule out the possibility of a hospital acquired pneumonia. Once again, the prognosis guarded and further recommendations to follow. A CT of the brain was also recommended because of change in mental status. Prognosis guarded. Further recommendations to follow. MMODL / IJN: [id number] / [facility]
[2020-07-29] MEDS: IPRATROPIUM-ALBUTEROL 3 ML NEB INHALATION SCH ×7 (00:13→23:44)
[2020-07-29 01:19] LABS: Appearance,Urine Clear (Clear); Bilirubin,Urine Negative (Negative); Blood,Urine Negative (Negative); Color,Urine Light Yellow; Glucose,Urine (UA) Negative (Negative); Ketones,Urine Negative (Negative); Leukocyte Esterase,Urine Negative (Negative); Nitrite,Urine Negative (Negative); Protein,Urine Negative (Negative); Specific Gravity,Urine 1.007 (1.001-1.035); Urobilinogen,Urine <2.0 mg/dL (<2.0)
[2020-07-29] MEDS: PIPERACILLIN-TAZOBACTAM 3.375 GM in SODIUM CHLORIDE 0.9% 100 ML IVPB SCH ×3 (03:53→21:06)
[2020-07-29] MEDS: VANCOMYCIN 2,000 MG in SODIUM CHLORIDE 0.9% 500 ML 500 ML IVPB SCH ×3 (03:53→22:49)
[2020-07-29 06:51] LABS: Glucose,Whole Blood 69 mg/dL (75-99)
[2020-07-29 07:16] LABS: Glucose,Whole Blood 85 mg/dL (75-99)
[2020-07-29] MEDS: INSULIN ASPART (NovoLOG) 100 UNIT/ML VIAL SQ SCH ×4 (07:22→21:05)
[2020-07-29] MEDS: ENOXAPARIN 40 MG/0.4 ML SYRINGE SQ SCH (07:32)
[2020-07-29] MEDS: NICOTINE 21MG/24HR PATCH TRANSDERM SCH (07:32)
[2020-07-29] MEDS: PANTOPRAZOLE 40 MG TABLET PO SCH ×2 (07:32→21:04)
[2020-07-29] MEDS: SYMBICORT 160-4.5 MCG INHALER INHALATION SCH ×2 (08:40→20:05)
[2020-07-29 09:34] LABS: Basophils # (A) 0.03 X 10*3/uL (0.00-0.10); Basophils % (A) 0.2 %; Eosinophils # (A) 0.14 X 10*3/uL (0.04-0.35); Eosinophils % (A) 1.1 %; HCT 44.7 % (39.6-50.0); HGB 13.5 g/dL (13.0-17.0); Lymphocytes # (A) 2.75 X 10*3/uL (0.90-5.00); Lymphocytes % (A) 21.5 %; MCH 27.6 pg (27.0-32.0); MCHC 30.2 g/dL (32.0-37.0); MCV 91.4 fL (80.0-97.0); Mean Platelet Volume 12.9 fL (9.5-12.2); Monocytes # (A) 0.75 X 10*3/uL (0.20-1.00); Monocytes % (A) 5.9 %; Neutrophils % (A) 70.4 %; Platelet Count 91 X 10*3/uL (140-440); RBC 4.89 X 10*6/uL (4.40-5.60); RDW 14.7 % (11.5-14.5); WBC 12.79 X 10*3/uL (4.50-10.00)
[2020-07-29 11:18] LABS: Glucose,Whole Blood 144 mg/dL (75-99)
[2020-07-29 11:26] LABS: African American GFR (CKD) 140.7 (60.0-200.0); Albumin 3.5 g/dL (3.80-4.90); Albumin/Globulin Ratio 1.84 (1.60-3.17); Anion Gap 4.2 mmol/L (4.00-12.00); BUN/Creat Ratio 18.33 Ratio (12.00-20.00); Calcium 8.1 mg/dL (8.7-10.3); Carbon Dioxide 31.8 mmol/L (21.6-31.8); Globulin 1.9 g/dL (1.6-3.3); Non-African American GFR(CKD) 121.4 (60.0-200.0); Potassium 3.6 mmol/L (3.5-5.5); Total Bilirubin 0.6 mg/dL (0.2-1.2); Total Protein 5.4 g/dL (6.2-8.2)
[2020-07-29] MEDS: SUBOXONE SUBLINGUAL SCH ×2 (11:46→21:05)
[2020-07-29] MEDS: methylPREDNISolone SOD SUCCI 125 MG/2 ML VIAL IV SCH ×3 (11:54→23:30)
--- NOTE | 2020-07-29 13:58 | P.CNPUL ---
History of Present Illness Consult date: 07/29/20 Requesting physician: Starla Page Reason for consult: COPD, pneumonia Chief complaint: Shortness of breath cough and wheezing History of present illness: This is a 45-year-old white male, with history of tobacco dependence syndrome, COPD, type 2 diabetes, seizure disorder, chronic pancreatitis, bipolar disorder, previous partial gastrectomy, history of pancreatic pseudocyst and lysis of adhesions in November of 2017, history of hepatitis C, IV drug abuse, crack cocaine abuse, patient was seen by us on consultation last on 07/22/2020. And we saw mostly for symptoms of acute exacerbation of COPD. Patient was treated with antibiotics, bronchodilators, steroids, and we have eventually cleared him for discharge. Patient was readmitted yesterday with similar symptoms and fortunately he is still smoking. Patient is complaining of cough wheezing shortness of breath, cough is productive with greenish phlegm. Denies any fever no chills no hemoptysis no chest pain. CBC on admission showed mild leukocytosis with WBC count of 12.8, low platelets of 91,000, relatively normal electrolytes, and a CT angiogram showing no evidence of pulmonary embolism, but there is evidence of questionable lingular pneumonia or atelectasis. And minimal right middle lobe pneumonic process. Considering the patient was quite short of breath, patient was admitted and this consult was initiated. Patient i s now on antibiotics, bronchodilators, and I added Solu-Medrol. And he is also on oxygen at 3 L nasal cannula, and his O2 saturation is 97%. After reviewing the chart, patient was actually discharged home on 07/26 and he was readmitted on 07/28. Patient clearly admitted to me that he was still smoking after he was discharged home. Review of Systems CONSTITUTIONAL: [Negative.] NEUROLOGIC: [ Negative.] HEENT: [ Negative.] CARDIAC: [Negative.] PULMONARY: Shortness of breath cough and wheezing. GI: [Negative.] : [Negative.] RHEUMATOLOGIC: [ Negative.] IMMUNOLOGIC: [ Negative.] ENDOCRINE: [Negative. ] DERMATOLOGIC: [Negative.] Past Medical History Past Medical History: Asthma, COPD, Diabetes Mellitus, GERD/Reflux, Mu sculoskeletal Disorder, Seizure Disorder Additional Past Medical History / Comment(s): 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 with surgery/difficulty with incision healing/past cellulitis abdomin, IDDM type II, bronchitis, R lung spontaneous pneumo with surgery, last seizure 2011, hepatitis C with interferon over 6 yrs ago, past IV drug abuse-no drugs for over one year except for one slip/on suboxone, DDD, occasional low back pain, History of Any Multi-Drug Resistant Organisms: None Reported Past Surgical History: Appendectomy, Cholecystectomy Additional Past Surgical History / Comment(s): 2018 lap/laparotomy/partial omenectomy/cystogastrectomy/lysis of adhesions, 2019 open incision hernia repair with mesh-difficulty with incision healing since, EGD, colonoscopy, R lung thorascopy/decortication, bilateral eye RK for vision correction. Past Anesthesia/Blood Transfusion Reactions: No Reported Reaction Past Psychological History: Anxiety, Bipolar, Depression Additional Psychological History / Comment(s): Pt resides alone in a home. Pt has a nebulizer and a glucometer. He drives occasionally. Smoking Status: Current every day smoker Past Alcohol Use History: None Reported Additional Past Alcohol Use History / Comment(s): Pt started smoking in 1991 and is a 1ppd smoker. Past Drug Use History: None Reported Additional Drug Use History / Comment(s): Pt states he has used crack/cocaine/heroin/mushrooms/marijuana/ecstasy/amphetamines and benzos in the past. He states he has not used any other drug for over one year with the exception of one slip. - Past Family History Brother(s) Additional Family Medical History / Comment(s): Chronic alcoholism in 2 brothers Sister(s) Additional Family Medical History / Comment(s): Chronic alcoholism Daughter(s) Family Medical History: No Reported History Additional Family Medical History / Comment(s): One daughter healthy Son(s) Family Medical History: No Reported History Additional Family Medical History / Comment(s): One son healthy Father History Unknown: Yes Family Medical History: AICD/Pacemaker, Myocardial Infarction (NM), Renal Disease Additional Family Medical History / Comment(s): Schizophrenia. Per patient, his father at the age of 59 from renal failure. Mother History Unknown: Yes Family Medical History: Hypertension Additional Family Medical History / Comment(s): HPV Medications and Allergies Home Medications Medication Instructions Recorded Confirmed Type Mirtazapine [Remeron] 15 mg PO HS 11/23/16 07/27/20 History lamoTRIgine [LaMICtal] 100 mg PO HS 03/13/17 07/27/20 History OLANZapine [ZyPREXA] 10 mg PO HS 03/28/18 07/27/20 History Buprenorphine HCl/Naloxone HCl 1 tab SL BID 01/27/20 07/27/20 History [Buprenorphin-Naloxon 8-2 mg Sl] INSULIN ASPART (NovoLOG) [NovoLOG 21 unit SQ AC-TID 07/21/20 07/27/20 History (formulary)] Insulin Glargine [Lantus] 60 unit SQ HS 07/21/20 07/27/20 History Nystatin 100,000Unit/gm Cream 1 applic TOPICAL DAILY PRN 07/21/20 07/27/20 History [Mycostatin Cream] Omeprazole 20 mg PO BID 07/21/20 07/27/20 History Cefdinir [Omnicef] 300 mg PO BID 7 Days #14 cap 07/26/20 07/27/20 Rx Nicotine 21Mg/24Hr Patch [Habitrol] 1 patch TRANSDERM DAILY 30 Days 07/26/20 07/27/20 Rx #30 patch Albuterol Inhaler [Ventolin Hfa 1 puff INHALATION RT-QID PRN 07/27/20 07/27/20 History Inhaler] Budesonide-Formot 160-4.5 Mcg 2 puff INHALATION RT-BID 07/27/20 07/27/20 History [Symbicort 160-4.5 Mcg Inhaler] predniSONE See Taper PO DIRECTED 07/27/20 07/27/20 History Allergies Allergy/AdvReac Type Severity Reaction Status Date / Time codeine Allergy Swelling Verified 07/27/20 19:42 furosemide [From Lasix] Allergy Rash/Hives Verified 07/27/20 19:42 haloperidol [From Haldol] Allergy Unknown Verified 07/27/20 19:42 prochlorperazine Allergy Swelling Verified 07/27/20 19:42 lactose AdvReac Diarrhea Verified 07/27/20 19:42 Physical Exam Vitals: Vital Signs Temp Pulse Pulse Resp BP Pulse Ox 07/29/20 12:15 88 07/29/20 12:03 84 07/29/20 08:55 98.1 F 71 18 101/65 97 07/29/20 08:48 80 07/29/20 08:41 84 07/29/20 08:00 71 18 07/29/20 02:00 97.5 F L 91 20 124/80 94 L 07/29/20 01:39 18 07/28/20 22:01 98.7 F 79 18 118/78 95 07/28/20 21:31 80 07/28/20 21:20 80 07/28/20 20:00 16 07/28/20 16:32 80 07/28/20 16:17 80 07/28/20 15:00 97.3 F L 88 16 117/70 97 07/28/20 14:00 16 Intake and Output 07/28/20 07/29/20 07/29/20 22:59 06:59 14:59 Intake Total 1050 Output Total 200 Balance 850 Intake: IV 600 Sodium Chloride 0.9% 1, 600 000 ml @ 50 mls/hr IV . Q20H VINAYAK Rx#:[id number] Oral 450 Output: Urine 200 Other: Voiding Method Urinal Urinal # Voids 1 2 GENERAL EXAM: Revealed 45-year-old white male, obese, on 3 L nasal cannula, in no distress.. HEAD: Normocephalic. Atraumatic. EENT: PERRLA, EOMI, nonicteric, no neck masses, moist mucous membranes. CHEST: No chest wall deformity. Symmetrical chest expansion. LUNGS: Diffuse rhonchi and wheezes noted bilaterally. CVS: S1 and S2 normal with no audible murmur, regular rhythm. ABDOMEN: No hepatosplenomegaly, normal bowel sounds, no guarding or rigidity. Musculoskeletal: No deformities or limitation in range of motion. SKIN: No rashes CENTRAL NERVOUS SYSTEM: Alert and oriented 3 no gross focal deficit. Psychiatric: Normal mood affect and normal mental status examination. EXTREMITIES: No clubbing edema or cyanosis. Good pulses bilaterally. Results - Laboratory Findings CBC and BMP: 07/29/20 05:25 07/29/20 05:25 PT/INR, D-dimer PT 11.6 sec (9.0-12.0) 07/27/20 17:36 INR 1.1 (<1.2) 07/27/20 17:36 D-Dimer 0.88 mg/L FEU (<0.60) H 07/27/20 17:36 Abnormal lab findings: Abnormal Labs 07/27/20 07/27/2007/27/21 17:36 17:36 17:36 WBC 12.7 H MCHC RDW Plt Count 100 L Plt Count Comment MPV Absolute Nucleated RBC Immature Gran # Neutrophils # 10.9 H Eosinophils # NRBC/100 WBC Diff APTT 19.6 L D-Dimer 0.88 H Carbon Dioxide 32 H Anion Gap Creatinine 0.63 L BUN/Creatinine Ratio Glucose 398 H POC Glucose (mg/dL) Plasma Lactic Acid Mynor Calcium AST 79 H ALT 55 H Alkaline Phosphatase 239 H Ammonia Total Protein 6.0 L Albumin 07/27/20 07/27/20 07/28/20 17:36 21:23 02:52 WBC 11.84 H MCHC 30.0 L RDW 14.7 H Plt Count 101 L Plt Count Comment DECREASED A MPV 13.0 H Absolute Nucleated RBC Immature Gran # 0.12 H Neutrophils # 8.99 H Eosinophils # 0.01 L NRBC/100 WBC Diff APTT D-Dimer Carbon Dioxide Anion Gap Creatinine BUN/Creatinine Ratio Glucose POC Glucose (mg/dL) 182 H Plasma Lactic Acid Mynor 2.8 H* Calcium AST ALT Alkaline Phosphatase Ammonia Total Protein Albumin 07/28/20 07/28/20 07/28/20 02:52 08:02 12:43 WBC MCHC RDW Plt Count Plt Count Comment MPV Absolute Nucleated RBC Immature Gran # Neutrophils # Eosinophils # NRBC/100 WBC Diff APTT D-Dimer Carbon Dioxide 33.3 H Anion Gap 2.70 L Creatinine BUN/Creatinine Ratio 21.67 H Glucose 121 H POC Glucose (mg/dL) 125 H 64 L Plasma Lactic Acid Mynor Calcium 8.3 L AST 58 H ALT 63 H Alkaline Phosphatase 157 H Ammonia Total Protein 5.5 L Albumin 3.60 L 07/28/20 07/28/20 07/28/20 13:02 13:59 17:57 WBC MCHC RDW Plt Count Plt Count Comment MPV Absolute Nucleated RBC Immature Gran # Neutrophils # Eosinophils # NRBC/100 WBC Diff APTT D-Dimer Carbon Dioxide Anion Gap Creatinine BUN/Creatinine Ratio Glucose POC Glucose (mg/dL) 63 L 109 H 263 H Plasma Lactic Acid Mynor Calcium AST ALT Alkaline Phosphatase Ammonia Total Protein Albumin 07/28/20 07/29/20 07/29/20 21:05 05:25 05:25 WBC 12.79 H MCHC 30.2 L RDW 14.7 H Plt Count 91 L Plt Count Comment DECREASED A MPV 12.9 H Absolute Nucleated RBC 0.04 H Immature Gran # 0.12 H Neutrophils # 9.00 H Eosinophils # NRBC/100 WBC Diff 0.3 H APTT D-Dimer Carbon Dioxide Anion Gap Creatinine BUN/Creatinine Ratio Glucose POC Glucose (mg/dL) 138 H Plasma Lactic Acid Mynor Calcium 8.1 L AST 70 H ALT 71 H Alkaline Phosphatase 165 H Ammonia Total Protein 5.4 L Albumin 3.50 L 07/29/20 07/29/20 07/29/20 06:50 11:16 12:44 WBC MCHC RDW Plt Count Plt Count Comment MPV Absolute Nucleated RBC Immature Gran # Neutrophils # Eosinophils # NRBC/100 WBC Diff APTT D-Dimer Carbon Dioxide Anion Gap Creatinine BUN/Creatinine Ratio Glucose POC Glucose (mg/dL) 69 L 144 H Plasma Lactic Acid Mynor Calcium AST ALT Alkaline Phosphatase Ammonia 47 H Total Protein Albumin - Diagnostic Findings CT scan - chest: image reviewed (Suspicious for lingular and right middle lobe infiltrate or atelectasis.) Assessment and Plan Assessment: Impression: Acute exacerbation of COPD. Acute community-acquired pneumonia. Leukocytosis and thrombocytopenia secondary to above. Type 2 diabetes. Chronically elevated liver enzymes. History of seizure disorder. History of bipolar disorder. History of hepatitis C. Remote history of IV drug abuse. History of omentectomy and gastrectomy. Chronic nicotine dependence and tobacco dependence syndrome. Recommendation: Continue present course of bronchodilators including DuoNeb and Symbicort. Continue methylprednisolone which I ordered today. Continue nicotine patches. Continue insulin and monitor sugars closely. Continue Zosyn. And continue vancomycin for now. We will adjust based on sputum cultures. Counseled regarding smoking cessation. We'll continue to follow. GI and DVT prophylaxis. We will order sputum cultures. Time with Patient: Greater than 30
[2020-07-29] MEDS: SODIUM CHLORIDE 0.9% 1,000 ML IV SCH (14:06)
--- NOTE | 2020-07-29 16:08 | PN ---
PROGRESS NOTE I am covering for Dr. Espinoza. DATE OF SERVICE: 07/29/2020 This 45-year-old gentleman who was admitted with COPD, acute exacerbation, with right lower pneumonia, possibly Gram-negative, possibly hospital-acquired pneumonia, with failure of outpatient management, was started on broad-spectrum IV antibiotics. Cultures are negative so far. The white count is elevated at 12.79. The D-dimer is elevated at 0.888. Chest CTA was done which showed no evidence of pulmonary embolism, but it did show significant lesions in the right lower part of the chest. Past medical history reviewed. REVIEW OF SYSTEMS: CARDIOVASCULAR SYSTEM: No angina, palpitations. RESPIRATORY SYSTEM: As mentioned earlier. GI: As mentioned earlier. : No dysuria or retention. NERVOUS SYSTEM: No numbness, weakness. CURRENT MEDICATIONS: Reviewed. They include DuoNeb, Symbicort, NovoLog, Levemir, Lamictal, Solu-Medrol, Remeron, Narcan, Habitrol, Suboxone, Protonix, Zosyn. Doses are reviewed. PHYSICAL EXAMINATION: Patient alert and oriented x3. Pulse is 84 blood pressure 101/65, respiration 18, temperature 98.1, pulse ox 97% on 3 L. HEENT: Conjunctivae normal. NECK: No jugular venous distention. CARDIOVASCULAR SYSTEM: S1, S2 muffled. RESPIRATORY SYSTEM: Breath sounds diminished at the bases. Bilateral scattered rhonchi and crackles. ABDOMEN: Soft, non-tender. LEGS: No edema. No swelling. NERVOUS SYSTEM: No focal deficit. LABS: WBC 12.7. Other labs are noted. AST, ALT noted. ASSESSMENT: 1. Chronic obstructive pulmonary disease, acute exacerbation, with acute right lower lobe pneumonia, possibly Gram-negative, with failure of outpatient treatment, possibly hospital-acquired pneumonia. 2. Change in mental status, possible acute metabolic encephalopathy with possible sepsis, present on admission. 3. Increased white count. 4. Thrombocytopenia. 5. Change in mental status, acute metabolic encephalopathy, multifactorial. No acute abnormalities detected on the CT scan of the brain. 6. Elevated D-dimer without any evidence of pulmonary embolism. 7. Increased carbon dioxide. 8. Diabetes mellitus, type 2, with hyperglycemia, uncontrolled blood sugars. 9. Elevated AST and ALT with possible mild hepatitis. 10.Obesity with body mass index of 38. 11.History of asthma, chronic obstructive pulmonary disease. 12.History of gastroesophageal reflux disease. 13.History of degenerative joint disease. 14.History of seizure disorder. 15.History of chronic pancreatitis and pancreatic pseudocyst and necrotizing pancreatitis with surgery with difficulty in incision healing. 16.History of hepatitis C, status post interferon. 17.Remote history of IV drug abuse. 18.Appendectomy. 19.Cholecystectomy. 20.History of omentectomy and gastrectomy. 21.History of anxiety, bipolar, depression. 22.History of nicotine dependence, continued, ongoing. 23.FULL CODE. RECOMMENDATIONS AND DISCUSSION: I recommend to continue current medications, continue with the monitoring, symptomatic treatment. Continue with the bronchodilators. Continue with antibiotics. Follow the cultures. Pulmonary has added steroids. I recommend monitoring the blood sugars closely and insulin scale, also. The prognosis is guarded because of multiple complex medical issues. Further recommendations to follow. RANDY / LISA: [id number] /
[2020-07-29 17:25] LABS: Glucose,Whole Blood 347 mg/dL (75-99)
[2020-07-29 20:19] LABS: Glucose,Whole Blood 284 mg/dL (75-99)
[2020-07-29] MEDS: MIRTAZAPINE 15 MG TAB PO SCH (21:04)
[2020-07-29] MEDS: lamoTRIgine 100 MG TAB PO SCH (21:04)
[2020-07-29] MEDS: OLANZapine 10 MG TAB PO SCH (21:05)
[2020-07-29] MEDS: INSULIN DETEMIR (LEVEMIR) 100 UNIT/ML SYR SQ SCH (21:05)
[2020-07-30] MEDS: IPRATROPIUM-ALBUTEROL 3 ML NEB INHALATION SCH ×5 (03:28→21:45)
[2020-07-30] MEDS: VANCOMYCIN 2,000 MG in SODIUM CHLORIDE 0.9% 500 ML 500 ML IVPB SCH (03:57)
[2020-07-30] MEDS: PIPERACILLIN-TAZOBACTAM 3.375 GM in SODIUM CHLORIDE 0.9% 100 ML IVPB SCH ×2 (03:57→15:45)
[2020-07-30] MEDS: methylPREDNISolone SOD SUCCI 125 MG/2 ML VIAL IV SCH ×2 (05:07→11:55)
[2020-07-30 07:39] LABS: Glucose,Whole Blood 350 mg/dL (75-99)
[2020-07-30] MEDS: NICOTINE 21MG/24HR PATCH TRANSDERM SCH (07:39)
[2020-07-30] MEDS: PANTOPRAZOLE 40 MG TABLET PO SCH ×2 (07:39→20:19)
[2020-07-30] MEDS: ENOXAPARIN 40 MG/0.4 ML SYRINGE SQ SCH (07:39)
[2020-07-30] MEDS: SODIUM CHLORIDE 0.9% 1,000 ML IV SCH (07:40)
[2020-07-30] MEDS: SYMBICORT 160-4.5 MCG INHALER INHALATION SCH ×2 (08:09→21:45)
[2020-07-30] MEDS: INSULIN ASPART (NovoLOG) 100 UNIT/ML VIAL SQ SCH ×6 (09:09→20:19)
[2020-07-30] MEDS: SUBOXONE SUBLINGUAL SCH ×2 (09:09→20:19)
--- NOTE | 2020-07-30 10:57 | P.PN ---
Subjective Progress Note Date: 07/30/20 Principal diagnosis: Acute exacerbation of COPD This is a 45-year-old white male, with history of tobacco dependence syndrome, COPD, type 2 diabetes, seizure disorder, chronic pancreatitis, bipolar disorder, previous partial gastrectomy, history of pancreatic pseudocyst and lysis of adhesions in November of 2017, history of hepatitis C, IV drug abuse, crack cocaine abuse, patient was seen by us on consultation last on 07/22/2020. And we saw mostly for symptoms of acute exacerbation of COPD. Patient was treated with antibiotics, bronchodilators, steroids, and we have eventually cleared him for discharge. Patient was readmitted yesterday with similar symptoms and fortunate ly he is still smoking. Patient is complaining of cough wheezing shortness of breath, cough is productive with greenish phlegm. Denies any fever no chills no hemoptysis no chest pain. CBC on admission showed mild leukocytosis with WBC count of 12.8, low platelets of 91,000, relatively normal electrolytes, and a CT angiogram showing no evidence of pulmonary embolism, but there is evidence of questionable lingular pneumonia or atelectasis. And minimal right middle lobe pneumonic process. Considering the patient was quite short of breath, patient was admitted and this consult was initiated. Patient is now on antibiotics, bronchodilators, and I added Solu-Medrol. And he is also on oxygen at 3 L nasal cannula, and his O2 saturation is 97%. After reviewing the chart, patient was actually discharged home on 07/26 and he was readmitted on 07/28. Patient clearly admitted to me that he was still smoking after he was discharged home. Patient was reevaluated today on 07/30/2020, patient remains on the sixth floor, he is on bronchodilators, antibiotics, and steroids. Blood cultures and urine cultures are nondiagnostic sputum cultures are pending. Patient is feeling a bit better compared to how he felt yesterday, less cough and less wheezing less shortness of breath, nonetheless he continues to have intermittent cough and wheezing and he is not quite ready for discharge planning today. No labs were drawn today. PCR for coronary virus was negative on admission. Patient is on 2 L nasal cannula, O2 saturation is 95% Objective - Vital Signs Vital signs: Vital Signs Temp 97.9 F 07/30/20 07:36 Pulse 88 07/30/20 08:21 Resp 18 07/30/20 08:00 BP 119/77 07/30/20 07:36 Pulse Ox 95 07/30/20 07:36 Intake & Output 07/29/20 07/30/20 07/30/20 18:59 06:59 18:59 Intake Total 300 2000 Balance 300 2000 Intake: IV 400 Sodium Chloride 0.9% 1, 400 000 ml @ 50 mls/hr IV . Q20H VINAYAK Rx#:[id number] Intake, IV Titration 1600 Amount Piperacillin-Tazobactam 3 200 .375 gm In Sodium Chloride 0.9% 100 ml @ 25 mls/hr IVPB Q8H VINAYAK Rx#: [id number] Sodium Chloride 0.9% 1, 400 000 ml @ 50 mls/hr IV . Q20H VINAYAK Rx#:[id number] Vancomycin 2,000 mg In 1000 Sodium Chloride 0.9% 500 ml 500 ml @ 167 mls/hr IVPB Q8H VINAYAK Rx#: [id number] Oral 300 Other: Voiding Method Urinal Urinal Urinal # Voids 3 5 - Exam GENERAL EXAM: Revealed 45-year-old white male, obese, on 2 nasal cannula, in no distress.. HEAD: Normocephalic. Atraumatic. EENT: PERRLA, EOMI, nonicteric, no neck masses, moist mucous membranes. CHEST: No chest wall deformity. Symmetrical chest expansion. LUNGS: Rhonchi and wheezes persist bilaterally. CVS: S1 and S2 normal with no audible murmur, regular rhythm. ABDOMEN: No hepatosplenomegaly, normal bowel sounds, no guarding or rigidity. Musculoskeletal: No deformities or limitation in range of motion. SKIN: No rashes CENTRAL NERVOUS SYSTEM: Alert and oriented 3 no gross focal deficit. Psychiatric: Normal mood affect and normal mental status examination. EXTREMITIES: No clubbing edema or cyanosis. Good pulses bilaterally. - Labs CBC & Chem 7: 07/29/20 05:25 07/29/20 05:25 Labs: Abnormal Lab Results - Last 24 Hours (Table) 07/29/20 07/29/20 07/29/20 Range/Units 05:25 11:16 12:44 POC Glucose (mg/dL) 144 H (75-99) mg/dL Calcium 8.1 L (8.7-10.3) mg/dL AST 70 H (14-35) U/L ALT 71 H (10-49) U/L Alkaline Phosphatase 165 H (41-126) U/L Ammonia 47 H (<30) umol/L Total Protein 5.4 L (6.2-8.2) g/dL Albumin 3.50 L (3.80-4.90) g/dL 07/29/20 07/29/20 07/30/20 Range/Units 17:24 20:18 07:37 POC Glucose (mg/dL) 347 H 284 H 350 H (75-99) mg/dL Calcium (8.7-10.3) mg/dL AST (14-35) U/L ALT (10-49) U/L Alkaline Phosphatase (41-126) U/L Ammonia (<30) umol/L Total Protein (6.2-8.2) g/dL Albumin (3.80-4.90) g/dL Microbiology - Last 24 Hours (Table) 07/27/20 17:35 Blood Culture - Preliminary Blood No Growth after 48 hours 07/27/20 17:15 Blood Culture - Preliminary Blood No Growth after 48 hours 07/29/20 00:55 Urine Culture - Preliminary Urine,Clean Catch Assessment and Plan Assessment: Impression: Acute exacerbation of COPD. Acute community-acquired pneumonia. Leukocytosis and thrombocytopenia secondary to above. Type 2 diabetes. Chronically elevated liver enzymes. History of seizure disorder. History of bipolar disorder. History of hepatitis C. Remote history of IV drug abuse. History of omentectomy and gastrectomy. Chronic nicotine dependence and tobacco dependence syndrome. Recommendation: Continue present course of bronchodilators including DuoNeb and Symbicort. Continue methylprednisolone Continue nicotine patches. Continue insulin and monitor sugars closely. Continue Zosyn. And continue vancomycin for now. We will adjust based on sputum cultures. Counseled regarding smoking cessation. We'll continue to follow. Time with Patient: Less than 30
[2020-07-30] MEDS ORDERED: VANCOMYCIN TROUGH DUE 1 EACH MISC MISCELLANE ONE (11:00)
[2020-07-30 11:19] LABS: Glucose,Whole Blood 374 mg/dL (75-99)
[2020-07-30 11:58] LABS: African American GFR (CKD) >90 (>60 ml/min/1.73 sqM); Anion Gap 5 mmol/L; Blood Urea Nitrogen 19 mg/dL (9-20); Calcium 8.3 mg/dL (8.4-10.2); Carbon Dioxide 27 mmol/L (22-30); Chloride 100 mmol/L (98-107); Glucose 463 mg/dL (74-99); Non-African American GFR(CKD) >90 (>60 ml/min/1.73 sqM); Sodium 132 mmol/L (137-145)
[2020-07-30 11:59] LABS: Potassium 4.9 mmol/L (3.5-5.1)
[2020-07-30] MEDS: VANCOMYCIN 1,750 MG in SODIUM CHLORIDE 0.9% 500 ML 500 ML IVPB SCH (15:45)
[2020-07-30 17:03] LABS: Glucose,Whole Blood 228 mg/dL (75-99)
[2020-07-30 19:06] LABS: Glucose,Whole Blood 215 mg/dL (75-99)
[2020-07-30] MEDS: INSULIN DETEMIR (LEVEMIR) 100 UNIT/ML SYR SQ SCH (20:19)
[2020-07-30] MEDS: lamoTRIgine 100 MG TAB PO SCH (20:19)
[2020-07-30] MEDS: MIRTAZAPINE 15 MG TAB PO SCH (20:19)
[2020-07-30] MEDS: OLANZapine 10 MG TAB PO SCH (20:19)
--- NOTE | 2020-07-30 20:28 | PN ---
PROGRESS NOTE DATE OF SERVICE: 07/30/2020 This 45-year-old gentleman who was admitted with COPD as well as pneumonia with failure of outpatient treatment is on broad-spectrum IV antibiotics. No chest pain. No palpitations. No fever. PHYSICAL EXAMINATION: Alert and oriented x3. Pulse 94, blood pressure 120/70, respiration 20, temperature 97.3, pulse ox 94% on 3 L. HEENT: Conjunctivae normal. NECK: No jugular venous distention. CARDIOVASCULAR SYSTEM: S1, S2 muffled. RESPIRATORY SYSTEM: Breath sounds diminished at the bases. A few scattered rhonchi. ABDOMEN: Soft, non-tender. NERVOUS SYSTEM: No focal deficit. LABS: Glucose 463 and 374. ASSESSMENT: 1. Chronic obstructive pulmonary disease, acute exacerbation, with acute right lower lobe pneumonia, possibly Gram-negative, with failure of outpatient treatment; possibly hospital-acquired pneumonia. 2. Change in mental status, possible acute metabolic encephalopathy with possible sepsis, present on admission. 3. Increased white count. 4. Thrombocytopenia. 5. Change in mental status, acute metabolic encephalopathy, multifactorial. No acute abnormality detected on the CT scan of the brain. 6. Elevated D-dimer without any evidence of pulmonary embolism. 7. Increased carbon dioxide. 8. Diabetes mellitus, type 2, uncontrolled with hyperglycemia. 9. Increased AST, ALT with possible mild hepatitis. 10.Obesity with body mass index of 38. 11.History of asthma, chronic obstructive pulmonary disease. 12.History of gastroesophageal reflux disease. 13.History of degenerative joint disease. 14.History of seizure disorder. 15.History of chronic pancreatitis with a pancreatic pseudocyst as well as necrotizing pancreatitis with surgery with difficulty in incision healing. 16.History of hepatitis C, status post interferon. 17.Remote history of IV drug abuse. 18.Appendectomy. 19.Cholecystectomy. 20.History of omentectomy and gastrectomy. 21.Anxiety, bipolar, depression. 22.History of nicotine dependence, continued ongoing. 23.FULL CODE. RECOMMENDATIONS AND DISCUSSION: I recommend to continue current medications, continue with the monitoring, symptomatic treatment. I recommend to continue with empiric antibiotics. Cut down the steroids. Insulin drip for the uncontrolled diabetes mellitus. Prognosis is guarded because of multiple complex medical issues. Further recommendations to follow. MMODL / IJN: [id number] /
[2020-07-31] MEDS: PIPERACILLIN-TAZOBACTAM 3.375 GM in SODIUM CHLORIDE 0.9% 100 ML IVPB SCH ×4 (00:28→23:38)
[2020-07-31] MEDS: methylPREDNISolone SOD SUCCI 40 MG/ML 1 ML VIAL IV SCH ×4 (00:28→23:38)
[2020-07-31] MEDS: VANCOMYCIN 1,750 MG in SODIUM CHLORIDE 0.9% 500 ML 500 ML IVPB SCH ×2 (00:31→07:34)
[2020-07-31] MEDS: IPRATROPIUM-ALBUTEROL 3 ML NEB INHALATION SCH ×5 (01:41→20:19)
[2020-07-31] MEDS ORDERED: IPRATROPIUM-ALBUTEROL 3 ML NEB INHALATION PRN (03:40)
[2020-07-31] MEDS: SODIUM CHLORIDE 0.9% 1,000 ML IV SCH (04:21)
[2020-07-31 06:53] LABS: Glucose,Whole Blood 304 mg/dL (75-99)
[2020-07-31] MEDS: NICOTINE 21MG/24HR PATCH TRANSDERM SCH (07:33)
[2020-07-31] MEDS: INSULIN ASPART (NovoLOG) 100 UNIT/ML VIAL SQ SCH ×7 (07:34→20:25)
[2020-07-31] MEDS: ENOXAPARIN 40 MG/0.4 ML SYRINGE SQ SCH (07:34)
[2020-07-31] MEDS: SUBOXONE SUBLINGUAL SCH ×2 (07:34→20:25)
[2020-07-31] MEDS: PANTOPRAZOLE 40 MG TABLET PO SCH ×2 (07:35→20:25)
[2020-07-31] MEDS: SYMBICORT 160-4.5 MCG INHALER INHALATION SCH ×2 (08:02→20:19)
--- NOTE | 2020-07-31 09:43 | P.PN ---
Subjective Progress Note Date: 07/31/20 Principal diagnosis: Acute exacerbation of COPD This is a 45-year-old white male, with history of tobacco dependence syndrome, COPD, type 2 diabetes, seizure disorder, chronic pancreatitis, bipolar disorder, previous partial gastrectomy, history of pancreatic pseudocyst and lysis of adhesions in November of 2017, history of hepatitis C, IV drug abuse, crack cocaine abuse, patient was seen by us on consultation last on 07/22/2020. And we saw mostly for symptoms of acute exacerbation of COPD. Patient was treated with antibiotics, bronchodilators, steroids, and we have eventually cleared him for discharge. Patient was readmitted yesterday with similar symptoms and fortunate ly he is still smoking. Patient is complaining of cough wheezing shortness of breath, cough is productive with greenish phlegm. Denies any fever no chills no hemoptysis no chest pain. CBC on admission showed mild leukocytosis with WBC count of 12.8, low platelets of 91,000, relatively normal electrolytes, and a CT angiogram showing no evidence of pulmonary embolism, but there is evidence of questionable lingular pneumonia or atelectasis. And minimal right middle lobe pneumonic process. Considering the patient was quite short of breath, patient was admitted and this consult was initiated. Patient is now on antibiotics, bronchodilators, and I added Solu-Medrol. And he is also on oxygen at 3 L nasal cannula, and his O2 saturation is 97%. After reviewing the chart, patient was actually discharged home on 07/26 and he was readmitted on 07/28. Patient clearly admitted to me that he was still smoking after he was discharged home. Patient was reevaluated today on 07/30/2020, patient remains on the sixth floor, he is on bronchodilators, antibiotics, and steroids. Blood cultures and urine cultures are nondiagnostic sputum cultures are pending. Patient is feeling a bit better compared to how he felt yesterday, less cough and less wheezing less shortness of breath, nonetheless he continues to have intermittent cough and wheezing and he is not quite ready for discharge planning today. No labs were drawn today. PCR for coronary virus was negative on admission. Patient is on 2 L nasal cannula, O2 saturation is 95% Patient was reevaluated today on 07/31/2020, continues to have intermittent cough and wheezing, nonetheless, the patient is feeling better, breathing easier compared to how he felt when he came in. Remains on bronchodilators, antibiotics, and steroids. Preliminary report on his sputum culture there is evidence of many gram-negative bacilli, and many PMNs, there is also moderate budding yeast. Hence I will recommend that we mostly treated the patient for gram-negative infection, discontinue vancomycin, I would also recommend nystatin swish and swallow. And hopefully the patient can be transitioned to oral prednisone tomorrow, and consider discharge planning in the next 24 hours. Objective - Vital Signs Vital signs: Vital Signs Temp 97.9 F 07/31/20 07:00 Pulse 88 07/31/20 08:12 Resp 16 07/31/20 07:46 BP 117/75 07/31/20 07:00 Pulse Ox 95 07/31/20 07:00 Intake & Output 07/30/20 07/31/20 07/31/20 18:59 06:59 18:59 Intake Total 700 1200 Balance 700 1200 Intake: Intake, IV Titration 1200 Amount Piperacillin-Tazobactam 3 200 .375 gm In Sodium Chloride 0.9% 100 ml @ 25 mls/hr IVPB Q8H VINAYAK Rx#: [id number] Vancomycin 1,750 mg In 1000 Sodium Chloride 0.9% 500 ml 500 ml @ 167 mls/hr IVPB Q8HR [facility]INAYAK Rx#: [id number] Oral 700 Other: Voiding Method Urinal Urinal # Voids 5 3 - Exam GENERAL EXAM: Revealed 45-year-old white male, obese, on 2 nasal cannula, in no distress.. HEAD: Normocephalic. Atraumatic. EENT: PERRLA, EOMI, nonicteric, no neck masses, moist mucous membranes. CHEST: No chest wall deformity. Symmetrical chest expansion. LUNGS: Slight Rhonchi and wheezes persist bilaterally. CVS: S1 and S2 normal with no audible murmur, regular rhythm. ABDOMEN: No hepatosplenomegaly, normal bowel sounds, no guarding or rigidity. Musculoskeletal: No deformities or limitation in range of motion. SKIN: No rashes CENTRAL NERVOUS SYSTEM: Alert and oriented 3 no gross focal deficit. Psychiatric: Normal mood affect and normal mental status examination. EXTREMITIES: No clubbing edema or cyanosis. Good pulses bilaterally. - Labs CBC & Chem 7: 07/29/20 05:25 07/30/20 10:42 Labs: Abnormal Lab Results - Last 24 Hours (Table) 07/30/20 07/30/20 07/30/20 Range/Units 10:42 11:18 17:02 Sodium 132 L (137-145) mmol/L Creatinine 0.50 L (0.66-1.25) mg/dL Glucose 463 H (74-99) mg/dL POC Glucose (mg/dL) 374 H 228 H (75-99) mg/dL Calcium 8.3 L (8.4-10.2) mg/dL 07/30/20 07/31/20 Range/Units 19:05 06:52 Sodium (137-145) mmol/L Creatinine (0.66-1.25) mg/dL Glucose (74-99) mg/dL POC Glucose (mg/dL) 215 H 304 H (75-99) mg/dL Calcium (8.4-10.2) mg/dL Microbiology - Last 24 Hours (Table) 07/30/20 14:00 Gram Stain - Preliminary Sputum Sputum Culture - Preliminary 07/27/20 17:35 Blood Culture - Preliminary Blood No Growth after 72 hours 07/27/20 17:15 Blood Culture - Preliminary Blood No Growth after 72 hours 07/29/20 00:55 Urine Culture - Final Urine,Clean Catch Assessment and Plan Assessment: Impression: Acute exacerbation of COPD. Acute community-acquired pneumonia. Leukocytosis and thrombocytopenia secondary to above. Type 2 diabetes. Chronically elevated liver enzymes. History of seizure disorder. History of bipolar disorder. History of hepatitis C. Remote history of IV drug abuse. History of omentectomy and gastrectomy. Chronic nicotine dependence and tobacco dependence syndrome. Recommendation: Continue present course of bronchodilators including DuoNeb and Symbicort. Continue methylprednisolone Continue nicotine patches. Continue insulin and monitor sugars closely. Continue Zosyn. Discontinue vancomycin Add nystatin swish and swallow Consider discharge planning in the next 24 hours Counseled regarding smoking cessation. We'll continue to follow. Time with Patient: Less than 30
[2020-07-31] MEDS: NYSTATIN 100,000 UNIT/ML SUSP 500,000 UNIT/5 ML CUP PO SCH ×4 (10:23→20:26)
[2020-07-31 12:07] LABS: Glucose,Whole Blood 378 mg/dL (75-99)
[2020-07-31] MEDS ORDERED: HYDROCORTISONE 1% CREAM 454 GM JAR TOPICAL PRN (12:31)
[2020-07-31] MEDS ORDERED: HYDROCORTISONE 1% CREAM 30 GM TUBE TOPICAL PRN (12:34)
[2020-07-31 17:50] LABS: Glucose,Whole Blood 150 mg/dL (75-99)
--- NOTE | 2020-07-31 19:05 | PN ---
PROGRESS NOTE DATE OF SERVICE: 07/31/2020 This 45-year-old gentleman was admitted with COPD acute exacerbation, pneumonia on broad-spectrum IV antibiotics. The patient is feeling much better. The sputum culture showed gram-negative bacilli. PHYSICAL EXAMINATION: Alert and oriented x3. Pulse is 58, blood pressure 117/75, respirations 16, temperature 97.9, pulse ox 95% on room air. HEENT: Conjunctivae normal. NECK: No jugular venous distention. CARDIOVASCULAR: S1, S2 muffled. RESPIRATORY: Breath sounds diminished at the bases. A few scattered rhonchi. ABDOMEN: Soft. NERVOUS SYSTEM: No focal deficits. LABS: Accu-Cheks 304 and 378 . ASSESSMENT: 1. Chronic obstructive pulmonary disease acute exacerbation with acute right lower lobe pneumonia possibly gram-negative with failure of outpatient treatment with possible hospital-acquired pneumonia. 2. Sputum culture showing gram-negative bacilli. 3. Change in mental status, possible acute metabolic encephalopathy with possible sepsis, present on admission. 4. Increased WBC. 5. Thrombocytopenia. 6. Change in mental status, acute metabolic encephalopathy multifactorial. No acute abnormality detected on the CT scan of the brain. 7. Elevated D-dimer with no evidence of pulmonary embolism. 8. Increased CO2. 9. Diabetes mellitus type 2, uncontrolled with hyperglycemia. 10.Increased AST, ALT with possible mild hepatitis. 11.Obesity with body mass index of 38. 12.History of asthma, chronic obstructive pulmonary disease. 13.History of gastroesophageal reflux disease. 14.History of degenerative joint disease. 15.History of seizure disorder. 16.History of chronic pancreatitis with pancreatic pseudocyst as well as necrotizing pancreatitis with surgery and difficulty incision healing. 17.History of hepatitis C, status post interferon. 18.Remote history of IV drug abuse. 19.Appendectomy. 20.Cholecystectomy. 21.History of omentectomy and gastrectomy. 22.Anxiety, bipolar, depression. 23.History of nicotine dependence, continued ongoing. 24.FULL CODE. RECOMMENDATIONS AND DISCUSSION: Continue current medications. Continue to monitor and symptomatic treatment. Otherwise at this time I recommend monitor the blood sugars closely. Repeat labs. Continue the broad-spectrum IV antibiotics. I would increase the dose of Lantus at this time to 80 units and continue to monitor. Guarded prognosis. Further recommendations to follow. MMODL / IJN: [id number] /
[2020-07-31 20:14] LABS: Glucose,Whole Blood 139 mg/dL (75-99)
[2020-07-31] MEDS: OLANZapine 10 MG TAB PO SCH (20:25)
[2020-07-31] MEDS: MIRTAZAPINE 15 MG TAB PO SCH (20:25)
[2020-07-31] MEDS: lamoTRIgine 100 MG TAB PO SCH (20:25)
[2020-07-31] MEDS: INSULIN DETEMIR (LEVEMIR) 100 UNIT/ML SYR SQ SCH (20:25)
[2020-08-01] MEDS: SODIUM CHLORIDE 0.9% 1,000 ML IV SCH ×2 (01:38→20:40)
[2020-08-01 07:08] LABS: Glucose,Whole Blood 349 mg/dL (75-99)
[2020-08-01] MEDS: methylPREDNISolone SOD SUCCI 40 MG/ML 1 ML VIAL IV SCH ×3 (08:17→23:45)
[2020-08-01] MEDS: PANTOPRAZOLE 40 MG TABLET PO SCH ×2 (08:17→20:42)
[2020-08-01] MEDS: NICOTINE 21MG/24HR PATCH TRANSDERM SCH (08:17)
[2020-08-01] MEDS: SUBOXONE SUBLINGUAL SCH ×2 (08:17→20:42)
[2020-08-01] MEDS: PIPERACILLIN-TAZOBACTAM 3.375 GM in SODIUM CHLORIDE 0.9% 100 ML IVPB SCH ×3 (08:17→23:45)
[2020-08-01] MEDS: ENOXAPARIN 40 MG/0.4 ML SYRINGE SQ SCH (08:18)
[2020-08-01] MEDS: NYSTATIN 100,000 UNIT/ML SUSP 500,000 UNIT/5 ML CUP PO SCH ×4 (08:18→20:43)
[2020-08-01] MEDS: INSULIN ASPART (NovoLOG) 100 UNIT/ML VIAL SQ SCH ×7 (08:18→20:42)
[2020-08-01] MEDS: IPRATROPIUM-ALBUTEROL 3 ML NEB INHALATION SCH ×4 (08:57→20:05)
[2020-08-01] MEDS: SYMBICORT 160-4.5 MCG INHALER INHALATION SCH ×2 (08:57→20:05)
--- NOTE | 2020-08-01 10:26 | P.PN ---
Subjective Progress Note Date: 08/01/20 Principal diagnosis: Acute exacerbation of COPD This is a 45-year-old white male, with history of tobacco dependence syndrome, COPD, type 2 diabetes, seizure disorder, chronic pancreatitis, bipolar disorder, previous partial gastrectomy, history of pancreatic pseudocyst and lysis of adhesions in November of 2017, history of hepatitis C, IV drug abuse, crack cocaine abuse, patient was seen by us on consultation last on 07/22/2020. And we saw mostly for symptoms of acute exacerbation of COPD. Patient was treated with antibiotics, bronchodilators, steroids, and we have eventually cleared him for discharge. Patient was readmitted yesterday with similar symptoms and fortunate ly he is still smoking. Patient is complaining of cough wheezing shortness of breath, cough is productive with greenish phlegm. Denies any fever no chills no hemoptysis no chest pain. CBC on admission showed mild leukocytosis with WBC count of 12.8, low platelets of 91,000, relatively normal electrolytes, and a CT angiogram showing no evidence of pulmonary embolism, but there is evidence of questionable lingular pneumonia or atelectasis. And minimal right middle lobe pneumonic process. Considering the patient was quite short of breath, patient was admitted and this consult was initiated. Patient is now on antibiotics, bronchodilators, and I added Solu-Medrol. And he is also on oxygen at 3 L nasal cannula, and his O2 saturation is 97%. After reviewing the chart, patient was actually discharged home on 07/26 and he was readmitted on 07/28. Patient clearly admitted to me that he was still smoking after he was discharged home. Patient was reevaluated today on 07/30/2020, patient remains on the sixth floor, he is on bronchodilators, antibiotics, and steroids. Blood cultures and urine cultures are nondiagnostic sputum cultures are pending. Patient is feeling a bit better compared to how he felt yesterday, less cough and less wheezing less shortness of breath, nonetheless he continues to have intermittent cough and wheezing and he is not quite ready for discharge planning today. No labs were drawn today. PCR for coronary virus was negative on admission. Patient is on 2 L nasal cannula, O2 saturation is 95% Patient was reevaluated today on 07/31/2020, continues to have intermittent cough and wheezing, nonetheless, the patient is feeling better, breathing easier compared to how he felt when he came in. Remains on bronchodilators, antibiotics, and steroids. Preliminary report on his sputum culture there is evidence of many gram-negative bacilli, and many PMNs, there is also moderate budding yeast. Hence I will recommend that we mostly treated the patient for gram-negative infection, discontinue vancomycin, I would also recommend nystatin swish and swallow. And hopefully the patient can be transitioned to oral prednisone tomorrow, and consider discharge planning in the next 24 hours. Patient was reevaluated today on 08/01/2020, patient feels much better today, breathing a lot easier, hardly any cough no wheezing no shortness of breath, patient is asking if he could go home today. His sputum culture is showing gram-negative organisms, hence the patient could be transitioned to Levaquin orally he could also take prednisone 40 mg tapered over the next 3 weeks. And his usual bronchodilators including Symbicort, DuoNeb updrafts 4 times a day and when necessary, and patient was counseled regarding smoking cessation, and I would likely clear up to be discharged home today if agreeable with his admitting physician. Again he should stop smoking and he should take the medications as listed above Objective - Vital Signs Vital signs: Vital Signs Temp 97.7 F 08/01/20 06:52 Pulse 92 08/01/20 09:09 Resp 20 08/01/20 06:52 BP 124/77 08/01/20 06:52 Pulse Ox 97 08/01/20 06:52 Intake & Output 07/31/20 08/01/20 08/01/20 18:59 06:59 18:59 Other: Voiding Method Urinal Urinal # Voids 5 3 - Exam GENERAL EXAM: Revealed 45-year-old white male, obese, on 2 nasal cannula, in no distress.. HEAD: Normocephalic. Atraumatic. EENT: PERRLA, EOMI, nonicteric, no neck masses, moist mucous membranes. CHEST: No chest wall deformity. Symmetrical chest expansion. LUNGS: Symmetrical chest expansion, minimal wheezing on forced expiratory maneuver only. CVS: S1 and S2 normal with no audible murmur, regular rhythm. ABDOMEN: No hepatosplenomegaly, normal bowel sounds, no guarding or rigidity. Musculoskeletal: No deformities or limitation in range of motion. SKIN: No rashes CENTRAL NERVOUS SYSTEM: Alert and oriented 3 no gross focal deficit. Psychiatric: Normal mood affect and normal mental status examination. EXTREMITIES: No clubbing edema or cyanosis. Good pulses bilaterally. - Labs CBC & Chem 7: 07/29/20 05:25 07/30/20 10:42 Labs: Abnormal Lab Results - Last 24 Hours (Table) 07/31/20 07/31/20 07/31/20 Range/Units 12:06 17:48 20:13 POC Glucose (mg/dL) 378 H 150 H 139 H (75-99) mg/dL 08/01/20 Range/Units 06:53 POC Glucose (mg/dL) 349 H (75-99) mg/dL Microbiology - Last 24 Hours (Table) 07/27/20 17:15 Blood Culture - Preliminary Blood No Growth after 96 hours 07/27/20 17:35 Blood Culture - Preliminary Blood No Growth after 96 hours 07/30/20 14:00 Gram Stain - Preliminary Sputum Sputum Culture - Preliminary Gram Neg Bacilli Assessment and Plan Assessment: Impression: Acute exacerbation of COPD. Acute gram-negative pneumonia Leukocytosis and thrombocytopenia secondary to above. Type 2 diabetes. Chronically elevated liver enzymes. History of seizure disorder. History of bipolar disorder. History of hepatitis C. Remote history of IV drug abuse. History of omentectomy and gastrectomy. Chronic nicotine dependence and tobacco dependence syndrome. Recommendation: Continue present course of bronchodilators including DuoNeb and Symbicort. Change Solu-Medrol to prednisone 40 mg by mouth daily and tapered over a period of 3 weeks. Continue nicotine patches. Change Zosyn to Levaquin and arrange for discharge planning. Continue nystatin for one more week. We will clear the patient to be discharged home today if agreeable with the admitting physician P Follow-up with me in the office in 2 weeks postdischarge. Time with Patient: Less than 30
[2020-08-01 11:45] VITALS: BMI 38.0
[2020-08-01 12:04] LABS: Glucose,Whole Blood 153 mg/dL (75-99)
[2020-08-01 17:26] LABS: Glucose,Whole Blood 127 mg/dL (75-99)
[2020-08-01 20:34] LABS: Glucose,Whole Blood 169 mg/dL (75-99)
[2020-08-01] MEDS: INSULIN DETEMIR (LEVEMIR) 100 UNIT/ML SYR SQ SCH (20:41)
[2020-08-01] MEDS: lamoTRIgine 100 MG TAB PO SCH (20:42)
[2020-08-01] MEDS: MIRTAZAPINE 15 MG TAB PO SCH (20:42)
[2020-08-01] MEDS: OLANZapine 10 MG TAB PO SCH (20:42)
--- NOTE | 2020-08-01 22:35 | P.PN ---
Subjective This is a pleasant 45 years old male With past medical history of COPD, diabetes mellitus, GERD, seizure disorder, pancreatitis with pseudocyst, hepatitis C, previous IV drug abuse degenerative joint disease and chronic low back pain. Presents with signs symptoms of COPD with acute pneumonia. Today is been seen on the follow-up of the general medical floor, he was lying in bed comfortable, no respiratory distress, no chest pain or coughing. Patient is followed closely by pulmonary team and he is on Solu-Medrol 40 mg, Zosyn and insulin at 50 mL/h Sputum culture is growing E. coli she is ESBL. He has mild leukocytosis but no fever. He needs to get off oxygen via nasal cannula with saturation of 96% Objective - Vital Signs Vital signs: Vital Signs Temp 98.1 F 08/01/20 14:44 Pulse 72 08/01/20 14:44 Resp 16 08/01/20 14:44 BP 119/75 08/01/20 14:44 Pulse Ox 96 08/01/20 14:44 Intake & Output 07/31/20 08/01/20 08/01/20 18:59 06:59 18:59 Weight 120.202 kg Other: Voiding Method Urinal Urinal # Voids 5 3 3 - Labs CBC & Chem 7: 07/29/20 05:25 07/30/20 10:42 Labs: Abnormal Lab Results - Last 24 Hours (Table) 07/31/20 07/31/20 08/01/20 Range/Units 17:48 20:13 06:53 POC Glucose (mg/dL) 150 H 139 H 349 H (75-99) mg/dL 08/01/20 Range/Units 11:43 POC Glucose (mg/dL) 153 H (75-99) mg/dL Microbiology - Last 24 Hours (Table) 07/27/20 17:15 Blood Culture - Preliminary Blood No Growth after 96 hours 07/27/20 17:35 Blood Culture - Preliminary Blood No Growth after 96 hours 07/30/20 14:00 Gram Stain - Preliminary Sputum Sputum Culture - Preliminary Gram Neg Bacilli Assessment and Plan Assessment: Acute COPD exacerbation Community-acquired pneumonia secondary to ESBL E. coli Metabolic encephalopathy, resolved and patient back to baseline mental status Type 2 diabetes mellitus History of seizure disorder History of GERD History of pancreatitis with pseudocyst History of hepatitis C Previous IV drug abuse History of chronic back pain and degenerative joint disease Plan: This is a pleasant 45 years old male who presents with COPD and pneumonia. Continue with MEDROL, ZOSYN AND GENTLE HYDRATION. PULMONARY TEAM. THE PATIENT FOR DISCHARGE. WE WILL CONSULT INFECTIOUS DISEASE FOR ESBL E. COLI IN THE SPUTUM Labs and medication were reviewed.. Continue same treatment. Continue with s ymptomatic treatment. Resume home medication. Monitor lytes and vitals. DVT and GI prophylaxis. Further recommendationsas per clinical course of the patient DVT prophylaxis: Subcutaneous Lovenox GI Prophylaxis: Ppi
[2020-08-02 08:28] LABS: Glucose,Whole Blood 338 mg/dL (75-99)
[2020-08-02] MEDS: IPRATROPIUM-ALBUTEROL 3 ML NEB INHALATION SCH ×4 (08:41→21:12)
[2020-08-02] MEDS: SYMBICORT 160-4.5 MCG INHALER INHALATION SCH ×2 (08:41→21:12)
[2020-08-02] MEDS: INSULIN ASPART (NovoLOG) 100 UNIT/ML VIAL SQ SCH ×7 (09:03→22:26)
[2020-08-02] MEDS: NICOTINE 21MG/24HR PATCH TRANSDERM SCH (09:03)
[2020-08-02] MEDS: methylPREDNISolone SOD SUCCI 40 MG/ML 1 ML VIAL IV SCH ×2 (09:04→17:44)
[2020-08-02] MEDS: MEROPENEM 1 GM in SODIUM CHLORIDE 0.9% 100 ML IVPB SCH ×2 (09:04→17:44)
[2020-08-02] MEDS: ENOXAPARIN 40 MG/0.4 ML SYRINGE SQ SCH (09:05)
[2020-08-02] MEDS: NYSTATIN 100,000 UNIT/ML SUSP 500,000 UNIT/5 ML CUP PO SCH ×4 (09:05→22:55)
[2020-08-02] MEDS: PANTOPRAZOLE 40 MG TABLET PO SCH ×2 (09:05→22:26)
[2020-08-02] MEDS: SUBOXONE SUBLINGUAL SCH ×2 (10:18→22:27)
[2020-08-02 12:00] LABS: Glucose,Whole Blood 200 mg/dL (75-99)
--- NOTE | 2020-08-02 12:15 | P.PN ---
Subjective Progress Note Date: 08/02/20 Principal diagnosis: Acute exacerbation of COPD This is a 45-year-old white male, with history of tobacco dependence syndrome, COPD, type 2 diabetes, seizure disorder, chronic pancreatitis, bipolar disorder, previous partial gastrectomy, history of pancreatic pseudocyst and lysis of adhesions in November of 2017, history of hepatitis C, IV drug abuse, crack cocaine abuse, patient was seen by us on consultation last on 07/22/2020. And we saw mostly for symptoms of acute exacerbation of COPD. Patient was treated with antibiotics, bronchodilators, steroids, and we have eventually cleared him for discharge. Patient was readmitted yesterday with similar symptoms and fortunate ly he is still smoking. Patient is complaining of cough wheezing shortness of breath, cough is productive with greenish phlegm. Denies any fever no chills no hemoptysis no chest pain. CBC on admission showed mild leukocytosis with WBC count of 12.8, low platelets of 91,000, relatively normal electrolytes, and a CT angiogram showing no evidence of pulmonary embolism, but there is evidence of questionable lingular pneumonia or atelectasis. And minimal right middle lobe pneumonic process. Considering the patient was quite short of breath, patient was admitted and this consult was initiated. Patient is now on antibiotics, bronchodilators, and I added Solu-Medrol. And he is also on oxygen at 3 L nasal cannula, and his O2 saturation is 97%. After reviewing the chart, patient was actually discharged home on 07/26 and he was readmitted on 07/28. Patient clearly admitted to me that he was still smoking after he was discharged home. Patient was reevaluated today on 07/30/2020, patient remains on the sixth floor, he is on bronchodilators, antibiotics, and steroids. Blood cultures and urine cultures are nondiagnostic sputum cultures are pending. Patient is feeling a bit better compared to how he felt yesterday, less cough and less wheezing less shortness of breath, nonetheless he continues to have intermittent cough and wheezing and he is not quite ready for discharge planning today. No labs were drawn today. PCR for coronary virus was negative on admission. Patient is on 2 L nasal cannula, O2 saturation is 95% Patient was reevaluated today on 07/31/2020, continues to have intermittent cough and wheezing, nonetheless, the patient is feeling better, breathing easier compared to how he felt when he came in. Remains on bronchodilators, antibiotics, and steroids. Preliminary report on his sputum culture there is evidence of many gram-negative bacilli, and many PMNs, there is also moderate budding yeast. Hence I will recommend that we mostly treated the patient for gram-negative infection, discontinue vancomycin, I would also recommend nystatin swish and swallow. And hopefully the patient can be transitioned to oral prednisone tomorrow, and consider discharge planning in the next 24 hours. Patient was reevaluated today on 08/01/2020, patient feels much better today, breathing a lot easier, hardly any cough no wheezing no shortness of breath, patient is asking if he could go home today. His sputum culture is showing gram-negative organisms, hence the patient could be transitioned to Levaquin orally he could also take prednisone 40 mg tapered over the next 3 weeks. And his usual bronchodilators including Symbicort, DuoNeb updrafts 4 times a day and when necessary, and patient was counseled regarding smoking cessation, and I would likely clear up to be discharged home today if agreeable with his admitting physician. Again he should stop smoking and he should take the medications as listed above Patient was reevaluated today on 08/02/2020, I basically cleared him for discharge, however his E. coli in the sputum came back to be ESBL. Patient is doing well clinically, and infectious disease was consulted in the meantime I started the patient on Merrem and I discontinued his Zosyn. Patient may need a PICC line, and possibly outpatient course of antibiotics which will be decided upon by infectious disease on the case. Pulmonary-talavera the patient is feeling better breathing easier, hardly any cough no wheezing no fever no chills. Objective - Vital Signs Vital signs: Vital Signs Temp 97.6 F 08/02/20 07:55 Pulse 84 08/02/20 08:55 Resp 16 08/02/20 08:00 BP 113/69 08/02/20 07:55 Pulse Ox 98 08/02/20 07:55 Intake & Output 08/01/20 08/02/20 08/02/20 18:59 06:59 18:59 Intake Total 300 Output Total 200 Balance 100 Weight 120.202 kg Intake: Oral 300 Output: Urine 200 Other: Voiding Method Urinal Urinal Urinal # Voids 3 1 1 - Exam GENERAL EXAM: Revealed 45-year-old white male, obese, on 2 nasal cannula, in no distress.. HEAD: Normocephalic. Atraumatic. EENT: PERRLA, EOMI, nonicteric, no neck masses, moist mucous membranes. CHEST: No chest wall deformity. Symmetrical chest expansion. LUNGS: Symmetrical chest expansion, minimal wheezing on forced expiratory maneuver only. CVS: S1 and S2 normal with no audible murmur, regular rhythm. ABDOMEN: No hepatosplenomegaly, normal bowel sounds, no guarding or rigidity. Musculoskeletal: No deformities or limitation in range of motion. SKIN: No rashes CENTRAL NERVOUS SYSTEM: Alert and oriented 3 no gross focal deficit. Psychiatric: Normal mood affect and normal mental status examination. EXTREMITIES: No clubbing edema or cyanosis. Good pulses bilaterally. - Labs CBC & Chem 7: 07/29/20 05:25 07/30/20 10:42 Labs: Abnormal Lab Results - Last 24 Hours (Table) 08/01/20 08/01/20 08/02/20 Range/Units 17:21 20:33 07:57 POC Glucose (mg/dL) 127 H 169 H 338 H (75-99) mg/dL 08/02/20 Range/Units 11:54 POC Glucose (mg/dL) 200 H (75-99) mg/dL Microbiology - Last 24 Hours (Table) 07/27/20 17:35 Blood Culture - Preliminary Blood No Growth after 120 hours 07/27/20 17:15 Blood Culture - Preliminary Blood No Growth after 120 hours 07/30/20 14:00 Gram Stain - Final Sputum Sputum Culture - Final Escherichia coli Assessment and Plan Assessment: Impression: Acute exacerbation of COPD. E. coli pneumonia/ESBL. Leukocytosis and thrombocytopenia secondary to above. Type 2 diabetes. Chronically elevated liver enzymes. History of seizure disorder. History of bipolar disorder. History of hepatitis C. Remote history of IV drug abuse. History of omentectomy and gastrectomy. Chronic nicotine dependence and tobacco dependence syndrome. Recommendation: Continue present course of bronchodilators including DuoNeb and Symbicort. Continue prednisone and to be tapered over 3 weeks.. Continue nicotine patches. Changed to Zosyn to Merrem and consulted infectious disease to evaluate Continue nystatin for one more week. Patient may need a PICC line for IV antibiotics at home and that will be decided upon by ID on the case. Time with Patient: Less than 30
[2020-08-02] MEDS: PIPERACILLIN-TAZOBACTAM 3.375 GM in SODIUM CHLORIDE 0.9% 100 ML IVPB SCH (14:34)
[2020-08-02] MEDS: SODIUM CHLORIDE 0.9% 1,000 ML IV SCH (17:44)
[2020-08-02 17:48] LABS: Glucose,Whole Blood 299 mg/dL (75-99)
[2020-08-02 21:13] LABS: Glucose,Whole Blood 247 mg/dL (75-99)
[2020-08-02] MEDS: lamoTRIgine 100 MG TAB PO SCH (22:25)
[2020-08-02] MEDS: INSULIN DETEMIR (LEVEMIR) 100 UNIT/ML SYR SQ SCH (22:26)
--- NOTE | 2020-08-02 22:28 | P.PN ---
Subjective This is a pleasant 45 years old male With past medical history of COPD, diabetes mellitus, GERD, seizure disorder, pancreatitis with pseudocyst, hepatitis C, previous IV drug abuse degenerative joint disease and chronic low back pain. Presents with signs symptoms of COPD with acute pneumonia. Today is been seen on the follow-up of the general medical floor, he was lying in bed comfortable, no respiratory distress, no chest pain or coughing. Patient is followed closely by pulmonary team and he is on Solu-Medrol 40 mg, Zosyn and insulin at 50 mL/h Sputum culture is growing E. coli she is ESBL. He has mild leukocytosis but no fever. He needs to get off oxygen via nasal cannula with saturation of 96% 08/02/2020 Patient is doing well clinically and his breathing is significantly improved since yesterday at or close to baseline, patient feeling is ready to go home, patient was cleared for discharge by pulmonary services however his sputum culture came back positive for ESBL E. coli and in view of his recent pneumonia during this admission, infectious disease consult was obtained for IV antibiotics upon discharge, PICC line disorder. Currently patient is covered with meropenem Possible discharge in 24-48 hours once management for outpatient antibiotics is setup Objective - Vital Signs Vital signs: Vital Signs Temp 97.6 F 08/02/20 07:55 Pulse 88 08/02/20 16:03 Resp 16 08/02/20 14:00 BP 113/69 08/02/20 07:55 Pulse Ox 98 08/02/20 07:55 Intake & Output 08/01/20 08/02/20 08/02/20 18:59 06:59 18:59 Intake Total 300 Output Total 200 Balance 100 Weight 120.202 kg Intake: Oral 300 Output: Urine 200 Other: Voiding Method Urinal Urinal Urinal # Voids 3 1 2 - Exam GENERAL: The patient is alert and oriented x3, not in any acute distress. Well developed, well nourished. HEENT: Pupils are round and equally reacting to light. EOMI. No scleral icterus. No conjunctival pallor. Normocephalic, atraumatic. No pharyngeal erythema. No thyromegaly. CARDIOVASCULAR: S1 and S2 present. No murmurs, rubs, or gallops. PULMONARY: Chest is clear to auscultation, no wheezing or crackles. ABDOMEN: Soft, nontender, nondistended, normoactive bowel sounds. No palpable organomegaly. MUSCULOSKELETAL: No joint swelling or deformity. EXTREMITIES: No cyanosis, clubbing, or pedal edema. NEUROLOGICAL: Gross neurological examination did not reveal any focal deficits. SKIN: No rashes. no petechiae. - Labs CBC & Chem 7: 07/29/20 05:25 07/30/20 10:42 Labs: Abnormal Lab Results - Last 24 Hours (Table) 08/01/20 08/01/20 08/02/20 Range/Units 17:21 20:33 07:57 POC Glucose (mg/dL) 127 H 169 H 338 H (75-99) mg/dL 08/02/20 Range/Units 11:54 POC Glucose (mg/dL) 200 H (75-99) mg/dL Microbiology - Last 24 Hours (Table) 07/27/20 17:35 Blood Culture - Preliminary Blood No Growth after 120 hours 07/27/20 17:15 Blood Culture - Preliminary Blood No Growth after 120 hours 07/30/20 14:00 Gram Stain - Final Sputum Sputum Culture - Final Escherichia coli Assessment and Plan Assessment: Acute COPD exacerbation Community-acquired pneumonia secondary to ESBL E. coli Metabolic encephalopathy, resolved and patient back to baseline mental status Type 2 diabetes mellitus History of seizure disorder History of GERD History of pancreatitis with pseudocyst History of hepatitis C Previous IV drug abuse History of chronic back pain and degenerative joint disease Plan: This is a pleasant 45 years old male who presents with COPD and pneumonia. Co ntinue with MEDROL, meropenem. Discontinue IV fluids. Pulmonary team on the case Patient will need a PICC line and discharge antibiotics as per ID team Labs and medication were reviewed.. Continue same treatment. Continue with symptomatic treatment. Resume home medication. Monitor lytes and vitals. DVT and GI prophylaxis. Further recommendationsas per clinical course of the patient DVT prophylaxis: Subcutaneous Lovenox GI Prophylaxis: Ppi
[2020-08-02] MEDS: OLANZapine 10 MG TAB PO SCH (22:55)
[2020-08-02] MEDS: MIRTAZAPINE 15 MG TAB PO SCH (22:55)
[2020-08-03] MEDS: methylPREDNISolone SOD SUCCI 40 MG/ML 1 ML VIAL IV SCH ×2 (00:20→08:05)
[2020-08-03] MEDS: MEROPENEM 1 GM in SODIUM CHLORIDE 0.9% 100 ML IVPB SCH ×3 (00:20→16:32)
--- NOTE | 2020-08-03 06:55 | CONS ---
CONSULTATION DATE OF SERVICE: 08/02/2020 REASON FOR CONSULTATION: Pneumonia. HISTORY OF PRESENT ILLNESS: The patient is a 45-year-old male with a past medical history significant for COPD, recently admitted to this facility and treated for COPD exacerbation with tracheobronchitis, subsequently discharged home. Patient presented back to the hospital on 07/27/2020 within 24 hours of discharge with concern for increasing shortness of breath on minimal exertion and even at rest. Patient does have a cough which is moderate in intensity with some purulent sputum. No hemoptysis. Denies having any chest pain. Denies any nausea, no vomiting. No abdominal pain or any diarrhea. With these symptoms, the patient was evaluated by the ER physician. On arrival to the ER, the patient was afebrile. No fever has been recorded during this admission. The patient did have a mild hypoxemia. The patient on presentation to hospital did have a white count of 12.7. Creatinine has been normal. The patient urine was negative. Yin PCR was negative. Patient did have a chest x-ray followed by CT angiogram of the chest that was negative for PE but did show evidence of pneumonia involving the lingula and right middle lobe. The patient was admitted to the hospital and has been treated with antibiotic. Blood culture has been done which are negative. Sputum is showing ESBL E coli. The patient antibiotic has been switched over to meropenem. Infectious Disease was consulted for further management. REVIEW OF SYSTEMS: Positive points have been mentioned in HPI. Rest of systems are negative. PAST MEDICAL HISTORY: Asthma, COPD, diabetes mellitus, GERD, seizure disorder, chronic pancreatitis. PAST SURGICAL HISTORY: Appendectomy cholecystectomy, laparotomy, partial pneumonectomy, . SOCIAL HISTORY: Current everyday smoker. No drinking or drug use. FAMILY HISTORY: Brother with history of alcoholism. Father with history of IA and pacemaker placement. ALLERGIES: CODEINE, FIORICET, . MEDICATION: the patient is on DuoNeb, Symbicort, Lovenox, hydrocortisone, NovoLog, Levemir, Lamictal, meropenem 1 g q.8 hours. He is on Solu-Medrol, Remeron, Narcan, nicotine patch, Suboxone, oral suspension. PHYSICAL EXAMINATION: VITAL SIGNS: Blood pressure 124/72 with a pulse of 88, temperature 98.1, he is 98% on 2 L nasal cannula. GENERAL DESCRIPTION: Patient is a middle-aged male up in the chair in no distress. HEENT: Examination shows no pallor or scleral icterus. Oral mucous membrane is dry. NECK: Trachea central, no thyromegaly. LUNGS: Unlabored breathing, decreased intensity of breath sounds. No wheeze. HEART: S1-S2, regular rate and rhythm. ABDOMEN: Soft, no tenderness. No guarding or rigidity. EXTREMITIES: No edema of the feet. SKIN: No rash or mass palpable. NEUROLOGICAL: Patient is awake, alert, oriented times three. Mood and affect normal. LABS: Hemoglobin 13.4, white count 12.79, BUN of 19, creatinine 0.50. DIAGNOSTIC IMPRESSION: Patient admitted to the hospital with increasing shortness of breath and cough in this patient who did have evidence of multifocal pneumonia. Sputum has now been finalized with ESBL in this patient with underlying chronic obstructive pulmonary disease and recurrent admissions to the hospital. PLAN: 1. Patient to continue with meropenem 1 g q.8 hours that will be transitioned to Invanz 1 g daily for another 7-10 days depending on clinical response. 2. We will follow on clinical condition and culture to further adjust medication if needed. Thank you for this consultation. Will follow this patient along with you. MMODL / IJN: [id number] /
[2020-08-03 07:11] LABS: Basophils % (A) 0 %; Eosinophils % (A) 0 %; HCT 42.5 % (39.0-53.0); HGB 13.1 gm/dL (13.0-17.5); Hypochromasia Slight; Lymphocytes % (A) 10 %; MCH 27.7 pg (25.0-35.0); MCHC 30.7 g/dL (31.0-37.0); MCV 90.3 fL (80.0-100.0); Mean Platelet Volume 10.3; Monocytes # (A) 0.3 k/uL (0-1.0); Monocytes % (A) 3 %; Neutrophils # (A) 8.8 k/uL (1.3-7.7); Neutrophils % (A) 86 %; Platelet Count 102 k/uL (150-450); RBC 4.71 m/uL (4.30-5.90); WBC 10.3 k/uL (3.8-10.6)
[2020-08-03 07:19] LABS: African American GFR (CKD) >90 (>60 ml/min/1.73 sqM); Anion Gap 4 mmol/L; Blood Urea Nitrogen 21 mg/dL (9-20); C Reactive Protein 8.1 mg/L (<10.0); Calcium 8.6 mg/dL (8.4-10.2); Carbon Dioxide 33 mmol/L (22-30); Chloride 96 mmol/L (98-107); Glucose 458 mg/dL (74-99); Non-African American GFR(CKD) >90 (>60 ml/min/1.73 sqM); Potassium 5.2 mmol/L (3.5-5.1); Sodium 133 mmol/L (137-145)
[2020-08-03 07:56] LABS: Glucose,Whole Blood 348 mg/dL (75-99)
[2020-08-03] MEDS: ENOXAPARIN 40 MG/0.4 ML SYRINGE SQ SCH (08:05)
[2020-08-03] MEDS: NICOTINE 21MG/24HR PATCH TRANSDERM SCH (08:06)
[2020-08-03] MEDS: PANTOPRAZOLE 40 MG TABLET PO SCH ×2 (08:06→23:17)
[2020-08-03] MEDS: NYSTATIN 100,000 UNIT/ML SUSP 500,000 UNIT/5 ML CUP PO SCH ×4 (08:06→23:16)
[2020-08-03] MEDS: IPRATROPIUM-ALBUTEROL 3 ML NEB INHALATION SCH ×4 (08:22→19:20)
[2020-08-03] MEDS: SYMBICORT 160-4.5 MCG INHALER INHALATION SCH ×2 (08:22→19:23)
[2020-08-03] MEDS: INSULIN ASPART (NovoLOG) 100 UNIT/ML VIAL SQ SCH ×7 (08:51→23:16)
[2020-08-03] MEDS: SUBOXONE SUBLINGUAL SCH ×2 (08:51→23:35)
--- NOTE | 2020-08-03 10:18 | P.PN ---
Subjective Progress Note Date: 08/03/20 Principal diagnosis: Acute exacerbation of COPD This is a 45-year-old white male, with history of tobacco dependence syndrome, COPD, type 2 diabetes, seizure disorder, chronic pancreatitis, bipolar disorder, previous partial gastrectomy, history of pancreatic pseudocyst and lysis of adhesions in November of 2017, history of hepatitis C, IV drug abuse, crack cocaine abuse, patient was seen by us on consultation last on 07/22/2020. And we saw mostly for symptoms of acute exacerbation of COPD. Patient was treated with antibiotics, bronchodilators, steroids, and we have eventually cleared him for discharge. Patient was readmitted yesterday with similar symptoms and fortunate ly he is still smoking. Patient is complaining of cough wheezing shortness of breath, cough is productive with greenish phlegm. Denies any fever no chills no hemoptysis no chest pain. CBC on admission showed mild leukocytosis with WBC count of 12.8, low platelets of 91,000, relatively normal electrolytes, and a CT angiogram showing no evidence of pulmonary embolism, but there is evidence of questionable lingular pneumonia or atelectasis. And minimal right middle lobe pneumonic process. Considering the patient was quite short of breath, patient was admitted and this consult was initiated. Patient is now on antibiotics, bronchodilators, and I added Solu-Medrol. And he is also on oxygen at 3 L nasal cannula, and his O2 saturation is 97%. After reviewing the chart, patient was actually discharged home on 07/26 and he was readmitted on 07/28. Patient clearly admitted to me that he was still smoking after he was discharged home. Patient was reevaluated today on 07/30/2020, patient remains on the sixth floor, he is on bronchodilators, antibiotics, and steroids. Blood cultures and urine cultures are nondiagnostic sputum cultures are pending. Patient is feeling a bit better compared to how he felt yesterday, less cough and less wheezing less shortness of breath, nonetheless he continues to have intermittent cough and wheezing and he is not quite ready for discharge planning today. No labs were drawn today. PCR for coronary virus was negative on admission. Patient is on 2 L nasal cannula, O2 saturation is 95% Patient was reevaluated today on 07/31/2020, continues to have intermittent cough and wheezing, nonetheless, the patient is feeling better, breathing easier compared to how he felt when he came in. Remains on bronchodilators, antibiotics, and steroids. Preliminary report on his sputum culture there is evidence of many gram-negative bacilli, and many PMNs, there is also moderate budding yeast. Hence I will recommend that we mostly treated the patient for gram-negative infection, discontinue vancomycin, I would also recommend nystatin swish and swallow. And hopefully the patient can be transitioned to oral prednisone tomorrow, and consider discharge planning in the next 24 hours. Patient was reevaluated today on 08/01/2020, patient feels much better today, breathing a lot easier, hardly any cough no wheezing no shortness of breath, patient is asking if he could go home today. His sputum culture is showing gram-negative organisms, hence the patient could be transitioned to Levaquin orally he could also take prednisone 40 mg tapered over the next 3 weeks. And his usual bronchodilators including Symbicort, DuoNeb updrafts 4 times a day and when necessary, and patient was counseled regarding smoking cessation, and I would likely clear up to be discharged home today if agreeable with his admitting physician. Again he should stop smoking and he should take the medications as listed above Patient was reevaluated today on 08/02/2020, I basically cleared him for discharge, however his E. coli in the sputum came back to be ESBL. Patient is doing well clinically, and infectious disease was consulted in the meantime I started the patient on Merrem and I discontinued his Zosyn. Patient may need a PICC line, and possibly outpatient course of antibiotics which will be decided upon by infectious disease on the case. Pulmonary-talavera the patient is feeling better breathing easier, hardly any cough no wheezing no fever no chills. Reevaluated today on 08/03/2020, patient is doing well, I cleared him for discharge yesterday, as long as the patient could get IV antibiotics on outpatient basis. Patient was seen by ID on the case, and recommended Invanz 1 g daily for another 7-10 days hoping the patient could get a PICC line and this could be done at home. Clinically again the patient is doing great, asymptomatic. Objective - Vital Signs Vital signs: Vital Signs Temp 98.6 F 08/03/20 08:03 Pulse 82 08/03/20 08:39 Resp 18 08/03/20 08:03 BP 124/73 08/03/20 08:03 Pulse Ox 97 08/03/20 08:03 Intake & Output 08/02/20 08/03/20 08/03/20 18:59 06:59 18:59 Intake Total 300 300 Output Total 200 800 Balance 100 -800 300 Intake: Oral 300 300 Output: Urine 200 800 Other: Voiding Method Urinal Urinal Urinal # Voids 2 - Exam GENERAL EXAM: Revealed 45-year-old white male, obese, on room air Head: Atraumatic, normocephalic. EENT: PERRLA, EOMI, nonicteric, no neck masses, moist mucous membranes. CHEST: No chest wall deformity. Symmetrical chest expansion. LUNGS: Symmetrical chest expansion, clear throughout no crackles or rhonchi or wheezes CVS: S1 and S2 normal with no audible murmur, regular rhythm. ABDOMEN: No hepatosplenomegaly, normal bowel sounds, no guarding or rigidity. Musculoskeletal: No deformities or limitation in range of motion. SKIN: No rashes CENTRAL NERVOUS SYSTEM: Alert and oriented 3 no gross focal deficit. Psychiatric: Normal mood affect and normal mental status examination. EXTREMITIES: No clubbing edema or cyanosis. Good pulses bilaterally. - Labs CBC & Chem 7: 08/03/20 05:20 08/03/20 05:20 Labs: Abnormal Lab Results - Last 24 Hours (Table) 08/02/20 08/02/20 08/02/20 Range/Units 11:54 17:46 21:12 MCHC (31.0-37.0) g/dL Plt Count (150-450) k/uL Neutrophils # (1.3-7.7) k/uL Sodium (137-145) mmol/L Potassium (3.5-5.1) mmol/L Chloride (98-107) mmol/L Carbon Dioxide (22-30) mmol/L BUN (9-20) mg/dL Glucose (74-99) mg/dL POC Glucose (mg/dL) 200 H 299 H 247 H (75-99) mg/dL 08/03/20 08/03/20 08/03/20 Range/Units 05:20 05:20 07:55 MCHC 30.7 L (31.0-37.0) g/dL Plt Count 102 L (150-450) k/uL Neutrophils # 8.8 H (1.3-7.7) k/uL Sodium 133 L (137-145) mmol/L Potassium 5.2 H (3.5-5.1) mmol/L Chloride 96 L (98-107) mmol/L Carbon Dioxide 33 H (22-30) mmol/L BUN 21 H (9-20) mg/dL Glucose 458 H (74-99) mg/dL POC Glucose (mg/dL) 348 H (75-99) mg/dL Microbiology - Last 24 Hours (Table) 07/27/20 17:35 Blood Culture - Final Blood No Growth after 144 hours 07/27/20 17:15 Blood Culture - Final Blood No Growth after 144 hours Assessment and Plan Assessment: Impression: Acute exacerbation of COPD. E. coli pneumonia/ESBL. Leukocytosis and thrombocytopenia secondary to above. Type 2 diabetes. Chronically elevated liver enzymes. History of seizure disorder. History of bipolar disorder. History of hepatitis C. Remote history of IV drug abuse. History of omentectomy and gastrectomy. Chronic nicotine dependence and tobacco dependence syndrome. Recommendation: Continue present course of bronchodilators including DuoNeb and Symbicort. Continue prednisone and to be tapered over 3 weeks.. Continue nicotine patches. Invanz 1 g daily for 10 days on outpatient basis. Cleared for discharge if antibiotics could be arranged for on outpatient basis. Continue nystatin for one more week. Will sign off and see when necessary Time with Patient: Less than 30
[2020-08-03 11:16] LABS: Erythrocyte Sedimentation Rate 8 mm/hr (0-15)
[2020-08-03 11:27] LABS: Glucose,Whole Blood 324 mg/dL (75-99)
[2020-08-03] MEDS ORDERED: INSULIN DETEMIR (LEVEMIR) 100 UNIT/ML SYR SQ ONE (11:45)
[2020-08-03] MEDS: predniSONE 20 MG TAB PO SCH (13:21)
[2020-08-03 16:45] LABS: Glucose,Whole Blood 155 mg/dL (75-99)
--- NOTE | 2020-08-03 17:09 | P.PN ---
Subjective This is a pleasant 45 years old male With past medical history of COPD, diabetes mellitus, GERD, seizure disorder, pancreatitis with pseudocyst, hepatitis C, previous IV drug abuse degenerative joint disease and chronic low back pain. Presents with signs symptoms of COPD with acute pneumonia. Today is been seen on the follow-up of the general medical floor, he was lying in bed comfortable, no respiratory distress, no chest pain or coughing. Patient is followed closely by pulmonary team and he is on Solu-Medrol 40 mg, Zosyn and insulin at 50 mL/h Sputum culture is growing E. coli she is ESBL. He has mild leukocytosis but no fever. He needs to get off oxygen via nasal cannula with saturation of 96% 08/02/2020 Patient is doing well clinically and his breathing is significantly improved since yesterday at or close to baseline, patient feeling is ready to go home, patient was cleared for discharge by pulmonary services however his sputum culture came back positive for ESBL E. coli and in view of his recent pneumonia during this admission, infectious disease consult was obtained for IV antibiotics upon discharge, PICC line disorder. Currently patient is covered with meropenem Possible discharge in 24-48 hours once management for outpatient antibiotics is setup 08/03/2020 Patient is doing well clinically, he is hemodynamically stable. Breathing is stable. No respiratory symptoms. His still on meropenem for he is infected with ESBL E. coli in his sputum. Plan is for PICC line on Wednesday and for 7-10 days per ID team. PICC line could not be placed due to weakened Objective - Vital Signs Vital signs: Vital Signs Temp 98 F 08/03/20 14:55 Pulse 71 08/03/20 14:55 Resp 17 08/03/20 14:55 BP 118/72 08/03/20 14:55 Pulse Ox 96 08/03/20 14:55 Intake & Output 08/02/20 08/03/20 08/03/20 18:59 06:59 18:59 Intake Total 300 700 Output Total 200 800 Balance 100 -800 700 Intake: Oral 300 700 Output: Urine 200 800 Other: Voiding Method Urinal Urinal Urinal # Voids 2 3 - Exam GENERAL: The patient is alert and oriented x3, not in any acute distress. Well developed, well nourished. HEENT: Pupils are round and equally reacting to light. EOMI. No scleral icterus. No conjunctival pallor. Normocephalic, atraumatic. No pharyngeal erythema. No thyromegaly. CARDIOVASCULAR: S1 and S2 present. No murmurs, rubs, or gallops. PULMONARY: Chest is clear to auscultation, no wheezing or crackles. ABDOMEN: Soft, nontender, nondistended, normoactive bowel sounds. No palpable organomegaly. MUSCULOSKELETAL: No joint swelling or deformity. EXTREMITIES: No cyanosis, clubbing, or pedal edema. NEUROLOGICAL: Gross neurological examination did not reveal any focal deficits. SKIN: No rashes. no petechiae. - Labs CBC & Chem 7: 08/03/20 05:20 08/03/20 05:20 Labs: Abnormal Lab Results - Last 24 Hours (Table) 08/02/20 08/02/20 08/03/20 Range/Units 17:46 21:12 05:20 MCHC 30.7 L (31.0-37.0) g/dL Plt Count 102 L (150-450) k/uL Neutrophils # 8.8 H (1.3-7.7) k/uL Sodium (137-145) mmol/L Potassium (3.5-5.1) mmol/L Chloride (98-107) mmol/L Carbon Dioxide (22-30) mmol/L BUN (9-20) mg/dL Glucose (74-99) mg/dL POC Glucose (mg/dL) 299 H 247 H (75-99) mg/dL 08/03/20 08/03/20 08/03/20 Range/Units 05:20 07:55 11:25 MCHC (31.0-37.0) g/dL Plt Count (150-450) k/uL Neutrophils # (1.3-7.7) k/uL Sodium 133 L (137-145) mmol/L Potassium 5.2 H (3.5-5.1) mmol/L Chloride 96 L (98-107) mmol/L Carbon Dioxide 33 H (22-30) mmol/L BUN 21 H (9-20) mg/dL Glucose 458 H (74-99) mg/dL POC Glucose (mg/dL) 348 H 324 H (75-99) mg/dL 08/03/20 Range/Units 16:44 MCHC (31.0-37.0) g/dL Plt Count (150-450) k/uL Neutrophils # (1.3-7.7) k/uL Sodium (137-145) mmol/L Potassium (3.5-5.1) mmol/L Chloride (98-107) mmol/L Carbon Dioxide (22-30) mmol/L BUN (9-20) mg/dL Glucose (74-99) mg/dL POC Glucose (mg/dL) 155 H (75-99) mg/dL Microbiology - Last 24 Hours (Table) 07/27/20 17:35 Blood Culture - Final Blood No Growth after 144 hours 07/27/20 17:15 Blood Culture - Final Blood No Growth after 144 hours Assessment and Plan Assessment: Acute COPD exacerbation Community-acquired pneumonia secondary to ESBL E. coli Metabolic encephalopathy, resolved and patient back to baseline mental status Type 2 diabetes mellitus History of seizure disorder History of GERD History of pancreatitis with pseudocyst History of hepatitis C Previous IV drug abuse History of chronic back pain and degenerative joint disease Plan: This is a pleasant 45 years old male who presents with COPD and pneumonia. Continue with MEDROL, meropenem. Discontinue IV fluids. Pulmonary team on the case Patient will need a PICC line and discharge antibiotics as per ID team Labs and medication were reviewed.. Continue same treatment. Continue with symptomatic treatment. Resume home medication. Monitor lytes and vitals. DVT and GI prophylaxis. Further recommendationsas per clinical course of the patient DVT prophylaxis: Subcutaneous Lovenox GI Prophylaxis: Ppi
--- NOTE | 2020-08-03 19:08 | PN ---
PROGRESS NOTE DATE OF SERVICE: 08/03/2020 REASON FOR FOLLOW UP: ESBL E. coli pneumonia. INTERVAL HISTORY: The patient is currently afebrile. The patient is breathing more comfortably. Patient denies having any chest pain. He did have a cough, not bringing up any sputum. No abdominal pain or diarrhea. PHYSICAL EXAMINATION: Blood pressure 118/72 with a pulse of 71, temperature 98. He is 96% on 2 L nasal cannula. General description is a middle-aged male up in the chair in no distress. Respiratory system: Unlabored breathing with decreased intensity of breath sounds. No wheeze. Heart: S1, S2. Regular rate and rhythm. Abdomen soft, no tenderness. LABS: Hemoglobin 13.1, white count 10.3, BUN of 21, creatinine 0.75. DIAGNOSTIC IMPRESSION AND PLAN: Patient with ESBL E coli positive sputum culture, admitted to the hospital with pneumonia involving the lingula and the right middle lobe with overall clinical improvement with Meropenem, to continue and finish therapy with IV ( ) for about 10 days on discharge. Continue supportive care. MMODL / IJN: [id number] /
[2020-08-03 21:03] LABS: Glucose,Whole Blood 318 mg/dL (75-99)
[2020-08-03] MEDS: INSULIN DETEMIR (LEVEMIR) 100 UNIT/ML SYR SQ SCH (23:17)
[2020-08-03] MEDS: OLANZapine 10 MG TAB PO SCH (23:17)
[2020-08-03] MEDS: MIRTAZAPINE 15 MG TAB PO SCH (23:17)
[2020-08-04] MEDS: MEROPENEM 1 GM in SODIUM CHLORIDE 0.9% 100 ML IVPB SCH ×3 (00:07→16:40)
[2020-08-04 07:01] LABS: Glucose,Whole Blood 295 mg/dL (75-99)
[2020-08-04 07:12] LABS: African American GFR (CKD) >90 (>60 ml/min/1.73 sqM); Anion Gap 4 mmol/L; Blood Urea Nitrogen 21 mg/dL (9-20); Calcium 8.2 mg/dL (8.4-10.2); Carbon Dioxide 31 mmol/L (22-30); Chloride 100 mmol/L (98-107); Glucose 322 mg/dL (74-99); Non-African American GFR(CKD) >90 (>60 ml/min/1.73 sqM); Potassium 3.7 mmol/L (3.5-5.1); Sodium 135 mmol/L (137-145)
[2020-08-04] MEDS: predniSONE 20 MG TAB PO SCH (07:26)
[2020-08-04] MEDS: NICOTINE 21MG/24HR PATCH TRANSDERM SCH (07:26)
[2020-08-04] MEDS: ENOXAPARIN 40 MG/0.4 ML SYRINGE SQ SCH (07:26)
[2020-08-04] MEDS: NYSTATIN 100,000 UNIT/ML SUSP 500,000 UNIT/5 ML CUP PO SCH ×4 (07:27→21:32)
[2020-08-04] MEDS: INSULIN ASPART (NovoLOG) 100 UNIT/ML VIAL SQ SCH ×7 (08:11→21:33)
[2020-08-04] MEDS: SUBOXONE SUBLINGUAL SCH ×2 (08:11→21:33)
[2020-08-04] MEDS: SYMBICORT 160-4.5 MCG INHALER INHALATION SCH ×2 (08:20→20:18)
[2020-08-04] MEDS: IPRATROPIUM-ALBUTEROL 3 ML NEB INHALATION SCH ×4 (08:20→20:18)
[2020-08-04] MEDS: PANTOPRAZOLE 40 MG TABLET PO SCH ×2 (10:49→21:32)
[2020-08-04 12:16] LABS: Glucose,Whole Blood 156 mg/dL (75-99)
[2020-08-04 17:47] LABS: Glucose,Whole Blood 299 mg/dL (75-99)
[2020-08-04 20:36] LABS: Glucose,Whole Blood 241 mg/dL (75-99)
--- NOTE | 2020-08-04 20:51 | P.PN ---
Subjective This is a pleasant 45 years old male With past medical history of COPD, diabetes mellitus, GERD, seizure disorder, pancreatitis with pseudocyst, hepatitis C, previous IV drug abuse degenerative joint disease and chronic low back pain. Presents with signs symptoms of COPD with acute pneumonia. Today is been seen on the follow-up of the general medical floor, he was lying in bed comfortable, no respiratory distress, no chest pain or coughing. Patient is followed closely by pulmonary team and he is on Solu-Medrol 40 mg, Zosyn and insulin at 50 mL/h Sputum culture is growing E. coli she is ESBL. He has mild leukocytosis but no fever. He needs to get off oxygen via nasal cannula with saturation of 96% 08/02/2020 Patient is doing well clinically and his breathing is significantly improved since yesterday at or close to baseline, patient feeling is ready to go home, patient was cleared for discharge by pulmonary services however his sputum culture came back positive for ESBL E. coli and in view of his recent pneumonia during this admission, infectious disease consult was obtained for IV antibiotics upon discharge, PICC line disorder. Currently patient is covered with meropenem Possible discharge in 24-48 hours once management for outpatient antibiotics is setup 08/03/2020 Patient is doing well clinically, he is hemodynamically stable. Breathing is stable. No respiratory symptoms. His still on meropenem for he is infected with ESBL E. coli in his sputum. Plan is for PICC line on Wednesday and for 7-10 days per ID team. PICC line could not be placed due to weakened 08/04/2020 Patient with no subcu symptoms, no respiratory symptoms and his breathing quietly. No labs from today however his glucose start improving and 200 and he said of 300s yesterday after switching his Solu-Medrol to prednisone 40 mg daily. Patie nt sugar is To be controlled on insulin sliding scale on the top of his regimen. Discussed with the patient the need to monitor his glucose as an outpatient and he might decrease his insulin requirements as he stops steroids and he agrees to monitor his records and make necessary adjustments The plan for him tomorrow is to get PICC line and then discharge on Invanz 10 days per ID team recommendation Currently he is on meropenem and prednisone 40 mg daily Objective - Vital Signs Vital signs: Vital Signs Temp 97.8 F 08/04/20 20:00 Pulse 82 08/04/20 20:28 Resp 18 08/04/20 20:28 BP 130/77 08/04/20 20:00 Pulse Ox 98 08/04/20 20:00 Intake & Output 08/04/20 08/04/20 08/05/20 06:59 18:59 06:59 Intake Total 1297 Output Total 550 Balance -550 1297 Intake: Oral 1297 Output: Urine 550 Other: Voiding Method Urinal # Voids 2 4 - Exam GENERAL: The patient is alert and oriented x3, not in any acute distress. Well developed, well nourished. HEENT: Pupils are round and equally reacting to light. EOMI. No scleral icterus. No conjunctival pallor. Normocephalic, atraumatic. No pharyngeal erythema. No thyromegaly. CARDIOVASCULAR: S1 and S2 present. No murmurs, rubs, or gallops. PULMONARY: Chest is clear to auscultation, no wheezing or crackles. ABDOMEN: Soft, nontender, nondistended, normoactive bowel sounds. No palpable organomegaly. MUSCULOSKELETAL: No joint swelling or deformity. EXTREMITIES: No cyanosis, clubbing, or pedal edema. NEUROLOGICAL: Gross neurological examination did not reveal any focal deficits. SKIN: No rashes. no petechiae. - Labs CBC & Chem 7: 08/03/20 05:20 08/04/20 05:56 Labs: Abnormal Lab Results - Last 24 Hours (Table) 08/03/20 08/04/20 08/04/20 Range/Units 21:01 05:56 06:52 Sodium 135 L (137-145) mmol/L Carbon Dioxide 31 H (22-30) mmol/L BUN 21 H (9-20) mg/dL Glucose 322 H (74-99) mg/dL POC Glucose (mg/dL) 318 H 295 H (75-99) mg/dL Calcium 8.2 L (8.4-10.2) mg/dL 08/04/20 08/04/20 08/04/20 Range/Units 12:14 17:44 20:33 Sodium (137-145) mmol/L Carbon Dioxide (22-30) mmol/L BUN (9-20) mg/dL Glucose (74-99) mg/dL POC Glucose (mg/dL) 156 H 299 H 241 H (75-99) mg/dL Calcium (8.4-10.2) mg/dL Assessment and Plan Assessment: Acute COPD exacerbation Community-acquired pneumonia secondary to ESBL E. coli Metabolic encephalopathy, resolved and patient back to baseline mental status Type 2 diabetes mellitus History of seizure disorder History of GERD History of pancreatitis with pseudocyst History of hepatitis C Previous IV drug abuse History of chronic back pain and degenerative joint disease Plan: This is a pleasant 45 years old male who presents with COPD and pneumonia. Continue with MEDROL, meropenem. Discontinue IV fluids. Pulmonary team on the case Patient will need a PICC line and discharge antibiotics as per ID team Labs and medication were reviewed.. Continue same treatment. Continue with symptomatic treatment. Resume home medication. Monitor lytes and vitals. DVT and GI prophylaxis. Further recommendationsas per clinical course of the patient DVT prophylaxis: Subcutaneous Lovenox GI Prophylaxis: Ppi
[2020-08-04] MEDS: lamoTRIgine 100 MG TAB PO SCH (21:32)
[2020-08-04] MEDS: MIRTAZAPINE 15 MG TAB PO SCH (21:32)
[2020-08-04] MEDS: OLANZapine 10 MG TAB PO SCH (21:32)
[2020-08-04] MEDS: INSULIN DETEMIR (LEVEMIR) 100 UNIT/ML SYR SQ SCH (21:33)
--- NOTE | 2020-08-04 22:16 | PN ---
PROGRESS NOTE DATE OF SERVICE: 08/04/2020. REASON FOR FOLLOWUP: ESBL E coli pneumonia. INTERVAL HISTORY: Patient is currently afebrile. Patient is breathing comfortably. The patient denies having any chest pain or shortness of breath. The patient's cough has decreased in intensity. No vomiting. No abdominal pain. No diarrhea. PHYSICAL EXAMINATION: Blood pressure 116/74, pulse of 80, temperature 96.7, he is 96% on 6 L nasal cannula. General description is a middle-aged male up in the chair in no distress. Respiratory system: Unlabored breathing, decreased intensity of breath sounds. No wheeze. HEART: S1, S2. Regular rate and rhythm. ABDOMEN: Soft, no tenderness. LABORATORY DATA: BUN of 21, creatinine 0.68. DIAGNOSTIC IMPRESSION AND PLAN: Patient with ESBL E coli pneumonia in this patient clinically responded to meropenem transition to Invanz 1 g daily for another 10 days to finish a course of therapy and close outpatient followup. MMODL / IJN: [id number] /
[2020-08-05] MEDS: MEROPENEM 1 GM in SODIUM CHLORIDE 0.9% 100 ML IVPB SCH ×2 (00:22→08:07)
[2020-08-05 07:19] LABS: Glucose,Whole Blood 99 mg/dL (75-99)
[2020-08-05] MEDS: INSULIN ASPART (NovoLOG) 100 UNIT/ML VIAL SQ SCH ×4 (07:53→13:12)
[2020-08-05] MEDS: NICOTINE 21MG/24HR PATCH TRANSDERM SCH (08:05)
[2020-08-05] MEDS: predniSONE 20 MG TAB PO SCH (08:06)
[2020-08-05] MEDS: PANTOPRAZOLE 40 MG TABLET PO SCH (08:06)
[2020-08-05] MEDS: NYSTATIN 100,000 UNIT/ML SUSP 500,000 UNIT/5 ML CUP PO SCH ×2 (08:07→13:54)
[2020-08-05] MEDS: ENOXAPARIN 40 MG/0.4 ML SYRINGE SQ SCH (08:07)
[2020-08-05] MEDS: SUBOXONE SUBLINGUAL SCH (09:17)
[2020-08-05] MEDS: SYMBICORT 160-4.5 MCG INHALER INHALATION SCH (09:20)
[2020-08-05] MEDS: IPRATROPIUM-ALBUTEROL 3 ML NEB INHALATION SCH ×2 (09:20→12:37)
[2020-08-05 11:42] LABS: Glucose,Whole Blood 384 mg/dL (75-99)
[2020-08-05] MEDS ORDERED: ERTAPENEM 1 GM in SODIUM CHLORIDE 0.9% 50 ML IVPB SCH (13:30)
[2020-08-05 14:39] VITALS: BP 116/73; PULSE 91; RESP 20; TEMP 97.9
--- NOTE | 2020-08-05 15:45 | PN ---
PROGRESS NOTE DATE OF SERVICE: 08/05/2020 REASON FOR FOLLOWUP: ESBL E coli pneumonia. INTERVAL HISTORY: The patient is currently afebrile. The patient is breathing comfortably. The patient denies having any chest pain or shortness of breath or cough. Currently on room air. No abdominal pain or diarrhea. PHYSICAL EXAMINATION: Blood pressure 113/73 with a pulse of 91, temperature 97.9. He is 94% on room air. General description is a middle-aged male up in the chair in no distress. RESPIRATORY SYSTEM: Unlabored breathing with decreased intensity of breath sounds. No wheeze. HEART: S1, S2. Regular rate and rhythm. ABDOMEN: Soft. No tenderness. LABS: No new labs have been obtained today. White count was normal at 10.3 yesterday. Sputum is ESBL. Blood culture negative. DIAGNOSTIC IMPRESSION AND PLAN: Patient with extended-spectrum beta-lactamase Escherichia coli pneumonia which clinically improved on meropenem. He will transition to Invanz 1 gram daily for another 7 days to finish his 10-day course of therapy. The patient did have previous history of IV drug use. Currently denies any active drug use. Patient is aware of the fact that he cannot inject anything in the midline, as it could lead to immediate . The patient understands. He is awake and alert MMODL / IJN: [id number] /
== END 2020-08-05 15:41 | disposition home or self-care (01) | DRG 871 ==
LOC: EC 16:17 → 6NMEDSUR 20:06 → OBSVTOIN 07-29 08:52
PROVIDERS: ADMIT Hospitalist; ATTEND Internal Medicine
PROC: 05HF33Z Insertion of Infusion Device into Left Cephalic Vein, Percutaneous Approach (ICD-10-PCS; principal; 2020-08-05 07:30)
DX: A41.9 Sepsis, unspecified organism (principal); J15.5 Pneumonia due to Escherichia coli; G93.41 Metabolic encephalopathy; K86.1 Other chronic pancreatitis; F31.30 Bipolar disorder, current episode depressed, mild or moderate severity, unspecified; Z16.12 Extended spectrum beta lactamase (ESBL) resistance; J44.1 Chronic obstructive pulmonary disease with (acute) exacerbation; J44.0 Chronic obstructive pulmonary disease with (acute) lower respiratory infection; K86.81 Exocrine pancreatic insufficiency; D69.59 Other secondary thrombocytopenia; K75.9 Inflammatory liver disease, unspecified; E11.65 Type 2 diabetes mellitus with hyperglycemia; Z79.4 Long term (current) use of insulin; G40.909 Epilepsy, unspecified, not intractable, without status epilepticus; F14.11 Cocaine abuse, in remission; F11.10 Opioid abuse, uncomplicated; Z20.822 Contact with and (suspected) exposure to COVID-19; R09.02 Hypoxemia; K21.9 Gastro-esophageal reflux disease without esophagitis; G89.29 Other chronic pain; M19.90 Unspecified osteoarthritis, unspecified site; M54.5 Low back pain; F41.9 Anxiety disorder, unspecified; E66.9 Obesity, unspecified; Z68.38 Body mass index [BMI] 38.0-38.9, adult; F17.210 Nicotine dependence, cigarettes, uncomplicated; Z71.6 Tobacco abuse counseling; Z79.51 Long term (current) use of inhaled steroids; Z79.899 Other long term (current) drug therapy; Z90.49 Acquired absence of other specified parts of digestive tract; Z87.19 Personal history of other diseases of the digestive system; Z87.09 Personal history of other diseases of the respiratory system; Z86.69 Personal history of other diseases of the nervous system and sense organs; Z87.01 Personal history of pneumonia (recurrent); Z90.3 Acquired absence of stomach [part of]; Z86.19 Personal history of other infectious and parasitic diseases; Z98.890 Other specified postprocedural states; Z71.3 Dietary counseling and surveillance; Z88.5 Allergy status to narcotic agent; Z88.8 Allergy status to other drugs, medicaments and biological substances; Z91.011 Allergy to milk products; Z81.1 Family history of alcohol abuse and dependence; Z82.49 Family history of ischemic heart disease and other diseases of the circulatory system; Z81.8 Family history of other mental and behavioral disorders; Z84.1 Family history of disorders of kidney and ureter; Z83.1 Family history of other infectious and parasitic diseases
CPT/HCPCS: 36410; 36415; 70450; 71046; 71275; 76937; 80048; 80053; 80202; 81003; 82140; 83605; 83880; 84484; 85025; 85379; 85610; 85652; 85730; 86140; 87040; 87070; 87077; 87086; 87186; 87205; 87635; 93005; 94640; 94760; 96360; 99285

== ENCOUNTER 2020-08-17 17:10 | Emergency (ER) | payer MEDICARE ==
--- NOTE | 2020-08-17 18:27 | XR ---
EXAMINATION TYPE: XR chest 2V DATE OF EXAM: 08/17/2020 COMPARISON: 07/27/2020 HISTORY: Short of breath TECHNIQUE: FINDINGS: A small area of linear density left lung base. The other lung joyce are clear. Heart and m ediastinum are normal. There are no hilar masses. IMPRESSION: Mild subsegmental atelectasis left lung base which is new compared to old exam. There is clearing of the atelectasis in the lingula left upper lobe compared to old exam. Normal heart.
[2020-08-17 18:30] LABS: Basophils % (A) 0 %; Eosinophils # (A) 0.2 k/uL (0-0.7); Eosinophils % (A) 3 %; HCT 37.2 % (39.0-53.0); HGB 12.4 gm/dL (13.0-17.5); Lymphocytes # (A) 1.7 k/uL (1.0-4.8); Lymphocytes % (A) 22 %; MCH 29.5 pg (25.0-35.0); MCHC 33.4 g/dL (31.0-37.0); MCV 88.4 fL (80.0-100.0); Monocytes # (A) 0.3 k/uL (0-1.0); Monocytes % (A) 4 %; Neutrophils # (A) 5.3 k/uL (1.3-7.7); Neutrophils % (A) 70 %; RBC 4.21 m/uL (4.30-5.90); RDW 14.5 % (11.5-15.5); WBC 7.6 k/uL (3.8-10.6)
[2020-08-17 18:33] LABS: Platelet Count 84 k/uL (150-450)
[2020-08-17 18:42] LABS: Partial Thromboplastin Time 22.4 sec (22.0-30.0); Prothrombin Time 10.6 sec (9.0-12.0)
[2020-08-17 18:47] LABS: ALT 88 U/L (4-49); AST 65 U/L (17-59); African American GFR (CKD) >90 (>60 ml/min/1.73 sqM); Albumin 3.2 g/dL (3.5-5.0); Alkaline Phosphatase 214 U/L (38-126); Anion Gap 5 mmol/L; Blood Urea Nitrogen 17 mg/dL (9-20); Calcium 8.6 mg/dL (8.4-10.2); Carbon Dioxide 31 mmol/L (22-30); Chloride 103 mmol/L (98-107); Glucose 205 mg/dL (74-99); Non-African American GFR(CKD) >90 (>60 ml/min/1.73 sqM); Potassium 3.5 mmol/L (3.5-5.1); Sodium 139 mmol/L (137-145); Total Bilirubin 0.6 mg/dL (0.2-1.3); Total Protein 5.6 g/dL (6.3-8.2)
--- NOTE | 2020-08-17 19:01 | ED ---
General Adult HPI - General Chief complaint: Recheck/Abnormal Lab/Rx Stated complaint: hand/face/feet swelling Time Seen by Provider: 08/17/20 17:44 Source: patient Mode of arrival: ambulatory Limitations: no limitations - History of Present Illness Initial comments: This patient is a 45-year-old man who presents with complaint that it feels like his wrists and hands as well as the bilateral ankles and feet feel swollen. He states that this is been coming on gradually over the past 3 days. He has not noticed systemic symptoms like fever or chills. No chest pain, dyspnea, cough. No change in urination or bowel movements. Patient's recent history is notable for having had pneumonia diagnosed couple of weeks ago and he was taking IV antibiotics up until one week ago. He did not have any of the symptoms are related to hands and feet while he was on the medication or in the hospital. Onset/Timin -: days(s) Location: face, upper extremity (Bilateral hands), lower extremity (Bilateral feet) Severity scale (1-10): 1 Quality: dull Consistency: constant Improves with: none Worsens with: none Treatments Prior to Arrival: none - Related Data Home Medications Medication Instructions Recorded Confirmed Mirtazapine [Remeron] 15 mg PO HS 11/23/16 08/12/20 lamoTRIgine [LaMICtal] 100 mg PO HS 03/13/17 08/12/20 OLANZapine [ZyPREXA] 10 mg PO HS 03/28/18 08/12/20 Buprenorphine HCl/Naloxone HCl 1 tab SL BID 01/27/20 08/12/20 [Buprenorphin-Naloxon 8-2 mg Sl] INSULIN ASPART (NovoLOG) [NovoLOG 21 unit SQ AC-TID 07/21/20 08/12/20 (formulary)] Insulin Glargine [Lantus] 60 unit SQ HS 07/21/20 08/12/20 Omeprazole 20 mg PO BID 07/21/20 08/12/20 Albuterol Inhaler [Ventolin Hfa 1 puff INHALATION RT-QID PRN 07/27/20 08/12/20 Inhaler] Budesonide-Formot 160-4.5 Mcg 2 puff INHALATION RT-BID 07/27/20 08/12/20 [Symbicort 160-4.5 Mcg Inhaler] predniSONE See Taper PO DIRECTED 07/27/20 08/12/20 Previous Rx's Medication Instructions Recorded Cefdinir [Omnicef] 300 mg PO BID 7 Days #14 cap 07/26/20 Nicotine 21Mg/24Hr Patch [Habitrol] 1 patch TRANSDERM DAILY 30 Days 07/26/20 #30 patch Ertapenem [INVanz] 1 gm IVPB Q24H #7 bag 08/05/20 Nystatin 100,000Unit/gm Cream 1 applic TOPICAL DAILY PRN 7 Days 08/05/20 [Mycostatin Cream] #7 applic predniSONE 10 mg PO DIRECTED #24 tab 08/05/20 Allergies Allergy/AdvReac Type Severity Reaction Status Date / Time codeine Allergy Swelling Verified 08/17/20 17:14 furosemide [From Lasix] Allergy Rash/Hives Verified 08/17/20 17:14 haloperidol [From Haldol] Allergy Unknown Verified 08/17/20 17:14 prochlorperazine Allergy Swelling Verified 08/17/20 17:14 Review of Systems ROS Statement: Those systems with pertinent positive or pertinent negative responses have been documented in the HPI. ROS Other: All systems not noted in ROS Statement are negative. Constitutional: Denies: fever, chills Respiratory: Denies: cough, dyspnea Cardiovascular: Reports: as per HPI, edema. Denies: chest pain, palpitations Gastrointestinal: Denies: abdominal pain, vomiting, diarrhea Genitourinary: Denies: dysuria, hematuria Musculoskeletal: Denies: back pain Skin: Denies: rash Neurological: Denies: headache, weakness, numbness, paresthesias 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 with surgery/difficulty with incision healing/past cellulitis abdomin, IDDM type II, bronchitis, R lung spontaneous pneumo with surgery, last seizure 2011, hepatitis C with interferon over 6 yrs ago, past IV drug abuse-no drugs for over one year except for one slip/on suboxone, DDD, occasional low back pain, History of Any Multi-Drug Resistant Organisms: None Reported Past Surgical History: Appendectomy, Cholecystectomy Additional Past Surgical History / Comment(s): 2018 lap/laparotomy/partial omenectomy/cystogastrectomy/lysis of adhesions, 2019 open incision hernia repair with mesh-difficulty with incision healing since, EGD, colonoscopy, R lung thorascopy/decortication, bilateral eye RK for vision correction. Past Anesthesia/Blood Transfusion Reactions: No Reported Reaction Past Psychological History: Anxiety, Bipolar, Depression Smoking Status: Current every day smoker Past Alcohol Use History: None Reported Past Drug Use History: None Reported - Past Family History Brother(s) Additional Family Medical History / Comment(s): Chronic alcoholism in 2 brothers Sister(s) Additional Family Medical History / Comment(s): Chronic alcoholism Daughter(s) Family Medical History: No Reported History Additional Family Medical History / Comment(s): One daughter healthy Son(s) Family Medical History: No Reported History Additional Family Medical History / Comment(s): One son healthy Father History Unknown: Yes Family Medical History: AICD/Pacemaker, Myocardial Infarction ([place]), Renal Disease Additional Family Medical History / Comment(s): Schizophrenia. Per patient, his father at the age of 59 from renal failure. Mother History Unknown: Yes Family Medical History: Hypertension Additional Family Medical History / Comment(s): HPV General Exam Limitations: no limitations General appearance: alert, in no apparent distress Head exam: Present: atraumatic, normocephalic Eye exam: Present: normal appearance. Absent: scleral icterus, conjunctival injection ENT exam: Present: normal oropharynx Neck exam: Present: normal inspection, full ROM Respiratory exam: Present: normal lung sounds bilaterally. Absent: respiratory distress, wheezes, rales, rhonchi, stridor Cardiovascular Exam: Present: regular rate, normal rhythm, normal heart sounds. Absent: systolic murmur, diastolic murmur, rubs, gallop GI/Abdominal exam: Present: soft. Absent: distended, tenderness, guarding, rebound, mass Extremities exam: Present: normal inspection, normal capillary refill. Absent: pedal edema, calf tenderness Back exam: Present: normal inspection. Absent: CVA tenderness (R), CVA tenderness (L) Neurological exam: Present: alert Skin exam: Present: warm, dry, intact, normal color. Absent: rash Course Vital Signs 08/17/20 08/17/20 17:11 20:24 Temperature 98.2 F 98.9 F Pulse Rate 103 H 93 Respiratory 18 20 Rate Blood Pressure 123/63 115/66 O2 Sat by Pulse 96 97 Oximetry Medical Decision Making - Medical Decision Making Patient's 45-year-old man who presents with mild edema of the bilateral ankles and bilateral hands. Patient has hypoalbuminemia and suspect that this edema and hypoalbuminemia due to recent pneumonia. Discussed findings with patient and he is desiring to go home. Discussed low-sodium and increased protein intake for next few days followed by recheck of albumin. Appropriate further care and follow-up as well as return parameters including but not limited to increasing edema, any shortness of breath or cough, change in urination or other symptoms. - Lab Data Result diagrams: 08/17/20 18:05 08/17/20 18:05 Lab Results 08/17/20 08/17/20 08/17/20 Range/Units 18:05 18:05 18:05 WBC 7.6 (3.8-10.6) k/uL RBC 4.21 L (4.30-5.90) m/uL Hgb 12.4 L (13.0-17.5) gm/dL Hct 37.2 L (39.0-53.0) % MCV 88.4 (80.0-100.0) fL MCH 29.5 (25.0-35.0) pg MCHC 33.4 (31.0-37.0) g/dL RDW 14.5 (11.5-15.5) % Plt Count 84 L (150-450) k/uL MPV 10.0 Neutrophils % 70 % Lymphocytes % 22 % Monocytes % 4 % Eosinophils % 3 % Basophils % 0 % Neutrophils # 5.3 (1.3-7.7) k/uL Lymphocytes # 1.7 (1.0-4.8) k/uL Monocytes # 0.3 (0-1.0) k/uL Eosinophils # 0.2 (0-0.7) k/uL Basophils # 0.0 (0-0.2) k/uL PT 10.6 (9.0-12.0) sec INR 1.0 (<1.2) APTT 22.4 (22.0-30.0) sec Sodium 139 (137-145) mmol/L Potassium 3.5 (3.5-5.1) mmol/L Chloride 103 (98-107) mmol/L Carbon Dioxide 31 H (22-30) mmol/L Anion Gap 5 mmol/L BUN 17 (9-20) mg/dL Creatinine 0.55 L (0.66-1.25) mg/dL Est GFR (CKD-EPI)AfAm >90 (>60 ml/min/1.73 sqM) Est GFR (CKD-EPI)NonAf >90 (>60 ml/min/1.73 sqM) Glucose 205 H (74-99) mg/dL Plasma Lactic Acid Mynor (0.7-2.0) mmol/L Calcium 8.6 (8.4-10.2) mg/dL Total Bilirubin 0.6 (0.2-1.3) mg/dL AST 65 H (17-59) U/L ALT 88 H (4-49) U/L Alkaline Phosphatase 214 H (38-126) U/L Troponin I (0.000-0.034) ng/mL NT-Pro-B Natriuret Pep pg/mL Total Protein 5.6 L (6.3-8.2) g/dL Albumin 3.2 L (3.5-5.0) g/dL Urine Color Urine Appearance (Clear) Urine pH (5.0-8.0) Ur Specific [place] (1.001-1.035) Urine Protein (Negative) Urine Glucose (UA) (Negative) Urine Ketones (Negative) Urine Blood (Negative) Urine Nitrite (Negative) Urine Bilirubin (Negative) Urine Urobilinogen (<2.0) mg/dL Ur Leukocyte Esterase (Negative) 08/17/20 08/17/20 08/17/20 Range/Units 18:05 18:05 18:05 WBC (3.8-10.6) k/uL RBC (4.30-5.90) m/uL Hgb (13.0-17.5) gm/dL Hct (39.0-53.0) % MCV (80.0-100.0) fL MCH (25.0-35.0) pg MCHC (31.0-37.0) g/dL RDW (11.5-15.5) % Plt Count (150-450) k/uL MPV Neutrophils % % Lymphocytes % % Monocytes % % Eosinophils % % Basophils % % Neutrophils # (1.3-7.7) k/uL Lymphocytes # (1.0-4.8) k/uL Monocytes # (0-1.0) k/uL Eosinophils # (0-0.7) k/uL Basophils # (0-0.2) k/uL PT (9.0-12.0) sec INR (<1.2) APTT (22.0-30.0) sec Sodium (137-145) mmol/L Potassium (3.5-5.1) mmol/L Chloride (98-107) mmol/L Carbon Dioxide (22-30) mmol/L Anion Gap mmol/L BUN (9-20) mg/dL Creatinine (0.66-1.25) mg/dL Est GFR (CKD-EPI)AfAm (>60 ml/min/1.73 sqM) Est GFR (CKD-EPI)NonAf (>60 ml/min/1.73 sqM) Glucose (74-99) mg/dL Plasma Lactic Acid Mynor 2.5 H* (0.7-2.0) mmol/L Calcium (8.4-10.2) mg/dL Total Bilirubin (0.2-1.3) mg/dL AST (17-59) U/L ALT (4-49) U/L Alkaline Phosphatase (38-126) U/L Troponin I <0.012 (0.000-0.034) ng/mL NT-Pro-B Natriuret Pep 89 pg/mL Total Protein (6.3-8.2) g/dL Albumin (3.5-5.0) g/dL Urine Color Urine Appearance (Clear) Urine pH (5.0-8.0) Ur Specific [place] (1.001-1.035) Urine Protein (Negative) Urine Glucose (UA) (Negative) Urine Ketones (Negative) Urine Blood (Negative) Urine Nitrite (Negative) Urine Bilirubin (Negative) Urine Urobilinogen (<2.0) mg/dL Ur Leukocyte Esterase (Negative) 08/17/20 Range/Units 20:10 WBC (3.8-10.6) k/uL RBC (4.30-5.90) m/uL Hgb (13.0-17.5) gm/dL Hct (39.0-53.0) % MCV (80.0-100.0) fL MCH (25.0-35.0) pg MCHC (31.0-37.0) g/dL RDW (11.5-15.5) % Plt Count (150-450) k/uL MPV Neutrophils % % Lymphocytes % % Monocytes % % Eosinophils % % Basophils % % Neutrophils # (1.3-7.7) k/uL Lymphocytes # (1.0-4.8) k/uL Monocytes # (0-1.0) k/uL Eosinophils # (0-0.7) k/uL Basophils # (0-0.2) k/uL PT (9.0-12.0) sec INR (<1.2) APTT (22.0-30.0) sec Sodium (137-145) mmol/L Potassium (3.5-5.1) mmol/L Chloride (98-107) mmol/L Carbon Dioxide (22-30) mmol/L Anion Gap mmol/L BUN (9-20) mg/dL Creatinine (0.66-1.25) mg/dL Est GFR (CKD-EPI)AfAm (>60 ml/min/1.73 sqM) Est GFR (CKD-EPI)NonAf (>60 ml/min/1.73 sqM) Glucose (74-99) mg/dL Plasma Lactic Acid Mynor (0.7-2.0) mmol/L Calcium (8.4-10.2) mg/dL Total Bilirubin (0.2-1.3) mg/dL AST (17-59) U/L ALT (4-49) U/L Alkaline Phosphatase (38-126) U/L Troponin I (0.000-0.034) ng/mL NT-Pro-B Natriuret Pep pg/mL Total Protein (6.3-8.2) g/dL Albumin (3.5-5.0) g/dL Urine Color Yellow Urine Appearance Clear (Clear) Urine pH 6.0 (5.0-8.0) Ur Specific [place] 1.026 (1.001-1.035) Urine Protein Trace H (Negative) Urine Glucose (UA) Negative (Negative) Urine Ketones Negative (Negative) Urine Blood Negative (Negative) Urine Nitrite Negative (Negative) Urine Bilirubin Negative (Negative) Urine Urobilinogen 6.0 (<2.0) mg/dL Ur Leukocyte Esterase Negative (Negative) Disposition Clinical Impression: Edema, Hypoalbuminemia Disposition: HOME SELF-CARE Condition: Good Instructions (If sedation given, give patient instructions): Edema (ED) Is patient prescribed a controlled substance at d/c from ED?: No Referrals: Marialuisa Espinoza MD [Primary Care Provider] - 1-2 days
[2020-08-17] MEDS ORDERED: SODIUM CHLORIDE 0.9% 1,000 ML IV ONE (19:11)
[2020-08-17 20:18] LABS: Appearance,Urine Clear (Clear); Bilirubin,Urine Negative (Negative); Blood,Urine Negative (Negative); Color,Urine Yellow; Glucose,Urine (UA) Negative (Negative); Ketones,Urine Negative (Negative); Leukocyte Esterase,Urine Negative (Negative); Nitrite,Urine Negative (Negative); Protein,Urine Trace (Negative); Specific Gravity,Urine 1.026 (1.001-1.035)
[2020-08-17 20:25] VITALS: BP 115/66; PULSE 93; RESP 20; TEMP 98.9
== END 2020-08-17 21:21 | disposition home or self-care (01) ==
LOC: EC 17:10
DX: E88.09 Other disorders of plasma-protein metabolism, not elsewhere classified (principal); R60.9 Edema, unspecified; J44.9 Chronic obstructive pulmonary disease, unspecified; E11.9 Type 2 diabetes mellitus without complications; K21.9 Gastro-esophageal reflux disease without esophagitis; G40.909 Epilepsy, unspecified, not intractable, without status epilepticus; F41.9 Anxiety disorder, unspecified; F31.9 Bipolar disorder, unspecified; F17.200 Nicotine dependence, unspecified, uncomplicated; Z79.4 Long term (current) use of insulin; Z79.51 Long term (current) use of inhaled steroids; Z79.52 Long term (current) use of systemic steroids; Z79.899 Other long term (current) drug therapy; Z88.5 Allergy status to narcotic agent; Z88.8 Allergy status to other drugs, medicaments and biological substances
CPT/HCPCS: 36415; 71046; 80053; 81003; 83605; 83880; 84484; 85025; 85610; 85730; 87040; 99283

== ENCOUNTER → 2020-08-28 | Outpatient (CLI) | payer MEDICARE ==
[2020-08-28 09:09] LABS: ABG Base Excess 10.3 mmol/L; ABG HCO3 34 mmol/L (21-25); ABG Oxygen Saturation 91.7 % (94-97); ABG PCO2 50 mmHg (35-45); ABG PH 7.45 (7.35-7.45); ABG TCO2 36 mmol/L (19-24); Allen Test Performed? Yes
[2020-08-28 09:11] LABS: ABG PO2 59 mmHg (83-108)
== END | disposition home or self-care (01) ==
LOC: LABWHC1 08:24
PROVIDERS: ATTEND Internal Medicine Critical Care Medicine
DX: J44.9 Chronic obstructive pulmonary disease, unspecified (principal)
CPT/HCPCS: 36600; 82805

== ENCOUNTER → 2020-09-20 | Outpatient (CLI) | payer MEDICARE ==
--- NOTE | 2020-09-20 09:57 | US ---
EXAMINATION TYPE: US abdomen limited DATE OF EXAM: 09/20/2020 COMPARISON: US 2019 CLINICAL HISTORY: R94.5 Abnormal results of liver function studies. EXAM MEASUREMENTS: Liver Length: 20.1 cm CBD: 0.6 cm Right Kidney: 11.4 x 5.3 x 5.4 cm Pancreas: obscured by overlying midline bowel gas Liver: enlarged, increased attenuation, decreased visualization of vessels suggestive of fatty infil tration Gallbladder: surgically absent CBD: wnl Right Kidney: wnl No renal calculi. Cholecystectomy. Diffuse fatty infiltration of liver. Hepatomegaly. The pancreas is not visualized due to overlying kendra wel gas. IMPRESSION: 1. Diffuse fatty infiltration of the liver. Hepatomegaly. 2. The pancreas is obscured, not visualized by overlying bowel gas. 3. Cholecystectomy.
== END | disposition home or self-care (01) ==
LOC: RADUSWWP 08:15
DX: R16.0 Hepatomegaly, not elsewhere classified (principal); K76.0 Fatty (change of) liver, not elsewhere classified; Z90.49 Acquired absence of other specified parts of digestive tract
CPT/HCPCS: 76705

== ENCOUNTER 2020-11-16 11:09 | Inpatient (IN) | payer MEDICARE ==
[2020-11-16] MEDS ORDERED: ACETAMINOPHEN TAB 500 MG TAB PO STA (11:37)
[2020-11-16 11:56] LABS: Glucose,Whole Blood 390 mg/dL (75-99)
[2020-11-16 12:16] LABS: Basophils # (A) 0.1 k/uL (0-0.2); Basophils % (A) 0 %; Eosinophils # (A) 0.4 k/uL (0-0.7); Eosinophils % (A) 2 %; HCT 44.5 % (39.0-53.0); HGB 13.9 gm/dL (13.0-17.5); Lymphocytes # (A) 1.4 k/uL (1.0-4.8); Lymphocytes % (A) 9 %; MCH 27.9 pg (25.0-35.0); MCHC 31.3 g/dL (31.0-37.0); MCV 88.9 fL (80.0-100.0); Mean Platelet Volume 11.3; Monocytes # (A) 0.6 k/uL (0-1.0); Monocytes % (A) 4 %; Neutrophils # (A) 13.4 k/uL (1.3-7.7); Neutrophils % (A) 84 %; Platelet Count 101 k/uL (150-450); RDW 14.5 % (11.5-15.5); WBC 15.9 k/uL (3.8-10.6)
[2020-11-16 12:26] LABS: ALT 41 U/L (4-49); AST 81 U/L (17-59); African American GFR (CKD) >90 (>60 ml/min/1.73 sqM); Albumin 4.1 g/dL (3.5-5.0); Alkaline Phosphatase 185 U/L (38-126); Anion Gap 10 mmol/L; Blood Urea Nitrogen 9 mg/dL (9-20); Carbon Dioxide 23 mmol/L (22-30); Chloride 100 mmol/L (98-107); Glucose 378 mg/dL (74-99); INR 1.1 (<1.2); Non-African American GFR(CKD) >90 (>60 ml/min/1.73 sqM); Partial Thromboplastin Time 23.9 sec (22.0-30.0); Prothrombin Time 11.2 sec (9.0-12.0); Sodium 133 mmol/L (137-145); Total Bilirubin 1.1 mg/dL (0.2-1.3); Total Protein 7.1 g/dL (6.3-8.2)
[2020-11-16 12:28] LABS: Potassium 5.2 mmol/L (3.5-5.1)
[2020-11-16] MEDS ORDERED: PIPERACILLIN-TAZOBACTAM 3.375 GM in SODIUM CHLORIDE 0.9% 100 ML IVPB STA (12:40)
[2020-11-16] MEDS ORDERED: SODIUM CHLORIDE 0.9% 1,000 ML IV STA ×2 (12:41→23:00)
--- NOTE | 2020-11-16 12:42 | ED ---
General Adult HPI - General Chief complaint: Nausea/Vomiting/Diarrhea Stated complaint: N/V/D Source: patient, RN notes reviewed Mode of arrival: ambulatory Limitations: no limitations - History of Present Illness Initial comments: Patient is a 45-year-old male that presents to the emergency department with a several day history of not feeling well with upper respiratory tract symptoms. He notes that he is short of breath on exertion and just not feeling well. He denied any other aggravating symptoms other than exertion. He denied any chest pain headache nausea vomiting diarrhea constipation - Related Data Home Medications Medication Instructions Recorded Confirmed Mirtazapine [Remeron] 15 mg PO HS 11/23/16 08/12/20 lamoTRIgine [LaMICtal] 100 mg PO HS 03/13/17 08/12/20 OLANZapine [ZyPREXA] 10 mg PO HS 03/28/18 08/12/20 Buprenorphine HCl/Naloxone HCl 1 tab SL BID 01/27/20 08/12/20 [Buprenorphine-Nalox 8-2 mg Tab] INSULIN ASPART (NovoLOG) [NovoLOG 21 unit SQ AC-TID 07/21/20 08/12/20 (formulary)] Insulin Glargine [Lantus] 60 unit SQ HS 07/21/20 08/12/20 Omeprazole 20 mg PO BID 07/21/20 08/12/20 Albuterol Inhaler [Ventolin Hfa 1 puff INHALATION RT-QID PRN 07/27/20 08/12/20 Inhaler] Budesonide-Formot 160-4.5 Mcg 2 puff INHALATION RT-BID 07/27/20 08/12/20 [Symbicort 160-4.5 Mcg Inhaler] predniSONE See Taper PO DIRECTED 07/27/20 08/12/20 Previous Rx's Medication Instructions Recorded Cefdinir [Omnicef] 300 mg PO BID 7 Days #14 cap 07/26/20 Nicotine 21Mg/24Hr Patch [Habitrol] 1 patch TRANSDERM DAILY 30 Days 07/26/20 #30 patch Ertapenem [INVanz] 1 gm IVPB Q24H #7 bag 08/05/20 Nystatin 100,000Unit/gm Cream 1 applic TOPICAL DAILY PRN 7 Days 08/05/20 [Mycostatin Cream] #7 applic predniSONE 10 mg PO DIRECTED #24 tab 08/05/20 Allergies Allergy/AdvReac Type Severity Reaction Status Date / Time codeine Allergy Swelling Verified 11/16/20 11:19 furosemide [From Lasix] Allergy Rash/Hives Verified 11/16/20 11:19 haloperidol [From Haldol] Allergy Unknown Verified 11/16/20 11:19 prochlorperazine Allergy Swelling Verified 11/16/20 11:19 Review of Systems ROS Statement: Those systems with pertinent positive or pertinent negative responses have been documented in the HPI. ROS Other: All systems not noted in ROS Statement are negative. 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 with surgery/difficulty with incision healing/past cellulitis abdomin, IDDM type II, bronchitis, R lung spontaneous pneumo with surgery, last seizure 2011, hepatitis C with interferon over 6 yrs ago, past IV drug abuse-no drugs for over one year except for one slip/on suboxone, DDD, occasional low back pain, History of Any Multi-Drug Resistant Organisms: None Reported Past Surgical History: Appendectomy, Cholecystectomy Additional Past Surgical History / Comment(s): 2018 lap/laparotomy/partial omenectomy/cystogastrectomy/lysis of adhesions, 2019 open incision hernia repair with mesh-difficulty with incision healing since, EGD, colonoscopy, R lung thorascopy/decortication, bilateral eye RK for vision correction. Past Anesthesia/Blood Transfusion Reactions: No Reported Reaction Past Psychological History: Anxiety, Bipolar, Depression Smoking Status: Current every day smoker Past Alcohol Use History: None Reported Past Drug Use History: None Reported - Past Family History Brother(s) Additional Family Medical History / Comment(s): Chronic alcoholism in 2 brothers Sister(s) Additional Family Medical History / Comment(s): Chronic alcoholism Daughter(s) Family Medical History: No Reported History Additional Family Medical History / Comment(s): One daughter healthy Son(s) Family Medical History: No Reported History Additional Family Medical History / Comment(s): One son healthy Father History Unknown: Yes Family Medical History: AICD/Pacemaker, Myocardial Infarction ([place]), Renal Disease Additional Family Medical History / Comment(s): Schizophrenia. Per patient, his father at the age of 59 from renal failure. Mother History Unknown: Yes Family Medical History: Hypertension Additional Family Medical History / Comment(s): HPV General Exam Limitations: no limitations General appearance: alert, in no apparent distress, obese Head exam: Present: atraumatic, normocephalic, normal inspection Eye exam: Present: normal appearance, PERRL, EOMI. Absent: scleral icterus, conjunctival injection, periorbital swelling Neck exam: Present: normal inspection Respiratory exam: Present: normal lung sounds bilaterally, wheezes (Expiratory in all lung joyce). Absent: respiratory distress, rales, rhonchi, stridor Cardiovascular Exam: Present: regular rate, normal rhythm, normal heart sounds. Absent: systolic murmur, diastolic murmur, rubs, gallop, clicks GI/Abdominal exam: Present: soft, normal bowel sounds. Absent: distended, tenderness, guarding, rebound, rigid Extremities exam: Present: normal inspection, full ROM, normal capillary refill. Absent: tenderness, pedal edema, joint swelling, calf tenderness Neurological exam: Present: alert, oriented X3 Psychiatric exam: Present: normal affect, normal mood Skin exam: Present: warm, dry, intact, normal color. Absent: rash Course Vital Signs 11/16/20 11/16/20 11/16/20 11:16 11:51 12:38 Temperature 100.6 F H Pulse Rate 126 H 112 H 108 H Respiratory 24 24 20 Rate Blood Pressure 133/67 142/71 151/75 O2 Sat by Pulse 90 L 93 L 95 Oximetry - Reevaluation(s) Reevaluation #1: 11/16/20 12:41 Upon reevaluation and review labs showing a lactic acid of 4.0, elevated white count elevated temperature elevated heart rate sepsis protocol called at 12:41 PM. Medical Decision Making - Medical Decision Making 45-year-old male complaining of overall not feeling well with upper respiratory tract symptoms. Labs, secured entrance monitor, chest x-ray, sepsis protocol, 1 L normal saline ordered. Patient had elevated temperature 100.6, increased respiratory rate at 20, incr eased heart rate greater than 100. Zosyn and vancomycin ordered as empiric antibiotics. Labs:White blood cells 15.9 sodium 133 potassium 5.2 glucose 378 plasma lactic acid 4.0, coronavirus negative. Case discussed with Dr. Franklin, patient will be admitted to the hospital for sepsis and infection of unknown source. Dr. espinoza was consult and will accept the admit. - Lab Data Result diagrams: 11/16/20 11:51 11/16/20 11:51 Lab Results 11/16/20 11/16/20 11/16/20 Range/Units 11:51 11:51 11:51 WBC 15.9 H (3.8-10.6) k/uL RBC 5.00 (4.30-5.90) m/uL Hgb 13.9 (13.0-17.5) gm/dL Hct 44.5 (39.0-53.0) % MCV 88.9 (80.0-100.0) fL MCH 27.9 (25.0-35.0) pg MCHC 31.3 (31.0-37.0) g/dL RDW 14.5 (11.5-15.5) % Plt Count 101 L (150-450) k/uL MPV 11.3 Neutrophils % 84 % Lymphocytes % 9 % Monocytes % 4 % Eosinophils % 2 % Basophils % 0 % Neutrophils # 13.4 H (1.3-7.7) k/uL Lymphocytes # 1.4 (1.0-4.8) k/uL Monocytes # 0.6 (0-1.0) k/uL Eosinophils # 0.4 (0-0.7) k/uL Basophils # 0.1 (0-0.2) k/uL PT 11.2 (9.0-12.0) sec INR 1.1 (<1.2) APTT 23.9 (22.0-30.0) sec Sodium 133 L (137-145) mmol/L Potassium 5.2 H (3.5-5.1) mmol/L Chloride 100 (98-107) mmol/L Carbon Dioxide 23 (22-30) mmol/L Anion Gap 10 mmol/L BUN 9 (9-20) mg/dL Creatinine 0.56 L (0.66-1.25) mg/dL Est GFR (CKD-EPI)AfAm >90 (>60 ml/min/1.73 sqM) Est GFR (CKD-EPI)NonAf >90 (>60 ml/min/1.73 sqM) Glucose 378 H (74-99) mg/dL POC Glucose (mg/dL) (75-99) mg/dL POC Glu Primary Care Provider ID Plasma Lactic Acid Mynor (0.7-2.0) mmol/L Calcium 9.0 (8.4-10.2) mg/dL Total Bilirubin 1.1 (0.2-1.3) mg/dL AST 81 H (17-59) U/L ALT 41 (4-49) U/L Alkaline Phosphatase 185 H (38-126) U/L Total Protein 7.1 (6.3-8.2) g/dL Albumin 4.1 (3.5-5.0) g/dL Coronavirus (PCR) (Not Detectd) 11/16/20 11/16/20 11/16/20 Range/Units 11:51 11:51 11:54 WBC (3.8-10.6) k/uL RBC (4.30-5.90) m/uL Hgb (13.0-17.5) gm/dL Hct (39.0-53.0) % MCV (80.0-100.0) fL MCH (25.0-35.0) pg MCHC (31.0-37.0) g/dL RDW (11.5-15.5) % Plt Count (150-450) k/uL MPV Neutrophils % % Lymphocytes % % Monocytes % % Eosinophils % % Basophils % % Neutrophils # (1.3-7.7) k/uL Lymphocytes # (1.0-4.8) k/uL Monocytes # (0-1.0) k/uL Eosinophils # (0-0.7) k/uL Basophils # (0-0.2) k/uL PT (9.0-12.0) sec INR (<1.2) APTT (22.0-30.0) sec Sodium (137-145) mmol/L Potassium (3.5-5.1) mmol/L Chloride (98-107) mmol/L Carbon Dioxide (22-30) mmol/L Anion Gap mmol/L BUN (9-20) mg/dL Creatinine (0.66-1.25) mg/dL Est GFR (CKD-EPI)AfAm (>60 ml/min/1.73 sqM) Est GFR (CKD-EPI)NonAf (>60 ml/min/1.73 sqM) Glucose (74-99) mg/dL POC Glucose (mg/dL) 390 H (75-99) mg/dL POC Glu Primary Care Provider ID Elif Johnson Plasma Lactic Acid Myn[place] 4.0 H* (0.7-2.0) mmol/L Calcium (8.4-10.2) mg/dL Total Bilirubin (0.2-1.3) mg/dL AST (17-59) U/L ALT (4-49) U/L Alkaline Phosphatase (38-126) U/L Total Protein (6.3-8.2) g/dL Albumin (3.5-5.0) g/dL Coronavirus (PCR) Not Detected (Not Detectd) - Radiology Data Radiology results: report reviewed, image reviewed Linear atelectasis at the lung bases. Developing infiltrate is difficult to exclude particularly at the right medial lung base. Critical Care Time Critical Care Time: Yes (40) Disposition Clinical Impression: Fever, Leukocytosis, Sepsis Disposition: ADMITTED IP TO THIS [facility] Condition: Stable Is patient prescribed a controlled substance at d/c from ED?: No Referrals: Marialuisa Espinoza MD [Primary Care Provider] - 1-2 days Time of Disposition: 13:26
[2020-11-16] MEDS ORDERED: VANCOMYCIN IV PER PHARMACY 1 EACH MISC MISCELLANE PRN (13:00)
--- NOTE | 2020-11-16 13:01 | XR ---
EXAMINATION TYPE: XR chest 2V DATE OF EXAM: 11/16/2020 COMPARISON: 08/17/2020 HISTORY: Chest pain TECHNIQUE: Frontal and lateral views of the chest are obtained. FINDINGS: There is no focal air space opacity. Linear atelectasis at the lung bases. Developing infiltrate is difficult to exclude particularly at t he right medial lung base. The cardiac silhouette size is within normal limits. The osseous structures are grossly intact. IMPRESSION: 1. Linear atelectasis at the lung bases. Developing infiltrate is difficult to exclude particularly at the right medial lung base.
[2020-11-16] MEDS ORDERED: VANCOMYCIN 1,750 MG in SODIUM CHLORIDE 0.9% 500 ML 500 ML IVPB STA (13:09)
[2020-11-16] MEDS ORDERED: IBUPROFEN 400 MG TAB PO PRN (13:26)
[2020-11-16] MEDS ORDERED: NALOXONE 0.4 MG/ML 1 ML VIAL IV PRN (13:26)
[2020-11-16] MEDS ORDERED: ACETAMINOPHEN TAB 325 MG TAB PO PRN (13:26)
[2020-11-16 14:31] LABS: Appearance,Urine Clear (Clear); Bilirubin,Urine Negative (Negative); Blood,Urine Negative (Negative); Color,Urine Light Yellow; Glucose,Urine (UA) 4+ (Negative); Ketones,Urine Negative (Negative); Leukocyte Esterase,Urine Negative (Negative); Nitrite,Urine Negative (Negative); PH, Urine 6.5 (5.0-8.0); Protein,Urine Negative (Negative); Specific Gravity,Urine 1.009 (1.001-1.035); Urobilinogen,Urine <2.0 mg/dL (<2.0)
[2020-11-16] MEDS: SODIUM CHLORIDE 0.9% 1,000 ML IV SCH ×2 (14:56→23:30)
--- NOTE | 2020-11-16 15:37 | P.HPIM ---
History of Present Illness H&P Date: 11/16/20 Juan Ralph is a 45 year old male who presented to [facility] emergency room with a chief complaint of worsening shortness of breath He was evaluated in the emergency room vital examination on presentation revealed a temperature of 100.6 pulse 126 respiration 24 blood pressure 133/67 pulse ox 90% on room air Laboratory data reveals a white blood count of 15.9 hemoglobin 13.9 platelet count 101 sodium 133 potassium 5.2 chloride 100 CO2 23 BUN 9 creatinine 0.59 glucose level 378 asthma lactic acid 4.0 AST 81 alkaline phosphatase 185 coronavirus PCR was negative. D-dimer was not done, urine toxicology screen was not done in the emergency room. Testing in the emergency room revealed chest x-ray done in the emergency room revealed linear atelectasis in both lung bases with possible infiltrates particularly at the right medial lung base Patient was admitted to medical floor for further evaluation and treatment, he was started on IV antibiotic Zosyn and vancomycin in the emergency room Past medical history is significant for insulin-dependent diabetes mellitus, depression with bipolar disorder, history of COPD, history of tobacco use, and previous history of drug abuse, patient also has a previous history of common bile duct obstruction due to biliary stone leading to infection and necrosis requiring partial pancreas resection. On review of systems Patient was seen and examined, he is alert and oriented x 3 in no distress, he is complaining of occasional cough and shortness of breath otherwise he denies any complaints there is no fever or chills no headache or dizziness no chest pain, no palpitation no nausea or vomiting no abdominal pain no diarrhea no blood in the stools no burning with urination no frequency or urgency and no hematuria, there is no weakness or numbness in any of the extremities no change in vision speech or gait. 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 with surgery/difficulty with incision healing/past cellulitis abdomin, IDDM type II, bronchitis, R lung spontaneous pneumo with surgery, last seizure 2011, hepatitis C with interferon over 6 yrs ago, past IV drug abuse-no drugs for over one year except for one slip/on suboxone, DDD, occasional low back pain, History of Any Multi-Drug Resistant Organisms: None Reported Past Surgical History: Appendectomy, Cholecystectomy Additional Past Surgical History / Comment(s): 2018 lap/laparotomy/partial omenectomy/cystogastrectomy/lysis of adhesions, 2019 open incision hernia repair with mesh-difficulty with incision healing since, EGD, colonoscopy, R lung thorascopy/decortication, bilateral eye RK for vision correction. Past Anesthesia/Blood Transfusion Reactions: No Reported Reaction Past Psychological History: Anxiety, Bipolar, Depression Smoking Status: Current every day smoker Past Alcohol Use History: None Reported Past Drug Use History: None Reported - Past Family History Brother(s) Additional Family Medical History / Comment(s): Chronic alcoholism in 2 brothers Sister(s) Additional Family Medical History / Comment(s): Chronic alcoholism Daughter(s) Family Medical History: No Reported History Additional Family Medical History / Comment(s): One daughter healthy Son(s) Family Medical History: No Reported History Additional Family Medical History / Comment(s): One son healthy Father History Unknown: Yes Family Medical History: AICD/Pacemaker, Myocardial Infarction ([place]), Renal Disease Additional Family Medical History / Comment(s): Schizophrenia. Per patient, his father at the age of 59 from renal failure. Mother History Unknown: Yes Family Medical History: Hypertension Additional Family Medical History / Comment(s): HPV Medications and Allergies Home Medications Medication Instructions Recorded Confirmed Type Mirtazapine [Remeron] 15 mg PO HS 11/23/16 08/12/20 History lamoTRIgine [LaMICtal] 100 mg PO HS 03/13/17 08/12/20 History OLANZapine [ZyPREXA] 10 mg PO HS 03/28/18 08/12/20 History Buprenorphine HCl/Naloxone HCl 1 tab SL BID 01/27/20 08/12/20 History [Buprenorphine-Nalox 8-2 mg Tab] INSULIN ASPART (NovoLOG) [NovoLOG 21 unit SQ AC-TID 07/21/20 08/12/20 History (formulary)] Insulin Glargine [Lantus] 60 unit SQ HS 07/21/20 08/12/20 History Omeprazole 20 mg PO BID 07/21/20 08/12/20 History Cefdinir [Omnicef] 300 mg PO BID 7 Days #14 cap 07/26/20 08/12/20 Rx Nicotine 21Mg/24Hr Patch [Habitrol] 1 patch TRANSDERM DAILY 30 Days 07/26/20 08/12/20 Rx #30 patch Albuterol Inhaler [Ventolin Hfa 1 puff INHALATION RT-QID PRN 07/27/20 08/12/20 History Inhaler] Budesonide-Formot 160-4.5 Mcg 2 puff INHALATION RT-BID 07/27/20 08/12/20 History [Symbicort 160-4.5 Mcg Inhaler] predniSONE See Taper PO DIRECTED 07/27/20 08/12/20 History Ertapenem [INVanz] 1 gm IVPB Q24H #7 bag 08/05/20 08/12/20 Rx Nystatin 100,000Unit/gm Cream 1 applic TOPICAL DAILY PRN 7 Days 08/05/20 08/12/20 Rx [Mycostatin Cream] #7 applic predniSONE 10 mg PO DIRECTED #24 tab 08/05/20 08/12/20 Rx Allergies Allergy/AdvReac Type Severity Reaction Status Date / Time codeine Allergy Swelling Verified 11/16/20 11:19 furosemide [From Lasix] Allergy Rash/Hives Verified 11/16/20 11:19 haloperidol [From Haldol] Allergy Unknown Verified 11/16/20 11:19 prochlorperazine Allergy Swelling Verified 11/16/20 11:19 Physical Exam Vitals: Vital Signs Temp Pulse Pulse Resp BP BP Pulse Ox 11/16/20 14:10 101.2 F H 96 26 H 124/63 97 11/16/20 13:06 104 H 24 108/56 11/16/20 12:38 108 H 20 151/75 95 11/16/20 11:51 112 H 24 142/71 93 L 11/16/20 11:16 100.6 F H 126 H 24 133/67 90 L Intake and Output 11/15/20 11/16/20 11/16/20 22:59 06:59 14:59 Other: Weight 117.934 kg In general patient is alert and oriented x 3 in no distress HEENT head normocephalic and atraumatic Neck is supple no JVD no goiter no lymphadenopathy no carotid bruit Chest examination reveals a scattered crackles bilaterally no wheezing Cardiac exam reveals regular heart sounds S1 and S2 no gallops no murmurs Abdomen is soft nontender no organomegaly with normal bowel sounds Extremity exam reveals no edema no cyanosis or clubbing Neurological examination reveals no gross focal deficits Results CBC & Chem 7: 11/16/20 11:51 11/16/20 11:51 Labs: Abnormal Lab Results - Last 24 Hours (Table) 11/16/20 11/16/20 11/16/20 Range/Units 11:51 11:51 11:51 WBC 15.9 H (3.8-10.6) k/uL Plt Count 101 L (150-450) k/uL Neutrophils # 13.4 H (1.3-7.7) k/uL Sodium 133 L (137-145) mmol/L Potassium 5.2 H (3.5-5.1) mmol/L Creatinine 0.56 L (0.66-1.25) mg/dL Glucose 378 H (74-99) mg/dL POC Glucose (mg/dL) (75-99) mg/dL Plasma Lactic Acid Mynor 4.0 H* (0.7-2.0) mmol/L AST 81 H (17-59) U/L Alkaline Phosphatase 185 H (38-126) U/L Urine Glucose (UA) (Negative) 11/16/20 11/16/20 Range/Units 11:54 14:22 WBC (3.8-10.6) k/uL Plt Count (150-450) k/uL Neutrophils # (1.3-7.7) k/uL Sodium (137-145) mmol/L Potassium (3.5-5.1) mmol/L Creatinine (0.66-1.25) mg/dL Glucose (74-99) mg/dL POC Glucose (mg/dL) 390 H (75-99) mg/dL Plasma Lactic Acid Mynor (0.7-2.0) mmol/L AST (17-59) U/L Alkaline Phosphatase (38-126) U/L Urine Glucose (UA) 4+ H (Negative) Assessment and Plan Plan: 1. Febrile illness with leukocytosis, possible pneumonia, patient was started on IV Zosyn and IV vancomycin in the emergency room 2. Sepsis as evidenced by fever, leukocytosis, and elevated lactic acid 3. Elevated liver enzymes AST and alkaline phosphatase Will check liver ultrasound 4. Underlying history of insulin-dependent diabetes mellitus 5. Underlying history of COPD 6. Underlying history of tobacco abuse 7. Underlying history of depression with bipolar disorder 8. Underlying history of gastroesophageal reflux disease At this time patient was started on IV antibiotic, Zosyn and vancomycin He received IV fluid in the emergency room Will repeat chest x-ray PA and lateral in a.m. Will check liver ultrasound, recheck labs in a.m. Will add d-dimer due to worsening shortness of breath Will add urine toxicology screen due to patient previous history of drug abuse Consult infectious disease
[2020-11-16 21:30] LABS: Glucose,Whole Blood 307 mg/dL (75-99)
[2020-11-16] MEDS: VANCOMYCIN 1,750 MG in SODIUM CHLORIDE 0.9% 500 ML 500 ML IVPB SCH (23:30)
[2020-11-16 23:58] LABS: Urine Alcohol Negative (Negative); Urine Barbiturate Negative (Negative); Urine Cocaine Negative (Negative); Urine Methadone Negative (Negative); Urine Opiates Negative (Negative); Urine Phencyclidine Negative (Negative)
[2020-11-17] MEDS: PIPERACILLIN-TAZOBACTAM 3.375 GM in SODIUM CHLORIDE 0.9% 100 ML IVPB SCH ×3 (00:25→15:38)
[2020-11-17 00:47] LABS: Hemoglobin A1C 6.4 % (4.0-6.0)
[2020-11-17] MEDS ORDERED: DEXTROSE 50% SYRINGE 50 ML IVP PRN (02:14)
[2020-11-17 06:47] LABS: Glucose,Whole Blood 292 mg/dL (75-99)
[2020-11-17 07:01] LABS: Basophils % (A) 0 %; Eosinophils # (A) 0.4 k/uL (0-0.7); Eosinophils % (A) 4 %; HGB 12.2 gm/dL (13.0-17.5); Lymphocytes # (A) 1.8 k/uL (1.0-4.8); Lymphocytes % (A) 19 %; MCH 28.1 pg (25.0-35.0); MCHC 31.3 g/dL (31.0-37.0); MCV 89.8 fL (80.0-100.0); Mean Platelet Volume 10.8; Monocytes # (A) 0.5 k/uL (0-1.0); Monocytes % (A) 5 %; Neutrophils # (A) 6.7 k/uL (1.3-7.7); Neutrophils % (A) 70 %; RBC 4.34 m/uL (4.30-5.90); RDW 14.4 % (11.5-15.5); WBC 9.5 k/uL (3.8-10.6)
[2020-11-17] MEDS: INSULIN ASPART (NovoLOG) 100 UNIT/ML VIAL SQ SCH ×4 (07:09→22:26)
[2020-11-17] MEDS: PANTOPRAZOLE 40 MG TABLET PO SCH ×2 (07:09→22:29)
[2020-11-17] MEDS: lamoTRIgine 100 MG TAB PO SCH ×2 (07:09→23:35)
[2020-11-17] MEDS: VANCOMYCIN 1,750 MG in SODIUM CHLORIDE 0.9% 500 ML 500 ML IVPB SCH ×2 (07:10→15:38)
[2020-11-17] MEDS: BUMETANIDE 1 MG TAB PO SCH (07:10)
[2020-11-17] MEDS: OLANZapine 10 MG TAB PO SCH ×2 (07:11→22:29)
[2020-11-17 07:25] LABS: African American GFR (CKD) >90 (>60 ml/min/1.73 sqM); Albumin 3.2 g/dL (3.5-5.0); Anion Gap 2 mmol/L; Blood Urea Nitrogen 10 mg/dL (9-20); Calcium 8.7 mg/dL (8.4-10.2); Carbon Dioxide 31 mmol/L (22-30); Chloride 104 mmol/L (98-107); Glucose 315 mg/dL (74-99); Non-African American GFR(CKD) >90 (>60 ml/min/1.73 sqM); Sodium 137 mmol/L (137-145); Total Protein 5.6 g/dL (6.3-8.2)
[2020-11-17 07:26] LABS: ALT 36 U/L (4-49); AST 35 U/L (17-59); Albumin/Globulin Ratio 1.3; Alkaline Phosphatase 165 U/L (38-126); Globulin 2.4 g/dL; Total Bilirubin 0.6 mg/dL (0.2-1.3)
[2020-11-17 07:52] LABS: Platelet Count 90 k/uL (150-450)
[2020-11-17] MEDS: SYMBICORT 160-4.5 MCG INHALER INHALATION SCH ×2 (08:16→19:07)
[2020-11-17] MEDS: [UNRECOGNIZED DRUG - OTHER] SUBLINGUAL SCH ×2 (08:32→22:28)
[2020-11-17] MEDS: BUPRENORPHINE HCL SUBLINGUAL SCH ×2 (08:32→22:28)
[2020-11-17] MEDS: NALOXONE HCL SUBLINGUAL SCH ×2 (08:32→22:28)
[2020-11-17] MEDS ORDERED: NON FORMULARY DRUG (Potassium Chloride [Klor-Con 10] 10 MEQ Tablet.Er) PO SCH (09:00)
--- NOTE | 2020-11-17 09:06 | XR ---
EXAMINATION TYPE: XR chest 2V DATE OF EXAM: 11/17/2020 COMPARISON: 11/16/2020 HISTORY: Chest pain TECHNIQUE: Frontal and lateral views of the chest are obtained. FINDINGS: There is no focal air space opacity. Basilar atelectasis and/or developing infiltrates. No significant change appreciated. The cardiac silhouette size is within normal limits. The osseous structures are grossly intact. IMPRESSION: 1. Basilar atelectasis and/or developing infiltrates. No significant change appreciated.
--- NOTE | 2020-11-17 09:42 | P.PN ---
Subjective Progress Note Date: 11/17/20 Juan Ralph is a 45 year old male who presented to [facility] emergency room with a chief complaint of worsening shortness of breath He was evaluated in the emergency room vital examination on presentation revealed a temperature of 100.6 pulse 126 respiration 24 blood pressure 133/67 p ulse ox 90% on room air Laboratory data reveals a white blood count of 15.9 hemoglobin 13.9 platelet count 101 sodium 133 potassium 5.2 chloride 100 CO2 23 BUN 9 creatinine 0.59 glucose level 378 asthma lactic acid 4.0 AST 81 alkaline phosphatase 185 coronavirus PCR was negative. D-dimer was not done, urine toxicology screen was not done in the emergency room. Testing in the emergency room revealed chest x-ray done in the emergency room revealed linear atelectasis in both lung bases with possible infiltrates particularly at the right medial lung base Patient was admitted to medical floor for further evaluation and treatment, he was started on IV antibiotic Zosyn and vancomycin in the emergency room Past medical history is significant for insulin-dependent diabetes mellitus, depression with bipolar disorder, history of COPD, history of tobacco use, and previous history of drug abuse, patient also has a previous history of common bile duct obstruction due to biliary stone leading to infection and necrosis requiring partial pancreas resection. On review of systems Patient was seen and examined, he is alert and oriented x 3 in no distress, he is complaining of occasional cough and shortness of breath otherwise he denies any complaints there is no fever or chills no headache or dizziness no chest pain, no palpitation no nausea or vomiting no abdominal pain no diarrhea no blood in the stools no burning with urination no frequency or urgency and no hematuria, there is no weakness or numbness in any of the extremities no change in vision speech or gait. On 11/17/2020 patient alert and oriented 3. Patient still complaining of some mild shortness of breath. Lactic acid 1.9. Patient remains on Zosyn and vancomycin. Liver ultrasound results pending. Awaiting infectious disease input. At this time patient denies chest pain or shortness of breath. Patient denies nausea vomiting or diarrhea. Patient denies any urinary burning or frequency. White blood cell improving to 9.5 Objective - Vital Signs Vital signs: Vital Signs Temp 97.5 F L 11/17/20 07:21 Pulse 79 11/17/20 07:21 Resp 18 11/17/20 07:21 BP 117/76 11/17/20 07:21 Pulse Ox 96 11/17/20 07:21 Intake & Output 11/16/20 11/17/20 11/17/20 18:59 06:59 18:59 Intake Total 4440 1900 Balance 4440 1900 Weight 117.934 kg Intake: Intake, IV Titration 2520 Amount Piperacillin-Tazobactam 3 100 .375 gm In Sodium Chloride 0.9% 100 ml @ 25 mls/hr IVPB Q8HR [facility] Rx# :[id number] Sodium Chloride 0.9% 1, 1320 000 ml @ 130 mls/hr IV . Q7H42M [facility] Rx#:[id number] Sodium Chloride 0.9% 1, 100 000 ml @ 999 mls/hr IV . Q1H1M [facility] Rx#:[id number] Vancomycin 1,750 mg In 500 Sodium Chloride 0.9% 500 ml 500 ml @ 167 mls/hr IVPB ONCE [facility] Rx#: [id number] Vancomycin 1,750 mg In 500 Sodium Chloride 0.9% 500 ml 500 ml @ 167 mls/hr IVPB Q8H [facility] Rx#: [id number] Oral 1920 1900 Other: Voiding Method Toilet Urinal - Exam In general patient is alert and oriented x 3 in no distress HEENT head normocephalic and atraumatic Neck is supple no JVD no goiter no lymphadenopathy no carotid bruit Chest examination reveals a scattered crackles bilaterally no wheezing Cardiac exam reveals regular heart sounds S1 and S2 no gallops no murmurs Abdomen is soft nontender no organomegaly with normal bowel sounds Extremity exam reveals no edema no cyanosis or clubbing Neurological examination reveals no gross focal deficits - Labs CBC & Chem 7: 11/17/20 05:52 11/17/20 05:52 Labs: Abnormal Lab Results - Last 24 Hours (Table) 11/16/20 11/16/20 11/16/20 Range/Units 11:51 11:51 11:51 WBC 15.9 H (3.8-10.6) k/uL Hgb (13.0-17.5) gm/dL Plt Count 101 L (150-450) k/uL Neutrophils # 13.4 H (1.3-7.7) k/uL D-Dimer (<0.60) mg/L FEU Sodium 133 L (137-145) mmol/L Potassium 5.2 H (3.5-5.1) mmol/L Carbon Dioxide (22-30) mmol/L Creatinine 0.56 L (0.66-1.25) mg/dL Glucose 378 H (74-99) mg/dL POC Glucose (mg/dL) (75-99) mg/dL Hemoglobin A1c (4.0-6.0) % Plasma Lactic Acid Mynor 4.0 H* (0.7-2.0) mmol/L AST 81 H (17-59) U/L Alkaline Phosphatase 185 H (38-126) U/L Total Protein (6.3-8.2) g/dL Albumin (3.5-5.0) g/dL Urine Glucose (UA) (Negative) 11/16/20 11/16/20 11/16/20 Range/Units 11:51 11:54 14:22 WBC (3.8-10.6) k/uL Hgb (13.0-17.5) gm/dL Plt Count (150-450) k/uL Neutrophils # (1.3-7.7) k/uL D-Dimer 0.78 H (<0.60) mg/L FEU Sodium (137-145) mmol/L Potassium (3.5-5.1) mmol/L Carbon Dioxide (22-30) mmol/L Creatinine (0.66-1.25) mg/dL Glucose (74-99) mg/dL POC Glucose (mg/dL) 390 H (75-99) mg/dL Hemoglobin A1c (4.0-6.0) % Plasma Lactic Acid Mynor (0.7-2.0) mmol/L AST (17-59) U/L Alkaline Phosphatase (38-126) U/L Total Protein (6.3-8.2) g/dL Albumin (3.5-5.0) g/dL Urine Glucose (UA) 4+ H (Negative) 11/16/20 11/16/20 11/17/20 Range/Units 15:42 21:20 05:52 WBC (3.8-10.6) k/uL Hgb (13.0-17.5) gm/dL Plt Count (150-450) k/uL Neutrophils # (1.3-7.7) k/uL D-Dimer (<0.60) mg/L FEU Sodium (137-145) mmol/L Potassium (3.5-5.1) mmol/L Carbon Dioxide 31 H (22-30) mmol/L Creatinine 0.63 L (0.66-1.25) mg/dL Glucose 315 H (74-99) mg/dL POC Glucose (mg/dL) 307 H (75-99) mg/dL Hemoglobin A1c 6.4 H (4.0-6.0) % Plasma Lactic Acid Mynor (0.7-2.0) mmol/L AST (17-59) U/L Alkaline Phosphatase 165 H (38-126) U/L Total Protein 5.6 L (6.3-8.2) g/dL Albumin 3.2 L (3.5-5.0) g/dL Urine Glucose (UA) (Negative) 11/17/20 11/17/20 Range/Units 05:52 06:45 WBC (3.8-10.6) k/uL Hgb 12.2 L (13.0-17.5) gm/dL Plt Count 90 L (150-450) k/uL Neutrophils # (1.3-7.7) k/uL D-Dimer (<0.60) mg/L FEU Sodium (137-145) mmol/L Potassium (3.5-5.1) mmol/L Carbon Dioxide (22-30) mmol/L Creatinine (0.66-1.25) mg/dL Glucose (74-99) mg/dL POC Glucose (mg/dL) 292 H (75-99) mg/dL Hemoglobin A1c (4.0-6.0) % Plasma Lactic Acid Mynor (0.7-2.0) mmol/L AST (17-59) U/L Alkaline Phosphatase (38-126) U/L Total Protein (6.3-8.2) g/dL Albumin (3.5-5.0) g/dL Urine Glucose (UA) (Negative) Assessment and Plan Plan: 1. Febrile illness with leukocytosis, possible pneumonia, patient was started on IV Zosyn and IV vancomycin in the emergency room 2. Sepsis as evidenced by fever, leukocytosis, and elevated lactic acid. Lactic acid and white blood cell improving 3. Elevated liver enzymes AST and alkaline phosphatase Will check liver ultrasound 4. Underlying history of insulin-dependent diabetes mellitus 5. Underlying history of COPD 6. Underlying history of tobacco abuse 7. Underlying history of depression with bipolar disorder 8. Underlying history of gastroesophageal reflux disease Maintained on IV vancomycin and Zosyn Will repeat chest x-ray PA and lateral in a.m. Will check liver ultrasound, recheck labs in a.m. Will add d-dimer due to worsening shortness of breath Will add urine toxicology screen due to patient previous history of drug abuse Consult infectious disease
--- NOTE | 2020-11-17 09:43 | US ---
EXAMINATION TYPE: US liver DATE OF EXAM: 11/17/2020 COMPARISON: 09/20/[address] of the abdomen and pelvis dated 01/27/2020 CLINICAL HISTORY: history of ETOH. EXAM MEASUREMENTS: Liver Length: 22.8 cm CBD: 0.7 cm Right Kidney: 12.4 x 4.5 x 5.8 cm Pancreas: Pancreas is not well-visualized. There is a anechoic structure measuring 4 x 5.1 x 3.8 cm i n the region of the pancreas. Liver: Enlarged right hepatic lobe. Heterogeneous parenchyma with increased echogenicity. Gallbladder: Surgically absent Evidence for sonographic Dahl's sign: No Right Kidney: No hydronephrosis or shadowing calculi IMPRESSION: 1. Heterogeneous hyperechoic liver with enlarged right hepatic lobe findings suggesting hepatic steat osis or hepatocellular disease. 2. Cystic lesion in the region of the pancreas measuring 5.1 cm could represent a pancreatic cystic l esion or a peripancreatic fluid collection. It appears that there was a cystic lesion associated with the tail of the pancreas seen on CT abdomen pelvis dated 01/27/2020 however at the time it measured u p to 2.3 cm.
[2020-11-17 11:42] LABS: Glucose,Whole Blood 200 mg/dL (75-99)
[2020-11-17] MEDS: ENOXAPARIN 40 MG/0.4 ML SYRINGE SQ SCH (12:31)
--- NOTE | 2020-11-17 13:35 | CT ---
EXAMINATION TYPE: CT chest angio for PE DATE OF EXAM: 11/17/2020 COMPARISON: 07/27/2020 HISTORY: elevated d dimer TECHNIQUE: CT scan of the chest CT PE protocol performed with the herniated mL of Isovue-370 CT DLP: 505.5 mGycm Automated exposure control for dose reduction was used. FINDINGS: The pulmonary trunk opacification is suboptimal therefore study is considered nondiagnostic for pulmo nary arterial embolism. However despite the suboptimal opacification of the pulmonary arteries it appears that there is a non occlusive filling defect and left lower lobe subsegmental pulmonary artery best seen on series 401 im age 65 and 66 this however may be related to volume averaging. No occlusive filling defects are seen in the main, right or left pulmonary arteries. The intrathoracic aorta is normal in course and caliber. There are scattered right side (lower lobe more than upper lobe) peribronchial vascular nodularity is . There is also groundglass opacity in the left upper lobe peripherally along the fissure. There is a calcified nodule in the right upper lobe posteriorly. There is a calcified nodule in the right upper lobe inferiorly. There is no pneumothorax or pleural effusion. The trachea and bronchial tree are patent. No mediastinal or hilar adenopathy. The heart is normal in size there is no pericardial effusion. Esophagus is mildly distended with air. The upper abdomen is within normal limit. Thyroid gland is pa rtially seen and does not appear enlarged. No acute osseous abnormality. Degenerative changes seen in the spine. IMPRESSION: 1. STUDY NONDIAGNOSTIC FOR PULMONARY EMBOLISM DUE TO BOLUS TIMING. NO OCCLUSIVE FILLING DEFECT IN THE MAIN RIGHT OR LEFT PULMONARY ARTERIES. 2. LEFT LOWER LOBE SUBSEGMENTAL PULMONARY ARTERY NONOCCLUSIVE FILLING DEFECT (PULMONARY EMBOLISM) REJI LONNY VOLUME AVERAGING. 3. MULTIFOCAL PNEUMONIA.
[2020-11-17] MEDS: methylPREDNISolone SOD SUCCI 125 MG/2 ML VIAL IV SCH ×2 (15:39→22:28)
[2020-11-17] MEDS ORDERED: methylPREDNISolone SOD SUCCI 40 MG/ML 1 ML VIAL IV SCH (16:00)
[2020-11-17 16:59] LABS: Glucose,Whole Blood 234 mg/dL (75-99)
[2020-11-17 20:29] LABS: Glucose,Whole Blood 420 mg/dL (75-99)
[2020-11-17] MEDS ORDERED: INSULIN DETEMIR (LEVEMIR) 100 UNIT/ML SYR SQ SCH (21:00)
[2020-11-17] MEDS ORDERED: VANCOMYCIN TROUGH DUE 1 EACH MISC MISCELLANE ONE (22:00)
--- NOTE | 2020-11-17 22:31 | P.CONS ---
History of Present Illness - Reason for Consult Consult date: 11/17/20 Sepsis Requesting physician: Marialuisa Espinoza - Chief Complaint not feeling well x few days - History of Present Illness Patient is a 45-year-old male presenting to the ER for evaluation of not feeling well and did have some URI symptoms patient also complaining of sh ortness of breath on minimal exertion that has been getting worse for the last few days patient denies having any chest pain he did have a cough which is moderate intensity with occasional sputum no hemoptysis denies having nausea no vomiting no abdominal pain no diarrhea with the symptom the patient was evaluated by ER physician on arrival to the ER patient did have a fever of 101.2 degree for night patient was tachycardic and hypoxic with O2 sats of 90% patient did have a normal white count though liver exams are normal aldana PCR was negative urine was negative urine drug screen was negative patient did have a chest x-ray atelectasis lung bases developing infiltrate is difficult to exclude at the right lung base ultrasound of the liver hepatic steatosis cystic lesion in the region of the pancreas CT angiogram of the chest was negative for PE however there was evidence of multifocal pneumonia patient has been started on vancomycin and Zosyn infectious disease was consulted for further management of antibiotic therapy. Review of Systems Positive point has been mentioned in the HPI rest of the systems are negative Past Medical History Past Medical History: Asthma, COPD, Diabetes Mellitus, GERD/Reflux, Musculosk eletal Disorder, Seizure Disorder Additional Past Medical History / Comment(s): 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 with surgery/difficulty with incision healing/past cellulitis abdomin, IDDM type II, bronchitis, R lung spontaneous pneumo with surgery, last seizure 2011, hepatitis C with interferon over 6 yrs ago, past IV drug abuse-no drugs for over one year except for one slip/on suboxone, DDD, occasional low back pain, History of Any Multi-Drug Resistant Organisms: None Reported Past Surgical History: Appendectomy, Cholecystectomy Additional Past Surgical History / Comment(s): 2018 lap/laparotomy/partial omenectomy/cystogastrectomy/lysis of adhesions, 2019 open incision hernia repair with mesh-difficulty with incision healing since, EGD, colonoscopy, R lung t horascopy/decortication, bilateral eye RK for vision correction. Past Anesthesia/Blood Transfusion Reactions: No Reported Reaction Past Psychological History: Anxiety, Bipolar, Depression Smoking Status: Current every day smoker Past Alcohol Use History: None Reported Past Drug Use History: None Reported - Past Family History Brother(s) Additional Family Medical History / Comment(s): Chronic alcoholism in 2 brothers Sister(s) Additional Family Medical History / Comment(s): Chronic alcoholism Daughter(s) Family Medical History: No Reported History Additional Family Medical History / Comment(s): One daughter healthy Son(s) Family Medical History: No Reported History Additional Family Medical History / Comment(s): One son healthy Father History Unknown: Yes Family Medical History: AICD/Pacemaker, Myocardial Infarction ([place]), Renal Disease Additional Family Medical History / Comment(s): Schizophrenia. Per patient, his father at the age of 59 from renal failure. Mother History Unknown: Yes Family Medical History: Hypertension Additional Family Medical History / Comment(s): HPV Medications and Allergies Home Medications Medication Instructions Recorded Confirmed Type Mirtazapine [Remeron] 15 mg PO HS 11/23/16 11/16/20 History lamoTRIgine [LaMICtal] 100 mg PO BID 03/13/17 11/16/20 History OLANZapine [ZyPREXA] 10 mg PO HS 03/28/18 11/16/20 History Buprenorphine HCl/Naloxone HCl 1 tab SL BID 01/27/20 11/16/20 History [Buprenorphine-Nalox 8-2 mg Tab] INSULIN ASPART (NovoLOG) [NovoLOG See Protocol SQ AC-TID 07/21/20 11/16/20 History (formulary)] Insulin Glargine [Lantus] See Protocol SQ HS 07/21/20 11/16/20 History Omeprazole 20 mg PO BID 07/21/20 11/16/20 History Budesonide-Formot 160-4.5 Mcg 2 puff INHALATION RT-BID 07/27/20 11/16/20 History [Symbicort 160-4.5 Mcg Inhaler] Nystatin 100,000Unit/gm Cream 1 applic TOPICAL DAILY PRN 7 Days 08/05/20 11/16/20 Rx [Mycostatin Cream] #7 applic Bumetanide [Bumex] 1 mg PO DAILY 11/16/20 11/16/20 History Potassium Chloride [Klor-Con 10] 10 meq PO DAILY 11/16/20 11/16/20 History Allergies Allergy/AdvReac Type Severity Reaction Status Date / Time codeine Allergy Swelling Verified 11/16/20 15:50 furosemide [From Lasix] Allergy Rash/Hives Verified 11/16/20 15:50 haloperidol [From Haldol] Allergy Unknown Verified 11/16/20 15:50 prochlorperazine Allergy Swelling Verified 11/16/20 15:50 Physical Exam Vitals: Vital Signs Temp Pulse Pulse Pulse Resp BP BP 11/17/20 14:00 97.9 F 79 18 146/77 11/17/20 07: 97.5 F L 79 18 117/76 11/17/20 02:00 97.5 F L 88 16 120/74 11/16/20 20:00 97.6 F 88 16 107/65 11/16/20 16:51 98.9 F 89 20 111/96 11/16/20 15:23 99.5 F 85 20 132/77 Pulse Ox 11/17/20 14:00 94 L 11/17/20 07: 96 11/17/20 02:00 97 11/16/20 20:00 94 L 11/16/20 16:51 95 11/16/20 15:23 95 Intake and Output 11/17/20 11/17/20 11/17/20 06:59 14:59 22:59 Intake Total 1900 Balance 1900 Intake: Oral 1899 Other: Voiding Method Toilet Urinal GENERAL DESCRIPTION: Middle-aged male lying in bed, no distress. No tachypnea or accessory muscle of respiration use. HEENT: Shows Pallor , no scleral icterus. Oral mucous membrane is dry. No pharyngeal erythema or thrush NECK: Trachea central, no thyromegaly. LUNGS: Unlabored breathing. decreased breath sounds at bases. No wheeze or crackle. HEART: S1, S2, regular rate and rhythm. No loud murmur ABDOMEN: Soft, no tenderness , guarding or rigidity, no organomegaly EXTREMITIES: No edema of feet. SKIN: No rash, no masses palpable. NEUROLOGICAL: The patient is awake, alert, oriented x3, mood and affect normal. Results CBC & Chem 7: 11/17/20 05:52 11/17/20 05:52 Labs: Abnormal Lab Results - Last 24 Hours (Table) 07/11/16/20 11/16/20 Range/Units 11:51 15:42 21:20 Hgb (13.0-17.5) gm/dL Plt Count (150-450) k/uL D-Dimer 0.78 H (<0.60) mg/L FEU Carbon Dioxide (22-30) mmol/L Creatinine (0.66-1.25) mg/dL Glucose (74-99) mg/dL POC Glucose (mg/dL) 307 H (75-99) mg/dL Hemoglobin A1c 6.4 H (4.0-6.0) % Alkaline Phosphatase (38-126) U/L Total Protein (6.3-8.2) g/dL Albumin (3.5-5.0) g/dL 11/17/20 11/17/20 11/17/20 Range/Units 05:52 05:52 06:45 Hgb 12.2 L (13.0-17.5) gm/dL Plt Count 90 L (150-450) k/uL D-Dimer (<0.60) mg/L FEU Carbon Dioxide 31 H (22-30) mmol/L Creatinine 0.63 L (0.66-1.25) mg/dL Glucose 315 H (74-99) mg/dL POC Glucose (mg/dL) 292 H (75-99) mg/dL Hemoglobin A1c (4.0-6.0) % Alkaline Phosphatase 165 H (38-126) U/L Total Protein 5.6 L (6.3-8.2) g/dL Albumin 3.2 L (3.5-5.0) g/dL 11/17/20 Range/Units 11:41 Hgb (13.0-17.5) gm/dL Plt Count (150-450) k/uL D-Dimer (<0.60) mg/L FEU Carbon Dioxide (22-30) mmol/L Creatinine (0.66-1.25) mg/dL Glucose (74-99) mg/dL POC Glucose (mg/dL) 200 H (75-99) mg/dL Hemoglobin A1c (4.0-6.0) % Alkaline Phosphatase (38-126) U/L Total Protein (6.3-8.2) g/dL Albumin (3.5-5.0) g/dL Microbiology - Last 24 Hours (Table) 11/16/20 11:51 Blood Culture - Preliminary Blood No Growth after 24 hours 11/16/20 11:51 Blood Culture - Preliminary Blood No Growth after 24 hours Assessment and Plan Assessment: 1-patient presented to hospital with sepsis in this patient who did have a fever elevated white count with predominant respiratory symptoms with evidence of multifocal pneumonia on the CT angiogram of the chest concern likely for community-acquired pneumonia with concern for possible typical versus atypical pathogen patient has been ruled out for coronavirus with a negative PCR. (1) Sepsis Current Visit: Yes Status: Acute Code(s): A41.9 - SEPSIS, UNSPECIFIED ORGANISM SNOMED Code(s): 46724282 (2) Pneumonia Current Visit: No Status: Acute Code(s): J18.9 - PNEUMONIA, UNSPECIFIED ORGANISM SNOMED Code(s): 473031659 Plan: 1-we will obtain a sputum for Gram stain and culture 2-check urine for Legionella antigen and procalcitonin level 3-discontinue vancomycin and Zosyn 4-start the patient on Rocephin 2 g daily and Levaquin We will follow on clinical condition and cultures to further adjust medication if needed Thank you for this consultation we will follow the patient along with you Time with Patient: Greater than 30
[2020-11-17] MEDS: MIRTAZAPINE 15 MG TAB PO SCH (23:35)
[2020-11-18] MEDS ORDERED: MD COMMUNICATION TO PHARMACY 1 EACH MISC PO PRN (01:49)
[2020-11-18 02:11] LABS: Glucose,Whole Blood 425 mg/dL (75-99)
[2020-11-18] MEDS ORDERED: INSULIN REGULAR BOLUS (FROM DRIP BAG) IV ONE (03:02)
[2020-11-18] MEDS: INSULIN REGULAR 100 UNIT in SODIUM CHLORIDE 0.9% 100 ML IV SCH ×3 (03:47→16:51)
[2020-11-18] MEDS ORDERED: SODIUM CHLORIDE 0.9% 250 ML IV SCH (04:30)
[2020-11-18 04:38] LABS: Glucose,Whole Blood 327 mg/dL (75-99)
[2020-11-18 05:16] LABS: Glucose,Whole Blood 285 mg/dL (75-99)
[2020-11-18 05:50] LABS: Glucose,Whole Blood 277 mg/dL (75-99)
[2020-11-18] MEDS: LEVOFLOXACIN 750 MG TAB PO SCH ×2 (05:52→07:34)
[2020-11-18 06:25] LABS: Glucose,Whole Blood 228 mg/dL (75-99)
[2020-11-18] MEDS: INSULIN ASPART (NovoLOG) 100 UNIT/ML VIAL SQ SCH ×5 (07:22→21:08)
[2020-11-18 07:28] LABS: Glucose,Whole Blood 240 mg/dL (75-99)
[2020-11-18] MEDS: ENOXAPARIN 40 MG/0.4 ML SYRINGE SQ SCH (07:32)
[2020-11-18] MEDS: methylPREDNISolone SOD SUCCI 125 MG/2 ML VIAL IV SCH ×3 (07:33→23:21)
[2020-11-18] MEDS: lamoTRIgine 100 MG TAB PO SCH ×2 (07:34→21:07)
[2020-11-18] MEDS: BUMETANIDE 1 MG TAB PO SCH (07:34)
[2020-11-18] MEDS: PANTOPRAZOLE 40 MG TABLET PO SCH ×2 (07:34→21:09)
[2020-11-18 07:36] LABS: ALT 32 U/L (4-49); AST 30 U/L (17-59); African American GFR (CKD) >90 (>60 ml/min/1.73 sqM); Albumin 3.8 g/dL (3.5-5.0); Albumin/Globulin Ratio 1.5; Alkaline Phosphatase 156 U/L (38-126); Anion Gap 8 mmol/L; Blood Urea Nitrogen 13 mg/dL (9-20); Calcium 9.6 mg/dL (8.4-10.2); Carbon Dioxide 26 mmol/L (22-30); Chloride 105 mmol/L (98-107); Globulin 2.6 g/dL; Glucose 264 mg/dL (74-99); Non-African American GFR(CKD) >90 (>60 ml/min/1.73 sqM); Potassium 3.9 mmol/L (3.5-5.1); Sodium 139 mmol/L (137-145); Total Bilirubin 0.4 mg/dL (0.2-1.3); Total Protein 6.4 g/dL (6.3-8.2)
[2020-11-18 07:42] LABS: Basophils % (A) 0 %; Eosinophils % (A) 1 %; HCT 41.5 % (39.0-53.0); HGB 12.9 gm/dL (13.0-17.5); Lymphocytes # (A) 1.1 k/uL (1.0-4.8); Lymphocytes % (A) 15 %; MCH 27.4 pg (25.0-35.0); MCHC 31.1 g/dL (31.0-37.0); MCV 88.3 fL (80.0-100.0); Mean Platelet Volume 12.8; Monocytes # (A) 0.2 k/uL (0-1.0); Monocytes % (A) 2 %; Neutrophils # (A) 6.1 k/uL (1.3-7.7); Neutrophils % (A) 82 %; RDW 14.7 % (11.5-15.5); WBC 7.5 k/uL (3.8-10.6)
[2020-11-18 07:45] LABS: Platelet Count 91 k/uL (150-450)
[2020-11-18 07:53] LABS: C Reactive Protein 6.7 mg/dL (<1.0)
[2020-11-18] MEDS: SYMBICORT 160-4.5 MCG INHALER INHALATION SCH ×2 (08:02→20:39)
[2020-11-18 08:23] LABS: Glucose,Whole Blood 265 mg/dL (75-99)
[2020-11-18 08:47] LABS: Large Platelets Present
[2020-11-18 09:31] LABS: Glucose,Whole Blood 256 mg/dL (75-99)
[2020-11-18] MEDS: BUPRENORPHINE HCL SUBLINGUAL SCH ×2 (09:31→21:08)
[2020-11-18] MEDS: NALOXONE HCL SUBLINGUAL SCH ×2 (09:31→21:08)
[2020-11-18] MEDS: [UNRECOGNIZED DRUG - OTHER] SUBLINGUAL SCH ×2 (09:31→21:08)
[2020-11-18 10:31] LABS: Glucose,Whole Blood 279 mg/dL (75-99)
[2020-11-18 11:30] LABS: Glucose,Whole Blood 229 mg/dL (75-99)
[2020-11-18 12:26] LABS: Glucose,Whole Blood 260 mg/dL (75-99)
--- NOTE | 2020-11-18 13:12 | P.CNPUL ---
History of Present Illness Consult date: 11/18/20 Reason for consult: pneumonia History of present illness: 45-year-old male patient coming into the hospital because of generalized weakness, altered mentation, some increased cough and sputum production. He had occasional cough and some increased dyspnea. No documented fever. No headache. No neck stiffness. No nausea. No vomiting. No diarrhea. No abdominal pain. His initial temperature was 100.6 and he was tachycardic. He was slightly tachypneic. His white cell count was at 15.9. His chest x-ray showed limited infiltrates in the lung bases. COVID-19 testing was negative. The patient subsequently got a CT angiogram of the chest and it showed no evidence of any pulmonary embolism. There was some limited infiltration of the lung bases bilaterally more so on the right. Clinically is feeling better. Is currently on a combination of Rocephin and Levaquin.. Mental status is completely within normal limits. He is alert and oriented 3. No complaints otherwise for now. He is follow-up white cell count is at 7.5. His pro-calcitonin level came back at 0.27. UA was negative. Urine drug screen was also negative. Review of Systems Constitutional: Reports fatigue, Reports fever, Reports lethargy, Reports weakness Eyes: denies as per HPI, denies blurred vision, denies bulging eye, denies decreased vision, denies diplopia, denies discharge, denies dry eye, denies irritation, denies itching, denies pain, denies photophobia, denies loss of peripheral vision, denies loss of vision, denies tunnel vision/blind spots Ears: deny: decreased hearing, ear discharge, earache, tinnitus Ears, nose, mouth and throat: Reports as per HPI Breasts: absent: as per HPI, gynecomastia Cardiovascular: Reports decreased exercise tolerance, Reports dyspnea on exertion, Reports shortness of breath Respiratory: Reports cough, Reports dyspnea, Reports wheezing Gastrointestinal: Reports as per HPI Genitourinary: Reports as per HPI Musculoskeletal: Reports as per HPI Musculoskeletal: absent: ankle pain, ankle stiffness, ankle swelling, as per HPI, elbow pain, elbow stiffness, elbow swelling, foot pain, foot stiffness, foot swelling, hand pain, hand stiffness, hand swelling, hip pain, hip stiffness, hip swelling, knee pain, knee stiffness, knee swelling, shoulder pain, shoulder stiffness, shoulder swelling, wrist pain, wrist stiffness, wrist swelling Integumentary: Reports as per HPI Neurological: Reports confusion Psychiatric: Reports as per HPI Endocrine: Reports fatigue Hematologic/Lymphatic: Reports as per HPI Allergic/Immunologic: Reports as per HPI 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 with surgery/difficulty with incision healing/past cellulitis abdomin, IDDM type II, bronchitis, R lung spontaneous pneumo with surgery, last seizure 2011, hepatitis C with interferon over 6 yrs ago, past IV drug abuse-no drugs for over one year except for one slip/on suboxone, DDD, occasional low back pain, History of Any Multi-Drug Resistant Organisms: None Reported Past Surgical History: Appendectomy, Cholecystectomy Additional Past Surgical History / Comment(s): 2018 lap/laparotomy/partial omenectomy/cystogastrectomy/lysis of adhesions, 2019 open incision hernia repair with mesh-difficulty with incision healing since, EGD, colonoscopy, R lung thorascopy/decortication, bilateral eye RK for vision correction. Past Anesthesia/Blood Transfusion Reactions: No Reported Reaction Past Psychological History: Anxiety, Bipolar, Depression Smoking Status: Current every day smoker Past Alcohol Use History: None Reported Past Drug Use History: None Reported - Past Family History Brother(s) Additional Family Medical History / Comment(s): Chronic alcoholism in 2 brothers Sister(s) Additional Family Medical History / Comment(s): Chronic alcoholism Daughter(s) Family Medical History: No Reported History Additional Family Medical History / Comment(s): One daughter healthy Son(s) Family Medical History: No Reported History Additional Family Medical History / Comment(s): One son healthy Father History Unknown: Yes Family Medical History: AICD/Pacemaker, Myocardial Infarction ([place]), Renal Disease Additional Family Medical History / Comment(s): Schizophrenia. Per patient, his father at the age of 59 from renal failure. Mother History Unknown: Yes Family Medical History: Hypertension Additional Family Medical History / Comment(s): HPV Medications and Allergies Home Medications Medication Instructions Recorded Confirmed Type Mirtazapine [Remeron] 15 mg PO HS 11/23/11/16/20 History lamoTRIgine [LaMICtal] 100 mg PO BID 03/13/17 11/16/20 History OLANZapine [ZyPREXA] 10 mg PO HS 03/28/18 11/16/20 History Buprenorphine HCl/Naloxone HCl 1 tab SL BID 01/27/20 11/16/20 History [Buprenorphine-Nalox 8-2 mg Tab] INSULIN ASPART (NovoLOG) [NovoLOG See Protocol SQ AC-TID 07/21/20 11/16/20 History (formulary)] Insulin Glargine [Lantus] See Protocol SQ HS 07/21/20 11/16/20 History Omeprazole 20 mg PO BID 07/21/20 11/16/20 History Budesonide-Formot 160-4.5 Mcg 2 puff INHALATION RT-BID 07/27/20 11/16/20 History [Symbicort 160-4.5 Mcg Inhaler] Nystatin 100,000Unit/gm Cream 1 applic TOPICAL DAILY PRN 7 Days 08/05/20 11/16/20 Rx [Mycostatin Cream] #7 applic Bumetanide [Bumex] 1 mg PO DAILY 11/16/20 11/16/20 History Potassium Chloride [Klor-Con 10] 10 meq PO DAILY 11/16/20 11/16/20 History Allergies Allergy/AdvReac Type Severity Reaction Status Date / Time codeine Allergy Swelling Verified 11/16/20 15:50 furosemide [From Lasix] Allergy Rash/Hives Verified 11/16/20 15:50 haloperidol [From Haldol] Allergy Unknown Verified 11/16/20 15:50 prochlorperazine Allergy Swelling Verified 11/16/20 15:50 Physical Exam Vitals: Vital Signs Temp Pulse Resp BP Pulse Ox 11/18/20 08:00 97.4 F L 59 L 16 116/73 95 11/18/20 02:00 98.3 F 72 15 104/62 92 L 11/17/20 20:00 97.8 F 86 17 130/74 95 11/17/20 14:00 97.9 F 79 18 146/77 94 L Intake and Output 11/17/20 11/18/20 11/18/20 22:59 06:59 14:59 Intake Total 53.833 51.109 Output Total 500 Balance -446.167 51.109 Intake: Intake, IV Titration 53.833 51.109 Amount Insulin Regular 100 unit 53.833 51.109 In Sodium Chloride 0.9% 100 ml @ Titrate IV .Q0M COUNT INCLUDES THE [facility] Rx#:[id number] Output: Urine 500 Other: Voiding Method Toilet Urinal Gen. appearance, comfortable likely distress Head exam was generally normal. There was no scleral icterus or corneal arcus. Mucous membranes were moist. Neck was supple and without jugular venous distension, thyromegaly, or carotid bruits. Carotids were easily palpable bilaterally. There was no adenopathy. Lungs sounds are diminished and the patient is scattered expiratory wheezes throughout the lung joyce bilaterally Cardiac exam revealed the PMI to be normally situated and sized. The rhythm was regular and no extrasystoles were noted during several minutes of auscultation. The first and second heart sounds were normal and physiologic splitting of the second heart sound was noted. There were no murmurs, rubs, clicks, or gallops. Abdominal exam revealed normal bowel sounds. The abdomen was soft, non-tender, and without masses, organomegaly, or appreciable enlargement of the abdominal aorta. Examination of the extremities revealed easily palpable radial, femoral and pedal pulses. There was no cyanosis, clubbing or edema. Examination of the skin revealed no evidence of significant rashes, suspicious appearing nevi or other concerning lesions. Neurologically, the patient is awake and alert and the patient does not have any focal neurological deficit. Cranial nerves are essentially intact. Results - Laboratory Findings CBC and BMP: 11/18/20 05:54 11/18/20 05:54 PT/INR, D-dimer PT 11.2 sec (9.0-12.0) 11/16/20 11:51 INR 1.1 (<1.2) 11/16/20 11:51 D-Dimer 0.20 mg/L FEU (<0.60) 11/18/20 05:54 Abnormal lab findings: Abnormal Labs 11/16/20 11/16/20 11/16/20 11:51 11:51 11:51 WBC 15.9 H Hgb Plt Count 101 L Neutrophils # 13.4 H D-Dimer Sodium 133 L Potassium 5.2 H Carbon Dioxide Creatinine 0.56 L Glucose 378 H POC Glucose (mg/dL) Hemoglobin A1c Plasma Lactic Acid Mynor 4.0 H* AST 81 H Alkaline Phosphatase 185 H C-Reactive Protein Total Protein Albumin Procalcitonin Urine Glucose (UA) 11/16/20 11/16/20 11/16/20 11:51 11:54 14:22 WBC Hgb Plt Count Neutrophils # D-Dimer 0.78 H Sodium Potassium Carbon Dioxide Creatinine Glucose POC Glucose (mg/dL) 390 H Hemoglobin A1c Plasma Lactic Acid Mynor AST Alkaline Phosphatase C-Reactive Protein Total Protein Albumin Procalcitonin Urine Glucose (UA) 4+ H 11/16/20 11/16/20 11/17/20 15:42 21:20 05:52 WBC Hgb Plt Count Neutrophils # D-Dimer Sodium Potassium Carbon Dioxide 31 H Creatinine 0.63 L Glucose 315 H POC Glucose (mg/dL) 307 H Hemoglobin A1c 6.4 H Plasma Lactic Acid Mynor AST Alkaline Phosphatase 165 H C-Reactive Protein Total Protein 5.6 L Albumin 3.2 L Procalcitonin Urine Glucose (UA) 11/17/20 11/17/20 11/17/20 05:52 06:45 11:41 WBC Hgb 12.2 L Plt Count 90 L Neutrophils # D-Dimer Sodium Potassium Carbon Dioxide Creatinine Glucose POC Glucose (mg/dL) 292 H 200 H Hemoglobin A1c Plasma Lactic Acid Mynor AST Alkaline Phosphatase C-Reactive Protein Total Protein Albumin Procalcitonin Urine Glucose (UA) 11/17/20 11/17/20 11/18/20 16:58 20:28 02:07 WBC Hgb Plt Count Neutrophils # D-Dimer Sodium Potassium Carbon Dioxide Creatinine Glucose POC Glucose (mg/dL) 234 H 420 H 425 H Hemoglobin A1c Plasma Lactic Acid Mynor AST Alkaline Phosphatase C-Reactive Protein Total Protein Albumin Procalcitonin Urine Glucose (UA) 11/18/20 11/18/20 11/18/20 04:35 05:15 05:49 WBC Hgb Plt Count Neutrophils # D-Dimer Sodium Potassium Carbon Dioxide Creatinine Glucose POC Glucose (mg/dL) 327 H 285 H 277 H Hemoglobin A1c Plasma Lactic Acid Mynor AST Alkaline Phosphatase C-Reactive Protein Total Protein Albumin Procalcitonin Urine Glucose (UA) 11/18/20 11/18/20 11/18/20 05:54 05:54 05:54 WBC Hgb 12.9 L Plt Count 91 L Neutrophils # D-Dimer Sodium Potassium Carbon Dioxide Creatinine 0.51 L Glucose 264 H POC Glucose (mg/dL) Hemoglobin A1c Plasma Lactic Acid Mynor AST Alkaline Phosphatase 156 H C-Reactive Protein 6.7 H Total Protein Albumin Procalcitonin 0.27 H Urine Glucose (UA) 11/18/20 11/18/20 11/18/20 06:23 07:27 08:21 WBC Hgb Plt Count Neutrophils # D-Dimer Sodium Potassium Carbon Dioxide Creatinine Glucose POC Glucose (mg/dL) 228 H 240 H 265 H Hemoglobin A1c Plasma Lactic Acid Mynor AST Alkaline Phosphatase C-Reactive Protein Total Protein Albumin Procalcitonin Urine Glucose (UA) 11/18/20 11/18/20 11/18/20 09:29 10:29 11:28 WBC Hgb Plt Count Neutrophils # D-Dimer Sodium Potassium Carbon Dioxide Creatinine Glucose POC Glucose (mg/dL) 256 H 279 H 229 H Hemoglobin A1c Plasma Lactic Acid Mynor AST Alkaline Phosphatase C-Reactive Protein Total Protein Albumin Procalcitonin Urine Glucose (UA) 11/18/20 12:24 WBC Hgb Plt Count Neutrophils # D-Dimer Sodium Potassium Carbon Dioxide Creatinine Glucose POC Glucose (mg/dL) 260 H Hemoglobin A1c Plasma Lactic Acid Mynor AST Alkaline Phosphatase C-Reactive Protein Total Protein Albumin Procalcitonin Urine Glucose (UA) - Diagnostic Findings Chest x-ray: image reviewed CT scan - chest: image reviewed Assessment and Plan Plan: 1 acute lower lobe pneumonia, bilateral, with secondary fever, altered mentation and generalized weakness and other constitutional symptoms. Clinically improved. Mental status back to normal. No evidence of any focal neurological deficit. Cultures still pending for now. Lactic acid level elevated time of admission and subsequently normalized, yet the Pronestyl level is mildly elevated. Clinically doing better for now. 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
[2020-11-18 13:51] LABS: Glucose,Whole Blood 342 mg/dL (75-99)
[2020-11-18 14:29] LABS: Glucose,Whole Blood 291 mg/dL (75-99)
[2020-11-18 15:37] LABS: Glucose,Whole Blood 304 mg/dL (75-99)
--- NOTE | 2020-11-18 15:41 | P.CONS ---
History of Present Illness - Reason for Consult Consult date: 11/18/20 abnormal ultrasound Requesting physician: Marialuisa Espinoza - Chief Complaint not feeling well, fever - History of Present Illness 45-year-old male who presented to the emergency department 2 days ago with complaints of lightheadedness, shortness of breath, altered mental status changes and fever. Patient states symptoms began 2 days before coming to the emergency department. He was diagnosed with pneumonia and sepsis. He had a max temperature of 101.2. He had an ultrasound of the liverthat showed heterogeneous hyperechoic liver with enlarged right hepatic lobe findings suggestive of hepatic steatosis or hepatocellular disease. He also has a cystic lesion in the region of the pancreas measuring 5.1 cm could represent a pancreatic cystic lesion or a. Pancreatic fluid collection. Appears that there was a cystic lesion associated with the tail the pancreas seen on CT of the abdomen and pelvis dated 01/27/2020 however at this time it measured up to 2.3 cm. Patient states he does have a history of chronic pancreatitiswhich she states started from gallstone pancreatitis and a history of pancreatic cysts and underwentsurgery 2 years ago. He has a history of IV drug abuse in the past and diagnosed with hepatitis C treated with interferon over 6 years ago. Current labs WBC 7.5,hemoglobin 12.9, hematocrit 41, platelet count91,000, total bilirubin 0.4, alkaline phosphatase 156, AST 30, ALT 32. At that time patient denies any abdominal pain, nausea, or vomiting. Exact etiology of chronic pancreatitis is unclear. He denies any past history or current use of alcohol abuse. Review of Systems REVIEW OF SYSTEMS: CARDIOPULMONARY: No chest pain or shortness of breath. Gastrointestinal: No abdominal pain. No nausea or vomiting. No hematemesis, coffee-ground emesis. No rectal bleeding, or melena. GENITOURINARY: No dysuria or hematuria. MUSCULOSKELETAL: Reports normal range of motion., Joint pain. SKIN: No rashes. No jaundice. ENDOCRINE: No chills, fevers. No excessive weight gain or loss. No polydipsia or polyuria. PSYCHIATRIC: Unremarkable. NEUROLOGY: No change in mental status. Denies dizziness, headache. ENT: Vision unremarkable. CONSTITUTIONAL: No recent weight loss. No fever, chills, night sweats. 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 with surgery/difficulty with incision healing/past cellulitis abdomin, IDDM type II, bronchitis, R lung spontaneous pneumo with surgery, last seizure 2011, hepatitis C with interferon over 6 yrs ago, past IV drug abuse-no drugs for over one year except for one slip/on suboxone, DDD, occasional low back pain, History of Any Multi-Drug Resistant Organisms: None Reported Past Surgical History: Appendectomy, Cholecystectomy Additional Past Surgical History / Comment(s): 2018 lap/laparotomy/partial omenectomy/cystogastrectomy/lysis of adhesions, 2019 open incision hernia repair with mesh-difficulty with incision healing since, EGD, colonoscopy, R lung thorascopy/decortication, bilateral eye RK for vision correction. Past Anesthesia/Blood Transfusion Reactions: No Reported Reaction Past Psychological History: Anxiety, Bipolar, Depression Smoking Status: Current every day smoker Past Alcohol Use History: None Reported Past Drug Use History: None Reported - Past Family History Brother(s) Additional Family Medical History / Comment(s): Chronic alcoholism in 2 brothers Sister(s) Additional Family Medical History / Comment(s): Chronic alcoholism Daughter(s) Family Medical History: No Reported History Additional Family Medical History / Comment(s): One daughter healthy Son(s) Family Medical History: No Reported History Additional Family Medical History / Comment(s): One son healthy Father History Unknown: Yes Family Medical History: AICD/Pacemaker, Myocardial Infarction (CA), Renal Disease Additional Family Medical History / Comment(s): Schizophrenia. Per patient, his father at the age of 59 from renal failure. Mother History Unknown: Yes Family Medical History: Hypertension Additional Family Medical History / Comment(s): HPV Medications and Allergies Home Medications Medication Instructions Recorded Confirmed Type Mirtazapine [Remeron] 15 mg PO HS 11/23/16 11/16/20 History lamoTRIgine [LaMICtal] 100 mg PO BID 03/13/17 11/16/20 History OLANZapine [ZyPREXA] 10 mg PO HS 03/28/18 11/16/20 History Buprenorphine HCl/Naloxone HCl 1 tab SL BID 01/27/20 11/16/20 History [Buprenorphine-Nalox 8-2 mg Tab] INSULIN ASPART (NovoLOG) [NovoLOG See Protocol SQ AC-TID 07/21/20 11/16/20 History (formulary)] Insulin Glargine [Lantus] See Protocol SQ HS 07/21/20 11/16/20 History Omeprazole 20 mg PO BID 07/21/20 11/16/20 History Budesonide-Formot 160-4.5 Mcg 2 puff INHALATION RT-BID 07/27/20 11/16/20 History [Symbicort 160-4.5 Mcg Inhaler] Nystatin 100,000Unit/gm Cream 1 applic TOPICAL DAILY PRN 7 Days 08/05/20 11/16/20 Rx [Mycostatin Cream] #7 applic Bumetanide [Bumex] 1 mg PO DAILY 11/16/20 11/16/20 History Potassium Chloride [Klor-Con 10] 10 meq PO DAILY 11/16/20 11/16/20 History Allergies Allergy/AdvReac Type Severity Reaction Status Date / Time codeine Allergy Swelling Verified 11/16/20 15:50 furosemide [From Lasix] Allergy Rash/Hives Verified 11/16/20 15:50 haloperidol [From Haldol] Allergy Unknown Verified 11/16/20 15:50 prochlorperazine Allergy Swelling Verified 11/16/20 15:50 Physical Exam Vitals: Vital Signs Temp Pulse Resp BP Pulse Ox 11/18/20 08:00 97.4 F L 59 L 16 116/73 95 11/18/20 02:00 98.3 F 72 15 104/62 92 L 11/17/20 20:00 97.8 F 86 17 130/74 95 11/17/20 14:00 97.9 F 79 18 146/77 94 L Intake and Output 11/17/20 11/18/20 11/18/20 22:59 06:59 14:59 Intake Total 53.833 21.967 Output Total 500 Balance -446.167 21.967 Intake: Intake, IV Titration 53.833 21.967 Amount Insulin Regular 100 unit 53.833 21.967 In Sodium Chloride 0.9% 100 ml @ Titrate IV .Q0M [facility] Rx#:[id number] Output: Urine 500 Other: Voiding Method Toilet Urinal General appearance: The patient is alert, oriented, appears in no acute distress. Obese. HET: Head is normocephalic and atraumatic. Conjunctiva pink. Sclera anicteric. Neck: Supple without lymphadenopathy. Trachea midline. Heart: S1 S2. Regular rate and rhythm. Lungs: Clear to auscultation. Abdomen: Soft,nontender, nondistended with bowel sounds. No guarding or rigidity. Skin: No rashes. No jaundice. Extremities: Normal skin color and turgor. No pedal edema. Neurological: No focal deficits. Alert and oriented 3.. Results CBC & Chem 7: 11/18/20 05:54 11/18/20 05:54 Labs: Abnormal Lab Results - Last 24 Hours (Table) 11/17/20 11/17/20 11/17/20 Range/Units 11:41 16:58 20:28 Hgb (13.0-17.5) gm/dL Plt Count (150-450) k/uL Creatinine (0.66-1.25) mg/dL Glucose (74-99) mg/dL POC Glucose (mg/dL) 200 H 234 H 420 H (75-99) mg/dL Alkaline Phosphatase (38-126) U/L C-Reactive Protein (<1.0) mg/dL 11/18/20 11/18/20 11/18/20 Range/Units 02:07 04:35 05:15 Hgb (13.0-17.5) gm/dL Plt Count (150-450) k/uL Creatinine (0.66-1.25) mg/dL Glucose (74-99) mg/dL POC Glucose (mg/dL) 425 H 327 H 285 H (75-99) mg/dL Alkaline Phosphatase (38-126) U/L C-Reactive Protein (<1.0) mg/dL 11/18/20 11/18/20 11/18/20 Range/Units 05:49 05:54 05:54 Hgb 12.9 L (13.0-17.5) gm/dL Plt Count 91 L (150-450) k/uL Creatinine 0.51 L (0.66-1.25) mg/dL Glucose 264 H (74-99) mg/dL POC Glucose (mg/dL) 277 H (75-99) mg/dL Alkaline Phosphatase 156 H (38-126) U/L C-Reactive Protein 6.7 H (<1.0) mg/dL 11/18/20 11/18/20 11/18/20 Range/Units 06:23 07:27 08:21 Hgb (13.0-17.5) gm/dL Plt Count (150-450) k/uL Creatinine (0.66-1.25) mg/dL Glucose (74-99) mg/dL POC Glucose (mg/dL) 228 H 240 H 265 H (75-99) mg/dL Alkaline Phosphatase (38-126) U/L C-Reactive Protein (<1.0) mg/dL 11/18/20 Range/Units 09:29 Hgb (13.0-17.5) gm/dL Plt Count (150-450) k/uL Creatinine (0.66-1.25) mg/dL Glucose (74-99) mg/dL POC Glucose (mg/dL) 256 H (75-99) mg/dL Alkaline Phosphatase (38-126) U/L C-Reactive Protein (<1.0) mg/dL Microbiology - Last 24 Hours (Table) 11/16/20 11:51 Blood Culture - Preliminary Blood No Growth after 24 hours 11/16/20 11:51 Blood Culture - Preliminary Blood No Growth after 24 hours Comments: liver ultrasound: heterogeneous hyperechoic liver with enlarged right hepatic lobe findings suggesting hepatic steatosis or hepatocellular disease. Cystic lesion in the region of the pancreas measuring 5.1 cm could represent a pancreatic cystic lesion or a . Pancreatic fluid collection. It appears that there was a cystic lesion associated with the tail of the pancreas seen on CT abdomen and pelvis dated 01/27/2020 however at the time it measured up to 2.3 cm. Assessment and Plan (1) Pancreatic cyst Narrative/Plan: 45-year-old male with a history of chronic pancreatitis which she states is r elated to gallstone pancreatitis and history of pancreatic cyst who underwent surgery. Patient denies any past history of alcohol abuse or current alcohol abuse he does have a history of IV drug use and hepatitis C for which he was treated with interferon. He resented to the emergency room with complaints of not feeling well with increased shortness of breath mental status changes and fever and was diagnosed with pneumonia and sepsis. He underwent an ultrasound of the liver which showed heterogeneous hyperechoic liver with enlarged right hepatic lobe findings suggesting hepatic steatosis or hepatocellular disease. Cystic lesion in the region of the pancreas measuring 5.1 cm could represent a pancreatic cystic lesion or pancreatic fluid collection. Patient had a previous CT of the abdomen and pelvis dated 01/27/2020 it did show a cystic lesion associated with the tail the pancreas but at that time it measured 2.3 cm. The patient is not having any abdominal pain. It is unclear exact etiology of chronic pancreatitis, we will order IgG4, triglycerides Current Visit: Yes Status: Acute Code(s): K86.2 - CYST OF PANCREAS SNOMED Code(s): 42223565 (2) Chronic pancreatitis Current Visit: Yes Status: Acute Code(s): K86.1 - OTHER CHRONIC PANCREATITIS SNOMED Code(s): 844546043 (3) History of hepatitis C Current Visit: No Status: Resolved Code(s): Z86.19 - PERSONAL HISTORY OF OTHER INFECTIOUS AND PARASITIC DISEASES SNOMED Code(s): 56512744705102 Plan: 1. IgG 4, MAYA, triglycerides ordered 2. Ultrasound of liver reviewed 3. Recommend patient to follow-up with gastroenterology to monitor pancreatic 6 outpatient. Patient currently without any abdominal pain. 4. Continue IV antibiotics as ordered, continue medical management. Thank you for this consultation, we will continue to follow
[2020-11-18 17:28] LABS: Glucose,Whole Blood 390 mg/dL (75-99)
--- NOTE | 2020-11-18 17:34 | P.PN ---
Subjective Progress Note Date: 11/18/20 Juan Ralph is a 45 year old male who presented to [facility] emergency room with a chief complaint of worsening shortness of breath He was evaluated in the emergency room vital examination on presentation revealed a temperature of 100.6 pulse 126 respiration 24 blood pressure 133/67 p ulse ox 90% on room air Laboratory data reveals a white blood count of 15.9 hemoglobin 13.9 platelet count 101 sodium 133 potassium 5.2 chloride 100 CO2 23 BUN 9 creatinine 0.59 glucose level 378 asthma lactic acid 4.0 AST 81 alkaline phosphatase 185 coronavirus PCR was negative. D-dimer was not done, urine toxicology screen was not done in the emergency room. Testing in the emergency room revealed chest x-ray done in the emergency room revealed linear atelectasis in both lung bases with possible infiltrates particularly at the right medial lung base Patient was admitted to medical floor for further evaluation and treatment, he was started on IV antibiotic Zosyn and vancomycin in the emergency room Past medical history is significant for insulin-dependent diabetes mellitus, depression with bipolar disorder, history of COPD, history of tobacco use, and previous history of drug abuse, patient also has a previous history of common bile duct obstruction due to biliary stone leading to infection and necrosis requiring partial pancreas resection. On review of systems Patient was seen and examined, he is alert and oriented x 3 in no distress, he is complaining of occasional cough and shortness of breath otherwise he denies any complaints there is no fever or chills no headache or dizziness no chest pain, no palpitation no nausea or vomiting no abdominal pain no diarrhea no blood in the stools no burning with urination no frequency or urgency and no hematuria, there is no weakness or numbness in any of the extremities no change in vision speech or gait. On 11/17/2020 patient alert and oriented 3. Patient still complaining of some mild shortness of breath. Lactic acid 1.9. Patient remains on Zosyn and vancomycin. Liver ultrasound results pending. Awaiting infectious disease input. At this time patient denies chest pain or shortness of breath. Patient denies nausea vomiting or diarrhea. Patient denies any urinary burning or frequency. White blood cell improving to 9.5 On 11/18/2020 Patient was seen and examined on the medical floor, he is alert and oriented x 3 in no distress, he denies any complaints there is no fever or chills no headache or dizziness no chest pain no shortness of breath no palpitation no cough no nausea or vomiting no abdominal pain no diarrhea no blood in the stools no burning with urination no frequency or urgency and no hematuria, there is no weakness or numbness in any of the extremities no change in vision speech or gait. Patient is feeling better antibiotics adjusted to Rocephin and Levaquin by infectious disease at this time glucose is better controlled we will discontinue insulin drip and start Lantus 60 units at bedtime and NovoLog 20 units before each meal and NovoLog sliding scale before meals Objective - Vital Signs Vital signs: Vital Signs Temp 97.4 F L 11/18/20 08:00 Pulse 59 L 11/18/20 08:00 Resp 16 11/18/20 08:00 BP 116/73 11/18/20 08:00 Pulse Ox 95 11/18/20 08:00 Intake & Output 11/17/20 11/18/20 11/18/20 18:59 06:59 18:59 Intake Total 53.833 63.276 Output Total 500 Balance -446.167 63.276 Intake: Intake, IV Titration 53.833 63.276 Amount Insulin Regular 100 unit 53.833 63.276 In Sodium Chloride 0.9% 100 ml @ Titrate IV .Q0M [facility] Rx#:[id number] Output: Urine 500 Other: Voiding Method Toilet Toilet Urinal Urinal - Exam In general patient is alert and oriented x 3 in no distress HEENT head normocephalic and atraumatic Neck is supple no JVD no goiter no lymphadenopathy no carotid bruit Chest examination reveals a scattered crackles bilaterally no wheezing Cardiac exam reveals regular heart sounds S1 and S2 no gallops no murmurs Abdomen is soft nontender no organomegaly with normal bowel sounds Extremity exam reveals no edema no cyanosis or clubbing Neurological examination reveals no gross focal deficits - Labs CBC & Chem 7: 11/18/20 05:54 11/18/20 05:54 Labs: Abnormal Lab Results - Last 24 Hours (Table) 11/17/20 11/17/20 11/18/20 Range/Units 16:58 20:28 02:07 Hgb (13.0-17.5) gm/dL Plt Count (150-450) k/uL Creatinine (0.66-1.25) mg/dL Glucose (74-99) mg/dL POC Glucose (mg/dL) 234 H 420 H 425 H (75-99) mg/dL Alkaline Phosphatase (38-126) U/L C-Reactive Protein (<1.0) mg/dL Procalcitonin (0.02-0.09) ng/mL 11/18/20 11/18/20 11/18/20 Range/Units 04:35 05:15 05:49 Hgb (13.0-17.5) gm/dL Plt Count (150-450) k/uL Creatinine (0.66-1.25) mg/dL Glucose (74-99) mg/dL POC Glucose (mg/dL) 327 H 285 H 277 H (75-99) mg/dL Alkaline Phosphatase (38-126) U/L C-Reactive Protein (<1.0) mg/dL Procalcitonin (0.02-0.09) ng/mL 11/18/20 11/18/20 11/18/20 Range/Units 05:54 05:54 05:54 Hgb 12.9 L (13.0-17.5) gm/dL Plt Count 91 L (150-450) k/uL Creatinine 0.51 L (0.66-1.25) mg/dL Glucose 264 H (74-99) mg/dL POC Glucose (mg/dL) (75-99) mg/dL Alkaline Phosphatase 156 H (38-126) U/L C-Reactive Protein 6.7 H (<1.0) mg/dL Procalcitonin 0.27 H (0.02-0.09) ng/mL 11/18/20 11/18/20 11/18/20 Range/Units 06:23 07:27 08:21 Hgb (13.0-17.5) gm/dL Plt Count (150-450) k/uL Creatinine (0.66-1.25) mg/dL Glucose (74-99) mg/dL POC Glucose (mg/dL) 228 H 240 H 265 H (75-99) mg/dL Alkaline Phosphatase (38-126) U/L C-Reactive Protein (<1.0) mg/dL Procalcitonin (0.02-0.09) ng/mL 11/18/20 11/18/20 11/18/20 Range/Units 09:29 10:29 11:28 Hgb (13.0-17.5) gm/dL Plt Count (150-450) k/uL Creatinine (0.66-1.25) mg/dL Glucose (74-99) mg/dL POC Glucose (mg/dL) 256 H 279 H 229 H (75-99) mg/dL Alkaline Phosphatase (38-126) U/L C-Reactive Protein (<1.0) mg/dL Procalcitonin (0.02-0.09) ng/mL 11/18/20 11/18/20 Range/Units 12:24 13:38 Hgb (13.0-17.5) gm/dL Plt Count (150-450) k/uL Creatinine (0.66-1.25) mg/dL Glucose (74-99) mg/dL POC Glucose (mg/dL) 260 H 342 H (75-99) mg/dL Alkaline Phosphatase (38-126) U/L C-Reactive Protein (<1.0) mg/dL Procalcitonin (0.02-0.09) ng/mL Microbiology - Last 24 Hours (Table) 11/16/20 11:51 Blood Culture - Preliminary Blood No Growth after 24 hours 11/16/20 11:51 Blood Culture - Preliminary Blood No Growth after 24 hours Assessment and Plan Plan: 1. Febrile illness with leukocytosis, possible pneumonia, patient was started o n IV Zosyn and IV vancomycin in the emergency room 2. Sepsis as evidenced by fever, leukocytosis, and elevated lactic acid. Lactic acid and white blood cell improving 3. Elevated liver enzymes AST and alkaline phosphatase Will check liver ultrasound 4. Underlying history of insulin-dependent diabetes mellitus 5. Underlying history of COPD 6. Underlying history of tobacco abuse 7. Underlying history of depression with bipolar disorder 8. Underlying history of gastroesophageal reflux disease Maintained on IV Rocephin and Levaquin Abdomen ultrasound significant for pancreatic cyst gastroenterology consultation requested D-dimer slightly elevated, CT angiogram of the chest not diagnostic for pulmonary embolism Last night patient had significantly elevated glucose levels he was started on insulin drip At this time will discontinue insulin drip and resume Lantus 60 units at bed time, NovoLog 20 units before each meal and NovoLog sliding scale Patient counseled regarding diet
--- NOTE | 2020-11-18 20:09 | PN ---
PROGRESS NOTE DATE OF SERVICE: 11/18/2020 REASON FOR FOLLOWUP: Pneumonia. INTERVAL HISTORY: The patient is afebrile. The patient is breathing slightly comfortably. The patient denies having any chest pain. Still complaining of shortness of breath and cough. Not bringing up any sputum though. No abdominal pain or diarrhea. PHYSICAL EXAMINATION: Blood pressure 102/65, pulse of 71 temperature 97.5. He is 96% on room air. General description is a middle-aged male lying in bed in no distress. Respiratory system: Unlabored breathing, decreased breath sounds in the bases, no wheeze. Heart: S1, S2. Regular rate and rhythm. Abdomen soft, no tenderness. LABS: Hemoglobin is 12.7, white count 7.5, BUN of 13, creatinine 0.51. CRP is elevated. Urine for Legionella came back negative. Blood culture negative so far. DIAGNOSTIC IMPRESSION/PLAN: Patient admitted to the hospital with sepsis, concern for pneumonia, possible community- acquired. Patient responding to the Rocephin and Levaquin, to continue. Try to obtain a sputum to narrow down his antibiotics and continue supportive care. MMODL / IJN: [id number] / PINA
[2020-11-18 20:43] LABS: Glucose,Whole Blood 450 mg/dL (75-99)
[2020-11-18] MEDS: OLANZapine 10 MG TAB PO SCH (21:07)
[2020-11-18] MEDS: MIRTAZAPINE 15 MG TAB PO SCH (21:07)
[2020-11-18] MEDS: INSULIN DETEMIR (LEVEMIR) 100 UNIT/ML SYR SQ SCH (21:08)
[2020-11-18] MEDS ORDERED: INSULIN ASPART (NovoLOG) 100 UNIT/ML VIAL SQ ONE (21:25)
[2020-11-18 21:47] LABS: Glucose,Whole Blood 442 mg/dL (75-99)
[2020-11-18 23:21] LABS: Glucose,Whole Blood 380 mg/dL (75-99)
[2020-11-19 06:07] LABS: Glucose,Whole Blood 314 mg/dL (75-99)
[2020-11-19 06:52] LABS: Glucose,Whole Blood 323 mg/dL (75-99)
[2020-11-19] MEDS: INSULIN ASPART (NovoLOG) 100 UNIT/ML VIAL SQ SCH ×7 (07:45→20:51)
[2020-11-19] MEDS: SYMBICORT 160-4.5 MCG INHALER INHALATION SCH ×2 (08:10→19:43)
[2020-11-19] MEDS: methylPREDNISolone SOD SUCCI 125 MG/2 ML VIAL IV SCH (08:15)
[2020-11-19] MEDS: BUMETANIDE 1 MG TAB PO SCH (09:24)
[2020-11-19] MEDS: PANTOPRAZOLE 40 MG TABLET PO SCH ×2 (09:25→20:52)
[2020-11-19] MEDS: LEVOFLOXACIN 750 MG TAB PO SCH (09:26)
[2020-11-19] MEDS: lamoTRIgine 100 MG TAB PO SCH ×2 (09:26→20:52)
[2020-11-19] MEDS: ENOXAPARIN 40 MG/0.4 ML SYRINGE SQ SCH (09:27)
[2020-11-19] MEDS: NALOXONE HCL SUBLINGUAL SCH ×2 (09:46→21:04)
[2020-11-19] MEDS: [UNRECOGNIZED DRUG - OTHER] SUBLINGUAL SCH ×2 (09:46→21:04)
[2020-11-19] MEDS: BUPRENORPHINE HCL SUBLINGUAL SCH ×2 (09:46→21:04)
[2020-11-19 11:12] LABS: Glucose,Whole Blood 328 mg/dL (75-99)
--- NOTE | 2020-11-19 11:36 | P.PN ---
Subjective Progress Note Date: 11/19/20 45-year-old male patient coming into the hospital because of generalized weakne ss, altered mentation, some increased cough and sputum production. He had occasional cough and some increased dyspnea. No documented fever. No headache. No neck stiffness. No nausea. No vomiting. No diarrhea. No abdominal pain. His initial temperature was 100.6 and he was tachycardic. He was slightly tachypneic. His white cell count was at 15.9. His chest x-ray showed limited infiltrates in the lung bases. COVID-19 testing was negative. The patient subsequently got a CT angiogram of the chest and it showed no evidence of any pulmonary embolism. There was some limited infiltration of the lung bases bilaterally more so on the right. Clinically is feeling better. Is currently o n a combination of Rocephin and Levaquin.. Mental status is completely within normal limits. He is alert and oriented 3. No complaints otherwise for now. He is follow-up white cell count is at 7.5. His pro-calcitonin level came back at 0.27. UA was negative. Urine drug screen was also negative. 11/19/2020 I'm seeing the patient for a follow-up. Is feeling slightly improved compared to yesterday. No fever. In terms of antibiotic coverage, he was on a combination of Rocephin and Levaquin. His CAT scan of the chest showed some limited infiltration of the lung bases bilaterally suggestive an early pneumonia and the pro-calcitonin level was slightly elevated. On today's evaluation, the blood work is still pending. Legionella urine antigen was negative. Pulse ox on room air is around 95%. No nausea. No vomiting. No chest pain. No other complaints otherwise for now. No altered mentation. Says a component of COPD exacerbation on bronchodilators and Solu-Medrol which is at a dose of 60 mg every 8 hours. Objective - Vital Signs Vital signs: Vital Signs Temp 97.8 F 11/19/20 07:57 Pulse 60 11/19/20 07:57 Resp 18 11/19/20 07:57 BP 108/69 11/19/20 07:57 Pulse Ox 95 11/19/20 07:57 Intake & Output 11/18/20 11/19/20 11/19/20 18:59 06:59 18:59 Intake Total 91.809 Output Total 250 Balance -158.191 Intake: Intake, IV Titration 91.809 Amount Insulin Regular 100 unit 91.809 In Sodium Chloride 0.9% 100 ml @ Titrate IV .Q0M [facility] Rx#:[id number] Output: Urine 250 Other: Voiding Method Toilet Urinal # Voids 4 2 - Exam Gen. appearance, comfortable likely distress Head exam was generally normal. There was no scleral icterus or corneal arcus. Mucous membranes were moist. Neck was supple and without jugular venous distension, thyromegaly, or carotid bruits. Carotids were easily palpable bilaterally. There was no adenopathy. Lungs sounds are diminished and the patient is scattered expiratory wheezes throughout the lung joyce bilaterally Cardiac exam revealed the PMI to be normally situated and sized. The rhythm was regular and no extrasystoles were noted during several minutes of auscultation. The first and second heart sounds were normal and physiologic splitting of the second heart sound was noted. There were no murmurs, rubs, clicks, or gallops. Abdominal exam revealed normal bowel sounds. The abdomen was soft, non-tender, and without masses, organomegaly, or appreciable enlargement of the abdominal aorta. Examination of the extremities revealed easily palpable radial, femoral and pedal pulses. There was no cyanosis, clubbing or edema. Examination of the skin revealed no evidence of significant rashes, suspicious appearing nevi or other concerning lesions. Neurologically, the patient is awake and alert and the patient does not have any focal neurological deficit. Cranial nerves are essentially intact. - Labs CBC & Chem 7: 11/18/20 05:54 11/18/20 05:54 Labs: Abnormal Lab Results - Last 24 Hours (Table) 11/18/20 11/18/20 11/18/20 Range/Units 05:54 12:24 13:38 POC Glucose (mg/dL) 260 H 342 H (75-99) mg/dL Procalcitonin 0.27 H (0.02-0.09) ng/mL 11/18/20 11/18/20 11/18/20 Range/Units 14:28 15:35 17:28 POC Glucose (mg/dL) 291 H 304 H 390 H (75-99) mg/dL Procalcitonin (0.02-0.09) ng/mL 11/18/20 11/18/20 11/18/20 Range/Units 20:42 21:46 23:20 POC Glucose (mg/dL) 450 H 442 H 380 H (75-99) mg/dL Procalcitonin (0.02-0.09) ng/mL 11/19/20 11/19/20 11/19/20 Range/Units 06:05 06:50 11:10 POC Glucose (mg/dL) 314 H 323 H 328 H (75-99) mg/dL Procalcitonin (0.02-0.09) ng/mL Microbiology - Last 24 Hours (Table) 11/16/20 11:51 Blood Culture - Preliminary Blood No Growth after 48 hours 11/16/20 11:51 Blood Culture - Preliminary Blood No Growth after 48 hours Assessment and Plan Plan: 1 acute lower lobe pneumonia, bilateral, with secondary fever, altered mentation and generalized weakness and other constitutional symptoms. Clinically improved. Mental status back to normal. No evidence of any focal neurological deficit. Cultures still pending for now. Lactic acid level elevated time of admission and subsequently normalized, and the patient is feeling better on today's evaluation. Legionella urine antigen is negative. Rest of the cultures still pending for now. He remains on a combination of Rocephin and Levaquin. 2 acute COPD exacerbation secondary to above, improving with a combination of carotids and IV Solu-Medrol. The patient developed a component of steroid- induced hyperglycemia. 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 6 history of right-sided spontaneous pneumothorax 7 history of hepatitis C treated with interferon for a total of 6 years 8 history of IV drug use 9 chronic back pain 10 leukocytosis secondary to above, improved Plan Clinically improving Altered mental status is improved and the patient has no focal neurological deficit Continue bronchodilators Continue Symbicort Stop the IV Solu-Medrol and start the patient prednisone burst taper Continue antibiotic coverage Legionella urine antigen was negative Lactic acid level is improved Pro-calcitonin level is mildly elevated Resume all medications We'll continue to follow, clinically improving. We'll continue to follow.
[2020-11-19] MEDS: IPRATROPIUM-ALBUTEROL 3 ML NEB INHALATION SCH ×3 (12:03→19:42)
--- NOTE | 2020-11-19 16:29 | CDI ---
Documentation Clarification Form Date: 11/19/2020 04:07:58 PM From: Katey Hopkins RN CCDS Admit Date: 11/16/2020 01:26:00 PM Patient Name: Juan Ralph Visit Number: [id number] Discharge Date: ATTENTION: The Clinical Documentation Specialists (CDI) and [facility] Coding Staff appreciate your assistance in clarifying documentation. Please respond to the clarification below the line at the bottom and electronically sign. The CDI & [facility] Coding staff will review the response and follow-up if needed. Please note: Queries are made part of the Legal Health Record. If you have any questions, please contact the author of this message via ITS. Dr. Mckay Washington Your patient has the documented symptom of Altered Mentation 11/18 Pulmonary consult and 11/19 Pulmonary progress note. Additional clarification regarding the etiology/cause of this symptom is requested. History/Risk Factors: 45-year-old male presents to the ED for generalized weakness and altered mentation with increased cough, increased dyspnea and sputum production. Medical History: Asthma, COPD, DM and Bronchitis. Pulmonary consult 11/18 Clinical Indicators: VSS: 11/16 B/P 133/67, HR 126, Temp 100.6 F Oral, RR 24, SpO2 90% room air. Labs: 11/16 Wbc 15.9, Neutrophils 13.4, Lactic acid 4.0; d-Dimer 0.78. CT Chest: 11/17 There are scattered right side lower lobe more than upper lobe peribranchial vascular nodularity. Groundglass opacity in the left upper lobe peripherally along the fissure. Classified nodule in the right upper lobe posterior. Calcified nodule in the right upper lobe inferiorly. Acute lower lobe pneumonia bilateral, with secondary fever, altered mentation and generalized weakness and other constitutional symptoms. Pulmonary consult 11/18 Treatment: 11/16 Vancomycin 1,750mg IVPB x1; 11/16 Vancomycin 1,750mg IVPB Q8HR d/c 11/17; 11/16 Zosyn 3.375gm IVPB X 1; 11/17 Zosyn 3.375gm IVPB Q8HR d/c 11/17: 11/18 Ceftriaxone 2gm IVPB Q24HR [facility] to current; 11/17 Levaquin 750mg PO Daily [facility] to current; Please clarify the etiology of the symptom of Altered Mentation: [ x ] Metabolic Encephalopathy due to Pneumonia [ ] Other condition (please specify) [ ] Unable to determine (Template Last Revised: May 2020) MTDD
--- NOTE | 2020-11-19 16:32 | P.PN ---
Subjective Progress Note Date: 11/19/20 Principal diagnosis: Pancreatic cyst This 45-year-old male who presented to the emergency department with shortness of breath, fever, and weakness. He was diagnosed with pneumonia. He had a CT of the abdomen and pelvis that showed a pancreatic cyst. Patient has a history of chronic pancreatitis with previous history of pancreatic cyst. He has asymptomatic. Denies any abdominal pain, nausea, or vomiting. Denies any recent weight loss or decreased appetite. Pancreatic enzymes are normal as well as liver enzymes. Objective - Vital Signs Vital signs: Vital Signs Temp 97.8 F 11/19/20 07:57 Pulse 60 11/19/20 07:57 Resp 18 11/19/20 07:57 BP 108/69 11/19/20 07:57 Pulse Ox 95 11/19/20 07:57 Intake & Output 11/18/20 11/19/20 11/19/20 18:59 06:59 18:59 Intake Total 91.809 Output Total 250 Balance -158.191 Intake: Intake, IV Titration 91.809 Amount Insulin Regular 100 unit 91.809 In Sodium Chloride 0.9% 100 ml @ Titrate IV .Q0M [facility] Rx#:[id number] Output: Urine 250 Other: Voiding Method Toilet Urinal # Voids 4 2 - Exam General appearance: The patient is alert, oriented, appears in no acute distress. HET: Head is normocephalic and atraumatic. Conjunctiva pink. Sclera anicteric. Neck: Supple without lymphadenopathy. Abdomen: Soft, nontender, nondistended with bowel sounds. No guarding or rigidity. Extremities: Normal skin color and turgor. No pedal edema Skin: No rashes, no jaundice Neurological: No focal deficits. Alert and oriented 3. - Labs CBC & Chem 7: 11/18/20 05:54 11/18/20 05:54 Labs: Abnormal Lab Results - Last 24 Hours (Table) 11/18/20 11/18/20 11/18/20 Range/Units 05:54 12:24 13:38 POC Glucose (mg/dL) 260 H 342 H (75-99) mg/dL Procalcitonin 0.27 H (0.02-0.09) ng/mL 11/18/20 11/18/20 11/18/20 Range/Units 14:28 15:35 17:28 POC Glucose (mg/dL) 291 H 304 H 390 H (75-99) mg/dL Procalcitonin (0.02-0.09) ng/mL 11/18/20 11/18/20 11/18/20 Range/Units 20:42 21:46 23:20 POC Glucose (mg/dL) 450 H 442 H 380 H (75-99) mg/dL Procalcitonin (0.02-0.09) ng/mL 11/19/20 11/19/20 11/19/20 Range/Units 06:05 06:50 11:10 POC Glucose (mg/dL) 314 H 323 H 328 H (75-99) mg/dL Procalcitonin (0.02-0.09) ng/mL Microbiology - Last 24 Hours (Table) 11/16/20 11:51 Blood Culture - Preliminary Blood No Growth after 48 hours 11/16/20 11:51 Blood Culture - Preliminary Blood No Growth after 48 hours Assessment and Plan (1) Pancreatic cyst Narrative/Plan: 45-year-old male with a history of chronic pancreatitis which she states is related to gallstone pancreatitis and history of pancreatic cyst who underwent surgery. Patient denies any past history of alcohol abuse or current alcohol abuse he does have a history of IV drug use and hepatitis C for which he was treated with interferon. He resented to the emergency room with complaints of not feeling well with increased shortness of breath mental status changes and fever and was diagnosed with pneumonia and sepsis. He underwent an ultrasound of the liver which showed heterogeneous hyperechoic liver with enlarged right hepatic lobe findings suggesting hepatic steatosis or hepatocellular disease. Cystic lesion in the region of the pancreas measuring 5.1 cm could represent a pancreatic cystic lesion or pancreatic fluid collection. Patient had a previous CT of the abdomen and pelvis dated 01/27/2020 it did show a cystic lesion associated with the tail the pancreas but at that time it measured 2.3 cm. The patient is not having any abdominal pain. It is unclear exact etiology of chronic pancreatitis, we will order IgG4, triglycerides Current Visit: Yes Status: Acute Code(s): K86.2 - CYST OF PANCREAS SNOMED Code(s): 02416782 (2) Chronic pancreatitis Current Visit: Yes Status: Acute Code(s): K86.1 - OTHER CHRONIC PANCREATITIS SNOMED Code(s): 053149129 (3) History of hepatitis C Current Visit: No Status: Resolved Code(s): Z86.19 - PERSONAL HISTORY OF OTHER INFECTIOUS AND PARASITIC DISEASES SNOMED Code(s): 25216766383365 Plan: 1. IgG 4, MAYA, triglycerides ordered 2. Ultrasound of liver reviewed 3. Recommend patient to follow-up with gastroenterology to monitor pancreatic cyst outpatient. Patient currently without any abdominal pain. 4. Continue IV antibiotics as ordered, continue medical management. Thank you for this consultation, we will sign off at this time. Dr. Susan Quiroga I agree with the dictator's note, documented as a scribe by Darling Pinedo.
[2020-11-19 16:46] LABS: Glucose,Whole Blood 370 mg/dL (75-99)
--- NOTE | 2020-11-19 17:33 | P.PN ---
Subjective Progress Note Date: 11/19/20 Juan Ralph is a 45 year old male who presented to [facility] emergency room with a chief complaint of worsening shortness of breath He was evaluated in the emergency room vital examination on presentation revealed a temperature of 100.6 pulse 126 respiration 24 blood pressure 133/67 p ulse ox 90% on room air Laboratory data reveals a white blood count of 15.9 hemoglobin 13.9 platelet count 101 sodium 133 potassium 5.2 chloride 100 CO2 23 BUN 9 creatinine 0.59 glucose level 378 asthma lactic acid 4.0 AST 81 alkaline phosphatase 185 coronavirus PCR was negative. D-dimer was not done, urine toxicology screen was not done in the emergency room. Testing in the emergency room revealed chest x-ray done in the emergency room revealed linear atelectasis in both lung bases with possible infiltrates particularly at the right medial lung base Patient was admitted to medical floor for further evaluation and treatment, he was started on IV antibiotic Zosyn and vancomycin in the emergency room Past medical history is significant for insulin-dependent diabetes mellitus, depression with bipolar disorder, history of COPD, history of tobacco use, and previous history of drug abuse, patient also has a previous history of common bile duct obstruction due to biliary stone leading to infection and necrosis requiring partial pancreas resection. On review of systems Patient was seen and examined, he is alert and oriented x 3 in no distress, he is complaining of occasional cough and shortness of breath otherwise he denies any complaints there is no fever or chills no headache or dizziness no chest pain, no palpitation no nausea or vomiting no abdominal pain no diarrhea no blood in the stools no burning with urination no frequency or urgency and no hematuria, there is no weakness or numbness in any of the extremities no change in vision speech or gait. On 11/17/2020 patient alert and oriented 3. Patient still complaining of some mild shortness of breath. Lactic acid 1.9. Patient remains on Zosyn and vancomycin. Liver ultrasound results pending. Awaiting infectious disease input. At this time patient denies chest pain or shortness of breath. Patient denies nausea vomiting or diarrhea. Patient denies any urinary burning or frequency. White blood cell improving to 9.5 On 11/18/2020 Patient was seen and examined on the medical floor, he is alert and oriented x 3 in no distress, he denies any complaints there is no fever or chills no headache or dizziness no chest pain no shortness of breath no palpitation no cough no nausea or vomiting no abdominal pain no diarrhea no blood in the stools no burning with urination no frequency or urgency and no hematuria, there is no weakness or numbness in any of the extremities no change in vision speech or gait. Patient is feeling better antibiotics adjusted to Rocephin and Levaquin by infectious disease at this time glucose is better controlled we will discontinue insulin drip and start Lantus 60 units at bedtime and NovoLog 20 units before each meal and NovoLog sliding scale before meals On 11/19/2020 Patient was seen and examined on the medical floor, he is alert and oriented x 3 in no distress, he denies any complaints there is no fever or chills no headache or dizziness no chest pain no shortness of breath no palpitation no cough no nausea or vomiting no abdominal pain no diarrhea no blood in the stools no burning with urination no frequency or urgency and no hematuria, there is no weakness or numbness in any of the extremities no change in vision speech or gait. Will decrease IV steroids, and continue to monitor glucose level closely Objective - Vital Signs Vital signs: Vital Signs Temp 97.8 F 11/19/20 07:57 Pulse 60 11/19/20 07:57 Resp 18 11/19/20 07:57 BP 108/69 11/19/20 07:57 Pulse Ox 95 11/19/20 07:57 Intake & Output 11/18/20 11/19/20 11/19/20 18:59 06:59 18:59 Intake Total 91.809 Output Total 250 Balance -158.191 Intake: Intake, IV Titration 91.809 Amount Insulin Regular 100 unit 91.809 In Sodium Chloride 0.9% 100 ml @ Titrate IV .Q0M [facility] Rx#:[id number] Output: Urine 250 Other: Voiding Method Toilet Urinal # Voids 4 2 - Exam In general patient is alert and oriented x 3 in no distress HEENT head normocephalic and atraumatic Neck is supple no JVD no goiter no lymphadenopathy no carotid bruit Chest examination reveals a scattered crackles bilaterally no wheezing Cardiac exam reveals regular heart sounds S1 and S2 no gallops no murmurs Abdomen is soft nontender no organomegaly with normal bowel sounds Extremity exam reveals no edema no cyanosis or clubbing Neurological examination reveals no gross focal deficits - Labs CBC & Chem 7: 11/18/20 05:54 11/18/20 05:54 Labs: Abnormal Lab Results - Last 24 Hours (Table) 11/18/20 11/18/20 11/18/20 Range/Units 05:54 10:29 11:28 POC Glucose (mg/dL) 279 H 229 H (75-99) mg/dL Procalcitonin 0.27 H (0.02-0.09) ng/mL 11/18/20 11/18/20 11/18/20 Range/Units 12:24 13:38 14:28 POC Glucose (mg/dL) 260 H 342 H 291 H (75-99) mg/dL Procalcitonin (0.02-0.09) ng/mL 11/18/20 11/18/20 11/18/20 Range/Units 15:35 17:28 20:42 POC Glucose (mg/dL) 304 H 390 H 450 H (75-99) mg/dL Procalcitonin (0.02-0.09) ng/mL 11/18/20 11/18/20 11/19/20 Range/Units 21:46 23:20 06:05 POC Glucose (mg/dL) 442 H 380 H 314 H (75-99) mg/dL Procalcitonin (0.02-0.09) ng/mL 11/19/20 Range/Units 06:50 POC Glucose (mg/dL) 323 H (75-99) mg/dL Procalcitonin (0.02-0.09) ng/mL Microbiology - Last 24 Hours (Table) 11/16/20 11:51 Blood Culture - Preliminary Blood No Growth after 48 hours 11/16/20 11:51 Blood Culture - Preliminary Blood No Growth after 48 hours Assessment and Plan Plan: 1. Febrile illness with leukocytosis, possible pneumonia, patient was started on IV Zosyn and IV vancomycin in the emergency room 2. Sepsis as evidenced by fever, leukocytosis, and elevated lactic acid. Lactic acid and white blood cell improving 3. Elevated liver enzymes AST and alkaline phosphatase Will check liver ultrasound 4. Underlying history of insulin-dependent diabetes mellitus 5. Underlying history of COPD 6. Underlying history of tobacco abuse 7. Underlying history of depression with bipolar disorder 8. Underlying history of gastroesophageal reflux disease Maintained on IV Rocephin and Levaquin Abdomen ultrasound significant for pancreatic cyst gastroenterology consultation requested D-dimer slightly elevated, CT angiogram of the chest not diagnostic for pulmonary embolism Last night patient had significantly elevated glucose levels he was started on insulin drip At this time will discontinue insulin drip and resume Lantus 60 units at bedt marialuisa, NovoLog 20 units before each meal and NovoLog sliding scale Patient counseled regarding diet
[2020-11-19 20:25] LABS: Glucose,Whole Blood 337 mg/dL (75-99)
[2020-11-19] MEDS: MIRTAZAPINE 15 MG TAB PO SCH (20:52)
[2020-11-19] MEDS: INSULIN DETEMIR (LEVEMIR) 100 UNIT/ML SYR SQ SCH (20:52)
--- NOTE | 2020-11-20 05:05 | PN ---
PROGRESS NOTE DATE OF SERVICE: November 19, 2020. REASON FOR FOLLOWUP: Pneumonia. INTERVAL HISTORY: The patient is afebrile. The patient is breathing comfortably. The patient denies having any chest pain. He did have occasional cough, not bringing up any sputum. No vomiting. No abdominal pain or diarrhea. PHYSICAL EXAMINATION: Blood pressure 129/70 with a pulse of 74, temperature 97.8. He is 97% on room air. General description is a middle-aged male lying in bed in no distress. Respiratory system: Unlabored breathing. Coarse breath sounds bilaterally. No wheeze. Heart S1, S2. Regular rate and rhythm. Abdomen soft, no tenderness. LABS: No new labs have been obtained today. Blood culture negative. Sputum is pending. DIAGNOSTIC IMPRESSION AND PLAN: Patient admitted to the hospital with sepsis, source pneumonia, likely community- acquired. Overall improvement on Rocephin and Levaquin to continue. We will follow up on the sputum culture to determine discharge antibiotics. Continue supportive care. MMODL / IJN: [id number] / PINA
[2020-11-20 06:15] VITALS: RESP 16
[2020-11-20 06:51] LABS: Glucose,Whole Blood 174 mg/dL (75-99)
[2020-11-20] MEDS: INSULIN ASPART (NovoLOG) 100 UNIT/ML VIAL SQ SCH ×4 (07:39→11:33)
[2020-11-20] MEDS: [UNRECOGNIZED DRUG - OTHER] SUBLINGUAL SCH (08:31)
[2020-11-20] MEDS: BUPRENORPHINE HCL SUBLINGUAL SCH (08:31)
[2020-11-20] MEDS: NALOXONE HCL SUBLINGUAL SCH (08:31)
[2020-11-20] MEDS: ENOXAPARIN 40 MG/0.4 ML SYRINGE SQ SCH (08:46)
[2020-11-20] MEDS: BUMETANIDE 1 MG TAB PO SCH (08:47)
[2020-11-20] MEDS: LEVOFLOXACIN 750 MG TAB PO SCH ×2 (08:52→09:01)
[2020-11-20] MEDS: IPRATROPIUM-ALBUTEROL 3 ML NEB INHALATION SCH ×2 (08:53→12:04)
[2020-11-20] MEDS: SYMBICORT 160-4.5 MCG INHALER INHALATION SCH (08:53)
[2020-11-20] MEDS: PANTOPRAZOLE 40 MG TABLET PO SCH (08:58)
[2020-11-20] MEDS: lamoTRIgine 100 MG TAB PO SCH (08:58)
[2020-11-20] MEDS ORDERED: predniSONE 20 MG TAB PO SCH (09:00)
--- NOTE | 2020-11-20 09:12 | XR ---
EXAMINATION TYPE: XR chest 2V DATE OF EXAM: 11/20/2020 COMPARISON: 11/17/2020 TECHNIQUE: PA and lateral views submitted. HISTORY: Cough FINDINGS: Subsegmental changes are seen at the lung bases and are stable. Interstitium slightly prominent with no evidence of pneumothorax. Heart size stable. There are no sizable pleural effusions. IMPRESSION: 1. Stable basilar atelectasis versus infiltrate.
[2020-11-20 09:48] VITALS: BP 121/81; TEMP 98.6
[2020-11-20 11:22] LABS: Glucose,Whole Blood 98 mg/dL (75-99)
[2020-11-20 12:02] LABS: Anion Gap 7.7 mmol/L (4.00-12.00); BUN/Creat Ratio 22.5 Ratio (12.00-20.00); Calcium 8.8 mg/dL (8.7-10.3); Carbon Dioxide 27.3 mmol/L (21.6-31.8); Non-African American GFR(CKD) 107.9 (60.0-200.0); Potassium 3.7 mmol/L (3.5-5.5)
--- NOTE | 2020-11-20 12:04 | P.DS ---
Providers Date of admission: 11/16/20 13:26 Expected date of discharge: 11/20/20 Attending physician: Marialuisa Espinoza Consults: 11/16/20 13:26 Consult Physician Stat Consulting Provider: Rocio Escamilla Consult Reason/Comments: sepsis Do you want consulting provider notified?: Yes 11/17/20 10:08 Consult Physician Routine Consulting Provider: Rudy Guillermo Consult Reason/Comments: shortness of breath Do you want consulting provider notified?: Yes Primary care physician: Marialuisa Espinoza [facility] Course: Discharge diagnosis 1. Febrile illness with leukocytosis, possible pneumonia, patient was started on IV Zosyn and IV vancomycin in the emergency room 2. Sepsis as evidenced by fever, leukocytosis, and elevated lactic acid. Lactic acid and white blood cell improving 3. Elevated liver enzymes AST and alkaline phosphatase 4. Underlying history of insulin-dependent diabetes mellitus 5. Underlying history of COPD 6. Underlying history of tobacco abuse 7. Underlying history of depression with bipolar disorder 8. Underlying history of gastroesophageal reflux disease 9. Pancreatic cyst. Patient was evaluated by GI services. Patient to follow up with GI services outpatient for further management and monitoring of pancreatic cyst Hospital course Juan Ralph is a 45 year old male who presented to [facility] emergency room with a chief complaint of worsening shortness of breath He was evaluated in the emergency room vital examination on presentation revealed a temperature of 100.6 pulse 126 respiration 24 blood pressure 133/67 pulse ox 90% on room air Laboratory data reveals a white blood count of 15.9 hemoglobin 13.9 platelet count 101 sodium 133 potassium 5.2 chloride 100 CO2 23 BUN 9 creatinine 0.59 glucose level 378 asthma lactic acid 4.0 AST 81 alkaline phosphatase 185 coronavirus PCR was negative. D-dimer was not done, urine toxicology screen was not done in the emergency room. Testing in the emergency room revealed chest x-ray done in the emergency room revealed linear atelectasis in both lung bases with possible infiltrates particularly at the right medial lung base Patient was admitted to medical floor for further evaluation and treatment, he was started on IV antibiotic Zosyn and vancomycin in the emergency room Past medical history is significant for insulin-dependent diabetes mellitus, depression with bipolar disorder, history of COPD, history of tobacco use, and previous history of drug abuse, patient also has a previous history of common bile duct obstruction due to biliary stone leading to infection and necrosis requiring partial pancreas resection. On review of systems Patient was seen and examined, he is alert and oriented x 3 in no distress, he is complaining of occasional cough and shortness of breath otherwise he denies any complaints there is no fever or chills no headache or dizziness no chest pain, no palpitation no nausea or vomiting no abdominal pain no diarrhea no blood in the stools no burning with urination no frequency or urgency and no hematuria, there is no weakness or numbness in any of the extremities no change in vision speech or gait. On 11/17/2020 patient alert and oriented 3. Patient still complaining of some mild shortness of breath. Lactic acid 1.9. Patient remains on Zosyn and vancomycin. Liver ultrasound results pending. Awaiting infectious disease input. At this time patient denies chest pain or shortness of breath. Patient denies nausea vomiting or diarrhea. Patient denies any urinary burning or frequency. White blood cell improving to 9.5 On 11/18/2020 Patient was seen and examined on the medical floor, he is alert and oriented x 3 in no distress, he denies any complaints there is no fever or chills no headache or dizziness no chest pain no shortness of breath no palpitation no cough no nausea or vomiting no abdominal pain no diarrhea no blood in the stools no burning with urination no frequency or urgency and no hematuria, there is no weakness or numbness in any of the extremities no change in vision speech or gait. Patient is feeling better antibiotics adjusted to Rocephin and Levaquin by infectious disease at this time glucose is better controlled we will discontinue insulin drip and start Lantus 60 units at bedtime and NovoLog 20 units before each meal and NovoLog sliding scale before meals On 11/19/2020 Patient was seen and examined on the medical floor, he is alert and oriented x 3 in no distress, he denies any complaints there is no fever or chills no headache or dizziness no chest pain no shortness of breath no palpitation no cough no nausea or vomiting no abdominal pain no diarrhea no blood in the stools no burning with urination no frequency or urgency and no hematuria, there is no weakness or numbness in any of the extremities no change in vision speech or gait. Will decrease IV steroids, and continue to monitor glucose level closely On 11/20/2020 patient alert and oriented 3. Patient reports that his breathing has returned to baseline. Did discuss case with infectious disease services reckoning patient be discharged on Ceftin for 7 days. Patient to also follow-up a GI services outpatient for further management of pancreatic cyst. Patient stresses he is eager to go home. Patient denies chest pain or shortness of breath. Patient denies nausea vomiting or diarrhea. Patient denies any urinary burning or frequency Patient Condition at Discharge: Stable Plan - Discharge Summary Discharge Rx Participant: Yes New Discharge Prescriptions: New predniSONE [Deltasone] 40 mg PO DAILY #30 tab Cefuroxime Axetil [Ceftin] 500 mg PO BID 7 Days #14 tab Continue Mirtazapine [Remeron] 15 mg PO HS lamoTRIgine [LaMICtal] 100 mg PO BID OLANZapine [ZyPREXA] 10 mg PO HS Buprenorphine HCl/Naloxone HCl [Buprenorphine-Nalox 8-2 mg Tab] 1 tab SL BID Budesonide-Formot 160-4.5 Mcg [Symbicort 160-4.5 Mcg Inhaler] 2 puff INHALATION RT-BID Bumetanide [BUMEX] 1 mg PO DAILY Omeprazole 20 mg PO BID Insulin Glargine [Lantus] See Protocol SQ HS INSULIN ASPART (NovoLOG) [NovoLOG (formulary)] See Protocol SQ AC-TID Nystatin 100,000Unit/gm Cream [Mycostatin Cream] 1 applic TOPICAL DAILY PRN 7 Days #7 applic PRN Reason: Rash Potassium Chloride [Klor-Con 10] 10 meq PO DAILY Discharge Medication List Mirtazapine [Remeron] 15 mg PO HS 11/23/16 [History] lamoTRIgine [LaMICtal] 100 mg PO BID 03/13/17 [History] OLANZapine [ZyPREXA] 10 mg PO HS 03/28/18 [History] Buprenorphine HCl/Naloxone HCl [Buprenorphine-Nalox 8-2 mg Tab] 1 tab SL BID 01/27/20 [History] INSULIN ASPART (NovoLOG) [NovoLOG (formulary)] See Protocol SQ AC-TID 07/21/20 [History] Insulin Glargine [Lantus] See Protocol SQ HS 07/21/20 [History] Omeprazole 20 mg PO BID 07/21/20 [History] Budesonide-Formot 160-4.5 Mcg [Symbicort 160-4.5 Mcg Inhaler] 2 puff INHALATION RT-BID 07/27/20 [History] Nystatin 100,000Unit/gm Cream [Mycostatin Cream] 1 applic TOPICAL DAILY PRN 7 Days #7 applic 08/05/20 [Rx] Bumetanide [BUMEX] 1 mg PO DAILY 11/16/20 [History] Potassium Chloride [Klor-Con 10] 10 meq PO DAILY 11/16/20 [History] Cefuroxime Axetil [Ceftin] 500 mg PO BID 7 Days #14 tab 11/20/20 [Rx] predniSONE [Deltasone] 40 mg PO DAILY #30 tab 11/20/20 [Rx] Follow up Appointment(s)/Referral(s): Kianna Quiroga MD [STAFF PHYSICIAN] - 6 Weeks Marialuisa Espinoza MD [Primary Care Provider] - 1-2 days Activity/Diet/Wound Care/Special Instructions: Activity as tolerated Diet ADA and heart healthy Discharge Disposition: HOME SELF-CARE
[2020-11-20 12:16] VITALS: PULSE 76
[2020-11-20 14:03] LABS: Basophils # (A) 0.01 X 10*3/uL (0.00-0.10); Basophils % (A) 0.1 %; Eosinophils # (A) 0 X 10*3/uL (0.04-0.35); Eosinophils % (A) 0 %; HCT 37.5 % (39.6-50.0); HGB 11.8 g/dL (13.0-17.0); Lymphocytes # (A) 1.96 X 10*3/uL (0.90-5.00); Lymphocytes % (A) 25.3 %; MCH 27.4 pg (27.0-32.0); MCHC 31.5 g/dL (32.0-37.0); Mean Platelet Volume 13.2 fL (9.5-12.2); Monocytes # (A) 0.56 X 10*3/uL (0.20-1.00); Monocytes % (A) 7.2 %; Neutrophils # (A) 5.13 X 10*3/uL (1.80-7.70); Neutrophils % (A) 66.1 %; Platelet Count 99 X 10*3/uL (140-440); RBC 4.31 X 10*6/uL (4.40-5.60); RDW 15.4 % (11.5-14.5); WBC 7.76 X 10*3/uL (4.50-10.00)
[2020-11-20 14:28] LABS: IgG Subclass 3 16.8 mg/dL (11.0-85.0); IgG Subclass 4 16.7 mg/dL (3.0-175.0)
--- NOTE | 2020-11-20 17:48 | P.PN ---
Progress Note - Text Progress Note Date: 11/20/20 REASON FOR FOLLOWUP: Pneumonia. INTERVAL HISTORY: The patient remains to be afebrile. The patient is breathing comfortably. The patient denies having chest pain. The patient cough has decreased in intensity and is mostly dry in nature. No vomiting. No abdominal pain or diarrhea. PHYSICAL EXAMINATION: Blood pressure 120/70 with a pulse of 70, temperature 97.8. He is 97% on room air. General description is a middle-aged male lying in bed in no distress. Respiratory system: Unlabored breathing. Coarse breath sounds bilaterally. No wheeze. Heart S1, S2. Regular rate and rhythm. Abdomen soft, no tenderness. LABS: Blood culture negative. Sputum culture so far negative. DIAGNOSTIC IMPRESSION AND PLAN: Patient admitted to the hospital with sepsis, source pneumonia, likely community- acquired. Overall improvement on Rocephin and Levaquin, plan is to finish therapy with oral Ceftin 7 days discussed with the nurse practitioner for admitting team
== END 2020-11-20 12:53 | disposition home or self-care (01) | DRG 871 ==
LOC: EC 11:09 → 4SSUR 13:26
PROVIDERS: ADMIT Internal Medicine; ATTEND Internal Medicine
DX: A41.9 Sepsis, unspecified organism (principal); J18.9 Pneumonia, unspecified organism; G93.41 Metabolic encephalopathy; J98.11 Atelectasis; K86.1 Other chronic pancreatitis; K86.2 Cyst of pancreas; Z20.822 Contact with and (suspected) exposure to COVID-19; E11.9 Type 2 diabetes mellitus without complications; F17.200 Nicotine dependence, unspecified, uncomplicated; F41.9 Anxiety disorder, unspecified; G40.909 Epilepsy, unspecified, not intractable, without status epilepticus; K76.0 Fatty (change of) liver, not elsewhere classified; F19.10 Other psychoactive substance abuse, uncomplicated; J40 Bronchitis, not specified as acute or chronic; K21.9 Gastro-esophageal reflux disease without esophagitis; Z79.4 Long term (current) use of insulin; Z79.51 Long term (current) use of inhaled steroids; Z79.899 Other long term (current) drug therapy; Z81.8 Family history of other mental and behavioral disorders; Z82.49 Family history of ischemic heart disease and other diseases of the circulatory system; M54.5 Low back pain
CPT/HCPCS: 36415; 71046; 71275; 76705; 80048; 80053; 80306; 81003; 82787; 83036; 83605; 84145; 84478; 85025; 85379; 85610; 85730; 86038; 86140; 87040; 87070; 87205; 87449; 87635; 94640; 94760; 96361; 96365; 96366; 99291

== ENCOUNTER 2020-11-22 19:05 | Emergency (ER) | payer MEDICARE ==
[2020-11-22 19:10] VITALS: TEMP 98
[2020-11-22 19:13] LABS: Glucose,Whole Blood 170 mg/dL (75-99)
--- NOTE | 2020-11-22 19:29 | ED ---
General Adult HPI - General Chief complaint: Recheck/Abnormal Lab/Rx Stated complaint: High blood sugar Time Seen by Provider: 11/22/20 19:13 Source: patient, RN notes reviewed, old records reviewed Mode of arrival: ambulatory Limitations: no limitations - History of Present Illness Initial comments: 45-year-old male history of diabetes, COPD, recent hospital admission. Presents today for evaluation of elevated blood sugar. Patient states his blood sugar at home was 600. He's had some blurry vision over the past several days. He was recently discharged on oral steroids for COPD exacerbation. He states that just prior to arrival he took 100 units of NovoLog. He is currently on NovoLog and Lantus. He was admitted with a pneumonia states that his cough and fever symptoms have improved. No vomiting. - Related Data Home Medications Medication Instructions Recorded Confirmed Mirtazapine [Remeron] 15 mg PO HS 11/23/16 11/22/20 lamoTRIgine [LaMICtal] 100 mg PO BID 03/13/17 11/22/20 OLANZapine [ZyPREXA] 10 mg PO HS 03/28/18 11/22/20 Buprenorphine HCl/Naloxone HCl 1 tab SL BID 01/27/20 11/22/20 [Buprenorphine-Nalox 8-2 mg Tab] INSULIN ASPART (NovoLOG) [NovoLOG See Protocol SQ AC-TID 07/21/20 11/22/20 (formulary)] Insulin Glargine [Lantus] See Protocol SQ HS 07/21/20 11/22/20 Omeprazole 20 mg PO BID 07/21/20 11/22/20 Budesonide-Formot 160-4.5 Mcg 2 puff INHALATION RT-BID 07/27/20 11/22/20 [Symbicort 160-4.5 Mcg Inhaler] Bumetanide [BUMEX] 1 mg PO DAILY 11/16/20 11/22/20 Potassium Chloride [Klor-Con 10] 10 meq PO DAILY 11/16/20 11/22/20 predniSONE [Deltasone] See Taper PO DIRECTED 11/22/20 11/22/20 Previous Rx's Medication Instructions Recorded Nystatin 100,000Unit/gm Cream 1 applic TOPICAL DAILY PRN 7 Days 08/05/20 [Mycostatin Cream] #7 applic Cefuroxime Axetil [Ceftin] 500 mg PO BID 7 Days #14 tab 11/20/20 Allergies Allergy/AdvReac Type Severity Reaction Status Date / Time codeine Allergy Swelling Verified 11/22/20 19:42 furosemide [From Lasix] Allergy Rash/Hives Verified 11/22/20 19:42 haloperidol [From Haldol] Allergy Unknown Verified 11/22/20 19:42 prochlorperazine Allergy Swelling Verified 11/22/20 19:42 Review of Systems ROS Statement: Those systems with pertinent positive or pertinent negative responses have been documented in the HPI. ROS Other: All systems not noted in ROS Statement are negative. 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 with surgery/difficulty with incision healing/past cellulitis abdomin, IDDM type II, bronchitis, R lung spontaneous pneumo with surgery, last seizure 2011, hepatitis C with interferon over 6 yrs ago, past IV drug abuse-no drugs for over one year except for one slip/on suboxone, DDD, occasional low back pain, History of Any Multi-Drug Resistant Organisms: None Reported Past Surgical History: Appendectomy, Cholecystectomy Additional Past Surgical History / Comment(s): 2018 lap/laparotomy/partial omene ctomy/cystogastrectomy/lysis of adhesions, 2019 open incision hernia repair with mesh-difficulty with incision healing since, EGD, colonoscopy, R lung thorascopy/decortication, bilateral eye RK for vision correction. Past Anesthesia/Blood Transfusion Reactions: No Reported Reaction Past Psychological History: Anxiety, Bipolar, Depression Smoking Status: Current every day smoker Past Alcohol Use History: None Reported Past Drug Use History: None Reported - Past Family History Brother(s) Additional Family Medical History / Comment(s): Chronic alcoholism in 2 brothers Sister(s) Additional Family Medical History / Comment(s): Chronic alcoholism Daughter(s) Family Medical History: No Reported History Additional Family Medical History / Comment(s): One daughter healthy Son(s) Family Medical History: No Reported History Additional Family Medical History / Comment(s): One son healthy Father History Unknown: Yes Family Medical History: AICD/Pacemaker, Myocardial Infarction (MA), Renal Disease Additional Family Medical History / Comment(s): Schizophrenia. Per patient, his father at the age of 59 from renal failure. Mother History Unknown: Yes Family Medical History: Hypertension Additional Family Medical History / Comment(s): HPV General Exam Limitations: no limitations General appearance: alert, in no apparent distress Head exam: Present: atraumatic, normocephalic Eye exam: Present: normal appearance, PERRL ENT exam: Present: normal exam Neck exam: Present: normal inspection. Absent: tenderness, meningismus Respiratory exam: Present: normal lung sounds bilaterally. Absent: respiratory distress, wheezes Cardiovascular Exam: Present: regular rate, normal rhythm GI/Abdominal exam: Present: soft. Absent: distended, tenderness, guarding Extremities exam: Present: normal inspection, normal capillary refill. Absent: pedal edema Neurological exam: Present: alert, oriented X3, CN II-XII intact. Absent: motor sensory deficit Psychiatric exam: Present: normal affect, normal mood Skin exam: Present: warm, dry, intact. Absent: cyanosis, diaphoretic Course Vital Signs 11/22/20 11/22/20 19:08 20:20 Temperature 98.0 F Pulse Rate 93 78 Respiratory 20 18 Rate Blood Pressure 125/85 130/84 O2 Sat by Pulse 99 98 Oximetry Medical Decision Making - Medical Decision Making 5-year-old male known diabetic presenting for evaluation of elevated blood sugar at home, his blood sugar at home was around 600. He had taken insulin prior to arrival in the emergency department, repeat blood sugar testing is 172. He is not acidotic. He has a normal lactic acid, he is CO2 is within normal limits. Urinalysis negative for ketones. I did perform a chest x-ray secondary to his elevated white blood cell count at 23.5 suspect this is related to steroid administration rather than worsening pneumonia given his stable vitals fact that he is afebrile. I did discuss this laboratory findings with the patient and he is given strict return parameters. He will monitor his blood sugar at home. x-ray does show some mild basilar infiltrate however there is no large lobar pneumonia. - Lab Data Result diagrams: 11/22/20 19:34 11/22/20 19:34 Lab Results 11/22/20 11/22/20 11/22/20 Range/Units 19:11 19:34 19:34 WBC 23.4 H (3.8-10.6) k/uL RBC 5.78 (4.30-5.90) m/uL Hgb 16.5 D (13.0-17.5) gm/dL Hct 49.7 (39.0-53.0) % MCV 86.0 (80.0-100.0) fL MCH 28.5 (25.0-35.0) pg MCHC 33.1 (31.0-37.0) g/dL RDW 14.9 (11.5-15.5) % Plt Count 138 L D (150-450) k/uL MPV 11.0 Neutrophils % 84 % Lymphocytes % 11 % Monocytes % 4 % Eosinophils % 1 % Basophils % 0 % Neutrophils # 19.6 H (1.3-7.7) k/uL Lymphocytes # 2.5 (1.0-4.8) k/uL Monocytes # 0.9 (0-1.0) k/uL Eosinophils # 0.2 (0-0.7) k/uL Basophils # 0.1 (0-0.2) k/uL VBG pH (7.31-7.41) VBG pCO2 (37-51) mmHg VBG HCO3 (24-28) mmol/L Sodium (137-145) mmol/L Potassium (3.5-5.1) mmol/L Chloride (98-107) mmol/L Carbon Dioxide (22-30) mmol/L Anion Gap mmol/L BUN (9-20) mg/dL Creatinine (0.66-1.25) mg/dL Est GFR (CKD-EPI)AfAm (>60 ml/min/1.73 sqM) Est GFR (CKD-EPI)NonAf (>60 ml/min/1.73 sqM) Glucose (74-99) mg/dL POC Glucose (mg/dL) 170 H (75-99) mg/dL POC Glu [employer] ID Ritchie, Juani Plasma Lactic Acid Mynor (0.7-2.0) mmol/L Calcium (8.4-10.2) mg/dL Total Bilirubin (0.2-1.3) mg/dL AST (17-59) U/L ALT (4-49) U/L Alkaline Phosphatase (38-126) U/L Total Protein (6.3-8.2) g/dL Albumin (3.5-5.0) g/dL Urine Color Yellow Urine Appearance Clear (Clear) Urine pH 6.5 (5.0-8.0) Ur Specific Martin 1.021 (1.001-1.035) Urine Protein Trace H (Negative) Urine Glucose (UA) Negative (Negative) Urine Ketones Negative (Negative) Urine Blood Negative (Negative) Urine Nitrite Negative (Negative) Urine Bilirubin Negative (Negative) Urine Urobilinogen <2.0 (<2.0) mg/dL Ur Leukocyte Esterase Negative (Negative) 11/22/20 11/22/20 11/22/20 Range/Units 19:34 19:34 19:34 WBC (3.8-10.6) k/uL RBC (4.30-5.90) m/uL Hgb (13.0-17.5) gm/dL Hct (39.0-53.0) % MCV (80.0-100.0) fL MCH (25.0-35.0) pg MCHC (31.0-37.0) g/dL RDW (11.5-15.5) % Plt Count (150-450) k/uL MPV Neutrophils % % Lymphocytes % % Monocytes % % Eosinophils % % Basophils % % Neutrophils # (1.3-7.7) k/uL Lymphocytes # (1.0-4.8) k/uL Monocytes # (0-1.0) k/uL Eosinophils # (0-0.7) k/uL Basophils # (0-0.2) k/uL VBG pH 7.45 H (7.31-7.41) VBG pCO2 38 (37-51) mmHg VBG HCO3 26 (24-28) mmol/L Sodium 138 (137-145) mmol/L Potassium 4.1 (3.5-5.1) mmol/L Chloride 99 (98-107) mmol/L Carbon Dioxide 24 (22-30) mmol/L Anion Gap 15 mmol/L BUN 20 (9-20) mg/dL Creatinine 0.72 (0.66-1.25) mg/dL Est GFR (CKD-EPI)AfAm >90 (>60 ml/min/1.73 sqM) Est GFR (CKD-EPI)NonAf >90 (>60 ml/min/1.73 sqM) Glucose 172 H (74-99) mg/dL POC Glucose (mg/dL) (75-99) mg/dL POC Glu [employer] ID Plasma Lactic Acid Mynor 2.0 (0.7-2.0) mmol/L Calcium 9.6 (8.4-10.2) mg/dL Total Bilirubin 0.2 (0.2-1.3) mg/dL AST 84 H (17-59) U/L ALT 73 H (4-49) U/L Alkaline Phosphatase 160 H (38-126) U/L Total Protein 7.4 (6.3-8.2) g/dL Albumin 4.6 (3.5-5.0) g/dL Urine Color Urine Appearance (Clear) Urine pH (5.0-8.0) Ur Specific Martin (1.001-1.035) Urine Protein (Negative) Urine Glucose (UA) (Negative) Urine Ketones (Negative) Urine Blood (Negative) Urine Nitrite (Negative) Urine Bilirubin (Negative) Urine Urobilinogen (<2.0) mg/dL Ur Leukocyte Esterase (Negative) 11/22/20 Range/Units 20:39 WBC (3.8-10.6) k/uL RBC (4.30-5.90) m/uL Hgb (13.0-17.5) gm/dL Hct (39.0-53.0) % MCV (80.0-100.0) fL MCH (25.0-35.0) pg MCHC (31.0-37.0) g/dL RDW (11.5-15.5) % Plt Count (150-450) k/uL MPV Neutrophils % % Lymphocytes % % Monocytes % % Eosinophils % % Basophils % % Neutrophils # (1.3-7.7) k/uL Lymphocytes # (1.0-4.8) k/uL Monocytes # (0-1.0) k/uL Eosinophils # (0-0.7) k/uL Basophils # (0-0.2) k/uL VBG pH (7.31-7.41) VBG pCO2 (37-51) mmHg VBG HCO3 (24-28) mmol/L Sodium (137-145) mmol/L Potassium (3.5-5.1) mmol/L Chloride (98-107) mmol/L Carbon Dioxide (22-30) mmol/L Anion Gap mmol/L BUN (9-20) mg/dL Creatinine (0.66-1.25) mg/dL Est GFR (CKD-EPI)AfAm (>60 ml/min/1.73 sqM) Est GFR (CKD-EPI)NonAf (>60 ml/min/1.73 sqM) Glucose (74-99) mg/dL POC Glucose (mg/dL) 181 H (75-99) mg/dL POC Glu [employer] ID Candace Hernandez Plasma Lactic Acid Mynor (0.7-2.0) mmol/L Calcium (8.4-10.2) mg/dL Total Bilirubin (0.2-1.3) mg/dL AST (17-59) U/L ALT (4-49) U/L Alkaline Phosphatase (38-126) U/L Total Protein (6.3-8.2) g/dL Albumin (3.5-5.0) g/dL Urine Color Urine Appearance (Clear) Urine pH (5.0-8.0) Ur Specific Martin (1.001-1.035) Urine Protein (Negative) Urine Glucose (UA) (Negative) Urine Ketones (Negative) Urine Blood (Negative) Urine Nitrite (Negative) Urine Bilirubin (Negative) Urine Urobilinogen (<2.0) mg/dL Ur Leukocyte Esterase (Negative) Disposition Clinical Impression: Hyperglycemia Disposition: ADMITTED IP TO THIS HOSP Condition: Fair Instructions (If sedation given, give patient instructions): Diabetic Hyperglycemia (ED) Is patient prescribed a controlled substance at d/c from ED?: No Referrals: Marialuisa Espinoza MD [Primary Care Provider] - 1-2 days Time of Disposition: 20:46
[2020-11-22 19:54] LABS: Basophils # (A) 0.1 k/uL (0-0.2); Basophils % (A) 0 %; Eosinophils # (A) 0.2 k/uL (0-0.7); Eosinophils % (A) 1 %; HCT 49.7 % (39.0-53.0); Lymphocytes # (A) 2.5 k/uL (1.0-4.8); Lymphocytes % (A) 11 %; MCH 28.5 pg (25.0-35.0); MCHC 33.1 g/dL (31.0-37.0); Monocytes # (A) 0.9 k/uL (0-1.0); Monocytes % (A) 4 %; Neutrophils # (A) 19.6 k/uL (1.3-7.7); Neutrophils % (A) 84 %; Platelet Count 138 k/uL (150-450); RBC 5.78 m/uL (4.30-5.90); RDW 14.9 % (11.5-15.5); VBG PH 7.45 (7.31-7.41); WBC 23.4 k/uL (3.8-10.6)
[2020-11-22 20:06] LABS: ALT 73 U/L (4-49); AST 84 U/L (17-59); African American GFR (CKD) >90 (>60 ml/min/1.73 sqM); Albumin 4.6 g/dL (3.5-5.0); Alkaline Phosphatase 160 U/L (38-126); Anion Gap 15 mmol/L; Blood Urea Nitrogen 20 mg/dL (9-20); Calcium 9.6 mg/dL (8.4-10.2); Carbon Dioxide 24 mmol/L (22-30); Chloride 99 mmol/L (98-107); Glucose 172 mg/dL (74-99); Non-African American GFR(CKD) >90 (>60 ml/min/1.73 sqM); Potassium 4.1 mmol/L (3.5-5.1); Sodium 138 mmol/L (137-145); Total Bilirubin 0.2 mg/dL (0.2-1.3); Total Protein 7.4 g/dL (6.3-8.2)
[2020-11-22 20:07] LABS: Appearance,Urine Clear (Clear); Bilirubin,Urine Negative (Negative); Blood,Urine Negative (Negative); Color,Urine Yellow; Glucose,Urine (UA) Negative (Negative); Ketones,Urine Negative (Negative); Leukocyte Esterase,Urine Negative (Negative); Nitrite,Urine Negative (Negative); PH, Urine 6.5 (5.0-8.0); Protein,Urine Trace (Negative); Specific Gravity,Urine 1.021 (1.001-1.035); Urobilinogen,Urine <2.0 mg/dL (<2.0)
[2020-11-22 20:14] LABS: HGB 16.5 gm/dL (13.0-17.5)
[2020-11-22 20:21] VITALS: BP 130/84; PULSE 78; RESP 18
[2020-11-22 20:40] LABS: Glucose,Whole Blood 181 mg/dL (75-99)
--- NOTE | 2020-11-22 20:40 | XR ---
EXAMINATION TYPE: XR chest 2V DATE OF EXAM: 11/22/2020 COMPARISON: Radiographs 11/20/2020. CT 11/17/2020. HISTORY: Cough TECHNIQUE: Frontal and lateral views of the chest are obtained. FINDINGS: There is residual mild bibasilar hazy opacities. Stable 3 mm right upper long calcified gr anuloma. No pleural effusion, or pneumothorax seen. The cardiac silhouette size is within normal hawk its. The osseous structures are intact. IMPRESSION: Residual mild bibasilar opacities.
== END 2020-11-22 20:51 | disposition other institution (70) ==
LOC: EC 19:05
DX: E11.65 Type 2 diabetes mellitus with hyperglycemia (principal); J44.9 Chronic obstructive pulmonary disease, unspecified; F17.200 Nicotine dependence, unspecified, uncomplicated; G40.909 Epilepsy, unspecified, not intractable, without status epilepticus; K21.9 Gastro-esophageal reflux disease without esophagitis; Z79.4 Long term (current) use of insulin; Z79.51 Long term (current) use of inhaled steroids; Z88.8 Allergy status to other drugs, medicaments and biological substances; Z90.49 Acquired absence of other specified parts of digestive tract; Z88.5 Allergy status to narcotic agent; Z79.899 Other long term (current) drug therapy
CPT/HCPCS: 36415; 71046; 80053; 81003; 82009; 82803; 83605; 85025; 99284

== ENCOUNTER 2020-12-12 17:28 | Inpatient (IN) | payer MEDICARE ==
[2020-12-12] MEDS ORDERED: SODIUM CHLORIDE 0.9% 1,000 ML IV ONE ×2 (18:02→21:48)
[2020-12-12] MEDS ORDERED: NALOXONE 0.4 MG/ML 1 ML VIAL IM STA (18:02)
[2020-12-12] MEDS ORDERED: ONDANSETRON 4 MG/2 ML VIAL IVP STA (18:02)
[2020-12-12] MEDS ORDERED: NALOXONE 0.4 MG/ML 1 ML VIAL IVP STA (18:05)
[2020-12-12] MEDS ORDERED: IPRATROPIUM-ALBUTEROL 3 ML NEB INHALATION STA (18:12)
[2020-12-12] MEDS ORDERED: methylPREDNISolone SOD SUCCI 125 MG/2 ML VIAL IV STA (18:12)
[2020-12-12 18:20] LABS: Basophils # (A) 0.1 k/uL (0-0.2); Basophils % (A) 1 %; Eosinophils # (A) 0.4 k/uL (0-0.7); Eosinophils % (A) 4 %; HCT 43.7 % (39.0-53.0); HGB 13.8 gm/dL (13.0-17.5); Hypochromasia Slight; Lymphocytes # (A) 1.7 k/uL (1.0-4.8); Lymphocytes % (A) 20 %; MCH 28.4 pg (25.0-35.0); MCHC 31.5 g/dL (31.0-37.0); MCV 90.1 fL (80.0-100.0); Mean Platelet Volume 10.4; Monocytes # (A) 0.5 k/uL (0-1.0); Monocytes % (A) 6 %; Neutrophils # (A) 5.7 k/uL (1.3-7.7); Neutrophils % (A) 68 %; Platelet Count 134 k/uL (150-450); RBC 4.85 m/uL (4.30-5.90); WBC 8.4 k/uL (3.8-10.6)
[2020-12-12 18:29] LABS: INR 1.1 (<1.2); Prothrombin Time 11.3 sec (9.0-12.0)
[2020-12-12 18:32] LABS: ALT 43 U/L (4-49); AST 63 U/L (17-59); Acetaminophen <10.0 ug/mL; African American GFR (CKD) >90 (>60 ml/min/1.73 sqM); Albumin 3.9 g/dL (3.5-5.0); Alcohol <10 mg/dL; Alkaline Phosphatase 225 U/L (38-126); Anion Gap 10 mmol/L; Blood Urea Nitrogen 10 mg/dL (9-20); Calcium 9.5 mg/dL (8.4-10.2); Carbon Dioxide 25 mmol/L (22-30); Chloride 102 mmol/L (98-107); Glucose 488 mg/dL (74-99); Non-African American GFR(CKD) >90 (>60 ml/min/1.73 sqM); Potassium 4.2 mmol/L (3.5-5.1); Salicylate <1.0 mg/dL; Sodium 137 mmol/L (137-145); Total Bilirubin 0.4 mg/dL (0.2-1.3); Total Protein 6.5 g/dL (6.3-8.2)
--- NOTE | 2020-12-12 19:08 | CT ---
EXAMINATION: CT brain wo con DATE AND TIME: 12/12/2020 6:58 PM CLINICAL INDICATION: PHH; Altered mental status TECHNIQUE: Standard departmental protocol.; 4324.4; DLP: 1125.4 mGy-cm COMPARISON: 07/28/2020 FINDINGS: The calvarium is intact. There is no intracranial hemorrhage. There is no intracranial mass or mass effect. No definite new intra-axial or extra-axial attenuation defect. The paranasal sinuses, middle ear cavities, and mastoid sinus air cells are clear. The orbits are unremarkable. IMPRESSION: NO ACUTE PROCESS.
[2020-12-12 19:44] LABS: Appearance,Urine Clear (Clear); Bilirubin,Urine Negative (Negative); Blood,Urine Negative (Negative); Color,Urine Yellow; Glucose,Urine (UA) 4+ (Negative); Ketones,Urine Negative (Negative); Leukocyte Esterase,Urine Negative (Negative); Nitrite,Urine Negative (Negative); Protein,Urine Negative (Negative); Specific Gravity,Urine 1.034 (1.001-1.035); Urobilinogen,Urine <2.0 mg/dL (<2.0)
--- NOTE | 2020-12-12 19:53 | ED ---
General Adult HPI - General Chief complaint: Altered Mental Status Stated complaint: Overdose Time Seen by Provider: 12/12/20 17:36 Source: patient, family, RN notes reviewed, old records reviewed Mode of arrival: wheelchair Limitations: altered mental status - History of Present Illness Initial comments: Patient is a 45-year-old male with past medical history remarkable for opiate abuse on Suboxone 4 mg twice a day that is managed by his mother, asthma, COPD, diabetes, GERD, seizure disorder, chronic pancreatitis who presents emergency Department complaining of a suspected Suboxone overdose. Patient states that he believes he took 20 mg of his Suboxone at once or over the last 12 hours or so. It is not more than this, as the patient was only given a three-day supply from his mother who controls his medications. She gave him 6 total tablets of 4 mg twice a day yesterday. He took his normal dosages yesterday morning and yesterday evening, was acting normally per mother last night when she spoke with him over the phone. Today when she spoke with him over the phone, he seemed a little more confused as well as somewhat sleepy. She became concerned that he may have taken the remainder of his tablets. This would've been 4 or 5 tablets at most, in quitting to a maximum of 20 mg Suboxone. She brought him into the emergency department for evaluation over concern for possible overdose. He has no suicidal ideations, times complaints. Denies any homicidal ideations, attempts, plans. Denies any visual or auditory hallucinations. He is a recovering opiate addict, and patient's mother believes that is why he took the medications. He states he was in pain which is why took the medications. He denies any chest pain, shortness breath, abdominal pain, nausea, vomiting. Patient is recovering from a recent bout of pneumonia and has been having a reoccurrence of coughing. He is uncertain how long the coughing has been going on for. She denies any headaches. Denies any weakness or numbness. Has no acute complaint at this time. Patient is somewhat sleepy but easily arousable. He is not bradypneic. - Related Data Home Medications Medication Instructions Recorded Confirmed Mirtazapine [Remeron] 15 mg PO HS 11/23/16 12/12/20 lamoTRIgine [LaMICtal] 100 mg PO BID 03/13/17 12/12/20 OLANZapine [ZyPREXA] 10 mg PO HS 03/28/18 12/12/20 Buprenorphine HCl/Naloxone HCl 1 tab SL BID 01/27/20 12/12/20 [Buprenorphine-Nalox 8-2 mg Tab] INSULIN ASPART (NovoLOG) [NovoLOG 20 - 60 unit SQ AC-TID 07/21/20 12/12/20 (formulary)] Insulin Glargine [Lantus] 50 - 60 unit SQ HS 07/21/20 12/12/20 Omeprazole 20 mg PO BID 07/21/20 12/12/20 Budesonide-Formot 160-4.5 Mcg 2 puff INHALATION RT-BID 07/27/20 12/12/20 [Symbicort 160-4.5 Mcg Inhaler] Bumetanide [BUMEX] 1 mg PO DAILY 11/16/20 12/12/20 Potassium Chloride [Klor-Con 10] 10 meq PO DAILY 11/16/20 12/12/20 Allergies Allergy/AdvReac Type Severity Reaction Status Date / Time codeine Allergy Swelling Verified 12/12/20 17:33 furosemide [From Lasix] Allergy Rash/Hives Verified 12/12/20 17:33 haloperidol [From Haldol] Allergy Unknown Verified 12/12/20 17:33 prochlorperazine Allergy Swelling Verified 12/12/20 17:33 Review of Systems ROS Statement: Those systems with pertinent positive or pertinent negative responses have been documented in the HPI. Review of Systems: CONST: Denies fever EYES: Denies blurry vision ENT: Denies nasal congestion C/V: Denies Chest pain RESP: Endorses cough GI: Denies abdominal pain : Denies dysuria SKIN: Denies rash. MSK: Denies joint pain. NEURO: Denies headache PSYCH: Denies suicidal and homicidal ideations/plans/attempts. Denies visual or auditory hallucinations. ROS Other: All systems not noted in ROS Statement are negative. 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 with surgery/difficulty with incision healing/past cellulitis abdomin, IDDM type II, bronchitis, R lung spontaneous pneumo with surgery, last seizure 2011, hepatitis C with interferon over 6 yrs ago, past IV drug abuse-no drugs for over one year except for one slip/on suboxone, DDD, occasional low back pain, History of Any Multi-Drug Resistant Organisms: None Reported Past Surgical History: Appendectomy, Cholecystectomy Additional Past Surgical History / Comment(s): 2018 lap/laparotomy/partial omenectomy/cystogastrectomy/lysis of adhesions, 2019 open incision hernia repair with mesh-difficulty with incision healing since, EGD, colonoscopy, R lung thorascopy/decortication, bilateral eye RK for vision correction. Past Anesthesia/Blood Transfusion Reactions: No Reported Reaction Past Psychological History: Anxiety, Bipolar, Depression Smoking Status: Current every day smoker Past Alcohol Use History: None Reported Past Drug Use History: None Reported - Past Family History Brother(s) Additional Family Medical History / Comment(s): Chronic alcoholism in 2 brothers Sister(s) Additional Family Medical History / Comment(s): Chronic alcoholism Daughter(s) Family Medical History: No Reported History Additional Family Medical History / Comment(s): One daughter healthy Son(s) Family Medical History: No Reported History Additional Family Medical History / Comment(s): One son healthy Father History Unknown: Yes Family Medical History: AICD/Pacemaker, Myocardial Infarction ([place]), Renal Disease Additional Family Medical History / Comment(s): Schizophrenia. Per patient, his father at the age of 59 from renal failure. Mother History Unknown: Yes Family Medical History: Hypertension Additional Family Medical History / Comment(s): HPV General Exam - General Exam Comments Initial Comments: General: Appears in no acute distress. HEAD: Normal with no signs of head trauma. EYES: Pupils are pinpoint. EOMI conjunctiva normal. No discharge. ENT: Hearing grossly intact, normal oropharynx. RESPIRATORY: Patient is bilateral end expiratory wheezing. No rhonchi. No respiratory distress or depression. C/V: Patient's mildly tachycardic with a regular rhythm. S1 and S2 auscultated. No peripheral edema. Peripheral pulses are 2+ and intact throughout. ABD: Abd is soft, nontender, nondistended EXT: Normal range of motion, no obvious deformity SKIN: No rashes or lesions observed on exposed skin. NEURO: Alert and oriented 3. Cranial nerves II through XII are intact. No focal sensory strength deficits. NIH stroke scale is 0. GCS is 15. Patient is drowsy but easily arousable. He appropriately answers questions and follows commands. Limitations: altered mental status Course Vital Signs 12/12/20 12/12/20 12/12/20 17:31 18:00 18:17 Temperature 98.5 F Pulse Rate 118 H 112 H Respiratory 20 20 22 Rate Blood Pressure 121/78 144/94 O2 Sat by Pulse 95 96 Oximetry 12/12/20 12/12/20 12/12/20 18:59 19:12 19:25 Temperature Pulse Rate 106 H 109 H 112 H Respiratory 22 Rate Blood Pressure 137/76 O2 Sat by Pulse 95 Oximetry 12/12/20 21:00 Temperature 99.8 F H Pulse Rate 103 H Respiratory 22 Rate Blood Pressure 126/75 O2 Sat by Pulse 97 Oximetry Medical Decision Making - Medical Decision Making Based on the patient's presentation and physical exam, I'm concerned for possible Suboxone overdose. I cannot rule out other causes of altered mental status at this time. Therefore broad workup will be obtained including blood cu ltures, lactic acid, laboratory studies, toxicological workup, UDS, urinalysis, EKG, chest x-ray, head CT. Patient will be given be given a 1 L fluid bolus as well as 4 mg IV Zofran and 2 mg of IV Narcan to assess for improvement in symptoms. He'll be connected to continuous cardiac monitoring while is here in the department. Patient is mother when agreement with plan. He will likely require admission to the hospital for observation. Patient's EKG shows no acute skin changes. There are chronic T wave inversions in lead III. Patient's laboratory studies were relatively unremarkable. UDS is still pending at this time. Patient's alk phos is elevated to 225 and AST are elevated to 63. Ammonia is mildly elevated at 66. Troponin is negative. Remainder of the labs are unremarkable. Patient is a mild thrombocytopenia with a platelet count of 134. Patient's brain CT showed no acute intracranial process. Patient's chest x-ray is concerning for a possible left lower lobe pneumonia as read by myself, however it is a poor x-ray with poor inspiration. With this history of worsening cough, we will provide him with a one-time dose of Rocephin here in the department for possible pneumonia. We will obtain a COVID-19 swab. We will follow up with repeat x-ray in the morning. At this time, patient is more awake, however he still sleepy. Nursing staff contacted poison control, who recommended observation until he returns to his baseline mental status. He is still not his baseline per mother, and is still drowsy.. I do believe it is best for him to be admitted to the hospital to observation does he is back to his baseline mental status. Patient and his mother were in agreement this plan. I spoke with the admitting physician, Dr. Espinoza, who accepted the admission. Patient was therefore admitted to a telemetry bed in serious condition. - Lab Data Result diagrams: 12/12/20 18:09 12/12/20 18:09 Lab Results 12/12/20 12/12/20 12/12/20 Range/Units 18:09 18:09 18:09 WBC 8.4 (3.8-10.6) k/uL RBC 4.85 (4.30-5.90) m/uL Hgb 13.8 (13.0-17.5) gm/dL Hct 43.7 (39.0-53.0) % MCV 90.1 (80.0-100.0) fL MCH 28.4 (25.0-35.0) pg MCHC 31.5 (31.0-37.0) g/dL RDW 15.0 (11.5-15.5) % Plt Count 134 L (150-450) k/uL MPV 10.4 Neutrophils % 68 % Lymphocytes % 20 % Monocytes % 6 % Eosinophils % 4 % Basophils % 1 % Neutrophils # 5.7 (1.3-7.7) k/uL Lymphocytes # 1.7 (1.0-4.8) k/uL Monocytes # 0.5 (0-1.0) k/uL Eosinophils # 0.4 (0-0.7) k/uL Basophils # 0.1 (0-0.2) k/uL Hypochromasia Slight PT 11.3 (9.0-12.0) sec INR 1.1 (<1.2) APTT 23.0 (22.0-30.0) sec Sodium (137-145) mmol/L Potassium (3.5-5.1) mmol/L Chloride (98-107) mmol/L Carbon Dioxide (22-30) mmol/L Anion Gap mmol/L BUN (9-20) mg/dL Creatinine (0.66-1.25) mg/dL Est GFR (CKD-EPI)AfAm (>60 ml/min/1.73 sqM) Est GFR (CKD-EPI)NonAf (>60 ml/min/1.73 sqM) Glucose (74-99) mg/dL POC Glucose (mg/dL) (75-99) mg/dL POC Glu Film Printer ID Calcium (8.4-10.2) mg/dL Total Bilirubin (0.2-1.3) mg/dL AST (17-59) U/L ALT (4-49) U/L Alkaline Phosphatase (38-126) U/L Ammonia (<30) umol/L Troponin I (0.000-0.034) ng/mL Total Protein (6.3-8.2) g/dL Albumin (3.5-5.0) g/dL Urine Color Yellow Urine Appearance Clear (Clear) Urine pH 6.0 (5.0-8.0) Ur Specific [place] 1.034 (1.001-1.035) Urine Protein Negative (Negative) Urine Glucose (UA) 4+ H (Negative) Urine Ketones Negative (Negative) Urine Blood Negative (Negative) Urine Nitrite Negative (Negative) Urine Bilirubin Negative (Negative) Urine Urobilinogen <2.0 (<2.0) mg/dL Ur Leukocyte Esterase Negative (Negative) Salicylates mg/dL Acetaminophen ug/mL Serum Alcohol mg/dL Coronavirus (PCR) (Not Detectd) 12/12/20 12/12/20 12/12/20 Range/Units 18:09 18:09 18:09 WBC (3.8-10.6) k/uL RBC (4.30-5.90) m/uL Hgb (13.0-17.5) gm/dL Hct (39.0-53.0) % MCV (80.0-100.0) fL MCH (25.0-35.0) pg MCHC (31.0-37.0) g/dL RDW (11.5-15.5) % Plt Count (150-450) k/uL MPV Neutrophils % % Lymphocytes % % Monocytes % % Eosinophils % % Basophils % % Neutrophils # (1.3-7.7) k/uL Lymphocytes # (1.0-4.8) k/uL Monocytes # (0-1.0) k/uL Eosinophils # (0-0.7) k/uL Basophils # (0-0.2) k/uL Hypochromasia PT (9.0-12.0) sec INR (<1.2) APTT (22.0-30.0) sec Sodium 137 (137-145) mmol/L Potassium 4.2 (3.5-5.1) mmol/L Chloride 102 (98-107) mmol/L Carbon Dioxide 25 (22-30) mmol/L Anion Gap 10 mmol/L BUN 10 (9-20) mg/dL Creatinine 0.59 L (0.66-1.25) mg/dL Est GFR (CKD-EPI)AfAm >90 (>60 ml/min/1.73 sqM) Est GFR (CKD-EPI)NonAf >90 (>60 ml/min/1.73 sqM) Glucose 488 H (74-99) mg/dL POC Glucose (mg/dL) (75-99) mg/dL POC Glu Film Printer ID Calcium 9.5 (8.4-10.2) mg/dL Total Bilirubin 0.4 (0.2-1.3) mg/dL AST 63 H (17-59) U/L ALT 43 (4-49) U/L Alkaline Phosphatase 225 H (38-126) U/L Ammonia 66 H (<30) umol/L Troponin I <0.012 (0.000-0.034) ng/mL Total Protein 6.5 (6.3-8.2) g/dL Albumin 3.9 (3.5-5.0) g/dL Urine Color Urine Appearance (Clear) Urine pH (5.0-8.0) Ur Specific [place] (1.001-1.035) Urine Protein (Negative) Urine Glucose (UA) (Negative) Urine Ketones (Negative) Urine Blood (Negative) Urine Nitrite (Negative) Urine Bilirubin (Negative) Urine Urobilinogen (<2.0) mg/dL Ur Leukocyte Esterase (Negative) Salicylates <1.0 mg/dL Acetaminophen <10.0 ug/mL Serum Alcohol <10 mg/dL Coronavirus (PCR) (Not Detectd) 12/12/20 12/12/20 Range/Units 20:55 21:02 WBC (3.8-10.6) k/uL RBC (4.30-5.90) m/uL Hgb (13.0-17.5) gm/dL Hct (39.0-53.0) % MCV (80.0-100.0) fL MCH (25.0-35.0) pg MCHC (31.0-37.0) g/dL RDW (11.5-15.5) % Plt Count (150-450) k/uL MPV Neutrophils % % Lymphocytes % % Monocytes % % Eosinophils % % Basophils % % Neutrophils # (1.3-7.7) k/uL Lymphocytes # (1.0-4.8) k/uL Monocytes # (0-1.0) k/uL Eosinophils # (0-0.7) k/uL Basophils # (0-0.2) k/uL Hypochromasia PT (9.0-12.0) sec INR (<1.2) APTT (22.0-30.0) sec Sodium (137-145) mmol/L Potassium (3.5-5.1) mmol/L Chloride (98-107) mmol/L Carbon Dioxide (22-30) mmol/L Anion Gap mmol/L BUN (9-20) mg/dL Creatinine (0.66-1.25) mg/dL Est GFR (CKD-EPI)AfAm (>60 ml/min/1.73 sqM) Est GFR (CKD-EPI)NonAf (>60 ml/min/1.73 sqM) Glucose (74-99) mg/dL POC Glucose (mg/dL) 513 H (75-99) mg/dL POC Glu Film Printer ID Poli, Rodney Calcium (8.4-10.2) mg/dL Total Bilirubin (0.2-1.3) mg/dL AST (17-59) U/L ALT (4-49) U/L Alkaline Phosphatase (38-126) U/L Ammonia (<30) umol/L Troponin I (0.000-0.034) ng/mL Total Protein (6.3-8.2) g/dL Albumin (3.5-5.0) g/dL Urine Color Urine Appearance (Clear) Urine pH (5.0-8.0) Ur Specific [place] (1.001-1.035) Urine Protein (Negative) Urine Glucose (UA) (Negative) Urine Ketones (Negative) Urine Blood (Negative) Urine Nitrite (Negative) Urine Bilirubin (Negative) Urine Urobilinogen (<2.0) mg/dL Ur Leukocyte Esterase (Negative) Salicylates mg/dL Acetaminophen ug/mL Serum Alcohol mg/dL Coronavirus (PCR) Not Detected (Not Detectd) - EKG Data -: EKG Interpreted by Me EKG Comments: 12-lead Electrocardiogram Interpretation Note EKG was reviewed and interpreted by myself. 12-lead ECG performed at 1740 is interpreted by me as revealing sinus tachycardia at a rate of 110 beats per minute. [place] is normal. AR interval is 144 ms, QRS duration is 80 ms, QTc is 460 ms.. Patient is an isolated T-wave inversion in lead III which was seen on prior EKG's.. R wave progression across the precordium was satisfactory. By my interpretation this EKG is non-diagnostic for acute ischemia. It shows chronic t wave inversion in lead III. Disposition Clinical Impression: Opiate overdose, Altered mental status, Thrombocytopenia, Community acquired pneumonia, Asthma exacerbation, Hyperglycemia due to diabetes mellitus Disposition: ADMITTED IP TO THIS HOSP Condition: Serious Referrals: Marialuisa Espionza MD [Primary Care Provider] - 1-2 days
--- NOTE | 2020-12-12 20:06 | XR ---
EXAMINATION TYPE: XR chest 2V DATE OF EXAM: 12/12/2020 COMPARISON: Chest x-ray November 22, 2020 HISTORY: Altered mental status and weakness. Drug overdose. TECHNIQUE: Frontal and lateral views of the chest are obtained. FINDINGS: Diminished inspiration on background low lung volumes. Suboptimal due to large body habitus . There is no focal air space opacity, pleural effusion, or pneumothorax seen. The cardiac silhouett e size is stable and enlarged. The osseous structures are intact. IMPRESSION: Cardiomegaly without acute pulmonary process.
[2020-12-12] MEDS ORDERED: cefTRIAXone IN SWFI 1,000 MG/10 ML SYRINGE IVP STA (20:22)
[2020-12-12] MEDS ORDERED: INSULIN ASPART (NovoLOG) 100 UNIT/ML VIAL SQ ONE (20:22)
[2020-12-12] MEDS ORDERED: AZITHROMYCIN 500 MG in SODIUM CHLORIDE 0.9% 250 ML IVPB STA (20:22)
[2020-12-12] MEDS ORDERED: IBUPROFEN 400 MG TAB PO PRN (20:53)
[2020-12-12] MEDS ORDERED: NALOXONE 0.4 MG/ML 1 ML VIAL IV PRN (20:53)
[2020-12-12] MEDS ORDERED: IPRATROPIUM-ALBUTEROL 3 ML NEB INHALATION SCH (21:00)
[2020-12-12 21:05] LABS: Glucose,Whole Blood 513 mg/dL (75-99)
[2020-12-12] MEDS ORDERED: ACETAMINOPHEN TAB 325 MG TAB PO STA (21:08)
[2020-12-12] MEDS: SODIUM CHLORIDE 0.9% 1,000 ML IV SCH (21:13)
[2020-12-12] MEDS ORDERED: INSULIN DETEMIR (LEVEMIR) 100 UNIT/ML SYR SQ SCH (21:30)
[2020-12-12 21:37] LABS: Amphetamine Screen,Urine Not Detected (NotDetected); Barbiturate Screen,Urine Not Detected (NotDetected); Benzodiazepines Screen,Urine Detected (NotDetected); Cocaine Screen,Urine Not Detected (NotDetected); Methadone Screen, Urine Not Detected (NotDetected); Opiate Screen,Urine Not Detected (NotDetected); Oxycodone Screen, Urine Not Detected (NotDetected); Phencyclidine Screen,Urine Not Detected (NotDetected); Tricyclic Antidepressant,Urine Not Detected (NotDetected); Urn Cannabinoid Scrn Not Detected (NotDetected)
[2020-12-12] MEDS: INSULIN DETEMIR (LEVEMIR) 100 UNIT/ML SYR SQ SCH (22:18)
[2020-12-12] MEDS ORDERED: IPRATROPIUM-ALBUTEROL 3 ML NEB INHALATION PRN (22:27)
[2020-12-13 04:52] LABS: Glucose,Whole Blood 428 mg/dL (75-99)
[2020-12-13] MEDS ORDERED: INSULIN REGULAR BOLUS (FROM DRIP BAG) IV ONE (04:55)
[2020-12-13] MEDS: methylPREDNISolone SOD SUCCI 40 MG/ML 1 ML VIAL IV SCH ×3 (05:21→13:05)
[2020-12-13] MEDS: INSULIN REGULAR 100 UNIT in SODIUM CHLORIDE 0.9% 100 ML IV SCH ×3 (05:28→20:47)
[2020-12-13 06:21] LABS: Glucose,Whole Blood 352 mg/dL (75-99)
[2020-12-13] MEDS: SODIUM CHLORIDE 0.9% 1,000 ML IV SCH ×2 (06:25→18:30)
[2020-12-13 06:38] LABS: Glucose,Whole Blood 337 mg/dL (75-99)
[2020-12-13 07:06] LABS: Glucose,Whole Blood 328 mg/dL (75-99)
[2020-12-13 07:26] LABS: Glucose,Whole Blood 357 mg/dL (75-99)
[2020-12-13] MEDS: INSULIN ASPART (NovoLOG) 100 UNIT/ML VIAL SQ SCH ×3 (07:44→17:39)
[2020-12-13] MEDS: IPRATROPIUM-ALBUTEROL 3 ML NEB INHALATION SCH ×4 (07:54→19:34)
[2020-12-13 08:10] LABS: Glucose,Whole Blood 262 mg/dL (75-99)
[2020-12-13 08:36] LABS: Glucose,Whole Blood 250 mg/dL (75-99)
--- NOTE | 2020-12-13 08:43 | XR ---
EXAMINATION TYPE: XR chest 1V DATE OF EXAM: 12/13/2020 COMPARISON: 12/12/2020 HISTORY: Altered mental status TECHNIQUE: Single frontal view of the chest is obtained. FINDINGS: Coarsened interstitium with cardiomegaly and left lower lobe infiltrate. There is no pneum othorax. Heart is enlarged. Osseous structures are stable. IMPRESSION: Cardiomegaly and left lower lobe atelectasis or infiltrate.
[2020-12-13 09:13] LABS: Glucose,Whole Blood 265 mg/dL (75-99)
[2020-12-13 09:40] LABS: Basophils % (A) 0 %; Eosinophils % (A) 0 %; HCT 42.6 % (39.0-53.0); HGB 13.4 gm/dL (13.0-17.5); Hypochromasia Slight; Lymphocytes # (A) 1.3 k/uL (1.0-4.8); Lymphocytes % (A) 16 %; MCH 28.1 pg (25.0-35.0); MCHC 31.4 g/dL (31.0-37.0); MCV 89.5 fL (80.0-100.0); Mean Platelet Volume 10.2; Monocytes # (A) 0.3 k/uL (0-1.0); Monocytes % (A) 4 %; Neutrophils # (A) 6.8 k/uL (1.3-7.7); Neutrophils % (A) 80 %; Platelet Count 130 k/uL (150-450); RBC 4.76 m/uL (4.30-5.90); RDW 14.7 % (11.5-15.5); WBC 8.5 k/uL (3.8-10.6)
--- NOTE | 2020-12-13 09:45 | P.HPIM ---
History of Present Illness H&P Date: 12/13/20 Chief Complaint: Altered mental status This is a 45-year-old male patient who presented to the ER with concerns of altered mental status and concerns over overdose of Suboxone. Patient reports that he actually took 20 mg of Suboxone at once over the last 12 hours. Patient denies any suicidal ideation. Patient does have past medical history of IV drug abuse which he is on Suboxone, asthma, COPD, diabetes mellitus, GERD, seizure disorder and chronic pancreatitis. Head CT was performed showing no acute process. Chest x-ray completed showing cardiomegaly and left lower lobe atelectasis or infiltrate. Initial lactic acid 2.7. Initial ammonia 66. Patient also having elevated blood sugar 488. Patient has been started on IV antibiotics for possible pneumonia. IV steroids for COPD exacerbation. Pulmonary services have been consulted. Repeat labs ordered. Upon exam patient appears sleepy but does wake up and follow commands but quickly falls back to sleep. Patient denies chest pain. Patient denies nausea vomiting or diarrhea. Patient denies any urinary burning or frequency Review of Systems Please refer to HPI otherwise unremarkable 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 with surgery/difficulty with incision healing/past cellulitis abdomin, IDDM type II, bronchitis, R lung spontaneous pneumo with surgery, last seizure 2011, hepatitis C with interferon over 6 yrs ago, past IV drug abuse-no drugs for over one year except for one slip/on suboxone, DDD, occasional low back pain, History of Any Multi-Drug Resistant Organisms: None Reported Past Surgical History: Appendectomy, Cholecystectomy Additional Past Surgical History / Comment(s): 2018 lap/laparotomy/partial omenectomy/cystogastrectomy/lysis of adhesions, 2019 open incision hernia repair with mesh-difficulty with incision healing since, EGD, colonoscopy, R lung thorascopy/decortication, bilateral eye RK for vision correction. Past Anesthesia/Blood Transfusion Reactions: No Reported Reaction Past Psychological History: Anxiety, Bipolar, Depression Smoking Status: Current every day smoker Past Alcohol Use History: None Reported Past Drug Use History: None Reported - Past Family History Brother(s) Additional Family Medical History / Comment(s): Chronic alcoholism in 2 brothers Sister(s) Additional Family Medical History / Comment(s): Chronic alcoholism Daughter(s) Family Medical History: No Reported History Additional Family Medical History / Comment(s): One daughter healthy Son(s) Family Medical History: No Reported History Additional Family Medical History / Comment(s): One son healthy Father History Unknown: Yes Family Medical History: AICD/Pacemaker, Myocardial Infarction ([place]), Renal Disease Additional Family Medical History / Comment(s): Schizophrenia. Per patient, his father at the age of 59 from renal failure. Mother History Unknown: Yes Family Medical History: Hypertension Additional Family Medical History / Comment(s): HPV Medications and Allergies Home Medications Medication Instructions Recorded Confirmed Type RX: Mirtazapine [Remeron] 15 mg PO HS 11/23/16 12/12/20 History RX: lamoTRIgine [LaMICtal] 100 mg PO BID 03/13/17 12/12/20 History RX: OLANZapine [ZyPREXA] 10 mg PO HS 03/28/18 12/12/20 History RX: Buprenorphine HCl/Naloxone HCl 1 tab SL BID 01/27/20 12/12/20 History [Buprenorphine-Nalox 8-2 mg Tab] RX: INSULIN ASPART (NovoLOG) 20 - 60 unit SQ AC-TID 07/21/20 12/12/20 History [NovoLOG (formulary)] RX: Insulin Glargine [Lantus] 50 - 60 unit SQ HS 07/21/20 12/12/20 History RX: Omeprazole 20 mg PO BID 07/21/20 12/12/20 History RX: Budesonide-Formot 160-4.5 Mcg 2 puff INHALATION RT-BID 07/27/20 12/12/20 History [Symbicort 160-4.5 Mcg Inhaler] RX: Bumetanide [BUMEX] 1 mg PO DAILY 11/16/20 12/12/20 History RX: Potassium Chloride [Klor-Con 10 meq PO DAILY 11/16/20 12/12/20 History 10] Allergies Allergy/AdvReac Type Severity Reaction Status Date / Time codeine Allergy Swelling Verified 12/12/20 17:33 furosemide [From Lasix] Allergy Rash/Hives Verified 12/12/20 17:33 haloperidol [From Haldol] Allergy Unknown Verified 12/12/20 17:33 prochlorperazine Allergy Swelling Verified 12/12/20 17:33 Physical Exam Vitals: Vital Signs Temp Pulse Resp BP Pulse Ox 12/13/20 08:44 111/73 12/13/20 08:05 72 12/13/20 08:00 73 20 92 L 12/13/20 07:54 71 12/13/20 06:21 85 18 102/77 98 12/13/20 05:00 68 19 111/59 96 12/13/20 04:45 97.6 F 79 16 106/53 100 12/13/20 00:40 76 18 122/77 96 12/12/20 23:30 82 20 133/73 95 12/12/20 22:30 98.9 F 91 22 121/81 96 12/12/20 21:00 99.8 F H 103 H 22 126/75 97 12/12/20 19:25 112 H 22 137/76 95 12/12/20 19:12 109 H 12/12/20 18:59 106 H 12/12/20 18:17 22 12/12/20 18:00 112 H 20 144/94 96 12/12/20 17:31 98.5 F 118 H 20 121/78 95 Intake and Output 12/12/20 12/13/20 12/13/20 22:59 06:59 14:59 Intake Total 25.5 42.100 Balance 25.5 42.100 Intake: Intake, IV Titration 25.5 42.100 Amount Insulin Regular 100 unit 25.5 42.100 In Sodium Chloride 0.9% 100 ml @ Titrate IV .Q0M [facility] Rx#:[id number] Other: Weight 117.934 kg Head normocephalic Neck supple Lungs diminshed bilaterally Heart regular rate and rhythm S1-S2, no rub or gallop Abdomen is soft nontender nondistended positive bowel sounds no hepatosplenomegaly Extremities no edema Neuro alert and orientated to 3. Lethargic but does wake up and follow commands Results CBC & Chem 7: 12/12/20 18:09 12/12/20 18:09 Labs: Abnormal Lab Results - Last 24 Hours (Table) 12/12/20 12/12/20 12/12/20 Range/Units 18:09 18:09 18:09 Plt Count 134 L (150-450) k/uL Creatinine 0.59 L (0.66-1.25) mg/dL Glucose 488 H (74-99) mg/dL POC Glucose (mg/dL) (75-99) mg/dL Plasma Lactic Acid Mynor (0.7-2.0) mmol/L AST 63 H (17-59) U/L Alkaline Phosphatase 225 H (38-126) U/L Ammonia (<30) umol/L Urine Glucose (UA) 4+ H (Negative) U Benzodiazepines Scrn (NotDetected) 12/12/20 12/12/20 12/12/20 Range/Units 18:09 18:09 21:02 Plt Count (150-450) k/uL Creatinine (0.66-1.25) mg/dL Glucose (74-99) mg/dL POC Glucose (mg/dL) 513 H (75-99) mg/dL Plasma Lactic Acid Mynor 2.7 H* (0.7-2.0) mmol/L AST (17-59) U/L Alkaline Phosphatase (38-126) U/L Ammonia 66 H (<30) umol/L Urine Glucose (UA) (Negative) U Benzodiazepines Scrn (NotDetected) 12/12/20 12/13/20 12/13/20 Range/Units 21:10 04:49 06:17 Plt Count (150-450) k/uL Creatinine (0.66-1.25) mg/dL Glucose (74-99) mg/dL POC Glucose (mg/dL) 428 H 352 H (75-99) mg/dL Plasma Lactic Acid Mynor (0.7-2.0) mmol/L AST (17-59) U/L Alkaline Phosphatase (38-126) U/L Ammonia (<30) umol/L Urine Glucose (UA) (Negative) U Benzodiazepines Scrn Detected H (NotDetected) 12/13/20 12/13/20 12/13/20 Range/Units 06:37 07:04 07:25 Plt Count (150-450) k/uL Creatinine (0.66-1.25) mg/dL Glucose (74-99) mg/dL POC Glucose (mg/dL) 337 H 328 H 357 H (75-99) mg/dL Plasma Lactic Acid Mynor (0.7-2.0) mmol/L AST (17-59) U/L Alkaline Phosphatase (38-126) U/L Ammonia (<30) umol/L Urine Glucose (UA) (Negative) U Benzodiazepines Scrn (NotDetected) 12/13/20 12/13/20 12/13/20 Range/Units 08:07 08:34 09:11 Plt Count (150-450) k/uL Creatinine (0.66-1.25) mg/dL Glucose (74-99) mg/dL POC Glucose (mg/dL) 262 H 250 H 265 H (75-99) mg/dL Plasma Lactic Acid Mynor (0.7-2.0) mmol/L AST (17-59) U/L Alkaline Phosphatase (38-126) U/L Ammonia (<30) umol/L Urine Glucose (UA) (Negative) U Benzodiazepines Scrn (NotDetected) Assessment and Plan Assessment: 1. Altered mental status changes likely secondary to his Suboxone overdose 2. Possible pneumonia. Patient started on Zithromax and Rocephin 3. Acute COPD exacerbation. Patient started on IV steroids 4. Diabetes mellitus type 2 with hyperglycemia. Patient currently on insulin drip 5. History of bipolar depression 6. History of GERD 7. History of pancreatic cyst 8. Previous history of drug abuse DVT prophylaxis Lovenox. GI prophylaxis Protonix Pulmonary service is consulted Patient maintained on IV steroids Patient maintained on IV Lasix Rocephin and azithromycin Time with Patient: Greater than 30 (Greater than 60% of the total time spent in counseling and coordination of care)
[2020-12-13 09:51] LABS: ALT 41 U/L (4-49); AST 42 U/L (17-59); African American GFR (CKD) >90 (>60 ml/min/1.73 sqM); Albumin 3.8 g/dL (3.5-5.0); Albumin/Globulin Ratio 1.5; Alkaline Phosphatase 210 U/L (38-126); Anion Gap 6 mmol/L; Blood Urea Nitrogen 12 mg/dL (9-20); Calcium 9.6 mg/dL (8.4-10.2); Carbon Dioxide 28 mmol/L (22-30); Chloride 107 mmol/L (98-107); Globulin 2.6 g/dL; Glucose 262 mg/dL (74-99); Non-African American GFR(CKD) >90 (>60 ml/min/1.73 sqM); Potassium 4.4 mmol/L (3.5-5.1); Sodium 141 mmol/L (137-145); Total Bilirubin 0.4 mg/dL (0.2-1.3); Total Protein 6.4 g/dL (6.3-8.2)
[2020-12-13 10:02] LABS: Glucose,Whole Blood 241 mg/dL (75-99)
[2020-12-13 10:29] LABS: Glucose,Whole Blood 244 mg/dL (75-99)
[2020-12-13 12:09] LABS: Glucose,Whole Blood 289 mg/dL (75-99)
[2020-12-13] MEDS: lamoTRIgine 100 MG TAB PO SCH ×2 (13:05→21:13)
[2020-12-13] MEDS: ENOXAPARIN 40 MG/0.4 ML SYRINGE SQ SCH (13:05)
[2020-12-13] MEDS: PANTOPRAZOLE 40 MG TABLET PO SCH ×2 (13:05→21:13)
[2020-12-13] MEDS: BUMETANIDE 1 MG TAB PO SCH (13:07)
[2020-12-13 14:10] LABS: Glucose,Whole Blood 397 mg/dL (75-99)
--- NOTE | 2020-12-13 14:10 | P.CNPUL ---
History of Present Illness Consult date: 12/13/20 Chief complaint: altered mental status History of present illness: This is a 45-year-old male patient who presented to the ER with concerns of al tered mental status and concerns over overdose of Suboxone. Patient reports that he actually took 20 mg of Suboxone at once over the last 12 hours. Patient denies any suicidal ideation. Patient does have past medical history of IV drug abuse which he is on Suboxone. The patient is known to me. Of taking care of him recently during her most recent hospitalization when he came in for some altered mentation and increased respiratory difficulties and COPD exacerbation. At that time, CAT scan of the chest was done and showed no evidence of pulmonary embolism and the patient has some limited infiltration of the lung bases and the patient was treated with a combination of bronchodilators and steroids. The patient was ultimately discharged. The drug intake during this current admission was not suicidal. The patient does not really know why this many medication tablets. Usually his mother is the one who counts and gives him the tablets. This time she gave him some weeks supply which ended up taking though. He thought this is better for him. His CAT scan of the brain is negative. Blood work is showing a white second of 8.4 with a hemoglobin of 13.4. Platelet count is at 1:30. Electrolytes are normal. Creatinine is at 0.5. His blood sugars were elevated. The patient has not taken his insulin. During the course of his emergency visit, his mental status improved and currently is awake and alert and following commands and answering questions appropriately. He is on room air oxygen. He was given IV Solu-Medrol. And this raised his blood sugar. His urine drug screen is positive for benzodiazepines. COVID-19 testing was repeated and came back negative. Review of Systems Constitutional: Reports fatigue, Reports fever, Reports lethargy, Reports weakness Eyes: denies as per HPI, denies blurred vision, denies bulging eye, denies decreased vision, denies diplopia, denies discharge, denies dry eye, denies irritation, denies itching, denies pain, denies photophobia, denies loss of peripheral vision, denies loss of vision, denies tunnel vision/blind spots Ears: deny: decreased hearing, ear discharge, earache, tinnitus Ears, nose, mouth and throat: Reports as per HPI Breasts: absent: as per HPI, gynecomastia Cardiovascular: Reports decreased exercise tolerance, Reports dyspnea on exertion, Reports shortness of breath Respiratory: Reports cough, Reports dyspnea, Reports wheezing Gastrointestinal: Reports as per HPI Genitourinary: Reports as per HPI Musculoskeletal: Reports as per HPI Musculoskeletal: absent: ankle pain, ankle stiffness, ankle swelling, as per HPI, elbow pain, elbow stiffness, elbow swelling, foot pain, foot stiffness, fo ot swelling, hand pain, hand stiffness, hand swelling, hip pain, hip stiffness, hip swelling, knee pain, knee stiffness, knee swelling, shoulder pain, shoulder stiffness, shoulder swelling, wrist pain, wrist stiffness, wrist swelling Integumentary: Reports as per HPI Neurological: Reports confusion Psychiatric: Reports as per HPI Endocrine: Reports fatigue Hematologic/Lymphatic: Reports as per HPI Allergic/Immunologic: Reports as per HPI 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 with surgery/difficulty with incision healing/past cellulitis abdomin, IDDM type II, bronchitis, R lung spontaneous pneumo with surgery, last seizure 2011, hepatitis C with interferon over 6 yrs ago, past IV drug abuse-no drugs for over one year except for one slip/on suboxone, DDD, occasional low back pain, History of Any Multi-Drug Resistant Organisms: None Reported Past Surgical History: Appendectomy, Cholecystectomy Additional Past Surgical History / Comment(s): 2018 lap/laparotomy/partial omenectomy/cystogastrectomy/lysis of adhesions, 2019 open incision hernia repair with mesh-difficulty with incision healing since, EGD, colonoscopy, R lung thorascopy/decortication, bilateral eye RK for vision correction. Past Anesthesia/Blood Transfusion Reactions: No Reported Reaction Past Psychological History: Anxiety, Bipolar, Depression Smoking Status: Current every day smoker Past Alcohol Use History: None Reported Past Drug Use History: None Reported - Past Family History Brother(s) Additional Family Medical History / Comment(s): Chronic alcoholism in 2 brothers Sister(s) Additional Family Medical History / Comment(s): Chronic alcoholism Daughter(s) Family Medical History: No Reported History Additional Family Medical History / Comment(s): One daughter healthy Son(s) Family Medical History: No Reported History Additional Family Medical History / Comment(s): One son healthy Father History Unknown: Yes Family Medical History: AICD/Pacemaker, Myocardial Infarction ([place]), Renal Disease Additional Family Medical History / Comment(s): Schizophrenia. Per patient, his father at the age of 59 from renal failure. Mother History Unknown: Yes Family Medical History: Hypertension Additional Family Medical History / Comment(s): HPV Medications and Allergies Home Medications Medication Instructions Recorded Confirmed Type Mirtazapine [Remeron] 15 mg PO HS 11/23/16 12/12/20 History lamoTRIgine [LaMICtal] 100 mg PO BID 03/13/17 12/12/20 History OLANZapine [ZyPREXA] 10 mg PO HS 03/28/18 12/12/20 History Buprenorphine HCl/Naloxone HCl 1 tab SL BID 01/27/20 12/12/20 History [Buprenorphine-Nalox 8-2 mg Tab] INSULIN ASPART (NovoLOG) [NovoLOG 20 - 60 unit SQ AC-TID 07/21/20 12/12/20 History (formulary)] Insulin Glargine [Lantus Vial] 50 - 60 unit SQ HS 07/21/20 12/12/20 History Omeprazole 20 mg PO BID 07/21/20 12/12/20 History Budesonide-Formot 160-4.5 Mcg 2 puff INHALATION RT-BID 07/27/20 12/12/20 History [Symbicort 160-4.5 Mcg Inhaler] Bumetanide [BUMEX] 1 mg PO DAILY 11/16/20 12/12/20 History Potassium Chloride [Klor-Con 10 ER] 10 meq PO DAILY 11/16/20 12/12/20 History Allergies Allergy/AdvReac Type Severity Reaction Status Date / Time codeine Allergy Swelling Verified 12/12/20 17:33 furosemide [From Lasix] Allergy Rash/Hives Verified 12/12/20 17:33 haloperidol [From Haldol] Allergy Unknown Verified 12/12/20 17:33 prochlorperazine Allergy Swelling Verified 12/12/20 17:33 Physical Exam Vitals: Vital Signs Temp Pulse Resp BP Pulse Ox 12/13/20 12:14 91 12/13/20 12:05 92 12/13/20 08:44 111/73 12/13/20 08:05 72 12/13/20 08:00 73 20 92 L 12/13/20 07:54 71 12/13/20 06:21 85 18 102/77 98 12/13/20 05:00 68 19 111/59 96 12/13/20 04:45 97.6 F 79 16 106/53 100 12/13/20 00:40 76 18 122/77 96 12/12/20 23:30 82 20 133/73 95 12/12/20 22:30 98.9 F 91 22 121/81 96 12/12/20 21:00 99.8 F H 103 H 22 126/75 97 12/12/20 19:25 112 H 22 137/76 95 12/12/20 19:12 109 H 12/12/20 18:59 106 H 12/12/20 18:17 22 12/12/20 18:00 112 H 20 144/94 96 12/12/20 17:31 98.5 F 118 H 20 121/78 95 Intake and Output 12/12/20 12/13/20 12/13/20 22:59 06:59 14:59 Intake Total 25.5 75.500 Balance 25.5 75.500 Intake: Intake, IV Titration 25.5 75.500 Amount Insulin Regular 100 unit 25.5 75.500 In Sodium Chloride 0.9% 100 ml @ Titrate IV .Q0M [facility] Rx#:[id number] Other: Weight 117.934 kg Gen. appearance, comfortable likely distress Head exam was generally normal. There was no scleral icterus or corneal arcus. Mucous membranes were moist. Neck was supple and without jugular venous distension, thyromegaly, or carotid bruits. Carotids were easily palpable bilaterally. There was no adenopathy. Lungs sounds are diminished and the patient is scattered expiratory wheezes throughout the lung joyce bilaterally Cardiac exam revealed the PMI to be normally situated and sized. The rhythm was regular and no extrasystoles were noted during several minutes of auscultation. The first and second heart sounds were normal and physiologic splitting of the second heart sound was noted. There were no murmurs, rubs, clicks, or gallops. Abdominal exam revealed normal bowel sounds. The abdomen was soft, non-tender, and without masses, organomegaly, or appreciable enlargement of the abdominal aorta. Examination of the extremities revealed easily palpable radial, femoral and pedal pulses. There was no cyanosis, clubbing or edema. Examination of the skin revealed no evidence of significant rashes, suspicious appearing nevi or other concerning lesions. Neurologically, the patient is awake and alert and the patient does not have any focal neurological deficit. Cranial nerves are essentially intact. Results - Laboratory Findings CBC and BMP: 12/13/20 09:12 12/13/20 09:12 PT/INR, D-dimer PT 11.3 sec (9.0-12.0) 12/12/20 18:09 INR 1.1 (<1.2) 12/12/20 18:09 Abnormal lab findings: Abnormal Labs 12/12/20 12/12/20 12/12/20 18:09 18:09 18:09 Plt Count 134 L Creatinine 0.59 L Glucose 488 H POC Glucose (mg/dL) Plasma Lactic Acid Mynor AST 63 H Alkaline Phosphatase 225 H Ammonia Urine Glucose (UA) 4+ H U Benzodiazepines Scrn 12/12/20 12/12/20 12/12/20 18:09 18:09 21:02 Plt Count Creatinine Glucose POC Glucose (mg/dL) 513 H Plasma Lactic Acid Mynor 2.7 H* AST Alkaline Phosphatase Ammonia 66 H Urine Glucose (UA) U Benzodiazepines Scrn 12/12/20 12/13/20 12/13/20 21:10 04:49 06:17 Plt Count Creatinine Glucose POC Glucose (mg/dL) 428 H 352 H Plasma Lactic Acid Mynor AST Alkaline Phosphatase Ammonia Urine Glucose (UA) U Benzodiazepines Scrn Detected H 12/13/20 12/13/20 12/13/20 06:37 07:04 07:25 Plt Count Creatinine Glucose POC Glucose (mg/dL) 337 H 328 H 357 H Plasma Lactic Acid Mynor AST Alkaline Phosphatase Ammonia Urine Glucose (UA) U Benzodiazepines Scrn 12/13/20 12/13/20 12/13/20 08:07 08:34 09:11 Plt Count Creatinine Glucose POC Glucose (mg/dL) 262 H 250 H 265 H Plasma Lactic Acid Mynor AST Alkaline Phosphatase Ammonia Urine Glucose (UA) U Benzodiazepines Scrn 12/13/20 12/13/20 12/13/20 09:12 09:12 10:00 Plt Count 130 L Creatinine 0.51 L Glucose 262 H POC Glucose (mg/dL) 241 H Plasma Lactic Acid Mynor AST Alkaline Phosphatase 210 H Ammonia Urine Glucose (UA) U Benzodiazepines Scrn 12/13/20 12/13/20 10:27 12:08 Plt Count Creatinine Glucose POC Glucose (mg/dL) 244 H 289 H Plasma Lactic Acid Mynor AST Alkaline Phosphatase Ammonia Urine Glucose (UA) U Benzodiazepines Scrn - Diagnostic Findings Chest x-ray: image reviewed Assessment and Plan Plan: 1 altered mental status secondary to drug overdose, subaxone 20 tablets, presented with altered mentation and he has recovered and he is back to baseline. Suicidal ideation this patient. CAT scan of the brain is negative. Metabolic profile is also adequate. 2 COPD , questionable infiltrate in lung bases. Treated recently for pneumonia. He has had previous ESBL producing E. coli in his sputum. 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
[2020-12-13 16:15] LABS: Glucose,Whole Blood 374 mg/dL (75-99)
[2020-12-13] MEDS: LACTULOSE 20 GM/30 ML CUP PO SCH ×2 (17:45→21:16)
[2020-12-13 18:08] LABS: Glucose,Whole Blood 369 mg/dL (75-99)
[2020-12-13] MEDS: SYMBICORT 160-4.5 MCG INHALER INHALATION SCH (19:36)
[2020-12-13 20:44] LABS: Glucose,Whole Blood 389 mg/dL (75-99)
[2020-12-13] MEDS: INSULIN DETEMIR (LEVEMIR) 100 UNIT/ML SYR SQ SCH (21:12)
[2020-12-13] MEDS: OLANZapine 10 MG TAB PO SCH (21:13)
[2020-12-13 23:53] LABS: Glucose,Whole Blood 327 mg/dL (75-99)
[2020-12-14] MEDS: SODIUM CHLORIDE 0.9% 1,000 ML IV SCH ×2 (02:09→08:15)
[2020-12-14] MEDS: AZITHROMYCIN 500 MG in SODIUM CHLORIDE 0.9% 250 ML IVPB SCH ×2 (02:11→21:49)
[2020-12-14 02:27] LABS: Glucose,Whole Blood 310 mg/dL (75-99)
[2020-12-14 05:06] LABS: Glucose,Whole Blood 294 mg/dL (75-99)
[2020-12-14 06:23] LABS: Glucose,Whole Blood 303 mg/dL (75-99)
[2020-12-14 08:05] LABS: Glucose,Whole Blood 114 mg/dL (75-99)
[2020-12-14] MEDS: INSULIN ASPART (NovoLOG) 100 UNIT/ML VIAL SQ SCH ×3 (08:08→16:49)
[2020-12-14] MEDS: INSULIN REGULAR 100 UNIT in SODIUM CHLORIDE 0.9% 100 ML IV SCH ×2 (08:09→21:28)
[2020-12-14] MEDS: BUMETANIDE 1 MG TAB PO SCH (08:13)
[2020-12-14] MEDS: LACTULOSE 20 GM/30 ML CUP PO SCH ×3 (08:13→21:52)
[2020-12-14] MEDS: PANTOPRAZOLE 40 MG TABLET PO SCH ×2 (08:13→20:35)
[2020-12-14] MEDS: lamoTRIgine 100 MG TAB PO SCH ×2 (08:13→20:35)
[2020-12-14] MEDS: ENOXAPARIN 40 MG/0.4 ML SYRINGE SQ SCH (08:13)
[2020-12-14 09:16] LABS: Glucose,Whole Blood 255 mg/dL (75-99)
[2020-12-14] MEDS: SYMBICORT 160-4.5 MCG INHALER INHALATION SCH ×2 (09:33→19:53)
[2020-12-14] MEDS: IPRATROPIUM-ALBUTEROL 3 ML NEB INHALATION SCH ×4 (09:34→19:52)
[2020-12-14] MEDS: ACETAMINOPHEN TAB 325 MG TAB PO PRN ×2 (10:20→20:35)
--- NOTE | 2020-12-14 11:14 | P.PN ---
Subjective Progress Note Date: 12/14/202020, clinically the patient is doing well. No respiratory issues other than his chronic COPD. He was taken off the IV Solu-Medrol. No chest pain. No altered mentation. He is on Levemir insulin. 18. No fever. No chills. No chest pain. No other significant events otherwise for now. Objective - Vital Signs Vital signs: Vital Signs Temp 97.5 F L 12/14/20 07:00 Pulse 96 12/14/20 09:43 Resp 20 12/14/20 07:00 BP 108/71 12/14/20 07:00 Pulse Ox 96 12/14/20 09:34 Intake & Output 12/13/20 12/14/20 12/14/20 18:59 06:59 18:59 Intake Total 176.500 101.0 0.9 Balance 176.500 101.0 0.9 Intake: Intake, IV Titration 176.500 101.0 0.9 Amount Insulin Regular 100 unit 176.500 101.0 0.9 In Sodium Chloride 0.9% 100 ml @ Titrate IV .Q0M [facility] Rx#:[id number] Other: Voiding Method Toilet Urinal # Voids 3 - Exam Gen. appearance, comfortable likely distress Head exam was generally normal. There was no scleral icterus or corneal arcus. Mucous membranes were moist. Neck was supple and without jugular venous distension, thyromegaly, or carotid bruits. Carotids were easily palpable bilaterally. There was no adenopathy. Lungs sounds are diminished and the patient is scattered expiratory wheezes throughout the lung joyce bilaterally Cardiac exam revealed the PMI to be normally situated and sized. The rhythm was regular and no extrasystoles were noted during several minutes of auscultation. The first and second heart sounds were normal and physiologic splitting of the second heart sound was noted. There were no murmurs, rubs, clicks, or gallops. Abdominal exam revealed normal bowel sounds. The abdomen was soft, non-tender, and without masses, organomegaly, or appreciable enlargement of the abdominal aorta. Examination of the extremities revealed easily palpable radial, femoral and pedal pulses. There was no cyanosis, clubbing or edema. Examination of the skin revealed no evidence of significant rashes, suspicious appearing nevi or other concerning lesions. Neurologically, the patient is awake and alert and the patient does not have any focal neurological deficit. Cranial nerves are essentially intact. - Labs CBC & Chem 7: 12/13/20 09:12 12/13/20 09:12 Labs: Abnormal Lab Results - Last 24 Hours (Table) 12/13/20 12/13/20 12/13/20 Range/Units 09:12 12:08 14:09 POC Glucose (mg/dL) 289 H 397 H (75-99) mg/dL Procalcitonin 0.18 H (0.02-0.09) ng/mL 12/13/20 12/13/20 12/13/20 Range/Units 16:06 18:07 20:42 POC Glucose (mg/dL) 374 H 369 H 389 H (75-99) mg/dL Procalcitonin (0.02-0.09) ng/mL 12/13/20 12/14/20 12/14/20 Range/Units 23:51 02:19 05:01 POC Glucose (mg/dL) 327 H 310 H 294 H (75-99) mg/dL Procalcitonin (0.02-0.09) ng/mL 12/14/20 12/14/20 12/14/20 Range/Units 06:22 08:04 09:12 POC Glucose (mg/dL) 303 H 114 H 255 H (75-99) mg/dL Procalcitonin (0.02-0.09) ng/mL Microbiology - Last 24 Hours (Table) 12/12/20 18:09 Blood Culture - Preliminary Blood No Growth after 24 hours 12/12/20 18:09 Blood Culture - Preliminary Blood No Growth after 24 hours Assessment and Plan Plan: 1 altered mental status secondary to drug overdose, subaxone 20 tablets, presented with altered mentation and he has recovered and he is back to baseline. Suicidal ideation this patient. CAT scan of the brain is negative. Metabolic profile is also adequate. 2 COPD , questionable infiltrate in lung bases. Treated recently for pneumonia. He has had previous ESBL producing E. coli in his sputum. 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 6 history of right-sided spontaneous pneumothorax 7 history of hepatitis C treated with interferon for a total of 6 years 8 history of IV drug use 9 chronic back pain 10 leukocytosis secondary to above, improved Plan Clinically improving Altered mental status is improved and the patient has no focal neurological deficit Continue bronchodilators Continue Symbicort no need for steroids and this will be stopped Daily and continuing services we'll sign off for now. His condition is stable. Smoking cessation counseling was done. Follow up on outpatient basis.
[2020-12-14 11:22] LABS: Glucose,Whole Blood 135 mg/dL (75-99)
--- NOTE | 2020-12-14 11:48 | P.PN ---
Subjective Progress Note Date: 12/14/20 This is a 45-year-old male patient who presented to the ER with concerns of altered mental status and concerns over overdose of Suboxone. Patient reports that he actually took 20 mg of Suboxone at once over the last 12 hours. Patient denies any suicidal ideation. Patient does have past medical history of IV drug abuse which he is on Suboxone, asthma, COPD, diabetes mellitus, GERD, seizure disorder and chronic pancreatitis. Head CT was performed showing no acute process. Chest x-ray completed showing cardiomegaly and left lower lobe atelectasis or infiltrate. Initial lactic acid 2.7. Initial ammonia 66. Patient also having elevated blood sugar 488. Patient has been started on IV antibiotics for possible pneumonia. IV steroids for COPD exacerbation. Pulmonary services have been consulted. Repeat labs ordered. Upon exam patient appears sleepy but does wake up and follow commands but quickly falls back to sleep. Patient denies chest pain. Patient denies nausea vomiting or diarrhea. Patient denies any urinary burning or frequency. On 12/14/2020 Patient was seen and examined on the medical floor, he is alert and oriented x 3 in no distress, he is complaining of cough and shortness of breath with activity he is complaining of abdominal pain which is chronic for him due to chronic pancreatitis otherwise he denies any complaints there is no fever or chills no headache or dizziness no chest pain no palpitation no nausea or vomiting no diarrhea no blood in the stools no burning with urination no frequency or urgency and no hematuria, there is no weakness or numbness in any of the extremities no change in vision speech or gait. Objective - Vital Signs Vital signs: Vital Signs Temp 97.5 F L 12/14/20 07:00 Pulse 96 12/14/20 09:43 Resp 20 12/14/20 07:00 BP 108/71 12/14/20 07:00 Pulse Ox 96 12/14/20 09:34 Intake & Output 12/13/20 12/14/20 12/14/20 18:59 06:59 18:59 Intake Total 176.500 101.0 0.9 Balance 176.500 101.0 0.9 Intake: Intake, IV Titration 176.500 101.0 0.9 Amount Insulin Regular 100 unit 176.500 101.0 0.9 In Sodium Chloride 0.9% 100 ml @ Titrate IV .Q0M [facility] Rx#:[id number] Other: Voiding Method Toilet Urinal # Voids 3 - Exam In general patient is alert and oriented x 3 in no distress HEENT head normocephalic and atraumatic Neck is supple no JVD no goiter no lymphadenopathy no carotid bruit Chest examination reveals a scattered crackles bilaterally no wheezing Cardiac exam reveals regular heart sounds S1 and S2 no gallops no murmurs Abdomen is soft with mild diffuse tenderness no organomegaly with normal bowel sounds Extremity exam reveals no edema no cyanosis or clubbing Neurological examination reveals no gross focal deficits - Labs CBC & Chem 7: 12/13/20 09:12 12/13/20 09:12 Labs: Abnormal Lab Results - Last 24 Hours (Table) 12/13/20 12/13/20 12/13/20 Range/Units 09:12 12:08 14:09 POC Glucose (mg/dL) 289 H 397 H (75-99) mg/dL Procalcitonin 0.18 H (0.02-0.09) ng/mL 12/13/20 12/13/20 12/13/20 Range/Units 16:06 18:07 20:42 POC Glucose (mg/dL) 374 H 369 H 389 H (75-99) mg/dL Procalcitonin (0.02-0.09) ng/mL 12/13/20 12/14/20 12/14/20 Range/Units 23:51 02:19 05:01 POC Glucose (mg/dL) 327 H 310 H 294 H (75-99) mg/dL Procalcitonin (0.02-0.09) ng/mL 12/14/20 12/14/20 12/14/20 Range/Units 06:22 08:04 09:12 POC Glucose (mg/dL) 303 H 114 H 255 H (75-99) mg/dL Procalcitonin (0.02-0.09) ng/mL Microbiology - Last 24 Hours (Table) 12/12/20 18:09 Blood Culture - Preliminary Blood No Growth after 24 hours 12/12/20 18:09 Blood Culture - Preliminary Blood No Growth after 24 hours Assessment and Plan Assessment: 1. Altered mental status changes likely secondary to his Suboxone overdose 2. pneumonia. Patient started on Zithromax and Rocephin 3. Acute COPD exacerbation. IV steroids discontinued her pulmonary recommendations 4. Diabetes mellitus type 2 with hyperglycemia. Patient currently on insulin drip 5. History of bipolar depression 6. History of GERD 7. History of pancreatic cyst 8. Previous history of drug abuse 9. History of chronic pancreatitis with chronic abdominal pain maintained on Suboxone at home DVT prophylaxis Lovenox. GI prophylaxis Protonix Pulmonary service is consulted Patient maintained on IV steroids Patient maintained on IV Lasix Rocephin and azithromycin
[2020-12-14 12:16] LABS: Basophils # (A) 0.01 X 10*3/uL (0.00-0.10); Basophils % (A) 0.1 %; Eosinophils # (A) 0.02 X 10*3/uL (0.04-0.35); Eosinophils % (A) 0.2 %; HCT 39.7 % (39.6-50.0); HGB 12.2 g/dL (13.0-17.0); Lymphocytes % (A) 20.2 %; MCH 27.1 pg (27.0-32.0); MCHC 30.7 g/dL (32.0-37.0); Mean Platelet Volume 12.9 fL (9.5-12.2); Monocytes # (A) 0.62 X 10*3/uL (0.20-1.00); Monocytes % (A) 6.6 %; Neutrophils # (A) 6.77 X 10*3/uL (1.80-7.70); Platelet Count 132 X 10*3/uL (140-440); RBC 4.51 X 10*6/uL (4.40-5.60); RDW 15.3 % (11.5-14.5)
[2020-12-14 12:59] LABS: Glucose,Whole Blood 152 mg/dL (75-99)
[2020-12-14 15:18] LABS: Glucose,Whole Blood 200 mg/dL (75-99)
[2020-12-14 16:59] LABS: Glucose,Whole Blood 209 mg/dL (75-99)
[2020-12-14 19:24] LABS: Glucose,Whole Blood 232 mg/dL (75-99)
[2020-12-14] MEDS: OLANZapine 10 MG TAB PO SCH (20:35)
[2020-12-14 21:24] LABS: Glucose,Whole Blood 200 mg/dL (75-99)
[2020-12-14] MEDS: INSULIN DETEMIR (LEVEMIR) 100 UNIT/ML SYR SQ SCH (21:48)
[2020-12-14 22:45] LABS: African American GFR (CKD) 132.1 (60.0-200.0); Albumin 3.9 g/dL (3.80-4.90); Albumin/Globulin Ratio 1.77 (1.60-3.17); Anion Gap 12.5 mmol/L (4.00-12.00); BUN/Creat Ratio 22.86 Ratio (12.00-20.00); Calcium 9.2 mg/dL (8.7-10.3); Carbon Dioxide 22.5 mmol/L (21.6-31.8); Globulin 2.2 g/dL (1.6-3.3); Potassium 3.8 mmol/L (3.5-5.5); Total Bilirubin 0.2 mg/dL (0.3-1.2); Total Protein 6.1 g/dL (6.2-8.2)
[2020-12-14 23:16] LABS: Glucose,Whole Blood 152 mg/dL (75-99)
[2020-12-15 01:08] LABS: Glucose,Whole Blood 147 mg/dL (75-99)
[2020-12-15] MEDS: SODIUM CHLORIDE 0.9% 1,000 ML IV SCH ×3 (01:12→16:50)
[2020-12-15 02:54] LABS: Glucose,Whole Blood 154 mg/dL (75-99)
[2020-12-15 04:53] LABS: Glucose,Whole Blood 181 mg/dL (75-99)
[2020-12-15 06:55] LABS: Glucose,Whole Blood 92 mg/dL (75-99)
[2020-12-15] MEDS: PANTOPRAZOLE 40 MG TABLET PO SCH ×2 (07:08→21:11)
[2020-12-15] MEDS: lamoTRIgine 100 MG TAB PO SCH ×2 (07:08→21:11)
[2020-12-15] MEDS: ENOXAPARIN 40 MG/0.4 ML SYRINGE SQ SCH (07:08)
[2020-12-15] MEDS: LACTULOSE 20 GM/30 ML CUP PO SCH (07:08)
[2020-12-15] MEDS: BUMETANIDE 1 MG TAB PO SCH (07:08)
[2020-12-15] MEDS: SYMBICORT 160-4.5 MCG INHALER INHALATION SCH ×2 (07:26→19:54)
[2020-12-15] MEDS: IPRATROPIUM-ALBUTEROL 3 ML NEB INHALATION SCH ×4 (07:26→19:54)
[2020-12-15 08:54] LABS: Glucose,Whole Blood 213 mg/dL (75-99)
[2020-12-15 10:36] LABS: Basophils # (A) 0.02 X 10*3/uL (0.00-0.10); Basophils % (A) 0.4 %; Eosinophils # (A) 0.08 X 10*3/uL (0.04-0.35); Eosinophils % (A) 1.4 %; HCT 37.7 % (39.6-50.0); HGB 11.6 g/dL (13.0-17.0); Lymphocytes # (A) 1.63 X 10*3/uL (0.90-5.00); Lymphocytes % (A) 29.1 %; MCH 27.4 pg (27.0-32.0); MCHC 30.8 g/dL (32.0-37.0); MCV 88.9 fL (80.0-97.0); Mean Platelet Volume 12.7 fL (9.5-12.2); Monocytes # (A) 0.49 X 10*3/uL (0.20-1.00); Monocytes % (A) 8.7 %; Neutrophils % (A) 58.8 %; Platelet Count 121 X 10*3/uL (140-440); RBC 4.24 X 10*6/uL (4.40-5.60); RDW 15.9 % (11.5-14.5); WBC 5.61 X 10*3/uL (4.50-10.00)
--- NOTE | 2020-12-15 10:40 | P.PN ---
Subjective Progress Note Date: 12/15/20 This is a 45-year-old male patient who presented to the ER with concerns of altered mental status and concerns over overdose of Suboxone. Patient reports that he actually took 20 mg of Suboxone at once over the last 12 hours. Patient denies any suicidal ideation. Patient does have past medical history of IV drug abuse which he is on Suboxone, asthma, COPD, diabetes mellitus, GERD, seizure disorder and chronic pancreatitis. Head CT was performed showing no acute process. Chest x-ray completed showing cardiomegaly and left lower lobe atelectasis or infiltrate. Initial lactic acid 2.7. Initial ammonia 66. Patient also having elevated blood sugar 488. Patient has been started on IV antibiotics for possible pneumonia. IV steroids for COPD exacerbation. Pulmonary services have been consulted. Repeat labs ordered. Upon exam patient appears sleepy but does wake up and follow commands but quickly falls back to sleep. Patient denies chest pain. Patient denies nausea vomiting or diarrhea. Patient denies any urinary burning or frequency. On 12/14/2020 Patient was seen and examined on the medical floor, he is alert and oriented x 3 in no distress, he is complaining of cough and shortness of breath with activity he is complaining of abdominal pain which is chronic for him due to chronic pancreatitis otherwise he denies any complaints there is no fever or chills no headache or dizziness no chest pain no palpitation no nausea or vomiting no diarrhea no blood in the stools no burning with urination no frequency or urgency and no hematuria, there is no weakness or numbness in any of the extremities no change in vision speech or gait. On 06/25/2022 1 patient is alert and oriented 3. Patient today is complaining of chest pain reports that he cannot remember if he came in with bed but has been having it for the last day. Will order troponins EKG and cardiology consult. D-dimer also ordered. Patient denies any nausea vomiting or diarrhea. Patient denies any urinary burning or frequency Objective - Vital Signs Vital signs: Vital Signs Temp 97.7 F 12/15/20 08:00 Pulse 88 12/15/20 08:00 Resp 20 12/15/20 08:00 BP 117/81 12/15/20 08:00 Pulse Ox 95 12/15/20 08:00 Intake & Output 12/14/20 12/15/20 12/15/20 18:59 06:59 18:59 Intake Total 152.599 2164.966 860.05 Balance 632.810 3211.966 860.05 Intake: Intake, IV Titration 644.412 3991.966 860.05 Amount Azithromycin 500 mg In 250 Sodium Chloride 0.9% 250 ml @ 250 mls/hr IVPB HS [facility] Rx#:[id number] Insulin Regular 100 unit 35.099 42.966 10.05 In Sodium Chloride 0.9% 100 ml @ Titrate IV .Q0M [facility] Rx#:[id number] Sodium Chloride 0.9% 1, 1200 800 000 ml @ 100 mls/hr IV . Q10H [facility] Rx#:[id number] cefTRIAXone 1 gm In 100 50 50 Sodium Chloride 0.9% 50 ml @ 100 mls/hr IVPB Q12HR [facility] Rx#:[id number] Oral 400 Other: # Voids 2 # Bowel Movements 1 - Exam In general patient is alert and oriented x 3 in no distress HEENT head normocephalic and atraumatic Neck is supple no JVD no goiter no lymphadenopathy no carotid bruit Chest examination reveals a scattered crackles bilaterally no wheezing Cardiac exam reveals regular heart sounds S1 and S2 no gallops no murmurs Abdomen is soft with mild diffuse tenderness no organomegaly with normal bowel sounds Extremity exam reveals no edema no cyanosis or clubbing Neurological examination reveals no gross focal deficits - Labs CBC & Chem 7: 12/15/20 06:06 12/14/20 07:52 Labs: Abnormal Lab Results - Last 24 Hours (Table) 12/14/20 12/14/20 12/14/20 Range/Units 07:52 07:52 07:52 RBC (4.40-5.60) X 10*6/uL Hgb 12.2 L (13.0-17.0) g/dL Hct (39.6-50.0) % MCHC 30.7 L (32.0-37.0) g/dL RDW 15.3 H (11.5-14.5) % Plt Count 132 L (140-440) X 10*3/uL MPV 12.9 H (9.5-12.2) fL Immature Gran # 0.08 H (0.00-0.04) X 10*3/uL Eosinophils # 0.02 L (0.04-0.35) X 10*3/uL Sodium 146 H (135-145) mmol/L Chloride 111 H (96-109) mmol/L Anion Gap 12.50 H (4.00-12.00) mmol/L BUN/Creatinine Ratio 22.86 H (12.00-20.00) Ratio Glucose 154 H (70-110) mg/dL POC Glucose (mg/dL) (75-99) mg/dL Hemoglobin A1c 8.0 H (4.0-6.0) % Total Bilirubin 0.2 L (0.3-1.2) mg/dL Alkaline Phosphatase 179 H (41-126) U/L Total Protein 6.1 L (6.2-8.2) g/dL 12/14/20 12/14/20 12/14/20 Range/Units 11:20 12:57 15:17 RBC (4.40-5.60) X 10*6/uL Hgb (13.0-17.0) g/dL Hct (39.6-50.0) % MCHC (32.0-37.0) g/dL RDW (11.5-14.5) % Plt Count (140-440) X 10*3/uL MPV (9.5-12.2) fL Immature Gran # (0.00-0.04) X 10*3/uL Eosinophils # (0.04-0.35) X 10*3/uL Sodium (135-145) mmol/L Chloride (96-109) mmol/L Anion Gap (4.00-12.00) mmol/L BUN/Creatinine Ratio (12.00-20.00) Ratio Glucose (70-110) mg/dL POC Glucose (mg/dL) 135 H 152 H 200 H (75-99) mg/dL Hemoglobin A1c (4.0-6.0) % Total Bilirubin (0.3-1.2) mg/dL Alkaline Phosphatase (41-126) U/L Total Protein (6.2-8.2) g/dL 12/14/20 12/14/20 12/14/20 Range/Units 16:54 19:23 21:23 RBC (4.40-5.60) X 10*6/uL Hgb (13.0-17.0) g/dL Hct (39.6-50.0) % MCHC (32.0-37.0) g/dL RDW (11.5-14.5) % Plt Count (140-440) X 10*3/uL MPV (9.5-12.2) fL Immature Gran # (0.00-0.04) X 10*3/uL Eosinophils # (0.04-0.35) X 10*3/uL Sodium (135-145) mmol/L Chloride (96-109) mmol/L Anion Gap (4.00-12.00) mmol/L BUN/Creatinine Ratio (12.00-20.00) Ratio Glucose (70-110) mg/dL POC Glucose (mg/dL) 209 H 232 H 200 H (75-99) mg/dL Hemoglobin A1c (4.0-6.0) % Total Bilirubin (0.3-1.2) mg/dL Alkaline Phosphatase (41-126) U/L Total Protein (6.2-8.2) g/dL 12/14/20 12/15/20 12/15/20 Range/Units 23:14 01:06 02:52 RBC (4.40-5.60) X 10*6/uL Hgb (13.0-17.0) g/dL Hct (39.6-50.0) % MCHC (32.0-37.0) g/dL RDW (11.5-14.5) % Plt Count (140-440) X 10*3/uL MPV (9.5-12.2) fL Immature Gran # (0.00-0.04) X 10*3/uL Eosinophils # (0.04-0.35) X 10*3/uL Sodium (135-145) mmol/L Chloride (96-109) mmol/L Anion Gap (4.00-12.00) mmol/L BUN/Creatinine Ratio (12.00-20.00) Ratio Glucose (70-110) mg/dL POC Glucose (mg/dL) 152 H 147 H 154 H (75-99) mg/dL Hemoglobin A1c (4.0-6.0) % Total Bilirubin (0.3-1.2) mg/dL Alkaline Phosphatase (41-126) U/L Total Protein (6.2-8.2) g/dL 12/15/20 12/15/20 12/15/20 Range/Units 04:52 06:06 08:52 RBC 4.24 L (4.40-5.60) X 10*6/uL Hgb 11.6 L (13.0-17.0) g/dL Hct 37.7 L (39.6-50.0) % MCHC 30.8 L (32.0-37.0) g/dL RDW 15.9 H (11.5-14.5) % Plt Count 121 L (140-440) X 10*3/uL MPV 12.7 H (9.5-12.2) fL Immature Gran # 0.09 H (0.00-0.04) X 10*3/uL Eosinophils # (0.04-0.35) X 10*3/uL Sodium (135-145) mmol/L Chloride (96-109) mmol/L Anion Gap (4.00-12.00) mmol/L BUN/Creatinine Ratio (12.00-20.00) Ratio Glucose (70-110) mg/dL POC Glucose (mg/dL) 181 H 213 H (75-99) mg/dL Hemoglobin A1c (4.0-6.0) % Total Bilirubin (0.3-1.2) mg/dL Alkaline Phosphatase (41-126) U/L Total Protein (6.2-8.2) g/dL Microbiology - Last 24 Hours (Table) 12/12/20 18:09 Blood Culture - Preliminary Blood No Growth after 48 hours 12/12/20 18:09 Blood Culture - Preliminary Blood No Growth after 48 hours Assessment and Plan Assessment: 1. Altered mental status changes likely secondary to his Suboxone overdose 2. pneumonia. Patient started on Zithromax and Rocephin 3. Acute COPD exacerbation. IV steroids discontinued her pulmonary recommendations 4. Diabetes mellitus type 2 with hyperglycemia. Patient currently on insulin drip. 5. History of bipolar depression 6. History of GERD 7. History of pancreatic cyst 8. Previous history of drug abuse 9. History of chronic pancreatitis with chronic abdominal pain maintained on Suboxone at home DVT prophylaxis Lovenox. GI prophylaxis Protonix Pulmonary service is consulted Patient maintained on IV steroids Patient maintained on IV Lasix Rocephin and azithromycin Cardiology consult placed Troponins and EKG ordered
[2020-12-15 10:58] LABS: Glucose,Whole Blood 99 mg/dL (75-99)
[2020-12-15 11:48] LABS: Glucose,Whole Blood 83 mg/dL (75-99)
[2020-12-15 13:01] LABS: African American GFR (CKD) 119.1 (60.0-200.0); Albumin 3.4 g/dL (3.80-4.90); Albumin/Globulin Ratio 1.79 (1.60-3.17); Anion Gap 7.3 mmol/L (4.00-12.00); BUN/Creat Ratio 23.33 Ratio (12.00-20.00); Calcium 8.3 mg/dL (8.7-10.3); Carbon Dioxide 26.7 mmol/L (21.6-31.8); Globulin 1.9 g/dL (1.6-3.3); Non-African American GFR(CKD) 102.8 (60.0-200.0); Potassium 3.6 mmol/L (3.5-5.5); Total Bilirubin 0.2 mg/dL (0.3-1.2); Total Protein 5.3 g/dL (6.2-8.2)
[2020-12-15 13:11] LABS: Glucose,Whole Blood 153 mg/dL (75-99)
[2020-12-15 15:05] LABS: Glucose,Whole Blood 285 mg/dL (75-99)
[2020-12-15 17:04] LABS: Glucose,Whole Blood 93 mg/dL (75-99)
[2020-12-15 18:06] LABS: Glucose,Whole Blood 155 mg/dL (75-99)
[2020-12-15 20:33] LABS: Glucose,Whole Blood 275 mg/dL (75-99)
[2020-12-15] MEDS: OLANZapine 10 MG TAB PO SCH (21:11)
[2020-12-15] MEDS: INSULIN DETEMIR (LEVEMIR) 100 UNIT/ML SYR SQ SCH (21:54)
[2020-12-15] MEDS: AZITHROMYCIN 500 MG in SODIUM CHLORIDE 0.9% 250 ML IVPB SCH (21:54)
[2020-12-15 22:06] LABS: Glucose,Whole Blood 214 mg/dL (75-99)
[2020-12-15 22:54] LABS: Glucose,Whole Blood 166 mg/dL (75-99)
[2020-12-16 01:17] LABS: Glucose,Whole Blood 132 mg/dL (75-99)
[2020-12-16 03:04] LABS: Glucose,Whole Blood 132 mg/dL (75-99)
[2020-12-16] MEDS: ACETAMINOPHEN TAB 325 MG TAB PO PRN (03:09)
[2020-12-16 04:53] LABS: Glucose,Whole Blood 105 mg/dL (75-99)
[2020-12-16 07:01] LABS: Glucose,Whole Blood 70 mg/dL (75-99)
[2020-12-16 08:20] LABS: Glucose,Whole Blood 155 mg/dL (75-99)
[2020-12-16] MEDS: IPRATROPIUM-ALBUTEROL 3 ML NEB INHALATION SCH ×2 (08:28→12:37)
[2020-12-16] MEDS: SYMBICORT 160-4.5 MCG INHALER INHALATION SCH (08:28)
[2020-12-16] MEDS ORDERED: LACTULOSE 20 GM/30 ML CUP PO SCH (09:00)
[2020-12-16] MEDS ORDERED: BUMETANIDE 0.25 MG/ML 10 ML VIAL IV SCH (09:00)
[2020-12-16] MEDS: lamoTRIgine 100 MG TAB PO SCH (09:01)
[2020-12-16] MEDS: PANTOPRAZOLE 40 MG TABLET PO SCH (09:01)
[2020-12-16] MEDS: INSULIN ASPART (NovoLOG) 100 UNIT/ML VIAL SQ SCH ×2 (09:02→12:34)
[2020-12-16] MEDS: BUMETANIDE 1 MG TAB PO SCH (09:02)
[2020-12-16] MEDS: ENOXAPARIN 40 MG/0.4 ML SYRINGE SQ SCH (09:02)
[2020-12-16] MEDS: SODIUM CHLORIDE 0.9% 1,000 ML IV SCH (09:03)
[2020-12-16 09:17] LABS: Basophils # (A) 0.02 X 10*3/uL (0.00-0.10); Basophils % (A) 0.3 %; Eosinophils # (A) 0.21 X 10*3/uL (0.04-0.35); Eosinophils % (A) 3.2 %; HCT 37.9 % (39.6-50.0); HGB 11.7 g/dL (13.0-17.0); Lymphocytes # (A) 1.74 X 10*3/uL (0.90-5.00); Lymphocytes % (A) 26.8 %; MCH 26.9 pg (27.0-32.0); MCHC 30.9 g/dL (32.0-37.0); MCV 87.1 fL (80.0-97.0); Mean Platelet Volume 12.5 fL (9.5-12.2); Monocytes # (A) 0.61 X 10*3/uL (0.20-1.00); Monocytes % (A) 9.4 %; Neutrophils # (A) 3.79 X 10*3/uL (1.80-7.70); Neutrophils % (A) 58.3 %; Platelet Count 121 X 10*3/uL (140-440); RBC 4.35 X 10*6/uL (4.40-5.60); RDW 15.9 % (11.5-14.5)
--- NOTE | 2020-12-16 11:12 | CDI ---
Documentation Clarification Form Date: 12/16/2020 10:47:13 AM From: Olga Brito RN, CCDS Admit Date: 12/14/2020 10:03:00 AM Patient Name: Juan Ralph Visit Number: [id number] ATTENTION: The Clinical Documentation Specialists (CDI) and [facility] Coding Staff appreciate your assistance in clarifying documentation. Please respond to the clarification below the line at the bottom and electronically sign. The CDI & [facility] Coding staff will review the response and follow-up if needed. Please note: Queries are made part of the Legal Health Record. If you have any questions, please contact the author of this message via ITS. Dr. Marialuisa Espinoza Your patient has the documented symptom of Altered Mental Status changes likely secondary to his Suboxone overdose" documented in the H&P and Progress notes. Additional clarification regarding the diagnosis of this symptom is requested. History/Risk Factors: Bipolar Depression, COPD, DM2 with hyperglycemia, Chronic pancreatitis w pancreatic pseudocyst with chronic abdominal pain, Hepatitis C, IVDA Clinical Indicators: 12/13 H&P-12/15 Attending Progress Note: "Altered mental status changes likely secondary to his Suboxone overdose." 12/12-12/15Labs: Lactic Acid 2.1/1.0, Ammonia 66/16, Alk Phos 225/210/179/146 12/13 Chest X Ray: Cardiomegaly and left lower lobe atelectasis and infiltrate. 12/12 CT Brain: No acute Process Treatment: Zithromax 500mg IVPB Q HS Rocephin 1GM IVPB Q 12 hrs. Lactulose 30 gm x 1 dose followed by 20GM PO Daily Lamictal 100 mg Po BID 12/12 2L IVF Bolus followed by 100 cc/hr. Please clarify the etiology of the symptom of Altered Mental Status: [ x] Toxic Encephalopathy due to Suboxone Overdose [ x ] Hepatic Encephalopathy due to elevated Ammonia [ ] Metabolic Encephalopathy due to Pneumonia [ ] Other condition (please specify) [ ] Unable to determine (Template Last Revised: May 2020) MTDD
[2020-12-16 11:45] LABS: Glucose,Whole Blood 144 mg/dL (75-99)
[2020-12-16 12:23] LABS: Albumin 3.6 g/dL (3.80-4.90); Albumin/Globulin Ratio 1.89 (1.60-3.17); BUN/Creat Ratio 21.25 Ratio (12.00-20.00); Calcium 8.4 mg/dL (8.7-10.3); Globulin 1.9 g/dL (1.6-3.3); Non-African American GFR(CKD) 107.9 (60.0-200.0); Potassium 3.5 mmol/L (3.5-5.5); Total Bilirubin 0.3 mg/dL (0.3-1.2); Total Protein 5.5 g/dL (6.2-8.2)
--- NOTE | 2020-12-16 12:54 | ECHOF ---
Referral Reason:cp MEASUREMENTS -------- HEIGHT: 177.8 cm WEIGHT: 117.9 kg BP: 121/73 RVIDd: 4.0 cm (< 3.3) IVSd: 1.2 cm (0.6 - 1.1) LVIDd: 3.2 cm (3.9 - 5.3) LVPWd: 1.3 cm (0.6 - 1.1) IVSs: 1.7 cm LVIDs: 1.7 cm LVPWs: 2.0 cm LAESV Index (A-L): 25.84 ml/m Ao Diam: 2.8 cm (2.0 - 3.7) AV Cusp: 1.6 cm (1.5 - 2.6) MV EXCURSION: 12.973 mm (> 18.000) MV EF SLOPE: 76 mm/s (70 - 150) EPSS: 0.7 cm MV E Suman: 1.02 m/s MV DecT: 184 ms MV A Suman: 0.77 m/s MV E/A Ratio: 1.32 RAP: 5.00 mmHg RVSP: 26.14 mmHg FINDINGS -------- Sinus rhythm. This was a technically difficult study with suboptimal apical views. The left ventricular size is normal. There is mild concentric left ventricular hypertrophy. Overa ll left ventricular systolic function is normal with, an EF between 55 - 60 %. The diastolic fillin g pattern is normal for the age of the patient 9.45. The right ventricle is moderately enlarged. Normal LA size by volume 22+/-6 ml/m2. The right atrium was not well visualized. 5.0mg of Lumason was utilized for enhancement of images Interatrial and interventricular septum intact. There is no evidence of aortic regurgitation. There is no evidence of aortic stenosis. No mitral regurgitation. Mild tricuspid regurgitation present. There is no evidence of pulmonary hypertension. The right v entricular systolic pressure, as measured by Doppler, is 26.14mmHg. There is no pulmonic regurgitation present. The aortic root size is normal. IVC Not well visulized. There is no pericardial effusion. CONCLUSIONS -------- 1. The left ventricular size is normal. 2. There is mild concentric left ventricular hypertrophy. 3. Overall left ventricular systolic function is normal with, an EF between 55 - 60 %. 4. The diastolic filling pattern is normal for the age of the patient 9.45 5. The right ventricle is moderately enlarged. 6. Mild tricuspid regurgitation present. [employer]: Sarah Charles RDCS
--- NOTE | 2020-12-16 14:10 | CONS ---
CONSULTATION HISTORY OF PRESENT ILLNESS: This is a 45-year-old gentleman with a known history of obesity, COPD, shortness of breath, who also has type 2 diabetes mellitus, insulin requiring. He was evaluated by Dr. Torres in September and was advised to have a stress test, but prior to that he ended up coming into the hospital with what seems to be an overdose of his Suboxone and had some altered mentation. However, he also now has a pneumonia. We were asked to see him because he had a chest pain and the pain appears to be in the left side of his sternum where it is very focal, musculoskeletal almost reproducible on pressure at the costal chondral junction. Pain is atypical. Patient is resting comfortably. Breathing is easier. He has some lower extremity edema and his shortness of breath seems to have improved. He may have some diastolic dysfunction as well. His last EKG from the office revealed a sinus mechanism without any significant ST-segment changes. EKG here in the hospital was also within normal limits with some nonspecific ST-segment changes. His troponin levels on multiple occasions have come back normal including the one from yesterday. His main issue is altered mentation, which has resolved and that could have been related to Suboxone and he also had pneumonia for which he is on antibiotics. At the time of my evaluation, he is resting comfortably without symptoms. Has no chest pain, shortness of breath, or palpitations. PAST MEDICAL HISTORY: Remarkable for: 1. Hypertension. 2. History of chronic obstructive pulmonary disease. 3. Diabetes. 4. Hyperlipidemia. 5. There is also a question of some seizure disorder. 6. He has had pancreatitis in the past and also has had some spontaneous pneumothorax, appendectomy and cholecystectomy. The details of most of these conditions are unclear. He has had some thoracoscopic decortication as well of the right side. However, at this time, patient is resting comfortably without symptoms. MEDICATIONS: Medications at home include: Remeron, Lamictal, insulin, Symbicort inhaler and he also takes omeprazole. ALLERGIES: HE IS ALLERGIC TO CODEINE, HALDOL, AND PROCHLORPERAZINE. PHYSICAL EXAMINATION: On examination, blood pressure is 120/70, pulse rate 78 per minute and regular. HEENT unremarkable. Fundus was not examined by me. NECK is supple. There is no significant JVD. No carotid bruit. HEART exam reveals S1, S2 heard normally. No significant murmurs. LUNGS revealed decent air entry in upper zones. Diminished breath sounds both lower zones. ABDOMEN is distended, nontender. No organomegaly. Lower EXTREMITIES reveal diminished pulses, bilateral mild edema. CENTRAL NERVOUS SYSTEM grossly within normal limits. EKG revealed sinus mechanism, no acute changes. LAB DATA: Revealed unremarkable troponins. IMPRESSION: 1. Atypical chest pain. 2. Pneumonia. 3. History of previous lung issues with multiple procedures. 4. Diabetes. 5. Hypertension. RECOMMENDATIONS: I am recommending an echo to assess LV function. Intravenous Bumex 1 dose and continue oral Bumex. He can be discharged after his current pneumonia situation resolves and he can follow up with Dr. Torres in 2 weeks and we will pursue outpatient workup by way of a stress test. Echo will be done today. Thank you very much for the consult. MMODL / IJN: [id number] /
--- NOTE | 2020-12-16 14:41 | P.CONS ---
History of Present Illness - Reason for Consult Consult date: 12/16/20 Elevated ammonia level Requesting physician: Marialuisa Espinoza - Chief Complaint Suboxone overdose - History of Present Illness This is a 45-year-old male patient who presented to the emergency department on 12/12/2020 with altered mental status. The patient states he does not recall last week Wednesday through and has no memory of coming to the emergency department. Possibility of Suboxone overdose. Patient does have a history of opioid dependence and abuse, now currently on Suboxone. He does have a past medical history of opioid dependence, IV drug use, hepatitis C treated with interferon 6 years ago, chronic pancreatitis, diabetes mellitus, and COPD. On admission he was noted to have an elevated ammonia level of 66, he was started on lactulose 30 g daily his repeat ammonia level was 16. Patient states he is having anywhere from 5-7 bowel movements a day. He was recently admitted to the hospital with altered mental status changes and fever and was diagnosed with pneumonia and sepsis. At that time he had an ultrasound of the liver that showed heterogeneous hyperechoic liver with enlarged right hepatic lobe findings suggestive of hepatic steatosis or hepatocellular disease. He also had a cystic lesion in the region of the pancreas measuring 5.1 cm that could represent a pancreatic cystic lesion or a pancreatic fluid collection. Appears that there was a cystic lesion associated with the tail of the pancreas seen on CT of the abdomen and pelvis dated 01/27/2020 however at that time measured up to 2.3 cm. Patient does have a history of chronic pancreatitis which she states was from gallstone pancreatitis and diagnosed initially approximately 3 years ago and underwent surgery 2 years ago. Current labs WBC 5, hemoglobin 11.6, hematocrit 37, platelet count 121,000, total bilirubin 0.2, alkaline phosphatase 146, AST 34, ALT 29. He states his confusion has improved since he has been hospitalized, he denies any abdominal pain, nausea, or vomiting. He denies any blood or black stool. States he now has mental clarity, alert and oriented 3. Review of Systems REVIEW OF SYSTEMS: CARDIOPULMONARY: No chest pain or shortness of breath. Gastrointestinal: No abdominal pain.. No nausea or vomiting. No hematemesis, coffee-ground emesis. No rectal bleeding, or melena. GENITOURINARY: No dysuria or hematuria. MUSCULOSKELETAL: Reports normal range of motion., Joint pain. SKIN: No rashes. No jaundice. ENDOCRINE: No chills, fevers. No excessive weight gain or loss. No polydipsia or polyuria. PSYCHIATRIC: Unremarkable. NEUROLOGY: No change in mental status. Denies dizziness, headache. ENT: Vision unremarkable. CONSTITUTIONAL: No recent weight loss. No fever, chills, night sweats. Altered mental status on admission. 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 with surgery/difficulty with incision healing/past cellulitis abdomin, IDDM type II, bronchitis, R lung spontaneous pneumo with surgery, last seizure 2011, hepatitis C with interferon over 6 yrs ago, past IV drug abuse-no drugs for over one year except for one slip/on suboxone, DDD, occasional low back pain, History of Any Multi-Drug Resistant Organisms: None Reported Past Surgical History: Appendectomy, Cholecystectomy Additional Past Surgical History / Comment(s): 2018 lap/laparotomy/partial omenectomy/cystogastrectomy/lysis of adhesions, 2019 open incision hernia repair with mesh-difficulty with incision healing since, EGD, colonoscopy, R lung thorascopy/decortication, bilateral eye RK for vision correction. Past Anesthesia/Blood Transfusion Reactions: No Reported Reaction Past Psychological History: Anxiety, Bipolar, Depression Smoking Status: Current every day smoker Past Alcohol Use History: None Reported Past Drug Use History: None Reported - Past Family History Brother(s) Additional Family Medical History / Comment(s): Chronic alcoholism in 2 brothers Sister(s) Additional Family Medical History / Comment(s): Chronic alcoholism Daughter(s) Family Medical History: No Reported History Additional Family Medical History / Comment(s): One daughter healthy Son(s) Family Medical History: No Reported History Additional Family Medical History / Comment(s): One son healthy Father History Unknown: Yes Family Medical History: AICD/Pacemaker, Myocardial Infarction ([place]), Renal Disease Additional Family Medical History / Comment(s): Schizophrenia. Per patient, his father at the age of 59 from renal failure. Mother History Unknown: Yes Family Medical History: Hypertension Additional Family Medical History / Comment(s): HPV Medications and Allergies Home Medications Medication Instructions Recorded Confirmed Type Mirtazapine [Remeron] 15 mg PO HS 11/23/16 12/12/20 History lamoTRIgine [LaMICtal] 100 mg PO BID 03/13/17 12/12/20 History OLANZapine [ZyPREXA] 10 mg PO HS 03/28/18 12/12/20 History Buprenorphine HCl/Naloxone HCl 1 tab SL BID 01/27/20 12/12/20 History [Buprenorphine-Nalox 8-2 mg Tab] INSULIN ASPART (NovoLOG) [NovoLOG 20 - 60 unit SQ AC-TID 07/21/20 12/12/20 History (formulary)] Insulin Glargine [Lantus Vial] 50 - 60 unit SQ HS 07/21/20 12/12/20 History Omeprazole 20 mg PO BID 07/21/20 12/12/20 History Budesonide-Formot 160-4.5 Mcg 2 puff INHALATION RT-BID 07/27/20 12/12/20 History [Symbicort 160-4.5 Mcg Inhaler] Bumetanide [BUMEX] 1 mg PO DAILY 11/16/20 12/12/20 History Potassium Chloride [Klor-Con 10 ER] 10 meq PO DAILY 11/16/20 12/12/20 History Cefdinir 300 mg PO Q12HR 7 Days #14 cap 12/16/20 Rx Ipratropium-Albuterol Nebulize 3 ml INHALATION RT-QID ml 12/16/20 Rx [Duoneb 0.5 mg-3 mg/3 ml Soln] Lactulose [Cephulac] 20 gm PO DAILY ml 12/16/20 Rx Allergies Allergy/AdvReac Type Severity Reaction Status Date / Time codeine Allergy Swelling Verified 12/12/20 17:33 furosemide [From Lasix] Allergy Rash/Hives Verified 12/12/20 17:33 haloperidol [From Haldol] Allergy Unknown Verified 12/12/20 17:33 prochlorperazine Allergy Swelling Verified 12/12/20 17:33 Physical Exam Vitals: Vital Signs Temp Pulse Pulse Resp BP Pulse Ox 12/16/20 08:35 82 12/16/20 08:29 80 95 12/16/20 08:00 98.4 F 78 18 121/73 97 12/16/20 02:00 97.8 F 80 18 102/64 95 12/15/20 20:06 87 12/15/20 19:57 86 12/15/20 19:30 97.8 F 87 18 121/75 96 12/15/20 16:54 85 12/15/20 16:45 84 12/15/20 14:00 97.4 F L 94 20 150/98 96 12/15/20 11:22 84 12/15/20 11:14 90 Intake and Output 12/15/20 12/16/20 12/16/20 22:59 06:59 14:59 Intake Total 38.791 8.766 Balance 38.791 8.766 Intake: Intake, IV Titration 38.791 8.766 Amount Insulin Regular 100 unit 38.791 8.766 In Sodium Chloride 0.9% 100 ml @ Titrate IV .Q0M [facility] Rx#:[id number] Other: # Voids 1 1 General appearance: The patient is alert, oriented, appears in no acute distress. HET: Head is normocephalic and atraumatic. Conjunctiva pink. Sclera anicteric. Neck: Supple without lymphadenopathy. Trachea midline. Heart: S1 S2. Regular rate and rhythm. Lungs: Clear to auscultation. Abdomen: Soft, nontender, nondistended with bowel sounds. No guarding or rigidity. Skin: No rashes. No jaundice. Extremities: Normal skin color and turgor. No pedal edema. Neurological: No focal deficits. Alert and oriented 3.. Results CBC & Chem 7: 12/16/20 06:00 12/16/20 06:00 Labs: Abnormal Lab Results - Last 24 Hours (Table) 12/15/20 12/15/20 12/15/20 Range/Units 06:06 06:06 13:09 RBC 4.24 L (4.40-5.60) X 10*6/uL Hgb 11.6 L (13.0-17.0) g/dL Hct 37.7 L (39.6-50.0) % MCH (27.0-32.0) pg MCHC 30.8 L (32.0-37.0) g/dL RDW 15.9 H (11.5-14.5) % Plt Count 121 L (140-440) X 10*3/uL MPV 12.7 H (9.5-12.2) fL Immature Gran # 0.09 H (0.00-0.04) X 10*3/uL Sodium 147 H (135-145) mmol/L Chloride 113 H (96-109) mmol/L BUN/Creatinine Ratio 23.33 H (12.00-20.00) Ratio Glucose 163 H (70-110) mg/dL POC Glucose (mg/dL) 153 H (75-99) mg/dL Calcium 8.3 L (8.7-10.3) mg/dL Total Bilirubin 0.2 L (0.3-1.2) mg/dL Alkaline Phosphatase 146 H (41-126) U/L Total Protein 5.3 L (6.2-8.2) g/dL Albumin 3.40 L (3.80-4.90) g/dL 12/15/20 12/15/20 12/15/20 Range/Units 15:04 18:04 20:31 RBC (4.40-5.60) X 10*6/uL Hgb (13.0-17.0) g/dL Hct (39.6-50.0) % MCH (27.0-32.0) pg MCHC (32.0-37.0) g/dL RDW (11.5-14.5) % Plt Count (140-440) X 10*3/uL MPV (9.5-12.2) fL Immature Gran # (0.00-0.04) X 10*3/uL Sodium (135-145) mmol/L Chloride (96-109) mmol/L BUN/Creatinine Ratio (12.00-20.00) Ratio Glucose (70-110) mg/dL POC Glucose (mg/dL) 285 H 155 H 275 H (75-99) mg/dL Calcium (8.7-10.3) mg/dL Total Bilirubin (0.3-1.2) mg/dL Alkaline Phosphatase (41-126) U/L Total Protein (6.2-8.2) g/dL Albumin (3.80-4.90) g/dL 12/15/20 12/15/20 12/16/20 Range/Units 22:05 22:53 01:16 RBC (4.40-5.60) X 10*6/uL Hgb (13.0-17.0) g/dL Hct (39.6-50.0) % MCH (27.0-32.0) pg MCHC (32.0-37.0) g/dL RDW (11.5-14.5) % Plt Count (140-440) X 10*3/uL MPV (9.5-12.2) fL Immature Gran # (0.00-0.04) X 10*3/uL Sodium (135-145) mmol/L Chloride (96-109) mmol/L BUN/Creatinine Ratio (12.00-20.00) Ratio Glucose (70-110) mg/dL POC Glucose (mg/dL) 214 H 166 H 132 H (75-99) mg/dL Calcium (8.7-10.3) mg/dL Total Bilirubin (0.3-1.2) mg/dL Alkaline Phosphatase (41-126) U/L Total Protein (6.2-8.2) g/dL Albumin (3.80-4.90) g/dL 12/16/20 12/16/20 12/16/20 Range/Units 03:02 04:53 06:00 RBC 4.35 L (4.40-5.60) X 10*6/uL Hgb 11.7 L (13.0-17.0) g/dL Hct 37.9 L (39.6-50.0) % MCH 26.9 L (27.0-32.0) pg MCHC 30.9 L (32.0-37.0) g/dL RDW 15.9 H (11.5-14.5) % Plt Count 121 L (140-440) X 10*3/uL MPV 12.5 H (9.5-12.2) fL Immature Gran # 0.13 H (0.00-0.04) X 10*3/uL Sodium (135-145) mmol/L Chloride (96-109) mmol/L BUN/Creatinine Ratio (12.00-20.00) Ratio Glucose (70-110) mg/dL POC Glucose (mg/dL) 132 H 105 H (75-99) mg/dL Calcium (8.7-10.3) mg/dL Total Bilirubin (0.3-1.2) mg/dL Alkaline Phosphatase (41-126) U/L Total Protein (6.2-8.2) g/dL Albumin (3.80-4.90) g/dL 12/16/20 12/16/20 Range/Units 06:59 08:18 RBC (4.40-5.60) X 10*6/uL Hgb (13.0-17.0) g/dL Hct (39.6-50.0) % MCH (27.0-32.0) pg MCHC (32.0-37.0) g/dL RDW (11.5-14.5) % Plt Count (140-440) X 10*3/uL MPV (9.5-12.2) fL Immature Gran # (0.00-0.04) X 10*3/uL Sodium (135-145) mmol/L Chloride (96-109) mmol/L BUN/Creatinine Ratio (12.00-20.00) Ratio Glucose (70-110) mg/dL POC Glucose (mg/dL) 70 L 155 H (75-99) mg/dL Calcium (8.7-10.3) mg/dL Total Bilirubin (0.3-1.2) mg/dL Alkaline Phosphatase (41-126) U/L Total Protein (6.2-8.2) g/dL Albumin (3.80-4.90) g/dL Microbiology - Last 24 Hours (Table) 12/12/20 18:09 Blood Culture - Preliminary Blood No Growth after 72 hours 12/12/20 18:09 Blood Culture - Preliminary Blood No Growth after 72 hours Assessment and Plan (1) Hyperammonemia Narrative/Plan: 45-year-old male who presented to the emergency department on 12/12/2020 altered mental status changes. Patient states he cannot recall last week Wednesday through , he was noted to have elevated ammonia level of 66. He was started on lactulose 30 g daily. He states he is having anywhere from 5-7 bowel movements a day. He has a past medical history of chronic pancreatitis, hepatitis C opioid dependence and abuse, diabetes mellitus, and COPD. His reported they believe the patient had Suboxone overdose. Patient was recently admitted for pneumonia and sepsis at that time he underwent an ultrasound of the liver that showed heterogeneous hyperechoic liver with enlarged right hepatic lobe findings suggestive of hepatic state ptosis or hepatocellular disease. Also had a cystic lesion in the region of the pancreas measuring 5.1 cm that could represent a pancreatic cystic lesion or pancreatic fluid collection. The patient is alert and oriented 3, denies any abdominal pain, nausea, or vomiting. Denies any jaundice. He has followed up with Hollie Perez previously for his hepatitis C and pancreatitis last time seen was about 1-2 years ago. Elevated pneumonia likely related to underlying liver disease related to hepatitis C. Will continue patient on lactulose daily with outpatient follow-up. Current Visit: No Status: Acute Code(s): E72.20 - DISORDER OF UREA CYCLE METABOLISM, UNSPECIFIED SNOMED Code(s): 7288863 (2) Altered mental status Current Visit: Yes Status: Acute Code(s): R41.82 - ALTERED MENTAL STATUS, UNSPECIFIED SNOMED Code(s): 264842305 (3) History of hepatitis C Current Visit: No Status: Resolved Code(s): Z86.19 - PERSONAL HISTORY OF OTHER INFECTIOUS AND PARASITIC DISEASES SNOMED Code(s): 81196005408169 Plan: 1. Continue symptomatic and supportive care 2. Diabetes tolerated 3. Decrease lactulose to 20 g daily 4. Patient will need repeat ammonia level in one week 5. Patient will need outpatient surveillance for pancreatic cyst, recommend repeat CT of the abdomen and pelvis in 3 months Thank you for this consultation, we will continue to follow. Dr. Susan Quiroga I agree with the dictator's note, documented as a scribe by Darling Pinedo.
[2020-12-16 15:14] VITALS: BP 115/74; PULSE 96; RESP 16; TEMP 98.1
[2020-12-17] MEDS ORDERED: LACTULOSE 20 GM/30 ML CUP PO SCH (09:00)
--- NOTE | 2020-12-18 12:49 | P.DS ---
Providers Date of admission: 12/14/20 10:03 Expected date of discharge: 12/16/20 Attending physician: Marialuisa Espinoza Consults: 12/13/20 08:59 Consult Physician Routine Consulting Provider: Mckay Washington Consult Reason/Comments: copd exacerbation, pneumonia Do you want consulting provider notified?: Yes 12/13/20 10:03 Consult Physician Routine Consulting Provider: Kianna Quiroga Consult Reason/Comments: elevated ammonia level Do you want consulting provider notified?: Yes 12/15/20 10:34 Consult Physician Routine Consulting Provider: Chance Davidson Consult Reason/Comments: chest pain Do you want consulting provider notified?: Yes Primary care physician: Marialuisa Olga [facility] Course: Discharge diagnosis 1. Altered mental status changes likely secondary to his Suboxone overdose 2. pneumonia. Patient started on Zithromax and Rocephin 3. Acute COPD exacerbation. IV steroids discontinued her pulmonary recommendations 4. Diabetes mellitus type 2 with hyperglycemia. Patient currently on insulin drip. 5. History of bipolar depression 6. History of GERD 7. History of pancreatic cyst 8. Previous history of drug abuse 9. History of chronic pancreatitis with chronic abdominal pain maintained on Suboxone at home Hospital course This is a 45-year-old male patient who presented to the ER with concerns of altered mental status and concerns over overdose of Suboxone. Patient reports that he actually took 20 mg of Suboxone at once over the last 12 hours. Patient denies any suicidal ideation. Patient does have past medical history of IV drug abuse which he is on Suboxone, asthma, COPD, diabetes mellitus, GERD, seizure disorder and chronic pancreatitis. Head CT was performed showing no acute process. Chest x-ray completed showing cardiomegaly and left lower lobe atelectasis or infiltrate. Initial lactic acid 2.7. Initial ammonia 66. Patient also having elevated blood sugar 488. Patient has been started on IV antibiotics for possible pneumonia. IV steroids for COPD exacerbation. Pulmonary services have been consulted. Repeat labs ordered. Upon exam patient appears sleepy but does wake up and follow commands but quickly falls back to sleep. Patient denies chest pain. Patient denies nausea vomiting or diarrhea. Patient denies any urinary burning or frequency. On 12/14/2020 Patient was seen and examined on the medical floor, he is alert and oriented x 3 in no distress, he is complaining of cough and shortness of breath with activity he is complaining of abdominal pain which is chronic for him due to chronic pancreatitis otherwise he denies any complaints there is no fever or chills no headache or dizziness no chest pain no palpitation no nausea or vomiting no diarrhea no blood in the stools no burning with urination no frequency or urgency and no hematuria, there is no weakness or numbness in any of the extremities no change in vision speech or gait. On 06/25/2022 1 patient is alert and oriented 3. Patient today is complaining of chest pain reports that he cannot remember if he came in with bed but has been having it for the last day. Will order troponins EKG and cardiology consult. D-dimer also ordered. Patient denies any nausea vomiting or diarrhea. Patient denies any urinary burning or frequency On 12/16/2020. Patient was evaluated by cardiology services 2-D echo completed. Patient will follow-up outpatient with cardiology services for stress test. Patient also be DC'd on antibiotic for pneumonia. Patient denies any chest pain or shortness breath. Patient denies nausea vomiting or diarrhea. Patient denies any urinary burning or frequency Patient Condition at Discharge: Stable Plan - Discharge Summary New Discharge Prescriptions: New Lactulose [Cephulac] 20 gm PO DAILY ml Cefdinir 300 mg PO Q12HR 7 Days #14 cap Ipratropium-Albuterol Nebulize [Duoneb 0.5 mg-3 mg/3 ml Soln] 3 ml INHALATION RT-QID ml Continue Mirtazapine [Remeron] 15 mg PO HS lamoTRIgine [LaMICtal] 100 mg PO BID OLANZapine [ZyPREXA] 10 mg PO HS Buprenorphine HCl/Naloxone HCl [Buprenorphine-Nalox 8-2 mg Tab] 1 tab SL BID Budesonide-Formot 160-4.5 Mcg [Symbicort 160-4.5 Mcg Inhaler] 2 puff INHALATION RT-BID Bumetanide [BUMEX] 1 mg PO DAILY Omeprazole 20 mg PO BID Insulin Glargine [Lantus Vial] 50 - 60 unit SQ HS INSULIN ASPART (NovoLOG) [NovoLOG (formulary)] 20 - 60 unit SQ AC-TID Potassium Chloride [Klor-Con 10 ER] 10 meq PO DAILY Discharge Medication List Mirtazapine [Remeron] 15 mg PO HS 11/23/16 [History] lamoTRIgine [LaMICtal] 100 mg PO BID 03/13/17 [History] OLANZapine [ZyPREXA] 10 mg PO HS 03/28/18 [History] Buprenorphine HCl/Naloxone HCl [Buprenorphine-Nalox 8-2 mg Tab] 1 tab SL BID 01/27/20 [History] INSULIN ASPART (NovoLOG) [NovoLOG (formulary)] 20 - 60 unit SQ AC-TID 07/21/20 [History] Insulin Glargine [Lantus Vial] 50 - 60 unit SQ HS 07/21/20 [History] Omeprazole 20 mg PO BID 07/21/20 [History] Budesonide-Formot 160-4.5 Mcg [Symbicort 160-4.5 Mcg Inhaler] 2 puff INHALATION RT-BID 07/27/20 [History] Bumetanide [BUMEX] 1 mg PO DAILY 11/16/20 [History] Potassium Chloride [Klor-Con 10 ER] 10 meq PO DAILY 11/16/20 [History] Cefdinir 300 mg PO Q12HR 7 Days #14 cap 12/16/20 [Rx] Ipratropium-Albuterol Nebulize [Duoneb 0.5 mg-3 mg/3 ml Soln] 3 ml INHALATION RT-QID ml 12/16/20 [Rx] Lactulose [Cephulac] 20 gm PO DAILY ml 12/16/20 [Rx] Follow up Appointment(s)/Referral(s): Kianna Quiroga MD [STAFF PHYSICIAN] - 1 Week (Make appointment with Marcy Tipton NP) Marialuisa Espinoza MD [Primary Care Provider] - 1-2 days (Will call with an appointment) Jake Torres MD [STAFF PHYSICIAN] - 2 Weeks (Please call and make an appointment) Discharge Disposition: HOME SELF-CARE
== END 2020-12-16 15:30 | disposition home or self-care (01) | DRG 917 ==
LOC: EC 17:28 → 6NMEDSUR 20:53 → 5NMEDONC 12-13 05:05 → 4SSUR 12-13 11:45 → OBSVTOIN 12-14 10:03 → 4SSUR 12-15 15:41
PROVIDERS: ADMIT Internal Medicine; ATTEND Internal Medicine
DX: T50.7X2A Poisoning by analeptics and opioid receptor antagonists, intentional self-harm, initial encounter (principal); J18.9 Pneumonia, unspecified organism; G92 Toxic encephalopathy; K86.1 Other chronic pancreatitis; J44.1 Chronic obstructive pulmonary disease with (acute) exacerbation; J44.0 Chronic obstructive pulmonary disease with (acute) lower respiratory infection; E72.20 Disorder of urea cycle metabolism, unspecified; F11.20 Opioid dependence, uncomplicated; J45.901 Unspecified asthma with (acute) exacerbation; J98.11 Atelectasis; K72.90 Hepatic failure, unspecified without coma; K21.9 Gastro-esophageal reflux disease without esophagitis; G40.909 Epilepsy, unspecified, not intractable, without status epilepticus; E11.65 Type 2 diabetes mellitus with hyperglycemia; Z79.4 Long term (current) use of insulin; Z79.51 Long term (current) use of inhaled steroids; F31.9 Bipolar disorder, unspecified; F17.200 Nicotine dependence, unspecified, uncomplicated; D69.6 Thrombocytopenia, unspecified; Z20.822 Contact with and (suspected) exposure to COVID-19; Z82.49 Family history of ischemic heart disease and other diseases of the circulatory system; B19.20 Unspecified viral hepatitis C without hepatic coma; E78.5 Hyperlipidemia, unspecified; I10 Essential (primary) hypertension; Z79.899 Other long term (current) drug therapy; Z81.8 Family history of other mental and behavioral disorders; F41.9 Anxiety disorder, unspecified
CPT/HCPCS: 36415; 70450; 71045; 71046; 80053; 80143; 80179; 80306; 80320; 81003; 82140; 83036; 83605; 84145; 84484; 85025; 85379; 85610; 85730; 87040; 87635; 93005; 93306; 94640; 94760; 96361; 96365; 96367; 96372; 96375; 96376; 99285

== ENCOUNTER → 2020-12-18 | Outpatient (CLI) | payer MEDICARE ==
[2020-12-18 12:47] LABS: African American GFR (CKD) 119.1 (60.0-200.0); Albumin 4.4 g/dL (3.80-4.90); Albumin/Globulin Ratio 1.83 (1.60-3.17); Anion Gap 9.6 mmol/L (4.00-12.00); BUN/Creat Ratio 11.11 Ratio (12.00-20.00); Calcium 9.7 mg/dL (8.7-10.3); Carbon Dioxide 27.4 mmol/L (21.6-31.8); Chol/HDL Ratio 3.84; Globulin 2.4 g/dL (1.6-3.3); LDL Cholesterol,Calculated 79.4 mg/dL (0.0-131.0); Non-African American GFR(CKD) 102.8 (60.0-200.0); Potassium 4.1 mmol/L (3.5-5.5); Total Bilirubin 0.5 mg/dL (0.3-1.2); Total Protein 6.8 g/dL (6.2-8.2); VLDL Calculation 42.6 mg/dL (5.00-40.00)
[2020-12-18 21:34] LABS: Urine Creatinine 149.7 mg/dL
== END | disposition home or self-care (01) ==
LOC: LABWHC1 07:30
PROVIDERS: ATTEND Internal Medicine Endocrinology, Diabetes & Metabolism
DX: E11.65 Type 2 diabetes mellitus with hyperglycemia (principal)
CPT/HCPCS: 36415; 80053; 80061; 82043; 82570; 83036; 84443

== ENCOUNTER 2021-01-19 12:03 | Emergency (ER) | payer MEDICARE ==
[2021-01-19 12:48] VITALS: TEMP 97.8
[2021-01-19] MEDS ORDERED: HYDROmorphone 0.5 MG/0.5 ML SYRINGE IVP STA (13:07)
[2021-01-19] MEDS ORDERED: SODIUM CHLORIDE 0.9% 1,000 ML IV STA (13:07)
--- NOTE | 2021-01-19 13:10 | ED ---
Abdominal Pain HPI - General Chief Complaint: Abdominal Pain Stated Complaint: abd pain Time Seen by Provider: 01/19/21 12:58 Source: patient, RN notes reviewed, old records reviewed Mode of arrival: ambulatory Limitations: no limitations - History of Present Illness Initial Comments: 45-year-old well-appearing white male patient presents to the emergency room with complaints of left upper and left lower quadrant abdominal pain since Wednesday. He states that it is cramping in nature. It is a 9 out of 10. He does have history of pancreatitis and states it feels similar to his previous attacks. He was last hospitalized for pancreatitis 3 years ago. Does have a history also of hepatitis C, diabetes, seizures, COPD. He has been afebrile. He denies any nausea or vomiting. He does state that he has a history of a pancreatic cyst that is being monitored every [address] Quiroga. Complaint: abdominal pain -: days(s) (5) Location: LUQ, LLQ Radiation: none Severity scale (1-10): 9 Quality: cramping Consistency: constant Improves With: nothing Worsens With: nothing Context: other (History of pancreatitis) Associated Symptoms: denies other symptoms - Related Data Home Medications Medication Instructions Recorded Confirmed Mirtazapine [Remeron] 15 mg PO HS 11/23/16 12/12/20 lamoTRIgine [LaMICtal] 100 mg PO BID 03/13/17 12/12/20 OLANZapine [ZyPREXA] 10 mg PO HS 03/28/18 12/12/20 Buprenorphine HCl/Naloxone HCl 1 tab SL BID 01/27/20 12/12/20 [Buprenorphine-Nalox 8-2 mg Tab] INSULIN ASPART (NovoLOG) [NovoLOG 20 - 60 unit SQ AC-TID 07/21/20 12/12/20 (formulary)] Insulin Glargine [Lantus Vial] 50 - 60 unit SQ HS 07/21/20 12/12/20 Omeprazole 20 mg PO BID 07/21/20 12/12/20 Budesonide-Formot 160-4.5 Mcg 2 puff INHALATION RT-BID 07/27/20 12/12/20 [Symbicort 160-4.5 Mcg Inhaler] Bumetanide [BUMEX] 1 mg PO DAILY 11/16/20 12/12/20 Potassium Chloride [Klor-Con 10 ER] 10 meq PO DAILY 11/16/20 12/12/20 Previous Rx's Medication Instructions Recorded Cefdinir 300 mg PO Q12HR 7 Days #14 cap 12/16/20 Ipratropium-Albuterol Nebulize 3 ml INHALATION RT-QID ml 12/16/20 [Duoneb 0.5 mg-3 mg/3 ml Soln] Lactulose [Cephulac] 20 gm PO DAILY ml 12/16/20 Allergies Allergy/AdvReac Type Severity Reaction Status Date / Time codeine Allergy Swelling Verified 01/19/21 12:48 furosemide [From Lasix] Allergy Rash/Hives Verified 01/19/21 12:48 haloperidol [From Haldol] Allergy Unknown Verified 01/19/21 12:48 prochlorperazine Allergy Swelling Verified 01/19/21 12:48 Review of Systems ROS Statement: Those systems with pertinent positive or pertinent negative responses have been documented in the HPI. ROS Other: All systems not noted in ROS Statement are negative. 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 with surgery/difficulty with incision healing/past cellulitis abdomin, IDDM type II, bronchitis, R lung spontaneous pneumo with surgery, last seizure 2011, hepatitis C with interferon over 6 yrs ago, past IV drug abuse-no drugs for over one year except for one slip/on suboxone, DDD, occasional low back pain, History of Any Multi-Drug Resistant Organisms: None Reported Past Surgical History: Appendectomy, Cholecystectomy Additional Past Surgical History / Comment(s): 2018 lap/laparotomy/partial ome nectomy/cystogastrectomy/lysis of adhesions, 2019 open incision hernia repair with mesh-difficulty with incision healing since, EGD, colonoscopy, R lung thorascopy/decortication, bilateral eye RK for vision correction. Past Anesthesia/Blood Transfusion Reactions: No Reported Reaction Past Psychological History: Anxiety, Bipolar, Depression Smoking Status: Current every day smoker Past Alcohol Use History: None Reported Past Drug Use History: None Reported - Past Family History Brother(s) Additional Family Medical History / Comment(s): Chronic alcoholism in 2 brothers Sister(s) Additional Family Medical History / Comment(s): Chronic alcoholism Daughter(s) Family Medical History: No Reported History Additional Family Medical History / Comment(s): One daughter healthy Son(s) Family Medical History: No Reported History Additional Family Medical History / Comment(s): One son healthy Father History Unknown: Yes Family Medical History: AICD/Pacemaker, Myocardial Infarction ([place]), Renal Disease Additional Family Medical History / Comment(s): Schizophrenia. Per patient, his father at the age of 59 from renal failure. Mother History Unknown: Yes Family Medical History: Hypertension Additional Family Medical History / Comment(s): HPV General Exam Limitations: no limitations General appearance: alert, in no apparent distress Head exam: Present: atraumatic, normocephalic, normal inspection Eye exam: Present: normal appearance, PERRL, EOMI. Absent: scleral icterus, conjunctival injection, periorbital swelling ENT exam: Present: normal exam, normal oropharynx, mucous membranes moist Neck exam: Present: normal inspection, full ROM. Absent: tenderness, meningismus, lymphadenopathy Respiratory exam: Present: wheezes. Absent: chest wall tenderness, accessory muscle use, decreased breath sounds Cardiovascular Exam: Present: regular rate, normal rhythm, normal heart sounds. Absent: systolic murmur, diastolic murmur, rubs, gallop, clicks GI/Abdominal exam: Present: soft, distended, tenderness (Left upper and left lower quadrant), normal bowel sounds, mass (Left upper quadrant). Absent: guarding, rebound, rigid Extremities exam: Present: normal inspection, full ROM, normal capillary refill. Absent: tenderness, pedal edema, joint swelling, calf tenderness Back exam: Present: full ROM. Absent: tenderness, CVA tenderness (R), CVA tenderness (L) Neurological exam: Present: alert, oriented X3, CN II-XII intact Psychiatric exam: Present: normal affect, normal mood Skin exam: Present: warm, dry, intact, normal color. Absent: rash Course Vital Signs 01/19/21 01/19/21 12:46 14:18 Temperature 97.8 F Pulse Rate 95 78 Respiratory 18 20 Rate Blood Pressure 128/85 132/68 O2 Sat by Pulse 95 99 Oximetry Medical Decision Making - Medical Decision Making Patient's labs are unremarkable. His glucose is elevated and he was given IV fluids. 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 His abdomen is soft and he does have a history of pancreatic cyst. Instructed to return to emergency room with a new worsening symptoms. Case was discussed with Dr. Solis. - Lab Data Result diagrams: 01/19/21 13:08 01/19/21 13:08 Lab Results 01/19/21 01/19/21 01/19/21 Range/Units 13:08 13:08 13:08 WBC 10.5 (3.8-10.6) k/uL RBC 4.93 (4.30-5.90) m/uL Hgb 14.0 (13.0-17.5) gm/dL Hct 43.9 (39.0-53.0) % MCV 89.1 (80.0-100.0) fL MCH 28.4 (25.0-35.0) pg MCHC 31.9 (31.0-37.0) g/dL RDW 14.2 (11.5-15.5) % Plt Count 113 L (150-450) k/uL MPV 11.1 Neutrophils % 68 % Lymphocytes % 22 % Monocytes % 4 % Eosinophils % 4 % Basophils % 1 % Neutrophils # 7.2 (1.3-7.7) k/uL Lymphocytes # 2.3 (1.0-4.8) k/uL Monocytes # 0.5 (0-1.0) k/uL Eosinophils # 0.4 (0-0.7) k/uL Basophils # 0.1 (0-0.2) k/uL PT 10.8 (9.0-12.0) sec INR 1.0 (<1.2) APTT 23.7 (22.0-30.0) sec Sodium (137-145) mmol/L Potassium (3.5-5.1) mmol/L Chloride (98-107) mmol/L Carbon Dioxide (22-30) mmol/L Anion Gap mmol/L BUN (9-20) mg/dL Creatinine (0.66-1.25) mg/dL Est GFR (CKD-EPI)AfAm (>60 ml/min/1.73 sqM) Est GFR (CKD-EPI)NonAf (>60 ml/min/1.73 sqM) Glucose (74-99) mg/dL Plasma Lactic Acid Mynor (0.7-2.0) mmol/L Calcium (8.4-10.2) mg/dL Total Bilirubin (0.2-1.3) mg/dL AST (17-59) U/L ALT (4-49) U/L Alkaline Phosphatase (38-126) U/L Total Protein (6.3-8.2) g/dL Albumin (3.5-5.0) g/dL Amylase (30-110) U/L Lipase (23-300) U/L Urine Color Yellow Urine Appearance Clear (Clear) Urine pH 6.0 (5.0-8.0) Ur Specific [place] 1.019 (1.001-1.035) Urine Protein Trace H (Negative) Urine Glucose (UA) Negative (Negative) Urine Ketones Negative (Negative) Urine Blood Negative (Negative) Urine Nitrite Negative (Negative) Urine Bilirubin Negative (Negative) Urine Urobilinogen <2.0 (<2.0) mg/dL Ur Leukocyte Esterase Negative (Negative) 01/19/21 01/19/21 Range/Units 13:08 13:08 WBC (3.8-10.6) k/uL RBC (4.30-5.90) m/uL Hgb (13.0-17.5) gm/dL Hct (39.0-53.0) % MCV (80.0-100.0) fL MCH (25.0-35.0) pg MCHC (31.0-37.0) g/dL RDW (11.5-15.5) % Plt Count (150-450) k/uL MPV Neutrophils % % Lymphocytes % % Monocytes % % Eosinophils % % Basophils % % Neutrophils # (1.3-7.7) k/uL Lymphocytes # (1.0-4.8) k/uL Monocytes # (0-1.0) k/uL Eosinophils # (0-0.7) k/uL Basophils # (0-0.2) k/uL PT (9.0-12.0) sec INR (<1.2) APTT (22.0-30.0) sec Sodium 136 L (137-145) mmol/L Potassium 4.1 (3.5-5.1) mmol/L Chloride 100 (98-107) mmol/L Carbon Dioxide 26 (22-30) mmol/L Anion Gap 10 mmol/L BUN 11 (9-20) mg/dL Creatinine 0.68 (0.66-1.25) mg/dL Est GFR (CKD-EPI)AfAm >90 (>60 ml/min/1.73 sqM) Est GFR (CKD-EPI)NonAf >90 (>60 ml/min/1.73 sqM) Glucose 322 H (74-99) mg/dL Plasma Lactic Acid Mynor 1.9 (0.7-2.0) mmol/L Calcium 9.6 (8.4-10.2) mg/dL Total Bilirubin 0.6 (0.2-1.3) mg/dL AST 34 (17-59) U/L ALT 33 (4-49) U/L Alkaline Phosphatase 199 H (38-126) U/L Total Protein 7.3 (6.3-8.2) g/dL Albumin 4.4 (3.5-5.0) g/dL Amylase 51 (30-110) U/L Lipase 96 (23-300) U/L Urine Color Urine Appearance (Clear) Urine pH (5.0-8.0) Ur Specific [place] (1.001-1.035) Urine Protein (Negative) Urine Glucose (UA) (Negative) Urine Ketones (Negative) Urine Blood (Negative) Urine Nitrite (Negative) Urine Bilirubin (Negative) Urine Urobilinogen (<2.0) mg/dL Ur Leukocyte Esterase (Negative) Disposition Clinical Impression: Abdominal pain, Pancreatic cyst Disposition: HOME SELF-CARE Condition: Good Instructions (If sedation given, give patient instructions): Abdominal Pain (E D) Additional Instructions: Follow-up with Dr. Quiroga next week. Return to the emergency room with any new or worsening symptoms including increased pain, fevers or inability to keep food and fluids down. Is patient prescribed a controlled substance at d/c from ED?: No Referrals: Marialuisa Espinoza MD [Primary Care Provider] - 1-2 days Kianna Quiroga MD [STAFF PHYSICIAN] - 1-2 days Time of Disposition: 14:29
[2021-01-19 13:29] LABS: Basophils # (A) 0.1 k/uL (0-0.2); Basophils % (A) 1 %; Eosinophils # (A) 0.4 k/uL (0-0.7); Eosinophils % (A) 4 %; HCT 43.9 % (39.0-53.0); Lymphocytes # (A) 2.3 k/uL (1.0-4.8); Lymphocytes % (A) 22 %; MCH 28.4 pg (25.0-35.0); MCHC 31.9 g/dL (31.0-37.0); MCV 89.1 fL (80.0-100.0); Mean Platelet Volume 11.1; Monocytes # (A) 0.5 k/uL (0-1.0); Monocytes % (A) 4 %; Neutrophils # (A) 7.2 k/uL (1.3-7.7); Neutrophils % (A) 68 %; Platelet Count 113 k/uL (150-450); RBC 4.93 m/uL (4.30-5.90); RDW 14.2 % (11.5-15.5); WBC 10.5 k/uL (3.8-10.6)
[2021-01-19 13:52] LABS: Appearance,Urine Clear (Clear); Bilirubin,Urine Negative (Negative); Blood,Urine Negative (Negative); Color,Urine Yellow; Glucose,Urine (UA) Negative (Negative); Ketones,Urine Negative (Negative); Leukocyte Esterase,Urine Negative (Negative); Nitrite,Urine Negative (Negative); Protein,Urine Trace (Negative); Specific Gravity,Urine 1.019 (1.001-1.035); Urobilinogen,Urine <2.0 mg/dL (<2.0)
[2021-01-19 13:59] LABS: ALT 33 U/L (4-49); AST 34 U/L (17-59); African American GFR (CKD) >90 (>60 ml/min/1.73 sqM); Albumin 4.4 g/dL (3.5-5.0); Alkaline Phosphatase 199 U/L (38-126); Amylase 51 U/L (30-110); Anion Gap 10 mmol/L; Blood Urea Nitrogen 11 mg/dL (9-20); Calcium 9.6 mg/dL (8.4-10.2); Carbon Dioxide 26 mmol/L (22-30); Chloride 100 mmol/L (98-107); Glucose 322 mg/dL (74-99); Lipase 96 U/L (23-300); Non-African American GFR(CKD) >90 (>60 ml/min/1.73 sqM); Potassium 4.1 mmol/L (3.5-5.1); Sodium 136 mmol/L (137-145); Total Bilirubin 0.6 mg/dL (0.2-1.3); Total Protein 7.3 g/dL (6.3-8.2)
[2021-01-19 14:03] LABS: Partial Thromboplastin Time 23.7 sec (22.0-30.0); Prothrombin Time 10.8 sec (9.0-12.0)
[2021-01-19 14:19] VITALS: BP 132/68; PULSE 78; RESP 20
[2021-01-19] MEDS ORDERED: HYDROmorphone 1 MG/ML 1 ML SYRINGE IVP STA (14:21)
== END 2021-01-19 14:44 | disposition home or self-care (01) ==
LOC: EC 12:03
DX: K86.2 Cyst of pancreas (principal); J44.9 Chronic obstructive pulmonary disease, unspecified; E11.9 Type 2 diabetes mellitus without complications; G40.909 Epilepsy, unspecified, not intractable, without status epilepticus; K21.9 Gastro-esophageal reflux disease without esophagitis; F17.200 Nicotine dependence, unspecified, uncomplicated; Z90.49 Acquired absence of other specified parts of digestive tract; Z88.5 Allergy status to narcotic agent; Z88.8 Allergy status to other drugs, medicaments and biological substances; Z79.51 Long term (current) use of inhaled steroids; Z79.4 Long term (current) use of insulin; Z79.899 Other long term (current) drug therapy
CPT/HCPCS: 36415; 80053; 82150; 83605; 83690; 85025; 85610; 85730; 81003; 99284; 96374; 96376; 96361; J1170 ×2

== ENCOUNTER 2021-01-22 08:25 | Emergency (ER) | payer MEDICARE ==
[2021-01-22] MEDS ORDERED: HYDROmorphone 0.5 MG/0.5 ML SYRINGE IVP STA ×2 (08:38→10:34)
[2021-01-22] MEDS ORDERED: SODIUM CHLORIDE 0.9% 1,000 ML IV STA (08:38)
--- NOTE | 2021-01-22 09:25 | ED ---
General Adult HPI - General Chief complaint: Abdominal Pain Stated complaint: Abdominal Pain Time Seen by Provider: 01/22/21 08:30 Source: patient, RN notes reviewed, old records reviewed Mode of arrival: ambulatory Limitations: no limitations - History of Present Illness Initial comments: 45-year-old male presenting for evaluation of abdominal pain. Patient has had pain for at least the past week. He was seen previously in the emergency department and had followed up with his primary care physician. He was instructed to return if the pain should worsen. The pain is left upper quadrant. He's been having normal bowel movements and passing gas. No vomiting. No fever. He states the pain is quite severe. - Related Data Home Medications Medication Instructions Recorded Confirmed Mirtazapine [Remeron] 15 mg PO HS 11/23/16 01/22/21 lamoTRIgine [LaMICtal] 100 mg PO BID 03/13/17 01/22/21 OLANZapine [ZyPREXA] 10 mg PO HS 03/28/18 01/22/21 Buprenorphine HCl/Naloxone HCl 1 tab SL BID 01/27/20 01/22/21 [Buprenorphine-Nalox 8-2 mg Tab] INSULIN ASPART (NovoLOG) [NovoLOG 21 unit SQ AC-TID 07/21/20 01/22/21 (formulary)] Insulin Glargine [Lantus Vial] 15 - 30 unit SQ HS 07/21/20 01/22/21 Omeprazole 20 mg PO DAILY 07/21/20 01/22/21 Budesonide-Formot 160-4.5 Mcg 2 puff INHALATION RT-BID 07/27/20 01/22/21 [Symbicort 160-4.5 Mcg Inhaler] Bumetanide [BUMEX] 1 mg PO DAILY 11/16/20 01/22/21 Potassium Chloride [Klor-Con 10 ER] 10 meq PO DAILY 11/16/20 01/22/21 Albuterol Sulfate [Ventolin HFA] 1 - 2 puff INHALATION RT-Q6H PRN 01/22/21 01/22/21 Lactulose [Cephulac] 20 gm PO DAILY PRN 01/22/21 01/22/21 Allergies Allergy/AdvReac Type Severity Reaction Status Date / Time codeine Allergy Swelling Verified 01/22/21 11:14 furosemide [From Lasix] Allergy Rash/Hives Verified 01/22/21 11:14 haloperidol [From Haldol] Allergy Unknown Verified 01/22/21 11:14 prochlorperazine Allergy Swelling Verified 01/22/21 11:14 Review of Systems ROS Statement: Those systems with pertinent positive or pertinent negative responses have been documented in the HPI. ROS Other: All systems not noted in ROS Statement are negative. 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 with surgery/difficulty with incision healing/p ast cellulitis abdomin, IDDM type II, bronchitis, R lung spontaneous pneumo with surgery, last seizure 2011, hepatitis C with interferon over 6 yrs ago, past IV drug abuse-no drugs for over one year except for one slip/on suboxone, DDD, occasional low back pain, History of Any Multi-Drug Resistant Organisms: None Reported Past Surgical History: Appendectomy, Cholecystectomy Additional Past Surgical History / Comment(s): 2018 lap/laparotomy/partial omenectomy/cystogastrectomy/lysis of adhesions, 2019 open incision hernia repair with mesh-difficulty with incision healing since, EGD, colonoscopy, R lung thorascopy/decortication, bilateral eye RK for vision correction. Past Anesthesia/Blood Transfusion Reactions: No Reported Reaction Past Psychological History: Anxiety, Bipolar, Depression Smoking Status: Current every day smoker Past Alcohol Use History: None Reported Past Drug Use History: None Reported - Past Family History Brother(s) Additional Family Medical History / Comment(s): Chronic alcoholism in 2 brothers Sister(s) Additional Family Medical History / Comment(s): Chronic alcoholism Daughter(s) Family Medical History: No Reported History Additional Family Medical History / Comment(s): One daughter healthy Son(s) Family Medical History: No Reported History Additional Family Medical History / Comment(s): One son healthy Father History Unknown: Yes Family Medical History: AICD/Pacemaker, Myocardial Infarction ([place]), Renal Disease Additional Family Medical History / Comment(s): Schizophrenia. Per patient, his father at the age of 59 from renal failure. Mother History Unknown: Yes Family Medical History: Hypertension Additional Family Medical History / Comment(s): HPV General Exam Limitations: no limitations General appearance: alert, in no apparent distress Head exam: Present: atraumatic, normocephalic Eye exam: Present: normal appearance ENT exam: Present: normal exam Neck exam: Present: normal inspection. Absent: tenderness Respiratory exam: Present: normal lung sounds bilaterally, respiratory distress Cardiovascular Exam: Present: regular rate, normal rhythm GI/Abdominal exam: Present: distended, tenderness (Left upper quadrant) Extremities exam: Present: normal inspection, normal capillary refill Neurological exam: Present: alert, oriented X3, CN II-XII intact, normal gait. Absent: motor sensory deficit Psychiatric exam: Present: normal affect, normal mood Skin exam: Present: warm, dry, intact. Absent: cyanosis, diaphoretic Course Vital Signs 01/22/21 01/22/21 01/22/21 08:27 15:04 16:00 Temperature 98.8 F 98.3 F 98.3 F Pulse Rate 98 88 75 Respiratory 18 18 17 Rate Blood Pressure 126/75 127/83 129/78 O2 Sat by Pulse 94 L 95 98 Oximetry 01/22/21 01/23/21 01/23/21 18:35 01:38 04:37 Temperature 98.1 F 98.4 F 98.6 F Pulse Rate 81 93 79 Respiratory 18 18 18 Rate Blood Pressure 131/74 138/71 133/70 O2 Sat by Pulse 98 95 94 L Oximetry 01/23/21 01/23/21 01/23/21 08:00 11:01 11:15 Temperature 99.0 F 98.1 F Pulse Rate 83 65 Respiratory 16 16 Rate Blood Pressure 146/98 133/72 O2 Sat by Pulse 95 95 Oximetry - Reevaluation(s) Reevaluation #1: 01/22/21 15:10 Patient currently awaiting a bed placement at [facility]. Continue antibiotics and pain medication been ordered for this patient awaiting transfer. Reevaluation #2: 01/23/21 11:52 Patient reevaluated after continuing to wait in the emergency department for transfer to [facility]. Laboratory studies are repeated. These are stable improving white blood cell count, normal electrolytes blood sugar 168. Patient will be continued on pain medication and IV antibiotics. Medical Decision Making - Medical Decision Making 45-year-old male with worsening abdominal pain history of pancreatitis pseudocyst which did require drainage in the remote past at [facility]. CT performed shows an enlarging cyst, possible abscess, given the elevated white blood cell count of 13 he is started on antibiotics. He is hemodynamically stable and afebrile. I suspect this is an enlarging pseudocyst and may require drainage. I discussed case with Dr. Espinoza and at this time felt that the patient would be best served with transfer back to [facility]. I discussed case with Dr. Mondragon, at [facility] who will accept transfer. - Lab Data Result diagrams: 01/23/21 08:42 01/23/21 08:42 Lab Results 01/22/21 01/22/21 01/22/21 Range/Units 09:14 09:14 09:14 WBC 13.3 H (3.8-10.6) k/uL RBC 4.79 (4.30-5.90) m/uL Hgb 13.8 (13.0-17.5) gm/dL Hct 42.3 (39.0-53.0) % MCV 88.3 (80.0-100.0) fL MCH 28.9 (25.0-35.0) pg MCHC 32.7 (31.0-37.0) g/dL RDW 14.1 (11.5-15.5) % Plt Count 137 L (150-450) k/uL MPV 10.8 Neutrophils % 78 % Lymphocytes % 13 % Monocytes % 6 % Eosinophils % 3 % Basophils % 0 % Neutrophils # 10.4 H (1.3-7.7) k/uL Lymphocytes # 1.7 (1.0-4.8) k/uL Monocytes # 0.7 (0-1.0) k/uL Eosinophils # 0.3 (0-0.7) k/uL Basophils # 0.1 (0-0.2) k/uL PT 10.8 (9.0-12.0) sec INR 1.0 (<1.2) APTT 22.5 (22.0-30.0) sec Sodium (137-145) mmol/L Potassium (3.5-5.1) mmol/L Chloride (98-107) mmol/L Carbon Dioxide (22-30) mmol/L Anion Gap mmol/L BUN (9-20) mg/dL Creatinine (0.66-1.25) mg/dL Est GFR (CKD-EPI)AfAm (>60 ml/min/1.73 sqM) Est GFR (CKD-EPI)NonAf (>60 ml/min/1.73 sqM) Glucose (74-99) mg/dL Plasma Lactic Acid Mynor (0.7-2.0) mmol/L Calcium (8.4-10.2) mg/dL Total Bilirubin (0.2-1.3) mg/dL AST (17-59) U/L ALT (4-49) U/L Alkaline Phosphatase (38-126) U/L Total Protein (6.3-8.2) g/dL Albumin (3.5-5.0) g/dL Amylase (30-110) U/L Lipase (23-300) U/L Urine Color Yellow Urine Appearance Clear (Clear) Urine pH 6.5 (5.0-8.0) Ur Specific [place] 1.035 (1.001-1.035) Urine Protein Negative (Negative) Urine Glucose (UA) Negative (Negative) Urine Ketones Negative (Negative) Urine Blood Negative (Negative) Urine Nitrite Negative (Negative) Urine Bilirubin Negative (Negative) Urine Urobilinogen 2.0 (<2.0) mg/dL Ur Leukocyte Esterase Negative (Negative) Coronavirus (PCR) (Not Detectd) 01/22/21 01/22/21 01/22/21 Range/Units 09:14 09:14 13:28 WBC (3.8-10.6) k/uL RBC (4.30-5.90) m/uL Hgb (13.0-17.5) gm/dL Hct (39.0-53.0) % MCV (80.0-100.0) fL MCH (25.0-35.0) pg MCHC (31.0-37.0) g/dL RDW (11.5-15.5) % Plt Count (150-450) k/uL MPV Neutrophils % % Lymphocytes % % Monocytes % % Eosinophils % % Basophils % % Neutrophils # (1.3-7.7) k/uL Lymphocytes # (1.0-4.8) k/uL Monocytes # (0-1.0) k/uL Eosinophils # (0-0.7) k/uL Basophils # (0-0.2) k/uL PT (9.0-12.0) sec INR (<1.2) APTT (22.0-30.0) sec Sodium 137 (137-145) mmol/L Potassium 4.0 (3.5-5.1) mmol/L Chloride 103 (98-107) mmol/L Carbon Dioxide 25 (22-30) mmol/L Anion Gap 9 mmol/L BUN 13 (9-20) mg/dL Creatinine 0.66 (0.66-1.25) mg/dL Est GFR (CKD-EPI)AfAm >90 (>60 ml/min/1.73 sqM) Est GFR (CKD-EPI)NonAf >90 (>60 ml/min/1.73 sqM) Glucose 203 H (74-99) mg/dL Plasma Lactic Acid Mynor 0.9 (0.7-2.0) mmol/L Calcium 9.4 (8.4-10.2) mg/dL Total Bilirubin 0.6 (0.2-1.3) mg/dL AST 33 (17-59) U/L ALT 28 (4-49) U/L Alkaline Phosphatase 191 H (38-126) U/L Total Protein 7.0 (6.3-8.2) g/dL Albumin 4.2 (3.5-5.0) g/dL Amylase 51 (30-110) U/L Lipase 57 (23-300) U/L Urine Color Urine Appearance (Clear) Urine pH (5.0-8.0) Ur Specific [place] (1.001-1.035) Urine Protein (Negative) Urine Glucose (UA) (Negative) Urine Ketones (Negative) Urine Blood (Negative) Urine Nitrite (Negative) Urine Bilirubin (Negative) Urine Urobilinogen (<2.0) mg/dL Ur Leukocyte Esterase (Negative) Coronavirus (PCR) Not Detected (Not Detectd) 01/23/21 01/23/21 Range/Units 08:42 08:42 WBC 11.2 H (3.8-10.6) k/uL RBC 4.66 (4.30-5.90) m/uL Hgb 13.3 (13.0-17.5) gm/dL Hct 41.6 (39.0-53.0) % MCV 89.3 (80.0-100.0) fL MCH 28.5 (25.0-35.0) pg MCHC 31.9 (31.0-37.0) g/dL RDW 14.1 (11.5-15.5) % Plt Count 151 (150-450) k/uL MPV 10.5 Neutrophils % 74 % Lymphocytes % 17 % Monocytes % 6 % Eosinophils % 2 % Basophils % 0 % Neutrophils # 8.3 H (1.3-7.7) k/uL Lymphocytes # 1.9 (1.0-4.8) k/uL Monocytes # 0.7 (0-1.0) k/uL Eosinophils # 0.2 (0-0.7) k/uL Basophils # 0.0 (0-0.2) k/uL PT (9.0-12.0) sec INR (<1.2) APTT (22.0-30.0) sec Sodium 136 L (137-145) mmol/L Potassium 3.7 (3.5-5.1) mmol/L Chloride 102 (98-107) mmol/L Carbon Dioxide 22 (22-30) mmol/L Anion Gap 12 mmol/L BUN 11 (9-20) mg/dL Creatinine 0.67 (0.66-1.25) mg/dL Est GFR (CKD-EPI)AfAm >90 (>60 ml/min/1.73 sqM) Est GFR (CKD-EPI)NonAf >90 (>60 ml/min/1.73 sqM) Glucose 168 H (74-99) mg/dL Plasma Lactic Acid Mynor (0.7-2.0) mmol/L Calcium 8.7 (8.4-10.2) mg/dL Total Bilirubin 0.9 (0.2-1.3) mg/dL AST 27 (17-59) U/L ALT 25 (4-49) U/L Alkaline Phosphatase 186 H (38-126) U/L Total Protein 6.6 (6.3-8.2) g/dL Albumin 4.0 (3.5-5.0) g/dL Amylase (30-110) U/L Lipase (23-300) U/L Urine Color Urine Appearance (Clear) Urine pH (5.0-8.0) Ur Specific [place] (1.001-1.035) Urine Protein (Negative) Urine Glucose (UA) (Negative) Urine Ketones (Negative) Urine Blood (Negative) Urine Nitrite (Negative) Urine Bilirubin (Negative) Urine Urobilinogen (<2.0) mg/dL Ur Leukocyte Esterase (Negative) Coronavirus (PCR) (Not Detectd) Disposition Clinical Impression: Pancreatic pseudocyst, Leukocytosis Disposition: OTHER INSTITUTION NOT DEFINED Condition: Stable Is patient prescribed a controlled substance at d/c from ED?: No Referrals: Marialuisa Espinoza MD [Primary Care Provider] - 1-2 days Time of Disposition: 11:21 - Out of Hospital Transfer - Req. Specs Out of Hospital Transfer - Requested Specifics: Telemetry Unit (Transferred to [facility])
[2021-01-22 09:29] LABS: Basophils # (A) 0.1 k/uL (0-0.2); Basophils % (A) 0 %; Eosinophils # (A) 0.3 k/uL (0-0.7); Eosinophils % (A) 3 %; HCT 42.3 % (39.0-53.0); HGB 13.8 gm/dL (13.0-17.5); Lymphocytes # (A) 1.7 k/uL (1.0-4.8); Lymphocytes % (A) 13 %; MCH 28.9 pg (25.0-35.0); MCHC 32.7 g/dL (31.0-37.0); MCV 88.3 fL (80.0-100.0); Mean Platelet Volume 10.8; Monocytes # (A) 0.7 k/uL (0-1.0); Monocytes % (A) 6 %; Neutrophils # (A) 10.4 k/uL (1.3-7.7); Neutrophils % (A) 78 %; Platelet Count 137 k/uL (150-450); RBC 4.79 m/uL (4.30-5.90); RDW 14.1 % (11.5-15.5); WBC 13.3 k/uL (3.8-10.6)
[2021-01-22 09:41] LABS: Partial Thromboplastin Time 22.5 sec (22.0-30.0); Prothrombin Time 10.8 sec (9.0-12.0)
[2021-01-22 09:42] LABS: ALT 28 U/L (4-49); AST 33 U/L (17-59); African American GFR (CKD) >90 (>60 ml/min/1.73 sqM); Albumin 4.2 g/dL (3.5-5.0); Alkaline Phosphatase 191 U/L (38-126); Amylase 51 U/L (30-110); Anion Gap 9 mmol/L; Blood Urea Nitrogen 13 mg/dL (9-20); Calcium 9.4 mg/dL (8.4-10.2); Carbon Dioxide 25 mmol/L (22-30); Chloride 103 mmol/L (98-107); Glucose 203 mg/dL (74-99); Lipase 57 U/L (23-300); Non-African American GFR(CKD) >90 (>60 ml/min/1.73 sqM); Sodium 137 mmol/L (137-145); Total Bilirubin 0.6 mg/dL (0.2-1.3)
--- NOTE | 2021-01-22 10:27 | CT ---
EXAMINATION TYPE: CT abdomen pelvis w con DATE OF EXAM: 01/22/2021 COMPARISON: 01/27/2020 INDICATION: mid abd pain DLP: 2204 mGycm, Automated exposure control for dose reduction was used. CONTRAST: 100 mL of Isovue 300. Study performed without Oral Contrast TECHNIQUE: Axial images were obtained from above the diaphragm to the pubic rami in the axial plane a t 5 mm thick sections. Reconstructed images are reviewed on the computer in the coronal plane. FINDINGS: Limited CT sections are obtained the lung bases. There is a 0.9 cm calcification within the right mi ddle lobe near the base. Mild subsegmental atelectasis may be present in the anterior lung bases bila terally. CT ABDOMEN: Liver: Normal Spleen: Enlarged measuring 17.0 cm. Normal less than 12.5 cm. Calcified splenic granulomas noted. Pancreas: There is a large hypodensity within the body and tail the pancreas measuring 8.9 x 4.8 cm m ay be a pseudocyst. Previous measurement is 2.3 cm. Adrenal glands: The adrenal glands are normal. Gallbladder: Not identified Kidneys: No masses are evident. No hydronephrosis is present. No cysts are present. Delayed images were obtained through the kidneys, which remain unremarkable. Aorta: Normal Inferior vena cava: Normal. CT PELVIS: Some mild diffuse wall thickening of the sigmoid colon may be present. Correlate for colitis. Studies without oral contrast causing some limitation on the evaluation. There are loops of bowel which are incompletely distended or lack oral contrast limiting their evaluation. Appendix: Not identified. No dilated tubular structure or inflammatory changes evident. Urinary bladder: Normal. Genitourinary structures: Prostate is normal Osseous structures: No suspicious lytic or sclerotic lesions. IMPRESSIONS: 1. Suspected pseudocyst formation within the body and tail of the pancreas. Cystic neoplasm should b e considered within the differential. This has enlarged over the interval. Abscess formation consider ed less likely within the differential. 2. Splenomegaly
[2021-01-22] MEDS ORDERED: PIPERACILLIN-TAZOBACTAM 3.375 GM in SODIUM CHLORIDE 0.9% 100 ML IVPB STA (10:54)
[2021-01-22] MEDS: SODIUM CHLORIDE 0.9% 1,000 ML IV SCH ×2 (11:02→22:02)
[2021-01-22 11:39] LABS: Appearance,Urine Clear (Clear); Bilirubin,Urine Negative (Negative); Blood,Urine Negative (Negative); Color,Urine Yellow; Glucose,Urine (UA) Negative (Negative); Ketones,Urine Negative (Negative); Leukocyte Esterase,Urine Negative (Negative); Nitrite,Urine Negative (Negative); PH, Urine 6.5 (5.0-8.0); Protein,Urine Negative (Negative); Specific Gravity,Urine 1.035 (1.001-1.035)
[2021-01-22] MEDS: HYDROmorphone 0.5 MG/0.5 ML SYRINGE IVP PRN ×3 (15:03→22:01)
[2021-01-22] MEDS: PIPERACILLIN-TAZOBACTAM 3.375 GM in SODIUM CHLORIDE 0.9% 100 ML IVPB SCH (19:04)
[2021-01-23] MEDS: HYDROmorphone 0.5 MG/0.5 ML SYRINGE IVP PRN ×8 (01:45→23:26)
[2021-01-23] MEDS: PIPERACILLIN-TAZOBACTAM 3.375 GM in SODIUM CHLORIDE 0.9% 100 ML IVPB SCH ×3 (03:23→20:23)
[2021-01-23] MEDS: SODIUM CHLORIDE 0.9% 1,000 ML IV SCH ×2 (08:00→23:23)
[2021-01-23 09:03] LABS: Basophils % (A) 0 %; Eosinophils # (A) 0.2 k/uL (0-0.7); Eosinophils % (A) 2 %; HCT 41.6 % (39.0-53.0); HGB 13.3 gm/dL (13.0-17.5); Lymphocytes # (A) 1.9 k/uL (1.0-4.8); Lymphocytes % (A) 17 %; MCH 28.5 pg (25.0-35.0); MCHC 31.9 g/dL (31.0-37.0); MCV 89.3 fL (80.0-100.0); Mean Platelet Volume 10.5; Monocytes # (A) 0.7 k/uL (0-1.0); Monocytes % (A) 6 %; Neutrophils # (A) 8.3 k/uL (1.3-7.7); Neutrophils % (A) 74 %; Platelet Count 151 k/uL (150-450); RBC 4.66 m/uL (4.30-5.90); RDW 14.1 % (11.5-15.5); WBC 11.2 k/uL (3.8-10.6)
[2021-01-23 09:22] LABS: ALT 25 U/L (4-49); AST 27 U/L (17-59); African American GFR (CKD) >90 (>60 ml/min/1.73 sqM); Alkaline Phosphatase 186 U/L (38-126); Anion Gap 12 mmol/L; Blood Urea Nitrogen 11 mg/dL (9-20); Calcium 8.7 mg/dL (8.4-10.2); Carbon Dioxide 22 mmol/L (22-30); Chloride 102 mmol/L (98-107); Glucose 168 mg/dL (74-99); Non-African American GFR(CKD) >90 (>60 ml/min/1.73 sqM); Potassium 3.7 mmol/L (3.5-5.1); Sodium 136 mmol/L (137-145); Total Bilirubin 0.9 mg/dL (0.2-1.3); Total Protein 6.6 g/dL (6.3-8.2)
[2021-01-23] MEDS ORDERED: PANTOPRAZOLE 40 MG/10 ML VIAL IVP STA (23:31)
[2021-01-24] MEDS: HYDROmorphone 0.5 MG/0.5 ML SYRINGE IVP PRN ×7 (03:15→22:53)
[2021-01-24] MEDS: PIPERACILLIN-TAZOBACTAM 3.375 GM in SODIUM CHLORIDE 0.9% 100 ML IVPB SCH ×3 (03:22→20:11)
[2021-01-24] MEDS: SODIUM CHLORIDE 0.9% 1,000 ML IV SCH ×2 (03:22→13:43)
[2021-01-25] MEDS: SODIUM CHLORIDE 0.9% 1,000 ML IV SCH ×3 (00:22→19:34)
[2021-01-25] MEDS: HYDROmorphone 0.5 MG/0.5 ML SYRINGE IVP PRN ×6 (04:08→21:19)
[2021-01-25] MEDS: PIPERACILLIN-TAZOBACTAM 3.375 GM in SODIUM CHLORIDE 0.9% 100 ML IVPB SCH ×2 (05:17→14:41)
[2021-01-26] MEDS: HYDROmorphone 0.5 MG/0.5 ML SYRINGE IVP PRN ×4 (00:42→12:59)
[2021-01-26] MEDS ORDERED: PIPERACILLIN-TAZOBACTAM 3.375 GM in SODIUM CHLORIDE 0.9% 100 ML IVPB SCH ×2 (03:00→08:00)
[2021-01-26] MEDS: PIPERACILLIN-TAZOBACTAM 3.375 GM in SODIUM CHLORIDE 0.9% 100 ML IVPB SCH (04:48)
[2021-01-26] MEDS: SODIUM CHLORIDE 0.9% 1,000 ML IV SCH (05:53)
[2021-01-26 09:21] VITALS: TEMP 98.8
[2021-01-26 13:49] VITALS: BP 125/61; PULSE 87; RESP 20
== END 2021-01-26 14:37 | disposition other institution (70) ==
LOC: EC 08:25
DX: K86.3 Pseudocyst of pancreas (principal); D72.829 Elevated white blood cell count, unspecified; J44.9 Chronic obstructive pulmonary disease, unspecified; E11.9 Type 2 diabetes mellitus without complications; K21.9 Gastro-esophageal reflux disease without esophagitis; G40.909 Epilepsy, unspecified, not intractable, without status epilepticus; F17.200 Nicotine dependence, unspecified, uncomplicated; Z88.0 Allergy status to penicillin; Z20.822 Contact with and (suspected) exposure to COVID-19; Z88.5 Allergy status to narcotic agent; Z79.4 Long term (current) use of insulin; Z79.899 Other long term (current) drug therapy; Z79.51 Long term (current) use of inhaled steroids
CPT/HCPCS: 99285; 36415 ×2; 80053 ×2; 82150; 83605; 83690; 85025 ×2; 85610; 85730; 81003; 87635 ×2; 74177; 96365; 96366; 96368; 96375; 96376; 96361; 96374; J2543 ×5; C9113; J1170 ×5; Q9967

== ENCOUNTER 2022-10-28 16:53 | Emergency (ER) | payer MEDICARE ==
[2022-10-28 17:21] VITALS: RESP 18; TEMP 97.9
--- NOTE | 2022-10-28 18:15 | ED ---
ENT HPI - General Source: patient, RN notes reviewed Mode of arrival: ambulatory Limitations: no limitations <Radha Martin - Last Filed: 10/28/22 18:15> <David Fitzpatrick - Last Filed: 10/28/22 20:49> - General Chief complaint: ENT Stated complaint: Soreness on L Side Face,Hard to swallow Time Seen by Provider: 10/28/22 18:00 - History of Present Illness Initial comments: This is a 47-year-old male who presents emergency department for pain and swelling to the left side of his face and neck. States that this started around 2 PM and is making it painful to swallow. (Radha Martin) - Related Data Home Medications Medication Instructions Recorded Confirmed Mirtazapine [Remeron] 15 mg PO HS 11/23/16 01/22/21 lamoTRIgine [LaMICtal] 100 mg PO BID 03/13/17 01/22/21 OLANZapine [ZyPREXA] 10 mg PO HS 03/28/18 01/22/21 Buprenorphine-Nalox 8-2 mg Tab 1 tab SL BID 01/27/20 01/22/21 [Suboxone 8-2 mg Tab] INSULIN ASPART (NovoLOG) [NovoLOG 21 unit SQ AC-TID 07/21/20 01/22/21 (formulary)] Insulin Glargine [Lantus Vial] 15 - 30 unit SQ HS 07/21/20 01/22/21 Omeprazole 20 mg PO DAILY 07/21/20 01/22/21 Budesonide-Formot 160-4.5 Mcg 2 puff INHALATION RT-BID 07/27/20 01/22/21 [Symbicort 160-4.5 Mcg Inhaler] Bumetanide [BUMEX] 1 mg PO DAILY 11/16/20 01/22/21 Potassium Chloride [Klor-Con 10 ER] 10 meq PO DAILY 11/16/20 01/22/21 Albuterol Sulfate [Ventolin HFA] 1 - 2 puff INHALATION RT-Q6H PRN 01/22/21 01/22/21 Lactulose [Cephulac] 20 gm PO DAILY PRN 01/22/21 01/22/21 Allergies Allergy/AdvReac Type Severity Reaction Status Date / Time codeine Allergy Swelling Verified 10/28/22 17:19 furosemide [From Lasix] Allergy Rash/Hives Verified 10/28/22 17:19 haloperidol [From Haldol] Allergy Unknown Verified 10/28/22 17:19 prochlorperazine Allergy Swelling Verified 10/28/22 17:19 Review of Systems ROS Other: All systems not noted in ROS Statement are negative. <Radha Martin - Last Filed: 10/28/22 18:15> ROS Other: All systems not noted in ROS Statement are negative. <David Fitzpatrick - Last Filed: 10/28/22 20:49> ROS Statement: Those systems with pertinent positive or pertinent negative responses have been documented in the HPI. 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 with surgery/difficulty with incision healing/past cellulitis abdomin, IDDM type II, bronchitis, R lung spontaneous pneumo with surgery, last seizure 2011, hepatitis C with interferon over 6 yrs ago, past IV drug abuse-no drugs for over one year except for one slip/on suboxone, DDD, occasional low back pain, History of Any Multi-Drug Resistant Organisms: None Reported Past Surgical History: Appendectomy, Cholecystectomy Additional Past Surgical History / Comment(s): 2018 lap/laparotomy/partial omenectomy/cystogastrectomy/lysis of adhesions, 2019 open incision hernia repair with mesh-difficulty with incision healing since, EGD, colonoscopy, R lung thorascopy/decortication, bilateral eye RK for vision correction. Past Anesthesia/Blood Transfusion Reactions: No Reported Reaction Past Psychological History: Anxiety, Bipolar, Depression Smoking Status: Current every day smoker Past Alcohol Use History: None Reported Past Drug Use History: None Reported - Past Family History Brother(s) Additional Family Medical History / Comment(s): Chronic alcoholism in 2 brothers Sister(s) Additional Family Medical History / Comment(s): Chronic alcoholism Daughter(s) Family Medical History: No Reported History Additional Family Medical History / Comment(s): One daughter healthy Son(s) Family Medical History: No Reported History Additional Family Medical History / Comment(s): One son healthy Father History Unknown: Yes Family Medical History: AICD/Pacemaker, Myocardial Infarction ([place]), Renal Disease Additional Family Medical History / Comment(s): Schizophrenia. Per patient, his father at the age of 59 from renal failure. Mother History Unknown: Yes Family Medical History: Hypertension Additional Family Medical History / Comment(s): HPV <Radha Martin - Last Filed: 10/28/22 18:15> General Exam Limitations: no limitations <Radha Martin - Last Filed: 10/28/22 18:15> - General Exam Comments Initial Comments: Visual Physical Exam Vital signs reviewed General: Well-appearing, nontoxic, no acute distress. Head: Normocephalic, atraumatic Eyes: PERRLA, EOMI ENT: Airway patent Chest: Nonlabored breathing Skin: No visual rash, normal skin tone Neuro: Alert and oriented 3 Musculoskeletal: No gross abnormalities (Radha Martin) Course <David Fitzpatrick - Last Filed: 10/28/22 20:49> Vital Signs 10/28/22 17:19 Temperature 97.9 F Pulse Rate 106 H Respiratory 18 Rate Blood Pressure 155/104 O2 Sat by Pulse 97 Oximetry - Reevaluation(s) Reevaluation #4: 10/28/22 20:49 37 male presents with significant intoxication, patient concern for recent history of stroke in symptoms prior to arrival. Patient is very combative here upon arrival especially with staff with recurrent bouts of combativeness. Patient has significant alcohol intoxication and normal computed tomography scan of his brain. At this time patient has no neurological deficits noted and will be admitted for observation and hydration (David Fitzpatrick) Disposition <Radha Martin - Last Filed: 10/28/22 18:15> Is patient prescribed a controlled substance at d/c from ED?: No Time of Disposition: 20:45 <David Fitzpatrick - Last Filed: 10/28/22 20:49> Clinical Impression: Lymphadenitis, Lymphadenopathy, Neck pain Disposition: HOME SELF-CARE Condition: Good Instructions (If sedation given, give patient instructions): Adenitis (ED) Referrals: Marialuisa Espinoza MD [Primary Care Provider] - 1-2 days
--- NOTE | 2022-10-28 20:29 | CT ---
EXAMINATION TYPE: CT soft tissue neck wo con CT DLP: 369.5 mGycm, Automated exposure control for dose reduction was used. DATE OF EXAM: 10/28/2022 8:21 PM COMPARISON: CT brain C-spine 02/02/2020. CLINICAL INDICATION:Male, 47 years old with history of pain; PHH, pain, dysphagia starting today. TECHNIQUE: Standard CT of the neck without demonstration of intravenous contrast. Limits evaluation. Axial sections with coronal and sagittal reformats were obtained. FINDINGS: Brain: Visualized portions are grossly unremarkable. Orbits: Unremarkable Sinuses: Grossly unremarkable. Suprahyoid Neck: The oropharynx, oral cavity, parapharyngeal and retropharyngeal spaces are clear and symmetric. The nasopharynx is unremarkable. Infrahyoid Neck: The larynx, hypopharynx, and supraglottic area are clear and symmetric. Parotid Glands: Unremarkable. Submandibular Glands: Unremarkable. Musculoskeletal: No acute osseous pathology. Lymph nodes: Multiple nonenlarged lymph nodes are seen along both anterior chains of the neck. Vascular structures: Unremarkable noncontrast appearance Thoracic Inlet/airway: Airway is patent. The lung apices are clear. Couple of calcified granulomas. M ediastinal calcified lymph node. Soft tissues/Thyroid: Thyroid and remainder of the soft tissues are unremarkable. Other: none. IMPRESSION No definite evidence for abscess or significant abnormality.
[2022-10-28] MEDS ORDERED: AMOXIC-POT CLAV 875MG STARTER PACK 2 TAB BTL PO STA (20:44)
[2022-10-28] MEDS ORDERED: IBUPROFEN 600 MG STARTER PACK 4 TAB BTL PO STA (20:44)
[2022-10-28 21:05] VITALS: BP 139/68; PULSE 100
== END 2022-10-28 21:48 | disposition home or self-care (01) ==
LOC: EC 16:53
DX: I88.9 Nonspecific lymphadenitis, unspecified (principal); M54.2 Cervicalgia; E11.9 Type 2 diabetes mellitus without complications; J44.9 Chronic obstructive pulmonary disease, unspecified; G40.909 Epilepsy, unspecified, not intractable, without status epilepticus; K21.9 Gastro-esophageal reflux disease without esophagitis; F41.9 Anxiety disorder, unspecified; F31.9 Bipolar disorder, unspecified; F17.200 Nicotine dependence, unspecified, uncomplicated; Z79.4 Long term (current) use of insulin; Z79.51 Long term (current) use of inhaled steroids; Z79.899 Other long term (current) drug therapy; Z88.8 Allergy status to other drugs, medicaments and biological substances; Z88.5 Allergy status to narcotic agent; Z88.2 Allergy status to sulfonamides; Z88.9 Allergy status to unspecified drugs, medicaments and biological substances
CPT/HCPCS: 70490; 87651; 99284

== ENCOUNTER 2023-08-03 17:10 | Emergency (ER) | payer MEDICARE ==
--- NOTE | 2023-08-03 17:30 | ED ---
Extremity Problem HPI - General Chief complaint: Extremity Problem,Nontraumatic Stated complaint: R buttock pain Time Seen by Provider: 08/03/23 17:23 Source: patient, RN notes reviewed Mode of arrival: ambulatory Limitations: no limitations - History of Present Illness Initial comments: This is a 48-year-old male presents to the emergency department chief complaint of right foot pain over the past 3 days. Denies any obvious injury to the, or lower extremity. States he has had a discomfort and pain in his right metatarsals that has not been alleviated with Motrin or rest. Patient is able to bear wear on his right foot with pain. He admits to a injury when he was a child at 8 years old where he had fractures of bilateral lower extremity feet an d ankles, denies previous reconstructive surgery of extremities. Denies history of gout, nausea, vomiting, fevers, parasthesias - Related Data Home Medications Medication Instructions Recorded Confirmed Mirtazapine [Remeron] 15 mg PO HS 11/23/16 01/22/21 lamoTRIgine [LaMICtal] 100 mg PO BID 03/13/17 01/22/21 OLANZapine [ZyPREXA] 10 mg PO HS 03/28/18 01/22/21 Buprenorphine-Nalox 8-2 mg Tab 1 tab SL BID 01/27/20 01/22/21 [Suboxone 8-2 mg Tab] INSULIN ASPART (NovoLOG) [NovoLOG 21 unit SQ AC-TID 07/21/20 01/22/21 (formulary)] Insulin Glargine [Lantus Vial] 15 - 30 unit SQ HS 07/21/20 01/22/21 Omeprazole 20 mg PO DAILY 07/21/20 01/22/21 Budesonide-Formot 160-4.5 Mcg 2 puff INHALATION RT-BID 07/27/20 01/22/21 [Symbicort 160-4.5 Mcg Inhaler] Bumetanide [BUMEX] 1 mg PO DAILY 11/16/20 01/22/21 Potassium Chloride [Klor-Con 10 ER] 10 meq PO DAILY 11/16/20 01/22/21 Albuterol Sulfate [Ventolin HFA] 1 - 2 puff INHALATION RT-Q6H PRN 01/22/21 01/22/21 Lactulose [Cephulac] 20 gm PO DAILY PRN 01/22/21 01/22/21 Previous Rx's Medication Instructions Recorded Amoxic-Pot Clav 875-125Mg 1 tab PO Q12HR #20 tablet 10/28/22 [Augmentin 875-125] Acetaminophen [Acetaminophen 8 hr] 650 mg PO Q8H #15 tab 08/03/23 Allergies Allergy/AdvReac Type Severity Reaction Status Date / Time codeine Allergy Swelling Verified 08/03/23 17:23 furosemide [From Lasix] Allergy Rash/Hives Verified 08/03/23 17:23 haloperidol [From Haldol] Allergy Unknown Verified 08/03/23 17:23 prochlorperazine Allergy Swelling Verified 08/03/23 17:23 Review of Systems ROS Statement: Those systems with pertinent positive or pertinent negative responses have been documented in the HPI. ROS Other: All systems not noted in ROS Statement are negative. 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 with surgery/difficulty with incision healing/past cellulitis abdomin, IDDM type II, bronchitis, R lung spontaneous pneumo with surgery, last seizure 2011, hepatitis C with interferon over 6 yrs ago, past IV drug abuse-no drugs for over one year except for one slip/on suboxone, DDD, occasional low back pain, History of Any Multi-Drug Resistant Organisms: None Reported Past Surgical History: Appendectomy, Cholecystectomy Additional Past Surgical History / Comment(s): 2018 lap/laparotomy/partial omenectomy/cystogastrectomy/lysis of adhesions, 2019 open incision hernia repair with mesh-difficulty with incision healing since, EGD, colonoscopy, R lung thorascopy/decortication, bilateral eye RK for vision correction. Past Anesthesia/Blood Transfusion Reactions: No Reported Reaction Past Psychological History: Anxiety, Bipolar, Depression Smoking Status: Current every day smoker Past Alcohol Use History: None Reported Past Drug Use History: None Reported - Past Family History Brother(s) Additional Family Medical History / Comment(s): Chronic alcoholism in 2 brothers Sister(s) Additional Family Medical History / Comment(s): Chronic alcoholism Daughter(s) Family Medical History: No Reported History Additional Family Medical History / Comment(s): One daughter healthy Son(s) Family Medical History: No Reported History Additional Family Medical History / Comment(s): One son healthy Father History Unknown: Yes Family Medical History: AICD/Pacemaker, Myocardial Infarction ([place]), Renal Disease Additional Family Medical History / Comment(s): Schizophrenia. Per patient, his father at the age of 59 from renal failure. Mother History Unknown: Yes Family Medical History: Hypertension Additional Family Medical History / Comment(s): HPV General Exam Limitations: no limitations General appearance: alert, in no apparent distress Head exam: Present: atraumatic, normocephalic, normal inspection Eye exam: Present: normal appearance, PERRL, EOMI. Absent: scleral icterus, conjunctival injection, periorbital swelling ENT exam: Present: normal exam, mucous membranes moist Neck exam: Present: normal inspection. Absent: tenderness, meningismus, lymphadenopathy Respiratory exam: Present: normal lung sounds bilaterally. Absent: respiratory distress, wheezes, rales, rhonchi, stridor Cardiovascular Exam: Present: regular rate, normal rhythm, normal heart sounds. Absent: systolic murmur, diastolic murmur, rubs, gallop, clicks GI/Abdominal exam: Present: soft, normal bowel sounds. Absent: distended, tenderness, guarding, rebound, rigid Extremities exam: Present: normal inspection, full ROM, normal capillary refill. Absent: tenderness, pedal edema, joint swelling, calf tenderness Right Foot/Toe exam: Present: normal inspection, full ROM, tenderness (over metatarsals with no evidence of erythema, ecchymosis, or dislocation, trauma). Absent: swelling, abrasion, laceration, ecchymosis, deformity, crepitus Neurovascular tendon exam: Present: no vascular compromise Back exam: Present: normal inspection Neurological exam: Present: alert, oriented X3, CN II-XII intact Psychiatric exam: Present: normal affect, normal mood Skin exam: Present: warm, dry, intact, normal color. Absent: rash Course Vital Signs 08/03/23 08/03/23 17:16 18:32 Temperature 97.6 F Pulse Rate 78 72 Respiratory 18 18 Rate Blood Pressure 116/78 115/78 O2 Sat by Pulse 95 95 Oximetry Medical Decision Making - Medical Decision Making Was pt. sent in by a medical professional or institution (, PA, STRIPPER APPRENTICE, urgent care, hospital, or skilled nursing...) When possible be specific @ -No Did you speak to anyone other than the patient for history (EMS, parent, family, police, friend...)? What history was obtained from this source @ -No Did you review nursing and triage notes (agree or disagree)? Why? @ -I reviewed and agree with nursing and triage notes Were old charts reviewed (outside hosp., previous admission, EMS record, old EKG, old radiological studies, urgent care reports/EKG's, skilled nursing records)? Report findings @ -No old charts were reviewed Differential Diagnosis (chest pain, altered mental status, abdominal pain women, abdominal pain men, vaginal bleeding, weakness, fever, dyspnea, syncope, headache, dizziness, GI bleed, back pain, seizure, CVA, palpatations, mental health, musculoskeletal)? @ -Differential Musculoskeletal Muscular strain, contusion, ligament sprain, fracture, arthritis, septic arthritis, bursitis, cellulitis, muscle spasm, nerve compression, DVT, arterial occlusion, herpes zoster, electrolyte abnormality, tumor.... This is not meant to be in all inclusive list EKG interpreted by me (3pts min.). @ -None X-rays interpreted by me (1pt min.). @ -X-ray of right foot no acute bony abnormalities, no fractures or dislocations. CT interpreted by me (1pt min.). @ -None done U/S interpreted by me (1pt. min.). @ -None done What testing was considered but not performed or refused? (CT, X-rays, U/S, labs)? Why? @ -None What meds were considered but not given or refused? Why? @ -None Did you discuss the management of the patient with other professionals (professionals i.e. , PA, STRIPPER APPRENTICE, lab, RT, psych nurse, protective services social worker, needle felt making machine operator, teacher, staff air defense officer, case management manager)? Give summary @ -No Was smoking cessation discussed for >3mins.? @ -No Was critical care preformed (if so, how long)? @ -No Were there social determinants of health that impacted care today? How? (Homelessness, low income, unemployed, alcoholism, drug addiction, transportation, low edu. Level, literacy, decrease access to med. care, half-way, rehab)? @ -No Was there de-escalation of care discussed even if they declined (Discuss DNR or withdrawal of care, Hospice)? DNR status @ -No What co-morbidities impacted this encounter? (DM, HTN, Smoking, COPD, CAD, Cancer, CVA, ARF, Chemo, Hep., AIDS, mental health diagnosis, sleep apnea, morbid obesity)? @ -None Was patient admitted / discharged? Hospital course, mention meds given and route, prescriptions, significant lab abnormalities, going to OR and other pertinent info. @ -Discharge. 48-year-old male complaining of right foot pain. On physical examination no evidence of trauma, no signs of ecchymosis, erythema, or edema or warmth to the touch. X-ray of right foot with no acute bony abnormalities, no fractures or dislocations noted. Additional laboratory testing was not ordered at this time due to patient's current symptoms. Right foot pain Overt signs of infection or potential of gout. Due to patient's history of injury to bilateral lower extremities when he was younger, discussed that symptoms are likely secondary to arthritis. Patient prescribed Tylenol as needed for pain relief. Patient instructed to follow-up with PCP in next 1 to 2 weeks. I discussed this case with Dr. Fitzpatrick. Undiagnosed new problem with uncertain prognosis? @ -No Drug Therapy requiring intensive monitoring for toxicity (Heparin, Nitro, Insulin, Cardizem)? @ -No Were any procedures done? @ -No Diagnosis/symptom? @ -foot pain Acute, or Chronic, or Acute on Chronic? @ -acute Uncomplicated (without systemic symptoms) or Complicated (systemic symptoms)? @ -uncomplicated Side effects of treatment? @ -No Exacerbation, Progression, or Severe Exacerbation? @ -No Poses a threat to life or bodily function? How? (Chest pain, [place], [place], pneumonia, PE, COPD, DKA, ARF, appy, cholecystitis, CVA, Diverticulitis, Homicidal, Suicidal, threat to staff... and all critical care pts) @ -No Disposition Clinical Impression: Foot pain, right Narrative: Please return to the Emergency Department if symptoms worsen or any other concerns. Disposition: HOME SELF-CARE Condition: Good Instructions (If sedation given, give patient instructions): Arthritis (ED) Prescriptions: Acetaminophen [Acetaminophen 8 hr] 650 mg PO Q8H #15 tab Is patient prescribed a controlled substance at d/c from ED?: No Referrals: Marialuisa Espinoza MD [Primary Care Provider] - 1-2 days Time of Disposition: 18:21
[2023-08-03 17:42] VITALS: RESP 18; TEMP 97.6
--- NOTE | 2023-08-03 17:54 | XR ---
EXAMINATION TYPE: XR foot complete RT DATE OF EXAM: 08/03/2023 CLINICAL HISTORY: pain TECHNIQUE: Frontal, lateral and oblique images of the right foot are obtained. COMPARISON: None. FINDINGS: There is no acute fracture/dislocation evident. The joint spaces appear within normal hawk its. The overlying soft tissue appears unremarkable. IMPRESSION: There is no acute fracture or dislocation. ICD 10 NO FRACTURE, INITIAL EVALUATION
[2023-08-03] MEDS: ACETAMINOPHEN TAB 500 MG TAB PO STA (18:14)
[2023-08-03 18:52] VITALS: BP 115/78; PULSE 72
== END 2023-08-03 18:33 | disposition home or self-care (01) ==
LOC: EC 17:10
DX: M79.671 Pain in right foot (principal); F17.200 Nicotine dependence, unspecified, uncomplicated; Z88.5 Allergy status to narcotic agent; Z88.8 Allergy status to other drugs, medicaments and biological substances
CPT/HCPCS: 99283

== ENCOUNTER 2023-09-25 14:36 | Observation (INO) | payer MEDICARE ==
[2023-09-25 15:29] LABS: Basophils # (A) 0.1 k/uL (0-0.2); Basophils % (A) 1 %; Eosinophils # (A) 0.4 k/uL (0-0.7); Eosinophils % (A) 5 %; HCT 51.2 % (39.0-53.0); HGB 16.5 gm/dL (13.0-17.5); Lymphocytes # (A) 1.8 k/uL (1.0-4.8); Lymphocytes % (A) 19 %; MCH 27.5 pg (25.0-35.0); MCHC 32.3 g/dL (31.0-37.0); MCV 85.1 fL (80.0-100.0); Mean Platelet Volume 10.5; Monocytes # (A) 0.4 k/uL (0-1.0); Monocytes % (A) 5 %; Neutrophils # (A) 6.9 k/uL (1.3-7.7); Neutrophils % (A) 70 %; Platelet Count 126 k/uL (150-450); RBC 6.02 m/uL (4.30-5.90); RDW 13.1 % (11.5-15.5); WBC 9.8 k/uL (3.8-10.6)
--- NOTE | 2023-09-25 15:38 | ED ---
General Adult HPI - General Chief complaint: Abdominal Pain Stated complaint: Abd pain Time Seen by Provider: 09/25/23 14:54 Source: patient, RN notes reviewed, old records reviewed Mode of arrival: ambulatory Limitations: no limitations - History of Present Illness Initial comments: Patient is a 48-year-old male present to the emergency department with concerns for abdominal discomfort. Onset of symptoms was around 2 days ago. Symptoms are similar to previous pancreatitis. Patient states he has had this a few times in the past. No nausea or vomiting. Patient is tolerating oral intake. No constipation or diarrhea. Patient denies history of significant alcohol use. - Related Data Home Medications Medication Instructions Recorded Confirmed Mirtazapine [Remeron] 15 mg PO HS 11/23/16 01/22/21 lamoTRIgine [LaMICtal] 100 mg PO BID 03/13/17 01/22/21 OLANZapine [ZyPREXA] 10 mg PO HS 03/28/18 01/22/21 Buprenorphine-Nalox 8-2 mg Tab 1 tab SL BID 01/27/20 01/22/21 [Suboxone 8-2 mg Tab] INSULIN ASPART (NovoLOG) [NovoLOG 21 unit SQ AC-TID 07/21/20 01/22/21 (formulary)] Insulin Glargine [Lantus Vial] 15 - 30 unit SQ HS 07/21/20 01/22/21 Omeprazole 20 mg PO DAILY 07/21/20 01/22/21 Budesonide-Formot 160-4.5 Mcg 2 puff INHALATION RT-BID 07/27/20 01/22/21 [Symbicort 160-4.5 Mcg Inhaler] Bumetanide [BUMEX] 1 mg PO DAILY 11/16/20 01/22/21 Potassium Chloride [Klor-Con 10 ER] 10 meq PO DAILY 11/16/20 01/22/21 Albuterol Sulfate [Ventolin HFA] 1 - 2 puff INHALATION RT-Q6H PRN 01/22/21 01/22/21 Lactulose [Cephulac] 20 gm PO DAILY PRN 01/22/21 01/22/21 Previous Rx's Medication Instructions Recorded Amoxic-Pot Clav 875-125Mg 1 tab PO Q12HR #20 tablet 10/28/22 [Augmentin 875-125] Acetaminophen [Acetaminophen 8 hr] 650 mg PO Q8H #15 tab 08/03/23 Allergies Allergy/AdvReac Type Severity Reaction Status Date / Time codeine Allergy Swelling Verified 09/25/23 14:45 furosemide [From Lasix] Allergy Rash/Hives Verified 09/25/23 14:45 haloperidol [From Haldol] Allergy Unknown Verified 09/25/23 14:45 prochlorperazine Allergy Swelling Verified 09/25/23 14:45 Review of Systems ROS Statement: Those systems with pertinent positive or pertinent negative responses have been documented in the HPI. ROS Other: All systems not noted in ROS Statement are negative. Constitutional: Denies: fever Eyes: Denies: eye pain Gastrointestinal: Reports: as per HPI, abdominal pain. Denies: nausea, vomiting Musculoskeletal: Denies: back pain 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 with surgery/difficulty with incision healing/past cellulitis abdomin, IDDM type II, bronchitis, R lung spontaneous pneumo with surgery, last seizure 2011, hepatitis C with interferon over 6 yrs ago, past IV drug abuse-no drugs for over one year except for one slip/on suboxone, DDD, occasional low back pain, History of Any Multi-Drug Resistant Organisms: None Reported Past Surgical History: Appendectomy, Cholecystectomy Additional Past Surgical History / Comment(s): 2018 lap/laparotomy/partial omenectomy/cystogastrectomy/lysis of adhesions, 2019 open incision hernia repair with mesh-difficulty with incision healing since, EGD, colonoscopy, R lung thorascopy/decortication, bilateral eye RK for vision correction. Past Anesthesia/Blood Transfusion Reactions: No Reported Reaction Past Psychological History: Anxiety, Bipolar, Depression Smoking Status: Current every day smoker Past Alcohol Use History: None Reported Past Drug Use History: None Reported - Past Family History Brother(s) Additional Family Medical History / Comment(s): Chronic alcoholism in 2 brothers Sister(s) Additional Family Medical History / Comment(s): Chronic alcoholism Daughter(s) Family Medical History: No Reported History Additional Family Medical History / Comment(s): One daughter healthy Son(s) Family Medical History: No Reported History Additional Family Medical History / Comment(s): One son healthy Father History Unknown: Yes Family Medical History: AICD/Pacemaker, Myocardial Infarction ([place]), Renal Disease Additional Family Medical History / Comment(s): Schizophrenia. Per patient, his father at the age of 59 from renal failure. Mother History Unknown: Yes Family Medical History: Hypertension Additional Family Medical History / Comment(s): HPV General Exam Limitations: no limitations General appearance: alert, in no apparent distress Head exam: Present: normocephalic Eye exam: Present: normal appearance Neck exam: Present: normal inspection Respiratory exam: Present: normal lung sounds bilaterally Cardiovascular Exam: Present: regular rate, normal rhythm GI/Abdominal exam: Present: soft, tenderness (Mild to moderate left-sided abdominal tenderness), normal bowel sounds. Absent: distended, guarding, rebound, rigid, pulsatile mass Extremities exam: Present: normal inspection Neurological exam: Present: alert Psychiatric exam: Present: normal affect, normal mood Skin exam: Present: normal color Course Vital Signs 09/25/23 09/25/23 14:42 17:45 Temperature 99.5 F Pulse Rate 88 90 Respiratory 20 18 Rate Blood Pressure 131/85 131/84 O2 Sat by Pulse 95 99 Oximetry Medical Decision Making - Medical Decision Making Was pt. sent in by a medical professional or institution (, PA, TECHNICAL SYSTEMS ARCHITECT, urgent care, hospital, or fpc...) When possible be specific @ -No Did you speak to anyone other than the patient for history (EMS, parent, family, police, friend...)? What history was obtained from this source @ -No Did you review nursing and triage notes (agree or disagree)? Why? @ -I reviewed and agree with nursing and triage notes Were old charts reviewed (outside hosp., previous admission, EMS record, old EKG, old radiological studies, urgent care reports/EKG's, fpc records)? Report findings @ -Previous visits reviewed including history of pancreatitis Differential Diagnosis (chest pain, altered mental status, abdominal pain women, abdominal pain men, vaginal bleeding, weakness, fever, dyspnea, syncope, headache, dizziness, GI bleed, back pain, seizure, CVA, palpatations, mental health, musculoskeletal)? @ -Differential Abdominal Pain Men: Appendicitis, cholecystitis, diverticulosis, ischemic bowel, pancreatitis, hepatitis, UTI, gastroenteritis, AAA, incarcerated hernia, bowel obstruction, constipation, inflammatory bowel, hepatitis, peptic ulcer disease, splenic infarction, perforated viscus, testicular torsion, this is not meant to be an all-inclusive list EKG interpreted by me (3pts min.). @ -As above X-rays interpreted by me (1pt min.). @ -None done CT interpreted by me (1pt min.). @ -CT scan shows some haziness near the pancreas U/S interpreted by me (1pt. min.). @ -None done What testing was considered but not performed or refused? (CT, X-rays, U/S, labs)? Why? @ -None What meds were considered but not given or refused? Why? @ -None Did you discuss the management of the patient with other professionals (professionals i.e. , PA, TECHNICAL SYSTEMS ARCHITECT, lab, RT, psych nurse, psychotherapist social worker, edging machine catcher, teacher, access control officer, immigration case worker)? Give summary @ -Case discussed with Dr. Espinoza who will admit his patient Was smoking cessation discussed for >3mins.? @ -No Was critical care preformed (if so, how long)? @ -No Were there social determinants of health that impacted care today? How? (Homelessness, low income, unemployed, alcoholism, drug addiction, transportation, low edu. Level, literacy, decrease access to med. care, long term, rehab)? @ -No Was there de-escalation of care discussed even if they declined (Discuss DNR or withdrawal of care, Hospice)? DNR status @ -No What co-morbidities impacted this encounter? (DM, HTN, Smoking, COPD, CAD, Cancer, CVA, ARF, Chemo, Hep., AIDS, mental health diagnosis, sleep apnea, mo rbid obesity)? @ -None Was patient admitted / discharged? Hospital course, mention meds given and r oute, prescriptions, significant lab abnormalities, going to OR and other pertinent info. @ -Patient reevaluated and still having discomfort. Secondary to concerns on CT read patient will be admitted with surgical consult. [place] orders written. Undiagnosed new problem with uncertain prognosis? @ -No Drug Therapy requiring intensive monitoring for toxicity (Heparin, Nitro, Insulin, Cardizem)? @ -No Were any procedures done? @ -No Diagnosis/symptom? @ -Abdominal pain Acute, or Chronic, or Acute on Chronic? @ -Acute Uncomplicated (without systemic symptoms) or Complicated (systemic symptoms)? @ -Default Side effects of treatment? @ -No Exacerbation, Progression, or Severe Exacerbation? @ -No Poses a threat to life or bodily function? How? (Chest pain, [place], [place], pneumonia, PE, COPD, DKA, ARF, appy, cholecystitis, CVA, Diverticulitis, Homicidal, Suicidal, threat to staff... and all critical care pts) @ -No - Lab Data Result diagrams: 09/25/23 15:00 09/25/23 15:45 Lab Results 09/25/23 09/25/23 09/25/23 Range/Units 15:00 15:45 15:45 WBC 9.8 (3.8-10.6) k/uL RBC 6.02 H (4.30-5.90) m/uL Hgb 16.5 (13.0-17.5) gm/dL Hct 51.2 (39.0-53.0) % MCV 85.1 (80.0-100.0) fL MCH 27.5 (25.0-35.0) pg MCHC 32.3 (31.0-37.0) g/dL RDW 13.1 (11.5-15.5) % Plt Count 126 L (150-450) k/uL MPV 10.5 Neutrophils % 70 % Lymphocytes % 19 % Monocytes % 5 % Eosinophils % 5 % Basophils % 1 % Neutrophils # 6.9 (1.3-7.7) k/uL Lymphocytes # 1.8 (1.0-4.8) k/uL Monocytes # 0.4 (0-1.0) k/uL Eosinophils # 0.4 (0-0.7) k/uL Basophils # 0.1 (0-0.2) k/uL Sodium 136 L (137-145) mmol/L Potassium 4.7 (3.5-5.1) mmol/L Chloride 107 (98-107) mmol/L Carbon Dioxide 21 L (22-30) mmol/L Anion Gap 8 mmol/L BUN 12 (9-20) mg/dL Creatinine 0.61 L (0.66-1.25) mg/dL Est GFR (CKD-EPI)AfAm >90 (>60 ml/min/1.73 sqM) Est GFR (CKD-EPI)NonAf >90 (>60 ml/min/1.73 sqM) Glucose 133 H (74-99) mg/dL Calcium 9.4 (8.4-10.2) mg/dL Total Bilirubin 0.8 (0.2-1.3) mg/dL AST 43 (17-59) U/L ALT 47 (4-49) U/L Alkaline Phosphatase 142 H (38-126) U/L Total Protein 7.5 (6.3-8.2) g/dL Albumin 4.7 (3.5-5.0) g/dL Amylase 56 (30-110) U/L Lipase 88 (23-300) U/L Urine Color Colorless Urine Appearance Clear (Clear) Urine pH 6.0 (5.0-8.0) Ur Specific [place] 1.022 (1.001-1.035) Urine Protein Negative (Negative) Urine Glucose (UA) 4+ H (Negative) Urine Ketones 1+ H (Negative) Urine Blood Negative (Negative) Urine Nitrite Negative (Negative) Urine Bilirubin Negative (Negative) Urine Urobilinogen <2.0 (<2.0) mg/dL Ur Leukocyte Esterase Negative (Negative) Disposition Clinical Impression: Abdominal pain Disposition: ADMITTED IP TO THIS HOSP Is patient prescribed a controlled substance at d/c from ED?: No Referrals: Marialuisa Espinoza MD [Primary Care Provider] - 1-2 days Time of Disposition: 18:46
[2023-09-25 16:08] LABS: Appearance,Urine Clear (Clear); Bilirubin,Urine Negative (Negative); Blood,Urine Negative (Negative); Color,Urine Colorless; Glucose,Urine (UA) 4+ (Negative); Ketones,Urine 1+ (Negative); Leukocyte Esterase,Urine Negative (Negative); Nitrite,Urine Negative (Negative); Protein,Urine Negative (Negative); Specific Gravity,Urine 1.022 (1.001-1.035); Urobilinogen,Urine <2.0 mg/dL (<2.0)
[2023-09-25 16:16] LABS: ALT 47 U/L (4-49); AST 43 U/L (17-59); African American GFR (CKD) >90 (>60 ml/min/1.73 sqM); Albumin 4.7 g/dL (3.5-5.0); Alkaline Phosphatase 142 U/L (38-126); Amylase 56 U/L (30-110); Anion Gap 8 mmol/L; Blood Urea Nitrogen 12 mg/dL (9-20); Calcium 9.4 mg/dL (8.4-10.2); Carbon Dioxide 21 mmol/L (22-30); Chloride 107 mmol/L (98-107); Glucose 133 mg/dL (74-99); Lipase 88 U/L (23-300); Non-African American GFR(CKD) >90 (>60 ml/min/1.73 sqM); Sodium 136 mmol/L (137-145); Total Bilirubin 0.8 mg/dL (0.2-1.3); Total Protein 7.5 g/dL (6.3-8.2)
[2023-09-25 16:18] LABS: Potassium 4.7 mmol/L (3.5-5.1)
[2023-09-25] MEDS: ACETAMINOPHEN IV (For NPO) 1,000 MG in EMPTY BAG 1 BAG IVPB STA (16:49)
[2023-09-25] MEDS: SODIUM CHLORIDE 0.9% 1,000 ML IV STA (16:50)
[2023-09-25] MEDS: PANTOPRAZOLE 40 MG/10 ML VIAL IVP STA (16:50)
--- NOTE | 2023-09-25 16:59 | CT ---
EXAMINATION TYPE: CT abdomen pelvis w con DATE OF EXAM: 09/25/2023 COMPARISON: 01/22/2021 INDICATION: PANCREATITIS DLP: 1662 mGycm, Automated exposure control for dose reduction was used. CONTRAST: 100 ml mL of Isovue 300. Study performed without Oral Contrast TECHNIQUE: Axial images were obtained from above the diaphragm to the pubic rami in the axial plane a t 5 mm thick sections. Reconstructed images are reviewed on the computer in the coronal plane. FINDINGS: Limited CT sections are obtained the lung bases. Large benign calcifications within the anterior rig ht middle lobe near the diaphragm.. CT ABDOMEN: Liver: Mild fatty infiltration may be present. No discrete mass is evident. Spleen: Spleen is enlarged with multiple tiny calcified granuloma. May be some small splenules adjace nt to the spleen. Pancreas: There may be some fluid adjacent to the spleen measuring 1.5 cm superior to the pancreas. T his is adjacent to the stomach lesser curvature. This is smaller than the comparison of 2020. Pseudoc yst formation is favored within the differential. Adrenal glands: The adrenal glands are normal. Gallbladder: Normal Kidneys: No masses are evident. No hydronephrosis is present. No cysts are present. Delayed images were obtained through the kidneys, which remain unremarkable. Aorta: Mild Vascular calcification is within the aorta. Inferior vena cava: Normal. CT PELVIS: Loops of bowel within the abdomen and pelvis are normal. This study is performed without oral con trast limiting evaluation. Appendix: Not identified. No dilated tubular structure or inflammatory changes. Urinary bladder: Normal. Genitourinary structures: Prostate appears normal. Osseous structures: No suspicious lytic or sclerotic lesions. IMPRESSION: 1. There is some fluid adjacent to the pancreas and lesser curvature the stomach which could be rela buddy to Pseudocyst formation should be considered. Finding has improved from a 2020 comparison. Acute pancreatitis could be considered Abscess and stomach ulcer should be considered within the different ial.
[2023-09-25] MEDS: HYDROmorphone 1 MG/ML 1 ML SYRINGE IVP STA (18:18)
[2023-09-25] MEDS ORDERED: NALOXONE 0.4 MG/ML 1 ML VIAL IV PRN (18:46)
[2023-09-25] MEDS: SODIUM CHLORIDE 0.9% 1,000 ML IV SCH (19:17)
[2023-09-25] MEDS ORDERED: NON FORMULARY DRUG (Omeprazole [Omeprazole] 20 MG Capsule.Dr) PO SCH (21:00)
[2023-09-25 21:10] LABS: Glucose,Whole Blood 119 mg/dL (70-110)
[2023-09-25] MEDS: lamoTRIgine 100 MG TAB PO SCH (22:10)
[2023-09-25] MEDS: OLANZapine 10 MG TAB PO SCH (22:10)
[2023-09-25] MEDS: MIRTAZAPINE 15 MG TAB PO SCH (22:10)
[2023-09-25] MEDS: ERGOCALCIFEROL 1,250 MCG (50,000 IU) CAPSULE PO SCH (22:11)
[2023-09-25] MEDS: MELATONIN 3 MG TABLET PO SCH (22:11)
[2023-09-25] MEDS: HYDROmorphone 1 MG/ML 1 ML SYRINGE IVP PRN (22:20)
[2023-09-25] MEDS: INSULIN DETEMIR (LEVEMIR) 100 UNIT/ML SYR SQ SCH (22:24)
[2023-09-26] MEDS: KETOROLAC 15 MG/ML 1 ML VIAL IVP STA (04:38)
[2023-09-26] MEDS: ONDANSETRON 4 MG/2 ML VIAL IVP PRN (04:39)
[2023-09-26] MEDS: LEVOTHYROXINE 25 MCG TAB PO SCH (04:39)
[2023-09-26 06:02] LABS: Glucose,Whole Blood 113 mg/dL (70-110)
[2023-09-26] MEDS: PANTOPRAZOLE 40 MG/10 ML VIAL IV SCH (08:27)
[2023-09-26 08:35] LABS: Glucose,Whole Blood 102 mg/dL (70-110)
[2023-09-26] MEDS: INSULIN ASPART (NovoLOG) 100 UNIT/ML VIAL SQ SCH (09:04)
[2023-09-26 09:18] LABS: Basophils # (A) 0.04 X 10*3/uL (0.00-0.10); Basophils % (A) 0.5 %; Eosinophils # (A) 0.27 X 10*3/uL (0.04-0.35); Eosinophils % (A) 3.7 %; HCT 43.5 % (39.6-50.0); HGB 14.2 g/dL (13.0-17.0); Lymphocytes # (A) 2.01 X 10*3/uL (0.90-5.00); Lymphocytes % (A) 27.3 %; MCH 27.8 pg (27.0-32.0); MCHC 32.6 g/dL (32.0-37.0); MCV 85.1 FL (80.0-97.0); Mean Platelet Volume 11.8 FL (9.5-12.2); Monocytes # (A) 0.58 X 10*3/uL (0.20-1.00); Monocytes % (A) 7.9 %; NRBC Per 100 WBC 0 X 10*3/uL (0.00-0.01); Neutrophils # (A) 4.42 X 10*3/uL (1.80-7.70); Neutrophils % (A) 60.1 %; Platelet Count 109 X 10*3/uL (140-440); RBC 5.11 X 10*6/uL (4.40-5.60); RDW 12.9 % (11.5-14.5); WBC 7.36 X 10*3/uL (4.50-10.00)
[2023-09-26 09:50] LABS: ALT 32 U/L (10-49); AST 25 U/L (14-35); Albumin/Globulin Ratio 2.35 Ratio (1.60-3.17); Alkaline Phosphatase 123 U/L (41-126); Amylase 50 U/L (23-121); Blood Urea Nitrogen 10.5 mg/dL (9.0-27.0); Calcium 8.9 mg/dL (8.7-10.3); Chloride 107 mmol/L (96-109); Globulin 1.7 g/dL (1.6-3.3); Glucose 124 mg/dL (70-110); Lipase 28 U/L (14-60); Potassium 3.7 mmol/L (3.5-5.5); Sodium 140 mmol/L (135-145); Total Bilirubin 0.4 mg/dL (0.3-1.2); Total Protein 5.7 g/dL (6.2-8.2)
--- NOTE | 2023-09-26 10:29 | P.HPIM ---
History of Present Illness H&P Date: 09/25/23 Juan Ralph, is a 48-year-old male who presented to [facility] emergency room with a chief complaint of abdominal pain, patient describes a severe pain in the epigastric and left upper quadrant area, that started 2 days prior to this admission. He was evaluated in the emergency room vital examination on presentation revealed a temperature of 99.5 pulse 88 respiration 20 blood pressure 131/85 pulse ox 95% on room air Laboratory data revealed a white blood count of 9.8 hemoglobin 16.5 platelet count 126 sodium 136 potassium 4.7 chloride 107 CO2 21 BUN 12 creatinine 0.61 AST 43 ALT 47 alkaline phosphatase 142 amylase 56 lipase 88 Testing in the emergency room revealed CT scan of the abdomen was done in the emergency room and revealed some fluid adjacent to the pancreas and lesser curvature of the stomach which could be related to pseudocyst formation, acute pancreatitis could be considered abscess and stomach ulcer should be considered within the differential Patient was admitted to medical floor for further evaluation and treatment Past medical history is significant for history of asthma, history of COPD, history of diabetes mellitus, history of gastroesophageal reflux disease, history of seizure disorder, history of chronic pancreatitis with history of pancreatic pseudocyst, history of insulin-dependent diabetes mellitus, history of seizure disorder, history of hepatitis C with previous history of interferon treatment, history of IV drug abuse, currently maintained on Suboxone, history of degenerative disc disease with chronic low back pain On review of systems patient is alert and oriented x 3 in no apparent distress, he has a low-grade fever no chills no headache no dizziness no chest pain no shortness of breath no cough he has severe abdominal pain with mild nausea no vomiting no diarrhea no blood in the stools no burning with urination no freq uency or urgency and no hematuria. 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 with surgery/difficulty with incision healing/past cellulitis abdomin, IDDM type II, bronchitis, R lung spontaneous pneumo with surgery, last seizure 2011, hepatitis C with interferon over 6 yrs ago, past IV drug abuse-no drugs for over one year except for one slip/on suboxone, DDD, occasional low back pain, History of Any Multi-Drug Resistant Organisms: None Reported Past Surgical History: Appendectomy, Cholecystectomy Additional Past Surgical History / Comment(s): 2018 lap/laparotomy/partial omenectomy/cystogastrectomy/lysis of adhesions, 2019 open incision hernia repair with mesh-difficulty with incision healing since, EGD, colonoscopy, R lung thorascopy/decortication, bilateral eye RK for vision correction. Past Anesthesia/Blood Transfusion Reactions: No Reported Reaction Past Psychological History: Anxiety, Bipolar, Depression Smoking Status: Current every day smoker Past Alcohol Use History: None Reported Past Drug Use History: None Reported - Past Family History Brother(s) Additional Family Medical History / Comment(s): Chronic alcoholism in 2 brothers Sister(s) Additional Family Medical History / Comment(s): Chronic alcoholism Daughter(s) Family Medical History: No Reported History Additional Family Medical History / Comment(s): One daughter healthy Son(s) Family Medical History: No Reported History Additional Family Medical History / Comment(s): One son healthy Father History Unknown: Yes Family Medical History: AICD/Pacemaker, Myocardial Infarction ([place]), Renal Disease Additional Family Medical History / Comment(s): Schizophrenia. Per patient, his father at the age of 59 from renal failure. Mother History Unknown: Yes Family Medical History: Hypertension Additional Family Medical History / Comment(s): HPV Medications and Allergies Home Medications Medication Instructions Recorded Confirmed Type Mirtazapine [Remeron] 15 mg PO HS 11/23/16 09/25/23 History lamoTRIgine [LaMICtal] 100 mg PO BID 03/13/17 09/25/23 History OLANZapine [ZyPREXA] 10 mg PO HS 03/28/18 09/25/23 History Buprenorphine-Nalox 8-2 mg Tab 1 tab SL BID 01/27/20 09/25/23 History [Suboxone 8-2 mg Tab] Omeprazole 20 mg PO BID 07/21/20 09/25/23 History Ergocalciferol (Vitamin D2) 1,250 mcg PO SA 09/25/23 09/25/23 History [Drisdol (50,000 Iu)] Insulin Aspart [NovoLOG Flexpen] 10 units SQ AC-TID 09/25/23 09/25/23 History Insulin Glargine,Hum.rec.anlog 15 units SQ HS 09/25/23 09/25/23 History [Lantus Solostar Pen] Levothyroxine Sodium [Synthroid] 25 mcg PO DAILY 09/25/23 09/25/23 History Phentermine HCl [Adipex-P] 37.5 mg PO DAILY 09/25/23 09/25/23 History Semaglutide [Ozempic] 1 mg SQ FR 09/25/23 09/25/23 History Allergies Allergy/AdvReac Type Severity Reaction Status Date / Time codeine Allergy Swelling Verified 09/25/23 19:47 furosemide [From Lasix] Allergy Rash/Hives Verified 09/25/23 19:47 haloperidol [From Haldol] Allergy Unknown Verified 09/25/23 19:47 prochlorperazine Allergy Swelling Verified 09/25/23 19:47 Physical Exam Vitals: Vital Signs Temp Pulse Resp BP Pulse Ox 09/25/23 20:58 89 18 126/79 99 09/25/23 17:45 90 18 131/84 99 09/25/23 14:42 99.5 F 88 20 131/85 95 Intake and Output 09/25/23 09/25/23 09/25/23 06:59 14:59 22:59 Other: Weight 114.305 kg In general patient is alert and oriented x 3 in no distress HEENT head normocephalic and atraumatic Neck is supple no JVD no goiter no lymphadenopathy no carotid bruit Chest examination is clear to auscultation no crackles no wheezing Cardiac exam reveals regular heart sounds S1 and S2 no gallops no murmurs Abdomen is soft nontender no organomegaly with normal bowel sounds Extremity exam reveals no edema no cyanosis or clubbing Neurological examination reveals no gross focal deficits Results CBC & Chem 7: 09/26/23 05:37 09/26/23 05:37 Labs: Abnormal Lab Results - Last 24 Hours (Table) 09/25/23 09/25/23 09/25/23 Range/Units 15:00 15:45 15:45 RBC 6.02 H (4.30-5.90) m/uL Plt Count 126 L (150-450) k/uL Sodium 136 L (137-145) mmol/L Carbon Dioxide 21 L (22-30) mmol/L Creatinine 0.61 L (0.66-1.25) mg/dL Glucose 133 H (74-99) mg/dL Alkaline Phosphatase 142 H (38-126) U/L Urine Glucose (UA) 4+ H (Negative) Urine Ketones 1+ H (Negative) Assessment and Plan Plan: Abdominal pain, with CT scan of the abdomen revealing evidence of chronic pancreatitis and pancreatic pseudocyst Previous history of recurrent acute pancreatitis, history of chronic pancr eatitis with history of pancreatic pseudocyst Underlying history of insulin-dependent diabetes mellitus History of asthma History of COPD History of seizure disorder Previous history of hepatitis C History of degenerative disc disease with chronic back pain History of IV drug abuse currently maintained on Suboxone At this time patient is admitted to medical floor He is kept n.p.o. Home medications reviewed and reordered Consultation for gastroenterology initiated Will follow closely.
--- NOTE | 2023-09-26 10:32 | P.PN ---
Subjective Progress Note Date: 09/26/23 Juan Ralph, is a 48-year-old male who presented to [facility] emergency room with a chief complaint of abdominal pain, patient describes a severe pain in the epigastric and left upper quadrant area, that started 2 days prior to this admission. He was evaluated in the emergency room vital examination on presentation revealed a temperature of 99.5 pulse 88 respiration 20 blood pressure 131/85 pulse ox 95% on room air Laboratory data revealed a white blood count of 9.8 hemoglobin 16.5 platelet count 126 sodium 136 potassium 4.7 chloride 107 CO2 21 BUN 12 creatinine 0.61 AST 43 ALT 47 alkaline phosphatase 142 amylase 56 lipase 88 Testing in the emergency room revealed CT scan of the abdomen was done in the emergency room and revealed some fluid adjacent to the pancreas and lesser curvature of the stomach which could be related to pseudocyst formation, acute pancreatitis could be considered abscess and stomach ulcer should be considered within the differential Patient was admitted to medical floor for further evaluation and treatment Past medical history is significant for history of asthma, history of COPD, history of diabetes mellitus, history of gastroesophageal reflux disease, history of seizure disorder, history of chronic pancreatitis with history of pancreatic pseudocyst, history of insulin-dependent diabetes mellitus, history of seizure disorder, history of hepatitis C with previous history of interferon treatment, history of IV drug abuse, currently maintained on Suboxone, history of degenerative disc disease with chronic low back pain On review of systems patient is alert and oriented x 3 in no apparent distress, he has a low-grade fever no chills no headache no dizziness no chest pain no shortness of breath no cough he has severe abdominal pain with mild nausea no vomiting no diarrhea no blood in the stools no burning with urination no frequency or urgency and no hematuria. On 09/26/2023 patient was seen and examined on the medical floor he is alert and oriented x 3 in no apparent distress he is still complaining of left upper quadrant abdominal pain otherwise he denies any complaints there is no fever or chills no headache or dizziness no chest pain no shortness of breath no cough no nausea or vomiting no diarrhea no blood in the stools and no urinary symptoms, he remains n.p.o., he is receiving IV pain medications, awaiting GI and surgery input will follow closely Objective - Vital Signs Vital signs: Vital Signs Temp 98.0 F 09/26/23 07:00 Pulse 70 09/26/23 07:00 Resp 15 09/26/23 07:00 BP 110/66 09/26/23 07:00 Pulse Ox 95 09/26/23 07:00 FiO2 Intake & Output 09/25/23 09/26/23 09/26/23 18:59 06:59 18:59 Weight 114.305 kg 114.305 kg Other: # Voids 2 - Exam In general patient is alert and oriented x 3 in no distress HEENT head normocephalic and atraumatic Neck is supple no JVD no goiter no lymphadenopathy no carotid bruit Chest examination is clear to auscultation no crackles no wheezing Cardiac exam reveals regular heart sounds S1 and S2 no gallops no murmurs Abdomen is soft with tenderness in the epigastric and left upper quadrant area no rigidity no rebound no organomegaly with normal bowel sounds Extremity exam reveals no edema no cyanosis or clubbing Neurological examination reveals no gross focal deficits - Labs CBC & Chem 7: 09/26/23 05:37 09/26/23 05:37 Labs: Abnormal Lab Results - Last 24 Hours (Table) 09/25/23 09/25/23 09/25/23 Range/Units 15:00 15:45 15:45 RBC 6.02 H (4.30-5.90) m/uL Plt Count 126 L (150-450) k/uL Sodium 136 L (137-145) mmol/L Carbon Dioxide 21 L (22-30) mmol/L Creatinine 0.61 L (0.66-1.25) mg/dL Glucose 133 H (74-99) mg/dL POC Glucose (mg/dL) (70-110) mg/dL Alkaline Phosphatase 142 H (38-126) U/L Total Protein (6.2-8.2) g/dL Urine Glucose (UA) 4+ H (Negative) Urine Ketones 1+ H (Negative) 09/25/23 09/26/23 09/26/23 Range/Units 21:09 05:37 05:37 RBC (4.30-5.90) m/uL Plt Count 109 L (150-450) k/uL Sodium (137-145) mmol/L Carbon Dioxide (22-30) mmol/L Creatinine (0.66-1.25) mg/dL Glucose 124 H (74-99) mg/dL POC Glucose (mg/dL) 119 H (70-110) mg/dL Alkaline Phosphatase (38-126) U/L Total Protein 5.7 L (6.2-8.2) g/dL Urine Glucose (UA) (Negative) Urine Ketones (Negative) 09/26/23 Range/Units 06:01 RBC (4.30-5.90) m/uL Plt Count (150-450) k/uL Sodium (137-145) mmol/L Carbon Dioxide (22-30) mmol/L Creatinine (0.66-1.25) mg/dL Glucose (74-99) mg/dL POC Glucose (mg/dL) 113 H (70-110) mg/dL Alkaline Phosphatase (38-126) U/L Total Protein (6.2-8.2) g/dL Urine Glucose (UA) (Negative) Urine Ketones (Negative) Assessment and Plan Plan: Abdominal pain, with CT scan of the abdomen revealing evidence of chronic pancreatitis and pancreatic pseudocyst Previous history of recurrent acute pancreatitis, history of chronic pancreatitis with history of pancreatic pseudocyst Underlying history of insulin-dependent diabetes mellitus History of asthma History of COPD History of seizure disorder Previous history of hepatitis C History of degenerative disc disease with chronic back pain History of IV drug abuse currently maintained on Suboxone At this time patient is admitted to medical floor He is kept n.p.o. Home medications reviewed and reordered Consultation for gastroenterology initiated Will follow closely.
[2023-09-26 12:06] LABS: Glucose,Whole Blood 115 mg/dL (70-110)
--- NOTE | 2023-09-26 13:11 | P.GSCN ---
History of Present Illness Consult date: 09/26/23 History of present illness: patient states he has complaints of left upper quadrant pain. Patient states the pain is similar to his previous history of pancreas pseudocyst. On exam vital signs appear stable. Abdomen soft. There is a large midline laparotomy scar which is well-healed. History of pancreas pseudocyst. Abdominal pain. Patient will be observed. 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 with surgery/difficulty with incision healing/past cellulitis abdomin, IDDM type II, bronchitis, R lung spontaneous pneumo with surgery, last seizure 2011, hepatitis C with interferon over 6 yrs ago, past IV drug abuse-no drugs for over one year except for one slip/on suboxone, DDD, occasional low back pain, History of Any Multi-Drug Resistant Organisms: None Reported Past Surgical History: Appendectomy, Cholecystectomy Additional Past Surgical History / Comment(s): 2018 lap/laparotomy/partial omenectomy/cystogastrectomy/lysis of adhesions, 2019 open incision hernia repair with mesh-difficulty with incision healing since, EGD, colonoscopy, R lung thorascopy/decortication, bilateral eye RK for vision correction. Past Anesthesia/Blood Transfusion Reactions: No Reported Reaction Past Psychological History: Anxiety, Bipolar, Depression Smoking Status: Current every day smoker Past Alcohol Use History: None Reported Past Drug Use History: None Reported - Past Family History Brother(s) Additional Family Medical History / Comment(s): Chronic alcoholism in 2 brothers Sister(s) Additional Family Medical History / Comment(s): Chronic alcoholism Daughter(s) Family Medical History: No Reported History Additional Family Medical History / Comment(s): One daughter healthy Son(s) Family Medical History: No Reported History Additional Family Medical History / Comment(s): One son healthy Father History Unknown: Yes Family Medical History: AICD/Pacemaker, Myocardial Infarction ([place]), Renal Disease Additional Family Medical History / Comment(s): Schizophrenia. Per patient, his father at the age of 59 from renal failure. Mother History Unknown: Yes Family Medical History: Hypertension Additional Family Medical History / Comment(s): HPV Medications and Allergies Home Medications Medication Instructions Recorded Confirmed Type Mirtazapine [Remeron] 15 mg PO HS 11/23/16 09/25/23 History lamoTRIgine [LaMICtal] 100 mg PO BID 03/13/17 09/25/23 History OLANZapine [ZyPREXA] 10 mg PO HS 03/28/18 09/25/23 History Buprenorphine-Nalox 8-2 mg Tab 1 tab SL BID 01/27/20 09/25/23 History [Suboxone 8-2 mg Tab] Omeprazole 20 mg PO BID 07/21/20 09/25/23 History Ergocalciferol (Vitamin D2) 1,250 mcg PO SA 09/25/23 09/25/23 History [Drisdol (50,000 Iu)] Insulin Aspart [NovoLOG Flexpen] 10 units SQ AC-TID 09/25/23 09/25/23 History Insulin Glargine,Hum.rec.anlog 15 units SQ HS 09/25/23 09/25/23 History [Lantus Solostar Pen] Levothyroxine Sodium [Synthroid] 25 mcg PO DAILY 09/25/23 09/25/23 History Phentermine HCl [Adipex-P] 37.5 mg PO DAILY 09/25/23 09/25/23 History Semaglutide [Ozempic] 1 mg SQ FR 09/25/23 09/25/23 History Allergies Allergy/AdvReac Type Severity Reaction Status Date / Time codeine Allergy Swelling Verified 09/25/23 19:47 furosemide [From Lasix] Allergy Rash/Hives Verified 09/25/23 19:47 haloperidol [From Haldol] Allergy Unknown Verified 09/25/23 19:47 prochlorperazine Allergy Swelling Verified 09/25/23 19:47 Surgical - Exam Vital Signs Temp Pulse Resp BP Pulse Ox 99.5 F 88 20 131/85 95 09/25/23 14:42 09/25/23 14:42 09/25/23 14:42 09/25/23 14:42 09/25/23 14:42 Results - Labs 09/26/23 05:37 09/26/23 05:37 Abnormal Lab Results - Last 24 Hours (Table) 09/25/23 09/25/23 09/25/23 Range/Units 15:00 15:45 15:45 RBC 6.02 H (4.30-5.90) m/uL Plt Count 126 L (150-450) k/uL Sodium 136 L (137-145) mmol/L Carbon Dioxide 21 L (22-30) mmol/L Creatinine 0.61 L (0.66-1.25) mg/dL Glucose 133 H (74-99) mg/dL POC Glucose (mg/dL) (70-110) mg/dL Alkaline Phosphatase 142 H (38-126) U/L Total Protein (6.2-8.2) g/dL Urine Glucose (UA) 4+ H (Negative) Urine Ketones 1+ H (Negative) 09/25/23 09/26/23 09/26/23 Range/Units 21:09 05:37 05:37 RBC (4.30-5.90) m/uL Plt Count 109 L (150-450) k/uL Sodium (137-145) mmol/L Carbon Dioxide (22-30) mmol/L Creatinine (0.66-1.25) mg/dL Glucose 124 H (74-99) mg/dL POC Glucose (mg/dL) 119 H (70-110) mg/dL Alkaline Phosphatase (38-126) U/L Total Protein 5.7 L (6.2-8.2) g/dL Urine Glucose (UA) (Negative) Urine Ketones (Negative) 09/26/23 09/26/23 Range/Units 06:01 12:04 RBC (4.30-5.90) m/uL Plt Count (150-450) k/uL Sodium (137-145) mmol/L Carbon Dioxide (22-30) mmol/L Creatinine (0.66-1.25) mg/dL Glucose (74-99) mg/dL POC Glucose (mg/dL) 113 H 115 H (70-110) mg/dL Alkaline Phosphatase (38-126) U/L Total Protein (6.2-8.2) g/dL Urine Glucose (UA) (Negative) Urine Ketones (Negative) Diabetes panel 09/25/23 09/26/23 Range/Units 15:45 05:37 Sodium 136 L 140 (137-145) mmol/L Potassium 4.7 3.7 (3.5-5.1) mmol/L Chloride 107 107 (98-107) mmol/L Carbon Dioxide 21 L 23.0 (22-30) mmol/L BUN 12 10.5 (9-20) mg/dL Creatinine 0.61 L 0.7 (0.66-1.25) mg/dL Glucose 133 H 124 H (74-99) mg/dL Calcium 9.4 8.9 (8.4-10.2) mg/dL AST 43 25 (17-59) U/L ALT 47 32 (4-49) U/L Alkaline Phosphatase 142 H 123 (38-126) U/L Total Protein 7.5 5.7 L (6.3-8.2) g/dL Albumin 4.7 4.0 (3.5-5.0) g/dL Calcium panel 09/25/23 09/26/23 Range/Units 15:45 05:37 Calcium 9.4 8.9 (8.4-10.2) mg/dL Albumin 4.7 4.0 (3.5-5.0) g/dL Pituitary panel 09/25/23 09/26/23 Range/Units 15:45 05:37 Sodium 136 L 140 (137-145) mmol/L Potassium 4.7 3.7 (3.5-5.1) mmol/L Chloride 107 107 (98-107) mmol/L Carbon Dioxide 21 L 23.0 (22-30) mmol/L BUN 12 10.5 (9-20) mg/dL Creatinine 0.61 L 0.7 (0.66-1.25) mg/dL Glucose 133 H 124 H (74-99) mg/dL Calcium 9.4 8.9 (8.4-10.2) mg/dL Adrenal panel 09/25/23 09/26/23 Range/Units 15:45 05:37 Sodium 136 L 140 (137-145) mmol/L Potassium 4.7 3.7 (3.5-5.1) mmol/L Chloride 107 107 (98-107) mmol/L Carbon Dioxide 21 L 23.0 (22-30) mmol/L BUN 12 10.5 (9-20) mg/dL Creatinine 0.61 L 0.7 (0.66-1.25) mg/dL Glucose 133 H 124 H (74-99) mg/dL Calcium 9.4 8.9 (8.4-10.2) mg/dL Total Bilirubin 0.8 0.4 (0.2-1.3) mg/dL AST 43 25 (17-59) U/L ALT 47 32 (4-49) U/L Alkaline Phosphatase 142 H 123 (38-126) U/L Total Protein 7.5 5.7 L (6.3-8.2) g/dL Albumin 4.7 4.0 (3.5-5.0) g/dL
[2023-09-26] MEDS: KETOROLAC 15 MG/ML 1 ML VIAL IVP PRN (13:25)
[2023-09-26 14:58] VITALS: RESP 16
[2023-09-26 17:09] LABS: Glucose,Whole Blood 110 mg/dL (70-110)
[2023-09-26 20:17] LABS: Glucose,Whole Blood 141 mg/dL (70-110)
[2023-09-27 05:55] LABS: Glucose,Whole Blood 100 mg/dL (70-110)
[2023-09-27 12:10] LABS: Glucose,Whole Blood 107 mg/dL (70-110)
--- NOTE | 2023-09-27 12:10 | P.CONS ---
History of Present Illness - Reason for Consult Consult date: 09/27/23 Pancreatitis Requesting physician: Marialuisa Espinoza - Chief Complaint Abdominal pain - History of Present Illness This is a pleasant 48-year-old male with a past medical history including chronic pancreatitis with previous pseudocyst requiring draining who had followed with [facility], IV drug use history with hepatitis C treated with interferon, diabetes mellitus and seizure disorder. Patient states he was diagnosed initially with gallstone pancreatitis 6 to 7 years ago. States that he has gotten flare about every 3 to 4 years. Came in with complaints of abd ominal pain mostly in the upper abdomen associated with some nausea but no vomiting. Had a CT of the abdomen pelvis reporting fluid adjacent to the spleen measuring 1.5 cm superior to the pancreas this is adjacent to the stomach lesser curvature smaller than comparison of 2020. Pseudocyst formation favored within the differential. Patient was started on IV fluids, pain medication and clear liquid diet. He has been tolerating the clear liquid diet without any increase in pain no nausea or vomiting. States abdominal pain about the same. Last bowel movement on Wednesday. He has been afebrile. General surgery is also following patient, no plans on surgical intervention. Review of Systems REVIEW OF SYSTEMS: CARDIOPULMONARY: No chest pain or shortness of breath. Gastrointestinal: Abdominal pain. No nausea or vomiting. No hematemesis, coffee-ground emesis. No rectal bleeding, or melena. GENITOURINARY: No dysuria or hematuria. MUSCULOSKELETAL: Reports normal range of motion., Joint pain. SKIN: No rashes. No jaundice. ENDOCRINE: No chills, fevers. No excessive weight gain or loss. No polydipsia or polyuria. PSYCHIATRIC: Unremarkable. NEUROLOGY: No change in mental status. Denies dizziness, headache. ENT: Vision unremarkable. CONSTITUTIONAL: No recent weight loss. No fever, chills, night sweats. 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 with surgery/difficulty with incision healing/past cellulitis abdomin, IDDM type II, bronchitis, R lung spontaneous pneumo with surgery, last seizure 2011, hepatitis C with interferon over 6 yrs ago, past IV drug abuse-no drugs for over one year except for one slip/on suboxone, DDD, occasional low back pain, History of Any Multi-Drug Resistant Organisms: None Reported Past Surgical History: Appendectomy, Cholecystectomy Additional Past Surgical History / Comment(s): 2018 lap/laparotomy/partial omenectomy/cystogastrectomy/lysis of adhesions, 2019 open incision hernia repair with mesh-difficulty with incision healing since, EGD, colonoscopy, R lung thorascopy/decortication, bilateral eye RK for vision correction. Past Anesthesia/Blood Transfusion Reactions: No Reported Reaction Past Psychological History: Anxiety, Bipolar, Depression Smoking Status: Current every day smoker Past Alcohol Use History: None Reported Past Drug Use History: None Reported - Past Family History Brother(s) Additional Family Medical History / Comment(s): Chronic alcoholism in 2 brothers Sister(s) Additional Family Medical History / Comment(s): Chronic alcoholism Daughter(s) Family Medical History: No Reported History Additional Family Medical History / Comment(s): One daughter healthy Son(s) Family Medical History: No Reported History Additional Family Medical History / Comment(s): One son healthy Father History Unknown: Yes Family Medical History: AICD/Pacemaker, Myocardial Infarction ([place]), Renal Disease Additional Family Medical History / Comment(s): Schizophrenia. Per patient, his father at the age of 59 from renal failure. Mother History Unknown: Yes Family Medical History: Hypertension Additional Family Medical History / Comment(s): HPV Medications and Allergies Home Medications Medication Instructions Recorded Confirmed Type Mirtazapine [Remeron] 15 mg PO HS 11/23/16 09/25/23 History lamoTRIgine [LaMICtal] 100 mg PO BID 03/13/17 09/25/23 History OLANZapine [ZyPREXA] 10 mg PO HS 03/28/18 09/25/23 History Buprenorphine-Nalox 8-2 mg Tab 1 tab SL BID 01/27/20 09/25/23 History [Suboxone 8-2 mg Tab] Omeprazole 20 mg PO BID 07/21/20 09/25/23 History Ergocalciferol (Vitamin D2) 1,250 mcg PO SA 09/25/23 09/25/23 History [Drisdol (50,000 Iu)] Insulin Aspart [NovoLOG Flexpen] 10 units SQ AC-TID 09/25/23 09/25/23 History Insulin Glargine,Hum.rec.anlog 15 units SQ HS 09/25/23 09/25/23 History [Lantus Solostar Pen] Levothyroxine Sodium [Synthroid] 25 mcg PO DAILY 09/25/23 09/25/23 History Phentermine HCl [Adipex-P] 37.5 mg PO DAILY 09/25/23 09/25/23 History Semaglutide [Ozempic] 1 mg SQ FR 09/25/23 09/25/23 History Allergies Allergy/AdvReac Type Severity Reaction Status Date / Time codeine Allergy Swelling Verified 09/25/23 19:47 furosemide [From Lasix] Allergy Rash/Hives Verified 09/25/23 19:47 haloperidol [From Haldol] Allergy Unknown Verified 09/25/23 19:47 prochlorperazine Allergy Swelling Verified 09/25/23 19:47 Physical Exam Vitals: Vital Signs Temp Pulse Resp BP BP Pulse Ox 09/27/23 07:00 97.9 F 65 16 130/82 97 09/27/23 02:00 97.9 F 69 121/73 97 09/26/23 20:00 97.9 F 67 122/77 97 09/26/23 14:32 97.9 F 74 16 120/72 97 Intake and Output 09/26/23 09/27/23 09/27/23 22:59 06:59 14:59 Other: # Voids 2 General appearance: The patient is alert, oriented, appears in no acute d istress. HET: Head is normocephalic and atraumatic. Conjunctiva pink. Sclera anicteric. Neck: Supple without lymphadenopathy. Trachea midline. Heart: Regular. Lungs: Equal expansion, normal respiratory effort. Abdomen: Soft, upper abdominal tenderness, nondistended. Skin: No rashes. No jaundice. Extremities: Normal skin color and turgor. No pedal edema. Neurological: No focal deficits. Alert and oriented x3. Results CBC & Chem 7: 09/26/23 05:37 09/26/23 05:37 Labs: Abnormal Lab Results - Last 24 Hours (Table) 09/26/23 09/26/23 09/26/23 Range/Units 05:37 05:37 12:04 Plt Count 109 L (140-440) X 10*3/uL Glucose 124 H (70-110) mg/dL POC Glucose (mg/dL) 115 H (70-110) mg/dL Total Protein 5.7 L (6.2-8.2) g/dL 09/26/23 Range/Units 20:16 Plt Count (140-440) X 10*3/uL Glucose (70-110) mg/dL POC Glucose (mg/dL) 141 H (70-110) mg/dL Total Protein (6.2-8.2) g/dL Comments: CT abdomen pelvis with contrast reports some fluid adjacent to the pancreas and lesser curvature of the stomach which could be related to pseudocyst formation should be considered. Finding has improved from 2020 comparison. Acute pancreatitis could be considered, abscess and stomach ulcer should be considered within the differential. Assessment and Plan (1) Abdominal pain Narrative/Plan: 48-year-old male with a history of pancreatitis and pancreatic pseudocyst who has followed with [facility] in the past. Last episode of acute pancreatitis was about 3 to 4 years ago. Initially diagnosed 6 to 7 years ago. Patient presenting with pain which she relates to previous pancreatitis. LFTs and amylase and lipase all normal. CT of abdomen does show some fluid and possible pseudocyst formation however smaller than 2020. Also in the differential includes abscess and stomach ulcer which general surgery has been consulted but are just following. Will continue to treat symptomatically with aggressive IV hydration, pain medications and increase diet slowly. Further recommendations forthcoming based on clinical course. Current Visit: Yes Status: Acute Code(s): R10.9 - UNSPECIFIED ABDOMINAL PAIN SNOMED Code(s): 19633588 (2) Pancreatic pseudocyst Current Visit: No Status: Acute Code(s): K86.3 - PSEUDOCYST OF PANCREAS SNOMED Code(s): 654185166 (3) History of hepatitis C Current Visit: No Status: Resolved Code(s): Z86.19 - PERSONAL HISTORY OF OTHER INFECTIOUS AND PARASITIC DISEASES SNOMED Code(s): 83040462099372 Plan: 1. Continue symptomatic and supportive care 2. Continue aggressive IV hydration 3. Pain medication as needed 4. Protonix 40 mg daily for GI prophylaxis 5. Antiemetics as needed 6. Encourage ambulation 7. Recommend outpatient follow-up with patient's [facility] specialist 8. Continue with recommendations from general surgery Thank you for this consultation, we will continue to follow. Dr. Susan Quiroga I agree with the dictator's note, documented as a scribe by Darling Pinedo.
[2023-09-27] MEDS ORDERED: ENOXAPARIN 40 MG/0.4 ML SYRINGE SQ ONE (14:26)
[2023-09-27] MEDS: ENOXAPARIN 40 MG/0.4 ML SYRINGE SQ SCH (15:29)
--- NOTE | 2023-09-27 16:15 | P.PN ---
Subjective Progress Note Date: 09/27/23 Juan Ralph, is a 48-year-old male who presented to [facility] emergency room with a chief complaint of abdominal pain, patient describes a severe pain in the epigastric and left upper quadrant area, that started 2 days prior to this admission. He was evaluated in the emergency room vital examination on presentation revealed a temperature of 99.5 pulse 88 respiration 20 blood pressure 131/85 pulse ox 95% on room air Laboratory data revealed a white blood count of 9.8 hemoglobin 16.5 platelet count 126 sodium 136 potassium 4.7 chloride 107 CO2 21 BUN 12 creatinine 0.61 AST 43 ALT 47 alkaline phosphatase 142 amylase 56 lipase 88 Testing in the emergency room revealed CT scan of the abdomen was done in the emergency room and revealed some fluid adjacent to the pancreas and lesser curvature of the stomach which could be related to pseudocyst formation, acute pancreatitis could be considered abscess and stomach ulcer should be considered within the differential Patient was admitted to medical floor for further evaluation and treatment Past medical history is significant for history of asthma, history of COPD, history of diabetes mellitus, history of gastroesophageal reflux disease, history of seizure disorder, history of chronic pancreatitis with history of pancreatic pseudocyst, history of insulin-dependent diabetes mellitus, history of seizure disorder, history of hepatitis C with previous history of interferon treatment, history of IV drug abuse, currently maintained on Suboxone, history of degenerative disc disease with chronic low back pain On review of systems patient is alert and oriented x 3 in no apparent distress, he has a low-grade fever no chills no headache no dizziness no chest pain no shortness of breath no cough he has severe abdominal pain with mild nausea no vomiting no diarrhea no blood in the stools no burning with urination no frequency or urgency and no hematuria. On 09/26/2023 patient was seen and examined on the medical floor he is alert and oriented x 3 in no apparent distress he is still complaining of left upper quadrant abdominal pain otherwise he denies any complaints there is no fever or chills no headache or dizziness no chest pain no shortness of breath no cough no nausea or vomiting no diarrhea no blood in the stools and no urinary symptoms, he remains n.p.o., he is receiving IV pain medications, awaiting GI and surgery input will follow closely On 09/27/2023 patient was seen and examined on the medical floor, he is alert and oriented x 3 in no apparent distress, he is still complaining of abdominal pain and nausea otherwise he denies any complaints, there is no fever or chills no headache or dizziness no chest pain no shortness of breath no cough, no vomiting no diarrhea no blood in the stools, no burning with urination no frequency or urgency and no hematuria. Input from gastroenterology and general surgery reviewed, no intervention recommended at this time, patient is maintained on clear liquid diet and will be advanced gradually. Objective - Vital Signs Vital signs: Vital Signs Temp 97.9 F 09/27/23 07:00 Pulse 65 09/27/23 07:00 Resp 16 09/27/23 07:00 BP 130/82 09/27/23 07:00 Pulse Ox 97 09/27/23 07:00 FiO2 Intake & Output 09/26/23 09/27/23 09/27/23 18:59 06:59 18:59 Intake Total 358 622 Balance 358 622 Intake: Oral 358 622 Other: # Voids 4 2 - Exam In general patient is alert and oriented x 3 in no distress HEENT head normocephalic and atraumatic Neck is supple no JVD no goiter no lymphadenopathy no carotid bruit Chest examination is clear to auscultation no crackles no wheezing Cardiac exam reveals regular heart sounds S1 and S2 no gallops no murmurs Abdomen is soft with tenderness in the epigastric and left upper quadrant area no rigidity no rebound no organomegaly with normal bowel sounds Extremity exam reveals no edema no cyanosis or clubbing Neurological examination reveals no gross focal deficits - Labs CBC & Chem 7: 09/26/23 05:37 09/26/23 05:37 Labs: Abnormal Lab Results - Last 24 Hours (Table) 09/26/23 Range/Units 20:16 POC Glucose (mg/dL) 141 H (70-110) mg/dL Assessment and Plan Plan: Abdominal pain, with CT scan of the abdomen revealing evidence of chronic pancreatitis and pancreatic pseudocyst Previous history of recurrent acute pancreatitis, history of chronic pancreatitis with history of pancreatic pseudocyst Underlying history of insulin-dependent diabetes mellitus History of asthma History of COPD History of seizure disorder Previous history of hepatitis C History of degenerative disc disease with chronic back pain History of IV drug abuse currently maintained on Suboxone At this time patient is admitted to medical floor He is kept n.p.o. Home medications reviewed and reordered Consultation for gastroenterology initiated Will follow closely.
[2023-09-27 17:00] LABS: Glucose,Whole Blood 123 mg/dL (70-110)
--- NOTE | 2023-09-27 17:42 | P.PN ---
Subjective Progress Note Date: 09/27/23 patient states he feels better. His abdominal pain is improved. On exam vital signs appear stable. Abdomen soft. History of chronic proctitis with pseudocyst formation. Patient will be medically managed. No surgical intervention is planned at this point. Patient will require repeat computed tomography scan in approximately 12 weeks. Objective - Vital Signs Vital signs: Vital Signs Temp 97.9 F 09/27/23 07:00 Pulse 65 09/27/23 07:00 Resp 16 09/27/23 07:00 BP 130/82 09/27/23 07:00 Pulse Ox 97 09/27/23 07:00 FiO2 Intake & Output 09/26/23 09/27/23 09/27/23 18:59 06:59 18:59 Intake Total 358 982 Balance 358 982 Intake: Oral 358 982 Other: # Voids 4 2 2 - Labs CBC & Chem 7: 09/26/23 05:37 09/26/23 05:37 Labs: Abnormal Lab Results - Last 24 Hours (Table) 09/26/23 09/27/23 Range/Units 20:16 16:58 POC Glucose (mg/dL) 141 H 123 H (70-110) mg/dL
[2023-09-27 20:39] LABS: Glucose,Whole Blood 117 mg/dL (70-110)
[2023-09-28 06:00] LABS: Glucose,Whole Blood 121 mg/dL (70-110)
--- NOTE | 2023-09-28 10:19 | P.PN ---
Subjective Progress Note Date: 09/28/23 Juan Ralph, is a 48-year-old male who presented to [facility] emergency room with a chief complaint of abdominal pain, patient describes a severe pain in the epigastric and left upper quadrant area, that started 2 days prior to this admission. He was evaluated in the emergency room vital examination on presentation revealed a temperature of 99.5 pulse 88 respiration 20 blood pressure 131/85 pulse ox 95% on room air Laboratory data revealed a white blood count of 9.8 hemoglobin 16.5 platelet count 126 sodium 136 potassium 4.7 chloride 107 CO2 21 BUN 12 creatinine 0.61 AST 43 ALT 47 alkaline phosphatase 142 amylase 56 lipase 88 Testing in the emergency room revealed CT scan of the abdomen was done in the emergency room and revealed some fluid adjacent to the pancreas and lesser curvature of the stomach which could be related to pseudocyst formation, acute pancreatitis could be considered abscess and stomach ulcer should be considered within the differential Patient was admitted to medical floor for further evaluation and treatment Past medical history is significant for history of asthma, history of COPD, history of diabetes mellitus, history of gastroesophageal reflux disease, history of seizure disorder, history of chronic pancreatitis with history of pancreatic pseudocyst, history of insulin-dependent diabetes mellitus, history of seizure disorder, history of hepatitis C with previous history of interferon treatment, history of IV drug abuse, currently maintained on Suboxone, history of degenerative disc disease with chronic low back pain On review of systems patient is alert and oriented x 3 in no apparent distress, he has a low-grade fever no chills no headache no dizziness no chest pain no shortness of breath no cough he has severe abdominal pain with mild nausea no vomiting no diarrhea no blood in the stools no burning with urination no frequency or urgency and no hematuria. On 09/26/2023 patient was seen and examined on the medical floor he is alert and oriented x 3 in no apparent distress he is still complaining of left upper quadrant abdominal pain otherwise he denies any complaints there is no fever or chills no headache or dizziness no chest pain no shortness of breath no cough no nausea or vomiting no diarrhea no blood in the stools and no urinary symptoms, he remains n.p.o., he is receiving IV pain medications, awaiting GI and surgery input will follow closely On 09/27/2023 patient was seen and examined on the medical floor, he is alert and oriented x 3 in no apparent distress, he is still complaining of abdominal pain and nausea otherwise he denies any complaints, there is no fever or chills no headache or dizziness no chest pain no shortness of breath no cough, no vomiting no diarrhea no blood in the stools, no burning with urination no frequency or urgency and no hematuria. Input from gastroenterology and general surgery reviewed, no intervention recommended at this time, patient is maintained on clear liquid diet and will be advanced gradually. On 09/28/2023 patient's alert and oriented 3. Patient reports improvement with abdominal pain was started on diet this morning.We'll continue to monitor at this time. Current vital signs temp 98.1, heart rate 61, respiratory rate 16, blood pressure 151/90 with pulse ox 98% on room air. Patient denies chest pain or shortness breath. Patient denies nausea vomiting or diarrhea. Patient denies any urinary burning or frequency Objective - Vital Signs Vital signs: Vital Signs Temp 98.1 F 09/28/23 07:00 Pulse 61 09/28/23 07:00 Resp 16 09/28/23 07:00 BP 151/90 09/28/23 07:00 Pulse Ox 98 09/28/23 07:00 FiO2 Intake & Output 09/27/23 09/28/23 09/28/23 18:59 06:59 18:59 Intake Total 1460 118 Balance 1460 118 Intake: Oral 1460 118 Other: Voiding Method Toilet # Voids 2 1 - Exam In general patient is alert and oriented x 3 in no distress HEENT head normocephalic and atraumatic Neck is supple no JVD no goiter no lymphadenopathy no carotid bruit Chest examination is clear to auscultation no crackles no wheezing Cardiac exam reveals regular heart sounds S1 and S2 no gallops no murmurs Abdomen is soft with tenderness in the epigastric and left upper quadrant area no rigidity no rebound no organomegaly with normal bowel sounds Extremity exam reveals no edema no cyanosis or clubbing Neurological examination reveals no gross focal deficits - Labs CBC & Chem 7: 09/26/23 05:37 09/26/23 05:37 Labs: Abnormal Lab Results - Last 24 Hours (Table) 09/27/23 09/27/23 09/28/23 Range/Units 16:58 20:38 05:55 POC Glucose (mg/dL) 123 H 117 H 121 H (70-110) mg/dL Assessment and Plan Plan: Abdominal pain, with CT scan of the abdomen revealing evidence of chronic p ancreatitis and pancreatic pseudocyst Previous history of recurrent acute pancreatitis, history of chronic pancreatitis with history of pancreatic pseudocyst Underlying history of insulin-dependent diabetes mellitus History of asthma History of COPD History of seizure disorder Previous history of hepatitis C History of degenerative disc disease with chronic back pain History of IV drug abuse currently maintained on Suboxone At this time patient is admitted to medical floor Patient started onSoft consistent carb diet 09/28/2023 Home medications reviewed and reordered Consultation for gastroenterology initiated Will follow closely.
[2023-09-28 10:26] LABS: Basophils # (A) 0.03 X 10*3/uL (0.00-0.10); Basophils % (A) 0.5 %; Eosinophils # (A) 0.21 X 10*3/uL (0.04-0.35); Eosinophils % (A) 3.7 %; HGB 13.9 g/dL (13.0-17.0); Lymphocytes # (A) 1.56 X 10*3/uL (0.90-5.00); Lymphocytes % (A) 27.7 %; MCH 27.8 pg (27.0-32.0); MCHC 33.1 g/dL (32.0-37.0); Mean Platelet Volume 11.4 FL (9.5-12.2); Monocytes # (A) 0.57 X 10*3/uL (0.20-1.00); Monocytes % (A) 10.1 %; NRBC Per 100 WBC 0 X 10*3/uL (0.00-0.01); Neutrophils # (A) 3.25 X 10*3/uL (1.80-7.70); Neutrophils % (A) 57.6 %; Platelet Count 92 X 10*3/uL (140-440); RDW 12.7 % (11.5-14.5); WBC 5.64 X 10*3/uL (4.50-10.00)
[2023-09-28 10:33] LABS: ALT 27 U/L (10-49); AST 25 U/L (14-35); Albumin 3.9 g/dL (3.8-4.9); Albumin/Globulin Ratio 2.17 Ratio (1.60-3.17); Alkaline Phosphatase 115 U/L (41-126); Blood Urea Nitrogen 6.4 mg/dL (9.0-27.0); Calcium 8.8 mg/dL (8.7-10.3); Chloride 108 mmol/L (96-109); Globulin 1.8 g/dL (1.6-3.3); Glucose 122 mg/dL (70-110); Potassium 3.9 mmol/L (3.5-5.5); Sodium 142 mmol/L (135-145); Total Bilirubin 0.3 mg/dL (0.3-1.2); Total Protein 5.7 g/dL (6.2-8.2)
[2023-09-28 12:56] LABS: Glucose,Whole Blood 94 mg/dL (70-110)
--- NOTE | 2023-09-28 14:47 | P.PN ---
Subjective Progress Note Date: 09/28/23 patient states his pain is slightly improved. On exam vital signs are stable. Abdomen soft. History of chronic pancreatitis with pseudocyst formation. Patient will be medically managed. No surgical invention is planned. Objective - Vital Signs Vital signs: Vital Signs Temp 98.1 F 09/28/23 14:09 Pulse 71 09/28/23 14:09 Resp 16 09/28/23 14:09 BP 128/77 09/28/23 14:09 Pulse Ox 97 09/28/23 14:09 FiO2 Intake & Output 09/27/23 09/28/23 09/28/23 18:59 06:59 18:59 Intake Total 1460 340 Balance 1460 340 Intake: Oral 1460 340 Other: Voiding Method Toilet # Voids 2 1 6 - Labs CBC & Chem 7: 09/28/23 07:49 09/28/23 07:49 Labs: Abnormal Lab Results - Last 24 Hours (Table) 09/27/23 09/27/23 09/28/23 Range/Units 16:58 20:38 05:55 Plt Count (140-440) X 10*3/uL BUN (9.0-27.0) mg/dL BUN/Creatinine Ratio (12.00-20.00) Ratio Glucose (70-110) mg/dL POC Glucose (mg/dL) 123 H 117 H 121 H (70-110) mg/dL Total Protein (6.2-8.2) g/dL 09/28/23 09/28/23 Range/Units 07:49 07:49 Plt Count 92 L (140-440) X 10*3/uL BUN 6.4 L (9.0-27.0) mg/dL BUN/Creatinine Ratio 8.00 L (12.00-20.00) Ratio Glucose 122 H (70-110) mg/dL POC Glucose (mg/dL) (70-110) mg/dL Total Protein 5.7 L (6.2-8.2) g/dL
--- NOTE | 2023-09-28 16:42 | P.PN ---
Subjective Progress Note Date: 09/28/23 Principal diagnosis: Pancreatitis This is a pleasant 48-year-old male with a past medical history including chronic pancreatitis with previous pseudocyst requiring draining who had followed with [facility], IV drug use history with hepatitis C treated with interferon, diabetes mellitus and seizure disorder. Patient states he was diagnosed initially with gallstone pancreatitis 6 to 7 years ago. States that he has gotten flare about every 3 to 4 years. Came in with complaints of abdominal pain mostly in the upper abdomen associated with some nausea but no vomiting. Had a CT of the abdomen pelvis reporting fluid adjacent to the spleen measuring 1.5 cm superior to the pancreas this is adjacent to the stomach lesser curvature smaller than comparison of 2020. Pseudocyst formation favored within the differential. Patient was started on IV fluids, pain medication and clear liquid diet. He has been tolerating the clear liquid diet without any increase in pain no nausea or vomiting. States abdominal pain about the same. Last bowel movement on Wednesday. He has been afebrile. General surgery is also following patient, no plans on surgical intervention. 09/28/2023 Patient seen and examined today as a follow-up for pancreatitis. States abdominal pain has improved. He was started on a soft diet by general surgery. Denies any nausea or vomiting. States he had a couple bowel movements yesterday. He has been afebrile. Today's labs unremarkable, other than platelet count 92,000. Objective - Vital Signs Vital signs: Vital Signs Temp 98.1 F 09/28/23 07:00 Pulse 61 09/28/23 07:00 Resp 16 09/28/23 07:00 BP 151/90 09/28/23 07:00 Pulse Ox 98 09/28/23 07:00 FiO2 Intake & Output 09/27/23 09/28/23 09/28/23 18:59 06:59 18:59 Intake Total 1460 118 Balance 1460 118 Intake: Oral 1460 118 Other: Voiding Method Toilet # Voids 2 1 - Exam General appearance: The patient is alert, oriented, appears in no acute distress. HET: Head is normocephalic and atraumatic. Conjunctiva pink. Sclera anicteric. Neck: Supple without lymphadenopathy. Abdomen: Soft, nontender, nondistended with bowel sounds. No guarding or rigidity. Extremities: Normal skin color and turgor. No pedal edema Skin: No rashes, no jaundice Neurological: No focal deficits. Alert and oriented. - Labs CBC & Chem 7: 09/28/23 07:49 09/28/23 07:49 Labs: Abnormal Lab Results - Last 24 Hours (Table) 09/27/23 09/27/23 09/28/23 Range/Units 16:58 20:38 05:55 Plt Count (140-440) X 10*3/uL BUN (9.0-27.0) mg/dL BUN/Creatinine Ratio (12.00-20.00) Ratio Glucose (70-110) mg/dL POC Glucose (mg/dL) 123 H 117 H 121 H (70-110) mg/dL Total Protein (6.2-8.2) g/dL 09/28/23 09/28/23 Range/Units 07:49 07:49 Plt Count 92 L (140-440) X 10*3/uL BUN 6.4 L (9.0-27.0) mg/dL BUN/Creatinine Ratio 8.00 L (12.00-20.00) Ratio Glucose 122 H (70-110) mg/dL POC Glucose (mg/dL) (70-110) mg/dL Total Protein 5.7 L (6.2-8.2) g/dL Assessment and Plan (1) Abdominal pain Narrative/Plan: 48-year-old male with a history of pancreatitis and pancreatic pseudocyst who has followed with [facility] in the past. Last episode of acute pancreatitis was about 3 to 4 years ago. Initially diagnosed 6 to 7 years ago. Patient presenting with pain which she relates to previous pancreatitis. LFTs and amylase and lipase all normal. CT of abdomen does show some fluid and possible pseudocyst formation however smaller than 2020. Also in the differential includes abscess and stomach ulcer which general surgery has been consulted but are just following. Will continue to treat symptomatically with aggressive IV hydration, pain medications and increase diet slowly. Further recommendations forthcoming based on clinical course. Current Visit: Yes Status: Acute Code(s): R10.9 - UNSPECIFIED ABDOMINAL PAIN SNOMED Code(s): 40514044 (2) Pancreatic pseudocyst Current Visit: No Status: Acute Code(s): K86.3 - PSEUDOCYST OF PANCREAS SNOMED Code(s): 119785923 (3) History of hepatitis C Current Visit: No Status: Resolved Code(s): Z86.19 - PERSONAL HISTORY OF OTHER INFECTIOUS AND PARASITIC DISEASES SNOMED Code(s): 44108121251305 (4) Thrombocytopenia Narrative/Plan: Unclear etiology Current Visit: No Status: Acute Code(s): D69.6 - THROMBOCYTOPENIA, UNSPECIFIED SNOMED Code(s): 539948010 Plan: 1. Continue symptomatic and supportive care 2. Continue soft diet, advance as tolerated. Discussed with patient eat small meals. 3. Pain medication as needed 4. Protonix 40 mg daily for GI prophylaxis 5. Antiemetics as needed 6. Encourage ambulation 7. No further workup indicated. Anticipate discharge in the next 24 hours. 8. I discussed with patient to follow-up with his specialist at [facility] for a hospital follow-up Thank you for this consultation, if patient tolerates his diet he is cleared from gastroenterology for discharge. Dr. Susan Quiroga I agree with the dictator's note, documented as a scribe by Darling Pinedo.
[2023-09-28 17:24] LABS: Glucose,Whole Blood 149 mg/dL (70-110)
[2023-09-28 20:45] LABS: Glucose,Whole Blood 104 mg/dL (70-110)
[2023-09-29 05:38] LABS: Glucose,Whole Blood 127 mg/dL (70-110)
[2023-09-29 07:50] VITALS: BP 130/85; PULSE 67; TEMP 98.6
[2023-09-29 10:31] LABS: ALT 27 U/L (10-49); AST 23 U/L (14-35); Albumin 3.9 g/dL (3.8-4.9); Albumin/Globulin Ratio 2.05 Ratio (1.60-3.17); Alkaline Phosphatase 116 U/L (41-126); Blood Urea Nitrogen 8.8 mg/dL (9.0-27.0); Calcium 8.8 mg/dL (8.7-10.3); Carbon Dioxide 23.4 mmol/L (21.6-31.8); Chloride 106 mmol/L (96-109); Globulin 1.9 g/dL (1.6-3.3); Glucose 126 mg/dL (70-110); Potassium 3.6 mmol/L (3.5-5.5); Sodium 141 mmol/L (135-145); Total Bilirubin 0.3 mg/dL (0.3-1.2); Total Protein 5.8 g/dL (6.2-8.2)
[2023-09-29 10:35] LABS: Basophils # (A) 0.04 X 10*3/uL (0.00-0.10); Basophils % (A) 0.6 %; Eosinophils # (A) 0.25 X 10*3/uL (0.04-0.35); HCT 41.6 % (39.6-50.0); Lymphocytes # (A) 1.53 X 10*3/uL (0.90-5.00); Lymphocytes % (A) 24.3 %; MCH 28.5 pg (27.0-32.0); MCHC 33.7 g/dL (32.0-37.0); MCV 84.7 FL (80.0-97.0); Mean Platelet Volume 12.2 FL (9.5-12.2); Monocytes # (A) 0.52 X 10*3/uL (0.20-1.00); Monocytes % (A) 8.3 %; NRBC Per 100 WBC 0 X 10*3/uL (0.00-0.01); Neutrophils # (A) 3.93 X 10*3/uL (1.80-7.70); Neutrophils % (A) 62.3 %; Platelet Count 83 X 10*3/uL (140-440); RBC 4.91 X 10*6/uL (4.40-5.60); RDW 12.7 % (11.5-14.5)
--- NOTE | 2023-09-29 10:37 | P.DS ---
Providers Date of admission: 09/25/23 18:47 Expected date of discharge: 09/29/23 Attending physician: Marialuisa Espinoza Consults: 09/25/23 18:46 Consult Physician Urgent Consulting Provider: Donny Hicks Consult Reason/Comments: abp, see ct Do you want consulting provider notified?: Yes 09/26/23 09:49 Consult Physician Routine Consulting Provider: Kianna Quiroga Consult Reason/Comments: pancreatitis Do you want consulting provider notified?: Yes Primary care physician: Marialuisa Olga [place] Hospital Course: Discharge diagnosis Juan Ralph, is a 48-year-old male who presented to [facility] emergency room with a chief complaint of abdominal pain, patient describes a severe pain in the epigastric and left upper quadrant area, that started 2 days prior to this admission. He was evaluated in the emergency room vital examination on presentation revealed a temperature of 99.5 pulse 88 respiration 20 blood pressure 131/85 pulse ox 95% on room air Laboratory data revealed a white blood count of 9.8 hemoglobin 16.5 platelet count 126 sodium 136 potassium 4.7 chloride 107 CO2 21 BUN 12 creatinine 0.61 AST 43 ALT 47 alkaline phosphatase 142 amylase 56 lipase 88 Testing in the emergency room revealed CT scan of the abdomen was done in the emergency room and revealed some fluid adjacent to the pancreas and lesser curvature of the stomach which could be related to pseudocyst formation, acute pancreatitis could be considered abscess and stomach ulcer should be considered within the differential Patient was admitted to medical floor for further evaluation and treatment Past medical history is significant for history of asthma, history of COPD, history of diabetes mellitus, history of gastroesophageal reflux disease, history of seizure disorder, history of chronic pancreatitis with history of pancreatic pseudocyst, history of insulin-dependent diabetes mellitus, history of seizure disorder, history of hepatitis C with previous history of interferon treatment, history of IV drug abuse, currently maintained on Suboxone, history of degenerative disc disease with chronic low back pain On review of systems patient is alert and oriented x 3 in no apparent distress, he has a low-grade fever no chills no headache no dizziness no chest pain no shortness of breath no cough he has severe abdominal pain with mild nausea no vomiting no diarrhea no blood in the stools no burning with urination no frequency or urgency and no hematuria. On 09/26/2023 patient was seen and examined on the medical floor he is alert and oriented x 3 in no apparent distress he is still complaining of left upper quadrant abdominal pain otherwise he denies any complaints there is no fever or chills no headache or dizziness no chest pain no shortness of breath no cough no nausea or vomiting no diarrhea no blood in the stools and no urinary symptoms, he remains n.p.o., he is receiving IV pain medications, awaiting GI and surgery input will follow closely On 09/27/2023 patient was seen and examined on the medical floor, he is alert and oriented x 3 in no apparent distress, he is still complaining of abdominal pain and nausea otherwise he denies any complaints, there is no fever or chills no headache or dizziness no chest pain no shortness of breath no cough, no vomiting no diarrhea no blood in the stools, no burning with urination no frequency or urgency and no hematuria. Input from gastroenterology and general surgery reviewed, no intervention recommended at this time, patient is maintained on clear liquid diet and will be advanced gradually. On 09/28/2023 patient's alert and oriented 3. Patient reports improvement with abdominal pain was started on diet this morning.We'll continue to monitor at this time. Current vital signs temp 98.1, heart rate 61, respiratory rate 16, blood pressure 151/90 with pulse ox 98% on room air. Patient denies chest pain or shortness breath. Patient denies nausea vomiting or diarrhea. Patient denies any urinary burning or frequency hospital course Juan Ralph, is a 48-year-old male who presented to [facility] emergency room with a chief complaint of abdominal pain, patient describes a severe pain in the epigastric and left upper quadrant area, that started 2 days prior to this admission. He was evaluated in the emergency room vital examination on presentation reveale d a temperature of 99.5 pulse 88 respiration 20 blood pressure 131/85 pulse ox 95% on room air Laboratory data revealed a white blood count of 9.8 hemoglobin 16.5 platelet count 126 sodium 136 potassium 4.7 chloride 107 CO2 21 BUN 12 creatinine 0.61 AST 43 ALT 47 alkaline phosphatase 142 amylase 56 lipase 88 Testing in the emergency room revealed CT scan of the abdomen was done in the emergency room and revealed some fluid adjacent to the pancreas and lesser curvature of the stomach which could be related to pseudocyst formation, acute pancreatitis could be considered abscess and stomach ulcer should be considered within the differential Patient was admitted to medical floor for further evaluation and treatment Past medical history is significant for history of asthma, history of COPD, his tory of diabetes mellitus, history of gastroesophageal reflux disease, history of seizure disorder, history of chronic pancreatitis with history of pancreatic pseudocyst, history of insulin-dependent diabetes mellitus, history of seizure disorder, history of hepatitis C with previous history of interferon treatment, history of IV drug abuse, currently maintained on Suboxone, history of degenerative disc disease with chronic low back pain On review of systems patient is alert and oriented x 3 in no apparent distress, he has a low-grade fever no chills no headache no dizziness no chest pain no s hortness of breath no cough he has severe abdominal pain with mild nausea no vomiting no diarrhea no blood in the stools no burning with urination no frequency or urgency and no hematuria. On 09/26/2023 patient was seen and examined on the medical floor he is alert and oriented x 3 in no apparent distress he is still complaining of left upper quadrant abdominal pain otherwise he denies any complaints there is no fever or chills no headache or dizziness no chest pain no shortness of breath no cough no nausea or vomiting no diarrhea no blood in the stools and no urinary symptoms, he remains n.p.o., he is receiving IV pain medications, awaiting GI and surgery input will follow closely On 09/27/2023 patient was seen and examined on the medical floor, he is alert and oriented x 3 in no apparent distress, he is still complaining of abdominal pain and nausea otherwise he denies any complaints, there is no fever or chills no headache or dizziness no chest pain no shortness of breath no cough, no vomiting no diarrhea no blood in the stools, no burning with urination no frequency or urgency and no hematuria. Input from gastroenterology and general surgery reviewed, no intervention recommended at this time, patient is maintained on clear liquid diet and will be advanced gradually. On 09/28/2023 patient's alert and oriented 3. Patient reports improvement with abdominal pain was started on diet this morning.We'll continue to monitor at this time. Current vital signs temp 98.1, heart rate 61, respiratory rate 16, blood pressure 151/90 with pulse ox 98% on room air. Patient denies chest pain or shortness breath. Patient denies nausea vomiting or diarrhea. Patient denies any urinary burning or frequency On 09/29/2023 patient is alert and oriented x 3. Discussed case with GI services patient has been cleared for discharge will follow-up with [facility]. Patient has been tolerating diet does complain of mild pain patient will be DC'd home and follow-up outpatient patient denies any nausea or vomiting patient denies any urinary burning or frequency Patient Condition at Discharge: Stable Plan - Discharge Summary New Discharge Prescriptions: Continue Mirtazapine [Remeron] 15 mg PO HS lamoTRIgine [LaMICtal] 100 mg PO BID OLANZapine [ZyPREXA] 10 mg PO HS Buprenorphine-Nalox 8-2 mg Tab [Suboxone 8-2 mg Tab] 1 tab SL BID Levothyroxine Sodium [Synthroid] 25 mcg PO DAILY Phentermine HCl [Adipex-P] 37.5 mg PO DAILY Ergocalciferol (Vitamin D2) [Drisdol (50,000 Iu)] 1,250 mcg PO SA Semaglutide [Ozempic] 1 mg SQ FR Omeprazole 20 mg PO BID Insulin Glargine,Hum.rec.anlog [Lantus Solostar Pen] 15 units SQ HS Insulin Aspart [NovoLOG Flexpen] 10 units SQ AC-TID Discharge Medication List Mirtazapine [Remeron] 15 mg PO HS 11/23/16 [History] lamoTRIgine [LaMICtal] 100 mg PO BID 03/13/17 [History] OLANZapine [ZyPREXA] 10 mg PO HS 03/28/18 [History] Buprenorphine-Nalox 8-2 mg Tab [Suboxone 8-2 mg Tab] 1 tab SL BID 01/27/20 [History] Omeprazole 20 mg PO BID 07/21/20 [History] Ergocalciferol (Vitamin D2) [Drisdol (50,000 Iu)] 1,250 mcg PO SA 09/25/23 [History] Insulin Aspart [NovoLOG Flexpen] 10 units SQ AC-TID 09/25/23 [History] Insulin Glargine,Hum.rec.anlog [Lantus Solostar Pen] 15 units SQ HS 09/25/23 [History] Levothyroxine Sodium [Synthroid] 25 mcg PO DAILY 09/25/23 [History] Phentermine HCl [Adipex-P] 37.5 mg PO DAILY 09/25/23 [History] Semaglutide [Ozempic] 1 mg SQ FR 09/25/23 [History] Follow up Appointment(s)/Referral(s): Lin Byrnes NPC [REFERRING] - 2 Weeks (Gastroenterology, follow-up for pancreatitis, pancreatic pseudocyst Or may see 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
--- NOTE | 2023-09-29 11:16 | P.PN ---
Subjective Progress Note Date: 09/29/23 Principal diagnosis: Pancreatitis This is a pleasant 48-year-old male with a past medical history including chronic pancreatitis with previous pseudocyst requiring draining who had followed with [facility], IV drug use history with hepatitis C treated with interferon, diabetes mellitus and seizure disorder. Patient states he was diagnosed initially with gallstone pancreatitis 6 to 7 years ago. States that he has gotten flare about every 3 to 4 years. Came in with complaints of abdominal pain mostly in the upper abdomen associated with some nausea but no vomiting. Had a CT of the abdomen pelvis reporting fluid adjacent to the spleen measuring 1.5 cm superior to the pancreas this is adjacent to the stomach lesser curvature smaller than comparison of 2020. Pseudocyst formation favored within the differential. Patient was started on IV fluids, pain medication and clear liquid diet. He has been tolerating the clear liquid diet without any increase in pain no nausea or vomiting. States abdominal pain about the same. Last bowel movement on Wednesday. He has been afebrile. General surgery is also following patient, no plans on surgical intervention. 09/28/2023 Patient seen and examined today as a follow-up for pancreatitis. States abdominal pain has improved. He was started on a soft diet by general surgery. Denies any nausea or vomiting. States he had a couple bowel movements yesterday. He has been afebrile. Today's labs unremarkable, other than platelet count 92,000. 09/29/2023 Patient seen and examined today as a follow-up. He is sitting up in bed. He has been tolerating his diet. States he still has some abdominal discomfort but much better, no nausea or vomiting. He has been up and ambulating. He has been afebrile. Objective - Vital Signs Vital signs: Vital Signs Temp 98.6 F 09/29/23 07:00 Pulse 67 09/29/23 07:00 Resp 16 09/29/23 07:00 BP 130/85 09/29/23 07:00 Pulse Ox 95 09/29/23 07:00 FiO2 Intake & Output 09/28/23 09/29/23 09/29/23 18:59 06:59 18:59 Intake Total 580 Balance 580 Intake: Oral 580 Other: Voiding Method Toilet # Voids 6 2 - Exam General appearance: The patient is alert, oriented, appears in no acute distress. HET: Head is normocephalic and atraumatic. Conjunctiva pink. Sclera anicteric. Neck: Supple without lymphadenopathy. Abdomen: Soft, mild upper abdominal tenderness, nondistended. Extremities: Normal skin color and turgor. No pedal edema Skin: No rashes, no jaundice Neurological: No focal deficits. Alert and oriented. - Labs CBC & Chem 7: 09/29/23 07:00 09/29/23 07:00 Labs: Abnormal Lab Results - Last 24 Hours (Table) 09/28/23 09/28/23 09/28/23 Range/Units 07:49 07:49 17:23 Plt Count 92 L (140-440) X 10*3/uL BUN 6.4 L (9.0-27.0) mg/dL BUN/Creatinine Ratio 8.00 L (12.00-20.00) Ratio Glucose 122 H (70-110) mg/dL POC Glucose (mg/dL) 149 H (70-110) mg/dL Total Protein 5.7 L (6.2-8.2) g/dL 09/29/23 Range/Units 05:36 Plt Count (140-440) X 10*3/uL BUN (9.0-27.0) mg/dL BUN/Creatinine Ratio (12.00-20.00) Ratio Glucose (70-110) mg/dL POC Glucose (mg/dL) 127 H (70-110) mg/dL Total Protein (6.2-8.2) g/dL Assessment and Plan (1) Abdominal pain Narrative/Plan: 48-year-old male with a history of pancreatitis and pancreatic pseudocyst who has followed with [facility] in the past. Last episode of acute pancreatitis was about 3 to 4 years ago. Initially diagnosed 6 to 7 years ago. Patient presenting with pain which she relates to previous pancreatitis. LFTs and amylase and lipase all normal. CT of abdomen does show some fluid and possible pseudocyst formation however smaller than 2020. Also in the differential includes abscess and stomach ulcer which general surgery has been consulted but are just following. Will continue to treat symptomatically with aggressive IV hydration, pain medications and increase diet slowly. Discussed with patient follow-up with either his [facility] specialist or he can establish with Dr. Quiroga's office for pancreatitis. Also encourage small frequent meals until he is feeling better. Current Visit: Yes Status: Acute Code(s): R10.9 - UNSPECIFIED ABDOMINAL PAIN SNOMED Code(s): 70047998 (2) Pancreatic pseudocyst Current Visit: No Status: Acute Code(s): K86.3 - PSEUDOCYST OF PANCREAS SNOMED Code(s): 860905078 (3) History of hepatitis C Current Visit: No Status: Resolved Code(s): Z86.19 - PERSONAL HISTORY OF OTHER INFECTIOUS AND PARASITIC DISEASES SNOMED Code(s): 17450170030000 (4) Thrombocytopenia Narrative/Plan: Unclear etiology, trending platelet counts he has had a history of thrombocytopenia. Consider outpatient hematology consultation. Current Visit: No Status: Acute Code(s): D69.6 - THROMBOCYTOPENIA, UNSPECIFIED SNOMED Code(s): 242784587 Plan: 1. Continue symptomatic and supportive care 2. Continue soft diet, advance as tolerated. Discussed with patient eat small meals. 3. Pain medication as needed 4. Protonix 40 mg daily for GI prophylaxis 5. Antiemetics as needed 6. Encourage ambulation. 7. I discussed with patient to follow-up with his specialist at [facility] for a hospital follow-up in 1 to 2 weeks or he may establish with Dr. Quiroga's office Thank you for this consultation, patient is cleared from gastroenterology for discharge. Dr. Susan Quiroga I agree with the dictator's note, documented as a scribe by Darling Pinedo.
--- NOTE | 2023-09-29 12:47 | P.PN ---
Subjective Progress Note Date: 09/29/23 CHIEF COMPLAINT: Chronic pancreatitis HISTORY OF PRESENT ILLNESS: Patient reports tolerating a soft diet. He had some mild epigastric pain yesterday. Pain is improving. He denies any nausea or vomiting. Afebrile. He is scheduled for discharge today PHYSICAL EXAM: VITAL SIGNS: Reviewed. GENERAL: Well-developed in no acute distress. ABDOMEN: Soft. Nondistended. Mild tenderness epigastric area NEUROLOGIC: Alert and oriented. Cranial nerves II through XII grossly intact. ASSESSMENT: 1. Chronic pancreatitis with pseudocyst PLAN: -No surgical intervention planned -Continue medical management -Patient can be discharged from surgical standpoint Physician Computer Typesetter note has been reviewed by physician. Signing provider agrees with the documented findings, assessment, and plan of care. Objective - Vital Signs Vital signs: Vital Signs Temp 98.6 F 09/29/23 07:00 Pulse 67 09/29/23 07:00 Resp 16 09/29/23 07:00 BP 130/85 09/29/23 07:00 Pulse Ox 95 09/29/23 07:00 FiO2 Intake & Output 09/28/23 09/29/23 09/29/23 18:59 06:59 18:59 Intake Total 580 180 Balance 580 180 Intake: Oral 580 180 Other: Voiding Method Toilet # Voids 6 2 - Labs CBC & Chem 7: 09/29/23 07:00 09/29/23 07:00 Labs: Abnormal Lab Results - Last 24 Hours (Table) 09/28/23 09/29/23 09/29/23 Range/Units 17:23 05:36 07:00 Plt Count 83 L (140-440) X 10*3/uL BUN (9.0-27.0) mg/dL BUN/Creatinine Ratio (12.00-20.00) Ratio Glucose (70-110) mg/dL POC Glucose (mg/dL) 149 H 127 H (70-110) mg/dL Total Protein (6.2-8.2) g/dL 09/29/23 Range/Units 07:00 Plt Count (140-440) X 10*3/uL BUN 8.8 L (9.0-27.0) mg/dL BUN/Creatinine Ratio 11.00 L (12.00-20.00) Ratio Glucose 126 H (70-110) mg/dL POC Glucose (mg/dL) (70-110) mg/dL Total Protein 5.8 L (6.2-8.2) g/dL
[2023-10-01] MEDS ORDERED: NON FORMULARY DRUG (Semaglutide [Ozempic] 1 MG/0.75 ML Each) SQ SCH (20:47)
== END 2023-09-29 12:16 | disposition home or self-care (01) ==
LOC: EC 14:36 → 6NMEDSUR 18:47
PROVIDERS: ADMIT Internal Medicine; ATTEND Internal Medicine
DX: K86.1 Other chronic pancreatitis (principal); K86.3 Pseudocyst of pancreas; D69.6 Thrombocytopenia, unspecified; J44.89 Other specified chronic obstructive pulmonary disease; E11.9 Type 2 diabetes mellitus without complications; G40.909 Epilepsy, unspecified, not intractable, without status epilepticus; F19.10 Other psychoactive substance abuse, uncomplicated; K21.9 Gastro-esophageal reflux disease without esophagitis; G89.29 Other chronic pain; M54.50 Low back pain, unspecified; F17.200 Nicotine dependence, unspecified, uncomplicated; Z79.85 Long-term (current) use of injectable non-insulin antidiabetic drugs; Z79.890 Hormone replacement therapy; Z79.4 Long term (current) use of insulin; Z79.51 Long term (current) use of inhaled steroids; Z79.899 Other long term (current) drug therapy; Z88.5 Allergy status to narcotic agent; Z88.8 Allergy status to other drugs, medicaments and biological substances; Z87.19 Personal history of other diseases of the digestive system; Z86.19 Personal history of other infectious and parasitic diseases; Z90.49 Acquired absence of other specified parts of digestive tract
CPT/HCPCS: 96376 ×5; 96361 ×5; 96372 ×2; 96375 ×2; 96365; 99285; 36415; 80053 ×4; 82150 ×2; 83690 ×2; 85025 ×4; 81003; 74177; G0378 ×5; J2405; J1650 ×2; J1170 ×5; J0131; J1885 ×3; C9113 ×5; Q9967

== ENCOUNTER 2024-02-16 17:54 | Emergency (ER) | payer MEDICARE ==
--- NOTE | 2024-02-16 18:08 | ED ---
GI Bleed HPI - General Chief complaint: GI Bleed Stated complaint: abd pain/blood in stool Time Seen by Provider: 02/16/24 18:07 Source: patient, RN notes reviewed, old records reviewed Mode of arrival: ambulatory Limitations: no limitations - History of Present Illness Initial comments: This is a 48-year-old male to the ER for evaluation patient presents today for evaluation regards to severe abdominal pain which what he believes is vomit with blood and blood in his stool MD complaint: blood streaked emesis, blood on toilet paper -: hour(s) Severity scale (1-10): 3 Quality: cramping (Epigastric pain) Consistency: constant Improves with: none Worsens with: none Context: other (0) Associated Symptoms: denies other symptoms - Related Data Home Medications Medication Instructions Recorded Confirmed Mirtazapine [Remeron] 15 mg PO HS 11/23/16 09/25/23 lamoTRIgine [LaMICtal] 100 mg PO BID 03/13/17 09/25/23 OLANZapine [ZyPREXA] 10 mg PO HS 03/28/18 09/25/23 Buprenorphine-Nalox 8-2 mg Tab 1 tab SL BID 01/27/20 09/25/23 [Suboxone 8-2 mg Tab] Omeprazole 20 mg PO BID 07/21/20 09/25/23 Ergocalciferol (Vitamin D2) 1,250 mcg PO SA 09/25/23 09/25/23 [Drisdol (50,000 Iu)] Insulin Aspart [NovoLOG Flexpen] 10 units SQ AC-TID 09/25/23 09/25/23 Insulin Glargine,Hum.rec.anlog 15 units SQ HS 09/25/23 09/25/23 [Lantus Solostar Pen] Levothyroxine Sodium [Synthroid] 25 mcg PO DAILY 09/25/23 09/25/23 Phentermine HCl [Adipex-P] 37.5 mg PO DAILY 09/25/23 09/25/23 Semaglutide [Ozempic] 1 mg SQ FR 09/25/23 09/25/23 Allergies Allergy/AdvReac Type Severity Reaction Status Date / Time codeine Allergy Swelling Verified 02/16/24 17:56 furosemide [From Lasix] Allergy Rash/Hives Verified 02/16/24 17:56 haloperidol [From Haldol] Allergy Unknown Verified 02/16/24 17:56 prochlorperazine Allergy Swelling Verified 02/16/24 17:56 Review of Systems ROS Statement: Those systems with pertinent positive or pertinent negative responses have been documented in the HPI. ROS Other: All systems not noted in ROS Statement are negative. 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 with surgery/difficulty with incision healing/past cellulitis abdomin, IDDM type II, bronchitis, R lung spontaneous pneumo with surgery, last seizure 2011, hepatitis C with interferon over 6 yrs ago, past IV drug abuse-no drugs for over one year except for one slip/on suboxone, DDD, occasional low back pain, History of Any Multi-Drug Resistant Organisms: None Reported Past Surgical History: Appendectomy, Cholecystectomy Additional Past Surgical History / Comment(s): 2018 lap/laparotomy/partial omenectomy/cystogastrectomy/lysis of adhesions, 2019 open incision hernia repair with mesh-difficulty with incision healing since, EGD, colonoscopy, R lung thorascopy/decortication, bilateral eye RK for vision correction. Past Anesthesia/Blood Transfusion Reactions: No Reported Reaction Past Psychological History: Anxiety, Bipolar, Depression Smoking Status: Current every day smoker Past Alcohol Use History: None Reported Past Drug Use History: None Reported - Past Family History Brother(s) Additional Family Medical History / Comment(s): Chronic alcoholism in 2 brothers Sister(s) Additional Family Medical History / Comment(s): Chronic alcoholism Daughter(s) Family Medical History: No Reported History Additional Family Medical History / Comment(s): One daughter healthy Son(s) Family Medical History: No Reported History Additional Family Medical History / Comment(s): One son healthy Father History Unknown: Yes Family Medical History: AICD/Pacemaker, Myocardial Infarction (DC), Renal Disease Additional Family Medical History / Comment(s): Schizophrenia. Per patient, his father at the age of 59 from renal failure. Mother History Unknown: Yes Family Medical History: Hypertension Additional Family Medical History / Comment(s): HPV General Exam Limitations: no limitations General appearance: alert, in no apparent distress, anxious Head exam: Present: atraumatic, normocephalic, normal inspection Eye exam: Present: normal appearance, PERRL, EOMI. Absent: scleral icterus, conjunctival injection, periorbital swelling ENT exam: Present: normal exam, mucous membranes moist Neck exam: Present: normal inspection. Absent: tenderness, meningismus, lymphadenopathy Respiratory exam: Present: normal lung sounds bilaterally. Absent: respiratory distress, wheezes, rales, rhonchi, stridor Cardiovascular Exam: Present: normal rhythm, tachycardia, normal heart sounds. Absent: systolic murmur, diastolic murmur, rubs, gallop, clicks GI/Abdominal exam: Present: soft, tenderness, guarding, normal bowel sounds. Absent: distended, rebound, rigid Extremities exam: Present: normal inspection, full ROM, normal capillary refill. Absent: tenderness, pedal edema, joint swelling, calf tenderness Back exam: Present: normal inspection Neurological exam: Present: alert, oriented X3, CN II-XII intact Psychiatric exam: Present: normal affect, normal mood Skin exam: Present: warm, dry, intact, normal color. Absent: rash Course Vital Signs 02/16/24 02/16/24 02/16/24 17:56 21:28 22:35 Temperature 98.2 F 97.9 F 97.8 F Pulse Rate 127 H 104 H 138 H Respiratory 18 18 22 Rate Blood Pressure 107/77 102/68 117/82 O2 Sat by Pulse 97 97 99 Oximetry - Reevaluation(s) Reevaluation #1: 02/16/24 21:29 Medical records reviewed Reevaluation #2: 02/16/24 21:29 Patient's pain is improved Reevaluation #3: 02/16/24 21:29 Patient informed of results and need for transfer, he understands Reevaluation #4: Was pt. sent in by a medical professional or institution (, PA, WHEAT FARMER, urgent care, hospital, or correction...) When possible be specific @ -no Did you speak to anyone other than the patient for history (EMS, parent, family, police, friend...)? What history was obtained from this source @ -no Did you review nursing and triage notes (agree or disagree)? Why? @ -agree Are old charts reviewed (outside hosp., previous admission, EMS record, old EKG, old radiological studies, urgent care reports/EKG's, correction records)? Report findings @ -yes Differential Diagnosis (chest pain, altered mental status, abdominal pain women, abdominal pain men, vaginal bleeding, weakness, fever, dyspnea, syncope, headache, dizziness, GI bleed, back pain, seizure, CVA, palpatations, mental health, musculoskeletal)? @ -prior EKG interpreted by me (3pts min.). @ -yes X-rays interpreted by me (1pt min.). @ -no CT interpreted by me (1pt min.). @ -Yes positive bleeding from pancreatic pseudocyst GI bleed U/S interpreted by me (1pt. min.). @ -no What testing was considered but not performed or refused? (CT, X-rays, U/S, labs)? Why? @ -none What meds were considered but not given or refused? Why? @ -none Did you discuss the management of the patient with other professionals (professionals i.e. , PA, WHEAT FARMER, lab, RT, psych nurse, social media marketer, real estate lawyer, teacher, staff mine warfare officer, director case management)? Give summary @ -no Was smoking cessation discussed for >3mins.? @ -no Was critical care preformed (if so, how long)? @ -yes31 Were there social determinants of health that impacted care today? How? (Homelessness, low income, unemployed, alcoholism, drug addiction, transportation, low edu. Level, literacy, decrease access to med. care, detention, rehab)? @ -none Was there de-escalation of care discussed even if they declined (Discuss DNR or withdrawal of care, Hospice)? DNR status @ -no What co-morbidities impacted this encounter? (DM, HTN, Smoking, COPD, CAD, Cancer, CVA, ARF, Chemo, Hep., AIDS, mental health diagnosis, sleep apnea, morbid obesity)? @ -none Was patient admitted / discharged? Hospital course, mention meds given and route, prescriptions, significant lab abnormalities, going to OR and other pertinent info. @ - 48 male to ER for evaluation patient presents for epigastric abdominal pain history of pancreatic pseudocyst from chronic pancreatitis and does appear to have bleeding into the pseudocyst with possible communication with his stomach. Patient had been vomiting of blood and blood in the stool Transferred to inpatient hospitalization for GI Undiagnosed new problem with uncertain prognosis? @ -no Drug Therapy requiring intensive monitoring for toxicity (Heparin, Nitro, Insulin, Cardizem)? @ -no Were any procedures done? @ -no Diagnosis/symptom? @ -acute bleeding acute bleeding into pancreatic pseudocyst, GI bleed Acute, or Chronic, or Acute on Chronic? @ -Acute Uncomplicated (without systemic symptoms) or Complicated (systemic symptoms)? @ -Complicated Side effects of treatment? @ -no Exacerbation, Progression, or Severe Exacerbation? @ -exacerbation Poses a threat to life or bodily function? How? (Chest pain, USA, DC, pneumonia, PE, COPD, DKA, ARF, appy, cholecystitis, CVA, Diverticulitis, Homicidal, Suicidal, threat to staff... and all critical care pts) @ -yes significant Reevaluation #5: Differential Abdominal Pain Men: Appendicitis, cholecystitis, diverticulosis, ischemic bowel, pancreatitis, hep atitis, UTI, gastroenteritis, AAA, incarcerated hernia, bowel obstruction, constipation, inflammatory bowel, hepatitis, peptic ulcer disease, splenic infarction, perforated viscus, testicular torsion, this is not meant to be an all-inclusive list - Consultations Consultation #1: Spoke with GI at our hospital who does recommend transfer of this patient Medical Decision Making - Medical Decision Making 48 male to ER for evaluation patient presents for epigastric abdominal pain history of pancreatic pseudocyst from chronic pancreatitis and does appear to have bleeding into the pseudocyst with possible communication with his stomach. Patient had been vomiting of blood and blood in the stool - Lab Data Result diagrams: 02/16/24 19:06 02/16/24 19:12 Lab Results 02/16/24 02/16/24 02/16/24 Range/Units 19:06 19:12 19:12 WBC 17.4 H (3.8-10.6) k/uL RBC 4.84 (4.30-5.90) m/uL Hgb 13.4 (13.0-17.5) gm/dL Hct 40.7 (39.0-53.0) % MCV 84.1 (80.0-100.0) fL MCH 27.6 (25.0-35.0) pg MCHC 32.9 (31.0-37.0) g/dL RDW 13.4 (11.5-15.5) % Plt Count 187 (150-450) k/uL MPV 10.1 Neutrophils % 75 % Lymphocytes % 18 % Monocytes % 5 % Eosinophils % 1 % Basophils % 0 % Neutrophils # 13.0 H (1.3-7.7) k/uL Lymphocytes # 3.1 (1.0-4.8) k/uL Monocytes # 0.9 (0-1.0) k/uL Eosinophils # 0.2 (0-0.7) k/uL Basophils # 0.1 (0-0.2) k/uL APTT 24.3 (22.0-30.0) sec Sodium 136 L (137-145) mmol/L Potassium 4.5 (3.5-5.1) mmol/L Chloride 100 (98-107) mmol/L Carbon Dioxide 28 (22-30) mmol/L Anion Gap 8 mmol/L BUN 26 H (9-20) mg/dL Creatinine 0.74 (0.66-1.25) mg/dL Est GFR (CKD-EPI)AfAm >90 (>60 ml/min/1.73 sqM) Est GFR (CKD-EPI)NonAf >90 (>60 ml/min/1.73 sqM) Glucose 224 H (74-99) mg/dL Plasma Lactic Acid Mynor (0.7-2.0) mmol/L Calcium 9.2 (8.4-10.2) mg/dL Magnesium 1.7 (1.6-2.3) mg/dL Total Bilirubin 0.8 (0.2-1.3) mg/dL AST 23 (17-59) U/L ALT 27 (4-49) U/L Alkaline Phosphatase 131 H (38-126) U/L Ammonia (<30) umol/L Troponin I (0.000-0.034) ng/mL Total Protein 6.7 (6.3-8.2) g/dL Albumin 4.2 (3.5-5.0) g/dL Lipase 89 (23-300) U/L Blood Type Blood Type Recheck Bld Type Recheck Status Antibody Screen Spec Expiration Date 02/16/24 02/16/24 02/16/24 Range/Units 19:12 19:12 20:45 WBC (3.8-10.6) k/uL RBC (4.30-5.90) m/uL Hgb (13.0-17.5) gm/dL Hct (39.0-53.0) % MCV (80.0-100.0) fL MCH (25.0-35.0) pg MCHC (31.0-37.0) g/dL RDW (11.5-15.5) % Plt Count (150-450) k/uL MPV Neutrophils % % Lymphocytes % % Monocytes % % Eosinophils % % Basophils % % Neutrophils # (1.3-7.7) k/uL Lymphocytes # (1.0-4.8) k/uL Monocytes # (0-1.0) k/uL Eosinophils # (0-0.7) k/uL Basophils # (0-0.2) k/uL APTT (22.0-30.0) sec Sodium (137-145) mmol/L Potassium (3.5-5.1) mmol/L Chloride (98-107) mmol/L Carbon Dioxide (22-30) mmol/L Anion Gap mmol/L BUN (9-20) mg/dL Creatinine (0.66-1.25) mg/dL Est GFR (CKD-EPI)AfAm (>60 ml/min/1.73 sqM) Est GFR (CKD-EPI)NonAf (>60 ml/min/1.73 sqM) Glucose (74-99) mg/dL Plasma Lactic Acid Mynor 1.4 (0.7-2.0) mmol/L Calcium (8.4-10.2) mg/dL Magnesium (1.6-2.3) mg/dL Total Bilirubin (0.2-1.3) mg/dL AST (17-59) U/L ALT (4-49) U/L Alkaline Phosphatase (38-126) U/L Ammonia <9 (<30) umol/L Troponin I 0.038 H* (0.000-0.034) ng/mL Total Protein (6.3-8.2) g/dL Albumin (3.5-5.0) g/dL Lipase (23-300) U/L Blood Type O Positive Blood Type Recheck O Pos Bld Type Recheck Status No Antibody Screen NEGATIVE Spec Expiration Date 02/19/20242344 - Radiology Data Radiology results: report reviewed (CT abdomen pelvis is positive bleeding into the pancreatic pseudocyst), image reviewed Critical Care Time Critical Care Time: Yes Total Critical Care Time: 31 Disposition Clinical Impression: UGIB (upper gastrointestinal bleed), Pancreatic pseudocyst Disposition: OTHER INSTITUTION NOT DEFINED Condition: Serious Is patient prescribed a controlled substance at d/c from ED?: No Referrals: Marialuisa Espinoza MD [Primary Care Provider] - 1-2 days Time of Disposition: 22:00 - Out of Hospital Transfer - Req. Specs Out of Hospital Transfer - Requested Specifics: Other Emergency Center ([facility])
[2024-02-16 19:21] LABS: Basophils # (A) 0.1 k/uL (0-0.2); Basophils % (A) 0 %; Eosinophils # (A) 0.2 k/uL (0-0.7); Eosinophils % (A) 1 %; HCT 40.7 % (39.0-53.0); HGB 13.4 gm/dL (13.0-17.5); Lymphocytes # (A) 3.1 k/uL (1.0-4.8); Lymphocytes % (A) 18 %; MCH 27.6 pg (25.0-35.0); MCHC 32.9 g/dL (31.0-37.0); MCV 84.1 fL (80.0-100.0); Mean Platelet Volume 10.1; Monocytes # (A) 0.9 k/uL (0-1.0); Monocytes % (A) 5 %; Neutrophils % (A) 75 %; Platelet Count 187 k/uL (150-450); RBC 4.84 m/uL (4.30-5.90); RDW 13.4 % (11.5-15.5); WBC 17.4 k/uL (3.8-10.6)
[2024-02-16] MEDS: ONDANSETRON 4 MG/2 ML VIAL IVP STA (19:25)
[2024-02-16] MEDS: HYDROmorphone 0.5 MG/0.5 ML SYRINGE IVP STA (19:26)
[2024-02-16] MEDS: SODIUM CHLORIDE 0.9% 1,000 ML IV STA (19:26)
[2024-02-16] MEDS: PANTOPRAZOLE 40 MG/10 ML VIAL IVP STA (19:26)
[2024-02-16 19:28] LABS: Lactic Acid, Venous 1.4 mmol/L (0.7-2.0)
[2024-02-16 19:31] LABS: ALT 27 U/L (4-49); AST 23 U/L (17-59); African American GFR (CKD) >90 (>60 ml/min/1.73 sqM); Albumin 4.2 g/dL (3.5-5.0); Alkaline Phosphatase 131 U/L (38-126); Anion Gap 8 mmol/L; Blood Urea Nitrogen 26 mg/dL (9-20); Calcium 9.2 mg/dL (8.4-10.2); Carbon Dioxide 28 mmol/L (22-30); Chloride 100 mmol/L (98-107); Glucose 224 mg/dL (74-99); Lipase 89 U/L (23-300); Magnesium 1.7 mg/dL (1.6-2.3); Non-African American GFR(CKD) >90 (>60 ml/min/1.73 sqM); Potassium 4.5 mmol/L (3.5-5.1); Sodium 136 mmol/L (137-145); Total Bilirubin 0.8 mg/dL (0.2-1.3); Total Protein 6.7 g/dL (6.3-8.2)
--- NOTE | 2024-02-16 20:40 | CT ---
EXAMINATION TYPE: CT abdomen pelvis w con CT DLP: 1695.3 mGycm, Automated exposure control for dose reduction was used. DATE OF EXAM: 02/16/2024 8:07 PM COMPARISON: CT 01/22/2021, 09/25/2023 CLINICAL INDICATION: Male, 48 years old with history of pain; Pt c/o severe abdominal pain, blood in stool, and blood in vomit. States pain began yesterday around 10:00, then the bleeding began today a round 0400. No hx of GI bleeding. TECHNIQUE: Axial CT abdomen pelvis w con;Sagittal and coronal reformats were created on a separate w orkstation. Contrast used:100ml mL of Isovue 300 with IV Contrast, (none if empty) Oral contrast used: without Oral Contrast (none if empty) FINDINGS: LOWER CHEST: Unremarkable ABDOMEN LIVER: Unremarkable GALLBLADDER AND BILE DUCTS: Unremarkable. PANCREAS: Abnormal appearance of the pancreas body and tail with nonvisualization. Findings suggest p rior pancreatitis with necrosis. Soft tissue density does closely approximate the gastric antrum [place] uring 5.4 x 3.9 cm. This does appear to extend into the gastric wall as seen on multiple prior's. The re is hyperemia of the gastric antrum/duodenum best appreciated on series 202 image 45. There is high density blush of contrast that follows blood pool within this prior pseudocyst series 201 image 34 c oncerning for active hemorrhage. SPLEEN: Scattered calcified granulomas. ADRENAL GLANDS: Unremarkable. KIDNEYS AND URETERS: No evidence of hydronephrosis or renal calculus. The ureters are unremarkable. PELVIS BLADDER: Unremarkable REPRODUCTIVE: Unremarkable. ABDOMEN & PELVIS STOMACH AND BOWEL: No evidence of bowel obstruction. PERITONEUM/RETROPERITONEUM: No evidence of pneumoperitoneum or free fluid. VASCULATURE: No evidence of aortic aneurysm. MUSCULOSKELETAL: No acute osseous abnormalities LYMPH NODES: No gross evidence for lymphadenopathy. Also prominent lymph nodes are seen up upper abdo men not significantly changed from prior likely reactive to prior pancreatitis changes. SOFT TISSUE/ABDOMINAL WALL: Bilateral fat-containing inguinal hernias. IMPRESSION: Enlarging soft tissue density area in the mid pancreatic body with upstream dilation of the pancreati c duct. There is high density blush of contrast within this on arterial phase which becomes more inco nspicuous on delayed imaging. Findings favor bleeding into this area of pseudocyst. Consider GI consu ltation with upper endoscopy to evaluate the stomach near the gastric antrum/duodenum which demonstra alejo hyperemia and possible communication with this area of hemorrhage. Findings communicated to Dr. David Fitzpatrick DO on 02/16/2024 8:[address] Rudy Mora. [facility], , 02/16/2024 8:37 PM
[2024-02-16] MEDS: HYDROmorphone 1 MG/ML 1 ML SYRINGE IVP STA (22:26)
[2024-02-16 22:50] VITALS: BP 117/82; PULSE 138; RESP 22; TEMP 97.8
== END 2024-02-16 22:54 | disposition other institution (70) ==
LOC: EC 17:54
DX: K92.2 Gastrointestinal hemorrhage, unspecified (principal); K86.3 Pseudocyst of pancreas; F17.200 Nicotine dependence, unspecified, uncomplicated; Z88.5 Allergy status to narcotic agent; Z88.8 Allergy status to other drugs, medicaments and biological substances
CPT/HCPCS: 99291; 96374; 96375 ×2; 96376; 96361; 36415; 86900; 86901; 80053; 82140; 83605; 83690; 83735; 84484; 85025; 85730; 86850; 74177; J2405; J1171 ×2; Q9967; J2470

== ENCOUNTER 2024-03-21 19:24 | Emergency (ER) | payer MEDICARE ==
--- NOTE | 2024-03-21 19:42 | ED ---
Abdominal Pain HPI - General Chief Complaint: Abdominal Pain Stated Complaint: Abd Pain Time Seen by Provider: 03/21/24 19:40 Source: patient, RN notes reviewed, old records reviewed Mode of arrival: ambulatory Limitations: no limitations - History of Present Illness Initial Comments: This is a 48-year-old male to the ER for evaluation long history of pancreatitis and GI bleed coming in for abdominal pain today severe like prior abdominal pain issues without GI bleeding today MD Complaint: abdominal pain -: days(s) Location: diffuse, epigastric Radiation: epigastric Migration to: epigastric Severity: moderate Severity scale (1-10): 5 Quality: aching Consistency: constant Improves With: nothing Worsens With: nothing Associated Symptoms: nausea, vomiting Treatments Prior to Arrival: other (0) - Related Data Home Medications Medication Instructions Recorded Confirmed Mirtazapine [Remeron] 15 mg PO HS 11/23/16 09/25/23 lamoTRIgine [LaMICtal] 100 mg PO BID 03/13/17 09/25/23 OLANZapine [ZyPREXA] 10 mg PO HS 03/28/18 09/25/23 Buprenorphine-Nalox 8-2 mg Tab 1 tab SL BID 01/27/20 09/25/23 [Suboxone 8-2 mg Tab] Omeprazole 20 mg PO BID 07/21/20 09/25/23 Ergocalciferol (Vitamin D2) 1,250 mcg PO SA 09/25/23 09/25/23 [Drisdol (50,000 Iu)] Insulin Aspart [NovoLOG Flexpen] 10 units SQ AC-TID 09/25/23 09/25/23 Insulin Glargine,Hum.rec.anlog 15 units SQ HS 09/25/23 09/25/23 [Lantus Solostar Pen] Levothyroxine Sodium [Synthroid] 25 mcg PO DAILY 09/25/23 09/25/23 Phentermine HCl [Adipex-P] 37.5 mg PO DAILY 09/25/23 09/25/23 Semaglutide [Ozempic] 1 mg SQ FR 09/25/23 09/25/23 Allergies Allergy/AdvReac Type Severity Reaction Status Date / Time codeine Allergy Swelling Verified 03/21/24 19:39 furosemide [From Lasix] Allergy Rash/Hives Verified 03/21/24 19:39 haloperidol [From Haldol] Allergy Unknown Verified 03/21/24 19:39 prochlorperazine Allergy Swelling Verified 03/21/24 19:39 Review of Systems ROS Statement: Those systems with pertinent positive or pertinent negative responses have been documented in the HPI. ROS Other: All systems not noted in ROS Statement are negative. 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 with surgery/difficulty with incision healing/past cellulitis abdomin, IDDM type II, bronchitis, R lung spontaneous pneumo with surgery, last seizure 2011, hepatitis C with interferon over 6 yrs ago, past IV drug abuse-no drugs for over one year except for one slip/on suboxone, DDD, occasional low back pain, History of Any Multi-Drug Resistant Organisms: None Reported Past Surgical History: Appendectomy, Cholecystectomy Additional Past Surgical History / Comment(s): 2018 lap/laparotomy/partial omenectomy/cystogastrectomy/lysis of adhesions, 2019 open incision hernia repair with mesh-difficulty with incision healing since, EGD, colonoscopy, R lung thorascopy/decortication, bilateral eye RK for vision correction.surgery with spleen. Past Anesthesia/Blood Transfusion Reactions: No Reported Reaction Past Psychological History: Anxiety, Bipolar, Depression Smoking Status: Current every day smoker Past Alcohol Use History: None Reported Past Drug Use History: None Reported - Past Family History Brother(s) Additional Family Medical History / Comment(s): Chronic alcoholism in 2 brothers Sister(s) Additional Family Medical History / Comment(s): Chronic alcoholism Daughter(s) Family Medical History: No Reported History Additional Family Medical History / Comment(s): One daughter healthy Son(s) Family Medical History: No Reported History Additional Family Medical History / Comment(s): One son healthy Father History Unknown: Yes Family Medical History: AICD/Pacemaker, Myocardial Infarction ([place]), Renal Disease Additional Family Medical History / Comment(s): Schizophrenia. Per patient, his father at the age of 59 from renal failure. Mother History Unknown: Yes Family Medical History: Hypertension Additional Family Medical History / Comment(s): HPV General Exam Limitations: no limitations General appearance: alert, in no apparent distress Head exam: Present: atraumatic, normocephalic, normal inspection Eye exam: Present: normal appearance, PERRL, EOMI. Absent: scleral icterus, conjunctival injection, periorbital swelling ENT exam: Present: normal exam, mucous membranes moist Neck exam: Present: normal inspection. Absent: tenderness, meningismus, lymphadenopathy Respiratory exam: Present: normal lung sounds bilaterally. Absent: respiratory distress, wheezes, rales, rhonchi, stridor Cardiovascular Exam: Present: regular rate, normal rhythm, normal heart sounds. Absent: systolic murmur, diastolic murmur, rubs, gallop, clicks GI/Abdominal exam: Present: soft, normal bowel sounds. Absent: distended, tenderness, guarding, rebound, rigid Extremities exam: Present: normal inspection, full ROM, normal capillary refill. Absent: tenderness, pedal edema, joint swelling, calf tenderness Back exam: Present: normal inspection Neurological exam: Present: alert, oriented X3, CN II-XII intact Psychiatric exam: Present: normal affect, normal mood Skin exam: Present: warm, dry, intact, normal color. Absent: rash Course Vital Signs 03/21/24 19:36 Temperature 98.2 F Pulse Rate 111 H Respiratory 20 Rate Blood Pressure 121/73 O2 Sat by Pulse 97 Oximetry - Reevaluation(s) Reevaluation #1: 03/21/24 19:57 Medical records reviewed Reevaluation #2: 03/21/24 21:55 Patient has adequate pain control Reevaluation #3: 03/21/24 21:55 Patient informed of results and questions answered Reevaluation #4: 03/21/24 19:57 Was pt. sent in by a medical professional or institution (, PA, TRAIN CONTROL TECHNICIAN, urgent care, hospital, or fpc...) When possible be specific @ -no Did you speak to anyone other than the patient for history (EMS, parent, family, police, friend...)? What history was obtained from this source @ -no Did you review nursing and triage notes (agree or disagree)? Why? @ -agree Are old charts reviewed (outside hosp., previous admission, EMS record, old EKG, old radiological studies, urgent care reports/EKG's, fpc records)? Report findings @ -yes Differential Diagnosis (chest pain, altered mental status, abdominal pain women, abdominal pain men, vaginal bleeding, weakness, fever, dyspnea, syncope, headache, dizziness, GI bleed, back pain, seizure, CVA, palpatations, mental he alth, musculoskeletal)? @ -prior EKG interpreted by me (3pts min.). @ -yes X-rays interpreted by me (1pt min.). @ -yes negative for acute disease CT interpreted by me (1pt min.). @ -no U/S interpreted by me (1pt. min.). @ -no What testing was considered but not performed or refused? (CT, X-rays, U/S, labs)? Why? @ -none What meds were considered but not given or refused? Why? @ -none Did you discuss the management of the patient with other professionals (professionals i.e. , PA, TRAIN CONTROL TECHNICIAN, lab, RT, psych nurse, perinatal social worker, senior storage administrator, teacher, mortgage loan officer originator, watch case polisher)? Give summary @ -no Was smoking cessation discussed for >3mins.? @ -no Was critical care preformed (if so, how long)? @ -no Were there social determinants of health that impacted care today? How? (Homelessness, low income, unemployed, alcoholism, drug addiction, transportation, low edu. Level, literacy, decrease access to med. care, snf, rehab)? @ -none Was there de-escalation of care discussed even if they declined (Discuss DNR or withdrawal of care, Hospice)? DNR status @ -no What co-morbidities impacted this encounter? (DM, HTN, Smoking, COPD, CAD, Cancer, CVA, ARF, Chemo, Hep., AIDS, mental health diagnosis, sleep apnea, morbid obesity)? @ -none Was patient admitted / discharged? Hospital course, mention meds given and route, prescriptions, significant lab abnormalities, going to OR and other pe rtinent info. @ - Undiagnosed new problem with uncertain prognosis? @ -no Drug Therapy requiring intensive monitoring for toxicity (Heparin, Nitro, Insulin, Cardizem)? @ -no Were any procedures done? @ -no Diagnosis/symptom? @ - Acute, or Chronic, or Acute on Chronic? @ -Acute Uncomplicated (without systemic symptoms) or Complicated (systemic symptoms)? @ -Complicated Side effects of treatment? @ -no Exacerbation, Progression, or Severe Exacerbation? @ -exacerbation Poses a threat to life or bodily function? How? (Chest pain, [place], [place], pneumonia, PE, COPD, DKA, ARF, appy, cholecystitis, CVA, Diverticulitis, Homicidal, Suicidal, threat to staff... and all critical care pts) @ -yes Reevaluation #5: Differential Abdominal Pain Men: Appendicitis, cholecystitis, diverticulosis, ischemic bowel, pancreatitis, hepatitis, UTI, gastroenteritis, AAA, incarcerated hernia, bowel obstruction, constipation, inflammatory bowel, hepatitis, peptic ulcer disease, splenic infarction, perforated viscus, testicular torsion, this is not meant to be an all-inclusive list Medical Decision Making - Medical Decision Making 48 Male has adequate pain control currently. CT scan negative lab testing negative patient can be discharged home - Lab Data Result diagrams: 03/21/24 19:41 03/21/24 19:41 Lab Results 03/21/24 03/21/24 03/21/24 Range/Units 19:41 19:41 19:41 WBC 10.2 (3.8-10.6) k/uL RBC 4.75 (4.30-5.90) m/uL Hgb 11.8 L (13.0-17.5) gm/dL Hct 39.0 (39.0-53.0) % MCV 82.1 (80.0-100.0) fL MCH 24.8 L (25.0-35.0) pg MCHC 30.3 L (31.0-37.0) g/dL RDW 14.8 (11.5-15.5) % Plt Count 180 (150-450) k/uL MPV 9.8 Neutrophils % 67 % Lymphocytes % 20 % Monocytes % 6 % Eosinophils % 5 % Basophils % 0 % Neutrophils # 6.9 (1.3-7.7) k/uL Lymphocytes # 2.0 (1.0-4.8) k/uL Monocytes # 0.6 (0-1.0) k/uL Eosinophils # 0.5 (0-0.7) k/uL Basophils # 0.0 (0-0.2) k/uL Hypochromasia Marked PT 11.2 (10.0-12.5) sec INR 1.0 (<1.2) APTT 27.1 (22.0-30.0) sec Sodium 139 (137-145) mmol/L Potassium 3.9 (3.5-5.1) mmol/L Chloride 106 (98-107) mmol/L Carbon Dioxide 22 (22-30) mmol/L Anion Gap 11 mmol/L BUN 16 (9-20) mg/dL Creatinine 0.77 (0.66-1.25) mg/dL Est GFR (CKD-EPI)AfAm >90 (>60 ml/min/1.73 sqM) Est GFR (CKD-EPI)NonAf >90 (>60 ml/min/1.73 sqM) Glucose 238 H (74-99) mg/dL Plasma Lactic Acid Mynor (0.7-2.0) mmol/L Calcium 9.2 (8.4-10.2) mg/dL Total Bilirubin 0.3 (0.2-1.3) mg/dL AST 49 (17-59) U/L ALT 40 (4-49) U/L Alkaline Phosphatase 169 H (38-126) U/L Total Protein 7.1 (6.3-8.2) g/dL Albumin 4.5 (3.5-5.0) g/dL Amylase 50 (30-110) U/L Lipase 114 (23-300) U/L Serum Alcohol <10 mg/dL 03/21/24 Range/Units 19:41 WBC (3.8-10.6) k/uL RBC (4.30-5.90) m/uL Hgb (13.0-17.5) gm/dL Hct (39.0-53.0) % MCV (80.0-100.0) fL MCH (25.0-35.0) pg MCHC (31.0-37.0) g/dL RDW (11.5-15.5) % Plt Count (150-450) k/uL MPV Neutrophils % % Lymphocytes % % Monocytes % % Eosinophils % % Basophils % % Neutrophils # (1.3-7.7) k/uL Lymphocytes # (1.0-4.8) k/uL Monocytes # (0-1.0) k/uL Eosinophils # (0-0.7) k/uL Basophils # (0-0.2) k/uL Hypochromasia PT (10.0-12.5) sec INR (<1.2) APTT (22.0-30.0) sec Sodium (137-145) mmol/L Potassium (3.5-5.1) mmol/L Chloride (98-107) mmol/L Carbon Dioxide (22-30) mmol/L Anion Gap mmol/L BUN (9-20) mg/dL Creatinine (0.66-1.25) mg/dL Est GFR (CKD-EPI)AfAm (>60 ml/min/1.73 sqM) Est GFR (CKD-EPI)NonAf (>60 ml/min/1.73 sqM) Glucose (74-99) mg/dL Plasma Lactic Acid Mynor 2.8 H* (0.7-2.0) mmol/L Calcium (8.4-10.2) mg/dL Total Bilirubin (0.2-1.3) mg/dL AST (17-59) U/L ALT (4-49) U/L Alkaline Phosphatase (38-126) U/L Total Protein (6.3-8.2) g/dL Albumin (3.5-5.0) g/dL Amylase (30-110) U/L Lipase (23-300) U/L Serum Alcohol mg/dL - Radiology Data Radiology results: report reviewed (CT abdomen pelvis is negative for acute disease), image reviewed Disposition Clinical Impression: Abdominal colic, Chronic pancreatitis, Abdominal pain Disposition: HOME SELF-CARE Condition: Good Instructions (If sedation given, give patient instructions): Abdominal Pain (ED) Is patient prescribed a controlled substance at d/c from ED?: No Referrals: Marialuisa Espinoza MD [Primary Care Provider] - 1-2 days Time of Disposition: 21:30
[2024-03-21 20:10] LABS: Basophils % (A) 0 %; Eosinophils # (A) 0.5 k/uL (0-0.7); Eosinophils % (A) 5 %; HGB 11.8 gm/dL (13.0-17.5); Hypochromasia Marked; Lymphocytes % (A) 20 %; MCH 24.8 pg (25.0-35.0); MCHC 30.3 g/dL (31.0-37.0); MCV 82.1 fL (80.0-100.0); Mean Platelet Volume 9.8; Monocytes # (A) 0.6 k/uL (0-1.0); Monocytes % (A) 6 %; Neutrophils # (A) 6.9 k/uL (1.3-7.7); Neutrophils % (A) 67 %; Platelet Count 180 k/uL (150-450); RBC 4.75 m/uL (4.30-5.90); RDW 14.8 % (11.5-15.5); WBC 10.2 k/uL (3.8-10.6)
[2024-03-21] MEDS: SODIUM CHLORIDE 0.9% 1,000 ML IV STA (20:22)
[2024-03-21 20:23] LABS: ALT 40 U/L (4-49); AST 49 U/L (17-59); African American GFR (CKD) >90 (>60 ml/min/1.73 sqM); Albumin 4.5 g/dL (3.5-5.0); Alcohol <10 mg/dL; Alkaline Phosphatase 169 U/L (38-126); Amylase 50 U/L (30-110); Anion Gap 11 mmol/L; Blood Urea Nitrogen 16 mg/dL (9-20); Calcium 9.2 mg/dL (8.4-10.2); Carbon Dioxide 22 mmol/L (22-30); Chloride 106 mmol/L (98-107); Glucose 238 mg/dL (74-99); Lipase 114 U/L (23-300); Non-African American GFR(CKD) >90 (>60 ml/min/1.73 sqM); Partial Thromboplastin Time 27.1 sec (22.0-30.0); Potassium 3.9 mmol/L (3.5-5.1); Prothrombin Time 11.2 sec (10.0-12.5); Sodium 139 mmol/L (137-145); Total Bilirubin 0.3 mg/dL (0.2-1.3); Total Protein 7.1 g/dL (6.3-8.2)
[2024-03-21] MEDS: LORazepam 2 MG/ML INJ IV STA (20:26)
[2024-03-21] MEDS: PANTOPRAZOLE 40 MG/10 ML VIAL IVP STA (20:26)
[2024-03-21] MEDS: ONDANSETRON 4 MG/2 ML VIAL IVP STA (20:26)
[2024-03-21] MEDS: HYDROmorphone 1 MG/ML 1 ML SYRINGE IVP STA (20:26)
[2024-03-21] MEDS: SODIUM CHLORIDE 0.9% 500 ML 500 ML IV STA (20:29)
--- NOTE | 2024-03-21 21:15 | CT ---
EXAMINATION TYPE: CT abdomen pelvis w con DATE OF EXAM: 03/21/2024 8:53 PM COMPARISON: Multiple prior CT/pelvis studies, most recently dated 02/16/2024. CLINICAL INDICATION: Male, 48 years old with history of abdominal pain; Left side abdominal pain. TECHNIQUE: Axial CT abdomen pelvis w con;Sagittal and coronal reformats were created on a separate w orkstation. Contrast used:100 ml mL of Isovue 300 with IV Contrast, Oral contrast used: without Oral Contrast (none if empty) CT DLP: 2190.2 mGycm, Automated exposure control for dose reduction was used. FINDINGS: Partially visualized lower lung zones. No acute pathology. Calcified granuloma in the partially visua lized right middle lobe. Cirrhotic liver morphology. Portal veins appear patent. Gallbladder surgical ly absent. Splenomegaly measuring 16.8 cm in AP dimension compared to approximately 13.3 cm previousl y it measured in a similar fashion.. No suspicious adrenal gland nodule. Coil embolization material i n the region of the pancreatic body. Severe streak artifact limits evaluation of the surrounding panc reatic parenchyma. Within limitations, no evidence of active arterial bleeding. No new large peripanc reatic fluid collections. No abnormal biliary ductal dilatation. Nonspecific mesenteric lymph nodes i n the superior abdomen. No pathologic retroperitoneal lymphadenopathy. Imaging through the gastrointestinal tract demonstrates normal colonic stool burden. No evidence of s mall bowel obstruction. Calcified atherosclerotic disease of the abdominal aorta without aneurysm dil atation. Proximal celiac artery and SMA appear patent. Kidneys unremarkable. No significant free flui d or free air in the abdomen/pelvis. No acute osseous abnormality. IMPRESSION: 1. No acute abnormality in the abdomen/pelvis. Coil embolization material now noted in the region of the pancreatic body along the course of a celiac artery branch. No evidence of active bleeding or ne w peripancreatic fluid collections within the limitations described above. 2. Increasing splenomegaly compared to prior study. [facility], , 03/21/2024 9:13 PM
[2024-03-21] MEDS ORDERED: ACET/COD 300 MG/30 MG STARTER PACK 6 TAB BTL PO STA (21:54)
[2024-03-21] MEDS: ONDANSETRON 4 MG ODT STARTER PACK 2 TAB BTL PO STA (22:04)
[2024-03-21] MEDS: traMADol 50 MG STARTER PACK 3 TAB BTL PO STA (22:04)
[2024-03-21 22:10] VITALS: BP 120/74; PULSE 94; RESP 18; TEMP 98
== END 2024-03-21 22:10 | disposition home or self-care (01) ==
LOC: EC 19:24
DX: K86.1 Other chronic pancreatitis (principal); F17.200 Nicotine dependence, unspecified, uncomplicated; Z88.5 Allergy status to narcotic agent; Z88.8 Allergy status to other drugs, medicaments and biological substances; Z90.49 Acquired absence of other specified parts of digestive tract
CPT/HCPCS: 36415; 80053; 82150; 83605; 83690; 85025; 85610; 85730; 74177; 99284; 96374; 96375 ×3; 96361 ×2; G0480; J2060; J2405; J1171; S0119; Q9967; J2470; 80320

== ENCOUNTER 2024-07-08 07:32 | Emergency (ER) | payer MEDICARE ==
[2024-07-08 07:39] VITALS: TEMP 98.1
--- NOTE | 2024-07-08 07:50 | ED ---
Abdominal Pain HPI - General Chief Complaint: Abdominal Pain Stated Complaint: abd pain Time Seen by Provider: 07/08/24 07:41 Source: patient, RN notes reviewed Mode of arrival: ambulatory Limitations: no limitations - History of Present Illness Initial Comments: 49-year-old male with history of diabetes, COPD, chronic pancreatitis presenting to the emergency department for chief complaint of left upper quadrant and epigastric abdominal pain that started at 2000 yesterday evening. Patient states that pain feels similar as when he has had pancreatitis in the past. He states that pain radiates into his back. He endorses nausea with no reported emesis. Reports chills with no reported fevers. Denies cough, congestion, rhinorrhea, diarrhea, urinary complaints. He took Motrin yesterday afternoon. Denies chest pain, dyspnea, peripheral edema. 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 - Related Data Home Medications Medication Instructions Recorded Confirmed Mirtazapine [Remeron] 15 mg PO HS 11/23/16 09/25/23 lamoTRIgine [LaMICtal] 100 mg PO BID 03/13/17 09/25/23 OLANZapine [ZyPREXA] 10 mg PO HS 03/28/18 09/25/23 Buprenorphine-Nalox 8-2 mg Tab 1 tab SL BID 01/27/20 09/25/23 [Suboxone 8-2 mg Tab] Omeprazole 20 mg PO BID 07/21/20 09/25/23 Ergocalciferol (Vitamin D2) 1,250 mcg PO SA 09/25/23 09/25/23 [Drisdol (50,000 Iu)] Insulin Aspart [NovoLOG Flexpen] 10 units SQ AC-TID 09/25/23 09/25/23 Insulin Glargine,Hum.rec.anlog 15 units SQ HS 09/25/23 09/25/23 [Lantus Solostar Pen] Levothyroxine Sodium [Synthroid] 25 mcg PO DAILY 09/25/23 09/25/23 Phentermine HCl [Adipex-P] 37.5 mg PO DAILY 09/25/23 09/25/23 Semaglutide [Ozempic] 1 mg SQ FR 09/25/23 09/25/23 Previous Rx's Medication Instructions Recorded Ondansetron Odt [Zofran Odt] 4 mg PO Q8HR PRN #10 tab 07/08/24 Allergies Allergy/AdvReac Type Severity Reaction Status Date / Time codeine Allergy Swelling Verified 03/21/24 19:39 furosemide [From Lasix] Allergy Rash/Hives Verified 03/21/24 19:39 haloperidol [From Haldol] Allergy Unknown Verified 03/21/24 19:39 prochlorperazine Allergy Swelling Verified 03/21/24 19:39 Review of Systems ROS Statement: Those systems with pertinent positive or pertinent negative responses have been documented in the HPI. ROS Other: All systems not noted in ROS Statement are negative. 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 with surgery/difficulty with incision healing/past cellulitis abdomin, IDDM type II, bronchitis, R lung spontaneous pneumo with surgery, last seizure 2011, hepatitis C with interferon over 6 yrs ago, past IV drug abuse-no drugs for over one year except for one slip/on suboxone, DDD, occasional low back pain, History of Any Multi-Drug Resistant Organisms: None Reported Past Surgical History: Appendectomy, Cholecystectomy Additional Past Surgical History / Comment(s): 2018 lap/laparotomy/partial omenectomy/cystogastrectomy/lysis of adhesions, 2019 open incision hernia repair with mesh-difficulty with incision healing since, EGD, colonoscopy, R lung thorascopy/decortication, bilateral eye RK for vision correction.surgery with spleen. Past Anesthesia/Blood Transfusion Reactions: No Reported Reaction Past Psychological History: Anxiety, Bipolar, Depression Smoking Status: Current every day smoker Past Alcohol Use History: None Reported Past Drug Use History: None Reported - Past Family History Brother(s) Additional Family Medical History / Comment(s): Chronic alcoholism in 2 brothers Sister(s) Additional Family Medical History / Comment(s): Chronic alcoholism Daughter(s) Family Medical History: No Reported History Additional Family Medical History / Comment(s): One daughter healthy Son(s) Family Medical History: No Reported History Additional Family Medical History / Comment(s): One son healthy Father History Unknown: Yes Family Medical History: AICD/Pacemaker, Myocardial Infarction (DC), Renal Disease Additional Family Medical History / Comment(s): Schizophrenia. Per patient, his father at the age of 59 from renal failure. Mother History Unknown: Yes Family Medical History: Hypertension Additional Family Medical History / Comment(s): HPV General Exam Limitations: no limitations Neck exam: Present: normal inspection. Absent: tenderness, meningismus, lymphadenopathy Respiratory exam: Present: normal lung sounds bilaterally. Absent: respiratory distress, wheezes, rales, rhonchi, stridor Cardiovascular Exam: Present: regular rate, normal rhythm, normal heart sounds. Absent: systolic murmur, diastolic murmur, rubs, gallop, clicks GI/Abdominal exam: Present: soft, tenderness (LUQ, epigastric), normal bowel sounds. Absent: distended, guarding, rebound, rigid Extremities exam: Present: normal inspection, full ROM, normal capillary refill. Absent: tenderness, pedal edema, joint swelling, calf tenderness Back exam: Present: normal inspection Course Vital Signs 07/08/24 07/08/24 07:35 08:26 Temperature 98.1 F Pulse Rate 107 H 96 Respiratory 20 14 Rate Blood Pressure 137/83 151/88 O2 Sat by Pulse 98 Oximetry Medical Decision Making - Medical Decision Making Was pt. sent in by a medical professional or institution (, PA, SUPERVISOR CLAIMS, urgent care, hospital, or alf...) When possible be specific @ -No Did you speak to anyone other than the patient for history (EMS, parent, family, police, friend...)? What history was obtained from this source @ -No Did you review nursing and triage notes (agree or disagree)? Why? @ -I reviewed and agree with nursing and triage notes Were old charts reviewed (outside hosp., previous admission, EMS record, old EKG, old radiological studies, urgent care reports/EKG's, alf records)? Report findings @ -CT of the abdomen pelvis with IV contrast completed on 03/21/2024 revealed no acute abnormality in the abdomen or pelvis Differential Diagnosis (chest pain, altered mental status, abdominal pain women, abdominal pain men, vaginal bleeding, weakness, fever, dyspnea, syncope, headache, dizziness, GI bleed, back pain, seizure, CVA, palpatations, mental health, musculoskeletal)? @ -Differential Abdominal Pain Men: Appendicitis, cholecystitis, diverticulosis, ischemic bowel, pancreatitis, hepatitis, UTI, gastroenteritis, AAA, incarcerated hernia, bowel obstruction, constipation, inflammatory bowel, hepatitis, peptic ulcer disease, splenic infarction, perforated viscus, testicular torsion, this is not meant to be an all-inclusive list EKG interpreted by me (3pts min.). @ -Completed at 0743 sinus tachycardia with a ventricular rate of 101, NV interval 151, QRS 96, QTc 408. X-rays interpreted by me (1pt min.). @ -None done CT interpreted by me (1pt min.). @ - CT of the abdomen pelvis with IV contrast no acute intra-abdominal process, increasing splenomegaly U/S interpreted by me (1pt. min.). @ -None done What testing was considered but not performed or refused? (CT, X-rays, U/S, labs)? Why? @ -None What meds were considered but not given or refused? Why? @ -None Did you discuss the management of the patient with other professionals (professionals i.e. , PA, SUPERVISOR CLAIMS, lab, RT, psych nurse, social welfare research worker, tire installer, teacher, stream control officer, case manager specialist)? Give summary @ -No Was smoking cessation discussed for >3mins.? @ -No Was critical care preformed (if so, how long)? @ -No Were there social determinants of health that impacted care today? How? (Homelessness, low income, unemployed, alcoholism, drug addiction, transportation, low edu. Level, literacy, decrease access to med. care, longterm, rehab)? @ -No Was there de-escalation of care discussed even if they declined (Discuss DNR or withdrawal of care, Hospice)? DNR status @ -No What co-morbidities impacted this encounter? (DM, HTN, Smoking, COPD, CAD, Cancer, CVA, ARF, Chemo, Hep., AIDS, mental health diagnosis, sleep apnea, morbid obesity)? @ -None Was patient admitted / discharged? Hospital course, mention meds given and route, prescriptions, significant lab abnormalities, going to OR and other pertinent info. @ -discharged. 49-year-old male presenting with left upper quadrant and epigastric abdominal pain. Patient is stable on arrival. Pain is reproducible on palpation was equal bowel sounds are throughout quadrants. EKG is in sinus rhythm. Patient is provided with fluids, pain medication, Protonix and antiemetics and will undergo laboratory evaluation in addition to CT imaging. Labs remarkable for leukocytosis of 12.7, left shift neutrophils of 9.8, elevated LFTs with an AST of 61, ALT 85, alkaline phosphatase 253. Troponin and coagulation within normal. CT is unremarkable. Patient was informed of today's findings and is stable for discharge with appropriate outpatient follow-up. Provided with outpatient prescription for Zofran. Case discussed with Dr. Franklin Undiagnosed new problem with uncertain prognosis? @ -No Drug Therapy requiring intensive monitoring for toxicity (Heparin, Nitro, Insulin, Cardizem)? @ -No Were any procedures done? @ -No Diagnosis/symptom? @ -abdominal pain Acute, or Chronic, or Acute on Chronic? @ -acute Uncomplicated (without systemic symptoms) or Complicated (systemic symptoms)? @ -uncomplicated Side effects of treatment? @ -No Exacerbation, Progression, or Severe Exacerbation? @ -No Poses a threat to life or bodily function? How? (Chest pain, USA, DC, pneumonia, PE, COPD, DKA, ARF, appy, cholecystitis, CVA, Diverticulitis, Homicidal, Suicidal, threat to staff... and all critical care pts) @ -No - Lab Data Result diagrams: 07/08/24 07:54 07/08/24 07:54 Lab Results 07/08/24 07/08/24 07/08/24 Range/Units 07:54 07:54 07:54 WBC 12.7 H (3.8-10.6) k/uL RBC 5.81 (4.30-5.90) m/uL Hgb 14.1 (13.0-17.5) gm/dL Hct 46.7 (39.0-53.0) % MCV 80.3 (80.0-100.0) fL MCH 24.2 L (25.0-35.0) pg MCHC 30.1 L (31.0-37.0) g/dL RDW 18.3 H (11.5-15.5) % Plt Count 134 L (150-450) k/uL MPV 9.7 Neutrophils % 77 % Lymphocytes % 13 % Monocytes % 5 % Eosinophils % 4 % Basophils % 0 % Neutrophils # 9.8 H (1.3-7.7) k/uL Lymphocytes # 1.6 (1.0-4.8) k/uL Monocytes # 0.6 (0-1.0) k/uL Eosinophils # 0.5 (0-0.7) k/uL Basophils # 0.0 (0-0.2) k/uL Hypochromasia Slight Anisocytosis Slight Microcytosis Slight PT 11.6 (10.0-12.5) sec INR 1.1 (<1.2) APTT 25.4 (22.0-30.0) sec Sodium 136 L (137-145) mmol/L Potassium 4.3 (3.5-5.1) mmol/L Chloride 103 (98-107) mmol/L Carbon Dioxide 22 (22-30) mmol/L Anion Gap 11 mmol/L BUN 18 (9-20) mg/dL Creatinine 0.58 L (0.66-1.25) mg/dL Est GFR (CKD-EPI)AfAm >90 (>60 ml/min/1.73 sqM) Est GFR (CKD-EPI)NonAf >90 (>60 ml/min/1.73 sqM) Glucose 286 H (74-99) mg/dL Plasma Lactic Acid Mynor (0.7-2.0) mmol/L Calcium 9.0 (8.4-10.2) mg/dL Total Bilirubin 0.7 (0.2-1.3) mg/dL AST 61 H (17-59) U/L ALT 85 H (4-49) U/L Alkaline Phosphatase 253 H (38-126) U/L Troponin I (0.000-0.034) ng/mL Total Protein 7.0 (6.3-8.2) g/dL Albumin 4.2 (3.5-5.0) g/dL Amylase 47 (30-110) U/L Lipase 115 (23-300) U/L 07/08/24 07/08/24 Range/Units 07:54 07:54 WBC (3.8-10.6) k/uL RBC (4.30-5.90) m/uL Hgb (13.0-17.5) gm/dL Hct (39.0-53.0) % MCV (80.0-100.0) fL MCH (25.0-35.0) pg MCHC (31.0-37.0) g/dL RDW (11.5-15.5) % Plt Count (150-450) k/uL MPV Neutrophils % % Lymphocytes % % Monocytes % % Eosinophils % % Basophils % % Neutrophils # (1.3-7.7) k/uL Lymphocytes # (1.0-4.8) k/uL Monocytes # (0-1.0) k/uL Eosinophils # (0-0.7) k/uL Basophils # (0-0.2) k/uL Hypochromasia Anisocytosis Microcytosis PT (10.0-12.5) sec INR (<1.2) APTT (22.0-30.0) sec Sodium (137-145) mmol/L Potassium (3.5-5.1) mmol/L Chloride (98-107) mmol/L Carbon Dioxide (22-30) mmol/L Anion Gap mmol/L BUN (9-20) mg/dL Creatinine (0.66-1.25) mg/dL Est GFR (CKD-EPI)AfAm (>60 ml/min/1.73 sqM) Est GFR (CKD-EPI)NonAf (>60 ml/min/1.73 sqM) Glucose (74-99) mg/dL Plasma Lactic Acid Mynor 1.0 (0.7-2.0) mmol/L Calcium (8.4-10.2) mg/dL Total Bilirubin (0.2-1.3) mg/dL AST (17-59) U/L ALT (4-49) U/L Alkaline Phosphatase (38-126) U/L Troponin I <0.012 (0.000-0.034) ng/mL Total Protein (6.3-8.2) g/dL Albumin (3.5-5.0) g/dL Amylase (30-110) U/L Lipase (23-300) U/L Disposition Clinical Impression: Abdominal pain Disposition: HOME SELF-CARE Condition: Good Instructions (If sedation given, give patient instructions): Abdominal Pain (ED) Additional Instructions: Please return to the Emergency Department if symptoms worsen or any other concerns. Recommend that you follow-up with GI specialist for further evaluation. Prescriptions: Ondansetron Odt [Zofran Odt] 4 mg PO Q8HR PRN #10 tab PRN Reason: Nausea Is patient prescribed a controlled substance at d/c from ED?: No Referrals: Olga,Marialuisa, MD [Primary Care Provider] - 1-2 days Time of Disposition: 09:25
[2024-07-08] MEDS: SODIUM CHLORIDE 0.9% 1,000 ML IV ONE (07:56)
[2024-07-08 08:08] LABS: Anisocytosis Slight; Basophils % (A) 0 %; Eosinophils # (A) 0.5 k/uL (0-0.7); Eosinophils % (A) 4 %; HCT 46.7 % (39.0-53.0); HGB 14.1 gm/dL (13.0-17.5); Hypochromasia Slight; Lymphocytes # (A) 1.6 k/uL (1.0-4.8); Lymphocytes % (A) 13 %; MCH 24.2 pg (25.0-35.0); MCHC 30.1 g/dL (31.0-37.0); MCV 80.3 fL (80.0-100.0); Mean Platelet Volume 9.7; Microcytosis Slight; Monocytes # (A) 0.6 k/uL (0-1.0); Monocytes % (A) 5 %; Neutrophils # (A) 9.8 k/uL (1.3-7.7); Neutrophils % (A) 77 %; Platelet Count 134 k/uL (150-450); RBC 5.81 m/uL (4.30-5.90); RDW 18.3 % (11.5-15.5); WBC 12.7 k/uL (3.8-10.6)
[2024-07-08 08:18] LABS: INR 1.1 (<1.2); Partial Thromboplastin Time 25.4 sec (22.0-30.0); Prothrombin Time 11.6 sec (10.0-12.5)
[2024-07-08] MEDS: ONDANSETRON 4 MG/2 ML VIAL IVP STA (08:19)
[2024-07-08] MEDS: PANTOPRAZOLE 40 MG/10 ML VIAL IVP STA (08:21)
[2024-07-08] MEDS: HYDROmorphone 0.5 MG/0.5 ML SYRINGE IVP STA ×2 (08:23→09:54)
[2024-07-08 08:30] LABS: ALT 85 U/L (4-49); AST 61 U/L (17-59); African American GFR (CKD) >90 (>60 ml/min/1.73 sqM); Albumin 4.2 g/dL (3.5-5.0); Alkaline Phosphatase 253 U/L (38-126); Amylase 47 U/L (30-110); Anion Gap 11 mmol/L; Blood Urea Nitrogen 18 mg/dL (9-20); Carbon Dioxide 22 mmol/L (22-30); Chloride 103 mmol/L (98-107); Glucose 286 mg/dL (74-99); Lipase 115 U/L (23-300); Non-African American GFR(CKD) >90 (>60 ml/min/1.73 sqM); Potassium 4.3 mmol/L (3.5-5.1); Sodium 136 mmol/L (137-145); Total Bilirubin 0.7 mg/dL (0.2-1.3)
--- NOTE | 2024-07-08 09:11 | CT ---
EXAMINATION TYPE: CT abdomen pelvis w con CT DLP: 2324 mGycm, Automated exposure control for dose reduction was used. DATE OF EXAM: 07/08/2024 8:55 AM COMPARISON: Multiple CT Abdomen Pelvis with most recent 03/21/2024 CLINICAL INDICATION:Male, 49 years old with history of LUQ/epigastric ab pain; epigastric pain, ,LUQ pain, history of pancreatitis TECHNIQUE: Standard CT of the abdomen and pelvis following the administration of 100 cc of Isovue 3 00 IV contrast material. Coronal and sagittal reformats were performed. FINDINGS: LOWER CHEST: Right middle lobe calcified granuloma. Mildly prominent heart. Couple small pericardial lymph nodes redemonstrated. ABDOMEN LIVER: No focal lesion. Cirrhotic morphology to the liver. Portal venous system is patent. GALLBLADDER AND BILE DUCTS: The gallbladder is surgically absent. No biliary ductal dilatation. PANCREAS: No pancreatic duct dilatation. Coil embolization material adjacent to the pancreatic body. There is streak artifact which limits evaluation of the surrounding structures. No discrete peripancr eatic fluid collection or inflammatory changes. SPLEEN: Enlarged measuring 17.5 cm in AP dimension. Previously 16.8 cm. Few calcified granulomas. ADRENAL GLANDS: Unremarkable. KIDNEYS AND URETERS: No evidence of hydronephrosis or renal calculus. The kidneys enhance symmetrical ly. Contrast is demonstrated within both collecting systems on the delayed phase. PELVIS BLADDER: Unremarkable REPRODUCTIVE: Unremarkable. ABDOMEN & PELVIS STOMACH AND BOWEL: Postsurgical changes of the stomach with suture material. Periampullary duodenal d iverticulum.The appendix is not identified. No focal bowel wall thickening or surrounding inflammator y changes. There is some tethering of the splenic flexure adjacent to the colon visualization. No roxy dence of bowel obstruction. PERITONEUM: No evidence of pneumoperitoneum or free fluid. VASCULATURE: No evidence of aortic aneurysm. Left-sided pelvic phleboliths. MUSCULOSKELETAL: No acute osseous abnormalities. Prominent Schmorl's node involving the superior endp late of the T11 vertebral body. LYMPH NODES: No evidence for lymphadenopathy. SOFT TISSUE/ABDOMINAL WALL: Anterior abdominal wall scarring with subcutaneous tissue fat stranding. IMPRESSION: 1. No CT evidence for acute abdominal/pelvic process. 2. Increasing splenomegaly. [facility], , 07/08/2024 9:09 AM
[2024-07-08 10:00] VITALS: BP 147/90; PULSE 94; RESP 22
== END 2024-07-08 10:05 | disposition home or self-care (01) ==
LOC: EC 07:32
DX: R10.13 Epigastric pain (principal); R10.12 Left upper quadrant pain; F17.200 Nicotine dependence, unspecified, uncomplicated; Z88.5 Allergy status to narcotic agent; Z88.8 Allergy status to other drugs, medicaments and biological substances
CPT/HCPCS: 36415; 93005; 80053; 82150; 83605; 83690; 84484; 85025; 85610; 85730; 74177; 99285; 96374; 96375 ×2; 96376; 96361 ×2; J2405; J1171; Q9967; J2470